=== PATIENT | female | born 1960 | race Caucasian/White ===

== ENCOUNTER → 2018-05-13 11:04 | Outpatient (CLI) | payer MEDICAID, SELFPAY ==
--- NOTE | 2018-05-13 10:54 | DI.REPORT_ITS ---
SYMPTOMS/DIAGNOSIS: S/P RT RTC REPAIR RIGHT SHOULDER: Two views. Comparison is 04/01/18. The patient is status post rotator cuff tear. The orthopedic screw appears in good position. No acute fracture or dislocation is identified. Prior AC joint resection is noted. The soft tissues are unremarkable.
== END ==
PROVIDERS: PCP Nurse Practitioner Family; Visit Provider Physician Assistant
DX: M75.121 Complete rotator cuff tear or rupture of right shoulder, not specified as traumatic (principal); Z98.890 Other specified postprocedural states
CPT/HCPCS: 73030

== ENCOUNTER 2018-08-07 00:53 | Outpatient (CLI) | payer MEDICAID, SELFPAY ==
--- NOTE | 2018-08-07 10:45 | DI.MRI_ITS ---
SYMPTOM/DIAGNOSIS: LT HIP PAIN, FAILED CONSERVATIVE TREATMENT LEFT HIP MRI: MRI examination of the hip was performed according to the usual protocol. Soft tissue structures of the pelvis internally are unremarkable with no evidence of a pelvic mass or adenopathy. No inguinal adenopathy is seen. Bony signal in the pelvis is within normal limits. The hip joints are well maintained. No femoral bony signal abnormality is seen. The ligaments, tendons and muscles show normal signal. CONCLUSION: Normal left hip MRI.
== END 2018-08-07 01:13 ==
PROVIDERS: PCP Nurse Practitioner Family; Visit Provider Student in an Organized Health Care Education/Training Program
DX: M25.552 Pain in left hip (principal)
CPT/HCPCS: 73721

== ENCOUNTER 2018-12-12 00:48 | Outpatient (CLI) | payer MEDICAID, SELFPAY ==
[2018-12-12 11:35] LABS: Hemoglobin A1C 5.8 % (4.5-6.2)
[2018-12-12 12:01] LABS: Anion Gap 10.2 mmol/L (3-11); BUN 12 mg/dL (7-18); CO2 24.8 mmol/L (21.0-32.0); CREATININE 0.77 mg/dL (0.55-1.02); Calcium 8.9 mg/dL (8.5-10.1); Chloride 104 mmol/L (98-107); Glucose 95 mg/dL (70-100); Potassium 3.7 mmol/L (3.5-5.1); Sodium 139 mmol/L (136-145); TSH 2.38 uIU/mL (0.358-3.74)
== END 2018-12-12 01:08 ==
PROVIDERS: PCP Nurse Practitioner Family; Visit Provider Internal Medicine
DX: I10 Essential (primary) hypertension (principal); R73.03 Prediabetes; E03.9 Hypothyroidism, unspecified
CPT/HCPCS: 36415; 80048; 83036; 84443

== ENCOUNTER 2018-12-20 07:59 | Outpatient (CLI) | payer MEDICAID, SELFPAY ==
--- NOTE | 2018-12-20 09:13 | HPE_ITS ---
Documented by User: Evonne Love 12/20/18 16:11 Assessment and Plan (1) Trochanteric bursitis, left hip: Current visit: No Status: Acute Plan: Reviewed and discussed surgery with patient in detail. Educated patient on surgical technique, recovery process, benefits and risks including but not limited to risk of infection, blood clot, damage to soft tissue/blood vessels/nerves in detail. Patient had opportunity to have questions answered to her satisfaction. Patient will contact office if issues arise, she will continue to be scheduled for left trochanteric bursa debridement and IT band lengthening with Dr. Perez on 12/24/17. History of Present Illness Narrative: Ms. Yi is a 58-year-old female who presents to clinic for preoperative visit for scheduled left trochanteric bursa debridement and IT band lengthening with Dr. Perez on 12/24/18. Patient has history of recalcitrant left trochanteric bursitis. Patient had MRI of her left hip which as per Dr. Perez's note on 09/04/18 showed signs of bursitis with no selwyn hip tearing; there was partial tearing of the gluteus medius tendon noted. At this point patient states she has had trochanteric bursitis of her left hip that aggravated her intermittently for years. Over the past year patient has had constant aching located on the posterior lateral aspect of her left hip has begun to ache down the lateral aspect of her leg. Pain is aggravated when laying on her side, with prolonged sitting and severely at night. Patient reports she frequently wakes up in the middle night due to her left-sided hip pain. Patient has previously attended physical therapy in the past and transitioned to home-based therapy program without improvement. She has previously tried taking ibuprofen 800 mg without improvement. Patient reports previously when she would wake up in the middle the night she had a prescription for Vicodin that she would take and which helped to provide pain relief. Patient reports she no longer has a prescription for Vicodin and that she also would experience GI upset with taking Vicodin on a regular basis. Patient has also previously had trochanteric bursal injections in clinic on 04/01/18 and 07/10/18 which unfortunately did not provide long-lasting relief. Due to patient's continued left trochanteric bursitis despite adequate trials of conservative therapies including NSAIDs, physical therapy and two corticosteroid injections she elected to proceed with surgical intervention. Pertinent Surgical Information Patient has history of cardiac catheterization at [facility] on November 06, 2017 which as per cardiology notes showed normal left main, mild diffuse disease in the LAD, normal circumflex and mild diffuse disease in the RCA that has been managed with aspirin and atorvastatin. Patient continues to have occasional atypical chest pain that lasts for approximately a minute before resolving. As per cardiology note on 12/19/18 12-lead EKG revealed normal sinus rhythm with no abnormalities. Patient was given cardiology clearance by Dr. Cody Martinez MD on 12/19/18. At that appointment Dr. Martinez recommended patient stay on aspirin and atorvastatin, however he stated if needed aspirin could be held 5-7 days prior to surgery and then resumed following surgery. Patient does have history of obstructive sleep apnea but states she does not currently use the recommended machine at night. Patient reports adhesive including Mastisol adhesive causes her to have severe rash and hives. Patient is unsure if she has reaction to SkinAffix. Review of patient's chart shows on 04/17/18 her right rotator cuff surgery was dressed with Steri-Strips and Medipore tape. Patient does not feel she had a reaction following that surgery. Review of patient's chart does not list any skin changes over her incisions; note from 06/12/18 does state there was increased sensitivity over anterior portal site but no rash/hives were mentioned. Denies past medical history of: stroke, COPD, renal issues, liver issues, hepatitis, gastrointestinal ulcers, bleeding disorders, seizures, anxiety, diabetes, autoimmune disorders Patient reports she has previously experienced nausea and vomiting following anesthesia; unable to provide more details regarding when she experienced advers e reactions. She did not experience any adverse reactions following anesthetic received from right rotator cuff surgery on 04/17/18. Denies prior complications from surgery. Review of Systems Constitutional Denies fever(s), Denies frequent falls and Denies headache(s) Eyes Denies change in vision, Denies eye discharge and Reports itchy eyes (left eye itchy for the past day) ENT Reports dizziness (Dizziness at baseline takes meclizine; denies recent change), Denies ear discharge, Denies headache(s), Denies epistaxis, Denies nasal discharge and Denies sore throat Cardiovascular Reports chest pain (history of atypical chest pain; sees cardiology-received cardiac clearance), Denies rapid heart rate, Denies irregular heart rhythm, Denies dyspnea, Denies dyspnea on exertion and Denies slow heart rate Comments: Denies any recent change in cardiac symptoms; denies ever using nitroglycerin Respiratory Reports cough (Dry cough at baseline; denies recent change), Denies excessive phlegm production, Denies dyspnea, Denies dyspnea on exertion and Denies wheezing Gastrointestinal Denies abdominal pain, Denies melena, Denies hematochezia, Denies constipation, Denies diarrhea, Denies nausea and Denies vomiting Genitourinary Denies hematuria, Denies dysuria and Denies urinary urgency Musculoskeletal Reports as per HPI, Denies numbness and Denies tingling Neurologic Reports dizziness (Dizziness at baseline takes meclizine; denies recent change), Denies frequent falls, Denies headache(s), Denies numbness and Denies tingling Psychiatric Denies anxiety and Denies depression Allergic/Immunologic Reports itchy eyes (left eye itchy for the past day) and Denies wheezing PFSH Social History Smoking/Tobacco Use Status: Former Tobacco Use Pack-years: 12 Alcohol Intake: never Drug use: Never Substance use type: does not use Household members: spouse Do you feel safe at home: Yes Do you feel safe in your relationship?: Yes Additional Social history: Quit smoking 1985 [facility] Medications Medication Instructions Recorded Confirmed Type citalopram [Celexa] 20 mg PO DAILY tab-cap 10/08/13 12/24/18 History meclizine 25 mg PO TID PRN tab-cap 10/08/13 12/24/18 History rosuvastatin [Crestor] 40 mg PO DAILY tab-cap 10/08/13 12/24/18 History topiramate 50 mg PO HS 10/08/13 12/24/18 History epinephrine 0.3 mg IJ PRN PRN #1 kit 07/21/16 12/24/18 Rx acyclovir 200 mg PO DIRECTED PRN 06/01/17 12/24/18 History sumatriptan succinate 50 mg PO DIRECTED PRN tab-cap 06/01/17 12/24/18 History levothyroxine 75 mcg PO DAILY tab-cap 06/05/17 12/24/18 History lisinopril 2.5 mg PO DAILY tab-cap 12/03/17 12/24/18 History nitroglycerin 0.4 mg SUBLINGUAL DIRECTED 12/31/17 12/24/18 History aspirin 81 mg PO DAILY tab 01/21/18 12/24/18 History acetaminophen [Acetaminophen Extra 500 mg PO Q8H PRN PRN #60 tab 04/16/18 12/24/18 Rx Strength] cetirizine 10 mg PO DAILY 12/20/18 12/24/18 History fluticasone propionate 2 spray INTRANASAL BID 12/20/18 12/24/18 History hydrocodone-acetaminophen 1 tab PO Q4H PRN #14 tab 12/24/18 Rx ibuprofen 800 mg PO Q8H PRN PRN #60 tab 12/24/18 Rx Allergies Allergy/AdvReac Type Severity Reaction Status Date / Time amoxicillin Allergy Intermediate Skin Rash Verified 12/24/18 09:33 morphine Allergy Intermediate ITCHY, SICK Verified 12/24/18 09:33 peanut Allergy Intermediate nausea Verified 12/24/18 09:33 tetrabenazine Allergy Intermediate RASH,HIVES Verified 12/24/18 09:33 adhesive AdvReac Intermediate RASH AND Verified 12/24/18 09:33 SWELLING alcohol AdvReac Intermediate RASH Verified 12/24/18 09:33 [From Mastisol Liquid Adhesive] gum mastic AdvReac Intermediate RASH Verified 12/24/18 09:33 [From Mastisol Liquid Adhesive] methyl salicylate AdvReac Intermediate RASH Verified 12/24/18 09:33 [From Mastisol Liquid Adhesive] storax AdvReac Intermediate RASH Verified 12/24/18 09:33 [From Mastisol Liquid Adhesive] tree nut AdvReac Intermediate itchy Verified 12/24/18 09:33 water eyes, scratchy throat benzoin AdvReac Mild Skin Rash Verified 12/24/18 09:33 cat dander AdvReac Mild WATERY EYES Verified 12/24/18 09:33 milk AdvReac Unknown Verified 12/24/18 09:33 pollen extracts AdvReac Unknown watery eyes Verified 12/24/18 09:33 dog dander AdvReac WATERY EYES Verified 12/24/18 09:33 RAW FRUIT Allergy Unknown Uncoded 12/20/18 11:42 DUST AdvReac Unknown Uncoded 12/20/18 11:42 Exam Const General: cooperative and no acute distress HENMT Head: normal to inspection, normocephalic and atraumatic Ears: external ears normal General nose exam: external nose normal and no nasal discharge Face and sinus: face symmetric Mouth: oral mucosae normal, lip normal, tongue normal and moist mucous membranes Teeth and gingiva: dentition normal Throat: posterior oropharynx normal Eyes General: appearance normal, both eyes and all related structures Eyelids: eyelids normal Conjunctivae: conjunctivae normal Sclera: sclerae normal Pupils: PERRL EOM: EOM intact bilaterally Other: No signs of erythema or purulent discharge noted; no crusting is present on eyelashes Neck Neck: trachea midline Carotids: normal carotid upstroke Lymphatic: no lymphadenopathy noted Resp Effort & Inspection: normal respiratory effort and able to speak in complete sentences Auscultation: clear to auscultation bilaterally, no rales, no rhonchi and no wheezes Cardio Heart Sounds: S1 normal, S2 normal, no murmurs, no rubs and no other Pulses: radial pulses present bilaterally GI Palpation: soft, no hepatosplenomegaly and nontender Auscultation: normal bowel sounds Skin General skin exam: no rashes or lesions noted Extrem Other: Left hip examination: Tenderness to palpation along greater trochanter an d along length of IT band. Documented by User: Coy Perez MD 12/24/18 14:58 [facility] Social History Smoking/Tobacco Use Status: Former Tobacco Use Pack-years: 12 Alcohol Intake: never Drug use: Never Substance use type: does not use Household members: spouse Do you feel safe at home: Yes Do you feel safe in your relationship?: Yes Additional Social history: Quit smoking 1985 Meds Home Medications Medication Instructions Recorded Confirmed Type citalopram [Celexa] 20 mg PO DAILY tab-cap 10/08/13 12/24/18 History meclizine 25 mg PO TID PRN tab-cap 10/08/13 12/24/18 History rosuvastatin [Crestor] 40 mg PO DAILY tab-cap 10/08/13 12/24/18 History topiramate 50 mg PO HS 10/08/13 12/24/18 History epinephrine 0.3 mg IJ PRN PRN #1 kit 07/21/16 12/24/18 Rx acyclovir 200 mg PO DIRECTED PRN 06/01/17 12/24/18 History sumatriptan succinate 50 mg PO DIRECTED PRN tab-cap 06/01/17 12/24/18 History levothyroxine 75 mcg PO DAILY tab-cap 06/05/17 12/24/18 History lisinopril 2.5 mg PO DAILY tab-cap 12/03/17 12/24/18 History nitroglycerin 0.4 mg SUBLINGUAL DIRECTED 12/31/17 12/24/18 History aspirin 81 mg PO DAILY tab 01/21/18 12/24/18 History acetaminophen [Acetaminophen Extra 500 mg PO Q8H PRN PRN #60 tab 04/16/18 12/24/18 Rx Strength] cetirizine 10 mg PO DAILY 12/20/18 12/24/18 History fluticasone propionate 2 spray INTRANASAL BID 12/20/18 12/24/18 History hydrocodone-acetaminophen 1 tab PO Q4H PRN #14 tab 12/24/18 Rx ibuprofen 800 mg PO Q8H PRN PRN #60 tab 12/24/18 Rx Allergies Allergy/AdvReac Type Severity Reaction Status Date / Time amoxicillin Allergy Intermediate Skin Rash Verified 12/24/18 09:33 morphine Allergy Intermediate ITCHY, SICK Verified 12/24/18 09:33 peanut Allergy Intermediate nausea Verified 12/24/18 09:33 tetrabenazine Allergy Intermediate RASH,HIVES Verified 12/24/18 09:33 adhesive AdvReac Intermediate RASH AND Verified 12/24/18 09:33 SWELLING alcohol AdvReac Intermediate RASH Verified 12/24/18 09:33 [From Mastisol Liquid Adhesive] gum mastic AdvReac Intermediate RASH Verified 12/24/18 09:33 [From Mastisol Liquid Adhesive] methyl salicylate AdvReac Intermediate RASH Verified 12/24/18 09:33 [From Mastisol Liquid Adhesive] storax AdvReac Intermediate RASH Verified 12/24/18 09:33 [From Mastisol Liquid Adhesive] tree nut AdvReac Intermediate itchy Verified 12/24/18 09:33 water eyes, scratchy throat benzoin AdvReac Mild Skin Rash Verified 12/24/18 09:33 cat dander AdvReac Mild WATERY EYES Verified 12/24/18 09:33 milk AdvReac Unknown Verified 12/24/18 09:33 pollen extracts AdvReac Unknown watery eyes Verified 12/24/18 09:33 dog dander AdvReac WATERY EYES Verified 12/24/18 09:33 RAW FRUIT Allergy Unknown Uncoded 12/20/18 11:42 DUST AdvReac Unknown Uncoded 12/20/18 11:42
== END 2018-12-20 08:19 ==
PROVIDERS: PCP Nurse Practitioner Family; Visit Provider Student in an Organized Health Care Education/Training Program
DX: M70.62 Trochanteric bursitis, left hip (principal); Z01.818 Encounter for other preprocedural examination
CPT/HCPCS: NC

== ENCOUNTER 2018-12-24 09:20 | Day surgery (SDC) | payer MEDICAID, SELFPAY ==
[2018-12-24] VITALS (10 sets, daily range): BP systolic 94–124; BP diastolic 55–80; PULSE 77–89; RESP 16–18; TEMP 35.7–36.9; O2SAT 88–96
[2018-12-24] MEDS: Lactated Ringers 1,000 ML 80 ML IV (10:03)
[2018-12-24] MEDS: Acetaminophen 500 MG TAB 1000 MG PO (11:02)
[2018-12-24] MEDS: Celecoxib 200 MG CAP 400 MG PO (11:03)
[2018-12-24] MEDS: ceFAZolin 2 GM/50 ML BAG IVPB (11:39)
[2018-12-24] MEDS: Bupivacaine 0.25% Pres-Free 30 ML VIAL (12:19)
--- NOTE | 2018-12-24 13:57 | W.PM.DSUDISC ---
Discharge Plan Disposition Patient Disposition: HOME Condition: Good Discharge Details Reason For Visit: (L) TROCH BURSITIS Attending Provider: Coy Perez Primary Care Provider: Jennifer Gallagher Home Meds and New Rx's Prescriptions: New hydrocodone-acetaminophen 5-325 mg tablet 1 tab PO Q4H PRN (Reason: pain) Qty: 14 RF: 0 Continued citalopram [Celexa] 10 MG tablet 20 mg PO DAILY RF: 0 meclizine 12.5 MG tablet 25 mg PO TID PRNRF: 0 rosuvastatin [Crestor] 20 MG tablet 40 mg PO DAILY RF: 0 topiramate 50 MG tablet 50 mg PO HS RF: 0 sumatriptan succinate 50 MG tablet 50 mg PO DIRECTED PRNRF: 0 acyclovir 200 MG capsule 200 mg PO DIRECTED PRNRF: 0 levothyroxine 75 MCG tablet 75 mcg PO DAILY RF: 0 lisinopril 2.5 MG tablet 2.5 mg PO DAILY RF: 0 aspirin 81 MG tablet,delayed release (DR/EC) 81 mg PO DAILY RF: 0 epinephrine 0.3 MG/SYR auto-injector 0.3 mg IJ PRN PRN (Reason: Anaphylaxis) Qty: 1 RF: 0 nitroglycerin 0.4 MG tablet, sublingual 0.4 mg Sublingual DIRECTED RF: 0 acetaminophen [Acetaminophen Extra Strength] 500 MG tablet 500 mg PO Q8H PRN PRNQty: 60 RF: 3 cetirizine 10 mg Tablet 10 mg PO DAILY RF: 0 fluticasone propionate 50 mcg/actuation [place],Suspension 2 spray INTRANASAL BID RF: 0 ibuprofen 800 MG tablet 800 mg PO Q8H PRN PRNQty: 60 RF: 3 Discharge Instructions Additional Instructions: Dr. Perez?s Hip Discharge Instructions Activity: You should try to take short walks a few times a day. You should use a walker or two crutches for the first 2 weeks to support the healing tissue. You should take stairs one at a time. You may walk but limit any strenuous activity especially squatting or getting up from a low chair. - Outpatient physical therapy should start at 2 weeks post-op. Dressing: Keep the surgical dressing in place for at least one week. After the first week it may be removed and replace with light gauze and tape or nothing. It may get wet after 3 days but avoid soaking the dressing. If it gets wet, just lightly pat dry. Medications: - You should take Tylenol and an anti-inflammatory Ibuprofen as your primary pain control medications - You have been prescribed a stronger pain medication Hydrocodone for breakthrough pain, take as needed as prescribed. - If you have constipation you should take Colace or Miralax (both [id number]). It takes most people 3-4 days to have a bowel movement. Follow-up: 2 weeks Referrals: Coy Preez MD [ [facility] STAFF PHYSICIAN] - Equipment/Supplies: Partial Weight Bearing Crutches Remove Dressings/Wound Care:: 72 hours Shower/Bathe:: 72 hours Diet:: As Tolerated Discharge Orders Discharge Orders: Discharge Order (Routine); Ordered 12/24/18 Ordered By: Coy Perez DS: Diagnosis Discharge Diagnosis (1) Trochanteric bursitis of right hip: Status: Chronic
--- NOTE | 2018-12-24 17:48 | NUR.NOTE ---
Pt admitted to med/surg from Day Surgery to recover and go home. Nursing Note:
--- NOTE | 2018-12-25 12:08 | ROE_ITS ---
REPORT OF OPERATIVE PROCEDURE DATE OF SURGERY December 24, 2018 PREOPERATIVE DIAGNOSIS Left recalcitrant trochanteric bursitis. POSTOPERATIVE DIAGNOSIS Left recalcitrant trochanteric bursitis. SURGERY Surgical debridement of the left trochanteric bursa with IT band tenotomy. SURGEON Coy Perez M.D. PHOTOGRAPHIC EQUIPMENT TECHNICIAN Devin Jung PA-C ANESTHESIA Spinal. ESTIMATED BLOOD LOSS 50 cc COMPLICATIONS None. DISPOSITION The patient was awakened from anesthesia and taken the Post Anesthesia Care Unit in stable condition. INDICATION FOR PROCEDURE Anay is a 58-year old who has had persistent left trochanteric bursitis. She has failed conservative t reatment options including physical therapy on multiple occasions. She has had multiple injections, w hich have provided her relief, but only short term. She continued to have limitations on her daily fu nction due to this pain. She failed all conservative treatment options and desired for something more definitive. I reviewed the treatment options with her. Surgical intervention was discussed. I review ed the risks of the procedure to include, bleeding, infection, pain, stiffness, damage to nerve and v essels, damage to muscles and tendons, weakness, need for repeat procedures. Despite these risks, pranay thompson elected to proceed. PROCEDURE DESCRIPTION Anay was greeted in the Preoperative Holding Area. Her identity was confirmed, and the correct side w as identified and marked. The consent was reviewed with the patient and signed. The history and phys ical were updated. She was taken back to the Operating Room and placed in the supine position. Prior to starting the case, a spinal anesthetic was administered. Once the spinal had a chance to set up, she was given some sedation and then placed into the right lateral decubitus position for the left hi p surgery. Prophylactic antibiotics in the form of cefazolin were given. The left hip was then prepped with Chlo raPrep and draped in standard fashion. A timeout was performed for safe surgery. An approximately 12-cm incision was made overlying the greater trochanter and the posterior hip. This was incised sharply through the skin and the fat down towards the IT band and the gluteus fascia. On ce this was identified and marked, an incision within the iliotibial band and fascia was created. Att ention was turned to the posterior aspect of the hip. There was a significant amount of bursitis in t he area. This was reflected and dissected sharply. Once this was fully removed, the abductor tendons were able to be identified. There was no apparent tearing of the abductor tendons. There was some kira ny prominence over the posterior aspect of the greater trochanter, which was smoothed with a rongeur. The under surface of the abductor tendons were also palpated and identified and I saw no signs of ru pture. This wound was then thoroughly irrigated. The IT band was then re-approximated with #1-Vicryls . After reapproximation, the point of maximal tightness overlying the area of the trochanter at the l evel of the vastus ridge was then incised transversely. This allowed the IT band to separate approxi mately 1.5 cm. It was still held in place by muscular attachments. The wound was once again irrigated . The deep tissues were injected with 10 cc of Exparel, along with 10 cc of 0.5% bupivacaine. The cris p tissues were closed with #0-Vicryl, followed by #2-0 Vicryl, and the skin was closed with a runnin g Monocryl in a subcuticular fashion. A Mepilex dressing was applied. She was then transitioned back to supine position over to the hospital bed. She suffered no notable c omplications. She tolerated the procedure well. She was taken to the Day Surgery Area in stable condi tion.
== END 2018-12-24 18:55 | disposition home or self-care (01) ==
LOC: SUR 13:57 → MS 17:45
PROVIDERS: PCP Nurse Practitioner Family; Visit Provider Student in an Organized Health Care Education/Training Program
PROC: (CPT 27062; principal; 2018-12-24 10:45)
PROC: (CPT 27062; 2018-12-24 10:45)
DX: M70.62 Trochanteric bursitis, left hip (principal); G47.33 Obstructive sleep apnea (adult) (pediatric)
CPT/HCPCS: 27062; 27305; J0690; J1100; J1200; J1885; J2250; J2405; J3010; J3490

== ENCOUNTER 2019-02-12 01:55 | Outpatient (CLI) | payer MEDICAID, SELFPAY ==
[2019-02-12 10:50] LABS: Cholesterol 156 mg/dL (50-200); HDL Cholesterol 39 mg/dL (40-60); LDL CHOLESTEROL 93 mg/dL (<100); Triglyceride 111 mg/dL (30-150)
[2019-02-13 09:58] LABS: Hepatitis C Ab w Rflx HCV PCR Negative (NEGAT)
== END 2019-02-12 02:15 ==
PROVIDERS: PCP Internal Medicine; Visit Provider Internal Medicine
DX: Z11.59 Encounter for screening for other viral diseases (principal); E78.5 Hyperlipidemia, unspecified
CPT/HCPCS: 36415; 80061; 83721; 86803

== ENCOUNTER 2019-03-04 00:16 | Outpatient (CLI) | payer MEDICAID, SELFPAY ==
--- NOTE | 2019-03-04 15:50 | DI.DEXA_ITS ---
SYMPTOM/DIAGNOSIS: SCREENING FOR OSTEOPOROSIS, Z13.820 DEXA SCAN: A scanogram is unremarkable. For the lumbar spine, a T score of -1.0 and a Z score of 0.4 are within the normal range. For the left forearm, a T score of -0.3 and a Z score of 0.8 are also within the normal range.
== END 2019-03-04 00:36 ==
PROVIDERS: PCP Internal Medicine; Visit Provider Internal Medicine
DX: Z13.820 Encounter for screening for osteoporosis (principal)
CPT/HCPCS: 77080

== ENCOUNTER 2019-08-04 14:30 | Outpatient (CLI) | payer MEDICAID, SELFPAY ==
--- NOTE | 2019-08-04 14:20 | DI.RAD_ITS ---
EXAM: XR SHOULDER LT COMPLETE 2+V INDICATION: left shoulder pain. COMPARISON: RIGHT SHOULDER COMPLETE from 05/13/2018 TECHNIQUE: 2D digital imaging was performed. FINDINGS: The AC joint appears intact. There is no significant spurring. The glenohumeral joint is well maint ained. There is some spurring at the inferior glenoid. No tendon or joint space calcifications are seen. IMPRESSION: Mild degenerative changes of the glenohumeral joint.
== END 2019-08-04 14:50 ==
PROVIDERS: PCP Internal Medicine; Visit Provider Physician Assistant
DX: M25.512 Pain in left shoulder (principal); M19.012 Primary osteoarthritis, left shoulder
CPT/HCPCS: 73030

== ENCOUNTER 2019-09-09 01:15 | Outpatient (CLI) | payer MEDICAID, SELFPAY ==
--- NOTE | 2019-09-09 11:30 | DI.MRI_ITS ---
EXAM: MR UPPER JOINT LT WO CLINICAL HISTORY: PAIN AND WEAKNESS OF LEFT SHOULDER, TENDINITIS OF LEFT ROTATOR CUFF, M75.82. TECHNIQUE: Multiplanar multisequence MRI was performed. COMPARISON: No previous for comparison FINDINGS: Supraspinatus tendon: There does appear to be a large articular surface tear of the supraspinatus ten don anteriorly. Infraspinatus tendon: Unremarkable. Teres minor tendon: Unremarkable. Subscapularis tendon: Unremarkable. Biceps tendon: Normal appearance and location. Labrum: Abnormal signal and size of the posterior superior labrum. This may represent degeneration. Tear cannot be excluded. Bones: Mild degenerative changes are seen at the acromioclavicular joint and the greater tuberosity. No evidence of an occult fracture or avascular necrosis. Joint: The articular cartilage appears unremarkable. Muscles: No evidence of significant muscular fatty atrophy. Soft tissues: No soft tissue mass or focal fluid collection is appreciated. IMPRESSION: 1. Large articular surface tear of the supraspinatus tendon anteriorly. 2. Degeneration versus tear of the superior posterior labrum. 3. Degenerative changes in the left shoulder.
== END 2019-09-09 01:35 ==
PROVIDERS: PCP Internal Medicine; Visit Provider Student in an Organized Health Care Education/Training Program
DX: M25.512 Pain in left shoulder (principal); M75.82 Other shoulder lesions, left shoulder; M75.102 Unspecified rotator cuff tear or rupture of left shoulder, not specified as traumatic; M19.012 Primary osteoarthritis, left shoulder
CPT/HCPCS: 73221

== ENCOUNTER 2019-10-16 01:29 | Outpatient (CLI) | payer MEDICAID, SELFPAY ==
--- NOTE | 2019-10-16 | DI.RAD_ITS ---
EXAM: RF JOINT INJECTION FLUORO GUID CLINICAL HISTORY: PAIN- L SHOULDER,tendonitis lt rotator cuff,m75.82,injection under fluoro TECHNIQUE: COMPARISON: No exams were available for comparison FINDINGS: Fluoroscopy was utilized by Dr. Perez during left glenohumeral joint injection. Hard copy shows i ntra-articular injection. IMPRESSION:
--- NOTE | 2019-10-16 13:21 | W.PROCNOTE ---
Date of service: 10/16/19 Time of Service: 13:21 Procedure Note Date of procedure: 10/16/19 Procedure: Left Shoulder Injection Surgeon/Proceduralist/Physician: Coy Perez Procedure Diagnosis: Left Partial Rotator Cuff Tear Procedure Indications: Anay has had persistent pain of the LEFT shoulder. Noninvasive measures have been tried. To serve as both diagnostic and therapeutic, an injection under fluoroscopy was recommended. I had discussed the risks of the procedure and the patient elected to proceed. Procedure Description: Anay was greeted in the flouroscopy room. The correct side was identified and the consent was reviewed with the patient and signed. The patient was then placed in the supine position on the fluoroscopy table. The LEFT shoulder was then prepped with Chloraprep. The anterior injection starting point was identiifed by bony landmarks and fluoroscopy. The skin and soft tissue in the tract of the injection was anesthetized with 1% Lidocaine. A spinal needle was then inserted deep into the shoulder joint at the level of the recess between the glenoid and superior humeral head. A small amount of Omnipaque solution was injected to confirm intraarticular placement. Once confirmed, the shoulder was injected with 4cc of 0.5% Bupivicaine and 80mg of Depo-Medrol. A bandaid was placed on the injection site. The patient tolerated the procedure well and noted improvement in pre-injection pain.
[2019-10-16] MEDS: Bupivacaine 0.5% Pres-Free 10 ML VIAL 5 ML IJ (14:31)
[2019-10-16] MEDS: Omnipaque 300 MG/ML 10 ML BTL IJ (14:31)
[2019-10-16] MEDS: methylPREDNISolone ACETATE 80 MG/ML VIAL IM (14:32)
== END 2019-10-16 01:49 ==
PROVIDERS: PCP Internal Medicine; Visit Provider Student in an Organized Health Care Education/Training Program
DX: M25.512 Pain in left shoulder (principal); M75.82 Other shoulder lesions, left shoulder; M75.112 Incomplete rotator cuff tear or rupture of left shoulder, not specified as traumatic
CPT/HCPCS: 20610; 77002; J1040

== ENCOUNTER 2020-03-19 07:28 | Outpatient (CLI) | payer MEDICAID, SELFPAY ==
[2020-03-19 22:28] LABS: COVID-19 RT-PCR UVMMC Result Negative (Negative)
== END 2020-03-19 07:48 ==
PROVIDERS: PCP Internal Medicine; Visit Provider Student in an Organized Health Care Education/Training Program
DX: Z11.51 Encounter for screening for human papillomavirus (HPV) (principal); Z01.818 Encounter for other preprocedural examination
CPT/HCPCS: U0003

== ENCOUNTER 2020-03-23 08:19 | Day surgery (SDC) | payer MEDICAID, SELFPAY ==
[2020-03-23 08:38] VITALS: BP 138/81; PULSE 72; RESP 16; TEMP 36.3; O2SAT 98
--- NOTE | 2020-03-23 09:26 | PDOC.DSDIS_ITS ---
Discharge Plan Disposition Patient Disposition: HOME Condition: Good Discharge Details Reason For Visit: Bilateral Carpal Tunnel Syndrome Attending Provider: Coy Perez Primary Care Provider: Kerry Ascencio Home Meds and New Rx's Prescriptions: Continued ibuprofen 800 mg tablet 800 mg PO Q8H PRN PRN (Reason: pain) Qty: 60 RF: 3 citalopram [Celexa] 10 MG tablet 20 mg PO DAILY RF: 0 meclizine 12.5 MG tablet 25 mg PO TID PRNRF: 0 rosuvastatin [Crestor] 20 MG tablet 40 mg PO DAILY RF: 0 topiramate 50 MG tablet 50 mg PO HS RF: 0 sumatriptan succinate 50 MG tablet 50 mg PO DIRECTED PRNRF: 0 acyclovir 200 MG capsule 200 mg PO DIRECTED PRNRF: 0 levothyroxine 75 MCG tablet 75 mcg PO DAILY RF: 0 lisinopril 2.5 MG tablet 2.5 mg PO DAILY RF: 0 aspirin 81 MG tablet,delayed release (DR/EC) 81 mg PO DAILY RF: 0 epinephrine 0.3 MG/SYR auto-injector 0.3 mg IJ PRN PRN (Reason: Anaphylaxis) Qty: 1 RF: 0 nitroglycerin 0.4 MG tablet, sublingual 0.4 mg Sublingual DIRECTED RF: 0 cetirizine 10 mg Tablet 10 mg PO DAILY RF: 0 sennosides [senna] 8.6 mg Tablet 8.6 mg PO DAILY RF: 0 acetaminophen [Tylenol Arthritis Pain] 650 mg tablet extended release 650 mg PO Q8H Qty: 60 RF: 0 Changed tramadol 50 mg tablet 50 mg PO Q6H PRN PRN (Reason: pain) Qty: 12 RF: 0 celecoxib 100 mg capsule 100 mg PO BIDWMEAL Qty: 60 RF: 0 Discharge Instructions Stand Alone Forms: Chris Jose Tunnel Release Referrals: Coy Perez MD [ [facility] STAFF PHYSICIAN] - Activity:: Elevate Remove Dressings/Wound Care:: 72 hours Shower/Bathe:: 72 hours Diet:: As Tolerated Discharge Orders Discharge Orders: Discharge Order (Routine); Ordered 03/23/20 Ordered By: Coy Perez DS: Diagnosis Discharge Diagnosis (1) Left carpal tunnel syndrome: Status: Acute (2) Right carpal tunnel syndrome: Status: Acute
[2020-03-23] MEDS: Lactated Ringers 1,000 ML 80 ML IV (09:27)
[2020-03-23] MEDS: ceFAZolin 2 GM/50 ML BAG IVPB (09:27)
--- NOTE | 2020-03-23 09:56 | NUR.NOTE ---
Nursing Note: Right ECTR begun @ 0957. Esmark tourniquet on right arm by Dr. Perez.
[2020-03-23] MEDS: Sodium Bicarbonate 50 MEQ/50 ML VIAL (10:19)
[2020-03-23 10:26] VITALS: BP 116/64; PULSE 71; RESP 20; O2SAT 93
--- NOTE | 2020-03-23 10:27 | W.PM.OP ---
Date of service: 03/23/20 Time of Service: 10:28 Operative Note Operative Note DATE OF PROCEDURE: 03/23/20 PRE-OP DIAGNOSIS: Bilateral Carpal Tunnel Syndrome POST-OP DIAGNOSIS: same PROCEDURE: Bilateral Endoscopic Carpal Tunnel Release SURGEON: Coy Perez ANESTHESIA: JAIRO ESTIMATED BLOOD LOSS: 0 PATHOLOGY: none sent TOURNIQUET TIME: 10 COMPLICATIONS: None Patient was transported to: same day Patient's condition: stable Indications: I have seen Anay in clinic for symptoms of carpal tunnel syndrome. The numbness, tingling, and pain limited function. Clinical exam findings with nerve conduction tests confirmed the diagnosis of bilateral carpal tunnel syndrome. Nonoperative measures such as bracing, time, activity modifications had been tried but disability and pain persisted. I discussed carpal tunnel release with the patient. I reviewed the risks of the procedure to include, but not limited to, bleeding, infection, pain, stiffness, incomplete release, damage to nerves or vessels, persistent numbness, recurrence. Despite these risks, the patient elected to proceed. Findings: There was tightened carpal tunnel. This was dilated and released successfully with the endoscopic with increased space within the tunnel. The antebrachial fascia was released proximally freeing the median nerve at the wrist. This was done first on the left and then completed for the right side. Procedure Description: Anay was greeted in the preoperative holding area where the correct side was identified and marked. The consent was reviewed with the patient and signed. The history and physical was updated. All questions were answered. Anay was taken back to the operating room. The patient was placed into the supine position on the operating room table with the left arm on an arm board to start. A nonsterile tourniquet was placed high onto the arm. All bony prominences were well padded. Prophylactic antibiotics in the form of Cefazolin were administered. The left arm was then prepped with Chloraprep and draped in a standard fashion with stockinette and extremity drape. A timeout to confirm correct identity, side and site, procedure, allergies, anesthesia, and medical concerns was performed. The surgical site was marked in the volar wrist creases in line with the radial border of the fourth ray. This area was anesthetized with approximately 6cc of 1% Lidocaine. The limb was then exsanguinated with an Esmarch. The skin was incised with a 15 blade, approximately 1cm. The skin only was cut and the deeper tissue was dissected bluntly with a tenotomy scissor, avoiding passing nerve and venous structures. The fascia was penetrated and opened bluntly. A two-prong skin hook was placed under this proximal fascial edge. A series of hamate finders were used to identify and dilate the carpal tunnel. Synovial elevator was used to free synovial attachments to the underside of the transverse carpal ligament. My thumb was kept in the palm to charmaine the distal extent of the carpal tunnel and correctly position the hand. The Microaire endoscope was inserted without difficulty and without resistance. Excellent visualization showed horizontally running fibers of the transverse carpal ligament (TCL). The distal extent of the TCL was visualized and the end of the scope palpated with the thumb. The blade was elevated and withdrawn from distal to proximal. The TCL was split into two flaps. The endoscope was reinserted to confirm complete release and any remnant ligament was incised. The scope was withdrawn and the proximal aspect of the carpal tunnel was grossly inspected and appeared release with the median nerve visible. The antebrachial fascia at the level of the wrist was then freed from the overlying skin and then the underlying median nerve with blunt dissection. This was transected longitudinally for about 3cm proximal to the wrist incision. The wound was then irrigated with easy flow of irrigant distally and proximally. The incision was closed with a single 4-0 Nylon suture. The wound was dressed with Xeroform, Gauze, Kerlix. The tourniquet was deflated with the initial dressing and held with some pressure. Blood flow returned easily to all digits with capillary refill less than 2 seconds. While keeping the back table and scope equipment sterile, the right arm was addressed. This was prepped with Chlorprep and draped with an extremity drape. The surgical site was marked in the volar wrist creases in line with the radial border of the fourth ray. This area was anesthetized with approximately 6cc of 1% Lidocaine. The limb was then exsanguinated with an Esmarch and an Esmarch tourniquet was applied for 5 minutes. The skin was incised with a 15 blade, approximately 1cm. The skin only was cut and the deeper tissue was dissected bluntly with a tenotomy scissor, avoiding passing nerve and venous structures. The fascia was penetrated and opened bluntly. A two-prong skin hook was placed under this proximal fascial edge. A series of hamate finders were used to identify and dilate the carpal tunnel. Synovial elevator was used to free synovial attachments to the underside of the transverse carpal ligament. My thumb was kept in the palm to charmaine the distal extent of the carpal tunnel and correctly position the hand. The Microaire endoscope was inserted without difficulty and without resistance. Excellent visualization showed horizontally running fibers of the transverse carpal ligament (TCL). The distal extent of the TCL was visualized and the end of the scope palpated with the thumb. The blade was elevated and withdrawn from distal to proximal. The TCL was split into two flaps. The endoscope was reinserted to confirm complete release and any remnant ligament was incised. The scope was withdrawn and the proximal aspect of the carpal tunnel was grossly inspected and appeared release with the median nerve visible. The antebrachial fascia at the level of the wrist was then freed from the overlying skin and then the underlying median nerve with blunt dissection. This was transected longitudinally for about 3cm proximal to the wrist incision. The wound was then irrigated with easy flow of irrigant distally and proximally. The incision was closed with a single 4-0 Nylon suture. The wound was dressed with Xeroform, Gauze, Kerlix and Ruel. The Esmarch tourniquet was deflated. Blood flow returned easily to all digits with capillary refill less than 2 seconds. An RUEL wrap was applied to the right side. The patient tolerated the procedure well and was returned to the Same Day Surgery area in a stable condition suffering no known complication.
[2020-03-23 10:45] VITALS: BP 126/86; PULSE 70; RESP 20; TEMP 36.1; O2SAT 95
[2020-03-23 11:05] VITALS: BP 131/71; PULSE 67; RESP 20; TEMP 36; O2SAT 93
== END 2020-03-23 12:08 | disposition home or self-care (01) ==
PROVIDERS: PCP Internal Medicine; Visit Provider Student in an Organized Health Care Education/Training Program
PROC: 01N54ZZ Release Median Nerve, Percutaneous Endoscopic Approach (ICD-10-PCS; CPT 29848; principal; 2020-03-23 09:45)
DX: G56.03 Carpal tunnel syndrome, bilateral upper limbs (principal); I10 Essential (primary) hypertension; I25.10 Atherosclerotic heart disease of native coronary artery without angina pectoris; G47.33 Obstructive sleep apnea (adult) (pediatric); K21.9 Gastro-esophageal reflux disease without esophagitis
CPT/HCPCS: 29848; J0690; J2001

== ENCOUNTER 2020-04-19 11:12 | Outpatient (CLI) | payer MEDICAID, SELFPAY ==
--- NOTE | 2020-04-19 09:45 | DI.RAD_ITS ---
EXAM: XR WRIST LT COMP NAVICULAR CLINICAL HISTORY: left wrist injury TECHNIQUE: COMPARISON: No exams were available for comparison FINDINGS: Four views obtained. Carpal alignment appears within normal limits. There is no evidence of fractur e. IMPRESSION:
== END 2020-04-19 11:32 ==
PROVIDERS: PCP Internal Medicine; Referring Provider Internal Medicine; Visit Provider Physician Assistant
DX: S69.92XA Unspecified injury of left wrist, hand and finger(s), initial encounter (principal)
CPT/HCPCS: 73110

== ENCOUNTER 2020-04-24 07:15 | Outpatient (CLI) | payer MEDICAID, SELFPAY ==
[2020-04-25 17:54] LABS: COVID-19 RT-PCR Result NEGATIVE (Negative)
== END 2020-04-24 07:35 ==
PROVIDERS: PCP Internal Medicine; Visit Provider Student in an Organized Health Care Education/Training Program
DX: M75.112 Incomplete rotator cuff tear or rupture of left shoulder, not specified as traumatic (principal)
CPT/HCPCS: U0003

== ENCOUNTER 2020-04-28 07:58 | Day surgery (SDC) | payer MEDICAID, SELFPAY ==
[2020-04-28] VITALS (8 sets, daily range): BP systolic 98–141; BP diastolic 56–94; PULSE 55–74; RESP 18–23; TEMP 36.1–36.6; O2SAT 94–98
--- NOTE | 2020-04-28 07:48 | W.PM.DSUDISC ---
Discharge Plan Disposition Patient Disposition: HOME Condition: Good Discharge Details Reason For Visit: Left Rotator Cuff Repair Attending Provider: Coy Perez Primary Care Provider: Kerry Ascencio Home Meds and New Rx's Prescriptions: New acetaminophen 500 mg tablet 1,000 mg PO Q8H PRN (Reason: pain) Qty: 90 RF: 3 hydromorphone 2 mg tablet 2 mg PO Q6H PRN PRN (Reason: pain) Qty: 12 RF: 0 ibuprofen 600 mg tablet 600 mg PO TID PRNQty: 90 RF: 3 Continued citalopram [Celexa] 10 MG tablet 20 mg PO DAILY RF: 0 meclizine 12.5 MG tablet 25 mg PO TID PRNRF: 0 rosuvastatin [Crestor] 20 MG tablet 40 mg PO DAILY RF: 0 topiramate 50 MG tablet 50 mg PO HS RF: 0 sumatriptan succinate 50 MG tablet 50 mg PO DIRECTED PRNRF: 0 acyclovir 200 MG capsule 200 mg PO DIRECTED PRNRF: 0 levothyroxine 75 MCG tablet 75 mcg PO DAILY RF: 0 lisinopril 2.5 MG tablet 2.5 mg PO DAILY RF: 0 aspirin 81 MG tablet,delayed release (DR/EC) 81 mg PO DAILY RF: 0 epinephrine 0.3 MG/SYR auto-injector 0.3 mg IJ PRN PRN (Reason: Anaphylaxis) Qty: 1 RF: 0 nitroglycerin 0.4 MG tablet, sublingual 0.4 mg Sublingual DIRECTED RF: 0 cetirizine 10 mg Tablet 10 mg PO DAILY RF: 0 sennosides [senna] 8.6 mg Tablet 8.6 mg PO DAILY RF: 0 Discontinued ibuprofen 800 mg tablet 800 mg PO Q8H PRN PRN (Reason: pain) Qty: 60 RF: 3 tramadol 50 mg tablet 50 mg PO Q6H PRN PRN (Reason: pain) Qty: 12 RF: 0 acetaminophen [Tylenol Arthritis Pain] 650 mg tablet extended release 650 mg PO Q8H Qty: 60 RF: 0 celecoxib 100 mg capsule 100 mg PO BIDWMEAL Qty: 60 RF: 0 Discharge Instructions Stand Alone Forms: Chris Kapadia w/RCR Referrals: Coy Perez MD [ [facility] STAFF PHYSICIAN] - Equipment/Supplies: Sling Activity:: Stay in sling except for hygiene and pendulums Remove Dressings/Wound Care:: 72 hours Shower/Bathe:: 72 hours Diet:: As Tolerated Discharge Orders Discharge Orders: Discharge Order (Routine); Ordered 04/28/20 Ordered By: Cyo Perez DS: Diagnosis Discharge Diagnosis (1) Incomplete tear of left rotator cuff: Status: Acute
[2020-04-28] MEDS: Lactated Ringers 1,000 ML 80 ML IV (08:45)
[2020-04-28] MEDS: Bupivacaine LIPOSOME/PF 133 MG/10 ML VIAL IJ (10:10)
[2020-04-28] MEDS: Bupivacaine 0.5% Pres-Free 30 ML VIAL (10:10)
[2020-04-28] MEDS: ceFAZolin 2 GM/50 ML BAG IVPB (10:46)
[2020-04-28] MEDS: EPINEPHrine 1 MG/ML AMP pres-free (11:15)
--- NOTE | 2020-04-28 13:14 | W.PM.OP ---
Date of service: 04/28/20 Time of Service: 13:14 Operative Note Operative Note DATE OF PROCEDURE: 04/28/20 PRE-OP DIAGNOSIS: Left Rotator Cuff Tear and AC Arthritis POST-OP DIAGNOSIS: same PROCEDURE: - Mini-Open Distal Clavicle Excision - Arthroscopic Rotator Cuff Repair SURGEON: Coy Perez CYBER SECURITY ENGINEER: Emmy Liao ANESTHESIA: GETA and regional ESTIMATED BLOOD LOSS: 20 PATHOLOGY: none sent TOURNIQUET TIME: 0 COMPLICATIONS: None Patient was transported to: PACU Patient's condition: stable Indications: I have seen Anay in clinic for a painful shoulder. Pathology was confirmed based on MRI and exam findings. Nonoperative measures were exhausted but disability and pain persisted. I discussed shoulder arthroscopy and procedures. I reviewed the risks of the procedures to include, but not limited to, bleeding, infection, pain, stiffness, damage to nerves or vessels, recurrence, hardware failure, blood clot. Despite these risks, the patient elected to proceed. Findings: There were signs of arthrosis of the distal clavicle; a 1cm wedge was resected A diagnostic arthroscopy was performed with the following findings: Articular Side - Glenohumeral Joint: No significant arthritis - Labrum: Some fraying at the biceps anchor - Cuff: Tearing within the crescent of the anterior supraspinatus footprint, less than 1cm wide - Biceps: tearing of the tendon into the anchor Subacromial Side - Bursal: thickened bursa, complete supra tear - Rotator Cuff: tear communicating to articular sided tear - No significant anterolateral spur Procedure Description: Anay was greeted in the preoperative holding area where the correct side was identified and marked. The consent was reviewed with the patient and signed. The history and physical was updated. All questions were answered. Anay was taken back to the PACU for administration of an intrascalene nerve block. She was then taken to the operating room. The patient was placed into the supine position on the operating room table. A general anesthetic was administered. Anay was then positioned in the beach chair position. All bony prominences were well padded. The head was placed in a foam art department head in a neutral position. Prophylactic antibiotics in the form of cefazolin were administered. The left arm/shoulder was then prepped with Chloraprep and draped in a standard fashion with stockinette and shoulder drape. A timeout to confirm correct identity, side and site, procedure, allergies, anesthesia, and medical concerns was performed. The arm was placed into a pneumatic garcia, [id number]. The distal clavicle was approached through a 2 and half centimeter incision within Shad's lines. This was made overlying the AC joint. The skin was incised sharply. The deeper tissues dissected with electrocautery. The clavipectoral fascia was identified and incised longitudinally off of the distal clavicle and onto the acromion. This was reflected subperiosteally to expose the distal clavicle and the AC joint. With adequate exposure a 1 cm bony resection was made using an oscillating saw. This is angled posteriorly to avoid any posterior impingement. Once it was fully resected, it was inspected to make sure it is of adequate width. A rasp was used to smooth the bony edges inferiorly and posteriorly primarily. A small amount of bone wax was placed on the end of the distal clavicle. The wound was thoroughly irrigated. There is no active bleeding. The clavipectoral fascia was then closed with a 0 Vicryl in a watertight fashion. The subcutaneous tissues were then reapproximated with a 2-0 Vicryl. The shoulder arthroscopy was then performed. The glenohumeral joint was injected with 20 cc of normal saline with good flow back. A standard posterior portal was made and the joint was entered atraumatically with a blunt arthroscope. Once inside we had good visualization of the structures of the glenohumeral joint. An anterior portal was established with spinal needle localization. A 6.5 mm cannula was inserted. A probe was then used to perform a diagnostic arthroscopy. There is noted to be no significant cartilage damage of the glenoid humeral joint. The labrum was frayed at the anchor but otherwise intact anteriorly and posteriorly. There were no loose bodies in the inferior pouch. The superior rotator cuff was attached to the tuberosity except for small portion of the anterior aspect of the crescent where there is clear tearing off of the footprint. The biceps tendon was torn along its course within the joint and at the anchor. The subscapularis was intact. A biceps tenotomy was performed with electrocautery device. The fraying of the labrum was debrided with electrocautery and a shaver. The undersurface of the rotator cuff which had some inflammatory changes was also debrided gently. The torn rotator cuff within the crescent at the level of footprint was also debrided with a shaver which fully detailed the crescent type tear of the rotator cuff. The arthroscope was then inserted into the subacromial space. The 6.5 mm cannula was placed lateral to the CA ligament. A complete bursectomy is performed anteriorly, posteriorly, and laterally with electrocautery and shaver. This had excellent exposure of the rotator cuff. The bursal side rotator cuff was inspected fully and it showed a full-thickness component to the rotator cuff in the anterior aspect of the insertion of the supraspinatus. There was no significant anterolateral spur. Using a spinal needle two lateral portals were established. The anterior lateral on the viewing portal and the posterior lateral of the working portal. Then debrided the rotator cuff tear back to healthy-appearing tissue. The footprint was also debrided down to some bleeding bone with a shaver. The width of the tear was 6 to 7 mm but full-thickness. I then placed a single Mytec Healix 4.5 mm anchor at the level of the articular margin. This was positioned with a spinal needle and then the tract was prepared with an awl and then the anchor was inserted without difficulty. 2 horizontal mattress sutures were then placed into the rotator cuff tendon. One was placed anteriorly most was posteriorly from this anchor site. Once these were placed they were tied in the neatly approximated the rotator cuff tendon down to the footprint. There was some tendon edge still exposed. However, my concern was for available real estate the place lateral row anchors with such a small anterior tear. The tear repair was probed and there is no gapping of the footprint and therefore a meter only repair was performed. The scope equipment was removed from the shoulder. Excess fluid was evacuated. The portal sites were closed with 3-0 Monocryl. The wounds were dressed with Steri-Strips, 4 x 4's, ABDs, Medipore tape. A sling was applied. The patient tolerated the procedure well and was returned to the PACU in a stable condition suffering no known complication.
[2020-04-28] MEDS: Bupivacaine 0.25% Pres-Free 10 ML VIAL (14:28)
== END 2020-04-28 15:40 | disposition home or self-care (01) ==
LOC: SUR 07:58
PROVIDERS: PCP Internal Medicine; Visit Provider Student in an Organized Health Care Education/Training Program
PROC: (CPT 29827; principal; 2020-04-28 10:15)
PROC: (CPT 23120; 2020-04-28 10:15)
DX: M75.112 Incomplete rotator cuff tear or rupture of left shoulder, not specified as traumatic (principal); M19.012 Primary osteoarthritis, left shoulder; G89.18 Other acute postprocedural pain
CPT/HCPCS: 29827; 23120; 76942; L3670; J0171; J0360; J0690; J1100; J1885; J2250; J2405; J2704

== ENCOUNTER 2020-07-29 00:49 | Outpatient (CLI) | payer MEDICAID, SELFPAY ==
--- NOTE | 2020-07-29 07:45 | DI.MRI_ITS ---
EXAM: MR UPPER JOINT LT WO CLINICAL HISTORY: L SHOULDER PAIN,arthritis lt ac joint,lt rotator cuff tear,m19.012,m75.122. TECHNIQUE: Multiplanar multisequence MRI was performed. COMPARISON: No exams were available for comparison FINDINGS: BONES: There is no fracture or contusion pattern. JOINTS: The acromioclavicular joint is normal. The glenohumeral joint is normal. TENDONS: Supraspinatus: There is hyperintense signal seen in the supraspinatus tendon suspicious for partial t ear. Infraspinatus: Unremarkable. Subscapularis: Tendinosis of the subscapularis tendon is present. Teres Minor: Unremarkable. Biceps and [place]: The biceps tendon is seen at the level of the bicipital groove. MUSCLES: There is mild fatty atrophy of both the infraspinatus and teres minor muscles. GLENOID LABRUM: Unremarkable on this noncontrast examination. SOFT TISSUES: There is mild edema seen in the soft tissues superior to this acromioclavicular joint w hich may be postsurgical. LIGAMENTS: Coracoclavicular ligament appears grossly unremarkable. OTHER: There is fluid seen in subacromial subdeltoid bursa. There is artifact in the soft tissues co nsistent with prior rotator cuff for tear. IMPRESSION: 1. Hyperintense signal seen in the supraspinatus tendon suspicious for partial tear. 2. Postsurgical changes in the shoulder resulting in artifact near the acromioclavicular joint and th e humeral head. 3. Tendinosis of the subscapularis tendon. 4. Fluid in the subacromial subdeltoid bursa. DATA REPOSITORY:
== END 2020-07-29 01:09 ==
PROVIDERS: PCP Internal Medicine; Visit Provider Student in an Organized Health Care Education/Training Program
DX: M19.012 Primary osteoarthritis, left shoulder; M25.512 Pain in left shoulder
CPT/HCPCS: 73221

== ENCOUNTER 2020-08-06 09:53 | Outpatient (CLI) | payer MEDICAID, SELFPAY ==
[2020-08-08 11:46] LABS: SARS-CoV-2 RNA Not Detected (NotDetected); SARS-CoV-2 RNA Source Nasal/Nares
== END 2020-08-06 10:13 ==
PROVIDERS: PCP Internal Medicine; Visit Provider Student in an Organized Health Care Education/Training Program
DX: Z01.818 Encounter for other preprocedural examination (principal); M19.011 Primary osteoarthritis, right shoulder; M75.102 Unspecified rotator cuff tear or rupture of left shoulder, not specified as traumatic
CPT/HCPCS: U0003

== ENCOUNTER 2020-08-11 08:01 | Day surgery (SDC) | payer MEDICAID, SELFPAY ==
[2020-08-11] VITALS (10 sets, daily range): BP systolic 115–133; BP diastolic 61–98; PULSE 73–80; RESP 10–22; TEMP 36–36.6; O2SAT 92–100
[2020-08-11] MEDS: Lactated Ringers 1,000 ML 80 ML IV (09:04)
[2020-08-11] MEDS: Bupivacaine 0.5% Pres-Free 30 ML VIAL (09:13)
[2020-08-11] MEDS: Bupivacaine LIPOSOME/PF 133 MG/10 ML VIAL IJ (09:13)
--- NOTE | 2020-08-11 09:25 | W.PM.DSUDISC ---
Discharge Plan Disposition Patient Disposition: HOME Condition: Good Discharge Details Reason For Visit: Left rotator cuff repair Attending Provider: Coy Perez Primary Care Provider: Kerry Ascencio Home Meds and New Rx's Prescriptions: New ibuprofen 600 mg tablet 600 mg PO TID PRN (Reason: pain) Qty: 30 RF: 0 acetaminophen 500 mg capsule 500 mg PO Q4H PRN (Reason: pain) Qty: 30 RF: 0 hydromorphone 2 mg tablet 2 mg PO Q6H MDD 4 tabs PRN (Reason: pain) Qty: 14 RF: 0 Continued alprazolam 0.5 mg tablet 0.5 mg PO ONCE PRN (Reason: claustrophobia) Qty: 2 RF: 0 diazepam 5 mg tablet 5 mg PO ONCE PRN (Reason: claustrophobia) Qty: 1 RF: 0 citalopram [Celexa] 10 MG tablet 20 mg PO DAILY RF: 0 meclizine 12.5 MG tablet 25 mg PO TID PRNRF: 0 rosuvastatin [Crestor] 20 MG tablet 40 mg PO DAILY RF: 0 topiramate 50 MG tablet 50 mg PO HS RF: 0 sumatriptan succinate 50 MG tablet 50 mg PO DIRECTED PRNRF: 0 acyclovir 200 MG capsule 200 mg PO DIRECTED PRNRF: 0 levothyroxine 75 MCG tablet 75 mcg PO DAILY RF: 0 lisinopril 2.5 MG tablet 2.5 mg PO DAILY RF: 0 aspirin 81 MG tablet,delayed release (DR/EC) 81 mg PO DAILY RF: 0 epinephrine 0.3 MG/SYR auto-injector 0.3 mg IJ PRN PRN (Reason: Anaphylaxis) Qty: 1 RF: 0 nitroglycerin 0.4 MG tablet, sublingual 0.4 mg Sublingual DIRECTED RF: 0 cetirizine 10 mg Tablet 10 mg PO DAILY RF: 0 sennosides [senna] 8.6 mg Tablet 8.6 mg PO DAILY RF: 0 Discontinued acetaminophen 500 mg tablet 1,000 mg PO Q8H PRN (Reason: pain) Qty: 90 RF: 3 hydromorphone 2 mg tablet 2 mg PO Q6H PRN PRN (Reason: pain) Qty: 12 RF: 0 ibuprofen 600 mg tablet 600 mg PO TID PRNQty: 90 RF: 3 Discharge Instructions Stand Alone Forms: Chris Kapadia w/RCR Referrals: Coy Perez MD [ [facility] STAFF PHYSICIAN] - Equipment/Supplies: Sling Activity:: Elevate Remove Dressings/Wound Care:: 72 hours Shower/Bathe:: 72 hours Diet:: As Tolerated Discharge Orders Discharge Orders: Discharge Order (Routine); Ordered 08/11/20 Ordered By: Devin Jung DS: Diagnosis Discharge Diagnosis (1) Left rotator cuff tear: Status: Acute
[2020-08-11] MEDS: ceFAZolin 2 GM/50 ML BAG IVPB (09:33)
[2020-08-11] MEDS: EPINEPHrine 30 MG/30 ML VIAL (10:26)
--- NOTE | 2020-08-11 13:57 | ROE_ITS ---
Date of service: 08/11/20 Time of Service: 11:57 Operative Note Operative Note DATE OF PROCEDURE: 08/11/20 PRE-OP DIAGNOSIS: Left Rotator Cuff Tear POST-OP DIAGNOSIS: same PROCEDURE: - Arthroscopic Rotator Cuff Repair - Extensive debridement of anterior and posterior glenohumeral joint and rotator cuff SURGEON: Coy Perez FOREMAN/PILE DRIVING AND ERECTION: Devin Jung ANESTHESIA: GETA and regional ESTIMATED BLOOD LOSS: 0 PATHOLOGY: none sent COMPLICATIONS: None Patient was transported to: PACU Patient's condition: stable Indications: I have seen Anay in clinic for a painful and weak shoulder after trauma during her post-operative course for a rotator cuff tear. Pathology was confirmed based on MRI and exam findings. Nonoperative measures were exhausted but disability and pain persisted. I discussed shoulder arthroscopy and procedures. I reviewed the risks of the procedures to include, but not limited to, bleeding, infection, pain, stiffness, damage to nerves or vessels, recurrence, hardware failure, blood clot. Despite these risks, the patient elected to proceed. Findings: A diagnostic arthroscopy was performed with the following findings: Articular Side - Glenohumeral Joint: No significant arthritic changes - Labrum: Labrum changes - Cuff: Anterior supraspinatus was pulled off with visible sutures. Significant inflammatory changes within the entire joint anterior and superiorly primarily. - Biceps: Absent Subacromial Side - Bursal: Thickened bursa - Rotator Cuff: Tear of anterior suprapinatus Procedure Description: Anay was greeted in the preoperative holding area where the correct side was identified and marked. The consent was reviewed with the patient and signed. The history and physical was updated. All questions were answered. She was taken back to the PACU for administration of an intrascalene nerve block. Anay was then taken to the operating room. The patient was placed into the supine position on the operating room table. A general anesthetic was administered. nAay was then positioned in the beach chair position. All bony prominences were well padded. The head was placed in a foam heading machine operator in a neutral position. Prophylactic antibiotics in the form of Cefazolin were administered. The left arm/shoulder was then prepped with Chloraprep and draped in a standard fashion with stockinette and shoulder drape. A timeout to confirm correct identity, side and site, procedure, allergies, anesthesia, and medical concerns was performed. The arm was placed into a pneumatic garcia, [id number]. The shoulder arthroscopy was then performed. The glenohumeral joint was injected with 20 cc of normal saline with good flow back. A standard posterior portal was made and the joint was entered atraumatically with a blunt arthroscope. Once inside we had good visualization of the structures of the glenohumeral joint. An anterior portal was established with spinal needle localization. A 6.5 mm cannula was inserted. A probe was then used to perform a diagnostic arthroscopy. There is noted to be no significant cartilage damage of the glenoid humeral joint. The labrum was intact anteriorly and posteriorly. There were no loose bodies in the inferior pouch. The superior rotator cuff was torn over the anterior portion with exposed sutures. The biceps tendon absent from previous tenotomy. The subscapularis was intact. Aggressive debridement was performed of the inflammatory tissue that was seen inside the joint. This was taken anteriorly and superiorly and posteriorly. Rotator interval was also opened. The undersurface of the supraspinatus was debrided and sutures were released with a shaver. The arthroscope was then inserted into the subacromial space. The 6.5 mm cannula was placed lateral to the CA ligament. A complete bursectomy is performed anteriorly, posteriorly, and laterally with electrocautery and shaver. This had excellent exposure of the rotator cuff. The bursal side rotator cuff had a tear of the anterior supraspinatus which corresponds what we saw in the articular side. Then placed 2 lateral portals under spinal needle localization. 1 with a 7.5 mm cannula involve the 6.5 mm cannula. The posterior portal becam e the viewing portal and the anterior one became the working portal. I then aggressively debrided the rotator cuff tear to expose healthier tissue. I used electrocautery as well as the shaver to expose the greater tuberosity and the footprint. The previous anchor was seen. Suture and it was removed. The rotator cuff was very mobile.. I then placed a single 4.5 mm Mytec Healix anchor at the articular margin. The sutures were then passed placed 2 horizontal mattress sutures into the supraspinatus tendon. The tendon was mobile and nicely reapproximated the positioning of the supraspinatus working posteriorly and anteriorly. The sutures were tied. And then placed 2 lateral anchors incorporating 1 suture limbs of the suture into the lateral anchor. These were placed without difficulty and had excellent reapproximation of the tendon down to bone. There is no gapping of the tendon. No dogear. There is also no visible joint space. The scope equipment was removed from the shoulder. Excess fluid was evacuated. The portal sites were closed with 3-0 Monocryl. The wounds were dressed with Steri-Strips, 4 x 4's, ABDs, Medipore tape. A sling was applied. The patient tolerated the procedure well and was returned to the PACU in a stable condition suffering no known complication.
== END 2020-08-11 14:35 | disposition home or self-care (01) ==
PROVIDERS: PCP Internal Medicine; Visit Provider Student in an Organized Health Care Education/Training Program
PROC: (CPT 29827; principal; 2020-08-11 10:30)
DX: M75.102 Unspecified rotator cuff tear or rupture of left shoulder, not specified as traumatic (principal); I10 Essential (primary) hypertension; E03.9 Hypothyroidism, unspecified; K21.9 Gastro-esophageal reflux disease without esophagitis
CPT/HCPCS: 29827; 29823; 76942; L3670; J0690; J1100; J1885; J2001; J2250; J2370; J2405

== ENCOUNTER 2020-09-08 02:13 | Outpatient (CLI) | payer MEDICAID, SELFPAY ==
--- OUTSIDE RECORDS SUMMARY | 2020-09-08 02:16 | XMS_ITS | Encounter Summary ---
:1960 Author Care Team Providers Name Role Phone Kerry MILLS Primary Care Provider [phone] [facility] Medical Records Primary Care Provider [phone] Reason for Visit Phone Call Visit; SLEEP CLINIC Follow-Up Other (specify) Assessment and Plan Assessment Note Telehealth Visit conducted via cont inuous, real-time Audio connection, with patient at home and physician in sleep clinic. Verbal consent was obtained to conduct this telehealth visit in place of i n-person visit due to Covid-19 precautio ns, and patient is aware this visit will be billed to patient's health insurance. The patient is home. The provider is i n the office. The patient has been positively identifi ed and has consented to a telephone visit. I provided greater than 25 minutes in th e care of this patient, more than half the time was spent in nake-to-rvlh counseling. 1. Obstructive sleep apnea syndr ome 07/13/10 Severe MOISES Ahi 48.2/h r. gordo O2 83%. 05/12/19: Pt w/ hx of very severe MOISES wit h nocturnal hypoxemia and prolonged O2 desaturations who tried cpap 2009 and failed due to mask intolerance, tried oral appliance back in 2010 and not currently u sing that. She has sxs of persistent MOISES including multiple nocturnal awakenings, excessive daytime sleepiness ESS 07/10, memory and concentration problems. She is open to trying cpap again as she knows there are new mask options and this was what bothered her the most when she tried it in 2009. given severity, oral appliance likely not good option. also she has gained some wt as BMI now at 35.7. Last avail recorded wt was 06/05/19 at 182 lb s, vs 189 lbs today. re-started apap 6 to 18cm 07/14/19: Adj to apap 5 to 12cm to refle ct titration PSG results. encouraged inc usage to meet compliance. usage has been low due to sleeping on couch to care for s/p knee replacement w/ disrupt ed sleep of her own. she does feel more energetic when using cpap tho. previously reported tolerating nasal pillows much better feel benefit to cpap, more energy during day not using chin strap, 04/12/20: returned cpap due to low usage as she was not sleeping at night much from caring for her ; she had carpal tunnel surgery recently where she was having freq events seen by anethesiologist and told she needs to get on cpap befor e her ortho surgery on 04/28/20. she continues to have sxs of untreated moises including difficulty sleeping, waking up frequently at night, nocturia, and daytime fat igue. requested jatin cpap set up via [facility] and 6 week f/u in sleep clinic for [id number] 07/12/20: usage low due to surgery then post op pain and needing to sleep in living room in recliner some nights. fifi chewed her cpap hose when she set cpap machine in living room so she now has to on ly keep it in her bedroom but cant alway s sleep in her bed. I called [facility] who confirmed she has compliance requirement which has not been met. discussed in detail w/ pt and asked [facility] to work with her on this too. she is motivated to keep machi ne. she still has daytime sleepiness and I suspect this may improve if she has better usage. short 1 month interval f/u. 08/09/20: tried re-starting for 1 week b ut then had to stop due to developing burning mouth sensation, interesting still there even after she stopped 3 weeks ago. i suspect she did not turn on humidifie r level but tube temp instead. explained to her how to turn this on and she will try at humidity level of 3 or above. short interval f/u in 2 weeks. in meantime suspect she also has burning mouth syndro me, and B vitamins may help so will Rx t his. also encouraging her to breath w/ mouth closed which can help too. ? sleep apnea: care instruct ions 2. Hypersomnia 05/12/19: ESS 10 on untreated O SA 07/14/19: ESS 7 today, cpap usage low, w ill check after cpap usage improves 04/12/20: ESS 11, untreated moises 08/09/20: ESS 12, still not using cpap y et 3. Burning mouth syndrome ? vitamin B complex tablet ? cyanocobalamin (vit B-12) 1,000 mcg tablet Discussion Note Remember to always take precautio ns on drowsy driving. If you experience sleepiness while driving, find a safe area to pullman conductor and take a break. Research suggests taking a power nap (15 to 20 missael dior) and/or coffee (or caffeine containi ng food such as dark chocolate) may be effective aides. As always, you should use your judgement on whether to drive at all, if you are sleep deprived or feeling sleepy. Thank you for the kind opportunity to pa rticipate in your medical care. You expressed good understanding of your diagnosis and treatment, and agreed to proceed with the plan we discussed together. If yo u have any questions or concerns prior t o your next appointment, please call Sleep Clinic. Plan of Care Patient Instructions Unfortunately using cpap triggered burning mouth sensation for you, which is still there even though you stopped using cpap 3 weeks ago. This is what I suggest: Turn up your humidifier setting to 3, an d go up from there if needed. You can keep the tube temperature settin g at 1, and increase if you want the air warmer. I will send Vitamin B12 1000mcg and B-co mplex once daily in morning to your pharmacy, that may help with the burning mouth sensation. Try to keep your mouth closed during sle ep, which can also help reduce the burning mouth symptom. follow up in 2 weeks for cpap compliance check. Reminders Provider Appointments Office 30 12/06/2020 Diane Magaña MD, 9:30AM Board Certified Sleep Physician Lab None ? ? recorded. Referral None ? ? recorded. Procedures None ? ? recorded. Surgeries None ? ? recorded. Imaging None ? ? recorded. Medications Name Start Date ? ? acetaminophen ER 650 mg tablet,extended release ? Take 1 tablet every 8 hours by oral route. acyclovir 200 mg capsule ? Take one tablet every 4-6 hours as needed aspirin 81 mg tablet,delayed release ? Take 1 tablet every day by oral route. calcium ? 1200 mg daily Celebrex 100 mg capsule ? TAKE 1 CAPSULE BY MOUTH TWICE DAILY cetirizine 10 mg tablet ? Take one tablet daily citalopram 20 mg tablet ? take 1 tablet by mouth once daily clindamycin HCl 150 mg capsule ? cyanocobalamin (vit B-12) 1,000 mcg tablet ? Take 1 tablet every day by oral route in the morning. EpiPen 2-Dionisio 0.3 mg/0.3 mL injection, auto-injector ? as needed ibuprofen 800 mg tablet ? TAKE 1 TABLET BY MOUTH EVERY DAY NEEDED levothyroxine 88 mcg tablet ? TAKE 1 TABLET BY MOUTH EVERY DAY lisinopril 2.5 mg tablet ? Take one tablet daily meclizine 25 mg tablet ? 1 (one) Tablet: 3 times daily as needed for dizziness mupirocin 2 % topical ointment ? APPLY A SMALL AMOUNT TO THE AFFECTED AREA BY TOPICAL ROUTE 3 TIMES PER DAY nitroglycerin 0.4 mg sublingual tablet ? for chest pain place 1 tablet sublingua lly, may repeat every 5 minutes for a maximum of 3 doses. Call 911 if chest pain does not resolve. polymyxin B sulfate 10,000 unit-trimethoprim 1 mg/mL e ye drops ? INSTILL 1 DROP INTO AFFECTED EYE(S) BY OPHTHALMIC ROU TE EVERY 6 HOURS ProAir HFA 90 mcg/actuation aerosol inhaler ? Inhale 2 puffs every 4-6 hours by inhalation route as needed. ProChamber ? rosuvastatin 40 mg tablet ? Take one tablet daily sumatriptan 50 mg tablet ? 1 tablet at onset of headache, can repe at in 2 hours if no improvement in the severity of the headache. topiramate 50 mg tablet ? TAKE 1 TABLET BY MOUTH AT BEDTIME vitamin B complex tablet ? Take 1 tablet every day by oral route in the morning. Medications Administered None recorded. Vitals Height Weight BMI 5 ft 1 in 180 lbs 34 kg/m2 Results Lab Results None recorded. Allergies Code Code System Name Reaction Severity Onset Adhesive Tape Rash ? ? 723 RxNorm Amoxicillin Rash ? ? Animal Dander Other ? ? 1406 RxNorm Benzoin Rash ? ? 958621 RxNorm Milk Diarrhea ? ? 7052 RxNorm Morphine Nausea ? ? 770600 RxNorm Peanut Anaphylaxis ? ? 83750 RxNorm Percocet Itching ? ? 3412733 RxNorm Pineapple Other ? ? Tetanus Vaccines Rash ? ? and Toxoid Tree and Shrub Itching ? ? Pollen Notes: Flu shot Problems Name Status Onset Date Source ? Benign Paroxysmal Positional Vertigo Active 11/11/2018 ? Angina Pectoris Active 11/11/2018 ? Coronary Arteriosclerosis Active 11/11/2018 ? Herpesviral Vesicular Dermatitis Active ? History Onychomycosis Active ? History Hypothyroidism Active ? History Hyperlipidemia Active ? History Obesity Active ? History Fear of Flying Active ? History Depressive Disorder Active ? History Obstructive Sleep Apnea Syndrome Active ? History Migraine Active ? History Carpal Tunnel Syndrome Active ? History Hypertensive Disorder Active ? History Allergic Rhinitis Active ? History Asthma Active ? History Chronic Constipation Active ? History Neurogenic Dysfunction of the Urinary Active ? History Bladder Contact Dermatitis Active ? History Urticaria Active ? History Idiopathic Osteoarthritis Active ? Histor y Inflammatory Spondylopathy Active ? Histo ry Backache Active ? History Dizziness and Giddiness Active ? History Lack of Energy Active ? History Thyroid Function Tests Abnormal Active ? History Therapeutic Drug Monitoring Assay Active ? History Adult Health Examination Active ? History Pain of Right Shoulder Joint Active ? His tory Pain in Left Knee Active ? History Procedures Date Name Performed by ? 08/11/2020 Arthroscopic Repair of Rotator Cuff Info rmation not available 04/28/2020 Arthroscopic Repair of Rotator Cuff Info rmation not available 03/23/2020 Carpal Tunnel Surgery Information not av ailable 01/06/2019 Bursectomy Information not avai lable Notes: left hip 01/08/2018 Orthopedic Surgery Information not avai lable Notes: right rotator cuff 11/06/2017 Cardiac Catheterization Information not available Notes: left 02/01/2016 Cholecystectomy Information not avai lable 12/17/2011 Arthroscopy of Joint Information not amrik ilable Notes: left knee 03/31/2010 Arthroscopy of Joint Information not amrik ilable Notes: bilat knees 09/17/2009 Total Knee Replacement Information not a vailable Notes: 201007/14/2009 Hysterectomy Information not avai lable ? Tubal Ligation Information not avai lable Notes: Salpingectomy Unilateral Ectopic Surgical debridement of left trochanteri c bursa with IT band tenotomy Vaccine List Vaccine Type influenza, seasonal, injectable 07/18/2000 Td (adult), adsorbed 09/17/1987 Tdap 04/24/2017?0.5 mL Social History Tobacco Smoking Status Former Smoker Notes: quit 19 85 Are you currently employed? N Blind or serious difficulty N Notes: reyes s reading seeing glasses Chewing tobacco none Most Recent Tobacco Use 02/11/2019 Screening Advance directive N E-cigarette/Vape Status Never used electronic cigarettes Exercise level None Hand Dominance Right Animal exposure? Y Notes: dogs, cats Alcohol intake None Live alone or with others? with others Notes: hus band Smokeless Tobacco Status Never used smokeless tobacco Education 11 Language Difficulties No Hard of hearing or deaf in one N or both ears? Passive smoke exposure? N Caffeine intake Occasional Notes: 1-3 sodas a day Drug Use N Guns present in home Y Notes: locked up Occupation retired Family History Relation Problem Onset Age of Age Notes Unspecified Relation Family history of cancer (No N/A aunt-breast Information) Mother Spinal stenosis (No N/A (No Notes) Information) Mother Hypertensive disorder (No N/A (No No dior) Information) Mother Cerebrovascular accident (No N/A (No Notes) Information) Father Coronary arteriosclerosis (No N/A (N o Notes) Information) Father Hypertensive disorder (No N/A (No No dior) Information) Brother Spinal stenosis (No N/A (No Notes) Information) Functional Status No Impairment. Past Encounters 08/09/2020 Obstructive Sleep Apnea Syndrome; Hypers omnia; Burning Mouth Syndrome Diane Magaña MD, Board Certified Sleep Ph ysician: [address] [place] [address] [address], [place] [address], Ph. 07/12/2020 Obstructive Sleep Apnea Syndrome; Hypers omnia Diane Magaña MD, Board Certified Sleep Ph ysician: [address] [place] [address] [address], [place] [address], Ph. 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
Past medical history includes severe MOISES, CAD, asthma, chronic back pain (was on vicodin, allergic itch now off)

<strong>PREVIOUS SLEEP EVALUATION: </strong></p><p>
</p><p>Due to sleep onset insomnia, multiple nocturnal awakenings 2/2 pain, daytime sleepiness ESS , patient had <strong>Diagnostic Polysomnogram</strong> on {{07/13/2010# }} at Weight {{n/a# }} lbs and BMI {{33.8# }} kg/m2, revealed {{Mild Moderate Severe* Extremely Severe No evidence for}} Obstructive Sleep Apnea. {{No significant nocturnal hypoxemia. Significant nocturnal hypoxemia.* Severe nocturnal hypoxemia.}} {{No significant Mild Moderate* Severe Very Severe}} Periodic Limb Movement D isorder.

Overall AHI {{48.2# }}/hr, Overall RDI {{n/a# }}/hr, REMAHI {{33.5# }}/hr, Supine AHI {{n/a# }}/hr, Right Lateral AHI {{n/a# }}/hr, Left Lateral AHI {{n/a# }}/hr. Mean SpO2 {{92# ____}}%. [place] SpO2 {{83# ____}}%. {{More than5# ____}} minutes with SpO2 <= 88% on room air. Arousal Index {{32# ____}}/hr. Periodic Limb Movement Index {{25.1# ____}}/hr. Periodic Limb Movement Arousal Index {{3.8# ____}}/hr. {{Atrial Fibrillation consistent with history Atrial Fibrillation, not seen in previous documentation No significant arrhythmia* Significant arrhythmia}}. {{Mohan-Sesay Respirations No Mohan- Sesay Respiration*}}. {{Significant parasomnias No parasomnias*}}. {{No abnormalities on extended EEG montage Abnormal EEG No abnormalities on limited EEG montage*}}. Sleep Efficiency 83%. {{Decreased REM sleep 16% TST# Absent REM. Excess REM sleep. Normal REM }}</p><p>
</p><p>Titration PSG on 08/07/10 showed optimal pressure cpap 11 and 12cm and mild PLMs 11.7/hr. Tried and failed cpapand switched to oral appliance. (report not avail but summarized from other records)</p><p>
</p><p>Previously seen on 06/05/[address] Sanchez using oral appliance and partial improvement of daytime function but not complete degree.</p><p>
</p& gt;<p>Oral Appliance PSG 06/19/2011 (bmi 34.4) (appliance not named) started at 0 and advanced 14 clicks, went back to 10 clicks due to intolerance of quick advancement. continued to have very loud snoring and UARS on every setting, w/ persistent hypopneas blaine during REM and more so during supineREM on 6 and 10 clicks. PLM 27/hr PLMa 5/hr. 3% desat used. arousal index 19/hr.</p><p>
</p><p>She returned for re- evaluation on 05/12/19 at kind request of eKrry MILLS, noted for persistent symptoms on untreated MOISES and plan for re-starting treatment at auto cpap 6 to 18cm.</p><p>
</p><p><strong>Repeat Titration Polysomnogram</strong> on {{06/08/19# }} at Weight {{189# ____}} lbs and BMI {{35.7# }} kg/m2, tested CPAP {{4# ___}} to CPAP {{12# ___}} cmH2O.
Optimal pressure: CPAP 11 cm/H2O resolved significant apneas, hypopneas, snoring and desaturations including during supine REM sleep and supine NREM sleep, lateral NREM and right lateral REM sleep. CPAP [id number] was also tested but did not appear to offer additional benefit. Adequate oxygenation was maintained Resmed Airfit P10, Nasal Pillows in Size Small, showed mostly acceptable leak profile. Hydraulic Press Operator noted addition of chin strap would be beneficial to address intermittent mouth leak, and one was given to patient at end of study.
Arousal Index {{5# }}/hr. Periodic Limb Movement Index {{1.4# l}}/hr. Periodic Limb Movement Arousal Index {{0.4# ___l}}/hr. {{Atrial Fibrillation consistent with history Atrial F ibrillation, not seen in previous documentation No significant arrhythmia* Significant arrhythmia}}.{{Mohan-Sesay Respirations No Mohan- Sesay Respiration*}}. {{Significant parasomnias No parasomnias*}}. {{No abnormalities on extended EEG montage Abnormal EEG No abnormalities on limited EEG montage*}}. {{Normal sleep efficiency 90%# Low sleep efficiency Normal sleep efficiency High sleep efficiency}}. {{Excess REM sleep 32% TST# Absent REM Decreased REM sleep Normal REM Excess REM sleep}}.</p& gt;<p>
</p><p>
</p><p><strong >TODAY: on apap 5to 12cm via AirFit P10 small nasal pillows for a week, had to stop due to feeling her mouth is burning, which is now still happening after she stopped cpap 3 weeks ago</strong></p><p>she wasn't sure about humidity vs tube temperature setting, thought she was turning up humidity but may have just turned up temp.</p> Review of Systems ? Notes: <p><span>A 10-point REVIEW O F SYSTEM was obtained and reviewed, includes CONSTITUTIONAL, EYES, NOSE, THROAT, RESPIRATORY, HEART, GASTROINTESTINAL, UROLOGIC, MUSCULOSKELETAL, P SYCHIATRY, SKIN systems. Pertinent symptoms are discussed in history, otherw ise negative.</span></p><p>fatigue daily</p><p>dry mouth </p><p>nasal congestio n</p><p>burning mouth</p><p>headaches</p><p>
</p> Physical Exam ? Notes: <p>Gen: no acute distress he cheo
Resp: quiet respirations, speaks in full sentences without dyspnea
Psych: fluent speech, linear thought process, balanced affect
Neuro: al ert, oriented</p><p>
</p><p>prior in person exam:
GENERAL: {{well ashley earing# chronically ill appearing}}, appearing {{stated# older than younger than}} age, no acute distress, {{obese# normal tall lean}} build
HEENT: atraumatic skull, anicteric
RESPIRATORY: quiet respiration, able to speak in full sentences without dyspnea, n o accessory muscle use,
SKIN: no facial skin rash, no facial skin lesions
PSYCHIATRIC: well groomed, fluent speech, good insight, linear thought proc ess, good eye contact, {{balanced# flat}} affect
NEUROLOGIC: belle rt, oriented, symmetric facial expression

<strong>Cl inical Data Reviewed:</strong>

1. {{Modified Pediatric [place] Sleepiness Scale [place] Sleepiness Scale*}}: 12 out of {{24# 21 due to not d riving}} vs 7 on cpap and 10 on consult</p><p>
2. {{Sleep study results as above.# Sleep study results not available, requested Unable to obtain sleep study reports No sleep study reports}}

3. Machine Download Data: Not using currently, last avail download
{{Resmed AirSens e 10 Auto CPAP Resmed AirSense 10 Auto BIPAP Respironics Dreamstati on Auto CPAP* Respironics Dreamstation Auto BIPAP}}
PAP Settings: {{Auto CPAP# Auto BIPAP CPAP BIPAP}} 5 to 12 CmH2O
Date Range: {{# }} to {{07/17/20# }}
<strong>Days with Usage >=4 hours: {{63# Over 70 100}} % (used days) </strong>
<strong>Avg Usage per Day Used: {{1 2 3 4* 5 6 7 8 9 10}} Ho urs {{7# 0}} Minutes</strong>
Mean/Median Pressure: {{8.3# number___}} cmh2O
90th-tile/95th-tile Pressure: {{11.3# number___}} cmH2O
{{Avg Time in Large Leak Daily- # Median-90th%tile Leak: Jocy k:}} {{14M# Not significant Significant leak}}
<strong>Average AHI: {{5.9# enter}} per hour</strong>
{{Normal flow limitation index. * Abn ormal flow limitation index. }}
{{Abnormal vibratory snore index. 19/HR # Normal vibratory snore index. Abnormal vibratory snore index. }}
{{Daily details do not show significant periods at maximum pressure* Daily d etails shows significant periods at maximum pressure}}

4. {{Lab r esults as outlined. * Labs pending. }} from chart review, TSH 6.5 on 03/18/2020< /p>
--- OUTSIDE RECORDS SUMMARY | 2020-09-08 02:16 | XMS_ITS | Encounter Summary ---
:1960 Author Care Team Providers Name Role Phone Kerry MILLS Primary Care Provider [phone] [facility] Medical Records Primary Care Provider [phone] Reason for Visit SLEEP CLINIC Follow-Up Other (specify) Assessment and Plan Assessment Note The patient is home. The provider is in the office. The patient has been positively identifi ed and has consented to a telephone visit. Telehealth Visit conducted via [employer], real-time Audio connection, with patient at home and physician in sleep clinic. Verbal consent was obtained to conduct this telehealth visit in place of in-per son visit due to Covid-19 precautions, a nd patient is aware this visit will be billed to patient's health insurance. I provided greater than 25 minutes in th e care of this patient, more than half the time was spent in [id number] counseling. 1. Obstructive sleep apnea syndr ome [...] 6 week f/u in sleep clinic for trdis4s 07/12/20: usage low due to surgery then post op pain and needing to sleep in living room in recliner some nights. puppy chewed her cpap hose when she set [...] better usage. short 1 month interval f/u. ? sleep apnea: care instruct ions ? CPAP management - Please h elp patient with following: [x ] Help reinforce PAP compliance I just had phon e apptmt with her. Her usage was low due to having surgery and then dealing with gabriel n after surgery, affects where she can sleep and whether she can sleep next to her cp ap machine. She is motivated to keep her machine and understands she needs to use it every night (at least 70% of time) for 4+ hours in nxt 30 days. She will work on t [employer]. Do you need to request extension via [facility]? as I suspect she will have hit the 90 day charmaine and not met compliance. Let me know if you need me to write anything ad ditional. Please have phone check-ins with her every week or two to encourage her a nd keep her updated on her progress. I will plan for another appointment with her in about 1 month to check her progress. 2. Hypersomnia 05/12/19: ESS 10 on untreated O SA 07/14/19: ESS 7 today, cpap usage low, w ill check after cpap usage improves 04/12/20: ESS 12, untreated moises Discussion Note Remember to always take precautio ns on drowsy driving. If you experience sleepiness while driving, find a safe area to thread pulling machine attendant and take a break. Research suggests taking a power nap (15 to 20 missael dior) and/or coffee (or caffeine containi ng food such as dark chocolate) may be effective aides. As always, you should use your judgement on whether to drive at all, if you are sleep deprived or feeling sleepy. Thank you for the kind opportunity to pa rtyinate in your medical care. You expressed good understanding of your diagnosis and treatment, and agreed to proceed with the plan we discussed together. If yo u have any questions or concerns prior t o your next appointment, please call Sleep Clinic. Plan of Care Patient Instructions You started your cpap therapy and f eel motivated to keep it. Your usage has been low and I think that is why you still feel symptoms of daytime sleepiness. Your usage was affected by shoulder surg haris and post op pain, which limited you in where you can sleep and if you sleep in chair, you werent able to set the cpap next to the chair, so those nights you didnt get to use. We talked about the goal of using the ma chine every night (aim every night, goal is more than 70% of nights) for MORE than 4 hours each night, for the next 30 days. This will help you meet compliance re quirement, so the insurance will keep josey iftikhar for your machine. Continue same setting at auto cpap 5 to 12cm. follow up in 1 month for cpap compliance check. Reminders Provider Appointments Office 12/06/2020 Diane Magaña MD, 9:30AM Board Certified [...] ? 1406 RxNorm Benzoin Rash ? ? 615317 RxNorm Milk Diarrhea ? ? 7052 RxNorm Morphine Nausea ? ? 196265 RxNorm Peanut Anaphylaxis ? ? 66273 RxNorm Percocet Itching ? ? [id number] RxNorm Pineapple Other ? ? Tetanus Vaccines [...] Information) Functional Status No Impairment. Past Encounters 07/12/2020 Obstructive Sleep Apnea Syndrome; Hypers omnia Diane Magaña MD, Board Certified Sleep Ph ysician: [address] [place] [address] [address], [place] [address], Ph. History of Present Illness Note: <p>
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
Past medical history includes severe MOISES, CAD, asthma, chronic back pain (was on vicodin, allergic itch now off)

<strong>PREVIOUS SLEEP EVALUATION: </strong></p><p>
</p><p>Due to sleep onset insomnia, multiple nocturnal awakenings 2/2 pain, daytime sleepiness ESS , patient had <strong>Diagnostic Polysomnogram</strong> on {{07/13/2010# }} at Weight {{n/a# }} lbs and BMI {{3 3.8# }} kg/m2, revealed {{Mild Moderate Severe* Extremely Severe No evidence for}} Obstructive Sleep Apnea. {{No significant nocturnal hypoxemia. Significant nocturnal hypoxemia.* Severe nocturnal hypoxemia.}} {{No significant Mild Moderate* Severe Very Severe}} Periodic Limb Movement Disorder.

Overall AHI {{48.2# }}/hr, Overall RDI {{n/a# }}/hr, REM AHI {{33.5# }}/hr, Supine AHI {{n/a# }}/hr, Right Lateral AHI {{n/a# }}/hr, Left Lateral AHI {{n/a# }}/hr. Mean SpO2 {{92# ____}}%. [place] SpO2 {{83# ____}}%. {{More than 5# ____}} minutes with SpO2 <= 88% on room air. Arousal Index {{32# ____}}/hr. Periodic Limb Movement Index {{25.1# ____}}/hr. Periodic Limb Movement Arousal Index {{3.8# ____}}/hr. {{Atrial Fibrillationconsistent with history Atrial Fibrillation, not seen in [...] and mild PLMs 11.7/hr. Tried and failed cpap and switched to oral appliance. (report not avail but summarized from other records)</p><p>
</p><p>Previously seen on 06/05/[address] Sanchez using oral appliance and partialimprovement of daytime function but not complete degree.</p><p>
</p><p>Oral Appliance PSG 06/19/2011 (bmi 34.4) (appliance not named) started at 0 and advanced 14 clicks, went back to 10 clicks due to intolerance of quick advancement. continued to have very loud snoringand UARS on every setting, w/ persistent hypopneas blaine during REM and more so during supine REM on 6and 10 clicks. PLM 27/hr PLMa 5/hr. 3% desat used. arousal index 19/hr.</p><p>
& lt;/p><p>She returned for re-evaluation on 05/12/19 at kind request of Kerry MILLS, noted for persistent symptoms on untreated MOISES and plan for re-starting treatment at auto cpap 6 to 18cm.</p><p>
</p><p><strong>Repeat Titration Polysomnogram</strong> on {{06/08/19# }} at Weight {{189# ____}} lbs and BMI {{35.7# }} kg/m2, tested CPAP {{4# ___}} to CPAP {{12# ___}} cmH2O.
Optimal pressure: CPAP 11 cm/H2O resolved s ignificant apneas, hypopneas, snoring and desaturations including during supine REM sleep and supineNREM sleep, lateral NREM and right lateral REM sleep. CPAP [id number] was also tested but did not appear to offer additional benefit. Adequate oxygenation was maintained Resmed Airfit P10, Nasal Pillows in Size Small, showed mostly acceptable leak profile. Bulk Receiver noted addition of chin strap would bebeneficial to address intermittent mouth leak, and one was given to patient at end of study.
Arousal Index {{5# }}/hr. Periodic Limb Movement Index {{1.4# l}}/hr. Periodic Limb Movement Arousal Index {{0.4# ___l}}/hr. {{Atrial Fibrillation consistent with history Atrial Fibrillation, [...] Decreased REM sleep Normal REM Excess REM sleep}}.</p><p& gt;
</p><p>
</p><p><strong>TODAY : Re-started apap 5 to 12cm via AirFit P10 small nasal pillows</strong></p><p>
</p> Review of Systems ? Notes: <p><span>A 10-point REVIEW O F SYSTEM was obtained and reviewed, includes CONSTITUTIONAL, EYES, NOSE, THROAT, RESPIRATORY, HEART, GASTROINTESTINAL, UROLOGIC, MUSCULOSKELETAL, P SYCHIATRY, SKIN systems. Pertinent symptoms are discussed in history, otherw ise negative.</span></p><p>fatigue daily</p><p>nasal congestion from allergies</p><p>cough (side effect from bp med)</p><p>diarrhea/constipa tion-off/on</p><p>freq urination</p><p>joint pain, muscle cramps - had in past, but none now</p><p></p> Physical Exam ? Notes: <p>Gen: no acute [...]

<strong>Cl inical Data Reviewed:</strong>

1. {{Modified Pediatric [place] Sleepiness Scale [place] Sleepiness Scale*}}: 11 out of {{24# 21 due to not [...] 12 CmH2O
Date Range: {{# }} to {{07/08/20# }}
<strong>Days with Usage >=4 hours: {{31.7# Over 70 100}} % (used 41/60 days) </strong>
<strong>Avg Usage per Day Used: {{1 2 3 4* 5 6 7 8 9 10}} Ho urs {{54# 0}} Minutes</strong>
Mean/Median Pressure: {{8.7# number___}} cmh2O
90th-tile/95th-tile Pressure: {{11.6# number___}} cmH2O
{{Avg Time in Large Leak Daily- # Median-90th%tile Leak: Jocy k:}} {{9m# Not significant Significant leak}}
<strong>Average AH I: {{4.4# enter}} per hour</strong>
{{Normal flow limitation index. 20/hr # Normal flow limitation index. Abnormal flow limitation index. }}
{{No rmal vibratory snore index. Abnormal vibratory snore index. *}}
{{Daily details do not show significant periods at maximum pressure* Daily details show s significant periods at maximum pressure}}

4. {{Lab r esults as outlined. * Labs pending. }} from chart review, TSH 6.5 on 03/18/2020< /p>
--- OUTSIDE RECORDS SUMMARY | 2020-09-08 02:16 | XMS_ITS ---
:1960 Author Care Team Providers Name Role Phone BRIANA MILLS Primary Care Provider [phone] [facility] REC[facility] Primary Care Provider [phone] Allergies Code Code System Name Reaction Severity Status Onset Adhesive Tape Rash ? Active ? 723 RxNorm Amoxicillin Rash ? Active ? Animal Dander Other ? Active ? 1406 RxNorm Benzoin Rash ? Active ? 911889 RxNorm Milk Diarrhea ? Active ? 7052 RxNorm Morphine Nausea ? Active ? 173366 RxNorm Peanut Anaphylaxis ? Active ? 71500 RxNorm Percocet Itching ? Active ? 4909889 RxNorm Pineapple Other ? Active ? Tetanus Vaccines Rash ? Active ? and Toxoid Tree and Shrub Itching ? Active ? Pollen Notes: Flu shot Medications Name Status Start Date Stop Date ? ? acetaminophen 500 mg tablet Completed ? 01/16 acetaminophen ER 650 mg tablet,extended release Active ? Not available Take 1 tablet every 8 hours by oral route. acyclovir 200 mg capsule Active ? Not amrik ilable Take one tablet every 4-6 hours as needed Advair Diskus 250 mcg-50 mcg/dose powder for inhalation Complete d 01/18/2015 02/02/2015 1 (one) Misc: twice daily Aleve 220 mg tablet Completed 12/21/2009 12/21/2009 1 (one) Tablet: daily alprazolam 0.5 mg tablet Completed ? 018 amoxicillin 500 mg capsule Completed 10/21/201310/31 1 (one) Cap: three times a day aspirin Completed ? 02/11/2019 aspirin 81 mg tablet,delayed release Active ? Not available Take 1 tablet every day by oral route. Atrovent 42 mcg (0.06 %) nasal spray Completed 12/18/2007 12/25/2007 1 [place](s): Four times daily as needed azithromycin 250 mg tablet Active ? Not a vailable B12 Completed ? 07/21/2019 800 IU daily Benadryl 2 % topical gel Completed 12/09/2015 016 1 (one) Gel Gel: twice a day calcium Active ? Not available 1200 mg daily Celebrex 100 mg capsule Active ? Not avai lable celecoxib 200 mg capsule Completed ? 019 Take 1 capsule every day by oral route. Centrum Silver 0.4 mg-300 mcg-250 mcg tablet Completed 07/10/2016 1 (one) Tablet: once daily cetirizine 10 mg tablet Active ? Not avai lable Take one tablet daily citalopram 10 mg tablet Completed ? 03/18/20 20 Take 1 tablet every day by oral route for 30 days. citalopram 20 mg tablet Active ? Not avai lable take 1 tablet by mouth once daily citalopram 40 mg tablet Completed ? 01/01/20 19 clindamycin HCl 150 mg capsule Active ? N ot available clotrimazole-betamethasone 1 Completed ? %-0.05 % topical cream cyanocobalamin (vit B-12) 1,000 mcg tablet Active ? Not available Take 1 tablet every day by oral route in the morning. Diovan HCT 80 mg-12.5 mg tablet Completed 12/22/2005 01/15/2006 1 (one) Tablet: Daily duloxetine 20 mg capsule,delayed Completed ? 03/10/2019 release EpiPen 2-Dionisio 0.3 mg/0.3 mL injection, auto-injector Active ? Not available as needed Flovent HFA 110 mcg/actuation Completed ? aerosol inhaler fluticasone propionate 50 Completed ? 2018 mcg/actuation nasal spray,suspension Glucosamine-Chondroitin Complex capsule Completed 05/15/2010/03/2005 1 (one) Capsule: TID Guaifenesin AC 10 mg-100 mg/5 mL oral liquid Completed 10/201502/07/2016 5-10 ml Teaspoon: every 4 to 6 hours as needed for cough hydrochlorothiazide 25 mg tablet Completed 10/28/2004 10/28/2004 1 (one) Tablet: Daily hydrocodone 5 mg-acetaminophen 325 Completed ? 02/11/2019 mg tablet hydrocodone 7.5 mg-acetaminophen Completed ? 08/14/2018 325 mg tablet ibuprofen 800 mg tablet Active ? Not avai lable TAKE 1 TABLET BY MOUTH EVERY DAY NEEDED isosorbide dinitrate 30 mg tablet Completed 10/25/2017 12/03/2017 1 (one) Tablet: Each morning isosorbide mononitrate ER 30 mg Completed ? 08/14/2018 tablet,extended release 24 hr ketorolac 10 mg tablet Completed 06/09/2016 7 1 (one) Tablet Tablet: up to every 6 hours as needed only ketorolac 30 mg/mL (1 mL) injection solution Completed 05/04/2012 1 Solution: now in office levothyroxine 50 mcg tablet Completed ? 10/19 take 1 tablet by mouth every morning levothyroxine 75 mcg tablet Completed ? 02/2020 take 1 tablet by mouth once daily levothyroxine 88 mcg tablet Active ? Not available TAKE 1 TABLET BY MOUTH EVERY DAY lisinopril 10 mg-hydrochlorothiazide 12.5 mg tablet Completed 04/08/2014 04/17/2014 1 (one) Tablet: daily lisinopril 2.5 mg tablet Active ? Not amrik ilable Take one tablet daily loratadine 10 mg tablet Completed 01/29/2009 01/30/20 09 1 (one) Tablet: QD lorazepam 0.5 mg tablet Active ? Not avai lable lorazepam 1 mg tablet Completed 09/16/2014 09/19/2014 1 Tablet: Take one tab 15 minutes before ride, may repeat if ne eded Maxalt-CHANGE AGENT 10 mg disintegrating tablet Completed 1 06/28/2011 1 Tablet Disperse: As directed meclizine 25 mg tablet Active ? Not avail able 1 (one) Tablet: 3 times daily as needed for dizziness metoprolol succinate ER 25 mg Completed ? tablet,extended release 24 hr Mobic 7.5 mg tablet Completed 05/23/2016 07/10/2016 1 (one) Tablet Tablet: once daily as needed mupirocin 2 % topical ointment Active ? N ot available APPLY A SMALL AMOUNT TO THE AFFECTED AREA BY TOPICAL ROUTE 3 TI MES PER DAY naproxen sodium 550 mg tablet Completed 05/27/2013 1 (one) Tablet: Twice daily as needed naratriptan 2.5 mg tablet Completed 12/04/20112011 1 Tablet: As directed Nasonex 50 mcg/actuation [place] Completed 06/22/2015 1 2 (two) [place](s): each nostril daily Nexium 40 mg capsule,delayed release Completed 01/15/2006 01/26/2006 1 (one) Capsule DR: QD nitroglycerin 0.4 mg sublingual Active ? Not available tablet nystatin 100,000 unit/mL oral Completed ? suspension omeprazole 20 mg capsule,delayed Active ? Not available release oxybutynin chloride 5 mg tablet Completed 05/01/2012 05/01/2012 1 (one) Tablet: two times daily oxybutynin chloride ER 5 mg tablet,extended release 24 hr Comple caity 01/01/2008 01/01/2008 1 (one) Tablet ER 24HR: Daily Patanol 0.1 % eye drops Completed 08/30/2010 08/30/20 10 1 (one) Drop(s): Twice daily polymyxin B sulfate 10,000 unit-trimethoprim 1 mg/mL eye drops A ctive ? Not available INSTILL 1 DROP INTO AFFECTED EYE(S) BY OPHTHALMIC ROUTE EVERY 6 HOURS prednisone 10 mg tablet Active ? Not avai lable prednisone 20 mg tablet Completed 02/07/2016 02/14/20 16 1 (one) Tablet: once a day ProAir HFA 90 mcg/actuation aerosol inhaler Active ? Not available Inhale 2 puffs every 4-6 hours by inhalation route as needed. ProChamber Active ? Not available promethazine 25 mg tablet Completed 12/30/20102010 1 (one) Tablet: Every 4 to 6 hours as needed Requip 1 mg tablet Completed 12/04/2011 12/04/2011 1 Tablet: at bedtime rosuvastatin 40 mg tablet Active ? Not av ailable Take one tablet daily simvastatin 80 mg tablet Completed 06/14/2010 010 1 (one) Tablet: at bedtime Singulair 10 mg tablet Completed 08/30/2010 0 1 (one) Tablet: daily sumatriptan 50 mg tablet Active ? Not amrik ilable Tamiflu 75 mg capsule Completed ? 03/18/2020 Take 1 capsule twice a day by oral route for 5 days. terbinafine HCl 250 mg tablet Completed ? topiramate 50 mg tablet Active ? Not avai lable TAKE 1 TABLET BY MOUTH AT BEDTIME tramadol 50 mg tablet Completed 07/03/2014 07/19/2015 1-2 Tablet Tablet: every 4-6 hours as needed for pain trazodone 50 mg tablet Completed 05/27/2013 3 1/2 - 1 Tablet: at bedtime Tylenol-Codeine #3 300 mg-30 mg tablet Completed 9 11/24/2008 1 (one) Tablet: every four hours, as needed Valtrex 1 gram tablet Completed 01/18/2011 01/18/2011 2 (two) Tablet: two times daily Vicodin 5 mg-300 mg tablet Completed 03/08/201510/15 1 (one) Tablet: daily, as needed vitamin B complex tablet Active ? Not amrik ilable Take 1 tablet every day by oral route in the morning. Vitamin B-12 500 mcg tablet Completed 11/19/201506/18 1 (one) Tablet: qam - every morning Xopenex HFA 45 mcg/actuation aerosol inhaler Completed 10/14/2013 2 (two) Puff(s): every 4-6 hours as needed Zofran ODT 4 mg disintegrating tablet Completed 12/25/2013 07/03/2014 1 (one) Tablet Disperse Tablet Disperse: as needed Zomig 5 mg tablet Completed 01/01/2013 01/01/2013 1 tablet(s): one time at onset of headache may repeat after 2 h Problems Name Status Onset Date Source ? [...] Obstructive Sleep Apnea Syndrome Active ? History Postoperative Pain Unknown ? History Migraine Active ? History Carpal Tunnel Syndrome Active ? History Conjunctivitis Unknown ? History Essential Hypertension Unknown ? History Hypertensive Disorder Active ? History Acute Upper Respiratory Infection Unknown ? History Sinusitis Unknown ? History Allergic Rhinitis Active ? History Asthma Active ? History Chronic Constipation Active ? History Neurogenic Dysfunction of the Urinary Active ? History Bladder Contact Dermatitis Active ? History Urticaria Active ? History Idiopathic Osteoarthritis Active ? Histor y Disorder of Shoulder Unknown ? History Inflammatory Spondylopathy Active ? Histo ry Backache Active ? History Dizziness and Giddiness Active ? History Sleep Disorder Unknown ? History Sleep Apnea Unknown ? History Lack of Energy Active ? History Cough Unknown ? History Chest Pain Unknown ? History Diarrhea Unknown ? History Abdominal Pain Unknown ? History Right Upper Quadrant Pain Unknown ? Histor y Thyroid Function Tests Abnormal Active ? History Laceration of Upper Arm Unknown ? History Injury of Ankle Unknown ? History Allergic Disposition Unknown ? History Disorder of Skin And/or Subcutaneous Unknown ? History Tissue Therapeutic Drug Monitoring Assay Active ? History Adult Health Examination Active ? History Finding of Esophagus Unknown ? History Procedure by Method Unknown ? History Pain in Eye Unknown ? History Pain of Right Shoulder Joint Active ? His tory Procedure Unknown ? History Pain in Left Knee Active ? History [...] ? Tubal Ligation Information not avai lable 02/11/2019 DEXA, Axial Skeleton [facility] (Radiology) [facility] [facility] [address] [place] [id number] (Work Place) 03/18/2020 Electrocardiogram P_nc Primary Care Ne [address] [phone] (Work Place) 08/31/2020 MAMMO, Screening, Tomosynthesis, [facility] (Radiology) Bilateral [address] [place] [address] [address] [place] [address] (Work Place) Notes: Salpingectomy Unilateral Ectopic Surgical debridement of left trochanteri c bursa with IT band tenotomy Results Lab Results Date Name Specimen Result Interpretation Description Value Range Status Address ? 03/18/2020 HbA1C (Hemoglobin BLD ? Ha1C 5.4 % 4.0-6.0 % Final [facility] a1C), Blood Hospi steve Lab (Internal) : [address] 03/18/2020 TSH, Serum or S High Tsh 6.47 0.47-4.68 Fin al [facility] Plasma u[IU]/mL u[IU]/mL Hospit al Lab (Internal) : [address] 03/18/2020 BMP, Serum or S High g/r 114 74-106 Final [facility] Plasma mg/dL mg/dL Hospital L ab (Internal) : [address] t ? ? S ? Bun 13 mg/dL 7-17 Final [place] mg/dL Hospital L ab (Internal) : [address] t ? ? S ? Crea 0.80 0.52-1.04 Final [facility] ountry mg/dL mg/dL Hospital L ab (Internal) : [address] ? ? S ? Ca 9.0 8.4-10.2 Final [facility] untry mg/dL mg/dL Hospital L ab (Internal) : [address] ? ? S ? Na 143 137-145 Final [facility] ntry mmol/L mmol/L Hospital L ab (Internal) : [address] t ? ? S ? K 3.5 3.5-5.1 Final [facility] ntry mmol/L mmol/L Hospital L ab (Internal) : [address] ? ? S High Cl 110 98-107 Final [place] [facility] mmol/L mmol/L Hospital L ab (Internal) : [address] t ? ? S ? Tco2 24.0 22.0-30.0 Final [facility] ountry mmol/L mmol/L Hospital L ab (Internal) : [address] 03/18/2020 Electrocardiogram ? Rate & ? ? ? P_nc Primary Rhythm Care [place]: [address] [facility] ? ? ? Qrs ? ? ? P_nc Prima ry Care [place]: [address] [facility] ? ? ? [place] ? ? ? P_nc Prima ry Interval Care [place]: [address] [facility] ? ? ? QRS ? ? ? P_nc Prima ry Duration Care [place]: [address] [facility] ? ? ? QT ? ? ? P_nc Prima ry Interval Care [place]: [address] [facility] 01/07/2020 COVID-19 RNA SWAB ? Covid-19 negative negative Final [facility] (SARS-CoV-2), , [facility] Lab water and fire technician-PCR, Result (Interna l): Respiratory [address] Specimen Alyce Anderson ort ? ? SWAB ? [facility] ? Final [facility] g Lab hospital Hospital Lab lab (Internal[facility] [address] [facility] 06/26/2019 Visual Acuity ? R Eye 20/70 ? ? P_nc Primary Uncorrecte Care [place]: d [address] [facility] ? ? ? L Eye 20/50 ? ? P_nc Prima ry Uncorrecte Care [place]: d [address] [facility] [address] [facility] 02/17/2019 Rapid Flu (A+B) ? Flu negative ? ? P_nc Primary Care [place]: [address] [facility] [address] [facility] [facility] 02/12/2019 Lipid Panel, ? No ? ? ? [facility] Serum observatio [facility] n [facility] recorded. Hospita l: [address], [place] 02/12/2019 Hepatitis C Virus ? No ? ? ? [facility] Ab, Serum observatio [facility] n Regional recorded. Hospita l: [address], [place] 11/11/2018 CRP, High S High Rcrp 0.46 0.10-0.30 Final [facility] Sensitivity, mg/dL mg/dL Hosp ital Lab Serum or Plasma ( Internal): [address] t 11/11/2018 ESR (Erythrocyte BLD - Esr 20 mm/h 0-30 mm/h Final [facility] Lab Rate), Blood (Int ernal): [address] [facility] t 11/11/2018 HbA1C (Hemoglobin BLD - Ha1C 5.6 % 4.0-6.0 % Final [facility] a1C), Blood Shreya wilson Lab (Internal) : [address] [facility] t 11/11/2018 Rf (Rheumatoid BLD - Rf negative negative F inal [place] Factor), Serum < 10 < 10 Ho spital Lab [IU]/mL [IU]/mL (Interna l): [address] 11/11/2018 TSH, Serum or S High Tsh 6.64 0.47-4.68 Fin al [place] Plasma u[IU]/mL u[IU]/mL Hospit al Lab (Internal) : [address] 11/11/2018 KRISTY (Antinuclear S - KRISTY negative negat F inal [place] Antibodies) Interpreta H ospital Lab Screen, Serum tion (I nternal): [address] 11/11/2018 Cyclic S - Cyclic <15.6 U <20.0 Final [facility] Citrullinated Citrullina (negative Hospital Lab Peptide Ab, Quant caity ) U (Internal): Immunoassay, Peptide [address] Serum Ab, S Joan Anderson 08/14/2018 Drug Screen, UR - Thc negative neg (50 Charleen l [place] Urine NG/mL NG/mL) Hospital L ab NG/mL (Internal) : [address] ? ? UR - Pcp negative neg (25 Final [place] NG/mL) Hospital L ab (Internal) : [address] ? ? UR - Ewa negative neg (150 Final [place] NG/mL) Hospital L ab (Internal) : [address] ? ? UR - Met negative neg (500 Final [place] NG/mL) Hospital L ab (Internal) : [address] ? ? UR - Opi negative neg (100 Final [place] NG/mL) Hospital L ab (Internal) : [address] ? ? UR - Amp negative neg (500 Final [place] NG/mL) Hospital L ab (Internal) : [address] ? ? UR - Bzo negative neg (150 Final [place] NG/mL) Hospital L ab (Internal) : [address] ? ? UR - Tca negative neg (300 Final [place] NG/mL) Hospital L ab (Internal) : [address] ? ? UR - Mtd negative neg (200 Final [place] NG/mL) Hospital L ab (Internal) : [address] t ? ? UR - Bar negative neg (200 Final [place] NG/mL) Hospital L ab (Internal) : [address] t ? ? UR - Oxy negative neg (100 Final [place] NG/mL) Hospital L ab (Internal) : [address] t ? ? UR - Ppx negative neg (300 Final [place] NG/mL) Hospital L ab (Internal) : [address] t ? ? UR - Bup negative neg (10 [facility] [place] NG/mL) Hospital L ab (Internal) : [address] 01/30/2018 Drug Screen, UR - Thc negative neg (50 Charleen l [place] Urine NG/mL NG/mL) Hospital L ab NG/mL (Internal) : [address] t ? ? UR - Pcp negative neg (25 Final [place] NG/mL) Hospital L ab (Internal) : [address] t ? ? UR - Ewa negative neg (150 Final [place] NG/mL) Hospital L ab (Internal) : [address] t ? ? UR - Met negative neg (500 Final [place] NG/mL) Hospital L ab (Internal) : [address] t ? ? UR - Opi negative neg (100 Final [place] NG/mL) Hospital L ab (Internal) : [address] ? ? UR - Amp negative neg (500 Final [place] NG/mL) Hospital L ab (Internal) : [address] t ? ? UR - Bzo negative neg (150 Final [place] NG/mL) Hospital L ab (Internal) : [address] t ? ? UR - Tca negative neg (300 Final [place] NG/mL) Hospital L ab (Internal) : [address] t ? ? UR - Mtd negative neg (200 Final [place] NG/mL) Hospital L ab (Internal) : [address] ? ? UR - Bar negative neg (200 Final [place] NG/mL) Hospital L ab (Internal) : [address] t ? ? UR - Oxy negative neg (100 Final [place] NG/mL) Hospital L ab (Internal) : [address] [place] ? ? UR - Ppx negative neg (300 Final [place] NG/mL) Hospital L ab (Internal) : [address], [place] ? ? UR - Bup negative neg (10 Final [place] NG/mL) Hospital L ab (Internal) : [address], [place] t 12/03/2017 Drug Screen, UR ? Thc negative neg (50 Charleen l [place] Urine NG/mL NG/mL) Hospital L ab NG/mL (Internal) : [address] [place] ? ? UR ? Pcp negative neg (25 Final [place] NG/mL) Hospital L ab (Internal) : [address], [place] ? ? UR ? Ewa negative neg (150 Final [place] NG/mL) Hospital L ab (Internal) : [address], [place] ? ? UR ? Met negative neg (500 Final [place] NG/mL) Hospital L ab (Internal) : [address], [place] ? ? UR ? Opi negative neg (100 Final [place] NG/mL) Hospital L ab (Internal) : [address], [place] ? ? UR ? Amp negative neg (500 Final [place] NG/mL) Hospital L ab (Internal) : [address], [place] ? ? UR ? Bzo negative neg (150 Final [place] NG/mL) Hospital L ab (Internal) : [address], [place] ? ? UR ? Tca negative neg (300 Final [place] NG/mL) Hospital L ab (Internal) : [address] [place] ? ? UR ? Mtd negative neg (200 Final [place] NG/mL) Hospital L ab (Internal) : [address] [place] ? ? UR ? Bar negative neg (200 Final [place] NG/mL) Hospital L ab (Internal) : [address], [place] ? ? UR ? Oxy negative neg (100 Final [place] NG/mL) Hospital L ab (Internal) : [address], [place] ? ? UR ? Ppx negative neg (300 Final [place] NG/mL) Hospital L ab (Internal) : [address] ? ? UR ? Bup negative neg (10 Final [place] NG/mL) Hospital L ab (Internal) : [address] Ja[address] dickey 10/15/2017 Venipuncture BLD ? Venpn* ? ? Final [facility] [place] Hospital L ab (Internal) : [address] 10/15/2017 Glucose, Serum or S ? g/r 103 74-106 Fi nal [place] Plasma mg/dL mg/dL Hospital L ab (Internal) : [address] 10/15/2017 HbA1C (Hemoglobin BLD ? Ha1C 5.8 % 4.0-6.0 % Final [place] a1C), Blood Hospi steve Lab (Internal) : [address] 09/05/2017 Drug Screen, UR ? Thc negative neg (50 Charleen l [place] Urine NG/mL NG/mL) Hospital L ab NG/mL (Internal) : [address] t ? ? UR ? Pcp negative neg (25 Final [place] NG/mL) Hospital L ab (Internal) : [address] t ? ? UR ? Ewa negative neg (150 Final [place] NG/mL) Hospital L ab (Internal) : [address] t ? ? UR ? Met negative neg (500 Final [place] NG/mL) Hospital L ab (Internal) : [address] t ? ? UR ? Opi negative neg (100 Final [place] NG/mL) Hospital L ab (Internal) : [address] t ? ? UR ? Amp negative neg (500 Final [place] NG/mL) Hospital L ab (Internal) : [address] t ? ? UR ? Bzo negative neg (150 Final [place] NG/mL) Hospital L ab (Internal) : [address] t ? ? UR ? Tca negative neg (300 Final [place] NG/mL) Hospital L ab (Internal) : [address] t ? ? UR ? Mtd negative neg (200 Final [place] NG/mL) Hospital L ab (Internal) : [address] t ? ? UR ? Bar negative neg (200 Final [place] NG/mL) Hospital L ab (Internal) : [address], [place] ? ? UR ? Oxy negative neg (100 Final [place] NG/mL) Hospital L ab (Internal) : [address] [place] ? ? UR ? Ppx negative neg (300 Final [place] NG/mL) Hospital L ab (Internal) : [address] [place] ? ? UR ? Bup negative neg (10 Final [place] NG/mL) Hospital L ab (Internal) : [address] 06/19/2017 Drug Screen, UR ? Thc negative neg (50 Charleen l [place] Urine NG/mL NG/mL) Hospital L ab NG/mL (Internal) : [address] [place] ? ? UR ? Pcp negative neg (25 Final [place] NG/mL) Hospital L ab (Internal) : [address] [place] ? ? UR ? Ewa negative neg (150 Final [place] NG/mL) Hospital L ab (Internal) : [address], [place] ? ? UR ? Met negative neg (500 Final [place] NG/mL) Hospital L ab (Internal) : [address] [place] ? ? UR ? Opi negative neg (100 Final [place] NG/mL) Hospital L ab (Internal) : [address], [place] ? ? UR ? Amp negative neg (500 Final [place] NG/mL) Hospital L ab (Internal) : [address] [place] ? ? UR ? Bzo negative neg (150 Final [place] NG/mL) Hospital L ab (Internal) : [address], [place] ? ? UR ? Tca negative neg (300 Final [place] NG/mL) Hospital L ab (Internal) : [address] [place] ? ? UR ? Mtd negative neg (200 Final [place] NG/mL) Hospital L ab (Internal) : [address], [place] ? ? UR ? Bar negative neg (200 Final [place] NG/mL) Hospital L ab (Internal) : [address], [place] ? ? UR ? Oxy negative neg (100 Final [place] NG/mL) Hospital L ab (Internal) : [address] [place] ? ? UR ? Ppx negative neg (300 Final [place] NG/mL) Hospital L ab (Internal) : [address] [place] ? ? UR ? Bup negative neg (10 Final [place] NG/mL) Hospital ab (Internal) : [address] Past Encounters 08/31/2020 Umbilical Discharge; Hang Nail; Screenin g Mammography JOSEY Colbert: [address] [place] [address], Ph. 08/23/2020 Obstructive Sleep Apnea Syndrome; Hypers omnia; Burning Mouth Syndrome Diane Magaña MD, Board Certified Sleep Ph ysician: [address] [place] [phone], Ph. 08/09/2020 Obstructive Sleep Apnea Syndrome; Hypers omnia; Burning Mouth Syndrome Diane Magaña MD, Board Certified Sleep Ph ysician: [address] [place] [phone], Ph. 07/12/2020 Obstructive Sleep Apnea Syndrome; Hypers omndre Magaña MD, Board Certified Sleep Ph ysician: [address] [place] [phone], Ph. 04/12/2020 Obstructive Sleep Apnea Syndrome; Hypers omndre Magaña MD, Board Certified Sleep Ph ysician: [address] [place] [phone], Ph. 03/18/2020 Pre-surgery Evaluation; Prediabetes; Hyp othyroidism JOSEY Colbert: [address] [place] [address], Ph. 07/21/2019 Pain of Left Shoulder Joint; Carpal Tunn el Syndrome of Right Wrist JOSEY Colbert: [address] [place] [address], Ph. 07/14/2019 Obstructive Sleep Apnea Syndrome; Hypers omndre Magaña MD, Board Certified Sleep Ph ysician: [address] [place] [phone], Ph. 06/26/2019 Bacterial Conjunctivitis JOSEY Colbert: [address] [place] [address], Ph. 2019 Obstructive Sleep Apnea Syndrome Diane Magaña MD, Board Certified Sleep Ph ysician: [address] [place] [address] [address], [place] [address], Ph. Social History Tobacco Smoking Status Former Smoker Notes: quit Vaccine List Vaccine Type influenza, seasonal, injectable 07/18/2000 Td (adult), adsorbed 09/17/1987 Tdap 04/24/2017?0.5 mL Plan of Care Patient Instructions Your burning mouth symptoms are now better, after you started the B vitamins. You havent started cpap back up due to ward jose, but you feel ready to start this week. This is what I suggest: Turn up your humidifier setting to 3, an d go up from there if needed. You can keep the tube temperature settin g at 1, and increase if you want the air warmer. Continue Vitamin B12 1000mcg and B-compl ex once daily in morning, as this appears to be helping resolve the burning mouth sensation. Try to keep your mouth closed during sle ep, which can also help reduce the burning mouth symptom. follow up in 1 month for cpap compliance check. Unfortunately using cpap triggered burning mouth sensation [...] in 2 weeks for cpap compliance check. You started your cpap therapy and f [...] in 1 month for cpap compliance check. We will re-start cpap LISA, request sent to [facility]. Call [facility] in one week if you dont hear from them regarding your cpap set up. Setting at auto cpap 5 to 12cm. will ask for nasal pillows as that worked well last time. try to start machine before your sugery and use it throughout surgery, including bringing it to hospital. follow up in 1 to 2 month for cpap compl iance check. Your having great results with tryi ng cpap again this time thru nasal pillows mask. Increase your usage. Move the machine to wherever you are sleeping. Aim for at least 4.5 hours every night so the insurance will allow you to keep the machine. I do suggest you add the chin strap, thi s will ensure the machine is actually treating your sleep apnea instead of blowing pressure air out your mouth. I will make adjustments to your settings to auto cpap 5 to [id number] to reflect titration sleep study results. Remember to bring your machine each time to sleep clinic so I can make changes and look at data as needed. follow up in 1 month for compliance chec k. Your sleep study shows Obstructive Sleep Apnea and we discussed your treatment options. You expressed good understanding and agreed to proceed with CPAP/BIPAP therapy. We discussed process of initiating thera py, commonly encountered problems and ways to get help and troubleshoot them. I have sent a script for new machine to the following Durable Medical Equipment Provider. Please contact them in 2 week if you do not hear from them by then. [x ] [facility] [place]: [address], [place], [place]; They will make an appointment for you to lemon picker the machine and show you how to put on the mask and operate the machine. Making the effort to use your machine ev haris time you sleep is very important, especially as you get used to therapy. Please call them if you have any questions on how to use machine or use your mask. Ca ll them if your mask is not fitting righ t and need to be fitted with a new one. This is important to do as early as possible. We discussed having a Titration Sleep St udy before your next appointment, we will make arrangements for this including getting prior authorization. If your titration sleep study is not scheduled within next 2 weeks, please call us for status update. Please call Sleep Clinic if you have any other concerns or problems before your next appointment. Remember to bring your entire PAP radio communications superintendent including mask, hose, and plug to your future appointme nts. This allows me to provide you with the best patient care and address any of your questions/concerns on therapy. Reminders Provider Appointments None recorded. ? ? Lab None recorded. ? ? Referral None recorded. ? ? Procedures None recorded. ? ? Surgeries None recorded. ? ? Imaging None recorded. ? ? Vitals 08/31/2020 12:40PM Same Day 20 Height Weight BMI Blood Pressure 154.94 cm 82.24 kg 34.3 kg/m2 122/82 mm[Hg] 08/23/2020 02:45PM Office 30 Height Weight BMI 154.94 cm 81.65 kg 34 kg/m2 08/09/2020 09:30AM Office 30 Height Weight BMI 154.94 cm 81.65 kg 34 kg/m2 07/12/2020 10:00AM Office 30 Height Weight BMI 154.94 cm 81.65 kg 34 kg/m2 04/12/2020 11:30AM Office 30 Height Weight BMI 154.94 cm 83.91 kg 35 kg/m2 03/18/2020 12:40PM Preop Clearance 40 Height Weight BMI Blood Pressure 154.94 cm 88.27 kg 36.8 kg/m2 118/74 mm[Hg] 07/21/2019 09:40AM Follow Up 20 Height Weight BMI Blood Pressure 154.94 cm 86.23 kg 35.9 kg/m2 118/68 mm[Hg] 07/14/2019 11:30AM Office 30 Height Weight BMI Blood Pressure 154.94 cm 85.28 kg 35.5 kg/m2 110/70 mm[Hg] 06/26/2019 11:20AM Same Day 20 Height Weight BMI Blood Pressure 154.94 cm 86.05 kg 35.8 kg/m2 132/74 mm[Hg] 2019 09:00AM New Patient 45 Height Weight BMI Blood Pressure 154.94 cm 85.77 kg 35.7 kg/m2 130/72 mm[Hg] 02/17/2019 12:20PM Acute 20 Height Weight BMI Blood Pressure 154.94 cm 84.03 kg 35 kg/m2 126/82 mm[Hg] 02/11/2019 01:40PM CPE 40 Height Weight BMI Blood Pressure 154.94 cm 85.3 kg 35.5 kg/m2 120/72 mm[Hg] 12/31/2018 02:20PM Acute 20 Height Weight BMI Blood Pressure 154.94 cm 85.18 kg 35.5 kg/m2 126/80 mm[Hg] 11/11/2018 11:20AM Acute 40 Height Weight BMI Blood Pressure 154.94 cm 85.79 kg 35.7 kg/m2 120/88 mm[Hg] 08/14/2018 02:40PM Office NASEEM 60 Height Weight BMI Blood Pressure 154.94 cm 84.99 kg 35.4 kg/m2 110/78 mm[Hg] 05/24/2018 10:00AM Acute 20 Height Weight BMI Blood Pressure 154.94 cm 83.23 kg 34.7 kg/m2 118/82 mm[Hg] 01/30/2018 11:40AM Opioid Management 20 Height Weight BMI Blood Pressure 154.94 cm 86.64 kg 36.1 kg/m2 120/90 mm[Hg] 12/03/2017 Weight Blood Pressure 87.91 kg 120/70 mm[Hg] 10/17/2017 Weight Blood Pressure 85.73 kg 110/80 mm[Hg] 09/05/2017 Weight Blood Pressure 84.37 kg 110/84 mm[Hg] 06/19/2017 Height Weight Blood Pressure 154.94 cm 85.05 kg 132/78 mm[Hg] 05/04/2017 Height Weight Blood Pressure 154.94 cm 84.1 kg 112/76 mm[Hg] 04/24/2017 Height Weight Blood Pressure 154.94 cm 84.37 kg 124/84 mm[Hg] 01/29/2017 Weight Blood Pressure 83.87 kg 126/76 mm[Hg] 01/03/2017 Height Weight Blood Pressure 154.94 cm 83.46 kg 128/90 mm[Hg] 11/20/2016 Height Weight Blood Pressure 154.94 cm 84.14 kg 110/80 mm[Hg] 11/15/2016 Weight Blood Pressure 84.59 kg 110/72 mm[Hg] 09/21/2016 Weight Blood Pressure 84.37 kg 112/84 mm[Hg] 08/03/2016 Height Weight Blood Pressure 157.48 cm 83.01 kg 118/80 mm[Hg] 07/10/2016 Blood Pressure 128/90 mm[Hg] 06/05/2016 Height Weight Blood Pressure 154.94 cm 83.01 kg 124/80 mm[Hg] 04/21/2016 Weight Blood Pressure 83.55 kg 115/74 mm[Hg] 04/03/2016 Height Weight Blood Pressure 154.94 cm 84.64 kg 112/82 mm[Hg] 03/24/2016 Blood Pressure 138/84 mm[Hg] 02/07/2016 Blood Pressure 108/70 mm[Hg] 01/17/2016 Blood Pressure 104/74 mm[Hg] 12/09/2015 Weight Blood Pressure 85.55 kg 142/86 mm[Hg] 11/19/2015 Weight Blood Pressure 85.77 kg 114/88 mm[Hg] 11/15/2015 Blood Pressure 124/88 mm[Hg] 10/15/2015 Blood Pressure 138/98 mm[Hg] 07/29/2015 Blood Pressure 118/82 mm[Hg] 07/19/2015 Blood Pressure 110/80 mm[Hg] 05/04/2015 Height Weight Blood Pressure 154.94 cm 85.23 kg 108/70 mm[Hg] 03/08/2015 Weight Blood Pressure 84.32 kg 120/76 mm[Hg] 07/03/2014 Weight Blood Pressure 85 kg 132/88 mm[Hg] 04/17/2014 Weight Blood Pressure 84.59 kg 122/72 mm[Hg] 03/11/2014 Blood Pressure 140/80 mm[Hg] 01/27/2014 Weight Blood Pressure 84.28 kg 118/78 mm[Hg] 12/08/2013 Height Weight Blood Pressure 154.94 cm 83.73 kg 122/80 mm[Hg] 10/21/2013 Weight Blood Pressure 81.78 kg 118/83 mm[Hg] 10/14/2013 Weight Blood Pressure 82.1 kg 122/84 mm[Hg] 07/01/2013 Weight Blood Pressure 79.92 kg 90/58 mm[Hg] 05/27/2013 Weight Blood Pressure 79.02 kg 106/72 mm[Hg] 04/15/2013 Weight Blood Pressure 78.06 kg 98/66 mm[Hg] 03/10/2013 Weight Blood Pressure 78.15 kg 106/68 mm[Hg] 02/11/2013 Weight Blood Pressure 77.88 kg 118/66 mm[Hg] 01/01/2013 Height Weight Blood Pressure 154.94 cm 80.1 kg 98/64 mm[Hg] 06/25/2012 Height Weight Blood Pressure 154.94 cm 81.37 kg 112/68 mm[Hg] 06/03/2012 Weight Blood Pressure 83.64 kg 118/72 mm[Hg] 05/03/2012 Weight Blood Pressure 82.74 kg 124/80 mm[Hg] 05/01/2012 Height Weight Blood Pressure 156.21 cm 82.33 kg 100/70 mm[Hg] 03/18/2012 Weight Blood Pressure 82.78 kg 110/72 mm[Hg] 02/15/2012 Height Weight Blood Pressure 156.21 cm 81.28 kg 106/70 mm[Hg] 12/27/2011 Weight Blood Pressure 83.01 kg (1) 111/72 mm[Hg] (2) 111/68 mm[Hg] 12/20/2011 Weight Blood Pressure 82.87 kg 102/68 mm[Hg] 12/15/2011 Weight Blood Pressure 83.91 kg 108/68 mm[Hg] 12/04/2011 Weight Blood Pressure 82.28 kg 110/64 mm[Hg] 06/05/2011 Height Weight Blood Pressure 156.21 cm 81.6 kg 106/62 mm[Hg] 05/03/2011 Height Weight Blood Pressure 156.21 cm 81.6 kg (1) 116/70 mm[Hg] (2) 108/78 mm[Hg] 03/07/2011 Height Weight Blood Pressure 156.21 cm 79.7 kg 100/64 mm[Hg] 01/09/2011 Weight Blood Pressure 81.1 kg 104/68 mm[Hg] 12/30/2010 Weight Blood Pressure 79.47 kg 110/70 mm[Hg] 08/30/2010 Height Weight Blood Pressure 154.31 cm 80.74 kg 120/80 mm[Hg] 06/14/2010 Weight Blood Pressure 80.38 kg 110/70 mm[Hg] 01/24/2010 Weight Blood Pressure 78.93 kg 112/70 mm[Hg] 12/21/2009 Weight Blood Pressure 78.47 kg (1) 110/76 mm[Hg] (2) 118/68 mm[Hg] (3) 110/80 mm[Hg] 11/08/2009 Weight Blood Pressure 78.47 kg 110/68 mm[Hg] 03/09/2009 Blood Pressure 100/64 mm[Hg] 01/04/2009 Weight Blood Pressure 81.19 kg 98/60 mm[Hg] 11/24/2008 Weight Blood Pressure 78.47 kg 110/66 mm[Hg] 06/24/2008 Weight Blood Pressure 78.02 kg 98/64 mm[Hg] 06/10/2008 Weight Blood Pressure 77.11 kg 98/62 mm[Hg] 06/02/2008 Weight Blood Pressure 78.02 kg 104/60 mm[Hg] 02/28/2008 Weight Blood Pressure 72.12 kg 102/64 mm[Hg] 12/31/2007 Weight Blood Pressure 70.76 kg 108/68 mm[Hg] 12/18/2007 Weight Blood Pressure 78.47 kg 106/64 mm[Hg] 10/15/2007 Weight Blood Pressure 80.74 kg 98/62 mm[Hg] 05/17/2007 Blood Pressure 112/68 mm[Hg] 05/09/2007 Weight Blood Pressure 77.11 kg 118/80 mm[Hg] 04/24/2007 Weight Blood Pressure 76.2 kg 104/72 mm[Hg] 12/19/2006 Weight Blood Pressure 78.47 kg 112/72 mm[Hg] 12/05/2006 Weight Blood Pressure 78.02 kg 104/72 mm[Hg] 10/15/2006 Weight Blood Pressure 75.75 kg 102/72 mm[Hg] 08/27/2006 Weight Blood Pressure 75.3 kg 122/72 mm[Hg] 05/23/2006 Weight Blood Pressure 72.57 kg 102/76 mm[Hg] 01/15/2006 Weight Blood Pressure 73.03 kg 104/78 mm[Hg] 12/18/2005 Weight Blood Pressure 74.39 kg 122/78 mm[Hg] 10/03/2005 Weight Blood Pressure 72.57 kg 106/70 mm[Hg] 08/22/2005 Weight Blood Pressure 73.03 kg 104/64 mm[Hg] 07/31/2005 Weight Blood Pressure 73.48 kg 118/64 mm[Hg] 04/21/2005 Weight Blood Pressure 72.57 kg 98/82 mm[Hg] 12/19/2004 Weight Blood Pressure 74.84 kg 100/66 mm[Hg] 10/28/2004 Weight Blood Pressure 75.3 kg 108/78 mm[Hg] 10/14/2004 Weight Blood Pressure 74.84 kg 102/76 mm[Hg] 09/14/2004 Weight Blood Pressure 75.75 kg (1) 128/94 mm[Hg] (2) 122/94 mm[Hg] 08/31/2004 Weight Blood Pressure 76.2 kg (1) 128/96 mm[Hg] (2) 126/88 mm[Hg] 08/01/2004 Weight Blood Pressure 78.47 kg (1) 126/92 mm[Hg] (2) 126/94 mm[Hg]
--- OUTSIDE RECORDS SUMMARY | 2020-09-08 02:16 | XMS_ITS | Encounter Summary ---
:1960 Author Care Team Providers Name Role Phone Kerry MILLS Primary Care Provider [phone] [facility] Medical Records Primary Care Provider [phone] Reason for Visit Phone Call Visit; SLEEP [...] than half the time was spent in [id number] counseling. 1. Obstructive sleep apnea syndr ome [...] 6 week f/u in sleep clinic for [id number] 07/12/20: usage low due to surgery then [...] w/ mouth closed which can help too. 08/23/20: burning mouth symptoms are gone after vit b12/complex, asked her to continue, she coudlnt restart cpap due to coughing fits a night. but says these have now settled and she will try again this week. ? sleep apnea: care instruct ions 2. Hypersomnia 05/12/19: ESS 10 on untreated O SA 10/28/19: ESS 7 today, cpap usage low, w ill check after cpap usage improves 04/12/20: ESS 11, untreated moises 08/09/20, 08/23/20: ESS 12, still not usi ng cpap, monitor for improvement after she can tx MOISES 3. Burning mouth syndrome 08/09/20: developed sxs that s ound like burning mouth syndrome as above. will try b12/complex, she thinks cpap triggered it but still has it after cpap d/c'ed 08/23/20: burning mouth symptoms are gone , cont b12/complex correction, re-start cpap when she's ready after cough improves and monitor to see if it will worsen this. also advised to use adequate humidification Discussion Note Remember to always take precautio ns on drowsy driving. If you experience sleepiness while driving, find a safe area to rack puller and take a break. Research suggests taking [...] Sleep Clinic. Plan of Care Patient Instructions Your burning mouth symptoms are now better, after you started the B vitamins. You havent started cpap back up due to c ough, but you feel ready to start this [...] ? 1406 RxNorm Benzoin Rash ? ? 199408 RxNorm Milk Diarrhea ? ? 7052 RxNorm Morphine Nausea ? ? 753006 RxNorm Peanut Anaphylaxis ? ? 10027 RxNorm Percocet Itching ? ? 7407326 RxNorm Pineapple Other ? ? Tetanus Vaccines [...] Tobacco Smoking Status Former Smoker Notes: quit 85 Are you currently employed? N Blind [...] Information) Functional Status No Impairment. Past Encounters 08/23/2020 Obstructive Sleep Apnea Syndrome; Hypers omnia; Burning Mouth Syndrome Diane Magaña MD, Board Certified Sleep Ph ysician: [address] [place] [phone], Ph. 08/09/2020 Obstructive Sleep Apnea Syndrome; Hypers omnia; Burning Mouth Syndrome Diane Magaña MD, Board Certified Sleep Ph ysician: [address] [place] [address] 2, [place] [address], Ph. History of Present Illness Note: <p>The patient is home. The provider is {{home* in the office}}.

The patient has been positively identified and has consented to a telephone visit.

<b r></p><p>
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
</p><p>
Past medical history includes severe MOISES, CAD, asthma, chronic back pain (was on vicodin, allergic itch now off)

<strong>PREVIOUS SLEEP EVALUATION: </strong></p><p>
</p><p>Due to sleep on set insomnia, multiple nocturnal awakenings 2/2 pain, daytime [...] Mean SpO2 {{92# ____}}%. [place] SpO2 {{83# ____}}%.{{More than 5# ____}} minutes with SpO2 <= [...] REM. Excess REM sleep. Normal REM }}</p><p>
</p><p&gt ;Titration PSG on 08/07/10 showed optimal pressure cpap 11 and 12cm and mild PLMs 11.7/hr. Tried andfailed cpap and switched to oral appliance. (report not avail but summarized from other records)</ p><p>
</p><p>Previously seen on 06/05/[address] Sanchez [...] and more so during supine REM on 6 and 10 clicks. PLM 27/hr PLMa 5/hr. 3% desat used. arousal index 19/hr.</p&gt ;<p>
</p><p>She returned for re-evaluation on 05/12/19 at kind request of Kerry MILLS, noted for persistent symptoms on untreated MOISES and plan for re-starting treatment at auto cpap 6 to 18cm.</p><p>
</p><p><strong>Repeat Titra tion Polysomnogram</strong> on {{06/08/19# }} at Weight {{189# ____}} lbs and BMI {{35.7# }} kg/m2, tested CPAP {{4# ___}} to CPAP {{12# ___}} cmH2O.
Optimal pressure: CPAP 11 cm/H2O resolved significant apneas, hypopneas, snoring and desaturations including during supine REM sleep and supine NREM sleep, lateral NREM and right lateral REM sleep. CPAP [id number] was also tested but did not appear to offer additional benefit. Adequate oxygenation was maintained Resmed [id number], Nasal Pillows in Size Small, showed mostly acceptable leak profile. Heat Plant Specialist noted addition of chin strap would be beneficial to address intermittent mouth leak, and one was given to patient at e nd of study.
Arousal Index {{5# }}/hr. Periodic [...] Decreased REM sleep Normal REM Excess REM sle ep}}.</p><p>
</p><p>
</p><p&g t;<strong>TODAY: previously on apap 5 to 12cm via AirFit P10 small nasal pillows, not currently using due to coughing frequently at night</strong>
</p><p><strong>her burning mouth symptoms are improved since taking B vitamins</strong>
</p><p>she thinks she will be ready to try cpap again this summ</p> Review of Systems ? Notes: <p><span>A 10-point REVIEW O F SYSTEM was obtained and reviewed, includes CONSTITUTIONAL, EYES, NOSE, THROAT, RESPIRATORY, HEART, GASTROINTESTINAL, UROLOGIC, MUSCULOSKELETAL, P SYCHIATRY, SKIN systems. Pertinent symptoms are discussed in history, otherw ise negative.</span></p><p>fatigue daily</p><p>dry mouth, burning mouth is gone amazingly</p><p>freq cough
</p><p>wheezing
</p><p>heartburn
</p><p>diarrhea
</p><p>c onstipation
</p><p>headac hes
</p><p>joint pain
</p><p>muscle cramps
</p><p>difficulty sleeping</p><p>still using recliner</p> Physical Exam ? Notes: <p>Gen: no acute [...]

<strong>Cl inical Data Reviewed:</strong>

1. {{Modified Pediatric [place] Sleepiness Scale [place] Sleepiness Scale*}}: 12 out of {{24# 21 due to not d riving}} still not on cpap vs 7 on cpap and 10 on consult</p><p>
2. {{Sleep study results as above.# Sleep study results not available, requested Unable to obtain sleep study reports No sleep study reports}}

3. Aliciai ne Download Data: Not using currently, last avail download
{{Resmed AirSens e 10 Auto CPAP Resmed AirSense 10 Auto BIPAP Respironics Dreamstati on Auto CPAP* Respironics Dreamstation Auto BIPAP}}
PAP Settings: {{A uto CPAP# Auto BIPAP CPAP BIPAP}} 5 to [...] k:}} {{14M# Not significant Significant leak}}
<strong>Average AH I: {{5.9# enter}} per hour</strong>
{{Normal flow limitation [...]
--- OUTSIDE RECORDS SUMMARY | 2020-09-08 02:16 | XMS_ITS | Encounter Summary ---
:1960 Author Care Team Providers Name Role Phone Kerry MILLS Primary Care Provider [phone] [facility] Medical Records Primary Care Provider [phone] Reason for Visit ? infection Assessment and Plan 1. Umbilical discharge I will have pt use a q-tip simeon ly to dry umbilicus after bathing. She will start applying mupirocin 2% ointment wit h q-tip into her umbilicus. She does not have enough discharge for culture. I strongly advised Anay to avoid instrumentation of umbilicus. She will call for follow up i f no improvement. ? mupirocin 2 % topical oint ment 2. Hang nail Advised warm soaks and can ashley ly mupirocin to nailfold. 3. Screening mammography ? MAMMO, screening, tomosynt hesis, bilateral Discussion Note: None recorded.Patient educational handouts: No information available. Plan of Care Reminders Provider Appointments Cpe [address] Ascencio, 01/04/2021 GENE 1:40PM Lab None ? ? recorded. Referral None ? ? recorded. Procedures None ? ? recorded. Surgeries None ? ? recorded. Imaging [facility] [facility] [place] Screening, 08/31/2020 [facility] l Tomosynthesis, (Radiology) Bilateral Medications Name Start Date ? ? acetaminophen [...] Administered None recorded. Vitals Height Weight BMI Blood Pressure 5 ft 1 in 181 lbs 4.8 oz 34.3 kg/m2 122/82 mm[Hg] Results Lab Results None recorded. Allergies Code Code System Name Reaction Severity Onset Adhesive Tape Rash ? ? 723 RxNorm Amoxicillin Rash ? ? Animal Dander Other ? ? 1406 RxNorm Benzoin Rash ? ? 162409 RxNorm Milk Diarrhea ? ? 7052 RxNorm Morphine Nausea ? ? 150669 RxNorm Peanut Anaphylaxis ? ? 82458 RxNorm Percocet Itching ? ? 2372643 RxNorm Pineapple Other ? ? Tetanus Vaccines [...] ? Tubal Ligation Information not avai lable 08/31/2020 MAMMO, Screening, Tomosynthesis, [facility] (Radiology) Bilateral [address] [place] [address] (Work Place) Notes: Salpingectomy Unilateral Ectopic Surgical [...] Information) Functional Status No Impairment. Past Encounters 08/31/2020 Umbilical Discharge; Hang Nail; Screenin g Mammography Kerry Ascencio, PA: [address] [place] [phone], Ph. 08/23/2020 Obstructive Sleep Apnea Syndrome; Hypers omnia; Burning Mouth Syndrome Diane Magaña MD, Board Certified Sleep Ph ysician: [address] [place] [address] [address], [place] [address], Ph. 08/09/2020 Obstructive Sleep Apnea Syndrome; Hypers omnia; Burning Mouth Syndrome Diane Magaña MD, Board Certified Sleep Ph ysician: [address] [place] [address] [address], [place] [address], Ph. History of Present Illness Note: <p>Patient questions if her grandson scratched her umbilicus. She has since had discomfort and discharge. She is instrumenting the umbilicus recurrently. She notes clear to serosanguineous discharge. No f/c. No redness, warmth. </p><p>She notes intertrigo of left axilla b/c of sling use s/p RTC repair. </p> Review of Systems ? Comprehensive General Adult ROS Reported By: Patient Constitutional: Constitutional: no fever, no night sweats, no significant weight gain, no significant weight loss, no exercise intolerance, no chills, no malaise Integumentary: Skin: ; patient endorses dis charge from umbilicus, hang nail left index finger Physical Exam ? General Adult Exam (female) Reported By: Patient Constitutional: General Appearance: healthy- appearing, well-nourished, well-developed. Level of Dis tress: NAD. Ambulation: ambulating normally Head: Head: normocephalic, atrauma tic Skin: Inspection and palpation: ; patient has a deep umbilicus. There is no redness, warmth or discomfor t. I used a q-tip to assess for discharge. Very scant serosa nguineous discharge
[2020-09-08 12:30] LABS: TSH 6.33 uIU/mL (0.36-3.74)
== END 2020-09-08 02:33 ==
PROVIDERS: PCP Internal Medicine; Visit Provider Internal Medicine
DX: E03.9 Hypothyroidism, unspecified (principal)
CPT/HCPCS: 36415; 84443

== ENCOUNTER 2020-10-23 11:02 | Emergency (ER) | payer MEDICAID, SELFPAY ==
[2020-10-23 11:08] VITALS: BP 129/79; PULSE 77; RESP 18; TEMP 36.6; O2SAT 95
--- NOTE | 2020-10-23 11:31 | W.ED.GENAD ---
Discharge Plan Disposition Patient Disposition: HOME Condition: Improving Discharge Details Clinical Impression: Acute maxillary sinusitis Primary Care Provider: Kerry Ascencio ED Provider: Aydin Verduzco Home Meds and New Rx's Prescriptions: New clindamycin HCl 300 mg capsule 300 mg PO QID 7 Days Qty: 28 RF: 0 Continued citalopram [Celexa] 10 MG tablet 20 mg PO DAILY RF: 0 meclizine 12.5 MG tablet 25 mg PO TID PRNRF: 0 rosuvastatin [Crestor] 20 MG tablet 40 mg PO DAILY RF: 0 topiramate 50 MG tablet 50 mg PO HS RF: 0 sumatriptan succinate 50 MG tablet 50 mg PO DIRECTED PRNRF: 0 acyclovir 200 MG capsule 200 mg PO DIRECTED PRNRF: 0 levothyroxine 75 MCG tablet 75 mcg PO DAILY RF: 0 lisinopril 2.5 MG tablet 2.5 mg PO DAILY RF: 0 aspirin 81 MG tablet,delayed release (DR/EC) 81 mg PO DAILY RF: 0 epinephrine 0.3 MG/SYR auto-injector 0.3 mg IJ PRN PRN (Reason: Anaphylaxis) Qty: 1 RF: 0 nitroglycerin 0.4 MG tablet, sublingual 0.4 mg Sublingual DIRECTED RF: 0 ibuprofen 600 mg tablet 600 mg PO TID PRN (Reason: pain) Qty: 30 RF: 0 acetaminophen 500 mg capsule 500 mg PO Q4H PRN (Reason: pain) Qty: 30 RF: 0 cetirizine 10 mg Tablet 10 mg PO DAILY RF: 0 sennosides [senna] 8.6 mg Tablet 8.6 mg PO DAILY RF: 0 Discharge Instructions Instructions: Sinusitis (ED) Additional Instructions: Home to rest today. May continue your regular medications including Tylenol if needed for pain. Please take clindamycin as prescribed until finished. I recommend you take an [id number] probiotic once daily while on this medication. Please follow-up with regular doctor for recheck not improving in 3 days time. Return to the ER for any acute concerns. Medical Decision Making 60-year-old female presents from home. She has had 3 weeks of headache for which she was seen her primary care physician started on triptan 2 days ago for which she had 6 doses. Minimal improvement this morning with ongoing headache associated with photophobia and phonophobia. There no fall, no injury, no fever or stiff neck. She has otherwise been well. She arrives with normal vital signs and unremarkable neurologic exam. Diagnosis includes sinus infection, migraine headache, must exclude intracranial mass. Patient IV access established, given parenteral analgesia and dexamethasone. Referred for CT scan of the head. Imaging reveals no acute intracranial abnormality. Note of mild sinus disease in the maxillary and ethmoid air cells. Following medications patient is improving. She has a number of allergies but has tolerated clindamycin in the past. Therefore I do feel this is a good choice for treatment of sinusitis. Stable and appropriate for home. Improved. HPI General Mode of arrival: ambulatory. Date/Time Provider Initiated Documentation: 10/23/20 11:07. Limitations to Documentation: no limitations. Information obtained by: patient. History of Present Illness 60 year old F presents to the emergency department with the chief complaint of Headache, described as moderate and similar to prior episodes, Quality is described as dull and constant, and is localized to the head. Patient reports no radiation. Patient started experiencing this hour(s) and it has been constant. No relieving factors improve symptom(s), No exacerbating factors reported . Patient did receive the following treatments prior to arrival, other (Triptan) Related Data Home Medications Medication Instructions Recorded Confirmed citalopram [Celexa] 20 mg PO DAILY tab-cap 10/08/13 10/23/20 meclizine 25 mg PO TID PRN tab-cap 10/08/13 10/23/20 rosuvastatin [Crestor] 40 mg PO DAILY tab-cap 10/08/13 10/23/20 topiramate 50 mg PO HS 10/08/13 10/23/20 epinephrine 0.3 mg IJ PRN PRN #1 kit 07/21/16 10/23/20 acyclovir 200 mg PO DIRECTED PRN 06/01/17 10/23/20 sumatriptan succinate 50 mg PO DIRECTED PRN tab-cap 06/01/17 10/23/20 levothyroxine 75 mcg PO DAILY tab-cap 06/05/17 10/23/20 lisinopril 2.5 mg PO DAILY tab-cap 12/03/17 10/23/20 nitroglycerin 0.4 mg SUBLINGUAL DIRECTED 12/31/17 10/23/20 aspirin 81 mg PO DAILY tab 01/21/18 10/23/20 cetirizine 10 mg PO DAILY 12/20/18 10/23/20 sennosides [senna] 8.6 mg PO DAILY 03/22/20 10/23/20 acetaminophen 500 mg PO Q4H PRN #30 cap 08/11/20 10/23/20 ibuprofen 600 mg PO TID PRN #30 tab 08/11/20 10/23/20 clindamycin HCl 300 mg PO QID 7 Days #28 cap 10/23/20 Previous Rx's Medication Instructions Recorded epinephrine 0.3 mg IJ PRN PRN #1 kit 07/21/16 acetaminophen 500 mg PO Q4H PRN #30 cap 08/11/20 ibuprofen 600 mg PO TID PRN #30 tab 08/11/20 clindamycin HCl 300 mg PO QID 7 Days #28 cap 10/23/20 Allergies Allergy/AdvReac Type Severity Reaction Status Date / Time acetaminophen [From Vicodin] Allergy Intermediate PRURITIS Verified 10/23/20 11:13 amoxicillin Allergy Intermediate Skin Rash Verified 10/23/20 11:13 hydrocodone [From Vicodin] Allergy Intermediate PRURITIS Verified 10/23/20 11:13 morphine Allergy Intermediate ITCHY, SICK Verified 10/23/20 11:13 peanut Allergy Intermediate Anaphylaxsi Verified 10/23/20 11:13 s tetrabenazine Allergy Intermediate RASH,HIVES Verified 10/23/20 11:13 tree nut Allergy Intermediate Anaphylaxsi Verified 10/23/20 11:13 s adhesive AdvReac Intermediate RASH AND Verified 10/23/20 11:13 SWELLING alcohol AdvReac Intermediate RASH Verified 10/23/20 11:13 [From Mastisol Liquid Adhesive] gum mastic AdvReac Intermediate RASH Verified 10/23/20 11:13 [From Mastisol Liquid Adhesive] methyl salicylate AdvReac Intermediate RASH Verified 10/23/20 11:13 [From Mastisol Liquid Adhesive] storax AdvReac Intermediate RASH Verified 10/23/20 11:13 [From Mastisol Liquid Adhesive] benzoin AdvReac Mild Skin Rash Verified 10/23/20 11:13 cat dander AdvReac Mild WATERY EYES Verified 10/23/20 11:13 milk AdvReac Unknown Verified 10/23/20 11:13 pollen extracts AdvReac Unknown watery eyes Verified 10/23/20 11:13 dog dander AdvReac WATERY EYES Verified 10/23/20 11:13 RAW FRUIT Allergy Unknown Uncoded 10/23/20 11:13 DUST AdvReac Unknown Uncoded 10/23/20 11:13 General Stated Complaint: Headache MANNIE: 3 Review of Systems Narrative: 6 systems reviewed and otherwise negative COUNTS INCLUDE 234 BEDS AT THE [facility] Medical History Asthma Atypical chest pain Pt. states They don't know what it is, Dr. Oglesby thinks its just muscular, and not cardiac related Chronic back pain Colicky RUQ abdominal pain Complete tear of right rotator cuff (12/03/17) De Quervain's tenosynovitis, left Depression Elevated cholesterol Fatigue GERD (gastroesophageal reflux disease) HTN (hypertension) Hypothyroidism Insomnia Migraines Mild intermittent asthma without complication (11/08/15) Obesity Overactive bladder Seborrheic keratosis (12/15/16) upper back of left arm Sleep apnea now uses a CPAP machine Tendonitis of left rotator cuff Injection: 08/04/2019 Trochanteric bursitis, left hip S/P ITB tenotomy and bursal debridement DOS: 12/24/18 Dr. 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 Date of surgery: 04/16/18 Dr. Perez Family History Mother Essential hypertension Spinal stenosis Stroke Atrial fibrillation Father Essential hypertension Heart disease Myocardial infarction Brother Atrial fibrillation Essential hypertension Prostate cancer Social History Smoking/Tobacco Use Status: Former Tobacco Use Quit Date: 09/17/84 Pack-years: 12 Smoking risk assessment performed?: Yes Alcohol Intake: never Drug use: Never Substance use type: does not use Household members: significant other Number of Children: 1 Current gender identity: female Seatbelt use: sometimes Do you feel safe at home: Yes Do you feel safe in your relationship?: Yes Additional Social history: Quit smoking 1984 Exam Narrative Exam Narrative: GEN: awake, alert, oriented 3. Pleasant, well groomed, interactive. HEAD: Normocephalic, atraumatic ENT: Mucous membranes moist, oropharynx unremarkable, tympanic membranes clear bilaterally, external ear exam unremarkable EYES: PERRL, EOMI NECK: Full ROM, no KELVIN, no menigismus CHEST/RESP: Nontender, clear to auscultation bilateral, no wheeze/rhonchi/rales CARDIOVASCULAR: RRR, no murmur, rub debby. 2+ Rad pulse bilateral ABDOMEN: Soft, nontender, no mass. +Bowel sounds EXT: Full ROM, no edema, no rash Neuro: Grossly normal neurologic exam, conversant, interactive. Gait narrow based with good heel strike Psych: Speech fluent, thoughts congruent, affect normal Course Vital Signs Vital signs: Vital Signs Temperature 36.6 C 10/23/20 11:08 Pulse 77 10/23/20 11:08 Respiratory Rate 18 10/23/20 11:08 Blood Pressure 129/79 10/23/20 11:08 Pulse Oximetry 95 10/23/20 11:08 Temperature 36.6 C 10/23/20 11:08 Temperature Source Temporal Artery Scan 10/23/20 11:08 Pulse 77 10/23/20 11:08 Respiratory Rate 18 10/23/20 11:08 Respiratory Effort Non-Labored 10/23/20 11:12 Blood Pressure 129/79 10/23/20 11:08 Blood Pressure Position Sitting 10/23/20 11:08 Pulse Oximetry 95 10/23/20 11:08 Oxygen Delivery Method Room Air 10/23/20 11:08 Oxygen Flow Rate 0 10/23/20 11:08 Pain Level 9 10/23/20 11:15
[2020-10-23] MEDS: Normal Saline 1,000 ML 1000 ML IV (11:55)
[2020-10-23] MEDS: Dexamethasone 4 MG/ML VIAL 8 MG IVP (11:57)
[2020-10-23] MEDS: Ketorolac 30 MG/ML VIAL IVP (11:59)
--- NOTE | 2020-10-23 12:00 | DI.CT_ITS ---
EXAM: CT HEAD WO CLINICAL HISTORY: headache, sinus pressure. TECHNIQUE: Imaging Protocol: Axial computed tomography images with coronal and sagittal reformatted images were created and reviewed COMPARISON: No exams were available for comparison FINDINGS: Ventricles and Extra axial spaces: Normal in size and morphology for the patient's age. Hemorrhage: None. Cerebral parenchyma: Normal. Midline shift: None. Brainstem/Cerebellum: Normal. Calvarium: Normal. Visualized Paranasal sinuses/Mastoids: There is mild mucosal thickening in the maxillary sinuses and anterior ethmoid air cells bilaterally. The remaining visualized paranasal sinuses are clear as are the mastoid air cells. Soft Tissues: Unremarkable. IMPRESSION: 1. No acute intracranial process. 2. Mild paranasal sinus disease. RADIATION DOSE DELIVERED: 692.14mGy.cm Total DLP DATA REPOSITORY: All CT scans at this facility are submitted to the National Radiology Data Registry (NRDR) Dose Index Registry (DIR) with the [employer] (ACR). RADIATION OPTIMIZATION: All CT scans at this facility use at least one of these dose optimization te chniques: automated exposure control; mA and/or kV adjustment per patient size (includes targeted exa ms where dose is matched to clinical indication); or iterative reconstruction.
[2020-10-23] MEDS: diphenhydrAMINE 50 MG/ML VIAL 25 MG IVP (12:16)
[2020-10-23 12:40] VITALS: BP 127/67; PULSE 68; RESP 17; TEMP 36.6; O2SAT 97
--- NOTE | 2020-10-23 12:42 | DI.VRAD_ITS ---
PROCEDURE INFORMATION: Exam: CT Head Without Contrast Exam date and time: 10/23/2020 12:28 PM Age: 60 years old Clinical indication: Pain; Headache TECHNIQUE: Imaging protocol: Computed tomography of the head without contrast. COMPARISON: No relevant prior studies available. FINDINGS: Brain: Normal. No hemorrhage. Unremarkable white matter. No mass effect. Cerebral ventricles: No ventriculomegaly. Bones/joints: Unremarkable. No acute fracture. Paranasal sinuses: There is mild multifocal mucosal thickening in the bilateral maxillary sinuses and anterior ethmoidal air cells. Mastoid air cells: Visualized mastoid air cells are well aerated. Soft tissues: Unremarkable. IMPRESSION: 1. No acute intracranial abnormality. 2. Mild sinus disease in the maxillary and ethmoidal air cells. Dictated and Authenticated by: Christiano Ramirez MD. Ordering:RICHARD Perrin MD
--- NOTE | 2020-10-24 13:38 | NUR.NOTE ---
Nursing Note: 1336--Agatha called stating she still has a headache. She wanted to know if she should try a sumatriptan. Was in the ER yesturday-CT scan result for sinusitis. States headache is not worse, just still there. Per Dr Verduzco may take Ibuprofen/tylenol/benadryl but not the sumatriptan. Also advised to add humidity to air/increase hydration/warm cloth to forehead. Verbalizes understanding.
== END 2020-10-23 13:25 | disposition home or self-care (01) ==
PROVIDERS: Emergency Provider Emergency Medicine; PCP Internal Medicine
DX: J01.80 Other acute sinusitis (principal)
CPT/HCPCS: 96361; 96374; 96375; 99284; 70450; J1100; J1200; J1885

== ENCOUNTER 2020-11-01 00:40 | Outpatient (CLI) | payer MEDICAID, SELFPAY ==
--- NOTE | 2020-11-01 12:00 | DI.MAMMO_ITS ---
EXAM: MG MAMMO SCREENING CLINICAL HISTORY: SCREENING, Z12.31. TECHNIQUE: Bilateral full field digital CC and MLO mammographic images were obtained with 3D tomosyn thesis and utilizing computer aided detection (CAD). COMPARISON: Prior mammograms dating back to 2011, the most recent being November 2016. FINDINGS: There are no CAD designations. There are no spiculated masses nor malignant appearing microcalcification groups. Small benign-appear ing lymph node in the left axillary tail is unchanged. There is no significant architectural distort ion nor skin thickening-retraction. IMPRESSION: No radiographic evidence of malignancy. BI-RADS Category 1 - Negative Breast Density - Category B - Scattered areas of fibroglandular density Breast density Category C or D implies that the patient has dense breast tissue. Dense breast tissue can make it harder to find cancer on a mammogram. Dense breast tissue is also associated with an incr eased risk of breast cancer. This information about the result of the mammogram report was provided to the patient to raise their awareness. Use this report when you speak with the patient about their risks for breast cancer, which includes their family history. At that time, you may recommend additional screening tests (Ultrasoun d or MRI) as these tests may add significant information. A negative radiographic report should not delay biopsy if a dominant or clinically suspicious mass is present. Up to ten percent of cancers are not identified on mammography. A negative report may reinforce clinical impression. Adenosis and dense breasts may obscure an underlying neoplasm. False positive reports average 6 to 10%. Patient will receive a letter notifying them of these results.
== END 2020-11-01 00:41 ==
LOC: DI 00:41
PROVIDERS: PCP Internal Medicine; Visit Provider Internal Medicine
DX: Z12.31 Encounter for screening mammogram for malignant neoplasm of breast (principal)
CPT/HCPCS: 77063; 77067

== ENCOUNTER 2020-11-04 02:56 | Outpatient (CLI) | payer MEDICAID, SELFPAY ==
[2020-11-04 10:34] LABS: TSH 5.16 uIU/mL (0.36-3.74)
== END 2020-11-04 02:57 | disposition home or self-care (01) ==
PROVIDERS: PCP Internal Medicine; Visit Provider Internal Medicine
DX: E03.9 Hypothyroidism, unspecified (principal)
CPT/HCPCS: 36415; 84443

== ENCOUNTER 2020-11-11 01:49 | Outpatient (CLI) | payer MEDICAID, SELFPAY ==
--- NOTE | 2020-11-11 08:30 | DI.MRI_ITS ---
EXAM: MR UPPER JOINT LT WO CLINICAL HISTORY: PAIN-?RE-TEAR ROTATOR CUFF,,M75.122,M75.102 TECHNIQUE: Multiplanar multisequence MRI of the shoulder was performed. COMPARISON: CR XR WRIST LT COMP NAVICULAR from 04/19/2020 MR MR UPPER JOINT LT WO from 07/29/2020 FINDINGS: MARROW:There is no evidence of fracture, Hill-Sachs deformity, nor ominous osseous lesions. There are now multiple fastener channels in the humeral head implying revision since the prior MRI scan of 08/2020 ROTATOR CUFF MECHANISM: AC JOINT/ACROMIUM: There is susceptibility artifact at the level of the AC joint with evidence of ludivina or surgical decompression/widening of the AC joint again noted. Supraspinatus: Significant attenuation and abnormal signal with sliver of fluid in the subacromial bu rsa. There appears to have been further tearing. Infraspinatus: Intact. No evidence of tear nor muscle atrophy. Teres Minor: Intact. No evidence of tear nor muscle atrophy. Subscapularis/anterior cuff: Intact. No abnormal signal at the level of the multipennate insertional fibers. No significant tear . BICEPS TENDON: Normal position in the intertubercular groove. Appears attenuated No tenosynovitis. LABRUM: Biceps tendon is not visualized attached to the anterosuperior labrum. Superior labrum is so mewhat attenuated. Posterior labrum appears intact. Inferior labrum attenuated. Anterior labrum is intact. No evidence of paralabral cyst. GLENOHUMERAL JOINT: No joint effusion nor obvious loose intra-articular bodies. No chondral defects. No osteophytes. No degenerative subarticular cysts. No evidence of capsular tear. The inferior gle nohumeral ligament is intact. CAPSULE: No capsular tears evident. The inferior glenohumeral ligament is intact. QUADRILATERAL SPACE: No evidence of mass in the region of the axillary nerve and dorsal circumflex hu meral vessels. Visualized triceps muscle at this level appears unremarkable. IMPRESSION: 1. Compared to the prior MRI study of 07/29/2020 there appears to have been additional surgery. Rojo stacia, rotator cuff supraspinatus tendon appears increasingly attenuated/torn but without prominent ret raction. Other muscles of the rotator cuff mechanism appear intact. 2. Although the biceps tendon is seen within the intertubercular groove, it appears attenuated and it s intra-articular aspect is not seen attached to the anterosuperior labrum. Probable chronic tearing . 3. Some labral attenuation but without prominent abnormal intra labral signal nor evidence of paralab ral cyst. 4. Minimal degenerative changes of glenohumeral joint. No osteophytes. No degenerative subarticula r cysts evident. DATA REPOSITORY:
== END 2020-11-11 01:50 ==
LOC: DI 01:50
PROVIDERS: PCP Internal Medicine; Visit Provider Student in an Organized Health Care Education/Training Program
DX: M19.012 Primary osteoarthritis, left shoulder (principal); M25.511 Pain in right shoulder
CPT/HCPCS: 73221

== ENCOUNTER 2021-01-04 11:10 | Outpatient (CLI) | payer MEDICAID, SELFPAY ==
--- NOTE | 2021-01-04 11:09 | DI.RAD_ITS ---
EXAM: XR SHOULDER LT COMPLETE 2+V CLINICAL HISTORY: left shoulder pain TECHNIQUE: COMPARISON: CR XR SHOULDER LT COMPLETE 2+V from 08/04/2019 FINDINGS: Three views were obtained. There appears to been prior resection or injury of the distal clavicle. There is deformity of the distal clavicle and the acromion. Cartilaginous joint space of the glenohu meral joint appears fairly well maintained. Moderate marginal osteophyte formation of the humeral he ad noted, probable Hill-Sachs deformity noted. No other significant bony abnormality seen. IMPRESSION: No evidence of acute process. Presumed old left distal clavicular resection. RADIATION DOSE DELIVERED: Total DLP
== END 2021-01-04 11:11 | disposition home or self-care (01) ==
LOC: DIORS 11:11
PROVIDERS: PCP Internal Medicine; Referring Provider Internal Medicine; Visit Provider Student in an Organized Health Care Education/Training Program
DX: M25.512 Pain in left shoulder (principal); M25.712 Osteophyte, left shoulder
CPT/HCPCS: 73030

== ENCOUNTER 2021-01-21 04:13 | Outpatient (CLI) | payer MEDICAID, SELFPAY ==
--- NOTE | 2021-01-21 | DI.MRI_ITS ---
Exam(s) MR BRAIN WO/W EXAM: MR BRAIN WO/W CLINICAL HISTORY: VISUAL DISTURBANCE, H53.9 TECHNIQUE: Multiplanar multisequence MRI of the brain was performed. CONTRAST MATERIAL: IV Contrast: 17 ML of Dotarem contrast administered. COMPARISON: No exams were available for comparison FINDINGS: VENTRICLES AND EXTRA AXIAL SPACES: Normal in size and morphology for the patient's age. HEMORRHAGE: None. CEREBRAL PARENCHYMA: No focus of restricted diffusion to suggest acute infarct. No space-occupying le ren identified. Nonspecific hyperintense foci are seen in the white matter on the FLAIR and T2 weigh caity images. This may reflect microvascular ischemic disease. MIDLINE SHIFT: None. BRAINSTEM/CEREBELLUM: Normal. CALVARIUM: Normal. ENHANCEMENT: No suspicious enhancement identified. VISUALIZED PARANASAL SINUSES/MASTOIDS: Clear. [place] OF [place]: Normal flow void. PITUITARY GLAND: Unremarkable. The optic chiasm and infundibulum are unremarkable. No suprasellar ma ss is seen. OTHER FINDINGS: IMPRESSION: 1. Nonspecific hyperintense foci are seen in the white matter on the FLAIR and T2 weighted images. T hese may reflect microvascular ischemic disease. 2. No intracranial mass or enhancing lesion. DATA REPOSITORY:
--- NOTE | 2021-01-21 | DI.US_ITS ---
Exam(s) US CAROTID EXAM: US CAROTID CLINICAL HISTORY: VISUAL DISTURBANCE, H53.9. TECHNIQUE: Ultrasound carotids performed using grayscale, color-flow, and spectral Doppler imaging. COMPARISON: US US OR ANESTHESIA from 08/11/2020 FINDINGS: There is mild plaque noted at the level the carotid bulbs and proximal internal carotid arteries bila terally. However, there are no significantly elevated velocities at these levels. Flow is demonstrated to be antegrade in both vertebral arteries. Measurements: R Bulb: 63.6cm/s PS / 19.3cm/s ED R CCA: 104.8cm/s PS / 26.4cm/s ED R ECA: 100.9cm/s PS / 18.6cm/s ED R ICA Prox: 91.3cm/s PS /23.8cm/s ED R ICA Mid: 80.3cm/s PS / 27cm/s ED R ICA Distal: 91.9cm/s PS /36.6cm/s ED R Vert: 48.8cm/s PS / 13.5cm/s ED R SVR: 0.88 R DVR: 1.39 L Bulb: 84.2cm/s PS /24.4cm/s ED L CCA: 87.4cm/s PS / 25.1cm/s ED L ECA: 105.4cm/s PS /19.3cm/s ED L ICA Prox:80.3cm/s PS / 14.1cm/s ED L ICA Mid: 73.3cm/sPS / 19.3cm/s ED L ICA Distal: 77.8cm/s PS / 29.6cm/s ED L Vert: 57.8cm/s PS / 16.1cm/s ED L SVR: 0.92 L DVR: 0.56 IMPRESSION: Mild plaque bilaterally. No prominent elevated velocities. Stenosis is estimated to be mild bilater ally. Less than 50% stenosis bilaterally. Antegrade flow is demonstrated in both vertebral arteries. Criteria for Carotid Stenosis: Normal: ICA PSV <125 cm/s no plaque or intimal thickening is visible. <50% stenosis: ICA PSV <125 cm/s and plaque or intimal thickening is visible. 50-69% stenosis: ICA PSV is 125-250 cm/s and plaque is visible. >70% stenosis to near occlusion: ICA PSV >250 cm/s with visible plaque and luminal narrowing. DATA REPOSITORY:
[2021-01-21] MEDS: Normal Saline Flush 10 ML SYR IVP (14:33)
[2021-01-21] MEDS: Gadoterate meglumine 20 ML VIAL 17 ML IVP (14:34)
== END 2021-01-21 04:33 ==
PROVIDERS: PCP Internal Medicine; Visit Provider Internal Medicine
DX: H53.8 Other visual disturbances (principal); I65.23 Occlusion and stenosis of bilateral carotid arteries; R90.82 White matter disease, unspecified
CPT/HCPCS: 70553; 93880

== ENCOUNTER 2021-02-25 01:33 | Outpatient (CLI) | payer MEDICAID, SELFPAY ==
--- NOTE | 2021-02-25 | DI.CT_ITS ---
Exam(s) CT BRAIN NECK CTA EXAM: CT BRAIN NECK CTA CLINICAL HISTORY: VISUAL DISTURBANCE, H53.9, HYPERTENSIVE RETINOPATHY. TECHNIQUE: Imaging Protocol: Axial CT angiography was performed with multi-slice acquisition and mu lti-planar and/or 3D reconstructions. CONTRAST MATERIAL: Intravenous: Omnipaque 350 Contrast volume:85 mL COMPARISON: CT ABD PELVIS WITH CONTRAST from 09/26/2016 MR MR BRAIN WO/W from 01/21/2021 FINDINGS: CT Head W/O and W: Ventricles and Extra axial spaces: Normal in size and morphology for the patient's age. Hemorrhage: None. Cerebral parenchyma: No acute territorial infarct. There are areas of decreased attenuation in the w torin matter which may reflect chronic microvascular ischemic change. Midline shift: None. Brainstem/Cerebellum: Normal. Calvarium: Normal. Visualized Paranasal sinuses/Mastoids: Clear. Soft Tissues: Unremarkable. Enhancement: Unremarkable. CTA Neck W: Common Carotid: Right: No dissection, occlusion or significant stenosis. Left: No dissection, occlusion or significant stenosis. External Carotid: Right: No occlusion or significant stenosis. Left: No occlusion or significant stenosis. Internal Carotid: Right: No dissection, occlusion or significant stenosis. Left: No dissection, occlusion or significant stenosis. Vertebral Artery: Right: No dissection, occlusion or significant stenosis. Left: No dissection, occlusion or significant stenosis. Lung Apices: Normal. Bones: [id number] degenerative changes are seen in the cervical spine. Soft Tissues: Normal. Thyroid gland: Unremarkable. CTA Brain W: Internal Carotid Arteries: Petrous: Normal. Cavernous: Mild atherosclerosis. No significant stenosis or obstruction. Cerebral: Mild atherosclerosis. No obstruction or significant stenosis. Anterior Cerebral Arteries: Right: No aneurysm, occlusion or significant stenosis. Left: No aneurysm, occlusion or significant stenosis. Middle Cerebral Arteries: Right: No aneurysm, occlusion or significant stenosis. Left: No aneurysm, occlusion or significant stenosis. Posterior cerebral Arteries: Right: No aneurysm, occlusion or significant stenosis. Left: No aneurysm, occlusion or significant stenosis. Vertebral Arteries: Right: No aneurysm, occlusion or significant stenosis. Left: No aneurysm, occlusion or significant stenosis. Basilar Artery: No aneurysm, occlusion or significant stenosis. IMPRESSION: 1. Mild atherosclerosis in the internal carotid arteries. No evidence of significant stenosis or oc clusion. 2. Areas of decreased attenuation in the white matter suggestive of chronic microvascular ischemic di sease. No acute intracranial process. 3. Normal CTA examination of the neck. RADIATION DOSE DELIVERED: 2,146.59mGy.cm Total DLP DATA REPOSITORY: All CT scans at this facility are submitted to the National Radiology Data Registry (NRDR) Dose Index Registry (DIR) with the [employer] (ACR). RADIATION OPTIMIZATION: All CT scans at this facility use at least one of these dose optimization te chniques: automated exposure control; mA and/or kV adjustment per patient size (includes targeted exa ms where dose is matched to clinical indication); or iterative reconstruction.
[2021-02-25] MEDS: Omnipaque 350 MG/ML 100 ML BTL IV (09:07)
[2021-02-25] MEDS: Normal Saline - Diluent 50 ML VIAL IV (09:08)
[2021-02-25] MEDS: Normal Saline Flush 10 ML SYR IVP (09:09)
[2021-02-25 09:16] LABS: CREATININE 0.8 mg/dL (0.55-1.02); TSH 1.62 uIU/mL (0.36-3.74)
== END 2021-02-25 01:53 ==
PROVIDERS: PCP Internal Medicine; Visit Provider Internal Medicine
DX: H53.8 Other visual disturbances (principal); H35.033 Hypertensive retinopathy, bilateral; R90.82 White matter disease, unspecified
CPT/HCPCS: 70496; 70498; 82565; 84443; J3490

== ENCOUNTER 2021-06-12 07:55 | Emergency (ER) | payer MEDICAID, SELFPAY ==
[2021-06-12] VITALS (19 sets, daily range): BP systolic 118–145; BP diastolic 66–85; PULSE 68–85; RESP 18; TEMP 37.3; O2SAT 95–98
[2021-06-12 08:41] LABS: Source Nasal/Nares
[2021-06-12 08:41] LABS: Lactate 0.8 mmol/L (0.6-1.4)
[2021-06-12 08:43] LABS: Abs Immature Grans 0.01 10^3/uL (0.0-0.06); Absolute Basophil Count 0.07 10^3/uL (0.0-0.2); Absolute Eosinophil Count 0.22 10^3/uL (0.0-0.7); Absolute Lymphocyte Count 0.92 10^3/uL (1.2-3.4); Absolute Monocyte Count 0.69 10^3/uL (0.1-0.8); Absolute Neutrophil Count 2.77 10^3/uL (1.2-6.7); Basophils % 1.5; Eosinophils % 4.7; HCT 42.6 % (36.0-46.0); HGB 13.8 g/dL (11.2-15.7); Immature Grans % 0.2; Lymphocytes % 19.7; MCH 30.3 pg (27.0-33.0); MCHC 32.4 % (32.0-36.0); MCV 93.4 fL (80-95); MPV 12.1 fL (8.0-11.0); Monocytes % 14.7; Neutrophils % 59.2; Nucleated RBC 0 %; Platelet Count 164 10^3/uL (130-400); RBC 4.56 10^6/uL (3.93-5.22); RDW 13.8 % (11.7-14.6); RDW-SD 47.2 fL; WBC 4.68 10^3/uL (4.4-10.8)
[2021-06-12] MEDS: Acetaminophen 500 MG TAB 1000 MG PO (08:44)
[2021-06-12] MEDS: Normal Saline 1,000 ML 1000 ML IV (08:45)
--- NOTE | 2021-06-12 08:45 | W.ED.GENAD ---
Discharge Plan Disposition Patient Disposition: HOME Condition: Stable Discharge Details Clinical Impression: COVID-19 Primary Care Provider: Kerry Ascencio ED Provider: Shruti Rodriguez Shiloh Meds and New Rx's Prescriptions: Continued celecoxib [Celebrex] 100 mg capsule 100 mg PO BID RF: 0 clindamycin HCl 150 mg capsule 150 mg PO PRN RF: 0 aspirin 325 mg tablet,delayed release (DR/EC) 325 mg PO DAILY RF: 0 citalopram [Celexa] 10 MG tablet 20 mg PO DAILY RF: 0 meclizine 12.5 MG tablet 25 mg PO TID PRNRF: 0 rosuvastatin [Crestor] 20 MG tablet 40 mg PO DAILY RF: 0 sumatriptan succinate 50 MG tablet 50 mg PO DIRECTED PRNRF: 0 acyclovir 200 MG capsule 200 mg PO DIRECTED PRNRF: 0 levothyroxine 75 mcg tablet 100 mcg PO DAILY RF: 0 lisinopril 2.5 mg tablet 5 mg PO DAILY RF: 0 topiramate 50 mg tablet 75 mg PO HS RF: 0 epinephrine 0.3 MG/SYR auto-injector 0.3 mg IJ PRN PRN (Reason: Anaphylaxis) Qty: 1 RF: 0 nitroglycerin 0.4 MG tablet, sublingual 0.4 mg Sublingual DIRECTED RF: 0 ibuprofen 600 mg tablet 600 mg PO TID PRN (Reason: pain) Qty: 30 RF: 0 acetaminophen 500 mg capsule 500 mg PO Q4H PRN (Reason: pain) Qty: 30 RF: 0 cetirizine 10 mg Tablet 10 mg PO DAILY RF: 0 sennosides [senna] 8.6 mg Tablet 8.6 mg PO DAILY RF: 0 metronidazole 500 mg tablet 500 mg PO Q8-10H RF: 0 ciprofloxacin HCl 500 mg tablet 500 mg PO DAILY RF: 0 ezetimibe 10 mg tablet 10 mg PO DAILY RF: 0 Discharge Instructions Instructions: Pulse Oximetry (ED), COVID-19 (Coronavirus Disease 2019) (ED) Additional Instructions: Your labs are concerning for COVID-19. You qualify for outpatient infusion for this. Care management will reach out to you tomorrow. Please also call your primary care tomorrow to discuss your diagnosis and ensure that your infusion is completed in a timely manner. Please encourage hydration. You may use Tylenol as needed for discomfort. Please continue to monitor your pulse oximetry, if it drops less than 90% please return to the ED once again. If you develop inability stay hydrated, increased shortness of breath, difficulty breathing, chest pain or other new symptom please seek care urgently once again. Referrals: Kerry Ascencio [Primary Care Provider] - Medical Decision Making Patient is a pleasant 51-year-old female presenting today with chief complaint of fever, generalized body aches, cough, shortness of breath, sore throat. The symptoms began yesterday. She states that her has been ill at home. Has had 1 Covid vaccine 1 week ago. States that 1 week ago she was also diagnosed with recurrent diverticulitis. Is currently on ciprofloxacin and Flagyl. She reports that overall her abdominal pain has been improving although she still has some mild tenderness in the left lower quadrant she states that since yesterday, when she became ill with more upper respiratory complaints, she has had a diminished appetite. States that she has not been hydrating well. She denies any loose bowel movements, no melena or hematochezia. Denies any change in urinary habits. No back pain. Does report headache. On exam, patient appears nontoxic. Patient resting comfortably. Reports her pain is 1 out of 10. Vital signs are stable. Patient not febrile or hypoxic at this time. She does appear dry on exam with dry mucous membranes. No nuchal rigidity. Clear. Normal cardiac exam. She has some mild tenderness of the left lower quadrant but no peritoneal findings. She reports the pain is significantly improved over the past week. Patient I discussed differential diagnosis. She states that yesterday she had a T-max of 102 ?F. However, as the pain has been improving in her abdomen, I believe that this is likely associated with a new upper respiratory illness rather than her diverticulitis. She is being appropriately treated and has been taking her antibiotics as prescribed. Will give APAP for body aches. Will obtain baseline labs, she had labs last week when initially diagnosed with her diverticulitis and will be able to compare to these. These were completed at [facility] where she sees her primary care, however she does have access to her portal for comparison. As she reports that she is been having some shortness of breath cough as well as increased for the past 24 hours, will obtain portable chest x-ray. Will test for flu and Covid. Patient is not tachycardic, hypoxic or having any pleuritic pain. My suspicion for PE is low. FINDINGS: Lungs: Mild left basilar atelectasis Pleural spaces: Unremarkable. No pleural effusion. No pneumothorax. Heart/Mediastinum: Unremarkable. No cardiomegaly. Vasculature: Aorta is tortuous Bones/joints: Status post right shoulder ORIF IMPRESSION: Mild left basilar atelectasis Labs reviewed. No leukocytosis. Her lymphocytes have slightly low at 0.92. Lactate is normal. No significant abnormalities on the CMP. Urine is heavily contaminated. Patient is Covid positive. I discussed these findings with the patient. Her and grandchildren for all sick. Likely associated with Covid. As her symptom started yesterday, she does qualify for outpatient infusion. We will have her receive outpatient infusion through infusion center. She will continue with her antibiotics as previously prescribed for her diverticulitis. The patient does not have any leukocytosis, and pain or peritoneal findings, I do not believe that imaging is warranted of her abdomen time and would like to save on the radiation. Patient is in agreement this plan. Encourage hydration. We discussed symptomatic management. Strict return precautions were given. We will send home with a pulse oximeter. Her and family are also ill, I advised that she contact primary care for them tomorrow. Discussed quarantine. Strict return precautions were discussed. All questions and concerns were addressed and she is in agreement with this plan. HPI General Mode of arrival: ambulatory. Date/Time Provider Initiated Documentation: 06/12/21 07:59. Limitations to Documentation: no limitations. Information obtained by: patient and RN notes reviewed. History of Present Illness 61 year old F presents to the emergency department with the chief complaint of fever, body aches, cough, diverticulitis, described as mild, with intensity rated at 1. Quality is described as aching (reports body aches), and is localized to the abdomen (mild LLQ pain). Patient reports no radiation. Patient started experiencing this day(s) (1) No relieving factors improve symptom(s), No exacerbating factors reported . Patient notes cough, fever/chills, loss of appetite and shortness of breath; denies chest pain, diaphoresis, rash, syncope and weakness. Patient did receive the following treatments prior to arrival, none Related Data Home Medications Medication Instructions Recorded Confirmed citalopram [Celexa] 20 mg PO DAILY tab-cap 10/08/13 06/12/21 meclizine 25 mg PO TID PRN tab-cap 10/08/13 06/12/21 rosuvastatin [Crestor] 40 mg PO DAILY tab-cap 10/08/13 06/12/21 epinephrine 0.3 mg IJ PRN PRN #1 kit 07/21/16 06/12/21 acyclovir 200 mg PO DIRECTED PRN 06/01/17 06/12/21 sumatriptan succinate 50 mg PO DIRECTED PRN tab-cap 06/01/17 06/12/21 nitroglycerin 0.4 mg SUBLINGUAL DIRECTED 12/31/17 06/12/21 cetirizine 10 mg PO DAILY 12/20/18 06/12/21 sennosides [senna] 8.6 mg PO DAILY 03/22/20 03/29/21 acetaminophen 500 mg PO Q4H PRN #30 cap 08/11/20 06/12/21 ibuprofen 600 mg PO TID PRN #30 tab 08/11/20 06/12/21 celecoxib 100 mg capsule 100 mg PO BID 11/15/20 06/12/21 levothyroxine 75 mcg tablet 100 mcg PO DAILY tab-cap 11/15/20 06/12/21 lisinopril 2.5 mg tablet 5 mg PO DAILY tab-cap 03/29/21 06/12/21 topiramate 50 mg tablet 75 mg PO HS tab 03/29/21 06/12/21 clindamycin HCl 150 mg capsule 150 mg PO PRN cap 06/01/21 06/12/21 aspirin 325 mg tablet,delayed 325 mg PO DAILY 06/06/21 06/12/21 release ciprofloxacin HCl 500 mg PO DAILY 06/12/21 06/12/21 ezetimibe 10 mg PO DAILY 06/12/21 06/12/21 metronidazole 500 mg PO Q8-10H 06/12/21 06/12/21 Previous Rx's Medication Instructions Recorded epinephrine 0.3 mg IJ PRN PRN #1 kit 07/21/16 acetaminophen 500 mg PO Q4H PRN #30 cap 08/11/20 ibuprofen 600 mg PO TID PRN #30 tab 08/11/20 Allergies Allergy/AdvReac Type Severity Reaction Status Date / Time tetrabenazine Allergy Severe RASH,HIVES Verified 06/12/21 08:32 amoxicillin Allergy Intermediate Skin Rash Verified 06/12/21 08:32 hydrocodone [From Vicodin] Allergy Intermediate PRURITIS Verified 06/12/21 08:32 morphine Allergy Intermediate ITCHY, SICK Verified 06/12/21 08:32 peanut Allergy Intermediate Anaphylaxsi Verified 06/12/21 08:32 s tree nut Allergy Intermediate Anaphylaxsi Verified 06/12/21 08:32 s adhesive AdvReac Intermediate RASH AND Verified 06/12/21 08:32 SWELLING alcohol AdvReac Intermediate RASH Verified 06/12/21 08:32 [From Mastisol Liquid Adhesive] gum mastic AdvReac Intermediate RASH Verified 06/12/21 08:32 [From Mastisol Liquid Adhesive] methyl salicylate AdvReac Intermediate RASH Verified 06/12/21 08:32 [From Mastisol Liquid Adhesive] storax AdvReac Intermediate RASH Verified 06/12/21 08:32 [From Mastisol Liquid Adhesive] benzoin AdvReac Mild Skin Rash Verified 06/12/21 08:32 cat dander AdvReac Mild WATERY EYES Verified 06/12/21 08:32 milk AdvReac Unknown Verified 06/12/21 08:32 pollen extracts AdvReac Unknown watery eyes Verified 06/12/21 08:32 dog dander AdvReac WATERY EYES Verified 06/12/21 08:32 RAW FRUIT Allergy Unknown Uncoded 06/12/21 08:32 DUST AdvReac Unknown Uncoded 06/12/21 08:32 General Stated Complaint: Fever MANNIE: 3 Review of Systems Constitutional Constitutional: Reports as per HPI, Reports chills, Reports fatigue, Reports fever(s) (t max 102) and Reports headache(s) ENT Ears, Nose, Mouth, and Throat: Reports as per HPI, Reports headache(s), Reports nasal congestion, Reports sinus pressure and Reports sore throat Cardiovascular Cardiovascular: Reports as per HPI, Denies chest pain, Reports dyspnea (associates with cough) and Denies dyspnea on exertion Respiratory Respiratory: Reports as per HPI, Reports cough, Denies hemoptysis, Denies pain on inspiration, Reports dyspnea (associates with cough) and Denies dyspnea on exertion Gastrointestinal Gastrointestinal: Reports as per HPI, Reports abdominal pain (currently being treated for diverticulitis), Denies change in bowel habits, Denies nausea and Denies vomiting Genitourinary Genitourinary: Reports system reviewed and no additional complaints, except as documented (She denies change in urinary habits) Musculoskeletal Musculoskeletal: Reports myalgias Integumentary/Breasts Skin/Breast: Reports as per HPI and Denies rash Neurologic Neurologic: Reports as per HPI and Reports headache(s) Endocrine Endocrine: Reports fatigue PFSH Medical History Asthma Atypical chest pain Pt. states They don't know what it is, Dr. Oglesby thinks its just muscular, and not cardiac related Chronic back pain Colicky RUQ abdominal pain Complete tear of right rotator cuff (12/03/17) De Quervain's tenosynovitis, left Depression Elevated cholesterol Fatigue GERD (gastroesophageal reflux disease) HTN (hypertension) Hypothyroidism Insomnia Migraines Mild intermittent asthma without complication (11/08/15) Obesity Overactive bladder Seborrheic keratosis (12/15/16) upper back of left arm Sleep apnea now uses a CPAP machine Tendonitis of left rotator cuff Injection: 08/04/2019 Trochanteric bursitis, left hip S/P ITB tenotomy and bursal debridement DOS: 12/24/18 Dr. 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 Date of surgery: 04/16/18 Dr. Perez Family History Mother Essential hypertension Spinal stenosis Stroke Atrial fibrillation Father Essential hypertension Heart disease Myocardial infarction Brother Atrial fibrillation Essential hypertension Prostate cancer Social History Smoking/Tobacco Use Status: Former Tobacco Use Quit Date: 09/17/84 Pack-years: 12 Smoking risk assessment performed?: Yes Alcohol Intake: never Drug use: Never Substance use type: does not use Household members: significant other Number of Children: 1 Current gender identity: female Seatbelt use: sometimes Do you feel safe at home: Yes Do you feel safe in your relationship?: Yes Additional Social history: Quit smoking 1984 Exam Const General: cooperative, healthy appearing, comfortable, no acute distress, well developed and well groomed Nutritional Appearance: well nourished and overweight Orientation: alert and awake [facility] Head: normal to inspection, normocephalic and atraumatic Ears: hearing grossly normal bilaterally and external ears normal General nose exam: external nose normal and nares normal Face and sinus: normal facial exam, sinuses nontender and face symmetric Mouth: oral mucosae normal, tongue normal, oropharynx normal and mucous membranes dry (appears dry) Teeth and gingiva: dentition normal Throat: posterior oropharynx normal, tonsils normal and uvula midline Eyes General: appearance normal, both eyes and all related structures Neck Neck: normal visual inspection, full ROM, no lymphadenopathy and no meningeal signs Resp Effort & Inspection: normal respiratory effort, able to speak in complete sentences and no respiratory distress Auscultation: clear to auscultation bilaterally, no rales, no rhonchi and no wheezes Cardio Rate: regular rate Rhythm: regular rhythm Heart Sounds: S1 normal and S2 normal GI Inspection: normal to inspection Palpation: soft, no hepatosplenomegaly, not firm, no guarding, no masses, not rigid and tender in the LLQ (mild, no peritoneal findings); with no rebound tenderness Percussion: normal to percussion Auscultation: normal bowel sounds Back/Spine/Pelvis Back: no CVA tenderness Skin General skin exam: no rashes or lesions noted Neuro General: patient alert and patient awake Cognition: normal cognition Speech: speech normal Gait: normal gait Psych Appearance: grossly normal and well kempt Mental Status: mental status grossly normal Speech and Movement: speech and movement normal Course Vital Signs Vital signs: Vital Signs Temperature 37.3 C 09/26/21 08:13 Pulse 85 06/12/21 08:13 Respiratory Rate 18 06/12/21 08:13 Blood Pressure 145/85 H 06/12/21 08:13 Pulse Oximetry 97 06/12/21 08:13 Temperature 37.3 C 06/12/21 08:13 Temperature Source Temporal Artery Scan 06/12/21 08:13 Pulse 85 06/12/21 08:13 Respiratory Rate 18 06/12/21 08:13 Respiratory Effort 06/12/21 08:25 Blood Pressure 145/85 H 06/12/21 08:13 Blood Pressure Position Sitting 06/12/21 08:13 Pulse Oximetry 97 06/12/21 08:13 Oxygen Delivery Method Room Air 06/12/21 08:13 Oxygen Flow Rate 0 06/12/21 08:13 Pain Level 4 06/12/21 08:13 Lab/Test Results Lab/Test Results: Laboratory Tests Range/Units 06/12/21 06/12/21 08:24 08:35 VBG Lactate (0.6-1.4) mmol/L 0.8 COVID-19 Source Nasal/Nares
[2021-06-12 08:56] LABS: ALT 54 U/L (14-59); AST 67 U/L (15-37); Albumin 3.6 g/dL (3.4-5.0); Alkaline Phosphatase 107 U/L (46-116); Anion Gap 10.1 mmol/L (3-11); BUN 10 mg/dL (7-18); Bilirubin, Total 0.9 mg/dL (0.2-1.0); CO2 24.9 mmol/L (21.0-32.0); Calcium 8.8 mg/dL (8.5-10.1); Chloride 108 mmol/L (98-107); Estimated GFR 56.37 (mL/min/1.73m2); Glucose 105 mg/dL (74-106); Potassium 3.4 mmol/L (3.5-5.1); Sodium 143 mmol/L (136-145); Total Protein 7.4 g/dL (6.4-8.2)
--- NOTE | 2021-06-12 09:15 | DI.RAD_ITS ---
Exam(s) XR PORTABLE CHEST AP EXAM: XR PORTABLE CHEST AP CLINICAL HISTORY: cough, SOB. TECHNIQUE: 2D digital imaging was performed. COMPARISON: CR RIGHT SHOULDER COMPLETE from 08/06/2017 FINDINGS: Heart size is upper normal. The mediastinum is not widened. Right lung is clear. There is platelike atelectasis in the mid-lower left lung field. No pleural ef fusions. Evidence of previous right shoulder surgery. IMPRESSION: Platelike atelectasis left lung noted. No confluent infiltrates nor pleural effusions. DATA REPOSITORY: RADIATION DOSE DELIVERED: All CT scans at this facility use at least one of these dose optimization techniques: automated exposure control; mA and/or kV adjustment per patient size (includes targeted e xams where dose is matched to clinical indication); or iterative reconstruction.
[2021-06-12 09:24] LABS: Bilirubin Negative (Negative); Blood Trace-lysed (Negative); Clarity Sl Cloudy (Clear); Glucose Negative (Negative); Ketones Negative (Negative); Leukocyte Esterase Small (Negative); Nitrite Negative (Negative); Specific Gravity >= 1.030 (1.005-1.025); Urobilinogen 0.2 EU/dL (Up TO 0.2); pH 5.5 (5-8)
[2021-06-12 09:35] LABS: RBC 0-2 HPF (0-2)
[2021-06-12 09:36] LABS: Bacteria Moderate HPF (Negative); C & S Indicated? No/Sq. Contamination; Crystals Few Calcium Oxalate HPF (Negative); Epithelial Cells Many HPF (Negative); Mucus Moderate (Negative); Other Cells Few Yeast (Negative)
[2021-06-12 09:41] LABS: COVID-19 PCR POSITIVE (Negative)
--- NOTE | 2021-06-12 09:54 | DI.VRAD_ITS ---
PROCEDURE INFORMATION: Exam: XR Chest Exam date and time: 06/12/2021 8:25 AM Age: 61 years old Clinical indication: Cough and shortness of breath TECHNIQUE: Imaging protocol: XR of the chest. Views: 1 view. COMPARISON: CR XR SHOULDER LT COMPLETE 2+V 01/04/2021 11:08 AM FINDINGS: Lungs: Mild left basilar atelectasis Pleural spaces: Unremarkable. No pleural effusion. No pneumothorax. Heart/Mediastinum: Unremarkable. No cardiomegaly. Vasculature: Aorta is tortuous Bones/joints: Status post right shoulder ORIF IMPRESSION: Mild left basilar atelectasis Dictated and Authenticated by: Nicole Avelar MD. Ordering:KERRY Bahena MD
--- NOTE | 2021-06-13 14:37 | PDOC.ERCMPRO ---
- If Service Date Differs Date of service: 06/13/21 Time of Service: 14:38 Care Management Progress Note Agatha is seen in the ED for symptoms of Covid-19. At the request of ED provider, JORGE ALBERTO contacts Agatha's PCP's office to request an order for MAB. JORGE ALBERTO then contacts Agatha to advise that once the MAB order is received, staff will contact her to schedule an appointment for the infusion. Gaatha inquires as to the length of time required for the infusion. JORGE ALBERTO telephones the Covid Testing Unit and is informed it takes approximately 2 hours from arrival to discharge. JORGE ALBERTO is also asked to make patient aware that the MAB infusion is not FDA approved but has been authorized for emergency use. JORGE ALBERTO telephones Agatha to share this information. Agatha declines the infusion as it has not received FDA approval.
== END 2021-06-12 10:36 | disposition home or self-care (01) ==
PROVIDERS: Emergency Provider Physician Assistant; PCP Internal Medicine
DX: U07.1 COVID-19 (principal)
CPT/HCPCS: 36415; 80053; 87449; 87635; 96360; 99284; 71045; 81003; 81015; 83605; 83735; 85025

== ENCOUNTER 2021-07-08 09:46 | Outpatient (REF) | payer MEDICAID, SELFPAY ==
--- NOTE | 2021-07-08 09:25 | SKI_PTH ---
PATIENT: Agatha Yi LOC: [facility] #:[id number] AGE/SX: 61/F ROOM: RE07/08/[address]: Kiki Sykes MD : [id number] BED: DIS: 07/08/2021 SPEC #: [id number] RECD: 07/08/21 12:35 STATUS: JOE REQ #: [id number] VASQUEZ: 07/08/21 09:[address]: Kiki Sykes DEPT: Surgical Specimen RECD BY: Juliana Carvajal ENTERED: 07/08/21 12:36 SP TYPE: RAJNI SHETH DR: Kerry Ascencio Tissues: 1 - SKIN BIOPSY(SHAVE/PUNCH) 2 - SKIN BIOPSY(SHAVE/PUNCH) Procedures: SKIN LEVEL 4 Comments: [id number]
== END 2021-07-08 09:47 | disposition home or self-care (01) ==
LOC: LBN 09:46
PROVIDERS: PCP Internal Medicine; Visit Provider Surgery
DX: D18.01 Hemangioma of skin and subcutaneous tissue (principal)
CPT/HCPCS: 88305

== ENCOUNTER 2021-07-26 04:19 | Outpatient (CLI) | payer MEDICAID, SELFPAY ==
[2021-07-26 16:22] LABS: HCT 42.9 % (36.0-46.0); HGB 14.1 g/dL (11.2-15.7); MCH 30.3 pg (27.0-33.0); MCHC 32.9 % (32.0-36.0); MCV 92.1 fL (80-95); MPV 13.4 fL (8.0-11.0); Platelet Count 216 10^3/uL (130-400); RBC 4.66 10^6/uL (3.93-5.22); RDW 13.4 % (11.7-14.6); RDW-SD 45.4 fL; WBC 8.14 10^3/uL (4.4-10.8)
[2021-07-26 23:37] LABS: Hemoglobin A1C 5.7 % (<5.7)
[2021-07-26 23:38] LABS: BUN 11 mg/dL (7-18); CREATININE 0.8 mg/dL (0.55-1.02); Glucose 97 mg/dL (74-106)
[2021-07-26 23:39] LABS: ALT 54 U/L (14-59); AST 42 U/L (15-37); Albumin 3.8 g/dL (3.4-5.0); Alkaline Phosphatase 108 U/L (46-116); Anion Gap 8.9 mmol/L (3-11); Bilirubin, Total 0.6 mg/dL (0.2-1.0); CO2 27.1 mmol/L (21.0-32.0); Chloride 108 mmol/L (98-107); Potassium 4.1 mmol/L (3.5-5.1); Sodium 144 mmol/L (136-145); TSH 1.79 uIU/mL (0.36-3.74); Total Protein 7.4 g/dL (6.4-8.2)
== END 2021-07-26 04:20 | disposition home or self-care (01) ==
LOC: LBO 04:19
PROVIDERS: PCP Internal Medicine; Visit Provider Internal Medicine
DX: R25.1 Tremor, unspecified (principal)
CPT/HCPCS: 36415; 80053; 85027; 83036; 84443

== ENCOUNTER 2021-08-02 11:14 | Emergency (ER) | payer MEDICAID, SELFPAY ==
[2021-08-02 11:26] VITALS: BP 133/67; PULSE 78; RESP 18; TEMP 37.1; O2SAT 98
--- NOTE | 2021-08-02 11:40 | ED.GENADUL_ITS ---
Discharge Plan Disposition Patient Disposition: HOME Condition: Stable Discharge Details Clinical Impression: Left wrist pain Primary Care Provider: Kerry Ascencio ED Provider: Colette Griffiths Home Meds and New Rx's Prescriptions: New prednisone 20 mg tablet 40 mg PO DAILY 3 Days Qty: 6 RF: 0 Continued celecoxib [Celebrex] 100 mg capsule 100 mg PO BID RF: 0 clindamycin HCl 150 mg capsule 150 mg PO PRN RF: 0 aspirin 325 mg tablet,delayed release (DR/EC) 325 mg PO DAILY RF: 0 citalopram [Celexa] 10 MG tablet 20 mg PO DAILY RF: 0 meclizine 12.5 MG tablet 25 mg PO TID PRNRF: 0 rosuvastatin [Crestor] 20 MG tablet 40 mg PO DAILY RF: 0 sumatriptan succinate 50 MG tablet 50 mg PO DIRECTED PRNRF: 0 acyclovir 200 MG capsule 200 mg PO DIRECTED PRNRF: 0 levothyroxine 75 mcg tablet 100 mcg PO DAILY RF: 0 lisinopril 2.5 mg tablet 5 mg PO DAILY RF: 0 topiramate 50 mg tablet 75 mg PO HS RF: 0 epinephrine 0.3 MG/SYR auto-injector 0.3 mg IJ PRN PRN (Reason: Anaphylaxis) Qty: 1 RF: 0 nitroglycerin 0.4 MG tablet, sublingual 0.4 mg Sublingual DIRECTED RF: 0 ibuprofen 600 mg tablet 600 mg PO TID PRN (Reason: pain) Qty: 30 RF: 0 acetaminophen 500 mg capsule 500 mg PO Q4H PRN (Reason: pain) Qty: 30 RF: 0 cetirizine 10 mg Tablet 10 mg PO DAILY RF: 0 sennosides [senna] 8.6 mg Tablet 8.6 mg PO DAILY RF: 0 ezetimibe 10 mg tablet 10 mg PO DAILY RF: 0 Discharge Instructions Instructions: Arthralgia (ED), Swollen Joint (ED) Additional Instructions: Rest, ice, and elevate the affected area as much as possible. Alternate tylenol and motrin as needed and directed for pain. A prescription for steroids was sent electronically to your pharmacy. Take this as directed until finished. Follow-up with your primary care doctor in 1 week and for further evaluation with orthopedics if indicated. Return to the emergency department with any worsening or new concerning symptoms such as fever, redness, worsening pain or any other concerns. Referrals: Coy Perez MD [ [facility] STAFF PHYSICIAN] - Discharge Data Discharge Physician: Colette Griffiths Medical Decision Making 61-year-old female with a history of arthritis presents with left wrist pain since the middle of the night. She is right-handed. Denies any known injury. Vitals within normal limits. She appears comfortable and nontoxic. There is tenderness to palpation and mild swelling on the dorsal wrist with pain that is reproducible with with active greater than passive flexion. There is no deformity. He has neurovascular intact. There is no overlying cellulitis or rash. Presentation appears most likely consistent with tendinitis versus sprain versus arthritis exacerbation. History and presentation does not appear consistent with gout or fracture but will obtain an x-ray to rule out fracture. Do not see an indication for lab work. We will give a dose of ibuprofen and prednisone. X-ray reviewed and negative. Will treat for potential sprain versus arthritis flare versus tendinitis. A prescription for prednisone sent electronically to her pharmacy. Discussed that the steroids will help in case of a gout flare but this is less likely. She was advised on importance of rest, ice, compression and elevation. Also advised to take NSAIDs as directed. Advised to follow-up with pcp for reevaluation and and if she develops any new or concerning symptoms such as redness or fever, may need evaluation for potential gout versus cellulitis. Usual and customary return precautions given prior to discharge. Medical Records Medical records reviewed: Yes I reviewed the patient's medical records. Imaging Data Radiologic Study: Radiologist's impression: XR WRIST LT COMPLETE CLINICAL HISTORY: left wrist pain, r/o fx/tophi. TECHNIQUE: 2D digital imaging was performed. COMPARISON: CR XR WRIST LT COMP NAVICULAR from 04/19/2020 FINDINGS: BONES: No acute fracture is present. No bony destructive lesion is seen. JOINTS: The carpal bones are normally aligned. SOFT TISSUE: Normal. No calcifications. IMPRESSION: Unremarkable radiographs of the left wrist. HPI General Mode of arrival: ambulatory . Date/Time Provider Initiated Documentation: 08/02/21 11:17 . Limitations to Documentation: no limitations . Information obtained by: patient . HPI Narrative: Patient is a 61-year-old female presents with left wrist pain since the middle of the night. Patient states she went to bed without any complaint of wrist pain but when she awoke in the middle of the night she noted left wrist pain with movement. She states the pain does occasionally radiate to her left fourth and fifth fingers. She states she cares for her 2-year-old and 4-year-old grandchildren but denies any new i njury. She states the pain is worse with flexion extension and ulnar deviation. She does not take any medication for pain. She denies any known fever. She states she does have a family history of gout so she was unsure if this was related to gout but she denies any feeling of warmth or redness to her wrist. She denies any numbness or tingling in her hand and wrist. Related Data Home Medications Medication Instructions Recorded Confirmed citalopram [Celexa] 20 mg PO DAILY tab-cap 10/08/13 07/08/21 meclizine 25 mg PO TID PRN tab-cap 10/08/13 07/08/21 rosuvastatin [Crestor] 40 mg PO DAILY tab-cap 10/08/13 07/08/21 epinephrine 0.3 mg IJ PRN PRN #1 kit 07/21/16 07/08/21 acyclovir 200 mg PO DIRECTED PRN 06/01/17 07/08/21 sumatriptan succinate 50 mg PO DIRECTED PRN tab-cap 06/01/17 07/08/21 nitroglycerin 0.4 mg SUBLINGUAL DIRECTED 12/31/17 07/08/21 cetirizine 10 mg PO DAILY 12/20/18 07/08/21 sennosides [senna] 8.6 mg PO DAILY 03/22/20 07/08/21 acetaminophen 500 mg PO Q4H PRN #30 cap 08/11/20 07/08/21 ibuprofen 600 mg PO TID PRN #30 tab 08/11/20 07/08/21 celecoxib 100 mg capsule 100 mg PO BID 11/15/20 07/08/21 levothyroxine 75 mcg tablet 100 mcg PO DAILY tab-cap 11/15/20 07/08/21 lisinopril 2.5 mg tablet 5 mg PO DAILY tab-cap 03/29/21 07/08/21 topiramate 50 mg tablet 75 mg PO HS tab 03/29/21 07/08/21 clindamycin HCl 150 mg capsule 150 mg PO PRN cap 06/01/21 07/08/21 aspirin 325 mg tablet,delayed 325 mg PO DAILY 06/06/21 07/08/21 release ezetimibe 10 mg PO DAILY 06/12/21 07/08/21 prednisone 40 mg PO DAILY 3 Days #6 tab 08/02/21 Previous Rx's Medication Instructions Recorded epinephrine 0.3 mg IJ PRN PRN #1 kit 07/21/16 acetaminophen 500 mg PO Q4H PRN #30 cap 08/11/20 ibuprofen 600 mg PO TID PRN #30 tab 08/11/20 prednisone 40 mg PO DAILY 3 Days #6 tab 08/02/21 Allergies Allergy/AdvReac Type Severity Reaction Status Date / Time tetrabenazine Allergy Severe RASH,HIVES Verified 07/08/21 08:49 amoxicillin Allergy Intermediate Skin Rash Verified 07/08/21 08:49 hydrocodone [From Vicodin] Allergy Intermediate PRURITIS Verified 07/08/21 08:49 morphine Allergy Intermediate ITCHY, SICK Verified 07/08/21 08:49 peanut Allergy Intermediate Anaphylaxsi Verified 07/08/21 08:49 s tree nut Allergy Intermediate Anaphylaxsi Verified 07/08/21 08:49 s adhesive AdvReac Intermediate RASH AND Verified 07/08/21 08:49 SWELLING alcohol AdvReac Intermediate RASH Verified 07/08/21 08:49 [From Mastisol Liquid Adhesive] gum mastic AdvReac Intermediate RASH Verified 07/08/21 08:49 [From Mastisol Liquid Adhesive] methyl salicylate AdvReac Intermediate RASH Verified 07/08/21 08:49 [From Mastisol Liquid Adhesive] storax AdvReac Intermediate RASH Verified 07/08/21 08:49 [From Mastisol Liquid Adhesive] benzoin AdvReac Mild Skin Rash Verified 07/08/21 08:49 cat dander AdvReac Mild WATERY EYES Verified 07/08/21 08:49 milk AdvReac Unknown Verified 07/08/21 08:49 pollen extracts AdvReac Unknown watery eyes Verified 07/08/21 08:49 dog dander AdvReac WATERY EYES Verified 07/08/21 08:49 RAW FRUIT Allergy Unknown Uncoded 07/08/21 08:49 DUST AdvReac Unknown Uncoded 07/08/21 08:49 General Stated Complaint: Orthopedic MANNIE: 4 Review of Systems All systems reviewed & are unremarkable except as noted in HPI and below Constitutional Constitutional: Reports as per HPI, Denies chills and Denies fever(s) Musculoskeletal Musculoskeletal: Reports other (left wrist pain and swelling) [facility] Medical History Asthma Atypical chest pain Pt. states They don't know what it is, Dr. Oglesby thinks its just muscular, and not cardiac related Chronic back pain Colicky RUQ abdominal pain Complete tear of right rotator cuff (12/03/17) De Quervain's tenosynovitis, left Depression Elevated cholesterol Fatigue GERD (gastroesophageal reflux disease) HTN (hypertension) Hypothyroidism Insomnia Migraines Mild intermittent asthma without complication (11/08/15) Obesity Overactive bladder Seborrheic keratosis (12/15/16) upper back of left arm Sleep apnea now uses a CPAP machine Tendonitis of left rotator cuff Injection: 08/04/2019 Trochanteric bursitis, left hip S/P ITB tenotomy and bursal debridement DOS: 12/24/18 Dr. 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 Date of surgery: 04/16/18 Dr. Perez Family History Mother Essential hypertension Spinal stenosis Stroke Atrial fibrillation Father Essential hypertension Heart disease Myocardial infarction Brother Atrial fibrillation Essential hypertension Prostate cancer Social History (Reviewed 06/12/21 @ 09:01 by KRISTI Estrella Smoking/Tobacco Use Status: Former Tobacco Use Quit Date: 09/17/84 Pack-years: 12 Smoking risk assessment performed?: Yes Alcohol Intake: never Drug use: Never Substance use type: does not use Household members: significant other Number of Children: 1 Current gender identity: female Seatbelt use: sometimes Do you feel safe at home: Yes Do you feel safe in your relationship?: Yes Additional Social history: Quit smoking 1985 Exam Const General: cooperative, healthy appearing and no acute distress HENMT Head: normal to inspection Mouth: oral mucosae normal Eyes General: appearance normal, both eyes and all related structures Neck Neck: normal visual inspection Resp Effort & Inspection: normal respiratory effort and able to speak in complete sentences Cardio Rate: regular rate Skin General skin exam: no rashes or lesions noted Neuro General: patient alert, patient awake and patient oriented x3 Motor: muscle tone normal throughout Other: Normal radial/ulnar/median motor and sensory nerve function grossly intact left hand/wrist. Extrem Elbow/forearm/wrist images: 1. Tenderness to palpation, mild edema overlying left dorsal wrist. There is no erythema, induration, fluctuance, crepitus, rash or lesions. Other: Bilateral radial and ulnar pulses intact. Pain in left wrist reproducible with flexion and extension, ulnar and radial deviation, increase in pain with active compared to passive range of motion. No deformity noted to left wrist. Psych Appearance: grossly normal Affect: normal affect Course Vital Signs Vital signs: Vital Signs Temperature 98.8 F 08/02/21 11:26 Pulse 78 08/02/21 11:26 Respiratory Rate 18 08/02/21 11:26 Blood Pressure 133/67 08/02/21 11:26 Pulse Oximetry 98 08/02/21 11:26 Temperature 98.8 F 08/02/21 11:26 Temperature Source Skin 08/02/21 11:26 Pulse 78 08/02/21 11:26 Respiratory Rate 18 08/02/21 11:26 Respiratory Effort 08/02/21 11:32 Blood Pressure 133/67 08/02/21 11:26 Blood Pressure Position Sitting 08/02/21 11:26 Pulse Oximetry 98 08/02/21 11:26 Oxygen Delivery Method Room Air 08/02/21 11:26 Oxygen Flow Rate 0 08/02/21 11:26 Pain Level 2 08/02/21 11:26 Comment 08/02/21 11:26
--- NOTE | 2021-08-02 12:15 | DI.RAD_ITS ---
Exam(s) XR WRIST LT COMPLETE EXAM: XR WRIST LT COMPLETE CLINICAL HISTORY: left wrist pain, r/o fx/tophi. TECHNIQUE: 2D digital imaging was performed. COMPARISON: CR XR WRIST LT COMP NAVICULAR from 04/19/2020 FINDINGS: BONES: No acute fracture is present. No bony destructive lesion is seen. JOINTS: The carpal bones are normally aligned. SOFT TISSUE: Normal. No calcifications. IMPRESSION: Unremarkable radiographs of the left wrist. DATA REPOSITORY: RADIATION DOSE DELIVERED:
[2021-08-02] MEDS: Ibuprofen 600 MG TAB PO (12:18)
[2021-08-02] MEDS: predniSONE 20 MG TAB 40 MG PO (12:18)
[2021-08-02 12:50] VITALS: BP 133/67; PULSE 78; RESP 18; TEMP 37.1; O2SAT 98
== END 2021-08-02 12:56 | disposition home or self-care (01) ==
PROVIDERS: Emergency Provider Physician Assistant; PCP Internal Medicine
DX: M25.532 Pain in left wrist (principal)
CPT/HCPCS: 29125; 99283; 73110; J7512

== ENCOUNTER 2021-12-13 01:25 | Outpatient (CLI) | payer MEDICAID, SELFPAY ==
--- NOTE | 2021-12-13 | DI.MAMMO_ITS ---
Exam(s) MAMMO SCREENING EXAM: MAMMO SCREENING CLINICAL HISTORY: SCREENING FOR BREAST CANCER Z12.31 TECHNIQUE: Bilateral full field digital CC and MLO mammographic images were obtained with 3D tomosyn thesis and utilizing computer aided detection (CAD). COMPARISON: Available for comparison. FINDINGS: Masses/Architectural Distortion: None seen. Microcalcifications: No suspicious pleomorphic-type are seen. Skin Thickening/Nipple Retraction: None. IMPRESSION: 1. No significant interval change with no specific features of malignancy noted. 2. Unless there is more urgent need, screening mammography is recommended, as per [employer] guidelines. BI-RADS Category 1 - Negative Breast Density - Category B - Scattered areas of fibroglandular density Breast density category C or D implies that the patient has dense breast tissue. Dense breast tissue is very common and is not abnormal but dense breast tissue can make it harder to find cancer on a ma mmogram. Also, dense breast tissue may increase their breast cancer risk. This information about the result of the mammogram report was provided to the patient to raise their awareness. Use this report when you speak with the patient about their risks for breast cancer, which includes their family hist ory. At that time, you may recommend for more screening tests (Ultrasound or MRI) as they might be us eful based on their risk. A negative radiographic report should not delay biopsy if a dominant or clinically suspicious mass is present. Up to ten percent of cancers are not identified on mammography. A negative report may reinforce clinical impression. Adenosis and dense breasts may obscure an underlying neoplasm. False positive reports average 6 to 10%. Patient will receive a letter notifying them of these results.
== END 2021-12-13 01:45 ==
PROVIDERS: PCP Internal Medicine; Visit Provider Internal Medicine
DX: Z12.31 Encounter for screening mammogram for malignant neoplasm of breast (principal)
CPT/HCPCS: 77063; 77067

== ENCOUNTER → 2021-12-27 01:52 | Outpatient (CLI) | payer MEDICAID, SELFPAY ==
--- NOTE | 2021-12-27 10:30 | DI.US_ITS ---
Exam(s) US BREAST RT COMPLETE EXAM: US BREAST RT COMPLETE CLINICAL HISTORY: NIPPLE DISCHARGE, N64.52 TECHNIQUE: Ultrasound right breast performed using standard protocol. All 4 quadrants were evaluate d sonographically including the axilla and retroareolar region. COMPARISON: Comparison is made with prior mammograms. FINDINGS: There is a 1.2 x 0.4 x 0.5 cm soft tissue mass within a supra-areolar duct. There does appear to be some blood flow internally. No echogenic foci are seen. No other suspicious cystic or solid masses are seen in the right breast. IMPRESSION: 1. 1.2 cm soft tissue intraductal mass. Biopsy is recommended. Further evaluation with ductography and/or MRI is recommended. 2. Findings were discussed with the primary care team on the date of the examination. BI-RADS Category 4 - Suspicious Abnormality: Biopsy should be considered DATA REPOSITORY:
== END ==
PROVIDERS: PCP Internal Medicine; Visit Provider Internal Medicine
DX: N64.52 Nipple discharge (principal); N63.41 Unspecified lump in right breast, subareolar
CPT/HCPCS: 76642

== ENCOUNTER 2021-12-30 02:27 | Outpatient (CLI) | payer MEDICAID, SELFPAY ==
[2021-12-30 11:04] LABS: Abs Immature Grans 0.01 10^3/uL (0.0-0.06); Absolute Basophil Count 0.09 10^3/uL (0.0-0.2); Absolute Eosinophil Count 0.41 10^3/uL (0.0-0.7); Absolute Monocyte Count 0.57 10^3/uL (0.1-0.8); Basophils % 1.2; Eosinophils % 5.6; HCT 44.4 % (36.0-46.0); HGB 14.4 g/dL (11.2-15.7); Immature Grans % 0.1; Lymphocytes % 32.5; MCH 30.3 pg (27.0-33.0); MCHC 32.4 % (32.0-36.0); MCV 93.5 fL (80-95); MPV 12.9 fL (8.0-11.0); Monocytes % 7.7; Neutrophils % 52.9; Platelet Count 197 10^3/uL (130-400); RBC 4.75 10^6/uL (3.93-5.22); RDW 12.8 % (11.7-14.6); RDW-SD 44.3 fL; WBC 7.38 10^3/uL (4.4-10.8)
[2021-12-30 11:15] LABS: Hemoglobin A1C 5.8 % (<5.7)
[2021-12-30 11:56] LABS: ALT 38 U/L (14-59); AST 34 U/L (15-37); Albumin 3.7 g/dL (3.4-5.0); Alkaline Phosphatase 118 U/L (46-116); Anion Gap 10.9 mmol/L (3-11); BUN 11 mg/dL (7-18); Bilirubin, Total 0.7 mg/dL (0.2-1.0); CO2 23.1 mmol/L (21.0-32.0); CREATININE 0.9 mg/dL (0.55-1.02); Calcium 8.9 mg/dL (8.5-10.1); Calculated LDL 73 mg/dL (<100); Chloride 109 mmol/L (98-107); Cholesterol 139 mg/dL (<200); Glucose 101 mg/dL (74-106); HDL Cholesterol 45 mg/dL (40-60); Potassium 4.3 mmol/L (3.5-5.1); Sodium 143 mmol/L (136-145); TSH 1.07 uIU/mL (0.36-3.74); Total Protein 7.2 g/dL (6.4-8.2); Triglyceride 106 mg/dL (<150)
== END 2021-12-30 02:28 | disposition home or self-care (01) ==
LOC: LBO 02:27
PROVIDERS: PCP Internal Medicine; Visit Provider Internal Medicine
DX: E78.5 Hyperlipidemia, unspecified (principal); R73.03 Prediabetes; E03.9 Hypothyroidism, unspecified; K21.9 Gastro-esophageal reflux disease without esophagitis
CPT/HCPCS: 36415; 80053; 80061; 83036; 84443; 85025

== ENCOUNTER 2022-01-13 11:07 | Day surgery (SDC) | payer MEDICAID, SELFPAY ==
--- NOTE | 2022-01-12 13:57 | HPE_ITS ---
Assessment and Plan Assessment and plan (1) Sleep apnea: Status: None (2) Obesity: Status: None (3) Asthma: Status: None (4) COVID-19: (5) Elevated cholesterol: (6) GERD (gastroesophageal reflux disease): (7) HTN (hypertension): (8) Hypothyroidism: (9) Insomnia: (10) Rectal bleeding: Status: Acute Assessment and plan: Informed consent is obtained for the procedural (explained in simple layman's terms that?the pt and/or family could understand) explaining risks vs benefits and alternatives to the procedure and consequences if we do not do the procedure and need/rational for the procedure. Risks include but are not limited to: bleeding, infection, perforation of colon.? This would necessitate emergency surgery to repair the damage w/ possible ostomy; and other associated complications w/ the required surgery. ? Also complications of anesthesia including aspiration, ND/CVA/.I discussed with the?patient would they could expect during the procedure, post procedure and recovery time and risks.? The patient understands that they need to have a ride home after the procedure.? (11) Chronic constipation: Status: Acute History of Present Illness Narrative: 1 y/o female with a history of CAD, MOISES, hypothyroidism, depressive disorder, migraines and herpes?presents for colonoscopy screening pre-op. Her last screening was in 2011, which was unremarkable. She denies a family history of colon cancer.? Patient describes years of constipation which she previously controlled with senna, however she is fallen out of the habit of doing this. She was recently? seen by her PCP for concerns? of rectal bleeding. This only occurs after passing BMs. She denies any pain when this occurs. She has since been taking daily miralax with mild improvement. She has not had any recurrence of rectal bleeding. She states that she has also noted on rare occasions black tarry stools. ? She denies constitutional symptoms. Denies use of marijuana or any other recreational or illegal drugs. Patients states she intermittently has chest pain from my angina and fluttering. She took her Nitro last week for chest pain and this improved her symptoms.? She has an appointment 12/21/21 with her Personnel Specialist and for an Echo. She denies? dyspnea or dyspnea with exertion. She denies prior history or family history of adverse reactions or complications with anesthesia. The patient denies any history of stroke, ND, seizures, bleeding or clotting disorders. She reports having implanted metal in bilateral knees and shoulde She had COVID and developed chronic cough and fatigue from this. She was having some chest pain and saw cardiology. She did have a stress test at [place] which was normal. She had an echo which is in our system and is normal. They occur off the lisinopril and this helped with her cough and her palpitations that she was having. Cardiology said she was fine to proceed with colonoscopy. She did complete a bowel prep. Today she is having clear yellow fluid from the rectum. She is not currently having any abdominal pain or nausea. She denies any chest pain, shortness of breath, productive cough, or fevers. All questions are answered and she is stable for the proposed procedure. Hemoglobin is normal on her recent CBC. She has had a hysterectomy. Meds and allergies are reviewed. Review of Systems All systems reviewed & are unremarkable except as noted in HPI and below PFSH All Active Problems (Updated 01/12/22 @ 14:08 by Evonne Scales DO) Chronic constipation (Acute) Rectal bleeding (Acute) Mild intermittent asthma without complication (Acute 11/08/15) Screening for colon cancer (Acute) Coronary arteriosclerosis (Acute) Rectal bleed (Acute) Medical History (Updated 01/12/22 @ 14:08 by Evonne Scales DO) Arthritis of left acromioclavicular joint s/p distal clavicle excision, 04/28/20 Atypical chest pain Pt. states They don't know what it is, Dr. Oglesby thinks its just muscular, and not cardiac related Bursitis of left shoulder Chronic back pain Colicky RUQ abdominal pain Complete tear of right rotator cuff (12/03/17) COVID-19 De Quervain's tenosynovitis, left Depression Elevated cholesterol Fatigue GERD (gastroesophageal reflux disease) HTN (hypertension) Hypothyroidism Impingement syndrome of left shoulder Insomnia Left wrist pain Migraines Overactive bladder Seborrheic keratosis (12/15/16) upper back of left arm Skin lesion SVT (supraventricular tachycardia) Tendonitis of left rotator cuff Injection: 08/04/2019 Trochanteric bursitis of right hip Trochanteric bursitis, left hip S/P ITB tenotomy and bursal debridement DOS: 12/24/18 Dr. [place] Vulvovaginitis (11/03/13) Surgical History (Updated 01/11/22 @ 10:04 by Wil Yi) Abdominal hysterectomy (~2008) for benign reasons Acquired absence of both cervix and uterus (11/08/15) Arthroplasty of knee X2 Cholecystectomy (02/01/16) Excision, Skin Mass (12/15/16) FACET INJECTIONS History of bursectomy S/P ITB tenotomy and bursal debridement DOS: 12/24/18 Dr. Perez History of cardiac cath Non-obstructive CAD, Elevated LV end diastolic pressure. no stents Hx of breast biopsy Left carpal tunnel syndrome S/P ECTR: 03/23/2020 Left rotator cuff tear s/p arthroscopic rotator cuff repair 04/28/20 s/p arthroscopic revision rotator cuff repair: 08/11/2020 Oophrectomy, Left with hyst , Ectopic (~1983) Right carpal tunnel syndrome S/P ECTR: 03/23/2020 Status post right rotator cuff repair Right repeat rotator cuff repair, also has had left RTC repaired. Date of surgery: 04/16/18 Dr. Perez Family History Mother Essential hypertension Spinal stenosis Stroke Atrial fibrillation Father Essential hypertension Heart disease Myocardial infarction Brother Atrial fibrillation Essential hypertension Prostate cancer Social History Smoking/Tobacco Use Status: Former Tobacco Use Quit Date: 09/17/84 Pack-years: 12 Smoking risk assessment performed?: Yes Alcohol Intake: never Drug use: Never Substance use type: does not use Household members: significant other Number of Children: 1 Current gender identity: female Seatbelt use: sometimes Additional Social history: Dtr Lelia diaz answering questions for patient Meds Allergies and Home Medications Allergies Allergy/AdvReac Type Severity Reaction Status Date / Time tetrabenazine Allergy Severe RASH,HIVES Verified 01/11/22 10:08 amoxicillin Allergy Intermediate Skin Rash Verified 01/11/22 10:08 hydrocodone [From Vicodin] Allergy Intermediate PRURITIS Verified 01/11/22 10:08 morphine Allergy Intermediate ITCHY, SICK Verified 01/11/22 10:08 peanut Allergy Intermediate Anaphylaxsi Verified 01/11/22 10:08 s tree nut Allergy Intermediate Anaphylaxsi Verified 01/11/22 10:08 s adhesive AdvReac Intermediate RASH AND Verified 01/11/22 10:08 SWELLING alcohol AdvReac Intermediate RASH Verified 01/11/22 10:08 [From Mastisol Liquid Adhesive] gum mastic AdvReac Intermediate RASH Verified 01/11/22 10:08 [From Mastisol Liquid Adhesive] methyl salicylate AdvReac Intermediate RASH Verified 01/11/22 10:08 [From Mastisol Liquid Adhesive] storax AdvReac Intermediate RASH Verified 01/11/22 10:08 [From Mastisol Liquid Adhesive] benzoin AdvReac Mild Skin Rash Verified 01/11/22 10:08 cat dander AdvReac Mild WATERY EYES Verified 01/11/22 10:08 milk AdvReac Unknown Verified 01/11/22 10:08 pollen extracts AdvReac Unknown watery eyes Verified 01/11/22 10:08 dog dander AdvReac WATERY EYES Verified 01/11/22 10:08 RAW FRUIT Allergy Unknown Uncoded 01/11/22 10:08 DUST AdvReac Unknown Uncoded 01/11/22 10:08 Home Medications Medication Instructions Recorded Confirmed Type citalopram 10 mg tablet (Celexa) 20 mg PO DAILY tab-cap 10/08/13 01/11/22 History meclizine 12.5 mg tablet 25 mg PO TID PRN tab-cap 10/08/13 01/11/22 History rosuvastatin 20 mg tablet (Crestor) 40 mg PO DAILY tab-cap 10/08/13 01/11/22 History epinephrine 0.3 mg/0.3 mL 0.3 mg (0.3 mL) IJ PRN PRN #1 07/21/16 01/11/22 Rx injection, auto-injector acyclovir 200 mg capsule 200 mg PO DIRECTED PRN 06/01/17 01/11/22 History sumatriptan succinate 50 mg tablet 50 mg PO DIRECTED PRN tab-cap 06/01/17 01/11/22 History nitroglycerin 0.4 mg sublingual 0.4 mg SUBLINGUAL DIRECTED 12/31/17 01/11/22 History tablet cetirizine 10 mg tablet 10 mg PO DAILY 12/20/18 01/11/22 History sennosides 8.6 mg tablet (senna) 8.6 mg PO DAILY 03/22/20 01/11/22 History acetaminophen 500 mg capsule 500 mg PO Q4H PRN #30 cap 08/11/20 01/11/22 Rx ibuprofen 600 mg tablet 600 mg PO TID PRN #30 tab 08/11/20 01/11/22 Rx celecoxib 100 mg capsule (Celebrex) 100 mg PO BID 11/15/20 01/11/22 History levothyroxine 75 mcg tablet 100 mcg PO DAILY tab-cap 11/15/20 01/11/22 History lisinopril 2.5 mg tablet 5 mg PO DAILY tab-cap 03/29/21 01/11/22 History topiramate 50 mg tablet 75 mg PO HS tab 03/29/21 01/11/22 History clindamycin HCl 150 mg capsule 150 mg PO PRN cap 06/01/21 01/11/22 History ezetimibe 10 mg tablet 10 mg PO DAILY 06/12/21 01/11/22 History albuterol sulfate 90 mcg/actuation 2 puff INHALATION Q6H PRN 12/06/21 01/11/22 History aerosol inhaler (ProAir HFA) budesonide-formoterol HFA 160 2 puff INHALATION BID 12/06/21 01/11/22 History mcg-4.5 mcg/actuation aerosol inhaler (Symbicort) omeprazole 40 mg capsule,delayed 40 mg PO DAILY 12/06/21 01/11/22 History release wheat dextrin 3 gram/3.5 gram oral 1 packet PO DAILY 12/06/21 01/11/22 History powder packet (Benefiber Clear Sugar Free(dextrin)) bisacodyl 5 mg tablet,delayed 5 mg PO ONCE #4 tab 12/08/21 01/11/22 Rx release (Dulcolax (bisacodyl)) polyethylene glycol 3350 17 17 g PO ONCE #238 g 12/08/21 01/11/22 Rx gram/dose oral powder aspirin 81 mg tablet,delayed 81 mg PO DAILY 12/22/21 01/11/22 History release bisacodyl 5 mg tablet,delayed 5 mg PO ONCE #4 tab 12/22/21 01/11/22 Rx release (Dulcolax (bisacodyl)) Exam Narrative Exam Narrative: PHYSICAL EXAM GENERAL APPEARANCE: Alert, healthy appearance, oriented, in no acute distress SKIN: No rashes.? No breakdown HYDRATION: Well hydrated HEAD, EYES, EARS, NECK, THROAT: Head is normocephalic, pupils equal, round, reactive to light and accommodation, ocular movement intact, sclera clear and no jaundice. ?Dentition intact. No sore throat.? No jaw pain. NECK: Supple, Trachea midline. No JVD. LUNGS: normal respiration/nl chest excursion. ?Clear to auscultation B/l no R/R/W ?HEART: Regular rate and rhythm, EXTREMITY: No edema or cyanosis? no leg pain, redness, swelling.? ABDOMEN: non tender to palpation, no masses or distention, no hernias. Normal bowel sounds NEURO: no focal neuro deficits. ?
--- NOTE | 2022-01-12 14:09 | W.COLOREPORT ---
Colonoscopy Report Pre-op diagnosis general: rectal bleeding Post-op diagnosis procedure note: other (I/E hemorrhoids/diverticula) Surgeon: Evonne Scales Anesthesia Type: General:No Airway Complications: None Disposition: same day Prep: Miralax/Dulcolax Retraction Time: 8 Procedure Description: After informed consent was obtained the patient was taken to the procedure room and placed in a left decubitous position. Monitors were applied and a time out was done. The patients name, date of , procedure, allergies to medications and metal in their body was reviewed. The patient was then sedated. Once sedated and comfortable a rectal exam was done. External exam shows moderate external hemorrhoids w/ no inflammation. Internal exam revealed a normal sphincter tone and no palpable masses. The scope was then introduced and retrofelexed. grade I internal hemorrhoids were identified. The scope was then advanced to the cecum difficulty. The TI and appendiceal orifice were identified. The prep was BBPS 3 in all segments, for a total of 9. The scope was then slowly retracted over 8 minutes back into the rectum. There were no polyps or AVMs. She has moderate diverticular disease confined to the sigmoid colon. There is no signs of active bleeding or infection. The scope was removed and the patient was woken up and taken back to Same day surgery in stable condition. The patient tolerated the procedure well and there were no immediate complications. Follow up: The patient should follow up in 10 years unless they develop changes in bowel habits or other new gastrointestinal complaints.
--- NOTE | 2022-01-12 14:33 | PDOC.DSDIS_ITS ---
Discharge Plan Disposition Patient Disposition: HOME Condition: Good Discharge Details Reason For Visit: colon scope Attending Provider: Evonne Scales Primary Care Provider: Kerry Ascencio Home Meds and New Rx's Prescriptions: Continued celecoxib [Celebrex] 100 mg capsule 100 mg PO BID 0RF omeprazole 40 mg capsule,delayed release(DR/EC) 40 mg PO DAILY 0RF albuterol sulfate [ProAir HFA] 90 mcg/actuation HFA aerosol inhaler 2 puff inhalation Q6H PRN0RF budesonide-formoterol [Symbicort] 160-4.5 mcg/actuation HFA aerosol inhaler 2 puff inhalation BID 0RF clindamycin HCl 150 mg capsule 150 mg PO PRN 0RF Rx Instructions: prior to dental appt. citalopram [Celexa] 10 MG tablet 20 mg PO DAILY 0RF Label Comments: 10 mg tab and 20 mg tab total 30. meclizine 12.5 MG tablet 25 mg PO TID PRN0RF Label Comments: prn rosuvastatin [Crestor] 20 MG tablet 40 mg PO DAILY 0RF sumatriptan succinate 50 MG tablet 50 mg PO DIRECTED PRN0RF acyclovir 200 MG capsule 200 mg PO DIRECTED PRN0RF levothyroxine 75 mcg tablet 100 mcg PO DAILY 0RF topiramate 50 mg tablet 75 mg PO HS 0RF aspirin 81 mg tablet,delayed release (DR/EC) 81 mg PO DAILY 0RF epinephrine 0.3 MG/SYR auto-injector 0.3 mg IJ PRN PRN (Reason: Anaphylaxis) Qty: 1 0RF nitroglycerin 0.4 MG tablet, sublingual 0.4 mg Sublingual DIRECTED 0RF ibuprofen 600 mg tablet 600 mg PO TID PRN (Reason: pain) Qty: 30 0RF acetaminophen 500 mg capsule 500 mg PO Q4H PRN (Reason: pain) Qty: 30 0RF cetirizine 10 mg Tablet 10 mg PO DAILY 0RF sennosides [senna] 8.6 mg Tablet 8.6 mg PO DAILY 0RF ezetimibe 10 mg tablet 10 mg PO DAILY 0RF Label Comments: TAKE 1 TABLET BY MOUTH EVERY DAY Discontinued bisacodyl [Dulcolax (bisacodyl)] 5 mg tablet,delayed release (DR/EC) 5 mg PO ONCE Qty: 4 0RF Rx Instructions: Take according to provider's instructions for colonoscopy prep. polyethylene glycol 3350 17 gram/dose powder 17 g PO ONCE Qty: 238 0RF Rx Instructions: To be taken as directed by prescriber's office for colonoscopy prep. No Action diltiazem HCl [Dilacor XR] 120 mg Capsule,Ext.Rel 24h Degradable 120 mg PO DAILY 0RF Discharge Instructions Additional Instructions: DSU Colonoscopy Post- Op Instructions Instructions for Everyone who is given Anesthesia: For your safety, please do the following for the next twenty-four (24) hours: *Do Not operate a motor vehicle (car, truck, motorcycle, etc.) *Do Not drink alcoholic beverages or use any recreational drugs for the first 24 hours or while taking pain medications. The medications in your body may have a reaction that can be dangerous. *Do Not make any important decisions or sign any important papers. Findings: moderate diverticula of sigmoid colon I/E hemorrhoids Follow up:repeat scope in 10 yrs time 1. No lifting over 20 pounds or strenuous activity for the first 24 hours after your procedure. After 24 hours there are no restrictions on your activity but you may feel fatigued for a few days. 2. After you arrive home you may have a light meal and return to your normal diet as you can tolerate it without feeling sick to your stomach. 3. You may have a bloated, gaseous feeling in your belly (abdomen) after a colonoscopy. Passing gas and belching will help. Walking or lying down on your left side with your knees flexed may relieve the discomfort. Call the office at [phone] (Office) or [phone] (Hospital) right away if you notice any of the following: a.Vomiting of blood or ?coffee ground stools?. b.Rectal bleeding 1Tbsp, blood clots or continuous bleeding. c.Severe belly (abdominal) pain. d.A hard distended belly (abdomen) and an inability to pass gas. 4. Please don?t expect to have a normal BM (bowel movement) for 2-3 days after your procedure. 5. If there are questions regarding the findings of your procedure, please contact your doctor 6. If you are unable to contact your doctor with a problem, contact the hospital at [phone]. 7. Continue all your regular medications unless directed otherwise. I understand the above instructions and have no questions. Signature of Patient or Adult Escort Name of Responsible Adult Escort Signature of Nurse Date/Time Activity:: See above Discharge Orders Discharge Orders: Discharge Order (Routine); Ordered 01/12/22 Ordered By: Evonne Scales DS: Diagnosis Discharge Diagnosis (1) Sleep apnea: Status: None (2) Obesity: Status: None (3) Asthma: Status: None (4) COVID-19: (5) Elevated cholesterol: (6) GERD (gastroesophageal reflux disease): (7) HTN (hypertension): (8) Hypothyroidism: (9) Insomnia: (10) Rectal bleeding: Status: Acute (11) Chronic constipation: Status: Acute
[2022-01-13 11:32] VITALS: BP 150/87; PULSE 70; RESP 16; TEMP 36.2; O2SAT 97
[2022-01-13] MEDS: Lactated Ringers 1,000 ML 80 ML IV (11:52)
--- NOTE | 2022-01-13 12:07 | W.ANESPRE ---
General Info Date of Service Date Performed: 01/13/22 Height: 5 ft 1 in Weight: 82.5 kg Body Mass Index (BMI): 34.3 Surgical Procedure: Operation Date: 01/13/22 11:20 Proposed Procedure Side Surgeon bryn Scales, DO Meds Allergies and Home Medications Allergies Allergy/AdvReac Type Severity Reaction Status Date / Time tetrabenazine Allergy Severe RASH,HIVES Verified 01/13/22 11:26 amoxicillin Allergy Intermediate Skin Rash Verified 01/13/22 11:26 hydrocodone [From Vicodin] Allergy Intermediate PRURITIS Verified 01/13/22 11:26 morphine Allergy Intermediate ITCHY, SICK Verified 01/13/22 11:26 peanut Allergy Intermediate Anaphylaxsi Verified 01/13/22 11:26 s tree nut Allergy Intermediate Anaphylaxsi Verified 01/13/22 11:26 s adhesive AdvReac Intermediate RASH AND Verified 01/13/22 11:26 SWELLING alcohol AdvReac Intermediate RASH Verified 01/13/22 11:26 [From Mastisol Liquid Adhesive] gum mastic AdvReac Intermediate RASH Verified 01/13/22 11:26 [From Mastisol Liquid Adhesive] methyl salicylate AdvReac Intermediate RASH Verified 01/13/22 11:26 [From Mastisol Liquid Adhesive] storax AdvReac Intermediate RASH Verified 01/13/22 11:26 [From Mastisol Liquid Adhesive] benzoin AdvReac Mild Skin Rash Verified 01/13/22 11:26 cat dander AdvReac Mild WATERY EYES Verified 01/13/22 11:26 milk AdvReac Unknown Verified 01/13/22 11:26 pollen extracts AdvReac Unknown watery eyes Verified 01/13/22 11:26 dog dander AdvReac WATERY EYES Verified 01/13/22 11:26 RAW FRUIT Allergy Unknown Uncoded 01/11/22 10:08 DUST AdvReac Unknown Uncoded 01/11/22 10:08 Home Medication Medication Instructions Recorded citalopram 10 mg tablet (Celexa) 20 mg PO DAILY tab-cap 10/08/13 meclizine 12.5 mg tablet 25 mg PO TID PRN tab-cap 10/08/13 rosuvastatin 20 mg tablet (Crestor) 40 mg PO DAILY tab-cap 10/08/13 epinephrine 0.3 mg/0.3 mL 0.3 mg (0.3 mL) IJ PRN PRN #1 07/21/16 injection, auto-injector acyclovir 200 mg capsule 200 mg PO DIRECTED PRN 06/01/17 sumatriptan succinate 50 mg tablet 50 mg PO DIRECTED PRN tab-cap 06/01/17 nitroglycerin 0.4 mg sublingual 0.4 mg SUBLINGUAL DIRECTED 12/31/17 tablet cetirizine 10 mg tablet 10 mg PO DAILY 12/20/18 sennosides 8.6 mg tablet (senna) 8.6 mg PO DAILY 03/22/20 acetaminophen 500 mg capsule 500 mg PO Q4H PRN #30 cap 08/11/20 ibuprofen 600 mg tablet 600 mg PO TID PRN #30 tab 08/11/20 celecoxib 100 mg capsule (Celebrex) 100 mg PO BID 11/15/20 levothyroxine 75 mcg tablet 100 mcg PO DAILY tab-cap 11/15/20 topiramate 50 mg tablet 75 mg PO HS tab 03/29/21 clindamycin HCl 150 mg capsule 150 mg PO PRN cap 06/01/21 ezetimibe 10 mg tablet 10 mg PO DAILY 06/12/21 albuterol sulfate 90 mcg/actuation 2 puff INHALATION Q6H PRN 12/06/21 aerosol inhaler (ProAir HFA) budesonide-formoterol HFA 160 2 puff INHALATION BID 12/06/21 mcg-4.5 mcg/actuation aerosol inhaler (Symbicort) omeprazole 40 mg capsule,delayed 40 mg PO DAILY 12/06/21 release aspirin 81 mg tablet,delayed 81 mg PO DAILY 12/22/21 release diltiazem HCl 120 mg 120 mg PO DAILY 01/13/22 capsule,extended release 24 hr, controlled Current Visit Medications: Current Medications Generic Name Dose Route Start Last Admin Trade Name Freq PRN Reason Stop Dose Admin Ringer's Solution 1,000 mls @ 80 mls/hr 01/13/22 06:00 01/13/22 11:52 IV 01/14/22 23:59 80 mls/hr INFUSION MAJO Administration IV Miscellaneous Supplies 1 each 01/13/22 06:00 Iv Access IV 01/14/22 23:59 DIRECTED [facility] Ondansetron HCl 4 mg 01/12/22 14:11 Ondansetron 4 Mg/2 Ml Vial IVP Q4H PRN PRN Nausea / Vomiting Sodium Chloride 0 ml 01/13/22 06:00 Normal Saline Flush 10 Ml Syr IV 01/14/22 23:59 PRN PRN Sodium Chloride 0 ml 01/13/22 06:00 Normal Saline 10 Ml Vial IJ 01/14/22 23:59 DIRECTED PRN Sterile Water 0 ml 01/13/22 06:00 Water,Injection,Sterile 10 Ml Vial IJ 01/14/22 23:59 DIRECTED PRN PFSH Active Problems Active Problems: Problem Status Onset Code Mild intermittent asthma without complication 11/08/15 J45.20 Screening for colon cancer Z12.11 Coronary arteriosclerosis I25.10 Rectal bleed K62.5 Rectal bleeding K62.5 Chronic constipation K59.09 Medical History Medical History (Updated 01/13/22 @ 11:38 by Reinaldo Lennon) Arthritis of left acromioclavicular joint s/p distal clavicle excision, 04/28/20 Atypical chest pain Pt. states They don't know what it is, Dr. Oglesby thinks its just muscular, and not cardiac related Bursitis of left shoulder Chronic back pain Colicky RUQ abdominal pain Complete tear of right rotator cuff (12/03/17) COVID-19 De Quervain's tenosynovitis, left Depression Elevated cholesterol Fatigue GERD (gastroesophageal reflux disease) HTN (hypertension) Hypothyroidism Impingement syndrome of left shoulder Insomnia Left wrist pain Migraines MOISES (obstructive sleep apnea) Overactive bladder Seborrheic keratosis (12/15/16) upper back of left arm Skin lesion SVT (supraventricular tachycardia) Tendonitis of left rotator cuff Injection: 08/04/2019 Trochanteric bursitis of right hip Trochanteric bursitis, left hip S/P ITB tenotomy and bursal debridement DOS: 12/24/18 Dr. 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 Perez History of cardiac cath Non-obstructive CAD, Elevated LV end diastolic pressure. no stents Hx of breast biopsy Left carpal tunnel syndrome S/P ECTR: 03/23/2020 Left rotator cuff tear s/p arthroscopic rotator cuff repair 04/28/20 s/p arthroscopic revision rotator cuff repair: 08/11/2020 Oophrectomy, Left with hyst , Ectopic (~1983) Right carpal tunnel syndrome S/P ECTR: 03/23/2020 Status post right rotator cuff repair Right repeat rotator cuff repair, also has had left RTC repaired. Date of surgery: 04/16/18 Dr. Perez Tobacco Smoking/Tobacco Use Status: Former Tobacco Use Alcohol Alcohol Intake: never Substance Use Substance use: Never Substance use type: does not use Vital Signs and Lab Results Vital Signs Most Recent Vital Signs in EMR: Most Recent Vital Signs Temp Pulse Resp BP Pulse Ox 36.2 C L 70 16 150/87 H 97 01/13/22 11:32 01/13/22 11:32 01/13/22 11:32 01/13/22 11:32 01/13/22 11:32 Lab Results Blood Type / Crossmatch: No Data to Display Complete Blood Count: White Blood Count 7.38 10^3/uL (4.4-10.8) 12/30/21 10:00 12/30/21 Red Blood Count 4.75 10^6/uL (3.93-5.22) 12/30/21 10:00 12/30/21 Hemoglobin 14.4 g/dL (11.2-15.7) 12/30/21 10:00 12/30/21 Hematocrit 44.4 % (36.0-46.0) 12/30/21 10:00 12/30/21 Platelet Count 197 10^3/uL (130-400) 12/30/21 10:00 12/30/21 Complete Metabolic Panel: Sodium Level 143 mmol/L (136-145) 12/30/21 10:00 12/30/21 Potassium Level 4.3 mmol/L (3.5-5.1) 12/30/21 10:00 12/30/21 Chloride Level 109 mmol/L (98-107) H 12/30/21 10:00 12/30/21 Carbon Dioxide Level 23.1 mmol/L (21.0-32.0) 12/30/21 10:00 12/30/21 Blood Urea Nitrogen 11 mg/dL (7-18) 12/30/21 10:00 12/30/21 Creatinine 0.9 mg/dL (0.55-1.02) 12/30/21 10:00 12/30/21 Estimated GFR/1.73 m2 >= 60.00 (mL/min/1.73m2) 12/30/21 10:00 12/30/21 Calcium Level 8.9 mg/dL (8.5-10.1) 12/30/21 10:00 12/30/21 Albumin 3.7 g/dL (3.4-5.0) 12/30/21 10:00 12/30/21 Glucose Level 101 mg/dL (74-106) 12/30/21 10:00 12/30/21 Hemoglobin A1c 5.8 % (<5.7) H 12/30/21 10:00 12/30/21 Liver Function Panel: Alanine Aminotransferase (ALT/SGPT) 38 U/L (14-59) 12/30/21 10:00 12/30/21 Aspartate Amino Transf (AST/SGOT) 34 U/L (15-37) 12/30/21 10:00 12/30/21 Coagulation Panel: No Data to Display Cardiac Panel: No Data to Display Arterial Blood Gas: No Data to Display Venous Blood Gas: No Data to Display Pancreas Panel: No Data to Display Thyroid Panel: Thyroid Stimulating Hormone (TSH) 1.07 uIU/mL (0.36-3.74) 12/30/21 10:00 12/30/21 Infectious Disease: No Data to Display Blood Cultures: No Data to Display Toxicology Panel: No Data to Display Anesthesia Assessment and Plan Anesthesia History Personal History: PONV and Delayed Emergence Family History: No Family History of Anesthesia Complications Exercise Tolerance Exercise Tolerance: Metabolic Equivalents<4 Pertinent Negatives Pertinent Negatives: No Symptoms of GERD Cardiac & Pulmonary Exam Cardiac Exam: Normal S1/S2 Heart Sounds Pulmonary Exam: Clear Bilateral Breath Sounds Implantable Cardiac Device Does patient have a Pacemaker or an ICD?: No Airway Exam Known Difficult Airway: No Mallampati Class: 4 Mouth Opening: Narrow (< 3cm) Thyromental Distance: Greater than 3 cm Neck Range of Motion: Full ROM Neck Circumference: Thick Teeth Condition: Normal Dentition ASA Classification ASA Score: ASA 2 Emergency Case?: No NPO Status NPO Status: NPO Clears >2 hours, Solids >8 hours Anesthesia Plan Resuscitation Status: Full Code Anesthesia Technique: General Anesthesia Airway Planned: Natural Airway Monitors Used: Standard Monitors
[2022-01-13 12:09] VITALS: BMI 34.3
--- NOTE | 2022-01-13 12:34 | BOWEL_PTH ---
PATIENT: Agatha Yi LOC: [facility] U#:[id number] AGE/SX: 61/F ROOM: RE01/13/[address]: Evonne Scales : 1960 BED: DIS: 01/13/2022 SPEC #: [id number] RECD: 01/13/22 13:17 STATUS: JOE REQ #: [id number] VASQUEZ: 01/13/22 12:[address]: Evonne Scales DEPT: Surgical Specimen RECD BY: Juliana Carvajal ENTERED: 01/13/22 13:18 SP TYPE: Bowel OTHR DR: Kerry Ascencio Tissues: 1 - BIOPSY BOWEL Procedures: GROSS AND MICRO LEVEL 4 Comments: [id number]
[2022-01-13 12:52] VITALS: BP 120/70; PULSE 71; RESP 16; TEMP 36.6; O2SAT 97
--- NOTE | 2022-01-13 13:03 | W.ANESPOSTOP ---
Postoperative Evaluation Date, Time and Location Date Performed: 01/13/22 Time Performed: 13:04 Patient Location: Day Surgery Unit Vital Signs Most Recent Imported Vital Signs: Most Recent Vital Signs Temp Pulse Resp BP Pulse Ox 36.6 C 71 16 120/70 97 01/13/22 12:52 01/13/22 12:52 01/13/22 12:52 01/13/22 12:52 01/13/22 12:52 Pain Score Most Recent Pain Score: Most Recent Pain Score Pain Level 0 01/13/22 12:52 Assessment Mental Status: Awake (Alert & Oriented to Patient Baseline) Airway and Respiratory Function: Patent airway with normal (patient baseline) respiratory exam Cardiovascular Function: Hemodynamically Stable Hydration Status: Adequately Hydrated Nausea & Vomiting: No Nausea or Vomiting Pain: Pt. Denies Any Pain Peripheral Nerve Block: Patient did not receive a nerve block
[2022-01-13 13:19] VITALS: BP 138/84; PULSE 61; RESP 16; TEMP 36.5; O2SAT 96
== END 2022-01-13 14:05 | disposition home or self-care (01) ==
PROVIDERS: PCP Internal Medicine; Visit Provider Surgery
PROC: 0DJD8ZZ Inspection of Lower Intestinal Tract, Via Natural or Artificial Opening Endoscopic (ICD-10-PCS; CPT 45378; principal; 2022-01-13 11:15)
DX: Z12.11 Encounter for screening for malignant neoplasm of colon (principal); K59.09 Other constipation; I25.10 Atherosclerotic heart disease of native coronary artery without angina pectoris; J45.20 Mild intermittent asthma, uncomplicated; K57.30 Diverticulosis of large intestine without perforation or abscess without bleeding; K64.4 Residual hemorrhoidal skin tags; K64.8 Other hemorrhoids
CPT/HCPCS: 45380; 88305

== ENCOUNTER 2022-02-08 04:14 | Outpatient (CLI) | payer MEDICAID, SELFPAY ==
[2022-02-08 10:10] LABS: Source Nasal/Nares
[2022-02-08 14:15] LABS: COVID-19 PCR Negative (Negative)
== END 2022-02-08 04:15 | disposition home or self-care (01) ==
LOC: LBO 04:14
PROVIDERS: PCP Internal Medicine; Visit Provider Student in an Organized Health Care Education/Training Program
DX: Z20.822 Contact with and (suspected) exposure to COVID-19 (principal); Z01.818 Encounter for other preprocedural examination
CPT/HCPCS: 87635

== ENCOUNTER 2022-02-10 07:10 | Day surgery (SDC) | payer MEDICAID, SELFPAY ==
[2022-02-10] VITALS (10 sets, daily range): BP systolic 107–143; BP diastolic 48–84; PULSE 55–77; RESP 13–25; TEMP 36.1–36.5; O2SAT 92–96; BMI 34.3
[2022-02-10] MEDS: Lactated Ringers 1,000 ML 30 ML IV (08:05)
--- NOTE | 2022-02-10 08:30 | W.ANESPRE ---
General Info Date of Service Date Performed: 02/10/22 Height: 5 ft 1 in Weight: 82.5 kg Body Mass Index (BMI): 34.3 Surgical Procedure: Operation Date: 02/10/22 08:55 Proposed Procedure Side Surgeon p Shoulder Arthroscopy w/ Revision Extensive Debridement, Subacromial Decompression, Distal Clavicle Excision and Poss. Rotator Cuff Repair vs Alllograft Augmentation Left Angel Sears MD Meds Allergies and Home Medications Allergies Allergy/AdvReac Type Severity Reaction Status Date / Time tetrabenazine Allergy Severe RASH,HIVES Verified 02/10/22 07:41 amoxicillin Allergy Intermediate Skin Rash Verified 02/10/22 07:41 hydrocodone [From Vicodin] Allergy Intermediate PRURITIS Verified 02/10/22 07:41 morphine Allergy Intermediate ITCHY, SICK Verified 02/10/22 07:41 peanut Allergy Intermediate Anaphylaxsi Verified 02/10/22 07:41 s tree nut Allergy Intermediate Anaphylaxsi Verified 02/10/22 07:41 s adhesive AdvReac Intermediate RASH AND Verified 02/10/22 07:41 SWELLING alcohol AdvReac Intermediate RASH Verified 02/10/22 07:41 [From Mastisol Liquid Adhesive] gum mastic AdvReac Intermediate RASH Verified 02/10/22 07:41 [From Mastisol Liquid Adhesive] methyl salicylate AdvReac Intermediate RASH Verified 02/10/22 07:41 [From Mastisol Liquid Adhesive] storax AdvReac Intermediate RASH Verified 02/10/22 07:41 [From Mastisol Liquid Adhesive] benzoin AdvReac Mild Skin Rash Verified 02/10/22 07:41 cat dander AdvReac Mild WATERY EYES Verified 02/10/22 07:41 milk AdvReac Unknown Verified 02/10/22 07:41 pollen extracts AdvReac Unknown watery eyes Verified 02/10/22 07:41 dog dander AdvReac WATERY EYES Verified 02/10/22 07:41 RAW FRUIT Allergy Unknown Uncoded 02/10/22 07:41 DUST AdvReac Unknown Uncoded 02/10/22 07:41 Home Medication Medication Instructions Recorded citalopram 10 mg tablet (Celexa) 20 mg PO DAILY 10/08/13 meclizine 12.5 mg tablet 25 mg PO TID PRN 10/08/13 rosuvastatin 20 mg tablet (Crestor) 40 mg PO DAILY 10/08/13 epinephrine 0.3 mg/0.3 mL 0.3 mg (0.3 mL) IJ PRN PRN 07/21/16 injection, auto-injector Anaphylaxis ##1 acyclovir 200 mg capsule 200 mg PO DIRECTED PRN 06/01/17 sumatriptan succinate 50 mg tablet 50 mg PO DIRECTED PRN 06/01/17 nitroglycerin 0.4 mg sublingual 0.4 mg sublingual DIRECTED 12/31/17 tablet cetirizine 10 mg tablet 10 mg PO DAILY 12/20/18 sennosides 8.6 mg tablet (senna) 8.6 mg PO DAILY 03/22/20 acetaminophen 500 mg capsule 500 mg PO Q4H PRN pain #30 caps 08/11/20 celecoxib 100 mg capsule (Celebrex) 100 mg PO BID 11/15/20 levothyroxine 75 mcg tablet 100 mcg PO DAILY 11/15/20 topiramate 50 mg tablet 75 mg PO HS 03/29/21 clindamycin HCl 150 mg capsule 150 mg PO PRN 06/01/21 ezetimibe 10 mg tablet 10 mg PO DAILY 06/12/21 albuterol sulfate 90 mcg/actuation 2 puff inhalation Q6H PRN 12/06/21 aerosol inhaler (ProAir HFA) budesonide-formoterol HFA 160 2 puff inhalation BID 12/06/21 mcg-4.5 mcg/actuation aerosol inhaler (Symbicort) aspirin 81 mg tablet,delayed 81 mg PO DAILY 12/22/21 release diltiazem HCl 120 mg 120 mg PO DAILY 01/13/22 capsule,extended release 24 hr, controlled aspirin 81 mg tablet,delayed 81 mg PO DAILY Prevent blood clot 02/10/22 release 14 days #14 tabs naproxen 250 mg tablet 250 - 500 mg PO BID PRN #20 tabs 02/10/22 oxycodone 5 mg tablet 5 - 10 mg PO Q4H PRN moderate to 02/10/22 severe pain #12 tabs Current Visit Medications: Current Medications Generic Name Dose Route Start Last Admin Trade Name Freq PRN Reason Stop Dose Admin Ringer's Solution 1,000 mls @ 30 mls/hr 02/10/22 06:00 02/10/22 08:05 IV 02/14/22 23:59 30 mls/hr INFUSION MAJO Administration Cefazolin Sodium/Dextrose 2 gm in 50 mls @ 100 mls/hr 02/10/22 06:00 Ancef Duplex IVPB 02/10/22 23:59 PREOP MAJO IV Miscellaneous Supplies 1 each 02/10/22 06:00 Iv Access IV 02/14/22 23:59 DIRECTED MAJO Sodium Chloride 0 ml 02/10/22 06:00 Normal Saline Flush 10 Ml Syr IV 02/14/22 23:59 PRN PRN Sodium Chloride 0 ml 02/10/22 06:00 Normal Saline 10 Ml Vial IJ 02/14/22 23:59 DIRECTED PRN Sterile Water 0 ml 02/10/22 06:00 Water,Injection,Sterile 10 Ml Vial IJ 02/14/22 23:59 DIRECTED PRN PFSH Active Problems Active Problems: Problem Status Onset Code Mild intermittent asthma without complication 11/08/15 J45.20 Screening for colon cancer Z12.11 Coronary arteriosclerosis I25.10 Rectal bleed K62.5 Rectal bleeding K62.5 Chronic constipation K59.09 Normal colonoscopy ~01/13/22 Medical History Medical History Arthritis of left acromioclavicular joint s/p distal clavicle excision, 04/28/20 Atypical chest pain Pt. states They don't know what it is, Dr. Oglesby thinks its just muscular, and not cardiac related Bursitis of left shoulder Chronic back pain Colicky RUQ abdominal pain Complete tear of right rotator cuff (12/03/17) COVID-19 De Quervain's tenosynovitis, left Depression Elevated cholesterol Fatigue GERD (gastroesophageal reflux disease) pt. denies this HTN (hypertension) Hypothyroidism Impingement syndrome of left shoulder Insomnia Left wrist pain Migraines MOISES (obstructive sleep apnea) Overactive bladder Seborrheic keratosis (12/15/16) upper back of left arm Skin lesion SVT (supraventricular tachycardia) Tendonitis of left rotator cuff Injection: 08/04/2019 Trochanteric bursitis of right hip Trochanteric bursitis, left hip S/P ITB tenotomy and bursal debridement DOS: 12/24/18 Dr. 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 Perez History of cardiac cath Non-obstructive CAD, Elevated LV end diastolic pressure. no stents History of colonoscopy (~01/13/22) Hx of breast biopsy Left carpal tunnel syndrome S/P ECTR: 03/23/2020 Left rotator cuff tear s/p arthroscopic rotator cuff repair 04/28/20 s/p arthroscopic revision rotator cuff repair: 08/11/2020 Oophrectomy, Left with hyst , Ectopic (~1983) Right carpal tunnel syndrome S/P ECTR: 03/23/2020 Status post right rotator cuff repair Right repeat rotator cuff repair, also has had left RTC repaired. Date of surgery: 04/16/18 Dr. Perez Tobacco Smoking/Tobacco Use Status: Former Tobacco Use Alcohol Alcohol Intake: never Substance Use Substance use: Never Substance use type: does not use Vital Signs and Lab Results Vital Signs Most Recent Vital Signs in EMR: Most Recent Vital Signs Temp Pulse Resp BP Pulse Ox 36.1 C L 77 16 114/78 95 02/10/22 07:23 02/10/22 07:23 02/10/22 07:23 02/10/22 07:23 02/10/22 07:23 Lab Results Blood Type / Crossmatch: No Data to Display Complete Blood Count: No Data to Display Complete Metabolic Panel: No Data to Display Liver Function Panel: No Data to Display Coagulation Panel: No Data to Display Cardiac Panel: No Data to Display Arterial Blood Gas: No Data to Display Venous Blood Gas: No Data to Display Pancreas Panel: No Data to Display Thyroid Panel: No Data to Display Infectious Disease: Coronavirus (COVID-19)(PCR) Negative (Negative) 02/08/22 09:37 Coronavirus 2019 Source Nasal/Nares 02/08/22 09:37 Blood Cultures: No Data to Display Toxicology Panel: No Data to Display Anesthesia Assessment and Plan Anesthesia History Personal History: PONV and Delayed Emergence Family History: Other Exercise Tolerance Exercise Tolerance: Metabolic Equivalents<4 Pertinent Negatives Pertinent Negatives: No Symptoms of GERD, No Major Cardiovascular Symptoms or Complaints, No Major Pulmonary Symptoms or Complaints and No History of CVA/TIA Cardiac & Pulmonary Exam Cardiac Exam: Normal S1/S2 Heart Sounds Pulmonary Exam: Clear Bilateral Breath Sounds Implantable Cardiac Device Does patient have a Pacemaker or an ICD?: No Airway Exam Known Difficult Airway: No Mallampati Class: 4 Mouth Opening: Narrow (< 3cm) Thyromental Distance: Greater than 3 cm Neck Range of Motion: Full ROM Neck Circumference: Thick Teeth Condition: Normal Dentition ASA Classification ASA Score: ASA 2 Emergency Case?: No NPO Status NPO Status: NPO Clears >2 hours, Solids >8 hours Anesthesia Plan Resuscitation Status: Full Code Anesthesia Technique: General Anesthesia Airway Planned: Endotracheal Tube Pain Management: Surgeon and patient request nerve block Monitors Used: Standard Monitors
--- NOTE | 2022-02-10 08:32 | W.ANESNERVE ---
Nerve Block Single Injection Procedure Date and Time Date Performed: 02/10/22 Procedure Start: 08:40 Location Where Procedure Performed Procedure Location: Day Surgery Unit Reason Performed: Postoperative Analgesia Requesting Provider: Angel Sears Timeout Performed Timeout Performed: Yes Monitoring Used ECG, Blood Pressure, SpO2 and ETCO2 Sterility Sterility: Hand Hygiene, Surgical Cap, Surgical Mask, Sterile Gloves, Sterile Drape/Sheet, Eye Protection and Chlorhexidine Sedation Given During Procedure Sedation Given (Indicate Dose Given): No Sedation given Patient Mental Status Patient Mental Status: Awake Nerve Block 1st Nerve Block: Laterality: Left Block Type: Supraclavicular Needle / Catheter Used: 100mm SonoPlex II Local Anesthetic Bolus (Indicate Dose Given): Lidocaine used for local infiltration of skin, Injected in 3-5ml increments after negative blood aspiration and Bupivacaine 0.5% Dose:: 15 mL Additives (Indicate Dose Given): None Ultrasound: Sterile probe cover and gel used Ultrasound Image Saved?: Yes Nerve Stimulator: Not Used Paresthesia: None Procedure Tolerated: Patient tolerated well and Other (Small raised area noted after procedure at location of lidocaine injection, (white/red)) Procedure Outcome: Successful Performed By: Aleyda Larsen Supervised By: Karen Patel
--- NOTE | 2022-02-10 09:00 | W.ANESPRE ---
General Info Date of Service Date Performed: 02/10/22 Height: 5 ft 1 in Weight: 82.5 kg Body Mass Index (BMI): 34.3 Surgical Procedure: Operation Date: 02/10/22 08:55 Proposed Procedure Side Surgeon p Shoulder Arthroscopy w/ Revision Extensive Debridement, Subacromial Decompression, Distal Clavicle Excision and Poss. Rotator Cuff Repair vs Alllograft Augmentation Left Angel Sears MD Meds Allergies and Home Medications Allergies Allergy/AdvReac Type Severity Reaction Status Date / Time tetrabenazine Allergy Severe RASH,HIVES Verified 02/10/22 07:41 amoxicillin Allergy Intermediate Skin Rash Verified 02/10/22 07:41 hydrocodone [From Vicodin] Allergy Intermediate PRURITIS Verified 02/10/22 07:41 morphine Allergy Intermediate ITCHY, SICK Verified 02/10/22 07:41 peanut Allergy Intermediate Anaphylaxsi Verified 02/10/22 07:41 s tree nut Allergy Intermediate Anaphylaxsi Verified 02/10/22 07:41 s adhesive AdvReac Intermediate RASH AND Verified 02/10/22 07:41 SWELLING alcohol AdvReac Intermediate RASH Verified 02/10/22 07:41 [From Mastisol Liquid Adhesive] gum mastic AdvReac Intermediate RASH Verified 02/10/22 07:41 [From Mastisol Liquid Adhesive] methyl salicylate AdvReac Intermediate RASH Verified 02/10/22 07:41 [From Mastisol Liquid Adhesive] storax AdvReac Intermediate RASH Verified 02/10/22 07:41 [From Mastisol Liquid Adhesive] benzoin AdvReac Mild Skin Rash Verified 02/10/22 07:41 cat dander AdvReac Mild WATERY EYES Verified 02/10/22 07:41 milk AdvReac Unknown Verified 02/10/22 07:41 pollen extracts AdvReac Unknown watery eyes Verified 02/10/22 07:41 dog dander AdvReac WATERY EYES Verified 02/10/22 07:41 RAW FRUIT Allergy Unknown Uncoded 02/10/22 07:41 DUST AdvReac Unknown Uncoded 02/10/22 07:41 Home Medication Medication Instructions Recorded citalopram 10 mg tablet (Celexa) 20 mg PO DAILY 10/08/13 meclizine 12.5 mg tablet 25 mg PO TID PRN 10/08/13 rosuvastatin 20 mg tablet (Crestor) 40 mg PO DAILY 10/08/13 epinephrine 0.3 mg/0.3 mL 0.3 mg (0.3 mL) IJ PRN PRN 07/21/16 injection, auto-injector Anaphylaxis ##1 acyclovir 200 mg capsule 200 mg PO DIRECTED PRN 06/01/17 sumatriptan succinate 50 mg tablet 50 mg PO DIRECTED PRN 06/01/17 nitroglycerin 0.4 mg sublingual 0.4 mg sublingual DIRECTED 12/31/17 tablet cetirizine 10 mg tablet 10 mg PO DAILY 12/20/18 sennosides 8.6 mg tablet (senna) 8.6 mg PO DAILY 03/22/20 acetaminophen 500 mg capsule 500 mg PO Q4H PRN pain #30 caps 08/11/20 celecoxib 100 mg capsule (Celebrex) 100 mg PO BID 11/15/20 levothyroxine 75 mcg tablet 100 mcg PO DAILY 11/15/20 topiramate 50 mg tablet 75 mg PO HS 03/29/21 clindamycin HCl 150 mg capsule 150 mg PO PRN 06/01/21 ezetimibe 10 mg tablet 10 mg PO DAILY 06/12/21 albuterol sulfate 90 mcg/actuation 2 puff inhalation Q6H PRN 12/06/21 aerosol inhaler (ProAir HFA) budesonide-formoterol HFA 160 2 puff inhalation BID 12/06/21 mcg-4.5 mcg/actuation aerosol inhaler (Symbicort) aspirin 81 mg tablet,delayed 81 mg PO DAILY 12/22/21 release diltiazem HCl 120 mg 120 mg PO DAILY 01/13/22 capsule,extended release 24 hr, controlled aspirin 81 mg tablet,delayed 81 mg PO DAILY Prevent blood clot 02/10/22 release 14 days #14 tabs naproxen 250 mg tablet 250 - 500 mg PO BID PRN #20 tabs 02/10/22 oxycodone 5 mg tablet 5 - 10 mg PO Q4H PRN moderate to 02/10/22 severe pain #12 tabs Current Visit Medications: Current Medications Generic Name Dose Route Start Last Admin Trade Name Freq PRN Reason Stop Dose Admin Ringer's Solution 1,000 mls @ 30 mls/hr 02/10/22 06:00 02/10/22 08:05 IV 02/14/22 23:59 30 mls/hr INFUSION MAJO Administration Cefazolin Sodium/Dextrose 2 gm in 50 mls @ 100 mls/hr 02/10/22 06:00 Ancef Duplex IVPB 02/10/22 23:59 PREOP MAJO IV Miscellaneous Supplies 1 each 02/10/22 06:00 Iv Access IV 02/14/22 23:59 DIRECTED MAJO Sodium Chloride 0 ml 02/10/22 06:00 Normal Saline Flush 10 Ml Syr IV 02/14/22 23:59 PRN PRN Sodium Chloride 0 ml 02/10/22 06:00 Normal Saline 10 Ml Vial IJ 02/14/22 23:59 DIRECTED PRN Sterile Water 0 ml 02/10/22 06:00 Water,Injection,Sterile 10 Ml Vial IJ 02/14/22 23:59 DIRECTED PRN PFSH Active Problems Active Problems: Problem Status Onset Code Mild intermittent asthma without complication 11/08/15 J45.20 Screening for colon cancer Z12.11 Coronary arteriosclerosis I25.10 Rectal bleed K62.5 Rectal bleeding K62.5 Chronic constipation K59.09 Normal colonoscopy ~01/13/22 Medical History Medical History Arthritis of left acromioclavicular joint s/p distal clavicle excision, 04/28/20 Atypical chest pain Pt. states They don't know what it is, Dr. Oglesby thinks its just muscular, and not cardiac related Bursitis of left shoulder Chronic back pain Colicky RUQ abdominal pain Complete tear of right rotator cuff (12/03/17) COVID-19 De Quervain's tenosynovitis, left Depression Elevated cholesterol Fatigue GERD (gastroesophageal reflux disease) pt. denies this HTN (hypertension) Hypothyroidism Impingement syndrome of left shoulder Insomnia Left wrist pain Migraines MOISES (obstructive sleep apnea) Overactive bladder Seborrheic keratosis (12/15/16) upper back of left arm Skin lesion SVT (supraventricular tachycardia) Tendonitis of left rotator cuff Injection: 08/04/2019 Trochanteric bursitis of right hip Trochanteric bursitis, left hip S/P ITB tenotomy and bursal debridement DOS: 12/24/18 Dr. 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 Perez History of cardiac cath Non-obstructive CAD, Elevated LV end diastolic pressure. no stents History of colonoscopy (~01/13/22) Hx of breast biopsy Left carpal tunnel syndrome S/P ECTR: 03/23/2020 Left rotator cuff tear s/p arthroscopic rotator cuff repair 04/28/20 s/p arthroscopic revision rotator cuff repair: 08/11/2020 Oophrectomy, Left with hyst , Ectopic (~1983) Right carpal tunnel syndrome S/P ECTR: 03/23/2020 Status post right rotator cuff repair Right repeat rotator cuff repair, also has had left RTC repaired. Date of surgery: 04/16/18 Dr. Perez Tobacco Smoking/Tobacco Use Status: Former Tobacco Use Alcohol Alcohol Intake: never Substance Use Substance use: Never Substance use type: does not use Vital Signs and Lab Results Vital Signs Most Recent Vital Signs in EMR: Most Recent Vital Signs Temp Pulse Resp BP Pulse Ox 36.1 C L 77 16 114/78 95 02/10/22 07:23 02/10/22 07:23 02/10/22 07:23 02/10/22 07:23 02/10/22 07:23 Lab Results Blood Type / Crossmatch: No Data to Display Complete Blood Count: No Data to Display Complete Metabolic Panel: No Data to Display Liver Function Panel: No Data to Display Coagulation Panel: No Data to Display Cardiac Panel: No Data to Display Arterial Blood Gas: No Data to Display Venous Blood Gas: No Data to Display Pancreas Panel: No Data to Display Thyroid Panel: No Data to Display Infectious Disease: Coronavirus (COVID-19)(PCR) Negative (Negative) 02/08/22 09:37 Coronavirus 2019 Source Nasal/Nares 02/08/22 09:37 Blood Cultures: No Data to Display Toxicology Panel: No Data to Display Imaging and Studies Imaging and Studies Study information below may be from another EMR and interpreted by another provider. Please see original notes in EMR for more complete details. Stress Test Summary: Impressions: Abnormal study after pharmacologic stress. Summary: 1. Myocardial perfusion imaging: There is a small sized, mildly intense, partially reversible defect involving the anterior wall(s). This suggests small ischemia in the distribution of the left anterior descending coronary artery. Overall ischemia: small. 2. The calculated left ventricular ejection fraction after stress: 68%. No left ventricular regional motion abnormalit mpressions: Indeterminate stress test to submaximal heart rate. Summary: 1. Stress ECG conclusions: The stress ECG is negative to less than 85% MPHR. 2. Stress: The target heart rate was not achieved. The heart rate response to stress is blunted. There is a normal resting blood pressure with an appropriate response to stress. The patient experienced no chest pain during stress. Exercise capacity is average for age. Carotid Artery Summary:: FINDINGS: There is mild plaque noted at the level the carotid bulbs and proximal internal carotid arteries bilaterally. However, there are no significantly elevated velocities at these levels. Flow is demonstrated to be antegrade in both vertebral arteries. Anesthesia Assessment and Plan Anesthesia History Personal History: PONV and Delayed Emergence Family History: Other Exercise Tolerance Exercise Tolerance: Metabolic Equivalents<4 Pertinent Negatives Pertinent Negatives: No Symptoms of GERD, No Major Cardiovascular Symptoms or Complaints, No Major Pulmonary Symptoms or Complaints and No History of CVA/TIA Cardiac & Pulmonary Exam Cardiac Exam: Normal S1/S2 Heart Sounds Pulmonary Exam: Clear Bilateral Breath Sounds Implantable Cardiac Device Does patient have a Pacemaker or an ICD?: No Airway Exam Known Difficult Airway: No Mallampati Class: 4 Mouth Opening: Narrow (< 3cm) Thyromental Distance: Greater than 3 cm Neck Range of Motion: Full ROM Neck Circumference: Thick Teeth Condition: Normal Dentition Airway Comments: patient states she has a chipped tooth that was chipped from a previous surgery in the front top ASA Classification ASA Score: ASA 2 Emergency Case?: No NPO Status NPO Status: NPO Clears >2 hours, Solids >8 hours Anesthesia Plan Resuscitation Status: Full Code Anesthesia Technique: General Anesthesia Airway Planned: Endotracheal Tube Pain Management: Surgeon and patient request nerve block Monitors Used: Standard Monitors
[2022-02-10] MEDS: ceFAZolin 2 GM/50 ML BAG IVPB (10:05)
--- NOTE | 2022-02-10 11:59 | W.PM.DSUDISC ---
Discharge Plan Disposition Patient Disposition: HOME Condition: Stable Discharge Details Reason For Visit: Left shoulder surgery Attending Provider: Angel Sears Primary Care Provider: Kerry Ascencio Home Meds and New Rx's Prescriptions: New aspirin 81 mg tablet,delayed release (DR/EC) 81 mg PO DAILY 14 Days Qty: 14 0RF naproxen 250 mg tablet 250 - 500 mg PO BID PRNQty: 20 0RF Rx Instructions: take with a meal oxycodone 5 mg tablet 5 - 10 mg PO Q4H MDD 30 mg PRN (Reason: moderate to severe pain) Qty: 12 0RF Continued celecoxib [Celebrex] 100 mg capsule 100 mg PO BID albuterol sulfate [ProAir HFA] 90 mcg/actuation HFA aerosol inhaler 2 puff inhalation Q6H PRN budesonide-formoterol [Symbicort] 160-4.5 mcg/actuation HFA aerosol inhaler 2 puff inhalation BID clindamycin HCl 150 mg capsule 150 mg PO PRN Rx Instructions: prior to dental appt. citalopram [Celexa] 10 MG tablet 20 mg PO DAILY Label Comments: 10 mg tab and 20 mg tab total 30. meclizine 12.5 MG tablet 25 mg PO TID PRN Label Comments: prn rosuvastatin [Crestor] 20 MG tablet 40 mg PO DAILY sumatriptan succinate 50 MG tablet 50 mg PO DIRECTED PRN acyclovir 200 MG capsule 200 mg PO DIRECTED PRN levothyroxine 75 mcg tablet 100 mcg PO DAILY topiramate 50 mg tablet 75 mg PO HS aspirin 81 mg tablet,delayed release (DR/EC) 81 mg PO DAILY epinephrine 0.3 MG/SYR auto-injector 0.3 mg IJ PRN PRN (Reason: Anaphylaxis) Qty: 1 0RF nitroglycerin 0.4 MG tablet, sublingual 0.4 mg Sublingual DIRECTED acetaminophen 500 mg capsule 500 mg PO Q4H PRN (Reason: pain) Qty: 30 0RF cetirizine 10 mg Tablet 10 mg PO DAILY sennosides [senna] 8.6 mg Tablet 8.6 mg PO DAILY ezetimibe 10 mg tablet 10 mg PO DAILY Label Comments: TAKE 1 TABLET BY MOUTH EVERY DAY diltiazem HCl 120 mg Capsule,Ext.Rel 24h Degradable 120 mg PO DAILY Discontinued ibuprofen 600 mg tablet 600 mg PO TID PRN (Reason: pain) Qty: 30 0RF Discharge Instructions Additional Instructions: Surgery: Left shoulder arthroscopy with revision extensive debridement, distal clavicle excision, and subacromial decompression. Activity: You should gradually increase range of motion motion and use of your shoulder. Please perform daily stretching exercises. You may use your shoulder for all regular activities. Avoid heavy lifting, reaching overhead, and lifting away from body for approximately 6 to 8 weeks. You may use the sling whenever you are out of the house for a few weeks. At home it is best to remove the sling and rest the arm on a pillow at your side or support the operative side with your other hand. A physical therapy prescription will be sent electronically to start in about 2 weeks. Prescriptions: Aspirin 81 mg take 1 daily to prevent a blood clot for 2 weeks Naproxen 250 mg take 1-2 every 12 hours with a meal as needed for moderate pain Oxycodone 5 mg take 1-2 every 4-6 hours as needed for severe pain You may use oboc-get-lmmyypx Tylenol (acetaminophen) as needed for mild pain. These pain medications may be taken all at once or in different combinations as needed. Also, recommend Colace (docusate) as a stool softener as surgery and pain medicine cause constipation. You may try bsuk-[id number] diphenhydramine (Benadryl) 25-50 mg nightly as a sleep aid Dressings: Remove shoulder bandage after 3 days. Leave the sticky Steri-Strips in place until they fall off or remove them after you shower. Cover the incisions with Band-Aids or leave them open to air. You may shower after 5 days. Follow-up: 10-[address] Sears You may take off the leg compression stockings this evening at home. You may also leave them on a few days longer if you have a history of leg swelling or edema. Let us know right away if you develop any redness, drainage, fevers, chest pain, or trouble breathing. Do not drink alcohol or drive for at least 24 hours after anesthesia. Please call the office during business hours with any questions or concerns. Referrals: Angel Sears MD [ [facility] STAFF PHYSICIAN] - Discharge Orders Discharge Orders: Discharge Order (Routine); Ordered 02/10/22 Ordered By: Angel Sears DS: Diagnosis Discharge Diagnosis (1) Arthritis of left acromioclavicular joint: (2) Bursitis of left shoulder: (3) Left rotator cuff tear:
[2022-02-10] MEDS: EPINEPHrine 30 MG/30 ML VIAL (12:04)
[2022-02-10] MEDS: fentaNYL 100 MCG/2 ML VIAL IVP ×2 (12:10→12:34)
--- NOTE | 2022-02-10 12:10 | W.PM.OP ---
Operative Note Operative Note DATE OF PROCEDURE: 02/10/22 PRE-OP DIAGNOSIS: Right: 1. Rotator cuff re-tear 2. Bursitis 3. Impingement 4. AC joint pain POST-OP DIAGNOSIS: same PROCEDURE: Right: 1. Revision extensive debridement, CPT# 63542. This involved using arthroscopic hand instruments, power instruments, and radiofrequency instruments to debride areas of labral tearing, SLAP tearing, release the anterior capsular scarring and [facility] L, remove retained permanent sutures, and smooth chondromalacia about the articular sided rotator cuff partial tearing working within the glenohumeral joint anteriorly, superiorly and posteriorly. . 2. 2. Revision arthroscopic distal clavicle excision, CPT# 03726. This involved arthroscopically exposing the underside of the acromioclavicular joint and smoothing out residual bone spurs on the medial aspect of the acromion so there is no possible scarring or bone left engaging the distal clavicle. 3. Subacromial decompression with partial acromioplasty, CPT# 67364. This involved using arthroscopic power instruments and a radiofrequency wand to complete a bursectomy and smooth residual bone spurs on the undersurface of the acromion. The legal support assistant was medically required in order to help assist in techniques above, which require positioning the arm, holding the arthroscope, and manipulating multiple instruments and sutures at the same time. This cannot be done without the help of an experienced legal support assistant. SURGEON: Angel Sears BUSINESS INSIGHT AND ANALYTICS MANAGER: Emmy Liao ANESTHESIA TYPE: General LMA/ETT and Primary Nerve Block Refer to Anesthesia Record ESTIMATED BLOOD LOSS: 10 PATHOLOGY: none sent COMPLICATIONS: None Patient was transported to: PACU Patient's condition: stable Implants: No new Indications: The patient was diagnosed with the above conditions and appropriately indicated for surgical intervention. Please see complete medical record for details. Findings: Exam under anesthesia: Full range of motion, but tightness going into external rotation at the side past 45 degrees, no instability Glenohumeral joint: Significant anterior superior and posterior labral fraying. Biceps tendon prior tenotomy. Intact subscapularis. Intact infraspinatus. Largely intact supraspinatus with some partial articular medial exposed suture anchor locations without any visible anchor material but a couple loops of frayed loose permanent suture. Rotator cuff was fairly well attached more laterally. There was no full-thickness tearing that could be probed. The articular amount of tendon residual tearing and thinning was less than 25%. Subacromial space: Mild residual bursitis, undersurface acromial medial bone spurring, and no significant bone engaging at the distal clavicle acromion joint. Procedure Description: In the operating room, general anesthesia was induced. Bilateral shoulders were examined. The patient was positioned in the beachchair position. All bony prominences were well-padded. Preoperative antibiotics were administered. The shoulder was prepped and draped in the usual sterile fashion. The correct patient, procedure, and side of the procedure were all verified prior to incision. Starting through the posterior portal a standard complete diagnostic arthroscopy was performed of the glenohumeral joint including inspection of the long head of the biceps, anterior and superior labrum, subscapularis tendon, supraspinatus and infraspinatus tendons, and axillary recess. The glenoid and humeral head cartilage as well as the posterior labrum were inspected from an anterior viewing portal. Significant findings and interventions noted above. The anterior capsule was debrided and [facility] L anterior capsule released carefully away from the subscapularis and anterior labrum with arthroscopic scissors. The edges were debrided with the radiofrequency wand and the mechanical shaver. This was continued about the anterior superior posterior labrum to establish a stable margin. The articular rotator cuff was thoroughly inspected and articular rotator cuff tear and permanent suture material that could be readily removed removed. The rotator cuff had excellent healing with only a few millimeters of exposed articular supraspinatus footprint that was probably somewhat more medial than the anatomic footprint due to the prior repair. There was no prominent or exposed suture anchors. No full-thickness tearing. The rotator cuff was lightly debrided articular fraying as well as the articular sided exposed chondromalacia and greater tuberosity. Starting through the posterior portal, the arthroscope was directed into the subacromial space. A lateral 50 yard line lateral portal was omitted. A combination of power instruments and a radiofrequency ablator were used to debride bursitis anteriorly, posteriorly, and laterally as well as expose and smooth bone spurring on the undersurface of the acromion. The coracoacromial ligament was partially re-released. The bursectomy was completed and the rotator cuff was thoroughly inspected with no significant bursal tearing or full-thickness tearing. There was trampolining with probing of the rotator cuff. There was probable some abnormality and thinning although not appreciably significant anterior laterally. The rotator cuff was largely intact. The anterior portal was redirected towards the undersurface of the AC joint. A shaver and electrocautery device were used to clear soft tissue from the undersurface of the AC joint. The distalmost distal clavicle had already been removed. Scarring at the AC joint was carefully removed centrally taking care to preserve superior capsule. There was some medial bone spurring of the acromion that was smoothed with the mechanical shaver. There was no residual bone left engaging the distal clavicle. The shoulder was drained of arthroscopic fluid. All portal sites were copiously irrigated. These incisions were closed using 3-0 Monocryl in a buried fashion and then covered with Mastisol, Steri-Strips, Xeroform, dry gauze, and ABDs. The dressings were covered and secured with Medipore tape. The operative extremity was placed into a sling for immobilization. The patient awoke from anesthesia without complication and was transferred to the recovery room in a stable condition.
[2022-02-10] MEDS: traMADol 50 MG TAB PO (13:48)
--- NOTE | 2022-02-10 14:04 | W.ANESPOSTOP ---
Postoperative Evaluation Date, Time and Location Date Performed: 02/10/22 Time Performed: 14:04 Patient Location: Day Surgery Unit Vital Signs Most Recent Imported Vital Signs: Most Recent Vital Signs Temp Pulse Resp BP Pulse Ox 36.2 C L 74 18 107/64 93 02/10/22 13:15 02/10/22 13:15 02/10/22 13:15 02/10/22 13:15 02/10/22 13:15 Pain Score Most Recent Pain Score: Most Recent Pain Score Pain Level 8 02/10/22 13:15 Assessment Mental Status: Awake (Alert & Oriented to Patient Baseline) Airway and Respiratory Function: Patent airway with normal (patient baseline) respiratory exam Cardiovascular Function: Hemodynamically Stable Hydration Status: Adequately Hydrated Nausea & Vomiting: No Nausea or Vomiting Pain: Pain is tolerable per patient (-04/26 *this is the same as when i got here) Peripheral Nerve Block: Regional nerve block not resolved at time of post operative discharge
== END 2022-02-10 14:31 | disposition home or self-care (01) ==
PROVIDERS: PCP Internal Medicine; Visit Provider Student in an Organized Health Care Education/Training Program
PROC: (CPT 29827; principal; 2022-02-10 08:45)
DX: M19.012 Primary osteoarthritis, left shoulder (principal); M75.41 Impingement syndrome of right shoulder; M75.52 Bursitis of left shoulder; M75.122 Complete rotator cuff tear or rupture of left shoulder, not specified as traumatic; I10 Essential (primary) hypertension; E03.9 Hypothyroidism, unspecified; G47.33 Obstructive sleep apnea (adult) (pediatric)
CPT/HCPCS: 29823; 29824; 29826; 76942; J0690; J1100; J1885; J2405; J3010

== ENCOUNTER 2022-04-17 13:53 | Outpatient (REF) | payer MEDICAID, SELFPAY ==
--- NOTE | 2022-04-17 13:40 | SKI_PTH ---
PATIENT: Agatha Yi LOC: [facility] U#:[id number] AGE/SX: 61/F ROOM: RE04/17/[address]: Evonne Scales : 1960 BED: DIS: 04/17/2022 SPEC #: [id number] RECD: 04/17/22 16:49 STATUS: JOE REQ #: [id number] VASQUEZ: 04/17/22 13:[address]: Evonne Scales DEPT: Surgical Specimen RECD BY: Juliana Carvajal ENTERED: 04/17/22 16:50 SP TYPE: RAJNI SHETH DR: Kerry Ascencio Tissues: 1 - SKIN BIOPSY(SHAVE/PUNCH) Procedures: SKIN LEVEL 4 Comments: [id number]
== END 2022-04-17 13:54 | disposition home or self-care (01) ==
LOC: LBN 13:53
PROVIDERS: PCP Internal Medicine; Visit Provider Surgery
DX: L82.1 Other seborrheic keratosis (principal)
CPT/HCPCS: 88305

== ENCOUNTER 2022-05-21 09:40 | Emergency (ER) | payer MEDICAID, SELFPAY ==
[2022-05-21 09:44] VITALS: BP 137/95; PULSE 76; RESP 16; TEMP 37.3; O2SAT 95
--- NOTE | 2022-05-21 10:00 | DI.RAD_ITS ---
Exam(s) XR PORTABLE CHEST AP EXAM: XR PORTABLE CHEST AP CLINICAL HISTORY: Cough, Congestion TECHNIQUE: 2D digital imaging was performed. COMPARISON: CR,XR XR PORTABLE CHEST AP from 06/12/2021 CR XR WRIST LT COMPLETE from 08/02/2021 FINDINGS: Exam is mildly limited by suboptimal pulmonary inflation. LUNGS: Minimal linear scarring. Mild fibrotic changes. No focal area of consolidation.. No pleural abnormality seen. HEART: Normal. AORTA: Normal. BONES: Unremarkable for age. Soft tissues: Unremarkable. IMPRESSION: No acute findings. DATA REPOSITORY: RADIATION DOSE DELIVERED:
--- NOTE | 2022-05-21 10:07 | ED.GENADUL_ITS ---
Discharge Plan Disposition Patient Disposition: HOME Condition: Stable Discharge Details Clinical Impression: Bronchitis, acute Primary Care Provider: Kerry Ascencio ED Provider: Sveta Willams Home Meds and New Rx's Prescriptions: New prednisone 20 mg tablet 60 mg PO DAILY 5 Days Qty: 15 0RF azithromycin 250 mg tablet See Rx Instructions .ROUTE .COMPLEX 6 Days Qty: 6 0RF Rx Instructions: For 250 mg dose pack: take 500 mg today (day 1), then 250 mg for 4 days (days 2-5) No Action celecoxib [Celebrex] 100 mg capsule 100 mg PO BID clindamycin HCl 150 mg capsule 150 mg PO PRN Rx Instructions: prior to dental appt. citalopram [Celexa] 10 MG tablet 20 mg PO DAILY Label Comments: 10 mg tab and 20 mg tab total 30. meclizine 12.5 MG tablet 25 mg PO TID PRN Label Comments: prn rosuvastatin [Crestor] 20 MG tablet 40 mg PO DAILY acyclovir 200 MG capsule 200 mg PO DIRECTED PRN levothyroxine 75 mcg tablet 100 mcg PO DAILY topiramate 50 mg tablet 75 mg PO HS aspirin 81 mg tablet,delayed release (DR/EC) 81 mg PO DAILY epinephrine 0.3 MG/SYR auto-injector 0.3 mg IJ PRN PRN (Reason: Anaphylaxis) Qty: 1 0RF acetaminophen 500 mg capsule 500 mg PO Q4H PRN (Reason: pain) Qty: 30 0RF cetirizine 10 mg Tablet 10 mg PO DAILY sennosides [senna] 8.6 mg Tablet 8.6 mg PO DAILY ezetimibe 10 mg tablet 10 mg PO DAILY Label Comments: TAKE 1 TABLET BY MOUTH EVERY DAY diltiazem HCl 120 mg Capsule,Ext.Rel 24h Degradable 120 mg PO DAILY Discharge Instructions Additional Instructions: No evidence of pneumonia noted on the x-ray. Please take the prednisone 3 tablets a day x5 days and use the albuterol 1 or 2 puffs every 4-6 hours as needed for wheezing or shortness of breath. Take the antibiotics as directed. Take the antibiotics with yogurt or a probiotic. Follow up with primary care provider in 3-5 days. Return to ED sooner if any worsening or concerns. Increase oral fluids. Please take Tylenol or Ibuprofen with food every 4-6 hours as needed for pain and swelling. Referrals: Kerry Ascencio [Primary Care Provider] - 3 days Discharge Data Discharge Date/Time-TO BE ENTERED AT DEPARTURE: 05/21/22 11:15 Medical Decision Making 62-year-old female presents to the ER with approximately 4 weeks of cough congestion body aches. She also endorses some left ear pain. She was seen at urgent care approximately 2 weeks ago and was prescribed doxycycline which she reports she took 1 tablet and began throwing up. She is a former smoker. Chest x-ray, albuterol inhaler and 40 mg prednisone ordered. Chest x-ray within normal limits. This text was generated using Biztagation system, please disregard any oddities of phrase or misspellings. Imaging Data Radiologic Study: Imaging: X-Ray Radiologist's impression: TECHNIQUE: Imaging protocol: Radiologic exam of the chest. Views: 1 view. COMPARISON: XR PORTABLE CHEST AP 06/12/2021 9:01 AM FINDINGS: Lungs: Stable mild left lower lobe linear atelectasis/fibrosis. No airspace disease or lung consolidation. Pleural spaces: Unremarkable. No pleural effusion. No pneumothorax. Heart/Mediastinum: Unremarkable. No cardiomegaly. Bones/joints: Unremarkable. IMPRESSION: No acute cardiopulmonary findings. Thank you for allowing us to participate in the care of your patient. Dictated and Authenticated by: Danny Urrutia MD [facility] General Mode of arrival: ambulatory . Date/Time Provider Initiated Documentation: 05/21/22 09:50 . Limitations to Documentation: no limitations . Information obtained by: patient, RN notes reviewed and old records reviewed . HPI Narrative: 62-year-old female presents to the ER with approximately 4 weeks of cough congestion body aches. She also endorses some left ear pain. She was seen at urgent care approximately 2 weeks ago and was prescribed doxycycline which she reports she took 1 tablet and began throwing up. She is a former smoker. Upon initial presentation she does have some expiratory wheezes scattered, retracted left tympanic membrane and fluid behind her right tympanic membrane. She did have a negative COVID swab at urgent care. Past medical history includes obesity, coronary artery sclerosis, sleep apnea. Related Data Home Medications Medication Instructions Recorded Confirmed citalopram 10 mg tablet (Celexa) 20 mg PO DAILY 10/08/13 05/21/22 meclizine 12.5 mg tablet 25 mg PO TID PRN 10/08/05/21/22 rosuvastatin 20 mg tablet (Crestor) 40 mg PO DAILY 10/08/13 05/21/22 epinephrine 0.3 mg/0.3 mL 0.3 mg (0.3 mL) IJ PRN PRN 07/21/16 05/21/22 injection, auto-injector Anaphylaxis ##1 acyclovir 200 mg capsule 200 mg PO DIRECTED PRN 06/01/17 05/21/22 cetirizine 10 mg tablet 10 mg PO DAILY 12/20/18 05/21/22 sennosides 8.6 mg tablet (senna) 8.6 mg PO DAILY 03/22/20 05/21/22 acetaminophen 500 mg capsule 500 mg PO Q4H PRN pain #30 caps 08/11/20 05/21/22 celecoxib 100 mg capsule (Celebrex) 100 mg PO BID 11/15/20 05/21/22 levothyroxine 75 mcg tablet 100 mcg PO DAILY 11/15/20 05/21/22 topiramate 50 mg tablet 75 mg PO HS 03/29/21 05/21/22 clindamycin HCl 150 mg capsule 150 mg PO PRN 06/01/21 05/21/22 ezetimibe 10 mg tablet 10 mg PO DAILY 06/12/21 05/21/22 aspirin 81 mg tablet,delayed 81 mg PO DAILY 12/22/21 05/21/22 release diltiazem HCl 120 mg 120 mg PO DAILY 01/13/22 05/21/22 capsule,extended release 24 hr, controlled azithromycin 250 mg tablet See Rx Instructions PO .COMPLEX 6 05/21/22 days #6 tabs prednisone 20 mg tablet 60 mg PO DAILY 5 days #15 tabs 05/21/22 Previous Rx's Medication Instructions Recorded epinephrine 0.3 mg/0.3 mL 0.3 mg (0.3 mL) IJ PRN PRN 07/21/16 injection, auto-injector Anaphylaxis ##1 acetaminophen 500 mg capsule 500 mg PO Q4H PRN pain #30 caps 08/11/20 azithromycin 250 mg tablet See Rx Instructions PO .COMPLEX 6 05/21/22 days #6 tabs prednisone 20 mg tablet 60 mg PO DAILY 5 days #15 tabs 05/21/22 Allergies Allergy/AdvReac Type Severity Reaction Status Date / Time tetrabenazine Allergy Severe RASH,HIVES Verified 05/21/22 09:49 amoxicillin Allergy Intermediate Skin Rash Verified 05/21/22 09:49 hydrocodone [From Vicodin] Allergy Intermediate PRURITIS Verified 05/21/22 09:49 morphine Allergy Intermediate ITCHY, SICK Verified 05/21/22 09:49 peanut Allergy Intermediate Anaphylaxsi Verified 05/21/22 09:49 s tree nut Allergy Intermediate Anaphylaxsi Verified 05/21/22 09:49 s adhesive AdvReac Intermediate RASH AND Verified 05/21/22 09:49 SWELLING alcohol AdvReac Intermediate RASH Verified 05/21/22 09:49 [From Mastisol Liquid Adhesive] gum mastic AdvReac Intermediate RASH Verified 05/21/22 09:49 [From Mastisol Liquid Adhesive] methyl salicylate AdvReac Intermediate RASH Verified 05/21/22 09:49 [From Mastisol Liquid Adhesive] storax AdvReac Intermediate RASH Verified 05/21/22 09:49 [From Mastisol Liquid Adhesive] benzoin AdvReac Mild Skin Rash Verified 05/21/22 09:49 cat dander AdvReac Mild WATERY EYES Verified 05/21/22 09:49 milk AdvReac Unknown Verified 05/21/22 09:49 pollen extracts AdvReac Unknown watery eyes Verified 05/21/22 09:49 dog dander AdvReac WATERY EYES Verified 05/21/22 09:49 RAW FRUIT Allergy Unknown Uncoded 05/21/22 09:49 DUST AdvReac Unknown Uncoded 05/21/22 09:49 General Stated Complaint: GenMedical MANNIE: 4 Review of Systems All systems reviewed & are unremarkable except as noted in HPI and below Respiratory Respiratory: Reports chest congestion, Reports cough and Reports wheezing Allergic/Immunologic Allergic/Immunologic: Reports wheezing PFSH All Active Problems (Updated 05/21/22 @ 10:58 by Sveta Willams NP) Bronchitis, acute (Acute) Actinic keratoses (Acute) Seborrheic keratoses, inflamed (Acute) Atypical nevus (Acute) Lipoma of arm (Acute) Mild intermittent asthma without complication (Acute 11/08/15) Coronary arteriosclerosis (Acute) Medical History Arthritis of left acromioclavicular joint s/p distal clavicle excision, 04/28/20 Asthma Atypical chest pain Pt. states They don't know what it is, Dr. Oglesby thinks its just muscular, and not cardiac related Bursitis of left shoulder Chronic back pain Chronic constipation Colicky RUQ abdominal pain Complete tear of right rotator cuff (12/03/17) COVID-19 De Quervain's tenosynovitis, left Depression Elevated cholesterol Fatigue GERD (gastroesophageal reflux disease) pt. denies this HTN (hypertension) Hypothyroidism Impingement syndrome of left shoulder Insomnia Left wrist pain Migraines Normal colonoscopy (~01/13/22) MOISES (obstructive sleep apnea) Overactive bladder Rectal bleed Rectal bleeding Screening for colon cancer Seborrheic keratosis (12/15/16) upper back of left arm Skin lesion SVT (supraventricular tachycardia) Tendonitis of left rotator cuff Injection: 08/04/2019 Trochanteric bursitis of right hip Trochanteric bursitis, left hip S/P ITB tenotomy and bursal debridement DOS: 12/24/18 Dr. 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 Perez History of cardiac cath Non-obstructive CAD, Elevated LV end diastolic pressure. no stents History of colonoscopy (~01/13/22) Hx of breast biopsy Left carpal tunnel syndrome S/P ECTR: 03/23/2020 Left rotator cuff tear s/p arthroscopic rotator cuff repair 04/28/20 s/p arthroscopic revision rotator cuff repair: 08/11/2020 Oophrectomy, Left with hyst , Ectopic (~1983) Right carpal tunnel syndrome S/P ECTR: 03/23/2020 Status post right rotator cuff repair Right repeat rotator cuff repair, also has had left RTC repaired. Date of surgery: 04/16/18 Dr. Perez Family History Mother Essential hypertension Spinal stenosis Stroke Atrial fibrillation Father Essential hypertension Heart disease Myocardial infarction Brother Atrial fibrillation Essential hypertension Prostate cancer Social History Smoking/Tobacco Use Status: Former Tobacco Use Quit Date: 09/17/84 Pack-years: 12 Smoking risk assessment performed?: Yes Alcohol Intake: never Drug use: Never Substance use type: does not use Household members: significant other Number of Children: 1 Current gender identity: female Seatbelt use: sometimes Do you feel safe at home: Yes Do you feel safe in your relationship?: Yes Additional Social history: Quit smoking 1984 Exam Narrative Exam Narrative: Constitutional: Alert and oriented x3. Appears stated age. Normal body habitus. Head: Normocephalic, no trauma. Eyes: Pupils PERRL, Red reflex noted, EOM's intact. Eyelids symmetrical without lesions, discharge, or swelling. ENT: Bilateral TM's WNL, External ear normal to inspection, no mastoid TTP, swelling, or erythema, Nasal turbinates WNL, no nasal discharge. Normal dentition, Posterior pharynx WNL, no exudate. Chest: RRR, Normal S1, S2, distal pulses intact. Resp: Scattered expiratory wheezes bilaterally Abdomen: Soft, non-distended, Normoactive bowel sounds all 4 quads. Musculoskeletal: Normal gait, 5/5 strength to all four extremities. Skin: No suspicious rashes or lesions. Capillary refill less than 2 sec. Neurologic: Cranial nerves II-XII intact. Alert and oriented x 3. Motor: No deficits noted. Sensory: Intact bilaterally all 4 extremities. Reflexes: DTR's intact bilaterally.. Hematologic/Lymphatic: No ecchymosis, no lymphadenopathy. Course Vital Signs Vital signs: Vital Signs Temperature 37.3 C 05/21/22 09:44 Pulse 76 05/21/22 09:44 Respiratory Rate 16 05/21/22 09:44 Blood Pressure 137/95 H 05/21/22 09:44 Pulse Oximetry 95 05/21/22 09:44 Temperature 37.3 C 05/21/22 09:44 Pulse 76 05/21/22 09:44 Respiratory Rate 16 05/21/22 09:44 Respiratory Effort Non-Labored 05/21/22 09:52 Respiratory Depth Normal 05/21/22 09:52 Respiratory Pattern Normal 05/21/22 09:52 Blood Pressure 137/95 H 05/21/22 09:44 Blood Pressure Position Sitting 05/21/22 09:44 Pulse Oximetry 95 05/21/22 09:44 Oxygen Delivery Method Room Air 05/21/22 09:44 Oxygen Flow Rate 0 05/21/22 09:44 Pain Level 7 05/21/22 09:44 Comment 05/21/22 09:44
[2022-05-21] MEDS: predniSONE 20 MG TAB 40 MG PO (10:35)
[2022-05-21] MEDS: Albuterol HFA 8 GM 60 PUFF INH IH (10:35)
--- NOTE | 2022-05-21 10:43 | DI.VRAD_ITS ---
PROCEDURE INFORMATION: Exam: XR Chest Exam date and time: 05/21/2022 10:15 AM Age: 62 years old Clinical indication: Other: Cough, congestion TECHNIQUE: Imaging protocol: Radiologic exam of the chest. Views: 1 view. COMPARISON: XR PORTABLE CHEST AP 06/12/2021 9:01 AM FINDINGS: Lungs: Stable mild left lower lobe linear atelectasis/fibrosis. No airspace disease or lung consolidation. Pleural spaces: Unremarkable. No pleural effusion. No pneumothorax. Heart/Mediastinum: Unremarkable. No cardiomegaly. Bones/joints: Unremarkable. IMPRESSION: No acute cardiopulmonary findings. Dictated and Authenticated by: Danny Urrutia MD. Ordering:JOHNNIE Bangura MD
== END 2022-05-21 11:15 | disposition home or self-care (01) ==
PROVIDERS: Emergency Provider Registered Nurse Emergency; PCP Internal Medicine
DX: J20.9 Acute bronchitis, unspecified (principal); I10 Essential (primary) hypertension; Z87.891 Personal history of nicotine dependence
CPT/HCPCS: 94640; 99283; 71045; 99284; J7512

== ENCOUNTER 2022-06-29 02:42 | Outpatient (CLI) | payer MEDICAID, SELFPAY ==
[2022-06-29 11:29] LABS: TSH 4.16 uIU/mL (0.36-3.74)
[2022-06-29 12:41] LABS: Anion Gap 9.8 mmol/L (3-11); BUN 13 mg/dL (7-18); CO2 27.2 mmol/L (21.0-32.0); CREATININE 0.9 mg/dL (0.55-1.02); Calcium 9.6 mg/dL (8.5-10.1); Calculated LDL 95 mg/dL (<100); Chloride 105 mmol/L (98-107); Cholesterol 175 mg/dL (<200); Estimated GFR 72.28 (mL/min/1.73m2); Glucose 104 mg/dL (74-106); HDL Cholesterol 47 mg/dL (40-60); Potassium 4.1 mmol/L (3.5-5.1); Sodium 142 mmol/L (136-145); Triglyceride 168 mg/dL (<150)
== END 2022-06-29 02:43 | disposition home or self-care (01) ==
LOC: LBO 02:42
PROVIDERS: PCP Internal Medicine; Visit Provider Internal Medicine
DX: E03.9 Hypothyroidism, unspecified (principal)
CPT/HCPCS: 36415; 80048; 80061; 83036; 84443

== ENCOUNTER → 2022-08-11 00:09 | Outpatient (CLI) | payer MEDICAID, SELFPAY ==
--- NOTE | 2022-08-11 08:20 | DI.MRI_ITS ---
Exam(s) MR UPPER JOINT LT WO CLINICAL HISTORY: traumatic weakness S46.012A STRAIN OF MUSCLE OR TENDON LEFT ROTATOR CUFF. TECHNIQUE: Multiplanar multisequence MRI was performed. COMPARISON: None FINDINGS: MR examination of the shoulder was performed according to the usual protocol. There is no significant effusion of the glenohumeral joint. No fluid in the subacromial subdeltoid bu rsa. Bones and labrum: There is a prior rotator cuff repair with 3 suture anchor sites in the humeral head .. Glenoid labrum shows new areas of abnormal signal since prior MR of October 2020, suspect labral tearing and/or fraying particularly involving anterior and superior aspects of the labrum period the re appears to be significant irregular cartilage thinning of the humeral head period slight hypertrop hic AC joint changes noted period. Rotator cuff: Supraspinatus, subscapularis, infraspinatus, and teres minor muscles and tendons show mildly abnormal signal, intact presumed rotator cuff repair with thinning of the supraspinatus tendon . No gross full-thickness tear or retraction seen although minimal intra substance or surface tearin g may be present in the supraspinatus .. Rotator interval structures are unremarkable with no evidence of a tear. Biceps tendon and anchor: Biceps tendon and anchor are suboptimally visualized but do not appear to b e torn. Chronic tendinosis of the proximal biceps suspected with mildly abnormal signal noted. Jung ps tendon is normally positioned in the bicipital groove. IMPRESSION: Moderate degenerative changes of the glenohumeral joint with labral fraying and or tear anteriorly an d superiorly as described above. Apparently intact rotator cuff repair, however there is significant thinning of the repaired supraspi natus tendon . DATA REPOSITORY:
== END ==
PROVIDERS: PCP Internal Medicine; Visit Provider Student in an Organized Health Care Education/Training Program
DX: S46.012A Strain of muscle(s) and tendon(s) of the rotator cuff of left shoulder, initial encounter (principal); M19.012 Primary osteoarthritis, left shoulder; Z98.890 Other specified postprocedural states; M75.22 Bicipital tendinitis, left shoulder
CPT/HCPCS: 73221

== ENCOUNTER 2022-09-07 16:39 | Emergency (ER) | payer MEDICAID, SELFPAY ==
[2022-09-07] VITALS (41 sets, daily range): BP systolic 92–178; BP diastolic 57–101; PULSE 67–101; RESP 17; TEMP 36.7; O2SAT 91–99
[2022-09-07 17:24] LABS: Bilirubin Small (Negative); Blood Large (Negative); Clarity Cloudy (Clear); Glucose Negative (Negative); Ketones Trace mg/dL (Negative); Leukocyte Esterase Trace (Negative); Nitrite Positive (Negative); Specific Gravity >= 1.030 (1.005-1.025)
[2022-09-07 17:36] LABS: Bacteria Moderate HPF (Negative); Crystals Negative HPF (Negative); Epithelial Cells Few HPF (Negative); Mucus Negative (Negative); RBC >50 HPF (0-2)
[2022-09-07 17:37] LABS: C & S Indicated? Yes
[2022-09-07] MEDS: ACETAMINOPHEN 1,000 MG/100 ML BTL 400 MG IVPB (17:59)
[2022-09-07] MEDS: Ondansetron 4 MG/2 ML VIAL IVP (18:00)
[2022-09-07 18:22] LABS: Abs Immature Grans 0.04 10^3/uL (0.0-0.06); Absolute Basophil Count 0.12 10^3/uL (0.0-0.2); Absolute Monocyte Count 0.78 10^3/uL (0.1-0.8); Absolute Neutrophil Count 7.53 10^3/uL (1.2-6.7); Eosinophils % 3.4; HCT 44.8 % (36.0-46.0); HGB 15.3 g/dL (11.2-15.7); Immature Grans % 0.3; Lymphocytes % 24.3; MCH 31.1 pg (27.0-33.0); MCHC 34.2 % (32.0-36.0); MCV 91 fL (80-95); Monocytes % 6.7; Neutrophils % 64.3; Platelet Count 249 10^3/uL (130-400); RBC 4.92 10^6/uL (3.93-5.22); RDW-SD 43.8 fL; WBC 11.71 10^3/uL (4.4-10.8)
--- NOTE | 2022-09-07 18:25 | DI.CT_ITS ---
Exam(s) CT RENAL COLIC WO EXAM: CT RENAL COLIC WO CLINICAL HISTORY: left flank pain. TECHNIQUE: Imaging Protocol: Axial computed tomography images with coronal and sagittal reformatted images were created and reviewed. COMPARISON: CT ABD PELVIS WITH CONTRAST from 09/26/2016 FINDINGS: ABDOMEN: Lung Bases: Normal where visualized. Liver: There is fatty infiltration of the liver. No measurable mass. Gallbladder and biliary tract: Status post cholecystectomy. No significant biliary ductal dilatation . Pancreas: Normal density, no abnormal calcifications or inflammatory process. Spleen: There is a calcified granuloma in the spleen. Kidneys: Normal size, contour and axis.There is a 3 mm stone at the left UVJ causing moderate hydrone phrosis. There are left renal cysts present. Adrenal glands: No mass is seen. Lymph nodes: Within normal limits. Abdominal Aorta: Abdominal portion non-dilated. Atherosclerosis is present. PELVIS: Bladder:Symmetric distention, no gross wall thickening. Bowel: No obstruction or bowel wall thickening. Appendix is unremarkable. There is diverticulosis in the sigmoid colon, but no evidence of acute diverticulitis. Peritoneal cavity: No ascites, collection or mesenteric inflammatory response. No free air. Reproductive organs: Status post hysterectomy. Bones: Within normal limits. Soft Tissues: Within normal limits. IMPRESSION: 3 mm left UVJ stone causing moderate hydronephrosis. RADIATION DOSE DELIVERED: 941.17mGy.cm Total DLP DATA REPOSITORY: All CT scans at this facility are submitted to the National Radiology Data Registry (NRDR) Dose Index Registry (DIR) with the [employer] (A[employer]). RADIATION OPTIMIZATION: All CT scans at this facility use at least one of these dose optimization te chniques: automated exposure control; mA and/or kV adjustment per patient size (includes targeted exa ms where dose is matched to clinical indication); or iterative reconstruction.
[2022-09-07 18:35] LABS: Absolute Lymphocyte Count 2.85 10^3/uL (1.2-3.4)
[2022-09-07 18:36] LABS: ALT 38 U/L (14-59); AST 41 U/L (15-37); Alkaline Phosphatase 149 U/L (46-116); Anion Gap 11.3 mmol/L (3-11); BUN 12 mg/dL (7-18); Bilirubin, Total 0.7 mg/dL (0.2-1.0); CO2 24.7 mmol/L (21.0-32.0); CREATININE 1.1 mg/dL (0.55-1.02); Calcium 9.2 mg/dL (8.5-10.1); Chloride 106 mmol/L (98-107); Diff Comment PLT Morph Reviewed; Estimated GFR 56.81 (mL/min/1.73m2); Glucose 140 mg/dL (74-106); Potassium 3.4 mmol/L (3.5-5.1); RBC Morphology Normal; Sodium 142 mmol/L (136-145); Total Protein 8.1 g/dL (6.4-8.2)
--- NOTE | 2022-09-07 18:49 | DI.VRAD_ITS ---
PROCEDURE INFORMATION: Exam: CT Abdomen And Pelvis Without Contrast Exam date and time: 09/07/2022 6:16 PM Age: 62 years old Clinical indication: Other: Left flank pain; Abdominal pain TECHNIQUE: Imaging protocol: Computed tomography of the abdomen and pelvis without contrast. COMPARISON: CT ABD PELVIS WITH CONTRAST 09/26/2016 8:48 AM FINDINGS: Lungs: There is minimal left lower lobe atelectasis. Liver: Normal. No mass. Gallbladder and bile ducts: Status post cholecystectomy. Pancreas: Normal. No ductal dilation. Spleen: Normal. No splenomegaly. Adrenal glands: Normal. No mass. Kidneys and ureters: Left renal cysts have enlarged since prior study. There is mild left hydronephrosis and hydroureter. There is a distal left ureteral partially obstructing calculus series 2, image 123. Stomach and bowel: Unremarkable. No obstruction. No mucosal thickening. Appendix: No evidence of appendicitis. Intraperitoneal space: Unremarkable. No free air. No significant fluid collection. Vasculature: Mild atherosclerotic change noted in the vasculature. Lymph nodes: Unremarkable. No enlarged lymph nodes. Urinary bladder: Unremarkable as visualized. Reproductive: Status post hysterectomy. Bones/joints: Moderate lumbar spondylosis. Soft tissues: Unremarkable. IMPRESSION: Distal left ureteral partially obstructing calculus. Dictated and Authenticated by: Edna Dior MD. Ordering:JESSE Yeboah MD
--- NOTE | 2022-09-07 18:52 | W.ED.GENAD ---
Discharge Plan Disposition Patient Disposition: Home Condition: Stable Discharge Details Clinical Impression: Calculus of distal left ureter Primary Care Provider: Kerry Ascencio ED Provider: Obinna Krause Home Meds and New Rx's Prescriptions: New tamsulosin [Flomax] 0.4 mg capsule 0.4 mg PO QHS 14 Days Qty: 14 0RF Rx Instructions: You may stop this medication if you passed the kidney stone cephalexin 500 mg tablet 500 mg PO TID 7 Days Qty: 21 0RF Continued celecoxib [Celebrex] 100 mg capsule 100 mg PO BID clindamycin HCl 150 mg capsule 150 mg PO PRN Rx Instructions: prior to dental appt. citalopram [Celexa] 10 MG tablet 20 mg PO DAILY Label Comments: 10 mg tab and 20 mg tab total 30. meclizine 12.5 MG tablet 25 mg PO TID PRN Label Comments: prn rosuvastatin [Crestor] 20 MG tablet 40 mg PO DAILY acyclovir 200 MG capsule 200 mg PO DIRECTED PRN topiramate 50 mg tablet 75 mg PO HS aspirin 81 mg tablet,delayed release (DR/EC) 81 mg PO DAILY levothyroxine 75 mcg tablet 125 mcg PO DAILY epinephrine 0.3 MG/SYR auto-injector 0.3 mg IJ PRN PRN (Reason: Anaphylaxis) Qty: 1 0RF acetaminophen 500 mg capsule 500 mg PO Q4H PRN (Reason: pain) Qty: 30 0RF cetirizine 10 mg Tablet 10 mg PO DAILY sennosides [senna] 8.6 mg Tablet 8.6 mg PO DAILY ezetimibe 10 mg tablet 10 mg PO DAILY Label Comments: TAKE 1 TABLET BY MOUTH EVERY DAY diltiazem HCl 120 mg Capsule,Ext.Rel 24h Degradable 120 mg PO DAILY No Action ondansetron 4 mg tablet,disintegrating 4 mg PO Q6H PRNQty: 20 0RF Discharge Instructions Instructions: Kidney Stones (ED) Additional Instructions: You may continue to take paop-lvb-[id number] pain medication as needed for discomfort. Please continue to stay well-hydrated and take antibiotics in your normal daily meds as prescribed. If you develop any new or significant worsening of symptoms, fever chills, or further concerns return immediately to the emergency department for reassessment otherwise follow-up with urology as directed by their office. Referrals: [facility] [Provider Group] (As directed by their office) Discharge Data Discharge Date/Time-TO BE ENTERED AT DEPARTURE: 09/07/22 21:10 Medical Decision Making Patient presenting to the emergency department for chief complaint of sudden onset of abdominal pain. Patient does state that today she noted some urinary frequency but denies any burning or discomfort with urination. Patient decided to try Monistat due to having potential question of urinary tract infection but this did not help. Patient denies fever chills does state some associated nausea vomiting with severe pain otherwise denies all symptoms. Patient has mild left CVA tenderness and left lower quadrant pain. We will plan on performing radiological imaging for question of renal calculi versus diverticulitis or other intra-abdominal pathology. Patient denies any vaginal symptoms so vaginal exam was deferred. Pending results will give fluids and IV acetaminophen due to patient's multiple allergies. Reviewed patient's labs and patient has slight elevation of WBC at 11.71, neutrophil slightly elevated at 7.53 otherwise unremarkable. Potassium is slightly low at 3.4, anion gap of 11.3, creatinine of 1.1, glucose of 140, AST is 41 and alk phos of 149 otherwise unremarkable remainder labs. Initial urine does show significant amount of blood nitrates leukocyte esterase RBCs and WBCs. We will hold off and continue to evaluate patient pending CT imaging. Review of CT imaging shows there is a distal left ureter calculi that is causing partial obstruction. Reassessed patient and she is improving. At this time I doubt infected stone given sudden onset but will continue to hydrate patient and have reassessment of urinalysis. Repeat urinalysis does show a significantly improved symptoms with patient having blood and only trace amount of leukocyte Estrace present with RBCs attended 20 and same with WBCs. Again I doubt infected renal calculi but will give patient dose of Rocephin out of an abundance of caution and place patient on Keflex. Given that patient is afebrile and again had sudden onset of symptoms I do feel she is safe for discharge. Reassessed patient and she states almost full resolution of pain and discomfort. After discussion of diagnosis and plan of care patient has no further needs, questions, or concerns and states clear understanding to return to the emergency department for any worsening symptoms. This documentation was generated using [employer]alisteration system, please disregard any oddities of phrase or misspellings. Imaging Data Radiologic Study: Imaging: CT Scan Radiologist's impression: Exam(s) PROCEDURE INFORMATION: Exam: CT Abdomen And Pelvis Without Contrast Exam date and time: 09/07/2022 6:16 PM Age: 62 years old Clinical indication: Other: Left flank pain; Abdominal pain TECHNIQUE: Imaging protocol: Computed tomography of the abdomen and pelvis without contrast. COMPARISON: CT ABD PELVIS WITH CONTRAST 09/26/2016 8:48 AM FINDINGS: Lungs: There is minimal left lower lobe atelectasis. Liver: Normal. No mass. Gallbladder and bile ducts: Status post cholecystectomy. Pancreas: Normal. No ductal dilation. Spleen: Normal. No splenomegaly. Adrenal glands: Normal. No mass. Kidneys and ureters: Left renal cysts have enlarged since prior study. There is mild left hydronephrosis and hydroureter. There is a distal left ureteral partially obstructing calculus series 2, image 123. Stomach and bowel: Unremarkable. No obstruction. No mucosal thickening. Appendix: No evidence of appendicitis. Intraperitoneal space: Unremarkable. No free air. No significant fluid collection. Vasculature: Mild atherosclerotic change noted in the vasculature. Lymph nodes: Unremarkable. No enlarged lymph nodes. Urinary bladder: Unremarkable as visualized. Reproductive: Status post hysterectomy. Bones/joints: Moderate lumbar spondylosis. Soft tissues: Unremarkable. IMPRESSION: Distal left ureteral partially obstructing calculus. HPI General Mode of arrival: ambulatory. Date/Time Provider Initiated Documentation: 09/07/22 16:53. Limitations to Documentation: no limitations. Information obtained by: patient and RN notes reviewed. History of Present Illness 62 year old F presents to the emergency department with the chief complaint of llq pain , described as moderate and severe, with intensity rated at 8. Quality is described as sharp, and is localized to the abdomen. Patient reports radiation to back. Patient started experiencing this hour(s) (2) and it has been constant. No relieving factors improve symptom(s), No exacerbating factors reported . Patient notes no other symptoms.. Patient did receive the following treatments prior to arrival, none Related Data Home Medications Medication Instructions Recorded Confirmed citalopram 10 mg tablet (Celexa) 20 mg PO DAILY 10/08/13 09/07/22 meclizine 12.5 mg tablet 25 mg PO TID PRN 10/08/13 09/07/22 rosuvastatin 20 mg tablet (Crestor) 40 mg PO DAILY 10/08/13 09/07/22 epinephrine 0.3 mg/0.3 mL 0.3 mg (0.3 mL) IJ PRN PRN 07/21/16 09/07/22 injection, auto-injector Anaphylaxis ##1 acyclovir 200 mg capsule 200 mg PO DIRECTED PRN 06/01/17 09/07/22 cetirizine 10 mg tablet 10 mg PO DAILY 12/20/18 09/07/22 sennosides 8.6 mg tablet (senna) 8.6 mg PO DAILY 03/22/20 09/07/22 acetaminophen 500 mg capsule 500 mg PO Q4H PRN pain #30 caps 08/11/20 09/07/22 celecoxib 100 mg capsule (Celebrex) 100 mg PO BID 11/15/20 09/07/22 topiramate 50 mg tablet 75 mg PO HS 03/29/21 09/07/22 clindamycin HCl 150 mg capsule 150 mg PO PRN 06/01/21 09/07/22 ezetimibe 10 mg tablet 10 mg PO DAILY 06/12/21 09/07/22 aspirin 81 mg tablet,delayed 81 mg PO DAILY 12/22/21 09/07/22 release diltiazem HCl 120 mg 120 mg PO DAILY 01/13/22 09/07/22 capsule,extended release 24 hr, controlled levothyroxine 75 mcg tablet 125 mcg PO DAILY 07/05/22 09/07/22 cephalexin 500 mg tablet 500 mg PO TID 7 days #21 tabs 09/07/22 tamsulosin 0.4 mg capsule (Flomax) 0.4 mg PO QHS 14 days #14 caps 09/07/22 ondansetron 4 mg disintegrating 4 mg PO Q6H PRN #20 tabs 09/09/22 tablet Previous Rx's Medication Instructions Recorded epinephrine 0.3 mg/0.3 mL 0.3 mg (0.3 mL) IJ PRN PRN 07/21/16 injection, auto-injector Anaphylaxis ##1 acetaminophen 500 mg capsule 500 mg PO Q4H PRN pain #30 caps 08/11/20 cephalexin 500 mg tablet 500 mg PO TID 7 days #21 tabs 09/07/22 tamsulosin 0.4 mg capsule (Flomax) 0.4 mg PO QHS 14 days #14 caps 09/07/22 ondansetron 4 mg disintegrating 4 mg PO Q6H PRN #20 tabs 09/09/22 tablet Allergies Allergy/AdvReac Type Severity Reaction Status Date / Time tetrabenazine Allergy Severe RASH,HIVES Verified 09/07/22 16:54 amoxicillin Allergy Intermediate Skin Rash Verified 09/07/22 16:54 hydrocodone [From Vicodin] Allergy Intermediate PRURITIS Verified 09/07/22 16:54 morphine Allergy Intermediate ITCHY, SICK Verified 09/07/22 16:54 peanut Allergy Intermediate Anaphylaxsi Verified 09/07/22 16:54 s tree nut Allergy Intermediate Anaphylaxsi Verified 09/07/22 16:54 s adhesive AdvReac Intermediate RASH AND Verified 09/07/22 16:54 SWELLING alcohol AdvReac Intermediate RASH Verified 09/07/22 16:54 [From Mastisol Liquid Adhesive] gum mastic AdvReac Intermediate RASH Verified 09/07/22 16:54 [From Mastisol Liquid Adhesive] methyl salicylate AdvReac Intermediate RASH Verified 09/07/22 16:54 [From Mastisol Liquid Adhesive] storax AdvReac Intermediate RASH Verified 09/07/22 16:54 [From Mastisol Liquid Adhesive] benzoin AdvReac Mild Skin Rash Verified 09/07/22 16:54 cat dander AdvReac Mild WATERY EYES Verified 09/07/22 16:54 milk AdvReac Unknown Verified 09/07/22 16:54 pollen extracts AdvReac Unknown watery eyes Verified 09/07/22 16:54 dog dander AdvReac WATERY EYES Verified 09/07/22 16:54 RAW FRUIT Allergy Unknown Uncoded 09/07/22 16:54 DUST AdvReac Unknown Uncoded 09/07/22 16:54 General Stated Complaint: Abd Prob MANNIE: 3 Review of Systems Constitutional Constitutional: Denies chills, Denies fever(s), Denies headache(s), Denies malaise and Denies poor appetite ENT Ears, Nose, Mouth, and Throat: Denies headache(s) Cardiovascular Cardiovascular: Denies chest pain and Denies dyspnea Respiratory Respiratory: Denies cough and Denies dyspnea Gastrointestinal Gastrointestinal: Reports abdominal pain, Denies diarrhea, Reports nausea and Reports vomiting Genitourinary Genitourinary: Reports hematuria, Denies genital pruritis, Denies dysuria, Reports pelvic pain, Reports flank pain, Denies urinary incontinence, Denies urinary hesitancy, Reports urinary urgency and Denies vaginal discharge Musculoskeletal Musculoskeletal: Reports back pain Integumentary/Breasts Skin/Breast: Denies rash Neurologic Neurologic: Denies headache(s) PFSH All Active Problems (Updated 09/09/22 @ 05:37 by Bryce Hill DO) Calculus of distal left ureter (Acute) Kidney stone on left side (Acute) Traumatic tear of left rotator cuff (Acute ~03/2022) Bronchitis, acute (Acute) Actinic keratoses (Acute) Seborrheic keratoses, inflamed (Acute) Atypical nevus (Acute) Lipoma of arm (Acute) Mild intermittent asthma without complication (Acute 11/08/15) Coronary arteriosclerosis (Acute) Medical History Arthritis of left acromioclavicular joint s/p distal clavicle excision, 04/28/20 Asthma Atypical chest pain Pt. states They don't know what it is, Dr. Oglesby thinks its just muscular, and not cardiac related Bursitis of left shoulder Chronic back pain Chronic constipation Colicky RUQ abdominal pain Complete tear of right rotator cuff (12/03/17) COVID-19 De Quervain's tenosynovitis, left Depression Elevated cholesterol Fatigue GERD (gastroesophageal reflux disease) pt. denies this HTN (hypertension) Hypothyroidism Impingement syndrome of left shoulder Insomnia Left wrist pain Migraines Normal colonoscopy (~01/13/22) MOISES (obstructive sleep apnea) Overactive bladder Rectal bleed Rectal bleeding Screening for colon cancer Seborrheic keratosis (12/15/16) upper back of left arm Skin lesion SVT (supraventricular tachycardia) Tendonitis of left rotator cuff Injection: 08/04/2019 Trochanteric bursitis of right hip Trochanteric bursitis, left hip S/P ITB tenotomy and bursal debridement DOS: 12/24/18 Dr. 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 Perez History of cardiac cath Non-obstructive CAD, Elevated LV end diastolic pressure. no stents History of colonoscopy (~01/13/22) Hx of breast biopsy Left carpal tunnel syndrome S/P ECTR: 03/23/2020 Left rotator cuff tear s/p arthroscopic rotator cuff repair 04/28/20 s/p arthroscopic revision rotator cuff repair: 08/11/2020 Oophrectomy, Left with hyst , Ectopic (~1983) Right carpal tunnel syndrome S/P ECTR: 03/23/2020 Status post right rotator cuff repair Right repeat rotator cuff repair, also has had left RTC repaired. Date of surgery: 04/16/18 Dr. Perez Family History Mother Essential hypertension Spinal stenosis Stroke Atrial fibrillation Father Essential hypertension Heart disease Myocardial infarction Brother Atrial fibrillation Essential hypertension Prostate cancer Social History Smoking/Tobacco Use Status: Former Tobacco Use Quit Date: 09/17/84 Pack-years: 12 Smoking risk assessment performed?: Yes Alcohol Intake: never Drug use: Never Substance use type: does not use Household members: significant other Number of Children: 1 Current gender identity: female Seatbelt use: sometimes Do you feel safe at home: Yes Do you feel safe in your relationship?: Yes Additional Social history: Quit smoking 1984 Exam Const General: cooperative Orientation: alert, awake and oriented x3 Resp Effort & Inspection: normal respiratory effort and able to speak in complete sentences Auscultation: clear to auscultation bilaterally Cardio Rate: regular rate Rhythm: regular rhythm Heart Sounds: S1 normal and S2 normal GI Palpation: soft, no hepatosplenomegaly, not firm, no guarding, no masses, no pulsatile masses, not rigid, no splenomegaly and tender in the LLQ; not at McBurney's point, Mcdonald's sign negative and Rovsing's sign negative Auscultation: normal bowel sounds General: CVA tenderness on the left Back/Spine/Pelvis Back: CVA tenderness Neuro General: patient alert, patient awake, patient oriented x3, gait normal and moves all extremities Course Vital Signs Vital signs: Vital Signs Temperature 36.7 C 09/07/22 16:49 Pulse 79 09/07/22 16:49 Respiratory Rate 17 09/07/22 16:49 Blood Pressure 166/101 H 09/07/22 16:49 Pulse Oximetry 98 09/07/22 16:49 Temperature 36.7 C 09/07/22 16:49 Temperature Source Temporal Artery Scan 09/07/22 16:49 Pulse 79 09/07/22 16:49 Respiratory Rate 17 09/07/22 16:49 Respiratory Effort Non-Labored 09/07/22 16:53 Blood Pressure 166/101 H 09/07/22 16:49 Blood Pressure Position Sitting 09/07/22 16:49 Pulse Oximetry 98 09/07/22 16:49 Oxygen Delivery Method Room Air 09/07/22 16:49 Oxygen Flow Rate 0 09/07/22 16:49 Pain Level 10 09/07/22 16:49 Lab/Test Results Lab/Test Results: 09/07/22 17:20 Urine - Reflex from Ua Urine Culture - Pending Laboratory Tests Range/Units 09/07/22 09/07/22 09/07/22 17:00 17:00 17:20 WBC (4.4-10.8) 10^3/uL 11.71 H RBC (3.93-5.22) 10^6/uL 4.92 Hgb (11.2-15.7) g/dL 15.3 Hct (36.0-46.0) % 44.8 MCV (80-95) fL 91 MCH (27.0-33.0) pg 31.1 MCHC (32.0-36.0) % 34.2 RDW (11.7-14.6) % 13.0 Plt Count (130-400) 10^3/uL 249 MPV (8.0-11.0) fL Immature Gran % 0.3 Neutrophils % 64.3 Lymphocytes % 24.3 Monocytes % 6.7 Eosinophils % 3.4 Basophils % 1.0 Nucleated RBC % (0.0-0.3) % 0.0 Absolute Neutrophils (1.2-6.7) 10^3/uL 7.53 H Absolute Lymphocytes (1.2-3.4) 10^3/uL 2.85 Absolute Monocytes (0.1-0.8) 10^3/uL 0.78 Absolute Eosinophils (0.0-0.7) 10^3/uL 0.40 Absolute Basophils (0.0-0.2) 10^3/uL 0.12 RBC Morphology Normal Sodium (136-145) mmol/L 142 Potassium (3.5-5.1) mmol/L 3.4 L Chloride (98-107) mmol/L 106 Carbon Dioxide (21.0-32.0) mmol/L 24.7 Anion Gap (3-11) mmol/L 11.3 H BUN (7-18) mg/dL 12 Creatinine (0.55-1.02) mg/dL 1.1 H Est GFR (CKD-EPI 2020) (mL/min/1.73m2) 56.81 Glucose (74-106) mg/dL 140 H Calcium (8.5-10.1) mg/dL 9.2 Total Bilirubin (0.2-1.0) mg/dL 0.7 AST (15-37) U/L 41 H ALT (14-59) U/L 38 Alkaline Phosphatase (46-116) U/L 149 H Total Protein (6.4-8.2) g/dL 8.1 Albumin (3.4-5.0) g/dL 4.0 Urine Color (Yellow) Brown Urine Clarity (Clear) Cloudy Urine pH (5-8) 7.0 Ur Specific [place] (1.005-1.025) >= 1.030 H Urine Protein (Negative) mg/dL 100 H Urine Ketones (Negative) mg/dL Trace H Urine Blood (Negative) Large H Urine Nitrite (Negative) Positive H Urine Bilirubin (Negative) Small H Urine Urobilinogen (Up TO 0.2) EU/dL 2.0 H Ur Leukocyte Esterase (Negative) Trace H Urine RBC (0-2) HPF >50 H Urine WBC (0-5) HPF 10-20 H Ur Epithelial Cells (Negative) HPF Few Urine Crystals (Negative) HPF Negative Urine Bacteria (Negative) HPF Moderate Urine Casts (Negative) LPF 5-10 RBC Urine Mucus (Negative) Negative Ur Culture Indicated? Yes Urine Glucose (Negative) mg/dL Negative
[2022-09-07] MEDS: Normal Saline 500 ML IV (19:17)
[2022-09-07 19:41] LABS: Bilirubin Negative (Negative); Blood Large (Negative); Clarity Clear (Clear); Glucose Negative (Negative); Ketones Negative (Negative); Leukocyte Esterase Trace (Negative); Nitrite Negative (Negative); Specific Gravity 1.015 (1.005-1.025); pH 6.5 (5-8)
[2022-09-07 19:52] LABS: Bacteria Few HPF (Negative); C & S Indicated? Yes; Casts Negative LPF (Negative); Crystals Negative HPF (Negative); Epithelial Cells Rare HPF (Negative); Mucus Negative (Negative)
[2022-09-07] MEDS: cefTRIAXone 1 GM/50 ML BAG IVPB (20:28)
[2022-09-07] MEDS: Tamsulosin 0.4 MG CAPCR PO (20:31)
[2022-09-07] MEDS: Ondansetron O.D.T. 4 MG TABEF, 3 TABS/BTL PO (20:31)
== END 2022-09-07 21:10 | disposition home or self-care (01) ==
PROVIDERS: Emergency Provider Nurse Practitioner Family; PCP Internal Medicine
DX: N13.2 Hydronephrosis with renal and ureteral calculous obstruction (principal); D72.829 Elevated white blood cell count, unspecified; E87.6 Hypokalemia; J45.909 Unspecified asthma, uncomplicated; I10 Essential (primary) hypertension; Z86.16 Personal history of COVID-19
CPT/HCPCS: 80053; 96361; 96365; 96375; 99284; 74176; 81003; 81015; 85025; 87086; J0131; J0696; J2405

== ENCOUNTER 2022-09-09 03:56 | Emergency (ER) | payer MEDICAID, SELFPAY ==
[2022-09-09 04:00] VITALS: BP 151/99; PULSE 91; RESP 18; TEMP 36.7; O2SAT 95
--- NOTE | 2022-09-09 04:00 | DI.CT_ITS ---
Exam(s) CT RENAL COLIC WO EXAM: CT RENAL COLIC WO CLINICAL HISTORY: Persistent left kidney stone pain. TECHNIQUE: Imaging Protocol: Axial computed tomography images with coronal and sagittal reformatted images were created and reviewed CONTRAST MATERIAL: Intravenous: none Oral: None COMPARISON: CT ABD PELVIS WITH CONTRAST from 07/21/[address] RENAL COLIC WO from 09/07/2022 FINDINGS: VISUALIZED LUNG BASES: No nodules nor pleural effusions evident. ABDOMEN: There is no ascites. LIVER: Hepatic steatosis again noted. No discrete focal hepatic lesions. GALLBLADDER/BILIARY: The gallbladder is again noted be surgically absent. The CBD is not dilated. PANCREAS: No evidence of pancreatic mass nor dilatation of the pancreatic duct. SPLEEN: Spleen is not enlarged. No obvious intrasplenic lesions. Solitary tiny 1 millimeter calcifi ed granuloma noted in the spleen. ADRENALS: There are no significant adrenal masses. KIDNEYS:Right kidney unremarkable. No dilatation of the right collecting system. There is mild left hydronephrosis and hydroureter again noted due to the previously described small 2-3 millimeter calc ulus at the left ureteropelvic junction. This small calculus has not yet progressed into the bladder lumen and remains in identical position to the study of 2 days ago. There is mild bladder wall cira a at this level evident. The amount of dilatation left collecting system is unchanged. There is aga in noted a large parapelvic cyst in the left kidney which measures 4.5 x 3.8 x 4 cm.. ABDOMINAL AORTA: Abdominal aorta is not enlarged. LYMPH NODES: There is no retroperitoneal nor paraaortic adenopathy. ABDOMINAL WALL: No evidence of significant anterior abdominal wall nor inguinal hernia. GI: There is no evidence of bowel obstruction, free air, nor abscess. PELVIS: LYMPH NODES: There is no intrapelvic nor inguinal adenopathy. GI: No evidence of appendicitis.No evidence of sigmoid diverticulitis. URINARY BLADDER: Bladder is not distended. 2-3 millimeter calculus at the left ureterovesical juncti on is unchanged in position. REPRODUCTIVE: Uterus is surgically absent. No abnormal adnexal masses. No free fluid. OSSEOUS: No significant osseous lesions. IMPRESSION: 1. The previously described 2-3 millimeter calculus at the left ureterovesical junction seen on the C T scan 2 days ago remains in same position and has not progressed into the urinary bladder lumen at t his time. There is mild dilatation left collecting system above this level again noted. No other ca lculi seen. 2. In the left kidney there is again noted a 4.5 x 3.8 x 4.0 cm hypodensity which is most probably a cyst. This has increased in size from CT scan of July 2016 a can be further studied with ultraso und the previously present cyst which was seen in the anterior cortex of the opposite-right kidney on the contrast infused CT scan of 2015 is difficult to appreciate on this noninfused study. 3. Again noted is evidence of previous hysterectomy and cholecystectomy. There is no evidence of bow el obstruction, free air, nor intra-abdominal abscess. RADIATION DOSE DELIVERED: 850.41mGy.cm Total DLP DATA REPOSITORY: All CT scans at this facility are submitted to the National Radiology Data Registry (NRDR) Dose Index Registry (DIR) with the [employer] ([employer]). RADIATION OPTIMIZATION: All CT scans at this facility use at least one of these dose optimization te chniques: automated exposure control; mA and/or kV adjustment per patient size (includes targeted exa ms where dose is matched to clinical indication); or iterative reconstruction.
--- NOTE | 2022-09-09 04:08 | ED.GENADUL_ITS ---
Discharge Plan Disposition Patient Disposition: Home Condition: Good Discharge Details Clinical Impression: Kidney stone on left side Primary Care Provider: Kerry Ascencio ED Provider: Bryce Hill Home Meds and New Rx's Prescriptions: New ondansetron 4 mg tablet,disintegrating 4 mg PO Q6H PRNQty: 20 0RF No Action celecoxib [Celebrex] 100 mg capsule 100 mg PO BID clindamycin HCl 150 mg capsule 150 mg PO PRN Rx Instructions: prior to dental appt. citalopram [Celexa] 10 MG tablet 20 mg PO DAILY Label Comments: 10 mg tab and 20 mg tab total 30. meclizine 12.5 MG tablet 25 mg PO TID PRN Label Comments: prn rosuvastatin [Crestor] 20 MG tablet 40 mg PO DAILY acyclovir 200 MG capsule 200 mg PO DIRECTED PRN topiramate 50 mg tablet 75 mg PO HS aspirin 81 mg tablet,delayed release (DR/EC) 81 mg PO DAILY levothyroxine 75 mcg tablet 125 mcg PO DAILY epinephrine 0.3 MG/SYR auto-injector 0.3 mg IJ PRN PRN (Reason: Anaphylaxis) Qty: 1 0RF acetaminophen 500 mg capsule 500 mg PO Q4H PRN (Reason: pain) Qty: 30 0RF cetirizine 10 mg Tablet 10 mg PO DAILY sennosides [senna] 8.6 mg Tablet 8.6 mg PO DAILY ezetimibe 10 mg tablet 10 mg PO DAILY Label Comments: TAKE 1 TABLET BY MOUTH EVERY DAY diltiazem HCl 120 mg Capsule,Ext.Rel 24h Degradable 120 mg PO DAILY tamsulosin [Flomax] 0.4 mg capsule 0.4 mg PO QHS 14 Days Qty: 14 0RF Rx Instructions: You may stop this medication if you passed the kidney stone cephalexin 500 mg tablet 500 mg PO TID 7 Days Qty: 21 0RF Discharge Instructions Instructions: Kidney Stones (ED) Additional Instructions: At this time your laboratory work-up is very reassuring. There is no evidence of infection in your urine whatsoever. Your renal function is excellent. Your CAT scan shows a persistence of the 3 mm kidney stone. Please continue to take your home antibiotic, the Flomax, and the oxycodone only as needed for breakthrough pain. You can continue to take Tylenol and Motrin as needed for pain. Please follow-up closely with urology. If you notice any worsening of your symptoms, or any new symptoms such as vomiting, diarrhea, fever, chills, shortness of breath, chest pain, numbness, weakness, or fainting , please return immediately to the emergency department for reevaluation. Please follow up with your primary care provider as soon as possible for reassessment and reevaluation. As always, it was a pleasure participating in your medical care today. Referrals: Nolan Rodriguez MD [ [facility] STAFF PHYSICIAN] - Kerry Ascencio [Primary Care Provider] - Medical Decision Making This is a 62-year-old female with a past medical history of high c holesterol, hypertension, hypothyroidism, cholecystectomy, hysterectomy, recent diagnosis of a left-sided kidney stone 2 days ago, who presents today for left lower quadrant pain. Patient was seen and assessed on 09/07 with a small 3 mm stone at the left UVJ causing moderate hydronephrosis, urinalysis at that time showed concern for potential mild infection. Out of an abundance of precaution patient was given ceftriaxone and a prescription for Keflex. Pain improved at that time, patient was discharged home with outpatient urology follow-up with Dr. Rodriguez. Unfortunately this evening at about 2 AM the patient pain returned. She also noted that she had a mild fever of 99 to 100 ?F at home today. She did take 1 g of Tylenol just prior to arrival here. She admits to persistence of pain in the left lower quadrant. She denies any other complaints at this time. No other modifying factors. Exam demonstrates well-appearing female, mild left lower quadrant tenderness, no flank or CVA tenderness. No guarding or rebound. Symptoms are concerning for continued stone, however with her previous questionable infection I am concerned that she may have worsening infection especially with her fever that she had last night. We will recheck her labs, treat her pain, repeat the imaging for any transition of stone, monitor closely and reassess. 5:44 AM Laboratory work-up is notably unremarkable, no evidence of infection whatsoever on evaluation of the urinalysis, no white count bandemia or left shift, renal function is excellent. Patient feels well. Repeat CAT scan shows no transition or movement of the stone. Remains at the UVJ. With no evidence of infection, no clinical evidence of urosepsis or infected stone, the patient's pain controled, no evidence of worsening renal function, I do feel patient stable for discharge with continued close outpatient follow-up with urology/Dr. Rodriguez. Patient feels comfortable with this. We will give the patient 4 oxycodones for home use, a prescription for continued Zofran and recommend finishing of her antibiotic and Flomax. Discussed red flags which to return. I have extensively reviewed the treatment plan and discharge instructions with the patient and their family. I have addressed all patient concerns at this time. The patient and family was made aware of what symptoms to monitor for that would warrant a return to the emergency department. Discussed the plan with the patient and family, they demonstrate verbal understanding and agreement with our assessment and plan at this time. The documentation in this chart was dictated using [employer] dictation software. Please excuse any dictation errors. FINDINGS: Lungs: No acute infiltrate in either lung base. Liver: Normal. No mass. Gallbladder and bile ducts: Status post cholecystectomy. No biliary tract dilatation. Pancreas: Normal. No ductal dilation. Spleen: Normal. No splenomegaly. Adrenal glands: Normal. No mass. Kidneys and ureters: Normal unenhanced right kidney. Stable left renal cysts. Compared to the prior CT abdomen/pelvis dated 09/07/2022, there has been no interval change in the left hydronephrosis or position of the 2 mm calcified stone in the left UVJ region. Stomach and bowel: Unremarkable. No obstruction. No mucosal thickening. Appendix: Normal appendix. Intraperitoneal space: No free air. No significant fluid collection. Vasculature: Unremarkable. No abdominal aortic aneurysm. Lymph nodes: No enlarged lymph nodes. Urinary bladder: Unremarkable as visualized. Reproductive: Status post hysterectomy. Bones/joints: Spinal degenerative changes. Soft tissues: Unremarkable. IMPRESSION: Compared to the prior CT abdomen/pelvis dated 09/07/2022, there has been no interval change in the left hydronephrosis or position of the 2 mm calcified stone in the left UVJ region. Thank you for allowing us to participate in the care of your patient. Dictated and Authenticated by: Ede Hall MD 09/09/2022 5:14 AM Eastern Time ([place] & [place]) HPI General Date/Time Provider Initiated Documentation: 09/09/22 03:58 . HPI Narrative: This is a 62-year-old female with a past medical history of high cholesterol, hypertension, hypothyroidism, cholecystectomy, hysterectomy, recent diagnosis of a left-sided kidney stone 2 days ago, who presents today for left lower quadrant pain. Patient was seen and assessed on 09/07 with a small 3 mm stone at the left UVJ causing moderate hydronephrosis, urinalysis at that time showed concern for potential mild infection. Out of an abundance of precaution patient was given ceftriaxone and a prescription for Keflex. Pain improved at that time, patient was discharged home with outpatient urology follow-up with Dr. Rodriguez. Unfortunately this evening at about 2 AM the patient pain returned. She also noted that she had a mild fever of 99 to 100 ?F at home today. She did take 1 g of Tylenol just prior to arrival here. She admits to persistence of pain in the left lower quadrant. She denies any other complaints at this time. No other modifying factors. Related Data Home Medications Medication Instructions Recorded Confirmed citalopram 10 mg tablet (Celexa) 20 mg PO DAILY 10/08/13 09/07/22 meclizine 12.5 mg tablet 25 mg PO TID PRN 10/08/13 09/07/22 rosuvastatin 20 mg tablet (Crestor) 40 mg PO DAILY 10/08/13 09/07/22 epinephrine 0.3 mg/0.3 mL 0.3 mg (0.3 mL) IJ PRN PRN 07/21/16 09/07/22 injection, auto-injector Anaphylaxis ##1 acyclovir 200 mg capsule 200 mg PO DIRECTED PRN 06/01/17 09/07/22 cetirizine 10 mg tablet 10 mg PO DAILY 12/20/18 09/07/22 sennosides 8.6 mg tablet (senna) 8.6 mg PO DAILY 03/22/20 09/07/22 acetaminophen 500 mg capsule 500 mg PO Q4H PRN pain #30 caps 08/11/20 09/07/22 celecoxib 100 mg capsule (Celebrex) 100 mg PO BID 11/15/20 09/07/22 topiramate 50 mg tablet 75 mg PO HS 03/29/21 09/07/22 clindamycin HCl 150 mg capsule 150 mg PO PRN 06/01/21 09/07/22 ezetimibe 10 mg tablet 10 mg PO DAILY 06/12/21 09/07/22 aspirin 81 mg tablet,delayed 81 mg PO DAILY 12/22/21 09/07/22 release diltiazem HCl 120 mg 120 mg PO DAILY 01/13/22 09/07/22 capsule,extended release 24 hr, controlled levothyroxine 75 mcg tablet 125 mcg PO DAILY 07/05/22 09/07/22 cephalexin 500 mg tablet 500 mg PO TID 7 days #21 tabs 09/07/22 tamsulosin 0.4 mg capsule (Flomax) 0.4 mg PO QHS 14 days #14 caps 09/07/22 ondansetron 4 mg disintegrating 4 mg PO Q6H PRN #20 tabs 09/09/22 tablet Previous Rx's Medication Instructions Recorded epinephrine 0.3 mg/0.3 mL 0.3 mg (0.3 mL) IJ PRN PRN 07/21/16 injection, auto-injector Anaphylaxis ##1 acetaminophen 500 mg capsule 500 mg PO Q4H PRN pain #30 caps 08/11/20 cephalexin 500 mg tablet 500 mg PO TID 7 days #21 tabs 09/07/22 tamsulosin 0.4 mg capsule (Flomax) 0.4 mg PO QHS 14 days #14 caps 09/07/22 ondansetron 4 mg disintegrating 4 mg PO Q6H PRN #20 tabs 09/09/22 tablet Allergies Allergy/AdvReac Type Severity Reaction Status Date / Time tetrabenazine Allergy Severe RASH,HIVES Verified 09/07/22 16:54 amoxicillin Allergy Intermediate Skin Rash Verified 09/07/22 16:54 hydrocodone [From Vicodin] Allergy Intermediate PRURITIS Verified 09/07/22 16:54 morphine Allergy Intermediate ITCHY, SICK Verified 09/07/22 16:54 peanut Allergy Intermediate Anaphylaxsi Verified 09/07/22 16:54 s tree nut Allergy Intermediate Anaphylaxsi Verified 09/07/22 16:54 s adhesive AdvReac Intermediate RASH AND Verified 09/07/22 16:54 SWELLING alcohol AdvReac Intermediate RASH Verified 09/07/22 16:54 [From Mastisol Liquid Adhesive] gum mastic AdvReac Intermediate RASH Verified 09/07/22 16:54 [From Mastisol Liquid Adhesive] methyl salicylate AdvReac Intermediate RASH Verified 09/07/22 16:54 [From Mastisol Liquid Adhesive] storax AdvReac Intermediate RASH Verified 09/07/22 16:54 [From Mastisol Liquid Adhesive] benzoin AdvReac Mild Skin Rash Verified 09/07/22 16:54 cat dander AdvReac Mild WATERY EYES Verified 09/07/22 16:54 milk AdvReac Unknown Verified 09/07/22 16:54 pollen extracts AdvReac Unknown watery eyes Verified 09/07/22 16:54 dog dander AdvReac WATERY EYES Verified 09/07/22 16:54 RAW FRUIT Allergy Unknown Uncoded 09/07/22 16:54 DUST AdvReac Unknown Uncoded 09/07/22 16:54 General Stated Complaint: Abd Prob MANNIE: 3 Review of Systems All systems reviewed & are unremarkable except as noted in HPI and below PFSH All Active Problems (Updated 09/09/22 @ 05:37 by Bryce Hill DO) Calculus of distal left ureter (Acute) Kidney stone on left side (Acute) Traumatic tear of left rotator cuff (Acute ~03/2022) Bronchitis, acute (Acute) Actinic keratoses (Acute) Seborrheic keratoses, inflamed (Acute) Atypical nevus (Acute) Lipoma of arm (Acute) Mild intermittent asthma without complication (Acute 11/08/15) Coronary arteriosclerosis (Acute) Medical History Arthritis of left acromioclavicular joint s/p distal clavicle excision, 04/28/20 Asthma Atypical chest pain Pt. states They don't know what it is, Dr. Oglesby thinks its just m uscular, and not cardiac related Bursitis of left shoulder Chronic back pain Chronic constipation Colicky RUQ abdominal pain Complete tear of right rotator cuff (12/03/17) COVID-19 De Quervain's tenosynovitis, left Depression Elevated cholesterol Fatigue GERD (gastroesophageal reflux disease) pt. denies this HTN (hypertension) Hypothyroidism Impingement syndrome of left shoulder Insomnia Left wrist pain Migraines Normal colonoscopy (~01/13/22) MOISES (obstructive sleep apnea) Overactive bladder Rectal bleed Rectal bleeding Screening for colon cancer Seborrheic keratosis (12/15/16) upper back of left arm Skin lesion SVT (supraventricular tachycardia) Tendonitis of left rotator cuff Injection: 08/04/2019 Trochanteric bursitis of right hip Trochanteric bursitis, left hip S/P ITB tenotomy and bursal debridement DOS: 12/24/18 Dr. 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 Perez History of cardiac cath Non-obstructive CAD, Elevated LV end diastolic pressure. no stents History of colonoscopy (~01/13/22) Hx of breast biopsy Left carpal tunnel syndrome S/P ECTR: 03/23/2020 Left rotator cuff tear s/p arthroscopic rotator cuff repair 04/28/20 s/p arthroscopic revision rotator cuff repair: 08/11/2020 Oophrectomy, Left with hyst , Ectopic (~1983) Right carpal tunnel syndrome S/P ECTR: 03/23/2020 Status post right rotator cuff repair Right repeat rotator cuff repair, also has had left RTC repaired. Date of surgery: 04/16/18 Dr. Perez Family History Mother Essential hypertension Spinal stenosis Stroke Atrial fibrillation Father Essential hypertension Heart disease Myocardial infarction Brother Atrial fibrillation Essential hypertension Prostate cancer Social History Smoking/Tobacco Use Status: Former Tobacco Use Quit Date: 09/17/84 Pack-years: 12 Smoking risk assessment performed?: Yes Alcohol Intake: never Drug use: Never Substance use type: does not use Household members: significant other Number of Children: 1 Current gender identity: female Seatbelt use: sometimes Do you feel safe at home: Yes Do you feel safe in your relationship?: Yes Additional Social history: Quit smoking 1984 Exam Narrative Exam Narrative: 1.Const: Well-nourished, Well-developed, appearing stated age 2.Eyes: PERRL, no conjunctival injection, and symmetrical lids. 3.ENT: Atraumatic external nose and ears. Moist MM. Neck: Symmetric, trachea midline, No thyromegaly. 4.CVS: +S1/S2, No murmurs or gallops. Peripheral pulses 2+ and equal in all extremities. Brisk capillary refill in all extremities. 5.RESP: Unlabored respiratory effort. Clear to auscultation bilaterally. No wheezes rales or rhonchi 6.GI: Soft, Nontender/Nondistended, No hepatosplenomegaly. No guarding or rebound. Minimal left lower quadrant tenderness, no flank or CVA tenderness. No rebound or guarding. 7.MSK: Normocephalic/Atraumatic, Extremities w/o deformity or ttp No cyanosis or clubbing, Normal movement of all extremities 8.Skin: Warm, Dry. No rashes or lesions. 9.Neuro: site director II-XII grossly intact. Sensation grossly intact, no focal neurologic deficits. 10.Psych: (AAO) x3. Appropriate mood and affect Course Vital Signs Vital signs: Vital Signs Temperature 36.7 C 09/09/22 04:00 Pulse 91 H 09/09/22 04:00 Respiratory Rate 18 09/09/22 04:00 Blood Pressure 151/99 H 09/09/22 04:00 Pulse Oximetry 95 09/09/22 04:00 Temperature 36.7 C 09/09/22 04:00 Pulse 91 H 09/09/22 04:00 Respiratory Rate 18 09/09/22 04:00 Blood Pressure 151/99 H 09/09/22 04:00 Pulse Oximetry 95 09/09/22 04:00 Oxygen Delivery Method Room Air 09/09/22 04:00 Oxygen Flow Rate 0 09/09/22 04:00 Pain Level 5 09/09/22 04:00
[2022-09-09] MEDS: Ketorolac 15 MG/ML VIAL IVP (04:21)
[2022-09-09] MEDS: Normal Saline 500 ML IV (04:21)
[2022-09-09] MEDS: Tamsulosin 0.4 MG CAPCR PO (04:22)
[2022-09-09 04:32] LABS: Bilirubin Negative (Negative); Blood Large (Negative); Clarity Sl Cloudy (Clear); Glucose Negative (Negative); Ketones Negative (Negative); Leukocyte Esterase Negative (Negative); Nitrite Negative (Negative); Specific Gravity >= 1.030 (1.005-1.025); Urobilinogen 0.2 EU/dL (Up TO 0.2); pH 5.5 (5-8)
[2022-09-09 04:47] LABS: Bacteria Rare HPF (Negative); C & S Indicated? No; Casts Negative LPF (Negative); Crystals Negative HPF (Negative); Epithelial Cells Rare HPF (Negative); Mucus Negative (Negative); RBC >50 HPF (0-2); WBC Negative HPF (0-5)
[2022-09-09 04:48] LABS: ALT 28 U/L (14-59); AST 29 U/L (15-37); Albumin 3.3 g/dL (3.4-5.0); Alkaline Phosphatase 119 U/L (46-116); Anion Gap 10.2 mmol/L (3-11); BUN 10 mg/dL (7-18); Bilirubin, Total 0.6 mg/dL (0.2-1.0); CO2 22.8 mmol/L (21.0-32.0); CREATININE 0.8 mg/dL (0.55-1.02); Calcium 8.4 mg/dL (8.5-10.1); Chloride 108 mmol/L (98-107); Estimated GFR 83.26 (mL/min/1.73m2); Glucose 121 mg/dL (74-106); Potassium 3.4 mmol/L (3.5-5.1); Sodium 141 mmol/L (136-145); Total Protein 6.9 g/dL (6.4-8.2)
[2022-09-09 04:50] LABS: Abs Immature Grans 0.01 10^3/uL (0.0-0.06); Absolute Eosinophil Count 0.37 10^3/uL (0.0-0.7); Absolute Lymphocyte Count 2.43 10^3/uL (1.2-3.4); Absolute Monocyte Count 0.56 10^3/uL (0.1-0.8); Absolute Neutrophil Count 3.31 10^3/uL (1.2-6.7); Basophils % 1.5; Eosinophils % 5.5; HCT 40.4 % (36.0-46.0); HGB 13.3 g/dL (11.2-15.7); Immature Grans % 0.1; Lymphocytes % 35.8; MCH 30.8 pg (27.0-33.0); MCHC 32.9 % (32.0-36.0); MCV 94 fL (80-95); MPV 12.4 fL (8.0-11.0); Monocytes % 8.3; Neutrophils % 48.8; Platelet Count 173 10^3/uL (130-400); RBC 4.32 10^6/uL (3.93-5.22); RDW 13.1 % (11.7-14.6); WBC 6.78 10^3/uL (4.4-10.8)
--- NOTE | 2022-09-09 05:21 | DI.VRAD_ITS ---
PROCEDURE INFORMATION: Exam: CT Abdomen And Pelvis Without Contrast Exam date and time: 09/09/2022 4:43 AM Age: 62 years old Clinical indication: Fever; Abdominal pain; Persistent left flank pain - HX left UVJ calcified stone on CT 09/07/2022; Prior surgery; date: 6+ months: Lap portia, tubal TECHNIQUE: Imaging protocol: Computed tomography of the abdomen and pelvis without contrast. Radiation optimization: All CT scans at this facility use at least one of these dose optimization techniques: automated exposure control; mA and/or kV adjustment per patient size (includes targeted exams where dose is matched to clinical indication); or iterative reconstruction. COMPARISON: CT RENAL COLIC WO 09/07/2022 6:16 PM FINDINGS: Lungs: No acute infiltrate in either lung base. Liver: Normal. No mass. Gallbladder and bile ducts: Status post cholecystectomy. No biliary tract dilatation. Pancreas: Normal. No ductal dilation. Spleen: Normal. No splenomegaly. Adrenal glands: Normal. No mass. Kidneys and ureters: Normal unenhanced right kidney. Stable left renal cysts. Compared to the prior CT abdomen/pelvis dated 09/07/2022, there has been no interval change in the left hydronephrosis or position of the 2 mm calcified stone in the left UVJ region. Stomach and bowel: Unremarkable. No obstruction. No mucosal thickening. Appendix: Normal appendix. Intraperitoneal space: No free air. No significant fluid collection. Vasculature: Unremarkable. No abdominal aortic aneurysm. Lymph nodes: No enlarged lymph nodes. Urinary bladder: Unremarkable as visualized. Reproductive: Status post hysterectomy. Bones/joints: Spinal degenerative changes. Soft tissues: Unremarkable. IMPRESSION: Compared to the prior CT abdomen/pelvis dated 09/07/2022, there has been no interval change in the left hydronephrosis or position of the 2 mm calcified stone in the left UVJ region. Dictated and Authenticated by: Ede Hall MD. Ordering:GURWINDER Wu MD
[2022-09-09 05:59] VITALS: BP 145/88; PULSE 88; RESP 18; O2SAT 95
== END 2022-09-09 06:02 | disposition home or self-care (01) ==
PROVIDERS: Emergency Provider Student in an Organized Health Care Education/Training Program; PCP Internal Medicine
DX: N13.2 Hydronephrosis with renal and ureteral calculous obstruction (principal); I10 Essential (primary) hypertension; E03.9 Hypothyroidism, unspecified; J45.909 Unspecified asthma, uncomplicated; Z90.49 Acquired absence of other specified parts of digestive tract; Z90.710 Acquired absence of both cervix and uterus; Z79.82 Long term (current) use of aspirin; Z86.16 Personal history of COVID-19
CPT/HCPCS: 36415; 80053; 96361; 96374; 96375; 99284; 74176; 81003; 81015; 85025; J1885

== ENCOUNTER 2022-10-10 11:19 | Outpatient (REF) | payer MEDICAID, SELFPAY ==
[2022-10-10 12:38] LABS: Sodium, Urine 125 mmol/L
[2022-10-10 12:55] LABS: CLEAVED CELLS 106 mmol/24h (40-220); Creatinine,24hr Ur 0.97 g/24hr (0.60-1.80); Total Volume 850 ml
[2022-10-11 09:26] LABS: Calcium Urine 12.8 mg/dL (See Note); Calcium Urine 24 hr 109 mg/24hrs (100-300); Phosphorus Urine 65.6 mg/dL (See Note); Phosphorus Urine 24hr 0.6 g/24hrs (0.4-1.3); Timed Urine Volume 850 mL; Uric Acid Urine 51.1 mg/dL (See Note); Uric Acid Urine 24hr 434 mg/24hrs (250-750)
[2022-10-11 09:27] LABS: Magnesium 24hr Urine 17.9 mg/24hrs (12.0-192.0); Magnesium Random Urine 2.1 mg/dL (See Note); Timed Urine Volume 850 mL
[2022-10-11 14:10] LABS: Oxalate, U 17.6 mg/24 h (9.7 - 40.5); Urine Volume 850 mL
[2022-10-11 15:11] LABS: Citrate Excretion, 24hr, U 151 mg/24 h; Urine Volume 850 mL
== END 2022-10-10 11:20 | disposition home or self-care (01) ==
LOC: LBN 11:19
PROVIDERS: PCP Internal Medicine; Visit Provider Urology
DX: N20.0 Calculus of kidney (principal)
CPT/HCPCS: 82507; 83735; 81050; 82340; 82570; 83945; 84105; 84300; 84560

== ENCOUNTER 2022-11-06 02:54 | Outpatient (CLI) | payer MEDICAID, SELFPAY ==
[2022-11-06 15:50] LABS: Bilirubin Negative (Negative); Blood Negative (Negative); Clarity Clear (Clear); Glucose Negative (Negative); Ketones Negative (Negative); Leukocyte Esterase Negative (Negative); Nitrite Negative (Negative); Specific Gravity 1.025 (1.005-1.025); Urobilinogen 0.2 mg/dL (Up to 0.2); pH 5.5 (5-8)
[2022-11-06 15:51] LABS: Abs Immature Grans 0.03 10^3/uL (0.0-0.06); Absolute Basophil Count 0.12 10^3/uL (0.0-0.2); Absolute Eosinophil Count 0.35 10^3/uL (0.0-0.7); Absolute Lymphocyte Count 2.85 10^3/uL (1.2-3.4); Absolute Monocyte Count 0.82 10^3/uL (0.1-0.8); Absolute Neutrophil Count 5.28 10^3/uL (1.2-6.7); Basophils % 1.3; Eosinophils % 3.7; HCT 46.1 % (36.0-46.0); Immature Grans % 0.3; Lymphocytes % 30.2; MCH 29.6 pg (27.0-33.0); MCHC 32.5 % (32.0-36.0); MCV 91 fL (80-95); Monocytes % 8.7; Neutrophils % 55.8; Platelet Count 230 10^3/uL (130-400); RBC 5.06 10^6/uL (3.93-5.22); RDW 13.1 % (11.7-14.6); RDW-SD 44.1 fL; WBC 9.45 10^3/uL (4.4-10.8)
[2022-11-06 16:29] LABS: ALT 39 U/L (14-59); AST 36 U/L (15-37); Alkaline Phosphatase 146 U/L (46-116); Anion Gap 10.6 mmol/L (3-11); BUN 14 mg/dL (7-18); Bilirubin, Total 0.8 mg/dL (0.2-1.0); CO2 24.4 mmol/L (21.0-32.0); CREATININE 0.9 mg/dL (0.55-1.02); Calcium 9.6 mg/dL (8.5-10.1); Chloride 107 mmol/L (98-107); Estimated GFR 72.28 (mL/min/1.73m2); Glucose 102 mg/dL (74-106); Potassium 4.3 mmol/L (3.5-5.1); Sodium 142 mmol/L (136-145); TSH 1.67 uIU/mL (0.36-3.74); Total Protein 7.6 g/dL (6.4-8.2)
== END 2022-11-06 02:55 | disposition home or self-care (01) ==
LOC: LBO 02:54
PROVIDERS: PCP Internal Medicine; Visit Provider Internal Medicine
DX: E03.9 Hypothyroidism, unspecified (principal); R82.998 Other abnormal findings in urine; I10 Essential (primary) hypertension
CPT/HCPCS: 36415; 80053; 81003; 84443; 85025

== ENCOUNTER 2023-01-09 15:35 | Observation (INO) | payer MEDICAID, SELFPAY ==
[2023-01-09] VITALS (9 sets, daily range): BP systolic 137–144; BP diastolic 66–88; PULSE 69–77; RESP 16–27; TEMP 36.8–37.2; O2SAT 95–97
--- NOTE | 2023-01-09 15:45 | RT.EKG_ITS ---
APPROVED REPORT Exam: Resting ECG Reason for Exam: dizziness Patient Location: E HR:66 bpm ECG Measurements Heart Rate 66 AXIS FL 172 P 22 QRSd 81 QRS -36 QT 433 T 29 QTc 455 Conclusion Sinus rhythm...normal P axis, V-rate 60- 99 Left axis deviation...QRS axis (-30,-90) Low voltage, precordial leads...precordial leads <1.0mV
--- NOTE | 2023-01-09 15:55 | ED.GENADUL_ITS ---
Discharge Plan Disposition Patient Disposition: Admit to [facility] Discharge Details Chief Complaint: Dizzy/Sync Clinical Impression: Chest pain Admit Date/Time: 01/09/23 19:59 Admit Provider: Glenn Busby Attending Provider: Glenn Busby Primary Care Provider: Kerry Ascencio ED Provider: Obinna Krause Discharge Data Discharge Date/Time-TO BE ENTERED AT DEPARTURE: 01/09/23 20:50 Medical Decision Making Patient presenting to the emergency department for chief complaint of episode of dizziness nausea sweating and tremors that happened about 5 hours prior to arrival. Patient denies any syncopal episode, chest pain, belly pain, focal weakness. During episode patient did have a small snack and sugary drink but stated that this did not fully help symptoms. She does state that she had a headache that started yesterday. She does state some improvement of symptoms by the time she arrived here. She has no history of diabetes, is not on any diabetic medications. Does state recent change in her diltiazem which she takes for migraines, SVT, and hypertension. Physical exam shows no focal neurological findings, normal cardiac exam, very stable labs, and patient is nontoxic or ill in appearance. Patient does have history of SVT, migraines, hypertension, hypothyroidism with surgical history of hysterectomy, cholecystectomy, cardiac catheterization, rotator cuff surgery and other Ortho surgeries. We will plan o n checking EKG, labs and head CT. Please see physician interpretation for full interpretation of EKG but upon my review patient is in sinus rhythm heart rate of 66 with machine read of left axis deviation. Labs reviewed and CBC is nondiagnostic no worrisome findings. D-dimer is below age-adjusted range at 614 with age-adjusted being 620. Of note patient is also not tachycardic not hypoxic and denies any shortness of breath. Did also calculate patient's YEARS algorithm which shows very low likelihood of PE which clinically I also agree with. CMP shows AST of 49, alk phos of 145, initial troponin of 53 and normal TSH. Patient is negative for COVID flu and RSV. CT imaging of head shows no intracranial acute findings. Patient reassessed and states overall improvement of symptoms. Did further discuss patient's SVT history which she stated today's event felt nothing like that. We will continue with repeat troponin and continued monitoring. Second troponin shows result of 50. Patient reassessed and does state some mild chest discomfort now. We will give patient aspirin and recheck EKG. Please see physician interpretation for full interpretation of EKG but upon my review patient has heart rate of 70 with continued left axis deviation otherwise unchanged from previous EKG. Patient heart score is 4-5 given moderate heart score patient is agreeable to admission. Spoke with Dr. Carlson who accepted patient for further observation and stress test. HPI General Mode of arrival: ambulatory . Date/Time Provider Initiated Documentation: 01/09/23 15:44 . Limitations to Documentation: no limitations . Information obtained by: patient and RN notes reviewed . History of Present Illness 62 year old F presents to the emergency department with the chief complaint of Dizziness, diaphoresis, nausea, described as moderate and severe, with intensity rated at 3. Patient started experiencing this hour(s) (5) and it has been constant. No relieving factors improve symptom(s), No exacerbating factors reported . Patient notes headaches. Patient did receive the following treatments prior to arrival, none Related Data Home Medications Medication Instructions Recorded Confirmed citalopram 10 mg tablet (Celexa) 20 mg PO DAILY 10/08/13 01/09/23 meclizine 12.5 mg tablet 25 mg PO TID PRN 10/08/13 01/09/23 rosuvastatin 20 mg tablet (Crestor) 40 mg PO DAILY 10/08/13 01/09/23 epinephrine 0.3 mg/0.3 mL 0.3 mg (0.3 mL) IJ PRN PRN 07/21/16 01/09/23 injection, auto-injector Anaphylaxis ##1 acyclovir 200 mg capsule 200 mg PO DIRECTED PRN 06/01/17 01/09/23 cetirizine 10 mg tablet 10 mg PO DAILY 12/20/18 01/09/23 celecoxib 100 mg capsule (Celebrex) 100 mg PO BID 11/15/20 01/09/23 clindamycin HCl 150 mg capsule 150 mg PO PRN 06/01/21 01/09/23 ezetimibe 10 mg tablet 10 mg PO DAILY 06/12/21 01/09/23 aspirin 81 mg tablet,delayed 81 mg PO DAILY 12/22/21 01/09/23 release levothyroxine 75 mcg tablet 125 mcg PO DAILY 10/19/22 04/25/23 ondansetron 4 mg disintegrating 4 mg PO Q6H PRN #20 tabs 09/09/22 01/09/23 tablet diltiazem HCl 240 mg capsule,24 240 mg PO DAILY 01/09/23 01/09/23 hr,extended release mirabegron 50 mg tablet,extended 50 mg PO DAILY 01/09/23 01/09/23 release 24 hr (Myrbetriq) Previous Rx's Medication Instructions Recorded epinephrine 0.3 mg/0.3 mL 0.3 mg (0.3 mL) IJ PRN PRN 07/21/16 injection, auto-injector Anaphylaxis ##1 ondansetron 4 mg disintegrating 4 mg PO Q6H PRN #20 tabs 09/09/22 tablet Allergies Allergy/AdvReac Type Severity Reaction Status Date / Time tetrabenazine Allergy Severe RASH,HIVES Verified 01/09/23 14:32 amoxicillin Allergy Intermediate Skin Rash Verified 01/09/23 14:32 hydrocodone [From Vicodin] Allergy Intermediate PRURITIS Verified 01/09/23 14:32 morphine Allergy Intermediate ITCHY, SICK Verified 01/09/23 14:32 peanut Allergy Intermediate Anaphylaxsi Verified 01/09/23 14:32 s tree nut Allergy Intermediate Anaphylaxsi Verified 01/09/23 14:32 s adhesive AdvReac Intermediate RASH AND Verified 01/09/23 14:32 SWELLING alcohol AdvReac Intermediate RASH Verified 01/09/23 14:32 [From Mastisol Liquid Adhesive] gum mastic AdvReac Intermediate RASH Verified 01/09/23 14:32 [From Mastisol Liquid Adhesive] methyl salicylate AdvReac Intermediate RASH Verified 01/09/23 14:32 [From Mastisol Liquid Adhesive] storax AdvReac Intermediate RASH Verified 01/09/23 14:32 [From Mastisol Liquid Adhesive] benzoin AdvReac Mild Skin Rash Verified 01/09/23 14:32 cat dander AdvReac Mild WATERY EYES Verified 01/09/23 14:32 milk AdvReac Unknown Verified 01/09/23 14:32 pollen extracts AdvReac Unknown watery eyes Verified 01/09/23 14:32 dog dander AdvReac WATERY EYES Verified 01/09/23 14:32 RAW FRUIT Allergy Unknown Uncoded 01/09/23 14:32 DUST AdvReac Unknown Uncoded 01/09/23 14:32 General Stated Complaint: Dizzy/Sync MANNIE: 3 Review of Systems Constitutional Constitutional: Denies chills, Reports excessive sweating, Denies fever(s) and Reports headache(s) Eyes Eyes: Denies change in vision ENT Ears, Nose, Mouth, and Throat: Reports dizziness, Reports headache(s) and Denies sore throat Cardiovascular Cardiovascular: Denies chest pain, Denies irregular heart rhythm and Denies dyspnea Respiratory Respiratory: Denies cough and Denies dyspnea Gastrointestinal Gastrointestinal: Denies abdominal pain, Denies diarrhea, Reports nausea and Denies vomiting Genitourinary Genitourinary: Reports system reviewed and no additional complaints, except as documented Musculoskeletal Musculoskeletal: Denies muscle weakness and Denies numbness Integumentary/Breasts Skin/Breast: Denies rash Neurologic Neurologic: Reports as per HPI, Denies confusion, Reports dizziness, Reports headache(s), Denies lack of coordination, Denies localized weakness, Denies numbness and Reports tremor(s) Psychiatric Psychiatric: Denies confusion Endocrine Endocrine: Reports excessive sweating PFSH All Active Problems (Updated 01/09/23 @ 21:13 by Obinna Krause NP) Chest pain (Acute) Traumatic tear of left rotator cuff (Acute ~03/2022) Bronchitis, acute (Acute) Actinic keratoses (Acute) Seborrheic keratoses, inflamed (Acute) Atypical nevus (Acute) Lipoma of arm (Acute) Mild intermittent asthma without complication (Acute 11/08/15) Coronary arteriosclerosis (Acute) Medical History Arthritis of left acromioclavicular joint s/p distal clavicle excision, 04/28/20 Asthma Atypical chest pain Pt. states They don't know what it is, Dr. Oglesby thinks its just muscular, and not cardiac related Bursitis of left shoulder Chronic back pain Chronic constipation Colicky RUQ abdominal pain Complete tear of right rotator cuff (12/03/17) COVID-19 De Quervain's tenosynovitis, left Depression Elevated cholesterol Fatigue GERD (gastroesophageal reflux disease) pt. denies this HTN (hypertension) Hypothyroidism Impingement syndrome of left shoulder Insomnia Left wrist pain Migraines Normal colonoscopy (~01/13/22) MOISES (obstructive sleep apnea) Overactive bladder Rectal bleed Rectal bleeding Screening for colon cancer Seborrheic keratosis (12/15/16) upper back of left arm Skin lesion SVT (supraventricular tachycardia) Tendonitis of left rotator cuff Injection: 08/04/2019 Trochanteric bursitis of right hip Trochanteric bursitis, left hip S/P ITB tenotomy and bursal debridement DOS: 12/24/18 Dr. 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 Perez History of cardiac cath Non-obstructive CAD, Elevated LV end diastolic pressure. no stents History of colonoscopy (~01/13/22) Hx of breast biopsy Left carpal tunnel syndrome S/P ECTR: 03/23/2020 Left rotator cuff tear s/p arthroscopic rotator cuff repair 04/28/20 s/p arthroscopic revision rotator cuff repair: 08/11/2020 Oophrectomy, Left with hyst , Ectopic (~1983) Right carpal tunnel syndrome S/P ECTR: 03/23/2020 Status post right rotator cuff repair Right repeat rotator cuff repair, also has had left RTC repaired. Date of surgery: 04/16/18 Dr. Perez Family History Mother Essential hypertension Spinal stenosis Stroke Atrial fibrillation Father Essential hypertension Heart disease Myocardial infarction Brother Atrial fibrillation Essential hypertension Prostate cancer Social History Smoking/Tobacco Use Status: Former Tobacco Use Quit Date: 09/17/84 Pack-years: 12 Smoking risk assessment performed?: Yes Alcohol Intake: never Drug use: Never Substance use type: does not use Household members: significant other Number of Children: 1 Current gender identity: female Seatbelt use: sometimes Do you feel safe at home: Yes Do you feel safe in your relationship?: Yes Additional Social history: Quit smoking 1984 Exam Const General: cooperative, no acute distress and well groomed Orientation: alert, awake and oriented x3 HENMT Head: normal to inspection Ears: hearing grossly normal bilaterally and TM's normal bilaterally Mouth: oral mucosae normal and moist mucous membranes Throat: posterior oropharynx normal Eyes Visual Phelan: normal visual phelan by confrontation Alignment and Position: alignment normal Periorbital: periorbital findings normal Eyelids: eyelids normal Sclera: sclerae normal Pupils: PERRL EOM: EOM intact bilaterally Neck Neck: normal visual inspection, full ROM and no meningeal signs Resp Effort & Inspection: normal respiratory effort and able to speak in complete sentences Auscultation: clear to auscultation bilaterally Cardio Rate: regular rate Rhythm: regular rhythm Heart Sounds: S1 normal and S2 normal Pulses: normal peripheral pulses Neuro General: patient alert, patient awake, patient oriented x3, gait normal, tone normal, moves all extremities, CN's II-XI intact bilaterally and not confused Cognition: normal cognition Speech: speech normal Motor: muscle tone normal throughout, strength 5/5 throughout, no pronator drift, no movement abnormalities noted and no fasciculations Sensory Exam: no sensory deficits noted Coordination: Romberg test normal and Does not sway with eyes open Course Vital Signs Vital signs: Vital Signs Temperature 36.8 C 01/09/23 15:38 Pulse 69 01/09/23 15:38 Respiratory Rate 16 01/09/23 15:38 Blood Pressure 138/88 01/09/23 15:38 Pulse Oximetry 97 01/09/23 15:38 Temperature 36.8 C 01/09/23 15:38 Temperature Source Temporal Artery Scan 01/09/23 15:38 Pulse 69 01/09/23 15:38 Respiratory Rate 16 01/09/23 15:38 Respiratory Effort Normal 01/09/23 15:43 Blood Pressure 138/88 01/09/23 15:38 Blood Pressure Position Sitting 01/09/23 15:38 Pulse Oximetry 97 01/09/23 15:38 Oxygen Delivery Method Room Air 01/09/23 15:38 Oxygen Flow Rate 0 01/09/23 15:38 Pain Level 0 01/09/23 15:38
--- NOTE | 2023-01-09 16:00 | DI.CT_ITS ---
Exam(s) CT HEAD WO EXAM: CT HEAD WO CLINICAL HISTORY: Headache, near syncope. TECHNIQUE: Imaging Protocol: Axial computed tomography images with coronal and sagittal reformatted images were created and reviewed COMPARISON: CT CT BRAIN NECK CTA from 02/25/2021 FINDINGS: Ventricles and Extra axial spaces: Normal in size and morphology for the patient's age. Hemorrhage: None. Cerebral parenchyma: No significant atrophy. Minimal microvascular changes. Midline shift: None. Brainstem/Cerebellum: Normal. Calvarium: Normal. Visualized Paranasal sinuses/Mastoids: Small mucous retention cysts in the maxillary sinuses, otherwi se clear. Soft Tissues: Unremarkable. IMPRESSION: No acute intracranial process. RADIATION DOSE DELIVERED: 761.92mGy.cm Total DLP DATA REPOSITORY: All CT scans at this facility are submitted to the National Radiology Data Registry (NRDR) Dose Index Registry (DIR) with the [employer] ([employer]). RADIATION OPTIMIZATION: All CT scans at this facility use at least one of these dose optimization te chniques: automated exposure control; mA and/or kV adjustment per patient size (includes targeted exa ms where dose is matched to clinical indication); or iterative reconstruction.
[2023-01-09 16:47] LABS: COVID-19 PCR Negative (Negative); Influenza A PCR Negative (Negative); Influenza B PCR Negative (Negative); RSV PCR Negative (Negative)
[2023-01-09 16:51] LABS: Source Nasopharynx
[2023-01-09 16:54] LABS: Abs Immature Grans 0.02 10^3/uL (0.0-0.06); Absolute Basophil Count 0.08 10^3/uL (0.0-0.2); Absolute Eosinophil Count 0.21 10^3/uL (0.0-0.7); Absolute Lymphocyte Count 2.67 10^3/uL (1.2-3.4); Absolute Monocyte Count 0.75 10^3/uL (0.1-0.8); Absolute Neutrophil Count 4.67 10^3/uL (1.2-6.7); Eosinophils % 2.5; HCT 43.1 % (36.0-46.0); HGB 14.4 g/dL (11.2-15.7); Immature Grans % 0.2; Lymphocytes % 31.8; MCH 30.3 pg (27.0-33.0); MCHC 33.4 % (32.0-36.0); MCV 91 fL (80-95); MPV 12.7 fL (8.0-11.0); Monocytes % 8.9; Neutrophils % 55.6; Platelet Count 196 10^3/uL (130-400); RBC 4.76 10^6/uL (3.93-5.22); RDW 13.1 % (11.7-14.6); RDW-SD 43.3 fL
[2023-01-09 17:22] LABS: ALT 50 U/L (14-59); AST 49 U/L (15-37); Albumin 3.6 g/dL (3.4-5.0); Alkaline Phosphatase 145 U/L (46-116); Anion Gap 7.8 mmol/L (3-11); BUN 13 mg/dL (7-18); Bilirubin, Total 0.6 mg/dL (0.2-1.0); CO2 26.2 mmol/L (21.0-32.0); CREATININE 0.8 mg/dL (0.55-1.02); Calcium 9.2 mg/dL (8.5-10.1); Chloride 104 mmol/L (98-107); Estimated GFR 83.26 (mL/min/1.73m2); Glucose 93 mg/dL (74-106); Potassium 3.8 mmol/L (3.5-5.1); Sodium 138 mmol/L (136-145); TSH (W/Ref FT4) 2.34 uIU/mL (0.36-3.74); Total Protein 7.7 g/dL (6.4-8.2); Troponin I 53 ng/L (<or=60)
[2023-01-09 17:26] LABS: D-Dimer 614 ng/mlFEU (<500)
--- NOTE | 2023-01-09 17:28 | DI.VRAD_ITS ---
PROCEDURE INFORMATION: Exam: CT Head Without Contrast Exam date and time: 01/09/2023 4:50 PM Age: 62 years old Clinical indication: Headache, near syncope TECHNIQUE: Imaging protocol: Computed tomography of the head without contrast. Radiation optimization: All CT scans at this facility use at least one of these dose optimization techniques: automated exposure control; mA and/or kV adjustment per patient size (includes targeted exams where dose is matched to clinical indication); or iterative reconstruction. COMPARISON: MR BRAIN WO/W 01/21/2021 2:12 PM FINDINGS: Brain: No evidence for acute transcortical infarct. No mass effect or midline shift. No extra-axial collection. No acute intracranial hemorrhage. Basal cisterns are patent. Cerebral ventricles: No ventriculomegaly. Paranasal sinuses: Visualized sinuses are unremarkable. No fluid levels. Mastoid air cells: Visualized mastoid air cells are well aerated. Orbital cavities: Right cataract surgery. Bones/joints: Unremarkable. No acute fracture. Soft tissues: Unremarkable. IMPRESSION: No hydrocephalus, acute intracranial hemorrhage, or mass effect. Dictated and Authenticated by: Florencio Spangler MD. Ordering:JESSE Yeboah MD
[2023-01-09 19:14] LABS: Troponin I 50 ng/L (<or=60)
--- NOTE | 2023-01-09 19:30 | RT.EKG_ITS ---
APPROVED REPORT Exam: Resting ECG Reason for Exam: chest pain Patient Location: E HR:70 bpm ECG Measurements Heart Rate 70 AXIS IL 188 P 26 QRSd 79 QRS -35 QT 414 T 30 QTc 446 Conclusion Sinus rhythm...normal P axis, V-rate 60- 99 Left axis deviation...QRS axis (-30,-90) Physician: no stemi
[2023-01-09] MEDS: Aspirin 81 MG CHEW 324 MG CH (19:50)
[2023-01-09 20:18] LABS: Bilirubin Negative (Negative); Blood Trace-intact (Negative); Clarity Clear (Clear); Glucose Negative (Negative); Ketones Negative (Negative); Leukocyte Esterase Negative (Negative); Nitrite Negative (Negative); pH 6.5 (5-8)
[2023-01-09 20:28] LABS: Bacteria Negative HPF (Negative); C & S Indicated? No; Casts Negative LPF (Negative); Crystals Negative HPF (Negative); Epithelial Cells Few HPF (Negative); Mucus Negative (Negative); RBC 0-2 HPF (0-2); WBC 0-2 HPF (0-5)
[2023-01-09] MEDS: Enoxaparin 40 MG/0.4 ML SYR SC (22:40)
--- NOTE | 2023-01-09 22:42 | HPE_ITS ---
Date of service: 01/09/23 Time of Service: 22:43 Assessment and Plan Assessment and plan (1) Chest pain: Status: Acute Assessment and plan: The acute onset of a constellation of symptoms including SOB, lightheadedness, nausea, sweats in a patient with known ASCVD is concerning for a cardiac cause. She also developed some chest pressure. While neurocardiogenic etiology is certainly possible, I do think given her risk factors she should be observed and monitored with serial troponins. I agree that given negative correctly d-dimer and negative YEARS score CTA for PE not indicated. She has a history of abnormal MPI (though her last in 2020 was normal) and history of non-diagnostic ETT. Given this, we will repeat MPI tomorrow morning. She is on telemetry, consider sending home with gusset ripper I don't think this has anything to do with blood sugar. I did order A1c given history of prediabetes. Given recent doubling of diltiazem, I am cuttnig this back by 25% to 180mg. (2) Coronary arteriosclerosis: Status: Acute Assessment and plan: She is on high intensity statin and ezetemibe. Will continue these for now along with ASA. She still wasn't at goal <70 LDL when labs done this year, however. Continue both for now, follow as outpatient. (3) Mild intermittent asthma without complication: Status: Acute Assessment and plan: Not active, albuterol prn only. (4) Sleep apnea: Status: None Assessment and plan: She has been untreated for a couple of years now. (5) Hypothyroidism: Assessment and plan: TSH was at goal, continue LT4 dose (6) Elevated AST (SGOT): Status: Acute Assessment and plan: This has been noted over the past couple years. SHe denies EtOH. Platelets are normal, not clearly c/w cirrhosis, but this should be considered on outpatient follow up. (7) DVT prophylaxis: Status: Acute Assessment and plan: LMWH given age, BMI (8) Discharge planning issues: Status: Acute Assessment and plan: Stable on medical floor on telemetry. Full Code. Likely discharge home after negative MPI, possibly with monitor. History of Present Illness History of Present Illness Chief Complaint: lightheaded, nausea Narrative: 62 yo with known ASCVD, hypertension, hyperlipidemia, BMI of 35, who presented today with acute onset nausea, malaise, lightheadedness, shortness of breath, weakness in bilateral arms, and sweats starting at about 12pm today. She was feeling well and had been standing for about 30 minutes folding laundry when the episode started. She has been diagnosed prediabetic so she thought her sugars were going low, but she ate some Frootloops and Pepsi and her symptoms persisted. Her blood pressures were 130-140s/50s-90s at home. She did not have chest pain or palpitations as she has had before. She felt worse than she did during previous episodes of chest pain in years past. She called her PCP in [place] who suggested express care. She was evaluated and sent to the ED. The symptoms have improved in the hours since but she continues to feel a little weak and her arms and feel intermittent sweats. She started getting left sided chest pressure in the ED at around 15:40 pm, whi ch lasted for an hour. She was given ASA at that point. The discomfort was mild, not radiating, and not associated with a clear worsening of her other symtpoms. Of note, her diltiazem ER was increased from 120 to 240mg two weeks ago to control some symptomatic palpitations (PVCs?). It was helping. Review of Systems Constitutional Constitutional: Denies anorexia (has had more appetite recently), Reports excessive sweating, Denies fever(s), Reports headache(s) (history of migraines, getting morning headaches recently), Reports lethargy and Reports snoring (hasn't used CPAP since recall) Eyes Eyes: Denies change in vision and Denies irritation ENT Ears, Nose, Mouth, and Throat: Denies dizziness, Reports headache(s) (history of migraines, getting morning headaches recently), Reports nasal congestion (relates to allergies), Denies nasal discharge and Denies sore throat Cardiovascular Cardiovascular: Reports as per HPI and Denies orthopnea Respiratory Respiratory: Denies cough, Denies excessive phlegm production, Reports snoring (hasn't used CPAP since recall) and Denies wheezing Gastrointestinal Gastrointestinal: Denies abdominal pain, Denies heartburn and Denies vomiting Genitourinary Genitourinary: Denies hematuria, Denies dysuria and Denies urinary incontinence Musculoskeletal Comments: no new joint pains Integumentary/Breasts Skin/Breast: Denies rash and Denies skin ulcer Neurologic Neurologic: Denies confusion, Denies dizziness, Reports headache(s) (history of migraines, getting morning headaches recently) and Denies sensory deficit Psychiatric Psychiatric: Denies anxiety, Denies confusion and Denies mood swings Endocrine Endocrine: Reports excessive sweating Hematologic/Lymphatic Hematologic/Lymphatic: Denies easy bleeding Allergic/Immunologic Allergic/Immunologic: Denies wheezing PFSH All Active Problems (Updated 01/09/23 @ 23:14 by Glenn Busby) Elevated AST (SGOT) (Acute) Discharge planning issues (Acute) DVT prophylaxis (Acute) Chest pain (Acute) Traumatic tear of left rotator cuff (Acute ~03/2022) Bronchitis, acute (Acute) Actinic keratoses (Acute) Seborrheic keratoses, inflamed (Acute) Atypical nevus (Acute) Lipoma of arm (Acute) Mild intermittent asthma without complication (Acute 11/08/15) Coronary arteriosclerosis (Acute) Medical History Arthritis of left acromioclavicular joint s/p distal clavicle excision, 04/28/20 Asthma Atypical chest pain Pt. states They don't know what it is, Dr. Oglesby thinks its just muscular, and not cardiac related Bursitis of left shoulder Chronic back pain Chronic constipation Colicky RUQ abdominal pain Complete tear of right rotator cuff (12/03/17) COVID-19 De Quervain's tenosynovitis, left Depression Elevated cholesterol Fatigue GERD (gastroesophageal reflux disease) pt. denies this HTN (hypertension) Hypothyroidism Impingement syndrome of left shoulder Insomnia Left wrist pain Migraines Normal colonoscopy (~01/13/22) MOISES (obstructive sleep apnea) Overactive bladder Rectal bleed Rectal bleeding Screening for colon cancer Seborrheic keratosis (12/15/16) upper back of left arm Skin lesion SVT (supraventricular tachycardia) Tendonitis of left rotator cuff Injection: 08/04/2019 Trochanteric bursitis of right hip Trochanteric bursitis, left hip S/P ITB tenotomy and bursal debridement DOS: 12/24/18 Dr. 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 Perez History of cardiac cath Non-obstructive CAD, Elevated LV end diastolic pressure. no stents History of colonoscopy (~01/13/22) Hx of breast biopsy Left carpal tunnel syndrome S/P ECTR: 03/23/2020 Left rotator cuff tear s/p arthroscopic rotator cuff repair 04/28/20 s/p arthroscopic revision rotator cuff repair: 08/11/2020 Oophrectomy, Left with hyst , Ectopic (~1983) Right carpal tunnel syndrome S/P ECTR: 03/23/2020 Status post right rotator cuff repair Right repeat rotator cuff repair, also has had left RTC repaired. Date of surgery: 04/16/18 Dr. Perez Family History Mother Essential hypertension Spinal stenosis Stroke Atrial fibrillation Father Essential hypertension Heart disease Myocardial infarction Brother Atrial fibrillation Essential hypertension Prostate cancer Social History (Updated 01/09/23 @ 22:54 by Glenn Busby) Smoking/Tobacco Use Status: Former Tobacco Use Quit Date: 09/17/84 Pack-years: 12 Smoking risk assessment performed?: Yes Alcohol Intake: never Drug use: Never Substance use type: does not use Household members: significant other Number of Children: 1 Current gender identity: female Seatbelt use: sometimes Do you feel safe at home: Yes Do you feel safe in your relationship?: Yes Additional Social history: Quit smoking 1984. Lives with in [place]. Retired, helps care for grandkids. Meds Allergies and Home Medications Allergies Allergy/AdvReac Type Severity Reaction Status Date / Time tetrabenazine Allergy Severe RASH,HIVES Verified 01/09/23 14:32 amoxicillin Allergy Intermediate Skin Rash Verified 01/09/23 14:32 hydrocodone [From Vicodin] Allergy Intermediate PRURITIS Verified 01/09/23 14:32 morphine Allergy Intermediate ITCHY, SICK Verified 01/09/23 14:32 peanut Allergy Intermediate Anaphylaxsi Verified 01/09/23 14:32 s tree nut Allergy Intermediate Anaphylaxsi Verified 01/09/23 14:32 s adhesive AdvReac Intermediate RASH AND Verified 01/09/23 14:32 SWELLING alcohol AdvReac Intermediate RASH Verified 01/09/23 14:32 [From Mastisol Liquid Adhesive] gum mastic AdvReac Intermediate RASH Verified 01/09/23 14:32 [From Mastisol Liquid Adhesive] methyl salicylate AdvReac Intermediate RASH Verified 01/09/23 14:32 [From Mastisol Liquid Adhesive] storax AdvReac Intermediate RASH Verified 01/09/23 14:32 [From Mastisol Liquid Adhesive] benzoin AdvReac Mild Skin Rash Verified 01/09/23 14:32 cat dander AdvReac Mild WATERY EYES Verified 01/09/23 14:32 milk AdvReac Unknown Verified 01/09/23 14:32 pollen extracts AdvReac Unknown watery eyes Verified 01/09/23 14:32 dog dander AdvReac WATERY EYES Verified 01/09/23 14:32 RAW FRUIT Allergy Unknown Uncoded 01/09/23 14:32 DUST AdvReac Unknown Uncoded 01/09/23 14:32 Home Medications Medication Instructions Recorded Confirmed Type citalopram 10 mg tablet (Celexa) 20 mg PO DAILY 10/08/13 01/09/23 History meclizine 12.5 mg tablet 25 mg PO TID PRN 10/08/13 01/09/23 History rosuvastatin 20 mg tablet (Crestor) 40 mg PO DAILY 10/08/13 01/09/23 History epinephrine 0.3 mg/0.3 mL 0.3 mg (0.3 mL) IJ PRN PRN 07/21/16 01/09/23 Rx injection, auto-injector Anaphylaxis ##1 acyclovir 200 mg capsule 200 mg PO DIRECTED PRN 06/01/17 01/09/23 History cetirizine 10 mg tablet 10 mg PO DAILY 12/20/18 01/09/23 History celecoxib 100 mg capsule (Celebrex) 100 mg PO BID 11/15/20 01/09/23 History clindamycin HCl 150 mg capsule 150 mg PO PRN 06/01/21 01/09/23 History ezetimibe 10 mg tablet 10 mg PO DAILY 06/12/21 01/09/23 History aspirin 81 mg tablet,delayed 81 mg PO DAILY 12/22/21 01/09/23 History release levothyroxine 75 mcg tablet 125 mcg PO DAILY 07/05/22 01/09/23 History ondansetron 4 mg disintegrating 4 mg PO Q6H PRN #20 tabs 09/09/22 01/09/23 Rx tablet diltiazem HCl 240 mg capsule,24 240 mg PO DAILY 01/09/23 01/09/23 History hr,extended release mirabegron 50 mg tablet,extended 50 mg PO DAILY 01/09/23 01/09/23 History release 24 hr (Myrbetriq) Exam Narrative Exam Narrative: GEN: Alert and oriented, pleasant and cooperative, gives linear history. No acute distress at rest lying in bed. HEENT: Head atraumatic. Conjunctiva clear, no icterus. PEERL, EOMI. no rhinorrhea. MMM, OP benign. Neck is supple with no masses or lymphadenopathy, trachea midline LUNGS: CTAB with normal effort CV: RRR with no murmurs, gallops, or rubs. ABD: +BS, soft, NT/ND EXT: no cyanosis, clubbing. trace lucila ankle edema. legs not tender MSK: No joint redness or swelling NEURO: CN 2-12 grossly intact. Negative pronator drift. Normal movement of 4 extremities, I cannot appreciate focal weakness in UE. no tremor. Normal speech and coordination SKIN: No rashes or open wounds. PSYCH: normal mood and affect Results Imaging EKG: image reviewed (NSR, left axis, nl intervals, no ST-T changes on EKG at 15:45 or 19:30) Imaging Studies: CT head: no acute disease Labs 01/09/23 16:44 01/09/23 16:44 Labs: Laboratory Results - last 24 hr 01/09/23 01/09/23 01/09/23 15:59 16:12 16:12 WBC Cancelled RBC Cancelled Hgb Cancelled Hct Cancelled MCV Cancelled MCH Cancelled MCHC Cancelled RDW Cancelled Plt Count Cancelled MPV Cancelled Immature Gran % Cancelled Neutrophils % Cancelled Band Neutrophils % Cancelled Lymphocytes % Cancelled Atypical Lymphs % Cancelled Monocytes % Cancelled Eosinophils % Cancelled Basophils % Cancelled Metamyelocytes % Cancelled Myelocytes % Cancelled Promyelocytes % Cancelled Other Cells % Cancelled Nucleated RBC % Cancelled Absolute Neutrophils Cancelled Absolute Lymphocytes Cancelled Absolute Monocytes Cancelled Absolute Eosinophils Cancelled Absolute Basophils Cancelled RBC Morphology Cancelled Polychromasia Cancelled Hypochromasia Cancelled Poikilocytosis Cancelled Basophilic Stippling Cancelled Anisocytosis Cancelled Microcytosis Cancelled Macrocytosis Cancelled Spherocytes Cancelled Tear Drop Cells Cancelled Ovalocytes Cancelled Stomatocytes Cancelled Perez-[place] Bodies Cancelled [place] Cells/Echinocytes Cancelled Acanthocytes (Spur) Cancelled Schistocytes Cancelled D-Dimer Sodium Cancelled Potassium Cancelled Chloride Cancelled Carbon Dioxide Cancelled Anion Gap Cancelled BUN Cancelled Creatinine Cancelled Est GFR (CKD-EPI 2020) Cancelled Glucose Cancelled Hemoglobin A1c Calcium Cancelled Magnesium Cancelled Total Bilirubin Cancelled AST Cancelled ALT Cancelled Alkaline Phosphatase Cancelled Troponin I Cancelled Total Protein Cancelled Albumin Cancelled TSH Cancelled Urine Color Urine Clarity Urine pH Ur Specific [place] Urine Protein Urine Ketones Urine Blood Urine Nitrite Urine Bilirubin Urine Urobilinogen Ur Leukocyte Esterase Urine RBC Urine WBC Ur Epithelial Cells Urine Crystals Urine Bacteria Urine Casts Urine Mucus Ur Culture Indicated? Urine Glucose COVID-19 Source Nasopharynx SARS-CoV-2 (PCR) Negative Influenza Type A (PCR) Negative Influenza Type B (PCR) Negative RSV (PCR) Negative 01/09/23 01/09/23 01/09/23 16:12 16:44 16:44 WBC 8.40 RBC 4.76 Hgb 14.4 Hct 43.1 MCV 91 MCH 30.3 MCHC 33.4 RDW 13.1 Plt Count 196 MPV 12.7 H Immature Gran % 0.2 Neutrophils % 55.6 Band Neutrophils % Lymphocytes % 31.8 Atypical Lymphs % Monocytes % 8.9 Eosinophils % 2.5 Basophils % 1.0 Metamyelocytes % Myelocytes % Promyelocytes % Other Cells % Nucleated RBC % 0.0 Absolute Neutrophils 4.67 Absolute Lymphocytes 2.67 Absolute Monocytes 0.75 Absolute Eosinophils 0.21 Absolute Basophils 0.08 RBC Morphology Polychromasia Hypochromasia Poikilocytosis Basophilic Stippling Anisocytosis Microcytosis Macrocytosis Spherocytes Tear Drop Cells Ovalocytes Stomatocytes Perez-[place] Bodies Robin Cells/Echinocytes Acanthocytes (Spur) Schistocytes D-Dimer Cancelled Sodium 138 Potassium 3.8 Chloride 104 Carbon Dioxide 26.2 Anion Gap 7.8 BUN 13 Creatinine 0.8 Est GFR (CKD-EPI 2020) 83.26 Glucose 93 Hemoglobin A1c Calcium 9.2 Magnesium 2.0 Total Bilirubin 0.6 AST 49 H ALT 50 Alkaline Phosphatase 145 H Troponin I 53 Total Protein 7.7 Albumin 3.6 TSH 2.34 Urine Color Urine Clarity Urine pH Ur Specific [place] Urine Protein Urine Ketones Urine Blood Urine Nitrite Urine Bilirubin Urine Urobilinogen Ur Leukocyte Esterase Urine RBC Urine WBC Ur Epithelial Cells Urine Crystals Urine Bacteria Urine Casts Urine Mucus Ur Culture Indicated? Urine Glucose COVID-19 Source SARS-CoV-2 (PCR) Influenza Type A (PCR) Influenza Type B (PCR) RSV (PCR) 01/09/23 01/09/23 01/09/23 16:44 16:44 18:51 WBC RBC Hgb Hct MCV MCH MCHC RDW Plt Count MPV Immature Gran % Neutrophils % Band Neutrophils % Lymphocytes % Atypical Lymphs % Monocytes % Eosinophils % Basophils % Metamyelocytes % Myelocytes % Promyelocytes % Other Cells % Nucleated RBC % Absolute Neutrophils Absolute Lymphocytes Absolute Monocytes Absolute Eosinophils Absolute Basophils RBC Morphology Polychromasia Hypochromasia Poikilocytosis Basophilic Stippling Anisocytosis Microcytosis Macrocytosis Spherocytes Tear Drop Cells Ovalocytes Stomatocytes Perez-[place] Bodies [place] Cells/Echinocytes Acanthocytes (Spur) Schistocytes D-Dimer 614 H Sodium Potassium Chloride Carbon Dioxide Anion Gap BUN Creatinine Est GFR (CKD-EPI 2020) Glucose Hemoglobin A1c 6.0 H Calcium Magnesium Total Bilirubin AST ALT Alkaline Phosphatase Troponin I 50 Total Protein Albumin TSH Urine Color Urine Clarity Urine pH Ur Specific [place] Urine Protein Urine Ketones Urine Blood Urine Nitrite Urine Bilirubin Urine Urobilinogen Ur Leukocyte Esterase Urine RBC Urine WBC Ur Epithelial Cells Urine Crystals Urine Bacteria Urine Casts Urine Mucus Ur Culture Indicated? Urine Glucose COVID-19 Source SARS-CoV-2 (PCR) Influenza Type A (PCR) Influenza Type B (PCR) RSV (PCR) 01/09/23 20:14 WBC RBC Hgb Hct MCV MCH MCHC RDW Plt Count MPV Immature Gran % Neutrophils % Band Neutrophils % Lymphocytes % Atypical Lymphs % Monocytes % Eosinophils % Basophils % Metamyelocytes % Myelocytes % Promyelocytes % Other Cells % Nucleated RBC % Absolute Neutrophils Absolute Lymphocytes Absolute Monocytes Absolute Eosinophils Absolute Basophils RBC Morphology Polychromasia Hypochromasia Poikilocytosis Basophilic Stippling Anisocytosis Microcytosis Macrocytosis Spherocytes Tear Drop Cells Ovalocytes Stomatocytes Perez-Bacliff Bodies Robin Cells/Echinocytes Acanthocytes (Spur) Schistocytes D-Dimer Sodium Potassium Chloride Carbon Dioxide Anion Gap BUN Creatinine Est GFR (CKD-EPI 2020) Glucose Hemoglobin A1c Calcium Magnesium Total Bilirubin AST ALT Alkaline Phosphatase Troponin I Total Protein Albumin TSH Urine Color Yellow Urine Clarity Clear Urine pH 6.5 Ur Specific [place] 1.010 Urine Protein Negative Urine Ketones Negative Urine Blood Trace-intact H Urine Nitrite Negative Urine Bilirubin Negative Urine Urobilinogen 1.0 H Ur Leukocyte Esterase Negative Urine RBC 0-2 Urine WBC 0-2 Ur Epithelial Cells Few Urine Crystals Negative Urine Bacteria Negative Urine Casts Negative Urine Mucus Negative Ur Culture Indicated? No Urine Glucose Negative COVID-19 Source SARS-CoV-2 (PCR) Influenza Type A (PCR) Influenza Type B (PCR) RSV (PCR) Last Vital Signs Temp 37.2 C 01/09/23 20:56 Pulse 70 01/09/23 20:56 Resp 18 01/09/23 20:56 BP 144/88 H 01/09/23 20:56 Pulse Ox 96 01/09/23 20:56 Time Spent Time spent with Patient: 55-74 minutes Time was spent: preparing to see the patient(eg.review tests), obtaining and/or reviewing separately otained hiistory, ordering medications,tests, procedures, referring, communicating with other health progressive care nurse, indepentently interpreting results and counseling the patient
[2023-01-10 00:16] LABS: Troponin I < 50 ng/L (<or=60)
[2023-01-10 03:37] VITALS: BP 142/78; PULSE 72; RESP 18; TEMP 36.6; O2SAT 96
--- NOTE | 2023-01-10 05:26 | NUR.NOTE ---
Pt admitted to the unit 01/09 @2041. Pt AAOX4, breathing even and unlabored and maintaining O2 sats >92% on RA; lung sounds clear. Pt is in a stable condition and denies any chest pain or pressure, VSS, tele applied and pt is in SR. Pt is independent in room and is able to make needs known. Personal items at bedside, encouraging pt to call for assist before getting up oob.Nursing Note:
[2023-01-10 07:44] VITALS: BP 148/87; PULSE 67; RESP 18; TEMP 36.5; O2SAT 95
[2023-01-10] MEDS: dilTIAZem CD 180 MG CAPCR PO (08:02)
[2023-01-10] MEDS: Mirabegron 50 MG TABCR PO (08:03)
--- NOTE | 2023-01-10 09:43 | INITIAL_ITS ---
- If Service Date Differs Date of service: 01/10/23 Time of Service: 09:43 Care Management Initial Assess REASON FOR HOSPITALIZATION:: Chest Pain PAST MEDICAL HISTORY/PAST SURGICAL HISTORY:: All Active Problems (Updated 01/09/23 @ 23:14 by Glenn Busby). Elevated AST (SGOT) (Acute). Discharge planning issues (Acute). DVT prophylaxis (Acute). Chest pain (Acute). Traumatic tear of left rotator cuff (Acute ~03/2022). Bronchitis, acute (Acute). Actinic keratoses (Acute). Seborrheic keratoses, inflamed (Acute). Atypical nevus (Acute). Lipoma of arm (Acute). Mild intermittent asthma without complication (Acute 11/08/15). Coronary arteriosclerosis (Acute). Medical History . Arthritis of left acromioclavicular joint. s/p distal clavicle excision, 04/28/20. Asthma. Atypical chest pain. Pt. states They don't know what it is, Dr. Oglesby thinks its just muscular, and not cardiac related. Bursitis of left shoulder. Chronic back pain. Chronic constipation. Colicky RUQ abdominal pain. Complete tear of right rotator cuff (12/03/17). COVID-19. De Quervain's tenosynovitis, left. Depression. Elevated cholesterol. Fatigue. GERD (gastroesophageal reflux disease). pt. denies this. HTN (hypertension). Hypothyroidism. Impingement syndrome of left shoulder. Insomnia. Left wrist pain. Migraines. Normal colonoscopy (~01/13/22). MOISES (obstructive sleep apnea). Overactive bladder. Rectal bleed. Rectal bleeding. Screening for colon cancer. Seborrheic keratosis (12/15/16). upper back of left arm. Skin lesion. SVT (supraventricular tachycardia). Tendonitis of left rotator cuff. Injection: 08/04/2019. Trochanteric bursitis of right hip. Trochanteric bursitis, left hip. S/P ITB tenotomy and bursal debridement. DOS: 12/24/18. Dr. Perez. Vulvovaginitis (11/03/13). Surgical History . Abdominal hysterectomy (~2008). for benign reasons. Acquired absence of both cervix and uterus (11/08/15). Arthroplasty of knee. X2 bilat. Cholecystectomy (02/01/16). Excision, Skin Mass (12/15/16). FACET INJECTIONS. History of arthroscopy of left shoulder (02/10/22). History of bursectomy. S/P ITB tenotomy and bursal debridement. DOS: 12/24/18. Dr. Perez. History of cardiac cath. Non-obstructive CAD, Elevated LV end diastolic pressure. no stents. History of colonoscopy (~01/13/22). Hx of breast biopsy. Left carpal tunnel syndrome. S/P ECTR: 03/23/2020. Left rotator cuff tear. s/p arthroscopic rotator cuff repair 04/28/20. s/p arthroscopic revision rotator cuff repair: 08/11/2020. Oophrectomy, Left. with hyst. , Ectopic (~1983). Right carpal tunnel syndrome. S/P ECTR: 03/23/2020. Status post right rotator cuff repair. Right repeat rotator cuff repair, also has had left RTC repaired. Date of surgery: 04/16/18. Dr. Perez PREVIOUS FUNCTIONAL STATUS/SOCIAL/FAMILY SUPPORTS:: Agatha is retired and lives in [facility] with her Berny. Her daughter Lelia lives next door and is very supportive. Agatha shares that she is active and idependent at baseline. She is retired, drives and watches her grandchildren frequently during the day. CURRENT FUNCTIONAL STATUS:: Agatha is lying in bed when CM met with her. She is awake and easily engages in conversation. Agatha spoke with the hospitalist about having a MPI Stress test as an outpatient since cardiology is unavailable today. She is completely agreeable to this plan. Agatha reviewed her recent labs on her portal and has a question about her D-Dimer. CM notified her primary nurse. ADVANCE DIRECTIVES:: None on file Has patient been provided with info about the portal/API?: Yes Did the patient sign up for the portal?: Yes (Prior to admission) CODE STATUS:: Full Code INSURANCE COVERAGE / FINANCIAL ISSUES:: Medicaid CURRENT HOME/COMMUNITY SERVICES/EQUIPMENT:: None PRIMARY CARE PHYSICIAN:: Kerry Ascencio POTENTIAL DISCHARGE NEEDS:: Discharge plan, follow up appointments, MPI Stress test PATIENT/FAMILY EDUCATION NEEDS:: Review discharge instructions and plan to follow up with community providers. Discuss ask me three. TRANSPORTATION:: via private vehicle with family. PLAN:: Agatha will be discharged home via private vehicle with family. She will need an outpatient MPI Stress test and close community follow up. CM will follow.
[2023-01-10 11:12] VITALS: BP 144/74; PULSE 70; RESP 18; TEMP 36.9; O2SAT 95
[2023-01-10 12:05] VITALS: BP 136/81; PULSE 74; RESP 20; O2SAT 94
--- NOTE | 2023-01-10 12:15 | RT.EKG_ITS ---
APPROVED REPORT Exam: Resting ECG Reason for Exam: Chest pain Patient Location: I HR:70 bpm ECG Measurements Heart Rate 70 AXIS DC 198 P 32 QRSd 81 QRS -44 QT 416 T 59 QTc 449 Conclusion Sinus rhythm...normal P axis, V-rate 50- 99 Left axis deviation...QRS axis (-30,-90) Low voltage, precordial leads...precordial leads <1.0mV Artifact in lead(s) I,III,aVR,aVL,aVF,V1,V2,V3,V4,V5,V6
--- NOTE | 2023-01-10 12:47 | PGE_ITS ---
Date of Service Date of service: 01/10/23 Time of Service: 12:47 Assessment and Plan Assessment and plan (1) Chest pain: Status: Acute Assessment and plan: Patient ruled out for GA overnight w/ negative troponins, although we have not excluded ischemic CAD. Apparently she has hx of abnormal stress test in the past that led to cardiac cath. Reportedly she has non-hemodynamically significant CAD. The plan was for stress MPI today however, no sap bpc developer was available so no stress test today. I was going to send her home w/ outpatient stress MPI later this week, until she has some recurrent hot flashes and dyspnea after walking the todd w/ her nurse. Her repeat EKG did not show ischemic changes but has significant baseline artifact in limb lead I, III and aVL. I will repeat her troponin I and her d-dimer. If negative then consider dc home w/ follow up stress MPI later this week, vs. keep her here overnight for MPI in the morning. If d-dimer is rising then will need CTA as this was not done on admission d/t her borderline upper normal d-dimer of 614. She says that she does not have afib but she also describes an intermittent palpitation like her heart does flip flops. Upon discharge, I will send her w/ cardiac event recorder and have her follow up w/ her sap bpc developer at [facility] [place], Dr. Martinez. Professional time spent interviewing and examining patient, discussion of goals of care with hospital team (care management, nursing and consulting professionals) was 30 minutes. (2) Coronary arteriosclerosis: Status: Acute Assessment and plan: She is on high intensity statin and ezetemibe. Will continue these for now along with ASA. She still wasn't at goal <70 LDL when labs done this year, however. Continue both for now, follow as outpatient. (3) Mild intermittent asthma without complication: Status: Acute Assessment and plan: Not active, albuterol prn only. (4) Sleep apnea: Status: None Assessment and plan: She has been untreated for a couple of years now. Given her symptoms of chest palpitations, she is high risk for PSVT and afib. She should be re-evaluated for CPAP. (5) Hypothyroidism: Assessment and plan: TSH was at goal, continue LT4 dose (6) Elevated AST (SGOT): Status: Acute Assessment and plan: This has been noted over the past couple years. SHe denies EtOH. Platelets are normal, not clearly c/w cirrhosis, but this should be considered on outpatient follow up. (7) DVT prophylaxis: Status: Acute Assessment and plan: LMWH given age, BMI (8) Discharge planning issues: Status: Acute Assessment and plan: Stable on medical floor on telemetry. Full Code. Likely discharge home after negative MPI, possibly with monitor. Subjective Subjective Interval history since last seen: Patient was admitted last night w/ symptoms of hot flash in her neck, both shoulders w/ feeling of weakness in both arms and fatigue. No chest pain or pressure. Patient has prediabetes and thought her symptoms were due to low blood glucose but this did not respond to soda and food. Patient was admitted last night to rule out atypical symptoms for ACS. However, her troponin I has been negative x 3 sets (50, 53, and <50) and her EKG has not shown any ischemic changes. Exam Narrative Exam Narrative: Agatha is sitting up in her bed. No acute discomort or dyspnea at present. Although she had symptoms of dyspnea w/ walking earlier this morning. Lungs: clear Heart: RRR, w/out murmur or rub Abdomen: soft, obese, nontender Objective Last Vital Signs Temp 36.9 C 01/10/23 11:12 Pulse 74 01/10/23 12:05 Resp 20 01/10/23 12:05 BP 136/81 01/10/23 12:05 Pulse Ox 94 01/10/23 12:05 Laboratory Results - last 24 hr 01/09/23 01/09/23 01/09/23 15:59 16:12 16:12 WBC Cancelled RBC Cancelled Hgb Cancelled Hct Cancelled MCV Cancelled MCH Cancelled MCHC Cancelled RDW Cancelled Plt Count Cancelled MPV Cancelled Immature Gran % Cancelled Neutrophils % Cancelled Band Neutrophils % Cancelled Lymphocytes % Cancelled Atypical Lymphs % Cancelled Monocytes % Cancelled Eosinophils % Cancelled Basophils % Cancelled Metamyelocytes % Cancelled Myelocytes % Cancelled Promyelocytes % Cancelled Other Cells % Cancelled Nucleated RBC % Cancelled Absolute Neutrophils Cancelled Absolute Lymphocytes Cancelled Absolute Monocytes Cancelled Absolute Eosinophils Cancelled Absolute Basophils Cancelled RBC Morphology Cancelled Polychromasia Cancelled Hypochromasia Cancelled Poikilocytosis Cancelled Basophilic Stippling Cancelled Anisocytosis Cancelled Microcytosis Cancelled Macrocytosis Cancelled Spherocytes Cancelled Tear Drop Cells Cancelled Ovalocytes Cancelled Stomatocytes Cancelled [place] Bodies Cancelled Branch Cells/Echinocytes Cancelled Acanthocytes (Spur) Cancelled Schistocytes Cancelled D-Dimer Sodium Cancelled Potassium Cancelled Chloride Cancelled Carbon Dioxide Cancelled Anion Gap Cancelled BUN Cancelled Creatinine Cancelled Est GFR (CKD-EPI 2020) Cancelled Glucose Cancelled Hemoglobin A1c Calcium Cancelled Magnesium Cancelled Total Bilirubin Cancelled AST Cancelled ALT Cancelled Alkaline Phosphatase Cancelled Troponin I Cancelled Total Protein Cancelled Albumin Cancelled TSH Cancelled Urine Color Urine Clarity Urine pH Ur Specific [place] Urine Protein Urine Ketones Urine Blood Urine Nitrite Urine Bilirubin Urine Urobilinogen Ur Leukocyte Esterase Urine RBC Urine WBC Ur Epithelial Cells Urine Crystals Urine Bacteria Urine Casts Urine Mucus Ur Culture Indicated? Urine Glucose COVID-19 Source Nasopharynx SARS-CoV-2 (PCR) Negative Influenza Type A (PCR) Negative Influenza Type B (PCR) Negative RSV (PCR) Negative 01/09/23 01/09/23 01/09/23 16:12 16:44 16:44 WBC 8.40 RBC 4.76 Hgb 14.4 Hct 43.1 MCV 91 MCH 30.3 MCHC 33.4 RDW 13.1 Plt Count 196 MPV 12.7 H Immature Gran % 0.2 Neutrophils % 55.6 Band Neutrophils % Lymphocytes % 31.8 Atypical Lymphs % Monocytes % 8.9 Eosinophils % 2.5 Basophils % 1.0 Metamyelocytes % Myelocytes % Promyelocytes % Other Cells % Nucleated RBC % 0.0 Absolute Neutrophils 4.67 Absolute Lymphocytes 2.67 Absolute Monocytes 0.75 Absolute Eosinophils 0.21 Absolute Basophils 0.08 RBC Morphology Polychromasia Hypochromasia Poikilocytosis Basophilic Stippling Anisocytosis Microcytosis Macrocytosis Spherocytes Tear Drop Cells Ovalocytes Stomatocytes [place] Bodies Branch Cells/Echinocytes Acanthocytes (Spur) Schistocytes D-Dimer Cancelled Sodium 138 Potassium 3.8 Chloride 104 Carbon Dioxide 26.2 Anion Gap 7.8 BUN 13 Creatinine 0.8 Est GFR (CKD-EPI 2020) 83.26 Glucose 93 Hemoglobin A1c Calcium 9.2 Magnesium 2.0 Total Bilirubin 0.6 AST 49 H ALT 50 Alkaline Phosphatase 145 H Troponin I 53 Total Protein 7.7 Albumin 3.6 TSH 2.34 Urine Color Urine Clarity Urine pH Ur Specific [place] Urine Protein Urine Ketones Urine Blood Urine Nitrite Urine Bilirubin Urine Urobilinogen Ur Leukocyte Esterase Urine RBC Urine WBC Ur Epithelial Cells Urine Crystals Urine Bacteria Urine Casts Urine Mucus Ur Culture Indicated? Urine Glucose COVID-19 Source SARS-CoV-2 (PCR) Influenza Type A (PCR) Influenza Type B (PCR) RSV (PCR) 01/09/23 01/09/23 01/09/23 16:44 16:44 18:51 WBC RBC Hgb Hct MCV MCH MCHC RDW Plt Count MPV Immature Gran % Neutrophils % Band Neutrophils % Lymphocytes % Atypical Lymphs % Monocytes % Eosinophils % Basophils % Metamyelocytes % Myelocytes % Promyelocytes % Other Cells % Nucleated RBC % Absolute Neutrophils Absolute Lymphocytes Absolute Monocytes Absolute Eosinophils Absolute Basophils RBC Morphology Polychromasia Hypochromasia Poikilocytosis Basophilic Stippling Anisocytosis Microcytosis Macrocytosis Spherocytes Tear Drop Cells Ovalocytes Stomatocytes [place] Bodies Branch Cells/Echinocytes Acanthocytes (Spur) Schistocytes D-Dimer 614 H Sodium Potassium Chloride Carbon Dioxide Anion Gap BUN Creatinine Est GFR (CKD-EPI 2020) Glucose Hemoglobin A1c 6.0 H Calcium Magnesium Total Bilirubin AST ALT Alkaline Phosphatase Troponin I 50 Total Protein Albumin TSH Urine Color Urine Clarity Urine pH Ur Specific [place] Urine Protein Urine Ketones Urine Blood Urine Nitrite Urine Bilirubin Urine Urobilinogen Ur Leukocyte Esterase Urine RBC Urine WBC Ur Epithelial Cells Urine Crystals Urine Bacteria Urine Casts Urine Mucus Ur Culture Indicated? Urine Glucose COVID-19 Source SARS-CoV-2 (PCR) Influenza Type A (PCR) Influenza Type B (PCR) RSV (PCR) 01/09/23 01/09/23 20:14 23:52 WBC RBC Hgb Hct MCV MCH MCHC RDW Plt Count MPV Immature Gran % Neutrophils % Band Neutrophils % Lymphocytes % Atypical Lymphs % Monocytes % Eosinophils % Basophils % Metamyelocytes % Myelocytes % Promyelocytes % Other Cells % Nucleated RBC % Absolute Neutrophils Absolute Lymphocytes Absolute Monocytes Absolute Eosinophils Absolute Basophils RBC Morphology Polychromasia Hypochromasia Poikilocytosis Basophilic Stippling Anisocytosis Microcytosis Macrocytosis Spherocytes Tear Drop Cells Ovalocytes Stomatocytes [place] Bodies Branch Cells/Echinocytes Acanthocytes (Spur) Schistocytes D-Dimer Sodium Potassium Chloride Carbon Dioxide Anion Gap BUN Creatinine Est GFR (CKD-EPI 2020) Glucose Hemoglobin A1c Calcium Magnesium Total Bilirubin AST ALT Alkaline Phosphatase Troponin I < 50 Total Protein Albumin TSH Urine Color Yellow Urine Clarity Clear Urine pH 6.5 Ur Specific [place] 1.010 Urine Protein Negative Urine Ketones Negative Urine Blood Trace-intact H Urine Nitrite Negative Urine Bilirubin Negative Urine Urobilinogen 1.0 H Ur Leukocyte Esterase Negative Urine RBC 0-2 Urine WBC 0-2 Ur Epithelial Cells Few Urine Crystals Negative Urine Bacteria Negative Urine Casts Negative Urine Mucus Negative Ur Culture Indicated? No Urine Glucose Negative COVID-19 Source SARS-CoV-2 (PCR) Influenza Type A (PCR) Influenza Type B (PCR) RSV (PCR) Time Spent with Patient Time Spent with Patient: 25-34 minutes Time was spent: preparing to see the patient(eg.review tests), obtaining and/or reviewing separately otained hiistory, ordering medications,tests, procedures, referring, communicating with other health resident care manager (Discussion with Dr. Busby), indepentently interpreting results, counseling the patient and care coordination
[2023-01-10 13:03] LABS: Troponin I 50 ng/L (<or=60)
[2023-01-10 13:43] LABS: D-Dimer 583 ng/mlFEU (<500)
--- NOTE | 2023-01-10 14:46 | DSE_ITS ---
Date of service: 01/10/23 Time of Service: 14:46 DS: Diagnosis Discharge Diagnosis (1) Chest pain: Status: Acute Asessment and Plan: patient presented w/ atypical symptoms of feeling hot, sweaty, and dizzy, not associated w/ chest pain per se but feeling of dyspnea and a hot flash. Patient has known PSVT for which she is on diltiazem CD. She had admission EKG and troponin I which were normal. D-dimer was checked and found to be within her age adjusted normal at 614 and overnight her repeat troponin I levels were all normal (53, 50, <50, and 50) and repeat d-dimer was lower at 583. Repeat EKG did not show any ischemic or injury pattern. Stress test w/ MPI had been ordered as inpatient but d/t lack of cardiology services, stress test was not completed while she was an inpatient. Patient was feeling better and with shared decision making w/ the patient she was discharged home to follow up tomorrow for stress MPI study and to be set up for cardiac event recorder. Patient should follow up w/ both her PCP, Kerry Ascencio in the next week and with her stone engraver, Dr. Glenn Martinez in the next month. (2) Coronary arteriosclerosis: Status: Acute (3) Mild intermittent asthma without complication: Status: Acute Asessment and Plan: no acute flare up. no bronchospasm on exam and no infiltrates on CXR (4) Sleep apnea: Status: None Asessment and Plan: patient is noncompliant w/ CPAP use. PCP should continue to encourage patient on use of CPAP as this will reduce her risk for CHF and arrhythmias. (5) Hypothyroidism: Asessment and Plan: TSH 2.34 normal. continue maury (6) Elevated AST (SGOT): Status: Acute Asessment and Plan: minimally elevated at AST 49 and alkaline phosphatase of 145. Recommend follow up with repeat labs within a month. If still elevated then get imaging of liver, hepatitis profile and workup for autoimmune liver disease and consider pharmacist review of her meds. Discharge Plan Disposition Patient Disposition: Home Condition: Good Discharge Details Reason For Visit: Chest Pain Admit Date/Time: 01/09/23 19:59 Admit Provider: Glenn Busby Attending Provider: Glenn Busby Primary Care Provider: Kerry Ascencio Home Meds and New Rx's Prescriptions: Continued celecoxib [Celebrex] 100 mg capsule 100 mg PO BID clindamycin HCl 150 mg capsule 150 mg PO PRN Rx Instructions: prior to dental appt. diltiazem HCl 240 mg capsule,extended release 24 hr 240 mg PO DAILY citalopram [Celexa] 10 MG tablet 20 mg PO DAILY Patient Comments: 10 mg tab and 20 mg tab total 30. meclizine 12.5 MG tablet 25 mg PO TID PRN Patient Comments: prn rosuvastatin [Crestor] 20 MG tablet 40 mg PO DAILY acyclovir 200 MG capsule 200 mg PO DIRECTED PRN aspirin 81 mg tablet,delayed release (DR/EC) 81 mg PO DAILY levothyroxine 75 mcg tablet 125 mcg PO DAILY epinephrine 0.3 MG/SYR auto-injector 0.3 mg IJ PRN PRN (Reason: Anaphylaxis) Qty: 1 0RF Myrbetriq 50 mg Tablet Extended Release 24 Hr 50 mg PO DAILY cetirizine 10 mg Tablet 10 mg PO DAILY ezetimibe 10 mg tablet 10 mg PO DAILY Patient Comments: TAKE 1 TABLET BY MOUTH EVERY DAY ondansetron 4 mg tablet,disintegrating 4 mg PO Q6H PRNQty: 20 0RF Discharge Instructions Instructions: Angina (DC), Noncardiac Chest Pain (DC), Nuclear Stress Test (DC) Additional Instructions: You were admitted due to symptoms of nausea, sweating, dizziness and palpitations. You were monitored overnight on radiation monitor and had serial troponin I (heart enzymes) and serial EKG's. You did not have any evidence for a heart attack. While your symptoms were not typical for angina (ischemic heart pain) nor for that of a heart attack, this does not mean that you could not have significant coronary atherosclerosis and may be at risk for future heart attacks. You have had prior cardiac catheterization w/ some coronary atherosclerosis albeit not significant enough to require stents in the past. Also your symptoms may be related to a heart arrhythmia. You have known PSVT (a narrow complex heart arrhythmia that originates in the upper chambers of the heart. We have ordered a cardiac event recorder to try to capture any arrhythmias that you may develope associated w/ your symptoms of hot flashes as you call them. We did not machine operator hop picker any arrhythmias on the heart monitor you were on overnight. we have scheduled you for a stress nuclear exam for tomorrow. Nursing will give you a time to present to the hospital for your test. Respiratory therapy will contact you to set up the heart monitor. Results should go to your stone engraver, Dr. Martinez at [facility]. Stand Alone Forms: Nursing Discharge Form Referrals: Glenn Martinez [ NON-[facility] STAFF PHYSICIAN] - Kerry Ascencio [Primary Care Provider] - Activity:: Activity as Tolerated Equipment/Supplies:: No Equipment Needed Diet:: Normal Diet Discharge Orders Discharge Orders: Discharge Order (Routine); Ordered 01/10/23 Ordered By: Robe Sam Ambulatory Orders: Cardiac Event Recorder (Routine) Timeframe: 1 Day Facility: [facility] - Location: Respiratory Therapy Ordered By: Robe Padgett NM MPI rest & stress grp (Routine) Timeframe: 1 Day Facility: [facility] - Location: DIAGNOSTIC IMAGING DEPT Ordered By: Robe Padgett DS: Summary Time Spent with Patient providing and/or coordinating discharge services: Greater than 30 minutes Status at Discharge Functional status at discharge: independent ambulation Overall status at discharge: patient is back to baseline Mental Status: mental status grossly normal Speech and Movement: speech and movement normal Mood: congruent mood Affect: normal affect Exam Narrative Exam Narrative: Agatha is sitting up in her bed. No acute discomort or dyspnea at present. Although she had symptoms of dyspnea w/ walking earlier this morning. Lungs: clear Heart: RRR, w/out murmur or rub Abdomen: soft, obese, nontender Psych Mental Status: mental status grossly normal Speech and Movement: speech and movement normal Mood: congruent mood Affect: normal affect DS: Data Vitals/I&O Vitals and I&O: Vital Signs Temperature 36.9 C 01/10/23 11:12 Temperature Source Tympanic 01/10/23 11:12 Pulse 74 01/10/23 12:05 Pulse Rhythm Regular 01/10/23 09:28 Pulse 75 01/09/23 19:31 Respiratory Rate 20 01/10/23 12:05 Respiratory Effort Normal 01/10/23 09:28 Respiratory Depth Normal 01/10/23 09:28 Respiratory Pattern Normal 01/10/23 09:28 Blood Pressure 136/81 01/10/23 12:05 Blood Pressure Mean 85 01/09/23 19:30 Blood Pressure Position Sitting 01/09/23 15:38 Pulse Oximetry 94 01/10/23 12:05 Oxygen Delivery Method Room Air 01/10/23 12:05 Oxygen Flow Rate 0 01/10/23 12:05 Pain Level 5 01/10/23 11:12 Comment Patient reporting feeling hot flash. States it is the same feeling that brought her in. Warmth from neck/chest out to extremities. States she also began sweating when this occured. Vital signs taken and stable. Reviewed tele with icu nurse and no events noted on tele. Blood glucose checked and stable, 107. Charge nurse, Negrita Boudreaux made aware of patient's symptoms who notified md. Plan for ekg and troponins. 01/10/23 12:05 Intake & Output 01/09/23 01/10/23 01/10/23 23:59 11:59 23:59 Output Total 200 / 200 Balance -200 / -200 Weight 83.96 kg 83.7 kg Output: Urine 200 / 200 Other: Urine Color Yellow Yellow Urine Appearance Clear Clear Clear Comment unclear amount or color. pT went independently. no hat in toilet. Voiding Methods Toilet Data Completed and Pending Labs on day of discharge: Labs from last 24 hours 01/10/23 01/10/23 01/09/23 13:00 12:35 23:52 WBC RBC Hgb Hct MCV MCH MCHC RDW Plt Count MPV Immature Gran % Neutrophils % Band Neutrophils % Lymphocytes % Atypical Lymphs % Monocytes % Eosinophils % Basophils % Metamyelocytes % Myelocytes % Promyelocytes % Other Cells % Nucleated RBC % Absolute Neutrophils Absolute Lymphocytes Absolute Monocytes Absolute Eosinophils Absolute Basophils RBC Morphology Polychromasia Hypochromasia Poikilocytosis Basophilic Stippling Anisocytosis Microcytosis Macrocytosis Spherocytes Tear Drop Cells Ovalocytes Stomatocytes Perez[place] Bodies [place] Cells/Echinocytes Acanthocytes (Spur) Schistocytes D-Dimer 583 H Sodium Potassium Chloride Carbon Dioxide Anion Gap BUN Creatinine Est GFR (CKD-EPI 2020) Glucose Hemoglobin A1c Calcium Magnesium Total Bilirubin AST ALT Alkaline Phosphatase Troponin I 50 < 50 Total Protein Albumin TSH Urine Color Urine Clarity Urine pH Ur Specific [place] Urine Protein Urine Ketones Urine Blood Urine Nitrite Urine Bilirubin Urine Urobilinogen Ur Leukocyte Esterase Urine RBC Urine WBC Ur Epithelial Cells Urine Crystals Urine Bacteria Urine Casts Urine Mucus Ur Culture Indicated? Urine Glucose COVID-19 Source SARS-CoV-2 (PCR) Influenza Type A (PCR) Influenza Type B (PCR) RSV (PCR) 01/09/23 01/09/23 01/09/23 20:14 18:51 16:44 WBC RBC Hgb Hct MCV MCH MCHC RDW Plt Count MPV Immature Gran % Neutrophils % Band Neutrophils % Lymphocytes % Atypical Lymphs % Monocytes % Eosinophils % Basophils % Metamyelocytes % Myelocytes % Promyelocytes % Other Cells % Nucleated RBC % Absolute Neutrophils Absolute Lymphocytes Absolute Monocytes Absolute Eosinophils Absolute Basophils RBC Morphology Polychromasia Hypochromasia Poikilocytosis Basophilic Stippling Anisocytosis Microcytosis Macrocytosis Spherocytes Tear Drop Cells Ovalocytes Stomatocytes Perez[place] Bodies [place] Cells/Echinocytes Acanthocytes (Spur) Schistocytes D-Dimer Sodium Potassium Chloride Carbon Dioxide Anion Gap BUN Creatinine Est GFR (CKD-EPI 2020) Glucose Hemoglobin A1c 6.0 H Calcium Magnesium Total Bilirubin AST ALT Alkaline Phosphatase Troponin I 50 Total Protein Albumin TSH Urine Color Yellow Urine Clarity Clear Urine pH 6.5 Ur Specific [place] 1.010 Urine Protein Negative Urine Ketones Negative Urine Blood Trace-intact H Urine Nitrite Negative Urine Bilirubin Negative Urine Urobilinogen 1.0 H Ur Leukocyte Esterase Negative Urine RBC 0-2 Urine WBC 0-2 Ur Epithelial Cells Few Urine Crystals Negative Urine Bacteria Negative Urine Casts Negative Urine Mucus Negative Ur Culture Indicated? No Urine Glucose Negative COVID-19 Source SARS-CoV-2 (PCR) Influenza Type A (PCR) Influenza Type B (PCR) RSV (PCR) 01/09/23 01/09/23 01/09/23 16:44 16:44 16:44 WBC 8.40 RBC 4.76 Hgb 14.4 Hct 43.1 MCV 91 MCH 30.3 MCHC 33.4 RDW 13.1 Plt Count 196 MPV 12.7 H Immature Gran % 0.2 Neutrophils % 55.6 Band Neutrophils % Lymphocytes % 31.8 Atypical Lymphs % Monocytes % 8.9 Eosinophils % 2.5 Basophils % 1.0 Metamyelocytes % Myelocytes % Promyelocytes % Other Cells % Nucleated RBC % 0.0 Absolute Neutrophils 4.67 Absolute Lymphocytes 2.67 Absolute Monocytes 0.75 Absolute Eosinophils 0.21 Absolute Basophils 0.08 RBC Morphology Polychromasia Hypochromasia Poikilocytosis Basophilic Stippling Anisocytosis Microcytosis Macrocytosis Spherocytes Tear Drop Cells Ovalocytes Stomatocytes Perez[place] Bodies [place] Cells/Echinocytes Acanthocytes (Spur) Schistocytes D-Dimer 614 H Sodium 138 Potassium 3.8 Chloride 104 Carbon Dioxide 26.2 Anion Gap 7.8 BUN 13 Creatinine 0.8 Est GFR (CKD-EPI 2020) 83.26 Glucose 93 Hemoglobin A1c Calcium 9.2 Magnesium 2.0 Total Bilirubin 0.6 AST 49 H ALT 50 Alkaline Phosphatase 145 H Troponin I 53 Total Protein 7.7 Albumin 3.6 TSH 2.34 Urine Color Urine Clarity Urine pH Ur Specific [place] Urine Protein Urine Ketones Urine Blood Urine Nitrite Urine Bilirubin Urine Urobilinogen Ur Leukocyte Esterase Urine RBC Urine WBC Ur Epithelial Cells Urine Crystals Urine Bacteria Urine Casts Urine Mucus Ur Culture Indicated? Urine Glucose COVID-19 Source SARS-CoV-2 (PCR) Influenza Type A (PCR) Influenza Type B (PCR) RSV (PCR) 01/09/23 01/09/23 01/09/23 16:12 16:12 16:12 WBC Cancelled RBC Cancelled Hgb Cancelled Hct Cancelled MCV Cancelled MCH Cancelled MCHC Cancelled RDW Cancelled Plt Count Cancelled MPV Cancelled Immature Gran % Cancelled Neutrophils % Cancelled Band Neutrophils % Cancelled Lymphocytes % Cancelled Atypical Lymphs % Cancelled Monocytes % Cancelled Eosinophils % Cancelled Basophils % Cancelled Metamyelocytes % Cancelled Myelocytes % Cancelled Promyelocytes % Cancelled Other Cells % Cancelled Nucleated RBC % Cancelled Absolute Neutrophils Cancelled Absolute Lymphocytes Cancelled Absolute Monocytes Cancelled Absolute Eosinophils Cancelled Absolute Basophils Cancelled RBC Morphology Cancelled Polychromasia Cancelled Hypochromasia Cancelled Poikilocytosis Cancelled Basophilic Stippling Cancelled Anisocytosis Cancelled Microcytosis Cancelled Macrocytosis Cancelled Spherocytes Cancelled Tear Drop Cells Cancelled Ovalocytes Cancelled Stomatocytes Cancelled [place] Bodies Cancelled Robin Cells/Echinocytes Cancelled Acanthocytes (Spur) Cancelled Schistocytes Cancelled D-Dimer Cancelled Sodium Cancelled Potassium Cancelled Chloride Cancelled Carbon Dioxide Cancelled Anion Gap Cancelled BUN Cancelled Creatinine Cancelled Est GFR (CKD-EPI 2020) Cancelled Glucose Cancelled Hemoglobin A1c Calcium Cancelled Magnesium Cancelled Total Bilirubin Cancelled AST Cancelled ALT Cancelled Alkaline Phosphatase Cancelled Troponin I Cancelled Total Protein Cancelled Albumin Cancelled TSH Cancelled Urine Color Urine Clarity Urine pH Ur Specific [place] Urine Protein Urine Ketones Urine Blood Urine Nitrite Urine Bilirubin Urine Urobilinogen Ur Leukocyte Esterase Urine RBC Urine WBC Ur Epithelial Cells Urine Crystals Urine Bacteria Urine Casts Urine Mucus Ur Culture Indicated? Urine Glucose COVID-19 Source SARS-CoV-2 (PCR) Influenza Type A (PCR) Influenza Type B (PCR) RSV (PCR) 01/09/23 15:59 WBC RBC Hgb Hct MCV MCH MCHC RDW Plt Count MPV Immature Gran % Neutrophils % Band Neutrophils % Lymphocytes % Atypical Lymphs % Monocytes % Eosinophils % Basophils % Metamyelocytes % Myelocytes % Promyelocytes % Other Cells % Nucleated RBC % Absolute Neutrophils Absolute Lymphocytes Absolute Monocytes Absolute Eosinophils Absolute Basophils RBC Morphology Polychromasia Hypochromasia Poikilocytosis Basophilic Stippling Anisocytosis Microcytosis Macrocytosis Spherocytes Tear Drop Cells Ovalocytes Stomatocytes [place] Bodies [place] Cells/Echinocytes Acanthocytes (Spur) Schistocytes D-Dimer Sodium Potassium Chloride Carbon Dioxide Anion Gap BUN Creatinine Est GFR (CKD-EPI 2020) Glucose Hemoglobin A1c Calcium Magnesium Total Bilirubin AST ALT Alkaline Phosphatase Troponin I Total Protein Albumin TSH Urine Color Urine Clarity Urine pH Ur Specific [place] Urine Protein Urine Ketones Urine Blood Urine Nitrite Urine Bilirubin Urine Urobilinogen Ur Leukocyte Esterase Urine RBC Urine WBC Ur Epithelial Cells Urine Crystals Urine Bacteria Urine Casts Urine Mucus Ur Culture Indicated? Urine Glucose COVID-19 Source Nasopharynx SARS-CoV-2 (PCR) Negative Influenza Type A (PCR) Negative Influenza Type B (PCR) Negative RSV (PCR) Negative PFSH All Active Problems Elevated AST (SGOT) (Acute) Discharge planning issues (Acute) DVT prophylaxis (Acute) Chest pain (Acute) Traumatic tear of left rotator cuff (Acute ~03/2022) Bronchitis, acute (Acute) Actinic keratoses (Acute) Seborrheic keratoses, inflamed (Acute) Atypical nevus (Acute) Lipoma of arm (Acute) Mild intermittent asthma without complication (Acute 11/08/15) Coronary arteriosclerosis (Acute) Medical History Arthritis of left acromioclavicular joint s/p distal clavicle excision, 04/28/20 Asthma Atypical chest pain Pt. states They don't know what it is, Dr. Oglesby thinks its just muscular, and not cardiac related Bursitis of left shoulder Chronic back pain Chronic constipation Colicky RUQ abdominal pain Complete tear of right rotator cuff (12/03/17) COVID-19 De Quervain's tenosynovitis, left Depression Elevated cholesterol Fatigue GERD (gastroesophageal reflux disease) pt. denies this HTN (hypertension) Hypothyroidism Impingement syndrome of left shoulder Insomnia Left wrist pain Migraines Normal colonoscopy (~01/13/22) MOISES (obstructive sleep apnea) Overactive bladder Rectal bleed Rectal bleeding Screening for colon cancer Seborrheic keratosis (12/15/16) upper back of left arm Skin lesion SVT (supraventricular tachycardia) Tendonitis of left rotator cuff Injection: 08/04/2019 Trochanteric bursitis of right hip Trochanteric bursitis, left hip S/P ITB tenotomy and bursal debridement DOS: 12/24/18 Dr. 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 Perez History of cardiac cath Non-obstructive CAD, Elevated LV end diastolic pressure. no stents History of colonoscopy (~01/13/22) Hx of breast biopsy Left carpal tunnel syndrome S/P ECTR: 03/23/2020 Left rotator cuff tear s/p arthroscopic rotator cuff repair 04/28/20 s/p arthroscopic revision rotator cuff repair: 08/11/2020 Oophrectomy, Left with hyst , Ectopic (~1983) Right carpal tunnel syndrome S/P ECTR: 03/23/2020 Status post right rotator cuff repair Right repeat rotator cuff repair, also has had left RTC repaired. Date of surgery: 04/16/18 Dr. Perez Family History Mother Essential hypertension Spinal stenosis Stroke Atrial fibrillation Father Essential hypertension Heart disease Myocardial infarction Brother Atrial fibrillation Essential hypertension Prostate cancer Social History Smoking/Tobacco Use Status: Former Tobacco Use Quit Date: 09/17/84 Pack-years: 12 Smoking risk assessment performed?: Yes Alcohol Intake: never Drug use: Never Substance use type: does not use Household members: significant other Number of Children: 1 Current gender identity: female Seatbelt use: sometimes Do you feel safe at home: Yes Do you feel safe in your relationship?: Yes Additional Social history: Quit smoking 1984. Lives with in [place]. Retired, helps care for grandkids. Time Spent with Patient Time Spent with Patient: <45 minutes Time was spent: preparing to see the patient(eg.review tests), obtaining and/or reviewing separately otained hiistory, ordering medications,tests, procedures, indepentently interpreting results, counseling the patient and care coordination
--- NOTE | 2023-01-10 14:48 | CHAPLAIN ---
Agatha was up in the chair when I visited. Her daughter was with her. Agatha said she's waiting for more information from the hospitalist. A cardiac test she was waiting to have inhouse may be done outpatient now, she said. She's looking forward to having more answers and explanations for what she her symptoms mean.
[2023-01-10 15:01] VITALS: BP 128/78; PULSE 64; RESP 18; TEMP 37.1; O2SAT 95
--- NOTE | 2023-01-10 15:07 | PDOC.CMDIS ---
- If Service Date Differs Date of service: 01/10/23 Time of Service: 15:07 LACE Index Scoring Tool - Questions: Length of Stay (in days): 1 Acuity (Admit via E.D.?): Yes E.D. Visits: 4 - Answers: Total Score: 8 Risk of Readmission: Low Risk Care Management Discharge Reason for Hospitalization: Chest Pain Discharge Plan: Agatha is discharged home with a cardiac event recorder and Outpatient MPI stress test is ordered. She will be driven by family and plans to follow up with community providers and her discharge plan of care as prescribed. No new services are ordered. Patient/Family Education Needs: Review discharge instructions, limitations and plan to follow up with community providers. Discuss ask me three.
== END 2023-01-10 16:31 | disposition home or self-care (01) ==
LOC: ER 20:15 → MS 20:44
PROVIDERS: Internal Medicine; Admitting Provider Family Medicine; Emergency Provider Nurse Practitioner Family; PCP Internal Medicine; Visit Provider Family Medicine
DX: R07.89 Other chest pain (principal); I25.10 Atherosclerotic heart disease of native coronary artery without angina pectoris; J45.20 Mild intermittent asthma, uncomplicated; I47.1 Supraventricular tachycardia; R73.03 Prediabetes; E03.9 Hypothyroidism, unspecified; R42 Dizziness and giddiness; R25.1 Tremor, unspecified; R11.0 Nausea; G43.909 Migraine, unspecified, not intractable, without status migrainosus; Z79.899 Other long term (current) drug therapy; I10 Essential (primary) hypertension; R79.89 Other specified abnormal findings of blood chemistry; E78.5 Hyperlipidemia, unspecified; R53.1 Weakness; G47.33 Obstructive sleep apnea (adult) (pediatric)
CPT/HCPCS: 36415; 36416; 80053; 82962; 87637; 93005; 93270; 96372; 99285; J1650; 70450; 81003; 81015; 83036; 83735; 84443; 84484; 85025; 85379; 93010; 94668; 99232; 99239; G0378

== ENCOUNTER 2023-01-10 16:29 | Outpatient (RCR) | payer MEDICAID, SELFPAY | END 2023-01-14 23:59 | disposition home or self-care (01) | LOC: RT 16:29 | PROVIDERS: PCP Internal Medicine; Visit Provider Internal Medicine | CPT/HCPCS: 93270 ==

== ENCOUNTER 2023-01-11 05:48 | Outpatient (CLI) | payer MEDICAID, SELFPAY ==
--- NOTE | 2023-01-11 07:00 | DI.NM_ITS ---
APPROVED REPORT Exam: Pharmacologic Patient Location: Out-Patient Room/Bed: Stress Nurse: Kenyatta Kumar RN Ordering Provider:CONCEPCIÓN LOOMIS, Contact Number: [phone] BMI: 34.76 Baseline Rhythm: Sinus Rhythm Indications: Chest pain, dizziness, h/o non diagnostic ETT Medical History Medical History: Hypertension, hyperlipidemia, asthma, COPD, obesity, prediabetes, MOISES, coronary rip riosclerosis, chest pain, DVT, gerd Cardiac Medications: Rosuvastatin, levothyroxine, diltiazem, aspirin, ezetimibe Allergies: Tetrabenazine, hydrocodone morhpine, amoxicillin Cardiac Risk Factors: Hypertension, hyperlipidemia, prediabetes, smoker (former), obesity, asthma, [place] PD, CVD, family hx Previous Cardiac Procedures: cath Pretest Chest Pain Characteristics: 3/10 midsternal chest discomfort Exercise History: Sedentary Physical Disabilities: None Lung Sounds: Clear to auscultation Heart Sounds: Regular Stress Test Details Test: Exercise stress converted to pharmacologic stress due to failure to obtain a diagnostic stress test. Reason for pharmacologic stress test: physical limitation. Nuclear Acquisition: Rest Tc-99m/Stress Tc-99m 1 day Rest Isotope: Tc-99m Sestamibi. Dose: 10.9 Date: 01/11/2023 Injection Time: 0950 Stress Isotope: Tc-99m Sestamibi. Dose: 32.8 Date: 01/11/2023 Injection Time: 1130 HR Resting HR Supine: 63 bpm Max Heart Rate (APMHR): 158.460464 bpm Resting HR Stand[place] bpm Target HR (85% APMHR): 134.700746 bpm Max HR Achieved: 112 bpm % of APMHR: 70.89 Recovery HR: 83 bpm BP Resting BP Supine: 150/78 mmHg Resting BP Standin/88 mmHg Max BP: 188/98 mmHg Recovery BP: 140/70 mmHg ECG Resting ECG: Sinus Rhythm Ectopy: None Stress ECG: Sinus Tachycardia ST Change: No significant ST segment changes noted, Nondiagnostic low heart rate Arrhythmia: None Recovery ECG: Sinus Rhythm Recovery ST Change: No significant ST segment changes noted, Nondiagnostic low heart rate Clinical Stress Symptoms: General Fatigue, Dyspnea Exercise capacity: 2.50 METs Angina Score: None Rate Pressure Product: [id number] Stress ECG Conclusion 1. The resting electrocardiogram showed poor R wave progression 2. Patient underwent testing using a combination of low-level exercise and pharmacologic stress with regadenoson 3. Peak heart rate achieved was 71% of predicted for age 4. The electrocardiographic portion of the test was nondiagnostic 5. See MPI report Stress Test Summary STAGE Time (mins) Speed (mph) Grade (%) HR BP SpO2 SYMPTOMS METS Supine 63 150/78 Standing 82 144/88 97% 1 min post Lexiscan injection 109 188/90 96% Mild SOB, nausea 3 min post Lexiscan injection 86 158/68 96% Symptoms improving 6 min post Lexiscan injection 83 140/70 SOB resolved, nausea still improving Pt was willing to try Michelet protocol. During first stage, patient asked to convert to pharmacologic t esting due to physical limitations with knee. Pharmacologic stress was paired with low level exercise at 1.4mph and 0-2.5% grade. Pt tolerated testing well. Side effects from Regadenoson resolved during recovery. MPI Conclusion Myocardial perfusion is normal. There is no ischemia or evidence of prior infarction Ejection fraction is 80% with normal wall motion Radiologist Interpretation Radiologist Interpretation by: Eduardo Sotelo MD Interpretation Date/Time: 01/11/2023 17:19:02
[2023-01-11] MEDS: Regadenoson 0.4 MG/5 ML SYR IVP (12:01)
== END 2023-01-11 06:08 ==
PROVIDERS: PCP Internal Medicine; Visit Provider Family Medicine
DX: R07.89 Other chest pain (principal)
CPT/HCPCS: 78452; 93017; J2785

== ENCOUNTER 2023-02-01 08:19 | Outpatient (CLI) | payer MEDICAID, SELFPAY ==
--- NOTE | 2023-02-01 08:59 | W.CARDEVENT ---
Date of service: 02/01/23 Time of Service: 08:59 Cardiac Event Recorder Referring Provider:: Robe Padgett Indications:: Chest pain and SVT Cardiac Event Note: This is a cardiac event monitor ordered for chest pain and SVT. Patient was monitored for a total of 7 days Rhythm throughout was sinus. Average heart rate was 71. Minimum was 57, maximum 147 there were no significant ventricular or supraventricular dysrhythmias Patient symptoms corresponded to sinus tachycardia
== END 2023-02-01 08:20 | disposition home or self-care (01) ==
LOC: CARDOPNVT 08:19
PROVIDERS: PCP Internal Medicine; Visit Provider Internal Medicine Cardiovascular Disease
DX: R07.9 Chest pain, unspecified (principal); I47.1 Supraventricular tachycardia

== ENCOUNTER 2023-04-05 13:45 | Outpatient (CLI) | payer MEDICAID, SELFPAY ==
[2023-04-05 13:47] LABS: ESR 41 mm/hr (0-30)
[2023-04-05 16:35] LABS: C-Reactive Protein 0.24 mg/dL (0.0-0.3)
== END 2023-04-05 13:46 | disposition home or self-care (01) ==
LOC: LBO 13:45
PROVIDERS: Nurse Practitioner Adult Health; PCP Internal Medicine; Visit Provider Family Medicine
DX: H53.9 Unspecified visual disturbance (principal); H57.89 Other specified disorders of eye and adnexa
CPT/HCPCS: 36415; 85652; 86140

== ENCOUNTER 2023-04-11 02:23 | Outpatient (CLI) | payer MEDICAID, SELFPAY ==
--- NOTE | 2023-04-11 15:44 | DI.MAMMO_ITS ---
Exam(s) MAMMO DIAGNOSTIC BI EXAM: MAMMO DIAGNOSTIC BI CLINICAL HISTORY: LT BREAST TENDERNESS, N64.59; RT BREAST SCREENING. TECHNIQUE: Craniocaudal and mediolateral oblique Full Field Digital Mammography views of the bilater al breast with Computer Aided Diagnosis. COMPARISON: Comparison is made with prior examinations. FINDINGS: Mammography/Tomosynthesis: Masses/Architectural Distortion: None seen. Microcalcifictions: No suspicious pleomorphic-type are seen. Skin Thickening/Nipple Retraction: None. IMPRESSION: 1. No evidence of malignancy is noted. 2. Unless there is more urgent need, follow-up screening mammography is recommended, as per [employer] guidelines. 3. The findings were discussed with the patient on the date of the examination. BI-RADS Category 1 - Negative Breast Density - Category B - Scattered areas of fibroglandular density Breast density Category C or D implies that the patient has dense breast tissue. Dense breast tissue can make it harder to find cancer on a mammogram. Dense breast tissue is also associated with an incr eased risk of breast cancer. This information about the result of the mammogram report was provided to the patient to raise their awareness. Use this report when you speak with the patient about their risks for breast cancer, which includes their family history. At that time, you may recommend additional screening tests (Ultrasoun d or MRI) as these tests may add significant information. A negative radiographic report should not delay biopsy if a dominant or clinically suspicious mass is present. Up to ten percent of cancers are not identified on mammography. A negative report may reinforce clinical impression. Adenosis and dense breasts may obscure an underlying neoplasm. False positive reports average 6 to 10%. Patient will receive a letter notifying them of these results.
== END 2023-04-11 02:43 ==
PROVIDERS: PCP Internal Medicine; Visit Provider Internal Medicine
DX: Z12.31 Encounter for screening mammogram for malignant neoplasm of breast (principal)
CPT/HCPCS: 77062; 77066; G0279

== ENCOUNTER → 2023-05-02 01:17 | Outpatient (CLI) | payer MEDICAID, SELFPAY ==
--- NOTE | 2023-05-02 | DI.RAD_ITS ---
Exam(s) XR LUMBAR SPINE COMPLETE EXAM: XR LUMBAR SPINE COMPLETE CLINICAL HISTORY: PROGRESSIVE LOW BACK PAIN,M54.50. TECHNIQUE: 2D digital imaging was performed. Five views. COMPARISON: DX XR DEXA BONE DENSITY W/WO JOSIAH from 03/04/2019 FINDINGS: BONES: No fracture or destructive lesion. Vertebral body heights are maintained. Small endplate oste ophytes. Wrjc-ub-pikfbird facet hypertrophy identified L3-4 through L5-S1. DISKS: Mild narrowing of the L3-4 and L4-5 disc spaces. Moderate narrowing of the L5-S1 disc spaces. ALIGNMENT: Lumbar spinal alignment is within normal limits. SOFT TISSUE: Right upper quadrant surgical clips. IMPRESSION: Degenerative changes, greatest at L5-S1. DATA REPOSITORY: RADIATION DOSE DELIVERED:
== END ==
PROVIDERS: PCP Internal Medicine; Visit Provider Internal Medicine
DX: M51.37 Other intervertebral disc degeneration, lumbosacral region (principal)
CPT/HCPCS: 72110

== ENCOUNTER → 2023-05-22 01:22 | Outpatient (CLI) | payer MEDICAID, SELFPAY ==
--- NOTE | 2023-05-22 15:00 | DI.MRI_ITS ---
Exam(s) MR LUMBAR SPINE WO EXAM: MR LUMBAR SPINE WO CLINICAL HISTORY: LOW BACK PAIN, M54.50. TECHNIQUE: Multiplanar multisequence MRI of the Lumbar spine was performed. COMPARISON: CT CT RENAL COLIC WO from 09/09/2022 CR XR LUMBAR SPINE COMPLETE from 05/02/2023 FINDINGS: Conus medullaris is at normal level. There is no evidence of conus mass nor subjacent clumping of in trathecal nerve roots to suggest arachnoiditis. The distal thecal sac appears unremarkable.There is no evidence of Tarlov intrasacral cysts nor other significant findings within the sacral canal Bones:There are no fractures nor ominous osseous lesions in the lumbar vertebral bodies and visualize d sacrum. Benign intraosseous hemangiomas are noted posterior aspect L2 and T12 vertebral bodies. With respect to the individual levels... T12-L1: Unremarkable L1-2: Normal disc height and signal. No disc herniation nor central canal stenosis.No foraminal steno sis L2-3: Normal disc height. No disc herniation nor central canal stenosis.No foraminal stenosis.No face t arthropathy. L3-4: Normal disc height. Symmetrical mild annular bulging without a dominant disc herniation. Cent ral canal dimensions lower normal.Mild bilateral facet arthropathy.No significant foraminal stenosis. L4-5: Normal disc height. However, posteriorly there is a central-slightly right of center disc prot rusion extending posteriorly 2 millimeters and approximately 12 mm wide. This indents the thecal sac . Disc protrusion does not extend into the exiting neural foramina. There is no foraminal stenosis. No significant degenerative changes evident in the facet joints. L5-S1: This level exhibits moderate disc space narrowing and mild degenerative anterolisthesis L5 upo n S1 due to facet arthropathy bilaterally. Central canal dimensions are lower normal. There are sig nificant degenerative changes in both facet joints. No significant foraminal stenosis evident at thi s level. Soft tissues: Cyst in left kidney noted. IMPRESSION: 1. There is a central posterior slightly right of center disc protrusion at L4-5 level extending post eriorly 2 millimeters and approximately 12 mm wide, indenting the thecal sac at this level. Disc her niation does not extend into the exiting neural foramina and there is no foraminal stenosis on either side at this level. 2. There is mild degenerative anterolisthesis of L5 upon S1. This related to facet arthrosis. There are no pars defects at L5 level evident. DATA REPOSITORY:
== END ==
PROVIDERS: PCP Internal Medicine; Visit Provider Internal Medicine
DX: M43.16 Spondylolisthesis, lumbar region (principal)
CPT/HCPCS: 72148

== ENCOUNTER 2023-07-06 08:32 | Outpatient (CLI) | payer MEDICAID, SELFPAY ==
--- NOTE | 2023-07-06 08:15 | DI.RAD_ITS ---
Exam(s) XR KNEE RT 2V AP,LAT EXAM: XR KNEE RT 2V AP,LAT CLINICAL HISTORY: right knee pain. TECHNIQUE: 2D digital imaging was performed. COMPARISON: No exams were available for comparison FINDINGS: Two views Satisfactory position alignment of components of the prosthesis of the right knee. No fracture or lo osening evident. IMPRESSION: Satisfactory appearance. DATA REPOSITORY: RADIATION DOSE DELIVERED:
== END 2023-07-06 08:33 | disposition home or self-care (01) ==
LOC: DIORS 08:32
PROVIDERS: PCP Internal Medicine; Visit Provider Physician Assistant
DX: Z96.651 Presence of right artificial knee joint (principal); Z47.1 Aftercare following joint replacement surgery; M25.561 Pain in right knee
CPT/HCPCS: 73560

== ENCOUNTER 2023-07-23 09:20 | Outpatient (REF) | payer MEDICAID, SELFPAY ==
--- NOTE | 2023-07-23 09:15 | SKI_PTH ---
PATIENT: Agatha Yi LOC: [facility]#:[id number] AGE/SX: 63/F ROOM: RE07/23/[address]: Kiki Sykes MD : [id number] BED: DIS: 07/23/2023 SPEC #: [id number] RECD: 07/23/23 12:34 STATUS: JOE REQ #: [id number] VASQUEZ: 07/23/23 09:[address]: Kiki Sykes DEPT: Surgical Specimen RECD BY: Juliana Carvajal ENTERED: 07/23/23 12:35 SP TYPE: RAJNI SHETH DR: Kerry Ascencio Tissues: 1 - SKIN BIOPSY(SHAVE/PUNCH) Procedures: SKIN LEVEL 4 Comments: [id number]
== END 2023-07-23 09:21 | disposition home or self-care (01) ==
LOC: LBN 09:20
PROVIDERS: PCP Internal Medicine; Visit Provider Surgery
DX: D18.01 Hemangioma of skin and subcutaneous tissue (principal)
CPT/HCPCS: 88305

== ENCOUNTER 2023-08-07 09:49 | Outpatient (CLI) | payer MEDICAID, SELFPAY ==
--- NOTE | 2023-08-07 09:30 | DI.RAD_ITS ---
Exam(s) XR SHOULDER LT COMPLETE 2+V EXAM: XR SHOULDER LT COMPLETE 2+V CLINICAL HISTORY: LEFT SHOULDER PAIN. TECHNIQUE: 2D digital imaging was performed of the left shoulder. Three images were obtained. AP, Grashey and Y views were obtained. COMPARISON: CR XR SHOULDER LT COMPLETE 2+V from 01/04/2021 FINDINGS: BONES: No acute fracture is present. No bony destructive lesion is seen. JOINTS: No dislocation present. Stable postsurgical changes at the acromioclavicular joint. The luigi ohumeral joint is well maintained. SOFT TISSUE: The visualized lung mohamud are clear. IMPRESSION: No acute abnormality. DATA REPOSITORY: RADIATION DOSE DELIVERED:
== END 2023-08-07 09:50 | disposition home or self-care (01) ==
LOC: DIORS 09:49
PROVIDERS: PCP Internal Medicine; Visit Provider Student in an Organized Health Care Education/Training Program
DX: M25.512 Pain in left shoulder (principal)
CPT/HCPCS: 73030

== ENCOUNTER 2023-08-23 11:03 | Outpatient (CLI) | payer MEDICAID, SELFPAY ==
[2023-08-23 11:14] VITALS: BP 128/80; PULSE 73; RESP 20; TEMP 36.7; O2SAT 94
--- NOTE | 2023-08-23 11:50 | DI.RAD_ITS ---
Exam(s) XR PAIN CLINIC LUMBAR SP 2V EXAM: XR PAIN CLINIC LUMBAR SP 2V CLINICAL HISTORY: DX: Lumbar spondylosis. TECHNIQUE: Fluoroscopy was provided for the referring physician for guidance with performing pain cl inic injection procedure. COMPARISON: No exams were available for comparison FINDINGS: Please see procedure note for details. Fluoro time: 56.8 seconds RADIATION DOSE DELIVERED: Gabinor=14.9 mGy
[2023-08-23 11:53] VITALS: BP 144/95; PULSE 75; RESP 25; O2SAT 95
[2023-08-23] MEDS: Bupivacaine 0.5% Pres-Free 10 ML VIAL IJ (11:55)
[2023-08-23] MEDS: Omnipaque 240 MG/ML 50 ML BTL IJ (11:55)
--- NOTE | 2023-08-24 11:51 | PDOC.PAIN ---
Date of service: 08/23/23 Time of Service: 12:00 Pain Managment Procedure Note Procedure Note Procedure Note: PROCEDURE NOTE Bilateral Lumbar Medial Branch Blocks #1 Date of Service: August 23, 2023 Patient: Agatha Yi Provider: Ken Jackson DO, MPH Agatha Yi has been referred to the [facility] for lumbar medial branch blocks. Pre-operative diagnosis: Lumbar Spondylosis without Myelopathy Post-operative diagnosis: Same Pre-procedure pain: VAS= 7/10 COMMENTS: I previously evaluated her in the office. Carlos Alberto was interviewed and the medical records were reviewed. There were no medical, pharmacologic, radiographic or other structural contraindications to attempting fluoroscopically guided local anesthetic lumbar medial branch blocks. Risks and potential side effects were discussed. I also discussed the potential benefit(s) of the procedure with Agatha, and voiced concerns were addressed. After Agatha was completely informed about the procedure, the printed consent form was signed. A standard time-out procedure was performed. Agatha was placed in the prone position on the fluoroscopy table. Automated blood pressure cuff and pulse oximeter were applied. The skin entry points for approaching the anatomic target points of the segmental medial branches of bilateral L3,L4,L5 were identified with fluoroscopy and marked. The skin at the target site area was thoroughly prepared with Chlorhexadine. The skin was then draped. Next, a 25 gauge 3.5 spinal needle was placed under fluoroscopic guidance down on to the target point (the articular pillar) for each respective segmental medial branch. Position was confirmed in A/P and lateral views. Aspiration revealed no blood or clear fluid. Next, 0.25ml of omnipaque 240 was injected at each level. No contrast following a vascular or neural pattern was visualized under continuous fluoroscopy. Next, 0.25 ml of preservative-free 0.5% bupivicaine was injected at each level. There was no unusual discomfort expressed by Agatha. The needles were withdrawn without difficulty. (49 mls of Omnipaque was wasted) Agatha was observed and was without hemodynamic, neurologic, or allergic reactions.? Fluoroscopic images were digitally archived. Provacative testing using the Modified Hill's facet loading test- Left side Right Side Directly before the block VAS (0-10) = 7/10 VAS (0-10) = 7/10 Five minutes after the block VAS (0-10) = 1/10 VAS (0-10) = 1/10 Percentage relief obtained with this diagnostic block 90% 90% Any improved physical functioning directly after the blocks? Able to move her back with ease. Follow up plans and appointments were discussed with Agatha. Agatha was instructed to keep careful note of how the usual pain was modified by these injections. Specifically, to keep a pain diary for the next 4 hours using a numeric pain scale of 0-10 and report these results. Post procedure instruction was given as documented in the nursing documentation and having met discharge criteria, the patient was [facility]. Based on the medial branches blocked today, if they patient has adequate relief and we are able to proceed to radiofrequency ablation, the treatment should result in the denervation of the bilateral L4-L5 and L5-S1 facet joints. We would expect to denervate a total of 4 facets during the radiofrequency ablation. COMMENTS: No apparent complications. Post-procedure pain: VAS= 1/10 Agatha will call back with 0-4 hour post-procedure pain scores. I personally performed the entire procedure. KEN JACKSON DO, MPH ABPM&R-subspecialty board certification in Pain Medicine [facility] [place] [facility]
== END 2023-08-23 11:04 | disposition home or self-care (01) ==
LOC: PC 11:03
PROVIDERS: PCP Internal Medicine; Visit Provider Preventive Medicine Occupational Medicine
DX: M47.816 Spondylosis without myelopathy or radiculopathy, lumbar region (principal)
CPT/HCPCS: 00123; 64493; 64494; 72100; Q9967

== ENCOUNTER 2023-09-21 02:32 | Outpatient (CLI) | payer MEDICAID, SELFPAY ==
[2023-09-21 11:47] LABS: Abs Immature Grans 0.01 10^3/uL (0.0-0.06); Absolute Eosinophil Count 0.32 10^3/uL (0.0-0.7); Absolute Lymphocyte Count 2.76 10^3/uL (1.2-3.4); Absolute Monocyte Count 0.38 10^3/uL (0.1-0.8); Basophils % 1.3; Eosinophils % 4.2; HGB 15.4 g/dL (11.2-15.7); Immature Grans % 0.1; MCH 30.7 pg (27.0-33.0); MCHC 33.5 % (32.0-36.0); MCV 92 fL (80-95); MPV 12.4 fL (8.0-11.0); Neutrophils % 53.4; Platelet Count 243 10^3/uL (130-400); RBC 5.01 10^6/uL (3.93-5.22); WBC 7.67 10^3/uL (4.4-10.8)
[2023-09-21 12:30] LABS: ALT 76 U/L (14-59); AST 82 U/L (15-37); Albumin 3.6 g/dL (3.4-5.0); Alkaline Phosphatase 168 U/L (46-116); BUN 11 mg/dL (7-18); Calcium 9.8 mg/dL (8.5-10.1); Chloride 103 mmol/L (98-107); Glucose 135 mg/dL (74-106); Potassium 3.8 mmol/L (3.5-5.1); Sodium 141 mmol/L (136-145); TSH 2.53 uIU/mL (0.36-3.74); Total Protein 8.1 g/dL (6.4-8.2)
== END 2023-09-21 02:33 | disposition home or self-care (01) ==
LOC: LBO 02:32
PROVIDERS: PCP Internal Medicine; Visit Provider Internal Medicine
DX: E66.9 Obesity, unspecified (principal); R82.90 Unspecified abnormal findings in urine; I10 Essential (primary) hypertension
CPT/HCPCS: 36415; 80053; 81003; 83036; 84443; 85025

== ENCOUNTER 2023-09-27 10:20 | Outpatient (REF) | payer MEDICAID, SELFPAY ==
[2023-09-30 11:15] LABS: Creatinine,Urine 186.45 mg/dL; Sodium, Urine 120 mmol/L
[2023-09-30 11:17] LABS: CLEAVED CELLS 72 mmol/24h (40-220); Creatinine,24hr Ur 1.12 g/24hr (0.60-1.80); Total Volume 600 ml
[2023-10-01 09:53] LABS: Calcium Urine 14.4 mg/dL (See Note); Calcium Urine 24 hr Unable to calculate mg/24 h (<200); Timed Urine Volume 600 mL
[2023-10-01 10:09] LABS: Magnesium Random Urine 2.3 mg/dL (See Note); Timed Urine Volume 600 mL
[2023-10-02 10:07] LABS: Citrate Excretion, 24hr, U 211 mg/24 h; Urine Volume 600 mL
[2023-10-02 11:52] LABS: Oxalate, U 0.07 mmol/24 h; Oxalate, U 6.2 mg/24 h (9.7 - 40.5); Urine Volume 600 mL
[2023-10-16 13:32] LABS: Misc Referral (MAYO) See Comments
[2023-10-16 13:35] LABS: Misc Referral (MAYO) See Comments
== END 2023-09-27 10:21 | disposition home or self-care (01) ==
LOC: LBN 10:20
PROVIDERS: PCP Internal Medicine; Visit Provider Urology
DX: N20.0 Calculus of kidney (principal)
CPT/HCPCS: 82507; 83735; 81050; 82340; 82570; 83945; 84105; 84300; 84560

== ENCOUNTER → 2023-10-01 03:06 | Outpatient (CLI) | payer MEDICAID, SELFPAY ==
--- NOTE | 2023-10-01 | DI.MRI_ITS ---
Exam(s) MR UPPER JOINT LT WO EXAM: MR UPPER JOINT LT WO CLINICAL HISTORY: L SHOULDER PAIN,TRAUMATIC TEAR LT ROTATOR CUFF,s46.012A. TECHNIQUE: Multiplanar multisequence MRI was performed. COMPARISON: Plain films 07 August 2023 FINDINGS: Spurring at tip of acromion. BONES: There is no fracture or contusion pattern. Postsurgical changes humeral head. Prior suprasp inatus tendon repair. JOINTS: Prior resection of the distal clavicle. The glenohumeral joint is normal. TENDONS: Supraspinatus: Unremarkable prior tendon repair which appears intact. Infraspinatus: Unremarkable. Subscapularis: Unremarkable. Teres Minor: Unremarkable. Biceps and Gerton: Unremarkable. MUSCLES: Mild supraspinatus and infraspinatus muscle atrophy. GLENOID LABRUM: Unremarkable on this noncontrast examination. SOFT TISSUES: Unremarkable. OTHER: Subacromial and subdeltoid bursae shows minimal fluid.. IMPRESSION: Prior supraspinatus tendon repair which appears intact. No acute rotator cuff tear DATA REPOSITORY:
== END ==
PROVIDERS: PCP Internal Medicine; Visit Provider Student in an Organized Health Care Education/Training Program
DX: S46.012D Strain of muscle(s) and tendon(s) of the rotator cuff of left shoulder, subsequent encounter (principal); X58.XXXD Exposure to other specified factors, subsequent encounter; Z98.890 Other specified postprocedural states
CPT/HCPCS: 73221

== ENCOUNTER 2023-10-02 09:35 | Outpatient (REF) | payer MEDICAID, SELFPAY ==
[2023-10-02 12:26] LABS: Bilirubin Negative (Negative); Blood Negative (Negative); Clarity Clear (Clear); Glucose Negative (Negative); Ketones Negative (Negative); Leukocyte Esterase Trace (Negative); Nitrite Negative (Negative); Specific Gravity 1.025 (1.005-1.025); pH 6.5 (5-8)
[2023-10-02 12:32] LABS: Bacteria Rare HPF (Negative); C & S Indicated? No/Sq. Contamination; Casts Negative LPF (Negative); Crystals Few Calcium Oxalate HPF (Negative); Epithelial Cells Many HPF (Negative); Mucus Negative (Negative); RBC Negative HPF (0-2); WBC 0-2 HPF (0-5)
== END 2023-10-02 09:36 | disposition home or self-care (01) ==
LOC: LBN 09:35
PROVIDERS: PCP Internal Medicine; Visit Provider Internal Medicine
DX: R82.998 Other abnormal findings in urine (principal)
CPT/HCPCS: 81003; 81015

== ENCOUNTER 2023-10-15 09:28 | Emergency (ER) | payer MEDICAID, SELFPAY ==
[2023-10-15 09:38] VITALS: BP 167/89; PULSE 72; RESP 18; TEMP 36.5; O2SAT 94
[2023-10-15 11:00] VITALS: BP 167/89; PULSE 72; RESP 18; TEMP 36.5; O2SAT 94
[2023-10-15] MEDS: diphenhydrAMINE 50 MG/ML VIAL 25 MG IVP (11:20)
[2023-10-15] MEDS: Ketorolac 30 MG/ML VIAL 10 MG IVP (11:21)
[2023-10-15] MEDS: Prochlorperazine 10 MG/2 ML VIAL IVP (11:22)
[2023-10-15] MEDS: Normal Saline 1,000 ML 1000 ML IV (11:32)
--- NOTE | 2023-10-15 12:22 | W.ED.GENAD ---
HPI General Date/Time Provider Initiated Documentation: 10/15/23 09:44. HPI Narrative: 63-year-old female with past medical history including migraine headaches, presents for evaluation of headache. She reports that this headache has been ongoing for the last month. She has received a prescription medication from her doctor. But has not completely resolved the issue. She states that headache significantly worsened over the last 3 days. Pain has been severe. Nausea and photophobia. No vomiting. Not acute onset. She does state that this is probably the worst migraine headache she has ever had. Related Data Home Medications Medication Instructions Recorded Confirmed citalopram 10 mg tablet (Celexa) 20 mg PO DAILY 10/08/13 10/15/23 meclizine 12.5 mg tablet 25 mg PO TID PRN 10/08/13 10/15/23 rosuvastatin 20 mg tablet (Crestor) 40 mg PO DAILY 10/08/13 10/15/23 epinephrine 0.3 mg/0.3 mL 0.3 mg (0.3 mL) IJ PRN PRN 07/21/16 10/15/23 injection, auto-injector Anaphylaxis ##1 acyclovir 200 mg capsule 200 mg PO DIRECTED PRN 06/01/17 10/15/23 cetirizine 10 mg tablet 10 mg PO DAILY 12/20/18 10/15/23 clindamycin HCl 150 mg capsule 150 mg PO PRN 06/01/21 10/15/23 ezetimibe 10 mg tablet 10 mg PO DAILY 06/12/21 10/15/23 aspirin 81 mg tablet,delayed 81 mg PO DAILY 12/22/21 10/15/23 release diltiazem HCl 240 mg capsule,24 240 mg PO DAILY 01/09/23 10/15/23 hr,extended release mirabegron 50 mg tablet,extended 50 mg PO DAILY 01/09/23 10/15/23 release 24 hr (Myrbetriq) albuterol sulfate 90 mcg/actuation 2 puff inhalation Q4H PRN 03/03/23 10/15/23 aerosol inhaler (Proventil HFA) shortness of breath or wheezing #8.5 grams ibuprofen 800 mg tablet 800 mg PO TID 03/08/23 10/15/23 celecoxib 100 mg capsule (Celebrex) 100 mg PO BID 07/16/23 10/15/23 gabapentin 300 mg capsule 300 mg PO BID 07/16/23 10/15/23 levothyroxine 75 mcg tablet 150 mcg PO DAILY 07/16/23 10/15/23 srkbrhwncb-lkkfdavszqnxj-jftkymmq 1 cap PO Q8H PRN headache #14 caps 10/15/23 50 mg-300 mg-40 mg capsule (Fioricet) Previous Rx's Medication Instructions Recorded epinephrine 0.3 mg/0.3 mL 0.3 mg (0.3 mL) IJ PRN PRN 07/21/16 injection, auto-injector Anaphylaxis ##1 albuterol sulfate 90 mcg/actuation 2 puff inhalation Q4H PRN 03/03/23 aerosol inhaler (Proventil HFA) shortness of breath or wheezing #8.5 grams twcyarmeoc-dozwbmqauzaqj-symzbelw 1 cap PO Q8H PRN headache #14 caps 10/15/23 50 mg-300 mg-40 mg capsule (Fioricet) Allergies Allergy/AdvReac Type Severity Reaction Status Date / Time tetrabenazine Allergy Severe RASH,HIVES Verified 10/15/23 11:03 amoxicillin Allergy Intermediate Skin Rash Verified 10/15/23 11:03 hydrocodone [From Vicodin] Allergy Intermediate PRURITIS Verified 10/15/23 11:03 morphine Allergy Intermediate ITCHY, SICK Verified 10/15/23 11:03 peanut Allergy Intermediate Anaphylaxsi Verified 10/15/23 11:03 s tree nut Allergy Intermediate Anaphylaxsi Verified 10/15/23 11:03 s adhesive AdvReac Intermediate RASH AND Verified 10/15/23 11:03 SWELLING alcohol AdvReac Intermediate RASH Verified 10/15/23 11:03 [From Mastisol Liquid Adhesive] gum mastic AdvReac Intermediate RASH Verified 10/15/23 11:03 [From Mastisol Liquid Adhesive] methyl salicylate AdvReac Intermediate RASH Verified 10/15/23 11:03 [From Mastisol Liquid Adhesive] storax AdvReac Intermediate RASH Verified 10/15/23 11:03 [From Mastisol Liquid Adhesive] benzoin AdvReac Mild Skin Rash Verified 10/15/23 11:03 cat dander AdvReac Mild WATERY EYES Verified 10/15/23 11:03 milk AdvReac Unknown Diarrhea Verified 10/15/23 11:03 pollen extracts AdvReac Unknown Itching Verified 10/15/23 11:03 dog dander AdvReac WATERY EYES Verified 10/15/23 11:03 RAW FRUIT Allergy Unknown Uncoded 10/15/23 11:03 DUST AdvReac Unknown Uncoded 10/15/23 11:03 General Stated Complaint: Headache MANNIE: 3 Exam Narrative Exam Narrative: Review of Systems: All systems reviewed & are unremarkable except as noted in HPI and below Well-developed, mild distress NCAT PERRL, normal conjunctiva RRR Unlabored respiratory effort Nondistended abdomen Extremities w/o deformity, no cyanosis, no edema No rashes or lesions. no focal neurologic deficits, no meningeal signs Appropriate mood and affect Course Vital Signs Vital signs: Vital Signs Temperature 36.5 C 10/15/23 09:38 Pulse 72 10/15/23 09:38 Respiratory Rate 18 10/15/23 09:38 Blood Pressure 167/89 H 10/15/23 09:38 Pulse Oximetry 94 10/15/23 09:38 Temperature 36.5 C 10/15/23 11:00 Temperature Source Temporal Artery Scan 10/15/23 11:00 Pulse 72 10/15/23 11:00 Respiratory Rate 18 10/15/23 11:00 Respiratory Effort Normal, Non-Labored 10/15/23 11:00 Blood Pressure 167/89 H 10/15/23 11:00 Blood Pressure Position Sitting 10/15/23 11:00 Pulse Oximetry 94 10/15/23 11:00 Oxygen Delivery Method Room Air 10/15/23 11:00 Oxygen Flow Rate 0 10/15/23 11:00 Pain Level 10 10/15/23 11:00 Medical Decision Making Emergent evaluation of headache. Initial differential includes migraine, dehydration, doubt meningitis, doubt subarachnoid. Patient has no sick signs, no meningeal symptoms. This is not an acute onset headache and has been ongoing for the last month. She has a longstanding history of migraine headaches and this is not atypical for her. I do not feel that the symptoms are consistent with a subarachnoid and I do not feel that she needs additional brain imaging at this time. Will give medications and IV fluids for symptom relief and reassess. After medications, on reevaluation the patient was sitting up in the room lights on sunglasses off and on not having significant pain or symptoms. Will discharge with prescription for Fioricet to take. Advised to increase oral hydration at home. Follow-up with neurology and PCP for further management of ongoing headache process. Medical Records Medical records reviewed: Yes I reviewed the patient's medical records. Quality:SDOH Health Related Social Needs: No Data to Display PFSH All Active Problems Headache (Acute) Lumbosacral spondylosis without myelopathy (Acute) Pes anserinus bursitis of right knee (Acute) 40 mg Depo-Medrol injection: 07/06/2023 History of total right knee replacement (Acute ~2009) Migraine headache without aura (Acute) Daily headache (Acute) Papilledema (Acute) Vision changes (Acute) Discomfort of right eye (Acute) Elevated AST (SGOT) (Acute) Chest pain (Acute) Traumatic tear of left rotator cuff (Acute ~03/2022) Bronchitis, acute (Acute) Actinic keratoses (Acute) Seborrheic keratoses, inflamed (Acute) Atypical nevus (Acute) Lipoma of arm (Acute) Coronary arteriosclerosis (Acute) Mild intermittent asthma without complication (Acute 11/08/15) Medical History Visual disturbance Uterine leiomyosarcoma Urticaria, idiopathic Solitary lung nodule Post-acute COVID-19 syndrome Onychomycosis Lack of energy Idiopathic osteoarthritis Hypoglycemia Hyperlipidemia Herpesviral vesicular dermatitis Fear of flying Eustachian tube disorder Dizziness and giddiness Contact dermatitis Carpal tunnel syndrome BPPV (benign paroxysmal positional vertigo) Angina pectoris Allergic rhinitis Normal colonoscopy (~01/13/22) MOISES (obstructive sleep apnea) Chronic constipation Rectal bleeding SVT (supraventricular tachycardia) Rectal bleed Screening for colon cancer Left wrist pain Skin lesion COVID-19 Impingement syndrome of left shoulder Bursitis of left shoulder Vulvovaginitis (11/03/13) Arthritis of left acromioclavicular joint s/p distal clavicle excision, 04/28/20 De Quervain's tenosynovitis, left Tendonitis of left rotator cuff Injection: 08/04/2019 Atypical chest pain Pt. states They don't know what it is, Dr. Oglesby thinks its just muscular, and not cardiac related Trochanteric bursitis, left hip S/P ITB tenotomy and bursal debridement DOS: 12/24/18 Dr. Perez Trochanteric bursitis of right hip Seborrheic keratosis (12/15/16) upper back of left arm Complete tear of right rotator cuff (12/03/17) Asthma HTN (hypertension) GERD (gastroesophageal reflux disease) pt. denies this Chronic back pain Hypothyroidism Migraines Depression Elevated cholesterol Overactive bladder Fatigue Colicky RUQ abdominal pain Insomnia Surgical History History of arthroscopy of left shoulder (02/10/22) History of colonoscopy (~01/13/22) Hx of breast biopsy Left rotator cuff tear s/p arthroscopic rotator cuff repair 04/28/20 s/p arthroscopic revision rotator cuff repair: 08/11/2020 Right carpal tunnel syndrome S/P ECTR: 03/23/2020 Left carpal tunnel syndrome S/P ECTR: 03/23/2020 History of bursectomy S/P ITB tenotomy and bursal debridement DOS: 12/24/18 Dr. Perez History of cardiac cath Non-obstructive CAD, Elevated LV end diastolic pressure. no stents Status post right rotator cuff repair Right repeat rotator cuff repair, also has had left RTC repaired. Date of surgery: 04/16/18 Dr. Perez Acquired absence of both cervix and uterus (11/08/15) , Ectopic (~1983) Oophrectomy, Left with hyst Abdominal hysterectomy (~2008) for benign reasons FACET INJECTIONS Excision, Skin Mass (12/15/16) Cholecystectomy (02/01/16) Arthroplasty of knee X2 bilat Family History Mother Essential hypertension Spinal stenosis Stroke Atrial fibrillation Father Essential hypertension Heart disease Myocardial infarction Brother Atrial fibrillation Essential hypertension Prostate cancer Spinal stenosis Social History Smoking/Tobacco Use Status: Former Tobacco Use Quit Date: 09/17/84 Pack-years: 12 Smoking risk assessment performed?: Yes Alcohol Intake: former Drug use: Never Substance use type: does not use Household members: significant other Number of Children: 1 Current gender identity: female Seatbelt use: sometimes Do you feel safe at home: Yes Do you feel safe in your relationship?: Yes Additional Social history: Quit smoking 1984. Lives with in [place]. Retired, helps care for grandkids. Discharge Plan Disposition Patient Disposition: Home Discharge Details Clinical Impression: Headache Primary Care Provider: Kerry Ascencio ED Provider: Last Ayoub Home Meds and New Rx's Prescriptions: New xnculwhtda-qgqhgsdvyquaa-iaii [Fioricet] 50-300-40 mg capsule 1 cap PO Q8H PRN (Reason: headache) Qty: 14 0RF No Action albuterol sulfate [Proventil HFA] 90 mcg/actuation HFA aerosol inhaler 2 puff inhalation Q4H PRN (Reason: shortness of breath or wheezing) Qty: 8.5 0RF gabapentin 300 mg capsule 300 mg PO BID celecoxib [Celebrex] 100 mg capsule 100 mg PO BID clindamycin HCl 150 mg capsule 150 mg PO PRN Rx Instructions: prior to dental appt. diltiazem HCl 240 mg capsule,extended release 24 hr 240 mg PO DAILY citalopram [Celexa] 10 MG tablet 20 mg PO DAILY Patient Comments: 10 mg tab and 20 mg tab total 30. meclizine 12.5 MG tablet 25 mg PO TID PRN Patient Comments: prn rosuvastatin [Crestor] 20 MG tablet 40 mg PO DAILY acyclovir 200 MG capsule 200 mg PO DIRECTED PRN aspirin 81 mg tablet,delayed release (DR/EC) 81 mg PO DAILY ibuprofen 800 mg tablet 800 mg PO TID levothyroxine 75 mcg tablet 150 mcg PO DAILY epinephrine 0.3 MG/SYR auto-injector 0.3 mg IJ PRN PRN (Reason: Anaphylaxis) Qty: 1 0RF Myrbetriq 50 mg Tablet Extended Release 24 Hr 50 mg PO DAILY cetirizine 10 mg Tablet 10 mg PO DAILY ezetimibe 10 mg tablet 10 mg PO DAILY Patient Comments: TAKE 1 TABLET BY MOUTH EVERY DAY Discharge Instructions Instructions: General Headache (ED) Additional Instructions: Make sure to drink plenty of water, take medications as prescribed. Follow-up with your primary care provider. Return to the emergency department if your symptoms or not improving. Discharge Data Discharge Date/Time-TO BE ENTERED AT DEPARTURE: 10/15/23 12:37
== END 2023-10-15 12:37 | disposition home or self-care (01) ==
PROVIDERS: Emergency Provider Emergency Medicine; PCP Internal Medicine
DX: R51.9 Headache, unspecified (principal); I10 Essential (primary) hypertension; Z79.82 Long term (current) use of aspirin; Z87.891 Personal history of nicotine dependence
CPT/HCPCS: 96361; 96374; 96375; 99284; J0780; J1200; J1885

== ENCOUNTER 2023-10-17 10:44 | Outpatient (CLI) | payer MEDICAID, SELFPAY ==
[2023-10-17 10:55] VITALS: BP 115/76; PULSE 73; RESP 20; TEMP 36.9; O2SAT 94
--- NOTE | 2023-10-17 11:50 | DI.RAD_ITS ---
Exam(s) XR PAIN CLINIC LUMBAR SP 2V EXAM: XR PAIN CLINIC LUMBAR SP 2V CLINICAL HISTORY: Dx: Lumbar Spondylosis TECHNIQUE: 2D and realtime digital imaging was performed. CONTRAST MATERIAL: Refer to procedure report. COMPARISON: No exams were available for comparison FINDINGS: Fluoroscopy was provided for Dr. Jackson during the performance of a lumbar epidural steroid injection. Please refer to the procedure report for complete details. Ka,r=15.3 mGy IMPRESSION:
[2023-10-17 11:54] VITALS: BP 141/77; PULSE 69; RESP 17; O2SAT 96
[2023-10-17] MEDS: Omnipaque 240 MG/ML 50 ML BTL IJ (11:56)
[2023-10-17] MEDS: Bupivacaine 0.5% Pres-Free 10 ML VIAL IJ (11:56)
[2023-10-17] MEDS: Nerve Block Tray 1 EACH MC (11:56)
--- NOTE | 2023-10-17 17:37 | PDOC.PAIN ---
Date of service: 10/17/23 Time of Service: 12:00 Pain Managment Procedure Note Procedure Note Procedure Note: PROCEDURE NOTE Bilateral Lumbar Medial Branch Blocks Date of Service: October 17, 2023 Patient: Agatha Yi Provider: Ken Jackson DO, MPH Agatha Yi has been [facility] to the [facility] for lumbar medial branch blocks. Pre-operative diagnosis: Lumbar Spondylosis without Myelopathy Post-operative diagnosis: Same Pre-procedure pain: VAS= 8/10 COMMENTS: She did very well with the first LMBBs, but did have irritation with the Chloroprep. We used alcohol on the skin today instead. Carlos Alberto was interviewed and the medical records were reviewed. There were no medical, pharmacologic, radiographic or other structural contraindications to attempting fluoroscopically guided local anesthetic lumbar medial branch blocks. Risks and potential side effects were discussed. I also discussed the potential benefit(s) of the procedure with Agatha, and voiced concerns were addressed. After Agatha was completely informed about the procedure, the printed consent form was signed. A standard time-out procedure was performed. Agatha was placed in the prone position on the fluoroscopy table. Automated blood pressure cuff and pulse oximeter were applied. The skin entry points for approaching the anatomic target points of the segmental medial branches of bilateral L3,L4,L5 were identified with fluoroscopy and marked. The skin at the target site area was thoroughly prepared with alcohol. The skin was then draped. Next, a 25 gauge 3.5 spinal needle was placed under fluoroscopic guidance down on to the target point (the articular pillar) for each respective segmental medial branch. Position was confirmed in A/P and lateral views. Aspiration revealed no blood or clear fluid. Next, 0.25ml of omnipaque 240 was injected at each level. No contrast following a vascular or neural pattern was visualized under continuous fluoroscopy. Next, 0.25 ml of preservative-free 0.5% bupivicaine was injected at each level. There was no unusual discomfort expressed by Agatha. The needles were withdrawn without difficulty. (49 mls of Omnipaque was wasted) Agatha was observed and was without hemodynamic, neurologic, or allergic reactions.? Fluoroscopic images were digitally archived. Provacative testing using the Modified Hill's facet loading test- Left side Right Side Directly before the block VAS (0-10) = 8/10 VAS (0-10) = 8/10 Five minutes after the block VAS (0-10) = 1/10 VAS (0-10) = 1/10 Percentage relief obtained with this diagnostic block 80% 80% Any improved physical functioning directly after the blocks? She was able to move much better. Follow up plans and appointments were discussed with Agatha. Agatha was instructed to keep careful note of how the usual pain was modified by these injections. Specifically, to keep a pain diary for the next 4 hours using a numeric pain scale of 0-10 and report these results. Post procedure instruction was given as documented in the nursing documentation and having met discharge criteria, the patient was [facility] from the [facility]. Based on the medial branches blocked today, if they patient has adequate relief and we are able to proceed to radiofrequency ablation, the treatment should result in the denervation of the bilateral L4-L5 and L5-S1 facet joints. We would expect to denervate a total of 4 facets during the radiofrequency ablation. COMMENTS: No apparent complications. Post-procedure pain: VAS= 1/10 Agatha will call back with 0-4 hour post-procedure pain scores. I personally performed the entire procedure. KEN JACKSON DO, MPH ABPM&R-subspecialty board certification in Pain Medicine [facility]
== END 2023-10-17 10:45 | disposition home or self-care (01) ==
LOC: PC 10:45
PROVIDERS: PCP Internal Medicine; Visit Provider Preventive Medicine Occupational Medicine
DX: M47.816 Spondylosis without myelopathy or radiculopathy, lumbar region (principal)
CPT/HCPCS: 00123; 64493; 64494; 72100; J0665; Q9967

== ENCOUNTER → 2023-10-24 01:04 | Outpatient (CLI) | payer MEDICAID, SELFPAY ==
--- NOTE | 2023-10-24 10:15 | DI.RAD_ITS ---
Exam(s) XR ABDOMEN FLAT PLATE EXAM: 2D digital imaging was performed. CLINICAL HISTORY: CALCULUS OF KIDNEY, N20.0, FOLLOW UP NEPHROLITHIASIS. COMPARISON: CR XR LUMBAR SPINE COMPLETE from 05/02/2023 TECHNIQUE: Supine views of the abdomen performed. FINDINGS: BOWEL GAS PATTERN: Nondistended. Increased quantity of stool. CALCIFICATIONS: No radiopaque calcifications. OSSEOUS STRUCTURES: Normal for age. OTHER FINDINGS: None. IMPRESSION: 1. Nonobstructive bowel gas pattern. 2. No radiopaque calculi. DATA REPOSITORY: RADIATION DOSE DELIVERED:
== END ==
PROVIDERS: PCP Internal Medicine; Visit Provider Urology
DX: N20.0 Calculus of kidney (principal)
CPT/HCPCS: 74018

== ENCOUNTER 2023-10-31 08:15 | Outpatient (CLI) | payer MEDICAID, SELFPAY ==
[2023-10-31 08:44] VITALS: BP 123/69; PULSE 80; RESP 20; TEMP 37.6; O2SAT 98
--- NOTE | 2023-10-31 08:49 | PDOC.PAIN_ITS ---
Date of service: 10/31/23 Time of Service: 09:45 Pain Managment Procedure Note Procedure Note Procedure Note: PROCEDURE NOTE BILATERAL LUMBAR RADIOFREQUENCY ABLATION Date of Service: October 31, 2023 Patient:? Agatha Yi? Provider:? Ken Jackson DO, MPH Agatha Yi has been [facility] to the [facility] for Bilateral Lumbar Radiofrequency Ablation with the [employer] Machine.? Pre Operative Diagnosis: Lumbosacral Spondylosis without Myelopathy Post Operative Diagnosis: Same Pre procedure pain; VAS= 5/10 Comments: She had excellent relief with the 2 LMBBs. Her low back pain has returned. PROCEDURE: Radiofrequency Ablation of medial branches - bilateral L3, L4, L5 and lateral branches of bilateral S1. Agatha?was interviewed and the medical record was reviewed.? There were no medical, pharmacologic, radiographic or other structural contraindications to attempting fluoroscopically guided BILATERAL Lumbar Radiofrequency Ablation.?Risks and expected side effects as well as potential benefit of the procedure were reviewed with Agatha, and the patient's voiced concerns were addressed.? The printed consent form was signed.? Standard time-out procedure was performed. Agatha was brought into the fluoroscopy suite and positioned into the prone position on the fluoroscopy table and allowed to adjust to a position of comfort. A grounding pad was placed on the left abdomen. The sterile field was prepared using chlorhexidine preparation of the skin and sterile draping. Local anesthesia superficial and deep was provided by local infiltration of 2% lidocaine. A 17g 100 mm radiofrequency introducer needle was placed to the planned anatomic targets guided with intermittent fluoroscopy with a perpendicular approach to terminally place at the junction of the superior articular process and the transverse process of the bilateral L4, L5, the base of the sacral ala on the bilateral for the L5 medial branch nerve and the area between base of the sacral ala to the S1 foramen bilaterally. The stylets were removed and radiofrequency probes with a 4mm active tip were then inserted. Needle tip position of the probes was verified in the AP, oblique, and lateral views. At each site, the medial branch nerve was stimulated at 2 Hz to a maximum 1-2 volts determined to finalize safe needle and electrode placement. The patient was awake and responsive during this portion of the procedure. Each target was anesthetized with 1-2 mL of 2 % Lidocaine for anesthesia for lesioning and then each target was lesioned at 80 degrees Celsius for 2 minutes and 30 seconds. Tissue impedances were noted to be between 250 and 500 Ohms. There was no unusual discomfort expressed by Agatha. The needles were withdrawn without difficulty and bandages placed over the needle placement sites, the patient was observed and was without hemodynamic, neurologic, or allergic reactions. Fluoroscopic images were digitally archived. POST PROCEDURE EVALUATION: IMPRESSION: 1. Summary of procedure. Medication given is documented in the MAR. 2. Follow up plan: Agatha to contact [facility] as needed.?This procedure may be repeated if the patient achieves at least 50% improvement in pain/function for at least 6 months. 3. Estimated Blood Loss: <5 mls 4. Fluoroscopy time: Documented in the EMR. Follow up plans and appointments were discussed with the Agatha. Post procedure instruction was given as documented in nursing documentation and having met discharge criteria, Agatha was discharged from the [facility]. COMMENTS: No apparent complications. Post-procedure pain: VAS= 3/10. I personally completed the entire procedure. KEN JACKSON DO, MPH ABPM&R - Subspecialty board certification in Pain Medicine [facility] [facility]
--- NOTE | 2023-10-31 09:36 | DI.RAD_ITS ---
Exam(s) XR PAIN CLINIC LUMBAR SP 2V EXAM: XR PAIN CLINIC LUMBAR SP 2V CLINICAL HISTORY: DX: Lumbar Spondylosis TECHNIQUE: 2D and realtime digital imaging was performed. CONTRAST MATERIAL: Refer to procedure report. COMPARISON: No exams were available for comparison FINDINGS: Fluoroscopy was provided for Dr. Jackson during the performance of a bilateral lumbar radiofrequency ab lation. Please refer to the procedure report for complete details. Ka,r=17.1 mGy IMPRESSION:
[2023-10-31 09:43] VITALS: BP 147/95; PULSE 65; RESP 16; O2SAT 93
[2023-10-31] MEDS: Bupivacaine 0.5% Pres-Free 10 ML VIAL IJ (09:46)
[2023-10-31] MEDS: methylPREDNISolone ACETATE 40 MG/ML VIAL IJ (09:46)
[2023-10-31] MEDS: Nerve Block Tray 1 EACH MC (09:46)
[2023-10-31] MEDS: fentaNYL 100 MCG/2 ML VIAL IVP (09:47)
[2023-10-31] MEDS: Lidocaine 2% Pres-Free 5 ML VIAL IJ (09:47)
[2023-10-31] MEDS: Midazolam 2 MG/2 ML VIAL IVP (09:48)
[2023-10-31] MEDS: Lactated Ringers 500 ML 80 ML IV (09:48)
== END 2023-10-31 08:16 | disposition home or self-care (01) ==
LOC: PC 08:15
PROVIDERS: PCP Internal Medicine; Visit Provider Preventive Medicine Occupational Medicine
DX: M47.817 Spondylosis without myelopathy or radiculopathy, lumbosacral region (principal)
CPT/HCPCS: 123; 64635; 64636; 72100; 00123; J0665; J1030; J2250; J3010

== ENCOUNTER 2023-12-11 01:48 | Outpatient (CLI) | payer MEDICAID, SELFPAY ==
--- NOTE | 2023-12-11 10:15 | DI.RAD_ITS ---
Exam(s) XR ABDOMEN FLAT PLATE EXAM: 2D digital imaging was performed. CLINICAL HISTORY: N20.9 Urinary calculus unspecified. COMPARISON: CT CT RENAL COLIC WO from 09/09/2022 CR XR ABDOMEN FLAT PLATE from 10/24/2023 TECHNIQUE: Supine views of the abdomen was performed. Three images were obtained. FINDINGS: LUNG BASES: Clear. BOWEL GAS PATTERN: Nondistended. FREE AIR: None. CALCIFICATIONS: Phleboliths are seen in the pelvis which appears stable. No radiopaque urinary tract calculi are identified. OSSEOUS STRUCTURES: Normal for age. OTHER FINDINGS: There calcifications in the right upper quadrant of the abdomen consistent with prior cholecystectomy. IMPRESSION: No urinary tract calculi are identified. DATA REPOSITORY: RADIATION DOSE DELIVERED:
[2023-12-11 16:46] LABS: Creatinine,Urine 146.55 mg/dL
[2023-12-11 16:48] LABS: Creatinine,24hr Ur 1.17 g/24hr (0.60-1.80); Total Volume 800 ml
[2023-12-12 09:35] LABS: Magnesium 24hr Urine 40.8 mg/24hrs (12.0-192.0); Magnesium Random Urine 5.1 mg/dL (See Note); Timed Urine Volume 800 mL
[2023-12-12 09:48] LABS: Calcium Urine 15.5 mg/dL (See Note); Calcium Urine 24 hr 124 mg/24hr (100-300); Timed Urine Volume 800 mL
[2023-12-13 10:54] LABS: Citrate Excretion, 24hr, U 892 mg/24 h; Urine Volume 800 mL
[2023-12-13 14:48] LABS: Oxalate, U 0.22 mmol/24 h; Oxalate, U 19.4 mg/24 h (9.7 - 40.5); Urine Volume 800 mL
== END 2023-12-11 01:49 | disposition home or self-care (01) ==
LOC: DI 01:51 → LBN 12:45
PROVIDERS: PCP Internal Medicine; Visit Provider Urology
DX: N20.0 Calculus of kidney (principal)
CPT/HCPCS: 82507; 83735; 74018; 81050; 82340; 82570; 83945

== ENCOUNTER 2024-02-11 11:45 | Emergency (ER) | payer MEDICAID, SELFPAY ==
[2024-02-11 11:48] VITALS: BP 137/72; PULSE 80; RESP 18; TEMP 37; O2SAT 97
--- NOTE | 2024-02-11 13:00 | DI.RAD_ITS ---
Exam(s) XR FOOT RT COMPLETE EXAM: XR FOOT RT COMPLETE CLINICAL HISTORY: heel pain. TECHNIQUE: 2D digital imaging was performed. Three views. COMPARISON: No exams were available for comparison FINDINGS: BONES: No acute fracture is present. No bony destructive lesion is seen. JOINTS: No dislocation present. SOFT TISSUE: Normal. IMPRESSION: Unremarkable radiographs of the right foot. DATA REPOSITORY: RADIATION DOSE DELIVERED:
--- NOTE | 2024-02-11 13:15 | ED.GENADUL_ITS ---
Discharge Plan Disposition Patient Disposition: Home Condition: Stable Discharge Details Clinical Impression: Acute foot pain, Arthritis Primary Care Provider: Kerry Ascencio ED Provider: Sveta Willams Home Meds and New Rx's Prescriptions: No Action rizatriptan 10 mg tablet 10 mg PO ONCE Qty: 14 3RF Rx Instructions: as a single dose. Repeat after 2 hours if needed. No more than 2 tabs in 24 hours. gabapentin 300 mg capsule 300 mg PO BID celecoxib [Celebrex] 100 mg capsule 100 mg PO BID clindamycin HCl 150 mg capsule 150 mg PO PRN Rx Instructions: prior to dental appt. diltiazem HCl 240 mg capsule,extended release 24 hr 240 mg PO DAILY citalopram [Celexa] 10 MG tablet 20 mg PO DAILY Patient Comments: 10 mg tab and 20 mg tab total 30. meclizine 12.5 MG tablet 25 mg PO TID PRN Patient Comments: prn rosuvastatin [Crestor] 20 MG tablet 40 mg PO DAILY acyclovir 200 MG capsule 200 mg PO DIRECTED PRN aspirin 81 mg tablet,delayed release (DR/EC) 81 mg PO DAILY ibuprofen 800 mg tablet 800 mg PO TID levothyroxine 75 mcg tablet 150 mcg PO DAILY Emgality Pen 120 mg/mL pen injector 120 mg subcut ONCE Qty: 1 11RF epinephrine 0.3 MG/SYR auto-injector 0.3 mg IJ PRN PRN (Reason: Anaphylaxis) Qty: 1 0RF Myrbetriq 50 mg Tablet Extended Release 24 Hr 50 mg PO DAILY cetirizine 10 mg Tablet 10 mg PO DAILY ezetimibe 10 mg tablet 10 mg PO DAILY Patient Comments: TAKE 1 TABLET BY MOUTH EVERY DAY nahoejlrme-qaitxlrqfiwog-msrr [Fioricet] 50-300-40 mg capsule 1 cap PO Q8H PRN (Reason: headache) Qty: 14 0RF Discharge Instructions Instructions: Leg Pain (ED), Arthritis (ED) Additional Instructions: No evidence of abnormality noted on the x-ray of your foot. No evidence of infection noted on my exam. Please follow-up with your primary care provider. Continue to take Tylenol ibuprofen ice feet elevate legs for the next few days. Follow up with primary care provider in 3-5 days. Return to ED sooner if any worsening or concerns. Referrals: Kerry Ascencio [Primary Care Provider] - 3 days Discharge Data Discharge Date/Time-TO BE ENTERED AT DEPARTURE: 02/11/24 15:41 HPI General Mode of arrival: ambulatory . Date/Time Provider Initiated Documentation: 02/11/24 13:07 . Limitations to Documentation: no limitations . Information obtained by: patient and RN notes reviewed . History of Present Illness described as moderate, with intensity rated at 4. Quality is described as aching, dull and constant, and is localized to the lower extremity. Patient reports no radiation. Patient started experiencing this week(s) and it has been constant. No relieving factors improve symptom(s), Movement worsens symptoms . Patient notes other (increased thirst, increased urination). Patient did receive the following treatments prior to arrival, NSAID and cold therapy Related Data Home Medications Medication Instructions Recorded Confirmed citalopram 10 mg tablet (Celexa) 20 mg PO DAILY 10/08/13 11/20/23 meclizine 12.5 mg tablet 25 mg PO TID PRN 10/08/13 11/20/23 rosuvastatin 20 mg tablet (Crestor) 40 mg PO DAILY 10/08/13 11/20/23 epinephrine 0.3 mg/0.3 mL 0.3 mg (0.3 mL) IJ PRN PRN 07/21/16 11/20/23 injection, auto-injector Anaphylaxis ##1 acyclovir 200 mg capsule 200 mg PO DIRECTED PRN 06/01/17 11/20/23 cetirizine 10 mg tablet 10 mg PO DAILY 12/20/18 11/20/23 clindamycin HCl 150 mg capsule 150 mg PO PRN 06/01/21 11/20/23 ezetimibe 10 mg tablet 10 mg PO DAILY 06/12/21 11/20/23 aspirin 81 mg tablet,delayed 81 mg PO DAILY 12/22/21 11/20/23 release diltiazem HCl 240 mg capsule,24 240 mg PO DAILY 01/09/23 11/20/23 hr,extended release mirabegron 50 mg tablet,extended 50 mg PO DAILY 01/09/23 11/20/23 release 24 hr (Myrbetriq) ibuprofen 800 mg tablet 800 mg PO TID 03/08/23 11/20/23 celecoxib 100 mg capsule (Celebrex) 100 mg PO BID 07/16/23 11/20/23 gabapentin 300 mg capsule 300 mg PO BID 07/16/23 11/20/23 levothyroxine 75 mcg tablet 150 mcg PO DAILY 07/16/23 11/20/23 nclqmlcjad-udknkdyofsepu-cokrxsvk 1 cap PO Q8H PRN headache #14 caps 10/15/23 11/20/23 50 mg-300 mg-40 mg capsule (Fioricet) rizatriptan 10 mg tablet 10 mg PO ONCE #14 tabs 11/15/23 11/20/23 galcanezumab-gnlm 120 mg/mL 120 mg subcut ONCE #1 mL 11/29/23 subcutaneous pen injector (Emgality Pen) Previous Rx's Medication Instructions Recorded epinephrine 0.3 mg/0.3 mL 0.3 mg (0.3 mL) IJ PRN PRN 07/21/16 injection, auto-injector Anaphylaxis ##1 kctcwbytng-qsqygpdlrmjqp-ruwcwchb 1 cap PO Q8H PRN headache #14 caps 10/15/23 50 mg-300 mg-40 mg capsule (Fioricet) rizatriptan 10 mg tablet 10 mg PO ONCE #14 tabs 11/15/23 galcanezumab-gnlm 120 mg/mL 120 mg subcut ONCE #1 mL 11/29/23 subcutaneous pen injector (Emgality Pen) Allergies Allergy/AdvReac Type Severity Reaction Status Date / Time tetrabenazine Allergy Severe RASH,HIVES Verified 02/11/24 11:51 amoxicillin Allergy Intermediate Skin Rash Verified 02/11/24 11:51 hydrocodone [From Vicodin] Allergy Intermediate PRURITIS Verified 02/11/24 11:51 morphine Allergy Intermediate ITCHY, SICK Verified 02/11/24 11:51 peanut Allergy Intermediate Anaphylaxsi Verified 02/11/24 11:51 s tree nut Allergy Intermediate Anaphylaxsi Verified 02/11/24 11:51 s chlorhexidine Allergy Mild Skin Rash Verified 02/11/24 11:51 adhesive AdvReac Intermediate RASH AND Verified 02/11/24 11:51 SWELLING alcohol AdvReac Intermediate RASH Verified 02/11/24 11:51 [From Mastisol Liquid Adhesive] gum mastic AdvReac Intermediate RASH Verified 02/11/24 11:51 [From Mastisol Liquid Adhesive] methyl salicylate AdvReac Intermediate RASH Verified 02/11/24 11:51 [From Mastisol Liquid Adhesive] storax AdvReac Intermediate RASH Verified 02/11/24 11:51 [From Mastisol Liquid Adhesive] benzoin AdvReac Mild Skin Rash Verified 02/11/24 11:51 cat dander AdvReac Mild WATERY EYES Verified 02/11/24 11:51 milk AdvReac Unknown Diarrhea Verified 02/11/24 11:51 pollen extracts AdvReac Unknown Itching Verified 02/11/24 11:51 dog dander AdvReac WATERY EYES Verified 02/11/24 11:51 RAW FRUIT Allergy Unknown Swelling/Ed Uncoded 02/11/24 11:51 kit DUST AdvReac Unknown itchy eyes Uncoded 02/11/24 11:51 General Stated Complaint: Orthopedic MANNIE: 4 Review of Systems All systems reviewed & are unremarkable except as noted in HPI and below Musculoskeletal Musculoskeletal: Reports as per HPI and Reports other (bilateral foot pain) Endocrine Endocrine: Reports as per HPI, Reports polydipsia and Reports polyuria Exam Extrem General: normal to inspection Right lower extremity: normal to inspection and foot Details: normal capillary refill, normal to inspection and tenderness Location: of the plantar foot and of the calcaneus Left lower extremity: normal to inspection and foot Details: tenderness and other (Right greater than left with tenderness.) Course Vital Signs Vital signs: Vital Signs Temperature 37.0 C 02/11/24 11:48 Pulse 80 02/11/24 11:48 Respiratory Rate 18 02/11/24 11:48 Blood Pressure 137/72 02/11/24 11:48 Pulse Oximetry 97 02/11/24 11:48 Temperature 37.0 C 02/11/24 11:48 Temperature Source Temporal Artery Scan 02/11/24 11:48 Pulse 80 02/11/24 11:48 Respiratory Rate 18 02/11/24 11:48 Respiratory Effort Normal, Non-Labored 02/11/24 11:51 Blood Pressure 137/72 02/11/24 11:48 Blood Pressure Position Sitting 02/11/24 11:48 Pulse Oximetry 97 02/11/24 11:48 Pain Level 7 02/11/24 11:48 Medical Decision Making 53-year-old female presents to the ER with a chief complaint of right heel pain she also reports bilateral foot pain worse on the right than the left. She is very active. She has had a history of bilateral knee replacements. She is concerned for cellulitis because she got an infection in her knee. On exam no signs of infection induration or cellulitis. X-ray shows no acute findings. Will send patient home with follow-up with PCP. Differential diagnosis includes not limited to occult fracture, arthritis, gout, peripheral neuropathy, peripheral vascular disease, new onset diabetes due to patient's complaint of increased thirst and increased urination. Patient given indomethacin 50 mg here in the department. X-rays are within normal limits, I did refer patient to primary care provider for further evaluation treatment and diagnosis. Instructed patient to rest for the next few days elevate ice continue taking Tylenol ibuprofen to see if this improves her symptoms. Medical Records Medical records reviewed: Yes I reviewed the patient's medical records. Quality:SDOH Health Related Social Needs: No Data to Display PFSH All Active Problems (Updated 02/11/24 @ 15:31 by Sveta Willams NP) Arthritis (Acute) Acute foot pain (Acute) Lumbosacral spondylosis without myelopathy (Acute) Pes anserinus bursitis of right knee (Acute) 40 mg Depo-Medrol injection: 07/06/2023 History of total right knee replacement (Acute ~2009) Migraine headache without aura (Acute) Daily headache (Acute) Papilledema (Acute) Vision changes (Acute) Discomfort of right eye (Acute) Elevated AST (SGOT) (Acute) Chest pain (Acute) Traumatic tear of left rotator cuff (Acute ~03/2022) Bronchitis, acute (Acute) Actinic keratoses (Acute) Seborrheic keratoses, inflamed (Acute) Atypical nevus (Acute) Lipoma of arm (Acute) Coronary arteriosclerosis (Acute) Mild intermittent asthma without complication (Acute 11/08/15) Medical History Visual disturbance Uterine leiomyosarcoma Urticaria, idiopathic Solitary lung nodule Post-acute COVID-19 syndrome Onychomycosis Lack of energy Idiopathic osteoarthritis Hypoglycemia Hyperlipidemia Herpesviral vesicular dermatitis Fear of flying Eustachian tube disorder Dizziness and giddiness Contact dermatitis Carpal tunnel syndrome BPPV (benign paroxysmal positional vertigo) Angina pectoris Allergic rhinitis Normal colonoscopy (~01/13/22) MOISES (obstructive sleep apnea) Chronic constipation Rectal bleeding SVT (supraventricular tachycardia) Rectal bleed Screening for colon cancer Left wrist pain Skin lesion COVID-19 Impingement syndrome of left shoulder Bursitis of left shoulder Vulvovaginitis (11/03/13) Arthritis of left acromioclavicular joint s/p distal clavicle excision, 04/28/20 De Quervain's tenosynovitis, left Tendonitis of left rotator cuff Injection: 08/04/2019 Atypical chest pain Pt. states They don't know what it is, Dr. Oglesby thinks its just muscular, and not cardiac related Trochanteric bursitis, left hip S/P ITB tenotomy and bursal debridement DOS: 12/24/18 Dr. Perez Trochanteric bursitis of right hip Seborrheic keratosis (12/15/16) upper back of left arm Complete tear of right rotator cuff (12/03/17) Asthma HTN (hypertension) GERD (gastroesophageal reflux disease) pt. denies this Chronic back pain Hypothyroidism Migraines Depression Elevated cholesterol Overactive bladder Fatigue Colicky RUQ abdominal pain Insomnia Surgical History History of arthroscopy of left shoulder (02/10/22) History of colonoscopy (~01/13/22) Hx of breast biopsy Left rotator cuff tear s/p arthroscopic rotator cuff repair 04/28/20 s/p arthroscopic revision rotator cuff repair: 08/11/2020 Right carpal tunnel syndrome S/P ECTR: 03/23/2020 Left carpal tunnel syndrome S/P ECTR: 03/23/2020 History of bursectomy S/P ITB tenotomy and bursal debridement DOS: 12/24/18 Dr. Perez History of cardiac cath Non-obstructive CAD, Elevated LV end diastolic pressure. no stents Status post right rotator cuff repair Right repeat rotator cuff repair, also has had left RTC repaired. Date of surgery: 04/16/18 Dr. Perez Acquired absence of both cervix and uterus (11/08/15) , Ectopic (~1983) Oophrectomy, Left with hyst Abdominal hysterectomy (~2008) for benign reasons FACET INJECTIONS Excision, Skin Mass (12/15/16) Cholecystectomy (02/01/16) Arthroplasty of knee X2 bilat Family History Mother Essential hypertension Spinal stenosis Stroke Atrial fibrillation Father Essential hypertension Heart disease Myocardial infarction Brother Atrial fibrillation Essential hypertension Prostate cancer Spinal stenosis Social History Smoking/Tobacco Use Status: Never Smoking risk assessment performed?: Yes Alcohol Intake: never Drug use: Never Substance use type: does not use Household members: significant other Number of Children: 1 Current gender identity: female Seatbelt use: sometimes Do you feel safe at home: Yes Do you feel safe in your relationship?: Yes Additional Social history: Quit smoking 1984. Lives with in [place]. Retired, helps care for grandkids.
[2024-02-11] MEDS: Indomethacin 25 MG CAP 50 MG PO (13:32)
--- NOTE | 2024-02-11 14:41 | DI.VRAD_ITS ---
PROCEDURE INFORMATION: Exam: XR Right Foot Exam date and time: 02/11/2024 1:43 PM Age: 63 years old Clinical indication: Pain; Foot; Right TECHNIQUE: Imaging protocol: Radiologic exam of the right foot. Views: 3 or more views. COMPARISON: CR XR KNEE RT 2V AP,LAT 07/06/2023 8:19 AM FINDINGS: Bones/joints: Normal. Soft tissues: Normal. IMPRESSION: No acute findings. Dictated and Authenticated by: Danny Urrutia MD. Ordering:JOHNNIE Bangura MD
== END 2024-02-11 15:41 | disposition home or self-care (01) ==
PROVIDERS: Emergency Provider Registered Nurse Emergency; PCP Internal Medicine
DX: M79.672 Pain in left foot (principal); M79.671 Pain in right foot
CPT/HCPCS: 99283; 73630; 99284

== ENCOUNTER 2024-02-17 22:47 | Emergency (ER) | payer MEDICAID, SELFPAY ==
--- NOTE | 2024-02-17 22:45 | DI.CT_ITS ---
Exam(s) CT ABDOMEN PELVIS WO EXAM: CT ABDOMEN PELVIS WO CLINICAL HISTORY: left flank pain, eval for stone. TECHNIQUE: Imaging Protocol: Axial computed tomography images with coronal and sagittal reformatted images were created and reviewed. COMPARISON: CT ABD PELVIS WITH CONTRAST from 09/26/[address] RENAL COLIC WO from 09/07/[address] RENAL COLIC WO from 09/09/2022 CT,NM,TMT NM MPI REST STRESS GRP from 01/11/2023 FINDINGS: ABDOMEN: Lung Bases: Normal where visualized. Liver: There is decreased attenuation of the liver consistent with fatty infiltration. No measurable mass. Gallbladder and biliary tract: Status post cholecystectomy. No significant biliary ductal dilatation . Pancreas: Normal density, no abnormal calcifications or inflammatory process. Spleen: Splenic calcified granuloma present. Kidneys: Normal size, contour and axis.There is a 3 mm left UVJ stone without significant hydronephro sis. There is again seen a left renal cyst. No follow-up is recommended. Adrenal glands: No mass is seen. Lymph nodes: Within normal limits. Abdominal Aorta: Abdominal portion non-dilated. Atherosclerotic calcification is present. PELVIS: Bladder:The urinary bladder is incompletely distended but grossly unremarkable. Bowel: There is diverticulosis of the colon without evidence of acute diverticulitis. Appendix is un remarkable. Peritoneal cavity: No ascites, collection or mesenteric inflammatory response. No free air. Reproductive organs: Status post hysterectomy. Bones: Within normal limits. Soft Tissues: Within normal limits. IMPRESSION: 1. 3 mm left UVJ stone without significant hydronephrosis. 2. Findings were discussed with Dr. Pettit at 7:26 a.m. on 02/18/2024. RADIATION DOSE DELIVERED: 1,222.48mGy.cm Total DLP DATA REPOSITORY: All CT scans at this facility are submitted to the National Radiology Data Registry (NRDR) Dose Index Registry (DIR) with the [employer] (ACR). RADIATION OPTIMIZATION: All CT scans at this facility use at least one of these dose optimization te chniques: automated exposure control; mA and/or kV adjustment per patient size (includes targeted exa ms where dose is matched to clinical indication); or iterative reconstruction.
[2024-02-17 22:50] VITALS: BP 160/72; PULSE 94; RESP 16; TEMP 37.8; O2SAT 93
--- NOTE | 2024-02-17 23:00 | DI.RAD_ITS ---
Exam(s) XR CHEST 1V IN DI DEPT EXAM: XR CHEST 1V IN DI DEPT CLINICAL HISTORY: fever, eval for pneumonia TECHNIQUE: 2D digital imaging was performed of the chest. One image was obtained. An AP view was ob tained. COMPARISON: CR,XR XR PORTABLE CHEST AP from 05/21/2022 FINDINGS: MEDIASTINUM: Normal. HEART: Normal. PULMONARY VASCULATURE: Normal. LUNGS: Clear. PLEURAL SPACE: No pleural effusion or pneumothorax. BONE:Within normal limits for the patient's age. Postsurgical changes are seen in the right shoulder. OTHER FINDINGS:Normal. IMPRESSION: No acute pulmonary findings. DATA REPOSITORY: RADIATION DOSE DELIVERED:
--- NOTE | 2024-02-17 23:03 | W.ED.GENAD ---
Discharge Plan Disposition Patient Disposition: Home Condition: Good Discharge Details Clinical Impression: Fever, Left flank pain Primary Care Provider: Kerry Ascencio ED Provider: Bryce Hill Home Meds and New Rx's Prescriptions: Continued rizatriptan 10 mg tablet 10 mg PO ONCE Qty: 14 3RF Rx Instructions: as a single dose. Repeat after 2 hours if needed. No more than 2 tabs in 24 hours. celecoxib [Celebrex] 100 mg capsule 100 mg PO BID diltiazem HCl 240 mg capsule,extended release 24 hr 240 mg PO DAILY citalopram [Celexa] 10 MG tablet 20 mg PO DAILY Patient Comments: 10 mg tab and 20 mg tab total 30. meclizine 12.5 MG tablet 25 mg PO TID PRN Patient Comments: prn rosuvastatin [Crestor] 20 MG tablet 40 mg PO DAILY acyclovir 200 MG capsule 200 mg PO DIRECTED PRN aspirin 81 mg tablet,delayed release (DR/EC) 81 mg PO DAILY ibuprofen 800 mg tablet 800 mg PO TID levothyroxine 75 mcg tablet 150 mcg PO DAILY Emgality Pen 120 mg/mL pen injector 120 mg subcut ONCE Qty: 1 11RF epinephrine 0.3 MG/SYR auto-injector 0.3 mg IJ PRN PRN (Reason: Anaphylaxis) Qty: 1 0RF mirabegron [Myrbetriq] 50 mg Tablet Extended Release 24 Hr 50 mg PO DAILY sulfamethoxazole-trimethoprim 800-160 mg tablet 1 tab PO BID Patient Comments: TAKE 1 TABLET BY MOUTH TWICE DAILY metformin 500 mg tablet extended release 24 hr 500 mg PO DAILY Patient Comments: TAKE ONE TABLET BY MOUTH EVERY DAY cetirizine 10 mg Tablet 10 mg PO DAILY ezetimibe 10 mg tablet 10 mg PO DAILY Patient Comments: TAKE 1 TABLET BY MOUTH EVERY DAY hvnuewwesl-zgxsgtfacwibh-geui [Fioricet] 50-300-40 mg capsule 1 cap PO Q8H PRN (Reason: headache) Qty: 14 0RF Discontinued clindamycin HCl 150 mg capsule 150 mg PO PRN Rx Instructions: prior to dental appt. Discharge Instructions Instructions: Fever in Adults (ED), Flank Pain (ED) Additional Instructions: At this time your workup shows no elevated white count, or signs of sepsis. Your renal function is stable. You have no evidence of urinary infection at this time which is likely secondary to appropriate treatment with your Bactrim antibiotic. Please continue to take this as prescribed. The CAT scan of your abdomen shows no abnormalities per the radiologist. I am concerned that you may have a mild virus that brought about your symptoms even though your COVID flu and RSV testing are negative. Additionally there is a chance that this could be secondary to a tickborne illness. We have sent a tick and Lyme panel, but this will take a few days to come back. Please continue taking your home antibiotic, follow-up closely with your primary care provider, as well as your urologist. Take Tylenol and Motrin as needed for pain. If you notice any worsening of your symptoms, or any new symptoms such as vomiting, diarrhea, fever, chills, shortness of breath, chest pain, numbness, weakness, or fainting , please return immediately to the emergency department for reevaluation. Please follow up with your primary care provider as soon as possible for reassessment and reevaluation. As always, it was a pleasure participating in your medical care today. Referrals: David Aguilar MD [MD CONSULTING PHYSICIAN] - Kerry Ascencio [Primary Care Provider] - [facility] General Date/Time Provider Initiated Documentation: 02/17/24 22:59. HPI Narrative: 63-year-old female with a past medical history of high cholesterol, diabetes, hypothyroidism, with a surgical history of cholecystectomy, previous ectopic and unilateral oophorectomy, previous kidney stones requiring stents, who presents today for evaluation of left flank pain. Patient states that 3 days ago on Sunday she developed mild left flank pain, she was seen in the clinic and noted to have urinalysis that was positive. She was treated/started on Bactrim DS, however tonight she developed worsening pain, nausea, and fever. Late this evening she also developed mild right lower quadrant tenderness. She came to the ER for further assessment after contacting her urologist Dr. Aguilar. She denies any other complaints. She admits to burning in her urine. She denies any excessive blood. No other complaints at this time. Pain comes and goes in nature. Right now it is very mild. She describes it as achy. Related Data Home Medications Medication Instructions Recorded Confirmed citalopram 10 mg tablet (Celexa) 20 mg PO DAILY 10/08/13 02/17/24 meclizine 12.5 mg tablet 25 mg PO TID PRN 10/08/13 02/17/24 rosuvastatin 20 mg tablet (Crestor) 40 mg PO DAILY 10/08/13 02/17/24 epinephrine 0.3 mg/0.3 mL 0.3 mg (0.3 mL) IJ PRN PRN 07/21/16 02/17/24 injection, auto-injector Anaphylaxis ##1 acyclovir 200 mg capsule 200 mg PO DIRECTED PRN 06/01/17 02/17/24 cetirizine 10 mg tablet 10 mg PO DAILY 12/20/18 02/17/24 ezetimibe 10 mg tablet 10 mg PO DAILY 06/12/21 02/17/24 aspirin 81 mg tablet,delayed 81 mg PO DAILY 12/22/21 02/17/24 release diltiazem HCl 240 mg capsule,24 240 mg PO DAILY 01/09/23 02/17/24 hr,extended release mirabegron 50 mg tablet,extended 50 mg PO DAILY 01/09/23 02/17/24 release 24 hr (Myrbetriq) ibuprofen 800 mg tablet 800 mg PO TID 03/08/23 02/17/24 celecoxib 100 mg capsule (Celebrex) 100 mg PO BID 07/16/23 02/17/24 levothyroxine 75 mcg tablet 150 mcg PO DAILY 07/16/23 02/17/24 mfvdwpzwos-mpisdoihsjivz-rhrdjonv 1 cap PO Q8H PRN headache #14 caps 10/15/23 02/17/24 50 mg-300 mg-40 mg capsule (Fioricet) rizatriptan 10 mg tablet 10 mg PO ONCE #14 tabs 11/15/23 02/17/24 galcanezumab-gnlm 120 mg/mL 120 mg subcut ONCE #1 mL 11/29/23 02/17/24 subcutaneous pen injector (Emgality Pen) metformin 500 mg tablet,extended 500 mg PO DAILY 02/17/24 02/17/24 release 24 hr sulfamethoxazole 800 1 tab PO BID 02/17/24 02/17/24 mg-trimethoprim 160 mg tablet Previous Rx's Medication Instructions Recorded epinephrine 0.3 mg/0.3 mL 0.3 mg (0.3 mL) IJ PRN PRN 07/21/16 injection, auto-injector Anaphylaxis ##1 amabegclus-tswmwemvnkdqx-sojfojkd 1 cap PO Q8H PRN headache #14 caps 10/15/23 50 mg-300 mg-40 mg capsule (Fioricet) rizatriptan 10 mg tablet 10 mg PO ONCE #14 tabs 11/15/23 galcanezumab-gnlm 120 mg/mL 120 mg subcut ONCE #1 mL 11/29/23 subcutaneous pen injector (Emgality Pen) Allergies Allergy/AdvReac Type Severity Reaction Status Date / Time tetrabenazine Allergy Severe RASH,HIVES Verified 02/17/24 22:59 amoxicillin Allergy Intermediate Skin Rash Verified 02/17/24 22:59 hydrocodone [From Vicodin] Allergy Intermediate PRURITIS Verified 02/17/24 22:59 morphine Allergy Intermediate ITCHY, SICK Verified 02/17/24 22:59 peanut Allergy Intermediate Anaphylaxsi Verified 02/17/24 22:59 s tree nut Allergy Intermediate Anaphylaxsi Verified 02/17/24 22:59 s chlorhexidine Allergy Mild Skin Rash Verified 02/17/24 22:59 adhesive AdvReac Intermediate RASH AND Verified 02/17/24 22:59 SWELLING alcohol AdvReac Intermediate RASH Verified 02/17/24 22:59 [From Mastisol Liquid Adhesive] gum mastic AdvReac Intermediate RASH Verified 02/17/24 22:59 [From Mastisol Liquid Adhesive] methyl salicylate AdvReac Intermediate RASH Verified 02/17/24 22:59 [From Mastisol Liquid Adhesive] storax AdvReac Intermediate RASH Verified 02/17/24 22:59 [From Mastisol Liquid Adhesive] benzoin AdvReac Mild Skin Rash Verified 02/17/24 22:59 cat dander AdvReac Mild WATERY EYES Verified 02/17/24 22:59 milk AdvReac Unknown Diarrhea Verified 02/17/24 22:59 pollen extracts AdvReac Unknown Itching Verified 02/17/24 22:59 dog dander AdvReac WATERY EYES Verified 02/17/24 22:59 RAW FRUIT Allergy Unknown Swelling/Ed Uncoded 02/11/24 11:51 kit DUST AdvReac Unknown itchy eyes Uncoded 02/11/24 11:51 General Stated Complaint: Fever MANNIE: 3 Review of Systems All systems reviewed & are unremarkable except as noted in HPI and below Exam Narrative Exam Narrative: 1.Const: Well-nourished, Well-developed, appearing stated age 2.Eyes: PERRL, no conjunctival injection, and symmetrical lids. 3.ENT: Atraumatic external nose and ears. Moist MM. Neck: Symmetric, trachea midline, No thyromegaly. 4.CVS: +S1/S2, No murmurs or gallops. Peripheral pulses 2+ and equal in all extremities. Brisk capillary refill in all extremities. 5.RESP: Unlabored respiratory effort. Clear to auscultation bilaterally. No wheezes rales or rhonchi 6.GI: Soft, mild left lower quadrant tenderness, minimal right lower quadrant tenderness. Mild left-sided CVA tenderness. 7.MSK: Normocephalic/Atraumatic, Extremities w/o deformity or ttp No cyanosis or clubbing, Normal movement of all extremities 8.Skin: Warm, Dry. No rashes or lesions. 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 Sensation grossly intact, no focal neurologic deficits. 10.Psych: (AAO) x3. Appropriate mood and affect Course Vital Signs Vital signs: Vital Signs Temperature 37.8 C H 02/17/24 22:50 Pulse 94 H 02/17/24 22:50 Respiratory Rate 16 02/17/24 22:50 Blood Pressure 160/72 H 02/17/24 22:50 Pulse Oximetry 93 02/17/24 22:50 Temperature 37.8 C H 02/17/24 22:50 Pulse 94 H 02/17/24 22:50 Respiratory Rate 16 02/17/24 22:50 Respiratory Effort Normal 02/17/24 22:57 Blood Pressure 160/72 H 02/17/24 22:50 Pulse Oximetry 93 02/17/24 22:50 Oxygen Delivery Method Room Air 02/17/24 22:50 Oxygen Flow Rate 0 02/17/24 22:50 Pain Level 4 02/17/24 22:50 Lab/Test Results Lab/Test Results: 02/17/24 23:00 Blood Blood Culture - Pending 02/17/24 23:00 Blood Blood Culture - Pending Medical Decision Making 63-year-old female with a past medical history of high cholesterol, diabetes, hypothyroidism, with a surgical history of cholecystectomy, previous ectopic and unilateral oophorectomy, previous kidney stones requiring stents, who presents today for evaluation of left flank pain. Patient states that 3 days ago on Sunday she developed mild left flank pain, she was seen in the clinic and noted to have urinalysis that was positive. She was treated/started on Bactrim DS, however tonight she developed worsening pain, nausea, and fever. Late this evening she also developed mild right lower quadrant tenderness. She came to the ER for further assessment after contacting her urologist Dr. Aguilar. She denies any other complaints. She admits to burning in her urine. She denies any excessive blood. No other complaints at this time. Pain comes and goes in nature. Right now it is very mild. She describes it as achy. Exam demonstrates well-appearing female, mild fever, hypertensive, minimal tachycardia. No crackles or rhonchi on auscultation of the lungs. Differential is highest for UTI/pyelonephritis, however differential also includes diverticulitis, less likely appendicitis, and potential urolithiasis with infection. Will check for pneumonia, we will check for COVID flu and RSV, gently rehydrate with 500 cc of saline, patient does not want anything for pain at this point. Will get a CT scan of the abdomen, monitor closely and reassess. 12:49 AM Laboratory workup has returned, no white count bandemia or left shift. For that matter there is mild lymphopenia. COVID flu and RSV are negative. Lactate normal, procalcitonin 0.1. Electrolytes and renal function normal. Urinalysis shows blood but no evidence of nitrites, leuk esterase, or infection for that matter. Patient still feels mild achiness in her left flank, temperature is borderline. She otherwise feels well aside for feeling slightly rundown. Chest x-ray negative for evidence of pneumonia per radiology, CT scan of the abdomen pelvis shows no evidence of acute process per radiology. No stone, infection, diverticulitis or other abnormality per radiology. I did discuss further with the patient if she has had any recent tick bites, she does admit to a tick bite a few days ago on her abdomen which was engorged and likely a deer tick. She did pluck this, no rashes present now or was present then aside from minimal redness initially when she had plucked it. Will add a tick and Lyme panel. Suspect that there is a viral etiology causing the patient's fever and chills, or potential Lyme borne etiology/tickborne etiology. Will not change the Bactrim at this time, however we will follow closely with her blood cultures and Lyme panel. She will be contacted if these are positive. Additionally I did call the patient's urologist Dr. Aguilar, and he will follow-up closely with her on an outpatient basis as well monitor the urine cultures. Patient otherwise stable for discharge at this time. No evidence of septic shock, severe sepsis, or other life-threatening etiology at this time. Patient remains hemodynamically stable. Patient has been rehydrated. She does not want anything additional for pain control at this time. No evidence of meningitis, pneumonia, acute abdominal process, pyelonephritis or other concerning infectious etiology in that regard. I have extensively reviewed the treatment plan and discharge instructions with the patient. I have addressed all patient concerns at this time. The patient was made aware of what symptoms to monitor for that would warrant a return to the emergency department. Discussed the plan with the patient, they demonstrate verbal understanding and agreement with our assessment and plan at this time. The documentation in this chart was dictated using [employer] dictation software. Please excuse any dictation errors. FINDINGS: Lungs: Unremarkable. No consolidation. Pleural spaces: Unremarkable. No pleural effusion. No pneumothorax. Heart/Mediastinum: Unremarkable. No cardiomegaly. Bones/joints: Unremarkable. IMPRESSION: No acute findings. Thank you for allowing us to participate in the care of your patient. Dictated and Authenticated by: Michael Nation MD 02/18/2024 12:14 AM Eastern Time ([place] & [place]) FINDINGS: Liver: Hepatic steatosis. Gallbladder and bile ducts: Status post cholecystectomy. Pancreas: Normal. No ductal dilation. Spleen: Normal. No splenomegaly. Adrenal glands: Normal. No mass. Kidneys and ureters: Simple left renal cyst, no further follow-up required. No hydronephrosis. Stomach and bowel: Colonic diverticula. No bowel obstruction. Appendix: No evidence of appendicitis. Intraperitoneal space: Unremarkable. No free air. No significant fluid collection. Vasculature: Unremarkable. No abdominal aortic aneurysm. Lymph nodes: Unremarkable. No enlarged lymph nodes. Urinary bladder: Unremarkable as visualized. Reproductive: Status post hysterectomy. Bones/joints: Unremarkable. No acute fracture. Soft tissues: Unremarkable. IMPRESSION: No acute finding. Thank you for allowing us to participate in the care of your patient. Dictated and Authenticated by: Michael Nation MD 02/18/2024 12:17 AM Eastern Time ([place] & [place]) Quality:SDOH Health Related Social Needs: No Data to Display PFSH All Active Problems (Updated 02/18/24 @ 00:41 by Bryce Hill DO) Left flank pain (Acute) Fever (Acute) Arthritis (Acute) Acute foot pain (Acute) Lumbosacral spondylosis without myelopathy (Acute) Pes anserinus bursitis of right knee (Acute) 40 mg Depo-Medrol injection: 07/06/2023 History of total right knee replacement (Acute ~2009) Migraine headache without aura (Acute) Daily headache (Acute) Papilledema (Acute) Vision changes (Acute) Discomfort of right eye (Acute) Elevated AST (SGOT) (Acute) Chest pain (Acute) Traumatic tear of left rotator cuff (Acute ~03/2022) Bronchitis, acute (Acute) Actinic keratoses (Acute) Seborrheic keratoses, inflamed (Acute) Atypical nevus (Acute) Lipoma of arm (Acute) Coronary arteriosclerosis (Acute) Mild intermittent asthma without complication (Acute 11/08/15) Medical History Visual disturbance Uterine leiomyosarcoma Urticaria, idiopathic Solitary lung nodule Post-acute COVID-19 syndrome Onychomycosis Lack of energy Idiopathic osteoarthritis Hypoglycemia Hyperlipidemia Herpesviral vesicular dermatitis Fear of flying Eustachian tube disorder Dizziness and giddiness Contact dermatitis Carpal tunnel syndrome BPPV (benign paroxysmal positional vertigo) Angina pectoris Allergic rhinitis Normal colonoscopy (~01/13/22) MOISES (obstructive sleep apnea) Chronic constipation Rectal bleeding SVT (supraventricular tachycardia) Rectal bleed Screening for colon cancer Left wrist pain Skin lesion COVID-19 Impingement syndrome of left shoulder Bursitis of left shoulder Vulvovaginitis (11/03/13) Arthritis of left acromioclavicular joint s/p distal clavicle excision, 04/28/20 De Quervain's tenosynovitis, left Tendonitis of left rotator cuff Injection: 08/04/2019 Atypical chest pain Pt. states They don't know what it is, Dr. Oglesby thinks its just muscular, and not cardiac related Trochanteric bursitis, left hip S/P ITB tenotomy and bursal debridement DOS: 12/24/18 Dr. Perez Trochanteric bursitis of right hip Seborrheic keratosis (12/15/16) upper back of left arm Complete tear of right rotator cuff (12/03/17) Asthma HTN (hypertension) GERD (gastroesophageal reflux disease) pt. denies this Chronic back pain Hypothyroidism Migraines Depression Elevated cholesterol Overactive bladder Fatigue Colicky RUQ abdominal pain Insomnia Surgical History History of arthroscopy of left shoulder (02/10/22) History of colonoscopy (~01/13/22) Hx of breast biopsy Left rotator cuff tear s/p arthroscopic rotator cuff repair 04/28/20 s/p arthroscopic revision rotator cuff repair: 08/11/2020 Right carpal tunnel syndrome S/P ECTR: 03/23/2020 Left carpal tunnel syndrome S/P ECTR: 03/23/2020 History of bursectomy S/P ITB tenotomy and bursal debridement DOS: 12/24/18 Dr. Perez History of cardiac cath Non-obstructive CAD, Elevated LV end diastolic pressure. no stents Status post right rotator cuff repair Right repeat rotator cuff repair, also has had left RTC repaired. Date of surgery: 04/16/18 Dr. Perez Acquired absence of both cervix and uterus (11/08/15) , Ectopic (~1983) Oophrectomy, Left with hyst Abdominal hysterectomy (~2008) for benign reasons FACET INJECTIONS Excision, Skin Mass (12/15/16) Cholecystectomy (02/01/16) Arthroplasty of knee X2 bilat Family History Mother Essential hypertension Spinal stenosis Stroke Atrial fibrillation Father Essential hypertension Heart disease Myocardial infarction Brother Atrial fibrillation Essential hypertension Prostate cancer Spinal stenosis Social History Smoking/Tobacco Use Status: Never Smoking risk assessment performed?: Yes Alcohol Intake: never Drug use: Never Substance use type: does not use Household members: significant other Number of Children: 1 Current gender identity: female Seatbelt use: sometimes Do you feel safe at home: Yes Do you feel safe in your relationship?: Yes Additional Social history: Quit smoking 1984. Lives with in [place]. Retired, helps care for grandkids.
[2024-02-17 23:25] LABS: Lactate 1.4 mmol/L (0.6-1.4)
[2024-02-17 23:26] LABS: Abs Immature Grans 0.01 10^3/uL (0.0-0.06); Absolute Basophil Count 0.08 10^3/uL (0.0-0.2); Absolute Eosinophil Count 0.29 10^3/uL (0.0-0.7); Absolute Lymphocyte Count 0.88 10^3/uL (1.2-3.4); Absolute Monocyte Count 0.78 10^3/uL (0.1-0.8); Basophils % 1.1 %; Eosinophils % 4.1 %; HCT 43.4 % (36.0-46.0); HGB 14.4 g/dL (11.2-15.7); Immature Grans % 0.1 %; Lymphocytes % 12.3 %; MCH 30.4 pg (27.0-33.0); MCHC 33.2 % (32.0-36.0); MCV 92 fL (80-95); Monocytes % 10.9 %; Neutrophils % 71.5 %; Platelet Count 159 10^3/uL (130-400); RBC 4.73 10^6/uL (3.93-5.22); RDW 13.8 % (11.7-14.6); RDW-SD 47.1 fL; WBC 7.14 10^3/uL (4.4-10.8)
[2024-02-17 23:43] LABS: ALT 58 U/L (14-59); AST 69 U/L (15-37); Albumin 3.8 g/dL (3.4-5.0); Alkaline Phosphatase 147 U/L (46-116); Anion Gap 11.8 mmol/L (3-11); BUN 11 mg/dL (7-18); Bilirubin, Total 1.1 mg/dL (0.2-1.0); CO2 24.2 mmol/L (21.0-32.0); CREATININE 1.1 mg/dL (0.55-1.02); Calcium 9.2 mg/dL (8.5-10.1); Chloride 103 mmol/L (98-107); Estimated GFR 56.46 (mL/min/1.73m2); Glucose 105 mg/dL (74-106); Sodium 139 mmol/L (136-145); Total Protein 7.8 g/dL (6.4-8.2)
[2024-02-17 23:56] LABS: Procalcitonin 0.1 ng/mL
[2024-02-18] VITALS (9 sets, daily range): BP systolic 130–143; BP diastolic 54–63; PULSE 80–88; RESP 15–28; O2SAT 98
[2024-02-18] MEDS: Normal Saline 500 ML IV (00:08)
[2024-02-18 00:09] LABS: COVID-19 PCR Negative (Negative); Influenza A PCR Negative (Negative); Influenza B PCR Negative (Negative); RSV PCR Negative (Negative)
[2024-02-18 00:10] LABS: Bilirubin Small (Negative); Blood Moderate (Negative); Clarity Clear (Clear); Glucose Negative (Negative); Ketones Trace mg/dL (Negative); Leukocyte Esterase Negative (Negative); Nitrite Negative (Negative); Specific Gravity >= 1.030 (1.005-1.025); pH 6.5 (5-8)
[2024-02-18 00:11] LABS: Source Nasopharynx
--- NOTE | 2024-02-18 00:15 | DI.VRAD_ITS ---
PROCEDURE INFORMATION: Exam: XR Chest Exam date and time: 02/17/2024 11:37 PM Age: 63 years old Clinical indication: Patient HX: Fever, eval for pnemonia TECHNIQUE: Imaging protocol: Radiologic exam of the chest. Views: 1 view. COMPARISON: CR XR PORTABLE CHEST AP 05/21/2022 10:15 AM FINDINGS: Lungs: Unremarkable. No consolidation. Pleural spaces: Unremarkable. No pleural effusion. No pneumothorax. Heart/Mediastinum: Unremarkable. No cardiomegaly. Bones/joints: Unremarkable. IMPRESSION: No acute findings. Dictated and Authenticated by: Michael Nation MD. Ordering:GURWINDER Wu MD
[2024-02-18 00:17] LABS: Bacteria Rare HPF (Negative); C & S Indicated? C&S Done As Ordered; Epithelial Cells Moderate HPF (Negative); Mucus Trace (Negative); RBC 20-50 HPF (0-2); WBC 0-2 HPF (0-5)
--- NOTE | 2024-02-18 00:17 | DI.VRAD_ITS ---
PROCEDURE INFORMATION: Exam: CT Abdomen And Pelvis Without Contrast Exam date and time: 02/17/2024 11:43 PM Age: 63 years old Clinical indication: Prior surgery; Surgery date: 6+ months; Surgery type: Cholecystectomy and ectopic ; Patient HX: L flank pain, eval for stone, HX of renal stones TECHNIQUE: Imaging protocol: Computed tomography of the abdomen and pelvis without contrast. Radiation optimization: All CT scans at this facility use at least one of these dose optimization techniques: automated exposure control; mA and/or kV adjustment per patient size (includes targeted exams where dose is matched to clinical indication); or iterative reconstruction. COMPARISON: CT RENAL COLIC WO 09/09/2022 4:43 AM FINDINGS: Liver: Hepatic steatosis. Gallbladder and bile ducts: Status post cholecystectomy. Pancreas: Normal. No ductal dilation. Spleen: Normal. No splenomegaly. Adrenal glands: Normal. No mass. Kidneys and ureters: Simple left renal cyst, no further follow-up required. No hydronephrosis. Stomach and bowel: Colonic diverticula. No bowel obstruction. Appendix: No evidence of appendicitis. Intraperitoneal space: Unremarkable. No free air. No significant fluid collection. Vasculature: Unremarkable. No abdominal aortic aneurysm. Lymph nodes: Unremarkable. No enlarged lymph nodes. Urinary bladder: Unremarkable as visualized. Reproductive: Status post hysterectomy. Bones/joints: Unremarkable. No acute fracture. Soft tissues: Unremarkable. IMPRESSION: No acute finding. Dictated and Authenticated by: Michael Nation MD. Ordering:GURWINDER Wu MD
[2024-02-18 00:18] LABS: Crystals Negative HPF (Negative)
[2024-02-19 10:35] LABS: Lyme Ab w Rflx to Lyme Confirm Negative (Negative)
[2024-02-20 19:10] LABS: Anaplasma phagocytophilum Negative (Negative); B. miyamotoi PCR Negative (Negative); Babesia divergens/MO-1 Negative (Negative); Babesia duncani Negative (Negative); Babesia microti Negative (Negative); Ehrlichia chaffeensis Negative (Negative); Ehrlichia ewingii/canis Negative (Negative); Ehrlichia muris eauclairensis Negative (Negative)
== END 2024-02-18 00:55 | disposition home or self-care (01) ==
PROVIDERS: Emergency Provider Student in an Organized Health Care Education/Training Program; PCP Internal Medicine
DX: N20.1 Calculus of ureter (principal); I10 Essential (primary) hypertension; E78.5 Hyperlipidemia, unspecified; Z79.82 Long term (current) use of aspirin
CPT/HCPCS: 80053; 84145; 87040; 87637; 87798; 96360; 99285; 71045; 74176; 81003; 81015; 83605; 85025; 86618; 87086; 99284

== ENCOUNTER 2024-02-23 10:04 | Emergency (ER) | payer MEDICAID, SELFPAY ==
[2024-02-23 10:08] VITALS: BP 123/82; PULSE 73; RESP 16; TEMP 36.7; O2SAT 97
--- NOTE | 2024-02-23 10:30 | DI.RAD_ITS ---
Exam(s) XR HEEL RT OS CALCIS EXAM: XR HEEL RT OS CALCIS CLINICAL HISTORY: pain in heel, tender. TECHNIQUE: 2D digital imaging was performed. COMPARISON: No exams were available for comparison FINDINGS: Two views-lateral and Kannan axial view There is no evidence of calcaneus fracture. No inferior calcaneal spur nor enthesophytes. Bone dens ity normal. No osseous lesions. Subtalar joint appears unremarkable. No plantar fascia calcificati on. No radiopaque foreign body. No evidence of osteomyelitis No evidence of osseous tarsal coalition. IMPRESSION: No significant osseous findings in the calcaneus DATA REPOSITORY: RADIATION DOSE DELIVERED:
--- NOTE | 2024-02-23 10:48 | W.ED.GENAD ---
Discharge Plan Disposition Patient Disposition: Home Condition: Stable Discharge Details Clinical Impression: Plantar fasciitis of right foot, Sprain of right foot Primary Care Provider: Kerry Ascencio ED Provider: Shon Angela Home Meds and New Rx's Prescriptions: Continued celecoxib [Celebrex] 100 mg capsule 100 mg PO BID diltiazem HCl 240 mg capsule,extended release 24 hr 240 mg PO DAILY citalopram [Celexa] 10 MG tablet 20 mg PO DAILY Patient Comments: 10 mg tab and 20 mg tab total 30. meclizine 12.5 MG tablet 25 mg PO TID PRN Patient Comments: prn rosuvastatin [Crestor] 20 MG tablet 40 mg PO DAILY acyclovir 200 MG capsule 200 mg PO DIRECTED PRN aspirin 81 mg tablet,delayed release (DR/EC) 81 mg PO DAILY ibuprofen 800 mg tablet 800 mg PO TID levothyroxine 75 mcg tablet 150 mcg PO DAILY Emgality Pen 120 mg/mL pen injector 120 mg subcut ONCE Qty: 1 11RF epinephrine 0.3 MG/SYR auto-injector 0.3 mg IJ PRN PRN (Reason: Anaphylaxis) Qty: 1 0RF mirabegron [Myrbetriq] 50 mg Tablet Extended Release 24 Hr 50 mg PO DAILY metformin 500 mg tablet extended release 24 hr 500 mg PO DAILY Patient Comments: TAKE ONE TABLET BY MOUTH EVERY DAY potassium citrate 10 mEq (1,080 mg) tablet extended release 10 meq PO BID Patient Comments: TAKE 1 TABLET BY MOUTH TWICE DAILY WITH FOOD cetirizine 10 mg Tablet 10 mg PO DAILY ezetimibe 10 mg tablet 10 mg PO DAILY Patient Comments: TAKE 1 TABLET BY MOUTH EVERY DAY Discharge Instructions Instructions: Foot Sprain (ED) Additional Instructions: Use orthopedic walking boot and crutches. Weight-bear as tolerated. Please follow-up with podiatry. Please take acetaminophen (tylenol) - 650mg every 6 hours by mouth as needed for pain. Please take ibuprofen as prescribed. Please contact your primary care physician to arrange follow-up. Return to the ER immediately for any worsening or new concerning symptoms. Referrals: Kerry Ascencio [Primary Care Provider] - Discharge Data Discharge Date/Time-TO BE ENTERED AT DEPARTURE: 02/23/24 13:23 HPI General Mode of arrival: ambulatory. Date/Time Provider Initiated Documentation: 02/23/24 10:21. Limitations to Documentation: no limitations. Information obtained by: patient. HPI Narrative: 63-year-old female presents with chief complaint of right heel pain. Patient states she has had pain in her right foot over the past 3 to 4 weeks. She was seen here in the emergency department for foot pain on 02/11/2024. She followed up with her PCP and has been using Tylenol to control pain. She was told pain likely plantar fasciitis and she was referred to see podiatry. She states yesterday she was stepping up onto a concrete pad and felt a pulling or popping sensation in the sole of her foot. Pain has significantly worsened since that time. She denies pain posterior right lower leg. No recent fluoroquinolone use. Related Data Home Medications Medication Instructions Recorded Confirmed citalopram 10 mg tablet (Celexa) 20 mg PO DAILY 10/08/13 02/23/24 meclizine 12.5 mg tablet 25 mg PO TID PRN 10/08/13 02/23/24 rosuvastatin 20 mg tablet (Crestor) 40 mg PO DAILY 10/08/13 02/23/24 epinephrine 0.3 mg/0.3 mL 0.3 mg (0.3 mL) IJ PRN PRN 07/21/16 02/23/24 injection, auto-injector Anaphylaxis ##1 acyclovir 200 mg capsule 200 mg PO DIRECTED PRN 06/01/17 02/23/24 cetirizine 10 mg tablet 10 mg PO DAILY 12/20/18 02/23/24 ezetimibe 10 mg tablet 10 mg PO DAILY 06/12/21 02/23/24 aspirin 81 mg tablet,delayed 81 mg PO DAILY 12/22/21 02/23/24 release diltiazem HCl 240 mg capsule,24 240 mg PO DAILY 01/09/23 02/23/24 hr,extended release mirabegron 50 mg tablet,extended 50 mg PO DAILY 01/09/23 02/23/24 release 24 hr (Myrbetriq) ibuprofen 800 mg tablet 800 mg PO TID 03/08/23 02/23/24 celecoxib 100 mg capsule (Celebrex) 100 mg PO BID 07/16/23 02/23/24 levothyroxine 75 mcg tablet 150 mcg PO DAILY 07/16/23 02/23/24 galcanezumab-gnlm 120 mg/mL 120 mg subcut ONCE #1 mL 11/29/23 02/23/24 subcutaneous pen injector (Emgality Pen) metformin 500 mg tablet,extended 500 mg PO DAILY 02/17/24 02/23/24 release 24 hr potassium citrate 10 mEq (1,080 10 meq PO BID 02/23/24 02/23/24 mg) tablet,extended release Previous Rx's Medication Instructions Recorded epinephrine 0.3 mg/0.3 mL 0.3 mg (0.3 mL) IJ PRN PRN 07/21/16 injection, auto-injector Anaphylaxis ##1 galcanezumab-gnlm 120 mg/mL 120 mg subcut ONCE #1 mL 11/29/23 subcutaneous pen injector (Emgality Pen) Allergies Allergy/AdvReac Type Severity Reaction Status Date / Time tetrabenazine Allergy Severe RASH,HIVES Verified 02/23/24 10:12 amoxicillin Allergy Intermediate Skin Rash Verified 02/23/24 10:12 hydrocodone [From Vicodin] Allergy Intermediate PRURITIS Verified 02/23/24 10:12 morphine Allergy Intermediate ITCHY, SICK Verified 02/23/24 10:12 peanut Allergy Intermediate Anaphylaxsi Verified 02/23/24 10:12 s tree nut Allergy Intermediate Anaphylaxsi Verified 02/23/24 10:12 s chlorhexidine Allergy Mild Skin Rash Verified 02/23/24 10:12 adhesive AdvReac Intermediate RASH AND Verified 02/23/24 10:12 SWELLING alcohol AdvReac Intermediate RASH Verified 02/23/24 10:12 [From Mastisol Liquid Adhesive] gum mastic AdvReac Intermediate RASH Verified 02/23/24 10:12 [From Mastisol Liquid Adhesive] methyl salicylate AdvReac Intermediate RASH Verified 02/23/24 10:12 [From Mastisol Liquid Adhesive] storax AdvReac Intermediate RASH Verified 02/23/24 10:12 [From Mastisol Liquid Adhesive] benzoin AdvReac Mild Skin Rash Verified 02/23/24 10:12 cat dander AdvReac Mild WATERY EYES Verified 02/23/24 10:12 milk AdvReac Unknown Diarrhea Verified 02/23/24 10:12 pollen extracts AdvReac Unknown Itching Verified 02/23/24 10:12 dog dander AdvReac WATERY EYES Verified 02/23/24 10:12 RAW FRUIT Allergy Unknown Swelling/Ed Uncoded 02/23/24 10:12 kit DUST AdvReac Unknown itchy eyes Uncoded 02/23/24 10:12 General Stated Complaint: Orthopedic MANNIE: 4 Review of Systems Constitutional Constitutional: Denies fever(s) Musculoskeletal Musculoskeletal: Reports as per HPI Exam Const General: cooperative and no acute distress Eyes Sclera: normal sclerae Resp Auscultation: clear to auscultation bilaterally, no rales, no rhonchi and no wheezes Cardio Rate: regular rate and not tachycardic Rhythm: regular rhythm Skin General skin exam: no rashes or lesions noted Neuro General: patient alert, patient awake and tone normal Extrem General: no edema Right lower extremity: lower leg Details: normal to inspection, ankle Details: normal to inspection and foot Details: tenderness Location: of the plantar foot Location: proximally and of the calcaneus Details: point tenderness, no edema and vascular exam Details: dorsalis pedis pulse present; no unusual warmth and no ecchymosis Course Vital Signs Vital signs: Vital Signs Temperature 36.7 C 02/23/24 10:08 Pulse 73 02/23/24 10:08 Respiratory Rate 16 02/23/24 10:08 Blood Pressure 123/82 02/23/24 10:08 Pulse Oximetry 97 02/23/24 10:08 Temperature 36.7 C 02/23/24 10:08 Temperature Source Temporal Artery Scan 02/23/24 10:08 Pulse 73 02/23/24 10:08 Respiratory Rate 16 02/23/24 10:08 Respiratory Effort Normal 02/23/24 10:30 Blood Pressure 123/82 02/23/24 10:08 Pulse Oximetry 97 02/23/24 10:08 Oxygen Delivery Method Room Air 02/23/24 10:08 Oxygen Flow Rate 0 02/23/24 10:08 Pain Level 5 02/23/24 10:30 Medical Decision Making 1054?- 63-year-old female here with severe pain in her plantar right proximal foot and calcaneus that worsened with stepping onto a raised platform yesterday. Patient has had right foot pain over the past few weeks and was planning on following up with a banana handler. She notes that she experienced a popping sensation in her foot with the onset of acute pain yesterday. Concern for sprain of the foot versus calcaneal fracture versus other. I will give ibuprofen and Tylenol. 1202 --x-ray of the right heel was reviewed interpreted by radiology: No acute findings. Patient will be provided short walking boot and crutches for support. She was advised weight-bear as tolerated. Plan for outpatient follow-up with podiatry. Quality:SDOH Health Related Social Needs: No Data to Display PFSH All Active Problems (Updated 03/13/24 @ 00:08 by FABIOLA GUAJARDO) Sprain of right foot (Acute) Plantar fasciitis of right foot (Acute) Left flank pain (Acute) Fever (Acute) Lumbosacral spondylosis without myelopathy (Acute) Pes anserinus bursitis of right knee (Acute) 40 mg Depo-Medrol injection: 07/06/2023 History of total right knee replacement (Acute ~2009) Migraine headache without aura (Acute) Daily headache (Acute) Papilledema (Acute) Vision changes (Acute) Discomfort of right eye (Acute) Elevated AST (SGOT) (Acute) Chest pain (Acute) Traumatic tear of left rotator cuff (Acute ~03/2022) Bronchitis, acute (Acute) Actinic keratoses (Acute) Seborrheic keratoses, inflamed (Acute) Atypical nevus (Acute) Lipoma of arm (Acute) Coronary arteriosclerosis (Acute) Mild intermittent asthma without complication (Acute 11/08/15) Medical History Visual disturbance Uterine leiomyosarcoma Urticaria, idiopathic Solitary lung nodule Post-acute COVID-19 syndrome Onychomycosis Lack of energy Idiopathic osteoarthritis Hypoglycemia Hyperlipidemia Herpesviral vesicular dermatitis Fear of flying Eustachian tube disorder Dizziness and giddiness Contact dermatitis Carpal tunnel syndrome BPPV (benign paroxysmal positional vertigo) Angina pectoris Allergic rhinitis Normal colonoscopy (~01/13/22) MOISES (obstructive sleep apnea) Chronic constipation Rectal bleeding SVT (supraventricular tachycardia) Rectal bleed Screening for colon cancer Left wrist pain Skin lesion COVID-19 Impingement syndrome of left shoulder Bursitis of left shoulder Vulvovaginitis (11/03/13) Arthritis of left acromioclavicular joint s/p distal clavicle excision, 04/28/20 De Quervain's tenosynovitis, left Tendonitis of left rotator cuff Injection: 08/04/2019 Atypical chest pain Pt. states They don't know what it is, Dr. Oglesby thinks its just muscular, and not cardiac related Trochanteric bursitis, left hip S/P ITB tenotomy and bursal debridement DOS: 12/24/18 Dr. Perez Trochanteric bursitis of right hip Seborrheic keratosis (12/15/16) upper back of left arm Complete tear of right rotator cuff (12/03/17) Asthma HTN (hypertension) GERD (gastroesophageal reflux disease) pt. denies this Chronic back pain Hypothyroidism Migraines Depression Elevated cholesterol Overactive bladder Fatigue Colicky RUQ abdominal pain Insomnia Surgical History History of arthroscopy of left shoulder (02/10/22) History of colonoscopy (~01/13/22) Hx of breast biopsy Left rotator cuff tear s/p arthroscopic rotator cuff repair 04/28/20 s/p arthroscopic revision rotator cuff repair: 08/11/2020 Right carpal tunnel syndrome S/P ECTR: 03/23/2020 Left carpal tunnel syndrome S/P ECTR: 03/23/2020 History of bursectomy S/P ITB tenotomy and bursal debridement DOS: 12/24/18 Dr. Perez History of cardiac cath Non-obstructive CAD, Elevated LV end diastolic pressure. no stents Status post right rotator cuff repair Right repeat rotator cuff repair, also has had left RTC repaired. Date of surgery: 04/16/18 Dr. Perez Acquired absence of both cervix and uterus (11/08/15) , Ectopic (~1983) Oophrectomy, Left with hyst Abdominal hysterectomy (~2008) for benign reasons FACET INJECTIONS Excision, Skin Mass (12/15/16) Cholecystectomy (02/01/16) Arthroplasty of knee X2 bilat Family History Mother Essential hypertension Spinal stenosis Stroke Atrial fibrillation Father Essential hypertension Heart disease Myocardial infarction Brother Atrial fibrillation Essential hypertension Prostate cancer Spinal stenosis Social History Smoking/Tobacco Use Status: Former Tobacco Use Quit Date: 09/17/84 Pack-years: 12 Smoking risk assessment performed?: Yes Alcohol Intake: never Drug use: Never Substance use type: does not use Household members: significant other Number of Children: 1 Current gender identity: female Seatbelt use: sometimes Do you feel safe at home: Yes Do you feel safe in your relationship?: Yes Additional Social history: Quit smoking 1984. Lives with in [place]. Retired, helps care for grandkids.
[2024-02-23] MEDS: Acetaminophen 325 MG TAB 650 MG PO (10:54)
[2024-02-23] MEDS: Ibuprofen 600 MG TAB PO (10:54)
--- NOTE | 2024-02-23 11:33 | DI.VRAD_ITS ---
PROCEDURE INFORMATION: Exam: XR Right Calcaneus Exam date and time: 02/23/2024 11:10 AM Age: 63 years old Clinical indication: Pain; Heel; Right TECHNIQUE: Imaging protocol: Radiologic exam of the right calcaneus. Views: 2 or more views. COMPARISON: CR XR FOOT RT COMPLETE 02/11/2024 1:43 PM FINDINGS: Bones/joints: Normal. Soft tissues: Normal. IMPRESSION: No acute findings. Dictated and Authenticated by: Christiano Ramirez MD. Ordering:JAZZY Menendez MD
[2024-02-23 12:23] VITALS: BP 120/80; PULSE 70; RESP 16; TEMP 36.7; O2SAT 97
== END 2024-02-23 13:23 | disposition home or self-care (01) ==
PROVIDERS: Emergency Provider Student in an Organized Health Care Education/Training Program; PCP Internal Medicine
DX: M72.2 Plantar fascial fibromatosis (principal); S93.601A Unspecified sprain of right foot, initial encounter; X50.9XXA Other and unspecified overexertion or strenuous movements or postures, initial encounter; Y93.01 Activity, walking, marching and hiking
CPT/HCPCS: 99283; 73650

== ENCOUNTER → 2024-04-10 13:12 | Outpatient (CLI) | payer MEDICAID, SELFPAY ==
--- NOTE | 2024-04-10 | DI.RAD_ITS ---
Exam(s) XR HIP RT COMPLETE AP PELVIS EXAM: XR HIP RT COMPLETE AP PELVIS CLINICAL HISTORY: RLQ PAIN, R10.31. TECHNIQUE: 2D digital imaging was performed. COMPARISON: CR XR ABDOMEN FLAT PLATE from 10/24/2023 FINDINGS: Two views No evidence of pelvic nor hip fracture nor significant osseous lesions. There is no hip joint space narrowing. Small sick density off the superolateral aspect of the right hip acetabular rim is unchan ged from 10/24/2023. There does not appear to be hip joint space narrowing and there are no osteophy dior evident on the lateral view. No concerning osseous lesions evident IMPRESSION: Findings as above but unchanged from 10/24/2023. No acute osseous findings in the pelvis-hips. Righ t hip bony excrescence again noted off the superolateral aspect of acetabulum which is unchanged from 10/24/2023. This is probably associated with the labrum at this level. DATA REPOSITORY: RADIATION DOSE DELIVERED:
--- OUTSIDE RECORDS SUMMARY | 2024-04-10 13:37 | XMS_ITS | Continuity of Care Document ---
Author Organization [facility] Address [address] [place] [address] Care Team Providers Care Jewel Hole Driller Name Role Phone Kerry Ascencio Primary Care Physician Encounter [facility] Date(s): 04/09/23 - 04/09/23 [facility] [address] [place] [address] Discharge Disposition: Home Allergies, Adverse Reactions, Alerts Substance Reaction Severity Status MILK Diarrhoea Unknown Active TREE AND SHRUB POLLEN Itching Unknown Active PEANUT Abdominal pain Anaphylactic reaction Unknown Active ADHESIVE TAPE Skin rash Unknown Active ANIMAL DANDER Sneezing Other Unknown Active PINEAPPLE 1 Other Unknown Active amoxicillin Skin rash Unknown Active morphine Nausea Unknown Active acetaminophen-oxycodone Itching Unknown Acti ve benzoin topical Skin rash Unknown Active tetanus toxoids Skin rash Unknown Active Fluarix Rash Unknown Active 1raw fruits, burning in the mouth Assessment and Plan Future Appointments Future Scheduled Tests Laboratory* CBC w/ Diff 11/02/22 * Comprehensive Metabolic Panel 11/02/22 * Thyroid Stimulating Hormone 06/30/22 * Thyroid Stimulating Hormone 08/03/22 * Thyroid Stimulating Hormone 11/02/22 * Urinalysis with Micro if Indicated and Culture if Indicated 11/02/22 Radiology* MG Mammo Screening Bilateral w/ Óscar 04/09/23 * BD Bone Density DEXA Axial Skeleton 11/09/22 Immunizations Given and Recorded Vaccine Date Status Refusal Reason zoster vaccine, inactivated 1 12/14/21 Recorded zoster vaccine, inactivated 12/14/21 Recorded SARS-CoV-2 (COVID-19) mRNA BNT-162b2 vax 07/05/21 Recorded SARS-CoV-2 (COVID-19) mRNA BNT-162b2 vax 06/03/21 Recorded tetanus/diphth/pertuss (Tdap) adult/adol 04/24/17 Recorded influenza virus vaccine, inactivated 07/18/00 Ankit rded tetanus-diphth toxoids (Td) adult/adol 09/17/87 Re corded Not Given Vaccine Date Status Refusal Reason zoster vaccine, inactivated 2 04/06/22 Not Given Patient Refuses zoster vaccine, inactivated 3 02/11/19 Not Given Patient Refuses 1Result Comment: Educational information provided . pt tolerated well 2Result Comment: Patient Declined Last Modified by Kerry Ascencio, [place] 02-11-2019 3Result Comment: Patient Declined Last Modified by Kerry Ascencio, [place] 02-11-2019, 19:01 Medications acyclovir 200 mg oral capsule See Instructions, PRN other (see comment), take one tablet every 4-6 hours as needed Start Date: 02/15/22 Status: Ordered aspirin 81 mg oral delayed release tablet 81 mg = 1 tab, Oral, Daily, # 30 tab, 0 Refill(s) Start Date: 02/17/22 Status: Ordered celecoxib 100 mg oral capsule 100 mg = 1 cap, Oral, BID, PRN pain Start Date: 02/15/22 Status: Ordered cetirizine 10 mg oral tablet See Instructions, TAKE ONE TABLET BY MOUTH EVERY DAY, # 90 tab, 3 Refill(s), Pharmacy: [facility], 180, cm, 09/15/22 11:55:00 EST, Height/Length Dosing, 83, kg, 09/15/22 11:55:00 EST, Weight Dosing Start Date: 01/26/23 Status: Ordered citalopram 20 mg oral tablet 20 mg = 1 tab, Oral, Daily, # 90 tab, 3 Refill(s), Pharmacy: [facility], 180, cm, 09/15/22 11:55:00 EST, Height/Length Dosing, 83, kg, 09/15/22 11:55:00 EST, Weight Dosing Start Date: 12/12/22 Status: Ordered Dilt-XR 120 mg/24 hours oral capsule, extended release 120 mg = 1 cap, Oral, Daily, # 90 cap, 3 Refill(s), Pharmacy: [facility], 180, cm, 09/15/22 11:55:00 EST, Height/Length Dosing, 83, kg, 09/15/22 11:55:00 EST, Weight Dosing Start Date: 12/12/22 Stop Date: 12/07/23 Status: Ordered EPINEPHrine 0.3 mg injectable kit 0.3 mg = 1 EA, IM, Once, Inject 1 syringe as directed Start Date: 02/15/22 Status: Ordered ezetimibe 10 mg oral tablet 10 mg = 1 tab, Oral, Daily Start Date: 02/15/22 Status: Ordered Flonase Allergy Relief 50 mcg/inh nasal spray 1 sprays, Nostril-Both, BID, # 15.8 mL, 0 Refill(s), Pharmacy: [facility], 180, cm, 09/15/22 11:55:00 EST, Height/Length Dosing, 83, kg, 09/15/22 11:55:00 EST, Weight Dosing Start Date: 12/15/22 Status: Ordered ibuprofen 800 mg oral tablet 1 tab, Oral, every 8 hr, PRN NEEDED FOR ARTHRITIS, # 90 tab, 1 Refill(s), Pharmacy: [facility], 180, cm, 09/15/22 11:55:00 EST, Height/Length Dosing, 83, kg, 09/15/22 11:55:00 EST, Weight Dosing Start Date: 01/17/23 Status: Ordered levothyroxine 125 mcg (0.125 mg) oral tablet 125 mcg = 1 tab, Oral, Daily, # 90 tab, 3 Refill(s), Pharmacy: [facility] Start Date: 08/03/22 Status: Ordered meclizine 25 mg oral tablet 25 mg = 1 tab, Oral, TID, PRN as needed for dizziness, # 30 tab, 1 Refill(s), Pharmacy: [facility], 180, cm, 09/15/22 11:55:00 EST, Height/Length Dosing, 83, kg, 09/15/22 11:55:00 EST, Weight Dosing Start Date: 02/13/23 Status: Ordered Myrbetriq 50 mg oral tablet, extended release 50 mg = 1 tab, Oral, Daily, do not crush or chew, # 90 tab, 3 Refill(s), Pharmacy: [facility], 180, cm, 09/15/22 11:55:00 EST, Height/Length Dosing, 83, kg, 09/15/22 11:55:00 EST, Weight Dosing Start Date: 11/27/22 Stop Date: 11/22/23 Status: Ordered nitroglycerin 0.4 mg sublingual tablet 0.4 mg = 1 tab, SL Start Date: 02/15/22 Status: Ordered PROCHAMBER AERO SPACER PROCHAMBER AERO SPACER, 0 Refill(s) Start Date: 04/19/22 Status: Ordered rizatriptan 5 mg oral tablet 5 mg = 1 tab, Oral, Daily, PRN as needed for migraine headache, may repeat dose every 2 hours up toa maximum of 2 doses in 24 hours, # 6 tab, 1 Refill(s), Pharmacy: [facility], 180, cm, 09/15/22 11:55:00 EST, Height/Length Dosing, 83, kg, 09/15... Start Date: 11/21/22 Status: Ordered rosuvastatin 40 mg oral tablet 40 mg = 1 tab, Oral, Daily, # 90 tab, 3 Refill(s), Pharmacy: [facility], 180, cm, 09/15/22 11:55:00 EST, Height/Length Dosing, 83, kg, 09/15/22 11:55:00 EST, Weight Dosing Start Date: 09/27/22 Status: Ordered Problem List Condition Confirmation Course Effective Dates Status H ealth Status Informant Hypothyroidism Confirmed Active Adult health examination Confirmed Active Allergic rhinitis Confirmed Active Angina pectoris Confirmed Active Asthma Confirmed Active Benign paroxysmal positional vertigo Confirmed 11/11/18 Active Bursitis of left shoulder Confirmed 09/15/21 Active Carpal tunnel syndrome Confirmed 09/15/21 Active Chronic constipation Confirmed Active Contact dermatitis Confirmed Active Coronary arteriosclerosis Confirmed 11/11/18 Active Depressive disorder Confirmed Active Dizziness and giddiness Confirmed 09/15/21 Active Eustachian tube disorder Confirmed Active Fatigue Confirmed 09/15/21 Active Fear of flying Confirmed 09/15/21 Active Gastroesophageal reflux disease Confirmed 09/15/21 Active Herpesviral vesicular dermatitis Confirmed Active Hypertensive disorder Confirmed Active Hypoglycemia Confirmed Active Idiopathic osteoarthritis Confirmed Active Insomnia Confirmed 09/15/21 Active Lack of energy Confirmed 09/15/21 Active Hyperlipidemia Confirmed Active Obesity Confirmed Active Obstructive sleep apnea syndrome Confirmed Active Onychomycosis Confirmed Active Papilledema Confirmed Active Overactive bladder Confirmed 09/15/21 Active Post-acute COVID-19 Confirmed 08/26/21 Active Migraine Confirmed Active Seborrheic keratosis Confirmed 12/15/16 Active Solitary nodule of lung Confirmed 09/07/21 Active Trochanteric bursitis of right hip Confirmed 09/15/21 Active Urticaria Confirmed 09/15/21 Active Uterine leiomyoma Confirmed 04/28/08 Active Visual disturbance Confirmed 04/24/21 Active Procedures Procedure Date Related Diagnosis Body Site Status Cystourethroscopy, with uret eroscopy and/or pyeloscopy; with lithotripsy including insertion of indwelling ureteral stent (eg, Foster or double-J type) 09/14/22 Completed Shoulder repair 1 02/09/22 Complet ed Colonoscopy 2 01/12/22 Completed Biopsy of breast 3 01/05/22 Comple caity Excision of lesion of skin 4 07/07/21 Completed Arthroscopic repair of rotator cuff 08/10/20 Completed Arthroscopic repair of rotator cuff 04/27/20 Completed Arthroscopy of knee joint 5 03/30/20 Completed Carpal tunnel release 03/22/20 Com pleted Bursectomy 6 01/05/19 Completed Cardiac catheterization 11/05/17 C ompleted Cholecystectomy 01/31/16 Completed Arthroscopy of knee joint 7 12/16/11 Completed Colonoscopy 09/16/11 Completed Total knee replacement 8 09/16/09 Completed Hysterectomy 07/13/09 Completed Salpingectomy Unilateral Ectopic 9 Completed Surgical debridement of left trochanteric bursa with IT band tenotomy 10 Completed Tubal ligation Completed 1Revision extensive debridement and arthroscopic distal clavical excision. 2moderate sigmoid colon [facility]o [place] nipple discharge, bx consistent with papilloma no dysplasia or atypia 4hemangiomas of LT chest and breast (Dr. Sykes [facility]) 5bilat knees 6left hip 7left knee [id number] 9Salpingectomy Unilateral Ectopic 10Surgical debridement of left trochanteric bursa with IT band tenotomy Social History Social History Type Response Tobacco Former tobacco user Tobacco Use:. 1 Sex Female 1quit in 1984 Patient Care team information Care Team Personnel Name: Kerry Ascencio Position: Physician Member Role: Primary Care Physician Address: Address: [facility] [address] Care Team Related Persons Name: YESICA RANGEL Address: Home Name: CHUY THORNTON Name: YESICA ANTONIO Address: Home
--- OUTSIDE RECORDS SUMMARY | 2024-04-10 13:37 | XMS_ITS | Continuity of Care Document ---
Author Organization [facility] Address [address] [place] [address] Care Team Providers Care Selling Manager Name Role Phone Kerry Ascencio Primary Care Physician Encounter [facility] Date(s): 03/02/23 - 03/02/[address] [address] Encounter Diagnosis Papilledema(Discharge Diagnosis) - 03/02/23 Hypertensive disorder(Discharge Diagnosis) - 03/02/23 Hypothyroidism(Discharge Diagnosis) - 03/02/23 Discharge Disposition: Home or Self Care Attending Physician: Rhiannon Sheppard NP Admitting Physician: Rhiannon Sheppard NP Referring Physician: Rhiannon Sheppard DRYWALL SPRAYER Allergies, Adverse Reactions, Alerts Substance Reaction Severity [...] Indicated and Culture if Indicated 11/02/22 Radiology* BD Bone Density DEXA Axial Skeleton 11/09/22 [...] Patient Declined Last Modified by Kerry Ascencio, Corporate Communications Specialist 02-11-2019 3Result Comment: Patient Declined Last Modified by Kerry Ascencio, Corporate Communications Specialist 02-11-2019, 19:01 Medications acyclovir 200 mg oral [...] DAY, # 90 tab, 3 Refill(s), Pharmacy: [facility], 180, cm, 09/15/22 11:55:00 EST, Height/Length Dosing, 83, kg, 09/15/22 11:55:00 EST, Weight Dosing Start Date: 01/26/23 Status: Ordered citalopram 20 mg oral tablet 20 mg = 1 tab, Oral, Daily, # 90 tab, 3 Refill(s), Pharmacy: [facility] #[facility], 180, cm, 09/15/22 11:55:00 EST, Height/Length Dosing, 83, kg, 09/15/22 11:55:00 EST, Weight Dosing Start Date: 12/12/22 Status: Ordered Dilt-XR 120 mg/24 hours oral capsule, extended release 120 mg = 1 cap, Oral, Daily, # 90 cap, 3 Refill(s), [facility]: [facility], 180, cm, 09/15/22 11:55:00 EST, Height/Length [...] BID, # 15.8 mL, 0 Refill(s), [facility]: [facility], 180, cm, 09/15/22 11:55:00 EST, Height/Length Dosing, 83, kg, 09/15/22 11:55:00 EST, Weight Dosing Start Date: 12/15/22 Status: Ordered ibuprofen 800 mg oral tablet 1 tab, Oral, every 8 hr, PRN NEEDED FOR ARTHRITIS, # 90 tab, 1 Refill(s), [facility], 180, cm, 09/15/22 11:55:00 EST, Height/Length Dosing, 83, kg, 09/15/22 11:55:00 EST, Weight Dosing Start Date: 01/17/23 Status: Ordered levothyroxine 125 mcg (0.125 mg) oral tablet 125 mcg = 1 tab, Oral, Daily, # 90 tab, 3 Refill(s), [facility]acy: [facility] Start Date: 08/03/22 Status: Ordered meclizine 25 mg oral tablet 25 mg = 1 tab, Oral, TID, PRN as needed for dizziness, # 30 tab, 1 Refill(s), [facility]: [facility], 180, cm, 09/15/22 11:55:00 EST, Height/Length Dosing, 83, kg, 09/15/22 11:55:00 EST, Weight Dosing Start Date: 02/13/23 Status: Ordered Myrbetriq 50 mg oral tablet, extended release 50 mg = 1 tab, Oral, Daily, do not crush or chew, # 90 tab, 3 Refill(s), Pharmacy: [facility] #[facility], 180, cm, 09/15/22 11:55:00 EST, Height/Length [...] hours, # 6 tab, 1 Refill(s), Pharmacy: [facility] #[facility], 180, cm, 09/15/22 11:55:00 EST, Height/Length Dosing, 83, kg, 09/15... Start Date: 11/21/22 Status: Ordered rosuvastatin 40 mg oral tablet 40 mg = 1 tab, Oral, Daily, # 90 tab, 3 Refill(s), Pharmacy: [facility] #[facility], 180, cm, 09/15/22 11:55:00 EST, Height/Length [...] distal clavical excision. 2moderate sigmoid colon [facility]icul[facility], c/o RT nipple discharge, bx consistent with papilloma no dysplasia or atypia 4hemangiomas of LT chest and breast (Dr. Sykes [facility]) 5bilat knees 6left hip 7left knee 21577 9Salpingectomy Unilateral Ectopic 10Surgical debridement of left trochanteric bursa with IT band tenotomy Social History Social History Type Response Tobacco Former tobacco user Tobacco Use:. 1 Sex Female 1quit in 1984 Patient Care team information Care Team Personnel Name: Kerry Ascencio Position: Physician Member Role: Primary Care Physician Address: Address: [facility] [id number] [place] [address] Care Team Related Persons Name: YESICA RANGEL Address: Home Name: CHUY THORNTON Name: YESICA ANTONIO Address: Home
--- OUTSIDE RECORDS SUMMARY | 2024-04-10 13:37 | XMS_ITS | Continuity of Care Document ---
Author Organization [facility] Address [address] [place] [address] Care Team Providers Care Sales Support Advisor Name Role Phone Kerry Ascencio Primary Care Physician [phone] Encounter [facility] Date(s): 04/06/23 - 04/06/23 [facility] [address] [place] [address] Discharge Disposition: Home Allergies, Adverse Reactions, Alerts [...] BD Bone Density DEXA Axial Skeleton 11/09/22 * MG Mammo Digital Screening Bilateral 04/05/23 Immunizations Given and Recorded Vaccine Date Status [...] Patient Declined Last Modified by Kerry Ascencio, Astrobiologist 02-11-2019 3Result Comment: Patient Declined Last Modified by Kerry Ascencio, Astrobiologist 02-11-2019, 19:01 Medications acyclovir 200 mg oral [...] DAY, # 90 tab, 3 Refill(s), Pharmacy: [facility], 180, cm, 09/15/22 11:55:00 EST, Height/Length Dosing, 83, kg, 09/15/22 11:55:00 EST, Weight Dosing Start Date: 01/26/23 Status: Ordered citalopram 20 mg oral tablet 20 mg = 1 tab, Oral, Daily, # 90 tab, 3 Refill(s), [facility]acy: [facility], 180, cm, 09/15/22 11:55:00 EST, Height/Length Dosing, 83, kg, 09/15/22 11:55:00 EST, Weight Dosing Start Date: 12/12/22 Status: Ordered Dilt-XR 120 mg/24 hours oral capsule, extended release 120 mg = 1 cap, Oral, Daily, # 90 cap, 3 Refill(s), Pharmacy: [facility] #94, 180, cm, 09/15/22 11:55:00 EST, Height/Length [...] # 15.8 mL, 0 Refill(s), [facility]acy: [facility], 180, cm, 09/15/22 11:55:00 EST, Height/Length Dosing, 83, kg, 09/15/22 11:55:00 EST, Weight Dosing Start Date: 12/15/22 Status: Ordered ibuprofen 800 mg oral tablet 1 tab, Oral, every 8 hr, PRN NEEDED FOR ARTHRITIS, # 90 tab, 1 Refill(s), Pharmacy: [facility], 180, cm, 09/15/22 11:55:00 EST, Height/Length Dosing, 83, kg, 09/15/22 11:55:00 EST, Weight Dosing Start Date: 01/17/23 Status: Ordered levothyroxine 125 mcg (0.125 mg) oral tablet 125 mcg = 1 tab, Oral, Daily, # 90 tab, 3 Refill(s), Pharmacy: [facility] Start Date: 08/03/22 Status: Ordered meclizine 25 mg oral tablet 25 mg = 1 tab, Oral, TID, PRN as needed for dizziness, # 30 tab, 1 Refill(s), Pharmacy: [facility], 180, cm, 09/15/22 11:55:00 EST, Height/Length Dosing, 83, kg, 09/15/22 11:55:00 EST, Weight Dosing Start Date: 02/13/23 Status: Ordered Myrbetriq 50 mg oral tablet, extended release 50 mg = 1 tab, Oral, Daily, do not crush or chew, # 90 tab, 3 Refill(s), Pharmacy: [facility], 180, cm, 09/15/22 11:55:00 EST, Height/Length [...] hours, # 6 tab, 1 Refill(s), Pharmacy: [facility] #[facility], 180, cm, 09/15/22 11:55:00 EST, Height/Length Dosing, 83, kg, 09/15... Start Date: 11/21/22 Status: Ordered rosuvastatin 40 mg oral tablet 40 mg = 1 tab, Oral, Daily, # 90 tab, 3 Refill(s), Pharmacy: [facility] #94, 180, cm, 09/15/22 11:55:00 EST, Height/Length [...] distal clavical excision. 2moderate sigmoid colon [facility], c/o RT nipple discharge, bx consistent with papilloma no dysplasia or atypia 4hemangiomas of LT chest and breast (Dr. Sykes [facility]) 5bilat knees 6left hip 7left knee 00211 9Salpingectomy Unilateral Ectopic 10Surgical debridement of left trochanteric bursa with IT band tenotomy Social History Social History Type Response Tobacco Former tobacco user Tobacco Use:. 1 Sex Female 1quit in 1984 Patient Care team information Care Team Personnel Name: Kerry Ascencio Position: Physician Member Role: Primary Care Physician Address: Address: [facility] [address] Care Team Related Persons Name: YESICA RANGEL Address: Home Name: CHUY THORNTON Name: YESIAC ANTONIO Address: Home
--- OUTSIDE RECORDS SUMMARY | 2024-04-10 13:37 | XMS_ITS | Continuity of Care Document ---
Author Organization [facility] Address [address] [place] [address] Care Team Providers Care Gas Meter Reader Name Role Phone Kerry Ascencio Primary Care Physician [phone] Encounter [facility] Date(s): 01/03/24 - 01/03/[address] [address] Discharge Disposition: Home or Self Care Attending Physician: Rhiannon Sheppard NP Admitting Physician: Rhiannon Sheppard NP Referring Physician: Rhiannon Sheppard SCHOOL INSPECTOR Allergies, Adverse Reactions, Alerts Substance Reaction Severity [...] Plan Future Appointments Future Scheduled Tests Laboratory* Thyroid Stimulating Hormone 07/09/23 * Hemoglobin A1c 09/21/23 Radiology* XR Spine Lumbosacral 2 or 3 Views 04/25/23 Immunizations Given and Recorded Vaccine Date Status [...] Patient Declined Last Modified by Kerry Ascencio, Childrens Club Attendant 02-11-2019 3Result Comment: Patient Declined Last Modified by Kerry Ascencio, Childrens Club Attendant 02-11-2019, 19:01 Medications acyclovir 200 mg oral capsule See Instructions, PRN other (see comment), take one tablet every 4-6 hours as needed, # 30 tab, 0 Refill(s), [facility]acy: [facility] #[id number], 154.94, cm, 04/16/23 9:16:00 EDT, Height, 83, kg, 09/15/22 11:55:00 EST, Weight Dosing Start Date: 08/14/23 Status: Ordered aspirin 81 mg oral delayed release tablet 81 mg = 1 tab, Oral, Daily, # 30 tab, 0 Refill(s) Start Date: 02/17/22 Status: Ordered celecoxib 100 mg oral capsule 100 mg = 1 cap, Oral, BID, PRN pain Start Date: 02/15/22 Status: Ordered cetirizine 10 mg oral tablet 10 mg = 1 tab, Oral, Daily, # 90 tab, 3 Refill(s), Pharmacy: [facility] #[id number], 154.94, cm, 04/16/23 9:16:00 EDT, Height, 83, kg, 09/15/22 11:55:00 EST, Weight Dosing Start Date: 09/14/23 Status: Ordered citalopram 10 mg oral tablet 10 mg = 1 tab, Oral, Daily, Total dose of 30 mg daily, 1 20 mg tab and 1 10 mg tab, # 90 tab, 3 Refill(s), Pharmacy: [facility] #[id number], 154.94, cm, 04/16/23 9:16:00 EDT, Height, 89.45, kg, 12/05/23 9:09:00 EDT, Weight Dosing Start Date: 12/05/23 Stop Date: 11/29/24 Status: Ordered citalopram 20 mg oral tablet 20 mg = 1 tab, Oral, Daily, Total daily dose 30 mg, 1 20 mg tab + 1 10 mg tab, # 90 tab, 3 Refill(s), Pharmacy: [facility] #[id number], 154.94, cm, 04/16/23 9:16:00 EDT, Height, 89.45, kg, 12/05/23 9:09:00 EDT, Weight Dosing Start Date: 12/05/23 Status: Ordered dilTIAZem 240 mg/24 hours oral capsule, extended release Oral, 240 Unknown, 4 Refill(s), Take 1 capsule by mouth daily., 0 Refill(s) Start Date: 04/13/23 Status: Ordered Emgality Prefilled Pen 120 mg/mL subcutaneous solution 120 mg =, Subcutaneous, every month, [facility] neurology, # 1 EA, 0 Refill(s) Start Date: 12/05/23 Stop Date: 01/04/24 Status: Ordered Emgality Prefilled Syringe 120 mg/mL subcutaneous solution 120 mg =, 0 Refill(s) Start Date: 12/05/23 Status: Ordered EpiPen 2-Dionisio 0.3 mg injectable kit 0.3 mg =, IM, Once, # 1 EA, 0 Refill(s), Pharmacy: [facility] #[id number], 180, cm, 09/15/22 11:55:00 EST, Height/Length Dosing, 83, kg, 09/15/22 11:55:00 EST, Weight Dosing Start Date: 04/25/23 Status: Ordered ezetimibe 10 mg oral tablet 10 mg = 1 tab, Oral, Daily, # 90 tab, 3 Refill(s), Pharmacy: [facility] #[id number], 180, cm, 09/15/22 11:55:00 EST, Height/Length Dosing, 83, kg, 09/15/22 11:55:00 EST, Weight Dosing Start Date: 07/11/23 Status: Ordered Freestyle precision Jose Freestyle test strips Freestyle precision Jose Freestyle test strips, Check BS once daily, Supply, See instructions, # 100EA, 0 Refill(s), Pharmacy: [facility] #[id number] Start Date: 12/13/23 Status: Ordered ibuprofen 800 mg oral tablet 1 tab, Oral, every 8 hr, PRN NEEDED FOR ARTHRITIS, # 90 tab, 0 Refill(s), Pharmacy: [facility] #[id number], 154.94, cm, 04/16/23 9:16:00 EDT, Height, 89.95, kg, 10/23/23 14:51:00 EST, Weight Dosing Start Date: 12/03/23 Status: Ordered ibuprofen 800 mg oral tablet See Instructions, TAKE 1 TABLET BY MOUTH EVERY 8 HOURS NEEDED FOR ARTHRITIS, # 90 tab, 0 Refill(s), Pharmacy: [facility] #[id number], 154.94, cm, 04/16/23 9:16:00 EDT, Height, 89.45, kg, 12/05/23 9:09:00 EDT, Weight Dosing Start Date: 12/24/23 Status: Ordered levothyroxine 150 mcg (0.15 mg) oral tablet 150 mcg = 1 tab, Oral, Daily, increased dose. on an empty stomach, # 90 tab, 3 Refill(s), [facility]acy:[facility] #[id number], 180, cm, 09/15/22 11:55:00 EST, Height/Length Dosing, 83, kg, 09/15/2211:55:00 EST, Weight Dosing Start Date: 06/11/23 Status: Ordered meclizine 25 mg oral tablet 25 mg = 1 tab, Oral, TID, PRN as needed for dizziness, # 30 tab, 1 Refill(s), Pharmacy: [facility]94, 180, cm, 09/15/22 11:55:00 EST, Height/Length Dosing, 83, kg, 09/15/22 11:55:00 EST, Weight Dosing Start Date: 02/13/23 Status: Ordered metFORMIN 500 mg oral tablet, extended release 500 mg = 1 tab, Oral, Daily, # 30 tab, 0 Refill(s) Start Date: 01/03/24 Status: Ordered Myrbetriq 50 mg oral tablet, extended release 50 mg = 1 tab, Oral, Daily, do not crush or chew, # 90 tab, 3 Refill(s), Pharmacy: [facility], 180, cm, 09/15/22 11:55:00 EST, Height/Length Dosing, 83, kg, 09/15/22 11:55:00 EST, Weight Dosing Start Date: 11/27/22 Stop Date: 11/22/23 Status: Ordered omeprazole 20 mg oral delayed release capsule 20 mg = 1 cap, Oral, Daily, # 90 cap, 3 Refill(s), Pharmacy: [facility] #[id number], 154.94, cm, 04/16/23 9:16:00 EDT, Height, 83, kg, 09/15/22 11:55:00 EST, Weight Dosing Start Date: 09/18/23 Status: Ordered potassium citrate 10 mEq oral tablet, extended release 10 mEq = 1 tab, Oral, BID, with food, # 180 tab, 3 Refill(s), Pharmacy: [facility] #[id number], 154.94, cm, 04/16/23 9:16:00 EDT, Height, 83, kg, 09/15/22 11:55:00 EST, Weight Dosing Start Date: 10/19/23 Stop Date: 10/13/24 Status: Ordered PROCHAMBER AERO SPACER PROCHAMBER AERO SPACER, 0 Refill(s) Start Date: 04/19/22 Status: Ordered rizatriptan 5 mg oral tablet 1 tab, Oral, Daily, PRN NEEDED FOR MIGRAINE HEADACHE, MAY REPEAT DOSE EVERY 2 HOURS UP TO A. MAXIMUM OF 2 DOSES IN 24 HOURS, # 6 tab, 0 Refill(s), Pharmacy: [facility] #[id number], 154.94, cm, 04/16/23 9:16:00 EDT, Height, 89.95, kg, 10/23/23 14:51:00 EST, Weight Dosing Start Date: 12/03/23 Status: Ordered rosuvastatin 40 mg oral tablet 40 mg = 1 tab, Oral, Daily, taking at bedtime brings best results, # 90 tab, 3 Refill(s), Pharmacy:[facility] #[id number], 180, cm, 09/15/22 11:55:00 EST, Height/Length Dosing, 83, kg, 09/15/2211:55:00 EST, Weight Dosing Start Date: 06/01/23 Status: Ordered Problem List Condition Confirmation Course Effective Dates Status H ealth Status Informant Adult health examination Confirmed Active Allergic rhinitis [...] Hypertensive disorder Confirmed Active Hypoglycemia Confirmed Active Hypothyroidism Confirmed Active Idiopathic osteoarthritis Confirmed Active Insomnia Confirmed 09/15/21 Active Kidney stones Confirmed Active Lack of energy Confirmed 09/15/21 Active Hyperlipidemia Confirmed Active KOROMA (nonalcoholic steatohepatitis) Confirmed Active Obesity Confirmed Active Obstructive sleep apnea syndrome Confirmed Active Obstructive sleep apnea Confirmed Active Onychomycosis Confirmed Active Papilledema Confirmed Active Overactive bladder Confirmed 09/15/21 Active Post-acute COVID-19 Confirmed 08/26/21 Active Prediabetes Confirmed Active Migraine Confirmed Active RUQ abdominal pain Confirmed Active Seborrheic keratosis Confirmed 12/15/16 Active Solitary nodule of lung Confirmed 09/07/21 Active Hepatic fibrosis, stage 3 Confirmed Active Supraventricular tachycardia Confirmed 12/21/22 Active Trochanteric bursitis of right hip Confirmed [...] distal clavical excision. 2moderate [facility]moid [facility], c/o RT nipple discharge, bx consistent with papilloma no dysplasia or atypia 4hemangiomas of LT chest and breast (Dr. Sykes [facility]) 5bilat knees 6left hip 7left knee [address]39 9Salpingectomy Unilateral Ectopic 10Surgical debridement of left trochanteric bursa with IT band tenotomy Results Laboratory List Name Date .Urinalysis POCT 01/03/24 Urinalysis Microscopic 01/03/24 Amylase Level 01/03/24 Automated Diff 01/03/24 C-Reactive Protein (CRP) 01/03/24 CBC w/ Diff 01/03/24 Comprehensive Metabolic Panel (CMP) 01/02 Lipase Level 01/03/24 Sedimentation Rate (ESR) 01/03/24 Most recent to oldest [Reference Range]: 1 WBC [5.0-10.0 x10^3/mcL] 7.7 x10^3/mcL (01/03/24 1:25 PM) RBC [4.1-5.3 x10^6/mcL] 4.9 x10^6/mcL (01/03/24 1:25 PM) Neutro Auto [40.0-75.0 %] 54.9 % (01/03/24 1:25 PM) Lymph Auto [20.0-50.0 %] 32.4 % (01/03/24 1:25 PM) [place] Auto [2.0-15.0 %] 8.9 % (01/03/24 1:25 PM) Basophil Auto [0.0-1.0 %] 0.8 % (01/03/24 1:25 PM) BUN [7-18 mg/dL] 10 mg/dL (01/03/24 1:25 PM) UA WBC [0-3] 5-10 *ABN* (01/03/24 4:18 PM) Glucose Level [74-106 mg/dL] 101 mg/dL (01/03/24 1:25 PM) Potassium Level [3.5-5.1 mmol/L] 3.5 mmo l/L (01/03/24 1:25 PM) MCV [80.0-96.0 fL] 91.0 fL (01/03/24 1:25 PM) CRP [<=10.0 mg/L] 10.7 mg/L *HI* (01/03/24 1:25 PM) AST [15-37 unit/L] 39 unit/L *HI* (01/03/24 1:25 PM) Amylase Level [25-115 unit/L] 58 unit/L (01/03/24 1:25 PM) ALT [14-59 unit/L] 40 unit/L (01/03/24 1:25 PM) MCHC [31.0-35.0 g/dL] 33.0 g/dL (01/03/24 1:25 PM) Sodium Level [136-145 mmol/L] 141 mmol/L (01/03/24 1:25 PM) UA RBC [0-2] 0-2 (01/03/24 4:18 PM) Hct [37.0-47.0 %] 44.5 % (01/03/24 1:25 PM) UA Bacteria Few /HPF *ABN* (01/03/24: PM) Lipase Level [16-77 unit/L] 37 unit/L 1 (01/03/24 1:25 PM) Calcium Level [8.5-10.1 mg/dL] 9.2 mg/dL (01/03/24 1:25 PM) Albumin Level [3.4-5.0 g/dL] 3.4 g/dL (01/03/24 1:25 PM) Protein Total [6.4-8.2 g/dL] 7.6 g/dL (01/03/24 1:25 PM) MCH [26.0-32.0 pg] 30.1 pg (01/03/24 1:25 PM) Neutro Absolute 4.2 x10^3/mcL *NA* (01/03/24 1:25 PM) Bilirubin Total [0.2-1.0 mg/dL] 0.8 mg/d L (01/03/24 1:25 PM) Hgb [12.0-16.0 g/dL] 14.7 g/dL (01/03/24 1:25 PM) Alk Phos [46-146 unit/L] 144 unit/L (01/03/24 1:25 PM) UA Mucous Moderate /HPF *ABN* (01/03/24 4:18 PM) Platelets [130-450 x10^3/mcL] 247 x10^3/ mcL (01/03/24 1:25 PM) CO2 [21-32 mmol/L] 27 mmol/L (01/03/24 1:25 PM) UA Squam Epithelial [None Seen] Moderate *ABN* (01/03/24 4:18 PM) eGFR Non-AA [>=60] 67 (01/03/24 1:25 PM) eGFR AA [>=60] 67 (01/03/24 1:25 PM) Chloride Level [98-107 mmol/L] 104 mmol/ L (01/03/24 1:25 PM) RDW-CV [11.5-14.5 %] 13.2 % (01/03/24 1:25 PM) Imm Gran Auto [0.0-0.9 %] 0.3 % (01/03/24 1:25 PM) Slide Review Not Indicated (01/03/24 1:25 PM) UA Culture Ind?. Indicated (01/03/24 4:18 PM) Method of Collect POC Clean Catch *NA* (01/03/24 4:18 PM) Specific [place], Ur POC >1.030 *NA* (01/03/24 4:18 PM) Specimen Color POC Dark Yellow *NA* (01/03/24 4:18 PM) Glucose, Urine POC [Negative] Negative (01/03/24 4:18 PM) Bilirubin, Urine POC [Negative] Positive *ABN* (01/03/24 4:18 PM) Ketones, Urine POC [Negative] Trace *ABN* (01/03/24 4:18 PM) Blood, Urine POC [Negative] Trace *ABN* (01/03/24 4:18 PM) pH, Urine POC 6 *NA* (01/03/24 4:18 PM) Protein, Urine POC [Negative] 1+ *ABN* (01/03/24 4:18 PM) Urobilinogen, Urine POC Normal (01/03/24 4:18 PM) Nitrite, Urine POC [Negative] Negative (01/03/24 4:18 PM) Leuk Esterase, Urine POC [Negative] Nega tive (01/03/24 4:18 PM) Clarity, Urine POC [Clear] Clear (01/03/24 4:18 PM) Creatinine Level [0.55-1.02 mg/dL] 0.95 mg/dL (01/03/24 1:25 PM) Eos, Auto [1.0-6.0 %] 2.7 % (01/03/24 1:25 PM) ESR, W[place]gren [0-30 mm/hr] 25 mm/hr (01/03/24 1:25 PM) 1Interpretive Data: Effective 07/06/22, [facility] has switched to a revised Lipase test.Note new ReferenceRange. Orders for Microbiology Reports Name Date Urine Culture 01/03/24 Microbiology Reports TEST:Urine Culture STATUS:Order in Progress BODY SITE: SOURCE:Urine COLLECTED DATE/TIME:01/03/24 4:18 PM PRELIMINARY REPORT No growth at 24 hours. Social History Social History Type Response Tobacco Former tobacco user Tobacco Use:. 1 Sex Female 1quit in 1984 Patient Care team information Care Team Personnel Name: Kerry Ascencio Position: Physician Member Role: Primary Care Physician Address: Address: [facility] [address] [address]- Care Team Related Persons Name: YESICA RANGEL Name: CHUY THORNTON Name: YESICA ANTONIO
--- OUTSIDE RECORDS SUMMARY | 2024-04-10 13:37 | XMS_ITS | Continuity of Care Document ---
Author Organization [facility] Address [address] [place] [address] Care Team Providers Care Tripe Scraper Name Role Phone Kerry Ascencio Primary Care Physician [phone] Encounter [facility] Date(s): 03/25/24 - 03/25/[address] [address] Discharge Disposition: Home or Self Care Attending Physician: Kerry Ascencio Admitting Physician: Kerry Ascencio Referring Physician: Kerry Ascencoi Allergies, Adverse Reactions, Alerts Substance Reaction Severity Status MILK Diarrhoea Unknown Active TREE AND SHRUB POLLEN Itching Unknown Active PEANUT Abdominal pain Anaphylactic reaction Unknown Active PINEAPPLE 1 Other Unknown Active amoxicillin Skin rash Unknown Active morphine Nausea Unknown Active acetaminophen-oxycodone Itching Unknown Acti ve benzoin topical Skin rash Unknown Active tetanus toxoids Skin rash Unknown Active Fluarix Rash Unknown Active ADHESIVE TAPE Skin rash Unknown Active ANIMAL DANDER Sneezing Other Unknown Active 1raw fruits, burning in the mouth Assessment and Plan Future Appointments Future Scheduled Tests Laboratory* Thyroid Stimulating Hormone 03/26/24 * Hemoglobin A1c 09/21/23 Radiology* MRI Brain w/ + w/o Contrast 03/25/24 * MRI Spine Cervical w/o Contrast 03/25/24 * XR Spine Lumbosacral 2 or 3 Views [...] Patient Declined Last Modified by Kerry Ascencio, Bevel Polisher 02-11-2019 3Result Comment: Patient Declined Last Modified by Kerry Ascencio, Bevel Polisher 02-11-2019, 19:01 Medications acyclovir 200 mg oral capsule See Instructions, PRN other (see comment), take one tablet every 4-6 hours as needed, # 30 tab, 0 Refill(s), Pharmacy: [facility] #[id number], 154.94, cm, 04/16/23 9:16:00 EDT, Height, 83, [...] Daily, # 90 tab, 3 Refill(s), Pharmacy: [facility] #[id number], 154.94, cm, 04/16/23 9:16:00 EDT, Height, 83, kg, 09/15/22 11:55:00 EST, Weight Dosing Start Date: 09/14/23 Status: Ordered citalopram 10 mg oral tablet 10 mg = 1 tab, Oral, Daily, Total dose of 30 mg daily, 1 20 mg tab and 1 10 mg tab, # 90 tab, 3 Refill(s), Pharmacy: [facility] #[id number], 154.94, cm, 04/16/23 9:16:00 EDT, Height, 89.45, kg, 12/05/23 9:09:00 EDT, Weight Dosing Start Date: 12/05/23 Stop Date: 11/29/24 Status: Ordered citalopram 20 mg oral tablet 20 mg = 1 tab, Oral, Daily, Total daily dose 30 mg, 1 20 mg tab + 1 10 mg tab, # 90 tab, 3 Refill(s), Pharmacy: [facility] #[id number], 154.94, cm, 04/16/23 9:16:00 EDT, Height, 89.45, kg, 12/05/23 9:09:00 EDT, Weight Dosing Start Date: 12/05/23 Status: Ordered dilTIAZem 240 mg/24 hours oral capsule, extended release Oral, 240 Unknown, 4 Refill(s), Take 1 capsule by mouth daily., 0 Refill(s) Start Date: 04/13/23 Status: Ordered Emgality Prefilled Pen 120 mg/mL subcutaneous solution 120 mg =, Subcutaneous, every month, [facility] neurology, # 1 EA, 0 Refill(s) Start Date: 12/05/23 Stop Date: 01/04/24 Status: Ordered Emgality Prefilled Syringe 120 mg/mL subcutaneous solution 120 mg =, 0 Refill(s) Start Date: 12/05/23 Status: Ordered EpiPen 2-Dionisio 0.3 mg injectable kit 0.3 mg =, IM, Once, # 1 EA, 0 Refill(s), Pharmacy: [facility] #[id number], 180, cm, 09/15/22 11:55:00 EST, Height/Length Dosing, 83, kg, 09/15/22 11:55:00 EST, Weight Dosing Start Date: 04/25/23 Status: Ordered ezetimibe 10 mg oral tablet 1 tab, Oral, Daily, # 90 tab, 3 Refill(s), Pharmacy: [facility] #[id number], 154.94, cm, 04/16/23 9:16:00 EDT, Height, 86.15, kg, 02/14/24 10:43:00 EDT, Weight Dosing Start Date: 03/24/24 Status: Ordered Flonase Allergy Relief 50 mcg/inh nasal spray 1 sprays, Nostril-Both, BID, shake well before using, # 9.9 mL, 1 Refill(s), Pharmacy: [facility] #[id number], 154.94, cm, 04/16/23 9:16:00 EDT, Height, 85.65, kg, 03/25/24 8:31:00 EDT, Weight Dosing Start Date: 03/25/24 Status: Ordered Freestyle precision Jose Freestyle test strips Freestyle precision Jose Freestyle test strips, Check BS once daily, Supply, See instructions, # 100EA, 0 Refill(s), Pharmacy: [facility] #[id number] Start Date: 12/13/23 Status: Ordered ibuprofen 800 mg oral tablet 1 tab, Oral, every 8 hr, PRN NEEDED FOR ARTHRITIS, # 90 tab, 0 Refill(s), Pharmacy: [facility] #[id number], 154.94, cm, 04/16/23 9:16:00 EDT, Height, 86.15, kg, 02/14/24 10:43:00 EDT, Weight Dosing Start Date: 03/24/24 Status: Ordered levothyroxine 175 mcg (0.175 mg) oral tablet 175 mcg = 1 tab, Oral, Daily, Dose increased. Please D/C 150 mcg dose, # 90 tab, 3 Refill(s), Pharmacy: [facility] #[id number], 154.94, cm, 04/16/23 9:16:00 EDT, Height, 85.65, kg, 03/25/24 8:31:00 EDT, Weight Dosing Start Date: 03/26/24 Status: Ordered meclizine 25 mg oral tablet 25 mg = 1 tab, Oral, TID, PRN as needed for dizziness, # 30 tab, 1 Refill(s), Pharmacy: [facility] #[id number], 154.94, cm, 04/16/23 9:16:00 EDT, Height, 86.15, kg, 02/14/24 10:43:00 EDT, WeightDosing Start Date: 03/03/24 Status: Ordered metFORMIN 500 mg oral tablet, extended release 500 mg = 1 tab, Oral, Daily, # 30 tab, 0 Refill(s) Start Date: 01/03/24 Status: Ordered Myrbetriq 50 mg oral tablet, extended release 50 mg = 1 tab, Oral, Daily, do not crush or chew, # 90 tab, 3 Refill(s), Pharmacy: [facility] #[id number], 180, cm, 09/15/22 11:55:00 EST, Height/Length Dosing, 83, kg, 09/15/22 11:55:00 EST, Weight Dosing Start Date: 11/27/22 Stop Date: 11/22/23 Status: Ordered omeprazole 20 mg oral delayed release capsule 20 mg = 1 cap, Oral, Daily, # 90 cap, 3 Refill(s), Pharmacy: [facility] #[id number], 154.94, cm, 04/16/23 9:16:00 EDT, Height, 83, kg, 09/15/22 11:55:00 EST, Weight Dosing Start Date: 09/18/23 Status: Ordered potassium citrate 10 mEq oral tablet, extended release 10 mEq = 1 tab, Oral, BID, with food, # 180 tab, 3 Refill(s), Pharmacy: [facility] #[id number], 154.94, cm, 04/16/23 9:16:00 EDT, Height, 83, [...] HOURS, # 6 tab, 0 Refill(s), Pharmacy: [facility] #[id number], 154.94, cm, 04/16/23 9:16:00 EDT, Height, 89.95, kg, 10/23/23 14:51:00 EST, Weight Dosing Start Date: 12/03/23 Status: Ordered rosuvastatin 40 mg oral tablet 40 mg = 1 tab, Oral, Daily, taking at bedtime brings best results, # 90 tab, 3 Refill(s), Pharmacy:[facility] #[id number], 180, cm, 09/15/22 11:55:00 EST, Height/Length Dosing, [...] distal clavical excision. 2moderate sigmoid colon diverticulosis [facility], c/o RT nipple discharge, bx consistent with papilloma no dysplasia or atypia 4hemangiomas of LT chest and breast (Dr. Sykes [facility]) 5bilat knees 6left hip 7left knee [address] 9Salpingectomy Unilateral Ectopic 10Surgical debridement of left trochanteric bursa with IT band tenotomy Results Laboratory List Name Date Comprehensive Metabolic Panel (CMP) Hemoglobin A1c 03/25/24 Lipid Panel 03/25/24 Thyroid Stimulating Hormone (TSH) 03/25/24 Most recent to oldest [Reference Range]: 1 BUN [7-18 mg/dL] 11 mg/dL (03/25/24 9:27 AM) Cholesterol Total [50-200 mg/dL] 176 mg/ dL (03/25/24 9:27 AM) LDL [0-130 mg/dL] 99 mg/dL (03/25/24 9:27 AM) Glucose Level [74-106 mg/dL] 100 mg/dL (03/25/24 9:27 AM) Potassium Level [3.5-5.1 mmol/L] 3.7 mmo l/L (03/25/24 9:27 AM) HDL [40-60 mg/dL] 42 mg/dL (03/25/24 9:27 AM) AST [15-37 unit/L] 72 unit/L *HI* (03/25/24 9:27 AM) ALT [14-59 unit/L] 53 unit/L (03/25/24 9:27 AM) Sodium Level [136-145 mmol/L] 141 mmol/L (03/25/24 9:27 AM) Triglycerides [0-150 mg/dL] 176 mg/dL *HI* (03/25/24 9: AM) Calcium Level [8.5-10.1 mg/dL] 8.9 mg/dL (03/25/24 9: AM) Albumin Level [3.4-5.0 g/dL] 3.4 g/dL (03/25/24 9: AM) Protein Total [6.4-8.2 g/dL] 7.5 g/dL (03/25/24 9: AM) Bilirubin Total [0.2-1.0 mg/dL] 0.6 mg/d L (03/25/24 9: AM) Alk Phos [46-146 unit/L] 126 unit/L (03/25/24: AM) CO2 [21-32 mmol/L] 28 mmol/L (03/25/24 9: AM) TSH [0.358-3.740 mcIntlUnit/mL] 7.523 mc IntlUnit/mL *HI* (03/25/24 9:27 AM) eGFR Non-AA [>=60] 85 (03/25/24 9: AM) eGFR AA [>=60] 85 (03/25/24 9: AM) Hemoglobin A1c [4.0-5.6 %] 5.8 % 1 *HI* (03/25/24 9: AM) Chloride Level [98-107 mmol/L] 105 mmol/ L (03/25/24 9: AM) Creatinine Level [0.55-1.02 mg/dL] 0.78 mg/dL (03/25/24 9:27 AM) 1Interpretive Data: New test method effective 10-16-23. Establishment of new HA1c baseline is recommended. The following A1c interpretive data reflect the 2017 [place] [employer] (ADA) guidelinesand will be reported with each A1c result: Normal: <5.7% Prediabetes: 5.7 - 6.4% Diagnostic for diabetes (if confirmed): ???6.5% Social History Social History Type Response Tobacco Former tobacco user Tobacco Use:. 1 Sex Female 1quit in 1984 Patient Care team information Care Team Personnel Name: Kerry Ascencio Position: Physician Member Role: Primary Care Physician Address: Address: [facility] [address] [address]- Care Team Related Persons Name: YESICA RANGEL Name: CHUY THORNTON Address: [address], [id number] Name: YESICA ANTONIO
--- OUTSIDE RECORDS SUMMARY | 2024-04-10 13:37 | XMS_ITS | Continuity of Care Document ---
Author Organization [facility] Address [address] [place] [address] Care Team Providers Care Millinery Copyist Name Role Phone Kerry Ascencio Primary Care Physician [facility] 11[facility]23/[facility] - 11/23/[address] [address] Encounter Diagnosis Elevated liver enzymes(Discharge Diagnosis) - 11/23/22 Discharge Disposition: Home or Self Care Attending Physician: Kerry Ascencio Admitting Physician: Kerry Ascencio Referring Physician: Kerry Ascencio Allergies, Adverse Reactions, Alerts Substance Reaction Severity [...] Reason zoster vaccine, inactivated 1 12/14/21 Recorded SARS-CoV-2 (COVID-19) mRNA BNT-162b2 vax 10/19/21 Recorded SARS-CoV-2 (COVID-19) mRNA BNT-162b2 vax 06/03/21 [...] Patient Declined Last Modified by Kerry Ascencio, Quantitative Analyst Marketing 02-11-2019 3Result Comment: Patient Declined Last Modified by Kerry Ascencio, Quantitative Analyst Marketing 02-11-2019, 19:01 Medications acetaminophen-codeine 300 mg-30 mg oral tablet 1 tab, Oral, every 4 hr, PRN as needed for pain, may use 2 for severe pain, # 12 tab, 0 Refill(s), Pharmacy: [facility] #94, 180, cm, 09/15/22 11:55:00 EST, Height/Length Dosing, 83, kg, 09/15/22 11:55:00 EST, Weight Dosing Start Date: 09/19/22 Stop Date: 09/26/22 Status: Ordered acyclovir 200 mg oral capsule See Instructions, PRN other (see comment), take one tablet every 4-6 hours as needed Start Date: 02/15/22 Status: Ordered Advair HFA 115 mcg-21 mcg/inh inhalation aerosol 2 puffs, Inhale, BID, # 12 g, 0 Refill(s), Pharmacy: [facility] #94 Start Date: 05/25/22 Stop Date: 06/24/22 Status: Ordered aspirin 81 mg oral delayed release tablet 81 mg = 1 tab, Oral, Daily, # 30 tab, 0 Refill(s) Start Date: 02/17/22 Status: Ordered celecoxib 100 mg oral capsule 100 mg = 1 cap, Oral, BID Start Date: 02/15/22 Status: Ordered cetirizine 10 mg oral tablet 10 mg = 1 tab, Oral, Daily Start Date: 02/15/22 Status: Ordered citalopram 10 mg oral tablet 10 mg = 1 tab, Oral, Daily, Take 1 daily with a 20mg tablet for a total of 30mg daily, # 90 tab, 0 Refill(s), Pharmacy: [facility] #[id number] Start Date: 08/31/22 Status: Ordered citalopram 20 mg oral tablet 20 mg = 1 tab, Oral, Daily Start Date: 02/15/22 Status: Ordered cyclobenzaprine 10 mg oral tablet 10 mg = 1 tab, Oral, TID, PRN as needed for muscle spasm, # 16 tab, 0 Refill(s), Pharmacy: [facility] #94 Start Date: 08/24/22 Status: Ordered EPINEPHrine 0.3 mg injectable kit 0.3 mg = 1 EA, IM, Once, Inject 1 syringe as directed Start Date: 02/15/22 Status: Ordered ezetimibe 10 mg oral tablet 10 mg = 1 tab, Oral, Daily Start Date: 02/15/22 Status: Ordered Flonase Allergy Relief 50 mcg/inh nasal spray 1 sprays, Nostril-Both, BID, # 15.8 mL, 0 Refill(s), Pharmacy: [facility] #94, 180, cm, 09/15/22 11:55:00 EST, Height/Length Dosing, 83, kg, 09/15/22 11:55:00 EST, Weight Dosing Start Date: 11/21/22 Status: Ordered Gentle Laxative 5 mg oral delayed release tablet 5 mg = 1 tab, Oral, Once, as directed Start Date: 02/15/22 Status: Ordered ibuprofen 800 mg oral tablet 1 tab, Oral, every 8 hr, PRN NEEDED FOR ARTHRITIS, # 90 tab, 1 Refill(s), Pharmacy: [facility]94, 180, cm, 09/15/22 11:55:00 EST, Height/Length Dosing, 83, kg, 09/15/22 11:55:00 EST, Weight Dosing Start Date: 11/04/22 Status: Ordered levothyroxine 125 mcg (0.125 mg) oral tablet 125 mcg = 1 tab, Oral, Daily, # 90 tab, 3 Refill(s), Pharmacy: [facility] #94 Start Date: 08/03/22 Status: Ordered meclizine 25 mg oral tablet 25 mg = 1 tab, Oral, TID, PRN as needed for dizziness, # 30 tab, 1 Refill(s), [facility]: [facility]94 Start Date: 08/02/22 Status: Ordered nitroglycerin 0.4 mg sublingual tablet 0.4 mg = 1 tab, SL Start Date: 02/15/22 Status: Ordered ondansetron 8 mg oral tablet, disintegrating 8 mg = 1 tab, Oral, every 8 hr, PRN nausea, For use if pain med causes nausea, # 12 tab, 0 Refill(s), [facility]acy: [facility] #94, 180, cm, 09/15/22 11:55:00 EST, Height/Length Dosing, 83, kg, 09/15/22 11:55:00 EST, Weight Dosing Start Date: 09/19/22 Stop Date: 09/26/22 Status: Ordered pantoprazole 40 mg oral delayed release tablet 1 tab, Oral, Daily, # 90 tab, 1 Refill(s), Pharmacy: [facility] #94, 180, cm, 09/15/22 11:55:00 EST, Height/Length Dosing, 83, kg, 09/15/22 11:55:00 EST, Weight Dosing Start Date: 10/30/22 Status: Ordered ProAir HFA 90 mcg/inh inhalation aerosol See Instructions, PRN other (see comment), Inhale 2 puffs into the lungs every 4-6 hours as needed,# 8.5 g, 0 Refill(s), Pharmacy: [facility]94 Start Date: 05/09/22 Status: Ordered PROCHAMBER AERO SPACER PROCHAMBER AERO SPACER, 0 Refill(s) Start Date: 04/19/22 Status: Ordered rizatriptan 5 mg oral tablet 5 mg = 1 tab, Oral, Daily, PRN as needed for migraine headache, may repeat dose every 2 hours up toa maximum of 2 doses in 24 hours, # 6 tab, 1 Refill(s), Pharmacy: [facility] #94, 180, cm, 09/15/22 11:55:00 EST, Height/Length Dosing, 83, kg, 09/15... Start Date: 11/21/22 Status: Ordered rosuvastatin 40 mg oral tablet 40 mg = 1 tab, Oral, Daily, # 90 tab, 3 Refill(s), Pharmacy: [facility] #94, 180, cm, 09/15/22 11:55:00 EST, Height/Length Dosing, 83, kg, 09/15/22 11:55:00 EST, Weight Dosing Start Date: 09/27/22 Status: Ordered solifenacin 5 mg oral tablet 5 mg = 1 tab, Oral, Daily, may take 2 daily if needed, # 10 tab, 0 Refill(s), Pharmacy: [facility] #94, 180, cm, 09/15/22 11:55:00 EST, Height/Length Dosing, 83, kg, 09/15/22 11:55:00 EST, Weight Dosing Start Date: 09/16/22 Stop Date: 09/21/22 Status: Ordered Spiriva HandiHaler 18 mcg inhalation capsule 18 mcg = 1 cap, Inhale, every morning, After breo Start Date: 04/19/22 Status: Ordered tamsulosin 0.4 mg oral capsule 0.4 mg = 1 cap, Oral, Daily, # 30 cap, 0 Refill(s) Start Date: 09/15/22 Status: Ordered topiramate 50 mg oral tablet 50 mg = 1 tab, Oral, every night at bedtime Start Date: 02/15/22 Status: Ordered VALVD HOLDNG MIS CHAMBER VALVD HOLDNG MIS CHAMBER, 0 Refill(s) Start Date: 04/19/22 Status: Ordered verapamil 80 mg oral tablet See Instructions, Take 1 tablet daily at bedtime x 1 week then take 1 tablet bid x 1 week then increase to 1 TID This is to replace Diltiazem, # 270 tab, 1 Refill(s), Pharmacy: [facility] #94, 180,cm, 09/15/22 11:55:00 EST, Height/Length Dosing,... Start Date: 11/06/22 Status: Ordered Problem List Condition Confirmation Course Effective Dates Status H ealth Status Informant Adult health examination Confirmed Active Allergic rhinitis Confirmed Active Angina pectoris Confirmed Active Asthma Confirmed Active Benign paroxysmal positional vertigo Confirmed 11/11/18 Active Chronic constipation Confirmed Active Contact dermatitis Confirmed Active Coronary arteriosclerosis Confirmed 11/11/18 Active Depressive disorder Confirmed Active Eustachian tube disorder Confirmed Active Herpesviral vesicular dermatitis Confirmed Active Hyperlipidemia Confirmed Active Hypertensive disorder Confirmed Active Hypothyroidism Confirmed Active Idiopathic osteoarthritis Confirmed Active Obesity Confirmed Active Obstructive sleep apnea syndrome Confirmed Active Onychomycosis Confirmed Active Post-acute COVID-19 Confirmed 08/26/21 Active Migraine Confirmed Active Solitary nodule of lung Confirmed 09/07/21 Active Visual disturbance Confirmed 04/24/21 Active Procedures [...] distal clavical excision. 2moderate sigmoid colon diverticulosis [facility], c/o RT nipple discharge, bx consistent with papilloma no dysplasia or atypia 4hemangiomas of LT chest and breast (Dr. Sykes [facility]) 5bilat knees 6left hip 7left knee [address] 9Salpingectomy Unilateral Ectopic 10Surgical debridement of left trochanteric bursa with IT band tenotomy Social History Social History Type Response Tobacco Former tobacco user Tobacco Use:. 1 Sex Female 1quit in 1984 Patient Care team information Care Team Personnel Name: Kerry Ascencio Position: Physician Member Role: Primary Care Physician Address: Address: [facility] [place] [address]- Care Team Related Persons Name: YESICA RANGEL Address: Home Name: CHUY THORNTON Name: YESICA ANTONIO Address: Home Name: YESICA ANTONIO Address: Home
--- OUTSIDE RECORDS SUMMARY | 2024-04-10 13:37 | XMS_ITS | Continuity of Care Document ---
Author Organization [facility] Address [address] [place] [address] Care Team Providers Care Licensing Representative Name Role Phone Kerry Ascencio Primary Care Physician [phone] [facility] Date[facility]): 04/09/24 - 04/09/[address] [address] Discharge Disposition: Home or Self Care Attending [...] Stimulating Hormone 03/26/24 * Hemoglobin A1c 09/21/23 * Urinalysis with Micro if Indicated and Culture if Indicated 04/09/24 Radiology* MRI Brain w/o Contrast 03/26/24 * MRI Spine Cervical w/o Contrast 03/25/24 [...] Patient Declined Last Modified by Kerry Ascencio, Vice President Sales And Marketing 02-11-2019 3Result Comment: Patient Declined Last Modified by Kerry Ascencio, Vice President Sales And Marketing 02-11-2019, 19:01 Medications acyclovir 200 mg oral capsule See Instructions, PRN other (see comment), take one tablet every 4-6 hours as needed, # 30 tab, 0 Refill(s), Pharmacy: [facility] #[id number], 154.94, cm, 04/16/23 9:16:00 EDT, Height, 83, [...] Daily, # 90 tab, 3 Refill(s), [facility]acy: [facility] #[id number], 154.94, cm, 04/16/23 9:16:00 EDT, Height, 83, kg, 09/15/22 11:55:00 EST, Weight Dosing Start Date: 09/14/23 Status: Ordered citalopram 10 mg oral tablet 10 mg = 1 tab, Oral, Daily, Total dose of 30 mg daily, 1 20 mg tab and 1 10 mg tab, # 90 tab, 3 Refill(s), Pharmacy: [facility] #[id number], 154.94, cm, 04/16/23 9:16:00 EDT, Height, 89.45, kg, 12/05/23 9:09:00 EDT, Weight Dosing Start Date: 12/05/23 Stop Date: 11/29/24 Status: Ordered citalopram 20 mg oral tablet 20 mg = 1 tab, Oral, Daily, Total daily dose 30 mg, 1 20 mg tab + 1 10 mg tab, # 90 tab, 3 Refill(s), Pharmacy: [facility] #[id number], 154.94, cm, 04/16/23 9:16:00 EDT, Height, 89.45, kg, 12/05/23 9:09:00 EDT, Weight Dosing Start Date: 12/05/23 Status: Ordered dilTIAZem 240 mg/24 hours oral capsule, extended release Oral, 240 Unknown, 4 Refill(s), Take 1 capsule by mouth daily., 0 Refill(s) Start Date: 04/13/23 Status: Ordered Emgality Prefilled Pen 120 mg/mL subcutaneous solution 120 mg =, Subcutaneous, every month, [facility] neurology, # 1 EA, 0 Refill(s) Start Date: 12/05/23 Stop Date: 01/04/24 Status: Ordered EpiPen 2-Dionisio 0.3 mg injectable kit 0.3 mg =, IM, Once, # 1 EA, 0 Refill(s), Pharmacy: [facility] #[id number], 180, cm, 09/15/22 11:55:00 EST, Height/Length Dosing, 83, kg, 09/15/22 11:55:00 EST, Weight Dosing Start Date: 04/25/23 Status: Ordered ezetimibe 10 mg oral tablet 1 tab, Oral, Daily, # 90 tab, 3 Refill(s), Pharmacy: [facility] #[id number], 154.94, cm, 04/16/23 9:16:00 EDT, Height, 86.15, kg, 02/14/24 10:43:00 EDT, Weight Dosing Start Date: 03/24/24 Status: Ordered Flonase Allergy Relief 50 mcg/inh nasal spray 1 sprays, Nostril-Both, BID, shake well before using, # 9.9 mL, 1 Refill(s), Pharmacy: [facility] #[id number], 154.94, cm, 04/16/23 9:16:00 EDT, Height, 85.65, kg, 03/25/24 8:31:00 EDT, Weight Dosing Start Date: 03/25/24 Status: Ordered Freestyle precision Jose Freestyle test strips Freestyle precision Jose Freestyle test strips, Check BS once daily, Supply, See instructions, # 100EA, 0 Refill(s), Pharmacy: [facility] #[id number] Start Date: 12/13/23 Status: Ordered levothyroxine 175 mcg (0.175 mg) oral tablet 175 mcg = 1 tab, Oral, Daily, Dose increased. Please D/C 150 mcg dose, # 90 tab, 3 Refill(s), Pharmacy: [facility] #58, 154.94, cm, 04/16/23 9:16:00 EDT, Height, 85.65, kg, 03/25/24 8:31:00 EDT, Weight Dosing Start Date: 03/31/24 Status: Ordered meclizine 25 mg oral tablet 25 mg = 1 tab, Oral, TID, PRN as needed for dizziness, # 30 tab, 1 Refill(s), Pharmacy: [facility] #[id number], 154.94, cm, 04/16/23 9:16:00 EDT, Height, 86.15, [...] chew, # 90 tab, 3 Refill(s), Pharmacy: [facility] #94, 180, cm, 09/15/22 11:55:00 EST, Height/Length Dosing, 83, kg, 09/15/22 11:55:00 EST, Weight Dosing Start Date: 11/27/22 Stop Date: 11/22/23 Status: Ordered omeprazole 20 mg oral delayed release capsule 20 mg = 1 cap, Oral, Daily, # 90 cap, 3 Refill(s), Pharmacy: [facility] #[id number], 154.94, cm, 04/16/23 9:16:00 EDT, Height, 83, kg, 09/15/22 11:55:00 EST, Weight Dosing Start Date: 09/18/23 Status: Ordered potassium citrate 10 mEq oral tablet, extended release 10 mEq = 1 tab, Oral, BID, with food, # 180 tab, 3 Refill(s), Pharmacy: [facility] #[id number], 154.94, cm, 04/16/23 9:16:00 EDT, Height, 83, [...] HOURS, # 6 tab, 0 Refill(s), Pharmacy: [facility] #[id number], 154.94, cm, 04/16/23 9:16:00 EDT, Height, 89.95, kg, 10/23/23 14:51:00 EST, Weight Dosing Start Date: 12/03/23 Status: Ordered rosuvastatin 40 mg oral tablet 40 mg = 1 tab, Oral, Daily, taking at bedtime brings best results, # 90 tab, 3 Refill(s), Pharmacy:[facility] #[id number], 180, cm, 09/15/22 11:55:00 EST, Height/Length Dosing, [...] distal clavical excision. 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 Sykes [facility]) 5bilat knees 6left hip 7left knee [address] 9Salpingectomy Unilateral Ectopic 10Surgical debridement of left trochanteric bursa with IT band tenotomy Results Laboratory List Name Date Automated Diff 04/09/24 C-Reactive Protein (CRP) 04/09/24 CBC w/ Diff 04/09/24 Comprehensive Metabolic Panel (CMP) 04/09 Most recent to oldest [Reference Range]: 1 WBC [5.0-10.0 x10^3/mcL] 9.2 x10^3/mcL (04/09/24 1:57 PM) RBC [4.1-5.3 x10^6/mcL] 4.9 x10^6/mcL (04/09/24 1:57 PM) Neutro Auto [40.0-75.0 %] 57.2 % (04/09/24 1:57 PM) Lymph Auto [20.0-50.0 %] 30.8 % (04/09/24 1:57 PM) Mchenry Auto [2.0-15.0 %] 8.1 % (04/09/24 1:57 PM) Basophil Auto [0.0-1.0 %] 1.0 % (04/09/24 1:57 PM) BUN [7-18 mg/dL] 8 mg/dL (04/09/24 1:57 PM) Glucose Level [74-106 mg/dL] 94 mg/dL (04/09/24 1:57 PM) Potassium Level [3.5-5.1 mmol/L] 3.6 mmo l/L (04/09/24 1:57 PM) MCV [80.0-96.0 fL] 91.0 fL (04/09/24 1:57 PM) CRP [<=10.0 mg/L] 1.2 mg/L (04/09/24 1:57 PM) AST [15-37 unit/L] 50 unit/L *HI* (04/09/24 1:57 PM) ALT [14-59 unit/L] 42 unit/L (04/09/24 1:57 PM) MCHC [31.0-35.0 g/dL] 33.6 g/dL (04/09/24 1:57 PM) Sodium Level [136-145 mmol/L] 139 mmol/L (04/09/24 1:57 PM) Hct [37.0-47.0 %] 44.6 % (04/09/24 1:57 PM) Calcium Level [8.5-10.1 mg/dL] 9.1 mg/dL (04/09/24 1:57 PM) Albumin Level [3.4-5.0 g/dL] 3.7 g/dL (04/09/24 1:57 PM) Protein Total [6.4-8.2 g/dL] 7.8 g/dL (04/09/24 1:57 PM) MCH [26.0-32.0 pg] 30.6 pg (04/09/24 1:57 PM) Neutro Absolute 5.3 x10^3/mcL *NA* (04/09/24 1:57 PM) Bilirubin Total [0.2-1.0 mg/dL] 1.0 mg/d L (04/09/24 1:57 PM) Hgb [12.0-16.0 g/dL] 15.0 g/dL (04/09/24 1:57 PM) Alk Phos [46-146 unit/L] 139 unit/L (04/09/24 1:57 PM) Platelets [130-450 x10^3/mcL] 199 x10^3/ mcL (04/09/24 1:57 PM) CO2 [21-32 mmol/L] 27 mmol/L (04/09/24 1:57 PM) eGFR Non-AA [>=60] 78 (04/09/24 1:57 PM) eGFR AA [>=60] 78 (04/09/24 1:57 PM) Chloride Level [98-107 mmol/L] 103 mmol/ L (04/09/24 1:57 PM) RDW-CV [11.5-14.5 %] 13.6 % (04/09/24 1:57 PM) Imm Gran Auto [0.0-0.9 %] 0.1 % (04/09/24 1:57 PM) Creatinine Level [0.55-1.02 mg/dL] 0.84 mg/dL (04/09/24 1:57 PM) Eos, Auto [1.0-6.0 %] 2.8 % (04/09/24 1:57 PM) Social History Social History Type Response Tobacco Former tobacco user Tobacco Use:. 1 Sex Female 1quit in 1984 Patient Care team information Care Team Personnel Name: Kerry Ascencio Position: Physician Member Role: Primary Care Physician Address: Address: [facility] [address] [address]- [place] Care Team Related Persons Name: YESICA RANGEL Name: CHUY THORNTON Address: Home [address] [place] [address], [phone] Name: YESICA ANTONIO
--- OUTSIDE RECORDS SUMMARY | 2024-04-10 13:37 | XMS_ITS | Continuity of Care Document ---
Author Organization [facility] Address [address] [place] [address] Care Team Providers Care Hand Cloth Folder Name Role Phone Kerry Ascencio Primary Care Physician Encounter [facility] Date(s): 11/16/22 - 11/16/[address] [address] Encounter Diagnosis Elevated liver enzymes(Discharge Diagnosis) - 11/16/22 Discharge Disposition: Home or Self Care Attending [...] Radiology* BD Bone Density DEXA Axial Skeleton 11/08/22 * BD Bone Density DEXA Axial Skeleton [...] Patient Declined Last Modified by Kerry Ascencio, Special Delivery Mail Carrier 02-11-2019 3Result Comment: Patient Declined Last Modified by Kerry Ascencio, Special Delivery Mail Carrier 02-11-2019, 19:01 Medications acetaminophen-codeine 300 mg-30 mg oral tablet 1 tab, Oral, every 4 hr, PRN as needed for pain, may use 2 for severe pain, # 12 tab, 0 Refill(s), Pharmacy: [facility] #94, 180, cm, 09/15/22 11:55:00 EST, Height/Length [...] BID, # 12 g, 0 Refill(s), Pharmacy: [facility] #94 Start Date: 05/25/22 Stop Date: 06/24/22 [...] daily, # 90 tab, 0 Refill(s), [facility] Start Date: 08/31/22 Status: Ordered citalopram 20 mg oral tablet 20 mg = 1 tab, Oral, Daily Start Date: 02/15/22 Status: Ordered cyclobenzaprine 10 mg oral tablet 10 mg = 1 tab, Oral, TID, PRN as needed for muscle spasm, # 16 tab, 0 Refill(s), [facility] Start Date: 08/24/22 Status: Ordered EPINEPHrine 0.3 mg injectable kit 0.3 mg = 1 EA, IM, Once, Inject 1 syringe as directed Start Date: 02/15/22 Status: Ordered ezetimibe 10 mg oral tablet 10 mg = 1 tab, Oral, Daily Start Date: 02/15/22 Status: Ordered Gentle Laxative 5 mg oral delayed release tablet 5 mg = 1 tab, Oral, Once, as directed Start Date: 02/15/22 Status: Ordered ibuprofen 800 mg oral tablet 1 tab, Oral, every 8 hr, PRN NEEDED FOR ARTHRITIS, # 90 tab, 1 Refill(s), [facility]: [facility], 180, cm, 09/15/22 11:55:00 EST, Height/Length Dosing, 83, kg, 09/15/22 11:55:00 EST, Weight Dosing Start Date: 11/04/22 Status: Ordered levothyroxine 125 mcg (0.125 mg) oral tablet 125 mcg = 1 tab, Oral, Daily, # 90 tab, 3 Refill(s), [facility]: [facility] Start Date: 08/03/22 Status: Ordered meclizine [...] nausea, # 12 tab, 0 Refill(s), Pharmacy: [facility] #94, 180, cm, 09/15/22 11:55:00 EST, Height/Length Dosing, 83, kg, 09/15/22 11:55:00 EST, Weight Dosing Start Date: 09/19/22 Stop Date: 09/26/22 Status: Ordered pantoprazole 40 mg oral delayed release tablet 1 tab, Oral, Daily, # 90 tab, 1 Refill(s), [facility] #94, 180, cm, 09/15/22 11:55:00 EST, Height/Length Dosing, 83, kg, 09/15/22 11:55:00 EST, Weight Dosing Start Date: 10/30/22 Status: Ordered ProAir HFA 90 mcg/inh inhalation aerosol See Instructions, PRN other (see comment), Inhale 2 puffs into the lungs every 4-6 hours as needed,# 8.5 g, 0 Refill(s), Pharmacy: [facility] #94 Start Date: 05/09/22 Status: Ordered PROCHAMBER AERO SPACER PROCHAMBER AERO SPACER, 0 Refill(s) Start Date: 04/19/22 Status: Ordered rosuvastatin 40 mg oral tablet 40 mg = 1 tab, Oral, Daily, # 90 tab, 3 Refill(s), Pharmacy: [facility] #94, 180, cm, 09/15/22 11:55:00 EST, Height/Length Dosing, 83, kg, 09/15/22 11:55:00 EST, Weight Dosing Start Date: 09/27/22 Status: Ordered solifenacin 5 mg oral tablet 5 mg = 1 tab, Oral, Daily, may take 2 daily if needed, # 10 tab, 0 Refill(s), Pharmacy: [facility] #94, 180, cm, 09/15/22 11:55:00 EST, Height/Length Dosing, 83, kg, 09/15/22 11:55:00 EST, Weight Dosing Start Date: 09/16/22 Stop Date: 09/21/22 Status: Ordered Spiriva HandiHaler 18 mcg inhalation capsule 18 mcg = 1 cap, Inhale, every morning, After breo Start Date: 04/19/22 Status: Ordered SUMAtriptan 100 mg oral tablet 100 mg = 1 tab, Oral, Daily, PRN as needed for migraine headache, may repeat dose after 2 hours up to a maximum of 200 mg in 24 hours, # 9 tab, 0 Refill(s), Pharmacy: [facility] #94, 180, cm, 09/15/22 11:55:00 EST, Height/Length Dosing, 83, kg, 3... Start Date: 11/04/22 Status: Ordered tamsulosin 0.4 mg oral capsule [...] Diltiazem, # 270 tab, 1 Refill(s), Pharmacy: [facility] #94, 180,cm, 09/15/22 11:55:00 EST, Height/Length Dosing,... [...] Confirmed 11/11/18 Active Depressive disorder Confirmed Active Herpesviral vesicular dermatitis Confirmed Active Hyperlipidemia Confirmed Active Hypertensive disorder Confirmed Active Hypothyroidism Confirmed Active Idiopathic osteoarthritis Confirmed Active Migraine Confirmed Active Obesity Confirmed Active Obstructive sleep apnea syndrome Confirmed Active Onychomycosis Confirmed Active Post-acute COVID-19 Confirmed 08/26/21 Active Solitary nodule of lung Confirmed 09/07/21 [...] distal clavical excision. 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 Sykes [facility]) 5bilat knees 6left hip 7left knee [address] 9Salpingectomy Unilateral Ectopic 10Surgical debridement of left trochanteric bursa with IT band tenotomy Social History Social History Type Response Tobacco Former tobacco user Tobacco Use:. 1 Sex Female 1quit in 1984 Patient Care team information Care Team Personnel Name: Kerry Ascencio Position: Physician Member Role: Primary Care Physician Address: Address: [facility] [place] [address]- [place] Care Team Related Persons Name: YESICA RANGEL Address: Home Name: CHUY THORNTON Name: YESICA ANTONIO Address: Home
--- OUTSIDE RECORDS SUMMARY | 2024-04-10 13:37 | XMS_ITS | Continuity of Care Document ---
Author Organization [facility] Address [address] [place] [address] Care Team Providers Care Supervisor Paper Coating Name Role Phone Kerry Ascencio Primary Care Physician [facility] Date(s): 02/15/24 - 02/15/[address] [address] Discharge Disposition: Home or Self Care Attending Physician: David Aguilar CH, MD Admitting Physician: David Aguilar CH, MD Referring Physician: David Aguilar CH, MD Allergies, Adverse Reactions, Alerts Substance Reaction Severity [...] BNT-162b2 vax 06/03/21 Recorded tetanus/diphth/pertuss (Tdap) adult/adol 8/8/17 Recorded influenza virus vaccine, inactivated 07/18/00 Ankit rded tetanus-diphth toxoids (Td) adult/adol 09/17/87 Re corded Not Given Vaccine Date Status Refusal Reason zoster vaccine, inactivated 2 04/06/22 Not Given Patient Refuses zoster vaccine, inactivated 3 02/11/19 Not Given Patient Refuses 1Result Comment: Educational information provided . pt tolerated well 2Result Comment: Patient Declined Last Modified by Kerry Ascencio, Project Manager 02-11-2019 3Result Comment: Patient Declined Last Modified by Kerry Ascencio, Project Manager 02-11-2019, 19:01 Medications acyclovir 200 mg oral capsule See Instructions, PRN other (see comment), take one tablet every 4-6 hours as needed, # 30 tab, 0 Refill(s), Pharmacy: [facility] #[id number], 154.94, cm, 04/16/23 9:16:00 EDT, Height, 83, [...] Daily, # 90 tab, 3 Refill(s), Pharmacy: [facility] #[id number], 154.94, cm, 04/16/23 9:16:00 EDT, Height, 83, kg, 09/15/22 11:55:00 EST, Weight Dosing Start Date: 09/14/23 Status: Ordered citalopram 10 mg oral tablet 10 mg = 1 tab, Oral, Daily, Total dose of 30 mg daily, 1 20 mg tab and 1 10 mg tab, # 90 tab, 3 Refill(s), Pharmacy: [facility] #[id number], 154.94, cm, 04/16/23 9:16:00 EDT, Height, 89.45, kg, 12/05/23 9:09:00 EDT, Weight Dosing Start Date: 12/05/23 Stop Date: 11/29/24 Status: Ordered citalopram 20 mg oral tablet 20 mg = 1 tab, Oral, Daily, Total daily dose 30 mg, 1 20 mg tab + 1 10 mg tab, # 90 tab, 3 Refill(s), Pharmacy: [facility] #[id number], 154.94, cm, 04/16/23 9:16:00 EDT, Height, 89.45, kg, 12/05/23 9:09:00 EDT, Weight Dosing Start Date: 12/05/23 Status: Ordered dilTIAZem 240 mg/24 hours oral capsule, extended release Oral, 240 Unknown, 4 Refill(s), Take 1 capsule by mouth daily., 0 Refill(s) Start Date: 04/13/23 Status: Ordered Emgality Prefilled Pen 120 mg/mL subcutaneous solution 120 mg =, Subcutaneous, every month, [facility] neurology, # 1 EA, 0 Refill(s) Start Date: 12/05/23 Stop Date: 01/04/24 Status: Ordered Emgality Prefilled Syringe 120 mg/mL subcutaneous solution 120 mg =, 0 Refill(s) Start Date: 12/05/23 Status: Ordered EpiPen 2-Dionisio 0.3 mg injectable kit 0.3 mg =, IM, Once, # 1 EA, 0 Refill(s), Pharmacy: [facility] #[id number], 180, cm, 09/15/22 11:55:00 EST, Height/Length Dosing, 83, kg, 09/15/22 11:55:00 EST, Weight Dosing Start Date: 04/25/23 Status: Ordered ezetimibe 10 mg oral tablet 10 mg = 1 tab, Oral, Daily, # 90 tab, 3 Refill(s), Pharmacy: [facility] #[id number], 180, cm, 09/15/22 11:55:00 EST, Height/Length Dosing, 83, kg, 09/15/22 11:55:00 EST, Weight Dosing Start Date: 07/11/23 Status: Ordered Freestyle precision Jose Freestyle test strips Freestyle precision Jose Freestyle test strips, Check BS once daily, Supply, See instructions, # 100EA, 0 Refill(s), Pharmacy: [facility] #[id number] Start Date: 12/13/23 Status: Ordered ibuprofen 800 mg oral tablet 1 tab, Oral, every 8 hr, PRN NEEDED FOR ARTHRITIS, # 90 tab, 0 Refill(s), Pharmacy: [facility] #[id number], 154.94, cm, 04/16/23 9:16:00 EDT, Height, 89.1, kg, 01/03/24 12:54:00 EDT, Weight Dosing Start Date: 01/22/24 Status: Ordered levothyroxine 150 mcg (0.15 mg) oral tablet 150 mcg = 1 tab, Oral, Daily, increased dose. on an empty stomach, # 90 tab, 3 Refill(s), Pharmacy:[facility] #[id number], 180, cm, 09/15/22 11:55:00 EST, Height/Length Dosing, 83, kg, 09/15/2211:55:00 EST, Weight Dosing Start Date: 06/11/23 Status: Ordered meclizine 25 mg oral tablet 25 mg = 1 tab, Oral, TID, PRN as needed for dizziness, # 30 tab, 1 Refill(s), Pharmacy: [email or web address] #94, 180, cm, 09/15/22 11:55:00 EST, Height/Length [...] chew, # 90 tab, 3 Refill(s), Pharmacy: [email or web address] #94, 180, cm, 09/15/22 11:55:00 EST, Height/Length Dosing, 83, kg, 09/15/22 11:55:00 EST, Weight Dosing Start Date: 11/27/22 Stop Date: 11/22/23 Status: Ordered omeprazole 20 mg oral delayed release capsule 20 mg = 1 cap, Oral, Daily, # 90 cap, 3 Refill(s), Pharmacy: [facility] #[id number], 154.94, cm, 04/16/23 9:16:00 EDT, Height, 83, kg, 09/15/22 11:55:00 EST, Weight Dosing Start Date: 09/18/23 Status: Ordered potassium citrate 10 mEq oral tablet, extended release 10 mEq = 1 tab, Oral, BID, with food, # 180 tab, 3 Refill(s), Pharmacy: [facility] #[id number], 154.94, cm, 04/16/23 9:16:00 EDT, Height, 83, [...] HOURS, # 6 tab, 0 Refill(s), Pharmacy: [facility] #[id number], 154.94, cm, 04/16/23 9:16:00 EDT, Height, 89.95, kg, 10/23/23 14:51:00 EST, Weight Dosing Start Date: 12/03/23 Status: Ordered rosuvastatin 40 mg oral tablet 40 mg = 1 tab, Oral, Daily, taking at bedtime brings best results, # 90 tab, 3 Refill(s), Pharmacy:[facility] #[id number], 180, cm, 09/15/22 11:55:00 EST, Height/Length Dosing, [...] distal clavical excision. 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 Sykes [facility]) 5bilat knees 6left hip 7left knee [address] 9Salpingectomy Unilateral Ectopic 10Surgical debridement of left trochanteric bursa with IT band tenotomy Results Laboratory List Name Date Urinalysis Microscopic 02/15/24 Urinalysis with Micro if Indicated and C ulture if Indicated 02/15/24 Most recent to oldest [Reference Range]: 1 UA Color Yellow (02/15/24 6:37 PM) UA WBC [0-3] 10-25 *ABN* (02/15/24 6:37 PM) UA Urobilinogen Positive *ABN* (02/15/24 6:37 PM) UA Bili [Negative] Negative (02/15/24 6:37 PM) UA Ketones Negative (02/15/24 6:37 PM) UA RBC [0-2] 50-100 (02/15/24 6:37 PM) UA Leuk Est Trace *ABN* (02/15/24 6:37 PM) UA Nitrite Negative (02/15/24 6:37 PM) UA Glucose [Negative] Negative (02/15/24 6:37 PM) UA Bacteria Few /HPF *ABN* (02/15/24 6:37 PM) UA Protein Negative (02/15/24 6:37 PM) UA Blood 3+ *ABN* (02/15/24 6:37 PM) UA Mucous Moderate /HPF *ABN* (02/15/24 6:37 PM) UA Spec Grav >=1.030 *NA* (02/15/24 6:37 PM) UA Squam Epithelial [None Seen] Moderate *ABN* (02/15/24 6:37 PM) UA pH 5.5 *NA* (02/15/24 6:37 PM) UA Appear Clear (02/15/24 6:37 PM) UA Culture Ind?. Indicated (02/15/24 6:37 PM) Orders for Microbiology Reports Name Date Urine Culture 02/15/24 Microbiology Reports TEST:Urine Culture STATUS:Order in Progress BODY SITE: SOURCE:Urine COLLECTED DATE/TIME:02/15/24 6:37 PM PRELIMINARY REPORT No growth at 24 hours. Social History Social History Type Response Tobacco Former tobacco user Tobacco Use:. 1 Sex Female 1quit in 1984 Patient Care team information Care Team Personnel Name: Kerry Ascencio Position: Physician Member Role: Primary Care Physician Address: Address: [facility] [address] [address] [place] Care Team Related Persons Name: YESICA RANGEL Name: CHUY THORNTON Address: [address], [phone] Name: YESICA ANTONIO
--- OUTSIDE RECORDS SUMMARY | 2024-04-10 13:37 | XMS_ITS | Continuity of Care Document ---
Author Organization [facility] Address [address] [place] [address] Care Team Providers Care Java Developer Analyst Name Role Phone Kerry Ascencio Primary Care Physician Encounter [facility] [id number] Date(s): 03/01/23 - 03/01/[address] [address] Discharge Disposition: Home or Self Care Attending Physician: Rhiannon Sheppard NP Admitting Physician: Rhiannon Sheppard NP Referring Physician: Rhiannon Sheppard GEAR FINISHER Allergies, Adverse Reactions, Alerts Substance Reaction Severity [...] Bone Density DEXA Axial Skeleton 11/09/22 * MRI Brain w/o Contrast 03/02/23 Immunizations Given and Recorded Vaccine Date Status [...] Patient Declined Last Modified by Kerry Ascencio, Sixth Grade Teacher 02-11-2019 3Result Comment: Patient Declined Last Modified by Kerry Ascencio, Sixth Grade Teacher 02-11-2019, 19:01 Medications acyclovir 200 mg oral [...] DAY, # 90 tab, 3 Refill(s), Pharmacy: [facility]#94, 180, cm, 09/15/22 11:55:00 EST, Height/Length Dosing, 83, kg, 09/15/22 11:55:00 EST, Weight Dosing Start Date: 01/26/23 Status: Ordered citalopram 20 mg oral tablet 20 mg = 1 tab, Oral, Daily, # 90 tab, 3 Refill(s), Pharmacy: [facility] #94, 180, cm, 09/15/22 11:55:00 EST, Height/Length [...] # 90 tab, 3 Refill(s), Pharmacy: [facility] #[facility] Start Date: 08/03/22 Status: Ordered meclizine [...] chew, # 90 tab, 3 Refill(s), Pharmacy: [facility] #94, 180, cm, 09/15/22 11:55:00 EST, Height/Length [...] hours, # 6 tab, 1 Refill(s), Pharmacy: [facility] #94, 180, cm, 09/15/22 11:55:00 EST, Height/Length Dosing, 83, kg, 09/15... Start Date: 11/21/22 Status: Ordered rosuvastatin 40 mg oral tablet 40 mg = 1 tab, Oral, Daily, # 90 tab, 3 Refill(s), Pharmacy: [facility] #94, 180, cm, 09/15/22 11:55:00 EST, Height/Length [...] distal clavical excision. 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 Sykes [facility]) 5bilat knees 6left hip 7left knee [address] 9Salpingectomy Unilateral Ectopic 10Surgical debridement of left trochanteric bursa with IT band tenotomy Results Laboratory List Name Date Automated Diff 03/01/23 C-Reactive Protein High Sensitivity (CRP High Sensitivity (CV Risk)) 03/01/23 CBC w/ Diff 03/01/23 Comprehensive Metabolic Panel (CMP) 03/01 Hemoglobin A1c 03/01/23 Sedimentation Rate (ESR) 03/01/23 Thyroid Stimulating Hormone (TSH) 3 Most recent to oldest [Reference Range]: 1 WBC [5.0-10.0 x10^3/mcL] 9.0 x10^3/mcL (03/01/23 2:03 PM) RBC [4.1-5.3 x10^6/mcL] 4.9 x10^6/mcL (03/01/23 2:03 PM) Neutro Auto [40.0-75.0 %] 59.4 % (03/01/23 2:03 PM) Lymph Auto [20.0-50.0 %] 28.0 % (03/01/23 2:03 PM) [place] Auto [2.0-15.0 %] 8.6 % (03/01/23 2:03 PM) Basophil Auto [0.0-1.0 %] 1.0 % (03/01/23 2:03 PM) BUN [7-18 mg/dL] 10 mg/dL (03/01/23 2:03 PM) Glucose Level [74-106 mg/dL] 110 mg/dL *HI* (03/01/23 2:03 PM) Potassium Level [3.5-5.1 mmol/L] 3.7 mmo l/L (03/01/23 2:03 PM) MCV [80.0-96.0 fL] 91.2 fL (03/01/23 2:03 PM) AST [15-37 unit/L] 59 unit/L *HI* (03/01/23 2:03 PM) ALT [14-59 unit/L] 52 unit/L (03/01/23 2:03 PM) MCHC [31.0-35.0 g/dL] 33.7 g/dL (03/01/23 2:03 PM) Sodium Level [136-145 mmol/L] 139 mmol/L (03/01/23 2:03 PM) Hct [37.0-47.0 %] 44.8 % (03/01/23 2:03 PM) Calcium Level [8.5-10.1 mg/dL] 9.1 mg/dL (03/01/23 2:03 PM) Albumin Level [3.4-5.0 g/dL] 3.5 g/dL (03/01/23 2:03 PM) Protein Total [6.4-8.2 g/dL] 7.7 g/dL (03/01/23 2:03 PM) MCH [26.0-32.0 pg] 30.8 pg (03/01/23 2:03 PM) Neutro Absolute 5.3 x10^3/mcL *NA* (03/01/23 2:03 PM) Bilirubin Total [0.2-1.0 mg/dL] 0.7 mg/d L (03/01/23 2:03 PM) Hgb [12.0-16.0 g/dL] 15.1 g/dL (03/01/23 2:03 PM) Alk Phos [46-146 unit/L] 142 unit/L (03/01/23 2:03 PM) Platelets [130-450 x10^3/mcL] 244 x10^3/ mcL (03/01/23 2:03 PM) CO2 [21-32 mmol/L] 26 mmol/L (03/01/23 2:03 PM) TSH [0.358-3.740 mcIntlUnit/mL] 4.062 mc IntlUnit/mL *HI* (03/01/23 2:03 PM) eGFR Non-AA [>=60] 69 (03/01/23 2:03 PM) eGFR AA [>=60] 69 (03/01/23 2:03 PM) Hemoglobin A1c [4.0-6.0 %] 5.5 % (03/01/23 2:03 PM) Chloride Level [98-107 mmol/L] 105 mmol/ L (03/01/23 2:03 PM) RDW-CV [11.5-14.5 %] 13.2 % (03/01/23 2:03 PM) Imm Gran Auto [0.0-0.9 %] 0.1 % (03/01/23 2:03 PM) CRP High Sens [0.00-3.00 mg/L] 2.77 mg/L (03/01/23 2:03 PM) Creatinine Level [0.55-1.02 mg/dL] 0.94 mg/dL (03/01/23 2:03 PM) Eos, Auto [1.0-6.0 %] 2.9 % (03/01/23 2:03 PM) ESR, [place] [0-30 mm/hr] 21 mm/hr (03/01/23 2:03 PM) Social History Social History Type Response Tobacco Former tobacco user Tobacco Use:. 1 Sex Female 1quit in 1984 Patient Care team information Care Team Personnel Name: Kerry Ascencio Position: Physician Member Role: Primary Care Physician Address: Address: [facility] [place] [address]- Care Team Related Persons Name: YESICA RANGEL Address: Home Name: CHUY THORNTON Name: YESICA ANTONIO Address: Home
--- OUTSIDE RECORDS SUMMARY | 2024-04-10 13:37 | XMS_ITS | Continuity of Care Document ---
Author Organization [facility] Address [address] [place] [address] Care Team Providers Care Fruit Or Nut Picker Name Role Phone Kerry Ascencio Primary Care Physician Encounter [facility] Date(s): 10/23/23 - 10/23/[address] [address] Discharge Disposition: Home or Self Care Attending [...] the mouth Assessment and Plan Future Appointments Diagnostic Tests Pending * Hemoglobin A1c 10/23/23 Future Scheduled Tests Laboratory* Comprehensive Metabolic Panel 11/02/22 * Thyroid Stimulating Hormone 07/09/23 * Hemoglobin A1c 09/21/23 * Urinalysis with Micro if Indicated and Culture if Indicated 11/02/22 Radiology* BD Bone Density DEXA Axial Skeleton 11/09/22 * XR Spine Lumbosacral 2 or 3 [...] Patient Declined Last Modified by Kerry Ascencio, Tax Evaluator 02-11-2019 3Result Comment: Patient Declined Last Modified by Kerry Ascencio, Tax Evaluator 02-11-2019, 19:01 Medications acyclovir 200 mg oral capsule See Instructions, PRN other (see comment), take one tablet every 4-6 hours as needed, # 30 tab, 0 Refill(s), Pharmacy: [facility] #[id number], 154.94, cm, 04/16/23 9:16:00 EDT, Height, 83, [...] Daily, # 90 tab, 3 Refill(s), Pharmacy: [facility] #[id number], 154.94, cm, 04/16/23 9:16:00 EDT, Height, 83, kg, 09/15/22 11:55:00 EST, Weight Dosing Start Date: 09/14/23 Status: Ordered citalopram 20 mg oral tablet 20 mg = 1 tab, Oral, Daily, # 90 tab, 3 Refill(s), Pharmacy: [facility] #94, 180, cm, 09/15/22 11:55:00 EST, Height/Length Dosing, 83, kg, 09/15/22 11:55:00 EST, Weight Dosing Start Date: 12/12/22 Status: Ordered dilTIAZem 240 mg/24 hours oral capsule, extended release Oral, 240 Unknown, 4 Refill(s), Take 1 capsule by mouth daily., 0 Refill(s) Start Date: 04/13/23 Status: Ordered EpiPen 2-Dionisio 0.3 mg injectable kit 0.3 mg =, IM, Once, # 1 EA, 0 Refill(s), Pharmacy: [facility] #[id number], 180, cm, 09/15/22 11:55:00 EST, Height/Length Dosing, 83, kg, 09/15/22 11:55:00 EST, Weight Dosing Start Date: 04/25/23 Status: Ordered ezetimibe 10 mg oral tablet 10 mg = 1 tab, Oral, Daily, # 90 tab, 3 Refill(s), Pharmacy: [facility] #[id number], 180, cm, 09/15/22 11:55:00 EST, Height/Length Dosing, 83, kg, 09/15/22 11:55:00 EST, Weight Dosing Start Date: 07/11/23 Status: Ordered gabapentin 300 mg oral capsule 300 mg = 1 cap, Oral, TID, # 90 cap, 0 Refill(s) Start Date: 04/16/23 Stop Date: 11/22/23 Status: Ordered ibuprofen 800 mg oral tablet 1 tab, Oral, every 8 hr, PRN NEEDED FOR ARTHRITIS, # 90 tab, 0 Refill(s), Pharmacy: [facility] #[id number], 154.94, cm, 04/16/23 9:16:00 EDT, Height, 83, kg, 09/15/22 11:55:00 EST, Weight Dosing Start Date: 09/13/23 Status: Ordered levothyroxine 150 mcg (0.15 mg) oral tablet 150 mcg = 1 tab, Oral, Daily, increased dose. on an empty stomach, # 90 tab, 3 Refill(s), Pharmacy:[facility] #[id number], 180, cm, 09/15/22 11:55:00 EST, Height/Length Dosing, 83, kg, 09/15/2211:55:00 EST, Weight Dosing Start Date: 06/11/23 Status: Ordered meclizine 25 mg oral tablet 25 mg = 1 tab, Oral, TID, PRN as needed for dizziness, # 30 tab, 1 Refill(s), Pharmacy: [facility] #94, 180, cm, 09/15/22 11:55:00 EST, Height/Length Dosing, 83, kg, 09/15/22 11:55:00 EST, Weight Dosing Start Date: 02/13/23 Status: Ordered Myrbetriq 50 mg oral tablet, extended release 50 mg = 1 tab, Oral, Daily, do not crush or chew, # 90 tab, 3 Refill(s), Pharmacy: [facility] #94, 180, cm, 09/15/22 11:55:00 EST, Height/Length Dosing, 83, kg, 09/15/22 11:55:00 EST, Weight Dosing Start Date: 11/27/22 Stop Date: 11/22/23 Status: Ordered Myrbetriq 50 mg oral tablet, extended release 50 mg = 1 tab, Oral, Daily, do not crush or chew, # 90 tab, 3 Refill(s), Pharmacy: [facility] #[id number], 180, cm, 09/15/22 11:55:00 EST, Height/Length Dosing, 83, kg, 09/15/22 11:55:00 EST, Weight Dosing Start Date: 04/10/23 Stop Date: 04/04/24 Status: Ordered omeprazole 20 mg oral delayed release capsule 20 mg = 1 cap, Oral, Daily, # 90 cap, 3 Refill(s), Pharmacy: [facility] #[id number], 154.94, cm, 04/16/23 9:16:00 EDT, Height, 83, kg, 09/15/22 11:55:00 EST, Weight Dosing Start Date: 09/18/23 Status: Ordered potassium citrate 10 mEq oral tablet, extended release 10 mEq = 1 tab, Oral, BID, with food, # 180 tab, 3 Refill(s), Pharmacy: [facility] #[id number], 154.94, cm, 04/16/23 9:16:00 EDT, Height, 83, kg, 09/15/22 11:55:00 EST, Weight Dosing Start Date: 10/19/23 Stop Date: 10/13/24 Status: Ordered PROCHAMBER AERO SPACER PROCHAMBER AERO SPACER, 0 Refill(s) Start Date: 04/19/22 Status: Ordered rizatriptan 10 mg oral tablet 10 mg = 1 tab, Oral, Daily, PRN as needed for migraine headache, may repeat dose every 2 hours up to a maximum of 2 pills in 24 hours, # 6 tab, 0 Refill(s), Pharmacy: [facility] #[id number], 154.94, cm, 04/16/23 9:16:00 EDT, Height, 89.95, kg, 10/23/23 14:51:00 EST, Weight Dosing Start Date: 10/23/23 Status: Ordered rosuvastatin 40 mg oral tablet 40 mg = 1 tab, Oral, Daily, taking at bedtime brings best results, # 90 tab, 3 Refill(s), Pharmacy:[facility] #[id number], 180, cm, 09/15/22 11:55:00 EST, Height/Length Dosing, 83, kg, 09/15/2211:55:00 EST, Weight Dosing Start Date: 06/01/23 Status: Ordered Ventolin HFA 90 mcg/inh inhalation aerosol INHALE 2 PUFFS BY MOUTH EVERY 4 HOURS NEEDED FOR SHORTNESS OF BREATH OR WHEEZING Start Date: 04/13/23 Status: Ordered Problem List Condition Confirmation Course [...] Active Prediabetes Confirmed Active Migraine Confirmed Active Seborrheic keratosis Confirmed 12/15/16 Active Solitary nodule of lung Confirmed 09/07/21 Active Hepatic fibrosis, stage 3 Confirmed Active Hepatic steatosis Confirmed Active Supraventricular tachycardia Confirmed 12/21/22 Active [...] distal clavical excision. 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 Sykes [facility]) 5bilat knees 6left hip 7left knee [address]369 9Salpingectomy Unilateral Ectopic 10Surgical debridement of left trochanteric bursa with IT band tenotomy Results Laboratory List Name Date Automated Diff 10/23/23 CBC w/ Diff 10/23/23 Comprehensive Metabolic Panel (CMP) Thyroid Stimulating Hormone (TSH) 10/23/23 Most recent to oldest [Reference Range]: 1 WBC [5.0-10.0 x10^3/mcL] 10.0 x10^3/mcL (10/23/23 3:41 PM) RBC [4.1-5.3 x10^6/mcL] 5.0 x10^6/mcL (10/23/23 3:41 PM) Neutro Auto [40.0-75.0 %] 59.5 % (10/23/23 3:41 PM) Lymph Auto [20.0-50.0 %] 28.6 % (10/23/23 3:41 PM) [place] Auto [2.0-15.0 %] 8.1 % (10/23/23 3:41 PM) Basophil Auto [0.0-1.0 %] 1.0 % (10/23/23 3:41 PM) BUN [7-18 mg/dL] 8 mg/dL (10/23/23 3:41 PM) Glucose Level [74-106 mg/dL] 98 mg/dL (10/23/23 3:41 PM) Potassium Level [3.5-5.1 mmol/L] 3.5 mmo l/L (10/23/23 3:41 PM) MCV [80.0-96.0 fL] 89.7 fL (10/23/23 3:41 PM) AST [15-37 unit/L] 40 unit/L *HI* (10/23/23 3:41 PM) ALT [14-59 unit/L] 42 unit/L (10/23/23 3:41 PM) MCHC [31.0-35.0 g/dL] 33.8 g/dL (10/23/23 3:41 PM) Sodium Level [136-145 mmol/L] 141 mmol/L (10/23/23 3:41 PM) Hct [37.0-47.0 %] 44.4 % (10/23/23 3:41 PM) Calcium Level [8.5-10.1 mg/dL] 9.1 mg/dL (10/23/23 3:41 PM) Albumin Level [3.4-5.0 g/dL] 3.4 g/dL (10/23/23 3:41 PM) Protein Total [6.4-8.2 g/dL] 7.5 g/dL (10/23/23 3:41 PM) MCH [26.0-32.0 pg] 30.3 pg (10/23/23 3:41 PM) Neutro Absolute 6.0 x10^3/mcL *NA* (10/23/23 3:41 PM) Bilirubin Total [0.2-1.0 mg/dL] 0.6 mg/d L (10/23/23 3:41 PM) Hgb [12.0-16.0 g/dL] 15.0 g/dL (10/23/23 3:41 PM) Alk Phos [46-146 unit/L] 152 unit/L *HI* (10/23/23 3:41 PM) Platelets [130-450 x10^3/mcL] 215 x10^3/ mcL (10/23/23 3:41 PM) CO2 [21-32 mmol/L] 30 mmol/L (10/23/23 3:41 PM) TSH [0.358-3.740 mcIntlUnit/mL] 1.169 mc IntlUnit/mL (10/23/23 3:41 PM) eGFR Non-AA [>=60] 88 (10/23/23 3:41 PM) eGFR AA [>=60] 88 (10/23/23 3:41 PM) Chloride Level [98-107 mmol/L] 104 mmol/ L (10/23/23 3:41 PM) RDW-CV [11.5-14.5 %] 13.2 % (10/23/23 3:41 PM) Imm Gran Auto [0.0-0.9 %] 0.1 % (10/23/23 3:41 PM) Creatinine Level [0.55-1.02 mg/dL] 0.76 mg/dL (10/23/23 3:41 PM) Eos, Auto [1.0-6.0 %] 2.7 % (10/23/23 3:41 PM) Social History Social History Type Response Tobacco Former tobacco user Tobacco Use:. 1 Sex Female 1quit in 1984 Patient Care team information Care Team Personnel Name: Megan Gay Position: Ambulatory - RN/CAR MECHANIC HELPER (Fidel) Member Role: Wind Turbine Mechanic Name: Kerry Ascencio Position: Physician Member Role: Primary Care Physician Address: Address: [facility] [id number] [place] [address] Care Team Related Persons Name: YESICA RANGEL Name: CHUY THORNTON Name: YESICA ANTONIO
--- OUTSIDE RECORDS SUMMARY | 2024-04-10 13:37 | XMS_ITS | Continuity of Care Document ---
Author Organization [facility] Address [address] [place] [address] Care Team Providers Care Trial Judge Name Role Phone Kerry Ascencio Primary Care Physician [phone] Encounter [facility] Date(s): 01/04/24 - 01/04/[address] [address] Encounter Diagnosis Abdominal pain in female(Discharge Diagnosis) - 01/04/24 Discharge Disposition: Home or Self Care Attending Physician: Digna Ge MD Admitting Physician: Digna Ge MD Referring Physician: Digna Ge MD Allergies, Adverse Reactions, Alerts Substance Reaction [...] Patient Declined Last Modified by Kerry Ascencio, Rubber Worker 02-11-2019 3Result Comment: Patient Declined Last Modified by Kerry Ascencio, Rubber Worker 02-11-2019, 19:01 Medications acyclovir 200 mg oral capsule See Instructions, PRN other (see comment), take one tablet every 4-6 hours as needed, # 30 tab, 0 Refill(s), Pharmacy: [facility] #[id number], 154.94, cm, 04/16/23 9:16:00 EDT, Height, 83, [...] Daily, # 90 tab, 3 Refill(s), Pharmacy: [facility] #[id number], 154.94, cm, 04/16/23 9:16:00 EDT, Height, 83, kg, 09/15/22 11:55:00 EST, Weight Dosing Start Date: 09/14/23 Status: Ordered citalopram 10 mg oral tablet 10 mg = 1 tab, Oral, Daily, Total dose of 30 mg daily, 1 20 mg tab and 1 10 mg tab, # 90 tab, 3 Refill(s), Pharmacy: [facility] #[id number], 154.94, cm, 04/16/23 9:16:00 EDT, Height, 89.45, kg, 12/05/23 9:09:00 EDT, Weight Dosing Start Date: 12/05/23 Stop Date: 11/29/24 Status: Ordered citalopram 20 mg oral tablet 20 mg = 1 tab, Oral, Daily, Total daily dose 30 mg, 1 20 mg tab + 1 10 mg tab, # 90 tab, 3 Refill(s), Pharmacy: [facility] #[id number], 154.94, cm, 04/16/23 9:16:00 EDT, Height, 89.45, kg, 12/05/23 9:09:00 EDT, Weight Dosing Start Date: 12/05/23 Status: Ordered dilTIAZem 240 mg/24 hours oral capsule, extended release Oral, 240 Unknown, 4 Refill(s), Take 1 capsule by mouth daily., 0 Refill(s) Start Date: 04/13/23 Status: Ordered Emgality Prefilled Pen 120 mg/mL subcutaneous solution 120 mg =, Subcutaneous, every month, [facility] neurology, # 1 EA, 0 Refill(s) Start Date: 12/05/23 Stop Date: 01/04/24 Status: Ordered Emgality Prefilled Syringe 120 mg/mL subcutaneous solution 120 mg =, 0 Refill(s) Start Date: 12/05/23 Status: Ordered EpiPen 2-Dionisio 0.3 mg injectable kit 0.3 mg =, IM, Once, # 1 EA, 0 Refill(s), Pharmacy: [facility] #[id number], 180, cm, 09/15/22 11:55:00 EST, Height/Length Dosing, 83, kg, 09/15/22 11:55:00 EST, Weight Dosing Start Date: 04/25/23 Status: Ordered ezetimibe 10 mg oral tablet 10 mg = 1 tab, Oral, Daily, # 90 tab, 3 Refill(s), Pharmacy: [facility] #[id number], 180, cm, 09/15/22 11:55:00 EST, Height/Length Dosing, 83, kg, 09/15/22 11:55:00 EST, Weight Dosing Start Date: 07/11/23 Status: Ordered Freestyle precision Jose Freestyle test strips Freestyle precision Jose Freestyle test strips, Check BS once daily, Supply, See instructions, # 100EA, 0 Refill(s), Pharmacy: [facility] #[id number] Start Date: 12/13/23 Status: Ordered ibuprofen 800 mg oral tablet 1 tab, Oral, every 8 hr, PRN NEEDED FOR ARTHRITIS, # 90 tab, 0 Refill(s), Pharmacy: [facility] #[id number], 154.94, cm, 04/16/23 9:16:00 EDT, Height, 89.95, kg, 10/23/23 14:51:00 EST, Weight Dosing Start Date: 12/03/23 Status: Ordered ibuprofen 800 mg oral tablet See Instructions, TAKE 1 TABLET BY MOUTH EVERY 8 HOURS NEEDED FOR ARTHRITIS, # 90 tab, 0 Refill(s), Pharmacy: [facility] #[id number], 154.94, cm, 04/16/23 9:16:00 EDT, Height, 89.45, kg, 12/05/23 9:09:00 EDT, Weight Dosing Start Date: 12/24/23 Status: Ordered levothyroxine 150 mcg (0.15 mg) oral tablet 150 mcg = 1 tab, Oral, Daily, increased dose. on an empty stomach, # 90 tab, 3 Refill(s), Pharmacy:[facility] #[id number], 180, cm, 09/15/22 11:55:00 EST, Height/Length Dosing, 83, kg, 09/15/2211:55:00 EST, Weight Dosing Start Date: 06/11/23 Status: Ordered meclizine 25 mg oral tablet 25 mg = 1 tab, Oral, TID, PRN as needed for dizziness, # 30 tab, 1 Refill(s), Pharmacy: [facility] #94, 180, cm, 09/15/22 11:55:00 EST, Height/Length [...] chew, # 90 tab, 3 Refill(s), Pharmacy: [facility] #94, 180, cm, 09/15/22 11:55:00 EST, Height/Length Dosing, 83, kg, 09/15/22 11:55:00 EST, Weight Dosing Start Date: 11/27/22 Stop Date: 11/22/23 Status: Ordered omeprazole 20 mg oral delayed release capsule 20 mg = 1 cap, Oral, Daily, # 90 cap, 3 Refill(s), [facility] #[id number], 154.94, cm, 04/16/23 9:16:00 EDT, Height, 83, kg, 09/15/22 11:55:00 EST, Weight Dosing Start Date: 09/18/23 Status: Ordered potassium citrate 10 mEq oral tablet, extended release 10 mEq = 1 tab, Oral, BID, with food, # 180 tab, 3 Refill(s), [facility] #[id number], 154.94, cm, 04/16/23 9:16:00 EDT, Height, 83, [...] HOURS, # 6 tab, 0 Refill(s), [facility][id number], 154.94, cm, 04/16/23 9:16:00 EDT, Height, 89.95, kg, 10/23/23 14:51:00 EST, Weight Dosing Start Date: 12/03/23 Status: Ordered rosuvastatin 40 mg oral tablet 40 mg = 1 tab, Oral, Daily, taking at bedtime brings best results, # 90 tab, 3 Refill(s), [facility][id number], 180, cm, 09/15/22 11:55:00 EST, Height/Length Dosing, [...] distal clavical excision. 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 Sykes [facility]) 5bilat knees 6left hip 7left knee 72854 9Salpingectomy Unilateral Ectopic 10Surgical debridement of left trochanteric bursa with IT band tenotomy Social History Social History Type Response Tobacco Former tobacco user Tobacco Use:. 1 Sex Female 1quit in 1984 Patient Care team information Care Team Personnel Name: Kerry Ascencio Position: Physician Member Role: Primary Care Physician Address: Address: [facility] [address] Care Team Related Persons Name: YESICA RANGEL Name: CHUY THORNTON Name: YESICA ANTONIO
--- OUTSIDE RECORDS SUMMARY | 2024-04-10 13:37 | XMS_ITS | Continuity of Care Document ---
Author Organization [facility] Address [address] [place] [address] Care Team Providers Care Dairy Cattle Farm Manager Name Role Phone Kerry Ascencio Primary Care Physician Encounter [facility] Date(s): 05/28/23 - 05/28/[address] [facility] [address] [place] [address] Discharge Disposition: Home Allergies, Adverse Reactions, Alerts [...] Density DEXA Axial Skeleton 11/09/22 * MRI Spine Lumbar w/o Contrast 05/03/23 * XR Spine Lumbosacral 2 or 3 [...] Patient Declined Last Modified by Kerry Ascencio, Credit Rating Checker 02-11-2019 3Result Comment: Patient Declined Last Modified by Kerry Ascencio, Credit Rating Checker 02-11-2019, 19:01 Medications acyclovir 200 mg oral [...] DAY, # 90 tab, 3 Refill(s), Pharmacy: [id number], 180, cm, 09/15/22 11:55:00 EST, Height/Length Dosing, 83, kg, 09/15/22 11:55:00 EST, Weight Dosing Start Date: 01/26/23 Status: Ordered citalopram 20 mg oral tablet 20 mg = 1 tab, Oral, Daily, # 90 tab, 3 Refill(s), Pharmacy: [id number], 180, cm, 09/15/22 11:55:00 EST, Height/Length Dosing, 83, kg, 09/15/22 11:55:00 EST, Weight Dosing Start Date: 12/12/22 Status: Ordered dilTIAZem 240 mg/24 hours oral capsule, extended release Oral, 240 Unknown, 4 Refill(s), Take 1 capsule by mouth daily., 0 Refill(s) Start Date: 04/13/23 Status: Ordered EpiPen 2-Dionisio 0.3 mg injectable kit 0.3 mg =, IM, Once, # 1 EA, 0 Refill(s), [id number], 180, cm, 09/15/22 11:55:00 EST, Height/Length Dosing, 83, kg, 09/15/22 11:55:00 EST, Weight Dosing Start Date: 04/25/23 Status: Ordered ezetimibe 10 mg oral tablet 10 mg = 1 tab, Oral, Daily Start Date: 02/15/22 Status: Ordered Flonase Allergy Relief 50 mcg/inh nasal spray 1 sprays, Nostril-Both, BID, # 15.8 mL, 0 Refill(s), Pharmacy: [id number], 180, cm, 09/15/22 11:55:00 EST, Height/Length Dosing, 83, kg, 09/15/22 11:55:00 EST, Weight Dosing Start Date: 12/15/22 Status: Ordered gabapentin 300 mg oral capsule 300 mg = 1 cap, Oral, every day at bedtime, # 30 cap, 0 Refill(s) Start Date: 04/16/23 Status: Ordered ibuprofen 800 mg oral tablet 1 tab, Oral, every 8 hr, PRN NEEDED FOR ARTHRITIS, # 90 tab, 1 Refill(s), Pharmacy: [id number], 180, cm, 09/15/22 11:55:00 EST, Height/Length Dosing, 83, kg, 09/15/22 11:55:00 EST, Weight Dosing Start Date: 01/17/23 Status: Ordered levothyroxine 125 mcg (0.125 mg) oral tablet 125 mcg = 1 tab, Oral, Daily, # 90 tab, 3 Refill(s), Pharmacy: [id number] Start Date: 08/03/22 Status: Ordered meclizine 25 mg oral tablet 25 mg = 1 tab, Oral, TID, PRN as needed for dizziness, # 30 tab, 1 Refill(s), Pharmacy: [facility], 180, cm, 09/15/22 11:55:00 EST, Height/Length Dosing, 83, kg, 09/15/22 11:55:00 EST, Weight Dosing Start Date: 02/13/23 Status: Ordered Myrbetriq 50 mg oral tablet, extended release 50 mg = 1 tab, Oral, Daily, do not crush or chew, # 90 tab, 3 Refill(s), [facility]acy: [facility], 180, cm, 09/15/22 11:55:00 EST, Height/Length Dosing, 83, kg, 09/15/22 11:55:00 EST, Weight Dosing Start Date: 11/27/22 Stop Date: 11/22/23 Status: Ordered Myrbetriq 50 mg oral tablet, extended release 50 mg = 1 tab, Oral, Daily, do not crush or chew, # 90 tab, 3 Refill(s), Pharmacy: [facility] #[id number], 180, cm, 09/15/22 11:55:00 EST, Height/Length Dosing, 83, kg, 09/15/22 11:55:00 EST, Weight Dosing Start Date: 04/10/23 Stop Date: 04/04/24 Status: Ordered pantoprazole 40 mg oral delayed release tablet TAKE ONE TABLET BY MOUTH EVERY DAY Start Date: 04/13/23 Status: Ordered PROCHAMBER AERO SPACER PROCHAMBER AERO SPACER, 0 Refill(s) Start Date: 04/19/22 Status: Ordered rizatriptan 5 mg oral tablet 5 mg = 1 tab, Oral, Daily, PRN as needed for migraine headache, may repeat dose every 2 hours up toa maximum of 2 doses in 24 hours, # 6 tab, 1 Refill(s), Pharmacy: [facility], 180, cm, 09/15/22 11:55:00 EST, Height/Length Dosing, 83, kg, 09/15/22 11:55:00 EST, Weight Dosing Start Date: 11/21/22 Status: Ordered rosuvastatin 40 mg oral tablet 40 mg = 1 tab, Oral, Daily, # 90 tab, 3 Refill(s), Pharmacy: [facility], 180, cm, 09/15/22 11:55:00 EST, Height/Length Dosing, 83, kg, 09/15/22 11:55:00 EST, Weight Dosing Start Date: 09/27/22 Status: Ordered Ventolin HFA 90 mcg/inh inhalation [...] 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 Sykes [facility]) 5bilat knees 6left hip 7left knee 12927 9Salpingectomy Unilateral Ectopic 10Surgical debridement of left trochanteric bursa with IT band tenotomy Social History Social History Type Response Tobacco Former tobacco user Tobacco Use:. 1 Sex Female 1quit in 1984 Patient Care team information Care Team Personnel Name: Kerry Ascencio Position: Physician Member Role: Primary Care Physician Address: Address: [facility] [address] Care Team Related Persons Name: YESICA RANGEL Address: Home Name: CHUY THORNTON Name: YESICA ANTONIO Address: Home
--- OUTSIDE RECORDS SUMMARY | 2024-04-10 13:38 | XMS_ITS | Encounter Summary ---
Author Organization [facility] Address [address] [place] [address] Care Team Providers Care Tunneling Machine Operator Name Role Phone Unavailable Primary Care Provider Unavailabl e Encounter Details Date Type Department Care Team (Late st Contact Info) Description 10/28/2007 Results Only [facility] [address] [place] [address] Kevin Jiménez MD [address] [place] [address] [address] [phone] Social History Tobacco Use Types Packs/Day Years Used Date Smoking Tobacco: Never Assessed Sex and Gender Information Value Date Recorded Sex Assigned at Not on file Gender Identity Not on file Sexual Orientation Not on file documented as of this encounter Plan of Treatment Not on file documented as of this encounter Procedures Procedure Name Priority Date/Time Associated Diagnosis Comments CYTOPATHOLOGY Routine 10/28/2007 0:00 EST documented in this encounter Results * CYTOPATHOLOGY (10/28/2007 0:00 EST) Pathology Report: CYTOPATHOLOGY REPORT Reports generated via electronic interface contain original data; however they are lacking the format of the original report. Caution should be taken when reading/interpreti ng unformatted reports. Name: ? AGATHA YI ? Accession #: ? [id number] : ? 1960 (Age: 47) ??F ?Collect Date: ? 10/28/2007 Location: ? [facility] ? Receive Date: ? 10/29/2007 Provider: ?KEVIN JIMÉNEZ MD Copy to: ? Specimen/Source: ?ThinPrep Pap Test, Cervix/Endocervix, processed on Adaptive PaymentsPrep Imaging System, with manual evaluation Last Menstrual Period: ? Menstrual/Pregnanc y Status: ? Amenorrhea Hormonal/Contracep tive Status: ? Intrauterine device: mirena Other: ? Additional clinical information: fibroid uterus ? SPECIMEN ADEQUACY ? Satisfactory for Evaluation - transformation zone component present GENERAL CATEGORIZATION ? Negative for Intraepithelial Lesion or Malignancy INTERPRETATION ? Reactive cellular changes associated with inflammation present (includes repair). ? Document reviewed and electronically signed by: ? Edgar Landis MD ? Report Date: ??11/04/2007 12:56 End of Report [facility] M[facility]IN[facility] 10/28/2007 10/29/2007 Kevin Jiménez MD PATHOLOGY ORDERABLES [facility] [address] [place] [address] documented in this encounter Visit Diagnoses Not on filedocumented in this encounter
--- OUTSIDE RECORDS SUMMARY | 2024-04-10 13:38 | XMS_ITS | Encounter Summary ---
Author Organization [facility] Address [address] [place] [address] Care Team Providers Care High Wire Artist Name Role Phone Kerry Ascencio Primary Care Provider + Encounter Details Date Type Department Care Team (Late st Contact Info) Description 01/13/2022 Lab Requisition [facility] Pathology & Laboratory Medicine - [address] [address] Evonne Scales, DO [address] [facility] [address] [place], [place] [id number] Encounter for screening for malignant neoplasm of colon Social History Tobacco Use Types Packs/Day Years Used Date Smoking Tobacco: Never Assessed Interpersonal Safety Answer Date Record ed Physically Hurt Never 04/20/2020 Verbally Threaten Not on file 04/20/2020 Sex and Gender Information Value Date Recorded Sex Assigned at Not on file Gender Identity Not on file Sexual Orientation Not on file documented as of this encounter Plan of Treatment Not on file documented as of this encounter Procedures Procedure Name Priority Date/Time Associated Diagnosis Comments SURGICAL PATHOLOGY Today 01/13/2022 12 :34 EDT Encounter for screening for malignant neoplasm of colon documented in this encounter Results * SURGICAL PATHOLOGY (01/13/2022 12:34 EDT) Note to Patient The following pathology results have been interpreted by your pathologist and may be available to you before your health provider has had the opportunity to review them. Please allow time for your provider to receive these results and explore management options, if applicable. 01/17/2022 12:01 [facility] Final Diagnosis A. COLON, AT 90 CM, BIOPSY: - Colonic mucosa with largely preserved crypt architecture and mild patchy increase in eosinophils in the lamina propria. - Negative for active inflammation. 01/17/2022 12:01 [facility] Attestation By the signature below, the attending physician certifies that they have 1) personally conducted a gross and/or microscopic examination of the described specimen(s), and/or personally interpreted the results of laboratory testing of the described specimen(s), and 2) personally rendered or confirmed the above diagnosis. 01/17/2022 12:01 [facility] at 1201 Clinical History Screening; rectal bleeding 01/17/2022 12:01 [facility] Gross Description A. Received in formalin labelled with proper patient identification (initials G, D) and biopsy @ 90 cm is a pagan-brown tissue, 0.2 x 0.2 x 0.2 cm. Entirely submitted in A1. GENE DIAZ(ASCP) 01/16/2022 7:55 01/17/2022 12:01 [facility] Performing Lab [facility] 01/17/2022 12:01 [facility] Scanned Images 01/17/2022 12:01 [facility] Tissue ENTIRE COLON / Unknown 01/13/2022 12:34 EDT 01/13/2022 17:21 EDT Evonne Scales DO PATHOLOGY ORDERABLES [facility] [address] [place] [address] documented in this encounter Visit Diagnoses Diagnosis Encounter for screening for malignant neoplasm of colon Special screening for malignant neoplasms, colon documented in this encounter Care Teams High Wire Artist Relationship Specialty Start Date End Date Kerry Ascencio PA [address] [place] [address] [place] [phone] PCP - General 12/16/21 documented as of this encounter
--- OUTSIDE RECORDS SUMMARY | 2024-04-10 13:38 | XMS_ITS | Encounter Summary ---
Author Organization [facility] Address [address] [place] [address] Care Team Providers Care Salesperson Furs Name Role Phone Unknown, Provider Primary Care Provider Kerry Ascencio Primary Care Provider + Encounter Details Date Type Department Care Team (Late st Contact Info) Description 04/24/2020 Lab Requisition [facility] Pathology & Laboratory Medicine - [facility] [address] [place] [address] Outr Resulting Lab, Provider Social History Tobacco Use Types Packs/Day Years [...] Procedure Name Priority Date/Time Associated Diagnosis Comments DO NOT ORDER STANDALONE - BROAD COVID TEST Today 04/24/2020 8:05 EDT COVID-19 TESTING Routine 04/24/2020 8:05 EDT documented in this encounter Results * DO NOT ORDER STANDALONE - BROAD COVID TEST (04/24/2020 8:05 EDT) COVID-19 rt-PCR Result NEGATIVE Negative 04/25/2020 14:09 EDT [facility] Comment: 2019-novel Coronavirus (2019-nCoV) not detected by the qRT-PCR assay. Consider testing for other respiratory viruses or re-collecting for 2019-nCoV testing. Note: Optimum timing for peak viral levels during infections caused by 2019-nCoV have not been determined. Collection of multiple specimens from the same patient may be necessary to detect the virus. Limitations Positive results are indicative of active infection with SARS-CoV-2 but do not rule out bacterial infection or co-infection with other viruses. The agent detected may not be the definite cause of disease. In addition, detection of viral RNA may not indicate the presence of infectious virus or that SARS-CoV-2 is the causative agent for clinical symptoms. Negative results do not preclude SARS-CoV-2 infection and should not be used as the sole basis for patient management decisions. Negative results must be combined with clinical observations, patient history, and epidemiological information. False negative results may also occur if amplification inhibitors are present in the specimen or if inadequate numbers of organisms are present in the specimen. Optimum specimen types and timing for peak viral levels during infections caused by SARS-CoV-2 have not been fully determined. Collection of multiple specimens (types and time points) from the same patient may be necessary to detect the virus. The test was validated for use with upper respiratory specimens obtained via nasopharyngeal or oropharyngeal swabs in VTM, UTM, M4, M5, M6, saline, and MTM media. The performance of this test has not been established for other specimens. Specimens collected using other FDA recommended Specimen Collection Materials listed in the FDA COVID-19 [employer] communication (December 11, 2019) are processed with the caveat that they were not all validated for use with this test and the result must be interpreted in this context. Furthermore, a false negative results may occur if a specimen is improperly collected, transported or handled. If the virus mutates in the RT-PCR target region, SARS-CoV-2 may not be detected or may be detected less predictably. Inhibitors or other types of interference may produce a false negative result. An interference study evaluating the effect of common cold medications was not performed. This test is not FDA-cleared but its performance characteristics were established by our CLIA-certified, CAP-accredited, high complexity laboratory in accordance with CLIA regulations, College [employer] (CAP) guidelines (Dec 04, 2019), and FDA guidance (Nov 15, 2019). This test is only for use under the Food and Drug Administration's Emergency Use Authorization. Swab ENTIRE NASOPHARYNX / Unknown 04/24/2020 8:05 EDT 04/24/2020 23:12 EDT Provider Outr Resulting Lab MICROBIOLOGY - GENERAL ORDERABLES [facility] [place], [place] * COVID-19 TESTING (04/24/2020 8:05 EDT) Pathologist [facility] COVID-19 rt-PCR Result NEGATIVE Negative 04/25/2020 17:47 EDT [facility] Comment: 2019-novel Coronavirus (2019-nCoV) not detected by the qRT-PCR assay. Consider testing for other respiratory viruses or re-collecting for 2019-nCoV testing. Note: Optimum timing for peak viral levels during infections caused by 2019-nCoV have not been determined. Collection of multiple specimens from the same patient may be necessary to detect the virus. Limitations Positive results are indicative of active infection with SARS-CoV-2 but do not rule out bacterial infection or co-infection with other viruses. The agent detected may not be the definite cause of disease. In addition, detection of viral RNA may not indicate the presence of infectious virus or that SARS-CoV-2 is the causative agent for clinical symptoms. Negative results do not preclude SARS-CoV-2 infection and should not be used as the sole basis for patient management decisions. Negative results must be combined with clinical observations, patient history, and epidemiological information. False negative results may also occur if amplification inhibitors are present in the specimen or if inadequate numbers of organisms are present in the specimen. Optimum specimen types and timing for peak viral levels during infections caused by SARS-CoV-2 have not been fully determined. Collection of multiple specimens (types and time points) from the same patient may be necessary to detect the virus. The test was validated for use with upper respiratory specimens obtained via nasopharyngeal or oropharyngeal swabs in VTM, UTM, M4, M5, M6, saline, and MTM media. The performance of this test has not been established for other specimens. Specimens collected using other FDA recommended Specimen Collection Materials listed in the FDA COVID-19 [employer] communication (December 11, 2019) are processed with the caveat that they were not all validated for use with this test and the result must be interpreted in this context. Furthermore, a false negative results may occur if a specimen is improperly collected, transported or handled. If the virus mutates in the RT-PCR target region, SARS-CoV-2 may not be detected or may be detected less predictably. Inhibitors or other types of interference may produce a false negative result. An interference study evaluating the effect of common cold medications was not performed. This test is not FDA-cleared but its performance characteristics were established by our CLIA-certified, CAP-accredited, high complexity laboratory in accordance with CLIA regulations, College of [employer] (CAP) guidelines (Dec 04, 2019), and FDA guidance (Nov 15, 2019). This test is only for use under the Food and Drug Administration's Emergency Use Authorization. Performing Lab [facility] 04/25/2020 17:47 EDT [facility] Swab 04/24/2020 8:05 EDT 04/24/2020 23:12 EDT Provider Outr Resulting Lab MICROBIOLOGY - GENERAL ORDERABLES [facility] [address] [place], [place] [id number] [place] [address] LABORATORY [place], [place] documented in this encounter Visit Diagnoses Not on filedocumented in this encounter Care Teams Salesperson Furs Relationship Specialty Start Date End Date Unknown, Provider, PCP - General 08/22/18 12/15/21 Kerry Ascencio PA [address] [place] [address] [place] [phone] PCP - General 12/16/21 documented as of this encounter
--- OUTSIDE RECORDS SUMMARY | 2024-04-10 13:38 | XMS_ITS | Continuity of Care Document ---
Author Organization [facility] Address [address] [place] [address] Care Team Providers Care Hide Worker Name Role Phone Kerry Ascencio Primary Care Physician [phone] Encounter [facility]CT[facility]_[place] Date(s): 08/02/22 - 08/02/[address] [phone] Discharge Disposition: Home or Self Care Attending [...] Future Scheduled Tests Laboratory* Thyroid Stimulating Hormone 06/30/22 * Thyroid Stimulating Hormone 08/03/22 Immunizations Given and Recorded Vaccine Date Status [...] Patient Declined Last Modified by Kerry Ascencio, [facility] 02-11-2019 3Result Comment: Patient Declined Last Modified by Kerry Ascencio, Wardrobe Image Consultant 02-11-2019, 19:01 Medications acyclovir 200 mg oral capsule See Instructions, PRN other (see comment), take one tablet every 4-6 hours as needed Start Date: 02/15/22 Status: Ordered Advair HFA 115 mcg-21 mcg/inh inhalation aerosol 2 puffs, Inhale, BID, # 12 g, 0 Refill(s), Pharmacy: [id number] Start Date: 05/25/22 Stop Date: 06/24/22 [...] Daily Start Date: 02/15/22 Status: Ordered citalopram 20 mg oral tablet 20 mg = 1 tab, Oral, Daily Start Date: 02/15/22 Status: Ordered clindamycin 150 mg oral capsule See Instructions, Take four capsules this evening and four capsules again tomorrow morning prior todental work Start Date: 02/15/22 Status: Ordered Dilt-XR 120 mg/24 hours oral capsule, extended release 120 mg = 1 cap, Oral, Daily Start Date: 02/15/22 Status: Ordered EPINEPHrine 0.3 mg injectable kit 0.3 mg = 1 EA, IM, Once, Inject 1 syringe as directed Start Date: 02/15/22 Status: Ordered ezetimibe 10 mg oral tablet 10 mg = 1 tab, Oral, Daily Start Date: 02/15/22 Status: Ordered Gentle Laxative 5 mg oral delayed release tablet 5 mg = 1 tab, Oral, Once, as directed Start Date: 02/15/22 Status: Ordered levothyroxine 125 mcg (0.125 mg) oral tablet 125 mcg = 1 tab, Oral, Daily, # 90 tab, 3 Refill(s), Pharmacy: [id number] Start Date: 08/03/22 Status: Ordered meclizine 25 mg oral tablet 25 mg = 1 tab, Oral, TID, PRN as needed for dizziness, # 30 tab, 1 Refill(s), Pharmacy: [facility] Start Date: 08/02/22 Status: Ordered nitroglycerin 0.4 mg sublingual tablet 0.4 mg = 1 tab, SL Start Date: 02/15/22 Status: Ordered pantoprazole 40 mg oral delayed release tablet 40 mg = 1 tab, Oral, Daily, # 90 tab, 1 Refill(s), Pharmacy: [facility] Start Date: 08/02/22 Status: Ordered ProAir HFA 90 mcg/inh inhalation aerosol See Instructions, PRN other (see comment), Inhale 2 puffs into the lungs every 4-6 hours as needed,# 8.5 g, 0 Refill(s), Pharmacy: [facility] Start Date: 05/09/22 Status: Ordered PROCHAMBER AERO SPACER PROCHAMBER AERO SPACER, 0 Refill(s) Start Date: 04/19/22 Status: Ordered rosuvastatin 40 mg oral tablet 40 mg = 1 tab, Oral, Daily Start Date: 02/15/22 Status: Ordered Spiriva HandiHaler 18 mcg inhalation capsule 18 mcg = 1 cap, Inhale, every morning, After breo Start Date: 04/19/22 Status: Ordered topiramate 50 mg oral tablet 50 mg = 1 tab, Oral, every night at bedtime Start Date: 02/15/22 Status: Ordered VALVD HOLDNG MIS CHAMBER VALVD HOLDNG MIS CHAMBER, 0 Refill(s) Start Date: 04/19/22 Status: Ordered Problem List Condition Confirmation Course [...] Procedure Date Related Diagnosis Body Site Status Shoulder repair 1 02/09/22 Complet ed Colonoscopy [...] clavical excision. 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 Sykes [facility]) 5bilat knees 6left hip 7left knee [id number] 9Salpingectomy Unilateral Ectopic 10Surgical debridement of left trochanteric bursa with IT band tenotomy Results Laboratory List Name Date Basic Metabolic Panel (BMP) 08/02/22 Thyroid Stimulating Hormone (TSH) Most recent to oldest [Reference Range]: 1 BUN [7-18 mg/dL] 12 mg/dL (08/02/22 9:15 AM) Glucose Level [74-106 mg/dL] 99 mg/dL (08/02/22 9:15 AM) Potassium Level [3.5-5.1 mmol/L] 4.0 mmo l/L (08/02/22 9:15 AM) Sodium Level [136-145 mmol/L] 140 mmol/L (08/02/22 9:15 AM) Calcium Level [8.5-10.1 mg/dL] 9.2 mg/dL (08/02/22 9:15 AM) CO2 [21-32 mmol/L] 24 mmol/L (08/02/22 9:15 AM) TSH [0.358-3.740 mcIntlUnit/mL] 3.834 mc IntlUnit/mL *HI* (08/02/22 9:15 AM) eGFR Non-AA [>=60] 68 (08/02/22 9:15 AM) eGFR AA [>=60] 68 (08/02/22 9:15 AM) Chloride Level [98-107 mmol/L] 106 mmol/ L (08/02/22 9:15 AM) Creatinine Level [0.55-1.02 mg/dL] 0.95 mg/dL (08/02/22 9:15 AM) Social History Social History Type Response Tobacco Former tobacco user Tobacco Use:. 1 Sex Female 1quit in 1984 Patient Care team information Personnel Name: Kerry Ascencio Address: Address: [facility] [address]
--- OUTSIDE RECORDS SUMMARY | 2024-04-10 13:38 | XMS_ITS | Encounter Summary ---
Author Organization [facility] Address [address] [place] [address] Care Team Providers Care Inside Sales Account Representative Name Role Phone Kerry Ascencio Primary Care Provider + Encounter Details Date Type Department Care Team (Late st Contact Info) Description 09/30/2023 Lab Requisition [facility] Pathology & Laboratory Medicine - [address] [id number] Outr Resulting Lab, Provider Social History Tobacco [...] Procedure Name Priority Date/Time Associated Diagnosis Comments CALCIUM, URINE 24HR Routine 09/27/2023 5:00 EST MAGNESIUM, URINE 24HR Routine 09/27/2023 5:00 EST documented in this encounter Results * MAGNESIUM, URINE 24HR (09/27/2023 5:00 EST) Magnesium, Urine 2.3 See Note mg/dL 10/01/2023 10:04 EST [facility] Comment: NOTE: Reference range not established Magnesium, Urine 24 hr 10/01/2023 10:04 [facility] Comment: Unable to calculate 24 hour collection is outside of the 22-26 hour acceptability window. Urine Volume 600 mL 10/01/2023 10:04 [facility] Urine Collection Period 21.0 Hours 10/01/2023 10:04 [facility] Urine 24 HOUR URINE SPECIMEN / Unknown 09/27/2023 5:00 EST 09/30/2023 15:51 EST Provider Outr Resulting Lab URINALYSIS O RDERABLES Performing Organization Address [facility] Co de Phone Number [facility] [address] [place] [address] * CALCIUM, URINE 24HR (09/27/2023 5:00 EST) Calcium, Urine 14.4 See Note mg/dL 10/01/2023 9:49 [facility] Comment: NOTE: Reference range not established 24 hour collection is outside of the 22-26 hour acceptability window. Calcium, Urine 24 hr 10/01/2023 9:49 [facility] Comment:Unable to calculate Urine Volume 600 mL 10/01/2023 9:49 [facility] Urine Collection Period 21.0 Hours 10/01/2023 9:49 [facility] Urine 24 HOUR URINE SPECIMEN / Unknown 09/27/2023 5:00 EST 09/30/2023 15:51 EST Provider Outr Resulting Lab URINALYSIS O RDERABLES Performing Organization Address City/[facility] Co de Phone Number [facility] [address] [place] [address] documented in this encounter Visit Diagnoses Not on filedocumented in this encounter Care Teams Inside Sales Account Representative Relationship Specialty Start Date End Date Kerry Ascencio PA [address] [place] [address] [place] [phone] PCP - General 12/16/21 documented as of this encounter
--- OUTSIDE RECORDS SUMMARY | 2024-04-10 13:38 | XMS_ITS | Encounter Summary ---
Author Organization [facility] Address [address] [place] [address] Care Team Providers Care Closer On Name Role Phone Unknown, Provider Primary Care Provider Kerry Ascencio Primary Care Provider + Encounter Details Date Type Department Care Team (Late st Contact Info) Description 01/07/2020 Lab Requisition [facility] Pathology & Laboratory Medicine - [facility] [address] [place] [address] Unknown, Provider, Social History Tobacco Use Types Packs/Day Years Used Date Smoking Tobacco: Never Assessed Sex and Gender Information Value Date Recorded Sex Assigned at Not on file Gender Identity Not on file Sexual Orientation Not on file documented as of this encounter Plan of Treatment Not on file documented as of this encounter Procedures Procedure Name Priority Date/Time Associated Diagnosis Comments ZZCOVID-19 TEST [facility] PCR Today 01/07/2020 14:25 EDT COVID-19 TESTING Routine 01/07/2020 14:2 5 EDT documented in this encounter Results * COVID-19 TEST [facility] PCR (01/07/2020 14:25 EDT) Swab ENTIRE NASOPHARYNX / Unknown 01/07/2020 14:25 EDT 01/07/2020 21:38 EDT Provider Unknown MICROBIOLOGY - GENER AL ORDERABLES [facility] [address] [place] [address] * COVID-19 TESTING (01/07/2020 14:25 EDT) COVID-19 rt-PCR Result Negative Negative 01/08/2020 14:19 EDT [facility] Comment: Negative results do not preclude 2019-nCoV infection and should not be used as the sole basis for treatment or other patient management decisions. Negative results must be combined with clinical observations, patient history, and epidemiological information. This test has not been FDA cleared or approved. This test has been internally validated, but independent review and determination of emergency use authorization ??(EUA) by the FDA is pending. Performed on the blueKiwi Fast Performing Lab [facility] Lab 01/08/2020 14:19 EDT [facility] Swab ENTIRE NASOPHARYNX / Unknown 01/07/2020 14:25 EDT 01/07/2020 21:38 EDT Provider Unknown MICROBIOLOGY - GENER AL ORDERABLES [facility] [address] [place] [address] documented in this encounter Visit Diagnoses Not on filedocumented in this encounter Additional Health Concerns Infection Onset Date Last Indicated Resolved Time R/O COVID-19 03/19/2020 03/19/2020 03/24/2020 22:1 5 EDT documented as of this encounter Care Teams Closer On Relationship Specialty Start Date End Date Unknown, Provider, PCP - General 08/22/18 12/15/21 Kerry Ascencio PA [address] [place] [address] [place] [phone] PCP - General 12/16/21 documented as of this encounter
--- OUTSIDE RECORDS SUMMARY | 2024-04-10 13:38 | XMS_ITS | Encounter Summary ---
Author Organization [facility] Address [address] [place] [address] Care Team Providers Care Lock Assembler Name Role Phone Kerry Ascencio Primary Care Provider + Encounter Details Date Type Department Care Team (Late st Contact Info) Description 10/10/2022 Lab Requisition [facility] Pathology & Laboratory Medicine - [address] [id number] Outr Resulting Lab, Provider Social History Tobacco [...] Procedure Name Priority Date/Time Associated Diagnosis Comments URIC ACID, URINE 24HR Routine 10/10/2022 7:00 EST documented in this encounter Results * URIC ACID, URINE 24HR (10/10/2022 7:00 EST) Uric Acid, Urine 51.1 See Note mg/dL 10/11/2022 9:[address] [facility] Comment: NOTE: Reference range not established Uric Acid, Urine 24 hr 434 250 - 750 mg/24hrs 10/11/2022 9:[address] [facility] Urine Volume 850 mL 10/11/2022 9:[address] [facility] Urine Collection Period 24.0 Hours 10/11/2022 9:[address] [facility] Urine 24 HOUR URINE SPECIMEN / Unknown 10/10/2022 7:00 EST 10/10/2022 21:39 EST Provider Outr Resulting Lab URINALYSIS O RDERABLES Performing Organization Address City/State/[facility] Co de Phone Number [facility] [address] [place] [address] documented in this encounter Visit Diagnoses Not on filedocumented in this encounter Care Teams Lock Assembler Relationship Specialty Start Date End Date Kerry Ascencio PA [address] [place] [phone] PCP - General 12/16/21 documented as of this encounter
--- OUTSIDE RECORDS SUMMARY | 2024-04-10 13:38 | XMS_ITS | Encounter Summary ---
Author Organization [facility] Address [address] [place] [address] Care Team Providers Care Bench Hand Machine Name Role Phone Serina Fabian NP Primary Care Provider [phone]- [phone] Encounter Details Date Type Department Care Team (Late st Contact Info) Description 12/15/2016 Results Only [facility]- [facility] [phone] Tuan Pitt PA [address] [place] [address] [place] [address] Social History Tobacco Use Types Packs/Day Years Used Date Smoking Tobacco: Never Assessed Sex and Gender Information Value Date Recorded Sex Assigned at Not on file Gender Identity Not on file Sexual Orientation Not on file documented as of this encounter Plan of Treatment Not on file documented as of this encounter Procedures Procedure Name Priority Date/Time Associated Diagnosis Comments SURGICAL PATHOLOGY Routine 12/15/2016 13 :19 EDT documented in this encounter Results * SURGICAL PATHOLOGY (12/15/2016 13:19 EDT) Pathology Report: SURGICAL PATHOLOGY REPORT Reports generated via electronic interface contain original data; however they are lacking the format of the original report. Caution should be taken when reading/interpret ing unformatted reports. Name: ? AGATHA YI ? Accession #: ? [id number] ? : ? 1960 (Age: 56) ??F ? Collect Date: ? 12/15/2016 ? Location: ? [facility] ? Receive Date: ? 12/16/2016 ? Provider: TUAN MILLS Copy to: SERINA PRADHAN HEADING MATCHER AND ASSEMBLER ? Final Pathologic Diagnosis: SKIN OF ARM, LEFT, EXCISION: - Seborrheic keratosis. ?? Document reviewed and electronically signed by: SHANAE LUNDBERG MD Report ??Date: 12/19/2016 15:15 By the signature above, the attending physician certifies that he/she has personally conducted a gross and/or microscopic examination of the described specimens and rendered or confirmed the above diagnosis. Specimen(s) Received: Skin lesion back of left arm, short, long superior margin, short, short lateral margin Clinical History: Skin lesion back of left arm Gross Description: ? Received in formalin labelled with proper patient identification (initials G, D) and excision skin lesion back of left arm is a 2.2 x 1.1 cm pagan skin ellipse, excised to a depth of 0.3 cm. There is a short stitch along one side designating the lateral margin and a long stitch at the superior tip. There is a central 0.5 x 0.3 cm slightly raised indurated hypopigmented lesion, located 0.4 cm from the medial margin. The medial half of the specimen is inked blue and the lateral half is inked black. The specimen is serially sectioned from superior to inferior into ten pieces and entirely submitted as follows: BLOCK BARRON 1- ??superior tip 2- ??superior transverse sections x2 3- ??lesion x3 4- ??inferior transverse sections x3 5- ??inferior tip GENE Ash (ASCP) 12/18/2016 4:41 PM End of Report [facility] 12/15/2016 13:1 9 EDT 12/16/2016 13:19 EDT Tuan MILLS PATHOLOGY ORDERABLES [facility] [address] [place] [address] documented in this encounter Visit Diagnoses Not on filedocumented in this encounter Care Teams Bench Hand Machine Relationship Specialty Start Date End Date Serina Fabian, ANTONIO PCP - General 02/04/16 08/21/18 documented as of this encounter
--- OUTSIDE RECORDS SUMMARY | 2024-04-10 13:38 | XMS_ITS | Encounter Summary ---
Author Organization Replaced By [facility] Address [facility] [place] [address] Care Team Providers Care Driver Name Role Phone Kerry Ascencio Primary Care Provider + Encounter Details Date Type Department Care Team (Late st Contact Info) Description 01/24/2024 11:20 AM EDT Office Visit Cardiology at [address] [phone] Cody Martinez MD [facility] [place] [address] ROCHA (dyspnea on exertion) Social History Tobacco Use Types Packs/Day Years Used Date Smoking Tobacco: Former Cigarettes 1 10 4 1983 Smokeless Tobacco: Never Alcohol Use Standard Drinks/Week Comments Never 0 (1 standard drink = 0.6 oz pur e alcohol) Sex and Gender Information Value Date Recorded Sex Assigned at Not on file Gender Identity Not on file Sexual Orientation Not on file documented as of this encounter Last Filed Vital Signs Vital Sign Reading Time Taken Comments Blood Pressure 126/63 01/24/2024 11:26 AM EDT Pulse 77 01/24/2024 11:26 AM EDT Temperature - - Respiratory Rate - - Oxygen Saturation 96% 01/24/2024 11:26 AM EDT Inhaled Oxygen Concentration - - Weight 86.2 kg (190 lb) 01/24/2024 11:26 AM EDT Height 154.9 cm (5' 1) 01/24/2024 11:26 AM EDT Body Mass Index 35.9 01/24/2024 11:26 AM EDT documented in this encounter Patient Instructions * Patient Instructions* Cody Martinez MD - 01/24/2024 11:20 AM EDT Labs and chest x-ray today Increase activity as able (get more active if you can!) Cardiology follow-up in 2-3 month documented in this encounter Progress Notes * Cody Martinez MD - 01/24/2024 11:20 AM EDT Images from the original note were not included. Formerly [facility] [place] [address] CARDIOLOGY OUTPATIENT FOLLOW-UP NOTE Agatha Yi [id number] PCP: GENE Crews 01/24/2024 PRIMARY CARE PROVIDER: GENE Crews PROBLEM LIST: Patient Active Problem List Diagnosis SVT (supraventricular tachycardia) MOISES (obstructive sleep apnea) Urticaria Trochanteric bursitis of right hip Thyroid function test abnormal Pain in left knee Overactive bladder Onychomycosis Asthma Depressive disorder Dizziness and giddiness Fatigue Fear of flying Contact dermatitis Chronic constipation Carpal tunnel syndrome Bursitis of left shoulder GERD (gastroesophageal reflux disease) History of cardiac cath Hyperlipidemia Hypertension Hypothyroidism Idiopathic osteoarthritis Insomnia Lack of energy Migraine headache Obesity Solitary pulmonary nodule Post-acute COVID-19 syndrome Coronary arteriosclerosis Atypical chest pain Abnormal nuclear stress test at [facility] Heart catheterization [facility] November 06, 2017 showing LVEDP of 20 mmHg; coronary angiography showingnormal left main, mild diffuse disease in the LAD, normal circumflex, and mild diffuse disease in the RCA Management with aspirin and atorvastatin Benign paroxysmal positional vertigo Seborrheic keratosis Uterine leiomyoma MEDICATIONS: Current Outpatient Medications: Emgality Pen 120 mg/mL Pen Injector, ADMINISTER 1 ML UNDER THE SKIN ONCE MONTHLY, Disp: , Rfl: dilTIAZem CD (Cardizem CD) 240 mg CD (ER) 24 hr casule, TAKE 1 CAPSULE BY MOUTH ONCE DAILY, Disp: 90 capsule, Rfl: 3 metFORMIN (Fortamet) 500 mg ER 24 hr tablet, Take 1 tablet by mouth daily for 90 days., Disp: 30 tablet, Rfl: 2 mirabegron (Myrbetriq) 50 mg ER 24 hr tablet, Take 50 mg by mouth daily. Overactive bladder., Disp:, Rfl: aspirin 81 mg Tablet, Chewable, Take 81 mg by mouth daily., Disp: , Rfl: levothyroxine (Synthroid) 100 mcg Tablet, 125 mcg daily., Disp: , Rfl: ezetimibe (Zetia) 10 mg Tablet, Take 10 mg by mouth daily., Disp: , Rfl: celecoxib (CeleBREX) 100 mg Capsule, 2 times daily., Disp: , Rfl: MECLIZINE HCL (MECLIZINE ORAL), Take by mouth as needed. Dose unknown, Disp: , Rfl: cetirizine (ZYRTEC) 10 mg Tablet, Take 10 mg by mouth daily., Disp: , Rfl: rosuvastatin (CRESTOR) 40 mg Tablet, Take 40 mg by mouth daily., Disp: , Rfl: acyclovir (ZOVIRAX) 200 mg Capsule, Take 200 mg by mouth as needed., Disp: , Rfl: 0 clindamycin (CLEOCIN) 150 mg Capsule, Take 150 mg by mouth as needed., Disp: , Rfl: 0 EPIPEN 2-JAKE 0.3 mg/0.3 mL Auto-Injector, Inject 1 Device as directed as needed., Disp: , Rfl: 0 ibuprofen (ADVIL;MOTRIN) 800 mg Tablet, Take 800 mg by mouth 3 times daily as needed., Disp: , Rfl:0 albuterol (PROVENTIL HFA;VENTOLIN HFA;PROAIR) 90 mcg/actuation HFA Aerosol Inhaler, Inhale 2 puffs into the lungs every 4 hours as needed for Wheezing. Use with spacer, Disp: , Rfl: citalopram (CELEXA) 20 mg tablet, , Disp: , Rfl: gabapentin (Neurontin) 300 mg capsule, Take 600 mg by mouth nightly., Disp: , Rfl: rizatriptan (Maxalt) 5 mg tablet, Take 5 mg by mouth as needed., Disp: , Rfl: nitroGLYcerin (Nitrostat) 0.4 mg Tablet, Sublingual, Place 1 tablet under the tongue every 5 minutes as needed for Chest pain (may repeat x3,five minutes apart ,call 911 if chest pain remains). (Patient not taking: Reported on 10/11/2023), Disp: 30 tablet, Rfl: 5 SUBJECTIVE: This 63-year-old woman was seen today in a follow-up encounter. She has mild nonobstructive coronary artery disease for which she is taking aspirin and rosuvastatin. In the past she has had palpitations and atypical chest pain. Today she tells me that both the palpitations and the chestpain are extremely rare. Bothersome to her is about 4 to 5 months of new and slowly progressing exertional dyspnea. She says she is short of breath even walking room to room within her house. She walks up stairs at her daughter's house very slowly. She describes only a rare cough. She does not havetypical orthopnea or PND. She has no specific explanation for her shortness of breath though does admit that she has been very inactive as a result of a series of procedures and life circumstances. ROS: No data to display OBJECTIVE: Vital Signs: BP 126/63 Pulse 77 Ht 154.9 cm (5' 1) Wt 86.2 kg (190 lb) SpO2 96% BMI 35.90 kg/m?? Physical Exam: Her exam today is notable for a lack of jugular venous distention, clear lungs, a regular rhythm without murmurs on heart exam, and a lack of significant lower extremity edema. ASSESSMENT: But for her dyspnea, she seems fairly stable. The cause of her dyspnea is not clear. I am concerned about the possibility of deconditioning but in some respects this is a diagnosis of last resort or exclusion. I suggested a chest x-ray and a proBNP level to screen for underlying lung orcardiac pathology. PLAN: 1. Labs today including a proBNP (a recent CBC showed no evidence of anemia) 2. Chest x-ray today 3. Letter to patient with results of above 4. Increase activities as able (assuming some component of her symptoms is related to deconditioning) 5. Cardiology follow-up to reassess in 2 months documented in this encounter Plan of Treatment Upcoming Encounters Date Type Department Care Team (Late st Contact Info) Description 04/28/2024 1:40 PM EDT Office Visit Cardiology at [address] [phone] Cody Martinez MD [facility] [place] [address] 05/27/2024 11:20 AM EDT Office Visit Dermatology at [place] [address] [place] [phone] 06/13/2024 9:00 AM EDT [place] [phone] Kelly Miller APRN [facility] [place] [address] 06/13/2024 10:00 AM EDT Laboratory Appointment Lab [address] [phone] 06/13/2024 11:00 AM EDT Office [place] [phone] Kelly Miller APRN [facility] [place] [address] 10/22/2024 10:30 AM EST Office Visit [place] [phone] Marialuisa Peres MD [facility] [place] [address] documented as of this encounter Procedures Procedure Name Priority Date/Time Associated Diagnosis Comments HC PROBNP Routine 01/24/2024 12:32 PM EDT ROCHA (dyspnea on exertion) documented in this encounter Results * pro-Brain Natriuretic Peptide (01/24/2024 12:32 PM EDT) ProBNP 74 <=124 pg/mL [facility] Blood 01/24/2024 12:3 2 PM EDT 01/24/2024 12:41 PM EDT Narrative Resulting Agency Comment Spec In Lab Cody Martinez MD CHEMISTRY ORDERABLES [facility] [place] [address] * XR Chest PA & Lateral (Generic) (01/24/2024 12:02 PM EDT) WORKSTATION ID [id number] RAD Anatomical Region Laterality Modality Chest N/A Digital Radiogra phy Impressions 01/24/2024 2:10 PM EDT 1. ??No convincing evidence of pneumonia. 2. ??Slight increase in reticulonodular interstitial opacities bilaterally, possibly related to mild interstitial edema due to heart failure, or other slowly progressive interstitial process. Thank you for letting us participate in the care of this patient. ??If you are a health care provider and have any questions regarding this report, please contact the number below. ??For patients who have questions please contact the health patient care secretary that requested your imaging first. ? Narrative 01/24/2024 2:10 PM EDT EXAMINATION: XR CHEST PA AND LATERAL (GENERIC) CLINICAL HISTORY: New and slowly progressing ROCHA - ? pneumonia, heart failure R06.09, Other forms of dyspnea TECHNIQUE: PA and lateral views of the chest COMPARISON: 12/15/2021 FINDINGS: Compared to the prior examination, there has been a slight increase in reticulonodular interstitial opacities. The cardiomediastinal silhouette is stable. Linear opacity in the left midlung is unchanged and likely a small area of scarring. No pleural effusion or pneumothorax. No obvious acute osseous abnormalities. Postsurgical changes of both distal clavicles noted and suture anchor of the right rotator cuff present. Procedure Note Rossi Olsen MD - 01/24/2024 EXAMINATION: XR CHEST PA AND LATERAL (GENERIC) CLINICAL HISTORY: New and slowly progressing ROCHA - ? pneumonia, heartfailure R06.09, Other forms of dyspnea TECHNIQUE: PA and lateral views of the chest COMPARISON: 12/15/2021 FINDINGS: Compared to the prior examination, there has been a slight increase in reticulonodular interstitial opacities. The cardiomediastinal silhouette is stable. Linear opacity in the left midlung is unchanged and likely a small areaof scarring. No pleural effusion or pneumothorax. No obvious acute osseous abnormalities. Postsurgical changes of bothdistal clavicles noted and suture anchor of the right rotator cuff present. IMPRESSION 1. No convincing evidence of pneumonia. 2. Slight increase in reticulonodular interstitial opacitiesbilaterally, possibly related to mild interstitial edema due to heart failure, orother slowly progressive interstitial process. Thank you for letting us participate in the care of this patient. If youare a health care provider and have any questions regarding this report,please contact the number below. For patients who have questions please contactthe health patient care secretary that requested your imaging first. Electronically signed by: Rossi Olsen MD, [facility]([phone]), at 01/24/2024 2:10 PM Cody Martinez MD IMG DX ORDERABLES documented in this encounter Visit Diagnoses Diagnosis ROCHA (dyspnea on exertion) Other dyspnea and respiratory abnormality ROCHA (dyspnea on exertion) Other dyspnea and respiratory abnormality documented in this encounter Care Teams Driver Relationship Specialty Start Date End Date Kerry Ascencio PA [address] [place] [address] [place] [address] PCP - General Internal Medicine 01/29/21 documented as of this encounter
--- OUTSIDE RECORDS SUMMARY | 2024-04-10 13:38 | XMS_ITS | Encounter Summary ---
Author Organization [facility] Address [address] [place] [address] Care Team Providers Care Tick Eradicator Name Role Phone Kerry Ascencio Primary Care Provider + Encounter Details Date Type Department Care Team (Late st Contact Info) Description 02/18/2024 Lab Requisition [facility] Pathology & Laboratory Medicine - [address] [address] Outr Resulting Lab, Provider Social History Tobacco [...] Procedure Name Priority Date/Time Associated Diagnosis Comments LYME AB Routine 02/17/2024 23:15 EDT documented in this encounter Results * LYME AB (02/17/2024 23:15 EDT) Lyme Ab Negative Negative 02/19/2024 10:30 EDT [facility] Blood VENOUS BLOOD / Unknown 02/17/2024 23:15 EDT 02/18/2024 16:59 EDT Provider Outr Resulting Lab IMMUNOLOGY A ND SEROLOGY ORDERABLES [facility] [address] [place], [place] [phone] documented in this encounter Visit Diagnoses Not on filedocumented in this encounter Care Teams Tick Eradicator Relationship Specialty Start Date End Date Kerry Ascencio PA [address] [place] [address] [place] [phone] PCP - General 12/16/21 documented as of this encounter
--- OUTSIDE RECORDS SUMMARY | 2024-04-10 13:38 | XMS_ITS | Encounter Summary ---
Author Organization [facility] Address [facility] [place] [address] Care Team Providers Care Learning And Development Associate Name Role Phone Kerry Ascencio Primary Care Provider + Encounter Details Date Type Department Care Team (Latest Contact Info) Description 01/24/2024 Travel Social History Tobacco Use Types Packs/Day Years Used Date Smoking Tobacco: Former Cigarettes 1 10 1 974 - 1983 Smokeless Tobacco: Never Alcohol Use Standard Drinks/Week Comments Never 0 (1 standard drink = 0.6 oz pur e alcohol) Sex and Gender Information Value Date Recorded Sex Assigned at Not on file Gender Identity Not on file Sexual Orientation Not on file documented as of this encounter Plan of Treatment Upcoming Encounters Date Type Department Care Team (Late st Contact Info) Description 04/28/2024 1:40 PM EDT Office Visit Cardiology at [address] [phone] Cody Martinez MD [facility] [place] [address] 05/27/2024 11:20 AM EDT Office Visit Dermatology at [facility] [address] [place] [address] 06/13/2024 9:00 AM EDT Appointment [place] [phone] Kelly Miller, SENIOR TABLEAU DEVELOPER [facility] [place] [address] 06/13/2024 10:00 AM EDT Laboratory Appointment Lab [address] [place] [phone] 06/13/2024 11:00 AM EDT Office Visit Gastroenterology at [place] [phone] Kelly Miller SENIOR TABLEAU DEVELOPER [facility] [place] [address] 10/22/2024 10:30 AM EST Office Visit Weight [place] [phone] Marialuisa Peres MD [facility] [place] [address] documented as of this encounter Visit Diagnoses Not on filedocumented in this encounter Care Teams Learning And Development Associate Relationship Specialty Start Date End Date Kerry Ascencio PA [address] [place] [address] [place] [address] PCP - General Internal Medicine 01/29/21 documented as of this encounter
--- OUTSIDE RECORDS SUMMARY | 2024-04-10 13:38 | XMS_ITS | Encounter Summary ---
Author Organization [facility] Address [address] [place] [address] Care Team Providers Care Panelboard Tank Pumper Name Role Phone Unavailable Primary Care Provider Unavailabl e Encounter Details Date Type Department Care Team (Late st Contact Info) Description 10/06/2002 Results Only [facility] [address] [place] [address] Kevin Jiménez MD [address] [place] [address] [address] [phone] Social History Tobacco Use Types Packs/Day Years Used Date Smoking Tobacco: Never Assessed Sex and Gender Information Value Date Recorded Sex Assigned at Not on file Gender Identity Not on file Sexual Orientation Not on file documented as of this encounter Plan of Treatment Not on file documented as of this encounter Procedures Procedure Name Priority Date/Time Associated Diagnosis Comments CYTOPATHOLOGY Routine 10/06/2002 0:00 EST documented in this encounter Results * CYTOPATHOLOGY (10/06/2002 0:00 EST) Pathology Report: CYTOPATHOLOGY REPORT Reports generated via electronic interface contain original data; however they are lacking the format of the original report. Caution should be taken when reading/interpreti ng unformatted reports. Name: ? AGATHA YI ? Accession #: ? [id number] : ? 1960 (Age: 42) ??F ?Collect Date: ? 10/06/2002 Location: ? [facility] ? Receive Date: ? 10/08/2002 Provider: ?KEVIN JIMÉNEZ MD Copy to: ? Specimen/Source: ?Conventional Pap Test, Cervix/Endocervix Last Menstrual Period: ? 09/19/02 Other: ? Additional clinical information: Fibroid uterus ? SPECIMEN ADEQUACY ? Satisfactory for Evaluation - transformation zone component present GENERAL CATEGORIZATION ? Negative for Intraepithelial Lesion or Malignancy INTERPRETATION ? Reactive cellular changes associated with inflammation present (includes repair). ? Document reviewed and electronically signed by: ? IMELDA CARREON MD ? Report Date: ??10/13/2002 14:09 End of Report SRINI MARTINES 10/06/2002 10/08/2002 Kevin Jiménez MD PATHOLOGY ORDERABLES Performing Organization Address City/State/[facility] Co de Phone Number SRINI MARTINES [address] [place] [address] documented in this encounter Visit Diagnoses Not on filedocumented in this encounter
--- OUTSIDE RECORDS SUMMARY | 2024-04-10 13:38 | XMS_ITS | Encounter Summary ---
Author Organization [facility] Address [address] [place] [address] Care Team Providers Care Armhole Baster Jumpbasting Name Role Phone Unavailable Primary Care Provider Unavailabl e Encounter Details Date Type Department Care Team (Late st Contact Info) Description 08/06/2000 Results Only [facility] - [facility] [address] [place] [address] Kevin Jiménez MD [address] [place] [address] [phone] Social History Tobacco Use Types Packs/Day Years Used Date Smoking Tobacco: Never Assessed Sex and Gender Information Value Date Recorded Sex Assigned at Not on file Gender Identity Not on file Sexual Orientation Not on file documented as of this encounter Plan of Treatment Not on file documented as of this encounter Procedures Procedure Name Priority Date/Time Associated Diagnosis Comments CYTOPATHOLOGY Routine 08/06/2000 0:00 EST documented in this encounter Results * CYTOPATHOLOGY (08/06/2000 0:00 EST) Pathology Report: CYTOPATHOLOGY REPORT Reports generated via electronic interface contain original data; however they are lacking the format of the original report. Caution should be taken when reading/interpreti ng unformatted reports. Name: ? AGATHA YI ? Accession #: ? [id number] : ? 1960 (Age: 40) ??F ?Collect Date: ? 08/06/2000 Location: ? [facility] ? Receive Date: ? 08/08/2000 Provider: ?KEVIN JIMÉNEZ MD Copy to: ? Specimen/Source: ?Conventional Pap Test, Cervix/Endocervix Last Menstrual Period: ? 07/20/00 Hormonal/Contracep tive Status: ? Yes: T/L. ? SPECIMEN ADEQUACY ? Satisfactory for evaluation. GENERAL CATEGORIZATION ? Within Normal Limits ? Document reviewed and electronically signed by: ? CARL Quinones(ASCP) ? Report Date: ??08/15/2000 14:56 End of Report SRINI MARTINES 08/06/2000 08/08/2000 Kevin Jiménez MD PATHOLOGY ORDERABLES Performing Organization Address City/State/[facility] Co de Phone Number SRINI MARTINES [address] [place] [address] documented in this encounter Visit Diagnoses Not on filedocumented in this encounter
--- OUTSIDE RECORDS SUMMARY | 2024-04-10 13:38 | XMS_ITS | Clinical Summary ---
Author Organization [facility] [place] [address] Care Team Providers Care Clinical Resource Manager Name Role Phone Kerry Ascencio Primary Care Provider + Allergies Active Allergy Reactions Criticality Noted Date Comments Adhesive Medium 01/04/2021 Other reaction(s): RASH AND SWELLING Alcohol Medium 01/04/2021 Other reaction(s): RASH Amoxicillin 08/24/2016 Benzoin Rash Low 01/04/2021 Other reaction(s): Skin Rash Cat Dander Low 01/04/2021 Other reaction(s): WATERY EYES Dog Dander 01/04/2021 Other reaction(s): WATERY EYES Flu Vac [id number](36mo,Up)(Pf) Rash 10/11/2023 Gum Beverly Medium 01/04/2021 Other reaction(s): RASH Hydrocodone Medium 01/04/2021 Other reaction(s): PRURITIS Methyl Salicylate Medium 01/04/2021 Other reaction(s): RASH Milk 01/04/2021 Morphine Sulfate CIS - Nausea/Vomiting Oxycodone-Acetaminophen Itching 10/11/2023 CIS - Nausea/Vomiting Peanut Anaphylaxis High 01/04/2021 Other reaction(s): Anaphylaxsis Other Reaction(s): Abdominal pain Pollen Extracts 01/04/2021 Other reaction(s): watery eyes Raw Fruit Angioedema High 01/04/2021 Storax Medium 01/04/2021 Other reaction(s): RASH Tetanus And Diphtheria Toxoids, Adsorbed, Adult CIS - swelling Tetanus-Diphtheria Toxoids-Td Rash 10/11/2023 Tetrabenazine Medium 01/04/2021 Other reaction(s): RASH,HIVES Tree Nut Anaphylaxis High 01/04/2021 Other reaction(s): Anaphylaxsis Medications Medication Sig Dispensed Refills Start Date End Date Status citalopram (CELEXA) 20 mg tablet 07/19/2009 Active acyclovir (ZOVIRAX) 200 mg Capsule Take 200 mg by mouth as needed. 0 08/13/2016 Active clindamycin (CLEOCIN) 150 mg Capsule Take 150 mg by mouth as needed. 0 07/15/2016 Active EPIPEN 2-JAKE 0.3 mg/0.3 mL Auto-Injector Inject 1 Device as directed as needed. 0 07/22/2016 Active ibuprofen (ADVIL;MOTRIN) 800 mg Tablet Take 800 mg by mouth 3 times daily as needed. 0 06/05/2016 Active albuterol (PROVENTIL HFA;VENTOLIN HFA;PROAIR) 90 mcg/actuation HFA Aerosol Inhaler Inhale 2 puffs into the lungs every 4 hours as needed for Wheezing. Use with spacer Active cetirizine (ZYRTEC) 10 mg Tablet Take 10 mg by mouth daily. Active rosuvastatin (CRESTOR) 40 mg Tablet Take 40 mg by mouth daily. Active MECLIZINE HCL (MECLIZINE ORAL) Take by mouth as needed. Dose unknown Active celecoxib (CeleBREX) 100 mg Capsule 2 times daily. 01/16/2020 Active nitroGLYcerin (Nitrostat) 0.4 mg Tablet, SublingualIndication s:ASCVD (arteriosclerotic cardiovascular disease) Place 1 tablet under the tongue every 5 minutes as needed for Chest pain (may repeat x3,five minutes apart ,call 911 if chest pain remains). 30 tablet 5 02/03/2020 Active Additional Information Patient not taking.Reported on 10/11/2023 levothyroxine (Synthroid) 100 mcg Tablet 125 mcg daily. 02/02/2021 Active ezetimibe (Zetia) 10 mg Tablet Take 10 mg by mouth daily. Active aspirin 81 mg Tablet, Chewable Take 81 mg by mouth daily. Active rizatriptan (Maxalt) 5 mg tablet Take 5 mg by mouth as needed. 11/21/2022 Active mirabegron (Myrbetriq) 50 mg ER 24 hr tablet Take 50 mg by mouth daily. Overactive bladder. Active gabapentin (Neurontin) 300 mg capsule Take 600 mg by mouth nightly. Active dilTIAZem CD (Cardizem CD) 240 mg CD (ER) 24 hr casuleIndications:SV T (supraventricular tachycardia) TAKE 1 CAPSULE BY MOUTH ONCE DAILY 90 capsule 3 12/24/2023 Active Emgality Pen 120 mg/mL Pen Injector ADMINISTER 1 ML UNDER THE SKIN ONCE MONTHLY 01/21/2024 Active Active Problems Problem Noted Date Diagnosed Date SVT (supraventricular tachycardia) 12/21/2022 MOISES (obstructive sleep apnea) 12/21/2022 Urticaria 09/15/2021 Trochanteric bursitis of right hip 09/15/2021 Thyroid function test abnormal 09/15/2021 Pain in left knee 09/15/2021 Overactive bladder 09/15/2021 Onychomycosis 09/15/2021 Asthma 09/15/2021 Depressive disorder 09/15/2021 Dizziness and giddiness 09/15/2021 Fatigue 09/15/2021 Fear of flying 09/15/2021 Contact dermatitis 09/15/2021 Chronic constipation 09/15/2021 Carpal tunnel syndrome 09/15/2021 Bursitis of left shoulder 09/15/2021 GERD (gastroesophageal reflux disease) History of cardiac cath 09/15/2021 Hyperlipidemia 09/15/2021 Hypertension 09/15/2021 Hypothyroidism 09/15/2021 Idiopathic osteoarthritis 09/15/2021 Insomnia 09/15/2021 Lack of energy 09/15/2021 Migraine headache 09/15/2021 Obesity 09/15/2021 Solitary pulmonary nodule 09/07/2021 Post-acute COVID-19 syndrome 08/26/2021 Coronary arteriosclerosis 11/11/2018 Overview (09/15/2021): ?? Atypical chest pain ?? Abnormal nuclear stress test at [facility] ?? Heart catheterization [facility] November 06, 2017 showing LVEDP of 20 mmHg; coronary angiography showing normal left main, mild diffuse disease in the LAD, normal circumflex, and mild diffuse disease in the RCA ?? Management with aspirin and atorvastatin Benign paroxysmal positional vertigo 11/11/2018 Seborrheic keratosis 12/15/2016 Uterine leiomyoma 04/28/2008 Encounters Date Type Department Care Team Description 04/08/2024 Telephone Cardiology at [address] [phone] Nayla Burnett, screen roller (Sharp chest pain over weeks) 01/24/2024 11:51 AM EDT - 01/24/2024 11:59 PM EDT Hospital Encounter XRay at [address] [place] [address] Cody Martinez MD ROCHA (dyspnea on exertion) Discharge Disposition: Home 01/24/2024 11:20 AM EDT Office Visit Cardiology at [address] [phone] Cody Martinez MD ROCHA (dyspnea on exertion) 01/24/2024 Travel 01/18/2024 [place] [address] Zayda Tyler from Last 3 Months Family History Medical History Relation Comments Anxiety Disorder Brother Cancer Brother Cataracts Brother Hypertension Brother Angioedema Father Cataracts Father Cerebrovascular Accident Father Heart Disease Father Hypertension Father Myocardial Infarction Father Cataracts Mother Cerebrovascular Accident Mother Chronic Obstructive Pulmonary Disease Mother Heart Disease Mother Hypertension Mother Eczema Other Urticaria Other Amblyopia Neg Hx Diabetes Neg Hx Glaucoma Neg Hx Retinal Detachment Neg Hx Strabismus Neg Hx Thyroid Disease Neg Hx Relation Status Comments Brother Alive Father Mother Other Social History Tobacco Use Types Packs/Day Years Used Date Smoking Tobacco: Former Cigarettes 1 10 974 1983 Smokeless Tobacco: Never Alcohol Use Standard Drinks/Week Comments Never 0 (1 standard drink = 0.6 oz pur e alcohol) Sex and Gender Information Value Date Recorded Sex Assigned at Not on file Gender Identity Not on file Sexual Orientation Not on file Last Filed Vital Signs Vital Sign Reading Time Taken Comments Blood Pressure 126/63 01/24/2024 11:26 AM EDT Pulse 77 01/24/2024 11:26 AM EDT Temperature 36.7 ??C (98.1 ??F) 02/20/2022 3:15 PM ED T Respiratory Rate 15 02/20/2022 3:07 PM EDT Oxygen Saturation 96% 01/24/2024 11:26 AM EDT Inhaled Oxygen Concentration - - Weight 86.2 kg (190 lb) 01/24/2024 11:26 AM EDT Height 154.9 cm (5' 1) 01/24/2024 11:26 AM EDT Body Mass Index 35.9 01/24/2024 11:26 AM EDT Plan of Treatment Upcoming Encounters Date Type Department Care Team (Late st Contact Info) Description 04/28/2024 1:40 PM EDT Office Visit Cardiology at [address] [phone] Cody Martinez MD [facility] [address] 05/27/2024 11:20 AM EDT Office Visit Dermatology at [address] [phone] 06/13/2024 9:00 AM EDT [place] [phone] Kelly Miller APRN [facility] [place] [address] 06/13/2024 10:00 AM EDT Laboratory Appointment Lab [address] [place] [phone] 06/13/2024 11:00 AM EDT Office [place] [phone] Kelly Miller APRN [facility] [place] [address] 10/22/2024 10:30 AM EST Office Visit [place] [phone] Marialuisa Peres MD [facility] [place] [address] Health Maintenance Due Date Last Done Comments CT Colonography 1960 Colonoscopy 1960 Colorectal Cancer Screening 1960 FIT DNA 1960 FIT 1960 Sigmoidoscopy (10 year) with FIT yearly 1960 Sigmoidoscopy 1960 Pneumococcal Vaccine: At-Ris k 5-64yrs (1 of 2 - PCV) 1966 HIV screen 1978 Tdap adult 1979 Tetanus vaccine 1979 HPV test 1990 PAP Smear 1990 Breast Cancer Share Decision Needed 2000 Breast Cancer screening 2000 Zoster vaccine (1 of 2) 2010 Advance Directive 2015 Covid-19 Vaccine (3 - 2022-2 4 season) 2023 07/05/2021, 06/03/2021 Influenza (Flu) vaccine (1 o f 1 - Influenza standard series) 05/18/2024 Diabetes Screening (HgbA1C o r Glucose) 12/11/2026 12/12/2023, 12/12/2023, 05/30/2023, Additional history exists Hepatitis C Screening Completed 05/30/2023 Medical Devices Implanted Type Area Ribbon Inker Device Identifier Shelf Expiration Date Model / Serial / Lot Breast Clip-01/07/20 Implanted: by Karen Julian MD (Quantity not on file) Breast Clip Right: Breast Bard - [id number] [employer] ULTRACOR BREAST TISSUE MARKER ULTRASOUND ENHANCDE FRANCISCA / [id number] / Description:FRANCISCA Lens Iol [id number] +22.0d 6.0x13.0 Monofocal Post Biconvex ([id number]) (Autoreq) - [id number] Implanted:Qt y: 1 on 02/20/2022 by Ant Rhoades MD at [facility] IMPLANTS Right: Eye [facility] [id number] 12/14/2026 [id number] / [id number] / Procedures Procedure Name Priority Date/Time Associated Diagnosis Comments HC PROBNP Routine 01/24/2024 12:32 PM EDT ROCHA (dyspnea on exertion) XR CHEST PA AND LATERAL Routine 01/24/2024 12:02 PM EDT ROCHA (dyspnea on exertion) COMPREHENSIVE METABOLIC PANEL (NON-FASTING) Routine 12/12/2023 9:29 AM EDT Hepatic steatosis Prediabetes Elevated liver function tests Hepatic fibrosis HC HEPATITIS C ANTIBODY Routine 05/30/2023 10:12 AM EDT Hepatic steatosis Prediabetes Elevated liver function tests Hepatic fibrosis from Last 3 Months or Most Recently Relevant to Health Maintenance Results * pro-Brain Natriuretic Peptide (01/24/2024 12:32 PM EDT) ProBNP 74 <=124 pg/mL [facility] Blood 01/24/2024 12:3 2 PM EDT 01/24/2024 12:41 PM EDT Narrative Resulting Agency Comment Spec In Lab Cody Martinez MD CHEMISTRY ORDERABLES [facility] [place] [address] * XR Chest PA & Lateral (Generic) (01/24/2024 12:02 PM EDT) WORKSTATION ID [id number] DH RAD Anatomical Region Laterality Modality Chest N/A [...] who have questions please contact the health med care manager that requested your imaging first. ? Electronically signed by: Rossi Olsen MD, [facility] ??([phone]), at 01/24/2024 2:10 PM Narrative 01/24/2024 2:10 PM EDT EXAMINATION: XR [...] patients who have questions please contactthe health med care manager that requested your imaging first. Cody Martinez MD IMG DX ORDERABLES * (ABNORMAL) Comprehensive metabolic panel (non-fasting) (12/12/2023 9:29 AM EDT) Glucose Lvl 148 65 - 199 mg/dL [facility] Comment:Diabetes: >=200 mg/d L plus symptoms BUN 13 8 - 18 mg/dL [facility] Creatinine 0.89 0.70 - 1.20 mg/dL [facility] Sodium 139 135 - 145 mmol/L [facility] Potassium 4.1 3.5 - 5.0 mmol/L [facility] Comment: Please note: ??Patients with WBC >100,000 may have falsely elevated Potassium levels. ??For accurate Potassium quantification in these patients send serum separator tube (gold top) for subsequent determinations. ??Contact the Clinical Chemistry Laboratory if there are any questions. Chloride 103 98 - 107 mmol/L [facility] CO2 25 22 - 31 mmol/L [facility] Anion Gap 11 5 - 15 mmol/L [facility] Calcium 9.7 8.5 - 10.5 mg/dL [facility] Total Protein 7.8 6.1 - 8.0 g/dL [facility] Albumin 4.4 3.2 - 5.2 g/dL [facility] AST 47(H) 0 - 30 unit/L [facility] ALT 30 0 - 30 unit/L [facility] Alk Phos 148(H) 35 - 105 unit/L [facility] Total Bilirubin 0.7 0.2 - 1.3 mg/dL [facility] Estimated GFR 73 >=60 mL/min/1. 73 m?? [facility] Comment: This patient's estimated GFR was calculated using the 2020 CKD-EPI equation. The estimated GFR can vary from the measured GFR by up to 30% in the absence of rapidly changing kidney function. Assessment of the estimated GFR is not appropriate when creatinine concentrations are rapidly changing. For clinical situations in which a more precise estimate of GFR is necessary, consider alternative methods of GFR estimation such as a 24-hour urine creatinine clearance. Assignment of CKD stage 1-5 for patients with an eGFR near the transition point between stages may be based on clinical assessment of muscle mass and symptoms in addition to eGFR. Blood 12/12/2023 9:29 AM EDT 12/12/2023 9:37 AM EDT Narrative Resulting Agency Comment Spec In Lab Kelly Miller JIG MAKER CHEMISTRY ORDERABL ES Performing Organization Address [facility]/ZIP Co de Phone Number [facility] [place] [address] * Hepatitis C Antibody (05/30/2023 10:12 AM EDT) Hepatitis C Ab Negative Negative [facility] Blood 05/30/2023 10:1 2 AM EDT 05/30/2023 10:24 AM EDT Narrative Resulting Agency Comment Spec In Lab Kelly Miller JIG MAKER IMMUNOLOGY ORDERAB LES Performing Organization Address City/[facility]/ZIP Co de Phone Number [facility] [place] [address] from Last 3 Months or Most Recently Relevant to Health Maintenance Advance Directives * Full Code (Latest Code Status on File) Date Activated Date Inactivated Comments 11/06/2017 9:20 AM 11/06/2017 3:06 PM Question Answer Comments Does patient have capacity to make decision: Yes Care Teams Clinical Resource Manager Relationship Specialty Start Date End Date Kerry Ascencio PA [address] [place] [address] [place] [address] PCP - General Internal Medicine 01/29/21
--- OUTSIDE RECORDS SUMMARY | 2024-04-10 13:38 | XMS_ITS | Encounter Summary ---
Author Organization [facility] Address [address] [place] [address] Care Team Providers Care Applied Exercise Physiologist Name Role Phone Unknown, Provider Primary Care Provider [phone] Encounter Details Date Type Department Care Team (Late st Contact Info) Description 02/01/2016 Results Only [facility] [phone] Chuy Boyd, DO [address] [place] [address] Social History Tobacco Use Types Packs/Day Years Used Date Smoking Tobacco: Never Assessed Sex and Gender Information Value Date Recorded Sex Assigned at Not on file Gender Identity Not on file Sexual Orientation Not on file documented as of this encounter Plan of Treatment Not on file documented as of this encounter Procedures Procedure Name Priority Date/Time Associated Diagnosis Comments SURGICAL PATHOLOGY Routine 02/01/2016 20 :40 EDT documented in this encounter Results * SURGICAL PATHOLOGY (02/01/2016 20:40 EDT) Pathology Report: SURGICAL PATHOLOGY REPORT Reports generated via electronic interface contain original data; however they are lacking the format of the original report. Caution should be taken when reading/interpret ing unformatted reports. Name: ? AGATHA YI ? Accession #: ? [id number] ? : ? 1960 (Age: 55) ??F ? Collect Date: ? 02/01/2016 ? Location: ? [facility] ? Receive Date: ? 02/01/2016 ? Provider: CHUY BOYD DO Copy to: SERINA PRADHAN ORACLE FINANCIAL APPLICATION DEVELOPER ? Final Pathologic Diagnosis: GALLBLADDER, CHOLECYSTECTOMY: - ??Chronic cholecystitis. Document reviewed and electronically signed by: LELIA CHOWDARY MD Report ??Date: 02/04/2016 14:02 By the signature above, the attending physician certifies that he/she has personally conducted a gross and/or microscopic examination of the described specimens and rendered or confirmed the above diagnosis. Specimen(s) Received: Gallbladder Clinical History: Gallbladder pain Gross Description: ? Received in formalin labelled with proper patient identification (initials G, D) and gallbladder is an intact gallbladder (8.2 x 2.6 x 0.8 cm) with an attached segment of cystic duct (0.5 cm in length x 0.5 cm in diameter). ? The serosa is pink-pagan and glistening. The mucosa is green and smooth to velvety and the wall averages 0.2 cm in thickness. The cystic duct lumen is not grossly patent. The cystic duct margin is inked blue. No choleliths are present. ? Two quality control representative sections and the inked en face cystic duct margin are submitted in 1. Lelia Hwang 02/02/2016 11:19 AM End of Report [facility] 02/01/2016 20:4 0 EDT 02/01/2016 20:40 EDT Chuy Boyd DO PATHOLOGY ORDERABLES [facility] [address] [place] [address] documented in this encounter Visit Diagnoses Not on filedocumented in this encounter Care Teams Applied Exercise Physiologist Relationship Specialty Start Date End Date Unknown, Provider, PCP - General 07/24/15 02/03/16 documented as of this encounter
--- OUTSIDE RECORDS SUMMARY | 2024-04-10 13:38 | XMS_ITS | Encounter Summary ---
Author Organization [facility] Address [address] [place] [address] Care Team Providers Care Pst Supervisor Name Role Phone Kerry Ascencio Primary Care Provider + Encounter Details Date Type Department Care Team (Late st Contact Info) Description 07/23/2023 Lab Requisition [facility] Pathology & Laboratory Medicine - [address] [address] Gladys Sykes MD [address] [place] [address] [address] [place], [place] [id number] Encounter for other general examination Social History Tobacco Use Types Packs/Day Years [...] Date/Time Associated Diagnosis Comments SURGICAL PATHOLOGY Today 07/23/2023 9: 15 EST Encounter for other general examination documented in this encounter Results * SURGICAL PATHOLOGY (07/23/2023 9:15 EST) Note to Patient The following pathology results have been interpreted by your pathologist and may be available to you before your health provider has had the opportunity to review them. Please allow time for your provider to receive these results and explore management options, if applicable. 07/24/2023 15:15 [facility] Final Diagnosis A. SKIN OF NECK, LEFT SIDE, SHAVE BIOPSY: - Hemangioma. 07/24/2023 15:15 [facility] Attestation By the signature below, the attending physician certifies that they have 1) personally conducted a gross and/or microscopic examination of the described specimen(s), and/or personally interpreted the results of laboratory testing of the described specimen(s), and 2) personally rendered or confirmed the above diagnosis. 07/24/2023 15:15 [facility] at 1515 Microscopic Description There is a dome-shaped papule formed by a proliferation of small vascular channels that has a lobular architecture. The vessels are lined by an attenuated endothelium. Some of the vessels are congested. The overlying epidermis has a diminished rete ridge pattern. 07/24/2023 15:15 [facility] Clinical History Left side of neck lesion 07/24/2023 15:15 [facility] Gross Description A. Received in formalin labelled with proper patient identification (initials G, D) and L side of neck is a shave biopsy of pagan skin (0.8 x 0.3 x 0.3 cm). There is a central heard-brown papule that measures 0.4 x 0.2 x 0.2 cm. The specimen is inked, bisected, and entirely submitted in A1. Julita Ambrosio 07/24/2023 8:23 07/24/2023 15:15 [facility] Performing Lab [facility] 07/24/2023 15:15 [facility] Scanned Images 07/24/2023 15:15 [facility] Tissue SPECIMEN FROM SKIN / Unknown 07/23/2023 9:15 EST 07/23/2023 18:29 EST Gladys Sykes MD PATHOLOGY ORDERA ALYSIA [facility] [address] [place] [address] documented in this encounter Visit Diagnoses Diagnosis Encounter for other general examination documented in this encounter Care Teams Pst Supervisor Relationship Specialty Start Date End Date Kerry Ascencio PA [address] [place] [address] [place] [phone] PCP - General 12/16/21 documented as of this encounter
--- OUTSIDE RECORDS SUMMARY | 2024-04-10 13:38 | XMS_ITS | Encounter Summary ---
Author Organization [facility] Address [address] [place] [address] Care Team Providers Care Teamcenter Solution Architect Name Role Phone Kerry Ascencio Primary Care Provider + Encounter Details Date Type Department Care Team (Late st Contact Info) Description 10/10/2022 Lab Requisition [facility] Pathology & Laboratory Medicine - [address] [phone] Outr Resulting Lab, Provider Social History Tobacco [...] Procedure Name Priority Date/Time Associated Diagnosis Comments MAGNESIUM, URINE 24HR Routine 10/10/2022 7:00 EST documented in this encounter Results * MAGNESIUM, URINE 24HR (10/10/2022 7:00 EST) Magnesium, Urine 2.1 See Note mg/dL 10/11/2022 9:23 EST [facility] Comment: NOTE: Reference range not established Magnesium, Urine 24 hr 17.9 12.0 - 192.0 mg/24hrs 10/11/2022 9:23 EST [facility] Urine Volume 850 mL 10/11/2022 9:23 EST [facility] Urine Collection Period 24.0 Hours 10/11/2022 9:23 EST [facility] Urine 24 HOUR URINE SPECIMEN / Unknown 10/10/2022 7:00 EST 10/10/2022 21:39 EST Provider Outr Resulting Lab URINALYSIS O RDERABLES Performing Organization Address City/State/[facility] Co de Phone Number [facility] [address] [place] [address] documented in this encounter Visit Diagnoses Not on filedocumented in this encounter Care Teams Teamcenter Solution Architect Relationship Specialty Start Date End Date Kerry Ascencio PA [address] [place] [address] [place] [address] PCP - General 12/16/21 documented as of this encounter
--- OUTSIDE RECORDS SUMMARY | 2024-04-10 13:38 | XMS_ITS | Encounter Summary ---
Author Organization [facility] Address [address] [place] [address] Care Team Providers Care Truck Crane Operator Helper Name Role Phone Kerry Ascencio Primary Care Provider + Encounter Details Date Type Department Care Team (Late st Contact Info) Description 10/10/2022 Lab Requisition [facility] Pathology & Laboratory Medicine - [address] [phone] Outr Resulting Lab, Provider Social History Tobacco [...] Associated Diagnosis Comments CALCIUM, URINE 24HR Routine 10/10/2022 7:00 EST documented in this encounter Results * CALCIUM, URINE 24HR (10/10/2022 7:00 EST) Calcium, Urine 12.8 See Note mg/dL 10/11/2022 9:[address] [facility] Comment: NOTE: Reference range not established Calcium, Urine 24 hr 109 100 - 300 mg/24hrs 10/11/2022 9:[address] [facility] Comment:Reference range assu mes a normal daily intake of calcium between 600 - 800 mg/day. Urine Volume 850 mL 10/11/2022 9:[address] [facility] Urine Collection Period 24.0 Hours 10/11/2022 9:[address] [facility] Urine 24 HOUR URINE SPECIMEN / Unknown 10/10/2022 7:00 EST 10/10/2022 21:38 EST Provider Outr Resulting Lab URINALYSIS O RDERABLES Performing Organization Address City/State/[facility] Co de Phone Number [facility] [address] [place] [address] documented in this encounter Visit Diagnoses Not on filedocumented in this encounter Care Teams Truck Crane Operator Helper Relationship Specialty Start Date End Date Kerry Ascencio PA [address] [place] [phone] PCP - General 12/16/21 documented as of this encounter
--- OUTSIDE RECORDS SUMMARY | 2024-04-10 13:38 | XMS_ITS | Encounter Summary ---
Author Organization [facility] Address [address] [place] [address] Care Team Providers Care Senior Treasury Analyst Name Role Phone Kerry Ascencio Primary Care Provider + Encounter Details Date Type Department Care Team (Late st Contact Info) Description 04/17/2022 Lab Requisition [facility] Pathology & Laboratory Medicine - [address] [address] Evonne Scales, DO [address] [facility] [address] [place], [place] [address] Encounter for other general examination Social History [...] Date/Time Associated Diagnosis Comments SURGICAL PATHOLOGY Today 04/17/2022 13 :40 EDT Encounter for other general examination documented in this encounter Results * SURGICAL PATHOLOGY (04/17/2022 13:40 EDT) Note to Patient The following pathology results have been interpreted by your pathologist and may be available to you before your health provider has had the opportunity to review them. Please allow time for your provider to receive these results and explore management options, if applicable. 04/19/2022 12:02 [facility] Final Diagnosis A. SKIN OF ARM, RIGHT UPPER, EXCISIONAL BIOPSY: - Seborrheic keratosis. 04/19/2022 12:02 [facility] Attestation By the signature below, the attending physician certifies that they have 1) personally conducted a gross and/or microscopic examination of the described specimen(s), and/or personally interpreted the results of laboratory testing of the described specimen(s), and 2) personally rendered or confirmed the above diagnosis. 04/19/2022 12:02 [facility] at 1202 Microscopic Description The stratum corneum is thickened by laminated orthohyperkeratos is. The epidermis is hyperplastic with papillomatosis and acanthosis. There is formation of horn pseudocysts. The keratinocytes have a basaloid appearance with round regular nuclei and a moderate amount of cytoplasm. 04/19/2022 12:02 [facility] Clinical History Right upper arm skin lesion 04/19/2022 12:02 [facility] Gross Description A. Received in formalin labelled with proper patient identification (initials G, D) and right upper arm skin lesion is an unoriented elliptical excision of pagan skin (1.3 x 0.6 cm, excised to a depth of 0.4 cm). There is a brown-heard variegated raised focus (0.6 x 0.5 x 0.1 cm) located on the skin surface. The margins are inked blue. The specimen is serially sectioned and entirely submitted as A1 tips, reverse en face and A2 and A3 central sections. GENE ARGUETA(ASCP) 04/18/2022 10:33 04/19/2022 12:02 [facility] Performing Lab [facility] 04/19/2022 12:02 [facility] Scanned Images 04/19/2022 12:02 [facility] Tissue TISSUE SPECIMEN FROM SKIN / Unknown 04/17/2022 13:40 EDT 04/17/2022 22:43 EDT Evonne Scales DO PATHOLOGY ORDERABLES [facility] [address] [place] [address] documented in this encounter Visit Diagnoses Diagnosis Encounter for other general examination documented in this encounter Care Teams Senior Treasury Analyst Relationship Specialty Start Date End Date Kerry Ascencio PA [address] [place] [address] [place] [phone] PCP - General 12/16/21 documented as of this encounter
--- OUTSIDE RECORDS SUMMARY | 2024-04-10 13:38 | XMS_ITS | Encounter Summary ---
Author Organization [facility] Address [address] [place] [address] Care Team Providers Care Athletic Instructor Name Role Phone Kerry Ascencio Primary Care Provider + Encounter Details Date Type Department Care Team (Late st Contact Info) Description 10/10/2022 Lab Requisition [facility] Pathology & Laboratory Medicine - [address] [phone] Outr Resulting Lab, Provider Social History Tobacco [...] Procedure Name Priority Date/Time Associated Diagnosis Comments PHOSPHOROUS, URINE 24HR Routine 10/10/2022 7:00 EST documented in this encounter Results * PHOSPHORUS, URINE 24HR (10/10/2022 7:00 EST) Phosphorous, Urine 65.6 See Note mg/dL 10/11/2022 9:21 EST [facility] Comment: NOTE: Reference range not established Phosphorous, Urine 24 hr 0.6 0.4 - 1.3 g/24hrs 10/11/2022 9:21 EST [facility] Urine Volume 850 mL 10/11/2022 9:21 EST [facility] Urine Collection Period 24.0 Hours 10/11/2022 9:21 EST [facility] Urine 24 HOUR URINE SPECIMEN / Unknown 10/10/2022 7:00 EST 10/10/2022 21:40 EST Provider Outr Resulting Lab URINALYSIS O RDERABLES Performing Organization Address City/State/[facility] Co de Phone Number [facility] [address] [place] [address] documented in this encounter Visit Diagnoses Not on filedocumented in this encounter Care Teams Athletic Instructor Relationship Specialty Start Date End Date Kerry Ascencio PA [address] [place] [address] [place] [address] PCP - General 12/16/21 documented as of this encounter
--- OUTSIDE RECORDS SUMMARY | 2024-04-10 13:38 | XMS_ITS | Encounter Summary ---
Author Organization [facility] Address [address] [place] [address] Care Team Providers Care Nutrition Specialist Name Role Phone Kerry Ascencio Primary Care Provider + Encounter Details Date Type Department Care Team (Late st Contact Info) Description 12/11/2023 Lab Requisition [facility] Pathology & Laboratory Medicine - [address] [phone] Outr Resulting Lab, Provider Social History Tobacco [...] Associated Diagnosis Comments CALCIUM, URINE 24HR Routine 12/10/2023 9:30 EDT MAGNESIUM, URINE 24HR Routine 12/10/2023 9:30 EDT documented in this encounter Results * MAGNESIUM, URINE 24HR (12/10/2023 9:30 EDT) Magnesium, Urine 5.1 See Note mg/dL 12/12/2023 9:31 EDT [facility] Comment: NOTE: Reference range not established Magnesium, Urine 24 hr 40.8 12.0 - 192.0 mg/24hrs 12/12/2023 9:31 EDT [facility] Urine Volume 800 mL 12/12/2023 9:31 EDT [facility] Urine Collection Period 24.0 Hours 12/12/2023 9:31 EDT [facility] Urine 24 HOUR URINE SPECIMEN / Unknown 12/10/2023 9:30 EDT 12/11/2023 21:00 EDT Provider Outr Resulting Lab URINALYSIS O RDERABLES Performing Organization Address [facility]/ZIP Co de Phone Number [facility] [address] [place], [place] [phone] * CALCIUM, URINE 24HR (12/10/2023 9:30 EDT) Calcium, Urine 15.5 See Note mg/dL 12/12/2023 9:43 EDT [facility] Comment: NOTE: Reference range not established Calcium, Urine 24 hr 124 100 - 300 mg/24hr 12/12/2023 9:43 EDT [facility] Comment:Reference range assu mes a normal daily intake of calcium between 600 - 800 mg/day. Urine Volume 800 mL 12/12/2023 9:43 EDT [facility] Urine Collection Period 24.0 Hours 12/12/2023 9:43 EDT [facility] Urine 24 HOUR URINE SPECIMEN / Unknown 12/10/2023 9:30 EDT 12/11/2023 21:00 EDT Provider Outr Resulting Lab URINALYSIS O RDERABLES Performing Organization Address [facility]/ZIP Co de Phone Number [facility] [address] [place], [place] [phone] documented in this encounter Visit Diagnoses Not on filedocumented in this encounter Care Teams Nutrition Specialist Relationship Specialty Start Date End Date Kerry Ascencio PA [address] [place] [address] [place] [phone] PCP - General 12/16/21 documented as of this encounter
--- OUTSIDE RECORDS SUMMARY | 2024-04-10 13:38 | XMS_ITS | Encounter Summary ---
Author Organization [facility] Address [facility] [place] [address] Care Team Providers Care Dye House Hand Name Role Phone Kerry Ascencio Primary Care Provider + Encounter Details Date Type Department Care Team (Latest Contact Info) Description 01/24/2024 11:51 AM EDT - 01/24/2024 11:59 PM EDT Hospital Encounter XRay at [address] [place] [address] Cody Martinez MD [facility] [place] [address] ROCHA (dyspnea on exertion) Discharge Disposition: Home Social History Tobacco Use Types Packs/Day Years [...] on file documented as of this encounter Medications at Time of Discharge Medication Sig Dispensed Refills Start Date End Date Emgality Pen 120 mg/mL Pen Injector ADMINISTER 1 ML UNDER THE SKIN ONCE MONTHLY 01/21/2024 dilTIAZem CD (Cardizem CD) 240 mg CD (ER) 24 hr casuleIndications:SVT (supraventricular tachycardia) TAKE 1 CAPSULE BY MOUTH ONCE DAILY 90 capsule 3 12/24/2023 gabapentin (Neurontin) 300 mg capsule Take 600 mg by mouth nightly. rizatriptan (Maxalt) 5 mg tablet Take 5 mg by mouth as needed. 11/21/2022 mirabegron (Myrbetriq) 50 mg ER 24 hr tablet Take 50 mg by mouth daily. Overactive bladder. aspirin 81 mg Tablet, Chewable Take 81 mg by mouth daily. levothyroxine (Synthroid) 100 mcg Tablet 125 mcg daily. 02/02/2021 ezetimibe (Zetia) 10 mg Tablet Take 10 mg by mouth daily. nitroGLYcerin (Nitrostat) 0.4 mg Tablet, SublingualIndications:A SCVD (arteriosclerotic cardiovascular disease) Place 1 tablet under the tongue every 5 minutes as needed for Chest pain (may repeat x3,five minutes apart ,call 911 if chest pain remains). 30 tablet 5 02/03/2020 celecoxib (CeleBREX) 100 mg Capsule 2 times daily. 01/16/2020 MECLIZINE HCL (MECLIZINE ORAL) Take by mouth as needed. Dose unknown cetirizine (ZYRTEC) 10 mg Tablet Take 10 mg by mouth daily. rosuvastatin (CRESTOR) 40 mg Tablet Take 40 mg by mouth daily. acyclovir (ZOVIRAX) 200 mg Capsule Take 200 mg by mouth as needed. 0 08/13/2016 clindamycin (CLEOCIN) 150 mg Capsule Take 150 mg by mouth as needed. 0 07/15/2016 EPIPEN 2-JAKE 0.3 mg/0.3 mL Auto-Injector Inject 1 Device as directed as needed. 0 07/22/2016 ibuprofen (ADVIL;MOTRIN) 800 mg Tablet Take 800 mg by mouth 3 times daily as needed. 0 06/05/2016 albuterol (PROVENTIL HFA;VENTOLIN HFA;PROAIR) 90 mcg/actuation HFA Aerosol Inhaler Inhale 2 puffs into the lungs every 4 hours as needed for Wheezing. Use with spacer citalopram (CELEXA) 20 mg tablet 07/19/2009 metFORMIN (Fortamet) 500 mg ER 24 hr tablet Take 1 tablet by mouth daily for 90 days. 30 tablet 2 12/14/2023 03/13/2024 documented as of this encounter Plan of Treatment Upcoming Encounters Date Type Department Care Team (Late st Contact Info) Description 04/28/2024 1:40 PM EDT Office Visit Cardiology at [address] [phone] Cody Martinez MD [facility] [place] [address] 05/27/2024 11:20 AM EDT Office Visit Dermatology at [facility] [address] [place] [phone] 06/13/2024 9:00 AM EDT Appointment Ultrasound at [place] [phone] Kelly Miller APRN [facility]STRO[facility] [place] [id number] 06/13/2024 10:00 AM EDT Laboratory Appointment Lab [address] [place] [address] 06/13/2024 11:00 AM EDT Office [place] [address] Kelly Miller SEAPORT PLANNING MANAGER [facility] [place] [address] 10/22/2024 10:30 AM EST Office Visit [place] [address] Marialuisa Peres MD [facility] [place] [address] documented as of this encounter Procedures Procedure Name Priority Date/Time Associated Diagnosis Comments XR CHEST PA AND LATERAL Routine 01/24/2024 12:02 PM EDT ROCHA (dyspnea on exertion) documented in this encounter Results * XR Chest PA & Lateral (Generic) (01/24/2024 12:02 PM EDT) WORKSTATION ID [id number] RAD Anatomical Region Laterality Modality Chest N/A [...] who have questions please contact the health client care consultant that requested your imaging first. ? Narrative [...] patients who have questions please contactthe health client care consultant that requested your imaging first. Cody Martinez MD IMG DX ORDERABLES documented in this encounter Visit Diagnoses Diagnosis ROCHA (dyspnea on exertion) Other dyspnea and respiratory abnormality documented in this encounter Care Teams Dye House Hand Relationship Specialty Start Date End Date Kerry Ascencio PA [address] [place] [address] [place] [address] PCP - General Internal Medicine 01/29/21 documented as of this encounter
--- OUTSIDE RECORDS SUMMARY | 2024-04-10 13:38 | XMS_ITS | Continuity of Care Document ---
Author Organization [facility] Address [address] [place] [address] Care Team Providers Care Reconciliation Specialist Name Role Phone Kerry Ascencio Primary Care Physician [phone] Encounter [facility] Date(s): 01/04/24 - 01/04/[address] [address] Discharge Disposition: Home Allergies, Adverse Reactions, Alerts [...] Patient Declined Last Modified by Kerry Ascencio, Community Support Associate 02-11-2019 3Result Comment: Patient Declined Last Modified by Kerry Ascencio, Community Support Associate 02-11-2019, 19:01 Medications acyclovir 200 mg oral capsule See Instructions, PRN other (see comment), take one tablet every 4-6 hours as needed, # 30 tab, 0 Refill(s), [id number], 154.94, cm, 04/16/23 9:16:00 EDT, Height, 83, [...] Daily, # 90 tab, 3 Refill(s), [facility]: [facility] #[id number], 154.94, cm, 04/16/23 9:16:00 EDT, Height, 83, kg, 09/15/22 11:55:00 EST, Weight Dosing Start Date: 09/14/23 Status: Ordered citalopram 10 mg oral tablet 10 mg = 1 tab, Oral, Daily, Total dose of 30 mg daily, 1 20 mg tab and 1 10 mg tab, # 90 tab, 3 Refill(s), [facility]: [facility] #[id number], 154.94, cm, 04/16/23 9:16:00 EDT, Height, 89.45, kg, 12/05/23 9:09:00 EDT, Weight Dosing Start Date: 12/05/23 Stop Date: 11/29/24 Status: Ordered citalopram 20 mg oral tablet 20 mg = 1 tab, Oral, Daily, Total daily dose 30 mg, 1 20 mg tab + 1 10 mg tab, # 90 tab, 3 Refill(s), Pharmacy: [facility] #[id number], 154.94, cm, 04/16/23 9:16:00 EDT, Height, 89.45, kg, 12/05/23 9:09:00 EDT, Weight Dosing Start Date: 12/05/23 Status: Ordered dilTIAZem 240 mg/24 hours oral capsule, extended release Oral, 240 Unknown, 4 Refill(s), Take 1 capsule by mouth daily., 0 Refill(s) Start Date: 04/13/23 Status: Ordered Emgality Prefilled Pen 120 mg/mL subcutaneous solution 120 mg =, Subcutaneous, every month, [facility] neurology, # 1 EA, 0 Refill(s) Start Date: 12/05/23 Stop Date: 01/04/24 Status: Ordered Emgality Prefilled Syringe 120 mg/mL subcutaneous solution 120 mg =, 0 Refill(s) Start Date: 12/05/23 Status: Ordered EpiPen 2-Dionisio 0.3 mg injectable kit 0.3 mg =, IM, Once, # 1 EA, 0 Refill(s), [facility] #[id number], 180, cm, 09/15/22 11:55:00 EST, Height/Length Dosing, 83, kg, 09/15/22 11:55:00 EST, Weight Dosing Start Date: 04/25/23 Status: Ordered ezetimibe 10 mg oral tablet 10 mg = 1 tab, Oral, Daily, # 90 tab, 3 Refill(s), [facility]: [facility] #[id number], 180, cm, 09/15/22 11:55:00 EST, Height/Length Dosing, 83, kg, 09/15/22 11:55:00 EST, Weight Dosing Start Date: 07/11/23 Status: Ordered Freestyle precision Jose Freestyle test strips Freestyle precision Jose Freestyle test strips, Check BS once daily, Supply, See instructions, # 100EA, 0 Refill(s), [facility] #[id number] Start Date: 12/13/23 Status: Ordered ibuprofen 800 mg oral tablet 1 tab, Oral, every 8 hr, PRN NEEDED FOR ARTHRITIS, # 90 tab, 0 Refill(s), [facility]: [facility] #[id number], 154.94, cm, 04/16/23 9:16:00 EDT, Height, 89.95, kg, 10/23/23 14:51:00 EST, Weight Dosing Start Date: 12/03/23 Status: Ordered ibuprofen 800 mg oral tablet See Instructions, TAKE 1 TABLET BY MOUTH EVERY 8 HOURS NEEDED FOR ARTHRITIS, # 90 tab, 0 Refill(s), [facility]: [facility] #[id number], 154.94, cm, 04/16/23 9:16:00 EDT, Height, 89.45, kg, 12/05/23 9:09:00 EDT, Weight Dosing Start Date: 12/24/23 Status: Ordered levothyroxine 150 mcg (0.15 mg) oral tablet 150 mcg = 1 tab, Oral, Daily, increased dose. on an empty stomach, # 90 tab, 3 Refill(s), [facility] #[id number], 180, cm, 09/15/22 11:55:00 EST, Height/Length Dosing, 83, kg, 09/15/2211:55:00 EST, Weight Dosing Start Date: 06/11/23 Status: Ordered meclizine 25 mg oral tablet 25 mg = 1 tab, Oral, TID, PRN as needed for dizziness, # 30 tab, 1 Refill(s), Pharmacy: [facility] #94, 180, cm, 09/15/22 11:55:00 EST, Height/Length [...] chew, # 90 tab, 3 Refill(s), Pharmacy: [facility] #94, 180, cm, 09/15/22 11:55:00 EST, Height/Length Dosing, 83, kg, 09/15/22 11:55:00 EST, Weight Dosing Start Date: 11/27/22 Stop Date: 11/22/23 Status: Ordered omeprazole 20 mg oral delayed release capsule 20 mg = 1 cap, Oral, Daily, # 90 cap, 3 Refill(s), Pharmacy: [facility] #[id number], 154.94, cm, 04/16/23 9:16:00 EDT, Height, 83, kg, 09/15/22 11:55:00 EST, Weight Dosing Start Date: 09/18/23 Status: Ordered potassium citrate 10 mEq oral tablet, extended release 10 mEq = 1 tab, Oral, BID, with food, # 180 tab, 3 Refill(s), [facility] #[id number], 154.94, cm, 04/16/23 9:16:00 EDT, Height, 83, [...] HOURS, # 6 tab, 0 Refill(s), [facility]: [facility] #[id number], 154.94, cm, 04/16/23 9:16:00 EDT, Height, 89.95, kg, 10/23/23 14:51:00 EST, Weight Dosing Start Date: 12/03/23 Status: Ordered rosuvastatin 40 mg oral tablet 40 mg = 1 tab, Oral, Daily, taking at bedtime brings best results, # 90 tab, 3 Refill(s), [facility] #[id number], 180, cm, 09/15/22 11:55:00 EST, Height/Length Dosing, [...] distal clavical excision. 2moderate sigmoid colon [facility]o RT nipple discharge, bx consistent with papilloma no dysplasia or atypia 4hemangiomas of LT chest and breast (Dr. Sykes [facility]) 5bilat knees 6left hip 7left knee [id number] 9Salpingectomy Unilateral Ectopic 10Surgical debridement of left trochanteric bursa with IT band tenotomy Social History Social History Type Response Tobacco Former tobacco user Tobacco Use:. 1 Sex Female 1quit in 1984 Patient Care team information Care Team Personnel Name: Kerry Ascencio Position: Physician Member Role: Primary Care Physician Address: Address: [facility] [address] [address]- Care Team Related Persons Name: YESICA RANGEL Name: CHUY THORNTON Name: YESICA ANTONIO
--- OUTSIDE RECORDS SUMMARY | 2024-04-10 13:38 | XMS_ITS | Encounter Summary ---
Author Organization [facility] Address [address] [place] [address] Care Team Providers Care Market Analyst Name Role Phone Unavailable Primary Care Provider Unavailabl e Encounter Details Date Type Department Care Team (Late st Contact Info) Description 10/23/2005 Results Only [facility] [address] [place] [address] Kevin Jiménez MD [address] [place] [address] [address] [phone] Social History Tobacco Use Types Packs/Day Years Used Date Smoking Tobacco: Never Assessed Sex and Gender Information Value Date Recorded Sex Assigned at Not on file Gender Identity Not on file Sexual Orientation Not on file documented as of this encounter Plan of Treatment Not on file documented as of this encounter Procedures Procedure Name Priority Date/Time Associated Diagnosis Comments CYTOPATHOLOGY Routine 10/23/2005 0:00 EST documented in this encounter Results * CYTOPATHOLOGY (10/23/2005 0:00 EST) Pathology Report: CYTOPATHOLOGY REPORT Reports generated via electronic interface contain original data; however they are lacking the format of the original report. Caution should be taken when reading/interpreti ng unformatted reports. Name: ? AGATHA YI ? Accession #: ? [id number] : ? 1960 (Age: 45) ??F ?Collect Date: ? 10/23/2005 Location: ? [facility] ? Receive Date: ? 10/24/2005 Provider: ?KEVIN JIMÉNEZ MD Copy to: ? Specimen/Source: ?ThinPrep Pap Test, Cervix/Endocervix, processed on [employer] Software ThinPrep Imaging System, with manual evaluation Last Menstrual Period: ? 10/21/05 Hormonal/Contracep tive Status: ? Intrauterine device: In place Other: ? Additional clinical information: [facility] [place] fibroid uterus ? SPECIMEN ADEQUACY ? Satisfactory for Evaluation - transformation zone component present - scant squamous epithelial component secondary to excessive blood GENERAL CATEGORIZATION ? Negative for Intraepithelial Lesion or Malignancy ? Document reviewed and electronically signed by: ? CARL Quinones(ASCP) ? Report Date: ??10/25/2005 10:39 End of Report SRINI MARTINES 10/23/2005 10/24/2005 Kevin Jiménez MD PATHOLOGY ORDERABLES SRINI MARTINES [address] [place] [address] documented in this encounter Visit Diagnoses Not on filedocumented in this encounter
--- OUTSIDE RECORDS SUMMARY | 2024-04-10 13:38 | XMS_ITS | Encounter Summary ---
Author Organization [facility] Address [address] [place] [address] Care Team Providers Care Fish Hatchery Assistant Name Role Phone Unknown, Provider Primary Care Provider Kerry Ascencio Primary Care Provider + Encounter Details Date Type Department Care Team (Late st Contact Info) Description 03/19/2020 Lab Requisition [facility] Pathology & Laboratory Medicine - [address] [address] Outr Resulting Lab, Provider Social History Tobacco [...] Comments ZZCOVID-19 TEST [facility] PCR Today 03/19/2020 9:08 EDT COVID-19 TESTING Routine 03/19/2020 9:08 EDT documented in this encounter Results * COVID-19 TEST [facility] PCR (03/19/2020 9:08 EDT) Swab ENTIRE NASOPHARYNX / Unknown 03/19/2020 9:08 EDT 03/19/2020 16:00 EDT Provider Outr Resulting Lab MICROBIOLOGY - GENERAL ORDERABLES [facility] [address] [place] [address] * COVID-19 TESTING (03/19/2020 9:08 EDT) COVID-19 rt-PCR Result Negative Negative 03/19/2020 22:22 EDT [facility] Comment: This test has not been FDA cleared or approved. This test has been authorized by FDA under an EUA for use by authorized laboratories. This test has been authorized only for detection of nucleic acid from 2019-nCoV, not for any other viruses or pathogens. This test is only authorized for the duration of the declaration that circumstances exist justifying the authorization of emergency use of in vitro diagnostic tests for detection and/or diagnosis of 2019-nCoV under section 564(b)(1) of Act, 21 U.S.C ?? 360bbb-3(b) (1), unless the authorization is terminated or revoked sooner. Negative results do not preclude 2019-nCoV infection and should not be used as the sole basis for treatment or other patient management decisions. Negative results must be combined with clinical observations, patient history, and epidemiological information. Performed on the CN [employer] Fusion instrument Performing Lab [place] [facility] 03/19/2020 22:22 EDT [facility] Swab 03/19/2020 9:08 EDT 03/19/2020 16:00 EDT Provider Outr Resulting Lab MICROBIOLOGY - GENERAL ORDERABLES [facility] [address] [place] [address] documented in this encounter Visit Diagnoses Not on filedocumented in this encounter Additional Health Concerns Infection Onset Date Last Indicated Resolved Time R/O COVID-19 03/19/2020 03/19/2020 03/24/2020 22:1 5 EDT documented as of this encounter Care Teams Fish Hatchery Assistant Relationship Specialty Start Date End Date Unknown, Provider, PCP - General 08/22/18 12/15/21 Kerry Ascencio PA [address] [place] [address] [place] [address] PCP - General 12/16/21 documented as of this encounter
--- OUTSIDE RECORDS SUMMARY | 2024-04-10 13:38 | XMS_ITS | Continuity of Care Document ---
Author Organization [facility] Address [address] [place] [address] Care Team Providers Care Leave Manager Name Role Phone Kerry Ascencio Primary Care Physician [phone] Encounter [facility] Date(s): 09/15/22 - 09/15/[address] [address] [place] Encounter Diagnosis Left ureteral calculus(Discharge Diagnosis) - 09/15/22 Hydronephrosis of left kidney(Discharge Diagnosis) - 09/15/22 Left nephrolithiasis(Discharge Diagnosis) - 09/15/22 Discharge Disposition: Home or Self Care Attending Physician: David Aguilar MD Admitting Physician: David Aguilar MD Referring Physician: David Aguilar MD Allergies, Adverse Reactions, Alerts Substance Reaction Severity Status MILK Diarrhoea Unknown Active TREE AND SHRUB POLLEN Itching Unknown Active PEANUT Abdominal pain Anaphylactic reaction Unknown Active ANIMAL DANDER Sneezing Other Unknown Active PINEAPPLE 1 Other Unknown Active amoxicillin Skin rash Unknown Active morphine Nausea Unknown Active acetaminophen-oxycodone Itching Unknown Acti ve benzoin topical Skin rash Unknown Active Fluarix Rash Unknown Active ADHESIVE TAPE Skin rash Unknown Active tetanus toxoids Skin rash Unknown Active 1raw fruits, burning in the mouth Assessment and Plan Future Appointments Diagnostic Tests Pending * Kidney Stone Analysis BAIRES 09/15/22 Future Scheduled Tests Laboratory* Thyroid Stimulating Hormone 06/30/22 * Thyroid Stimulating Hormone 08/03/22 Functional Status 09/15/22 Family Member Travel History No recent t ravel Recent Travel History No recent travel Other exposure to Infectious Disease Non e Immunizations Given and Recorded Vaccine Date Status [...] Patient Declined Last Modified by Kerry Ascencio, Employee Development Specialist 02-11-2019 3Result Comment: Patient Declined Last Modified by Kerry Ascencio, Employee Development Specialist 02-11-2019, 19:01 Medications acyclovir 200 mg oral capsule See Instructions, PRN other (see comment), take one tablet every 4-6 hours as needed Start Date: 02/15/22 Status: Ordered Advair HFA 115 mcg-21 mcg/inh inhalation aerosol 2 puffs, Inhale, BID, # 12 g, 0 Refill(s), Pharmacy: [facility] #94 Start Date: 05/25/22 Stop Date: 06/24/22 [...] daily, # 90 tab, 0 Refill(s), Pharmacy: [facility] #94 Start Date: 08/31/22 Status: Ordered citalopram 20 mg oral tablet 20 mg = 1 tab, Oral, Daily Start Date: 02/15/22 Status: Ordered cyclobenzaprine 10 mg oral tablet 10 mg = 1 tab, Oral, TID, PRN as needed for muscle spasm, # 16 tab, 0 Refill(s), Pharmacy: [facility] #94 Start Date: 08/24/22 Status: Ordered Dilt-XR 120 mg/24 hours oral [...] Status: Ordered ibuprofen 800 mg oral tablet 800 mg = 1 tab, Oral, every 8 hr, PRN as needed for arthritis, # 90 tab, 0 Refill(s), Pharmacy: [facility] #94 Start Date: 08/15/22 Stop Date: 09/14/22 Status: Ordered levothyroxine 125 mcg (0.125 mg) oral tablet 125 mcg = 1 tab, Oral, Daily, # 90 tab, 3 Refill(s), Pharmacy: [facility] #94 Start Date: 08/03/22 Status: Ordered meclizine 25 mg oral tablet 25 mg = 1 tab, Oral, TID, PRN as needed for dizziness, # 30 tab, 1 Refill(s), Pharmacy: [facility] #94 Start Date: 08/02/22 Status: Ordered nitroglycerin 0.4 mg sublingual tablet 0.4 mg = 1 tab, SL Start Date: 02/15/22 Status: Ordered pantoprazole 40 mg oral delayed release tablet 40 mg = 1 tab, Oral, Daily, # 90 tab, 1 Refill(s), Pharmacy: [facility] #94 Start Date: 08/02/22 Status: Ordered ProAir HFA 90 mcg/inh inhalation aerosol See Instructions, PRN other (see comment), Inhale 2 puffs into the lungs every 4-6 hours as needed,# 8.5 g, 0 Refill(s), Pharmacy: [facility] #94 Start Date: 05/09/22 Status: Ordered PROCHAMBER [...] distal clavical excision. 2moderate sigmoid colon diverticulosis [facility], c/o RT nipple discharge, bx consistent with papilloma no dysplasia or atypia 4hemangiomas of LT chest and breast (Dr. Sykes [facility]) 5bilat knees 6left hip 7left knee [id number] 9Salpingectomy Unilateral Ectopic 10Surgical debridement of left trochanteric bursa with IT band tenotomy Vital Signs Most recent to oldest [Reference Range]: 1 2 3 Temperature Oral [35.8-37.3 Deg C] 36.7 Deg C (09/15/22 11:44 AM) Temperature Temporal Artery [36-38 Deg C] 36.5 Deg C (09/15/22 1:50 PM) 36.8 Deg C (09/15/22 1:35 PM) Temperature Temporal Artery (DegF) [97.3-100 Deg F] 97.7 Deg F (09/15/22 1:50 PM) 98.24 Deg F (09/15/22 1:35 PM) Peripheral Pulse Rate [60-100 bpm] 84 bpm (09/15/22 2:20 PM) 88 bpm (09/15/22 2:05 PM) 96 bpm (09/15/22 1:50 PM) Heart Rate Monitored [60-100 bpm] 84 bpm (09/15/22 2:20 PM) 89 bpm (09/15/22 2:05 PM) 96 bpm (09/15/22 1:50 PM) Respiratory Rate [12-24 br/min] 13 br/min (09/15/22 2:20 PM) 15 br/min (09/15/22 2:05 PM) 19 br/min (09/15/22 1:50 PM) Blood Pressure [90-140/60-90 mmHg] 142/79mmHg *HI* (09/15/22 2:20 PM) 140/77mmHg (09/15/22 2:05 PM) 147/84mmHg *HI* (09/15/22 1:50 PM) Mean Arterial Pressure, Cuff [65-140 mmHg] 100 mmHg (09/15/22 2:20 PM) 98 mmHg (09/15/22 2:05 PM) 105 mmHg (09/15/22 1:50 PM) Weight 83.000 kg (09/15/22 11:44 AM) Weight Dosing 83.000 kg (09/15/22 11:44 AM) Height 180.000 cm (09/15/22 11:44 AM) Height/Length Dosing 180.000 cm (09/15/22 11:44 AM) Body Mass Index 25.620 kg/m2 (09/15/22 11:44 AM) Social History Social History Type Response Tobacco Former tobacco user Tobacco Use:. 1 Sex Female 1quit in 1985 Hospital Discharge Instructions Patient Education 09/15/2022 13:27:19 ss Post General Anesthesia / Procedure Dischage Instructions General Post Anesthesia / Sedation Discharge Instructions Activities: Do not attempt to drive a vehicle or operate power equipment of any kind for at least 24 hours after discharge from the hospital. Do not consume alcoholic beverages or other mood-altering drugs on the day of surgery. Mild irritation at needle site: Apply warm, moist pack to area for 20 minutes four times a day for 2-3 days. Call physician if persistent redness and/or drainage at needle site. Go to ER or Call the office if: Fever within 24 hours after procedure / Surgery Uncontrollable pain even when taking pain medications as prescribed Follow Up Care 09/15/2022 11:17:52 With:David Aguilar MD Address: [facility] [address] [place] [address] When: Unknown Comments:Nurse visit Sunday for stent removal in office;??doctor visit the following week. Discharge instructions * Bonny Milian A: PERFORM Event Display: Discharge Instructions Authored Date: [id number] YESSENIA THORNTON :1960 Age:62 years Sex:Female Visit Date:09/15/2022 Primary Care Physician: Kerry Ascencio [facility] Discharge Instructions We would like to thank you for allowing us to assist you with your healthcare needs. The following includes patient education materials and information regarding your injury/illness. After you leave the hospital, you may get your health information including your test results, physician notes and discharge information by accessing your Patient Portal. Your Next Steps Instructions From Your Care Team Diet as tolerated. ??Activity as tolerated. ??Be aware of the stent pull string.?? Okay to shower but do not bathe or swim with the stent in.?? May use Tylenol, ibuprofen next dose at 7:30pm , Advil,Excedrin for pain. ??May use onuq-zwa-lhyarth phenazopyridine (Azo,??95 or 99 mg, 2 every 8 hours as needed for burning).?? Expect bloody urine, frequency, urgency, burning, and some left flank pain during or after urination. ??If the stent??is accidentally pulled??you will??either feel or see a isof blue plastic outside of the urinary opening, or you suddenly will have no urinary control. ??Should this happen, page Dr. Aguilar through the hospital band scroll saw operator. ??Call or return for fever above 100.5, shaking chills, severe pain, heavy bleeding, difficulty voiding, or other concerns.?? Office nurse visit??Sunday for stent removal, Visit the following week to discuss stone prevention. Scheduled Future Appointments Sunday 8:15 AM EST ?? Sunday 2:15 PM EST ?? Follow Up Appointments Follow Up with??David Aguilar MD Why: Nurse visit Sunday for stent removal in office;??doctor visit the following week. Where: [facility] [address] [place], [place] [id number] Your Summary Your Care Team Admitting Physician - David Aguilar MD Attending Physician - David Aguilar MD Primary Care Physician - Kerry Ascencio Referring Physician - David Aguilar MD Your Diagnosis Left ureteral calculus Hydronephrosis of left kidney Left nephrolithiasis Education Materials General Post Anesthesia / Sedation Discharge Instructions ? Activities: Do not attempt to drive a vehicle or operate power equipment of any kind for at least 24 hours after discharge from the hospital. ? Do not consume alcoholic beverages or other mood-altering drugs on the day of surgery. ? Mild irritation at needle site: Apply warm, moist pack to area for 20 minutes four times a day for 2-3 days. ? Call physician if persistent redness and/or drainage at needle site. ? Go to ER or Call the office if: ? Fever within 24 hours after procedure / Surgery ? Uncontrollable pain even when taking pain medications as prescribed Patient Name:YESSENIA THORNTON I have received this information and my questions have been answered. Patient/Workforce Planning Analyst Name: Patient/Workforce Planning Analyst Signature: Relationship to Patient: Witness Name/Signature: Date: Electronically Signed on: 09/15/2022 14:28 ESTSigned by:HIEN Patient Care team information Personnel Name: Kerry Ascencio Address: Address: [facility] [address] [address]- [place]
--- OUTSIDE RECORDS SUMMARY | 2024-04-10 13:38 | XMS_ITS | Referral Summary ---
Author Organization [facility] Address [address] [place] [address] Care Team Providers Care Revenue Inspector Name Role Phone Kerry Ascencio Primary Care Provider + Encounters Date Type Department Care Team Description 02/18/2024 Lab Requisition [facility] Pathology & Laboratory Medicine - [address] [address] Outr Resulting Lab, Provider from Last 3 Months Social History Tobacco Use Types Packs/Day Years Used Date Smoking Tobacco: Never Assessed Interpersonal Safety Answer Date Record ed Physically Hurt Never 04/20/2020 Verbally Threaten Not on file 04/20/2020 Sex and Gender Information Value Date Recorded Sex Assigned at Not on file Gender Identity Not on file Sexual Orientation Not on file Plan of Treatment Not on file Procedures Procedure Name Priority Date/Time Associated Diagnosis Comments LYME AB Routine 02/17/2024 23:15 EDT from Last 3 Months Results * LYME AB (02/17/2024 23:15 EDT) Lyme Ab Negative Negative 02/19/2024 10:30 EDT [facility] Blood VENOUS BLOOD / Unknown 02/17/2024 23:15 EDT 02/18/2024 16:59 EDT Provider Outr Resulting Lab IMMUNOLOGY A ND SEROLOGY ORDERABLES [facility] [address] [place] [address] from Last 3 Months Care Teams Revenue Inspector Relationship Specialty Start Date End Date Kerry Ascencio PA [address] [place] [address] [place] [id number] PCP - General 12/16/21
--- OUTSIDE RECORDS SUMMARY | 2024-04-10 13:38 | XMS_ITS | Encounter Summary ---
Author Organization [facility] Address [address] [place] [address] Care Team Providers Care Hat Copyist Name Role Phone Unknown, Provider Primary Care Provider [phone] Kerry Ascencio Primary Care Provider + Encounter Details Date Type Department Care Team ([facility] Contact Info) Description 07/08/2021 Lab Requisition [facility] Pathology & Laboratory Medicine - [address] [address] Gladys Sykes MD [address] [place] [address] [address] [place], [place] [id number] Encounter for other general examination Social History [...] Date/Time Associated Diagnosis Comments SURGICAL PATHOLOGY Today 07/08/2021 9: 25 EDT Encounter for other general examination documented in this encounter Results * SURGICAL PATHOLOGY (07/08/2021 9:25 EDT) Note to Patient The following pathology results have been interpreted by your pathologist and may be available to you before your health provider has had the opportunity to review them. Please allow time for your provider to receive these results and explore management options, if applicable. 07/11/2021 10:46 [facility] Final Diagnosis A. SKIN OF CHEST WALL, LEFT UPPER, EXCISION: - Hemangioma. B. SKIN OF BREAST, LEFT, EXCISION: - Hemangioma. 07/11/2021 10:46 [facility] Attestation By the signature below, the attending physician certifies that they have 1) personally conducted a gross and/or microscopic examination of the described specimen(s), and/or personally interpreted the results of laboratory testing of the described specimen(s), and 2) personally rendered or confirmed the above diagnosis. 07/11/2021 10:46 [facility] at 1046 Clinical History Skin lesions,? hemangioma 07/11/2021 10:46 [facility] Gross Description A. Received in formalin labelled with proper patient identification (initials G, D) and left upper chest wall lesion is an elliptical excision of pagan-pink skin (1.2 x 0.5 cm excised to a depth of 0.1 cm). There is a central dark red-purple nodular lesion (0.5 x 0.5 x 0.1 cm). The specimen is inked, the sectioned and submitted entirely as tips, reverse en face in A1 and 2 central sections in A2 B. Received in formalin labelled with proper patient identification (initials G, D) and left breast skin lesion at 11 o'clock is an elliptical excision of pagan-pink skin (1.0 x 0.5 cm, excised to depth of 0.2 cm). There is a central dark red nodular skin lesion (0.4 x 0.4 x 0.1 cm). The specimen is inked, sectioned and submitted entirely as tips, reverse en face in B1 and 2 central sections in B2. GENE MERCEDES([facility]) 07/08/2021 16:08 07/11/2021 10:46 [facility] Performing Lab [facility] 07/11/2021 10:46 [facility] Scanned Images 07/11/2021 10:46 EDT [facility] Tissue TISSUE SPECIMEN FROM SKIN / Unknown 07/08/2021 9:25 EDT 07/08/2021 15:51 EDT Tissue specimen (specimen) SPECIMEN FROM SKIN / Unknown 07/08/2021 9:25 EDT 07/08/2021 15:51 EDT Gladys Sykes MD PATHOLOGY ORDERA ALYSIA [facility] [address] [place] [address] documented in this encounter Visit Diagnoses Diagnosis Encounter for other general examination documented in this encounter Care Teams Hat Copyist Relationship Specialty Start Date End Date Unknown, Provider, PCP - General 08/22/18 12/15/21 Kerry Ascencio PA [address] [place] [phone] PCP - General 12/16/21 documented as of this encounter
--- OUTSIDE RECORDS SUMMARY | 2024-04-10 13:38 | XMS_ITS | Clinical Summary ---
Author Organization [facility] Address [address] [place] [address] Care Team Providers Care Medical Front Desk Coordinator Name Role Phone Kerry Ascencio Primary Care Provider + Encounters Date Type Department Care Team Description 02/18/2024 Lab Requisition [facility] Pathology & Laboratory Medicine - [address] [address] Outr Resulting Lab, Provider from Last 3 Months Social History Tobacco Use Types Packs/Day Years Used Date Smoking Tobacco: Never Assessed Interpersonal Safety Answer Date Record ed Physically Hurt Never 04/20/2020 Verbally Threaten Not on file 04/20/2020 Sex and Gender Information Value Date Recorded Sex Assigned at Not on file Gender Identity Not on file Sexual Orientation Not on file Plan of Treatment Health Maintenance Due Date Last Done Comments Hepatitis C Screen 1960 RSV Immunization ( o r 60+ Years) (1 - 1-dose 60+ series) 2020 COVID-19 Vaccine (2022- season) 2023 Procedures Procedure Name Priority Date/Time Associated Diagnosis Comments LYME AB Routine 02/17/2024 23:15 EDT from Last 3 Months Results * LYME AB (02/17/2024 23:15 EDT) Lyme Ab Negative Negative 02/19/2024 10:30 EDT [facility] Blood VENOUS BLOOD / Unknown 02/17/2024 23:15 EDT 02/18/2024 16:59 EDT Provider Outr Resulting Lab IMMUNOLOGY A ND SEROLOGY ORDERABLES [facility] [address] [place], [place] [phone] from Last 3 Months Care Teams Medical Front Desk Coordinator Relationship Specialty Start Date End Date Kerry Ascencio PA [address] [place] [address] [place] [phone] PCP - General 12/16/21
--- OUTSIDE RECORDS SUMMARY | 2024-04-10 13:38 | XMS_ITS | Encounter Summary ---
[place] [address] Care Team Providers Care Poultry Hatchery Supervisor Name Role Phone Kerry Ascencio Primary Care Provider + Reason for Visit * Reason Onset Date Comments Triage 04/08/2024 Sharp chest pain over weeks Encounter Details Date Type Department Care Team (Late st Contact Info) Description 04/08/2024 Telephone Cardiology at [address] [phone] Nayla Burnett, demi chef (Sharp chest pain over weeks) Social History Tobacco Use Types Packs/Day Years Used Date Smoking Tobacco: Former Cigarettes 1 10 4 - 1983 Smokeless Tobacco: Never Alcohol Use Standard Drinks/Week Comments Never 0 (1 standard drink = 0.6 oz pur e alcohol) Sex and Gender Information Value Date Recorded Sex Assigned at Not on file Gender Identity Not on file Sexual Orientation Not on file documented as of this encounter Miscellaneous Notes * Telephone Encounter - Nayla Burnett, RN - 04/08/2024 1:21 PM EDT RTC to patient who reports roughly 2 months ago she started experiencing 7/10 sharp chest pain overleft side of chest that lasts 1-2 seconds. States it was happening very infrequently until roughly 2 weeks ago when she noticed it increasing. States it's now happening through out the day. States ithappens at rest and with activity, she doesn't recall hurting herself. States she has noticed an increase in ROCHA as well. States she has been on light duty and was told to stay off her feet as much as possible due to plantar fasciitis and so she has become even more deconditioned. States she notices these symptoms more so now because she is just sitting around all day. Instructed patient that this information would be sent to Dr. Martinez for review. Patient doesn't feel she needs to go to the ER at this point, but is aware she should if chest pain should worsen or become constant. Nayla Burnett crm marketing analyst [facility] [phone] documented in this encounter Plan of Treatment Upcoming Encounters Date Type Department Care Team (Late st Contact Info) Description 04/28/2024 1:40 PM EDT Office Visit Cardiology at [address] [phone] Cody Martinez MD [facility] [place] [address] 05/27/2024 11:20 AM EDT Office Visit Dermatology at [address] [phone] 06/13/2024 9:00 AM EDT [place] [phone] Kelly Miller APRN [facility] [place] [address] 06/13/2024 10:00 AM EDT Laboratory Appointment Lab [address] [place] [phone] 06/13/2024 11:00 AM EDT Office [place] [phone] Kelly Miller APRN [facility] [place] [address] 10/22/2024 10:30 AM EST Office Visit [place] [phone] Marialuisa Peres MD [facility] [place] [address] documented as of this encounter Visit Diagnoses Not on filedocumented in this encounter Care Teams Poultry Hatchery Supervisor Relationship Specialty Start Date End Date Kerry Ascencio PA [address] [place] [address] [place] [address] PCP - General Internal Medicine 01/29/21 documented as of this encounter
--- OUTSIDE RECORDS SUMMARY | 2024-04-10 13:38 | XMS_ITS | Encounter Summary ---
Author Organization [facility] Address [address] [place] [address] Care Team Providers Care Wheat Cleaner Name Role Phone Unknown, Provider Primary Care Provider [phone] Encounter Details Date Type Department Care Team (Latest Contact Info) Description 02/01/2016 7:58 EDT - 02/01/2016 23:59 EDT Hospital Encounter [address] [address] Unknown, Provider, Discharge Disposition: Home or Self Care Social History Tobacco Use Types Packs/Day Years Used Date Smoking Tobacco: Never Assessed Sex and Gender Information Value Date Recorded Sex Assigned at Not on file Gender Identity Not on file Sexual Orientation Not on file documented as of this encounter Discharge Disposition Disposition Code Departure Means Destination Home or Self [place] documented in this encounter Plan of Treatment Not on file documented as of this encounter Visit Diagnoses Not on filedocumented in this encounter Care Teams Wheat Cleaner Relationship Specialty Start Date End Date Unknown, Provider, PCP - General 07/24/15 02/03/16 documented as of this encounter
--- OUTSIDE RECORDS SUMMARY | 2024-04-10 13:38 | XMS_ITS | Encounter Summary ---
Author Organization [facility] Address [address] [place] [address] Care Team Providers Care Kosher Sealer Name Role Phone Unavailable Primary Care Provider Unavailabl e Encounter Details Date Type Department Care Team (Late st Contact Info) Description 10/25/2006 Results Only [facility] [address] [place] [address] Kevin Jmiénez MD [address] [place] [address] [address] [phone] Social History Tobacco Use Types Packs/Day Years Used Date Smoking Tobacco: Never Assessed Sex and Gender Information Value Date Recorded Sex Assigned at Not on file Gender Identity Not on file Sexual Orientation Not on file documented as of this encounter Plan of Treatment Not on file documented as of this encounter Procedures Procedure Name Priority Date/Time Associated Diagnosis Comments CYTOPATHOLOGY Routine 10/25/2006 0:00 EST documented in this encounter Results * CYTOPATHOLOGY (10/25/2006 0:00 EST) Pathology Report: CYTOPATHOLOGY REPORT Reports generated via electronic interface contain original data; however they are lacking the format of the original report. Caution should be taken when reading/interpreti ng unformatted reports. Name: ? AGATHA YI ? Accession #: ? [id number] : ? 1960 (Age: 46) ??F ?Collect Date: ? 10/25/2006 Location: ? [facility] ? Receive Date: ? 10/26/2006 Provider: ?KEVIN JIMÉNEZ MD Copy to: ? Specimen/Source: ?ThinPrep Pap Test, Cervix/Endocervix, processed on [employer] ThinPrep Imaging System, with manual evaluation Last Menstrual Period: ? Menstrual/Pregnanc y Status: ? Amenorrhea Hormonal/Contracep tive Status: ? Intrauterine device: Mirena ? SPECIMEN ADEQUACY ? Satisfactory for Evaluation - transformation zone component present GENERAL CATEGORIZATION ? Negative for Intraepithelial Lesion or Malignancy ? Document reviewed and electronically signed by: ? Conchita Hanley, SCT(ASCP) ? Report Date: ??10/30/2006 12:21 End of Report SRINI MARTINES 10/25/2006 10/26/2006 Kevin Jiménez MD PATHOLOGY ORDERABLES Performing Organization Address City/State/[facility] Co de Phone Number SRINI MARTINES [address] [place] [address] documented in this encounter Visit Diagnoses Not on filedocumented in this encounter
--- OUTSIDE RECORDS SUMMARY | 2024-04-10 13:38 | XMS_ITS | Continuity of Care Document ---
Author Organization [facility] Ambulatory Clinics Address [address] [place] [address] Care Team Providers Care Credit Clerk Name Role Phone BRIANA ABAD Primary Care Physician Encounter [facility] NBR [id number] Date(s): 03/19/24 - 03/19/24 [facility] Ambulatory Clinics [address], [place] [address] Encounter Diagnosis BPPV (benign paroxysmal positional vertigo)(Discharge Diagnosis) - 03/19/24 Middle ear effusion(Discharge Diagnosis) - 03/19/24 Discharge Disposition: Home or Self Care Attending Physician: Pam Alvarez PA-C Allergies, Adverse Reactions, Alerts Substance Reaction Severity Status penicillin Moderate Active morphine Moderate Active Adhesive Bandage Mild Active Vicodin Moderate Active Tape Moderate Active Assessment and Plan Extracted from: Title:Office Visit Note Author:GENE Wahl Date:03/19/24 1.??BPPV (benign paroxysmal positional vertigo)??H81.10 ??Patient presenting reporting??1 month of??vertigo symptoms, also associated with bilateral ear pressure, fullness, and intermittent pain. ??She is noted to have a bilateral??effusion,??left greater than right.?? She does have an appointment with her primary care next week and I stressed the importance of her keeping this appointment.?? Her neurologic exam is completely nonfocal and benign today.?? She is moving??her head throughout the exam comfortably without any obvious exacerbation of her symptoms. ??She has not had any red flag symptoms. ??She has dealt with vertigo??on several occasions in the past.?? I recommended??that she stop the meclizine??as it is making her feel??fatigued,??and trial??Claritin-D as well as Flonase to see if this will help alleviate her inner ear effusion.?? Chewing gum may be therapeutic.?? Recommended??follow-up with her PCP??with her scheduled appointment next week. ??If at any point she develops acutely worsening vertigo,??vomiting, visual disturbances, weakness, paresthesia, or other acutely worsening neurologic symptoms??she is to go to the emergency department. ??She agrees with plan will follow-up as needed 2.??Middle ear effusion??H65.90 Medications citalopram 20 mg oral tablet 0 Refill(s) Start Date: 03/19/24 Status: Ordered citalopram 20 mg oral tablet 0 Refill(s) Start Date: 03/19/24 Status: Ordered DilTIAZem (Eqv-Cardizem CD) 240 mg/24 hours oral capsule, extended release 0 Refill(s) Start Date: 03/19/24 Status: Ordered EPINEPHrine 0.3 mg injectable kit 0 Refill(s) Start Date: 03/19/24 Status: Ordered ezetimibe 10 mg oral tablet 0 Refill(s) Start Date: 03/19/24 Status: Ordered levothyroxine 125 mcg (0.125 mg) oral tablet 0 Refill(s) Start Date: 03/19/24 Status: Ordered levothyroxine 150 mcg (0.15 mg) oral tablet 0 Refill(s) Start Date: 03/19/24 Status: Ordered meclizine 25 mg oral tablet 0 Refill(s) Start Date: 03/19/24 Status: Ordered Myrbetriq 50 mg oral tablet, extended release 0 Refill(s) Start Date: 03/19/24 Status: Ordered rosuvastatin 40 mg oral tablet 0 Refill(s) Start Date: 03/19/24 Status: Ordered Vital Signs Most recent to oldest [Reference Range]: 1 Temperature Tympanic [36.6-38.1 Deg C] 3 6.7 Deg C (03/19/24 9:04 AM) Peripheral Pulse Rate [60-100 bpm] 71 bp m (03/19/24 9:04 AM) Blood Pressure [90-140/60-90 mmHg] 130/7 4mmHg (03/19/24 9:04 AM) Mean Arterial Pressure, Cuff [65-140 mmH g] 93 mmHg (03/19/24 9:04 AM) Weight 83.91 kg (03/19/24 9:04 AM) Weight Measured (lbs) 184.99 lb (03/19/24 9:04 AM) Weight Dosing 83.910 kg (03/19/24 9:04 AM) Social History Social History Type Response Tobacco Never tobacco user T obacco Use:. Sex Hospital Discharge Instructions Patient Education 03/19/2024 08:34:05 Benign Positional Vertigo Benign Positional Vertigo Vertigo is the feeling that you or your surroundings are moving when they are not. Benign positional vertigo is the most common form of vertigo. This is usually a harmless condition (benign). This condition is positional. This means that symptoms are triggered by certain movements and positions. This condition can be dangerous if it occurs while you are doing something that could cause harm toyourself or others. This includes activities such as driving or operating machinery. What are the causes? The inner ear has fluid-filled canals that help your brain sense movement and balance. When the fluid moves, the brain receives messages about your body's position. With benign positional vertigo, calcium crystals in the inner ear break free and disturb the inner ear area. This causes your brain to receive confusing messages about your body's position. What increases the risk? You are more likely to develop this condition if: ??? You are a woman. ??? You are 50 years of age or older. ??? You have recently had a head injury. ??? You have an inner ear disease. What are the signs or symptoms? Symptoms of this condition usually happen when you move your head or your eyes in different directions. Symptoms may start suddenly and usually last for less than a minute. They include: ??? Loss of balance and falling. ??? Feeling like you are spinning or moving. ??? Feeling like your surroundings are spinning or moving. ??? Nausea and vomiting. ??? Blurred vision. ??? Dizziness. ??? Involuntary eye movement (nystagmus). Symptoms can be mild and cause only minor problems, or they can be severe and interfere with daily life. Episodes of benign positional vertigo may return (recur) over time. Symptoms may also improve over time. How is this diagnosed? This condition may be diagnosed based on: ??? Your medical history. ??? A physical exam of the head, neck, and ears. ??? Positional tests to check for or stimulate vertigo. You may be asked to turn your head and change positions, such as going from sitting to lying down. A health care provider will watch for symptoms of vertigo. You may be referred to a health care provider who specializes in ear, nose, and throat problems (ENT or service electrician) or a provider who specializes in disorders of the nervous system (neurologist). How is this treated? This condition may be treated in a session in which your health care provider moves your head in specific positions to help the displaced crystals in your inner ear move. Treatment for this conditionmay take several sessions. Surgery may be needed in severe cases, but this is rare. In some cases, benign positional vertigo may resolve on its own in 2???4 weeks. Follow these instructions at home: Safety ??? Move slowly. Avoid sudden body or head movements or certain positions, as told by your health care provider. ??? Avoid driving or operating machinery until your health care provider says it is safe. ??? Avoid doing any tasks that would be dangerous to you or others if vertigo occurs. ??? If you have trouble walking or keeping your balance, try using a cane for stability. If you feel dizzy or unstable, sit down right away. ??? Return to your normal activities as told by your health care provider. Ask your health care provider what activities are safe for you. General instructions ??? Take iuvs-uvj-bmcrzke and prescription medicines only as told by your health care provider. ??? Drink enough fluid to keep your urine pale yellow. ??? Keep all follow-up visits. This is important. Contact a health care provider if: ??? You have a fever. ??? Your condition gets worse or you develop new symptoms. ??? Your family or friends notice any behavioral changes. ??? You have nausea or vomiting that gets worse. ??? You have numbness or a prickling and tingling sensation. Get help right away if you: ??? Have difficulty speaking or moving. ??? Are always dizzy or faint. ??? Develop severe headaches. ??? Have weakness in your legs or arms. ??? Have changes in your hearing or vision. ??? Develop a stiff neck. ??? Develop sensitivity to light. These symptoms may represent a serious problem that is an emergency. Do not wait to see if the symptoms will go away. Get medical help right away. Call your local emergency services (911 in the [place] Do not drive yourself to the hospital. Summary ??? Vertigo is the feeling that you or your surroundings are moving when they are not. Benign positional vertigo is the most common form of vertigo. ??? This condition is caused by calcium crystals in the inner ear that become displaced. This causes a disturbance in an area of the inner ear that helps your brain sense movement and balance. ??? Symptoms include loss of balance and falling, feeling that you or your surroundings are moving,nausea and vomiting, and blurred vision. ??? This condition can be diagnosed based on symptoms, a physical exam, and positional tests. ??? Follow safety instructions as told by your health care provider and keep all follow-up visits. This is important. This information is not intended to replace advice given to you by your health care provider. Make sure you discuss any questions you have with your health care provider. Document Revised: 08/03/2021 Document Reviewed: 08/03/2021 [employer] Patient Education ?? 2022 [email or web address]. 03/19/2024 08:34:04 Otitis Media With Effusion, Adult Otitis Media With Effusion, Adult Otitis media with effusion (OME) is inflammation and fluid (effusion) in the middle ear without having an ear infection. The middle ear is the space behind the eardrum. The middle ear is connected tothe back of the throat by a narrow tube (eustachian tube). Normally the eustachian tube drains fluid out of the middle ear. A swollen eustachian tube can become blocked and cause fluid to collect in the middle ear. OME often goes away without treatment. Sometimes OME can lead to hearing problems and recurrent acute ear infections (acute otitis media). These conditions may require treatment. What are the causes? OME is caused by a blocked eustachian tube. This can result from: ??? Allergies. ??? Upper respiratory infections. ??? Enlarged adenoids. The adenoids are areas of soft tissue located high in the back of the throat, behind the nose and the roof of the mouth. They are part of the body's natural defense system (immune system). ??? Rapid changes in pressure, like when an airplane is descending or during scuba diving. In some cases, the cause of this condition is not known. What are the signs or symptoms? Common symptoms of this condition include: ??? A feeling of fullness in your ear. ??? Decreased hearing in the affected ear. ??? Fluid draining into the ear canal. ??? Pain in the ear. In some cases, there are no symptoms. How is this diagnosed? A health care provider can diagnose OME based on signs and symptoms of the condition. Your providerwill also do a physical exam to check for fluid behind the eardrum. During the exam, your health care provider will use an instrument called an otoscope to look in your ear. Your health care provider may do other tests, such as: ??? A hearing test. ??? A tympanogram. This is a test that shows how well the eardrum moves in response to air pressurein the ear canal. It provides a graph for your health care provider to review. ??? A pneumatic otoscopy. This is a test to check how your eardrum moves in response to changes in pressure. It is done by squeezing a small amount of air into the ear. How is this treated? Treatment for OME depends on the cause of the condition and the severity of symptoms. The first step is often waiting to see if the fluid drains on its own in a few weeks. Home care treatment may include: ??? Bkuz-hrb-yhfgfgs pain relievers. ??? A warm, moist cloth placed over the ear. Severe cases may require a procedure to insert tubes in the ears (tympanostomy tubes) to drain the fluid. Follow these instructions at home: ??? Take agxz-myp-raqycxk and prescription medicines only as told by your health care provider. ??? Keep all follow-up visits. Contact a health care provider if: ??? You have pain that gets worse. ??? Hearing in your affected ear gets worse. ??? You have fluid draining from your ear canal. ??? You have dizziness. ??? You develop a fever. Get help right away if: ??? You develop a severe headache. ??? You completely lose hearing in the affected ear. ??? You have bleeding from your ear canal. ??? You have sudden and severe pain in your ear. These symptoms may represent a serious problem that is an emergency. Do not wait to see if the symptoms will go away. Get medical help right away. Call your local emergency services (911 in the [place] Do not drive yourself to the hospital. Summary ??? Otitis media with effusion (OME) is inflammation and fluid (effusion) in the middle ear withouthaving an ear infection. ??? A swollen eustachian tube can become blocked and cause fluid to collect in the middle ear. ??? Treatment for OME depends on the cause of the condition and the severity of symptoms. ??? Many times, treatment is not needed because the fluid drains on its own in a few weeks. ??? Sometimes OME can lead to hearing problems and recurrent acute ear infections (acute otitis media), which may require treatment. This information is not intended to replace advice given to you by your health care provider. Make sure you discuss any questions you have with your health care provider. Document Revised: 12/29/2021 Document Reviewed: 12/29/2021 [employer] Patient Education ?? 2022 [email or web address]. Physician Outpatient Note * Pam Alvarez PA-C: PERFORM Event Display: Office Clinic Note Physician Authored Date: [id number] YESSENIA THORNTON :1960 Age:63 years Sex:Female Visit Date:03/19/2024 Primary Care Physician: BRIANA ABAD Chief Complaint thought she was having vertigo, has been taking meclizine, has noticed shes been having ear pain, thinks this might be the cause of her symptoms History of Present Illness This is a 63-year-old female who presents??requesting evaluation of her ears. ??Patient reports that she has been dealing with vertigo for the past month.?? She has dealt with vertigo several times??in her life in the past.?? She notes that she has never had an episode that has lasted this long.?? At the onset of her vertigo, she contacted her primary care provider who called in a prescription for meclizine but she was not evaluated at the time.?? She has been taking meclizine 3 times a day forthe past month.?? She notes that is making her feel tired. ??She has not had any improvement in hervertigo.?? She describes her vertigo??as positional in nature, worsening with head movement??and positional changes.?? She denies any associated vomiting. ??She has??chronic headaches for which she is followed by neurology, receives Emgality injections. ??She has not had any exacerbation in her headaches. ??She has not had any visual disturbances, weakness, paresthesia, change in??balance.?? No difficulty with speech.?? She has a follow-up appointment with her primary care next week. ??She believes that she has had imaging in the past??but cannot entirely recall.?? Patient would like her earsevaluated as she wonders if this could be contributing to her symptoms. ??She has had a sense of pressure and intermittent pain in both of her ears.?? She notes that it feels like they are plugged and that she cannot fully??alleviate the pressure. ??She sometimes gets a crackling sensation in the right ear.?? Denies any fever. ??She does struggle with allergies Physical Exam Vitals & Measurements T:??36.7?C ??(Tympanic)?? HR:??71??(Peripheral)?? BP:??130/74?? SpO2:??98%?? WT:??83.91??kg?? General: A&O x 3, well-built and hydrated, no acute distress Eyes: PERRLA, no redness or drainage, EOMI, no nystagmus Ears: auditory canals non-tender bilaterally,??bilateral TMs with evidence of effusion L>R, no erythema or bulging Nose: nares moist and patent Mouth: moist mucous membranes without lesions Throat: oropharynx and tonsils without erythema or exudate Neck: supple, no lymphadenopathy Chest: symmetric rise Heart: normal S1S2, no murmurs, rubs, gallops Lungs: equal and symmetric respiratory effort, lungs clear to auscultation without wheezes, rales, rhonchi Neuro: Cranial nerves II through XII intact, normal rapid alternating movements, no cerebellar signs,??negative Romberg, normal gait Assessment/Plan 1.??BPPV (benign paroxysmal positional vertigo)??H81.10 ??Patient presenting reporting??1 month of??vertigo symptoms, also associated with bilateral ear pressure, fullness, and intermittent pain. ??She is noted to have a bilateral??effusion,??left greaterthan right.?? She does have an appointment with her primary care next week and I stressed the importance of her keeping this appointment.?? Her neurologic exam is completely nonfocal and benign today.?? She is moving??her head throughout the exam comfortably without any obvious exacerbation of her symptoms. ??She has not had any red flag symptoms. ??She has dealt with vertigo??on several occasions in the past.?? I recommended??that she stop the meclizine??as it is making her feel??fatigued,??and trial??Claritin-D as well as Flonase to see if this will help alleviate her inner ear effusion.?? Chewing gum may be therapeutic.?? Recommended??follow-up with her PCP??with her scheduled appointment next week. ??If at any point she develops acutely worsening vertigo,??vomiting, visual disturbances, weakness, paresthesia, or other acutely worsening neurologic symptoms??she is to go to the emergency department. ??She agrees with plan will follow-up as needed 2.??Middle ear effusion??H65.90 Patient Instructions You were noted to have an effusion in the inner ear bilaterally.?? This??may be contributing to your symptoms of vertigo. ??I recommend that you purchase??Claritin-D and take this once daily.?? I also recommend a nasal spray such as Flonase in the morning and evening.?? This should help??alleviate the symptoms of the fluid in the inner ear??and ideally improve your symptoms of vertigo.?? It is important that you keep your follow-up appointment with primary care in the event that your symptoms or not improving, as imaging may be indicated. ??If at any??point your symptoms are acutely worseningor if you are developing any??other concerning neurologic symptoms such as weakness,??numbness or tingling,??difficulty with speech or vision,??significant change in balance or coordination please goto the emergency department. Patient Education Benign Positional Vertigo Otitis Media With Effusion, Adult Problem List/Past Medical History Ongoing No qualifying data Historical No qualifying data Medications citalopram 20 mg oral tablet citalopram 20 mg oral tablet DilTIAZem (Eqv-Cardizem CD) 240 mg/24 hours oral capsule, extended release EPINEPHrine 0.3 mg injectable kit ezetimibe 10 mg oral tablet levothyroxine 125 mcg (0.125 mg) oral tablet levothyroxine 150 mcg (0.15 mg) oral tablet meclizine 25 mg oral tablet Myrbetriq 50 mg oral tablet, extended release rosuvastatin 40 mg oral tablet Allergies Tape Vicodin morphine penicillin Adhesive Bandage Social History Alcohol Never Electronic Cigarette/Vaping Electronic Cigarette Use: Never. Substance Use Never Tobacco Never tobacco user Tobacco Use:. Electronically Signed on 03/19/2024 09:43 EDT Pam Alvarez PA-C Outpatient Summary note * Pam Alvarez PA-C: PERFORM Event Display: Ambulatory Patient Summary Authored Date: [id number] NICOLASMECCA YESSENIA :1960 Age:63 years Sex:Female Visit Date:03/19/2024 Primary Care Physician: BRIANA ABAD Ambulatory Visit Instructions We would like to thank you for allowing us to assist you with your healthcare needs. The following includes patient education materials and information regarding your injury/illness. Your Next Steps Instructions From Your Care Team You were noted to have an effusion in the inner ear bilaterally.?? This??may be contributing to your symptoms of vertigo. ??I recommend that you purchase??Claritin-D and take this once daily.?? I also recommend a nasal spray such as Flonase in the morning and evening.?? This should help??alleviate the symptoms of the fluid in the inner ear??and ideally improve your symptoms of vertigo.?? It is important that you keep your follow-up appointment with primary care in the event that your symptoms or not improving, as imaging may be indicated. ??If at any??point your symptoms are acutely worseningor if you are developing any??other concerning neurologic symptoms such as weakness,??numbness or tingling,??difficulty with speech or vision,??significant change in balance or coordination please goto the emergency department. Medications What When Instructions Unchanged citalopram (citalopram 20 mg oral tablet) Unchanged citalopram (citalopram 20 mg oral tablet) Unchanged dilTIAZem (DilTIAZem (Eqv-Cardizem CD) 240 mg/ 24 hours oral capsule, extended release) Unchanged EPINEPHrine (EPINEPHrine 0.3 mg injectable kit) Unchanged ezetimibe (ezetimibe 10 mg oral tablet) Unchanged levothyroxine (levothyroxine 125 mcg (0.125 mg) oral tablet) Unchanged levothyroxine (levothyroxine 150 mcg (0.15 mg) oral tablet) Unchanged meclizine (meclizine 25 mg oral tablet) Unchanged mirabegron (Myrbetriq 50 mg oral tablet, extended release) Unchanged rosuvastatin (rosuvastatin 40 mg oral tablet) Your Summary Your Diagnosis BPPV (benign paroxysmal positional vertigo) Middle ear effusion Your Care Team Attending Physician - Pam Alvarez PA-C Primary Care Physician - BRIANA ABAD Discharge Vitals Temperature??(Tympanic) 98.1 ??F (36.7 ??C) Heart Rate??(Peripheral) 71 Blood Pressure?? 130/74?? SpO2?? 98% Weight?? 185.02 lb (83.91 kg) Allergies Tape Vicodin morphine penicillin Adhesive Bandage Education Materials Benign Positional Vertigo Vertigo is the feeling that you or your surroundings are moving when they are not. Benign positional vertigo is the most common form of vertigo. This is usually a harmless condition (benign). This condition is positional. This means that symptoms are triggered by certain movements and positions. This condition can be dangerous if it occurs while you are doing something that could cause harm toyourself or others. This includes activities such as driving or operating machinery. What are the causes? The inner ear has fluid-filled canals that help your brain sense movement and balance. When the fluid moves, the brain receives messages about your body's position. With benign positional vertigo, calcium crystals in the inner ear break free and disturb the inner ear area. This causes your brain to receive confusing messages about your body's position. What increases the risk? You are more likely to develop this condition if: ? You are a woman. ? You are 50 years of age or older. ? You have recently had a head injury. ? You have an inner ear disease. What are the signs or symptoms? Symptoms of this condition usually happen when you move your head or your eyes in different directions. Symptoms may start suddenly and usually last for less than a minute. They include: ? Loss of balance and falling. ? Feeling like you are spinning or moving. ? Feeling like your surroundings are spinning or moving. ? Nausea and vomiting. ? Blurred vision. ? Dizziness. ? Involuntary eye movement (nystagmus). Symptoms can be mild and cause only minor problems, or they can be severe and interfere with daily life. Episodes of benign positional vertigo may return (recur) over time. Symptoms may also improve over time. How is this diagnosed? This condition may be diagnosed based on: ? Your medical history. ? A physical exam of the head, neck, and ears. ? Positional tests to check for or stimulate vertigo. You may be asked to turn your head and change positions, such as going from sitting to lying down. A health care provider will watch for symptoms of vertigo. You may be referred to a health care provider who specializes in ear, nose, and throat problems (ENT or service electrician) or a provider who specializes in disorders of the nervous system (neurologist). How is this treated? This condition may be treated in a session in which your health care provider moves your head in specific positions to help the displaced crystals in your inner ear move. Treatment for this conditionmay take several sessions. Surgery may be needed in severe cases, but this is rare. In some cases, benign positional vertigo may resolve on its own in 2???4 weeks. Follow these instructions at home: Safety ? Move slowly. Avoid sudden body or head movements or certain positions, as told by your health care provider. ? Avoid driving or operating machinery until your health care provider says it is safe. ? Avoid doing any tasks that would be dangerous to you or others if vertigo occurs. ? If you have trouble walking or keeping your balance, try using a cane for stability. If you feel dizzy or unstable, sit down right away. ? Return to your normal activities as told by your health care provider. Ask your health care provider what activities are safe for you. General instructions ? Take yuen-mss-zomkezs and prescription medicines only as told by your health care provider. ? Drink enough fluid to keep your urine pale yellow. ? Keep all follow-up visits. This is important. Contact a health care provider if: ? You have a fever. ? Your condition gets worse or you develop new symptoms. ? Your family or friends notice any behavioral changes. ? You have nausea or vomiting that gets worse. ? You have numbness or a prickling and tingling sensation. Get help right away if you: ? Have difficulty speaking or moving. ? Are always dizzy or faint. ? Develop severe headaches. ? Have weakness in your legs or arms. ? Have changes in your hearing or vision. ? Develop a stiff neck. ? Develop sensitivity to light. These symptoms may represent a serious problem that is an emergency. Do not wait to see if the symptoms will go away. Get medical help right away. Call your local emergency services (911 in the [place] Do not drive yourself to the hospital. Summary ? Vertigo is the feeling that you or your surroundings are moving when they are not. Benign positional vertigo is the most common form of vertigo. ? This condition is caused by calcium crystals in the inner ear that become displaced. This causes a disturbance in an area of the inner ear that helps your brain sense movement and balance. ? Symptoms include loss of balance and falling, feeling that you or your surroundings are moving, nausea and vomiting, and blurred vision. ? This condition can be diagnosed based on symptoms, a physical exam, and positional tests. ? Follow safety instructions as told by your health care provider and keep all follow-up visits. Thisis important. This information is not intended to replace advice given to you by your health care provider. Make sure you discuss any questions you have with your health care provider. Document Revised: 08/03/2021 Document Reviewed: 08/03/2021 [employer] Patient Education ?? 2022 [employer] Otitis Media With Effusion, Adult Otitis media with effusion (OME) is inflammation and fluid (effusion) in the middle ear without having an ear infection. The middle ear is the space behind the eardrum. The middle ear is connected tothe back of the throat by a narrow tube (eustachian tube). Normally the eustachian tube drains fluid out of the middle ear. A swollen eustachian tube can become blocked and cause fluid to collect in the middle ear. OME often goes away without treatment. Sometimes OME can lead to hearing problems and recurrent acute ear infections (acute otitis media). These conditions may require treatment. What are the causes? OME is caused by a blocked eustachian tube. This can result from: ? Allergies. ? Upper respiratory infections. ? Enlarged adenoids. The adenoids are areas of soft tissue located high in the back of the throat, behind the nose and the roof of the mouth. They are part of the body's natural defense system (immune system). ? Rapid changes in pressure, like when an airplane is descending or during scuba diving. In some cases, the cause of this condition is not known. What are the signs or symptoms? Common symptoms of this condition include: ? A feeling of fullness in your ear. ? Decreased hearing in the affected ear. ? Fluid draining into the ear canal. ? Pain in the ear. In some cases, there are no symptoms. How is this diagnosed? A health care provider can diagnose OME based on signs and symptoms of the condition. Your providerwill also do a physical exam to check for fluid behind the eardrum. During the exam, your health care provider will use an instrument called an otoscope to look in your ear. Your health care provider may do other tests, such as: ? A hearing test. ? A tympanogram. This is a test that shows how well the eardrum moves in response to air pressure in the ear canal. It provides a graph for your health care provider to review. ? A pneumatic otoscopy. This is a test to check how your eardrum moves in response to changes in pressure. It is done by squeezing a small amount of air into the ear. How is this treated? Treatment for OME depends on the cause of the condition and the severity of symptoms. The first step is often waiting to see if the fluid drains on its own in a few weeks. Home care treatment may include: ? Mkjg-vzt-othrmxb pain relievers. ? A warm, moist cloth placed over the ear. Severe cases may require a procedure to insert tubes in the ears (tympanostomy tubes) to drain the fluid. Follow these instructions at home: ? Take ylmy-qob-ftdwavh and prescription medicines only as told by your health care provider. ? Keep all follow-up visits. Contact a health care provider if: ? You have pain that gets worse. ? Hearing in your affected ear gets worse. ? You have fluid draining from your ear canal. ? You have dizziness. ? You develop a fever. Get help right away if: ? You develop a severe headache. ? You completely lose hearing in the affected ear. ? You have bleeding from your ear canal. ? You have sudden and severe pain in your ear. These symptoms may represent a serious problem that is an emergency. Do not wait to see if the symptoms will go away. Get medical help right away. Call your local emergency services (911 in the [place] Do not drive yourself to the hospital. Summary ? Otitis media with effusion (OME) is inflammation and fluid (effusion) in the middle ear without having an ear infection. ? A swollen eustachian tube can become blocked and cause fluid to collect in the middle ear. ? Treatment for OME depends on the cause of the condition and the severity of symptoms. ? Many times, treatment is not needed because the fluid drains on its own in a few weeks. ? Sometimes OME can lead to hearing problems and recurrent acute ear infections (acute otitis media),which may require treatment. This information is not intended to replace advice given to you by your health care provider. Make sure you discuss any questions you have with your health care provider. Document Revised: 12/29/2021 Document Reviewed: 12/29/2021 [employer] Patient Education ?? 2022 [employer] Electronically Signed on: 03/19/2024 09:34 EDTSigned by:ANDREW Patient Care team information Care Team Personnel Name: BRIANA ABAD Position: No Access Member Role: Primary Care Physician Address: Address: [address] [place] [id number] [place] Care Team Related Persons Name: CHUY THORNTON
--- OUTSIDE RECORDS SUMMARY | 2024-04-10 13:38 | XMS_ITS | Encounter Summary ---
Author Organization [facility] Address [address] [place] [address] Care Team Providers Care Tobacco Baler Name Role Phone Unavailable Primary Care Provider Unavailabl e Encounter Details Date Type Department Care Team (Late st Contact Info) Description 10/04/2001 Results Only [facility] [address] [place] [address] Kevin Jiménez MD [address] [place] [address] [address] [phone] Social History Tobacco Use Types Packs/Day Years Used Date Smoking Tobacco: Never Assessed Sex and Gender Information Value Date Recorded Sex Assigned at Not on file Gender Identity Not on file Sexual Orientation Not on file documented as of this encounter Plan of Treatment Not on file documented as of this encounter Procedures Procedure Name Priority Date/Time Associated Diagnosis Comments CYTOPATHOLOGY Routine 10/04/2001 0:00 EST documented in this encounter Results * CYTOPATHOLOGY (10/04/2001 0:00 EST) Pathology Report: CYTOPATHOLOGY REPORT Reports generated via electronic interface contain original data; however they are lacking the format of the original report. Caution should be taken when reading/interpreti ng unformatted reports. Name: ? AGATHA YI ? Accession #: ? [id number] : ? 1960 (Age: 41) ??F ?Collect Date: ? 10/04/2001 Location: ? [facility] ? Receive Date: ? 10/07/2001 Provider: ?KEVIN JIMÉNEZ MD Copy to: ? Specimen/Source: ?Conventional Pap Test, Cervix/Endocervix Last Menstrual Period: ? 09/20/01 Other: ? Additional clinical information: Fibroid uterus, Regular periods ? SPECIMEN ADEQUACY ? Satisfactory for Evaluation - transformation zone component present GENERAL CATEGORIZATION ? Negative for Intraepithelial Lesion or Malignancy ? Document reviewed and electronically signed by: ? CARL Quinones(ASCP) ? Report Date: ??10/08/2001 11:12 End of Report SRINI MARTINES 10/04/2001 10/07/2001 Kevin Jiménez MD PATHOLOGY ORDERABLES SRINI MARTINES [address] [place] [address] documented in this encounter Visit Diagnoses Not on filedocumented in this encounter
--- OUTSIDE RECORDS SUMMARY | 2024-04-10 13:38 | XMS_ITS | Encounter Summary ---
Author Organization [facility] Address [address] [place] [address] Care Team Providers Care Bridal Stylist Sales Consultant Name Role Phone Jennifer Fabian ADVERTISING SPACE CLERK Primary Care Provider [phone] Encounter Details Date Type Department Care Team (Latest Contact Info) Description 12/15/2016 16:14 EDT - 12/15/2016 23:59 EDT Hospital Encounter [address] [id number] Unknown, Provider, Discharge Disposition: Home or Self Care Social History Tobacco Use Types Packs/Day Years Used Date Smoking Tobacco: Never Assessed Sex and Gender Information Value Date Recorded Sex Assigned at Not on file Gender Identity Not on file Sexual Orientation Not on file documented as of this encounter Discharge Disposition Disposition Code Departure Means Destination Home or Self Penitentiary documented in this encounter Plan of Treatment Not on file documented as of this encounter Visit Diagnoses Not on filedocumented in this encounter Care Teams Bridal Stylist Sales Consultant Relationship Specialty Start Date End Date Jennifer Fabian NP PCP - General 02/04/16 08/21/18 documented as of this encounter
--- OUTSIDE RECORDS SUMMARY | 2024-04-10 13:38 | XMS_ITS | Continuity of Care Document ---
Author Organization [facility] Address [address] [place] [id number] Care Team Providers Care Retail Warehouse Associate Name Role Phone BRIANA ABAD Primary Care Physician Encounter [id number] FIN NBR [id number] Date(s): 12/28/23 - 12/28/[address] [id number]- [place] Discharge Disposition: Home or Self Care Attending Physician: CELIA MCCULLOUGH Admitting Physician: CELIA MCCULLOUGH Referring Physician: CELIA MCCULLOUGH Results Radiology Reports * Exam Date Time Procedure Performing Provider Status 12/28/23 7:30 AM US Abdomen Limited Manuelito Agustin; Au th (Verified) Notes: (US Abdomen Limited) Reason For Exam: HCC SCREENING US Abdomen Limited EXAM DESCRIPTION: US Abdomen Limited 12/28/2023 INDICATION: HCC SCREENING TECHNIQUE: Grayscale and color Doppler ultrasound examination of the right upper quadrant region of the abdomen. COMPARISON: None FINDINGS: Liver measures 16.2 cm in maximum dimension. Diffusely increased hepatic echogenicity suggesting hepatic steatosis. No significant hepatic surface nodularity. No focal hepatic lesion identified. The main portal vein is patent with normal flow direction No ascites in the right upper quadrant The pancreas is partly obscured by overlying bowel gas. Visualized portions are unremarkable Status post cholecystectomy. No biliary dilatation with common bile duct diameter of 7.4 mm Right kidney measures 11.2 cm in maximum dimension. No focal right renal mass, hydronephrosis or perinephric fluid collection The spleen is normal in size measuring 9.1 cm in maximum dimension. IMPRESSION: Findings suggesting hepatic steatosis. No focal hepatic lesion identified Status post cholecystectomy. No biliary dilatation. JOB #: [id number] Final Signed by: Ant Bianchi MD Signed (Electronic Signature): 12/28/2023 8:21 am Patient Care team information Care Team Personnel Name: BRIANA ABAD Position: No Access Member Role: Primary Care Physician Address: Address: [address] [place] [address] Care Team Related Persons Name: CHUY THORNTON
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
--- OUTSIDE RECORDS SUMMARY | 2024-04-10 13:39 | XMS_ITS | Encounter Summary ---
Author Organization Formerly [facility] Address [facility] [place] [address] Care Team Providers Care Hat Body Sorter Name Role Phone Kerry Ascencio Primary Care Provider + Encounter Details Date Type Department Care Team (Latest Contact Info) Description 12/21/2022 Travel Social History Tobacco Use Types Packs/Day [...] 1:40 PM EDT Office Visit Cardiology at [address] [phone] Cody Martinez MD [facility] CARDIOLOGY [place] [address] 05/27/2024 11:20 AM EDT Office Visit Dermatology at [facility] [address] [place] [address] 06/13/2024 9:00 AM EDT Appointment [place] [phone] Kelly Miller, MACHINE FEEDER RAW STOCK [facility] [place]STR[place] [address] 06/13/2024 10:00 AM EDT Laboratory Appointment Lab [address] [place] [phone] 06/13/2024 11:00 AM EDT Office Visit Gastroenterology at [place] [phone] Kelly Miller MACHINE FEEDER [employer] STOCK [facility] [place]STRO[place] [address] 10/22/2024 10:30 AM EST Office Visit Weight [place] [phone] Marialuisa Peres MD [facility] [place] [address] documented as of this encounter Visit Diagnoses Not on filedocumented in this encounter Care Teams Hat Body Sorter Relationship Specialty Start Date End Date Kerry Ascencio PA [address] [place] [address] [place] [address] PCP - General Internal Medicine 01/29/21 documented as of this encounter
--- OUTSIDE RECORDS SUMMARY | 2024-04-10 13:39 | XMS_ITS | Encounter Summary ---
[place] [address] Care Team Providers Care Group Home Supervisor Name Role Phone Kerry Ascencio Primary Care Provider + Reason for Referral * Consultation (Routine) - Duplicate Referral Specialty Diagnoses / Procedures Referred By Clari dickey Referred To Contact Orthopaedics Diagnoses Sternoclavicular joint pain, unspecified laterality Angel Sears MD [address] [place] [address] [facility] [address] [place] [phone] Referral ID Status Reason Start Date Expiration Date Visits Requested Visits Authorized [id number] Duplicate Referral Consult, Test & Treat 10/05/2023 10/04/2024 6 6 Encounter Details Date Type Department Care Team (Latest Contact Info) Description 10/05/2023 Transcribe Orders eD Incoming Referrals [phone] Angel Sears MD [address] [place], [place] [address] Sternoclavicular joint pain, unspecified laterality Social History Tobacco Use Types Packs/Day Years [...] 1:40 PM EDT Office Visit Cardiology at [address] [phone] Cody Martinez MD [facility] [address] 05/27/2024 11:20 AM EDT Office Visit Dermatology at [address] [phone] 06/13/2024 9:00 AM EDT Appointment Ultrasound at [place] [phone] Kelly Miller APRN [facility] [place] [address] 06/13/2024 10:00 AM EDT Laboratory Appointment Lab [address] [phone] 06/13/2024 11:00 AM EDT Office [place] [phone] Kelly Miller CARPET MEASURER [facility] [address] 10/22/2024 10:30 AM EST Office Visit [place] [phone] Marialuisa Peres MD [facility] [place] [address] Scheduled Referrals Name Type Priority Associated Diagnoses Orde r Schedule Referral to Orthopaedics Outpatient Referral Routine Sternoclavicular joint pain, unspecified laterality Ordered: 10/05/2023 documented as of this encounter Visit Diagnoses Diagnosis Sternoclavicular joint pain, unspecified laterality documented in this encounter Care Teams Group Home Supervisor Relationship Specialty Start Date End Date Kerry Ascencio PA [address] [place] [address] [place] [address] PCP - General Internal Medicine 01/29/21 documented as of this encounter
--- OUTSIDE RECORDS SUMMARY | 2024-04-10 13:39 | XMS_ITS | Encounter Summary ---
[place] [address] Care Team Providers Care Clinical Admissions Manager Name Role Phone Kerry Ascencio Primary Care Provider + Encounter Details Date Type Department Care Team (Late st Contact Info) Description 01/15/2023 Telephone Cardiology at [address] [phone] Julissa Mason RN Social History Tobacco Use Types Packs/Day Years Used Date Smoking Tobacco: Former Cigarettes 1 1983 Smokeless Tobacco: Never Alcohol Use Standard Drinks/Week Comments Never 0 (1 standard drink = 0.6 oz pur e alcohol) Sex and Gender Information Value Date Recorded Sex Assigned at Not on file Gender Identity Not on file Sexual Orientation Not on file documented as of this encounter Miscellaneous Notes * Telephone Encounter - Julissa Mason RN - 01/15/2023 12:01 PM EDT Return call to patient. She states she had an external HR monitor applied when she went to the ED at [facility] last week. She had to take monitor off early - due to allergic reaction. Asking what she should do. Patient phone line was busy at the time of my return call so I could not leave a message. I have asked [employer] to request copy of ED note and test results as they do not seem to be in the patient record at this time. Julissa Mason RN, BSN Ambulatory Cardiology Department documented in this encounter Plan of Treatment Upcoming Encounters Date Type Department Care Team (Late st Contact Info) Description 04/28/2024 1:40 PM EDT Office Visit Cardiology at [address] [phone] Cody Martinez MD [facility] [place] [address] 05/27/2024 11:20 AM EDT Office Visit Dermatology at [address] [place] [phone] 06/13/2024 9:00 AM EDT [place] [address] Kelyl Miller APRN [facility] [place] [address] 06/13/2024 10:00 AM EDT Laboratory Appointment Lab [place] [address] 06/13/2024 11:00 AM EDT Office [place] [address] Kelly Miller APRN [facility] [place] [phone] 10/22/2024 10:30 AM EST Office Visit [place] [address] Marialuisa Peres MD [facility] [place] [address] documented as of this encounter Visit Diagnoses Not on filedocumented in this encounter Care Teams Clinical Admissions Manager Relationship Specialty Start Date End Date Kerry Ascencio PA [address] [place] [address] [place] [address] PCP - General Internal Medicine 01/29/21 documented as of this encounter
--- OUTSIDE RECORDS SUMMARY | 2024-04-10 13:39 | XMS_ITS | Encounter Summary ---
[place] [address] Care Team Providers Care Road Conductor Name Role Phone Kerry Ascencio Primary Care Provider + Reason for Referral * Consultation (Routine) - Authorized Specialty Diagnoses / Procedures Referred By Clari dickey Referred To Contact Gastroenterology Diagnoses Fatty (change of) liver, not elsewhere classified Kerry Ascencio PA [address] [place] [address] [place] [address] [facility] [place] [address] Referral ID Status Reason Start Date Expiration Date Visits Requested Visits Authorized [id number] Authorized Consult, Test & Treat PCP Updated and/or Approved 05/04/2023 05/03/2024 6 6 Encounter Details Date Type Department Care Team (Late st Contact Info) Description 05/04/2023 Transcribe Orders eDH Incoming Referrals [phone] Kerry Ascencio PA [address] [place] [address] [place] [address] Fatty (change of) liver, not elsewhere classified Social History Tobacco Use Types Packs/Day Years Used Date Smoking Tobacco: Former Cigarettes 1 10 974 - 1983 Smokeless Tobacco: Never Alcohol [...] 1:40 PM EDT Office Visit Cardiology at [address] [phone] Cody Martinez MD [facility] [place] [address] 05/27/2024 11:20 AM EDT Office Visit Dermatology at [address] [address] 06/13/2024 9:00 AM EDT Appointment Ultrasound at [place] [phone] Kelly Miller APRN [facility] [place] [address] 06/13/2024 10:00 AM EDT Laboratory Appointment Lab [address] [place] [phone] 06/13/2024 11:00 AM EDT Office Visit Gastroenterology at [place] [phone] Kelly Miller APRN [facility] [place] [address] 10/22/2024 10:30 AM EST Office Visit Weight and Wellness at [place] [phone] Marialuisa Peres MD [facility] [place] [address] Scheduled Referrals Name Type Priority Associated Diagnoses Order Schedule Referral to Gastroenterology Outpatient Referral Routine Fatty (change of) liver, not elsewhere classified Ordered: 05/04/2023 documented as of this encounter Visit Diagnoses Diagnosis Fatty (change of) liver, not elsewhere classified documented in this encounter Care Teams Road Conductor Relationship Specialty Start Date End Date Kerry Ascencio PA [address] [place] [address] [place] [address] PCP - General Internal Medicine 01/29/21 documented as of this encounter
--- OUTSIDE RECORDS SUMMARY | 2024-04-10 13:39 | XMS_ITS | Encounter Summary ---
Author Organization [facility] Address [facility] [place] [address] Care Team Providers Care Silviculture Professor Name Role Phone Kerry Ascencio Primary Care Provider + Reason for Visit * Reason Onset Date Comments Medication Refill 12/24/2023 Encounter Details Date Type Department Care Team (Late st Contact Info) Description 12/24/2023 Refill Cardiology at [address] [phone] Philippe Cardenas PA [facility] [place] [address] Medication Refill Social History Tobacco Use Types Packs/Day Years Used Date Smoking Tobacco: Former Cigarettes 1 06 17 974 1983 Smokeless Tobacco: Never Alcohol Use [...] 1:40 PM EDT Office Visit Cardiology at [address] [phone] Cody Martinez MD [facility] [place] [address] 05/27/2024 11:20 AM EDT Office Visit Dermatology at [facility] [address] [place] [address] 06/13/2024 9:00 AM EDT Appointment [place] [phone] Kelly Miller APRN [facility] [place] [address] 06/13/2024 10:00 AM EDT Laboratory Appointment Lab [address]L [place] [phone] 06/13/2024 11:00 AM EDT Office Visit [place] [phone] Kelly Miller, AMBULATORY CARE NURSE [facility] [place] [address] 10/22/2024 10:30 AM EST Office Visit Weight [place] [phone] Marialuisa Peres MD [facility] [place] [address] documented as of this encounter Visit Diagnoses Diagnosis SVT (supraventricular tachycardia) Other specified cardiac dysrhythmias documented in this encounter Care Teams Silviculture Professor Relationship Specialty Start Date End Date Kerry Ascencio PA [address] [place] [address] [place], [place] [address] PCP - General Internal Medicine 01/29/21 documented as of this encounter
--- OUTSIDE RECORDS SUMMARY | 2024-04-10 13:39 | XMS_ITS | Encounter Summary ---
Author Organization [facility] Address [facility] [place] [address] Care Team Providers Care Small Kick Press Operator Name Role Phone Kerry Ascencio Primary Care Provider + Encounter Details Date Type Department Care Team (Late st Contact Info) Description 04/17/2023 Telephone [place] [address] Janet Navarro MD [facility] [place] [address] Social History Tobacco Use Types Packs/Day Years [...] encounter Miscellaneous Notes * Telephone Encounter - Anita Segovia - 04/18/2023 9:13 AM EDT Patient has spoken with PCP and this appointment is no longer needed. Cancelled the appointment perpatient request. * Telephone Encounter - Pastora Wallace COT - 04/17/2023 5:28 PM EDT Called pt and sched urgent DOC appt with JRE on 04/19/2023 at 120pm documented in this encounter Plan of Treatment Upcoming Encounters Date Type Department Care Team (Late st Contact Info) Description 04/28/2024 1:40 PM EDT Office Visit Cardiology at [address] [phone] Cody Martinez MD [facility] [place] [address] 05/27/2024 11:20 AM EDT Office Visit Dermatology at [address] [phone] 06/13/2024 9:00 AM EDT Appointment [place] [phone] Kelly Miller MUSHROOM PICKER [facility] [place] [address] 06/13/2024 10:00 AM EDT Laboratory Appointment Lab [address] [phone] 06/13/2024 11:00 AM EDT Office Visit [place] [phone] Kelly Miller MUSHROOM PICKER [facility] [place] [address] 10/22/2024 10:30 AM EST Office Visit Weight [place] [phone] Marialuisa Peres MD [facility] [place] [address] documented as of this encounter Visit Diagnoses Not on filedocumented in this encounter Care Teams Small Kick Press Operator Relationship Specialty Start Date End Date Kerry Ascencio PA [address] [place] [address] [place] [address] PCP - General Internal Medicine 01/29/21 documented as of this encounter
--- OUTSIDE RECORDS SUMMARY | 2024-04-10 13:39 | XMS_ITS | Encounter Summary ---
Author Organization [facility] [place] [address] Care Team Providers Care Parts Remover Name Role Phone Kerry Ascencio Primary Care Provider + Encounter Details Date Type Department Care Team (Late st Contact Info) Description 10/01/2023 6:20 PM EST Ancillary Procedure [place] [phone] Cortez Ross MD [facility] [place] [address] Social History Tobacco Use Types Packs/Day Years [...] 1:40 PM EDT Office Visit Cardiology at [address] [phone] Cody Martinez MD [facility] [place] [address] 05/27/2024 11:20 AM EDT Office Visit Dermatology at [facility] [address] [place] [address] 06/13/2024 9:00 AM EDT Appointment [place] [phone] Kelly Miller APRN [facility] [place] [address] 06/13/2024 10:00 AM EDT Laboratory Appointment Lab [address] [place] [phone] 06/13/2024 11:00 AM EDT Office Visit [place] [phone] Kelly Miller APRN [facility] [place] [address] 10/22/2024 10:30 AM EST Office Visit Weight [place] [phone] Marialuisa Peres MD [facility] [place] [address] documented as of this encounter Procedures Procedure Name Priority Date/Time Associated Diagnosis Comments FILM LIBRARY STORAGE ONLY MR SHOULDER Routine 10/01/2023 6:17 PM EST documented in this encounter Results * Film Library- Storage Only MR Shoulder (10/01/2023 6:17 PM EST) Narrative [facility] - 10/01/2023 6:17 PM EST This exam is auto-finalizing. It's purpose is for storage only. Cortez Ross MD IMG FILM LIBRARY ORD ERABLES [place], [place] documented in this encounter Visit Diagnoses Not on filedocumented in this encounter Care Teams Parts Remover Relationship Specialty Start Date End Date Kerry Ascencio PA [address] [place] [address] [place] [address] PCP - General Internal Medicine 01/29/21 documented as of this encounter
--- OUTSIDE RECORDS SUMMARY | 2024-04-10 13:39 | XMS_ITS | Encounter Summary ---
Author Organization [facility] [place] [address] Care Team Providers Care Grain Oilseed Or Pasture Farm Manager Name Role Phone Kerry Ascencio Primary Care Provider + Reason for Visit * Consultation (Routine) - Authorized Specialty Diagnoses / Procedures Referred By Clari dickey Referred To Contact Gastroenterology Diagnoses Fatty (change of) liver, not elsewhere classified Kerry Ascencio PA [address] [place] [id number] [facility] [place] [address] [address] Referral ID Status Reason Start Date Expiration Date Visits Requested Visits Authorized [id number] Authorized Consult, Test & Treat PCP Updated and/or Approved 05/04/2023 05/03/2024 6 6 Encounter Details Date Type Department Care Team (Late st Contact Info) Description 05/30/2023 9:00 AM EDT Office Visit [place] [address] [facility] [place] [place] [address] Hepatic steatosis; Prediabetes; Elevated liver function tests; Hepatic fibrosis Social History Tobacco Use Types Packs/Day Years Used Date Smoking Tobacco: Former Cigarettes 1 10 1 974 1983 Smokeless Tobacco: Never Alcohol Use Standard Drinks/Week Comments Never 0 (1 standard drink = 0.6 oz pur e alcohol) Sex and Gender Information Value Date Recorded Sex Assigned at Not on file Gender Identity Not on file Sexual Orientation Not on file documented as of this encounter Last Filed Vital Signs Vital Sign Reading Time Taken Comments Blood Pressure 139/84 05/30/2023 8:49 AM EDT Pulse 66 05/30/2023 8:49 AM EDT Temperature - - Respiratory Rate - - Oxygen Saturation 97% 05/30/2023 8:49 AM EDT Inhaled Oxygen Concentration - - Weight 87.4 kg (192 lb 9.6 oz) 05/30/2023 8:49 A M EDT Height 154.9 cm (5' 1) 05/30/2023 8:49 AM EDT Body Mass Index 36.39 05/30/2023 8:49 AM EDT documented in this encounter Progress Notes * Kelly Miller APRN - 05/30/2023 9:00 AM EDT Gastroenterology and Hepatology New Patient Visit Patient: Agatha Yi : 1960 Provider: Kelly Miller APRN MSN History: Ms. Agatha Yi is 63 y.o. with a history of nonobstructive ASCVD by heart catheterization 10/2017, symptomatic SVT, hypertension, dyslipidemia, MOISES not on cpap here for initial consult for elevated lfts. Professionally done tattoos No blood transfusion No etoh for 26 years. Before that drank socially. No illicit drug history. Mother had cirrhosis-unsure of cause-potentially medications per patient. APAP-No Herbal supplements-No Diabetes-Prediabetic HTN-On diltiazem HLD-Hereditary high cholesterol-On Crestor MOISES-Has sleep apnea-doesn't have a machine right now. Thyroid disease-On synthroid No hb or reflux No dysphagia Appetite-Normal for her. Usually eats 1-2 meals a day. Doesn't eat a lot of meat. Eats rice-avoiding bc of her sugar. Likes cereal. Also, really likes pasta but trying to avoid bc of sugar issues. Has been gaining weight. Her normal weight was 155-165 pounds. Some right sided abdominal pain/cramping-not affected by bms or po intake. Pain is just there. Bowels-Constipated at her baseline. She takes a laxative once a week. Bowel movement every few days. No family hx of colon cancer. Colonoscopy-Within the last 1-2 years. On 10 yr recall. Surgical Hx: Lap CCY-15 yrs ago Hysterectomy TKR X 2 Shoulder surgery ROS: Constitutional: No unintentional weight loss, fatigue, nor fevers. CV: Denies chest pain, palpitations, dizziness, SOB Resp: No cough, no wheezing GI: As per HPI : No increase in frequency, no burning, no pain with urination Hem: No easy bruising, no swollen nodes, denies gums bleeding easily. MSK: No joint pain/swelling, no muscle pain Skin: No new rash,sores, or lesions. Neuro: No loss of strength, no headaches, or memory loss/changes. Psych: No anxiety, depression, or difficulty sleeping. 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 dilTIAZem XR (Dilacor XR) 240 mg ER (XR/XT) 24 hr capsule Take 1 capsule by mouth daily. 90 capsule3 mirabegron (Myrbetriq) 50 mg ER 24 hr tablet Take 50 mg by mouth daily. Overactive bladder. aspirin 81 mg Tablet, Chewable Take 81 mg by mouth daily. levothyroxine (Synthroid) 100 mcg Tablet 125 mcg daily. ezetimibe (Zetia) 10 mg Tablet Take 10 mg by mouth daily. nitroGLYcerin (Nitrostat) 0.4 mg Tablet, Sublingual Place 1 tablet under the tongue every 5 minutesas needed for Chest pain (may repeat x3,five minutes apart ,call 911 if chest pain remains). 30 tablet 5 celecoxib (CeleBREX) 100 mg Capsule 2 times daily. MECLIZINE HCL (MECLIZINE ORAL) Take by mouth as needed. Dose unknown cetirizine (ZYRTEC) 10 mg Tablet Take 10 mg by mouth daily. rosuvastatin (CRESTOR) 40 mg Tablet Take 40 mg by mouth daily. acyclovir (ZOVIRAX) 200 mg Capsule Take 200 mg by mouth as needed. 0 clindamycin (CLEOCIN) 150 mg Capsule Take 150 mg by mouth as needed. 0 EPIPEN 2-JAKE 0.3 mg/0.3 mL Auto-Injector Inject 1 Device as directed as needed. 0 ibuprofen (ADVIL;MOTRIN) 800 mg Tablet Take 800 mg by mouth 3 times daily as needed. 0 albuterol (PROVENTIL HFA;VENTOLIN HFA;PROAIR) 90 mcg/actuation HFA Aerosol Inhaler Inhale 2 puffs into the lungs every 4 hours as needed for Wheezing. Use with spacer citalopram (CELEXA) 20 mg tablet rizatriptan (Maxalt) 5 mg tablet Take 5 mg by mouth as needed. No current facility-administered medications for this visit. ALLERGIES/ADR Allergies Allergen Reactions Peanut Anaphylaxis Other reaction(s): Anaphylaxsis Raw Fruit Angioedema Tree Nut Anaphylaxis Other reaction(s): Anaphylaxsis Adhesive Other reaction(s): RASH AND SWELLING Alcohol Other reaction(s): RASH Gum [place] Other reaction(s): RASH Hydrocodone Other reaction(s): PRURITIS Methyl Salicylate Other reaction(s): RASH Storax Other reaction(s): RASH Tetrabenazine Other reaction(s): RASH,HIVES Amoxicillin Dog Dander Other reaction(s): WATERY EYES Milk Morphine Sulfate CIS - Nausea/Vomiting Oxycodone-Acetaminophen CIS - Nausea/Vomiting Pollen Extracts Other reaction(s): watery eyes Tetanus And Diphtheria Toxoids, Adsorbed, Adult CIS - swelling Benzoin Other reaction(s): Skin Rash Cat Dander Other reaction(s): WATERY EYES PHYSICAL EXAMINATION: Vitals: 05/30/23 0849 BP: 139/84 BP Location (NBP): Right arm Patient Position: Sitting BP Cuff Sizes: Adult (25-34 cm) Pulse: 66 SpO2: 97% Weight: 87.4 kg (192 lb 9.6 oz) Height: 154.9 cm (5' 1) Body mass index is 36.39 kg/m??. Alert, and oriented. Easily converses with this public relations writer. Comfortable wob in ra. Skin and sclera are nonicteric. No rashes on exposed skin. Normoactive bs x4. No ttp x 4. No lower extremity edema. PERTINENT LABS AND IMAGING: Lab Results Component Value Date WBC 7.6 05/30/2023 HGB 15.4 05/30/2023 HCT 46.3 (H) 05/30/2023 MCV 90.6 05/30/2023 Lab Results Component Value Date ALT 32 (H) 05/30/2023 AST 45 (H) 05/30/2023 ALKPHOS 147 (H) 05/30/2023 BILITOT 0.8 05/30/2023 Chemistry Component Value Date/Time NA 140 05/30/2023 1012 K 3.9 05/30/2023 1012 CL 103 05/30/2023 1012 CO2 26 05/30/2023 1012 BUN 10 05/30/2023 1012 CREATININE 0.82 05/30/2023 1012 Component Value Date/Time CALCIUM 9.8 05/30/2023 1012 ALKPHOS 147 (H) 05/30/2023 1012 AST 45 (H) 05/30/2023 1012 ALT 32 (H) 05/30/2023 1012 BILITOT 0.8 05/30/2023 1012 Liver Fibrosis Score (Fib 4) was 2.23 at 05/30/2023 12:46 PM Risk of Fibrosis Low Intermediate High NAFLD Less than 1.3 1.3-2.67 Greater than 2.67 Hepatitis C Less than 1.45 1.45-3.25 Greater than 3.25 Ultrasound in November of 2022-Hepatic steatosis, no views of the spleen IMPRESSION/PLAN: Agatha Yi is a 63 y.o. female with past medical hx to include, but not limited to, nonobstructive ASCVD by heart catheterization 10/2017, symptomatic SVT, hypertension, dyslipidemia, MOISES not on cpap here for initial consult for elevated lfts. Fibroscan reflective of Stage 3 Fibrosis, and fib-4 correlates with this as well. I don't see any obvious signs of cirrhosis-normal platelets, normal albumin, normal INR, us with no obvious nodular contour. Her CAP score is elevated as well. I think the most likely cause of her elevated lfts, and el evated cap score is MASH. We discussed this at length today. Discussed the most important treatmentat this time is weight loss. Would recommend at least a 10% weight loss from her current weight. For her this would be around a 20 pound weight loss over the next 6 months. She may benefit from a glp-1. I have asked her to discuss this with her PCP. She should also focus on optimizing her other metabolic risk factors-control bp, diabetes, and her thyroid as well-TSH elevated today. Labs ordered today to evaluate for any other causes of liver disease ie autoimmune, deposition disorders, etc. I will see her back in 6 months with labs prior. Repeat fibroscan in one year. We did discuss if she is not able to lose weight, control her metabolic risk factors she will likely go on to develop mash cirrhosis at some point. All questions answered. The patient was given my contact information and will call me with concerns or questions Total time spent on encounter today: Time spent reviewing records prior to this encounter: 5 minutes Time spent during encounter with patient including counselin minutes Time spent documenting encounter after office visit: 5 minutes Kelly Miller APRN MSN Section of Gastroenterology [place] [address] Cc: GENE Crews documented in this encounter Procedure Notes * Kelly Miller APRN - 05/30/2023 9:00 AM EDTAssociated Order(s): FIBROSCAN Procedure(s): FIBROSCAN Pre-Procedure Diagnose(s): Hepatic steatosis [facility] Liver Fibrosis Assessment Report Indication: Hepatic Steatosis Performed by: Kelly Miller APRN Procedure: Vibration Controlled Transient Elastography (VCTE) or Fibroscan [place] Protocol: Patient's identity, procedure and site were verified, confirmatory pause performed. Discussed procedure including risks and potential complications. Questions answered. Patient verbalizes understanding and wishes to proceed with Fibroscan assessment. Patient was placed in the supine position with right arm in maximum abduction to allow optimal exposure of right lateral abdomen. Patient was briefly assessed. Testing was performed in the mid-axillary location. 50Hz Shear Wave pulses were applied and the resulting Shear Wave and Propagation Speed was detected with a 3.5MHz ultrasonic signal, using the Fibroscan probe. Skin to liver capsule distance and liver parenchyma were accessed during the entire examination with the Fibroscan probe. Patient was instructed to breathe normally and abstain from sudden movements during the procedure. At least ten Sheer Waves were produced; individual measurements of each Shear Wave were calculated. Patient tolerated the procedure well with no complications. Fibroscan Results: Median kPa: 10.3 Mean IQR: 9% (goal is <30 %) Number of valid measurements: 11 (at least 10 required) Number of invalid measurements: 0 Predicted fibrosis stage: F3 CAP (dB/m): 387 Estimated steatosis grade: 3/3 % hepatocytes affected: >66% Interpretation: Based on this Fibroscan result, history, clinical examination and review of laboratory and radiological data, this patient likely has stage 3/4 liver fibrosis and grade 3/3 steatosis affecting >66% of hepatocytes. documented in this encounter Plan of Treatment Upcoming Encounters Date Type Department Care Team (Late st Contact Info) Description 04/28/2024 1:40 PM EDT Office Visit Cardiology at [address] [phone] [facility] [place] [address] 05/27/2024 11:20 AM EDT Office Visit Dermatology at [place] [address] [place] [address] 06/13/2024 9:00 AM EDT Appointment [place] [phone] Kelly Miller, MANAGER MARKETING [facility] [place] [address] 06/13/2024 10:00 AM EDT Laboratory Appointment Lab [address] [phone] 06/13/2024 11:00 AM EDT Office Visit [place] [phone] Kelly Miller, MANAGER MARKETING [facility] [place] [address] 10/22/2024 10:30 AM EST Office Visit Weight [place] [phone] [facility] [place] [address] documented as of this encounter Procedures Procedure Name Priority Date/Time Associated Diagnosis Comments HEMOGRAM Routine 05/30/2023 10:12 AM EDT Hepatic steatosis Prediabetes Elevated liver function tests Hepatic fibrosis DIFFERENTIAL, AUTOMATED Routine 05/30/2023 10:12 AM EDT Hepatic steatosis Prediabetes Elevated liver function tests Hepatic fibrosis HC HEPATITIS C ANTIBODY Routine 05/30/2023 10:12 AM EDT Hepatic steatosis Prediabetes Elevated liver function tests Hepatic fibrosis HC IRON BINDING CAPACITY Routine 05/30/2023 10:12 AM EDT Hepatic steatosis Prediabetes Elevated liver function tests Hepatic fibrosis HC A1AT (ALPHA-1 ANTITRYPSIN) Routine 05/30/2023 10:12 AM EDT Hepatic steatosis Prediabetes Elevated liver function tests Hepatic fibrosis HC PCH MITOCHONDRIAL ANTIBODY Routine 05/30/2023 10:12 AM EDT Hepatic steatosis Prediabetes Elevated liver function tests Hepatic fibrosis HC VENIPUNCTURE Routine 05/30/2023 10:12 AM EDT Hepatic steatosis Prediabetes Elevated liver function tests Hepatic fibrosis HC HEPATITIS B CORE AB Routine 10:12 AM EDT Hepatic steatosis Prediabetes Elevated liver function tests Hepatic fibrosis HC PCH SMOOTH MUSCLE AB, SERUM Routine 05/30/2023 10:12 AM EDT Hepatic steatosis Prediabetes Elevated liver function tests Hepatic fibrosis HC HEPATITIS B SURFACE AB Routine 05/30/2023 10:12 AM EDT Hepatic steatosis Prediabetes Elevated liver function tests Hepatic fibrosis HC HEPATITIS B SURFACE AG Routine 05/30/2023 10:12 AM EDT Hepatic steatosis Prediabetes Elevated liver function tests Hepatic fibrosis HC PROTHROMBIN TIME Routine 05/30/2023 1 0:12 AM EDT Hepatic steatosis Prediabetes Elevated liver function tests Hepatic fibrosis HC CBC,PLT & AUTO DIFF Routine 10:12 AM EDT Hepatic steatosis Prediabetes Elevated liver function tests Hepatic fibrosis HC DNA AB DS ([place]) Routine 05/30/2023 10:12 AM EDT Hepatic steatosis Prediabetes Elevated liver function tests Hepatic fibrosis HC THYROID STIMULATING HORMONE, SERUM Routine 05/30/2023 10:12 AM EDT Hepatic steatosis HC HEMOGLOBIN A1C Routine 05/30/2023 10: 12 AM EDT Hepatic steatosis Prediabetes Elevated liver function tests Hepatic fibrosis HC IGG, SERUM Routine 05/30/2023 10:12 AM EDT Hepatic steatosis Prediabetes Elevated liver function tests Hepatic fibrosis HC FERRITIN, SERUM Routine 05/30/2023 10 :12 AM EDT Hepatic steatosis Prediabetes Elevated liver function tests Hepatic fibrosis COMPREHENSIVE METABOLIC PANEL (NON-FASTING) Routine 05/30/2023 10:12 AM EDT Hepatic steatosis Prediabetes Elevated liver function tests Hepatic fibrosis [id number] Routine 05/30/2023 9:00 AM EDT Hepatic steatosis documented in this encounter Results * Prothrombin Time (12/12/2023 9:29 AM EDT) PT 12.4 9.4 - 12.5 sec [facility] INR 1.1 [facility] Comment: An INR <2.0 indicates adequate procoagulant activity for hemostasis in most patients without underlying bleeding disorders, though the INR may not adequately reflect hemostatic capacity in patients with liver disease and synthetic impairment. The recommended target INR range for therapeutic anticoagulation is 2.0 ? 3.0 for most applications, though lower and higher ranges may be appropriate depending on clinical circumstances. Blood 12/12/2023 9:29 AM EDT 12/12/2023 9:37 AM EDT Narrative Resulting Agency Comment Spec In Lab Kelly Miller MANAGER MARKETING HEMATOLOGY ORDERAB LES [facility] [place] [address] * (ABNORMAL) Comprehensive metabolic panel (non-fasting) (12/12/2023 [...] Agency Comment Spec In Lab Kelly Miller MANAGER MARKETING CHEMISTRY ORDERABL ES [facility] [place] [address] * Differential, Automated (05/30/2023 10:12 AM EDT) Neutrophils % 55.3 % [facility] Neutr Abs (ANC) 4.21 1.70 - 6.10 x10(3)/[facility] Lymphocytes % 31.8 % [facility] Lymphocytes Abs 2.4 0.9 - 3.2 x10(3)/[facility] Monocytes % 7.2 % [facility] Monocyte Abs 0.6 0.3 - 0.9 x10(3)/[facility] Eosinophils % 4.2 % [facility] Eosinophils Abs 0.3 0.0 - 0.4 x10(3)/[facility] Basophils % 1.4 % [facility] Basophils Abs 0.1 0.0 - 0.1 x10(3)/[facility] Immature Gran % 0.10 % [facility] Comment: Immature granulocytes(IG's)percentage and absolute count will include metamyelocytes, myelocytes, and promyelocytes. Blood smears from CBCs yielding IG's will be scanned manually for concordance. If this scan disagrees with the automated IG or if promyelocytes are noted, a manual differential will be performed. Larissa Gran Abs 0.01 0.00 - 0.04 x10(3)/[facility] Blood 05/30/2023 10:1 2 AM EDT 05/30/2023 10:24 AM EDT Narrative Resulting Agency Comment Spec In Lab Kelly Miller MANAGER MARKETING HEMATOLOGY ORDERAB LES [facility] [place] [address] * (ABNORMAL) Hemogram (05/30/2023 10:12 AM EDT) WBC 7.6 4.0 - 9.5 x10(3)/[facility] RBC 5.11 4.00 - 5.21 x10(6)/[facility] Hemoglobin 15.4 11.7 - 15.5 g/dL [facility] Hematocrit 46.3(H) 35.7 - 45.8 % [facility] MCV 90.6 82.6 - 94.4 fL [facility] MCH 30.1 27.1 - 32.0 pg [facility] MCHC 33.3 31.7 - 35.0 g/dL [facility] Platelets 225 145 - 357 x10(3)/[facility] RDWSD 45.2 37.0 - 46.0 [facility] RDWCV 13.4 11.5 - 14.1 % [facility] MPV 12.3 7.6 - 12.9 [facility] nRBC % Auto 0.0 % [facility] nRBC Abs Auto 0.000 0.000 - 0.000 x10(3)/[facility] Blood 05/30/2023 10:1 2 AM EDT 05/30/2023 10:24 AM EDT Narrative Resulting Agency Comment Spec In Lab Kelly Miller MANAGER MARKETING HEMATOLOGY ORDERAB LES [facility] [place] [address] * Tissue transglutaminase, IgA (05/30/2023 10:12 AM EDT) Pathologist [facility] TTG IgA Ab 0.4 <=10.0 u/ml [facility] Comment: Negative: ??<7 units/mL Indeterminate: 7-10 units/mL Positive: ??>10 units/mL Blood 05/30/2023 10:1 2 AM EDT 05/30/2023 12:19 PM EDT Narrative Resulting Agency Comment Spec In Lab Kelly Alex Paul MANAGER MARKETING IMMUNOLOGY ORDERAB LES [facility] [place] [address] * Mitochondrial Antibody, M2 (05/30/2023 10:12 AM EDT) [facility] [place] Ab <0.1 <0.1 (Negative) U [facility] Comment: Test Performed by: [facility] [place] [address] [id number] National Service Officer: Gaurang Goldman M.D. Ph.D.; CLIA# [id number] Blood 05/30/2023 10:1 2 AM EDT 05/30/2023 1:59 PM EDT Narrative Resulting Agency Comment Spec In Lab Kelly Alex Miller MANAGER MARKETING IMMUNOLOGY ORDERAB LES Performing Organization Address City/[facility]/ZIP Co de Phone Number [facility] [place] [address] * Iron and TIBC (05/30/2023 10:12 AM EDT) [facility] Iron 87 30 - 150 mcg/dL [facility] TIBC 332 250 - 450 mcg/dL [facility] Iron Saturation 26 20 - 50 % [facility] Blood 05/30/2023 10:1 2 AM EDT 05/30/2023 10:24 AM EDT Narrative Resulting Agency Comment Spec In Lab Kelly Alex Miller MANAGER MARKETING CHEMISTRY ORDERABL ES [facility] [place] [address] * IgG (05/30/2023 10:12 AM EDT) [facility] IgG 1,364 700 - 1,600 mg/dL [facility] Comment: Pediatric Reference Intervals obtained from the Caliper Reference Interval project. http://[email or web address]/caliperproject/index.html Blood 05/30/2023 10:1 2 AM EDT 05/30/2023 10:24 AM EDT Narrative Resulting Agency Comment Spec In Lab Kelly Alex Miller MANAGER MARKETING IMMUNOLOGY ORDERAB LES Performing Organization Address City/[facility]/ZIP Co de Phone Number [facility] [place] [address] * Hepatitis C Antibody (05/30/2023 10:12 AM EDT) [facility] Hepatitis C Ab Negative Negative [facility] Blood 05/30/2023 10:1 2 AM EDT 05/30/2023 10:24 AM EDT Narrative Resulting Agency Comment Spec In Lab Kelly Miller MANAGER MARKETING IMMUNOLOGY ORDERAB LES Performing Organization Address [facility]/ZIP Co de Phone Number [facility] [place] [address] * Hepatitis B Surface Antigen (05/30/2023 10:12 AM EDT) [facility] HepB Surface Ag Negative Negative [facility] Blood 05/30/2023 10:1 2 AM EDT 05/30/2023 10:24 AM EDT Narrative Resulting Agency Comment Spec In Lab Kelly Miller MANAGER MARKETING CHEMISTRY ORDERABL ES Performing Organization Address [facility] Co de Phone Number [facility] [place] [address] * Hepatitis B Surface Antibody (05/30/2023 10:12 AM EDT) [facility] HepB Surface Ab Quant <3.5 IU/L [facility] Comment: HepB Surface Ab Quant: Unvaccinated: < 8.5 IU/L Vaccinated: >= 11.5 IU/L HepB Surface Ab Negative [facility] Comment: Patient is presumed to be not vaccinated or immune to HBV infection. Expected Results: Vaccinated: Positive Unvaccinated: Negative Blood 05/30/2023 10:1 2 AM EDT 05/30/2023 10:24 AM EDT Narrative Resulting Agency Comment Spec In Lab Kelly Alex Miller MANAGER MARKETING IMMUNOLOGY ORDERAB LES Performing Organization Address City/[facility]/ZIP Co de Phone Number [facility] [place] [address] * Hepatitis B Core Antibody, Total (05/30/2023 10:12 AM EDT) Hep B Core Ab Negative Negative [facility] Blood 05/30/2023 10:1 2 AM EDT 05/30/2023 10:24 AM EDT Narrative Resulting Agency Comment Spec In Lab Kelly N Munford MANAGER MARKETING CHEMISTRY ORDERABL ES Performing Organization Address [facility] Co de Phone Number [facility] [place] [address] * Ferritin (05/30/2023 10:12 AM EDT) Ferritin 216 30 - 400 ng/mL [facility] Comment: Pediatric reference ranges not verified at [facility] interpret with caution. Reference ranges for females greater than 50 years of age approach values for men, i.e., 30-400 ng/mL. Blood 05/30/2023 10:1 2 AM EDT 05/30/2023 10:24 AM EDT Narrative Resulting Agency Comment Spec In Lab Kelly N Munford MANAGER MARKETING CHEMISTRY ORDERABL ES Performing Organization Address [facility] Co de Phone Number [facility] [place] [address] * Smooth Muscle Antibody (05/30/2023 10:12 AM EDT) Sm Muscle Ab Negative Negative [facility] Comment: Negative: No further testing will be performed ADDITIONAL INFORMATION This test was developed and its performance characteristics determined by [facility] in a manner consistent with CLIA requirements. This test has not been cleared or approved by the U.S. Food and Drug Administration. Test Performed by: [facility] [place] [address] [place] [address] National Service Officer: Gaurang Goldman M.D. Ph.D.; CLIA# [id number] Blood 05/30/2023 10:1 2 AM EDT 05/30/2023 1:59 PM EDT Narrative Resulting Agency Comment Spec In Lab Kelly Miller MANAGER MARKETING IMMUNOLOGY ORDERAB LES [facility] [place] [place] [address] * KRISTY Antibody Screen (05/30/2023 10:12 AM EDT) Antinuclear Ab Negative Negative [facility] Comment: This antinuclear antibody (KRISTY) screen is a qualitative test performed using a fluoroenzyme immunoassay on the OneSpota 250 analyzer. This screen is designed to detect antibodies to U1RNP, SS-A/Ro, SS-B/La, centromere B, Scl-70, Bria-1, and Sm(Sotelo) proteins in serum samples. Antibodies to other nuclear antibodies will not be detected with this assay. This KRISTY screen is also performed in concert with a quantitative for IgG antibodies to dsDNA. Please note that as of 07/11/2022 that this testing is performed by the [facility] at [facility]. This change in testing location is associated with a change is testing method and reference intervals. Please review the results of this test in association with the posted reference intervals. dsDNA Ab 5.7 <=15.0 IU/mL [facility] Comment: <10 negative 10-15 equivocal >15 positive This dsDNA antibody result was generated using a fluoroenzyme immunoassay on the Phadia 250 analyzer. This quantitative test is designed to detect IgG antibodies directed against double stranded DNA in human serum. The presence of antibodies that recognize dsDNA is a highly specific marker for systemic lupus erythematosus. Please note that as of 07/11/2022 that this testing is performed by the [facility] at [facility]. This change in testing location is associated with a change is testing method and reference intervals. Please review the results of this test in association with the posted reference intervals. Blood 05/30/2023 10:1 2 AM EDT 05/30/2023 12:19 PM EDT Narrative Resulting Agency Comment Spec In Lab Kelly Miller MANAGER MARKETING IMMUNOLOGY ORDERAB LES Performing Organization Address [facility]/ZIP Co de Phone Number [facility] [place] [address] * A1AT Serum Concentration (05/30/2023 10:12 AM EDT) A1AT 145 90 - 200 mg/dL [facility] Blood 05/30/2023 10:1 2 AM EDT 05/30/2023 10:24 AM EDT Narrative Resulting Agency Comment Spec In Lab Kelly Miller APRN CHEMISTRY ORDERABL ES Performing Organization Address [facility] Co de Phone Number [facility] [place] [address] * (ABNORMAL) Hemoglobin A1c (05/30/2023 10:12 AM EDT) Hemoglobin A1C 6.4(H) 4.3 - 5.6 % [facility] Comment: Reference Range: 4.3 - 5.6% 5.7 - 6.4% - Increased Risk of Developing Diabetes Mellitus >= 6.5% - Consistent with diagnosis of Diabetes Mellitus In the absence of hyperglycemia (i.e. plasma glucose > 200 mg/dL) or classic symptoms of hyperglycemia a repeat measurement of HbA1c should be performed on a separate sample to confirm the diagnosis. Diagnosis and Classification of Diabetes Mellitus, Diabetes Care 2013; 36: Suppl. 1, S67-74 Est Avg Gluc 136 mg/dL [facility] Comment: eAG equivalents for HbA1c percentages: HbA1c(%) ?eAG(mg/dL) 6.0 ?126 6.5 ?140 7.0 ?154 7.5 ?169 8.0 ?183 8.5 ?197 9.0 ?212 9.5 ?226 10.0 ? 240 Limitations: The eAG calculation has not been validated on women, individuals below 18 years old and above 70 years old, and individuals with hemoglobinopathies. Additional resources are available on the ADA website. Yeyo SHER, Iveth J, Guillermo R, et al. ??Translating the A1C assay into estimated average glucose values. ??Diabetes Care 2008:31(8):2056-4105. Blood 05/30/2023 10:1 2 AM EDT 05/30/2023 10:24 AM EDT Narrative Resulting Agency Comment Spec In Lab Kelly Miller MANAGER MARKETING CHEMISTRY ORDERABL ES [facility] [place] [address] * (ABNORMAL) Prothrombin Time (05/30/2023 10:12 AM EDT) PT 12.9(H) 9.4 - 12.5 sec [facility] INR 1.1 [facility] Comment: An INR <2.0 indicates adequate procoagulant activity for hemostasis in most patients without underlying bleeding disorders, though the INR may not adequately reflect hemostatic capacity in patients with liver disease and synthetic impairment. The recommended target INR range for therapeutic anticoagulation is 2.0 ? 3.0 for most applications, though lower and higher ranges may be appropriate depending on clinical circumstances. Blood 05/30/2023 10:1 2 AM EDT 05/30/2023 10:24 AM EDT Narrative Resulting Agency Comment Spec In Lab Kelly Miller MANAGER MARKETING HEMATOLOGY ORDERAB LES [facility] [place] [address] * (ABNORMAL) Comprehensive metabolic panel (non-fasting) (05/30/2023 10:12 AM EDT) Glucose Lvl 101 65 - 199 mg/dL [facility] Comment:Diabetes: >=200 mg/d L plus symptoms BUN 10 8 - 18 mg/dL [facility] Creatinine 0.82 0.70 - 1.20 mg/dL [facility] Sodium 140 135 - 145 mmol/L [facility] Potassium 3.9 3.5 - 5.0 mmol/L [facility] Comment: Please note: ??Patients with WBC >100,000 may have falsely elevated Potassium levels. ??For accurate Potassium quantification in these patients send serum separator tube (gold top) for subsequent determinations. ??Contact the Clinical Chemistry Laboratory if there are any questions. Chloride 103 98 - 107 mmol/L [facility] CO2 26 22 - 31 mmol/L [facility] Anion Gap 11 5 - 15 mmol/L [facility] Calcium 9.8 8.5 - 10.5 mg/dL [facility] Total Protein 8.1(H) 6.1 - 8.0 g/dL [facility] Albumin 4.5 3.2 - 5.2 g/dL [facility] AST 45(H) 0 - 30 unit/L [facility] ALT 32(H) 0 - 30 unit/L [facility] Alk Phos 147(H) 35 - 105 unit/L [facility] Total Bilirubin 0.8 0.2 - 1.3 mg/dL [facility] Estimated GFR 80 >=60 mL/min/1. 73 m?? [facility] [...] and symptoms in addition to eGFR. Blood 05/30/2023 10:1 2 AM EDT 05/30/2023 10:24 AM EDT Narrative Resulting Agency Comment Spec In Lab Kelly Miller MANAGER MARKETING CHEMISTRY ORDERABL ES Performing Organization Address [facility] Co de Phone Number [facility] [place] [address] * (ABNORMAL) TSH (05/30/2023 10:12 AM EDT) TSH 6.79(H) 0.27 - 4.20 mcIU/mL [facility] Comment: Reference Interval (mcIU/mL): Females: ??First Trimester: 0.23-3.88 ??Second Trimester: 0.22-3.90 ??Third Trimester: 0.44-4.66 Blood 05/30/2023 10:1 2 AM EDT 05/30/2023 10:24 AM EDT Narrative Resulting Agency Comment Spec In Lab Kelly Alex Miller MANAGER MARKETING CHEMISTRY ORDERABL ES Performing Organization Address City/[facility]/ZIP Co de Phone Number [facility] [place] [address] * [id number] (05/30/2023 9:00 AM EDT) Narrative Kelly Miller APRN - 05/30/2023 9:00 AM EDT Kelly Miller APRN ? 05/30/2023 ??1:21 PM [facility] Liver Fibrosis Assessment Report Indication: ?? Hepatic Steatosis Performed by: ??Kelly Miller APRN Procedure: Vibration Controlled Transient Elastography (VCTE) or Fibroscan [place] Protocol: Patient's identity, procedure and site were verified, confirmatory pause performed. Discussed procedure including risks and potential complications. Questions answered. Patient verbalizes understanding and wishes to proceed with Fibroscan assessment. Patient was placed in the supine position with right arm in maximum abduction to allow optimal exposure of right lateral abdomen. Patient was briefly assessed. Testing was performed in the mid-axillary location. 50Hz Shear Wave pulses were applied and the resulting Shear Wave and Propagation Speed was detected with a 3.5MHz ultrasonic signal, using the Fibroscan probe. Skin to liver capsule distance and liver parenchyma were accessed during the entire examination with the Fibroscan probe. Patient was instructed to breathe normally and abstain from sudden movements during the procedure. At least ten Sheer Waves were produced; individual measurements of each Shear Wave were calculated. Patient tolerated the procedure well with no complications. Fibroscan Results: Median kPa: 10.3 Mean IQR: 9% (goal is <30 %) Number of valid measurements: 11 (at least 10 required) Number of invalid measurements: 0 Predicted fibrosis stage: F3 CAP (dB/m): 387 Estimated steatosis grade: 3/3 % hepatocytes affected: >66% Interpretation: Based on this Fibroscan result, history, clinical examination and review of laboratory and radiological data, this patient likely has stage 3/4 liver fibrosis and grade 3/3 steatosis affecting >66% of hepatocytes. ?? 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
--- OUTSIDE RECORDS SUMMARY | 2024-04-10 13:39 | XMS_ITS | Encounter Summary ---
Author Organization [facility] Address [facility] [place] [address] Care Team Providers Care Hide And Skin Processing Worker Name Role Phone Kerry Ascencio Primary Care Provider + Encounter Details Date Type Department Care Team (Latest Contact Info) Description 10/07/2023 Travel Social History Tobacco Use Types Packs/Day [...] 1:40 PM EDT Office Visit Cardiology at [address] [phone] Cody Martinez MD [facility] [place] [address] 05/27/2024 11:20 AM EDT Office Visit Dermatology at [facility] [address] [place] [address] 06/13/2024 9:00 AM EDT [place]oint[place] [phone] Kelly Miller, SOCIAL SERVICES ASSISTANT [facility] [place] [address] 06/13/2024 10:00 AM EDT Laboratory Appointment Lab [address] [place] [phone] 06/13/2024 11:00 AM EDT Office Visit Gastroenterology at [place] [phone] Kelly Miller SOCIAL SERVICES ASSISTANT [facility] [place] [address] 10/22/2024 10:30 AM EST Office Visit [place] [phone] Marialuisa Peres MD [facility] [place] [address] documented as of this encounter Visit Diagnoses Not on filedocumented in this encounter Care Teams Hide And Skin Processing Worker Relationship Specialty Start Date End Date Kerry Ascencio PA [address] [place] [address] [place] [address] PCP - General Internal Medicine 01/29/21 documented as of this encounter
--- OUTSIDE RECORDS SUMMARY | 2024-04-10 13:39 | XMS_ITS | Encounter Summary ---
Author Organization [facility] Address [facility] [place] [address] Care Team Providers Care Data Processor Name Role Phone Kerry Ascencio Primary Care Provider + Reason for Visit * Reason Comments Medication Refill Encounter Details Date Type Department Care Team (Late st Contact Info) Description 12/24/2023 Refill Cardiology at [address] [phone] Philippe Cardenas PA [facility] [place] [address] Medication Refill Social History Tobacco Use Types [...] 1:40 PM EDT Office Visit Cardiology at [address] [phone] Cody Martinez MD [facility] [place] [address] 05/27/2024 11:20 AM EDT Office Visit Dermatology at [facility] [address] [place] [address] 06/13/2024 9:00 AM EDT Appointment [place] [phone] Kelly Miller APRN [facility] [place] [address] 06/13/2024 10:00 AM EDT Laboratory Appointment Lab [address] [place] [phone] 06/13/2024 11:00 AM EDT Office Visit [place] [phone] Kelly Miller, JU [facility] [place] [address] 10/22/2024 10:30 AM EST Office Visit Weight [place] [phone] Marialuisa Peres MD [facility] [place] [address] documented as of this encounter Visit Diagnoses Diagnosis SVT (supraventricular tachycardia) Other specified cardiac dysrhythmias documented in this encounter Care Teams Data Processor Relationship Specialty Start Date End Date Kerry Ascencio PA [address] [place] [address] [place] [address] PCP - General Internal Medicine 01/29/21 documented as of this encounter
--- OUTSIDE RECORDS SUMMARY | 2024-04-10 13:39 | XMS_ITS | Encounter Summary ---
Author Organization [facility] Address [facility] [place] [address] Care Team Providers Care Dental Laboratory Technology Teacher Name Role Phone Kerry Ascencio Primary Care Provider + Encounter Details Date Type Department Care Team (Latest Contact Info) Description 10/11/2023 Travel Social History Tobacco Use Types Packs/Day [...] 1:40 PM EDT Office Visit Cardiology at [address] [phone] Cody Martinez MD [facility] [place] [address] 05/27/2024 11:20 AM EDT Office Visit Dermatology at [facility] [address] [place] [address] 06/13/2024 9:00 AM EDT Appointment [place] [phone] Kelly Miller, TICKET SPECULATOR [facility] [place] [address] 06/13/2024 10:00 AM EDT Laboratory Appointment Lab [address] [place] [phone] 06/13/2024 11:00 AM EDT Office Visit Gastroenterology at [place] [phone] Kelly Miller TICKET SPECULATOR [facility] [place] [address] 10/22/2024 10:30 AM EST Office Visit Weight [place] [phone] Marialuisa Peres MD [facility] [place] [address] documented as of this encounter Visit Diagnoses Not on filedocumented in this encounter Care Teams Dental Laboratory Technology Teacher Relationship Specialty Start Date End Date Kerry Ascencio PA [address] [place] [address] [place] [address] PCP - General Internal Medicine 01/29/21 documented as of this encounter
--- OUTSIDE RECORDS SUMMARY | 2024-04-10 13:39 | XMS_ITS | Encounter Summary ---
Author Organization [facility] Address [facility] [place] [address] Care Team Providers Care Matcher Leather Parts Name Role Phone Kerry Ascencio Primary Care Provider + Encounter Details Date Type Department Care Team (Late st Contact Info) Description 10/11/2023 [place] [phone] Grace Qureshi PA [facility] [place] [address] Social History Tobacco Use Types Packs/Day Years [...] 1:40 PM EDT Office Visit Cardiology at [address] [phone] Cody Martinez MD [facility] [place] [address] 05/27/2024 11:20 AM EDT Office Visit Dermatology at [place] [address] [place] [address] 06/13/2024 9:00 AM EDT [place] [phone] Kelly Miller APRN [facility] [place] [address] 06/13/2024 10:00 AM EDT Laboratory Appointment Lab [address] [place] [phone] 06/13/2024 11:00 AM EDT Office [place] [phone] Kelly Miller, JU [facility] [place] [address] 10/22/2024 10:30 AM EST Office Visit [place] [phone] Marialuisa Peres MD [facility] [place] [address] documented as of this encounter Visit Diagnoses Not on filedocumented in this encounter Care Teams Matcher Leather Parts Relationship Specialty Start Date End Date Kerry Ascencio PA [address] [place] [address] [place] [address] PCP - General Internal Medicine 01/29/21 documented as of this encounter
--- OUTSIDE RECORDS SUMMARY | 2024-04-10 13:39 | XMS_ITS | Encounter Summary ---
Author Organization Count Includes [facility] Address [facility] [place] [address] Care Team Providers Care Straight Ruling Machine Operator Name Role Phone Kerry Ascencio Primary Care Provider + Encounter Details Date Type Department Care Team (Latest Contact Info) Description 05/30/2023 Travel Social History Tobacco Use Types Packs/Day [...] 1:40 PM EDT Office Visit Cardiology at [address] [phone] Cody Martinez MD [facility] [place] [address] 05/27/2024 11:20 AM EDT Office Visit Dermatology at [facility] [address] [place] [address] 06/13/2024 9:00 AM EDT Appointment [place] [phone] Kelly Miller, [employer] TEACHER [facility] [place] [address] 06/13/2024 10:00 AM EDT Laboratory Appointment Lab [address] [place] [phone] 06/13/2024 11:00 AM EDT Office Visit Gastroenterology at [place] [phone] Kelly Miller [employer] [facility] [place] [address] 10/22/2024 10:30 AM EST Office Visit Weight [place] [phone] Marialuisa Peres MD [facility] [place] [address] documented as of this encounter Visit Diagnoses Not on filedocumented in this encounter Care Teams Straight Ruling Machine Operator Relationship Specialty Start Date End Date Kerry Ascencio PA [address] [place] [address] [place] [address] PCP - General Internal Medicine 01/29/21 documented as of this encounter
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
--- OUTSIDE RECORDS SUMMARY | 2024-04-10 13:39 | XMS_ITS | Encounter Summary ---
[place] [address] Care Team Providers Care Corporate Coordinator Name Role Phone Kerry Ascencio Primary Care Provider + Encounter Details Date Type Department Care Team (Late st Contact Info) Description 11/21/2023 Telephone [place] [address] Pastora Menendez RN Social History Tobacco Use Types Packs/Day [...] encounter Miscellaneous Notes * Telephone Encounter - Pastora Menendez RN - 11/21/2023 4:42 PM EST Anay calls to ask if Ozempic could be prescribed for her. She recently learned that insurance might cover it if liver disease is used as the diagnosis. documented in this encounter Plan of Treatment Upcoming Encounters Date Type Department Care Team (Late st Contact Info) Description 04/28/2024 1:40 PM EDT Office Visit Cardiology at [address] [phone] Cody Martinez MD [facility] [place] [address] 05/27/2024 11:20 AM EDT Office Visit Dermatology at [address] [place] [address] 06/13/2024 9:00 AM EDT Appointment Ultrasound at [place] [phone] Kelly Miller APRN [facility] [place] [address] 06/13/2024 10:00 AM EDT Laboratory Appointment Lab [place] [phone] 06/13/2024 11:00 AM EDT Office Visit Gastroenterology at [place] [phone] Kelly Miller DOCUMENT COORDINATOR [facility] [place] [address] 10/22/2024 10:30 AM EST Office Visit Weight and Wellness at [place] [phone] Marialuisa Peres MD [facility] [place] [address] documented as of this encounter Visit Diagnoses Not on filedocumented in this encounter Care Teams Corporate Coordinator Relationship Specialty Start Date End Date Kerry Ascencio PA [address] [place] [address] [place] [address] PCP - General Internal Medicine 01/29/21 documented as of this encounter
--- OUTSIDE RECORDS SUMMARY | 2024-04-10 13:39 | XMS_ITS | Encounter Summary ---
Author Organization [facility] Address [facility] [place] [address] Care Team Providers Care 2Nd Grade Teacher Name Role Phone Kerry Ascencio Primary Care Provider + Encounter Details Date Type Department Care Team (Late st Contact Info) Description 01/18/2024 Telephone [place] [address] Zayda Tyler Social History Tobacco Use Types Packs/Day Years Used Date Smoking Tobacco: Former Cigarettes 4 1983 Smokeless Tobacco: Never Alcohol Use [...] 1:40 PM EDT Office Visit Cardiology at [address] [phone] Cody Martinez MD [facility] [place] [address] 05/27/2024 11:20 AM EDT Office Visit Dermatology at [facility] [address] [place] [phone] 06/13/2024 9:00 AM EDT Appointment [place] [address] Kelly Miller APRN [facility] [place] [address] 06/13/2024 10:00 AM EDT Laboratory Appointment Lab [address] [place] [address] 06/13/2024 11:00 AM EDT Office Visit [place] [address] Kelly Miller HUMAN PERFORMANCE CONSULTANT [facility] [place] [address] 10/22/2024 10:30 AM EST Office Visit Weight [place] [address] Marialuisa Peres MD [facility] [place] [address] documented as of this encounter Visit Diagnoses Not on filedocumented in this encounter Care Teams 2Nd Grade Teacher Relationship Specialty Start Date End Date Kerry Ascencio PA [address] [place] [address] [place] [address] PCP - General Internal Medicine 01/29/21 documented as of this encounter
--- OUTSIDE RECORDS SUMMARY | 2024-04-10 13:39 | XMS_ITS | Encounter Summary ---
Author Organization [facility] [place] [address] Care Team Providers Care Purchaser [employer]otive Parts Name Role Phone Kerry Ascencio Primary Care Provider + Encounter Details Date Type Department Care Team (Late st Contact Info) Description 03/02/2023 Ancillary Procedure [place] [address] Kerry Ascencio PA [address] [place] [address] [place], [place] [id number] Social History Tobacco Use Types Packs/Day Years Used Date Smoking Tobacco: Former Cigarettes 1 10 1 4 - 1983 Smokeless Tobacco: Never Alcohol [...] 1:40 PM EDT Office Visit Cardiology at [address] [phone] Cody Martinez MD [facility] [place] [address] 05/27/2024 11:20 AM EDT Office Visit Dermatology at [facility] [address] [place] [address] 06/13/2024 9:00 AM EDT [place] [phone] Kelly Miller APRN [facility] [place] [address] 06/13/2024 10:00 AM EDT Laboratory Appointment Lab [address] [place] [phone] 06/13/2024 11:00 AM EDT Office [place] [phone] Kelly Miller APRN [facility] [place] [address] 10/22/2024 10:30 AM EST Office Visit [place] [phone] Marialuisa Peres MD [facility] [place] [address] documented as of this encounter Procedures Procedure Name Priority Date/Time Associated Diagnosis Comments FILM LIBRARY STORAGE ONLY MR HEAD Routine 03/02/2023 12:00 AM EDT documented in this encounter Results * Film Library- Storage Only MR Head (03/02/2023 12:00 AM EDT) Narrative [facility] [place] 2] - 03/08/2023 8:52 AM EDT This exam is auto-finalizing. It's purpose is for storage only. Kerry MILLS IMFidelina FILM LIBRARY ORDERABLES [place], [place] documented in this encounter Visit Diagnoses Not on filedocumented in this encounter Care Teams Purchaser Automotive Parts Relationship Specialty Start Date End Date Kerry Ascencio PA [address] [place] [address] [place] [address] PCP - General Internal Medicine 01/29/21 documented as of this encounter
--- OUTSIDE RECORDS SUMMARY | 2024-04-10 13:39 | XMS_ITS | Encounter Summary ---
[place] [address] Care Team Providers Care Rose Grading Supervisor Name Role Phone Kerry Ascencio Primary Care Provider + Reason for Referral * Consultation (Routine) - Closed Specialty Diagnoses / Procedures Referred By Clari dickey Referred To Contact Neurology Diagnoses Vision changes Rhiannon Sheppard APRN [address] [place] [address] [facility] [address] [place] [phone] Referral ID Status Reason Start Date Expiration Date V isits Requested Visits Authorized [id number] Closed Consult, Test & Treat 03/07/2023 03/06/2024 1 1 Encounter Details Date Type Department Care Team (Late st Contact Info) Description 03/07/2023 Transcribe Orders eDH Incoming Referrals [phone] Rhiannon Sheppard APRN [address] [place] [address] Vision changes Social History Tobacco Use Types Packs/Day Years [...] PM EDT Office Visit Cardiology at [address] [phone] Cody Martinez MD [facility] [address] 05/27/2024 11:20 AM EDT Office Visit Dermatology at [place] [address] [place] [phone] 06/13/2024 9:00 AM EDT Appointment Ultrasound at [place] [phone] Kelly Miller APRN [facility] [place] [address] 06/13/2024 10:00 AM EDT Laboratory Appointment Lab [address] [phone] 06/13/2024 11:00 AM EDT Office [place] [phone] Kelly Miller APRN [facility] [place] [place] [address] 10/22/2024 10:30 AM EST Office Visit [place] [phone] Marialuisa Peres MD [facility] [place] [address] Scheduled Referrals Name Type Priority Associated Diagnoses Orde r Schedule Referral to Neurology Outpatient Referral Routine Vision changes Ordered: 03/07/2023 documented as of this encounter Visit Diagnoses Diagnosis Vision changes Unspecified visual disturbance documented in this encounter Care Teams Rose Grading Supervisor Relationship Specialty Start Date End Date Kerry Ascencio PA [address] [place] [address] [place] [address] PCP - General Internal Medicine 01/29/21 documented as of this encounter
--- OUTSIDE RECORDS SUMMARY | 2024-04-10 13:39 | XMS_ITS | Encounter Summary ---
Author Organization [facility] [place] [address] Care Team Providers Care Client Support Associate Name Role Phone Kerry Ascencio Primary Care Provider + Encounter Details Date Type Department Care Team (Late st Contact Info) Description 07/06/2023 Ancillary Procedure [place] [address] Kerry Ascencio PA [address] [place] [address] [place], [place] [id number] Social History Tobacco Use Types Packs/Day Years [...] PM EDT Office Visit Cardiology at [address] [phone] Cody Martinez MD [facility] [place] [address] 05/27/2024 11:20 AM EDT Office Visit Dermatology at [facility] [address] [place] [address] 06/13/2024 9:00 AM EDT Appointment [place] [phone] Kelly Miller APRN [facility] [address] 06/13/2024 10:00 AM EDT Laboratory Appointment Lab [address]L [place] [phone] 06/13/2024 11:00 AM EDT Office Visit [place] [phone] Kelly Miller APRN [facility] [place] [address] 10/22/2024 10:30 AM EST Office Visit Weight [place] [phone] Marialuisa Peres MD [facility] [place] [address] documented as of this encounter Procedures Procedure Name Priority Date/Time Associated Diagnosis Comments FILM LIBRARY STORAGE ONLY DX KNEE Routine 07/06/2023 12:00 AM EDT documented in this encounter Results * Film Library- Storage Only DX Knee (07/06/2023 12:00 AM EDT) Narrative [facility] - 08/23/2023 4:28 PM EST This exam is auto-finalizing. It's purpose is for storage only. Kerry MILLS IMFidelina FILM LIBRARY ORDERABLES [place], [place] documented in this encounter Visit Diagnoses Not on filedocumented in this encounter Care Teams Client Support Associate Relationship Specialty Start Date End Date Kerry Ascencio PA [address] [place] [address] [place] [address] PCP - General Internal Medicine 01/29/21 documented as of this encounter
--- OUTSIDE RECORDS SUMMARY | 2024-04-10 13:39 | XMS_ITS | Encounter Summary ---
Author Organization [facility] Address [facility] [place] [address] Care Team Providers Care Press Assistant Name Role Phone Kerry Ascencio Primary Care Provider + Encounter Details Date Type Department Care Team (Late st Contact Info) Description 04/13/2023 Telephone [place] [phone] Jorge L Minor MD [facility] [place] [address] Social History Tobacco Use Types Packs/Day Years [...] encounter Miscellaneous Notes * Telephone Encounter - Eduardo Iniguez - 04/13/2023 9:48 AM EDT Please call pt to sched w/DOC per referral note documented in this encounter Plan of Treatment Upcoming Encounters Date Type Department Care Team (Late st Contact Info) Description 04/28/2024 1:40 PM EDT Office Visit Cardiology at [address] [address] Cody Martinez MD [facility] [place] [address] 05/27/2024 11:20 AM EDT Office Visit Dermatology at [place] [address] [place] [address] 06/13/2024 9:00 AM EDT Appointment Ultrasound at [place] [phone] Kelly Miller APRN [facility] [place] [address] 06/13/2024 10:00 AM EDT Laboratory Appointment Lab [address] [address] 06/13/2024 11:00 AM EDT Office Visit Gastroenterology at [place] [phone] Kelly Miller RADIO JOURNALIST [facility] [place] [address] 10/22/2024 10:30 AM EST Office Visit Weight and Wellness at [place] [phone] Marialuisa Peres MD [facility] [address] documented as of this encounter Visit Diagnoses Not on filedocumented in this encounter Care Teams Press Assistant Relationship Specialty Start Date End Date Kerry Ascencio PA [address] [place] [address] [place] [address] PCP - General Internal Medicine 01/29/21 documented as of this encounter
--- OUTSIDE RECORDS SUMMARY | 2024-04-10 13:39 | XMS_ITS | Encounter Summary ---
Author Organization [facility] [place] [address] Care Team Providers Care Director Of Strategic Sourcing Name Role Phone Kerry Ascencio Primary Care Provider + Reason for Visit * Reason Onset Date Comments Appointment 10/11/2023 Encounter Details Date Type Department Care Team (Late st Contact Info) Description 10/11/2023 Telephone [place] [address] Cortez Ross MD [facility] [place] [address] Appointment Social History Tobacco Use Types Packs/Day Years [...] encounter Miscellaneous Notes * Telephone Encounter - Lubna More - 10/11/2023 12:29 PM EST Answered the safety questions for FLUORO GUIDED INJECTIONS IN LEFT SHOULDER, AC AND SC JOINTS and sent for batch. documented in this encounter Plan of Treatment Upcoming Encounters Date Type Department Care Team (Late st Contact Info) Description 04/28/2024 1:40 PM EDT Office Visit Cardiology at [address] [phone] Cody Martinez MD [facility] [place] [address] 05/27/2024 11:20 AM EDT Office Visit Dermatology at [address] [place] [phone] 06/13/2024 9:00 AM EDT Appointment Ultrasound at [place] [phone] Kelly Miller APRN [facility] [place] [address] 06/13/2024 10:00 AM EDT Laboratory Appointment Lab [address] [phone] 06/13/2024 11:00 AM EDT Office Visit Gastroenterology at [place] [phone] Kelly Miller WET CLEANER MACHINE [facility] [place] [address] 10/22/2024 10:30 AM EST Office Visit Weight and Wellness at [place] [phone] Marialuisa Peres MD [facility] [place] [address] documented as of this encounter Visit Diagnoses Not on filedocumented in this encounter Care Teams Director Of Strategic Sourcing Relationship Specialty Start Date End Date Kerry Ascencio PA [address] [place] [address] [place] [address] PCP - General Internal Medicine 01/29/21 documented as of this encounter
--- OUTSIDE RECORDS SUMMARY | 2024-04-10 13:39 | XMS_ITS | Encounter Summary ---
Author Organization [facility] [place] [address] Care Team Providers Care Staff Development Coordinator Rn Name Role Phone Kerry Ascencio Primary Care Provider + Encounter Details Date Type Department Care Team (Latest Contact Info) Description 12/12/2023 9:30 AM EDT Laboratory Appointment Lab [address] [phone] Hepatic steatosis; Prediabetes; Elevated liver function tests; [...] 1:40 PM EDT Office Visit Cardiology at [address] [phone] Cody Martinez MD [facility] [place] [address] 05/27/2024 11:20 AM EDT Office Visit Dermatology at [facility] [address] [place] [address] 06/13/2024 9:00 AM EDT Appointment [place] [address] Kelly Miller APRN [facility] [place] [address] 06/13/2024 10:00 AM EDT Laboratory Appointment Lab [address] [place] [address] 06/13/2024 11:00 AM EDT Office Visit [place] [phone] Kelly Miller APRN [facility] [place] [address] 10/22/2024 10:30 AM EST Office Visit Weight [place] [address] Marialuisa Peres MD [facility] [address] documented as of this encounter Procedures Procedure Name Priority Date/Time Associated Diagnosis Comments HEMOGRAM Routine 12/12/2023 9:29 AM EDT Hepatic steatosis Prediabetes Elevated liver function tests Hepatic fibrosis DIFFERENTIAL, AUTOMATED Routine 12/12/2023 9:29 AM EDT Hepatic steatosis Prediabetes Elevated liver function tests Hepatic fibrosis HC VENIPUNCTURE Routine 12/12/2023 9:29 AM EDT Hepatic steatosis Prediabetes Elevated liver function tests Hepatic fibrosis HC CBC,PLT & AUTO DIFF Routine 9:29 AM EDT Hepatic steatosis Prediabetes Elevated liver function tests Hepatic fibrosis HEMOGLOBIN A1C Routine 12/12/2023 9:29 AM EDT COMPREHENSIVE METABOLIC PANEL (NON-FASTING) Routine 12/12/2023 9:29 AM EDT Hepatic steatosis Prediabetes Elevated liver function tests Hepatic fibrosis documented in this encounter Results * (ABNORMAL) Hemoglobin A1c (12/12/2023 9:29 AM EDT) [facility] Hemoglobin A1C 6.1(H) 4.3 - 5.6 % [facility] Comment: Reference Range: 4.3 - [...] Mellitus, Diabetes Care 2013; 36: Suppl. 1, Y17-06 Est Avg Gluc 128 mg/dL [facility] Blood Venous Draw / Unknown 12/12/2023 9:29 AM EDT 12/12/2023 11:29 AM EDT Narrative Resulting Agency Comment Spec In Lab Kelly Miller ARTS AND CRAFTS INSTRUCTOR CHEMISTRY ORDERABL ES [facility] [place] [address] * (ABNORMAL) Differential, Automated (12/12/2023 9:29 AM EDT) [facility] Neutrophils % 61.9 % [facility] Neutr Abs (ANC) 4.84 1.70 - 6.10 x10(3)/mc L [facility] Lymphocytes % 28.0 % [facility] Lymphocytes Abs 2.2 0.9 - 3.2 x10(3)/mc L [facility] Monocytes % 6.1 % [facility] Monocyte Abs 0.5 0.3 - 0.9 x10(3)/mc L [facility] Eosinophils % 2.2 % [facility] Eosinophils Abs 0.2 0.0 - 0.4 x10(3)/[facility] Basophils % 0.9 % [facility] Basophils Abs 0.1 0.0 - 0.1 x10(3)/[facility] Immature Gran % 0.90 % [facility] Comment: Immature granulocytes(IG's)percentage and absolute count will include metamyelocytes, myelocytes, and promyelocytes. Blood smears from CBCs yielding IG's will be scanned manually for concordance. If this scan disagrees with the automated IG or if promyelocytes are noted, a manual differential will be performed. Larissa Gran Abs 0.07(H) 0.00 - 0.04 x10(3)/[facility] Blood 12/12/2023 9:29 AM EDT 12/12/2023 9:37 AM EDT Narrative Resulting Agency Comment Spec In Lab Kelly Miller ARTS [employer] CRAFTS INSTRUCTOR HEMATOLOGY ORDERAB LES [facility] [place] [address] * (ABNORMAL) Hemogram (12/12/2023 9:29 AM EDT) WBC 7.8 4.0 - 9.5 x10(3)/[facility] RBC 5.22(H) 4.00 - 5.21 x10(6)/[facility] Hemoglobin 16.0(H) 11.7 - 15.5 g/dL [facility] Hematocrit 46.9(H) 35.7 - 45.8 % [facility] MCV 89.8 82.6 - 94.4 fL [facility] MCH 30.7 27.1 - 32.0 pg [facility] MCHC 34.1 31.7 - 35.0 g/dL [facility] Platelets 206 145 - 357 x10(3)/[facility] RDWSD 43.8 37.0 - 46.0 fL [facility] RDWCV 13.4 11.5 - 14.1 % [facility] MPV 13.2(H) 7.6 - 12.9 fL [facility] nRBC % Auto 0.0 % [facility] nRBC Abs Auto 0.000 0.000 - 0.000 x10(3)/mcL [facility] Blood 12/12/2023 9:29 AM EDT 12/12/2023 9:37 AM EDT Narrative Resulting Agency Comment Spec In Lab Kelly Miller ARTS [employer] CRAFTS INSTRUCTOR HEMATOLOGY ORDERAB LES [facility] [place] [address] * (ABNORMAL) Comprehensive metabolic panel (non-fasting) (12/12/2023 9:29 AM EDT) Glucose Lvl 148 65 - 199 mg/dL [facility] Comment:Diabetes: >=200 mg/d L plus symptoms BUN 13 8 - 18 mg/dL [facility] Creatinine 0.89 0.70 - 1.20 mg/dL [facility] Sodium 139 135 - 145 mmol/L [facility] Potassium 4.1 3.5 - 5.0 mmol/L [facility] Comment: Please note: ??Patients with WBC >100,000 may have falsely elevated Potassium levels. ??For accurate Potassium quantification in these patients send serum separator tube (gold top) for subsequent determinations. ??Contact the Clinical Chemistry Laboratory if there are any questions. Chloride 103 98 - 107 mmol/L [facility] CO2 25 22 - 31 mmol/L [facility] Anion Gap 11 5 - 15 mmol/L [facility] Calcium 9.7 8.5 - 10.5 mg/dL [facility] Total Protein 7.8 6.1 - 8.0 g/dL [facility] Albumin 4.4 3.2 - 5.2 g/dL [facility] AST 47(H) 0 - 30 unit/L [facility] ALT 30 0 - 30 unit/L [facility] Alk Phos 148(H) 35 - 105 unit/L [facility] Total Bilirubin 0.7 0.2 - 1.3 mg/dL [facility] Estimated GFR 73 >=60 mL/min/1. 73 m?? [facility] Comment: This patient's estimated GFR [...] Agency Comment Spec In Lab Kelly Miller ARTS AND CRAFTS INSTRUCTOR CHEMISTRY ORDERABL ES [facility] [place] [address] * Prothrombin Time (12/12/2023 9:29 AM EDT) PT 12.4 9.4 - 12.5 sec [facility] INR [address] [facility] Comment: An INR <2.0 indicates [...] Agency Comment Spec In Lab Kelly Miller ARTS AND CRAFTS INSTRUCTOR HEMATOLOGY ORDERAB LES [facility] [place] [address] documented in this encounter Visit Diagnoses Diagnosis Hepatic steatosis Other chronic nonalcoholic liver disease Prediabetes Other abnormal glucose Elevated liver function tests Other abnormal blood chemistry Hepatic fibrosis Cirrhosis of liver without mention of alcohol documented in this encounter Care Teams Staff Development Coordinator Rn Relationship Specialty Start Date End Date Kerry Ascencio PA [address] [place] [address] [place] [address] PCP - General Internal Medicine 01/29/21 documented as of this encounter
--- OUTSIDE RECORDS SUMMARY | 2024-04-10 13:39 | XMS_ITS | Encounter Summary ---
Author Organization [facility] Address [facility] [place] [address] Care Team Providers Care Clean Up Supervisor Name Role Phone Kerry Ascencio Primary Care Provider + Encounter Details Date Type Department Care Team (Latest Contact Info) Description 12/25/2022 Travel Social History Tobacco Use Types Packs/Day [...] 1:40 PM EDT Office Visit Cardiology at [address] [phone] Cody Martinez MD [facility] [place] [address] 05/27/2024 11:20 AM EDT Office Visit Dermatology at [facility] [address] [place] [address] 06/13/2024 9:00 AM EDT [place] [phone] Kelly Miller, SUBSTANCE ABUSE PREVENTION COORDINATOR [facility] [place] [address] 06/13/2024 10:00 AM EDT Laboratory Appointment Lab 3L [place] [phone] 06/13/2024 11:00 AM EDT Office Visit Gastroenterology at [place] [phone] Kelly Miller SUBSTANCE ABUSE PREVENTION COORDINATOR [facility] [place] [address] 10/22/2024 10:30 AM EST Office Visit [place] [phone] Marialuisa Peres MD [facility] [place] [address] documented as of this encounter Visit Diagnoses Not on filedocumented in this encounter Care Teams Clean Up Supervisor Relationship Specialty Start Date End Date Kerry Ascencio PA [address] [place] [address] [place] [address] PCP - General Internal Medicine 01/29/21 documented as of this encounter
--- OUTSIDE RECORDS SUMMARY | 2024-04-10 13:39 | XMS_ITS | Encounter Summary ---
Author Organization [facility] [place] [address] Care Team Providers Care Scalehouse Attendant Name Role Phone Kerry Ascencio Primary Care Provider + Reason for Referral * Consultation (Routine) - Authorized Specialty Diagnoses / Procedures Referred By Clari dickey Referred To Contact Ophthalmology Diagnoses Vision changes Discomfort of right eye Papilledema Cecilia Brower APRN [facility] [address] [place] [address] [place] [address] Erwin Santoyo MD [facility] [place] [address] Referral ID Status Reason Start Date Expiration Date Visits Requested Visits Authorized [id number] Authorized Consult, Test & Treat PCP Updated and/or Approved 04/11/2023 04/10/2024 6 6 Encounter Details Date Type Department Care Team (Late st Contact Info) Description 04/11/2023 Transcribe Orders eDH Incoming Referrals [phone] Cecilia Brower APRN [facility] [address] [place] [address] [place], [place] [id number] Vision changes; Discomfort of right eye; Papilledema Social History Tobacco Use Types Packs/Day Years [...] PM EDT Office Visit Cardiology at [address] [phone] Cody Martinez MD [facility] [place] [address] 05/27/2024 11:20 AM EDT Office Visit Dermatology at [address] [address] 06/13/2024 9:00 AM EDT Appointment Ultrasound at [place] [phone] Kelly Miller APRN [facility] [place] [address] 06/13/2024 10:00 AM EDT Laboratory Appointment Lab [address] [phone] 06/13/2024 11:00 AM EDT Office Visit Gastroenterology at [place] [phone] Kelly Miller APRN [facility] [place] [address] 10/22/2024 10:30 AM EST Office Visit Weight and Wellness at [place] [phone] Marialuisa Peres MD [facility] [place] [address] Scheduled Referrals Name Type Priority Associated Diagnoses Order Schedule Referral to Ophthalmology Outpatient Referral Routine Vision changes Discomfort of right eye Papilledema Ordered: 04/11/2023 documented as of this encounter Visit Diagnoses Diagnosis Vision changes Unspecified visual disturbance Discomfort of right eye Papilledema Papilloedema, unspecified documented in this encounter Care Teams Scalehouse Attendant Relationship Specialty Start Date End Date Kerry Ascencio PA [address] [place] [address] [place] [address] PCP - General Internal Medicine 01/29/21 documented as of this encounter
--- OUTSIDE RECORDS SUMMARY | 2024-04-10 13:39 | XMS_ITS | Encounter Summary ---
Author Organization [facility] [place] [address] Care Team Providers Care Health Facilities Surveyor Name Role Phone Kerry Ascencio Primary Care Provider + Encounter Details Date Type Department Care Team (Late st Contact Info) Description 10/12/2023 Tele[place] [address] Cortez Ross MD [facility] [place] [address] Social History Tobacco Use Types Packs/Day Years [...] encounter Miscellaneous Notes * Telephone Encounter - Edna Monsalve - 10/12/2023 1:26 PM EST Answered the safety questions for LT SHOULDER CT GUIDED SC AND AC JOINT INJECTION and sent for batch. documented in this encounter Plan of Treatment Upcoming Encounters Date Type Department Care Team (Late st Contact Info) Description 04/28/2024 1:40 PM EDT Office Visit Cardiology at [address] [phone] Cody Martinez MD [facility] [address] 05/27/2024 11:20 AM EDT Office Visit Dermatology at [address] [place] [address] 06/13/2024 9:00 AM EDT Appointment Ultrasound at [place] [phone] Kelly Miller APRN [facility] [place] [address] 06/13/2024 10:00 AM EDT Laboratory Appointment Lab [address] [place] [phone] 06/13/2024 11:00 AM EDT Office [place] [address] Kelly Miller MAIL PROCESSING MACHINE OPERATOR [facility] [place] [address] 10/22/2024 10:30 AM EST Office Visit Weight and Wellness at [place] [phone] Marialuisa Peres MD [facility] [place] [address] documented as of this encounter Visit Diagnoses Not on filedocumented in this encounter Care Teams Health Facilities Surveyor Relationship Specialty Start Date End Date Kerry Ascencio PA [address] [place] [address] [place] [address] PCP - General Internal Medicine 01/29/21 documented as of this encounter
--- OUTSIDE RECORDS SUMMARY | 2024-04-10 13:39 | XMS_ITS | Encounter Summary ---
Author Organization [facility] Address [facility] [place] [address] Care Team Providers Care Citizenship Teacher Name Role Phone Kerry Ascencio Primary Care Provider + Encounter Details Date Type Department Care Team (Latest Contact Info) Description 12/12/2023 Travel Social History Tobacco Use Types Packs/Day [...] PM EDT Office Visit Cardiology at [address] [phone] Cody Martinez MD [facility] [place] [address] 05/27/2024 11:20 AM EDT Office Visit Dermatology at [facility] [address] [place] [address] 06/13/2024 9:00 AM EDT [place] [phone] Kelly Miller, DRIER TRANSFER CAR OPERATOR [facility] [place] [address] 06/13/2024 10:00 AM EDT Laboratory Appointment Lab [address] [place] [phone] 06/13/2024 11:00 AM EDT Office Visit Gastroenterology at [place] [phone] Kelly Miller DRIER TRANSFER CAR OPERATOR [facility] [place] [address] 10/22/2024 10:30 AM EST Office Visit [place] [phone] Marialuisa Peres MD [facility] [place] [address] documented as of this encounter Visit Diagnoses Not on filedocumented in this encounter Care Teams Citizenship Teacher Relationship Specialty Start Date End Date Kerry Ascencio PA [address] [place] [address] [place] [address] PCP - General Internal Medicine 01/29/21 documented as of this encounter
--- OUTSIDE RECORDS SUMMARY | 2024-04-10 13:39 | XMS_ITS | Encounter Summary ---
Author Organization [facility] [place] [address] Care Team Providers Care Equal Opportunity Representative Name Role Phone Kerry Ascencio Primary Care Provider + Reason for Referral * Consultation (Routine) - Authorized Specialty Diagnoses / Procedures Referred By Clari dickey Referred To Contact Weight and Wellness Diagnoses Prediabetes Kelly Miller APRN [facility] [place] [address] [facility] [address] Referral ID Status Reason Start Date Expiration Date Visits Requested Visits Authorized [id number] Authorized Consult, Test & Treat 12/12/2023 12/11/2024 1 1 Encounter Details Date Type Department Care Team (Latest Contact Info) Description 12/12/2023 11:00 AM EDT Office [place] [address] Kelly Miller APRN [facility] [place] [address] Prediabetes; Metabolic dysfunction-associated steatohepatitis (MASH); Hepatic fibrosis Social History Tobacco Use Types Packs/Day Years Used Date Smoking Tobacco: Former Cigarettes 1 10 1 4 1983 Smokeless Tobacco: Never Alcohol Use Standard Drinks/Week Comments Never 0 (1 standard drink = 0.6 oz pur e alcohol) Sex and Gender Information Value Date Recorded Sex Assigned at Not on file Gender Identity Not on file Sexual Orientation Not on file documented as of this encounter Last Filed Vital Signs Vital Sign Reading Time Taken Comments Blood Pressure 132/74 12/12/2023 10:41 AM EDT Pulse 68 12/12/2023 10:41 AM EDT Temperature - - Respiratory Rate - - Oxygen Saturation 97% 12/12/2023 10:41 AM EDT Inhaled Oxygen Concentration - - Weight 90.1 kg (198 lb 9.6 oz) 12/12/2023 10:41 AM EDT Height 154.9 cm (5' 1) 12/12/2023 10:41 AM EDT Body Mass Index 37.53 12/12/2023 10:41 AM EDT documented in this encounter Progress Notes * Kelly Miller APRN - 12/12/2023 11:00 AM EDT Gastroenterology and Hepatology Follow Up Visit Patient: Agatha Yi : 1960 Provider: Kelly Miller APRN MSN History: Ms. Agatha Yi is a 63 y.o. 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 Latest Reference Range & Units 05/30/23 10:12 12/12/23 09:29 Total Bilirubin 0.2 - 1.3 mg/dL 0.8 0.7 Alk Phos 35 - 105 unit/L 147 (H) 148 (H) AST 0 - 30 unit/L 45 (H) 47 (H) ALT 0 - 30 unit/L 32 (H) 30 Has had weight gain-Now 198 pounds. BMI is 37.5 Her fibroscan in the fall of 2022 showed F3 fibrosis. Her last ultrasound was one year ago. She has had no other changes in her health since last seen. No new gi symptoms to discuss. She remains off metformin despite an A1C of 6.4. Normal creatinine. Professionally done tattoos No blood transfusion No [...] headache G43.909 Obesity E66.9 SVT (supraventricular tachycardia) I47.10 MOISES (obstructive sleep apnea) G47.33 MEDICATIONS: Current Outpatient Medications Medication Sig Dispense Refill dilTIAZem XR (Dilacor XR) 240 mg ER (XR/XT) 24 hr capsule Take 1 capsule by mouth daily. 90 capsule3 rizatriptan (Maxalt) 5 mg tablet Take 5 mg by mouth as needed. mirabegron (Myrbetriq) 50 mg ER 24 hr tablet Take 50 mg by mouth daily. Overactive bladder. aspirin 81 mg Tablet, Chewable Take 81 mg by mouth daily. levothyroxine (Synthroid) 100 mcg Tablet 125 mcg daily. ezetimibe (Zetia) 10 mg Tablet Take 10 mg by mouth daily. celecoxib (CeleBREX) 100 mg Capsule 2 times [...] mouth 3 times daily as needed. 0 citalopram (CELEXA) 20 mg tablet gabapentin (Neurontin) 300 mg capsule Take 600 mg by mouth nightly. nitroGLYcerin (Nitrostat) 0.4 mg Tablet, Sublingual Place 1 tablet under the tongue every 5 minutesas needed for Chest pain (may repeat x3,five minutes apart ,call 911 if chest pain remains). (Patient not taking: Reported on 10/11/2023) 30 tablet 5 albuterol (PROVENTIL HFA;VENTOLIN HFA;PROAIR) 90 mcg/actuation HFA Aerosol Inhaler Inhale 2 puffs into the lungs every 4 hours as needed for Wheezing. Use with spacer No current facility-administered medications for this visit. ALLERGIES/ADR Allergies Allergen Reactions Peanut Anaphylaxis Other reaction(s): Anaphylaxsis Other Reaction(s): Abdominal pain Raw Fruit Angioedema Tree Nut Anaphylaxis Other reaction(s): Anaphylaxsis Adhesive Other reaction(s): RASH AND SWELLING Alcohol Other reaction(s): RASH Gum [place] Other reaction(s): RASH Hydrocodone Other reaction(s): PRURITIS Methyl Salicylate Other reaction(s): RASH Storax Other reaction(s): RASH Tetrabenazine Other reaction(s): RASH,HIVES Amoxicillin Dog Dander Other reaction(s): WATERY EYES Flu Vac [id number](36mo,Up)(Pf) Rash Milk Morphine Sulfate CIS - Nausea/Vomiting Oxycodone-Acetaminophen Itching CIS - Nausea/Vomiting Pollen Extracts Other reaction(s): watery eyes Tetanus And Diphtheria Toxoids, Adsorbed, Adult CIS - swelling Tetanus-Diphtheria Toxoids-Td Rash Benzoin Rash Other reaction(s): Skin Rash Cat Dander Other reaction(s): WATERY EYES PHYSICAL EXAMINATION: Vitals: 12/12/23 1041 BP: 132/74 Pulse: 68 SpO2: 97% Weight: 90.1 kg (198 lb 9.6 oz) Height: 154.9 cm (5' 1) Body mass index is 37.53 kg/m??. Alert, and oriented. Easily converses with this literary writer. Comfortable wob in ra. Skin and sclera are nonicteric. No rashes on exposed skin. Normoactive bs x4. No ttp x 4. No lower extremity edema. PERTINENT LABS AND IMAGING: Lab Results Component Value Date WBC 7.8 12/12/2023 HGB 16.0 (H) 12/12/2023 HCT 46.9 (H) 12/12/2023 MCV 89.8 12/12/2023 Lab Results Component Value Date ALT 30 12/12/2023 AST 47 (H) 12/12/2023 ALKPHOS 148 (H) 12/12/2023 BILITOT 0.7 12/12/2023 Chemistry Component Value Date/Time NA 139 12/12/2023 0929 K 4.1 12/12/2023 0929 CL 103 12/12/2023 0929 CO2 25 12/12/2023 0929 BUN 13 12/12/2023 0929 CREATININE 0.89 12/12/2023 0929 Component Value Date/Time CALCIUM 9.7 12/12/2023 0929 ALKPHOS 148 (H) 12/12/2023 0929 AST 47 (H) 12/12/2023 0929 ALT 30 12/12/2023 0929 BILITOT 0.7 12/12/2023 0929 Liver Fibrosis Score (Fib 4) was 2.62 at 12/12/2023 11:26 AM Risk of Fibrosis Low Intermediate High NAFLD [...] dyslipidemia, MOISES not on cpap here for follow up on MASH with stage 3 fibrosis. Since she was last seen she has gained weight. She reports she has been unable to lose. I still think she would benefit from a glp-1. We discussed starting metformin for prediabetes, and can be helpful in patients with MASH. She is willing to start metformin. Her creatinine is normal. Because her AST is higher than ALT, and she has stage 3 fibrosis will treat her like she has cirrhosis. Ultrasound ordered locally to her. We discussed the treatment of MASH is optimizing her metabolic risk factors. Will refer her to weight, and wellness as well. Continue to work with her PCP for aggressive management of her MASH risk factors. Follow up with me in 6 months with labs and us prior. The patient was given my contact information and will call me with concerns or questions Total time spent on encounter today: Time spent reviewing records prior to this encounter: 5 minutes Time spent during encounter with patient including counselin minutes Time spent documenting encounter after office visit: 5 minutes Kelly Miller APRN MSN Section of Gastroenterology [place] [address] Cc: GENE Crews documented in this encounter Plan of Treatment Upcoming Encounters Date Type Department Care Team (Late st Contact Info) Description 04/28/2024 1:40 PM EDT Office Visit Cardiology at [address] [phone] Cody Martinez MD [facility] [place] [address] 05/27/2024 11:20 AM EDT Office Visit Dermatology at [address] [phone] 06/13/2024 9:00 AM EDT [place] [address] Kelly Miller APRN [facility] [place] [address] 06/13/2024 10:00 AM EDT Laboratory Appointment Lab [address] [place] [address] 06/13/2024 11:00 AM EDT Office [place] [address] Kelly Miller APRN [facility] GASTROENTEROLOGY [place], [place] [phone] 10/22/2024 10:30 AM EST Office Visit [place] [address] Marialuisa Peres MD [facility] [place] [address] Scheduled Orders Name Type Priority Associated Diagnoses Orde r Schedule CBC (with Diff) Lab Routine Prediabetes Expected: 06/13/2024 (Approximate), Expires: 12/13/2024 Comprehensive metabolic panel (non-fasting) Lab Routine Prediabetes Expected: 06/13/2024 (Approximate), Expires: 12/13/2024 US Abdomen Limited Hepatology Protocol Imaging Routine Prediabetes Metabolic Dysfunction-Associated Steatohepatitis (Mash) Hepatic fibrosis Expected: 12/17/2023 (Approximate), Expires: 06/17/2024 CBC (with Diff) Lab Routine Prediabetes Metabolic Dysfunction-Associated Steatohepatitis (Mash) Hepatic fibrosis Expected: 06/17/2024 (Approximate), Expires: 12/17/2024 Comprehensive metabolic panel (non-fasting) Lab Routine Prediabetes Metabolic Dysfunction-Associated Steatohepatitis (Mash) Hepatic fibrosis Expected: 06/17/2024 (Approximate), Expires: 12/17/2024 Prothrombin Time Lab Routine Prediabetes Metabolic Dysfunction-Associated Steatohepatitis (Mash) Hepatic fibrosis Expected: 06/17/2024 (Approximate), Expires: 12/17/2024 AFP tumor marker Lab Routine Prediabetes Metabolic Dysfunction-Associated Steatohepatitis (Mash) Hepatic fibrosis Expected: 12/17/2023 (Approximate), Expires: 06/17/2024 US Abdomen Limited Hepatology Protocol Imaging Routine Prediabetes Metabolic Dysfunction-Associated Steatohepatitis (Mash) Hepatic fibrosis Expected: 06/17/2024 (Approximate), Expires: 12/17/2024 Scheduled Referrals Name Type Priority Associated Diagnoses Orde r Schedule Referral to [facility] Outpatient Referral Routine Prediabetes Ordered: 12/12/2023 documented as of this encounter Visit Diagnoses Diagnosis Prediabetes Other abnormal glucose Metabolic dysfunction-associated steatohepatitis (MASH) Hepatic fibrosis Cirrhosis of liver without mention of alcohol documented in this encounter Care Teams Equal Opportunity Representative Relationship Specialty Start Date End Date Kerry Ascencio PA [address] [place] [address] [place] [address] PCP - General Internal Medicine 01/29/21 documented as of this encounter
--- OUTSIDE RECORDS SUMMARY | 2024-04-10 13:39 | XMS_ITS | Encounter Summary ---
Author Organization [facility] Address [facility] [place] [address] Care Team Providers Care Conceptor Name Role Phone Kerry Ascencio Primary Care Provider + Encounter Details Date Type Department Care Team (Late st Contact Info) Description 12/06/2023 11:00 AM EDT [place] [address] Cortez Ross MD [facility] [place] [address] Social History Tobacco Use Types Packs/Day Years [...] encounter Miscellaneous Notes * Telephone Encounter - Cortez Ross MD - 12/06/2023 11:02 AM EDT Orthopedic surgery telephone note: I called this patient regarding her shoulder pain. She reports that she had a bad month of migraines and has not yet gotten her injections. She will get them rescheduled. She will call me approximately 2 months afterwards to report on how she is doing. documented in this encounter Plan of Treatment Upcoming Encounters Date Type Department Care Team (Late st Contact Info) Description 04/28/2024 1:40 PM EDT Office Visit Cardiology at [place] [phone] Cody Martinez MD [facility] DR CARDIOLOGY DEPT. [place] [phone] 05/27/2024 11:20 AM EDT Office Visit Dermatology at [address] [place] [phone] 06/13/2024 9:00 AM EDT Appointment Ultrasound at [place] [phone] Kelly Miller APRN [facility] [place] [address] 06/13/2024 10:00 AM EDT Laboratory Appointment Lab [address] [place] [address] 06/13/2024 11:00 AM EDT Office [place] [address] Kelly Miller APRN [facility] [place] [address] 10/22/2024 10:30 AM EST Office Visit [place] [address] Marialuisa Peres MD [facility] FAMILY MEDICINE [place], [place] [phone] documented as of this encounter Visit Diagnoses Not on filedocumented in this encounter Care Teams Conceptor Relationship Specialty Start Date End Date Kerry Ascencio PA [address] [place] [address] [place] [address] PCP - General Internal Medicine 01/29/21 documented as of this encounter
--- OUTSIDE RECORDS SUMMARY | 2024-04-10 13:39 | XMS_ITS | Encounter Summary ---
Author Organization [facility] [address] Care Team Providers Care Air Conditioning Manager Name Role Phone Kerry Ascencio Primary Care Provider + Reason for Referral * Consultation (Routine) - Authorized Specialty Diagnoses / Procedures Referred By Clari dickey Referred To Contact Orthopaedics Diagnoses Strain of muscle(s) and tendon(s) of the rotator cuff of left shoulder, initial encounter Angel Sears MD [address] [place] [address] Cortez Ross MD [facility] [place] [address] Referral ID Status Reason Start Date Expiration Date Visits Requested Visits Authorized [id number] Authorized Consult, Test & Treat PCP Updated and/or Approved 3 08/14/2024 6 6 Encounter Details Date Type Department Care Team (Latest Contact Info) Description 08/15/2023 Transcribe Orders eDH Incoming Referrals [phone] Angel Sears MD [address] [place], [place] [id number] Strain of muscle(s) and tendon(s) of the rotator cuff of left shoulder, initial encounter Social History Tobacco Use Types Packs/Day Years [...] PM EDT Office Visit Cardiology at [address] [phone] Cody Martinez MD [facility] CARDIOLOGY DEPT. [place] [phone] 05/27/2024 11:20 AM EDT Office Visit Dermatology at [address] [phone] 06/13/2024 9:00 AM EDT Appointment Ultrasound at [place] [phone] Kelly Miller APRN [facility] [place] [address] 06/13/2024 10:00 AM EDT Laboratory Appointment Lab [address] [place] [address] 06/13/2024 11:00 AM EDT Office Visit Gastroenterology at [place] [phone] Kelly Miller APRN [facility] [place] [address] 10/22/2024 10:30 AM EST Office Visit Weight and Wellness at [place] [phone] Marialuisa Peres MD [facility] [place] [address] Scheduled Referrals Name Type Priority Associated Diagnoses Order Schedule Referral to Orthopaedics Outpatient Referral Routine Strain of muscle(s) and tendon(s) of the rotator cuff of left shoulder, initial encounter Ordered: 08/15/2023 documented as of this encounter Visit Diagnoses Diagnosis Strain of muscle(s) and tendon(s) of the rotator cuff of left shoulder, initial encounter documented in this encounter Care Teams Air Conditioning Manager Relationship Specialty Start Date End Date Kerry Ascencio PA [address] [place] [address] [place] [address] PCP - General Internal Medicine 01/29/21 documented as of this encounter
--- OUTSIDE RECORDS SUMMARY | 2024-04-10 13:39 | XMS_ITS | Encounter Summary ---
[place] [address] Care Team Providers Care Vp Scientific Name Role Phone Kerry Ascencio Primary Care Provider + Encounter Details Date Type Department Care Team (Late st Contact Info) Description 01/10/2023 Telephone Cardiology at [address] [phone] Ally Meza, RN Social History Tobacco Use Types Packs/Day [...] encounter Miscellaneous Notes * Telephone Encounter - Ally Meza, RN - 01/10/2023 3:31 PM EDT Voice message from patient,states she is in the [facility] ED -requesting team RN contact her daughter Lelia for more information -[phone]. Telephone call to Lelia -states her mother become lightheaded yesterday,reached out to PCP and was asked to go the her local ED which she did . Lelia states all lab work and EKG testing done today has been negative for cardiac concern. Agatha will be discharged from the ED today returning for a stress test tomorrow 01/11/23. Forward to Dr Martinez as well as Philippe MILLS. documented in this encounter Plan of Treatment Upcoming Encounters Date Type Department Care Team (Late st Contact Info) Description 04/28/2024 1:40 PM EDT Office Visit Cardiology at [address] [phone] Cody Martinez MD [facility] [place] [address] 05/27/2024 11:20 AM EDT Office Visit Dermatology at [address] [phone] 06/13/2024 9:00 AM EDT [place] [address] Kelly Miller APRN [facility] [place] [address] 06/13/2024 10:00 AM EDT Laboratory Appointment Lab [place] [phone] 06/13/2024 11:00 AM EDT Office [place] [address] Kelly Miller APRN [facility] [place] [address] 10/22/2024 10:30 AM EST Office Visit [place] [address] Marialuisa Peres MD [facility] [place] [address] documented as of this encounter Visit Diagnoses Not on filedocumented in this encounter Care Teams Vp Scientific Relationship Specialty Start Date End Date Kerry Ascencio PA [address] [place] [address] [place] [address] PCP - General Internal Medicine 01/29/21 documented as of this encounter
--- OUTSIDE RECORDS SUMMARY | 2024-04-10 13:39 | XMS_ITS | Encounter Summary ---
Author Organization [facility] [place] [address] Care Team Providers Care Pay Clerk Name Role Phone Kerry Ascencio Primary Care Provider + Encounter Details Date Type Department Care Team (Late st Contact Info) Description 12/25/2022 8:30 AM EDT Tech [place] [phone] Pastora Dutta, RVT Coronary arteriosclerosis; Hypertension, unspecified type; Hyperlipidemia, unspecified hyperlipidemia type; SVT (supraventricular tachycardia); MOISES (obstructive sleep apnea); Intermittent claudication Social History Tobacco Use Types Packs/Day Years [...] 1:40 PM EDT Office Visit Cardiology at [address] [phone] Soha Irving MD [facility] [place] [address] 05/27/2024 11:20 AM EDT Office Visit Dermatology at [facility] [address] [place] [address] 06/13/2024 9:00 AM EDT [place] [phone] Kelly Miller APRN [facility] [place] [address] 06/13/2024 10:00 AM EDT Laboratory Appointment Lab [address] [place] [address] 06/13/2024 11:00 AM EDT Office [place] [phone] Kelly Miller APRN [facility] [place] [address] 10/22/2024 10:30 AM EST Office Visit [place] [address] Marialuisa Peres MD [facility] [place] [address] documented as of this encounter Procedures Procedure Name Priority Date/Time Associated Diagnosis Comments ARLEEN, LEGS, MULTIPLE LEVELS Routine 12/25/2022 8:39 AM EDT Coronary arteriosclerosis Hypertension, unspecified type Hyperlipidemia, unspecified hyperlipidemia type SVT (supraventricular tachycardia) MOISES (obstructive sleep apnea) Intermittent claudication documented in this encounter Results * ARLEEN, legs, multiple levels (12/25/2022 8:39 AM EDT) VB Text Report Department: Vascular Surgery Lab Patient: [id number] (AGATHA YI) CPT: 27707 Referring Physician: SOHA IRVING ?? Indications: ??Bilateral [...] AM EDT Soha Irving MD VASCULAR ORDERABLES VASCUBASE documented in this encounter Visit Diagnoses Diagnosis Coronary arteriosclerosis Coronary atherosclerosis of unspecified type of vessel, kashia or graft Hypertension, unspecified type Hyperlipidemia, unspecified hyperlipidemia type SVT (supraventricular tachycardia) Other specified cardiac dysrhythmias MOISES (obstructive sleep apnea) Obstructive sleep apnea (adult) (pediatric) Intermittent claudication Peripheral vascular disease, unspecified documented in this encounter Care Teams Pay Clerk Relationship Specialty Start Date End Date Kerry Ascencio PA [address] [place] [address] [place] [address] PCP - General Internal Medicine 01/29/21 documented as of this encounter
--- OUTSIDE RECORDS SUMMARY | 2024-04-10 13:39 | XMS_ITS | Encounter Summary ---
Author Organization [facility] Address [facility] [place] [address] Care Team Providers Care Lighting Fixture Installer Name Role Phone Kerry Ascencio Primary Care Provider + Encounter Details Date Type Department Care Team (Latest Contact Info) Description 10/11/2023 12:35 PM EST - 10/11/2023 11:[address] [facility] Hospital Encounter XRay at [address] [place] [address] Cortez Ross MD [facility] [place] [address] Chronic pain in left shoulder Discharge Disposition: Home Social History Tobacco Use [...] Sig Dispensed Refills Start Date End Date gabapentin (Neurontin) 300 mg capsule Take 600 [...] spacer citalopram (CELEXA) 20 mg tablet 07/19/2009 dilTIAZem XR (Dilacor XR) 240 mg ER (XR/XT) 24 hr capsule Take 1 capsule by mouth daily. 90 capsule 3 12/21/2022 12/24/2023 documented as of this encounter Plan of Treatment Upcoming Encounters Date Type Department Care Team (Late st Contact Info) Description 04/28/2024 1:40 PM EDT Office Visit Cardiology at [address] [phone] Cody Martinez MD [facility] [place] [address] 05/27/2024 11:20 AM EDT Office Visit Dermatology at [facility] [address] [place] [address] 06/13/2024 9:00 AM EDT [place] [phone] Kelly Miller APRN [facility] [place] [address] 06/13/2024 10:00 AM EDT Laboratory Appointment Lab [address] [place] [phone] 06/13/2024 11:00 AM EDT Office [place] [phone] Kelly Miller INSTITUTE DIRECTOR [facility] [place] [address] 10/22/2024 10:30 AM EST Office Visit [place] [phone] Marialuisa Peres MD [facility] [place] [address] documented as of this encounter Procedures Procedure Name Priority Date/Time Associated Diagnosis Comments XR SHOULDER LEFT Routine 10/11/2023 12:4 3 PM EST Chronic pain in left shoulder documented in this encounter Results * XR Shoulder Left [...] who have questions please contact the health medical care manager that requested your imaging first. ? Electronically signed by: Dana Alanis MD, [facility] ([phone]), at 10/12/2023 8:42 AM Narrative 10/12/2023 8:42 [...] patients who have questions please contactthe health medical care manager that requested your imaging first. Cortez Ross MD IMG DX ORDERABLES documented in this encounter Visit Diagnoses Diagnosis Chronic pain in left shoulder Pain in joint, shoulder region documented in this encounter Care Teams Lighting Fixture Installer Relationship Specialty Start Date End Date Kerry Ascencio PA [address] [place] [address] [place] [address] PCP - General Internal Medicine 01/29/21 documented as of this encounter
--- OUTSIDE RECORDS SUMMARY | 2024-04-10 13:39 | XMS_ITS | Encounter Summary ---
[place] [address] Care Team Providers Care Blind Aide Name Role Phone Kerry Ascencio Primary Care Provider + Encounter Details Date Type Department Care Team (Late st Contact Info) Description 12/28/2023 Telephone Cardiology at [address] [phone] Ally Meza, RN Social History Tobacco Use [...] Telephone Encounter - Ally Meza, RN - 12/28/2023 2:31 PM EDT Voice message from Agatha-requesting her May OV with GENE [facility] be moved up if possible. States she has noted increased shortness of breath over the last 2 months as well as noting some sharp chest pains. Return call to Agatha: 1) request she call back to cardiology scheduling ward secretary -contact # given-to be placed on a cancellation list should a sooner OV open. 2) request she return call to this RN to discuss her symptoms -contact # given. Instructed her to be seen in her local ED should her stated symptoms worsen. Ally RN documented in this encounter Plan of Treatment Upcoming Encounters Date Type Department Care Team (Late st Contact Info) Description 04/28/2024 1:40 PM EDT Office Visit Cardiology at [address] [phone] Cody Martinez MD [facility] [address] 05/27/2024 11:20 AM EDT Office Visit Dermatology at [address] [phone] 06/13/2024 9:00 AM EDT [place] [address] Kelly Miller APRN [facility] [place] [address] 06/13/2024 10:00 AM EDT Laboratory Appointment Lab [address] [address] 06/13/2024 11:00 AM EDT Office [place] [address] Kelly Miller APRN [facility] [place] [address] 10/22/2024 10:30 AM EST Office Visit Weight [place] [address] Marialuisa Peres MD [facility] [place] [address] documented as of this encounter Visit Diagnoses Not on filedocumented in this encounter Care Teams Blind Aide Relationship Specialty Start Date End Date Yasewicz, Kerry C, PA [address] [place] [address] [place] [address] PCP - General Internal Medicine 01/29/21 documented as of this encounter
--- OUTSIDE RECORDS SUMMARY | 2024-04-10 13:40 | XMS_ITS | Encounter Summary ---
Author Organization [facility] Address [facility] [place] [address] Care Team Providers Care Digital Content Specialist Name Role Phone Kerry Ascencio Primary Care Provider + Encounter Details Date Type Department Care Team (Latest Contact Info) Description 01/06/2022 9:30 AM EDT - 01/06/2022 9:32 AM EDT Hospital En[place] [address] Jackie Parra MD [facility] DI[place] [address] Abnormal finding on breast imaging Discharge Disposition: Home Social History Tobacco Use [...] Sig Dispensed Refills Start Date End Date aspirin 81 mg Tablet, Chewable Take 81 mg by mouth daily. levothyroxine (Synthroid) 100 mcg Tablet 125 mcg daily. 02/02/2021 ezetimibe (Zetia) 10 mg Tablet Take 10 mg by mouth daily. nitroGLYcerin (Nitrostat) 0.4 mg Tablet, SublingualIndications: CVD (arteriosclerotic cardiovascular disease) Place 1 tablet under [...] spacer citalopram (CELEXA) 20 mg tablet 07/19/2009 omeprazole (PriLOSEC) 40 mg Capsule, Delayed Release(E.C.) 12/14/2021 01/31/2022 Gentle Laxative, bisacodyl, 5 mg Tablet, Delayed Release (E.C.) TAKE 1 TABLET ONCE DIRECTED 12/22/2021 01/31/2022 budesonide-formoteroL (Symbicort) 160-4.5 mcg/actuation HFA Aerosol Inhaler Symbicort 160 mcg-4.5 mcg/actuation HFA aerosol inhaler INHALE 2 PUFFS BY MOUTH TWICE DAILY 01/31/2022 albuteroL 90 mcg/actuation HFA Aerosol Inhaler every 5 hours. 01/31/2022 topiramate (Topamax) 25 mg Tablet 10/24/2021 12/20/2022 dilTIAZem XR (Dilacor XR) 120 mg Capsule,Degradable Cnt Release Take 1 capsule by mouth daily. 90 capsule 3 12/21/2021 12/21/2022 Spiriva with HandiHaler 18 mcg Capsule, w/Inhalation Device INHALE 1 DOSE IN THE MORNING AFTER BREO 01/20/2021 01/31/2022 Anoro Ellipta 62.5-25 mcg/actuation Disk with Device INHALE 1 PUFF BY MOUTH IN THE MORNING 01/24/2021 01/31/2022 fluticasone-salmeterol (ADVAIR HFA) 115-21 mcg/actuation HFA Aerosol Inhaler Inhale 2 puffs into the lungs 2 times daily. 01/31/2022 topiramate (TOPAMAX) 50 mg Tablet Take 50 mg by mouth daily. 0 05/26/2016 12/20/2022 SUMAtriptan (IMITREX) 50 mg Tablet Take 50 mg by mouth as needed. 0 06/05/2016 12/20/2022 docusate sodium (COLACE) 250 mg capsule Take by mouth. 04/01/2010 01/31/2022 documented as of this encounter Plan of Treatment Upcoming Encounters Date Type Department Care Team (Late st Contact Info) Description 04/28/2024 1:40 PM EDT Office Visit Cardiology at [address] [phone] Cody Martinez MD [facility] [place] [address] 05/27/2024 11:20 AM EDT Office Visit Dermatology at [address] [phone] 06/13/2024 9:00 AM EDT [place]ointment [place] [phone] Kelly Miller APRN [facility] [place] [address] 06/13/2024 10:00 AM EDT Laboratory Appointment Lab [place] [phone] 06/13/2024 11:00 AM EDT Office Visit [place] [address] Kelly Miller APRN [facility] [place] [address] 10/22/2024 10:30 AM EST Office Visit Weight [place] [phone] Marialuisa Peres MD [facility] [place] [address] documented as of this encounter Procedures Procedure Name Priority Date/Time Associated Diagnosis Comments MAMMO US BIOPSY RIGHT Routine 01/06/2022 10:22 AM EDT Abnormal finding on breast imaging SURGICAL PATHOLOGY REPORT Routine 01/06/2022 10:11 AM EDT SPECIMEN TO PATHOLOGY Routine 01/06/2022 10:11 AM EDT documented in this encounter Results * Mammo Us Biopsy Right (01/06/2022 10:22 AM EDT) Anatomical Region Laterality Modality Breast Right Mammography Impressions 01/09/2022 3:57 PM EDT Concordant benign result RECOMMENDATION: Since I was able to nearly completely remove the lesion surgery is not indicated unless there is persistent or recurrent nipple discharge. I phoned these results and recommendations to the patient who was having phoned difficulties and therefore requested her daughter obtain these results. I discussed these results and recommendations with the daughter by phone on 01/09/2022 at 1555 hours. REVIEW PATH CONFERENCE?: No Thank you for letting us participate in the care of this patient. ??If you are a health care provider and have any questions regarding this report, please contact the number below. ??For patients who have questions please contact the health rn transitional care that requested your imaging first. ? Electronically signed by: Karen Julian MD, [facility] ([phone]), at 01/09/2022 3:57 PM Narrative 01/09/2022 3:57 PM EDT RIGHT BREAST ULTRASOUND GUIDED AUTOMATED CORE BIOPSY CLINICAL HISTORY: abnormal mammo. I reviewed the imaging. The lesion is at the right breast 9:00 radian and corresponds to a mammographically dilated duct in the right lateral breast, incorrectly labeled as 1:00 radian at the outside facility. PROCEDURAL DETAILS: Informed consent was obtained and a timeout procedure was performed per protocol. Using local anesthetic (less than 5 cc of 1% lidocaine), sterile technique, and ultrasound guidance the lesion in the right breast was localized and sampled. Multiple satisfactory core biopsy specimens were obtained using a 14-gauge automated device. A PrismTech 14G marker clip was placed. The clip was in satisfactory position both sonographically and at follow-up cranio-caudal and true lateral digital mammography. COMPLICATIONS: None. PROCEDURAL ATTESTATION: Resident: None I performed the procedure without a resident. IMAGING DIFFERENTIAL DIAGNOSIS: Papilloma, ductal carcinoma in situ PATHOLOGIC DIAGNOSIS: Intraductal papilloma, sclerosing. No evidence of atypia. Jackie Grier MD IMG MAMM O ORDERABLES * Surgical Pathology Report (01/06/2022 10:11 AM EDT) FINAL DIAGNOSIS (AP) [id number] ? Location: 3L The signing pathologist has (i) examined the relevant preparation(s) for the specimen(s) and (ii) rendered or confirmed the diagnosis(es). . 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 (see Discussion). Microcalcificat ions: ??N/A Electronically signed by: ?Laurita River DO Verified: ??01/09/2022 11:11 ??Pathologist Performed at: ??-[facility] Dept. of Pathology, [place], [place] DISCUSSION The papilloma is fragmented, present in multiple tissue cores and measures up to 0.7 cm in greatest linear dimension in a single core. No atypia or malignancy is identified. SPECIMEN(S) SUBMITTED A - RIGHT BREAST U/S BX 12G, biopsy (Multiple) CLINICAL INFORMATION Mass. Papilloma, IDC, ILC SPECIMEN PROCESSING A - Labeled/Fixativ e: Right breast US BX, formalin. Quantity/Size: Multiple, from 0.3 x 0.2 cm to 2.6 x 0.3 cm Tissue Description: Kaiser-yellow fibrofatty needle core biopsies. Sections/Proces sing: Entirely submitted in 4 cassettes labeled A1-A4. Ischemic Time: Seven minutes ??pps 01/09/2022 11:11 AM EDT [facility] 01/06/2022 10:1 1 AM EDT Karen Julian MD PATHOLOGY/CYTOLOGY ORDERABLES [facility] [place] [address] * Specimen to Pathology (01/06/2022 10:11 AM EDT) AP Specimen 01/06/2022 10:1 1 AM EDT 01/06/2022 10:11 AM EDT Narrative [facility] - 01/06/2022 10:11 AM EDT Specimen requisition ordered. ??Separate Pathology report to follow Karen Julian MD PATHOLOGY/CYTOLOGY ORDERABLES [facility] [address] documented in this encounter Visit Diagnoses Diagnosis Abnormal finding on breast imaging Other (abnormal) findings on radiological examination of breast documented in this encounter Administered Medications Inactive Administered Medications - up to 3 most recent administrations Medication Order MAR Action Action Date Dose Rate Site lidocaine (Xylocaine) 1% (10 mg/mL) injection 20 mg 20 mg, Intradermal, ONCE, 1 dose, On Sun01/06/22 at 1000, Routine Given 01/06/2022 10:00 AM EDT 20 mg documented in this encounter Care Teams Digital Content Specialist Relationship Specialty Start Date End Date Kerry Ascencio PA [address] [place] [address] [place] [address] PCP - General Internal Medicine 01/29/21 documented as of this encounter
--- OUTSIDE RECORDS SUMMARY | 2024-04-10 13:40 | XMS_ITS | Encounter Summary ---
Author Organization [facility] Address [facility] [place] [address] Care Team Providers Care Pricing Lead Name Role Phone Kerry Ascencio Primary Care Provider + Encounter Details Date Type Department Care Team (Late st Contact Info) Description 03/06/2022 Telephone [place] [address] Devin Green MD [facility] [address] Social History Tobacco Use Types Packs/Day Years [...] encounter Miscellaneous Notes * Telephone Encounter - Chanelle Calixto - 03/06/2022 1:05 PM EDT Scheduled * Telephone Encounter - Chanelle Calixto - 03/06/2022 11:13 AM EDT LM for patient to call to schedule Return in about 5 days (around 03/09/2022) with DOC for re-check (per MDT) Please schedule at 2pm if possible documented in this encounter Plan of Treatment Upcoming Encounters Date Type Department Care Team (Late st Contact Info) Description 04/28/2024 1:40 PM EDT Office Visit Cardiology at [address] [phone] Cody Martinez MD [facility] [place] [address] 05/27/2024 11:20 AM EDT Office Visit Dermatology at [address] [phone] 06/13/2024 9:00 AM EDT Appointment [place] [phone] Kelly Miller APRN [facility] [place] [address] 06/13/2024 10:00 AM EDT Laboratory Appointment Lab [place] [phone] 06/13/2024 11:00 AM EDT Office [place] [address] Kelly Miller [employer]ER [employer] [facility] [place] [address] 10/22/2024 10:30 AM EST Office Visit Weight [place] [address] Marialuisa Peres MD [facility] [place] [address] documented as of this encounter Visit Diagnoses Not on filedocumented in this encounter Care Teams Pricing Lead Relationship Specialty Start Date End Date Kerry Ascencio PA [address] [place] [address] [place] [address] PCP - General Internal Medicine 01/29/21 documented as of this encounter
--- OUTSIDE RECORDS SUMMARY | 2024-04-10 13:40 | XMS_ITS | Encounter Summary ---
Author Organization [facility] Address [facility] [place] [address] Care Team Providers Care Casework Manager Name Role Phone Kerry Ascencio Primary Care Provider + Encounter Details Date Type Department Care Team (Late st Contact Info) Description 01/09/2022 Episode Changes [place] [address] Estrada Tineo MD [facility] [address] Social History Tobacco Use Types Packs/Day Years [...] 1:40 PM EDT Office Visit Cardiology at [address] [phone] Cody Martinez MD [facility] [place] [address] 05/27/2024 11:20 AM EDT Office Visit Dermatology at [place] [address] [place] [address] 06/13/2024 9:00 AM EDT [place] [address] Kelly Miller APRN [facility] [place] [address] 06/13/2024 10:00 AM EDT Laboratory Appointment Lab [address] [place] [phone] 06/13/2024 11:00 AM EDT Office [place] [phone] Kelly Miller APRN [facility] [place] [address] 10/22/2024 10:30 AM EST Office Visit [place] [phone] Marialuisa Peres MD [facility] [place] [address] documented as of this encounter Visit Diagnoses Not on filedocumented in this encounter Care Teams Casework Manager Relationship Specialty Start Date End Date Kerry Ascencio PA [address] [place] [place] [address] [place] [address] PCP - General Internal Medicine 01/29/21 documented as of this encounter
--- OUTSIDE RECORDS SUMMARY | 2024-04-10 13:40 | XMS_ITS | Encounter Summary ---
Author Organization [facility] [place] [address] Care Team Providers Care Supervisor Joiners Name Role Phone Kerry Ascencio Primary Care Provider + Reason for Visit * Reason Onset Date Comments Other 03/31/2022 Reporting visit from [facility] Encounter Details Date Type Department Care Team (Late st Contact Info) Description 03/31/2022 Telephone [place] [address] Ant Rhoades MD [facility] [place] [address] Other (Reporting visit from [facility]) Social History Tobacco Use Types Packs/Day Years [...] encounter Miscellaneous Notes * Telephone Encounter - Kitty Hurtado - 04/06/2022 3:26 PM EDT Pt scheduled * Telephone Encounter - Conchita Mckeon COT - 04/03/2022 8:49 AM EDT Patient calling to report. Still having same symptoms tearing, pain and redness which is unchanged from visit at [facility]. Has not received notice from pharmacy regarding eye drops/change from Bromfenac to Ketorolac/still pending EAS approval. She does not feel this is urgent, just did not hear back for EAS/[place]. [facility] and she was encouraged to do so. Forwarded to EAS/[place] for call back. * Telephone Encounter - Conchita Mckeon COT - 03/31/2022 9:43 AM EDT Notes in MEDIA * Telephone Encounter - Conchita Mckeon COT - 03/31/2022 9:31 AM EDT Patient getting post op care with local eye care ([facility]) due to travel hardship.She is calling to report visit info from yesterday; notes should be pending. There is still some inflammation; IOP OD 17, VA OD 20/200, OS 20/30. Patient has not started Bromfenac as needs PA, not approved by insurance and she is wondering if Dr. Rhoades would want to prescribe something different? Currently only using PF drops. She is also, wanting to continue post op care locally, when should she be seen next? (notes not received yet) documented in this encounter Plan of Treatment Upcoming Encounters Date Type Department Care Team (Late st Contact Info) Description 04/28/2024 1:40 PM EDT Office Visit Cardiology at [address] [phone] Cody Martinez MD [facility] [address] 05/27/2024 11:20 AM EDT Office Visit Dermatology at [facility] [address] [place] [phone] 06/13/2024 9:00 AM EDT Appointment Ultrasound at [place] [phone] Kelly Miller APRN [facility] [place] [address] 06/13/2024 10:00 AM EDT Laboratory Appointment Lab [address] [phone] 06/13/2024 11:00 AM EDT Office Visit Gastroenterology at [place] [phone] Kelly Miller, JU [facility] [place] [address] 10/22/2024 10:30 AM EST Office Visit Weight and Wellness at [place] [phone] Marialuisa Peres MD [facility] [place] [address] documented as of this encounter Visit Diagnoses Not on filedocumented in this encounter Care Teams Supervisor Joiners Relationship Specialty Start Date End Date Kerry Ascencio PA [address] [place] [address] [place] [address] PCP - General Internal Medicine 01/29/21 documented as of this encounter
--- OUTSIDE RECORDS SUMMARY | 2024-04-10 13:40 | XMS_ITS | Encounter Summary ---
Author Organization [facility] Address [facility] [place] [address] Care Team Providers Care Manufacturing Specialist Name Role Phone Kerry Ascencio Primary Care Provider + Encounter Details Date Type Department Care Team (Late st Contact Info) Description 03/04/2022 Telephone [place] [address] Devin Green MD [facility] [place] [place] [address] Social History Tobacco Use Types Packs/Day Years [...] on file documented as of this encounter Progress Notes * Devin Green MD - 03/04/2022 10:14 AM EDTCalled by patient who is postop day 12 from cataract extraction in her right eye. She has had some ongoing irritation previously for the last several days and inside. But today she woke up and the right eye was very red and inflamed, she has severe pain, she has a difficult time opening the eye sheis unable to tell if the vision is blurry due to the pain. She is worried about an infection. This could represent a postoperative infection, could also be a corneal abrasion or similar. We will have her come in for evaluation. She is happy with this plan, and will plan to be here in 4B around noon. Devin Green MD PGY-2 Ophthalmology documented in this encounter Miscellaneous Notes * Telephone Encounter - Devin Green MD - 03/04/2022 10:19 AM EDT Called by patient who is postop day 12 from cataract extraction in her right eye. ??She has had some ongoing irritation previously for the last several days and inside. ??But today she woke up and the right eye was very red and inflamed, she has severe pain, she has a difficult time opening the eyeshe is unable to tell if the vision is blurry due to the pain. ??She is worried about an infection. This could represent a postoperative??infection, could also be a corneal abrasion or similar. ??We will have her come in for evaluation. ??She is happy with this plan, and will plan to be here in 4B around noon. Devin Green MD PGY-2 Ophthalmology documented in this encounter Plan of Treatment Upcoming Encounters Date Type Department Care Team (Late st Contact Info) Description 04/28/2024 1:40 PM EDT Office Visit Cardiology at [address] [phone] Cody Martinez MD [facility] [address] 05/27/2024 11:20 AM EDT Office Visit Dermatology at [facility] [address] [place] [phone] 06/13/2024 9:00 AM EDT Appointment [place] [phone] Kelly Miller, ROUTE DRIVER SALESPERSON [facility] [place] [address] 06/13/2024 10:00 AM EDT Laboratory Appointment Lab [address] [place] [address] 06/13/2024 11:00 AM EDT Office Visit Gastroenterology at [place] [phone] Kelly Miller APRN [facility] GASTROENTEROLOGY [place], [place] [phone] 10/22/2024 10:30 AM EST Office Visit Weight [place] [address] Marialuisa Peres MD [facility] [address] documented as of this encounter Visit Diagnoses Not on filedocumented in this encounter Care Teams Manufacturing Specialist Relationship Specialty Start Date End Date Kerry Ascencio PA [address] [place] [address] [place] [address] PCP - General Internal Medicine 01/29/21 documented as of this encounter
--- OUTSIDE RECORDS SUMMARY | 2024-04-10 13:40 | XMS_ITS | Encounter Summary ---
Author Organization [facility] Address [facility] [place] [address] Care Team Providers Care Electronic Controls Repairer Supervisor Name Role Phone Kerry Ascencio Primary Care Provider + Reason for Visit * Reason Comments Post Op Eye Pain Encounter Details Date Type Department Care Team (Latest Contact Info) Description 03/04/2022 Unscheduled [place] [address] Devin Green MD [facility] [place] [address] Status post cataract extraction and insertion of intraocular lens, right Social History Tobacco Use Types Packs/Day Years [...] on file documented as of this encounter Patient Instructions * Patient Instructions* Devin Green MD - 03/04/2022 1:25 PM EDT Medications: Use eye medications as instructed during your appointment. Increase prednisolone to every 2 hours while awake in the right eye. Continue vigamox until gone For non-eye medications not prescribed by the Ophthalmology (Eye) Clinic, please follow up with your PCP (primary care provider) for instructions. Dilation: Your eyes may have been dilated during your visit. Patient response to dilation varies and the duration of dilation can range from 4 to 24 hours. Be careful with visually demanding tasks until these effects have worn off. Driving: Wait until your vision has returned to normal baseline after your eye visit before driving. Changes in vision or eyes: Please call the eye clinic, , for any significant changes invision, new flashes or floaters, or eye pain. Eye safety is important: Please use eye protection during any activities in which you could injury your eyes. documented in this encounter Progress Notes * Devin Green MD - 03/04/2022 12:18 PM EDT Visual Acuity (Snellen - Linear) Right Left Dist sc 20/150 Dist cc 20/40 -2 Dist ph sc 20/100 Dist ph cc NI Correction: Glasses Assessment/Plan: Encounter Diagnosis Name Primary? Status post cataract extraction and insertion of intraocular lens, right Agatha Yi is a 61 y.o. female seen urgently with the following ophthalmic problems: POD12 S/p CE IOL right eye done 02/20/2022: Significant pain and injection, ciliary flush today. Moderate photophobia. AC cell, but no hypopyon, Va is improved from last visit. No K edema, no noted lens fragments, no vitritis, no plaque on IOL. Some mild improvement in eye pain with topical anesthetic but not persistent. IOP okay, 13 OD and 17 OS. Likely iritis flare - possibly had been undertreated with PF and worsened with taper yesterday. Plan: - Increase PF to Q2H OD - Continue using vigamox until bottle empty - Follow up in 5-6 days in 4B with DOC for re-check, sooner if needed or worsening - Return precautions discussed Cataract left eye: Visually significant. Monitor Findings and concerns discussed with Agatha and her daughter, and they expressed understanding. RTC in 5-6 days with DOC for re-check, sooner if needed or worsening -- Devin Green MD PGY-2, Ophthalmology Resident #[id number] 03/04/2022 1:17 PM I saw the patient with the following level of supervision from the attending: Oversight from Dr. Vargas. * Tiny Vargas MD - 03/04/2022 12:18 PM EDT I have discussed the patient with the resident and reviewed the resident's above history and I agree with the details as written. The assessment and plan were formulated in discussion with me and I agree with them as documented. documented in this encounter Plan of Treatment Upcoming Encounters Date Type Department Care Team (Late st Contact Info) Description 04/28/2024 1:40 PM EDT Office Visit Cardiology at [address] [phone] Cody Martinez MD [facility] [place] [address] 05/27/2024 11:20 AM EDT Office Visit Dermatology at [address] [phone] 06/13/2024 9:00 AM EDT [place] [phone] Kelly Miller APRN [facility] [place] [address] 06/13/2024 10:00 AM EDT Laboratory Appointment Lab [address] [place] [phone] 06/13/2024 11:00 AM EDT Office [place] [phone] Kelly Miller APRN [facility] [place] [address] 10/22/2024 10:30 AM EST Office Visit [place] [address] Marialuisa Peres MD [facility] [place] [address] documented as of this encounter Visit Diagnoses Diagnosis Status post cataract extraction and insertion of intraocular lens, right documented in this encounter Care Teams Electronic Controls Repairer Supervisor Relationship Specialty Start Date End Date Kerry Ascencio PA [address] [place] [address] [place] [address] PCP - General Internal Medicine 01/29/21 documented as of this encounter
--- OUTSIDE RECORDS SUMMARY | 2024-04-10 13:40 | XMS_ITS | Encounter Summary ---
Author Organization [facility] [place] [address] Care Team Providers Care Sales Promoter Name Role Phone Kerry Ascencio Primary Care Provider + Encounter Details Date Type Department Care Team (Latest Contact Info) Description 01/03/2022 10:10 AM EDT Ancillary Procedure [place] [phone] Lamar Moya APRN [facility] [address] Discharge from right nipple Social History Tobacco Use Types Packs/Day Years [...] 1:40 PM EDT Office Visit Cardiology at [address] [phone] Cody Martinez MD [facility] [place] [address] 05/27/2024 11:20 AM EDT Office Visit Dermatology at [facility] [address] [place] [phone] 06/13/2024 9:00 AM EDT Appointment [place] [phone] Kelly Miller APRN [facility] [place] [address] 06/13/2024 10:00 AM EDT Laboratory Appointment Lab [address] [place] [phone] 06/13/2024 11:00 AM EDT Office Visit [place] [phone] Kelly Miller APRN [facility] [place] [address] 10/22/2024 10:30 AM EST Office Visit Weight [place] [phone] Marialuisa Peres MD [facility] [address] documented as of this encounter Procedures Procedure Name Priority Date/Time Associated Diagnosis Comments REQUEST FOR 2ND READ MAMMO Routine 01/03/2022 10:06 AM EDT Discharge from right nipple documented in this encounter Results * Request for 2nd read Mammo (01/03/2022 10:06 AM EDT) Anatomical Region Laterality Modality SO Impressions 01/03/2022 2:52 PM EDT Right breast supra-areolar intraductal mass measuring up to 1.2 cm. BI-RADS 4: Suspicious abnormality, biopsy should be considered. RECOMMENDATION: Ultrasound-guided biopsy. Please note: The interpretation of the [facility] Breast Imaging Radiologist subspecialist may differ from the original radiologists interpretation. This is usually not due to a deficiency of the original interpreting radiologist, rather due to the greater skill level afforded by sub-specialization in the field and/or reasonable variations in interpretations. If you have a concern regarding the D-H interpretation you may contact the D Breast Cut In Worker Office at . I have personally reviewed the image(s) and the resident's interpretation and agree with the findings, Jackie Torres MD at 01/03/2022 2:52 PM Thank you for letting us participate in the care of this patient. ??If you are a health care provider and have any questions regarding this report, please contact the number below. ??For patients who have questions please contact the health child care aide that requested your imaging first. ? Narrative 01/03/2022 2:52 PM EDT INTERPRETATION OF OUTSIDE BREAST IMAGING I have been asked to consult on this patient by Lamar Moya APRN because he/she believes a review of this study may change or alter the care of this patient. STUDIES FROM: [facility] DATES: 12/13/2021, 12/27/2021 TYPE OF EXAM: Bilateral screening mammogram, ultrasound right breast CLINICAL HISTORY: Nipple discharge right breast - recommended biopsy, Yellowish discharge noted from upper outer duct on today's exam, Pt aware she will be contacted for biopsy appt (wants a Sunday); 1.2 x 0.4 x 0.5 soft tissue mass within subareolar duct with internal bloodflow seen on US at [facility]; What Modality is the exam? Ultrasound; Body Part (please add comments as necessary): Right breast; Sending Institution. ?? COMPARISONS: Multiple prior mammograms, most recent prior dated 11/01/2020 TECHNIQUE: Screening mammogram and targeted ultrasound of the right breast performed at [facility]. FINDINGS: Screening mammogram: The breasts are almost entirely fatty. No mass, asymmetries, suspicious calcifications, or architectural distortion identified within the bilateral breasts. Ultrasound right breast: Targeted ultrasound of the supra-areolar breast 4 cm from the nipple demonstrates a dilated subareolar duct with an oval circumscribed isoechoic intraductal mass with internal vascularity measuring up to 1.2 cm. Findings may reflect an intraductal papilloma versus less likely malignancy Procedure Note Jackie Parra MD - 01/03/2022 INTERPRETATION OF OUTSIDE BREAST IMAGING I have been asked to consult on this patient by Lamar Arceuse he/she believes a review of this study may change or alter the care ofthis patient. STUDIES FROM: [facility] DATES: 12/13/2021, 12/27/2021 TYPE OF EXAM: Bilateral screening mammogram, ultrasound right breast CLINICAL HISTORY: Nipple discharge right breast - recommended biopsy,Yellowish discharge noted from upper outer duct on today's exam, Pt aware she willbe contacted for biopsy appt (wants a Sunday); 1.2 x 0.4 x 0.5 soft tissuemass within subareolar duct with internal bloodflow seen on US at [facility]; WhatModality is the exam? Ultrasound; Body Part (please add comments as necessary):Right breast; Sending Institution. COMPARISONS: Multiple prior mammograms, most recent prior dated 11/01/2020 TECHNIQUE: Screening mammogram and targeted ultrasound of the rightbreast performed at [facility]. FINDINGS: Screening mammogram: The breasts are almost entirely fatty. No mass, asymmetries, suspicious calcifications, or architectural distortion identified within thebilateral breasts. Ultrasound right breast: Targeted ultrasound of the supra-areolar breast 4 cm from the nipple demonstrates a dilated subareolar duct with an oval circumscribedisoechoic intraductal mass with internal vascularity measuring up to 1.2 cm.Findings may reflect an intraductal papilloma versus less likely malignancy IMPRESSION Right breast supra-areolar intraductal mass measuring up to 1.2 cm. BI-RADS 4: Suspicious abnormality, biopsy should be considered. RECOMMENDATION: Ultrasound-guided biopsy. Please note: The interpretation of the [facility] BreastImaging Radiologist subspecialist may differ from the original radiologists interpretation. This is usually not due to a deficiency of the original interpreting radiologist, rather due to the greater skill level affordedby sub-specialization in the field and/or reasonable variations ininterpretations. If you have a concern regarding the D-H interpretation [facility] at . I have personally reviewed the image(s) and the resident's interpretationand agree with the findings, Jackie Torres MD at 01/03/2022 2:52 PM Thank you for letting us participate in the care of this patient. If youare a health care provider and have any questions regarding this report,please contact the number below. For patients who have questions please contactthe health child care aide that requested your imaging first. Lamar Moya APRN IMG OUTSIDE I NTERPRETATION ORDERABLES documented in this encounter Visit Diagnoses Diagnosis Discharge from right nipple documented in this encounter Care Teams Sales Promoter Relationship Specialty Start Date End Date Kerry Ascencio PA [address] [place] [address] [place] [address] PCP - General Internal Medicine 01/29/21 documented as of this encounter
--- OUTSIDE RECORDS SUMMARY | 2024-04-10 13:40 | XMS_ITS | Encounter Summary ---
Author Organization [facility] Address [facility] [place] [address] Care Team Providers Care Industrial Engineering Professor Name Role Phone Kerry Ascencio Primary Care Provider + Reason for Visit * Reason Comments Post Op Encounter Details Date Type Department Care Team (Late st Contact Info) Description 02/21/2022 3:45 PM EDT Office [place] [address] [place] [address] Status post cataract extraction and insertion of [...] as of this encounter Progress Notes * Ant Rhoades MD - 02/21/2022 3:45 PM EDT POD #1 S/p CE IOL right eye done 02/20/2022: Normal postoperative appearance Doing very well IOP okay Visual disturbances, longstanding Hx flashes and floaters OD. Recent hx subjective visual field cut. Examination by Neuro-ophthalmology on 10/26/2021 and Retina on 11/23/2021 did not reveal any overt medical issues. IOP good Cataract left eye: Visually significant. Monitor Plan: Continue postoperative drops right eye as prescribed Prednisolone right eye four times per day Ketorolac right eye four times per day Vigamox right eye four times per day RTC: Postoperative appointments as scheduled documented in this encounter Plan of Treatment Upcoming Encounters Date Type Department Care Team (Late st Contact Info) Description 04/28/2024 1:40 PM EDT Office Visit Cardiology at [address] [phone] Cody Martinez MD [facility] [place] [address] 05/27/2024 11:20 AM EDT Office Visit Dermatology at [address] [phone] 06/13/2024 9:00 AM EDT Appoint[place] [phone] Kelly Miller APRN [facility] [place] [address] 06/13/2024 10:00 AM EDT Laboratory Appointment Lab [address] [place] [phone] 06/13/2024 11:00 AM EDT Office [place] [phone] Kelly Miller APRN [facility] [place] [address] 10/22/2024 10:30 AM EST Office Visit [place] [phone] Marialuisa Peres MD [facility] [place] [address] documented as of this encounter Visit Diagnoses Diagnosis Status post cataract extraction and insertion of intraocular lens, right documented in this encounter Care Teams Industrial Engineering Professor Relationship Specialty Start Date End Date Kerry Ascencio PA [address] [place] [address] [place] [address] PCP - General Internal Medicine 01/29/21 documented as of this encounter
--- OUTSIDE RECORDS SUMMARY | 2024-04-10 13:40 | XMS_ITS | Encounter Summary ---
Author Organization [facility] Address [facility] [place] [address] Care Team Providers Care Wire Rope Sales Representative Name Role Phone Kerry Ascencio Primary Care Provider + Encounter Details Date Type Department Care Team (Late st Contact Info) Description 04/28/2022 Telephone Ophthalmology at [facility] [place] [address] Ant Rhoades MD [facility] [place] [address] Social History Tobacco Use Types Packs/Day Years [...] * Telephone Encounter - Kitty Hurtado - 05/09/2022 8:30 AM EDT Pt scheduled * Telephone Encounter - Kitty Hurtado - 05/04/2022 9:02 AM EDT Left message for pt to call back to schedule next appointment with [facility]. Appointment date and time held due to [facility] and testing availability - pt to call back and confirm held appointment date and time * Telephone Encounter - Kitty Hurtado - 04/28/2022 11:28 AM EDT Return in about 3 weeks (around 05/18/2022) for EPF, dilate, OCT, HVF documented in this encounter Plan of Treatment Upcoming Encounters Date Type Department Care Team (Late st Contact Info) Description 04/28/2024 1:40 PM EDT Office Visit Cardiology at [address] [phone] Cody Martinez MD [facility] [place] [address] 05/27/2024 11:20 AM EDT Office Visit Dermatology at [address] [address] 06/13/2024 9:00 AM EDT [place] [phone] Kelly Miller RETAIL RECEIVING CLERK [facility] [place] [address] 06/13/2024 10:00 AM EDT Laboratory Appointment Lab [address] [place] [phone] 06/13/2024 11:00 AM EDT Office [place] [phone] Kelly Miller RETAIL RECEIVING CLERK [facility] [place] [address] 10/22/2024 10:30 AM EST Office Visit [place] [address] Marialuisa Peres MD [facility] [place] [address] documented as of this encounter Visit Diagnoses Not on filedocumented in this encounter Care Teams Wire Rope Sales Representative Relationship Specialty Start Date End Date Kerry Ascencio PA [address] [place] [address] [place] [address] PCP - General Internal Medicine 01/29/21 documented as of this encounter
--- OUTSIDE RECORDS SUMMARY | 2024-04-10 13:40 | XMS_ITS | Encounter Summary ---
Author Organization [facility] [place] [address] Care Team Providers Care Casing Tester Name Role Phone Kerry Ascencio Primary Care Provider + Reason for Visit * Consultation (Routine) - Closed Specialty Diagnoses / Procedures Referred By Clari dickey Referred To Contact Hematology and Oncology Diagnoses Mammogram abnormal Kerry Ascencio PA [address] [place] [address] [place] [address] [facility] Hem Onc [address] [place] [address] Referral ID Status Reason Start Date Expiration Date Visits Re quested Visits Authorized [id number] Closed 12/27/2021 12/27/2022 1 1 Encounter Details Date Type Department Care Team (Late st Contact Info) Description 01/03/2022 9:00 AM EDT Office [place] [phone] Lamar Moya APRN [facility] [place] [address] Discharge from right nipple Social History Tobacco [...] as of this encounter Progress Notes * Lamar Moya, PROPERTY DEVELOPER - 01/03/2022 9:00 AM EDT Images from the original note were not included. Patient ID: Agatha Yi is a 61 y.o. female who is seen at the request of GENE Colbert for evaluation of right nipple discharge. HPI: Anay had a screening mammogram at [facility] on 12/13/21 that was interpreted as BIRADS Category 1 with scattered areas of fibroglandular density. She returned on 12/27/21 for diagnostic imaging due to right sided nipple discharge. A right breast US at that time noted a 1.2 x 0.4 x 0.5 cm soft tissue mass within a supra-areolar duct with internal blood flow, BIRADS Category 4. A biopsy and/or MRI wasrecommended. At today's visit, Anay denies any skin changes, new breast masses, breast trauma, or prior breast surgery. She first noticed right sided nipple discharge after her mammogram last year. It recurred again after this year's mammogram, and is now spontaneous and enough to sometimes soak through her bra or shirt. She thinks it is clear to yellow, and denies bloody nipple discharge. No nipple discharge or pain in the left breast. She denies any headaches, new chest pain or difficulty breathing. No newbony pain or tenderness. Recent weight gain of 8 lbs. She has no new or concerning complaints of fatigue, cardiovascular, or respiratory symptoms. All other ROS are negative. Breast Cancer Risk Factors: History Age at delivery of first child 17 yo Breast fed No Menarche age 12 yo LMP Hysterectomy with unilateral oophorectomy - benign Hormonal contraceptive use: Yes Hormone replacement therapy No Family history of breast cancer MA Family history of ovarian cancer No Known genetic mutation Not tested Ashkenazi Sabianism heritage? No Previous breast biopsy? No Previous radiation to chest? No Family History Problem (# of Occurrences) Relation (Name,Age of Onset) Angioedema (1) Father Cancer (1) Brother (Rodrigo) Cataracts (3) Mother, Father, Brother (Rodrigo) Chronic Obstructive Pulmonary Disease (1) Mother Eczema (1) Other Heart Disease (2) Mother, Father Hypertension (3) Mother, Father, Brother (Rodrigo) Urticaria (1) Other Negative family history of: Glaucoma, Retinal Detachment, Strabismus, Thyroid Disease, Amblyopia, Diabetes Social Hx: Anay babysits her grandchildren a couple of days per week. She states she does not exercise due to arthritis symptoms. She has a distant history of smoking; ETOH - none. Past Medical Hx: GERD, HTN, hyperlipidemia, CAD, hypothyroidism Past Surgical Hx: Hysterectomy Physical Exam: General appearance: Alert, well-developed, well-nourished; in no acute distress. Skin: Warm and dry. Head: Normocephalic, atraumatic. Neck: Soft and supple without masses or cervical adenopathy. Cardiovascular: Normal rate, regular rhythm and normal heart sounds. No murmur heard. Pulmonary: Effort normal and breath sounds normal. No respiratory distress, cough, or wheezing. Breasts: The breasts were examined in the upright and supine position. Both breasts appear normal. No suspicious masses, tenderness, dimpling, erythema, or other skin changes in either breast. On manual exam of the right breast, there is a drop of clear yellow discharge when palpating the upper outer quadrant. No nipple discharge or other nipple changes on the left. No palpable axillary lymph nodes bilaterally. The nipples are everted. I feel no obvious discrete or dominant masses in either breast. Musculoskeletal: Full ROM in upper extremities without lymphedema. Neurological: Alert and oriented x 4. Mood is euthymic and appropriate to the situation. Assessment: Clinical breast exam notable for nipple discharge from the right nipple, most likely related to intraductal papilloma. Plan: 1. Discharge from right nipple - Request for 2nd read Mammo - Biopsy scheduled for 01/06/2022 We discussed causes of nipple discharge to include normal physiologic changes in the breast, intraductal papillomas, duct ectasia, pituitary adenomas, thyroid dysfunction, cancer, or related to medication. We discussed how intraductal papillomas typically cause a large volume clear fluid or bloody fluid that is easily expressed. We discussed the radiologist's recommendations from [facility] to include a biopsy or MRI. I let her knowthat there was a possibility of still needing a biopsy even after an MRI, so recommended just proceeding with a biopsy. I suggested they follow radiology recommendations a this time. Surgical follow up will be based on outcome of imaging. She agreed with the plan. Intraductal papillomas are not concerning in and of themselves, but they can harbor areas of atypiaor ductal carcinoma in situ (DCIS). Papillomas can occur as solitary or multiple lesions. Solitary intraductal papillomas may be identified as a mass on a mammogram, ultrasound, or magnetic resonanceimaging (MRI), or they can be found incidentally. Nipple discharge, particularly bloody nipple discharge, is a frequent clinical presentation. When a core biopsy demonstrates papilloma with atypical cells, surgical excision is warranted. Papillary lesions with atypia are upgraded pathologically up to 67 percent of the time. After excision, if there is no upgrading beyond atypia, a discussion about endocrine therapy for breast cancer prevention is indicated. The data surrounding solitary papillomas without evidence of atypia are less clear. Reported rates of upgrade of pure papillary lesions to atypia or malignancy are highly variable, historically ranging from 5 to 20 percent, but trending down to less than 10 percent in the last decade. Most available data are retrospective, which did not agree on clinical and imaging findings predictive of upgrading at the time of surgery. In a prospective trial by the Translational Breast Cancer Research Consortium (TBCRC) of 116 intraductal papillomas without atypia on core biopsy, excluding discordant findings, the upstage rate on local review was only 1.7 percent. The current [place] Society of Breast Surgeons guidelines suggest individualizing the decision to excise a papilloma based on such criteria as size, symptoms (eg, palpability or nipple discharge), and breast cancer risk factors. Excision is recommended in cases of atypia, a palpable mass lesion, bl oody nipple discharge (primarily for symptomatic relief), and/or pathology- imaging discordance, whereas small incidental benign solitary papillomas with imaging concordance may be offered close clinical and radiological follow-up. I have discussed my assessment and recommendations with Anay to include occasional self-breast examsand annual mammographic screening with clinical breast exams. Provided her biopsy does not warrant additional workup or surgical excision, she may return to annual breast cancer screening. Routine recommendations discussed with the patient including importance of regular moderate intensity exercise, nutrition, decreasing cardiovascular risk, and optimizing weight. Nonpharmacologic measures to help decrease your risk of developing breast cancer include the following: ?? Get at least 30 minutes of moderate intensity physical activity above normal activity on most days of the week to reduce the risk of chronic disease in adulthood. Walking is a good choice. You also may want to do other activities, such as running, swimming, cycling, playing tennis, or other teamsports. ?? Do strength training exercises at least twice a week to maintain muscle and bone health. ?? Drink alcohol in moderation, if at all. That means no more than 1 drink a day for women or 2 perday for men. ?? Make healthy eating choices: fruits and vegetables, lean protein, and healthy fats. Minimize processed foods, simple carbohydrates, sugars, and artificial sweeteners. ?? Maintain or achieve a healthy weight. Normal BMI < 25 for individuals under 65 years old; 22-30 for > 65 years old. ?? Manage stress levels. ?? Be cautious about exposure risk, both what you put in and on your body (ie: artificial fragrances, artificial dyes, as well as certain ingredients in makeup, hair and body care, antiperspirant, sunscreen, insect repellant, laundry detergent, fabric softener, dryer sheets, etc.). Resources to help you make informed choices for personal care products are available at EWG (Environmental Working Group) at https://www.ewg.org and free apps for your cell phone from [employer] (Healthy Living) and [employer] ([employer]). All questions were answered to the patient's satisfaction and they state understanding and agreement with today's treatment plan. They are encouraged to follow up if symptoms worsen or fail to improve as expected, or if they develop other concerning symptoms. Total time spent on the date of the encounter: 55 minutes (Includes time spent reviewing prior notes and tests, obtaining a history, performing an exam, counseling and education, coordination of care, ordering medications/tests, placing referrals, interpreting results, and documenting in the chart). Lamar Moya APRN Surgical Oncology P [phone] F [phone] [facility] documented in this encounter Plan of Treatment Upcoming Encounters Date Type Department Care Team (Late st Contact Info) Description 04/28/2024 1:40 PM EDT Office Visit Cardiology at [address] [phone] Cody Martinez MD [facility] [place] [address] 05/27/2024 11:20 AM EDT Office Visit Dermatology at [place] [address] [place] [phone] 06/13/2024 9:00 AM EDT Appointment Ultrasound at [place] [phone] Kelly Miller PROPERTY DEVELOPER [facility] [place] [address] 06/13/2024 10:00 AM EDT Laboratory Appointment Lab [address] [place] [phone] 06/13/2024 11:00 AM EDT Office [place] [phone] Kelly Miller PROPERTY DEVELOPER [facility] [place] [address] 10/22/2024 10:30 AM EST Office Visit Weight [place] [phone] Marialuisa Peres MD [facility] [place] [address] documented as of this encounter Results * Request for 2nd read Mammo (01/03/2022 10:06 AM EDT) Anatomical Region Laterality Modality SO Impressions 01/03/2022 2:52 PM EDT Right breast supra-areolar intraductal mass measuring up to 1.2 cm. BI-RADS 4: Suspicious abnormality, biopsy should be considered. RECOMMENDATION: Ultrasound-guided biopsy. Please note: The interpretation of the [facility] Breast Imaging Radiologist subspecialist may differ from the original radiologists interpretation. This is usually not due to a deficiency of the original interpreting radiologist, rather due to the greater skill level afforded by sub-specialization in the field and/or reasonable variations in interpretations. If you have a concern regarding the [facility] interpretation you may contact the [facility] Breast Handbag Frames Inspector Office at . I have personally reviewed [...] who have questions please contact the health hospice care consultant that requested your imaging first. ? Narrative 01/03/2022 2:52 PM EDT INTERPRETATION OF OUTSIDE BREAST IMAGING I have been asked to consult on this patient by Lamar Moya APRN because he/she believes a review of this study may change or alter the care of this patient. STUDIES FROM: [facility] DATES: 12/13/2021, 12/27/2021 TYPE OF EXAM: Bilateral screening mammogram, ultrasound right breast CLINICAL HISTORY: Nipple discharge right breast - recommended biopsy, Yellowish discharge noted from upper outer duct on today's exam, Pt aware she will be contacted for biopsy appt (wants a Sunday); 1.2 x 0.4 x 0.5 soft tissue mass within subareolar duct with internal bloodflow seen on US at [facility]; What Modality is the exam? Ultrasound; Body Part (please add comments as necessary): Right breast; Sending Institution. ?? COMPARISONS: Multiple prior mammograms, most recent prior dated 11/01/2020 TECHNIQUE: Screening mammogram and targeted ultrasound of the right breast performed at [facility]. FINDINGS: Screening mammogram: The breasts are [...] alter the care ofthis patient. STUDIES FROM: [facility] DATES: 12/13/2021, 12/27/2021 TYPE OF EXAM: Bilateral screening mammogram, ultrasound right breast CLINICAL HISTORY: Nipple discharge right breast - recommended biopsy,Yellowish discharge noted from upper outer duct on today's exam, Pt aware she willbe contacted for biopsy appt (wants a Sunday); 1.2 x 0.4 x 0.5 soft tissuemass within subareolar duct with internal bloodflow seen on US at [facility]; WhatModality is the exam? Ultrasound; Body Part (please add comments as necessary):Right breast; Sending Institution. COMPARISONS: Multiple prior mammograms, most recent prior dated 11/01/2020 TECHNIQUE: Screening mammogram and targeted ultrasound of the rightbreast performed at [facility]. FINDINGS: Screening mammogram: The breasts are [...] biopsy. Please note: The interpretation of the [facility] BreastImaging Radiologist subspecialist may differ from the original radiologists interpretation. This is usually not due to a deficiency of the original interpreting radiologist, rather due to the greater skill level affordedby sub-specialization in the field and/or reasonable variations ininterpretations. If you have a concern regarding the H interpretation you may [facility] Breast Hand[facility]ames Inspector Office at . I have personally reviewed the image(s) and the resident's interpretationand agree with the findings, Jackie Torres MD at 01/03/2022 2:52 PM Thank you for letting us participate in the care of this patient. If youare a health care provider and have any questions regarding this report,please contact the number below. For patients who have questions please contactthe health hospice care consultant that requested your imaging first. Lamar Moya APRN IMG OUTSIDE I NTERPRETATION ORDERABLES documented in this encounter Visit Diagnoses Diagnosis Discharge from right nipple Discharge from right nipple documented in this encounter Care Teams Casing Tester Relationship Specialty Start Date End Date Kerry Ascencio PA [address] [place] [address] [place] [address] PCP - General Internal Medicine 01/29/21 documented as of this encounter
--- OUTSIDE RECORDS SUMMARY | 2024-04-10 13:40 | XMS_ITS | Encounter Summary ---
Author Organization [facility] Address [facility] [place] [address] Care Team Providers Care Adoption Counselor Name Role Phone Kerry Ascencio Primary Care Provider + Encounter Details Date Type Department Care Team (Late st Contact Info) Description 03/21/2022 [place] [phone] Olman Davis MD [facility] DR [place] [address] Social History Tobacco Use Types Packs/Day Years [...] Miscellaneous Notes * Telephone Encounter - Pastora Wallace, COT - 03/21/2022 8:20 AM EDT Pt called c/o OD pain that woke her up last pm. Pt states she can not open OD due to pain, tearing and nausea. Pt has tried WC, CC and Ibuprofen w/o relief. Pt has appt with Dr. Rhoades tmalanw for post op check but could not wait. Pt states pain is worse than previously. Gave pt appt today with DOC at 1045am. Pt was happy with this plan documented in this encounter Plan of Treatment Upcoming Encounters Date Type Department Care Team (Late st Contact Info) Description 04/28/2024 1:40 PM EDT Office Visit Cardiology at [address] [phone] Cody Martinez MD [facility] [place] [address] 05/27/2024 11:20 AM EDT Office Visit Dermatology at [address] [phone] 06/13/2024 9:00 AM EDT [place] [phone] Kelly Miller APRN [facility] [place] [address] 06/13/2024 10:00 AM EDT Laboratory Appointment Lab [address] [place] [phone] 06/13/2024 11:00 AM EDT Office [place] [phone] Kelly Miller APRN [facility] [place] [address] 10/22/2024 10:30 AM EST Office Visit [place] [phone] Marialuisa Peres MD [facility] [place] [address] documented as of this encounter Visit Diagnoses Not on filedocumented in this encounter Care Teams Adoption Counselor Relationship Specialty Start Date End Date Kerry Ascencio PA [address] [place] [address] [place] [address] PCP - General Internal Medicine 01/29/21 documented as of this encounter
--- OUTSIDE RECORDS SUMMARY | 2024-04-10 13:40 | XMS_ITS | Encounter Summary ---
Author Organization [facility] Address [facility] [place] [address] Care Team Providers Care Pocketed Spring Machine Operator Name Role Phone Kerry Ascencio Primary Care Provider + Encounter Details Date Type Department Care Team (Late st Contact Info) Description 03/23/2022 Telephone Ophthalmology at [facility] [place] [address] Ant Rhoades MD [place] [address] Social History Tobacco Use Types Packs/Day Years [...] encounter Miscellaneous Notes * Telephone Encounter - Emmy Michael - 03/24/2022 3:28 PM EDT Pt returned call to schedule 1 wk IOP hck with [facility]. Due to travel restrictions/cost to [facility] pt kasia does not want to schedule another appointment at [facility] until at least April. Pt is going to contact her local eye care provider, Dr. Al at [facility], to schedule a 1wk IOP hck with them. Per pt request, recent office note from 03/22 with [facility] has been routed to Dr. Al in [facility]. * Telephone Encounter - Kitty Hurtado - 03/24/2022 10:02 AM EDT Left message for pt to call back to schedule next appointment with [facility] Please schedule in any open spot using full durations Return in about 1 week (around 03/29/2022) for HCK * Telephone Encounter - Kitty Hurtado - 03/23/2022 8:28 AM EDT Return in about 1 week (around 03/29/2022) for HCK documented in this encounter Plan of Treatment Upcoming Encounters Date Type Department Care Team (Late st Contact Info) Description 04/28/2024 1:40 PM EDT Office Visit Cardiology at [address] [phone] Cody Martinez MD [facility] [address] 05/27/2024 11:20 AM EDT Office Visit Dermatology at [address] [phone] 06/13/2024 9:00 AM EDT [place] [phone] Kelly Miller APRN [facility] [place] [address] 06/13/2024 10:00 AM EDT Laboratory Appointment Lab [address] [place] [phone] 06/13/2024 11:00 AM EDT Office [place] [address] Kelly Miller APRN [facility] [address] 10/22/2024 10:30 AM EST Office Visit [place] [address] Marialuisa Peres MD [facility] [place] [address] documented as of this encounter Visit Diagnoses Not on filedocumented in this encounter Care Teams Pocketed Spring Machine Operator Relationship Specialty Start Date End Date Kerry Ascencio PA [address] [place] [address] [place] [address] PCP - General Internal Medicine 01/29/21 documented as of this encounter
--- OUTSIDE RECORDS SUMMARY | 2024-04-10 13:40 | XMS_ITS | Encounter Summary ---
Author Organization [facility] Address [facility] [place] [address] Care Team Providers Care Housekeeping Lead Name Role Phone Kerry Ascencio Primary Care Provider + Reason for Visit * Reason Onset Date Comments Eye Problem 02/28/2022 Post CE with eye pain Encounter Details Date Type Department Care Team (Late st Contact Info) Description 02/28/2022 Telephone Ophthalmology at [facility] [place] [address] Ant Rhoades MD [facility] [place] [address] Eye Problem (Post CE with eye pain) Social History Tobacco Use Types Packs/Day Years [...] encounter Miscellaneous Notes * Telephone Encounter - Conchita Mckeon COT - 02/28/2022 10:16 AM EDT Patient reports the RE has been feeling mildly different for a few days. This AM after shower/with RE closed she was unable to open to instill drops; realized the eye was very red, painful, discharge and photophobia all which continues. She wonders if she could see Dr. Al as closer for her, she is 1 1/2 hr away? Best for patient come see [facility] for possible injection. Scheduled for 1:45 tech time. documented in this encounter Plan of Treatment Upcoming Encounters Date Type Department Care Team (Late st Contact Info) Description 04/28/2024 1:40 PM EDT Office Visit Cardiology at [address] [phone] Cody Martinez MD [facility] [place] [address] 05/27/2024 11:20 AM EDT Office Visit Dermatology at [address] [phone] 06/13/2024 9:00 AM EDT Appointment Ultrasound at [place] [phone] eKlly Miller APRN [facility] [place] [address] 06/13/2024 10:00 AM EDT Laboratory Appointment Lab [address] [place] [phone] 06/13/2024 11:00 AM EDT Office [place] [phone] Kelly Miller APRN [facility] [place] [address] 10/22/2024 10:30 AM EST Office Visit [place] [phone] Marialuisa Peres MD [facility] [place] [address] documented as of this encounter Visit Diagnoses Not on filedocumented in this encounter Care Teams Housekeeping Lead Relationship Specialty Start Date End Date Kerry Ascencio PA [address] [place] [address] [place] [address] PCP - General Internal Medicine 01/29/21 documented as of this encounter
--- OUTSIDE RECORDS SUMMARY | 2024-04-10 13:40 | XMS_ITS | Encounter Summary ---
Author Organization [facility] Address [facility] [place] [address] Care Team Providers Care Section Hand Helper Name Role Phone Kerry Ascencio Primary Care Provider + Encounter Details Date Type Department Care Team (Late st Contact Info) Description 04/27/2022 12:30 PM EDT Office [place] [address] Ant Rhoades MD [facility] [place] [address] Iritis Social History Tobacco Use Types Packs/Day Years [...] Progress Notes * Ant Rhoades MD - 04/27/2022 12:30 PM EDT Idiopathic pain Pain and injection almost every day since surgery. Possible this represents a neuropathic pain given that this has been present and persistent since surgery without significant change. Visual disturbances, longstanding Hx flashes and floaters OD. Recent hx subjective visual field cut. Examination by Neuro-ophthalmology on 10/26/2021 and Retina on 11/23/2021 did not reveal any overt medical issues. 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 Starting to become significant Observe Plan: Try Prednisolone taper to see if the light sensitivity is related to residual inflamation Prednisolone 3x/day for 1 week then 1x/day for 1 week then stop. RTC: 3 week IOP, Dil, HVF,OCT Fabian Brady MD PGY-2 Ophthalmology Pager #[phone] I saw the patient with the following level of supervision from the attending: Direct * Ant Rhoades MD - 04/27/2022 12:30 PM EDT I have seen the patient in person and reviewed the resident's above history and exam and I agree with the details as written. The assessment and plan were formulated in discussion with me and I agreewith them as documented. documented in this encounter Plan of Treatment Upcoming Encounters Date Type Department Care Team (Late st Contact Info) Description 04/28/2024 1:40 PM EDT Office Visit Cardiology at [address] [phone] Cody Martinez MD [facility] [place] [address] 05/27/2024 11:20 AM EDT Office Visit Dermatology at [facility] [address] [place] [phone] 06/13/2024 9:00 AM EDT Appointment [place] [phone] Kelly Miller APRN [facility] [place] [address] 06/13/2024 10:00 AM EDT Laboratory Appointment Lab [address] [place] [address] 06/13/2024 11:00 AM EDT Office Visit [place] [address] Kelly Miller APRN [facility] [place] [address] 10/22/2024 10:30 AM EST Office Visit [facility] [place] [address] Marialuisa Peres MD [facility] [place] [address] documented as of this encounter Visit Diagnoses Diagnosis Iritis Unspecified iridocyclitis documented in this encounter Care Teams Section Hand Helper Relationship Specialty Start Date End Date Kerry Ascencio PA [address] [place] [address] [place] [address] PCP - General Internal Medicine 01/29/21 documented as of this encounter
--- OUTSIDE RECORDS SUMMARY | 2024-04-10 13:40 | XMS_ITS | Encounter Summary ---
Author Organization [facility] [place] [address] Care Team Providers Care Load Dropper Name Role Phone Kerry Ascencio Primary Care Provider + Reason for Visit * Consultation (Routine) - Closed Specialty Diagnoses / Procedures Referred By Clari dickey Referred To Contact Infectious Diseases Diagnoses COVID-19 COVID-19 Kerry Ascencio PA [address] [place] [phone] [facility] Infectious Dis [address] [place] [phone] Referral ID Status Reason Start Date Expiration Date V isits Requested Visits Authorized [id number] Closed Consult, Test & Treat PCP Updated and/or Approved 12/14/2021 12/14/2022 6 6 Encounter Details Date Type Department Care Team (Late st Contact Info) Description 01/31/2022 10:00 AM EDT TH Visit (TeleHealth) [place] [phone] Kimberlee Szymanski APRN [facility] [place] [address] Post-acute COVID-19 syndrome (Primary Dx); *History of COVID-19; Post-COVID chronic concentration deficit; Post-COVID chronic neurologic symptoms; Post-COVID chronic loss of smell and taste; Post-COVID chronic decreased mobility and endurance; Post-COVID chronic fatigue Social History Tobacco Use Types Packs/Day Years [...] this encounter Patient Instructions * Patient Instructions* Stephon Kimberlee Calderon, COMPLEX CASE MANAGER - 01/31/2022 1:19 PM EDT FATIGUE: For patients with fatigue, we encourage adequate rest, good sleep hygiene, and specific fatigue management strategies. One method that is helpful is the ???four-P?? approach to energy conservation: Planning, Pacing, Prioritizing, and Positioning. Planning: Collect all the items you need before you start a task. Specially adapted equipment is likely to make tasks easier. If you have an occupational therapist, ask them for further advice and support. You may get more done when family or friends are visiting and can help you. Pacing: Break activities up into smaller tasks and spread them throughout the day. Build rests into your activities, it???s pantoja to recharging your energy. Plan 30-40 minutes of rest breaks between activities. Sit and rest wherever possible. Prioritizing: What do I need to do today? What do I want to do today? What can be put off until another day? What can I ask someone else to do for me? Positioning: Don???t hold your breath during any task. Try to avoid pulling, lifting, bending, reaching and twisting where possible. Push or slide items as much as possible, rather than lifting them. Bend with your knees rather than from your waist. FATIGUE: What makes post-COVID fatigue last a long time? In some people, different things contribute to the fatigue and make it last a long time. Low levelsof physical activity, a disturbed daily routine, poor sleep patterns, demanding work, caring responsibilities, low mood, anxiety and stress can all make fatigue worse. What can I do about fatigue? Recognize that the fatigue is real and be kind to yourself. Explain to others the impact the fatigue is having. Because fatigue is invisible, sometimes it is not properly understood. Get a good night's sleep. Fatigue feels much worse if your sleep pattern is also disturbed. Try relaxation techniques. These can help with fatigue as they promote a good sleep pattern, and can help reduce stress. Consider trying techniques such as mindful meditation (Calm, Headspace apps available), aromatherapy, yoga, chase chi, and other activities you find relaxing, such as reading. Plan, prioritize, and delegate. Plan. Plan each day in advance so that you can do what you need, and consider what can be delegatedto other people. Build a regular routine, and try to avoid 'boom and bust' behavior, where you are very active on 'good' days and then feel exhausted the following day. An acitvity diary can help with this. Prioritize. You can also decide which activities you are doing are the most important to you. If this is a task which is very important, do it when you have the most energy. Delegate. Think about areas where you can save energy, for example, online shopping rather than physical location shopping. Make sure you are doing some things which are enjoyable, such activities can be energizing. Keeping an activity diary/journal. For 1-2 weeks, keep a record of what you have done during the day and how you feel after each activity. Also note if you had a good day. Activities can be physical,social, cognitive (thinking), or emotional, and some can be more tiring than others. Diaries can help you spot unhelpful activity patterns and 'boom and bust' behaviors. Keep active. Energy levels are also helped by staying active. Being unfit makes you more tired. Butdon't overdo it. Only once the amount of activity you are currently doing is stable and you feel OK, try to increase the amount you do slowly and gently. Do not overestimate what you can do. Try short bouts of exercise or tasks first and gradually build the frequency. It is easy to think you are fitter than you are and then overdo it. Eat well. A healthy diet can help. BRAIN FOG & MEMORY/COGNITIVE CHANGES: Studies show that cognitive training is likely to help cognitive function. This involves doing tasks that can help improve attention, thinking, and remembering and is generally referred to as ???cognitive rehabilitation?? . Training can be done with occupational therapy for help with activities of daily living and job related skills and cognitive rehabilitation. We can also refer you for cognitive testing with a neuro-psychologist who can help to identify your weaknesses and specific ways to address them. Other approaches have been tried to treat thinking or memory problems include exercise, meditation,brain games and apps (such as crossword puzzles, Beryllium ashley, [employer].Conformity) and meditation-based stress reduction (e.g. apps such as Calm, Headspace, or InsightTimer). These may be beneficialto improve cognitive function. Improving mood and sleep have also demonstrated useful in improving f atigue and brain fog. Some daily strategies for coping with Cognitive Problems: Keep a checklist of daily reminders and use calendars or daily organizers to keep track of important dates Do one task at a time and avoid distractions Control what you can about your working environment (decrease noise) Prepare yourself for success, including planning ahead Stay organized and write things down. Some find white boards helpful. Clear your mind of distractions. Yoga and meditation can be helpful. Take frequent breaks. Exercise your brain with crossword puzzles or games Exercise your body to help with stress, fatigue and depression. Get adequate rest SMELL CHANGES: For post-viral olfactory dysfunction (PVOD), we suggest smell, or olfactory, training, as this can improve the recovery of olfactory function in patients with persistent symptoms. Olfactory training typically involves deeply sniffing at least four different odors for 10-15 seconds twice daily for at least 12 weeks. The odorants used are distinct and strong and typically include flowery (eg, opal, vanilla), fruity (eg, lemon, orange), aromatic (eg, clove, cinnamon), and resinous (eg, eucalyptus, menthol). Olfactory training can be performed at home on your own. Preassembled???smell training kits?? may be purchased, or vials of essential oils can be used for this purpose. Self-guided programs are available online. Additionally, other patients experiencing this have recommended online support groups, most notably, the Facebook group: COVID Anosmia/Parosmia Support Group. Importantly: For some people with no sense of smell, they report that they cannot even smell smoke.So please be sure that you're smoke detectors are working properly. DIZZINESS/LIGHTHEADEDNESS: Conservative management of your symptoms of dizziness, lightheadedness, and racing heart include: Drink 2-3L/fluids daily (non-caffeine and non-alcoholic beverages) Prior to strenuous activity, drink another 500 mL of fluids as a bolus Increase salt intake: healthier ways to do this would be to drink V8, soup broths, or soy sauce Wear compression stockings or shorts, especially when active or standing on feet long-term Interventions/Sleep Hygiene Recommendations: We discussed trying Melatonin 1 mg nightly, starting 2 hours before your scheduled bedtime. This medication can be purchased [id number]. Do not exceed 1-3 mg/night. Keep a consistent sleep schedule. Get up at the same time every day, even on weekends or during vacations. Get bright light early - get sunlight or bright light in the first one or two hours after waking up. Set a bedtime that is early enough for you to get at least 7 hours of sleep. Go to bed at same timeas your partner. Don???t go to bed unless tired. If you don???t fall asleep after 20 minutes, get out of bed. Listen to quiet music. Avoid things that stimulate your mind (TV, exciting books). Go back to bed when you feel sleepy. Repeat as necessary. If you cannot turn your brain off, make a list of those things you are thinking about on a piece of paper next to your bed. Reassure yourself that you will deal with them in the morning. Keep bedroom as dark as safe during night, avoiding exposure to bright lights during the night. Minimize nighttime disturbance, and organize procedures and medications. Use bed only for sleep and sex. No reading, watching TV, or working. To fall asleep, lie in the position that you normally find yourself in when you wake up. Make your bedroom quiet and relaxing. Keep the room at a comfortable, cool temperature Don???t eat a large, heavy meal and avoid drinking within 3 hours of going to bed. If you are hungry at night, eat a light, healthy snack. Exercise regularly and maintain a healthy diet. Exercise in the morning or afternoon. Don't exercise in the evening. Avoid alcohol, caffeine, chocolate, or nicotine in the late afternoon and evening. Avoid looking at a clock. Turn your clock so that you cannot see its face. Avoid watching television or using phone or computer in bed Restrict sleep to nighttime and short naps during the day Other interventions include hypnosis, meditation, biofeedback, relaxation therapy, and guided imagery. (meditation, warm baths, use of aromatherapies (chamomile or lavender). documented in this encounter Progress Notes * Kimberlee Szymanski APRN - 01/31/2022 10:00 AM EDT Post-Acute COVID Syndrome Tele-health Note We are asked by Dr. Ascencio to see this 61 y.o. female for evaluation of post- acute COVID syndrome. Date of acute COVID-19: May, - reports tested positive at [facility] ED SARS-CoV-2 test results: Lab Results Component Value Date/Time COVID19 Not Detected 08/06/2020 09:54 AM Description of acute illness: Describes feeling unwell for a few weeks with diarrhea and belly acheand thought she was having a flare of diverticulitis but remained afebrile. Eventually, developed sniffles and her also had cold-like sx. One day, she felt achy all over like I was run over by a train with cold and fever >102F. She progressively felt worse and couldn't eat or drink. She was sleeping [id number] with bad cough, headache, and loss of taste and smell. By late May, she presented to ED and was tested COVID positive. Discharged home. Present illness: Agatha Yi is a 61 y.o. female with a PMHx of hypothyroidism, HTN, hyperlipidemia, CAD with cardiac cath, asthma, GERD, migraines, obesity, depression, and vertigo who presents today, via Telehealth, for consultation around ongoing post-COVID symptoms, most predominantly: brain fog, taste/smell changes, fatigue, dizziness, and mood changes. Describes her brain fog as in a fog or cloudy. I can't remember things; it's terrible. She describes struggles with attention span and often walks into a room and asks herself where am I going? It has become noticeable to others. She struggles with word recall; I know what I want to say but I can't get it out clearly to others. She loses train of thought mid-sentence sometimes and expects others to fill in the blanks. She has started using a daily nurse discharge planner to help her remember and keep track of things. She reports months of headaches after initial COVID infection but these have since improved/resolved. Now, she is back to her usual baseline frequency/intensity of migraines. She initially lost all sense of smell and taste but now has some back. She reports no chest pain or discomfort. Ongoing chronic cough that was present before COVID. No shortness of breath or dyspnea. She did have SVT since COVID and was seen by front facer who started her on diltiazem. Since then, these symptoms have improved. She does endorse dizziness/lightheadedness with position changes or while taking warm showers. She has a shower chair and uses it more regularly now. She feels cold all the time and prior she was someone who was never cold. She continues to have her usual hot flashes, though. Blankets or covering up do get her warm. She feels tired all the time. She struggles with sleep - has a hard time falling asleep and she wakes up a lot during the night. Sometimes, she wakes up breathless. Her says she snores. Shehad a sleep study prior and was started on a CPAP machine. But, the machine was recalled and so shehasn't been using one anymore. She feels tired throughout the day, including waking up tired. I just don't have any oomph. 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 She goes to bed between 7:30-9PM when she feels tired. If she has a busy day, her fatigue and other symptoms feel worse. She reports that her mood is OK and does not feel she is anymore anxious or depressed. However, shehas noticed she is more grumpy/irritable since COVID infection. She has upcoming surgery for rotator cuff repair on 02/10/22. COVID vaccine status: Angle 06/03/21 pre-COVID infection; 07/05/21 after COVID infection (no changein long COVID symptoms) Screening Tools: GAD7 Questionnaires Data: last 4 values ANGY-7 Patient Reported Responses 01/30/2022 01/30/2022 Nervous, anxious (Patient) - More than half the days Unable to stop worrying (Patient) - Nearly every day Worrying about different things (Patient) - Nearly every day Trouble relaxing (Patient) - Nearly every day Restless (Patient) - More than half the days Easily annoyed, irritable (Patient) - More than half the days Afraid something awful will happen (Patient) - Nearly every day Difficulty (Patient) Very difficult Very difficult ANGY-7 Score (Patient) - 18 (Severe Anxiety) PHQ9 Questionnaires Data (Clinic and Pt Entered): Today's value PHQ-9 QUESTIONNAIRE (AMB) 01/30/2022 PHQ - 9 Score (Patient) 13 (Moderate Depression) Little interest or pleasure (Patient) Not at all Down, depressed, hopeless (Patient) Not at all Trouble sleeping (Patient) Nearly every day Tired or no energy (Patient) Nearly every day Poor appetite or overeating (Patient) Several days Feeling like a failure (Patient) Not at all Trouble concentrating (Patient) Nearly every day Moving or speaking slowly (Patient) Nearly every day Would be better off (Patient) Not at all Fatigue Assessment Scale: Fatigue Assessment Scale (FAS) 01/30/2022 1. I am bothered by fatigue Always 2. I get tired very quickly Always 3. I don't do much during the day Regularly 4. I don't have enough energy for every day life Always 5. Physically, I feel exhausted Always 6. I have problems starting things Sometimes 7. I have problems thinking clearly Often 8. I feel no desire to do anything Often 9. Mentally, I feel exhausted Always 10. When I am doing something, I can concentrate quite well Never FATIGUE ASSESSMENT SCALE SCORE 39 In the past 7 days, did you need help from others to take care of any of the following activities? No, I do not have difficulty with these activities No flowsheet data found. No flowsheet data found. Patient Active Problem List Diagnosis Code ??? Uterine leiomyoma ??? Coronary arteriosclerosis I25.10 ??? Urticaria L50.9 ??? Trochanteric bursitis of right hip M70.61 ??? Thyroid function test abnormal R94.6 ??? Solitary pulmonary nodule R91.1 ??? Seborrheic keratosis L82.1 ??? Post-acute COVID-19 syndrome U09.9 ??? Pain in left knee M25.562 ??? Overactive bladder N32.81 ??? Onychomycosis B35.1 ??? Asthma J45.909 ??? Benign paroxysmal positional vertigo H81.10 ??? Depressive disorder F32.A ??? Dizziness and giddiness R42 ??? Fatigue R53.83 ??? Fear of flying F40.243 ??? Contact dermatitis L25.9 ??? Chronic constipation K59.09 ??? Carpal tunnel syndrome G56.00 ??? Bursitis of left shoulder M75.52 ??? GERD (gastroesophageal reflux disease) K21.9 ??? History of cardiac cath Z98.890 ??? Hyperlipidemia E78.5 ??? Hypertension I10 ??? Hypothyroidism E03.9 ??? Idiopathic osteoarthritis M19.90 ??? Insomnia G47.00 ??? Lack of energy R53.83 ??? Migraine headache G43.909 ??? Obesity E66.9 Outpatient Encounter Medications as of 01/31/2022 Medication Sig Dispense Refill ??? omeprazole (PriLOSEC) 40 mg Capsule, Delayed Release(E.C.) ??? senna-docusate (Pericolace) 8.6-50 mg Tablet Every 12 hours. ??? Gentle Laxative, bisacodyl, 5 mg Tablet, Delayed Release (E.C.) TAKE 1 TABLET ONCE DIRECTED ??? budesonide-formoteroL (Symbicort) 160-4.5 mcg/actuation HFA Aerosol Inhaler Symbicort 160 mcg-4.5 mcg/actuation HFA aerosol inhaler INHALE 2 PUFFS BY MOUTH TWICE DAILY ??? albuteroL (ProAir HFA) 90 mcg/actuation HFA Aerosol Inhaler every 5 hours. ??? topiramate (Topamax) 25 mg Tablet ??? aspirin 81 mg Tablet, Chewable Take 81 mg by mouth daily. ??? dilTIAZem XR (Dilacor XR) 120 mg Capsule,Degradable Cnt Release Take 1 capsule by mouth daily. 90 capsule 3 ??? Spiriva with HandiHaler 18 mcg Capsule, w/Inhalation Device INHALE 1 DOSE IN THE MORNING AFTER BREO ??? Anoro Ellipta 62.5-25 mcg/actuation Disk with Device INHALE 1 PUFF BY MOUTH IN THE MORNING ??? levothyroxine (Synthroid) 100 mcg Tablet TAKE 1 TABLET BY MOUTH EVERY DAY ??? ezetimibe (Zetia) 10 mg Tablet Take 10 mg by mouth daily. ??? nitroGLYcerin (Nitrostat) 0.4 mg Tablet, Sublingual Place 1 tablet under the tongue every 5 minutes as needed for Chest pain (may repeat x3,five minutes apart ,call 911 if chest pain remains). 30tablet 5 ??? celecoxib (CeleBREX) 100 mg Capsule daily. ??? MECLIZINE HCL (MECLIZINE ORAL) Take by mouth as needed. Dose unknown ??? cetirizine (ZYRTEC) 10 mg Tablet Take 10 mg by mouth daily. ??? rosuvastatin (CRESTOR) 40 mg Tablet Take 40 mg by mouth daily. ??? fluticasone-salmeterol (ADVAIR HFA) 115-21 mcg/actuation HFA Aerosol Inhaler Inhale 2 puffs into the lungs 2 times daily. ??? acyclovir (ZOVIRAX) 200 mg Capsule Take 200 mg by mouth as needed. 0 ??? clindamycin (CLEOCIN) 150 mg Capsule Take 150 mg by mouth as needed. 0 ??? EPIPEN 2-JAKE 0.3 mg/0.3 mL Auto-Injector Inject 1 Device as directed as needed. 0 ??? ibuprofen (ADVIL;MOTRIN) 800 mg Tablet Take 800 mg by mouth 3 times daily as needed. 0 ??? topiramate (TOPAMAX) 50 mg Tablet Take 50 mg by mouth daily. 0 ??? SUMAtriptan (IMITREX) 50 mg Tablet Take 50 mg by mouth as needed. 0 ??? albuterol (PROVENTIL HFA;VENTOLIN HFA;PROAIR) 90 mcg/actuation HFA Aerosol Inhaler Inhale 2 puffs into the lungs every 4 hours as needed for Wheezing. Use with spacer ??? docusate sodium (COLACE) 250 mg capsule Take by mouth. ??? citalopram (CELEXA) 20 mg tablet No facility-administered encounter medications on file as of 01/31/2022. Allergies Allergen Reactions ??? Peanut Anaphylaxis Other reaction(s): Anaphylaxsis ??? Raw Fruit Angioedema ??? Tree Nut Anaphylaxis Other reaction(s): Anaphylaxsis ??? Adhesive Other reaction(s): RASH AND SWELLING ??? Alcohol Other reaction(s): RASH ??? Gum [place] Other reaction(s): RASH ??? Hydrocodone Other reaction(s): PRURITIS ??? Methyl Salicylate Other reaction(s): RASH ??? Storax Other reaction(s): RASH ??? Tetrabenazine Other reaction(s): RASH,HIVES ??? Amoxicillin ??? Dog Dander Other reaction(s): WATERY EYES ??? Milk ??? Morphine Sulfate CIS - Nausea/Vomiting ??? Oxycodone-Acetaminophen CIS - Nausea/Vomiting ??? Pollen Extracts Other reaction(s): watery eyes ??? Tetanus And Diphtheria Toxoids, Adsorbed, Adult CIS - swelling ??? Benzoin Other reaction(s): Skin Rash ??? Cat Dander Other reaction(s): WATERY EYES Exam VS were not able to be obtained due to patient location. Audio on video link not working so although visit started with video, majority of visit was by telephone only. Therefore, limited exam. Constitutional: Appears well-developed and well-nourished. No distress. Not ill-appearing. Neurological: Alert and oriented. Cranial nerves grossly intact. Moving upper extremities appropriately Psychiatric: Normal mood and affect. Normal speech, thought, and memory. Laboratory Lab Results Component Value Date WBC 6.1 11/06/2017 HGB 14.4 11/06/2017 PLATELET 206 11/06/2017 Lab Results Component Value Date NA 143 11/06/2017 K 4.5 11/06/2017 CL 105 11/06/2017 BUN 9 11/06/2017 CREATININE 0.89 11/06/2017 No results found for: BILITOT, AST, ALT, ALKPHOS Additional Test Results 12/21/21 ECHO Interpretation Summary Left ventricle is normal in size and function with EF 65% and no WMA. Mild basal septal hypertrophy without LVOT obstruction. Mild filling abnormality. Right ventricle is normal size and systolic function. No significant valvular abnormalities. Compared to prior TTE report from 03/28/2012, there are no significant changes. 09/19/21 Ziopatch and EKG reviewed Impression/Plan Agatha Yi is a 61 y.o. female seen today for evaluation of post-acute COVID syndrome. She is experiencing persistent symptoms consistent with post- COVID sequelae, principally: brain fog, taste/smell changes, fatigue, dizziness, and mood changes. FATIGUE Agatha is endorsing symptoms consistent with post COVID fatigue which presents similarly to chronic fatigue syndrome (ME/CFS) and postexertional malaise. With regards to post-COVID post-exertional malaise (PEM), it is the worsening of symptoms (in this case flare of arthritis pain, worsening brainfog, dizziness, mood changes) following even minor physical or mental exertion. PEM can be mitigated by activity management (pacing). The goal is to avoid PEM flare-ups and illness relapses by balancing rest and activity. Patients need to determine their individual limits for mental and physical activity, and plan activity and rest to stay within these limits sometimes referred to as staying within the ???energy bucket.?? Limitations may be different for each patient. Keeping individual activity and symptom diariesmay be helpful to patients in identifying their personal limitations. We discussed the risks of ???push and crash?? cycles: having a ???good day?? by subsequently doing too much to make up for ???lost time,?? and then relapsing. We also discussed the importance of maintaining activities that shecan tolerate on bad days (such as gentle stretching or chase chi) since deconditioning is also harmful to patients. Patients who are tolerating their current level of activity and have learned to ???listen to their bodies?? might benefit from carefully increasing exercise to improve their physical fitness and avoid deconditioning. We discussed the role of PT/OT to help develop an individualized and flexible approach to advancing activity levels. At this time, she feels she can manage these recommendations on her own and instructions were provided. NON-RESTORATIVE SLEEP SLEEP APNEA We talked about how one of the most important management strategies for fatigue, mood changes, and brain fog is improving sleep. Agatha describes having been diagnosed with sleep apnea but that she is no longer using her CPAP due to an equipment recall. I urged her to reach back out to her PCP or sleep specialist (whoever is managing her sleep apnea) to discuss issuing a new CPAP machine. DIZZINESS H/o SVT For patients with orthostasis and dysautonomia (eg, unexplained sinus tachycardia, dizziness on standing) following COVID-19, we initially treat conservatively. With mild symptoms, I recommend adequate daily hydration of 2- 3L/day, bolus of fluids (500 mL) prior to strenuous activity, increasing salt intake to 4g/day, and behavioral modifications. Thigh-high compression stockings may also be of benefit. If symptoms fail to respond to conservative measures, it is reasonable to refer to neurology for dysautonomia work-up and testing or continued care with her front facer. For now, it seems thatraffy is working well for her. BRAIN FOG MEMORY/COGNITIVE CHANGES MOOD CHANGES Studies show that cognitive training is likely to help cognitive function. This involves doing tasks that can help improve attention, thinking, and remembering and is generally referred to as ???cognitive rehabilitation?? . Training can also be done with occupational or speech therapy for help withactivities of daily living and cognitive rehabilitation, but at this time, Agatha prefers to try to work on this on her own. We talked about approaches to helping with thinking or memory problems including: exercise, meditation, brain games and apps (such as crossword puzzles, Luminosity ashley, [email or web address]) and meditation-based stress reduction. Improving mood and sleep have also demonstrated useful in improving fatigue and brain fog. SMELL/TASTE CHANGES For anosmia, there is little evidence for helping to speed up the recovery of smell. However, some suggest trying olfactory/smell training and we reviewed this together. I reinforced the importance of maintaining healthy eating, avoiding unintentional weight loss and emphasizing safety such as by replacing batteries in all smoker detectors. I informed Ms. Yi that there is no specific treatment for persistent post- acute COVID symptoms, but we discussed symptom management and rehabilitation. The patient seemed reassured by my comments, in particular my validation of her symptoms and my reassurance that most patients do gradually improve over time. I informed Ms. Yi about our research study, [facility] Post- Acute COVID Syndrome Clinic Registry. I explained the purpose of the study -- to better understand the epidemiology, treatment and prognosis of PACS -- and that it requires us to collect protected health care information. I reviewed the Verbal Consent Script with the patient. Ms. Yi had the opportunity to ask questions and gave verbal consent to participate in this study. Follow up: PRN I spent a total of 70 minutes with the patient in counseling on COVID and the rest including my review of internal and outside medical records prior to the visit. Kimberlee Szymanski APRN documented in this encounter Plan of Treatment Upcoming Encounters Date Type Department Care Team (Late st Contact Info) Description 04/28/2024 1:40 PM EDT Office Visit Cardiology at [address] [phone] Cody Martinez MD [facility] [place] [address] 05/27/2024 11:20 AM EDT Office Visit Dermatology at [address] [phone] 06/13/2024 9:00 AM EDT Appointment [place] [phone] Kelly Miller APRN [facility] [place] [address] 06/13/2024 10:00 AM EDT Laboratory Appointment Lab [address] [place] [phone] 06/13/2024 11:00 AM EDT Office Visit [place] [phone] Kelly Miller APRN [facility] [place] [address] 10/22/2024 10:30 AM EST Office Visit Weight [place] [address] Marialuisa ePres MD [facility] [place] [address] documented as of this encounter Visit Diagnoses Diagnosis 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
--- OUTSIDE RECORDS SUMMARY | 2024-04-10 13:40 | XMS_ITS | Encounter Summary ---
Author Organization [facility] [place] [address] Care Team Providers Care Starter Cup Powder Mixer Name Role Phone Kerry Ascencio Primary Care Provider + Reason for Visit * Auth/Cert Specialty Diagnoses / Procedures Referred By Clari dickey Referred To Contact Diagnoses Cataract Procedures PRO EXTRACAPSULAR CATARACT RMVL INSERTION IO LENS PROSTH W/O ECP CATARACT EXTRACTION, EXTRACAPSULAR, W/ LENS INSERTION (WRVU 8.52) Referral ID Status Reason Start Date Expiration Date Visits Re quested Visits Authorized [id number] 1 Encounter Details Date Type Department Care Team (Late st Contact Info) Description 02/20/2022 2:31 PM EDT - 02/20/2022 3:05 PM EDT Surgery [facility] [place] [address] Ant Rhoades MD [facility] [place] [address] CATARACT EXTRACTION, EXTRACAPSULAR, W/ LENS INSERTION (WRVU 7.35) Social History Tobacco Use Types Packs/Day Years Used Date Smoking Tobacco: Former Cigarettes 1 10 1 1983 Smokeless Tobacco: Never Alcohol Use Standard Drinks/Week Comments Never 0 (1 standard drink = 0.6 oz pur e alcohol) Sex and Gender Information Value Date Recorded Sex Assigned at Not on file Gender Identity Not on file Sexual Orientation Not on file documented as of this encounter Last Filed Vital Signs Vital Sign Reading Time Taken Comments Blood Pressure 129/75 02/20/2022 3:01 PM EDT Pulse 66 02/20/2022 3:01 PM EDT Temperature 36 ??C (96.8 ??F) 02/20/2022 2:02 PM EDT Respiratory Rate 13 02/20/2022 3:01 PM EDT Oxygen Saturation 100% 02/20/2022 3:01 PM EDT Inhaled Oxygen Concentration - - Weight 79.4 kg (175 lb) 02/20/2022 2:02 PM EDT Height 154.9 cm (5' 1) 02/20/2022 2:02 PM EDT Body Mass Index 33.07 02/20/2022 2:02 PM EDT documented in this encounter Discharge Instructions * Discharge Instructions* Leti Rincon RN - 02/20/2022 1:47 PM EDT Instructions for the first day following CATARACT (and cataract with iStent) surgery Ant Rhoades M.D. Section of ophthalmology [facility] [phone] - Wear either the eye shield or glasses of any kind for the first 24 hours after surgery. -Do not rub your eye. -No swimming or hot tubs for 1 month after surgery. - The surgery center nurses should confirm time of your follow up appointment for tomorrow with . This appointment will be at the [facility] in the main building at [facility] - Mild discomfort is normal, but if you have any severe eye pain or bleeding call [phone] and ask to speak to the eye doctor consulting sme. - Call you Primary Care Doctor or the Emergency Room for any non eye related medical issues. - Your eye will be red tomorrow - this is normal. - Your glasses prescription has changed and you old glasses may not work anymore. You will get a new glasses prescription in about 4-6 weeks - Start your post-op drops in 2 hours. Your post-op drops to take while awake are prednisolone acetate 1% (white or pink), Moxifloxacin (pagan) and Ketorolac (peter) each four times daily. Use at breakfast, lunch, dinner and bedtime. - Be sure to wait 5 minutes between each drop so that they don't dilute each other. - The prednisolone acetate drops (white or pink) need to be shaken. - Some of the drops, especially the Ketorolac (peter), may sting. It can be helpful to refrigerate them to make them more comfortable. - If you are on glaucoma drops, it is very important that you keep taking these as usual. -Use all of the drops until the bottles run out, then stop. You do not need to refill any of the drops from surgery - Bring your Eye Kit and drops to all postoperative visits. Moderate Sedation You may have received medication before and/or during your procedure, which affects your judgement and reaction time. Do not drive, operate machinery, drink alcoholic beverages, or make any legal decisions for 24 hours. Be careful on stairs, as you may be unsteady on your feet. You may eat a regular diet as tolerated. Do not smoke if you are alone. IV site -- slight redness, or tenderness is normal, you can use a warm compress. If tenderness and redness increases or foul drainage occurs, please contact your M. D. Questions or problems after 5pm or on a weekend: Call the [facility] grapple yarder operator and ask for the physician consulting sme covering for your doctor. documented in this encounter Medications at Time of Discharge [...] spacer citalopram (CELEXA) 20 mg tablet 07/19/2009 senna-docusate (Pericolace) 8.6-50 mg Tablet Every 12 hours. 12/20/2022 topiramate (Topamax) 25 mg Tablet 10/24/2021 12/20/2022 dilTIAZem XR (Dilacor XR) 120 mg Capsule,Degradable Cnt Release Take 1 capsule by mouth daily. 90 capsule 3 12/21/2021 12/21/2022 topiramate (TOPAMAX) 50 mg Tablet Take 50 mg by mouth daily. 0 05/26/2016 12/20/2022 SUMAtriptan (IMITREX) 50 mg Tablet Take 50 mg by mouth as needed. 0 06/05/2016 12/20/2022 documented as of this encounter Progress Notes * Aline Lopes RN - 02/20/2022 3:26 PM EDT Pt instructed to squeeze RN's hand if having pain, need to cough, etc. Pt instructed not to talk during procedure. Pain assessment unable to verbalize (non-verbal) but will indicate pain with hand squeeze, ask surgeon to pause and verbally assess pt. Date/Procedure: Meds Given Comments 02/20/2022: R Eye Cataract Extraction Midazolam: 1mg Fentanyl: 12.5mcg Pt tolerated procedure well. IV removed, site benign. Discussed pain management with patient and , pain tolerable. Pt hasall belongings and supplies needed. Patient received discharge summary and prescriptions. These were reviewed with . He verbalizes understanding of AVS. All questions answered. Pt encouraged to call with questions or concerns. Pt discharged to home with family. Patient ambulated to car for discharge accompanied by [facility] staff member. documented in this encounter H&P Notes * Ant Rhoades MD - 02/20/2022 2:41 PM EDT Images from the original note were not included. Patient Name: Agatha Yi Patient Age: 61 y.o. Birthdate: 1960 Admit date: 02/20/2022 Attending Physician: Ant Rhoades MD Agatha Yi was examined in the preoperative area. She reports no new symptoms or other change in her health since her preoperative history and physical exam was performed less than 30 days ago. Her exam reveals no significant changes. She is breathing comfortably, without cyanosis or use of accessory muscles. Vital signs are within acceptable parameters. The eyes are quiet without discharge or other signs of active infection. Heart: RRR no murmur Lungs: clear bilaterally Malampatti: 3 ASA: 2 The sedation plan was reviewed with Agatha L Ronancailin and she expressed understanding and agreement. REFERENCES: ASA Score: I. Patient is a completely healthy fit patient. II. Patient has mild systemic disease. III. Patient has severe systemic disease that is not incapacitating. IV. Patient has incapacitating disease that is a constant threat to life. V. A moribund patient who is not expected to live 24 hour with or without surgery. documented in this encounter Miscellaneous Notes * Op Note - Ant Rhoades MD - 02/20/2022 3:00 PM EDT [facility] [place] Patient Name: Agatha Yi : [id number] MR#: [id number] Case Date: 02/20/2022 Surgeon: Surgeon(s) and Role: * Ant Rhoades MD - Primary Preoperative diagnosis: Cataract Postoperative diagnosis: Cataract Procedure(s) (LRB): CATARACT EXTRACTION, EXTRACAPSULAR, W/ LENS INSERTION (WRVU 8.52) (Right) Anesthesia: Anesthesia type not filed in the log. Estimated Blood Loss: * No values recorded between 02/20/2022 3:00 PM and 02/20/2022 3:11 PM * Specimens removed during surgery: None Drains: * No LDAs found * Surgical Closure: Primary Closure - skin incision is completely closed without any wires, annel, drains or other devices Disposition: regional anesthesia administered without incident Condition: doing well without problems (Please see the Surgical Encounter Summary for any Implant and Specimen details pertinent to this patient.) HPI/Surgical Indications: Ms Yi presents to clinic with decreased vision in the right eye. This is secondary to nuclear sclerotic cataract and is interfering with her ability to perform her daily activities. After discussing the risks and benefits of surgery, she requested we proceed with cataract extraction to improve her vision. Procedure Description: After informed consent was obtained the patient was taken back to the OR where she was placed under mild IV sedation. @ was prepped and draped in a sterile fashion and an eyelid speculum was placed in the right eye. 1% preservative free lidocaine was instilled on to the eye and a paracentesis port was made in the peripheral clear cornea and 1% preservative free lidocaine was injected into the anterior chamber. The anterior chamber was filled with viscoelastic and a keratome was used to create a beveled, temporal clear cornea stab incision. A bent needle cystotome and Utrata forceps were used to create a continuous curvilinear capsulorhexis. Hydrodisection and hydrodemarcation was carried out using BSS. The nucleus was the emulsified using a stop and chop technique. The remaining epineculus and cortex was removed using irrigation and aspiration. The posterior capsule was inspected and found to be intact. The capsular bag and anterior chamber were filled with viscoelastic and an [facility] SN60WF 22.0 diopter lens was inserted in to the bag without difficu lty. The remaining viscoelastic was removed with irrigation and aspiration, the corneal wound was hydrated, and the wound was found to be water tight. The eyelid speculum and drapes were removed and routine postoperative drops were instilled and a patch and shield were placed. The patient was takenfrom the operating room to the recovery room in stable condition. Surgical Infection Prevention Bundle Used? N/A Attestation: Case Date: 02/20/2022 I performed this procedure without the involvement of a resident. Ant Rhoades MD 02/20/2022 documented in this encounter Plan of Treatment Upcoming Encounters Date Type Department Care Team (Late st Contact Info) Description 04/28/2024 1:40 PM EDT Office Visit Cardiology at [address] [phone] Cody Martinez MD [facility] [place] [address] 05/27/2024 11:20 AM EDT Office Visit Dermatology at [address] [phone] 06/13/2024 9:00 AM EDT [place]oint[place] [phone] Kelly Miller PROCESSOR SOLID PROPELLANT [facility] [place] [address] 06/13/2024 10:00 AM EDT Laboratory Appointment Lab [address] [place] [phone] 06/13/2024 11:00 AM EDT Office [place] [phone] Kelly Miller PROCESSOR [employer]OPELL[employer] [facility] [place] [address] 10/22/2024 10:30 AM EST Office Visit [place] [address] Marialuisa Peres MD [facility] [place] [address] documented as of this encounter Procedures Procedure Name Priority Date/Time Associated Diagnosis Comments Extracapsular Cataract Rmvl Insertion Io Lens Prosth W/O Ecp (63409) 02/20/2022 2:54 PM EDT Combined forms of age-related cataract of right eye CATARACT EXTRACTION, EXTRACAPSULAR, W/ LENS INSERTION Routine 02/20/2022 1:46 PM EDT Combined forms of age-related cataract of right eye documented in this encounter Visit Diagnoses Diagnosis Combined forms of age-related cataract of right eye Other and combined forms of senile cataract Combined forms of age-related cataract of right eye Other and combined forms of senile cataract documented in this encounter Administered Medications Inactive Administered Medications - up to 3 most recent administrations Medication Order MAR Action Action Date Dose Rate Site cyclopentolate (Cyclodryl) ophthalmic solution 1 drop 1 drop, Right Eye, EVERY 5 MIN, 3 doses, First dose on Sun02/20/22 at 1415, Last dose on Sun02/20/22 at 1425, 1 drop to the operative eye every 5 minutes times 3. Start day of surgery. Do NOT place dilating drops in post-op kit!, Day of Surgery (Day of Procedure), Routine Given 02/20/2022 2:31 PM EDT 1 drop Given 02/20/2022 2:29 PM EDT 1 drop Given 02/20/2022 2:22 PM EDT 1 drop fentaNYL (pf) (50 mcg/mL) multi-dose injection 25-50 mcg 25-50 mcg, Intravenous, EVERY 5 MIN PRN, Starting on Sun02/20/22 at 1346, Until Sun02/20/22 at 1523, Pain, Hold for respiratory rate less than 8 breaths per minute. (maximum dose 200 mcg), Intra-Operative (Intra-Procedure), Routine Given 02/20/2022 3:03 PM EDT 12.5 mcg ketorolac tromethamine (Acular) 0.5 % ophthalmic solution 1 drop 1 drop, Right Eye, ONCE, 1 dose, On Sun02/20/22 at 1415, 1 drop to the operative eye once, start on day of surgery, Day of Surgery (Day of Procedure), Routine Given 02/20/2022 2:23 PM EDT 1 drop lactated ringers infusion 1,000 mL, at 100 mL/hr, Intravenous, CONTINUOUS, Starting on Sun02/20/22 at 1415, Until Sun02/20/22 at 1523, Day of Surgery (Day of Procedure) New Bag 02/20/2022 2:35 PM EDT 1,000 mLs 100 mL/hr midazolam (pf) (Versed) (1 mg/mL) multi-dose injection 0.5-2 mg 0.5-2 mg, Intravenous, EVERY 5 MIN PRN, Starting on Sun02/20/22 at 1346, Until Sun02/20/22 at 1523, Sleep, Anxiety, Hold for delirium/agitation. (Maximum dose 5 mg)., Intra-Operative (Intra-Procedure), Routine Given 02/20/2022 3:03 PM EDT 0.5 mg Given 02/20/2022 3:00 PM EDT 0.5 mg moxifloxacin (Vigamox) 0.5 % ophthalmic solution 1 drop 1 drop, Right Eye, EVERY 5 MIN, 3 doses, First dose on Sun02/20/22 at 1415, Last dose on Sun02/20/22 at 1425, 1 drop to the operative eye every 5 minutes times 3. Start on the day of surgery. , Day of Surgery (Day of Procedure), Routine Given 02/20/2022 2:31 PM EDT 1 drop Given 02/20/2022 2:29 PM EDT 1 drop Given 02/20/2022 2:22 PM EDT 1 drop PHENYLephrine (Mydfrin) 2.5 % ophthalmic solution 1 drop 1 drop, Right Eye, EVERY 5 MIN, 3 doses, First dose on Sun02/20/22 at 1415, Last dose on Sun02/20/22 at 1425, 1 drop to the operative eye every 5 minutes times 3. Start on the day of surgery. Do NOT place dilating drops in post-op kit!, Day of Surgery (Day of Procedure), Routine Given 02/20/2022 2:31 PM EDT 1 drop Given 02/20/2022 2:29 PM EDT 1 drop Given 02/20/2022 2:22 PM EDT 1 drop prednisoLONE acetate (Pred-Forte) 1 % suspension 1 drop 1 drop, Right Eye, ONCE, 1 dose, On Sun02/20/22 at 1415, 1 drop to the operative eye once, start on day of surgery, Day of Surgery (Day of Procedure), Routine Given 02/20/2022 2:22 PM EDT 1 drop documented in this encounter Active and Recently Administered Medications Times are shown in EDT. Scheduled Medication Order 02/18/2022 02/19/2022 02/20/2022 cyclopentolate (Cyclodryl) ophthalmic solution 1 drop (COMPLETED) 1 drop, Right Eye, EVERY 5 MIN, 3 doses, First dose on Sun02/20/22 at 1415, Last dose on Sun02/20/22 at 1425, 1 drop to the operative eye every 5 minutes times 3. Start day of surgery. Do NOT place dilating drops in post-op kit!, Day of Surgery (Day of Procedure), Routine 142 (Given - Provid er: Aline Lopes RN)142 (Given - Provider: Aline Lopes RN)1431 (Given - Provider: Aline Lopes RN) ketorolac tromethamine (Acular) 0.5 % ophthalmic solution 1 drop (COMPLETED) 1 drop, Right Eye, ONCE, 1 dose, On Sun02/20/22 at 1415, 1 drop to the operative eye once, start on day of surgery, Day of Surgery (Day of Procedure), Routine 1423 (Given - Provid er: Aline Lopes RN) moxifloxacin (Vigamox) 0.5 % ophthalmic solution 1 drop (COMPLETED) 1 drop, Right Eye, EVERY 5 MIN, 3 doses, First dose on Sun02/20/22 at 1415, Last dose on Sun02/20/22 at 1425, 1 drop to the operative eye every 5 minutes times 3. Start on the day of surgery. , Day of Surgery (Day of Procedure), Routine 1422 (Given - Provid er: Aline Lopes RN)142 (Given - Provider: Aline Lopes RN)1431 (Given - Provider: Aline Lopes RN) PHENYLephrine (Mydfrin) 2.5 % ophthalmic solution 1 drop (COMPLETED) 1 drop, Right Eye, EVERY 5 MIN, 3 doses, First dose on Sun02/20/22 at 1415, Last dose on Sun02/20/22 at 1425, 1 drop to the operative eye every 5 minutes times 3. Start on the day of surgery. Do NOT place dilating drops in post-op kit!, Day of Surgery (Day of Procedure), Routine 1422 (Given - Provid er: Aline Lopes RN)1429 (Given - Provider: Aline Lopes RN)1431 (Given - Provider: Aline Lopes RN) prednisoLONE acetate (Pred-Forte) 1 % suspension 1 drop (COMPLETED) 1 drop, Right Eye, ONCE, 1 dose, On Sun02/20/22 at 1415, 1 drop to the operative eye once, start on day of surgery, Day of Surgery (Day of Procedure), Routine 1422 (Given - Provid er: Aline Lopes RN) Continuous Medication Order 02/18/2022 02/19/2022 02/20/2022 lactated ringers infusion (CANCELED) 1,000 mL, at 100 mL/hr, Intravenous, CONTINUOUS, Starting on Sun02/20/22 at 1415, Until Sun02/20/22 at 1523, Day of Surgery (Day of Procedure) 1435 (New Bag - Prov ider: Aline Lopes RN) PRN Medication Order 02/18/2022 02/19/2022 02/20/2022 fentaNYL (pf) (50 mcg/mL) multi-dose injection 25-50 mcg (CANCELED) 25-50 mcg, Intravenous, EVERY 5 MIN PRN, Starting on Sun02/20/22 at 1346, Until Sun02/20/22 at 1523, Pain, Hold for respiratory rate less than 8 breaths per minute. (maximum dose 200 mcg), Intra-Operative (Intra-Procedure), Routine 1503 (Given - Provid er: Aline Lopes RN) midazolam (pf) (Versed) (1 mg/mL) multi-dose injection 0.5-2 mg (CANCELED) 0.5-2 mg, Intravenous, EVERY 5 MIN PRN, Starting on Sun02/20/22 at 1346, Until Sun02/20/22 at 1523, Sleep, Anxiety, Hold for delirium/agitation. (Maximum dose 5 mg)., Intra-Operative (Intra-Procedure), Routine 1500 (Given - Provid er: Aline Lopes RN)1503 (Given - Provider: Aline Lopes RN) documented in this encounter Care Teams Starter Cup Powder Mixer Relationship Specialty Start Date End Date Kerry Ascencio PA [address] [place] [address] [place] [address] PCP - General Internal Medicine 01/29/21 documented as of this encounter
--- OUTSIDE RECORDS SUMMARY | 2024-04-10 13:40 | XMS_ITS | Encounter Summary ---
Author Organization [facility] Address [facility] [place] [address] Care Team Providers Care Home Care Companion Name Role Phone Kerry Ascencio Primary Care Provider + Encounter Details Date Type Department Care Team (Late st Contact Info) Description 02/27/2022 Refill Ophthalmology at [facility] [place] [address] Ant Rhoades MD [facility] [place] [address] Social History Tobacco Use Types Packs/Day Years [...] Notes * Telephone Encounter - Kitty Hurtado Fidelina - 02/27/2022 9:51 AM EDT Pt called in and stated that she is almost out of her drops from her cataract surgery and that [facility] wanted her to use one of the drops for an extra week but she does not remember which drop and there are no notes stating which drop she is supposed to use for a longer period in pts last office note -please review and contact pt to discuss - ok to leave a detailed message on pts VM as pt will not be home for part of the day documented in this encounter Plan of Treatment Upcoming Encounters Date Type Department Care Team (Late st Contact Info) Description 04/28/2024 1:40 PM EDT Office Visit Cardiology at [address] [phone] Cody Martinez MD [facility] [address] 05/27/2024 11:20 AM EDT Office Visit Dermatology at [address] [address] 06/13/2024 9:00 AM EDT [place] [address] Kelly Miller APRN [facility] [place] [address] 06/13/2024 10:00 AM EDT Laboratory Appointment Lab 3[place] [address] 06/13/2024 11:00 AM EDT Office [place] [address] Kelly Miller APRN [facility] [place] [address] 10/22/2024 10:30 AM EST Office Visit [place] [address] Marialuisa Peres MD [facility] [place] [address] documented as of this encounter Visit Diagnoses Not on filedocumented in this encounter Care Teams Home Care Companion Relationship Specialty Start Date End Date Yasewicz, Kerry C, PA [address] [place] [address] [place] [address] PCP - General Internal Medicine 01/29/21 documented as of this encounter
--- OUTSIDE RECORDS SUMMARY | 2024-04-10 13:40 | XMS_ITS | Encounter Summary ---
Author Organization [facility] Address [facility] [place] [address] Care Team Providers Care Stewardesses Teacher Name Role Phone Kerry Ascencio Primary Care Provider + Encounter Details Date Type Department Care Team (Late st Contact Info) Description 01/06/2022 Notes [place] [address] Patricia Jiang MD [facility] [place] [address] Social History Tobacco Use Types Packs/Day Years [...] as of this encounter Progress Notes * Patricia Jiang MD - 01/06/2022 8:13 AM EDT Pre-procedure note for needle breast biopsies performed in radiology. Procedure date: Today Procedure type: right breast ultrasound guided biopsy Allergies: Peanut; Raw fruit; Tree nut; Adhesive; Alcohol; Gum mastic; Hydrocodone; Methyl salicylate; Storax; Tetrabenazine; Amoxicillin; Dog dander; Milk; Morphine sulfate; Oxycodone-acetaminophen;Pollen extracts; Tetanus and diphtheria toxoids, adsorbed, adult; Benzoin; and Cat dander Medications: Current Outpatient Medications: ??? Gentle Laxative, bisacodyl, 5 mg Tablet, Delayed Release (E.C.), TAKE 1 TABLET ONCE DIRECTED, Disp: , Rfl: ??? budesonide-formoteroL (Symbicort) 160-4.5 mcg/actuation HFA Aerosol Inhaler, Symbicort 160 mcg-4.5 mcg/actuation HFA aerosol inhaler INHALE 2 PUFFS BY MOUTH TWICE DAILY, Disp: , Rfl: ??? albuteroL (ProAir HFA) 90 mcg/actuation HFA Aerosol Inhaler, every 5 hours., Disp: , Rfl: ??? topiramate (Topamax) 25 mg Tablet, , Disp: , Rfl: ??? aspirin 81 mg Tablet, Chewable, Take 81 mg by mouth daily., Disp: , Rfl: ??? dilTIAZem XR (Dilacor XR) 120 mg Capsule,Degradable Cnt Release, Take 1 capsule by mouth daily., Disp: 90 capsule, Rfl: 3 ??? Spiriva with HandiHaler 18 mcg Capsule, w/Inhalation Device, INHALE 1 DOSE IN THE MORNING AFTERBREO, Disp: , Rfl: ??? Anoro Ellipta 62.5-25 mcg/actuation Disk with Device, INHALE 1 PUFF BY MOUTH IN THE MORNING, Disp: , Rfl: ??? levothyroxine (Synthroid) 100 mcg Tablet, TAKE 1 TABLET BY MOUTH EVERY DAY, Disp: , Rfl: ??? ezetimibe (Zetia) 10 mg Tablet, Take 10 mg by mouth daily., Disp: , Rfl: ??? nitroGLYcerin (Nitrostat) 0.4 mg Tablet, Sublingual, Place 1 tablet under the tongue every 5 minutes as needed for Chest pain (may repeat x3,five minutes apart ,call 911 if chest pain remains)., Disp: 30 tablet, Rfl: 5 ??? celecoxib (CeleBREX) 100 mg Capsule, daily., Disp: , Rfl: ??? MECLIZINE HCL (MECLIZINE ORAL), Take by mouth as needed. Dose unknown, Disp: , Rfl: ??? cetirizine (ZYRTEC) 10 mg Tablet, Take 10 mg by mouth daily., Disp: , Rfl: ??? rosuvastatin (CRESTOR) 40 mg Tablet, Take 40 mg by mouth daily., Disp: , Rfl: ??? fluticasone-salmeterol (ADVAIR HFA) 115-21 mcg/actuation HFA Aerosol Inhaler, Inhale 2 puffs into the lungs 2 times daily., Disp: , Rfl: ??? acyclovir (ZOVIRAX) 200 mg Capsule, Take 200 mg by mouth as needed., Disp: , Rfl: 0 ??? clindamycin (CLEOCIN) 150 mg Capsule, Take 150 mg by mouth as needed., Disp: , Rfl: 0 ??? EPIPEN 2-JAKE 0.3 mg/0.3 mL Auto-Injector, Inject 1 Device as directed as needed., Disp: , Rfl: 0 ??? ibuprofen (ADVIL;MOTRIN) 800 mg Tablet, Take 800 mg by mouth 3 times daily as needed., Disp: , Rfl: 0 ??? topiramate (TOPAMAX) 50 mg Tablet, Take 50 mg by mouth daily., Disp: , Rfl: 0 ??? SUMAtriptan (IMITREX) 50 mg Tablet, Take 50 mg by mouth as needed., Disp: , Rfl: 0 ??? albuterol (PROVENTIL HFA;VENTOLIN HFA;PROAIR) 90 mcg/actuation HFA Aerosol Inhaler, Inhale 2 puffs into the lungs every 4 hours as needed for Wheezing. Use with spacer, Disp: , Rfl: ??? docusate sodium (COLACE) 250 mg capsule, Take by mouth., Disp: , Rfl: ??? citalopram (CELEXA) 20 mg tablet, , Disp: , Rfl: Anticoagulation status: low dose aspirin stopped on: N/A Imaging reviewed and procedural plan approved by Dr. PATRICIA JIANG MD documented in this encounter Plan of Treatment Upcoming Encounters Date Type Department Care Team (Late st Contact Info) Description 04/28/2024 1:40 PM EDT Office Visit Cardiology at [address] [phone] Cody Martinez MD [facility] [place] [address] 05/27/2024 11:20 AM EDT Office Visit Dermatology at [address] [place] [address] 06/13/2024 9:00 AM EDT Appointment Ultrasound at [place] [phone] Kelly Miller APRN [facility] [place] [address] 06/13/2024 10:00 AM EDT Laboratory Appointment Lab [address] [place] [phone] 06/13/2024 11:00 AM EDT Office [place] [phone] Kelly Miller DYE WEIGHER [facility] [place] [address] 10/22/2024 10:30 AM EST Office Visit Weight and Wellness at [place] [phone] Marialuisa Peres MD [facility] [place] [address] documented as of this encounter Visit Diagnoses Not on filedocumented in this encounter Care Teams Stewardesses Teacher Relationship Specialty Start Date End Date Kerry Ascencio PA [address] [place] [address] [place] [address] PCP - General Internal Medicine 01/29/21 documented as of this encounter
--- OUTSIDE RECORDS SUMMARY | 2024-04-10 13:40 | XMS_ITS | Encounter Summary ---
Author Organization [facility] Address [facility] [place] [address] Care Team Providers Care Barrer And Tacker Name Role Phone Kerry Ascencio Primary Care Provider + Encounter Details Date Type Department Care Team (Late st Contact Info) Description 04/19/2022 Telephone Ophthalmology at [facility] [place] [address] Ant Rhoades MD [facility] [place] [address] Social History Tobacco Use Types Packs/Day Years [...] * Telephone Encounter - Anita Segovia - 04/19/2022 4:43 PM EDT Patient called this afternoon to check the status of appointment. I told her it was being reviewed and someone would be in touch. Patient mentioned that Sunday appointments are best. * Telephone Encounter - Chanelle Calixto - 04/19/2022 1:[address] Lopez at [facility] called today, she saw patient recently, apparently patient stopped eye drops, and also declined to set follow-up appointment with us (last seen March 22). Dr. Lopez would like her to see us at least one more time, would like to discuss with you. Please call her at documented in this encounter Plan of Treatment Upcoming Encounters Date Type Department Care Team (Late st Contact Info) Description 04/28/2024 1:40 PM EDT Office Visit Cardiology at [address] [phone] Cody Martinez MD [facility] [place] [address] 05/27/2024 11:20 AM EDT Office Visit Dermatology at [address] [address] 06/13/2024 9:00 AM EDT [place] [phone] Kelly Miller AUDIT MANAGER [facility] [place] [address] 06/13/2024 10:00 AM EDT Laboratory Appointment Lab [address] [place] [phone] 06/13/2024 11:00 AM EDT Office [place] [phone] Kelly Miller AUDIT MANAGER [facility] [place] [address] 10/22/2024 10:30 AM EST Office Visit [place] [address] Marialuisa Peres MD [facility] [place] [address] documented as of this encounter Visit Diagnoses Not on filedocumented in this encounter Care Teams Barrer And Tacker Relationship Specialty Start Date End Date Kerry Ascencio PA [address] [place] [address] [place] [address] PCP - General Internal Medicine 01/29/21 documented as of this encounter
--- OUTSIDE RECORDS SUMMARY | 2024-04-10 13:40 | XMS_ITS | Encounter Summary ---
Author Organization [facility] Address [facility] [place] [address] Care Team Providers Care Workers Compensation Claims Specialist Name Role Phone Kerry Ascencio Primary Care Provider + Encounter Details Date Type Department Care Team (Latest Contact Info) Description 01/06/2022 9:33 AM EDT - 01/06/2022 11:59 PM EDT Hospital [place] [address] Jackie Parra MD [facility] [place] [address] Abnormal finding on breast imaging Discharge Disposition: [...] PM EDT Office Visit Cardiology at [address] [phone] Cody Martinez MD [facility] [place] [address] 05/27/2024 11:20 AM EDT Office Visit Dermatology at [address] [phone] 06/13/2024 9:00 AM EDT [place]oint[place] [phone] Kelly Miller APRN [facility] [place] [address] 06/13/2024 10:00 AM EDT Laboratory Appointment Lab 3[place] [phone] 06/13/2024 11:00 AM EDT Office [place] [address] Kelly Miller APRN [facility] [place] [address] 10/22/2024 10:30 AM EST Office Visit [place] [phone] Marialuisa Peres MD [facility] [place] [address] documented as of this encounter Procedures Procedure Name Priority Date/Time Associated Diagnosis Comments MAMMO DIAGNOSTIC WITHOUT CAD RIGHT Routine 01/06/2022 10:31 AM EDT Abnormal finding on breast imaging documented in this encounter Results * Mammo Diagnostic Without Cad Right (01/06/2022 10:31 AM EDT) Anatomical Region Laterality Modality Breast [...] who have questions please contact the health md do resident urgent care that requested your imaging first. ? Electronically signed by: Karen Julian MD, [facility] ([phone]), at 01/09/2022 3:57 PM Narrative 01/09/2022 3:57 [...] obtained using a 14-gauge automated device. A [employer] 14G marker clip was placed. The clip was in satisfactory position both sonographically and at follow-up cranio-caudal and true lateral digital mammography. COMPLICATIONS: None. PROCEDURAL ATTESTATION: Resident: None I performed the procedure without a resident. IMAGING DIFFERENTIAL DIAGNOSIS: Papilloma, ductal carcinoma in situ PATHOLOGIC DIAGNOSIS: Intraductal papilloma, sclerosing. No evidence of atypia. Jackie Grier MD IMG MAMM O ORDERABLES documented in this encounter Visit Diagnoses Diagnosis Abnormal finding on breast imaging Other (abnormal) findings on radiological examination of breast documented in this encounter Care Teams Workers Compensation Claims Specialist Relationship Specialty Start Date End Date Kerry Ascencio PA [address] [place] [address] [place] [address] PCP - General Internal Medicine 01/29/21 documented as of this encounter
--- OUTSIDE RECORDS SUMMARY | 2024-04-10 13:40 | XMS_ITS | Encounter Summary ---
Author Organization [facility] Address [facility] [place] [address] Care Team Providers Care Professor Of Practice Name Role Phone Kerry Ascencio Primary Care Provider + Reason for Visit * Reason Comments Procedure Encounter Details Date Type Department Care Team (Latest Contact Info) Description 02/03/2022 9:00 AM EDT Procedure visit Ophthalmology at [facility] [place] [address] Ant Rhoades MD [facility] [place] [address] Combined forms of age-related cataract of right eye Social History Tobacco Use Types Packs/Day Years [...] of this encounter Progress Notes * Ant Rhaodes MD - 02/03/2022 9:00 AM EDT Procedure visit, POM for cataract surgery documented in this encounter Plan of Treatment Upcoming Encounters Date Type Department Care Team (Late st Contact Info) Description 04/28/2024 1:40 PM EDT Office Visit Cardiology at [address] [phone] Cody Martinez MD [facility] [place] [address] 05/27/2024 11:20 AM EDT Office Visit Dermatology at [facility] [address] [place] [phone] 06/13/2024 9:00 AM ED[place] [address] Kelly Miller APRN [facility] [place] [address] 06/13/2024 10:00 AM EDT Laboratory Appointment Lab 3[place] [address] 06/13/2024 11:00 AM EDT Office [place] [address] Kelly Miller APRN [facility] [place] [address] 10/22/2024 10:30 AM EST Office [place] [address] Marialuisa Peres MD [facility] [place] [address] documented as of this encounter Procedures Procedure Name Priority Date/Time Associated Diagnosis Comments [id number] CALC BY LASER INTERFEROMETRY - OU - BOTH EYES Routine 02/07/2022 3:00 PM EDT Combined forms of age-related cataract of right eye documented in this encounter Results * [id number] Calc By Laser Interferometry - OU - Both Eyes (02/07/2022 3:00 PM EDT) Anatomical Region Laterality Modality Other Narrative 02/07/2022 3:00 PM EDT Physician PreOp Lens Selection Right Eye Style: [id number]. Power: 22.00. Target: plano. 02/07/2022. Left Eye Style: SN60WF. Power: 22.00. Target: plano. 02/07/2022. General Details Right Eye. Left Eye. Notes Patient Hx Past Medical Hx ??Pt. ??has a past medical history of Allergy, Amblyopia, Arthritis, Asthma, Carpal tunnel syndrome (09/15/2021), Cataract, COPD (chronic obstructive pulmonary disease), Depression, Dry mouth, Eye trauma (~1962), Eye trauma, Fatigue (09/15/2021), GERD (gastroesophageal reflux disease), Herpes, HLD (hyperlipidemia), HTN (hypertension), Hypothyroid, Migraine, Retinal detachment, Senile macular degeneration, Skin disease, and Trauma. Past Ophth Surg Hx ??No relevant surgical history has been documented for this patient. Eye Meds ??EPINEPHrine, SUMAtriptan, acyclovir, albuteroL, aspirin, celecoxib, cetirizine, citalopram, clindamycin, dilTIAZem XR, ezetimibe, ibuprofen, levothyroxine, meclizine HCl, nitroGLYcerin, rosuvastatin, senna-docusate, and topiramate IOL Biometry - Initial (source: [facility]) OD OS Date Performed 02/03/2022 12:04 PM 02/03/2022 12:04 PM ?? Target Refraction 0 0 ?? Axial Length 22.91 (mm) 22.98 (mm) ?? Anterior Chamber Depth 3.16 (mm) 2.96 (mm) ?? Horizontal White to White 11.74 (mm) 11.85 (mm) ?? Formula Used ? K's 44.00, 44.13, 44.35@178, 177, 180 / 46.00, 46.06, 46.17@088, 087, 090 44.25, 44.22, 44.35@004, 002, 176 / 45.50, 45.57, 45.73@094, 092, 086 ? Add'l Comments/Discrepancies/Concerns: POM done by [facility] on 02/03/2022 IOL-Master results: AL - OD: 22.93 mm ?? OS: 22.99 mm ACD - OD: 2.94 mm ?? OS: 2.94 mm WTW - OD: 11.70 mm ?? OS: 11.70 mm Ant Rhoades MD [facility] ES ORDERABLES documented in this encounter Visit Diagnoses Diagnosis Combined forms of age-related cataract of right eye Other and combined forms of senile cataract documented in this encounter Care Teams Professor Of Practice Relationship Specialty Start Date End Date Kerry Ascencio PA [address] [place] [address] [place] [address] PCP - General Internal Medicine 01/29/21 documented as of this encounter
--- OUTSIDE RECORDS SUMMARY | 2024-04-10 13:40 | XMS_ITS | Encounter Summary ---
[place] [address] Care Team Providers Care Patient Day Coordinator Name Role Phone Kerry Ascencio Primary Care Provider + Reason for Visit * Reason Onset Date Comments Hypertension 12/04/2022 PCP changed meds and I don't feel well Encounter Details Date Type Department Care Team (Late st Contact Info) Description 12/04/2022 Telephone Cardiology at [address] [phone] Aracely Tran, RN Hypertension (PCP changed meds and I don't feel well) Social History Tobacco Use Types Packs/Day Years [...] encounter Miscellaneous Notes * Telephone Encounter - Aracely Tran RN - 12/04/2022 9:13 AM EDT VM that PCP stopped Diltiazem and now her BP is all over the place and I don't feel well, Left yfd996/69 and Right arm 143/78 Chart reviewed. LV 01-11-22 with palpitations FUV 12-21-22 Call to pt who reports she is now on Verapamil 80 mg twice per day She now has a pulsing in her yazdanism, headache over her Left eye, Hr is 62-81, fluttering BP this morning is 138/119 before meds and after meds 109/66 She reports being very concerned about the difference in arm BP readings By not feeling well unable to give more description than as above. She agrees to call her PCP but did not commit to ED visit for CP Proper technique reviewed for monitoring BP Will route to past provider and one she is meeting in December Aracely Tran RN 4A Cardiology documented in this encounter Plan of Treatment Upcoming Encounters Date Type Department Care Team (Late st Contact Info) Description 04/28/2024 1:40 PM EDT Office Visit Cardiology at [address] [phone] Cody Martinez MD [facility] [place] [address] 05/27/2024 11:20 AM EDT Office Visit Dermatology at [address] [phone] 06/13/2024 9:00 AM EDT Appointment [place] [phone] Kelly Miller APPLICATION SECURITY ENGINEER [facility] [place] [address] 06/13/2024 10:00 AM EDT Laboratory Appointment Lab [address] [place] [phone] 06/13/2024 11:00 AM EDT Office Visit [place] [phone] Kelly Miller APRN [facility] [place] [address] 10/22/2024 10:30 AM EST Office Visit [place] [address] Marialuisa Peres MD [facility] [place] [address] documented as of this encounter Visit Diagnoses Not on filedocumented in this encounter Care Teams Patient Day Coordinator Relationship Specialty Start Date End Date Kerry Ascencio PA [address] [place] [address] [place] [address] PCP - General Internal Medicine 01/29/21 documented as of this encounter
--- OUTSIDE RECORDS SUMMARY | 2024-04-10 13:40 | XMS_ITS | Encounter Summary ---
Author Organization [facility] Address [facility] [place] [address] Care Team Providers Care Rural Carrier Name Role Phone Kerry Ascencio Primary Care Provider + Reason for Visit * Reason Comments Eye Problem Pain OD Encounter Details Date Type Department Care Team (Late st Contact Info) Description 03/21/2022 11:15 AM EDT Office [place] [address] Olman Davis MD [facility] [place] [address] Status post cataract extraction and insertion of intraocular lens, right; Eye pain, right Social History Tobacco Use Types Packs/Day [...] of this encounter Progress Notes * Aline Cervantes MD - 03/21/2022 11:15 AM EDT Visual Acuity (Snellen - Linear) Right Left Dist sc 5/200 E 20/50 Dist ph sc NI 20/40 Near cc 20/100 20/40 Assessment/Plan: Encounter Diagnoses Name Primary? Status post cataract extraction and insertion of intraocular lens, right ??? Eye pain, right Agatha Yi is a 61 y.o. female seen urgently with the following ophthalmic problems: R Eye Pain POM1 s/p CE IOL right eye done 02/20/2022: - 03/09/22: Had significant pain and injection from evening after cataract surgery until now. Initial thought was this was surface pain, then that it may be under treated inflammation. She is doing about the same after increasing the prednisolone drops. Principal symptom is pain. Possible this represents a neuropathic pain given that this has been present and persistent since surgery without significant change. Level of inflammation seen is not unexpected at this point postoperatively. Did get some momentary relief with proparacaine as well. No endophthalmitis or acutely concerning findings seen. - 03/21/22: Continued sharp waves pain since last seen. Acute onset of tearing and photosensitivity last night with fire red eye and worsening pain both at rest and with EOMs. Says the symptoms occureven without the drops. No relief with cycloplegic today. Unclear why patient experiencing persistent symptoms. No evidence of endophthalmitis or acutely concerning findings seen. Plan: - Continue PF QID - frequent AT between PF gtts - reassured about no infection seen - f/u with Dr. Rhoades tomorrow 03/22 Cataract left eye Visually significant. - Monitor with Dr. Rhoades Findings and concerns discussed with Agatha and they expressed understanding. Aline Cervantes MD [facility] Ophthalmology PGY2 [id number] I saw the patient with the following level of supervision from the attending: Direct from Dr. Davis. * Olman Davis MD - 03/21/2022 11:15 AM EDT I have seen the patient in person and reviewed the resident's history and I agree with the details as written. Pain OD not explained by exam. Try frequent ATs until appointment tomorrow with Dr. Rhoades. The assessment and plan were formulated in discussion with me and I agree with them as documented. Olman Davis MD documented in this encounter Plan of Treatment Upcoming Encounters Date Type Department Care Team (Late st Contact Info) Description 04/28/2024 1:40 PM EDT Office Visit Cardiology at [address] [phone] Cody Martinez MD [facility] [place] [address] 05/27/2024 11:20 AM EDT Office Visit Dermatology at [place] [address] [place] [phone] 06/13/2024 9:00 AM EDT [place] [address] Kelly Miller APRN [facility] [place] [address] 06/13/2024 10:00 AM EDT Laboratory Appointment Lab [place] [address] 06/13/2024 11:00 AM EDT Office [place] [phone] Kelly Miller APRN [facility] [place] [address] 10/22/2024 10:30 AM EST Office Visit [place] [address] Marialuisa Peres MD [facility] [place] [address] documented as of this encounter Visit Diagnoses Diagnosis Status post cataract extraction and insertion of intraocular lens, right Eye pain, right documented in this encounter Care Teams Rural Carrier Relationship Specialty Start Date End Date Kerry Ascencio PA [address] [place] [address] [place] [address] PCP - General Internal Medicine 01/29/21 documented as of this encounter
--- OUTSIDE RECORDS SUMMARY | 2024-04-10 13:40 | XMS_ITS | Encounter Summary ---
Author Organization [facility] Address [facility] [place] [address] Care Team Providers Care Sales Representative [employer] Name Role Phone Kerry Ascencio Primary Care Provider + Reason for Visit * Reason Onset Date Comments Eye Problem 02/28/2022 Post op drops Encounter Details Date Type Department Care Team (Late st Contact Info) Description 02/28/2022 Telephone Ophthalmology at [facility] [place] [address] Ant Rhoades MD [facility] [place] [address] Eye Problem (Post op drops) Social History Tobacco Use Types Packs/Day Years [...] Telephone Encounter - Conchita Mckeon COT - 03/03/2022 10:29 AM EDT Patient calling to report to [facility], she feeling the PF drops are the cause of pain, tearing and photophobia. She realized since talking with him, each time the PF drops are instilled, symptoms start and last a few hours and very debilitating. Then will slowly improve. Sent to [facility] for follow up. * Telephone Encounter - Coy Baldwin COMT - 03/02/2022 9:12 AM EDT Pt says her eye is a little sore this morning but yesterday was fine. No changes in vision, no discharge except tearing when eye is sore. * Telephone Encounter - Coy Baldwin COMT - 02/28/2022 4:51 PM EDT Pt reports her right eye has been irritated like sawdust since surgery, red and tearing and lightbothers it since this morning. We made a same-day visit for her today but pt was not able to make it in. She called back later. Pt reports redness and tearing are improved. Spoke to Dr Rhoades, then called pt. Verified the eye drops she is taking and how she is using them. Dr Rhoades wants her to stop ketorolac and continue pred and vigamox. I will call her in 2-3 days at [phone]. documented in this encounter Plan of Treatment Upcoming Encounters Date Type Department Care Team (Late st Contact Info) Description 04/28/2024 1:40 PM EDT Office Visit Cardiology at [address] [address] Cody Martinez MD [facility] [place] [address] 05/27/2024 11:20 AM EDT Office Visit Dermatology at [facility] [address] [place] [address] 06/13/2024 9:00 AM EDT Appointment [place] [address] Kelly Miller APRN [facility] [place] [address] 06/13/2024 10:00 AM EDT Laboratory Appointment Lab [address] [place] [phone] 06/13/2024 11:00 AM EDT Office Visit [place] [address] Kelly Miller APRN [facility] [place] [address] 10/22/2024 10:30 AM EST Office Visit Weight [place] [phone] Marialuisa Peres MD [facility] [address] documented as of this encounter Visit Diagnoses Not on filedocumented in this encounter Care Teams Sales Representative [employer] Relationship Specialty Start Date End Date Kerry Ascencio PA [address] [place] [address] [place] [address] PCP - General Internal Medicine 01/29/21 documented as of this encounter
--- OUTSIDE RECORDS SUMMARY | 2024-04-10 13:40 | XMS_ITS | Encounter Summary ---
Author Organization [facility] Address [facility] [place] [address] Care Team Providers Care Riveter Hand Name Role Phone Kerry Ascencio Primary Care Provider + Encounter Details Date Type Department Care Team (Latest Contact Info) Description 01/11/2022 10:00 AM EDT Office Visit Cardiology at [address] [phone] Cody Martinez MD [facility] [place] [address] ASCVD (arteriosclerotic cardiovascular disease); Atypical chest pain Social History Tobacco Use Types Packs/Day Years [...] Sign Reading Time Taken Comments Blood Pressure 127/62 01/11/2022 9:46 AM EDT Pulse 71 01/11/2022 9:46 AM EDT Temperature - - Respiratory Rate - - Oxygen Saturation 98% 01/11/2022 9:46 AM EDT Inhaled Oxygen Concentration - - Weight 83.4 kg (183 lb 12.8 oz) 01/11/2022 9:46 AM EDT Height 154.9 cm (5' 1) 01/11/2022 9:46 AM EDT R eported Body Mass Index 34.73 01/11/2022 9:46 AM EDT documented in this encounter Progress Notes * Cody Martinez MD - 01/11/2022 10:00 AM EDT Images from the original note were not included. [facility] [place] [address] CARDIOLOGY OUTPATIENT FOLLOW-UP NOTE Agatha Tamiko Yi [id number] PCP: GENE Crews 01/11/2022 PRIMARY CARE PROVIDER: GENE Crews PROBLEM LIST: Patient Active Problem List Diagnosis ??? Urticaria ??? Trochanteric bursitis of right [...] pain ?? Abnormal nuclear stress test at [facility] ?? Heart catheterization [facility] November 06, 2017 showing LVEDP of 20 mmHg; coronary angiography showing normal left main, mild diffuse disease in the LAD, normal circumflex, and mild diffuse disease in the RCA ?? Management with aspirin and atorvastatin ??? Benign paroxysmal positional vertigo ??? Seborrheic keratosis ??? Uterine leiomyoma MEDICATIONS: Current Outpatient Medications: ??? Gentle Laxative, bisacodyl, [...] 20 mg tablet, , Disp: , Rfl: SUBJECTIVE: This 61-year-old woman comes for follow-up visit. She has known coronary artery diseasealthough it is nonobstructive. She has never undergone percutaneous intervention. 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 She is still lacking taste and smelland has been very fatigued. At her last visit she was describing a dry cough suspected this was related to her lisinopril and recommended that she stop it. She had had a recent heart monitor demonstrating some SVT which appeared to be symptomatic (palpitations) and I recommended that she start diltiazem 120 mg daily. She comes today indicating that she is doing better. Her cough has abated. She says her palpitations are much better and essentially gone. She is having less or no chest pain. She is apparently scheduled for colonoscopy later this week and is also contemplating surgery upon her rotator cuff. ROS: No flowsheet data found. OBJECTIVE: Vital Signs: BP 127/62 (Patient Position: Sitting) Pulse 71 Ht 154.9 cm (5' 1) Comment: Reported Wt 83.4 kg (183 lb 12.8 oz) SpO2 98% BMI 34.73 kg/m?? Physical Exam: On exam she appeared in good health and spirits. Vital signs as documented. Skin warm and dry and without overt rashes. Neck without JVD. Lungs clear. Heart exam notable for regular rhythm, normal sounds and absence of murmurs, rubs or gallops. Abdomen unremarkable and without evidence of organomegaly, masses, or abdominal aortic enlargement. She had at most a trace of lower extremity edema. ASSESSMENT: She seems to be doing much better. Her palpitations have abated. Her cough has abated. Her chest pain also seems to have improved significantly. She seems to be in a good place now and I think it reasonable for her to go ahead with colonoscopy with little or no risk of cardiac complications. In the event that she should need orthopedic surgery for her rotator cuff injury, I also thinkthat this can be done with a little risk of cardiac complications. PLAN: 1. Continue current medications 2. Reasonable to proceed with both colonoscopy and, if clinically indicated, rotator cuff surgery, considering her at low risk of cardiac complications 3. Cardiology follow-up to reassess in 1 year documented in this encounter Plan of Treatment Upcoming Encounters Date Type Department Care Team (Late st Contact Info) Description 04/28/2024 1:40 PM EDT Office Visit Cardiology at [address] [address] Cody Martinez MD [facility] [place] [address] 05/27/2024 11:20 AM EDT Office Visit Dermatology at [facility] [address] [place] [address] 06/13/2024 9:00 AM EDT [place] [phone] Kelly Miller APRN [facility] [place] [address] 06/13/2024 10:00 AM EDT Laboratory Appointment Lab [address] [place] [address] 06/13/2024 11:00 AM EDT Office Visit Gastroenterology at [place] [phone] Kelly Miller [employer] [employer] [facility] [place] [address] 10/22/2024 10:30 AM EST Office Visit [place] [address] Marialuisa Peres MD [facility] [place] [address] documented as of this encounter Visit Diagnoses Diagnosis ASCVD (arteriosclerotic cardiovascular disease) Unspecified cardiovascular disease Atypical chest pain Other chest pain documented in this encounter Care Teams Riveter Hand Relationship Specialty Start Date End Date Kerry Ascencio PA [address] [place] [address] [place] [address] PCP - General Internal Medicine 01/29/21 documented as of this encounter
--- OUTSIDE RECORDS SUMMARY | 2024-04-10 13:40 | XMS_ITS | Encounter Summary ---
[facility] [place] [address] Care Team Providers Care Maternity Nurse Name Role Phone Kerry Ascencio Primary Care Provider + Encounter Details Date Type Department Care Team (Late st Contact Info) Description 01/30/2022 Telephone [place] [address] Aedla Bautista Social History Tobacco Use Types Packs/Day Years [...] encounter Miscellaneous Notes * Telephone Encounter - Adela Bautista - 01/30/2022 4:33 PM EDT Spoke with pt who stated she will complete COVID questionnaires tonight. documented in this encounter Plan of Treatment Upcoming Encounters Date Type Department Care Team (Late st Contact Info) Description 04/28/2024 1:40 PM EDT Office Visit Cardiology at [address] [address] Cody Martinez MD [facility] [place] [address] 05/27/2024 11:20 AM EDT Office Visit Dermatology at [place] [address] [place] [address] 06/13/2024 9:00 AM EDT [place] [phone] Kelly Miller APRN [facility] [place] [address] 06/13/2024 10:00 AM EDT Laboratory Appointment Lab [address] [place] [address] 06/13/2024 11:00 AM EDT Office [place] [address] Kelly Miller, [employer] SUPERINTEND[employer] [facility] [place] [address] 10/22/2024 10:30 AM EST Office Visit [place] [phone] Marialuisa Peres MD [facility] [place] [address] documented as of this encounter Visit Diagnoses Not on filedocumented in this encounter Care Teams Maternity Nurse Relationship Specialty Start Date End Date Kerry Ascencio PA [address] [place] [address] JENI MUNOZ [address] PCP - General Internal Medicine 01/29/21 documented as of this encounter
--- OUTSIDE RECORDS SUMMARY | 2024-04-10 13:40 | XMS_ITS | Encounter Summary ---
Author Organization [facility] Address [facility] [place] [address] Care Team Providers Care Complaint Clerk Name Role Phone Kerry Ascencio Primary Care Provider + Encounter Details Date Type Department Care Team (Late st Contact Info) Description 01/03/2022 Telephone Cardiology at [address] [address] Cody Martinez MD [facility] [place] [address] Social History Tobacco Use Types Packs/Day Years [...] Miscellaneous Notes * Telephone Encounter - Ally Meza RN - 01/03/2022 1:10 PM EDT Reviewed 12/21/21 echo results with pradeep Palma . Contacted Agtaha regarding this-she was appreciative of the call and expresses good understanding. Seeing Dr Martinez in follow up 01/11/22. documented in this encounter Plan of Treatment Upcoming Encounters Date Type Department Care Team (Late st Contact Info) Description 04/28/2024 1:40 PM EDT Office Visit Cardiology at [address] [phone] Cody Martinez MD [facility] [place] [address] 05/27/2024 11:20 AM EDT Office Visit Dermatology at [address] [phone] 06/13/2024 9:00 AM EDT Appointment Ultrasound at [place] [phone] Kelly Miller APRN [facility] [place] [address] 06/13/2024 10:00 AM EDT Laboratory Appointment Lab [address] [place] [address] 06/13/2024 11:00 AM EDT Office Visit Gastroenterology at [place] [phone] Kelly Miller APRN [facility] [place] [place] [address] 10/22/2024 10:30 AM EST Office Visit [place] [address] Marialuisa Peres MD [facility] [place] [phone] documented as of this encounter Visit Diagnoses Not on filedocumented in this encounter Care Teams Complaint Clerk Relationship Specialty Start Date End Date Kerry Ascencio PA [address] [place] [address] [place] [address] PCP - General Internal Medicine 01/29/21 documented as of this encounter
--- OUTSIDE RECORDS SUMMARY | 2024-04-10 13:40 | XMS_ITS | Encounter Summary ---
[facility] [place] [address] Care Team Providers Care Shackler Name Role Phone Kerry Ascencio Primary Care Provider + Encounter Details Date Type Department Care Team (Late st Contact Info) Description 01/19/2022 Telephone [place] [phone] Luann Martinez, RN Social History Tobacco Use Types Packs/Day [...] encounter Miscellaneous Notes * Telephone Encounter - Luann Martinez RN - 01/19/2022 2:27 PM EDT Agatha Yi was seen in the General Surgery Clinic on 01/03/22 to be evaluated for right nippledischarge. She has since had a right breast biopsy with benign findings. Agatha called the clinic today to report she noticed a small amount (probably less than a teaspoon) of bright red blood from her right nipple this morning on her t-shirt. She denies any purulent drainage, breast pain, skin changes, fevers or chills. She denies active bleeding. I discussed Agatha's concerns with Lamar Moya APRN. I called Agatha with Lamar's recommendation to continue to monitor for continued or increased bleeding, skin changes or signs/symptoms of infection (fever, chills, redness, localized pain or purulent drainage). Agatha agrees with this plan and will call with any additional questions or concerns. She was appreciative of the return phone call. documented in this encounter Plan of Treatment Upcoming Encounters Date Type Department Care Team (Late st Contact Info) Description 04/28/2024 1:40 PM EDT Office Visit Cardiology at [address] [phone] Cody Martinez MD [facility] [place] [address] 05/27/2024 11:20 AM EDT Office Visit Dermatology at [address] [address] 06/13/2024 9:00 AM EDT Appointment [place] [phone] Kelly Miller APRN [facility] [place] [address] 06/13/2024 10:00 AM EDT Laboratory Appointment Lab [address] [place] [address] 06/13/2024 11:00 AM EDT Office Visit [place] [phone] Kelly Miller APRN [facility] [place] [address] 10/22/2024 10:30 AM EST Office Visit Weight [place] [address] Marialuisa Peres MD [facility] [place] [address] documented as of this encounter Visit Diagnoses Not on filedocumented in this encounter Care Teams Shackler Relationship Specialty Start Date End Date Kerry Ascencio PA [address] [place] [address] [place] [address] PCP - General Internal Medicine 01/29/21 documented as of this encounter
--- OUTSIDE RECORDS SUMMARY | 2024-04-10 13:40 | XMS_ITS | Encounter Summary ---
Author Organization Pending [facility] To [facility] Address [facility] [place] [address] Care Team Providers Care Pump Rebuilder Name Role Phone Kerry sAcencio Primary Care Provider + Reason for Visit * Reason Comments Glaucoma Suspect Encounter Details Date Type Department Care Team (Late st Contact Info) Description 01/11/2022 12:30 PM EDT Office Visit Ophthalmology at [facility], [place], operated by [facility] [address] Ant Rhoades MD [facility] [place] [address] Combined forms of age-related cataract of right eye; Visual disturbance Social History Tobacco Use Types Packs/Day Years [...] Progress Notes * Ant Rhoades MD - 01/11/2022 12:30 PM EDT Agatha Yi is a 61 y.o. female referred by Dr Harrison d/t abnormal visual field. Visual disturbances, longstanding Hx flashes and floaters OD. Recent hx subjective visual field cut. Examination by Neuro-ophthalmology on 10/26/2021 and Retina on 11/23/2021 did not reveal any overt medical issues. IOP good (14) HVF scattered defects not consistent with glaucoma Cataract Both eyes: Visually significant- likley the cause of most of her visual symptoms. Affecting Agatha Yi's daily activities Would likely benefit from CE IOL OD, we will get the right eye cataract taken care of and consider surgery in the left eye if needed after the right eye has healed. R/B/A discussed with Agatha Yi and she would like to proceed with cataract extraction right eye Goal plano Conventional lens Plan: Return for tech-only POMs RTC: Schedule cataract surgery right eye documented in this encounter Plan of Treatment Upcoming Encounters Date Type Department Care Team (Late st Contact Info) Description 04/28/2024 1:40 PM EDT Office Visit Cardiology at [address] [phone] Cody Martinez MD [facility] [place] [address] 05/27/2024 11:20 AM EDT Office Visit Dermatology at [address] [phone] 06/13/2024 9:00 AM EDT Appointment [place] [address] Kelly Miller APRN [facility] [place] [address] 06/13/2024 10:00 AM EDT Laboratory Appointment Lab [address] [place] [phone] 06/13/2024 11:00 AM EDT Office Visit [place] [phone] Kelly Miller APRN [facility] [place] [address] 10/22/2024 10:30 AM EST Office Visit Weight [place] [address] Marialuisa Peres MD [facility] [place] [address] documented as of this encounter Procedures Procedure Name Priority Date/Time Associated Diagnosis Comments OCT OPTIC NERVE - OU - BOTH EYES Routine 01/12/2022 9:27 AM EDT Visual disturbance PACHYMETRY - OU - BOTH EYES Routine 01/12/2022 9:26 AM EDT Visual disturbance AUTOMATED VISUAL FIELD - EXTENDED - OU- BOTH EYES Routine 01/12/2022 9:26 AM EDT Visual disturbance documented in this encounter Results * Oct Optic Nerve - OU - Both Eyes (01/12/2022 9:27 AM EDT) Anatomical Region Laterality Modality Other Narrative 01/12/2022 9:27 AM EDT Right Eye Quality was good. Progression has no prior data. Left Eye Quality was good. Progression has no prior data. Notes Optic nerve report G = 110 OD G = 110 OS within normal limits OU Interpretation: normal Ant Rhoades MD OPHTHALMOLOGY SERVIC ES ORDERABLES * Pachymetry - OU - Both Eyes (01/12/2022 9:26 AM EDT) Anatomical Region Laterality Modality Other Narrative 01/12/2022 9:26 AM EDT OD = 556 OS = 579 Interpretation: above average thickness Ant Rhoades MD OPHTHALMOLOGY SERVIC ES ORDERABLES * Automated Visual Field - Extended - OU - Both Eyes (01/12/2022 9:26 AM EDT) Anatomical Region Laterality Modality Other Narrative 01/12/2022 9:26 AM EDT Right Eye Threshold was 24-2. Strategy was YASMIN. Left Eye Threshold was 24-2. Strategy was YASMIN. Notes Visual Field Results Type of VF: ??HVF 24-2 Indication: ??Visual disturbance Reliability: ??Low OS Glaucoma Hemifield Test (GHT) OD: outside normal limits OS: outside normal limits Visual Function Index (VFI) OD: 76 % OS: 90 % MD OD: -9.80 dB ??PSD OD: 7.40 dB MD OS: -5.88 dB ??PSD OS: 4.70 dB Interpretation: scattered defects not consistent with glaucoma Ant Rhoades MD OPHTHALMOLOGY SERVIC ES ORDERABLES documented in this encounter Visit Diagnoses Diagnosis Combined forms of age-related cataract of right eye Other and combined forms of senile cataract Visual disturbance Unspecified visual disturbance documented in this encounter Care Teams Pump Rebuilder Relationship Specialty Start Date End Date Kerry Ascencio PA [address] [place] [address] [place] [address] PCP - General Internal Medicine 01/29/21 documented as of this encounter
--- OUTSIDE RECORDS SUMMARY | 2024-04-10 13:40 | XMS_ITS | Encounter Summary ---
Author Organization [facility] Address [facility] [place] [address] Care Team Providers Care Bi Report Developer Name Role Phone Kerry Ascencio Primary Care Provider + Encounter Details Date Type Department Care Team (Late st Contact Info) Description 03/03/2022 Telephone Ophthalmology at [facility] [place] [address] Ant Rhoades MD [facility] [place] [address] Social History Tobacco Use Types Packs/Day Years [...] encounter Miscellaneous Notes * Telephone Encounter - Coy Baldwin COMT - 03/03/2022 5:06 PM EDT Spoke to Dr Rhoades, then called pt. He wants her to use pred (white top) two times per day for 7 days, then stop. She has already stopped Ketorolac (heard top) and she should continue ofloxacin (pagan top) until it runs out. documented in this encounter Plan of Treatment Upcoming Encounters Date Type Department Care Team (Late st Contact Info) Description 04/28/2024 1:40 PM EDT Office Visit Cardiology at [address] [phone] Cody Martinez MD [facility] [place] [address] 05/27/2024 11:20 AM EDT Office Visit Dermatology at [place] [address] [place] [phone] 06/13/2024 9:00 AM EDT Appointment [place] [address] Kelly Miller APRN [facility] [place] [address] 06/13/2024 10:00 AM EDT Laboratory Appointment Lab [address] [place] [address] 06/13/2024 11:00 AM EDT Office Visit [place] [address] Kelly Miller APRN [facility] [place] [address] 10/22/2024 10:30 AM EST Office Visit Weight [place] [address] Marialuisa Peres MD [facility] FAMILY MEDICINE [place], [place] [phone] documented as of this encounter Visit Diagnoses Not on filedocumented in this encounter Care Teams Bi Report Developer Relationship Specialty Start Date End Date Kerry Ascencio PA NPI: [id number] [place] [address] [place] [address] PCP - General Internal Medicine 01/29/21 documented as of this encounter
--- OUTSIDE RECORDS SUMMARY | 2024-04-10 13:40 | XMS_ITS | Encounter Summary ---
Author Organization [facility] [place] [address] Care Team Providers Care Stage Settings Painter Name Role Phone Kerry Ascencio Primary Care Provider + Encounter Details Date Type Department Care Team (Late st Contact Info) Description 08/11/2022 Ancillary Procedure [place] [address] Kerry Ascencio PA [address] [place] [address] [place], [place] [address] Social History Tobacco Use Types Packs/Day Years [...] 1:40 PM EDT Office Visit Cardiology at [address] [phone] Cody Martinez MD [facility] [place] [address] 05/27/2024 11:20 AM EDT Office Visit Dermatology at [facility] [address] [place] [address] 06/13/2024 9:00 AM EDT [place]oint[place] [phone] Kelly Miller APRN [facility] [place] [address] 06/13/2024 10:00 AM EDT Laboratory Appointment Lab [address] [place] [phone] 06/13/2024 11:00 AM EDT Office [place] [phone] Kelly Miller APRN [facility] [place] [address] 10/22/2024 10:30 AM EST Office Visit [place] [phone] Marialuisa Peres MD [facility] [place] [address] documented as of this encounter Procedures Procedure Name Priority Date/Time Associated Diagnosis Comments FILM LIBRARY STORAGE ONLY MR SHOULDER Routine 08/11/2022 12:00 AM EST documented in this encounter Results * Film Library- Storage Only MR Shoulder (08/11/2022 12:00 AM EST) Narrative [facility] - 08/08/2023 11:11 AM EST This exam is auto-finalizing. It's purpose is for storage only. Kerry MILLS IMFidelina FILM LIBRARY ORDERABLES [place], [place] documented in this encounter Visit Diagnoses Not on filedocumented in this encounter Care Teams Stage Settings Painter Relationship Specialty Start Date End Date Kerry Ascencio PA [address] [place] [address] [place] [address] PCP - General Internal Medicine 01/29/21 documented as of this encounter
--- OUTSIDE RECORDS SUMMARY | 2024-04-10 13:40 | XMS_ITS | Encounter Summary ---
Author Organization [facility] Address [facility] [place] [address] Care Team Providers Care Leather Cartridge Belt Maker Name Role Phone Kerry Ascencio Primary Care Provider + Reason for Visit * Reason Comments Post Op Eye Pain Encounter Details Date Type Department Care Team (Late st Contact Info) Description 03/09/2022 2:00 PM EDT Office [place] [address] Tiny Vargas MD [facility] [place] [address] Status post cataract extraction and insertion of [...] Progress Notes * Devin Green MD - 03/09/2022 2:00 PM EDT Visual Acuity (Snellen) Right Left Dist sc 20/400 +1 20/40 Dist ph sc 20/150 NI Near cc 20/400 20/30 Correction: Glasses +2.50 Assessment/Plan: Encounter Diagnoses Name Primary? Status post cataract extraction and insertion of intraocular lens, right ??? Eye pain, right Agatha Yi is a 61 y.o. female seen urgently with the following ophthalmic problems: R Eye Pain POD17 S/p CE IOL right eye done 02/20/2022: Had significant pain and injection from evening after cataract surgery until now. Initial thought was this was surface pain, then that it may be under treated inflammation. She is doing about the same after increasing the prednisolone drops. Principal symptom is pain. Possible this represents a neur opathic pain given that this has been present and persistent since surgery without significant change. Level of inflammation seen is not unexpected at this point postoperatively. Did get some momentary relief with proparacaine as well. No endophthalmitis or acutely concerning findings seen. Plan: - Taper PF to QID OD and continue until follow up in 2 weeks with [facility] - Reassured about no infection seen - Return precautions discussed Cataract left eye Visually significant. - Monitor with Dr. Rhoades Findings and concerns discussed with Agatha and they expressed understanding. RTC in 2 weeks as scheduled with [facility] for re-check/1 mo hck -- Devin Green MD PGY-2, Ophthalmology Resident #[id number] 03/09/2022 3:25 PM I saw the patient with the following level of supervision from the attending: Direct from Dr. Vargas. * Tiny Vargas MD - 03/09/2022 2:00 PM EDT I have seen the patient in person and reviewed the resident's above history and I agree with the details as written. The assessment and plan were formulated in discussion with me and I have edited the history, exam, and assessment/plan where appropriate and agree with them as documented. documented in this encounter Plan of Treatment Upcoming Encounters Date Type Department Care Team (Late st Contact Info) Description 04/28/2024 1:40 PM EDT Office Visit Cardiology at [address] [address] Cody Riley MD [facility] [place] [address] 05/27/2024 11:20 AM EDT Office Visit Dermatology at [place] [address] [place] [address] 06/13/2024 9:00 AM EDT Appointment Ultrasound at [place] [phone] Kelly Miller APRN [facility] [place] [address] 06/13/2024 10:00 AM EDT Laboratory Appointment Lab [address] [phone] 06/13/2024 11:00 AM EDT Office [place] [address] Kelly Miller, DEVELOPMENTAL BEHAVIORAL PHYSICIAN [facility] [place] [address] 10/22/2024 10:30 AM EST Office Visit [place] [phone] Marialuisa Peres MD [facility] [place] [address] documented as of this encounter Visit Diagnoses Diagnosis Status post cataract extraction and insertion of intraocular lens, right Eye pain, right documented in this encounter Care Teams Leather Cartridge Belt Maker Relationship Specialty Start Date End Date Kerry Ascencio PA [address] [place] [address] [place] [address] PCP - General Internal Medicine 01/29/21 documented as of this encounter
--- OUTSIDE RECORDS SUMMARY | 2024-04-10 13:40 | XMS_ITS | Encounter Summary ---
Author Organization [facility] Address [facility] [place] [address] Care Team Providers Care Manager Retail Name Role Phone Kerry Ascencio Primary Care Provider + Reason for Visit * Reason Comments Post Op CE/IOL OD Encounter Details Date Type Department Care Team (Late st Contact Info) Description 03/22/2022 7:45 AM EDT Office Visit Ophthalmology at [facility] [place], operated by [facility] [place] [address] Ant Rhoades MD [facility] [place] [address] Status post cataract extraction and insertion of [...] this encounter Patient Instructions * Patient Instructions* Ant Rhoades MD - 03/22/2022 7:45 AM EDT Prednisolone 1 drop 3 times a day Start: Bromfenac 2 times a day documented in this encounter Progress Notes * Ant Rhoades MD - 03/22/2022 7:45 AM EDT POM1 s/p CE/IOL right eye done 02/20/2022: Normal postoperative appearance Mild irits still present. Pain and injection almost every day since [...] not consistent with glaucoma Cataract left eye: Observe Plan: Prednisolone 1 drop 3 times a day ?? Start: Bromfenac 2 times a day RTC: 1 week, IOP documented in this encounter Plan of Treatment Upcoming Encounters Date Type Department Care Team (Late st Contact Info) Description 04/28/2024 1:40 PM EDT Office Visit Cardiology at [address] [phone] Cody Martinez MD [facility] [place] [address] 05/27/2024 11:20 AM EDT Office Visit Dermatology at [place] [address] [place] [address] 06/13/2024 9:00 AM EDT Appoint[place] [address] Kelly Miller APRN [facility] [place] [address] 06/13/2024 10:00 AM EDT Laboratory Appointment Lab [address] [place] [address] 06/13/2024 11:00 AM EDT Office [place] [address] Kelly Miller APRN [facility] [place] [address] 10/22/2024 10:30 AM EST Office Visit [place] [phone] Marialuisa Peres MD [facility] [place] [address] documented as of this encounter Visit Diagnoses Diagnosis Status post cataract extraction and insertion of intraocular lens, right Eye pain, right documented in this encounter Care Teams Manager Retail Relationship Specialty Start Date End Date Kerry Ascencio PA [address] [place] [address] [place] [address] PCP - General Internal Medicine 01/29/21 documented as of this encounter
--- OUTSIDE RECORDS SUMMARY | 2024-04-10 13:40 | XMS_ITS | Encounter Summary ---
Author Organization [facility] Address [facility] [place] [address] Care Team Providers Care Actuarial Analyst Name Role Phone Kerry Ascencio Primary Care Provider + Encounter Details Date Type Department Care Team (Late st Contact Info) Description 01/16/2022 Telephone Ophthalmology at [facility] [place] [address] Ant Rhoades MD [facility] [place] [address] Social History Tobacco Use Types Packs/Day Years [...] * Telephone Encounter - Kitty Hurtado - 01/17/2022 3:49 PM EDT Scheduled per Chanelle * Telephone Encounter - Kitty Hurtado - 01/16/2022 10:41 AM EDT Return for tech-only POMs documented in this encounter Plan of Treatment Upcoming Encounters Date Type Department Care Team (Late st Contact Info) Description 04/28/2024 1:40 PM EDT Office Visit Cardiology at [place] [phone] Cody Martinez MD [facility] [place] [address] 05/27/2024 11:20 AM EDT Office Visit Dermatology at [place] [address] [place] [address] 06/13/2024 9:00 AM EDT [place] [address] Kelly Miller APRN [facility] [place] [address] 06/13/2024 10:00 AM EDT Laboratory Appointment Lab [address] [address] 06/13/2024 11:00 AM EDT Office [place] [address] Kelly Miller APRN [facility] [place] [address] 10/22/2024 10:30 AM EST Office Visit [place] [address] Marialuisa Peres MD [facility] [place] [address] documented as of this encounter Visit Diagnoses Not on filedocumented in this encounter Care Teams Actuarial Analyst Relationship Specialty Start Date End Date Kerry Ascencio PA [address] [place] [address] [place] [address] PCP - General Internal Medicine 01/29/21 documented as of this encounter
--- OUTSIDE RECORDS SUMMARY | 2024-04-10 13:40 | XMS_ITS | Encounter Summary ---
Author Organization [facility] [place] [address] Care Team Providers Care Fire Chief'S Aide Name Role Phone Kerry Ascencio Primary Care Provider + Encounter Details Date Type Department Care Team (Late st Contact Info) Description 11/16/2022 Ancillary Procedure [place] [address] Kerry Ascencio PA [address] [place] [address] [place], [place] [address] Social History Tobacco Use Types Packs/Day Years [...] 1:40 PM EDT Office Visit Cardiology at [address] [phone] Cody Martinez MD [facility] [place] [address] 05/27/2024 11:20 AM EDT Office Visit Dermatology at [facility] [address] [place] [address] 06/13/2024 9:00 AM EDT Appointment [place] [phone] Kelly Miller APRN [facility] [place] [address] 06/13/2024 10:00 AM EDT Laboratory Appointment Lab [address] [place] [phone] 06/13/2024 11:00 AM EDT Office Visit [place] [address] Kelly Miller APRN [facility] [place] [address] 10/22/2024 10:30 AM EST Office Visit Weight [place] [address] Marialuisa Peres MD [facility] [place] [address] documented as of this encounter Procedures Procedure Name Priority Date/Time Associated Diagnosis Comments FILM LIBRARY STORAGE ONLY ULTRASOUND STUDY Routine 11/16/2022 12:00 AM EST documented in this encounter Results * Film Library- Storage Only Ultrasound Study (11/16/2022 12:00 AM EST) Narrative [facility] - 04/30/2023 9:04 PM EDT This exam is auto-finalizing. It's purpose is for storage only. eKrry MILLS IMFidelina FILM LIBRARY ORDERABLES [place], [place] documented in this encounter Visit Diagnoses Not on filedocumented in this encounter Care Teams Fire Chief'S Aide Relationship Specialty Start Date End Date Kerry sAcencio PA [address] [place] [address] [place] [address] PCP - General Internal Medicine 01/29/21 documented as of this encounter
--- OUTSIDE RECORDS SUMMARY | 2024-04-10 13:40 | XMS_ITS | Encounter Summary ---
Author Organization [facility] Address [facility] [place] [address] Care Team Providers Care Child Care Counselor Name Role Phone Kerry Ascencio Primary Care Provider + Reason for Visit * Auth/Cert Specialty Diagnoses / Procedures Referred By Clari dickey Referred To Contact Diagnoses Cataract Procedures PRO EXTRACAPSULAR CATARACT RMVL INSERTION IO LENS PROSTH W/O ECP CATARACT EXTRACTION, EXTRACAPSULAR, W/ LENS INSERTION (WRVU 8.52) Referral ID Status Reason Start Date Expiration Date Visits Re quested Visits Authorized [id number] 1 1 Encounter Details Date Type Department Care Team (Latest Contact Info) Description 02/20/2022 1:24 PM EDT - 02/20/2022 3:26 PM EDT Hospital Encounter Outpatient Surgery Center Counts Include [address] Beds At [facility] [address] Ant Rhoades MD [facility] [place] [address] Combined forms of age-related cataract of right eye Discharge Disposition: Home Social History Tobacco Use [...] Sign Reading Time Taken Comments Blood Pressure 122/70 02/20/2022 3:15 PM EDT Pulse 63 02/20/2022 3:15 PM EDT Temperature 36.7 ??C (98.1 ??F) 02/20/2022 3:15 PM ED T Respiratory Rate 15 02/20/2022 3:07 PM EDT Oxygen Saturation 95% 02/20/2022 3:15 PM EDT Inhaled Oxygen Concentration - - [...] Rhoades M.D. Section of ophthalmology [facility] [phone] - Wear either the eye shield or glasses of any kind for the first 24 hours after surgery. -Do not rub your eye. -No swimming or hot tubs for 1 month after surgery. - The surgery center nurses should confirm time of your follow up appointment for tomorrow with . This appointment will be at the Eye Clinic in the main building at [facility] - Mild discomfort is normal, but if you have any severe eye pain or bleeding call [phone] and ask to speak to the eye doctor vascular sonographer. - Call you Primary Care Doctor or [...] 5pm or on a weekend: Call the [facility] board lining machine operator and ask for the physician vascular sonographer covering for your doctor. documented in this [...] The sedation plan was reviewed with Agatha Yi and she expressed understanding and agreement. REFERENCES: [...] - 02/20/2022 3:00 PM EDT [facility] [place] Note Patient Name: Agatha Yi : [id number] MR#: [id number] Case Date: 02/20/2022 Surgeon: Surgeon(s) and Role: [...] 1:40 PM EDT Office Visit Cardiology at [address] [phone] Cody Martinez MD [facility] [place] [address] 05/27/2024 11:20 AM EDT Office Visit Dermatology at [address] [phone] 06/13/2024 9:00 AM EDT [place] [phone] Kelly Miller APRN [facility] [place] [address] 06/13/2024 10:00 AM EDT Laboratory Appointment Lab [address] [place] [phone] 06/13/2024 11:00 AM EDT Office [place] [phone] Kelly Miller APRN [facility] [place] [address] 10/22/2024 10:30 AM EST Office Visit [place] [address] Marialuisa Peres MD [facility] [place] [address] documented as of this encounter Procedures Procedure Name Priority Date/Time Associated Diagnosis Comments Extracapsular Cataract Rmvl Insertion Io Lens Prosth W/O Ecp (96553) 02/20/2022 2:54 PM EDT Combined forms of [...] Given 02/20/2022 2:22 PM EDT 1 drop ketorolac tromethamine (Acular) 0.5 % ophthalmic solution [...] 2:35 PM EDT 1,000 mLs 100 mL/hr moxifloxacin (Vigamox) 0.5 % ophthalmic solution 1 [...] RN) documented in this encounter Care Teams Child Care Counselor Relationship Specialty Start Date End Date Kerry Ascencio PA [address] [place] [id number] PCP - General Internal Medicine 01/29/21 documented as of this encounter
--- OUTSIDE RECORDS SUMMARY | 2024-04-10 13:41 | XMS_ITS | Encounter Summary ---
Author Organization [facility] [place] [address] Care Team Providers Care Bead Filler Name Role Phone Kerry Ascencio Primary Care Provider + Reason for Referral * Diagnostic Test (Routine) - Closed Specialty Diagnoses / Procedures Referred By Clari dickey Referred To Contact Cardiology Diagnoses ASCVD (arteriosclerotic cardiovascular disease) Procedures Echocardiogram Transthoracic([facility]) Robert Pimentel APRN [facility] [place] [address] [facility] [place] [address] Referral ID Status Reason Start Date Expiration Date V isits Requested Visits Authorized [id number] Closed Specialty Service Requested 09/19/2021 09/19/2022 1 1 * Diagnostic Test (Routine) - Closed Specialty Diagnoses / Procedures Referred By Clari dickey Referred To Contact Cardiology Diagnoses Lightheadedness Chest pressure Procedures Ziopatch 48 Hrs-15 Days Robert Pimentel APRN [facility] [place] [address] [facility] [place] [address] Referral ID Status Reason Start Date Expiration Date V isits Requested Visits Authorized [id number] Closed Specialty Service Requested 09/19/2021 12/18/2021 1 1 Reason for Visit * Consultation (Routine) - Closed Specialty Diagnoses / Procedures Referred By Clari dickey Referred To Contact Cardiology Diagnoses Chest pain overdue for f/up- h/o non-obstructive CAD on ASA, rosuvastatin, zetia, lisinopril, former smoker(quit 1979). s/p admission 08/30/21 @[place] for chest pain improved w/ nitro cardiac w/up negative. (last seen telehlth 02/10/20-[facility]) Kerry Ascencio PA [address] [place] [address] [place] [address] Cody Martinez MD [facility] [place] [address] Referral ID Status Reason Start Date Expiration Date Visits Re quested Visits Authorized [id number] Closed 09/08/2021 09/08/2022 1 1 Encounter Details Date Type Department Care Team (Latest Contact Info) Description 09/19/2021 10:40 AM EST Office Visit Cardiology at [address] [phone] Robert Pimentel APRN [facility] [place] [address] ASCVD (arteriosclerotic cardiovascular disease); Hypertension, unspecified type; Lightheadedness; Chest pressure Social History Tobacco Use Types Packs/Day Years [...] Sign Reading Time Taken Comments Blood Pressure 132/79 09/19/2021 10:30 AM EST Pulse 81 09/19/2021 10:30 AM EST Temperature - - Respiratory Rate - - Oxygen Saturation 97% 09/19/2021 10:30 AM EST Inhaled Oxygen Concentration - - Weight 82.1 kg (181 lb) 09/19/2021 10:30 AM EST Height 154.9 cm (5' 1) 09/19/2021 10:30 AM EST Body Mass Index 34.2 09/19/2021 10:30 AM EST documented in this encounter Progress Notes * Robert Pimentel T, [employer] - 09/19/2021 10:40 AM EST Images from the original note were not included. [facility] [place] [address] GENERAL CARDIOLOGY FOLLOW-UP Subjective: CC: Follow up of chest pain + Urgent care visit last week HPI: Agatha Yi is a 61 y.o. female with past cardiac history significant for: 1. ASCVD: H/o abnormal nuclear stress with [facility] 10/2017 with nml Lmain, mild diffuse LAD, nml LCx, mild diffuse RCA 2. HTN 3. HLD Other PMH notable for: Hypothyroidism Interim: Last seen by Dr. Martinez via telehealth 01/2021, at which time chest pain was atypical, no changes made. Has been having chest pain recently, for which she was seen at [facility] and monitored overnight overnight in August with negative work up. She had a nuclear stress test on 09/06/21, which did not show any ischemia or infarct, with normal LV function. She was then instructed by our supervisor research kennel to proceed to Urgent Care to be evaluated on 09/14/21 for chest pains- I do not have therecords, but she reports that her EKG was normal and she declined blood work given her appt today. Today: She reports that in the past she has had sharp, fleeting chest pains, but the discomfort shehas been feeling in the past several weeks has been more of a pressure/tightness. The episode that prompted her visit to [facility] in Aug lasted hours- troponin trended and was negative and EKG was withoutischemic changes at the time. She has had additional episodes which have not been quite as severe. S he describes a mild chest tightness during our visit today. She also reports lightheadedness and dizziness for one month, which usually only occurs with head movements but has occasionally occurred during chest pressure episodes. She has discussed this with her PCP, felt to be vertigo at the time. She reports a family history of WI, CVA, and carotid stenosis. She has had one episode of dyspnea occurring at rest and associated with chest pressure, which prompted her Urgent Care visit on 09/14. She feels that she may have some anxiety/stress, as she admits to worrying about her grandson and also worrying about a recent right eye issue for which she is seeing ophthalmology. She has been checking her BP at home and SBPs averaged 140 mmHg for a couple of days, but are otherwise normal. She hasan appointment with her PCP on 10/03/21. REVIEW OF SYSTEMS: See above. MEDICATIONS: Current Outpatient Medications Medication Sig Dispense Refill ??? aspirin EC 325 mg Tablet, Delayed Release (E.C.) Take 325 mg by mouth daily. ??? lisinopriL (Zestril) 5 mg Tablet Take 5 mg by mouth daily. ??? Spiriva with HandiHaler 18 mcg Capsule, [...] if chest pain remains). 30tablet 5 ??? MECLIZINE HCL (MECLIZINE ORAL) Take by [...] spacer ??? citalopram (CELEXA) 20 mg tablet (Patient taking differently: Take 20 mg by mouth daily.) ??? celecoxib (CeleBREX) 100 mg Capsule daily. ??? docusate sodium (COLACE) 250 mg capsule 250 MG = 1 Capsule(s) PO Once daily (Patient not taking: Reported on 04/11/2021) No current facility-administered medications for this visit. Objective: VITAL SIGNS: BP 132/79 Pulse 81 Ht 154.9 cm (5' 1) Wt 82.1 kg (181 lb) SpO2 97% BMI 34.20 kg/m?? PHYSICAL EXAM: General: Well appearing, no acute distress Neck: No JVD noted Cardiovascular: Regular rate, rhythm, S1/S2, no murmur, rub, or gallop Lungs: Non-labored, clear to auscultation bilaterally Abdomen: Soft, non-tender, non-distended Peripheral vascular: Radial pulses +2 palpable and equal bilaterally, no lower extremity edema Skin: Warm, dry, intact Neurological: Alert and oriented ECG: I have personally reviewed today's ECG, which shows: HR 80, SR with LAFB, no acute ST changes STUDIES: Date CV Study Major Findings 09/06/21 Nuclear stress No ischemia or infarct, normal LVEF. 11/06/2017 [facility] Nml Lmain, mild diffuse LAD, nml LCx, mild diffuse RCA 09/13/2017 TTE LVEF 65%, no WMAs, no valve disease. Assessment and Plan: ASSESSMENT / PLAN ASCVD Chest pain Lightheadedness Chest pains have been atypical in the past, although she describes more classic symptoms in the past month. Work up has been negative with negative troponins, unremarkable EKGs, and normal nuclear stress testing. Will order echo to assess for valve disease/structural abnormalities. Will also obtainZiopatch to assess for arrhythmias. Lastly, will start amlodipine 2.5 mg daily to treat for vasospasm and microvascular disease- she will call if this is helpful so we can increase dose as indicated. HTN Despite reports of SBPs 140s for a couple of days at home recently, BP is well controlled today andshe tells me it was also well controlled at Urgent Care the other day. Adding amlodipine for anginal symptoms. Follow up: 2-3 months, will call with Zio and echo results Robert Pimentel, MSN, [employer], [employer] [facility] Cardiovascular Medicine Pager [phone] 09/19/2021 documented in this encounter Plan of Treatment Upcoming Encounters Date Type Department Care Team (Late st Contact Info) Description 04/28/2024 1:40 PM EDT Office Visit Cardiology at [address] [phone] Cody Martinez MD [facility] [place] [address] 05/27/2024 11:20 AM EDT Office Visit Dermatology at [facility] [address] [place] [phone] 06/13/2024 9:00 AM EDT Appointment [place] [phone] Kelly Miller, [employer] [facility] [place] [place] [address] 06/13/2024 10:00 AM EDT Laboratory Appointment Lab [address] [place] [address] 06/13/2024 11:00 AM EDT Office [place] [phone] Kelly Miller APRN [facility] GASTROENTEROLOGY [place], [place] [phone] 10/22/2024 10:30 AM EST Office Visit [place] [address] Mairaluisa Peres MD [facility] [place], [place] [phone] documented as of this encounter Procedures Procedure Name Priority Date/Time Associated Diagnosis Comments EKG 12-LEAD Routine 09/19/2021 10:35 AM EST ASCVD (arteriosclerotic cardiovascular disease) documented in this encounter Results * ECHO COMPLETE (12/21/2021 2:53 PM EDT) EF 65 HEARTLAB SYSTEM Anatomical Region Laterality Modality Other 12/21/2021 1:07 PM EDT Narrative 12/21/2021 3:55 PM EDT ?[facility] ?[address] ? [place] [address] ?Voice: ?Fax: ? Echocardiogram Report Name: AGATHA YI ? Study Date: 12/21/2021 01:07 PM ? Patient Location: 4A : 1960 ? Height: 155 cm ? Account: [id number] Age: 61 yrs ? Weight: 82 kg Gender: Female ?BSA: 1.8 m2 Ordering Physician: ROBERT PIMENTEL Referring Physician: ROBERT PIMENTEL Performed By: Carey Davenport RDCS Reason For Study: ASCVD Interpreting Fellow: Ruddy Zhang. Exam Location: [facility]. Interpretation Summary Left ventricle is normal in size and function with EF 65% and no WMA. Mild basal septal hypertrophy without LVOT obstruction. Mild filling abnormality. Right ventricle is normal size and systolic function. No significant valvular abnormalities. Compared to prior TTE report from 03/28/2012, there are no significant changes. Procedure Complete-[id number]. Left Ventricle Left ventricle is of normal size. Wall thickness is normal. Mildly increased thickness of the basal septum with no obstruction to LV outflow. Left ventricular systolic function is normal. Left ventricular ejection fraction is estimated visually at 65%. There are no segmental wall motion abnormalities. Right Ventricle The right ventricle is of normal size. Right ventricular systolic function is normal. Left Atrium The left atrium is normal. No abnormality of the interatrial septum is identified. Right Atrium The right atrium is normal. Aortic Valve The aortic valve is tricuspid. The aortic valve is mildly thickened. There is no aortic stenosis. There is no aortic regurgitation. Mitral Valve Mild thickening of the mitral leaflets. There is no mitral stenosis. There is trace mitral regurgitation. Tricuspid Valve The tricuspid valve is structurally and functionally normal. There is trace tricuspid regurgitation. Pulmonic Valve The pulmonic valve appears to be structurally normal. There is no pulmonic valve regurgitation. Great Arteries The aortic root is of normal size. No abnormalities are identified. Ascending aorta is normal in size. No abnormalities of the pulmonary artery are identified. Venous Inferior vena cava is normal in size. Inferior vena cava collapse greater than 50% with respiration. Pericardium/Pleural There is no pericardial effusion. Hemodynamics Pulmonary artery hypertension could not be assessed due to inadequate tricuspid regurgitation jet. The estimated right atrial pressure is 3mmHg. There is Grade I LV diastolic dysfunction (abnormal relaxation with normal left ventricular filling pressure). Ejection Fraction ?2D Measurements ? Volumes LV Biplane EF: 74.6 % ? IVSd: 1.5 cm ? LA Volume Index: ?LVIDd: 3.6 cm ?LVIDs: 2.2 cm ?14.5 ml/m2 ?LVPWd: 0.95 cm ? EDV Biplane: 50.3 ml ?LV mass(C)d: 141.5 grams ? EDV Biplane Index: 27.8 ? ESV Biplane: 12.8 ml ?LV mass(C)dI: 78.2 grams/m2 ?ESV Biplane Index: 7.1 ?Ao root diam: 2.8 cm ? SV(LVOT): 51.2 ml ?Ao root diam index: 1.6 ?LV Stroke Volume: 51.2 ml ?asc Aorta Diam: 3.4 cm ? SI(LVOT): 28.3 ml/m2 ?LVOT diam: 1.8 cm ?TAPSE_phl: 1.8 cm Doppler Ao V2 VTI: 20.6 cm Ao valve max: 6.9 mmHg Ao valve mean: 4.0 mmHg MV E max luiz: 44.4 cm/sec MV A max luiz: 59.0 cm/sec MV E/A: 0.75 MV dec time: 0.30 sec Lat Peak E' Luiz: 6.7 cm/sec E/ e' (lat): 6.6 Med Peak E' Luiz: 7.6 cm/sec E/e' (med): 5.8 E/e' Average: 6.2 TAD(I,D): 2.5 cm2 Dimensionless index Aov: 1.0 I ?WMSI = 1.00 ? % Normal = 100 ?Segments ??Size X - Cannot ?? 1 - Normal ?? 2 - ? 3 - Akinetic 4 - ?1-2 ? small Interpret ? Hypokinetic ?Dyskinetic ?? 3-5 ? moderate 5 - ? 6-14 ?large Aneurysmal ?15-16 ?? diffuse Procedure Note Michelet Day MD - 12/21/2021 [place] [address] Voice: Fax: Echocardiogram Report Name: AGATHA YI Study Date: 201:07 PM Patient Location: : 1960 Height: 155 cm Account: [id number] Age: 61 yrs Weight: 82 kg Gender: Female BSA: 1.8 m2 Ordering Physician: ROBERT PIMENTEL Referring Physician: ROBERT PIMENTEL Performed By: Carey Davenport RDCS Reason For Study: ASCVD Interpreting Fellow: Ruddy Zhang. Exam Location: [facility]. Interpretation Summary Left ventricle is normal in size and function with EF 65% and no WMA. Mildbasal septal hypertrophy without LVOT obstruction. Mild filling abnormality. Right ventricle is normal size and systolic function. No significant valvular abnormalities. Compared to prior TTE report from 03/28/2012, there are no significantchanges. Procedure Complete-[id number]. Left Ventricle Left ventricle is of normal size. Wall thickness is normal. Mildlyincreased thickness of the basal septum with no obstruction to LV outflow. Leftventricular systolic function is normal. Left ventricular ejection fraction isestimated visually at 65%. There are no segmental wall motion abnormalities. Right Ventricle The right ventricle is of normal size. Right ventricular systolic functionis normal. Left Atrium The left atrium is normal. No abnormality of the interatrial septum isidentified. Right Atrium The right atrium is normal. Aortic Valve The aortic valve is tricuspid. The aortic valve is mildly thickened. Thereis no aortic stenosis. There is no aortic regurgitation. Mitral Valve Mild thickening of the mitral leaflets. There is no mitral stenosis. Thereis trace mitral regurgitation. Tricuspid Valve The tricuspid valve is structurally and functionally normal. There istrace tricuspid regurgitation. Pulmonic Valve The pulmonic valve appears to be structurally normal. There is no pulmonicvalve regurgitation. Great Arteries The aortic root is of normal size. No abnormalities are identified.Ascending aorta is normal in size. No abnormalities of the pulmonary artery areidentified. Venous Inferior vena cava is normal in size. Inferior vena cava collapse greaterthan 50% with respiration. Pericardium/Pleural There is no pericardial effusion. Hemodynamics Pulmonary artery hypertension could not be assessed due to inadequatetricuspid regurgitation jet. The estimated right atrial pressure is 3mmHg. There isGrade I LV diastolic dysfunction (abnormal relaxation with normal left ventricularfilling pressure). Ejection Fraction 2D Measurements Volumes LV Biplane EF: 74.6 % IVSd: 1.5 cm LA VolumeIndex: LVIDd: 3.6 cm LVIDs: 2.2 cm 14.5 ml/m2 LVPWd: 0.95 cm EDV Biplane: 50.3ml LV mass(C)d: 141.5 grams EDV BiplaneIndex: 27.8 ESV Biplane: 12.8ml LV mass(C)dI: 78.2 grams/m2 ESV BiplaneIndex: 7.1 Ao root diam: 2.8 cm SV(LVOT): 51.2ml Ao root diam index: 1.6 LV Stroke Volume:51.2 ml asc Aorta Diam: 3.4 cm SI(LVOT): 28.3ml/m2 LVOT diam: 1.8 cm TAPSE_phl: 1.8 cm Doppler Ao V2 VTI: 20.6 cm Ao valve max: 6.9 mmHg Ao valve mean: 4.0 mmHg MV E max luiz: 44.4 cm/sec MV A max luiz: 59.0 cm/sec MV E/A: 0.75 MV dec time: 0.30 sec Lat Peak E' Luiz: 6.7 cm/sec E/ e' (lat): 6.6 Med Peak E' Luiz: 7.6 cm/sec E/e' (med): 5.8 E/e' Average: 6.2 TAD(I,D): 2.5 cm2 Dimensionless index Aov: 1.0 I WMSI = 1.00 % Normal = 100 SegmentsSize X - Cannot 1 - Normal 2 - 3 - Akinetic 4 - 1-2small Interpret Hypokinetic Dyskinetic 3-5moderate 5 - 6-14large Aneurysmal 15-16diffuse Robert Pimentel APRN ECHO ORDERABLES * Ziopatch 48 Hrs-15 Days (09/19/2021 11:49 AM EST) Anatomical Region Laterality Modality Other Narrative 10/27/2021 9:56 AM EST [facility] ? Zio Patch? Ambulatory Cardiac Event Monitor Report Study Dates: 09/19/21, 11:28am to 09/22/21, 09:35am Analysis Time: 2 days and 15 hours (after artifact removed) Indication(s) provided: dizziness Summary Data Predominant rhythm : sinus rhythm ??, Range 53-100 BPM , Average rate 72 BPM Atrial fibrillation : ??none Ectopic beats There were rare atrial premature beats and couplets (<1% each) ?? There were 2 supraventricular runs, the fastest lasting 4 beats reaching a maximum rate of 174 BPM; the longest lasted 9 beats averaging 135 BPM There were rare isolated ventricular premature beats (<1%) No high grade ectopy was seen Triggered and Patient Diary Events There were 3 patient-triggered events which showed: sinus rhythm 78 BPM with atrial premature beats and the 9 beat supraventricular run and sinus rhythm at 86 BPM and 81 BPM without ectopy. There were 2 patient diary entries One reporting chest pain / pressure which showed sinus rhythm 80 BPM without ectopy. The second instance reported skipped/irregular beats however the patient did not provide the date and/or time information required for electrocardiographic correlation. Conclusion(s): ?? Abbreviated study. Sinus rhyhthm averaging 72 BPM with rare generally lowgrade ambient ectopy, slightly correlated with reported events/symptoms. No sustained tachyarrhythmias nor any pathologic pauses detected. ?? Philippe Jhaveri MD, PhD, [facility] Cardiac Electrophysiology Robert Pimentel APRN CARDIAC SERVICES O RDERABLES * EKG 12 Lead (09/19/2021 10:35 AM EST) Ventricular rate 80 BPM MUSE SYSTEM Atrial Rate 80 BPM MUSE SYSTEM P-R Interval 158 ms MUSE SYSTEM QRS Duration 72 ms MUSE SYSTEM Q-T Interval 390 ms MUSE SYSTEM QTC Calculated (Bezet) 449 ms MUSE SYSTEM Calculated P [place] 34 degrees MUSE SYSTEM Calculated R [place] -49 degrees MUSE SYSTEM Calculated T [place] 37 degrees MUSE SYSTEM INTERPRETATION Normal sinus rhythm Low voltage QRS Left anterior fascicular block Cannot rule out Anterior infarct , age undetermined ??vs lead placement Abnormal ECG When compared with ECG of 19-DEC-2018 14:38, No significant change was found Confirmed by Garima Adhikari ([id number]) on 09/19/2021 6:35:04 PM MUSE SYSTEM 09/19/2021 10:3 5 AM EST 09/19/2021 6:35 PM EST Robert Pimentel APRN ECG ORDERABLES MUSE SYSTEM documented in this encounter Visit Diagnoses Diagnosis ASCVD (arteriosclerotic cardiovascular disease) Unspecified cardiovascular disease Hypertension, unspecified type Lightheadedness Dizziness and giddiness Chest pressure Other chest pain Lightheadedness Dizziness and giddiness Chest pressure Other chest pain ASCVD (arteriosclerotic cardiovascular disease) Unspecified cardiovascular disease documented in this encounter Care Teams Bead Filler Relationship Specialty Start Date End Date Kerry Ascencio PA [address] [place] [address] [place] [address] PCP - General Internal Medicine 01/29/21 documented as of this encounter
--- OUTSIDE RECORDS SUMMARY | 2024-04-10 13:41 | XMS_ITS | Encounter Summary ---
Author Organization [facility] [place] [address] Care Team Providers Care Human Resources Team Member Name Role Phone Kerry Ascencio Primary Care Provider + Encounter Details Date Type Department Care Team (Late st Contact Info) Description 12/27/2021 Ancillary Procedure [place] [address] Kerry Ascencio PA [address] [place] [address] [place], [place] [address] Social History Tobacco Use Types Packs/Day Years [...] 1:40 PM EDT Office Visit Cardiology at [address] [phone] Cody Martinez MD [facility] [place] [address] 05/27/2024 11:20 AM EDT Office Visit Dermatology at [facility] [address] [place] [address] 06/13/2024 9:00 AM EDT [place] [phone] Kelly Miller APRN [facility] [place] [address] 06/13/2024 10:00 AM EDT Laboratory Appointment Lab [address] [place] [phone] 06/13/2024 11:00 AM EDT Office [place] [phone] Kelly Miller APRN [facility] [place] [address] 10/22/2024 10:30 AM EST Office Visit [place] [phone] Marialuisa Peres MD [facility] [place] [address] documented as of this encounter Procedures Procedure Name Priority Date/Time Associated Diagnosis Comments FILM LIBRARY-STORAGE ONLY US BREAST Routine 12/27/2021 12:00 AM EDT documented in this encounter Results * Film Library Storage Only US Breast (12/27/2021 12:00 AM EDT) Narrative [facility] - 12/29/2021 12:10 PM EDT This exam is auto-finalizing. It's purpose is for storage only. Kerry MILLS IMFidelina FILM LIBRARY ORDERABLES [place], [place] documented in this encounter Visit Diagnoses Not on filedocumented in this encounter Care Teams Human Resources Team Member Relationship Specialty Start Date End Date Kerry Ascencio PA [address] [place] [address] [place] [address] PCP - General Internal Medicine 01/29/21 documented as of this encounter
--- OUTSIDE RECORDS SUMMARY | 2024-04-10 13:41 | XMS_ITS | Encounter Summary ---
Author Organization [facility] Address [facility] [place] [address] Care Team Providers Care Latin Professor Name Role Phone Kerry Ascencio Primary Care Provider + Encounter Details Date Type Department Care Team (Latest Contact Info) Description 08/31/2021 11:40 AM EST Ext Surgery or Single Event [facility] [address] [place] [address] Cortez Cleary MD [facility] [place] [address] Chest pain, atypical Social History Tobacco Use Types Packs/Day Years [...] as of this encounter Progress Notes * Cortez Cleary MD - 08/31/2021 11:40 AM EST Exercise Stress Test- Final Report Agatha Yi : 1960 [facility] Referring: Jas Indication: atypical cp Date: 08/31/2021 Details: Medication: none pertinent Risk Factors: Hx non-obstructive cad Resting EKG: nsr with non-specific st-tw Resting HR 76; Resting BP 165/101 Summary: Max Exercise: Time: 5 minutes Stage: due to knee-related limitations, patient exercise for 3 minutes at 1.4 mph @ 10 degree incline, and then 2 minutes at 1.4 mph @ 12 degree incline Michelet METs: 4.36 Max HR: 115 (representing 72% of MPHR) Max BP: 216/109 RPP: 24.8k HR Deceleration: tardy Ischemia?: No diagnostic changes Arrhythmias?: none Reason for Termination: knee pain. In early recovery, patient endorsed a very mild chest twinge. This was without any EKG changes IMPRESSION: 1) Non-diagnostic study due to failure to obtain THR 2) Exercise limited due to knee arthralgias 3) If suspicion for obstructive coronary artery disease remains, consider non- exercise based evaluation such as pharmacologic imaging-augmented stress test or CCTA. Electronically Signed: Cortez Cleary MD, 08/31/2021 11:51 AM documented in this encounter Plan of Treatment Upcoming Encounters Date Type Department Care Team (Late st Contact Info) Description 04/28/2024 1:40 PM EDT Office Visit Cardiology at [address] [phone] Cody Martinez MD [facility] [place] [address] 05/27/2024 11:20 AM EDT Office Visit Dermatology at [address] [phone] 06/13/2024 9:00 AM EDT [place] [address] Kelly Miller APRN [facility] [place] [address] 06/13/2024 10:00 AM EDT Laboratory Appointment Lab [address] [place] [address] 06/13/2024 11:00 AM EDT Office [place] [address] Kelly Miller APRN [facility] [place] [address] 10/22/2024 10:30 AM EST Office Visit [place] [address] Marialuisa Peres MD [facility] [place] [address] documented as of this encounter Procedures Procedure Name Priority Date/Time Associated Diagnosis Comments ECG SCAN 08/31/2021 12:00 AM EST documented in this encounter Results * SCAN DOC: ECG (08/31/2021 12:00 AM EST) Unknown MEDIA MGR SCAN EXT O RDR/RSLT documented in this encounter Visit Diagnoses Diagnosis Chest pain, atypical Other chest pain documented in this encounter Care Teams Latin Professor Relationship Specialty Start Date End Date Kerry Ascencio PA [address] [place] [address] [place] [address] PCP - General Internal Medicine 01/29/21 documented as of this encounter
--- OUTSIDE RECORDS SUMMARY | 2024-04-10 13:41 | XMS_ITS | Encounter Summary ---
Author Organization [facility] [place] [address] Care Team Providers Care Visual Effects Editor Name Role Phone Kerry Ascencio Primary Care Provider + Encounter Details Date Type Department Care Team (Late st Contact Info) Description 12/13/2021 Ancillary Procedure [place] [address] Kerry Ascencio PA [address] [place] [address] [place], [place] [address] Social History Tobacco Use Types Packs/Day Years [...] 1:40 PM EDT Office Visit Cardiology at [address] [phone] Cody Martinez MD [facility] [place] [address] 05/27/2024 11:20 AM EDT Office Visit Dermatology at [facility] [address] [place] [address] 06/13/2024 9:00 AM EDT Appointment [place] [phone] Kelly Miller APRN [facility] [place] [address] 06/13/2024 10:00 AM EDT Laboratory Appointment Lab [address] [place] [phone] 06/13/2024 11:00 AM EDT Office [place] [phone] Kelly Miller APRN [facility] [place] [address] 10/22/2024 10:30 AM EST Office Visit [place] [phone] Marialuisa Peres MD [facility] [place] [address] documented as of this encounter Procedures Procedure Name Priority Date/Time Associated Diagnosis Comments FILM LIBRARY STORAGE ONLY MAMMO Routine 12/13/2021 12:00 AM EDT documented in this encounter Results * Film Library- Storage Only Mammo (12/13/2021 12:00 AM EDT) Narrative [facility] - 12/29/2021 9:51 AM EDT This exam is auto-finalizing. It's purpose is for storage only. Kerry MILLS IMFidelina FILM LIBRARY ORDERABLES [place], [place] documented in this encounter Visit Diagnoses Not on filedocumented in this encounter Care Teams Visual Effects Editor Relationship Specialty Start Date End Date Kerry Ascencio PA [address] [place] [address] [place] [address] PCP - General Internal Medicine 01/29/21 documented as of this encounter
--- OUTSIDE RECORDS SUMMARY | 2024-04-10 13:41 | XMS_ITS | Encounter Summary ---
Author Organization [facility] [place] [address] Care Team Providers Care Core Microarchitect Name Role Phone Kerry Ascencio Primary Care Provider + Encounter Details Date Type Department Care Team (Late st Contact Info) Description 08/02/2021 Ancillary Procedure [place] [address] Kerry Ascencio PA [address] [place] [address] [place], [place] [address] Social History Tobacco Use Types Packs/Day Years [...] PM EDT Office Visit Cardiology at [address] [phone] Cody Martinez MD [facility] [place] [address] 05/27/2024 11:20 AM EDT Office Visit Dermatology at [facility] [address] [place] [address] 06/13/2024 9:00 AM EDT Appointment [place] [phone] Kelly Miller APRN [facility] [place] [address] 06/13/2024 10:00 AM EDT Laboratory Appointment Lab [address] [place] [phone] 06/13/2024 11:00 AM EDT Office Visit [place] [phone] Kelly Miller APRN [facility] [place] [address] 10/22/2024 10:30 AM EST Office Visit Weight [place] [phone] Marialuisa Peres MD [facility] [place] [address] documented as of this encounter Procedures Procedure Name Priority Date/Time Associated Diagnosis Comments FILM LIBRARY STORAGE ONLY DX WRIST Routine 08/02/2021 12:00 AM EST documented in this encounter Results * Film Library- Storage Only DX Wrist (08/02/2021 12:00 AM EST) Narrative [facility] - 08/23/2023 4:25 PM EST This exam is auto-finalizing. It's purpose is for storage only. Kerry MILLS IMFidelina FILM LIBRARY ORDERABLES [place], [place] documented in this encounter Visit Diagnoses Not on filedocumented in this encounter Care Teams Core Microarchitect Relationship Specialty Start Date End Date Kerry Ascencio PA [address] [place] [address] [place] [address] PCP - General Internal Medicine 01/29/21 documented as of this encounter
--- OUTSIDE RECORDS SUMMARY | 2024-04-10 13:41 | XMS_ITS | Encounter Summary ---
Author Organization [facility] [place] [address] Care Team Providers Care Manufacturing Technologist Name Role Phone Kerry Ascencio Primary Care Provider + Encounter Details Date Type Department Care Team (Late st Contact Info) Description 12/15/2021 Ancillary Procedure [place] [address] Kerry Ascencio PA [address] [place] [address] [place], [place] [phone] Social History Tobacco Use Types Packs/Day Years [...] 1:40 PM EDT Office Visit Cardiology at [address] [phone] Cody Martinez MD [facility] [place] [address] 05/27/2024 11:20 AM EDT Office Visit Dermatology at [facility] [address] [place] [address] 06/13/2024 9:00 AM EDT [place] [phone] Kelly Miller APRN [facility] [place] [place] [address] 06/13/2024 10:00 AM EDT Laboratory Appointment Lab [address] [place] [phone] 06/13/2024 11:00 AM EDT Office [place] [phone] Kelly Miller APRN [facility] [place] [place] [address] 10/22/2024 10:30 AM EST Office Visit [place] [phone] Marialuisa Peres MD [facility] [place] [address] documented as of this encounter Procedures Procedure Name Priority Date/Time Associated Diagnosis Comments FILM LIBRARY STORAGE ONLY DX CHEST Routine 12/15/2021 12:00 AM EDT documented in this encounter Results * Film Library- Storage Only DX Chest (12/15/2021 12:00 AM EDT) Narrative [facility] - 12/17/2021 3:32 AM EDT This exam is auto-finalizing. It's purpose is for storage only. Kerry MILLS IMFidelina FILM LIBRARY ORDERABLES [place], [place] documented in this encounter Visit Diagnoses Not on filedocumented in this encounter Care Teams Manufacturing Technologist Relationship Specialty Start Date End Date Kerry Ascencio PA [address] [place] [address] [place] [address] PCP - General Internal Medicine 01/29/21 documented as of this encounter
--- OUTSIDE RECORDS SUMMARY | 2024-04-10 13:41 | XMS_ITS | Encounter Summary ---
Author Organization [facility] [place] [address] Care Team Providers Care Supply Chain Design Manager Name Role Phone Kerry Ascencio Primary Care Provider + Reason for Referral * Diagnostic Test (Routine) - Closed Specialty Diagnoses / Procedures Referred By Clari dickey Referred To Contact Cardiology Diagnoses ASCVD (arteriosclerotic cardiovascular disease) Procedures Echocardiogram Transthoracic([facility]) Robert Pimentel APR[place] [address] [facility] [place] [address] Referral ID Status Reason Start Date Expiration Date V isits Requested Visits Authorized [id number] Closed Specialty Service Requested 09/19/2021 09/19/2022 1 1 Reason for Visit * Diagnostic Test (Routine) - Closed Specialty Diagnoses / Procedures Referred By Clari dickey Referred To Contact Cardiology Diagnoses ASCVD (arteriosclerotic cardiovascular disease) Procedures Echocardiogram Transthoracic([facility] or [facility]) Robert Pimentel APR[place] [address] [facility] [place] [address] Referral ID Status Reason Start Date Expiration Date V isits Requested Visits Authorized [id number] Closed Specialty Service Requested 09/19/2021 09/19/2022 1 1 Encounter Details Date Type Department Care Team (Latest Contact Info) Description 12/21/2021 1:00 PM EDT - 12/21/2021 11:59 PM EDT Hospital Encounter Non-Invasive Cardiology Lab [facility] [place] [phone] Robert Pimentel, CONSTRUCTION EQUIPMENT MECHANIC HELPER [place] [address] ASCVD (arteriosclerotic cardiovascular disease) Discharge Disposition: Home Social History Tobacco Use [...] 40 mg Capsule, Delayed Release(E.C.) 12/14/2021 01/31/2022 topiramate (Topamax) 25 mg Tablet 10/24/2021 12/20/2022 dilTIAZem XR (Dilacor XR) 120 mg Capsule,Degradable Cnt Release Take 1 capsule by mouth daily. 90 capsule 3 12/21/2021 12/21/2022 lisinopriL (Zestril) 5 mg Tablet Take 5 mg by mouth daily. 01/03/2022 Spiriva with HandiHaler 18 mcg Capsule, w/Inhalation [...] PM EDT Office Visit Cardiology at [address] [phone] Cody Martinez MD [facility] [place] [address] 05/27/2024 11:20 AM EDT Office Visit Dermatology at [place] [address] [place] [phone] 06/13/2024 9:00 AM EDT Appointment Ultrasound at [place] [phone] Kelly Miller APRN [facility] [place] [address] 06/13/2024 10:00 AM EDT Laboratory Appointment Lab [address] [address] 06/13/2024 11:00 AM EDT Office [place] [address] Kelly Miller CONSTRUCTION EQUIPMENT MECHANIC HELPER [facility] [place] [address] 10/22/2024 10:30 AM EST Office Visit [place] [address] Marialuisa Peres MD [facility] [place] [address] documented as of this encounter Procedures Procedure Name Priority Date/Time Associated Diagnosis Comments ECHO COMPLETE Routine 12/21/2021 2:53 PM EDT ASCVD (arteriosclerotic cardiovascular disease) documented in this encounter Results * ECHO COMPLETE (12/21/2021 2:53 PM EDT) EF 65 HEARTLAB SYSTEM Anatomical Region Laterality Modality Other 12/21/2021 1:07 PM EDT Narrative 12/21/2021 3:55 PM EDT ?[facility] ?[address] ? [place], [facility] ?Voice: ?Fax: ? Echocardiogram Report Name: AGATHA YI ? Study Date: 12/21/2021 01:07 PM ? Patient Location: 4A : 1960 ? Height: 155 cm ? Account: [id number] Age: 61 yrs ? Weight: 82 kg Gender: Female ?BSA: 1.8 m2 Ordering Physician: ROBERT PIMENTEL Referring Physician: ROBERT PIMENTEL Performed By: Carey Davenport RDCS Reason For Study: ASCVD Interpreting Fellow: Ruddy Zhang. Exam Location: [facility]. Interpretation Summary Left ventricle is normal in size and function with EF 65% and no WMA. Mild basal septal hypertrophy without LVOT obstruction. Mild filling abnormality. Right ventricle is normal size and systolic function. No significant valvular abnormalities. Compared to prior TTE report from 03/28/2012, there are no significant changes. Procedure Complete-[id number]. Left Ventricle Left ventricle is of normal [...] Procedure Note Michelet Day MD - 12/21/[address] [address] Voice: Fax: Echocardiogram Report Name: AGATHA YI Study Date: 201:07 PM Patient Location: : 1960 Height: 155 cm Account: [id number] Age: 61 yrs Weight: 82 kg Gender: Female BSA: 1.8 m2 Ordering Physician: ROBERT PIMENTEL Referring Physician: ROBERT PIMENTEL Performed By: Carey Davenport RDCS Reason For Study: ASCVD Interpreting Fellow: Ruddy Zhang. Exam Location: [facility]. Interpretation Summary Left ventricle is normal in size and function with EF 65% and no WMA. Mildbasal septal hypertrophy without LVOT obstruction. Mild filling abnormality. Right ventricle is normal size and systolic function. No significant valvular abnormalities. Compared to prior TTE report from 03/28/2012, there are no significantchanges. Procedure Complete-[id number]. Left Ventricle Left ventricle is of normal [...] Aneurysmal 15-16diffuse Robert Pimentel APRN ECHO ORDERABLES documented in this encounter Visit Diagnoses Diagnosis ASCVD (arteriosclerotic cardiovascular disease) Unspecified cardiovascular disease documented in this encounter Care Teams Supply Chain Design Manager Relationship Specialty Start Date End Date Kerry Ascencio PA [address] [place] [address] [place] [address] PCP - General Internal Medicine 01/29/21 documented as of this encounter
--- OUTSIDE RECORDS SUMMARY | 2024-04-10 13:41 | XMS_ITS | Encounter Summary ---
Author Organization [facility] [place] [address] Care Team Providers Care Car Pre Cooler Name Role Phone Kerry Ascencio Primary Care Provider + Encounter Details Date Type Department Care Team (Late st Contact Info) Description 12/16/2021 Telephone Cardiology at [address] [address] Nerissa Pimentel MICROSOFT APPLICATION DEVELOPER [facility] [place] [address] Social History Tobacco Use Types Packs/Day Years [...] encounter Miscellaneous Notes * Telephone Encounter - Nerissa Pimentel APRN - 12/16/2021 9:30 AM EDT I called Agatha with the intent to discuss symptoms/functional capacity after receiving a message about needing cardiac clearance prior to colonoscopy next week. She reported that her colonoscopy is going to be rescheduled, as she was seen in the [facility] ED yesterday for palpitations, shortness of breath, nausea, and headache. She took a SL nitro at home which did not relieve her symptoms. By the time she arrived at the ED, her symptoms had finally subsided and she was told that her work up was unremarkable. She is going to have a 24 hr Holter monitor placed today. She states that she had still been experiencing intermittent (less than weekly) chest discomfort over the last few months, which is usually nitro responsive. Otherwise, she had been feeling okay prior to yesterday. She understands that she has follow up scheduled with Dr. Martinez on 12/20. She will have an echo prior to that visit. Nerissa Pimentel, MSN, [employer]OCK P[employer]ER[employer]BC, MICROSOFT APPLICATION DEVELOPER [facility] documented in this encounter Plan of Treatment Upcoming Encounters Date Type Department Care Team (Late st Contact Info) Description 04/28/2024 1:40 PM EDT Office Visit Cardiology at [address] [phone] Cody Martinez MD [facility] [place] [address] 05/27/2024 11:20 AM EDT Office Visit Dermatology at [address] [address] 06/13/2024 9:00 AM EDT Appointment [place] [phone] Kelly Miller APRN [facility] [place] [address] 06/13/2024 10:00 AM EDT Laboratory Appointment Lab [address] [place] [phone] 06/13/2024 11:00 AM EDT Office Visit [place] [phone] Kelly Miller APRN [facility] [place] [address] 10/22/2024 10:30 AM EST Office Visit [place] [phone] Marialuisa Peres MD [facility] [place] [address] documented as of this encounter Visit Diagnoses Not on filedocumented in this encounter Care Teams Car Pre Cooler Relationship Specialty Start Date End Date Kerry Ascencio PA [address] [place] [address] [place] [address] PCP - General Internal Medicine 01/29/21 documented as of this encounter
--- OUTSIDE RECORDS SUMMARY | 2024-04-10 13:41 | XMS_ITS | Encounter Summary ---
Author Organization [facility] [place] [address] Care Team Providers Care Building Illuminating Engineer Name Role Phone Kerry Ascencio Primary Care Provider + Reason for Referral * Diagnostic Test (Routine) - Closed Specialty Diagnoses / Procedures Referred By Clari dickey Referred To Contact Cardiology Diagnoses Lightheadedness Chest pressure Procedures Ziopatch 48 Hrs-15 Days Nerissa Pimentel APRN [facility] [place] [address] [facility] [place] [address] Referral ID Status Reason Start Date Expiration Date V isits Requested Visits Authorized [id number] Closed Specialty Service Requested 09/19/2021 12/18/2021 1 1 Reason for Visit * Diagnostic Test (Routine) - Closed Specialty Diagnoses / Procedures Referred By Clari dickey Referred To Contact Cardiology Diagnoses Lightheadedness Chest pressure Procedures Ziopatch 48 Hrs-15 Days Nerissa Pimentel APRN [facility] [place] [address] [facility] [place] [address] Referral ID Status Reason Start Date Expiration Date V isits Requested Visits Authorized [id number] Closed Specialty Service Requested 09/19/2021 12/18/2021 1 1 Encounter Details Date Type Department Care Team (Latest Contact Info) Description 09/19/2021 11:19 AM EST - 09/19/2021 11:59 PM EST Hospital Encounter Non-Invasive Cardiology Lab [facility] [place] [address] Nerissa Pimentel, JU [facility] [address] Lightheadedness; Chest pressure Discharge Disposition: Home Social History Tobacco Use Types Packs/Day Years Used Date Smoking Tobacco: Former Cigarettes 1 10 414 1983 Smokeless Tobacco: Never Alcohol Use Standard Drinks/Week Comments Never 0 (1 standard drink = 0.6 oz pur e alcohol) Sex and Gender Information Value Date Recorded Sex Assigned at Not on file Gender Identity Not on file Sexual Orientation Not on file documented as of this encounter Medications at Time of Discharge Medication Sig Dispensed Refills Start Date End Date levothyroxine (Synthroid) 100 mcg Tablet 125 mcg daily. 02/02/2021 ezetimibe (Zetia) 10 mg Tablet Take 10 mg by mouth daily. nitroGLYcerin (Nitrostat) 0.4 mg Tablet, SublingualIndications:ASC VD (arteriosclerotic cardiovascular disease) Place 1 tablet under [...] spacer citalopram (CELEXA) 20 mg tablet 07/19/2009 amLODIPine (Norvasc) 2.5 mg Tablet Take 1 tablet by mouth daily. 30 tablet 3 09/19/2021 10/28/2021 aspirin EC 325 mg Tablet, Delayed Release (E.C.) Take 325 mg by mouth daily. 12/21/2021 lisinopriL (Zestril) 5 mg Tablet Take 5 [...] 04/01/2010 01/31/2022 documented as of this encounter Progress Notes * Nerissa Pimentel, JU - 09/19/2021 11:59 PM EST Discussed results with Ms. Yi. She reports that her chest pressure episodes are about the same, have not worsened. They are not exertional. She did not start taking amlodipine, which was prescribed at our last visit. Reviewed that we could trial a low dose beta lisette for the low burden of ectopy seen on Ziopatch, although she reports symptoms more consistent with sustained chest pressure,less so palpitations. Reviewed reassuring work up so far with Ziopatch results and negative nuclearstress test. Will wait for echo results. She has follow up with her PCP next week regarding lightheadedness/dizziness. Has follow up with Dr. Martinez on 11/23. Nerissa Pimentel, MSN, AWNING HANGER-BC, DUCT LAYER SUPERVISOR [facility] Cardiovascular Medicine documented in this encounter Plan of Treatment Upcoming Encounters Date Type Department Care Team (Late st Contact Info) Description 04/28/2024 1:40 PM EDT Office Visit Cardiology at [address] [phone] Cody Martinez MD [facility] [place] [address] 05/27/2024 11:20 AM EDT Office Visit Dermatology at [address] [phone] 06/13/2024 9:00 AM EDT [place] [phone] Kelly Miller APRN [facility] [place] [address] 06/13/2024 10:00 AM EDT Laboratory Appointment Lab [address] [place] [address] 06/13/2024 11:00 AM EDT Office [place] [phone] Kelly Miller APRN [facility] [place] [address] 10/22/2024 10:30 AM EST Office Visit Weight and Wellness at [facility] [place] [phone] Marialuisa Peres MD [facility] [place] [address] documented as of this encounter Procedures Procedure Name Priority Date/Time Associated Diagnosis Comments ZIOPATCH 48 HRS-15 DAYS Routine 09/19/2021 11:49 AM EST Lightheadedness Chest pressure documented in this encounter Results * Ziopatch 48 Hrs-15 Days (09/19/2021 11:49 AM EST) Anatomical Region Laterality Modality Other Narrative 10/27/2021 9:56 AM EST [facility] ? Zio Patch? Ambulatory Cardiac Event Monitor [...] pauses detected. ?? Philippe Jhaveri MD, PhD, [facility] Cardiac Electrophysiology Nerissa Pimentel APRN [facility] documented in this encounter Visit Diagnoses Diagnosis Lightheadedness Dizziness and giddiness Chest pressure Other chest pain documented in this encounter Care Teams Building Illuminating Engineer Relationship Specialty Start Date End Date Kerry Ascencio PA [address] [place] [address] [place] [address] PCP - General Internal Medicine 01/29/21 documented as of this encounter
--- OUTSIDE RECORDS SUMMARY | 2024-04-10 13:41 | XMS_ITS | Encounter Summary ---
Author Organization [facility] [place] [address] Care Team Providers Care Watch And Clock Repairer Name Role Phone Kerry Ascencio Primary Care Provider + Reason for Visit * Reason Onset Date Comments Questions 05/05/2021 Can she fly Encounter Details Date Type Department Care Team (Late st Contact Info) Description 05/05/2021 Telephone Ophthalmology at [facility] [place] [address] Carolee Harrison MD [facility] [place] [address] Questions (Can she fly) Social History Tobacco Use Types Packs/Day Years [...] Telephone Encounter - Conchita Mckeon COT - 05/05/2021 10:28 AM EDT Patient asking if it is okay for her to fly? YES Carolee Harrison MD at 04/20/2021 ??1:45 PM Author Type: Physician Status: Signed Electronic Equipment Repairmen: Carolee Harrison MD (Physician) ASSESSMENT/PLAN: ?? 1. Visual disturbance ? Visual Acuity ?? Visual Acuity (Snellen - Linear) ?? Right Left ?? Dist sc 20/200 -2 20/30 ?? Dist ph sc 20/80 NI ?? Near cc 20/400 20/25 Can see 1 letter on each line down to 20/100 ? Tonometry ?? Tonometry (Applanation, 2:02 PM) ?? Right Left ?? Pressure 16 17 Squeezes eyelids and blinks a lot ? 1. Visual disturbances/ entopsias OD Today's exam and multimodal imaging was only significant for syneuresis without any vision threatening conditions. Education and reassurance provided. ?? Follow up 4mo for HVF Cornelia fast 24-2, DFE, OCT OU Sooner PRN ?? I, Soraya Hamilton, [facility], have performed the documentation for this encounter in the presence of, and acting as a scribe for Carolee Harrison MD. I performed the services which were documented by the scribe, and I agree with the accuracy of the documentation in this encounter. ?? Carolee Harrison MD, PhD ? documented in this encounter Plan of Treatment Upcoming Encounters Date Type Department Care Team (Late st Contact Info) Description 04/28/2024 1:40 PM EDT Office Visit Cardiology at [address] [phone] Cody Martinez MD [facility] C[place] [address] 05/27/2024 11:20 AM EDT Office Visit Dermatology at [facility] [address] [place] [address] 06/13/2024 9:00 AM EDT [place] [address] Kelly Miller, TYPING POOL SUPERVISOR [facility] [place] [address] 06/13/2024 10:00 AM EDT Laboratory Appointment Lab [address] [place] [phone] 06/13/2024 11:00 AM EDT Office Visit Gastroenterology at [place] [phone] Kelly Miller TYPING POOL SUPERVISOR [facility] [place] [address] 10/22/2024 10:30 AM EST Office Visit [place] [phone] Marialuisa Peres MD [facility] [place] [address] documented as of this encounter Visit Diagnoses Not on filedocumented in this encounter Care Teams Watch And Clock Repairer Relationship Specialty Start Date End Date Kerry Ascencio PA [address] [place] [address] [place] [address] PCP - General Internal Medicine 01/29/21 documented as of this encounter
--- OUTSIDE RECORDS SUMMARY | 2024-04-10 13:41 | XMS_ITS | Encounter Summary ---
Author Organization [facility] Address [facility] [place] [address] Care Team Providers Care Ash Kier Boiler Name Role Phone Kerry Ascencio Primary Care Provider + Encounter Details Date Type Department Care Team (Late st Contact Info) Description 10/28/2021 Orders Only Cardiology at [address] [phone] Nerissa Pimentel APRN [facility] [place] [address] Social History Tobacco Use Types Packs/Day Years [...] 1:40 PM EDT Office Visit Cardiology at [address] [phone] Cody Martinez MD [facility] [place] [address] 05/27/2024 11:20 AM EDT Office Visit Dermatology at [facility] [address] [place] [address] 06/13/2024 9:00 AM EDT [place] [phone] Kelly Miller APRN [facility] [place] [address] 06/13/2024 10:00 AM EDT Laboratory Appointment Lab [address] [place] [phone] 06/13/2024 11:00 AM EDT Office [place] [phone] Kelly Miller, JU [facility] [place] [address] 10/22/2024 10:30 AM EST Office Visit [place] [phone] Marialuisa Peres MD [facility] [place] [address] documented as of this encounter Visit Diagnoses Not on filedocumented in this encounter Care Teams Ash Kier Boiler Relationship Specialty Start Date End Date Kerry Ascencio PA [address] [place] [address] [place] [address] PCP - General Internal Medicine 01/29/21 documented as of this encounter
--- OUTSIDE RECORDS SUMMARY | 2024-04-10 13:41 | XMS_ITS | Encounter Summary ---
Author Organization [facility] Address [facility] [place] [address] Care Team Providers Care Hearing Aid Mechanic Name Role Phone Kerry Ascencio Primary Care Provider + Encounter Details Date Type Department Care Team (Latest Contact Info) Description 09/05/2021 9:20 AM EST Ext Surgery or Single Event [facility] [address] [place] [address] Cortez Cleary MD [facility] [place] [address] Chest pain, unspecified type Social History Tobacco Use Types Packs/Day Years [...] Progress Notes * Cortez Cleary MD - 09/05/2021 9:20 AM EST Lexiscan MIBI Stress Test- Final Report Agatha Yi 1960 [facility] Referring: Fouzia Indication: Non-diagnostic ETT Date: 09/06/2021 Clinical: Max Exercise: Lexiscan 0.4mg IV Symptoms: none EKG Baseline: nsr, nssttw Ischemic Changes: none Arrhythmias: none Details: Rest Images: 9.8 mC MIBI, SPECT: -no perfusion deficit Stress Images: 27.5 mC MIBI, SPECT: -no perfusion deficit Gated Images: no wall motion abnormalities, EF normal, no TID IMPRESSION: No ischemia or infarct pattern. Normal left ventricular function. Electronically Signed: Cortez Cleary MD, 09/06/2021 4:25 PM documented in this encounter Plan of Treatment Upcoming Encounters Date Type Department Care Team (Late st Contact Info) Description 04/28/2024 1:40 PM EDT Office Visit Cardiology at [address] [phone] Cody Martinez MD [facility] [place] [address] 05/27/2024 11:20 AM EDT Office Visit Dermatology at [address] [phone] 06/13/2024 9:00 AM EDT [place] [phone] Kelly Miller LODGING FACILITIES MANAGER [facility] [place] [address] 06/13/2024 10:00 AM EDT Laboratory Appointment Lab [address] [place] [phone] 06/13/2024 11:00 AM EDT Office [place] [phone] Kelly Miller LODGING FACILITIES MANAGER [facility] [place] [address] 10/22/2024 10:30 AM EST Office Visit [place] [address] Marialuisa Peres MD [facility] [place] [address] documented as of this encounter Procedures Procedure Name Priority Date/Time Associated Diagnosis Comments STRESS TEST SCAN 09/05/2021 12:0 0 AM EST ECG SCAN 09/05/2021 12:00 AM EST documented in this encounter Results * SCAN DOC: STRESS TEST (09/05/2021 12:00 AM EST) Anatomical Region Laterality Modality Other Unknown MEDIA MGR SCAN EXT O RDR/RSLT * SCAN DOC: ECG (09/05/2021 12:00 AM EST) Unknown MEDIA MGR SCAN EXT O RDR/RSLT documented in this encounter Visit Diagnoses Diagnosis Chest pain, unspecified type documented in this encounter Care Teams Hearing Aid Mechanic Relationship Specialty Start Date End Date Kerry Ascencio PA [address] [place] [address] [place] [address] PCP - General Internal Medicine 01/29/21 documented as of this encounter
--- OUTSIDE RECORDS SUMMARY | 2024-04-10 13:41 | XMS_ITS | Encounter Summary ---
Author Organization [facility] [place] [address] Care Team Providers Care Physical Science Aide Name Role Phone Kerry Ascencio Primary Care Provider + Encounter Details Date Type Department Care Team (Late st Contact Info) Description 11/24/2021 Telephone Ophthalmology at [facility] [place] [address] Carolee Harrison MD [facility] [place] [address] Social History Tobacco Use Types Packs/Day Years [...] * Telephone Encounter - Chanelle Calixto - 12/01/2021 1:30 PM EDT Schedyked * Telephone Encounter - Conchita Mckeon COT - 11/24/2021 4:15 PM EST Patient called with general questions about recent visit with DM. Asking about [facility] and referral for glaucoma consult. Questions answered. She should be getting a call regarding scheduling. documented in this encounter Plan of Treatment Upcoming Encounters Date Type Department Care Team (Late st Contact Info) Description 04/28/2024 1:40 PM EDT Office Visit Cardiology at [address] [phone] Cody Martinez MD [facility] [place] [address] 05/27/2024 11:20 AM EDT Office Visit Dermatology at [address] [phone] 06/13/2024 9:00 AM EDT Appointment [place] [phone] Kelly Miller APRN [facility] [place] [address] 06/13/2024 10:00 AM EDT Laboratory Appointment Lab 3[place] [address] 06/13/2024 11:00 AM EDT Office Visit [place] [phone] Kelly Miller APRN [facility] [place] [address] 10/22/2024 10:30 AM EST Office Visit Weight [place] [phone] Marialuisa Peres MD [facility] [place] [address] documented as of this encounter Visit Diagnoses Not on filedocumented in this encounter Care Teams Physical Science Aide Relationship Specialty Start Date End Date Kerry Ascencio PA [address] [place] [address] [place] [address] PCP - General Internal Medicine 01/29/21 documented as of this encounter
--- OUTSIDE RECORDS SUMMARY | 2024-04-10 13:41 | XMS_ITS | Encounter Summary ---
[place] [address] Care Team Providers Care Correctional Agency Director Name Role Phone Kerry Ascencio Primary Care Provider + Encounter Details Date Type Department Care Team (Late st Contact Info) Description 09/22/2021 Telephone Cardiology at [address] [phone] Ally Meza, RN Social History Tobacco Use [...] Telephone Encounter - Ally Meza, RN - 09/22/2021 8:42 AM EST Call from [place],states she has developed a red,swollen,painful and itchy rash under and around the Zio patch.No open or draining areas noted. She has been wearing this since Sunday09/19/21-she will carefully remove the Zio patch today,box it up and send it back to the company. Instructed in need to wash area gently with warm soapy water,rinse well and leave exposed to air asable. Anay voices good understanding of this,is agreeable with these directions and will contact this office or PCP should skin irritation worsen. Forward to Nerissa Pimentel APRN documented in this encounter Plan of Treatment Upcoming Encounters Date Type Department Care Team (Late st Contact Info) Description 04/28/2024 1:40 PM EDT Office Visit Cardiology at [address] [phone] Cody Martinez MD [facility] [place] [address] 05/27/2024 11:20 AM EDT Office Visit Dermatology at [address] [phone] 06/13/2024 9:00 AM EDT [place] [phone] Kelly Miller APRN [facility] [place] [address] 06/13/2024 10:00 AM EDT Laboratory Appointment Lab [address] [address] 06/13/2024 11:00 AM EDT Office [place] [address] Kelly Miller APRN [facility] [place] [address] 10/22/2024 10:30 AM EST Office Visit [place] [address] Marialuisa Peres MD [facility] [place] [address] documented as of this encounter Visit Diagnoses Not on filedocumented in this encounter Care Teams Correctional Agency Director Relationship Specialty Start Date End Date Kerry Ascencio PA [address] [place] [address] [place] [address] PCP - General Internal Medicine 01/29/21 documented as of this encounter
--- OUTSIDE RECORDS SUMMARY | 2024-04-10 13:41 | XMS_ITS | Encounter Summary ---
Author Organization [facility] [place] [address] Care Team Providers Care Aviation Safety Inspector Name Role Phone Jennifer Gallagher WIRER PASSENGER CAR Primary Care Provider + Encounter Details Date Type Department Care Team (Late st Contact Info) Description 01/04/2021 Ancillary Procedure [place] [address] Kerry Ascencio PA [address] [place] [address] [place], [place] [address] Social History Tobacco Use Types Packs/Day Years Used Date Smoking Tobacco: Former Smokeless Tobacco: Never Sex and Gender Information Value Date Recorded Sex Assigned at Not on file Gender Identity Not on file Sexual Orientation Not on file documented as of this encounter Plan of Treatment Upcoming Encounters Date Type Department Care Team (Late st Contact Info) Description 04/28/2024 1:40 PM EDT Office Visit Cardiology at [address] [phone] Cody Martinez MD [facility] [place] [address] 05/27/2024 11:20 AM EDT Office Visit Dermatology at [facility] [address] [place] [phone] 06/13/2024 9:00 AM EDT Appointment [place] [address] Kelly Miller APRN [facility] [place] [address] 06/13/2024 10:00 AM EDT Laboratory Appointment Lab [address] [place] [phone] 06/13/2024 11:00 AM EDT Office Visit [place] [phone] Kelly Miller WIRER PASSENGER CAR [facility] [place] [address] 10/22/2024 10:30 AM EST Office Visit Weight [place] [phone] Marialuisa Peres MD [facility] [place] [address] documented as of this encounter Procedures Procedure Name Priority Date/Time Associated Diagnosis Comments FILM LIBRARY STORAGE ONLY DX SHOULDER Routine 01/04/2021 12:00 AM EDT documented in this encounter Results * Film Library- Storage Only DX Shoulder (01/04/2021 12:00 AM EDT) Narrative [facility] - 08/23/2023 4:27 PM EST This exam is auto-finalizing. It's purpose is for storage only. Kerry MILLS IMFidelina FILM LIBRARY ORDERABLES [place], [place] documented in this encounter Visit Diagnoses Not on filedocumented in this encounter Care Teams Aviation Safety Inspector Relationship Specialty Start Date End Date Jennifer Gallagher APRN NPI: [id number] [place] [address] [address] [place] [address] PCP - General Family Medicine 10/30/17 01/28/21 documented as of this encounter
--- OUTSIDE RECORDS SUMMARY | 2024-04-10 13:41 | XMS_ITS | Encounter Summary ---
[place] [address] Care Team Providers Care Information Management Manager Name Role Phone Kerry Ascencio Primary Care Provider + Encounter Details Date Type Department Care Team (Late st Contact Info) Description 12/16/2021 Telephone Cardiology at [address] [phone] Julissa Mason RN Social History Tobacco Use [...] Telephone Encounter - Julissa Mason RN - 12/16/2021 8:46 AM EDT Return call to patient who states that she was seen in the ED at [facility] yesterday for palpitations. She was advised to return to the hospital today to get a Holter monitor which she will wear for 48 hours over the weekend and return to [facility] on Sunday12/19/21. Patient currently scheduled for f/u with Dr. Martinez on Sunday12/20/21 and is hoping that the results of the Holter will be back by then. Advised patient that I would ask our scheduling staff to obtain ED notes from [place] for review by Dr. Martinez. Patient verbalized her understanding and will contact this office if she has further concerns. Julissa Mason RN, BSN Ambulatory Cardiology Department documented in this encounter Plan of Treatment Upcoming Encounters Date Type Department Care Team (Late st Contact Info) Description 04/28/2024 1:40 PM EDT Office Visit Cardiology at [place] [phone] Cody Martinez MD [facility] [place] [address] 05/27/2024 11:20 AM EDT Office Visit Dermatology at [address] [phone] 06/13/2024 9:00 AM EDT Appointment Ultrasound at [place] [phone] Kelly Miller APRN [facility] [place] [place] [address] 06/13/2024 10:00 AM EDT Laboratory Appointment Lab [address] [place] [address] 06/13/2024 11:00 AM EDT Office [place] [phone] Kelly Miller APRN [facility] [place] [place] [address] 10/22/2024 10:30 AM EST Office Visit [place] [address] Marialuisa Peres MD [facility] [place] [address] documented as of this encounter Visit Diagnoses Not on filedocumented in this encounter Care Teams Information Management Manager Relationship Specialty Start Date End Date Kerry Ascencio PA [address] [place] [address] [place] [address] PCP - General Internal Medicine 01/29/21 documented as of this encounter
--- OUTSIDE RECORDS SUMMARY | 2024-04-10 13:41 | XMS_ITS | Encounter Summary ---
Author Organization [facility] Address [facility] [place] [address] Care Team Providers Care Speech Therapy Assistant Name Role Phone Kerry Ascencio Primary Care Provider + Reason for Visit * Reason Onset Date Comments Eye Problem 07/04/2021 Encounter Details Date Type Department Care Team (Late st Contact Info) Description 07/04/2021 Telephone Ophthalmology at [facility] [address] Carolee Harrison MD [facility] [place] [address] Eye Problem Social History Tobacco Use Types Packs/Day Years [...] Telephone Encounter - Pastora Wallace, COT - 07/04/2021 11:01 AM EDT Pt states yest she had a sensation of a film over OU that lasted all day. Today it is better but vastill seems blurred for distance. I suggested pt call local optom to see if it was glasses related and if not they would refer her here. Otherwise pt has an appt on 09/01/2021. * Telephone Encounter - DurgaJasonChanelle M - 07/04/2021 9:08 AM EDT Which eye: Both Onset: yesterday Duration: 24 hours New problem vs ongoing: new problem Do symptoms come/go or constant or worsening: constant Does the patient have a routine eye provider: Christy Have they been seen for this problem by their provider & if so, when: last seen 05/05/2021 Brief description/details of problem in patients words: looked like a shade was pulled down over eyes Action taken? (Appt booked, phone call transferred to, etc): message sent to triage documented in this encounter Plan of Treatment Upcoming Encounters Date Type Department Care Team (Late st Contact Info) Description 04/28/2024 1:40 PM EDT Office Visit Cardiology at [address] [phone] Cody Martinez MD [facility] [place] [address] 05/27/2024 11:20 AM EDT Office Visit Dermatology at [address] [phone] 06/13/2024 9:00 AM EDT [place] [phone] Kelly Miller APRN [facility] [place] [address] 06/13/2024 10:00 AM EDT Laboratory Appointment Lab [address] [place] [phone] 06/13/2024 11:00 AM EDT Office [place] [address] Kelly Miller APRN [facility] [place] [address] 10/22/2024 10:30 AM EST Office Visit Weight [place] [phone] Marialuisa Peres MD [facility] [place] [address] documented as of this encounter Visit Diagnoses Not on filedocumented in this encounter Care Teams Speech Therapy Assistant Relationship Specialty Start Date End Date Kerry Ascencio PA [address] [place] [address] [place] [address] PCP - General Internal Medicine 01/29/21 documented as of this encounter
--- OUTSIDE RECORDS SUMMARY | 2024-04-10 13:41 | XMS_ITS | Encounter Summary ---
Author Organization [facility] Address [facility] [place] [address] Care Team Providers Care Senior Marketing Associate Name Role Phone Kerry Ascencio Primary Care Provider + Reason for Visit * Reason Comments Visual Disturbance Encounter Details Date Type Department Care Team (Late st Contact Info) Description 10/26/2021 1:15 PM EST Office [place] [address] Erwin Santoyo MD [facility] DR OPHTHALMOLOGY [place] [address] Visual disturbance Social History Tobacco Use Types [...] as of this encounter Progress Notes * Erwin Herrmann MD - 10/26/2021 1:15 PM EST Agatha Yi reports some longstanding visual disturbance in the right eye. On examination today, Agatha Yi exhibited 20/100 vision in the right eye, 20/40 vision in the left eye. Moderate color vision, with no evidence of a relative afferent pupillary defect that would suggest an underlying optic nerve dysfunction. The intraocular pressures were normal in each eye. Static visual mohamud revealed a rim artifact in the right eye, and no specific depressed points in the left eye. Sensorimotor examination revealed full extraocular movements in each eye. Agatha Yi was orthophoric in all directions of gaze. Dilated eye examination revealed normal anterior segment structures, with milky cataract. The opticnerves are healthy and pink bilaterally. The maculae and peripheral retina was normal in each eye. The OCT revealed normal RNFL of both optic nerves. DFE reassuring today. CINDY testing was 20/40 in the right eye. Recommend stand- alone GVF. documented in this encounter Plan of Treatment Upcoming Encounters Date Type Department Care Team (Late st Contact Info) Description 04/28/2024 1:40 PM EDT Office Visit Cardiology at [address] [phone] Cody Martinez MD [facility] [place] [address] 05/27/2024 11:20 AM EDT Office Visit Dermatology at [address] [address] 06/13/2024 9:00 AM EDT [place] [address] Kelly Miller APRN [facility] [place] [address] 06/13/2024 10:00 AM EDT Laboratory Appointment Lab 3[address] [place] [address] 06/13/2024 11:00 AM EDT Office [place] [address] Kelly Miller APRN [facility] [place] [address] 23 10/22/2024 10:30 AM EST Office Visit Weight and Wellness at [facility] [place] [address] Marialuisa Peres MD [facility] [place] [place] [address] documented as of this encounter Procedures Procedure Name Priority Date/Time Associated Diagnosis Comments OCT OPTIC NERVE - OU - BOTH EYES Routine 10/26/2021 2:44 PM EST Visual disturbance FUNDUS PHOTOS - OU- BOTH EYES Routine 10/26/2021 2:44 PM EST Visual disturbance AUTOMATED VISUAL FIELD - EXTENDED - OU- BOTH EYES Routine 10/26/2021 2:43 PM EST Visual disturbance documented in this encounter Results * Oct Optic Nerve - OU - Both Eyes (10/26/2021 2:44 PM EST) Anatomical Region Laterality Modality Other Narrative 10/26/2021 2:44 PM EST Right Eye Quality was good. Findings include normal observations. Temporal thickness was normal. Superior thickness was normal. Nasal thickness was normal. Inferior thickness was normal. Left Eye Quality was good. Findings include normal observations. Temporal thickness was normal. Superior thickness was normal. Nasal thickness was normal. Inferior thickness was normal. Notes [place] [employer] OCT OD: ??Average RNFL: 106, classification = wnl OS: ??Average RNFL: 106, classification = wnl Implication: No thinning or swelling OU. Erwin Santoyo MD OPHTHALMOLOGY SE RVICES ORDERABLES * Fundus Photos - OU - Both Eyes (10/26/2021 2:44 PM EST) Anatomical Region Laterality Modality Other Narrative 10/26/2021 2:44 PM EST Right Eye Disc findings include normal observations. Vessel findings include normal observations. Periphery findings include normal observations. Left Eye Disc findings include normal observations. Vessel findings include normal observations. Periphery findings include normal observations. Notes Normal discs Erwin Santoyo MD OPHTHALMOLOGY SE RVICES ORDERABLES * Automated Visual Field - Extended - OU - Both Eyes (10/26/2021 2:43 PM EST) Anatomical Region Laterality Modality Other Narrative 10/26/2021 2:43 PM EST Right Eye Threshold was 24-2. Strategy was YASMIN. Left Eye Threshold was 24-2. Strategy was YASMIN. Notes Static visual mohamud revealed a rim artifact in the right eye, and no specific depressed points in the left eye. Erwin Santoyo MD OPHTHALMOLOGY SE RVICES ORDERABLES documented in this encounter Visit Diagnoses Diagnosis Visual disturbance Unspecified visual disturbance documented in this encounter Care Teams Senior Marketing Associate Relationship Specialty Start Date End Date Kerry Ascencio PA [address] [place] [address] [place] [address] PCP - General Internal Medicine 01/29/21 documented as of this encounter
--- OUTSIDE RECORDS SUMMARY | 2024-04-10 13:41 | XMS_ITS | Encounter Summary ---
[place] [address] Care Team Providers Care Sales Apprentice Name Role Phone Kerry Ascencio Primary Care Provider + Encounter Details Date Type Department Care Team (Late st Contact Info) Description 09/14/2021 Telephone Cardiology at [address] [phone] Ally Meza, RN Social History Tobacco Use [...] Telephone Encounter - Ally Meza, RN - 09/14/2021 2:08 PM EST Hot Call page from scheduling glass etcher helper Susie: Agatha states she has noticed an increasing flip flop sensation as well as left sided chest painand pressure occurring 3-4 x over this past week. Denies radiation of chest pain and states it lasts only minutes,dissapates with time. Increased shortness of breath today as well as increased lightheadedness. Denies nausea and no vomiting. States BP has been elevated this week as well 150's/80's. Recommend she be assessed in her local Walk-in Clinic or ED depending on what closer and more available for her-instructed her not to drive-she voices good understanding and is agreeable with this plan. She will contact this RN/this office tomorrow 09/15 with update. Update voice message from Agatha: States she was seen in her Urgent Care Center in [place] 09/14/21,states she was told her EKG wasnormal,states she declined having any labs completed,states she was instructed to return home andlay low-take NTG prn chest pain and return to Urgent Care as needed .She will follow up with Nerissa Pimentel Sunday09/19/21. documented in this encounter Plan of Treatment Upcoming Encounters Date Type Department Care Team (Late st Contact Info) Description 04/28/2024 1:40 PM EDT Office Visit Cardiology at [address] [phone] Cody Martinez MD [facility] [place] [address] 05/27/2024 11:20 AM EDT Office Visit Dermatology at [address] [phone] 06/13/2024 9:00 AM EDT [place] [address] Kelly Miller APRN [facility] [place] [address] 06/13/2024 10:00 AM EDT Laboratory Appointment Lab [address] [place] [address] 06/13/2024 11:00 AM EDT Office [place] [phone] Kelly Miller APRN [facility] [place] [address] 10/22/2024 10:30 AM EST Office Visit [place] [phone] Marialuisa Peres MD [facility] [place] [address] documented as of this encounter Visit Diagnoses Not on filedocumented in this encounter Care Teams Sales Apprentice Relationship Specialty Start Date End Date Kerry Ascencio PA [address] [place] [address] [place] [address] PCP - General Internal Medicine 01/29/21 documented as of this encounter
--- OUTSIDE RECORDS SUMMARY | 2024-04-10 13:41 | XMS_ITS | Encounter Summary ---
[place] [address] Care Team Providers Care Hand Rigger Name Role Phone Kerry Ascencio Primary Care Provider + Encounter Details Date Type Department Care Team (Late st Contact Info) Description 12/20/2021 Telephone Cardiology at [address] [phone] Ally Meza, RN Social History Tobacco Use [...] Telephone Encounter - Ally Meza, RN - 12/20/2021 11:47 AM EDT Call from Agatha,states she has experienced sharp chest pain twice today,lasting only a few minutes. Denies chest pressure and no increased shortness of breath. States she has noted a numb sensation to her left arm as well as into the left side of her neck,she adds that she has bilateral rotator cuff problems as well (left >right). NOTE: she is not experiencing these symptoms during this conversation-she is not at home at time ofthis call and not able to access her SLNTG-instructed her in need to carry this with her at all times-she expresses good understanding and is agreeable.Instructed her also in how to use SLNTG and theimportance of calling 911 should her chest pain not subside after the 3rd dose. Denies nausea and no vomiting,denies lightheadedness. Admits to increased shortness of breath over the past week not associated with chest pain and notedmostly with activity. Seeing Dr Martinez with an echo prior 12/21/21-will seek eval in local ED or call 911 should her symptoms worsen and per SLNTG use instructions noted above. documented in this encounter Plan of Treatment Upcoming Encounters Date Type Department Care Team (Late st Contact Info) Description 04/28/2024 1:40 PM EDT Office Visit Cardiology at [address] [phone] Cody Martinez MD [facility] DR CARDIOLOGY DEPT. [place], [place] [phone] 05/27/2024 11:20 AM EDT Office Visit Dermatology at [address] [phone] 06/13/2024 9:00 AM EDT [place] [address] Kelly Miller APRN [facility] GASTROENTEROLOGY [place], [place] [phone] 06/13/2024 10:00 AM EDT Laboratory Appointment Lab [address] [place] [address] 06/13/2024 11:00 AM EDT Office [place] [phone] Kelly Miller APRN [facility] [place] [address] 10/22/2024 10:30 AM EST Office Visit [place] [address] Marialuisa Peres MD [facility] [place] [address] documented as of this encounter Visit Diagnoses Not on filedocumented in this encounter Care Teams Hand Rigger Relationship Specialty Start Date End Date Kerry Ascencio PA [address] [place] [address] [place] [address] PCP - General Internal Medicine 01/29/21 documented as of this encounter
--- OUTSIDE RECORDS SUMMARY | 2024-04-10 13:41 | XMS_ITS | Encounter Summary ---
Author Organization [facility] Address [facility] [place] [address] Care Team Providers Care Accounting Clerks Supervisor Name Role Phone Kerry Ascencio Primary Care Provider + Encounter Details Date Type Department Care Team (Late st Contact Info) Description 02/15/2021 [place] [address] Tati Gutierrez OD [facility] DR [place] [address] Social History Tobacco Use Types Packs/Day Years Used Date Smoking Tobacco: Former Smokeless Tobacco: Never Sex and Gender Information Value Date Recorded Sex Assigned at Not on file Gender Identity Not on file Sexual Orientation Not on file documented as of this encounter Miscellaneous Notes * Telephone Encounter - Emmy Michael - 02/15/2021 3:30 PM EDT Patient called to see if we have received a referral from Dr. Al from [facility].I checked onbase and did not see one. I asked her to call them and have them send again. I also made sure she had the correct fax number. Pt is going to call them and ask them to resend the referral. * Telephone Encounter - Pastora Baires - 02/15/2021 3:30 PM EDT Patient called to check to see if we have received a referral from mikaela. I checked all the bins and we have not received it. She will be checking with Mikaela and have them call us to discuss on how to send us the referral. documented in this encounter Plan of Treatment Upcoming Encounters Date Type Department Care Team (Late st Contact Info) Description 04/28/2024 1:40 PM EDT Office Visit Cardiology at [address] [phone] Cody Martinez MD [facility] [place] [address] 05/27/2024 11:20 AM EDT Office Visit Dermatology at [address] [phone] 06/13/2024 9:00 AM EDT [place] [address] Kelly Miller APRN [facility] [place] [address] 06/13/2024 10:00 AM EDT Laboratory Appointment Lab [place] [address] 06/13/2024 11:00 AM EDT Office [place] [address] Kelly Miller APRN [facility] [place] [address] 10/22/2024 10:30 AM EST Office Visit [place] [phone] Marialuisa Peres MD [facility] [place] [address] documented as of this encounter Visit Diagnoses Not on filedocumented in this encounter Care Teams Accounting Clerks Supervisor Relationship Specialty Start Date End Date Kerry Ascencio PA [address] [place] [address] [place] [address] PCP - General Internal Medicine 01/29/21 documented as of this encounter
--- OUTSIDE RECORDS SUMMARY | 2024-04-10 13:41 | XMS_ITS | Encounter Summary ---
Author Organization [facility] Address [facility] [place] [address] Care Team Providers Care Bilingual Inside Sales Representative Name Role Phone Kerry Ascencio Primary Care Provider + Encounter Details Date Type Department Care Team (Late st Contact Info) Description 09/14/2021 Orders Only Cardiology at [address] [phone] Nerissa Pimentel APRN [facility] [place] [address] ASCVD (arteriosclerotic cardiovascular disease) (Primary Dx) Social History Tobacco Use Types Packs/Day Years [...] PM EDT Office Visit Cardiology at [address] [phone] Cody Martinez MD [facility] [address] 05/27/2024 11:20 AM EDT Office Visit Dermatology at [facility] [address] [place] [address] 06/13/2024 9:00 AM EDT [place] [phone] Kelly Miller APRN [facility] [place] [address] 06/13/2024 10:00 AM EDT Laboratory Appointment Lab [address] [place] [address] 06/13/2024 11:00 AM EDT Office [place] [phone] Kelly Miller, JU [facility] [place] [address] 10/22/2024 10:30 AM EST Office Visit [place] [phone] Marialuisa Peres MD [facility] [place] [address] documented as of this encounter Visit Diagnoses Diagnosis ASCVD (arteriosclerotic cardiovascular disease)- Primary Unspecified cardiovascular disease documented in this encounter Care Teams Bilingual Inside Sales Representative Relationship Specialty Start Date End Date Kerry Ascencio PA [address] [place] [address] [place] [address] PCP - General Internal Medicine 01/29/21 documented as of this encounter
--- OUTSIDE RECORDS SUMMARY | 2024-04-10 13:41 | XMS_ITS | Encounter Summary ---
Author Organization [facility] Address [facility] [place] [address] Care Team Providers Care Inventory Control Associate Name Role Phone Kerry Ascencio Primary Care Provider + Reason for Visit * Reason Comments Eye Problem * Consultation (Routine) - Closed Specialty Diagnoses / Procedures Referred By Clari dickey Referred To Contact Ophthalmology Diagnoses retina Aron Baez, [address] [place] [address] Carolee Harrison MD [facility] [place] [address] Referral ID Status Reason Start Date Expiration Date V isits Requested Visits Authorized [id number] Closed Consult, Test & Treat 02/22/2021 02/22/2022 1 1 Encounter Details Date Type Department Care Team (Late st Contact Info) Description 04/20/2021 1:45 PM EDT Office Visit Ophthalmology at [facility] [place] [address] Carolee Harrison MD [facility] [place] [address] Visual disturbance Social History Tobacco Use Types [...] as of this encounter Progress Notes * Carolee Harrison MD - 04/20/2021 1:45 PM EDT ASSESSMENT/PLAN: 1. Visual disturbance Visual Acuity Visual Acuity (Snellen - Linear) Right Left Dist sc 20/200 -2 20/30 Dist ph sc 20/80 NI Near cc 20/400 20/25 Can see 1 letter on each line down to 20/100 Tonometry Tonometry (Applanation, 2:02 PM) Right Left Pressure 16 17 Squeezes eyelids and blinks a lot 1. Visual disturbances/ entopsias OD Today's exam and multimodal imaging was only significant for syneuresis without any vision threatening conditions. Education and reassurance provided. Follow up 4mo for HVF Cornelia fast 24-2, DFE, OCT OU Sooner PRN I, Soraya Hamilton, COA, have performed the documentation for this encounter in the presence of, and acting as a scribe for Carolee Harrison MD. I performed the services which were documented by the scribe, and I agree with the accuracy of the documentation in this encounter. Carolee Harrison MD, PhD documented in this encounter Plan of Treatment Upcoming Encounters Date Type Department Care Team (Late st Contact Info) Description 04/28/2024 1:40 PM EDT Office Visit Cardiology at [address] [phone] Cody Martinez MD [facility] [place] [address] 05/27/2024 11:20 AM EDT Office Visit Dermatology at [facility] [address] [place] [address] 06/13/2024 9:00 AM EDT [place] [address] Kelly Miller APRN [facility] [place] [address] 06/13/2024 10:00 AM EDT Laboratory Appointment Lab [address] [place] [phone] 06/13/2024 11:00 AM EDT Office [place] [address] Kelly Miller APRN [facility] [place] [address] 10/22/2024 10:30 AM EST Office Visit Weight and Wellness at [place] [phone] Marialuisa Peres MD [facility] [place] [address] documented as of this encounter Procedures Procedure Name Priority Date/Time Associated Diagnosis Comments FLUORESCEIN ANGIOGRAPHY - OU - BOTH EYES Routine 04/20/2021 4:25 PM EDT Visual disturbance ICG - OU- BOTH EYES Routine 04/20/2021 4 :25 PM EDT Visual disturbance OCT RETINA - OU - BOTH EYES Routine 04/20/2021 3:48 PM EDT Visual disturbance documented in this encounter Results * Fluorescein Angiography - OU - Both Eyes (04/20/2021 4:25 PM EDT) Anatomical Region Laterality Modality Other Narrative 04/20/2021 4:25 PM EDT Right Eye Early phase findings include normal observations. Mid/Late phase findings include normal observations. Choroidal neovascularization is not present. Left Eye Early phase findings include normal observations. Mid/Late phase findings include normal observations. Choroidal neovascularization is not present. Notes Media opacities OD Carolee Harrison MD OPHTHALMOLOGY SERVICES ORDERABLES * ICG - OU - Both Eyes (04/20/2021 4:25 PM EDT) Anatomical Region Laterality Modality Other Narrative 04/20/2021 4:25 PM EDT Right Eye Progression has no prior data. Early phase findings include normal observations. Mid/Late phase findings include normal observations. Left Eye Progression has no prior data. Early phase findings include normal observations. Mid/Late phase findings include normal observations. Notes Media opacities OD Carolee Harrison MD OPHTHALMOLOGY SERVICES ORDERABLES * OCT Retina - OU - Both Eyes (04/20/2021 3:48 PM EDT) Anatomical Region Laterality Modality Other Narrative 04/20/2021 3:48 PM EDT Right Eye Quality was good. Scan locations included subfoveal. Progression has no prior data. Findings include normal foveal contour. Left Eye Quality was good. Scan locations included subfoveal. Progression has no prior data. Findings include normal foveal contour. Carolee Harrison MD OPHTHALMOLOGY SERVICES ORDERABLES documented in this encounter Visit Diagnoses Diagnosis Visual disturbance Unspecified visual disturbance documented in this encounter Care Teams Inventory Control Associate Relationship Specialty Start Date End Date Kerry Ascencio PA [address] [place] [address] [place] [address] PCP - General Internal Medicine 01/29/21 documented as of this encounter
--- OUTSIDE RECORDS SUMMARY | 2024-04-10 13:41 | XMS_ITS | Encounter Summary ---
Author Organization Formerly [facility] [place] [address] Care Team Providers Care Mine Equipment Design Engineer Name Role Phone Kerry Ascencio Primary Care Provider + Reason for Visit * Reason Comments Medication Refill Encounter Details Date Type Department Care Team (Late st Contact Info) Description 12/17/2021 Refill Cardiology at [address] [address] Nerissa Pimentel APRN [facility] [place] [address] Medication Refill Social History Tobacco Use Types [...] PM EDT Office Visit Cardiology at [address] [phone] Cody Martinez MD [facility] [address] 05/27/2024 11:20 AM EDT Office Visit Dermatology at [facility] [address] [place] [address] 06/13/2024 9:00 AM EDT Appointment [place] [phone] Kelly Miller APRN [facility] [place] [address] 06/13/2024 10:00 AM EDT Laboratory Appointment Lab [address] [place] [address] 06/13/2024 11:00 AM EDT Office Visit [place] [phone] Kelly Miller, JU [facility] [place] [address] 10/22/2024 10:30 AM EST Office Visit Weight [place] [address] Marialuisa Peres MD [facility] [place] [address] documented as of this encounter Visit Diagnoses Not on filedocumented in this encounter Care Teams Mine Equipment Design Engineer Relationship Specialty Start Date End Date Kerry Ascencio PA [address] [place] [address] [place] [address] PCP - General Internal Medicine 01/29/21 documented as of this encounter
--- OUTSIDE RECORDS SUMMARY | 2024-04-10 13:41 | XMS_ITS | Encounter Summary ---
[place] [address] Care Team Providers Care Yarn Twister Name Role Phone Kerry Ascencio Primary Care Provider + Encounter Details Date Type Department Care Team (Late st Contact Info) Description 12/15/2021 Telephone Cardiology at [address] [phone] Nayla Burnett, RN Social History Tobacco Use Types Packs/Day [...] Telephone Encounter - Nayla Burnett, RN - 12/15/2021 10:43 AM EDT VM from patient reporting that she is having a colonoscopy done on 12/20 and her provider at [facility] in [facility] has requested cardiac clearance before this can be done. TC to patient who reports she received a call from surgical associates stating they could fit her in to a cancellation spot on 12/20 for her colonoscopy, but that they need cardiac clearance first for anesthesia. Patient is scheduled for an echo and appointment with Dr. Martinez on 12/21. She is asking if she is able to get cardiac clearance before this. Informed patient that this field underwriter would send her request to the 2 providers that have seen her in this clinic, who are not here today. She is aware that she may not have cardiac clearance before this appointment and states she will rescheduleif she needs to. From 09/19/2021 visit note with Nerissa Pimentel: ASCVD Chest pain Lightheadedness Chest pains have [...] so we can increase dose as indicated. ?? HTN Despite reports of SBPs 140s for a couple of days at home recently, BP is well controlled today andshe tells me it was also well controlled at Urgent Care the other day. Adding amlodipine for anginal symptoms. ?? Follow up: 2-3 months, will call with Zio and echo results Will send request to Dr. Martinez as patient requested, as well as, Nerissa Pimentel who was the last provider to see the patient. Nayla Burnett nuclear physics professor Clinic at [facility] [phone] documented in this encounter Plan of Treatment Upcoming Encounters Date Type Department Care Team (Late st Contact Info) Description 04/28/2024 1:40 PM EDT Office Visit Cardiology at [address] [phone] Cody Martinez MD [facility] CARDIOLOGY DEPT. [place] [phone] 05/27/2024 11:20 AM EDT Office Visit Dermatology at [facility] [address] [place] [address] 06/13/2024 9:00 AM EDT Appointment [place] [address] Kelly Miller APRN [facility] [place] [address] 06/13/2024 10:00 AM EDT Laboratory Appointment Lab [address] [place] [phone] 06/13/2024 11:00 AM EDT Office Visit [place] [address] Kelly Miller, COMPLAINT MANAGER [facility] [place] [address] 10/22/2024 10:30 AM EST Office Visit Weight [place] [phone] Marialuisa Peres MD [facility] [place] [address] documented as of this encounter Visit Diagnoses Not on filedocumented in this encounter Care Teams Yarn Twister Relationship Specialty Start Date End Date Kerry Ascencio PA [address] [place] [address] [place] [address] PCP - General Internal Medicine 01/29/21 documented as of this encounter
--- OUTSIDE RECORDS SUMMARY | 2024-04-10 13:41 | XMS_ITS | Encounter Summary ---
[place] [address] Care Team Providers Care Forensic Locksmith Name Role Phone Kerry Ascencio Primary Care Provider + Reason for Visit * Diagnostic Test (Routine) - Closed Specialty Diagnoses / Procedures Referred By Clari dickey Referred To Contact Radiology Diagnoses Solitary pulmonary nodule present on computed tomography of lung Procedures NM PET CT Skull Base to Mid-thigh Kerry Ascencio PA [address] [place] [address] [place] [address] [place] [address] Referral ID Status Reason Start Date Expiration Date V isits Requested Visits Authorized [id number] Closed Specialty Service Requested 09/15/2021 03/16/2023 1 1 Encounter Details Date Type Department Care Team (Late st Contact Info) Description 10/19/2021 11:43 AM EST - 10/19/2021 11:59 PM [facility] Hospital Encounter [place] [address] Kerry Ascencio PA [address] [place] [address] [address] [place] [phone] Discharge Disposition: Home Social History Tobacco Use [...] PM EDT Office Visit Cardiology at [address] [phone] Cody Martinez MD [facility] [place] [address] 05/27/2024 11:20 AM EDT Office Visit Dermatology at [address] [phone] 06/13/2024 9:00 AM EDT [place] [address] Kelly Miller APRN [facility] [place] [address] 06/13/2024 10:00 AM EDT Laboratory Appointment Lab [address] [phone] 06/13/2024 11:00 AM EDT Office [place] [address] Kelly Miller APRN [facility] [place] [address] 10/22/2024 10:30 AM EST Office Visit [place] [address] Marialuisa Peres MD [facility] [place] [address] documented as of this encounter Procedures Procedure Name Priority Date/Time Associated Diagnosis Comments NM PET CT SKULL BASE TO MID-THIGH ([facility]) Routine 10/19/2021 1:33 PM EST Solitary pulmonary nodule present on computed tomography of lung documented in this encounter Results * NM PET CT Skull Base to Mid-thigh (10/19/2021 1:33 PM EST) Anatomical Region Laterality Modality Positron Emissio n Tomography (PET) Impressions 10/20/2021 1:55 PM EST Unchanged, non-FDG avid nodular soft tissue adjacent to the right pulmonary vein has the appearance of a benign lymph node. I have personally reviewed the image(s) and the resident's interpretation and agree with the findings, Frederic Sales MD at 10/20/2021 1:55 PM Thank you for letting us participate in the care of this patient. ??If you are a health care provider and have any questions regarding this report, please contact the number below. ??For patients who have questions please contact the health care partner that requested your imaging first. ? Electronically signed by: Frederic Sales MD, [facility] ([phone]), at 10/20/2021 1:55 PM Narrative 10/20/2021 1:55 PM EST EXAMINATION: NM PET CT STANDARD SKULL BASE TO MID-THIGH CLINICAL HISTORY: Incidental 11X12 mm RLL nodule on CTA for PE at [facility] on 08/30/21 TECHNIQUE: Following IV injection of 72-vyfqrq-2-deoxyglucose (FDG) a standard uptake of approximately 60 minutes, a noncontrast CT scan followed by a PET scan were acquired from the base of the skull to mid thighs. The noncontrast CT was used for anatomic localization and photon attenuation correction of the PET scan. Blood glucose level: 81 (mg/dL) FDG dose: 12.3 mCi COMPARISON: None FINDINGS: HEAD/NECK: Diffusely increased FDG uptake in the thyroid is consistent with chronic thyroiditis. CHEST: Right medial lower thorax nodular soft tissue projecting adjacent to the right pulmonary vein is unchanged from previous CT and has no abnormal FDG uptake (axial image 95). No abnormal FDG activity is present in the chest. Coronary artery calcification is seen. ABDOMEN/PELVIS: Normal activity in all soft tissue regions. Non-FDG avid, approximately 3 cm left renal cyst (axial image 134). SKELETON/EXTREMITIES: Normal activity in all regions of the axial and visualized appendicular skeleton. No lytic or blastic lesion. Procedure Note Frederic Sales MD - 10/20/2021 EXAMINATION: NM PET CT STANDARD SKULL BASE TO MID-THIGH CLINICAL HISTORY: Incidental 11X12 mm RLL nodule on CTA for PE at [facility] on 08/30/21 TECHNIQUE: Following IV injection of 11-ncldfz-9-deoxyglucose (FDG) astandard uptake of approximately 60 minutes, a noncontrast CT scan followed by aPET scan were acquired from the base of the skull to mid thighs. The noncontrast CTwas used for anatomic localization and photon attenuation correction of thePET scan. Blood glucose level: 81 (mg/dL) FDG dose: 12.3 mCi COMPARISON: None FINDINGS: HEAD/NECK: Diffusely increased FDG uptake in the thyroid is consistent with chronic thyroiditis. CHEST: Right medial lower thorax nodular soft tissue projecting adjacent to theright pulmonary vein is unchanged from previous CT and has no abnormal FDGuptake (axial image 95). No abnormal FDG activity is present in the chest. Coronary artery calcification is seen. ABDOMEN/PELVIS: Normal activity in all soft tissue regions. Non-FDG avid, approximately 3 cm left renal cyst (axial image 134). SKELETON/EXTREMITIES: Normal activity in all regions of the axial and visualized appendicular skeleton. No lytic or blastic lesion. IMPRESSION Unchanged, non-FDG avid nodular soft tissue adjacent to the rightpulmonary vein has the appearance of a benign lymph node. I have personally reviewed the image(s) and the resident's interpretationand agree with the findings, Frederic Sales MD at 10/20/2021 1:55 PM Thank you for letting us participate in the care of this patient. If youare a health care provider and have any questions regarding this report,please contact the number below. For patients who have questions please contactthe health care partner that requested your imaging first. Electronically signed by: Frederic Sales MD, [facility]([phone]), at 10/20/2021 1:55 PM Kerry MILLS IMG PET ORDERABL ES documented in this encounter Visit Diagnoses Not on filedocumented in this encounter Care Teams Forensic Locksmith Relationship Specialty Start Date End Date Kerry Ascencio PA [address] [place] [address] [place] [address] PCP - General Internal Medicine 01/29/21 documented as of this encounter
--- OUTSIDE RECORDS SUMMARY | 2024-04-10 13:41 | XMS_ITS | Encounter Summary ---
Author Organization [facility] Address [facility] [place] [address] Care Team Providers Care Clinical Technician Name Role Phone Kerry Ascencio Primary Care Provider + Encounter Details Date Type Department Care Team (Late st Contact Info) Description 10/26/2021 Telephone Ophthalmology at [facility] [place] [address] Carolee Harrison MD [facility] [place] [address] Social History Tobacco Use Types Packs/Day Years [...] encounter Miscellaneous Notes * Telephone Encounter - Carine Jacobs - 10/26/2021 10:30 AM EST Called Agatha to discuss symptoms and determine urgency. She states she has had constant nasal VF cut and reduced visual acuity OD x1 month. She describes the VF cut as like looking through a telescope on the nasal side. Yesterday while riding in the car she had an episode of flashing blue lights OD. Discussed with Dr. Minor and agreed she should be seen today with DOC. Scheduled appt for 1:15 today with SK. * Telephone Encounter - Chanelle Calixto - 10/26/2021 9:59 AM EST Which eye: OD Onset: a few days Duration (24 hours, days, weeks, etc): days New problem vs ongoing: new Do symptoms come/go or constant or worsening: worsening Does the patient have a routine eye provider: Yes, Christy Have they been seen for this problem by their provider & if so, when: No something different Brief description/details of problem in patients words: OD is like looking through tunnel/telescope. Yesterday she was in passenger seat in car and 3 times she saw a blue like (like a carlos light) Action taken? (Appt booked, phone call transferred to, etc): message sent triage Best number: [phone] documented in this encounter Plan of Treatment Upcoming Encounters Date Type Department Care Team (Late st Contact Info) Description 04/28/2024 1:40 PM EDT Office Visit Cardiology at [address] [phone] Cody Martinez MD [facility] [place] [address] 05/27/2024 11:20 AM EDT Office Visit Dermatology at [address] [address] 06/13/2024 9:00 AM EDT Appointment [place] [phone] Kelly Miller APRN [facility] [place] [address] 06/13/2024 10:00 AM EDT Laboratory Appointment Lab [address] [place] [address] 06/13/2024 11:00 AM EDT Office Visit [place] [address] Kelly Miller APRN [facility] [place] [address] 10/22/2024 10:30 AM EST Office Visit Weight [place] [address] Marialuisa Peres MD [facility] [place] [address] documented as of this encounter Visit Diagnoses Not on filedocumented in this encounter Care Teams Clinical Technician Relationship Specialty Start Date End Date Kerry Ascencio PA [address] [place] [address] [place] [address] PCP - General Internal Medicine 01/29/21 documented as of this encounter
--- OUTSIDE RECORDS SUMMARY | 2024-04-10 13:41 | XMS_ITS | Encounter Summary ---
Author Organization [facility] Address [facility] [place] [address] Care Team Providers Care Cage Unloader Name Role Phone Kerry Ascencio Primary Care Provider + Reason for Visit * Reason Comments Blurred Vision Encounter Details Date Type Department Care Team (Late st Contact Info) Description 11/23/2021 3:15 PM EST Office [place] [address] Carolee Harrison MD [facility] [place] [address] Visual disturbance Social History Tobacco Use Types [...] Progress Notes * Carolee Harrison MD - 11/23/2021 3:15 PM EST ASSESSMENT/PLAN: No diagnosis found. Visual Acuity Visual Acuity (Snellen - Linear) Right Left Dist sc 20/400 20/25 +1 Dist ph sc 20/150 +1 Near cc 20/200 20/25+3 Tonometry Tonometry ([facility], 3:33 PM) Right Left Pressure 15 14 1. Visual disturbances/ entopsias OD Despite the abnormal VFs there are no striking abnormalities on exam and imaging. Refer to glaucoma Refer to glaucoma documented in this encounter Plan of Treatment Upcoming Encounters Date Type Department Care Team (Late st Contact Info) Description 04/28/2024 1:40 PM EDT Office Visit Cardiology at [address] [phone] Cody Martienz MD [facility] [place] [address] 05/27/2024 11:20 AM EDT Office Visit Dermatology at [address] [phone] 06/13/2024 9:00 AM EDT Appointment Ultrasound at [place] [phone] Kelly Miller APRN [facility] [address] 06/13/2024 10:00 AM EDT Laboratory Appointment Lab [address] [place] [address] 06/13/2024 11:00 AM EDT Office [place] [address] Kelly Miller APRN [facility] [place] [address] 10/22/2024 10:30 AM EST Office Visit [place] [address] Marialuisa Peres MD [facility] [address] documented as of this encounter Visit Diagnoses Diagnosis Visual disturbance Unspecified visual disturbance documented in this encounter Care Teams Cage Unloader Relationship Specialty Start Date End Date Kerry Ascencio PA [address] [place] [address] [place] [address] PCP - General Internal Medicine 01/29/21 documented as of this encounter
--- OUTSIDE RECORDS SUMMARY | 2024-04-10 13:41 | XMS_ITS | Encounter Summary ---
Author Organization [facility] [place] [address] Care Team Providers Care Chronometer Adjuster Name Role Phone Kerry Ascencio Primary Care Provider + Encounter Details Date Type Department Care Team (Late st Contact Info) Description 12/29/2021 External Results [place] [address] Provider, Scanning Social History Tobacco Use Types Packs/Day Years [...] PM EDT Office Visit Cardiology at [address] [address] Cody Martinez MD [facility] [place] [address] 05/27/2024 11:20 AM EDT Office Visit Dermatology at [facility] [address] [place] [address] 06/13/2024 9:00 AM EDT [place] [address] Kelly Miller APRN [facility] [place] [address] 06/13/2024 10:00 AM EDT Laboratory Appointment Lab [address] [place] [address] 06/13/2024 11:00 AM EDT Office [place] [address] Kelly Miller, APPLE PICKER [facility] [place] [address] 10/22/2024 10:30 AM EST Office Visit [place] [phone] Marialuisa Peres MD [facility] [place] [address] documented as of this encounter Procedures Procedure Name Priority Date/Time Associated Diagnosis Comments MAMMOGRAM SCAN Routine 09/28/2005 documented in this encounter Results * Scan Doc: Mammogram (09/28/2005) Anatomical Region Laterality Modality Other Scanning Provider MEDIA MGR SCAN EXT O RDR/RSLT documented in this encounter Visit Diagnoses Not on filedocumented in this encounter Care Teams Chronometer Adjuster Relationship Specialty Start Date End Date Kerry Ascencio PA [address] [place] [address] [place] [address] PCP - General Internal Medicine 01/29/21 documented as of this encounter
--- OUTSIDE RECORDS SUMMARY | 2024-04-10 13:41 | XMS_ITS | Encounter Summary ---
[place] [address] Care Team Providers Care Executive Vp Name Role Phone Kerry Ascencio Primary Care Provider + Encounter Details Date Type Department Care Team (Late st Contact Info) Description 12/29/2021 Telephone Hematology [place] [phone] Agatha Gaffney Social History Tobacco Use Types Packs/Day Years [...] encounter Miscellaneous Notes * Telephone Encounter - Agatha Gaffney - 12/29/2021 9:01 AM EDT Patient Name: Agatha Yi Patient : 1960 Attn: [facility] Image Library From: [facility] - [phone] Fed-Ex# [id number] - Please overnight [] Urgent [x] For Review [] Please Reply [] Please Recycle Pursuant to the Federal Mammography Quality Standards Act-Section 900.12(c), (4), (ii) Comments: Please send all Mammograms, Ultrasounds & Breast MRIs or any scan pertaining to breast cancer. (CD, Films, Electronic Transfer & Reports) to [facility], [place] [address] If Questions call [phone] Notice of Confidentiality: The documents accompanying this FAX transmission cover contain information from [facility] that is confidential and privileged. The information is intended for the use of the individual or entity named on this transmittal sheet. If you are not the intended recipient, be aware that any disclosure, copying, distribution or use of the contents is prohibited. If you have received the FAX in error, please notify us by telephone (collect) immediately to permit us to arrange for the retrieval of the documents at no cost to you. documented in this encounter Plan of Treatment Upcoming Encounters Date Type Department Care Team (Late st Contact Info) Description 04/28/2024 1:40 PM EDT Office Visit Cardiology at [address] [phone] Cody Martinez MD [facility] [address] 05/27/2024 11:20 AM EDT Office Visit Dermatology at [address] [phone] 06/13/2024 9:00 AM EDT Appointment [place] [phone] Kelly Miller APRN [facility] [place] [address] 06/13/2024 10:00 AM EDT Laboratory Appointment Lab [address] [place] [address] 06/13/2024 11:00 AM EDT Office Visit [place] [address] Kelly Miller APRN [facility] [place] [address] 10/22/2024 10:30 AM EST Office Visit Weight [place] [phone] Marialiusa Peres MD [facility] [place] [address] documented as of this encounter Visit Diagnoses Not on filedocumented in this encounter Care Teams Executive Vp Relationship Specialty Start Date End Date Kerry Ascencio PA [address] [place] [address] [place] [address] PCP - General Internal Medicine 01/29/21 documented as of this encounter
--- OUTSIDE RECORDS SUMMARY | 2024-04-10 13:41 | XMS_ITS | Encounter Summary ---
Author Organization [facility] Address [facility] [place] [address] Care Team Providers Care Dry Heat Cabinet Attendant Name Role Phone Kerry Ascencio Primary Care Provider + Encounter Details Date Type Department Care Team (Latest Contact Info) Description 12/21/2021 3:00 PM EDT Office Visit Cardiology at [address] [phone] Cody Martinez MD [facility] [place] [address] ASCVD (arteriosclerotic cardiovascular disease); SVT (supraventricular tachycardia) Social History Tobacco Use Types Packs/Day Years [...] Sign Reading Time Taken Comments Blood Pressure 118/59 12/21/2021 2:53 PM EDT Pulse 72 12/21/2021 2:53 PM EDT Temperature - - Respiratory Rate - - Oxygen Saturation 98% 12/21/2021 2:53 PM EDT Inhaled Oxygen Concentration - - Weight 81.6 kg (180 lb) 12/21/2021 2:53 PM EDT Height 154.9 cm (5' 1) 12/21/2021 2:53 PM EDT Body Mass Index 34.01 12/21/2021 2:53 PM EDT documented in this encounter Patient Instructions * Patient Instructions* Cody Martinez MD - 12/21/2021 3:20 PM EDT Discontinue lisinopril Start diltiazem 120 mg daily Cardiology f/u in 1-2 month documented in this encounter Progress Notes * Cody Martinez MD - 12/21/2021 3:00 PM EDT Images from the original note were not included. [facility] [place] [address] CARDIOLOGY OUTPATIENT FOLLOW-UP NOTE Agatha Yi [phone] PCP: GENE Crews 12/21/2021 PRIMARY CARE PROVIDER: GENE Crews PROBLEM LIST: [...] pain ?? Abnormal nuclear stress test at [facility] ?? Heart catheterization [facility] November 06, 2017 showing LVEDP of 20 mmHg; coronary angiography showing normal left main, mild diffuse disease in the LAD, normal circumflex, and mild diffuse disease in the RCA ?? Management with aspirin and atorvastatin ??? Benign paroxysmal positional vertigo ??? Seborrheic keratosis ??? Uterine leiomyoma MEDICATIONS: Current Outpatient Medications: ??? aspirin 81 mg Tablet, Chewable, Take 81 mg by mouth daily., Disp: , Rfl: ??? lisinopriL (Zestril) 5 mg Tablet, Take 5 mg by mouth daily., Disp: , Rfl: ??? levothyroxine (Synthroid) 100 [...] by mouth daily., Disp: , Rfl: ??? acyclovir (ZOVIRAX) [...] as needed., Disp: , Rfl: 0 ??? docusate sodium (COLACE) 250 mg capsule, Take by mouth., Disp: , Rfl: ??? citalopram (CELEXA) 20 mg tablet, , Disp: , Rfl: ??? Spiriva with HandiHaler 18 mcg Capsule, w/Inhalation Device, INHALE 1 DOSE IN THE MORNING AFTERBREO, Disp: , Rfl: ??? Anoro Ellipta 62.5-25 mcg/actuation Disk with Device, INHALE 1 PUFF BY MOUTH IN THE MORNING, Disp: , Rfl: ??? fluticasone-salmeterol (ADVAIR HFA) 115-21 mcg/actuation HFA Aerosol Inhaler, Inhale 2 puffs into the lungs 2 times daily., Disp: , Rfl: ??? EPIPEN 2-JAKE 0.3 mg/0.3 mL Auto-Injector, Inject 1 Device as directed as needed., Disp: , Rfl: 0 ??? albuterol (PROVENTIL HFA;VENTOLIN HFA;PROAIR) 90 mcg/actuation HFA Aerosol Inhaler, Inhale 2 puffs into the lungs every 4 hours as needed for Wheezing. Use with spacer, Disp: , Rfl: SUBJECTIVE: This 61-year-old woman comes for follow-up visit. She has had atypical chest pain and after an abnormal nuclear stress test that came to heart catheterization in October 2017 which showed some mild diffuse disease in her LAD and RCA but nothing obstructive. She was having atypical painwhen I saw her in December 2018 and at the time of her last visit with me which was a telephone visit on February 10, 2020 was also reporting ongoing atypical symptoms. Today she tells me that she is doing poorly. Last fall she had a Covid infection which she feels she has never fully recovered from. She is still largely absent the ability to smell or taste. She reports frequent brain fog, frequent headaches, and a frequent cough. She continues to have chest pain. She describes a sharp focal pain in her left chest above her leftbreast. She had a recent evaluation at [facility] for this pain and was ultimately evaluated with a treadmill stress test and later a nuclear stress test which were negative. Her symptoms were again thought to be noncardiac. She was seen in the emergency department at [facility] on December 15, 2021 when she presented with palpitations and a sensation of her heart flip flopping. She tried taking nitroglycerin for the symptoms and it did not help. In the emergency department her work-up was unremarkable. She was set up for a Zio patch which was limited to only 2-1/2 days of evaluation. She had no atrial fibrillation. She did have a few runs of SVT which were probably symptomatic. She continues to have intermittent chest pain. Yesterday she had sharp pain which extended into herleft arm and up into her left neck. These pains are occurring with no particular pattern and are not exertional. She describes frequent somewhat dry cough which was reminiscent of the cough she had when she first started lisinopril although it is not quite as dry. ROS: No flowsheet data found. OBJECTIVE: Vital Signs: BP 118/59 Pulse 72 Ht 154.9 cm (5' 1) Wt 81.6 kg (180 lb) SpO2 98% BMI 34.01 kg/m?? Physical Exam: On examination today she appeared in no acute distress. She was a mildly overweight middle-aged woman. Her vital signs are documented above. Jugular venous pressures did not appear elevated. Her carotids were palpable bilaterally and she had no carotid bruits. Her lungs were clear. Her heart exam revealed a regular rhythm without overt murmurs, rubs, or gallops. Her abdomen was soft and nontender. She had no peripheral edema. ASSESSMENT: 1. Chest pain: Her symptoms remain atypical. She is having pain in various locations and her symptoms remain atypical in the pattern of occurrence (mostly at rest and not exertional). As she had a recent nuclear stress test which did not show evidence of ischemia. All things considered, I continue to feel it unlikely that her symptoms are related to cardiac ischemia. We discussed this and I did my best to provide her with reassurance. 2. Palpitations: She was documented to have some SVT on her Zio patch. This might be helped with some diltiazem and I recommended that she start 120 mg daily. 3. Dry cough: I am suspicious that this may be related to her lisinopril. I recommended that she stop it and do not think her blood pressure be a problem since the pressure is good today and diltiazem is being added for her SVT. 4. 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 Discontinue lisinopril (dry cough) 2. Begin diltiazem 120 mg daily for SVT 3. Reasonable to proceed with a colonoscopy if clinically indicated and with very low risk of cardiac complications 4. Cardiology follow-up to reassess in 1 month documented in this encounter Plan of Treatment Upcoming Encounters Date Type Department Care Team (Late st Contact Info) Description 04/28/2024 1:40 PM EDT Office Visit Cardiology at [address] [phone] Cody Martinez MD [facility] [place] [address] 05/27/2024 11:20 AM EDT Office Visit Dermatology at [address] [address] 06/13/2024 9:00 AM EDT Appointment Ultrasound at [place] [phone] Kelly Miller APRN [facility] [place] [address] 06/13/2024 10:00 AM EDT Laboratory Appointment Lab [address] [phone] 06/13/2024 11:00 AM EDT Office Visit [place] [phone] Kelly Miller APRN [facility] [place] [address] 10/22/2024 10:30 AM EST Office Visit Weight [place] [address] Marialuisa Peres MD [facility] [place] [address] documented as of this encounter Visit Diagnoses Diagnosis ASCVD (arteriosclerotic cardiovascular disease) Unspecified cardiovascular disease SVT (supraventricular tachycardia) Other specified cardiac dysrhythmias documented in this encounter Care Teams Dry Heat Cabinet Attendant Relationship Specialty Start Date End Date Kerry Ascencio PA [address] [place] [address] [place] [address] PCP - General Internal Medicine 01/29/21 documented as of this encounter
--- OUTSIDE RECORDS SUMMARY | 2024-04-10 13:41 | XMS_ITS | Encounter Summary ---
[place] [address] Care Team Providers Care Bookbinder Chief Name Role Phone Kerry Ascencio Primary Care Provider + Reason for Referral * Diagnostic Test (Routine) - Closed Specialty Diagnoses / Procedures Referred By Clari dickey Referred To Contact Radiology Diagnoses Solitary pulmonary nodule present on computed tomography of lung Procedures NM PET CT Skull Base to Mid-thigh Kerry Ascencio PA [address] [place] [address] [place] [address] [place] [address] Referral ID Status Reason Start Date Expiration Date V isits Requested Visits Authorized [id number] Closed Specialty Service Requested 09/15/2021 03/16/2023 1 1 Reason for Visit * Diagnostic Test (Routine) - Closed Specialty Diagnoses / Procedures Referred By [facility] Referred To Contact Radiology Diagnoses Solitary pulmonary nodule present on computed tomography of lung Procedures NM PET CT Skull Base to Mid-thigh Kerry Ascencio PA [address] [place] [address] [place] [address] [place] [address] Referral ID Status Reason Start Date Expiration Date V isits Requested Visits Authorized [id number] Closed Specialty Service Requested 09/15/2021 03/16/2023 1 1 Encounter Details Date Type Department Care Team (Late st Contact Info) Description 10/19/2021 11:43 AM EST - 10/19/2021 11:59 PM [facility] Hospital Encounter [place] [address] Kerry Ascencio PA [facility] MEDICAL [facility] [place] [address] Solitary pulmonary nodule present on computed tomography of lung Discharge Disposition: Home Social History Tobacco Use [...] PM EDT Office Visit Cardiology at [address] [phone] Cody Martinez MD [facility] [place] [address] 05/27/2024 11:20 AM EDT Office Visit Dermatology at [facility] [address] [place] [address] 06/13/2024 9:00 AM EDT Appointment Ultrasound at [place] [phone] Kelly Miller APRN [facility] [place] [address] 06/13/2024 10:00 AM EDT Laboratory Appointment Lab [address] [place] [phone] 06/13/2024 11:00 AM EDT Office [place] [phone] Kelly Miller CAMOUFLAGE ASSEMBLER [facility] [place] [address] 10/22/2024 10:30 AM EST Office Visit [place] [phone] Marialuisa Peres MD [facility] [place] [address] documented as of this encounter Procedures Procedure Name Priority Date/Time Associated Diagnosis Comments NM PET CT SKULL BASE TO MID-THIGH (LCSR) Routine 10/19/2021 1:33 PM EST Solitary pulmonary nodule present on computed tomography of lung POCT GLUCOSE Routine 10/19/2021 12:12 PM EST documented in this encounter Results * NM [...] who have questions please contact the health college and career counselor that requested your imaging first. ? Electronically signed by: Frederic Sales MD, [facility] ([phone]), at 10/20/2021 1:55 PM Narrative 10/20/2021 1:55 PM EST EXAMINATION: NM PET CT STANDARD SKULL BASE TO MID-THIGH CLINICAL HISTORY: Incidental 11X12 mm RLL nodule on CTA for PE at [facility] on 08/30/21 TECHNIQUE: Following IV injection of 94-rsbsju-0-deoxyglucose (FDG) a standard uptake of approximately 60 [...] RLL nodule on CTA for PE at [facility] on 08/30/21 TECHNIQUE: Following IV injection of 94-gmbiny-8-deoxyglucose (FDG) astandard uptake of approximately 60 minutes, [...] patients who have questions please contactthe health college and career counselor that requested your imaging first. Electronically signed by: Frederic Sales MD, [facility]([phone]), at 10/20/2021 1:55 PM Kerry MILLS IMG PET ORDERABL ES * POCT Glucose (10/19/2021 12:12 PM EST) POC Glucose 81 65 - 199 mg/dL [facility] Comment: Supplemental ranges: <140 mg/dL before meals <180 mg/dL all other times of the day Blood 10/19/2021 12:1 2 PM EST 10/19/2021 12:12 PM EST Kerry MILLS POINT OF CARE TE ST ORDERABLES [facility] [place] [address] documented in this encounter Visit Diagnoses Diagnosis Solitary pulmonary nodule present on computed tomography of lung documented in this encounter Administered Medications Inactive Administered Medications - up to 3 most recent administrations Medication Order MAR Action Action Date Dose Rate Site fludeoxyglucose (F-18) FDG injection 0-20 mCi 0-20 mCi, Intravenous, ONCE PRN, 1 dose, Starting on Sun10/19/21 at 1222, Until Sun10/19/21 at 1218, Per Protocol, Radiology Contrast, Routine Given 10/19/2021 12:18 PM EST 12.3 mCi Right Arm documented in this encounter Care Teams Bookbinder Chief Relationship Specialty Start Date End Date Kerry Ascencio PA [address] [place] [address] [place] [address] PCP - General Internal Medicine 01/29/21 documented as of this encounter
--- OUTSIDE RECORDS SUMMARY | 2024-04-10 13:41 | XMS_ITS | Encounter Summary ---
[place] [address] Care Team Providers Care Granite Polisher Apprentice Name Role Phone Kerry Ascencio Primary Care Provider + Encounter Details Date Type Department Care Team (Late st Contact Info) Description 09/01/2021 Telephone Cardiology at [address] [phone] Ally Meza, RN Social History Tobacco Use [...] Telephone Encounter - Ally Meza, RN - 09/01/2021 1:42 PM EST Voice message from Agatha,states she was recently seen in [facility] ED for chestpain,states upon discharge she was asked to contact this office to order and schedule a Nuc Med stress test. Call placed to [facility] spoke with RN in ED as well as Dr Fragoso-order had been generatedby [place] provider for the Nuc Med Stress to be completed in [place] not [facility]. Return call to Agatha,explained above,she voices good understanding and is agreeable with this plan,no further questions voiced. documented in this encounter Plan of Treatment Upcoming Encounters Date Type Department Care Team (Late st Contact Info) Description 04/28/2024 1:40 PM EDT Office Visit Cardiology at [address] [phone] Cody Martinez MD [facility] [place] [address] 05/27/2024 11:20 AM EDT Office Visit Dermatology at [address] [phone] 06/13/2024 9:00 AM EDT Appointment [place] [phone] Kelly Miller APRN [facility] [place] [address] 06/13/2024 10:00 AM EDT Laboratory Appointment Lab [address] [address] 06/13/2024 11:00 AM EDT Office [place] [phone] Kelly Miller APRN [facility] [place] [address] 10/22/2024 10:30 AM EST Office Visit Weight [place] [phone] Marialuisa Peres MD [facility] [place] [place] [address] documented as of this encounter Visit Diagnoses Not on filedocumented in this encounter Care Teams Granite Polisher Apprentice Relationship Specialty Start Date End Date Kerry Ascencio PA [address] [place] [address] [place] [address] PCP - General Internal Medicine 01/29/21 documented as of this encounter
--- OUTSIDE RECORDS SUMMARY | 2024-04-10 13:41 | XMS_ITS | Encounter Summary ---
Author Organization [facility] [place] [address] Care Team Providers Care Ratchet Setter Name Role Phone Kerry Ascencio Primary Care Provider + Encounter Details Date Type Department Care Team (Late st Contact Info) Description 08/30/2021 Ancillary Procedure [place] [address] Kerry Ascencio PA [address] [place] [address] [place], [place] [phone] Social History Tobacco Use Types Packs/Day Years [...] PM EDT Office Visit Cardiology at [address] [phone] Cody Martinez MD [facility] [place] [address] 05/27/2024 11:20 AM EDT Office Visit Dermatology at [facility] [address] [place] [address] 06/13/2024 9:00 AM EDT Appointment [place] [phone] Kelly Miller APRN [facility] [place] [address] 06/13/2024 10:00 AM EDT Laboratory Appointment Lab [address] [place] [phone] 06/13/2024 11:00 AM EDT Office Visit [place] [phone] Kelly Miller APRN [facility] [place] [address] 10/22/2024 10:30 AM EST Office Visit Weight [place] [phone] Marialuisa Peres MD [facility] [place] [address] documented as of this encounter Procedures Procedure Name Priority Date/Time Associated Diagnosis Comments FILM LIBRARY STORAGE ONLY CT CHEST Routine 08/30/2021 12:00 AM EST documented in this encounter Results * Film Library- Storage Only CT Chest (08/30/2021 12:00 AM EST) Narrative [facility] - 10/20/2021 11:33 AM EST This exam is auto-finalizing. It's purpose is for storage only. Kerry MILLS IMFidelina FILM LIBRARY ORDERABLES [place], [place] documented in this encounter Visit Diagnoses Not on filedocumented in this encounter Care Teams Ratchet Setter Relationship Specialty Start Date End Date Kerry Ascencio PA [address] [place] [address] [place] [address] PCP - General Internal Medicine 01/29/21 documented as of this encounter
--- OUTSIDE RECORDS SUMMARY | 2024-04-10 13:41 | XMS_ITS | Encounter Summary ---
Author Organization [facility] Address [facility] [place] [address] Care Team Providers Care Neuroscience Director Na Name Role Phone Kerry Ascencio Primary Care Provider + Encounter Details Date Type Department Care Team (Latest Contact Info) Description 10/26/2021 Travel Social History Tobacco Use Types Packs/Day [...] PM EDT Office Visit Cardiology at [address] [phone] Cody Martinez MD [facility] [place] [address] 05/27/2024 11:20 AM EDT Office Visit Dermatology at [facility] [address] [place] [address] 06/13/2024 9:00 AM EDT Appointment [place] [phone] Kelly Miller, RESIDENT BUYER [facility] [place] [address] 06/13/2024 10:00 AM EDT Laboratory Appointment Lab [address] [place] [phone] 06/13/2024 11:00 AM EDT Office Visit Gastroenterology at [place] [phone] Kelly Miller RESIDENT BUYER [facility] [place] [address] 10/22/2024 10:30 AM EST Office Visit Weight [place] [phone] Marialuisa Peres MD [facility] [place] [address] documented as of this encounter Visit Diagnoses Not on filedocumented in this encounter Care Teams Neuroscience Director Na Relationship Specialty Start Date End Date Kerry Ascencio PA [address] [place] [address] [place] [address] PCP - General Internal Medicine 01/29/21 documented as of this encounter
--- OUTSIDE RECORDS SUMMARY | 2024-04-10 13:41 | XMS_ITS | Encounter Summary ---
Author Organization [facility] Address [facility] [place] [address] Care Team Providers Care Counter Sales Representative Name Role Phone Kerry Ascencio Primary Care Provider + Encounter Details Date Type Department Care Team (Late st Contact Info) Description 12/22/2021 Transcribe Orders eDH Incoming Referrals [phone] Kerry Ascencio PA [address] [place] [phone] Social History Tobacco Use Types Packs/Day Years [...] 1:40 PM EDT Office Visit Cardiology at [address] [phone] Cody Martinez MD [facility] [place] [address] 05/27/2024 11:20 AM EDT Office Visit Dermatology at [facility] [address] [place] [address] 06/13/2024 9:00 AM EDT Appointment Ultrasound at [place] [phone] Kelly Miller, JU [facility] [place] [address] 06/13/2024 10:00 AM EDT Laboratory Appointment Lab [address] [place] [phone] 06/13/2024 11:00 AM EDT Office [place] [phone] Kelly Miller, HUNTER SKIN DIVER [facility] [place] [address] 10/22/2024 10:30 AM EST Office Visit [place] [phone] Marialuisa Peres MD [facility] [place] [address] documented as of this encounter Visit Diagnoses Not on filedocumented in this encounter Care Teams Counter Sales Representative Relationship Specialty Start Date End Date Kerry Ascencio PA [address] [place] [address] [place] [address] PCP - General Internal Medicine 01/29/21 documented as of this encounter
--- OUTSIDE RECORDS SUMMARY | 2024-04-10 13:41 | XMS_ITS | Encounter Summary ---
Author Organization [facility] [place] [address] Care Team Providers Care Cant Gang Sawyer Name Role Phone Kerry Ascencio Primary Care Provider + Encounter Details Date Type Department Care Team (Late st Contact Info) Description 09/05/2021 Ancillary Procedure [place] [address] Kerry Ascencio PA [address] [place] [address] [place], [place] [address] Social History Tobacco Use Types Packs/Day Years [...] PM EDT Office Visit Cardiology at [address] [phone] Cody Martinez MD [facility] [place] [address] 05/27/2024 11:20 AM EDT Office Visit Dermatology at [facility] [address] [place] [address] 06/13/2024 9:00 AM EDT Appointment [place] [phone] Kelly Miller APRN [facility] [place] [address] 06/13/2024 10:00 AM EDT Laboratory Appointment Lab [address] [place] [phone] 06/13/2024 11:00 AM EDT Office Visit [place] [phone] Kelly Miller APRN [facility] [place] [address] 10/22/2024 10:30 AM EST Office Visit Weight [place] [phone] Marialuisa Peres MD [facility] [place] [address] documented as of this encounter Procedures Procedure Name Priority Date/Time Associated Diagnosis Comments FILM LIBRARY STORAGE ONLY NUCLEAR MEDICINE Routine 09/05/2021 12:00 AM EST documented in this encounter Results * Film Library- Storage Only nuclear medicine (09/05/2021 12:00 AM EST) Narrative [facility] - 10/20/2021 11:33 AM EST This exam is auto-finalizing. It's purpose is for storage only. Kerry MILLS IMFidelina FILM LIBRARY ORDERABLES [place], [place] documented in this encounter Visit Diagnoses Not on filedocumented in this encounter Care Teams Cant Gang Sawyer Relationship Specialty Start Date End Date Kerry Ascencio PA [address] [place] [address] [place] [address] PCP - General Internal Medicine 01/29/21 documented as of this encounter
--- OUTSIDE RECORDS SUMMARY | 2024-04-10 13:42 | XMS_ITS | Encounter Summary ---
Author Organization [facility] Address [facility] [place] [address] Care Team Providers Care Mussel Farmer Name Role Phone Kerry Villalobos JU Primary Care Provider [phone] [phone] Encounter Details Date Type Department Care Team (Late st Contact Info) Description 09/08/2016 [place] [phone] Ofelia Kim, ACTIVITY THERAPY SPECIALIST Social History Tobacco Use Types Packs/Day Years Used Date Smoking Tobacco: Former Sex and Gender Information Value Date Recorded Sex Assigned at Not on file Gender Identity Not on file Sexual Orientation Not on file documented as of this encounter Plan of Treatment Upcoming Encounters Date Type Department Care Team (Late st Contact Info) Description 04/28/2024 1:40 PM EDT Office Visit Cardiology at [address] [address] Cody Martinez MD [facility] [place] [address] 05/27/2024 11:20 AM EDT Office Visit Dermatology at [place] [address] [place] [address] 06/13/2024 9:00 AM EDT [place] [address] KingKelly buchanan APRN [facility] [place] [address] 06/13/2024 10:00 AM EDT Laboratory Appointment Lab 3L [place] [phone] 06/13/2024 11:00 AM EDT Office Visit Gastroenterology at [place] [phone] Kelly Miller APRN [facility] [place] [address] 10/22/2024 10:30 AM EST Office Visit [place] [address] Marialuisa Peres MD [facility] [place] [address] documented as of this encounter Visit Diagnoses Not on filedocumented in this encounter Care Teams Mussel Farmer Relationship Specialty Start Date End Date Kerry Villalobos APRN [address] [place] [address] [place] [address] PCP - General 03/08/12 10/29/17 documented as of this encounter
--- OUTSIDE RECORDS SUMMARY | 2024-04-10 13:42 | XMS_ITS | Encounter Summary ---
Author Organization [facility] [place] [address] Care Team Providers Care Aad[employer] Plans Staff Officer Name Role Phone Kerry Villalobos APRN Primary Care Provider +1 [phone] Encounter Details Date Type Department Care Team (Late st Contact Info) Description 10/01/2013 Ancillary Procedure [place] [address] Kerry Ascencio PA [address] [place] [address] Social History Tobacco Use Types Packs/Day Years [...] PM EDT Office Visit Cardiology at [address] [address] Cody Martinez MD [facility] [place] [address] 05/27/2024 11:20 AM EDT Office Visit Dermatology at [facility] [address] [place] [address] 06/13/2024 9:00 AM EDT [place] [address] Kelly Miller APRN [facility] [place] [address] 06/13/2024 10:00 AM EDT Laboratory Appointment Lab [address] [phone] 06/13/2024 11:00 AM EDT Office [place] [phone] Kelly Miller CHIEF WHEELAGE CLERK [facility] [place] [address] 10/22/2024 10:30 AM EST Office Visit [place] [phone] Marialuisa Peres MD [facility] [place] [address] documented as of this encounter Procedures Procedure Name Priority Date/Time Associated Diagnosis Comments FILM LIBRARY STORAGE ONLY MAMMO Routine 10/01/2013 12:00 AM EST documented in this encounter Results * Film Library- Storage Only Mammo (10/01/2013 12:00 AM EST) Narrative [facility] - 12/29/2021 9:53 AM EDT This exam is auto-finalizing. It's purpose is for storage only. Kerry MILLS IMFidelina FILM LIBRARY ORDERABLES [place], [place] documented in this encounter Visit Diagnoses Not on filedocumented in this encounter Care Teams Aadc Plans Staff Officer Relationship Specialty Start Date End Date Kerry Villalobos APRN [address] [place] [address] [place] [address] PCP - General 03/08/12 10/29/17 documented as of this encounter
--- OUTSIDE RECORDS SUMMARY | 2024-04-10 13:42 | XMS_ITS | Encounter Summary ---
Author Organization [facility] [place] [address] Care Team Providers Care Ornamental Painter Name Role Phone Jennifer Gallagher MULTIMEDIA INSTRUCTIONAL DESIGNER Primary Care Provider + Encounter Details Date Type Department Care Team (Late st Contact Info) Description 08/04/2019 Ancillary Procedure [place] [address] Kerry Ascencio PA [address] [place] [address] [place], [place] [address] Social History Tobacco Use Types Packs/Day Years [...] PM EDT Office Visit Cardiology at [address] [address] Cody Martinez MD [facility] [place] [address] 05/27/2024 11:20 AM EDT Office Visit Dermatology at [facility] [address] [place] [address] 06/13/2024 9:00 AM EDT [place] [address] Kelly Miller APRN [facility] [place] [address] 06/13/2024 10:00 AM EDT Laboratory Appointment Lab [address] [place] [phone] 06/13/2024 11:00 AM EDT Office [place] [phone] Kelly Miller MULTIMEDIA INSTRUCTIONAL DESIGNER [facility] [place] [address] 10/22/2024 10:30 AM EST Office Visit [place] [phone] Marialuisa Peres MD [facility] [place] [address] documented as of this encounter Procedures Procedure Name Priority Date/Time Associated Diagnosis Comments FILM LIBRARY STORAGE ONLY DX SHOULDER Routine 08/04/2019 12:00 AM EST documented in this encounter Results * Film Library- Storage Only DX Shoulder (08/04/2019 12:00 AM EST) Narrative [facility] - 08/23/2023 4:22 PM EST This exam is auto-finalizing. It's purpose is for storage only. Kerry MILLS IMFidelina FILM LIBRARY ORDERABLES [place], [place] documented in this encounter Visit Diagnoses Not on filedocumented in this encounter Care Teams Ornamental Painter Relationship Specialty Start Date End Date Jennifer Gallagher APRN [address] [place] [address] , [address] [place] [address] PCP - General Family Medicine 10/30/17 01/28/21 documented as of this encounter
--- OUTSIDE RECORDS SUMMARY | 2024-04-10 13:42 | XMS_ITS | Encounter Summary ---
[place] [address] Care Team Providers Care Seater Assembler Name Role Phone Jennifer Gallagher JU Primary Care Provider + Reason for Visit * Reason Onset Date Comments Medication Reaction 10/29/2017 Encounter Details Date Type Department Care Team (Late st Contact Info) Description 10/29/2017 Telephone Cardiology at [address] [address] Negrita Amaro, last code striper Reaction Social History Tobacco Use Types Packs/Day Years Used Date Smoking Tobacco: Former Smokeless Tobacco: Never Sex and Gender Information Value Date Recorded Sex Assigned at Not on file Gender Identity Not on file Sexual Orientation Not on file documented as of this encounter Miscellaneous Notes * Telephone Encounter - Negrita Amaro RN - 10/29/2017 11:57 AM EST Pt called to update about medication problem/adverse side effect. She stated she was recently put on isosorbide mononitrate 30 mg at her most recent visit on 10/25/17.She states that she has been taking the medication since this visit however, she has recently developed severe headaches and stated that for the past 2 days she has not been taking it and does not wish to take it any longer. She was calling us to make us aware that she has stopped this medication. She has an upcoming cardiac cath appt on 11/06 @ [address] Kirkpatrick per Dr. Naranjo's note from clinic visit 10/25/17 Informed pt that I would notify of her issues with the Imdur and that if she should have any new or worsening symptoms that she should call our office our present to the nearest ED. Pt agreeable to POC and verbalized understanding. documented in this encounter Plan of Treatment Upcoming Encounters Date Type Department Care Team (Late st Contact Info) Description 04/28/2024 1:40 PM EDT Office Visit Cardiology at [address] [phone] Cody Martinez MD [facility] [address] 05/27/2024 11:20 AM EDT Office Visit Dermatology at [address] [phone] 06/13/2024 9:00 AM EDT [place]oint[place] [address] Kelly Miller APRN [facility] [place] [address] 06/13/2024 10:00 AM EDT Laboratory Appointment Lab [address] [place] [address] 06/13/2024 11:00 AM EDT Office [place] [address] Kelly Miller APRN [facility] [place] [address] 10/22/2024 10:30 AM EST Office Visit [place] [address] Marialuisa Peres MD [facility] [place] [address] documented as of this encounter Visit Diagnoses Not on filedocumented in this encounter Care Teams Seater Assembler Relationship Specialty Start Date End Date Jennifer Gallagher APRN [address] [place] [address] [address] [place] [address] PCP - General Family Medicine 10/30/17 01/28/21 documented as of this encounter
--- OUTSIDE RECORDS SUMMARY | 2024-04-10 13:42 | XMS_ITS | Encounter Summary ---
Author Organization [facility] Address [facility] [place] [address] Care Team Providers Care Customer Engagement Specialist Name Role Phone Unavailable Primary Care Provider Unavailabl e Encounter Details Date Type Department Care Team (Late st Contact Info) Description 10/14/2009 Ancillary Procedure [place] [address] Kerry Ascencio PA [address] [place] [address] [place] [address] Social History Tobacco Use Types Packs/Day Years [...] PM EDT Office Visit Cardiology at [address] [address] Cody Martinez MD [facility] [place] [address] 05/27/2024 11:20 AM EDT Office Visit Dermatology at [place] [address] [place] [address] 06/13/2024 9:00 AM EDT Appointment [place] [address] Kelly Miller APRN [facility] [place] [address] 06/13/2024 10:00 AM EDT Laboratory Appointment Lab [address] [place] [address] 06/13/2024 11:00 AM EDT Office Visit [place] [address] Kelly Miller APRN [facility] [place] [address] 10/22/2024 10:30 AM EST Office Visit Weight [place] [address] Marialuisa Peres MD [facility] [place] [address] documented as of this encounter Procedures Procedure Name Priority Date/Time Associated Diagnosis Comments FILM LIBRARY STORAGE ONLY MAMMO Routine 10/14/2009 12:00 AM EST documented in this encounter Results * Film Library- Storage Only Mammo (10/14/2009 12:00 AM EST) Narrative [facility] [place] - 12/29/2021 9:55 AM EDT This exam is auto-finalizing. It's purpose is for storage only. Kerry MILLS IMFidelina FILM LIBRARY ORDERABLES [place], [place] documented in this encounter Visit Diagnoses Not on filedocumented in this encounter
--- OUTSIDE RECORDS SUMMARY | 2024-04-10 13:42 | XMS_ITS | Encounter Summary ---
Author Organization [facility] Address [facility] [place] [address] Care Team Providers Care Director Mortgage Name Role Phone Kerry Villalobos APRN Primary Care Provider [phone] [phone] Reason for Visit * Reason Onset Date Comments Medication Refill 09/08/2016 Encounter Details Date Type Department Care Team (Late st Contact Info) Description 09/08/2016 [place] [address] Kitty Cervantes MD [facility] [place] [address] Chronic allergic rhinitis Social History Tobacco Use Types Packs/Day Years Used Date Smoking Tobacco: Former Sex and Gender Information Value Date Recorded Sex Assigned at Not on file Gender Identity Not on file Sexual Orientation Not on file documented as of this encounter Miscellaneous Notes * Telephone Encounter - Ofelia Kim LPN - 09/08/2016 11:00 AM EST Called patient to let her know that Nadeen 180mg is being switched to levocetrizine 5mg. Pt reports that she is still taking the generic zyrtec 10mg. Will call her back to let her know to stop taking the zyrtec 10mg if the levocetrizine 5mg is approved. documented in this encounter Plan of Treatment Upcoming Encounters Date Type Department Care Team (Late st Contact Info) Description 04/28/2024 1:40 PM EDT Office Visit Cardiology at [place] [phone] Cody Martinez MD [facility] CARDIOLOGY DEPT. [place] [address] 05/27/2024 11:20 AM EDT Office Visit Dermatology at [address] [address] 06/13/2024 9:00 AM EDT Appointment Ultrasound at [place] [phone] Kelly Miller KENO WRITER / RUNNER [facility] [place] [address] 06/13/2024 10:00 AM EDT Laboratory Appointment Lab [address] [address] 06/13/2024 11:00 AM EDT Office Visit Gastroenterology at [place] [phone] Kelly Miller KENO WRITER / RUNNER [facility] [place] [address] 10/22/2024 10:30 AM EST Office Visit [place] [address] Marialuisa Peres MD [facility] FAMILY MEDICINE [place], [place] [phone] documented as of this encounter Visit Diagnoses Diagnosis Chronic allergic rhinitis Allergic rhinitis, cause unspecified documented in this encounter Care Teams Director Mortgage Relationship Specialty Start Date End Date Kerry Villalobos APRN [address] [place] [address] [place] [address] PCP - General 03/08/12 10/29/17 documented as of this encounter
--- OUTSIDE RECORDS SUMMARY | 2024-04-10 13:42 | XMS_ITS | Encounter Summary ---
Author Organization [facility] [place] [address] Care Team Providers Care Cardiovascular Operating Room Nurse Name Role Phone Kerry Villalobos APRN Primary Care Provider [phone] [phone] Encounter Details Date Type Department Care Team (Late st Contact Info) Description 04/03/2013 Ancillary Procedure [place] [address] Kerry Ascencio PA [address] [place] [address] Social History Tobacco Use Types Packs/Day Years [...] PM EDT Office Visit Cardiology at [address] [address] Cody Martinez MD [facility] [place] [address] 05/27/2024 11:20 AM EDT Office Visit Dermatology at [facility] [address] [place] [phone] 06/13/2024 9:00 AM EDT [place] [address] Kelly Miller APRN [facility] [place] [address] 06/13/2024 10:00 AM EDT Laboratory Appointment Lab [address] [address] 06/13/2024 11:00 AM EDT Office [place] [address] Kelly Miller TELEVISION ENGINEER [facility] [place] [address] 10/22/2024 10:30 AM EST Office Visit [place] [address] Marialuisa Peres MD [facility] [place] [address] documented as of this encounter Procedures Procedure Name Priority Date/Time Associated Diagnosis Comments FILM LIBRARY STORAGE ONLY MAMMO Routine 04/03/2013 12:00 AM EDT documented in this encounter Results * Film Library- Storage Only Mammo (04/03/2013 12:00 AM EDT) Narrative [facility] - 12/29/2021 9:53 AM EDT This exam is auto-finalizing. It's purpose is for storage only. Kerry LOWE FILM LIBRARY ORDERABLES [place], [place] documented in this encounter Visit Diagnoses Not on filedocumented in this encounter Care Teams Cardiovascular Operating Room Nurse Relationship Specialty Start Date End Date Kerry Villalobos APRN [address] [place] [address] [place] [address] PCP - General 03/08/12 10/29/17 documented as of this encounter
--- OUTSIDE RECORDS SUMMARY | 2024-04-10 13:42 | XMS_ITS | Encounter Summary ---
Author Organization Formerly [facility] [place] [address] Care Team Providers Care Educational Adviser Name Role Phone Kerry Villalobos APRN Primary Care Provider [phone] Reason for Visit * Reason Comments Allergies * Consultation (Routine) - Closed Specialty Diagnoses / Procedures Referred By Clari dickey Referred To Contact Allergy Diagnoses chronic allergic rhinitis Jennifer Gallagher APRN [address] [place] [address] [address] [place] [address] [facility] [address] [place] [id number] Referral ID Status Reason Start Date Expiration Date V isits Requested Visits Authorized [id number] Closed Consult, Test & Treat Connection [facility] 07/06/2016 07/06/2017 1 1 Encounter Details Date Type Department Care Team (Late st Contact Info) Description 08/18/2016 2:00 PM EST [place] [address] Kitty Cervantes MD [facility] [place] [address] Food intolerance; Allergic rhinitis, unspecified allergic rhinitis trigger, unspecified rhinitis seasonality; Wheezing; Food allergy Social History Tobacco Use Types Packs/Day Years Used Date Smoking Tobacco: Former Sex and Gender Information Value Date Recorded Sex Assigned at Not on file Gender Identity Not on file Sexual Orientation Not on file documented as of this encounter Last Filed Vital Signs Vital Sign Reading Time Taken Comments Blood Pressure 136/72 08/18/2016 1:49 PM EST Pulse 83 08/18/2016 1:49 PM EST Temperature 36.5 ??C (97.7 ??F) 08/18/2016 1:49 PM ES T Respiratory Rate - - Oxygen Saturation 95% 08/18/2016 1:49 PM EST Inhaled Oxygen Concentration - - Weight 85 kg (187 lb 6.4 oz) 08/18/2016 1:49 PM EST Height 154.9 cm (5' 1) 08/18/2016 1:49 PM EST Body Mass Index 35.41 08/18/2016 1:49 PM EST documented in this encounter Patient Instructions * Patient Instructions* Kitty Cervantes MD - 08/18/2016 2:00 PM EST Your skin tests were positive to grasses and trees. Allergies: - continue zyrtec 10mg daily Asthma: You should take Advair 115/21 2 puffs twice a day every day. Try pairing it with an activity you are less likely to forget, like brushing your teeth. Your skin tests to foods were negative. Get blood tests to confirm negative results. Isolated abdominal pain is not usually due to a food allergy, which means it is unlikely to cause a life-threatening anaphylactic reaction. You should avoid these foods going forward because they cause you discomfort. You should carry an epipen because of your tree nut allergy and continue to avoid other foods you are allergic to. documented in this encounter Progress Notes * Kitty Cervantes MD - 08/18/2016 2:00 PM EST CC: food allergy HPI: Agatha Yi is a 56 y.o. female with a PMH of HTN, HLD, hypothyroidism presenting for evaluation of food allergy at the request of Jennifer Gallagher. Patient reports that July 21 she had peanut butter on toast and her stomach hurt badly. She feltcold and experienced dry heaves. The symptoms occurred immediately after eating the peanut butter. She did not have any diarrhea. She did not have any rash or itching and did not feel that her throat was closing. She is not sure if she felt lightheaded or dizzy; primarily just had GI symptoms. She went to the Emergency Room, where she was given IV medications including Benadryl, oral prednisone to take on discharge and had a CT scan of her abdomen. She started avoiding peanuts after that and then two weeks ago, she had cookies that she did not realize had peanut butter in them and they also gave her abdominal pain immediately. She took Benadryl, which helped. She states that last Sunday she also had symptoms after eating a grape, which caused her to feel an abnormal sensation on her tongue, lips, roof of the mouth. She did not have any other symptoms with it. She also states that toast sometimes hurts her abdomen, but has no problems with pasta. She has not had any hives or swelling with any of these foods. She reports a history of tree nut allergy and states it caused her throat to close, which she has known about for a long time. She saw [facility] in the past and was positive on skin testing to tree nuts (and amoxicillin) and has avoided those since. She also gets burning in her mouth with apples, melons, cherries, and plums and pineapples cause lip swelling. She can eat cooked apple without problems. She avoids dairy. She admits to a history of year round allergies and takes Zyrtec for this. Triggers include pollen, which causes sneezing, itchy nose, stuffy nose, and runny nose. She has a history of eczema and takes no medications for it because it is mild. She has a history of asthma and is prescribed Advair 115/21 plus albuterol as needed. However, she states that she never really takes the Advair - once every few months. She admits to cough every night and worsening of her asthma when she is sick. She says she uses her rescue inhaler about once a month, but could use it more often; she just does not like to use meds. She has had prednisone once in the past few months for her asthma. She has not had any Emergency Room visits specifically for asthma. ACT 20 ROS per HPI plus admits to a 10-pound weight gain, fatigue, itchy dry eyes and discharge, ear pressure, nasal congestion, facial pain, abdominal pain, constipation, cough, wheeze, snoring, depression, thyroid Problems. Review of systems is otherwise negative. Patient Active Problem List Diagnosis Code ??? CIS - Arthritis ??? CIS - Asthma ??? CIS - Ectopic ??? CIS - Multiparous ??? CIS - Uterine leiomyoma Past Medical History Diagnosis Date ??? Depression ??? HLD (hyperlipidemia) ??? HTN (hypertension) ??? Hypothyroid ??? Migraine Past Surgical History Procedure Laterality Date ??? Created by interface Knee surgery 1989 Procedure Date: 12/16/2008 ??? Created by interface Tubal ligation 1974 Procedure Date: 12/16/2008 ??? Hysterectomy ??? Gallbladder surgery Outpatient Prescriptions Marked as Taking for the 08/18/16 encounter (Office Visit) with Zee Cervantes MD Medication Sig Dispense Refill ??? cetirizine (ZYRTEC) 10 mg Tablet Take 10 mg by mouth daily. ??? rosuvastatin (CRESTOR) 40 mg Tablet Take 40 mg by mouth daily. ??? fluticasone-salmeterol (ADVAIR HFA) 115-21 mcg/actuation HFA Aerosol Inhaler Inhale 2 puffs into the lungs 2 times daily. ??? acyclovir (ZOVIRAX) 200 mg Capsule Take 200 mg by mouth as needed. 0 ??? citalopram (CELEXA) 10 mg Tablet Take 10 mg by mouth daily. 0 ??? clindamycin (CLEOCIN) 150 mg Capsule Take 150 mg by mouth as needed. 0 ??? EPIPEN 2-JAKE 0.3 mg/0.3 mL Auto-Injector Inject 1 Device as directed as needed. 0 ??? ibuprofen (ADVIL;MOTRIN) 800 mg Tablet Take 800 mg by mouth 3 times daily as needed. 0 ??? levothyroxine (SYNTHROID) 50 mcg Tablet Take 50 mcg by mouth daily. 0 ??? lisinopril (PRINIVIL;ZESTRIL) 2.5 mg Tablet Take 2.5 mg by mouth daily. 0 ??? topiramate (TOPAMAX) 50 mg Tablet [...] MG = 1 Capsule(s) PO Once daily ??? triamcinolone (NASACORT AQ) 55 mcg nasal inhaler ??? acetaminophen (TYLENOL EXTRA STRENGTH) 500 mg tablet ??? lisinopril-hydrochlorothiazide (PRINZIDE;ZESTORETIC) 10-12.5 mg per tablet ??? citalopram (CELEXA) 20 mg tablet ??? penciclovir (DENAVIR) 1 % cream ??? [DISCONTINUED] cetirizine (ZYRTEC) 10 mg tablet ??? [DISCONTINUED] Levalbuterol Tartrate (XOPENEX HFA) 45 mcg/Actuation inhaler Allergies Allergen Reactions ??? Amoxicillin ??? Morphine Sulfate CIS - Nausea/Vomiting ??? Oxycodone-Acetaminophen CIS - Nausea/Vomiting ??? Tetanus And Diphtheria Toxoids, Adsorbed, Adult CIS - swelling Family History Problem Relation Age of Onset ??? Chronic Obstructive Pulmonary Disease Mother ??? Angioedema Father ??? Eczema Other ??? Urticaria Other Social History Social History ??? Marital status: Spouse name: N/A ??? Number of children: N/A ??? Years of education: N/A Occupational History ??? Not on file. Social History Main Topics ??? Smoking status: Former Smoker ??? Smokeless tobacco: Not on file ??? Alcohol use Not on file ??? Drug use: No ??? Sexual activity: Not on file Other Topics Concern ??? Not on file Social History Narrative ENVIRONMENTAL HISTORY Patient is disabled Lives in a apt with forced air heat. There is no central a/c. There is not a woodstove. The patienthas seen no pests around the home. There is no known mold or mildew. The patient does not live on afarm. The patient is not exposed to farm animals. Pets: 3 cats, 1 dog PHYSICAL EXAM: BP 136/72 Pulse 83 Temp 36.5 ??C (97.7 ??F) Ht 154.9 cm (5' 1) Wt 85 kg (187 lb 6.4 oz) SpO2 95% BMI 35.41 kg/m2 Gen: AAOx3, no acute distress HEENT: Tympanic membranes clear, no lesions, erythema, or drainage. Conjunctiva not injected. Nasalpassages show pale, enlarged turbinates bilaterally. OP clear without erythema or cobblestoning. NECK: supple, no lymphadenopathy CVS: RRR, no m/r/g LUNGS: CTAB, no wheezing or rales ABD: soft, non-tender, non-distended SKIN: no rashes EXTREMITIES: warm and well-perfused, no edema SKIN TESTING: INHALANT SKIN TESTING Histamine (7, 3) Saline (0, 4) Glycerine (3, 4) D. Lynch (-), D. Pteronyssinus (-) Cat (-), Dog (-), Cockroach (-) AP Dog (-) Leighton Grass (-), [place] (+), Orchard Grass (+), Gagan Grass (+), Bermuda (-) Tiger (-), Christopher (-), Birch (-), [place] (-), [place], Eastern Red (-), Elm (-) Wolfe (-), Maple (-), [place] (+), Gilchrist (-), Rotonda West (-), [place]. [place] (-) Cocklebur (-), Mugwort (-), Pigweed (-), Ragweed, giant (-), Sheep Lopeno (-), Plantain (-) Aspergillus Mix (-), Alternaria (-), Penicillium (-), Cladosporium (-) Helminthosporium (-), Curvularia (-), Epicoccum (-), Fusarium (-), Mucor (-) Stemphyllium Solani (-), A. Fumigatus (-) Grape negative Wheat negative Peanut negative Please see scanned document for full details on sizes of wheals and flares if not indicated above. PRIOR SPIROMETRY REVIEWED FROM 12/2013: Bedside spirometry was performed today, which I personally reviewed. It was abnormal and with evidence of obstruction and restriction. PRE FVC 54% pred FEV1 58% pred FEV1/FVC 106% POST FVC 54% pred FEV1 58% pred FEV1/FVC 107% (No significant change with bronchodilator) PRIO SPT: positive to tree nuts and ampicillin in 2013 ASSESSMENT AND PLAN: 56 y.o. female with Asthma vs. COPD, poorly controlled, allergic rhinitis, food allergy to tree nuts and oral allergy syndrome with fruits, negative on skin testing today to peanut, wheat, and grape.She was positive to grasses and oak tree. Asthma vs. COPD: pt reports a history of asthma but based on renee in 2014 she has restrictive pattern on spirometry and no response to bronchodilator. She has symptoms every night, but she is not compliant with her inhaler. Counseled her that she needs to use the inhaler prescribed by her PCP and recommended pairing with an activity she is less likely to forget, like brushing her teeth. She would likely benefit from full spirometry or pulm eval Allergies: continue zyrtec 10mg daily - add nasonex 2 sprays each nostril daily Food allergy: avoid known allergens (tree nuts, fruits that cause OAS). Recommended carry an epipenbecause of tree nut allergy. Skin tests negative to other foods today. Will get blood tests to confirm negative results. Isolated abdominal pain is not usually due to a food allergy. Recommended avoiding the foods (peanut, toast) going forward if they cause discomfort but they are unlikely to cause a severe reaction like anaphylaxis. Consider seeing GI for chronic abdominal pain. RTO 6 mos. Kitty Cervantes MD documented in this encounter Plan of Treatment Upcoming Encounters Date Type Department Care Team (Late st Contact Info) Description 04/28/2024 1:40 PM EDT Office Visit Cardiology at [address] [phone] Cody Martinez MD [facility] [place] [place] [address] 05/27/2024 11:20 AM EDT Office Visit Dermatology at [facility] [address] [place] [address] 06/13/2024 9:00 AM EDT [place]oint[place] [phone] Kelly Miller APRN [facility] [place] [address] 06/13/2024 10:00 AM EDT Laboratory Appointment Lab [address] [place] [address] 06/13/2024 11:00 AM EDT Office Visit Gastroenterology at [address] Kelly Miller APRN [facility] [place] [address] 10/22/2024 10:30 AM EST Office Visit [place] [phone] Marialuisa Peres MD [facility] [place] [address] documented as of this encounter Procedures Procedure Name Priority Date/Time Associated Diagnosis Comments ALLERGY SCAN 08/29/2016 12:00 AM EST documented in this encounter Results * SCAN DOC: ALLERGY (08/29/2016 12:00 AM EST) Scanning Provider MEDIA MGR SCAN EXT O RDR/RSLT documented in this encounter Visit Diagnoses Diagnosis Food intolerance Other specified intestinal malabsorption Allergic rhinitis, unspecified allergic rhinitis trigger, unspecified rhinitis seasonality Wheezing Food allergy Other adverse food reactions, not elsewhere classified documented in this encounter Care Teams Educational Adviser Relationship Specialty Start Date End Date Kerry Villalobos APRN [address] [place] [address] DR BROWNING, JENI [address] PCP - General 03/08/12 10/29/17 documented as of this encounter
--- OUTSIDE RECORDS SUMMARY | 2024-04-10 13:42 | XMS_ITS | Encounter Summary ---
Author Organization [facility] Address [facility] [place] [address] Care Team Providers Care Music Therapy Specialist Name Role Phone Jennifer Gallagher JU Primary Care Provider + Reason for Visit * Reason Comments Pre-op Exam Coronary Artery Disease Encounter Details Date Type Department Care Team (Latest Contact Info) Description 12/19/2018 2:40 PM EDT Office Visit Cardiology at [address] [phone] [facility] [place] [address] Hypertension, unspecified type; Chest pain, unspecified type; Encounter for pre-operative cardiovascular clearance; ASCVD (arteriosclerotic cardiovascular disease) Social History Tobacco Use Types Packs/Day Years Used Date Smoking Tobacco: Former Smokeless Tobacco: Never Sex and Gender Information Value Date Recorded Sex Assigned at Not on file Gender Identity Not on file Sexual Orientation Not on file documented as of this encounter Last Filed Vital Signs Vital Sign Reading Time Taken Comments Blood Pressure 124/68 12/19/2018 2:38 PM EDT Pulse 79 12/19/2018 2:38 PM EDT Temperature - - Respiratory Rate - - Oxygen Saturation 98% 12/19/2018 2:38 PM EDT Inhaled Oxygen Concentration - - Weight 84.6 kg (186 lb 9.6 oz) 12/19/2018 2:38 P M EDT Height 154.9 cm (5' 1) 12/19/2018 2:38 PM EDT Body Mass Index 35.26 12/19/2018 2:38 PM EDT documented in this encounter Progress Notes * Cody Martinez MD - 12/19/2018 2:40 PM EDT Images from the original note were not included. [facility] [place] [address] CARDIOLOGY OUTPATIENT CONSULTATION [facility] Office Agatha Yi [id number] 12/19/2018 REFERRING PROVIDER: Jennifer Gallagher CHIEF COMPLAINT: Chief Complaint Patient presents with ??? Pre-op Exam ??? Coronary Artery Disease PROBLEM LIST Patient Active Problem List Diagnosis ??? ASCVD (arteriosclerotic cardiovascular disease) ?? Atypical chest pain ?? Abnormal nuclear stress test at [facility] [place] [facility] ?? Heart catheterization [facility] November 06, 2017 showing LVEDP of 20 mmHg; coronary angiography showing normal left main, mild diffuse disease in the LAD, normal circumflex, and mild diffuse disease in the RCA ?? Management with aspirin and atorvastatin ??? CIS - Uterine leiomyoma HISTORY OF PRESENT ILLNESS: This 58-year-old woman was kindly referred for preoperative evaluation before orthopedic surgery. She has some hip problems and is scheduled for some surgery involving herIT band. She has known coronary artery disease although nonobstructive. A bit more than a year ago she apparently presented with atypical chest pain, had an abnormal stress test at her local hospital, and after evaluation by 1 of my colleagues was set up for heart catheterization which was performed at [facility] on November 06, 2017 and showed only some minimal luminal irregularities in her LAD and right coronary artery. No intervention took place. She tells me that she continues to have occasional atypical chest pain. This involves a focal discomfort above her left breast. It occurs at any time and with no particular pattern. Episodes typically last about a minute. Her pain is not exertional. She does not have nocturnal symptoms. PAST MEDICAL HISTORY: Reviewed and updated as appropriate in the medical record. Please refer to detailed Problem List above for current listing of active medical problems. MEDICATIONS: Current Outpatient Medications Medication Sig Dispense Refill ??? nitroGLYcerin (NITROSTAT) 0.4 mg Tablet, Sublingual place 1 tablet under the tongue if needed every 5 minutes for edin... (REFER TO PRESCRIPTION NOTES). 0 ??? lisinopril (PRINIVIL;ZESTRIL) 2.5 mg Tablet Take 2.5 mg by mouth daily. ??? aspirin 81 mg Tablet, Delayed Release (E.C.) Take 81 mg by mouth daily. ??? levothyroxine (SYNTHROID) 75 mcg Tablet Take 75 mcg by mouth daily. ??? HYDROcodone-acetaminophen (NORCO) 5-325 mg Tablet Take 1 tablet by mouth every 6 hours as needed for Pain. ??? MECLIZINE HCL (MECLIZINE ORAL) Take by mouth as needed. Dose unknown ??? mometasone (NASONEX) 50 mcg/actuation [place], Non-Aerosol 2 sprays by Nasal route daily. 17 g 12 ??? cetirizine (ZYRTEC) 10 mg Tablet Take [...] = 1 Capsule(s) PO Once daily ??? citalopram (CELEXA) 20 mg tablet No current facility-administered medications for this visit. ALLERGIES: Amoxicillin; Morphine sulfate; Oxycodone-acetaminophen; and Tetanus and diphtheria toxoids, adsorbed, adult SOCIAL HISTORY: She is and lives with her in [place], [place]. She is currently caring for her granddaughter (and soon her grandson). 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 She was a smoker but quit in 1984. She does not drink alcoholic beverages. FAMILY HISTORY: Her mother is alive at 90. Her father with a myocardial infarction at 85. She has a brother who is 68 and has atrial fibrillation, hypertension, and prostate cancer. She has 2 children, 1 of which is . REVIEW OF SYSTEMS: General: He reports fatigue, difficulty sleeping, and lightheadedness. Eyes: No visual loss, double vision, drainage, eye pain, or dry eyes. ENT: She reports occasional dry mouth. Pulmonary: She reports a frequent cough. Hem/Lymph: No swollen glands, fever, or bleeding. GI: She reports occasional constipation. No diarrhea, melena, nausea, or vomiting. : She reports frequent urination but no dysuria. She denies hematuria. Endocrine: No hot spells, cold spells. Musculoskeletal: No limb pain, joint pain, or joint swelling. Neuro: No focal weakness, ataxia, confusion, paresthesias or headache. Skin: No rashes or dry skin. Psych: No depression, anxiety, suicidal ideation. Cardiac: See HPI PHYSICAL EXAMINATION: Vital Signs: BP 124/68 Pulse 79 Ht 154.9 cm (5' 1) Wt 84.6 kg (186 lb 9.6 oz) SpO2 98% BMI 35.26 kg/m?? Exam Details: On physical examination she appeared in no acute distress. Her vital signs are documented above. Head exam was generally normal. There was no scleral icterus or corneal arcus. Mucus membranes were moist. Neck was supple and without jugular venous distension, thyromegaly, or carotid bruits. Carotids were easily palpable bilaterally. There was no adenopathy. Lungs were clear to auscultation and percussion, and with normal diaphragmatic excursion. No wheezes or rales were noted. Examination of the chest was unremarkable. There were no bony deformities, no asymmetry, or other abnormalities. Her abdomen was soft and nontender. She had no peripheral edema. DATA: Twelve-lead EKG: This revealed normal sinus rhythm with no abnormalities. ASSESSMENT: In summary, this is a 58-year-old woman with fairly atypical sounding chest pain and only some mild luminal irregularities on heart catheterization a bit more than a year ago. She continues to have occasional chest pain although it is highly atypical sounding and very unlikely to represe nt cardiac ischemia. She is reasonably active and can climb a flight of stairs without problems. I think it reasonable to proceed with orthopedic surgery, considering her at low risk of cardiac complications. I recommended that she stay on her aspirin and atorvastatin although her aspirin can be held, if needed, prior to her surgery (resumed afterwards). RECOMMENDATIONS: 1. Continue current medications 2. Reasonable to proceed with orthopedic surgery, considering her at low risk of cardiac complications 3. Okay to temporarily hold aspirin (5-7 days) prior to orthopedic surgery 4. Cardiology follow-up in 1 year Thank you for requesting this consultation. For questions, please feel free to contact me via any of the following mechanisms: Email: [email or web address] documented in this encounter Plan of Treatment Upcoming Encounters Date Type Department Care Team (Late st Contact Info) Description 04/28/2024 1:40 PM EDT Office Visit Cardiology at [address] [phone] [facility] [place] [address] 05/27/2024 11:20 AM EDT Office Visit Dermatology at [place] [address] [place] [address] 06/13/2024 9:00 AM EDT [place] [address] [facility] [place] [address] 06/13/2024 10:00 AM EDT Laboratory Appointment Lab [address] [place] [address] 06/13/2024 11:00 AM EDT Office [place] [address] [facility] [place] [address] 10/22/2024 10:30 AM EST Office Visit [place] [phone] [facility] [place] [address] documented as of this encounter Procedures Procedure Name Priority Date/Time Associated Diagnosis Comments EKG 12-LEAD Routine 12/19/2018 2:38 PM EDT Hypertension, unspecified type Chest pain, unspecified type Encounter for pre-operative cardiovascular clearance documented in this encounter Results * EKG 12 Lead (12/19/2018 2:38 PM EDT) Ventricular rate 77 BPM MUSE SYSTEM Atrial Rate 77 BPM MUSE SYSTEM P-R Interval 164 ms MUSE SYSTEM QRS Duration 74 ms MUSE SYSTEM Q-T Interval 398 ms MUSE SYSTEM QTC Calculated (Bezet) 450 ms MUSE SYSTEM Calculated P [place] 34 degrees MUSE SYSTEM Calculated R [place] -18 degrees MUSE SYSTEM Calculated T [place] 36 degrees MUSE SYSTEM INTERPRETATION Normal sinus rhythm Nonspecific ST abnormality Abnormal ECG When compared with ECG of 06-NOV-2017 12:38, Nonspecific T wave abnormality no longer evident in Inferior leads Nonspecific T wave abnormality no longer evident in Anterior leads Confirmed by MD Juan, Cody ([id number]) on 12/19/2018 4:01:16 PM MUSE SYSTEM 12/19/2018 2:38 PM EDT 12/19/2018 4:01 PM EDT Cody Martinez MD ECG ORDERABLES MUSE SYSTEM documented in this encounter Visit Diagnoses Diagnosis Hypertension, unspecified type Chest pain, unspecified type Encounter for pre-operative cardiovascular clearance Pre-operative cardiovascular examination ASCVD (arteriosclerotic cardiovascular disease) Unspecified cardiovascular disease documented in this encounter Care Teams Music Therapy Specialist Relationship Specialty Start Date End Date Jennifer Gallagher APRN [address] [place] [address] , [address] [place] [address] PCP - General Family Medicine 10/30/17 01/28/21 documented as of this encounter
--- OUTSIDE RECORDS SUMMARY | 2024-04-10 13:42 | XMS_ITS | Encounter Summary ---
Author Organization [facility] Address [facility] [place] [address] Care Team Providers Care Dealer Analyst Name Role Phone Jennifer Gallagher JU Primary Care Provider + Encounter Details Date Type Department Care Team (Late st Contact Info) Description 02/02/2020 Telephone Cardiology at [address] [phone] Roseline Esquivel Social History Tobacco Use Types Packs/Day Years Used Date Smoking Tobacco: Former Smokeless Tobacco: Never Sex and Gender Information Value Date Recorded Sex Assigned at Not on file Gender Identity Not on file Sexual Orientation Not on file documented as of this encounter Miscellaneous Notes * Telephone Encounter - Roseline Esquivel LNA - 02/02/2020 3:26 PM EDT Called and reviewed chart with pt Weight 185 lb No recent BP and HR No recent hospitalizations Pt needs refills for Celexa 10mg daily and Nitro. Team Nurse notified documented in this encounter Plan of Treatment Upcoming Encounters Date Type Department Care Team (Late st Contact Info) Description 04/28/2024 1:40 PM EDT Office Visit Cardiology at [address] [phone] Cody Martinez MD [facility] [address] CARDIOLOGY DEPT. [place], [place] [phone] 05/27/2024 11:20 AM EDT Office Visit Dermatology at [facility] [address] [place] [address] 06/13/2024 9:00 AM EDT Appointment Ultrasound at [place] [phone] Kelly Miller APRN [facility] [place] [place] [address] 06/13/2024 10:00 AM EDT Laboratory Appointment Lab [address] [phone] 06/13/2024 11:00 AM EDT Office Visit Gastroenterology at [place] [phone] Kelly Miller COMMERCIAL ROOFER [facility] [place] [address] 10/22/2024 10:30 AM EST Office Visit Weight and Wellness at [place] [phone] Marialuisa Peres MD [facility] [place] [address] documented as of this encounter Visit Diagnoses Not on filedocumented in this encounter Care Teams Dealer Analyst Relationship Specialty Start Date End Date Jennifer Gallagher APRN [address] [place] [address] , [address] [place] [address] PCP - General Family Medicine 10/30/17 01/28/21 documented as of this encounter
--- OUTSIDE RECORDS SUMMARY | 2024-04-10 13:42 | XMS_ITS | Encounter Summary ---
[place] [address] Care Team Providers Care Animal Trainer Name Role Phone ElliottJennifer JU Primary Care Provider + Encounter Details Date Type Department Care Team (Latest Contact Info) Description 08/06/2020 11:06 PM EST - 08/06/2020 11:59 PM EST Hospital [place] [address] Discharge Disposition: Home Social History Tobacco Use Types Packs/Day Years Used Date Smoking Tobacco: Former Smokeless Tobacco: Never Sex and Gender Information Value Date Recorded Sex Assigned at Not on file Gender Identity Not on file Sexual Orientation Not on file documented as of this encounter Medications at Time of Discharge Medication Sig Dispensed Refills Start Date End Date nitroGLYcerin (Nitrostat) 0.4 mg Tablet, SublingualIndications:ASC VD [...] spacer citalopram (CELEXA) 20 mg tablet 07/19/2009 traMADoL (Ultram) 50 mg Tablet TK 1 T PO BID PRF PAIN 11/17/2019 04/11/2021 lisinopril (PRINIVIL;ZESTRIL) 2.5 mg Tablet Take 2.5 mg by mouth daily. 04/11/2021 aspirin 81 mg Tablet, Delayed Release (E.C.) Take 81 mg by mouth daily. 04/11/2021 levothyroxine (SYNTHROID) 75 mcg Tablet Take 75 mcg by mouth daily. 04/11/2021 mometasone (NASONEX) 50 mcg/actuation Campbell, Non-Aerosol 2 sprays by Nasal route daily. 17 g 12 08/31/2016 04/11/2021 fluticasone-salmeterol (ADVAIR HFA) 115-21 mcg/actuation HFA Aerosol [...] 1:40 PM EDT Office Visit Cardiology at [address] [phone] Cody Martinez MD [facility] [place] [address] 05/27/2024 11:20 AM EDT Office Visit Dermatology at [facility] [address] [place] [address] 06/13/2024 9:00 AM EDT Appointment Ultrasound at [place] [phone] Kelly Miller APRN [facility] [place] [address] 06/13/2024 10:00 AM EDT Laboratory Appointment Lab [address] [place] [phone] 06/13/2024 11:00 AM EDT Office [place] [phone] Kelly Miller ELECTRICAL MAINTENANCE TECHNICIAN [facility] [place] [address] 10/22/2024 10:30 AM EST Office Visit [place] [phone] Marialuisa Peres MD [facility] [place] [address] documented as of this encounter Procedures Procedure Name Priority Date/Time Associated Diagnosis Comments COVID-19 PCR Routine 08/06/2020 9:54 AM EST documented in this encounter Results * COVID-19 PCR (08/06/2020 9:54 AM EST) SARS-CoV-2 RNA Not Detected Not Detected [facility] Comment: This result should be interpreted in combination with the clinical observations, patient history and epidemiological information in making a final diagnosis. For testing of asymptomatic individuals, assay performance characteristics and clinical utility have not been evaluated. Testing for SARS-CoV-2 (Severe acute respiratory syndrome coronavirus 2, formerly known as 2019 novel coronavirus or 2019-nCoV) to aid in the diagnosis of COVID-19 is performed using the Zones m SARS-CoV-2 Assay as authorized by the FDA Emergency Use Authorization (EUA). This EUA assay is intended for In-vitro Diagnostic (IVD) use with respiratory specimens such as nasopharyngeal swabs collected from individuals during the acute phase of infection. This assay is performed based on the instructions for use provided by [employer] and additional guidance provided by CDC and FDA. Testing is performed in the [facility] within the Department of Pathology and Laboratory Medicine at [facility], certified under the Clinical Laboratory Improvement Amendments of 1988 (CLIA), 42 U.S.C. 263a, to perform high complexity tests. Assay performance has been verified according to clinical laboratory regulatory requirements for use with specimens collected from individuals suspected of COVID-19. Test results are provided above. A result of ? Not Detected? indicates that the viral RNA target is not present above the limit of detection, but does not preclude SARS-CoV-2 infection. False negative results may occur if a specimen is improperly collected, transported or handled; if amplification inhibitors are present; or if inadequate numbers of viral particles are present in the specimen. When a diagnostic test is negative, the possibility of a false negative result should be considered in the context of a patient? s recent exposures and the presence of clinical signs and symptoms consistent with COVID-19. A result of ? Detected? indicates that RNA from SARS-CoV-2 was detected and the patient is infected. As required or requested by public health authorities, positive specimens may be sent for additional testing. Positive and negative predictive values for this test are highly dependent on disease prevalence. A result of ? Invalid? indicates that neither the viral RNA targets nor the internal control target was detected. An invalid result suggests the presence of inhibitors. Recollection and re-testing is recommended in the case of an invalid result. CDC COVID-19 criteria for testing on human specimens and clinical management guidance information are available at the CDC Coronavirus Disease 2019 (COVID-19) webpage under ? Information for Healthcare Professionals? (https://www.cdc.gov/coronavirus/2019-ncov/hcp/index.html) Additional information about this and other EUA tests can be found in provider and patient fact sheets at the following FDA website: https://www.fda.gov/medical-devices/yhikasrsbek-wgbpjjs-4108-hrhlw-09-hxwmkmtht- use-a lpernrgsxupbw-sbecyce-cmewrla/mydag-rvtgtksjdqz-idcm SARS-Cov-2 RNA Source Nasal [facility] Specimen from nose (specimen) Other / Unknown 08/06/2020 9:54 AM EST 08/07/2020 3:47 AM EST Narrative Resulting Agency Comment Spec In Lab Coy Perez MD MICROBIOLOGY - GENER AL ORDERABLES Performing Organization Address City/State/[facility] Co de Phone Number [facility] [place] [address] documented in this encounter Visit Diagnoses Not on filedocumented in this encounter Care Teams Animal Trainer Relationship Specialty Start Date End Date Jennifer Gallagher APRN [address] [place] [address] , [address] [place] [address] PCP - General Family Medicine 10/30/17 01/28/21 documented as of this encounter
--- OUTSIDE RECORDS SUMMARY | 2024-04-10 13:42 | XMS_ITS | Encounter Summary ---
Author Organization [facility] [place] [address] Care Team Providers Care Recovery Specialist Name Role Phone Kerry Villalobos APRN Primary Care Provider [phone] Encounter Details Date Type Department Care Team (Late st Contact Info) Description 10/01/2012 Ancillary Procedure [place] [address] Kerry Ascencio PA [address] [place] [phone] Social History Tobacco Use Types Packs/Day Years [...] PM EDT Office Visit Cardiology at [address] [phone] Cody Martinez MD [facility] [place] [address] 05/27/2024 11:20 AM EDT Office Visit Dermatology at [facility] [address] [place] [phone] 06/13/2024 9:00 AM EDT [place]oint[place] [address] Kelly Miller APRN [facility] [place] [address] 06/13/2024 10:00 AM EDT Laboratory Appointment Lab [address] [phone] 06/13/2024 11:00 AM EDT Office [place] [phone] Kelly Miller CARRIER DRIVER [facility] [place] [address] 10/22/2024 10:30 AM EST Office Visit [place] [phone] Marialuisa Peres MD [facility] [place] [address] documented as of this encounter Procedures Procedure Name Priority Date/Time Associated Diagnosis Comments FILM LIBRARY STORAGE ONLY MAMMO Routine 10/01/2012 12:00 AM EST documented in this encounter Results * Film Library- Storage Only Mammo (10/01/2012 12:00 AM EST) Narrative [facility] - 12/29/2021 9:54 AM EDT This exam is auto-finalizing. It's purpose is for storage only. Kerry MILLS IMFidelina FILM LIBRARY ORDERABLES [place], [place] documented in this encounter Visit Diagnoses Not on filedocumented in this encounter Care Teams Recovery Specialist Relationship Specialty Start Date End Date Kerry Villalobos APRN [address] [place] [address] [place] [address] PCP - General 03/08/12 10/29/17 documented as of this encounter
--- OUTSIDE RECORDS SUMMARY | 2024-04-10 13:42 | XMS_ITS | Encounter Summary ---
Author Organization [facility] [place] [address] Care Team Providers Care Director Marketing Name Role Phone Jennifer Gallagher TELEVISION DIRECTOR Primary Care Provider + Encounter Details Date Type Department Care Team (Late st Contact Info) Description 11/01/2020 Ancillary Procedure [place] [address] Kerry Ascencio PA [address] [place] [address] [place], [place] [phone] Social History Tobacco Use Types Packs/Day Years [...] PM EDT Office Visit Cardiology at [address] [phone] Cody Martinez MD [facility] [place] [address] 05/27/2024 11:20 AM EDT Office Visit Dermatology at [facility] [address] [place] [address] 06/13/2024 9:00 AM EDT [place] [address] Kelly Miller APRN [facility] [place] [address] 06/13/2024 10:00 AM EDT Laboratory Appointment Lab [address] [place] [phone] 06/13/2024 11:00 AM EDT Office [place] [phone] Kelly Miller TELEVISION DIRECTOR [facility] [place] [address] 10/22/2024 10:30 AM EST Office Visit [place] [phone] Marialuisa Peres MD [facility] [place] [address] documented as of this encounter Procedures Procedure Name Priority Date/Time Associated Diagnosis Comments FILM LIBRARY STORAGE ONLY MAMMO Routine 11/01/2020 12:00 AM EST documented in this encounter Results * Film Library- Storage Only Mammo (11/01/2020 12:00 AM EST) Narrative [facility] - 12/29/2021 9:51 AM EDT This exam is auto-finalizing. It's purpose is for storage only. Kerry MILLS IMFidelina FILM LIBRARY ORDERABLES [place], [place] documented in this encounter Visit Diagnoses Not on filedocumented in this encounter Care Teams Director Marketing Relationship Specialty Start Date End Date Jennifer Gallagher APRN [address] [place] [address] [address] [place] [address] PCP - General Family Medicine 10/30/17 01/28/21 documented as of this encounter
--- OUTSIDE RECORDS SUMMARY | 2024-04-10 13:42 | XMS_ITS | Encounter Summary ---
Author Organization [facility] [place] [address] Care Team Providers Care Inhalation Therapist Name Role Phone Jennifer Gallagher TRAVEL REGISTERED NURSE PACU Primary Care Provider + Encounter Details Date Type Department Care Team (Late st Contact Info) Description 11/11/2020 Ancillary Procedure [place] [address] Kerry Ascencio PA [address] [place] [address] [place], [place] [phone] Social History Tobacco Use Types Packs/Day Years [...] PM EDT Office Visit Cardiology at [address] [phone] Cody Martinez MD [facility] [place] [address] 05/27/2024 11:20 AM EDT Office [facility] [address] [place] [phone] 06/13/2024 9:00 AM EDT [place] [address] Kelly Miller APRN [facility] [place] [address] 06/13/2024 10:00 AM EDT Laboratory Appointment Lab [address] [place] [phone] 06/13/2024 11:00 AM EDT Office [place] [phone] Kelly Miller TRAVEL REGISTERED NURSE PACU [facility] [address] 10/22/2024 10:30 AM EST Office Visit [place] [phone] Marialuisa Peres MD [facility] [place] [address] documented as of this encounter Procedures Procedure Name Priority Date/Time Associated Diagnosis Comments FILM LIBRARY STORAGE ONLY MR SHOULDER Routine 11/11/2020 12:00 AM EST documented in this encounter Results * Film Library- Storage Only MR Shoulder (11/11/2020 12:00 AM EST) Narrative [facility] - 08/23/2023 4:28 PM EST This exam is auto-finalizing. It's purpose is for storage only. Kerry MILLS IMFidelina FILM LIBRARY ORDERABLES [place], [place] documented in this encounter Visit Diagnoses Not on filedocumented in this encounter Care Teams Inhalation Therapist Relationship Specialty Start Date End Date Jennifer Gallagher APRN [address] [place] [address] [address] [place] [address] PCP - General Family Medicine 10/30/17 01/28/21 documented as of this encounter
--- OUTSIDE RECORDS SUMMARY | 2024-04-10 13:42 | XMS_ITS | Encounter Summary ---
Author Organization Formerly [facility] Address [facility] [place] [address] Care Team Providers Care Cone Treater Name Role Phone Jennifer Gallagher JU Primary Care Provider + Reason for Visit * Auth/Cert Specialty Diagnoses / Procedures Referred By Clari dickey Referred To Contact Diagnoses Chest pain, unspecified type [R07.9] Procedures CARDIAC CATHETERIZATION Referral ID Status Reason Start Date Expiration Date Visits Re quested Visits Authorized [id number] 1 1 Encounter Details Date Type Department Care Team (Latest Contact Info) Description 11/06/2017 7:37 AM EST - 11/06/2017 1:06 PM EST Hospital Encounter [place] [address] Michelet Kirkpatrick MD [facility] [place] [address] Chest pain, unspecified type Discharge Disposition: Home Social History Tobacco Use Types Packs/Day Years Used Date Smoking Tobacco: Former Smokeless Tobacco: Never Sex and Gender Information Value Date Recorded Sex Assigned at Not on file Gender Identity Not on file Sexual Orientation Not on file documented as of this encounter Last Filed Vital Signs Vital Sign Reading Time Taken Comments Blood Pressure 137/81 11/06/2017 12:30 PM EST Pulse 74 11/06/2017 11:30 AM EST Temperature 36.7 ??C (98.1 ??F) 11/06/2017 11:[address] Respiratory Rate 15 11/06/2017 11:30 AM EST Oxygen Saturation 95% 11/06/2017 12:30 PM EST Inhaled Oxygen Concentration - - Weight 77.1 kg (170 lb) 11/06/2017 8:23 AM EST Height 154.9 cm (5' 1) 11/06/2017 8:23 AM EST Body Mass Index 32.12 11/06/2017 8:23 AM EST documented in this encounter Discharge Summaries * Michelet Kirkpatrick MD - 11/06/2017 11:05 AM EST [facility] SAME DAY DISCHARGE SUMMARY Agatha Yi [id number] 11/06/2017 Primary Care Provider: Jennifer Gallagher APRN Referring Eeg Tech: Ede Naranjo MD Procedures: Left heart catheterization, coronary angiography. Indication: Agatha Yi is a 57 yo woman with hx of MOISES, HTN, HLD and chronic chest pain who presents for elective cardiac catheterization after worsening chest pain and abnormal MPI. Hospital Course: After obtaining informed consent, cardiac catheterization was performed via the right radial arteryusing 5 Fr catheters. Hemostasis was obtained with mechanical compression. The procedure was well tolerated and there were no complications. The findings (see below) were reviewed with Ms. Yi and her as well as with Dr. Naranjo. Plans are for continued medical therapy and lifestyle mo dification. After observation and ambulation in Same Day Surgery, Ms. Yi was discharged. She was discharged on her usual medications. Cardiology follow- up will continue with Dr. Naranjo. Findings: 1. Nonobstructive coronary artery disease. 2. Elevated left ventricular end diastolic pressure (LV = 140/20 mmHg). Mihcelet Kirkpatrick MD, [facility] Staff Eeg Tech 11/06/2017 documented in this encounter Discharge Instructions * Patient Instructions* Cristina Parekh Gavin - 11/06/2017 10:42 AM EST Cardiology Instructions Call your doctor if: Chest pain, dyspnea, pain or swelling in legs occurs. If you have non-emergent questions between now and the time of your follow up appointments: -During 8am-5pm Sunday through Sunday call [phone] to speak with a nurse in the cardiology clinic -All other times call [phone] and ask to speak to the director quality assurance collection systems foreman. MEDICATIONS - Please discuss with Dr. Naranjo any other medications that he may consider for chest pain. He may consider starting a medication such as Amlodipine since the Imdur gave you headaches and the Metoprolol gave you hot flashes. - keep nitroglycerin with you at all times, if you have chest pain, can take 1 tablet under your tongue every 5 minutes up to 3 tablets. If your pain does not resolve you need to call 911. Return to work/ usual actvities: 1 week, as tolerated. 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 Driving: No driving for 48 hours after catheterization. Follow up Appointments: Primary care provider: Cardiology: Jennifer Gallagher APRN [phone] Follow up as planned or as needed. Dr. Naranjo [phone] Call for follow up appointment 2weeks-1month following catherization. * Attachments The following attachments cannot be sent through Care Everywhere. * CORONARY ANGIOGRAM: POST-OP (URUGUAYAN) documented in this encounter Medications at Time of Discharge Medication Sig Dispensed Refills Start Date End Date MECLIZINE HCL (MECLIZINE ORAL) Take by mouth [...] spacer citalopram (CELEXA) 20 mg tablet 07/19/2009 aspirin 81 mg Tablet, Delayed Release (E.C.) Take 81 mg by mouth daily. 04/11/2021 levothyroxine (SYNTHROID) 75 mcg Tablet Take 75 mcg by mouth daily. 04/11/2021 HYDROcodone-acetaminophe n (NORCO) 5-325 mg Tablet Take 1 tablet by mouth every 6 hours as needed for Pain. 02/02/2020 mometasone (NASONEX) 50 mcg/actuation [place], Non-Aerosol 2 sprays by Nasal route daily. 17 g 12 08/31/2016 04/11/2021 fluticasone-salmeterol (ADVAIR HFA) 115-21 mcg/actuation HFA Aerosol Inhaler Inhale 2 puffs into the lungs 2 times daily. 01/31/2022 citalopram (CELEXA) 10 mg Tablet Take 10 mg by mouth daily. 0 06/24/2016 02/02/2020 topiramate (TOPAMAX) 50 mg Tablet Take 50 mg by mouth daily. 0 05/26/2016 12/20/2022 SUMAtriptan (IMITREX) 50 mg Tablet Take 50 mg by mouth as needed. 0 06/05/2016 12/20/2022 docusate sodium (COLACE) 250 mg capsule Take by mouth. 04/01/2010 01/31/2022 documented as of this encounter Progress Notes * Megan Monzon RN - 11/06/2017 1:05 PM EST Patient discharge to home. IV removed, site benign. My assessment remains unchanged from my previous assessment. RN Discussed pain management with patient, pain tolerable. Patient with no s/s of bleeding or hematoma at discharge. Patient has all belongings and supplies needed. Patient received After Visit Summary and prescriptions. This was reviewed with patient and , patient verbalizes understanding of AVS. All questions answered. Patient encouraged to call with questions or concerns. Patient discharged to home with family. documented in this encounter H&P Notes * Cristina Parekh T - 11/06/2017 8:48 AM EST Images from the original note were not included. Patient Name: Agatha Yi Patient Age: 57 y.o. Birthdate: 1960 Admit date: 11/06/2017 Attending Physician: Michelet Kirkpatrick MD Complete Adult Pre-Procedural H&P Patient Name: Agatha Yi : [id number] y.o. MR#: [id number] Chief Complaint: chest pain Planned Procedure: LHC and coronary angiogram History of Present Illness: HPI Pre-Cardiac Catheterization 24 hr Update: Please see Dr. Naranjo's note dated 10/25/2017 for full details regarding reason for referral for cardiac catheterization. In short, this is a 57 yo woman with hx of MOISES, HTN, HLD and chronic chest pain who presents for elective cath after worsening chest pain and positive nuclear stress test. Therehas been no significant interval change in clinical status since that visit. VS and labs are stable. Took aspirin this morning. PE normal. R Praveen signs is normal. No femoral bruits. No active bleeding issues; +candidate for a BENSON. I have reviewed and updated as necessary the Medical, Surgical, Family, and Social History capturedwithin the EMR. I have reviewed and updated as necessary the patient's allergies and current medication list withinthe EMR. Review of Systems: Review of Systems Physical Exam: Vitals: 11/06/17 0823 BP: 124/80 Pulse: 64 Resp: 20 Temp: 36.4 ??C (97.5 ??F) TempSrc: Oral SpO2: 97% Weight: 77.1 kg (170 lb) Height: 154.9 cm (5' 1) Physical Exam GEN: alert and oriented x3, NAD HEENT: MMM, no JVD appreciated, but neck habitus largely precludes complete examination CARDIAC: RRR, normal S1 and S2, no m/r/g appreciated RESP: CTAB, no w/r/r ABD: +BS, soft, nontender, distended due to body habitus EXT: no peripheral edema NEURO: CNII-XII intact, motor and sensory exams normal PULSES: 2+ radial symmetric, normal Praveen's bilaterally, 2+ DP symmetric,unable to palpate PT, 2+ femoral on the R, 1+ on the L, no femoral bruits appreciated Pulmonary: Breath sounds clear to auscultation ASA: 2: Patient with mild systemic disease Mallampati: III: only the base of the uvula can be seen-IV Labs: Last 3 wbc, hgb, hct plt Recent Labs 11/06/17 0759 WBC 6.1 HGB 14.4 HCT 43.0 PLATELET 206 Last 3 Lytes Recent Labs 11/06/17 0759 NA 143 K 4.5 CL 105 CO2 26 BUN 9 CREATININE 0.89 Last 3 Lytes Recent Labs 11/06/17 0759 NA 143 K 4.5 CL 105 CO2 26 BUN 9 CREATININE 0.89 Last Ca, Mg, Phos Recent Labs 11/06/17 0759 CALCIUM 9.4 Last 3 ProBNP, Trop, CK No results for input(s): CK, TROPONINT, PROBNP in the last 168 hours. Assessment and Plan: 57 yo woman with hx of HTN and HLD who presents for evaluation of atypical chest pain and positive stress test. - plan for LHC and coronary angio via R radial approach - Full code - No obvious contraindications to DAPT - Consent signed Sedation Plan: moderate (conscious sedation) Cristina Parekh MD 11/06/17 documented in this encounter Plan of Treatment Upcoming Encounters Date Type Department Care Team (Late st Contact Info) Description 04/28/2024 1:40 PM EDT Office Visit Cardiology at [address] [phone] Cody Martinez MD [facility] [place] [address] 05/27/2024 11:20 AM EDT Office Visit Dermatology at [facility] [address] [place] [address] 06/13/2024 9:00 AM EDT [place] [phone] Kelly Miller APRN [facility] [place] [address] 06/13/2024 10:00 AM EDT Laboratory Appointment Lab [address] [place] [phone] 06/13/2024 11:00 AM EDT Office Visit Gastroenterology at [place] [phone] Kelly Miller APRN [facility] [place] [address] 10/22/2024 10:30 AM EST Office Visit [place] [address] Marialuisa Peres MD [facility] [place] [address] documented as of this encounter Procedures Procedure Name Priority Date/Time Associated Diagnosis Comments EKG 12-LEAD STAT 11/06/2017 12:38 PM EST Chest pain, unspecified type BMP W/FASTING GLUCOSE STAT 11/06/2017 7:59 AM EST HEMOGRAM STAT 11/06/2017 7:59 AM EST DIFFERENTIAL, AUTOMATED STAT 11/06/2017 7:59 AM EST PROTHROMBIN TIME STAT 11/06/2017 7:59 AM EST CBC (WITH DIFF) STAT 11/06/2017 7:59 AM EST documented in this encounter Results * EKG 12 Lead (11/06/2017 12:38 PM EST) Ventricular rate 70 BPM MUSE SYSTEM Atrial Rate 70 BPM MUSE SYSTEM P-R Interval 182 ms MUSE SYSTEM QRS Duration 76 ms MUSE SYSTEM Q-T Interval 412 ms MUSE SYSTEM QTC Calculated (Bezet) 444 ms MUSE SYSTEM Calculated P [place] 20 degrees MUSE SYSTEM Calculated R [place] -19 degrees MUSE SYSTEM Calculated T [place] 7 degrees MUSE SYSTEM INTERPRETATION Normal sinus rhythm Low voltage QRS Nonspecific T wave abnormality Poor R-wave progression Abnormal ECG When compared with ECG of 25-OCT-2017 13:41, No significant change was found Confirmed by MD PHAN, CODY ([id number]) on 11/06/2017 5:05:23 PM MUSE SYSTEM 11/06/2017 12:3 8 PM EST 11/06/2017 5:05 PM EST Michelet Kirkpatrick MD ECG ORDERABLES MUSE SYSTEM * Differential, Automated (11/06/2017 7:59 AM EST) Neutrophils % 56.2 % [facility] Neutr Abs (ANC) 3.41 1.70 - 6.10 x10(3)/[facility] Lymphocytes % 31.7 % [facility] Lymphocytes Abs 1.9 0.9 - 3.2 x10(3)/[facility] Monocytes % 8.1 % [facility] Monocyte Abs 0.5 0.3 - 0.9 x10(3)/[facility] Eosinophils % 2.6 % [facility] Eosinophils Abs 0.2 0.0 - 0.4 x10(3)/[facility] Basophils % 1.2 % [facility] Basophils Abs 0.1 0.0 - 0.1 x10(3)/[facility] Immature Gran % 0.20 % [facility] Comment: Immature granulocytes(IG's)percentage and absolute count will include metamyelocytes, myelocytes, and promyelocytes. Blood smears from CBCs yielding IG's will be scanned manually for concordance. If this scan disagrees with the automated IG or if promyelocytes are noted, a manual differential will be performed. Larissa Gran Abs 0.01 0.00 - 0.04 x10(3)/[facility] Blood specimen (specimen) 11/06/2017 7:59 AM EST 11/06/2017 8:18 AM EST Narrative Resulting Agency Comment Spec In Lab Ede Naranjo MD HEMATOLOGY ORDERAB LES Performing Organization Address City/[facility]/[place] [address] * (ABNORMAL) Hemogram (11/06/2017 7:59 AM EST) WBC 6.1 4.0 - 9.5 x10(3)/[facility] RBC 4.59 4.00 - 5.21 x10(6)/[facility] Hemoglobin 14.4 11.7 - 15.5 gm/dL [facility] Hematocrit 43.0 35.7 - 45.8 % [facility] MCV 93.7 82.6 - 94.4 fL [facility] MCH 31.4 27.1 - 32.0 pg [facility] MCHC 33.5 31.7 - 35.0 gm/dL [facility] Platelets 206 145 - 357 x10(3)/[facility] RDWSD 47.4(H) 37.0 - 46.0 [facility] RDWCV 13.8 11.5 - 14.1 % [facility] MPV 12.0 7.6 - 12.9 [facility] nRBC % Auto 0.0 % [facility] nRBC Abs Auto 0.000 0.000 - 0.000 x10(3)/[facility] Blood specimen (specimen) 11/06/2017 7:59 AM EST 11/06/2017 8:18 AM EST Narrative Resulting Agency Comment Spec In Lab Ede Naranjo MD HEMATOLOGY ORDERAB LES [facility] [place] [address] * (ABNORMAL) BMP w/fasting Glucose (11/06/2017 7:59 AM EST) Glucose Fasting 103(H) 65 - 99 mg/dL [facility] Comment: ?Fasting* Glucose Interpretive Criteria Normal ?65-99 mg/dL Impaired Fasting glucose ?100-125 mg/dL Consistent with Diabetes Mellitus ? >or= 126 mg/dL *Fasting is defined as no caloric intake for at least 8 hours In the absence of unequivocal hyperglycemia a plasma glucose value of >or= 126 mg/dL should be repeated on a subsequent day. Diagnosis and Classification of Diabetes Mellitus, Position Statement from the [place] [employer]. ??Diabetes Care, Volume 33, Supplement 1, Sep 2009 BUN 9 8 - 18 mg/dL [facility] Creatinine 0.89 0.70 - 1.20 mg/dL [facility] Sodium 143 135 - 145 mmol/L [facility] Potassium 4.5 3.5 - 5.0 mmol/L [facility] Comment: Please note: ??Patients with WBC >100,000 may have falsely elevated Potassium levels. ??For accurate Potassium quantification in these patients send serum separator tube (gold top) for subsequent determinations. ??Contact the Clinical Chemistry Laboratory if there are any questions. Chloride 105 98 - 107 mmol/L [facility] CO2 26 22 - 31 mmol/L [facility] Anion Gap 12 5 - 15 mmol/L [facility] Calcium 9.4 8.5 - 10.5 mg/dL [facility] Estimated GFR >60 >=60 [facility] Comment: The reported eGFR should be multiplied by 1.2 for patients. The MDRD is not an appropriate measure of renal function for patients with body mass extremes or in patients with acute kidney failure. http://Tugg.SurveyGizmo/Raquelkdep http://Tugg.SurveyGizmo/DHMCnkf Blood specimen (specimen) 11/06/2017 7:59 AM EST 11/06/2017 8:18 AM EST Narrative Resulting Agency Comment Spec In Lab Ede Naranjo MD CHEMISTRY ORDERABL ES Performing Organization Address [facility] Phone Number [facility] [place] [address] * Prothrombin Time (11/06/2017 7:59 AM EST) PT 12.8 11.8 - 14.0 sec [facility] INR 1.0 0.9 - 1.1 [facility] Comment: An INR <2.0 indicates [...] be appropriate depending on clinical circumstances. Blood specimen (specimen) 11/06/2017 7:59 AM EST 11/06/2017 8:18 AM EST Narrative Resulting Agency Comment Spec In Lab Ede Naranjo MD HEMATOLOGY ORDERAB LES Performing Organization Address [facility] de Phone Number [facility] [place] [address] documented in this encounter Visit Diagnoses Diagnosis Chest pain, unspecified type documented in this encounter Administered Medications Inactive Administered Medications - up to 3 most recent administrations Medication Order MAR Action Action Date Dose Rate Site lidocaine (XYLOCAINE) 10 mg/mL (1 %) injection 3 mg 3 mg (0.3 mL), Subcutaneous, ONCE PRN, 1 dose, Starting on Sun11/06/17 at 0813, Until Sun11/06/17 at 0910, with discomfort with PIV insertion, Cath (Day of Procedure), Routine Given 11/06/2017 9:10 AM EST 3 mg sodium chloride 0.9% infusion 200 mL/hr, Intravenous, CONTINUOUS, Starting on Sun11/06/17 at 0830, Until 11/06/17 at 1305, Cath (Day of Procedure) New Bag 11/06/2017 9:15 AM EST 200 mL/hr 200 mL/hr sodium chloride 0.9% infusion 100 mL/hr, Intravenous, CONTINUOUS, Starting on 11/06/17 at 1100, Until 11/06/17 at 1259, Recovery (Recovery-Hospital Unit) New Bag 11/06/2017 10:50 AM EST 100 mL/hr 100 mL/hr documented in this encounter Active and Recently Administered Medications Times are shown in EST. Continuous Medication Order 11/04/2017 11/05/2017 11/06/2017 sodium chloride 0.9% infusion (CANCELED) 200 mL/hr, Intravenous, CONTINUOUS, Starting on 11/06/17 at 0830, Until 11/06/17 at 1305, Cath (Day of Procedure) 0830 (Due)0915 (New Bag - Provider: Ede Jon RN) sodium chloride 0.9% infusion 100 mL/hr, Intravenous, CONTINUOUS, Starting on 11/06/17 at 1100, Until 11/06/17 at 1259, Recovery (Recovery-Hospital Unit) 1050 (New Bag - Prov ider: Brenna Velarde RN) PRN Medication Order 11/04/2017 11/05/2017 11/06/2017 fentaNYL 50 mcg/mL multi-dose injection (CANCELED) ONCE PRN, Starting on 11/06/17 at 0949, Until 11/06/17 at 1305, Intra-Operative (Intra-Procedure), Routine 0949 (Given - Provid er: Chanelle Mckinney, EMELY) heparin (porcine) injection (CANCELED) ONCE PRN, Starting on 11/06/17 at 1005, Until 11/06/17 at 1305, Cath (Intra-Procedure), Routine 1005 (Given - Provid er: Chanelle Mckinney, EMELY) lidocaine (XYLOCAINE) 10 mg/mL (1 %) injection 3 mg (COMPLETED) 3 mg (0.3 mL), Subcutaneous, ONCE PRN, 1 dose, Starting on 11/06/17 at 0813, Until 11/06/17 at 0910, with discomfort with PIV insertion, Cath (Day of Procedure), Routine 0910 (Given - Provid er: Ede Jon RN) midazolam (PF) (VERSED) 1 mg/mL multi-dose injection (CANCELED) ONCE PRN, Starting on 11/06/17 at 0948, Until 11/06/17 at 1305, Cath (Intra-Procedure), Routine 0948 (Given - Provid er: Chanelle Mckinney RN) nitroGLYcerin (NITROSTAT) SL tablet 0.4 mg 0.4 mg, Sublingual, EVERY 5 MIN PRN, Starting on Sun11/06/17 at 1044, Until 11/06/17 at 1506, Chest pain, May repeat every 5 minutes for a total of three doses. Notify provider if chest pain not relieved with nitroglycerin. Do not administer nitroglycerin if the patient has received or taken phosphodiesterase (PDE-5) inhibitors such as sildenafil, tadalafil or vardenafil within the last 24 to 72 hours., Recovery (Recovery-Hospital Unit), Routine nitroGLYcerin 100 mcg/mL intracoronary dilution (CANCELED) ONCE PRN, Starting on e 11/06/17 at 1002, Until 11/06/17 at 1305, Cath (Intra-Procedure), Routine 1002 (Given - Provid er: Cristina Parekh) verapamil (ISOPTIN) injection (CANCELED) ONCE PRN, Starting on e 11/06/17 at 1002, Until 11/06/17 at 1305, Administer over 2 Minutes, Cath (Intra-Procedure) 1002 (Given - Provid er: Cristina Parekh) documented in this encounter Care Teams Cone Treater Relationship Specialty Start Date End Date Jennifer Gallagher APRN [address] [place] [address] , [address] [place] [address] PCP - General Family Medicine 10/30/17 01/28/21 documented as of this encounter
--- OUTSIDE RECORDS SUMMARY | 2024-04-10 13:42 | XMS_ITS | Encounter Summary ---
Author Organization [facility] Address [facility] [place] [address] Care Team Providers Care Consumer Affairs Specialist Name Role Phone Kerry Villalobos APRN Primary Care Provider [phone] Reason for Visit * Consultation (Routine) - Closed Specialty Diagnoses / Procedures Referred By Clari dickey Referred To Contact Cardiology Diagnoses chest wall pain Jennifer Gallagher APRN [address] [place] [address] , [address] [address] Errol Méndez MD [facility] [place] [address] Referral ID Status Reason Start Date Expiration Date V isits Requested Visits Authorized [id number] Closed Consult, Test & Treat Connection Center 09/14/2017 09/14/2018 1 1 Encounter Details Date Type Department Care Team (Late st Contact Info) Description 10/25/2017 1:20 PM EST Office Visit Cardiology at [address] [address] Ede Naranjo MD [facility] [place] [address] Chest pain, unspecified type; Essential hypertension; MOISES (obstructive sleep apnea) Social History Tobacco Use Types Packs/Day Years Used Date Smoking Tobacco: Former Smokeless Tobacco: Never Sex and Gender Information Value Date Recorded Sex Assigned at Not on file Gender Identity Not on file Sexual Orientation Not on file documented as of this encounter Last Filed Vital Signs Vital Sign Reading Time Taken Comments Blood Pressure 128/95 10/25/2017 1:15 PM EST Pulse 83 10/25/2017 1:15 PM EST Temperature - - Respiratory Rate - - Oxygen Saturation 97% 10/25/2017 1:15 PM EST Inhaled Oxygen Concentration - - Weight 77.1 kg (170 lb) 10/25/2017 1:15 PM EST Height 154.9 cm (5' 1) 10/25/2017 1:15 PM EST Body Mass Index 32.12 10/25/2017 1:15 PM EST documented in this encounter Progress Notes * Ede Naranjo MD - 10/25/2017 1:20 PM EST Cardiology Clinic Note CC: Chest pain Patient Name: Agatha Yi HPI: Mrs. Yi is a pleasant 57 yr old woman with MOISES, HTN, HLD, and chronic chest pain here for evaluation of these symptoms. States that she is here for evaluation because I have pains in my chest. Describes an ache in the left side of her chest which she experience on and off all day long most days of the week. Symptoms first started about a year ago, but have noticeably worsened over the past couple of months. Can have pain at rest, but notes that pain is worse with physical exertion. Pain generally resolves within a couple minutes with rest. Has dyspnea associated with her chest discomfort; notes this symptom is becoming more frequent. Also notes more diaphoresis. Was seen by aCardiologist at [facility] this Fall who started her on ASA, statin, and BB. No change in sxs with these medications. Stopped metoprolol a couple weeks ago and noticed no difference since stopping this medication. Social Hx: - Lives in [place], [place] - Babysits her grand-daughter most days - Has 2 dogs; yellow lab and a rescue pit bull - Tobacco: Quit in 1984; 1 ppd x 10+ years - EtOH: None in 20+ yrs Family Hx: - Mother: CAD, CVAs - Father: [place] in 50s Patient Active Problem List Diagnosis Code ??? CIS - Arthritis ??? CIS - Asthma ??? CIS - Ectopic ??? CIS - Multiparous ??? CIS - Uterine leiomyoma Past Surgical History: Procedure Laterality Date ??? CREATED BY INTERFACE Knee surgery 1989 Procedure Date: 12/16/2008 ??? CREATED BY INTERFACE Tubal ligation 1974 Procedure Date: 12/16/2008 ??? GALLBLADDER SURGERY ??? HYSTERECTOMY Meds: Outpatient Prescriptions Marked as Taking for the 10/25/17 encounter (Office Visit) with Ede Naranjo MD Medication Sig Dispense Refill ??? aspirin 81 mg Tablet, Delayed Release [...] into the lungs 2 times daily. ??? citalopram (CELEXA) 10 mg Tablet Take 10 mg by mouth daily. 0 ??? topiramate (TOPAMAX) 50 mg Tablet Take 50 mg by mouth daily. 0 ??? SUMAtriptan (IMITREX) 50 mg Tablet Take 50 mg by mouth as needed. 0 ??? docusate sodium (COLACE) 250 mg capsule 250 MG = 1 Capsule(s) PO Once daily ??? citalopram (CELEXA) 20 mg tablet Social History Social History ??? Marital status: Spouse name: N/A ??? Number of children: N/A ??? Years of education: N/A Occupational History ??? Not on file. Social History Main Topics ??? Smoking status: Former Smoker ??? Smokeless tobacco: Never Used ??? Alcohol use Not on file ??? Drug use: No ??? Sexual activity: Not on file Other Topics Concern ??? Not on file Social History Narrative 24 HR Review of Systems: Constitutional: No fevers; chills or malaise Eyes: No visual disturbances ENT: No jaw pain; no difficulty swallowing or chewing, no mouth sores/mucositis Neck: No neck pain Cardiovascular: No Chest Pain; No palpitations Respiratory: No SOB; No ROCHA; No cough GI/Abdomen: No Diarrhea; No Constipation; No Nausea/Vomiting : No dysuria; no hematuria Extremities: No swelling; No calf tenderness; no bleeding Neuro: No headaches; No sensory deficits Vitals: Last value Range last 24 hrs Temperature Temp: -- Heart Rate Heart Rate: 83 Heart Rate: [83] Blood Pressure BP: (!) 128/95 BP: (128)/(95) Respiratory Rate Resp: -- SpO2 SpO2: 97 % SpO2: [97 %] Examination: CONST: Pleasant, Well-appearing NEURO: Oriented x3; no obvious deficits PSYCH: NAD, Normal mood HEENT: Non-icteric sclera MSK: Ambulates w/o difficulty CV: JVP not elevated; RRR, normal S1+S2, no murmurs PULM: CTAB GI: Soft, non-tender, non-distended, +BS EXTREMITIES: No lower extremity edema; 2+ Radial pulses bilaterally SKIN: No rashes Laboratory: No results for input(s): WBC, HGB, HCT, PLATELET in the last 168 hours. No results for input(s): NA, K, CL, CO2, BUN, CREATININE in the last 168 hours. No results for input(s): AST, ALT, ALKPHOS, BILITOT, BILIDIR in the last 168 hours. No results for input(s): CALCIUM, PHOS in the last 168 hours. EKG: NSR, HR-78 bpm, non-specific T wave abnormality Diagnostic Studies: Nuclear stress test ([facility], 06/2017) -Normal LV function, no wall motion abnormalities -Reversible perfusion defect (small size, mild intensity) evolving the anterior wall Holter monitor (2016) -2 brief episodes of SVT TTE (2011) -LVEF: 65%, no regional wall motion abnormalities -Normal RV function -Normal PA systolic pressure -No hemodynamically significant valve disease I have personally reviewed the above ECG & imaging studies ASSESSMENT: Mrs. Yi is a pleasant 57 yr old woman with MOISES, HTN, HLD with chronic chest pain and a recentabnormal nuclear stress test. I am meeting her for the first time today. She was previously seen bya cad intern at [facility] but was making little clinical progress on medical therapies and requested asecond opinion. Briefly, she has had somewhat atypical chest pain for the past year which has accelerated over the past couple of months. She has symptoms both with activity and at rest associated with dyspnea and occasional diaphoresis. She had a nuclear stress test earlier this year, which demonstrated ischemia involving the anterior wall. She has been treated with aspirin, rosuvastatin, and met oprolol, but has noticed no improvement in her symptoms. If anything, she thinks her symptoms are getting worse. She is here with her daughter today, we are hoping for some answers as well as a plan to help improve her symptoms. We discussed the pathophysiology, natural history, and nuances of treating chronic coronary disease. They would prefer to move forward with coronary angiography, which I have helped arrange. In the interim, I plan to add a long-acting nitrate to her medical regimen and have asked her to resume lisinopril, which she was previously taking for hypertension. PLAN: # ASCVD - Abnormal nuc stress at [facility] suggesting distal LAD disease - Persistent sxs, worse in the past month - Continue ASA, crestor, metoprolol - No change in sxs on metoprolol succ; prefers not to retry this - Will try Imdur 30 mg daily - Cardiac cath onT11/06 @ 8AM with Dr. Kirkpatrick # HTN - Resume lisinopril 2.5 mg daily # MOISES - Not treated; intolerant of CPAP -Suggested that we revisit this issue and retrial CPAP Ede Naranjo MD, FACP, FACC Section of Cardiovascular Medicine [facility] [employer] Managerpatient services representative [facility] documented in this encounter Plan of Treatment Upcoming Encounters Date Type Department Care Team (Late st Contact Info) Description 04/28/2024 1:40 PM EDT Office Visit Cardiology at [address] [phone] Cody Martinez MD [facility] [address] 05/27/2024 11:20 AM EDT Office Visit Dermatology at [facility] [address] [place] [address] 06/13/2024 9:00 AM EDT [place] [phone] Kelly Miller APRN [facility] [place] [address] 06/13/2024 10:00 AM EDT Laboratory Appointment Lab [address] [place] [phone] 06/13/2024 11:00 AM EDT Office [place] [phone] Kelly Miller APRN [facility] [place] [address] 10/22/2024 10:30 AM EST Office Visit [place] [phone] Marialuisa Peres MD [facility] [place] [address] documented as of this encounter Procedures Procedure Name Priority Date/Time Associated Diagnosis Comments CARDIAC CATHETERIZATION Routine 11/06/19 10:30 AM EST Chest pain, unspecified type EKG 12-LEAD Routine 10/25/2017 1:41 PM EST Chest pain, unspecified type documented in this encounter Results * CARDIAC CATHETERIZATION (11/06/2017 10:30 AM EST) Anatomical Region Laterality Modality Other Narrative 11/06/2017 10:42 AM EST ?[facility] ? Cardiac Catheterization/Intervention Report ? Patient Name: Anay Yiorah L. ? Procedure Date: 11/06/2017 ? A #: [id number] ? Primary Physician: Kirkpatrick, Michelet J ? Case #: [id number] ? File Name: [id number] ? Catheterization Order Number: [id number] ? [facility] ? Final Report [place], [place] ? Patient Name: ? Agatha L. Glodgett ?ID#: ?[id number] ? : ?1960 ? Procedure Date: ? November 06, 2017 ?Case #: ? [id number] ? Room: ? 1 ? Case Physician: ? Michelet Kirkpatrick M.D. ? Start: ?10:01 ?Fellow: ? Cristina Parekh M.D. ? Admission: ??11/06/2017 ? Procedures: ?* Coronary Angiography ?* Left Heart Catheterization ? History ?Agatha Yi is a 57 year old woman. She has hypertension and a ?family history of coronary artery disease. The patient has a history of ?smoking. She has hypercholesterolemia managed with lipid therapy. The ?patient has atypical symptoms for coronary artery disease and a history ?of chest pain. She has a history of dyspnea with NYHA functional class ?III. The patient has a history of an arrhythmia. She also has a history ?of an abnormal stress test. Prior to the initiation of this procedure, ?the patient was designated as ASA Class II. ? Patient Status at Catheterization: ?The patient presented with: symptom unlikely to be ischemic (w/i 14 ?days). [place] [employer] angina class was III. This patient ?was on beta blockers prior to the procedure. A SPECT stress test was ?performed and results were Positive and Low Risk ischemia assessment. The ?status of the diagnostic procedure was Elective. ? Technique: ?A 6 SLFr sheath was inserted in the right radial artery utilizing the ?Seldinger technique. The left coronary artery was injected utilizing a ?5Fr TIG 4.0 catheter. A 5Fr TIG 4.0 catheter was used to inject the right ?coronary artery. Left ventricular pressure was performed with a 5Fr ?Angled pigtail catheter. 5,000 units of heparin were administered. A ?total of 100cc of Omnipaque were opened, 40cc of Omnipaque were ?administered and 60cc of Omnipaque were wasted. Radiation: Fluoro time ?was 4.4 minutes, dose area product was 44,133 mGYcm2 and air kerma was ?831 mGY. ?The patient received the following medications prior to and during the ?procedure: Aspirin (any) and Unfractionated Heparin (any). ? Hemodynamics: ?Left Heart Pressures ? Resting: ? Syst Diast ? EDP ?a ?v ? m ?Ao 141 ?? 72 ?101 ?LV 140 ? 20 ? Coronary Angiography: ?Dominance: Right ?Left Main ? The left main was normal, free of disease. ?Left Anterior Descending ? There was mild diffuse (<=25% stenosis) disease of the mid segment ? of the left anterior descending artery (LAD). ??The LAD was large. ?Left Circumflex ? The left circumflex (LCX) was normal, free of disease. ?Right Coronary Artery ? There was mild diffuse (<=25% stenosis) disease of the entire vessel ? segment of the right coronary artery (RCA). ??The RCA was large. ? Vascular Access: ?Vascular Access Management: ? Mechanical Compression of the right radial artery access site was ? performed. ? Conclusions: ?* Nonobstructive coronary artery disease ?* Elevated left ventricular end diastolic pressure ? Complications/Events: ?The patient had no complications during these procedures. ? Recommendations: ?Based upon the results of this procedure, it was recommended that the ?patient be managed with medical therapy. ?The attending physician was present for the entire procedure. ?Dr. Michelet Kirkpatrick M.D. was present during the moderate sedation ?intraservice time as documented by the sedation nurse. ??Case time = 00:26. ?Dr. Michelet Kirkpatrick M.D. performed the coronary angiography and left ?heart catheterization. ? Michelet Kirkpatrick M.D. ? Electronically Signed by: Michelet Kirkpatrick M.D. ? Report Finalized: 11/06/2017 ??10:39 ? Procedure Note Michelet Kirkpatrick MD - 11/06/2017 [facility] Cardiac Catheterization/Intervention Report Patient Name: Agatha Yi Procedure Date: 11/06/2017 A #: [id number] Primary Physician: Michelet Kirkpatrick Case #: [id number] File Name: [id number] Catheterization Order Number: [id number] [facility] FinalReport [place], [place] Patient Name: Agatha Jovita Yi ID#:[id number] :1960 Procedure Date: November 06, 2017 Case #: [id number] Room: 1 Case Physician: Michelet Kirkpatrick M.D. Start: 10:01 Fellow: Cristina Parekh M.D. Admission:11/06/2017 Procedures: * Coronary Angiography * Left Heart Catheterization History Agatha Yi is a 57 year old woman. She has hypertension beverley family history of coronary artery disease. The patient has a historyof smoking. She has hypercholesterolemia managed with lipid therapy.The patient has atypical symptoms for coronary artery disease and ahistory of chest pain. She has a history of dyspnea with NYHA functionalclass III. The patient has a history of an arrhythmia. She also has ahistory of an abnormal stress test. Prior to the initiation of thisprocedure, the patient was designated as ASA Class II. Patient Status at Catheterization: The patient presented with: symptom unlikely to be ischemic (w/i 14 days). [place] [employer] angina class was III. Thispatient was on beta blockers prior to the procedure. A SPECT stress test was performed and results were Positive and Low Risk ischemiaassessment. The status of the diagnostic procedure was Elective. Technique: A 6 SLFr sheath was inserted in the right radial artery utilizingthe Seldinger technique. The left coronary artery was injected utilizinga 5Fr TIG 4.0 catheter. A 5Fr TIG 4.0 catheter was used to inject theright coronary artery. Left ventricular pressure was performed with a 5Fr Angled pigtail catheter. 5,000 units of heparin were administered. A total of 100cc of Omnipaque were opened, 40cc of Omnipaque were administered and 60cc of Omnipaque were wasted. Radiation: Fluorotime was 4.4 minutes, dose area product was 44,133 mGYcm2 and air kermawas 831 mGY. The patient received the following medications prior to and duringthe procedure: Aspirin (any) and Unfractionated Heparin (any). Hemodynamics: Left Heart Pressures Resting: Syst Diast EDP a v m Ao 141 72 101 LV 140 20 Coronary Angiography: Dominance: Right Left Main The left main was normal, free of disease. Left Anterior Descending There was mild diffuse (<=25% stenosis) disease of the midsegment of the left anterior descending artery (LAD). The LAD waslarge. Left Circumflex The left circumflex (LCX) was normal, free of disease. Right Coronary Artery There was mild diffuse (<=25% stenosis) disease of the entirevessel segment of the right coronary artery (RCA). The RCA was large. Vascular Access: Vascular Access Management: Mechanical Compression of the right radial artery access sitewas performed. Conclusions: * Nonobstructive coronary artery disease * Elevated left ventricular end diastolic pressure Complications/Events: The patient had no complications during these procedures. Recommendations: Based upon the results of this procedure, it was recommended thatthe patient be managed with medical therapy. The attending physician was present for the entire procedure. Dr. Michelet Kirkpatrick M.D. was present during the moderate sedation intraservice time as documented by the sedation nurse. Case time =00:26. Dr. Michelet Kirkpatrick M.D. performed the coronary angiography and left heart catheterization. Michelet Kirkpatrick M.D. Electronically Signed by: Michelet Kirkpatrick M.D. Report Finalized: 11/06/2017 10:39 Ede Naranjo MD CARDIAC CATH ORDER GORGE * EKG 12 Lead (10/25/2017 1:41 PM EST) Ventricular rate 78 BPM MUSE SYSTEM Atrial Rate 78 BPM MUSE SYSTEM P-R Interval 164 ms MUSE SYSTEM QRS Duration 74 ms MUSE SYSTEM Q-T Interval 370 ms MUSE SYSTEM QTC Calculated (Bezet) 421 ms MUSE SYSTEM Calculated P [place] 28 degrees MUSE SYSTEM Calculated R [place] -32 degrees MUSE SYSTEM Calculated T [place] 19 degrees MUSE SYSTEM INTERPRETATION Normal sinus rhythm Left axis deviation Nonspecific ST and T wave abnormality Abnormal ECG No previous ECGs available Confirmed by MD CARMEL, ERROL ([id number]) on 10/26/2017 3:05:51 PM MUSE SYSTEM 10/25/2017 1:41 PM EST 10/26/2017 3:05 PM EST Ede Naranjo MD ECG ORDERABLES [employer] SYSTEM documented in this encounter Visit Diagnoses Diagnosis Chest pain, unspecified type Essential hypertension Unspecified essential hypertension MOISES (obstructive sleep apnea) Obstructive sleep apnea (adult) (pediatric) Chest pain, unspecified type documented in this encounter Care Teams Consumer Affairs Specialist Relationship Specialty Start Date End Date Kerry Villalobos APRN [address] [place] [address] [place] [address] PCP - General 03/08/12 10/29/17 documented as of this encounter
--- OUTSIDE RECORDS SUMMARY | 2024-04-10 13:42 | XMS_ITS | Encounter Summary ---
Author Organization [facility] [place] [address] Care Team Providers Care Chlorine Cells Operator Name Role Phone Jennifer Gallagher BODY TECHNICIAN/PAINTER Primary Care Provider + Encounter Details Date Type Department Care Team (Late st Contact Info) Description 09/09/2019 Ancillary Procedure [place] [address] Kerry Ascencio PA [address] [place] [address] [place], [place] [id number] Social History Tobacco Use Types Packs/Day Years [...] 1:40 PM EDT Office Visit Cardiology at [address] [phone] Cody Martinez MD [facility] [place] [address] 05/27/2024 11:20 AM EDT Office Visit Dermatology at [facility] [address] [place] [phone] 06/13/2024 9:00 AM EDT Appointment [place] [phone] Kelly Miller APRN [facility] [place] [address] 06/13/2024 10:00 AM EDT Laboratory Appointment Lab [address] [place] [phone] 06/13/2024 11:00 AM EDT Office Visit [place] [phone] Kelly Miller BODY TECHNICIAN/PAINTER [facility] [place] [address] 10/22/2024 10:30 AM EST Office Visit Weight [place] [phone] Marialuisa Peres MD [facility] [place] [address] documented as of this encounter Procedures Procedure Name Priority Date/Time Associated Diagnosis Comments FILM LIBRARY STORAGE ONLY MR SHOULDER Routine 09/09/2019 12:00 AM EST documented in this encounter Results * Film Library- Storage Only MR Shoulder (09/09/2019 12:00 AM EST) Narrative [facility] - 08/23/2023 4:22 PM EST This exam is auto-finalizing. It's purpose is for storage only. Kerry MILLS IMFidelina FILM LIBRARY ORDERABLES [facility], [place] documented in this encounter Visit Diagnoses Not on filedocumented in this encounter Care Teams Chlorine Cells Operator Relationship Specialty Start Date End Date Jennifer Gallagher APRN [address] [place] [address] , [address] [place] [address] PCP - General Family Medicine 10/30/17 01/28/21 documented as of this encounter
--- OUTSIDE RECORDS SUMMARY | 2024-04-10 13:42 | XMS_ITS | Encounter Summary ---
Author Organization On License Of [facility] Address [facility] [place] [address] Care Team Providers Care High Man Name Role Phone Kerry Villalobos CLAIM INSPECTOR Primary Care Provider [phone] Encounter Details Date Type Department Care Team (Latest Contact Info) Description 05/04/2017 - 05/04/2017 11:59 PM EDT Hospital Encounter [place] [address] Karri Méndez MD [facility] [place] [address] Discharge Disposition: Home Social History Tobacco Use Types Packs/Day Years Used Date Smoking Tobacco: Former Sex and Gender Information Value Date Recorded Sex Assigned at Not on file Gender Identity Not on file Sexual Orientation Not on file documented as of this encounter Medications at Time of Discharge Medication Sig Dispensed Refills Start Date End Date cetirizine (ZYRTEC) 10 mg Tablet Take 10 [...] spacer citalopram (CELEXA) 20 mg tablet 07/19/2009 levocetirizine (XYZAL) 5 mg TabletIndications:Chron ic allergic rhinitis Take 1 tablet by mouth daily. 30 tablet 5 09/08/2016 10/25/2017 mometasone (NASONEX) 50 mcg/actuation [place], Non-Aerosol 2 sprays by Nasal route daily. 17 g 12 08/31/2016 04/11/2021 fluticasone-salmeterol (ADVAIR HFA) 115-21 mcg/actuation HFA Aerosol Inhaler Inhale 2 puffs into the lungs 2 times daily. 01/31/2022 citalopram (CELEXA) 10 mg Tablet Take 10 mg by mouth daily. 0 06/24/2016 02/02/2020 levothyroxine (SYNTHROID) 50 mcg Tablet Take 50 mcg by mouth daily. 0 06/05/2016 10/25/2017 lisinopril (PRINIVIL;ZESTRIL) 2.5 mg Tablet Take 2.5 mg by mouth daily. 0 05/26/2016 10/25/2017 topiramate (TOPAMAX) 50 mg Tablet Take 50 mg by mouth daily. 0 05/26/2016 12/20/2022 SUMAtriptan (IMITREX) 50 mg Tablet Take 50 mg by mouth as needed. 0 06/05/2016 12/20/2022 docusate sodium (COLACE) 250 mg capsule Take by mouth. 04/01/2010 triamcinolone (NASACORT AQ) 55 mcg nasal inhaler 07/19/2009 10/25/2017 acetaminophen (TYLENOL EXTRA STRENGTH) 500 mg tablet 07/19/2009 10/25/2017 lisinopril-hydrochlorot hiazide (PRINZIDE;ZESTORETIC) 10-12.5 mg per tablet 07/19/20092017 penciclovir (DENAVIR) 1 % cream 07/19/2009 10/25/2017 documented as of this encounter Plan of Treatment Upcoming Encounters Date Type Department Care Team (Late st Contact Info) Description 04/28/2024 1:40 PM EDT Office Visit Cardiology at [address] [phone] Cody Martinez MD [facility] [place] [address] 05/27/2024 11:20 AM EDT Office Visit Dermatology at [place] [address] [place] [phone] 06/13/2024 9:00 AM EDT [place] [address] Kelly Miller APRN [facility] [place] [address] 06/13/2024 10:00 AM EDT Laboratory Appointment Lab [address] [place] [address] 06/13/2024 11:00 AM EDT Office [place] [phone] Kelly Miller APRN [facility] [place] [address] 10/22/2024 10:30 AM EST Office Visit [place] [address] Marialuisa Peres MD [facility] [address] documented as of this encounter Procedures Procedure Name Priority Date/Time Associated Diagnosis Comments FILM LIBRARY STORAGE ONLY DX CHEST Routine 05/04/2017 12:00 AM EDT documented in this encounter Results * Film Library- Storage Only DX Chest (05/04/2017 12:00 AM EDT) Narrative [facility] - 09/13/2017 5:18 PM EST This exam is for storage only and is auto-finalizing. Karri Méndez MD IMG FILM LIBRARY ORD ERABLES [place], [place] documented in this encounter Visit Diagnoses Not on filedocumented in this encounter Care Teams High Man Relationship Specialty Start Date End Date Kerry Villalobos APRN [address] [place] [address] [place] [address] PCP - General 03/08/12 10/29/17 documented as of this encounter
--- OUTSIDE RECORDS SUMMARY | 2024-04-10 13:42 | XMS_ITS | Encounter Summary ---
Author Organization [facility] Address [facility] [address] Care Team Providers Care Pharmaceutical Botanist Name Role Phone Kerry Villalobos APRN Primary Care Provider [phone] Reason for Visit * Reason Comments Chest Pain Encounter Details Date Type Department Care Team (Late st Contact Info) Description 03/12/2012 9:45 AM EDT Office Visit [address] [address] Fabian Dunn MD [facility] [place] [address] Chest pain (Primary Dx) Social History Tobacco Use Types Packs/Day Years Used Date Smoking Tobacco: Never Assessed Sex and Gender Information Value Date Recorded Sex Assigned at Not on file Gender Identity Not on file Sexual Orientation Not on file documented as of this encounter Progress Notes * Ken [place] - 03/29/2012 3:14 PM EDT * Fabian Dunn - 03/12/2012 12:09 PM EDT Subjective: Patient ID: Agatha Yi is a 51 y.o. female. HPI ROS Objective: Physical Exam Assessment and Plan: No problem-specific visit notes found for this encounter. Scanned norte documented in this encounter Plan of Treatment Upcoming Encounters Date Type Department Care Team (Late st Contact Info) Description 04/28/2024 1:40 PM EDT Office Visit Cardiology at [address] [address] Cody Martinez MD [facility] [place] [address] 05/27/2024 11:20 AM EDT Office Visit Dermatology at [address] [phone] 06/13/2024 9:00 AM EDT Appointment [place] [address] Kelly Miller APRN [facility] [place] [address] 06/13/2024 10:00 AM EDT Laboratory Appointment Lab [address] [address] 06/13/2024 11:00 AM EDT Office Visit [place] [address] Kelly Miller APRN [facility] GASTROENTEROLOGY [place] [id number] 10/22/2024 10:30 AM EST Office Visit Weight [place] [address] Marialuisa Peres MD [facility] [place] [address] documented as of this encounter Visit Diagnoses Diagnosis Chest pain- Primary Chest pain, unspecified documented in this encounter Care Teams Pharmaceutical Botanist Relationship Specialty Start Date End Date Kerry Villalobos APRN [address] [place] [address] [place] [address] PCP - General 03/08/12 10/29/17 documented as of this encounter
--- OUTSIDE RECORDS SUMMARY | 2024-04-10 13:42 | XMS_ITS | Encounter Summary ---
Author Organization [facility] [place] [address] Care Team Providers Care Ticket Taker Ferryboat Name Role Phone Aristeo Collins MD Primary Care Provider [phone] Encounter Details Date Type Department Care Team (Late st Contact Info) Description 09/29/2011 Ancillary Procedure [place] [address] Kerry Ascencio PA [address] [place] [address] [address] [place], [place] [address] Social History Tobacco Use Types Packs/Day Years [...] PM EDT Office Visit Cardiology at [address] [address] Cody Martinez MD [facility] [place] [address] 05/27/2024 11:20 AM EDT Office Visit Dermatology at [facility] [address] [place] [address] 06/13/2024 9:00 AM EDT [place] [address] Kelly Miller APRN [facility] [place] [address] 06/13/2024 10:00 AM EDT Laboratory Appointment Lab [address] [place] [phone] 06/13/2024 11:00 AM EDT Office [place] [address] Kelly Miller CARDIAC EXERCISE PHYSIOLOGIST [facility] [place] [address] 10/22/2024 10:30 AM EST Office Visit [place] [phone] Marialuisa Peres MD [facility] [place] [address] documented as of this encounter Procedures Procedure Name Priority Date/Time Associated Diagnosis Comments FILM LIBRARY STORAGE ONLY MAMMO Routine 09/29/2011 12:00 AM EST documented in this encounter Results * Film Library- Storage Only Mammo (09/29/2011 12:00 AM EST) Narrative [facility] - 12/29/2021 9:54 AM EDT This exam is auto-finalizing. It's purpose is for storage only. Kerry MILLS IMFidelina FILM LIBRARY ORDERABLES [place], [place] documented in this encounter Visit Diagnoses Not on filedocumented in this encounter Care Teams Ticket Taker Ferryboat Relationship Specialty Start Date End Date Aristeo Collins MD [address] [place] [address] [place] [address] PCP - General 08/09/10 03/07/12 documented as of this encounter
--- OUTSIDE RECORDS SUMMARY | 2024-04-10 13:42 | XMS_ITS | Encounter Summary ---
Author Organization [facility] [place] [address] Care Team Providers Care Coal Trammer Name Role Phone Kerry Villalobos APRN Primary Care Provider [phone] Encounter Details Date Type Department Care Team (Late st Contact Info) Description 11/11/2015 Ancillary Procedure [place] [address] Kerry Ascencio PA [address] [place] [address] Social History Tobacco Use Types Packs/Day Years [...] PM EDT Office Visit Cardiology at [address] [address] Cody Martinez MD [facility] [place] [address] 05/27/2024 11:20 AM EDT Office Visit Dermatology at [facility] [address] [place] [address] 06/13/2024 9:00 AM EDT [place] [address] Kelly Miller APRN [facility] [place] [address] 06/13/2024 10:00 AM EDT Laboratory Appointment Lab [place] [phone] 06/13/2024 11:00 AM EDT Office [place] [phone] Kelly Miller MEDICAL AFFAIRS LEADER [facility] [place] [address] 10/22/2024 10:30 AM EST Office Visit [place] [phone] Marialuisa Peres MD [facility] [place] [address] documented as of this encounter Procedures Procedure Name Priority Date/Time Associated Diagnosis Comments FILM LIBRARY STORAGE ONLY MAMMO Routine 11/11/2015 12:00 AM EST documented in this encounter Results * Film Library- Storage Only Mammo (11/11/2015 12:00 AM EST) Narrative [facility] - 12/29/2021 9:52 AM EDT This exam is auto-finalizing. It's purpose is for storage only. Kerry MILLS IMFidelina FILM LIBRARY ORDERABLES [place], [place] documented in this encounter Visit Diagnoses Not on filedocumented in this encounter Care Teams Coal Trammer Relationship Specialty Start Date End Date Kerry Villalobos APRN [address] [place] [address] [place] [address] PCP - General 03/08/12 10/29/17 documented as of this encounter
--- OUTSIDE RECORDS SUMMARY | 2024-04-10 13:42 | XMS_ITS | Encounter Summary ---
Author Organization [facility] [place] [address] Care Team Providers Care Computer Systems Integrator Name Role Phone Kerry Villalobos APRN Primary Care Provider [phone] Encounter Details Date Type Department Care Team (Late st Contact Info) Description 10/26/2014 Ancillary Procedure [place] [address] Kerry Ascencio PA [address] [place] [address] Social History Tobacco Use Types Packs/Day Years [...] PM EDT Office Visit Cardiology at [address] [address] Cody Martinez MD [facility] [place] [address] 05/27/2024 11:20 AM EDT Office Visit Dermatology at [facility] [address] [place] [address] 06/13/2024 9:00 AM EDT [place] [address] Kelly Miller APRN [facility] [place] [address] 06/13/2024 10:00 AM EDT Laboratory Appointment Lab [place] [phone] 06/13/2024 11:00 AM EDT Office [place] [phone] Kelly Miller VULCANIZER OPERATOR [facility] [place] [address] 10/22/2024 10:30 AM EST Office Visit [place] [phone] Marialuisa Peres MD [facility] [place] [address] documented as of this encounter Procedures Procedure Name Priority Date/Time Associated Diagnosis Comments FILM LIBRARY STORAGE ONLY MAMMO Routine 10/26/2014 12:00 AM EST documented in this encounter Results * Film Library- Storage Only Mammo (10/26/2014 12:00 AM EST) Narrative [facility] - 12/29/2021 9:52 AM EDT This exam is auto-finalizing. It's purpose is for storage only. Kerry MILLS IMFidelina FILM LIBRARY ORDERABLES [place] documented in this encounter Visit Diagnoses Not on filedocumented in this encounter Care Teams Computer Systems Integrator Relationship Specialty Start Date End Date Kerry Villalobos APRN [address] [place] [address] [place] [address] PCP - General 03/08/12 10/29/17 documented as of this encounter
--- OUTSIDE RECORDS SUMMARY | 2024-04-10 13:42 | XMS_ITS | Encounter Summary ---
Author Organization [facility] Address [facility] [place] [address] Care Team Providers Care Evaporator Name Role Phone Jennifer Gallagher JU Primary Care Provider + Encounter Details Date Type Department Care Team (Late st Contact Info) Description 12/13/2017 3:00 PM EDT Office Visit Cardiology at [address] [address] Autumn Galvez PA [facility] [place] [address] Hypertension, unspecified type Social History Tobacco Use Types Packs/Day Years Used Date Smoking Tobacco: Former Smokeless Tobacco: Never Sex and Gender Information Value Date Recorded Sex Assigned at Not on file Gender Identity Not on file Sexual Orientation Not on file documented as of this encounter Last Filed Vital Signs Vital Sign Reading Time Taken Comments Blood Pressure 116/68 12/13/2017 2:50 PM EDT Pulse 75 12/13/2017 2:50 PM EDT Temperature - - Respiratory Rate - - Oxygen Saturation 96% 12/13/2017 2:50 PM EDT Inhaled Oxygen Concentration - - Weight 87.5 kg (193 lb) 12/13/2017 2:50 PM EDT Height - - Body Mass Index 36.47 11/06/2017 8:23 AM EST documented in this encounter Progress Notes * Autumn Galvez PA - 12/13/2017 3:00 PM EDT Images from the original note were not included. Former[facility] [place] [address] General Cardiology Follow Up Subjective: Patient ID: Agatha Yi is a 57 y.o. female. CC: Follow up of cardiac cath and discharge on 11/06/17 HPI: 57 y.o. female with past medical history ofLeft heart catheterization, coronary angiography. She has a history of MOISES, HTN, HLD and chronic chest pain who presented for elective cardiac catheterization after worsening chest pain and abnormal MPI. ?? Hospital Course: After obtaining informed consent, cardiac catheterization was performed via the right radial arteryusing 5 Fr catheters. Hemostasis was obtained with mechanical compression. The procedure was well tolerated and there were no complications. The findings (see cath) were reviewed with Ms. Yi and her as well as with Dr. Naranjo. Plans are for continued medical therapy and lifestyle mod ification. After observation and ambulation in [facility] Day [facility], Ms. Yi was discharged. She was discharged on her usual medications. Cardiology follow- up will continue with Dr. Naranjo. ?? Findings: 1. Nonobstructive coronary artery disease. 2. Elevated left ventricular end diastolic pressure (LV = 140/20 mmHg). INTERIM: No ED visits or hospitalizations. TODAY: She denies any chest pain, shortness of breath, palpitations, near- syncope, or syncopal events. She has some chest pain at times that is 5/10 lasting only a minute at a time. She may have it at rest. Otherwise no long lasting episodes. She has not had to take any nitro. She will have shoulder surgery in [facility] on January [address] Naranjo in 6 months from now. Patient Active Problem List Diagnosis ??? CIS - Arthritis ??? CIS - Asthma ??? CIS - Ectopic ??? CIS - Multiparous ??? CIS - Uterine leiomyoma ROS: Constitutional: - fatigue, - fever, - chills Respiratory: - shortness of breath, - cough, - apnea, - wheezing Cardiovascular: - chest pain, - palpitations, - unusual rates Gastrointestinal: - nausea, - vomiting, - abdominal pain, - diarrhea Neurological: - lightheadedness, - dizziness, - syncope, - weakness Psychiatric: - anxious Right shoulder pain - takes vicodin for this Medications: Current Outpatient Prescriptions Medication Sig Dispense Refill ??? lisinopril (PRINIVIL;ZESTRIL) 2.5 mg Tablet Take [...] daily ??? citalopram (CELEXA) 20 mg tablet ??? mometasone (NASONEX) 50 mcg/actuation [place], Non-Aerosol 2 sprays by Nasal route daily. (Patient not taking: Reported on 12/13/2017) 17 g 12 Objective: Vitals: Vitals: 12/13/17 1450 BP: 116/68 Pulse: 75 SpO2: 96% Weight: 87.5 kg (193 lb) Physical Exam: General- No acute distress, sitting comfortably in exam room chair HEENT- Head atraumatic, normocephalic Skin- Warm, dry, and intact Neck- No JVD noted Cardiovascular- S1/S2 regular rate and rhythm. No murmur, rub or gallop Lungs- Clear to auscultation bilaterally Extremities- Pulses equal bilaterally. No edema noted Neuro- A&Ox3 Right shoulder pain - awaiting surgery 01/08/18 Diagnostics: EKG: NSR, HR-78 bpm, non-specific T wave abnormality ?? Diagnostic Studies: ?? Nuclear stress test ([facility], 06/2017) -Normal LV function, no wall motion abnormalities -Reversible perfusion defect (small size, mild intensity) evolving the anterior wall ?? Holter monitor (2016) -2 brief episodes of SVT ?? TTE (2011) -LVEF: 65%, no regional wall motion abnormalities -Normal RV function -Normal PA systolic pressure -No hemodynamically significant valve disease Assessment and Plan: 57 y.o. with medical history significant for Left heart catheterization, coronary angiography, hx of MOISES, HTN, HLD and chronic chest pain who presents for elective cardiac catheterization after worsening chest pain and abnormal MPI. She was found to have nonobstructive coronary artery disease. Elevated left ventricular end diastolic pressure (LV = 140/20 mmHg). Awaiting surgery January 08 in [facility]. She will be fine for this surgery. Case discussed with Dr. Naranjo. Patient to RTC in 6 months to see him. She is stable at this time. Plan: 1. Non-obstructive CAD Continue lisinopril, crestor and asa lumps and bumps seen on cath No changes in medications at this time No metoprolol and no imdur now She did not tolerate metoprolol 2. MOISES Consider sleep study as an out patient Patient to check with her family doctor 3. HTN Her SBP was 116/68 HR 75 4. Dyslipidemia Continue crestor 5. Torn rotator cuff on right Operation is going to be in [facility] January 08, 2018 6. Obesity Body mass index is 36.47 kg/(m^2). Diet and exercise addressed Patient to follow mediterranean diet Patient to see Ortho on January 08. Patient to see Dr. Naranjo in follow-up in [address] Naranjo. GENE Salas 12/13/2017 Pager [phone] General Cardiology 12/13/2017 There are no Patient Instructions on file for this visit. documented in this encounter Plan of Treatment Upcoming Encounters Date Type Department Care Team (Late st Contact Info) Description 04/28/2024 1:40 PM EDT Office Visit Cardiology at [address] [phone] Cody Martinez MD [facility] [place] [address] 05/27/2024 11:20 AM EDT Office Visit Dermatology at [address] [address] 06/13/2024 9:00 AM EDT Appointment [place] [address] Kelly Miller WINDOWS SUPPORT ENGINEER [facility] [place] [address] 06/13/2024 10:00 AM EDT Laboratory Appointment Lab [address] [place] [address] 06/13/2024 11:00 AM EDT Office Visit [place] [address] Kelly Miller APRN [facility] [place] [address] 10/22/2024 10:30 AM EST Office Visit Weight [place] [address] Marialuisa Peres MD [facility] [place] [address] documented as of this encounter Visit Diagnoses Diagnosis Hypertension, unspecified type documented in this encounter Care Teams Evaporator Relationship Specialty Start Date End Date Jennifer Gallagher APRN [address] [place] [address] , [address] [place] [address] PCP - General Family Medicine 10/30/17 01/28/21 documented as of this encounter
--- OUTSIDE RECORDS SUMMARY | 2024-04-10 13:42 | XMS_ITS | Encounter Summary ---
Author Organization [facility] [place] [address] Care Team Providers Care Radiology Rn Name Role Phone Aristeo Collins MD Primary Care Provider [phone] Encounter Details Date Type Department Care Team (Late st Contact Info) Description 09/28/2011 Ancillary Procedure [place] [address] Kerry Ascencio PA [address] [place] [address] [address] [place], [place] [address] Social History Tobacco Use Types Packs/Day Years [...] PM EDT Office Visit Cardiology at [address] [address] Cody Martinez MD [facility] [place] [address] 05/27/2024 11:20 AM EDT Office Visit Dermatology at [facility] [address] [place] [address] 06/13/2024 9:00 AM EDT [place] [address] Kelly Miller APRN [facility] [place] [address] 06/13/2024 10:00 AM EDT Laboratory Appointment Lab [address] [place] [phone] 06/13/2024 11:00 AM EDT Office [place] [address] Kelly Miller NURSING HOME ADMINISTRATOR [facility] [place] [address] 10/22/2024 10:30 AM EST Office Visit [place] [phone] Marialuisa Peres MD [facility] [place] [address] documented as of this encounter Procedures Procedure Name Priority Date/Time Associated Diagnosis Comments FILM LIBRARY STORAGE ONLY MAMMO Routine 09/28/2011 12:00 AM EST documented in this encounter Results * Film Library- Storage Only Mammo (09/28/2011 12:00 AM EST) Narrative [facility] - 12/29/2021 9:55 AM EDT This exam is auto-finalizing. It's purpose is for storage only. Kerry MILLS IMFidelina FILM LIBRARY ORDERABLES [place], [place] documented in this encounter Visit Diagnoses Not on filedocumented in this encounter Care Teams Radiology Rn Relationship Specialty Start Date End Date Aristeo Collins MD [address] [place] [address] [place] [address] PCP - General 08/09/10 03/07/12 documented as of this encounter
--- OUTSIDE RECORDS SUMMARY | 2024-04-10 13:42 | XMS_ITS | Encounter Summary ---
Author Organization [facility] [place] [address] Care Team Providers Care Metal Casket Maker Name Role Phone Jennifer Gallagher JU Primary Care Provider + Encounter Details Date Type Department Care Team (Late st Contact Info) Description 07/29/2020 Ancillary Procedure [place] [address] Kerry Ascencio PA [address] [place] [address] [place], [place] [id number] Social History Tobacco Use Types Packs/Day Years [...] 1:40 PM EDT Office Visit Cardiology at [address] [address] Cody Martinez MD [facility] [place] [address] 05/27/2024 11:20 AM EDT Office Visit Dermatology at [facility] [address] [place] [phone] 06/13/2024 9:00 AM EDT [place] [address] Kelly Miller APRN [facility] [place] [address] 06/13/2024 10:00 AM EDT Laboratory Appointment Lab [address] [place] [phone] 06/13/2024 11:00 AM EDT Office [place] [phone] Kelly Miller AIRCRAFT ENGINE MECHANIC OVERHAUL [facility] [place] [address] 10/22/2024 10:30 AM EST Office Visit [place] [phone] Marialuisa Peres MD [facility] [place] [address] documented as of this encounter Procedures Procedure Name Priority Date/Time Associated Diagnosis Comments FILM LIBRARY STORAGE ONLY MR SHOULDER Routine 07/29/2020 12:00 AM EST documented in this encounter Results * Film Library- Storage Only MR Shoulder (07/29/2020 12:00 AM EST) Narrative [facility] - 08/23/2023 4:23 PM EST This exam is auto-finalizing. It's purpose is for storage only. Kerry MILLS IMFidelina FILM LIBRARY ORDERABLES [place], [place] documented in this encounter Visit Diagnoses Not on filedocumented in this encounter Care Teams Metal Casket Maker Relationship Specialty Start Date End Date Jennifer Gallagher APRN [address] [place] [address] , [address] [address] [place] [address] PCP - General Family Medicine 10/30/17 01/28/21 documented as of this encounter
--- OUTSIDE RECORDS SUMMARY | 2024-04-10 13:42 | XMS_ITS | Encounter Summary ---
Author Organization [facility] [place] [address] Care Team Providers Care Inspector Rag Sorting Name Role Phone Jennifer Gallagher JU Primary Care Provider + Reason for Visit * Auth/Cert Specialty Diagnoses / Procedures Referred By Clari dickey Referred To Contact Diagnoses Chest pain, unspecified type [R07.9] Procedures CARDIAC CATHETERIZATION Referral ID Status Reason Start Date Expiration Date Visits Re quested Visits Authorized [id number] 1 1 Encounter Details Date Type Department Care Team (Late st Contact Info) Description 11/06/2017 9:00 AM EST - 11/06/2017 10:00 AM EST Surgery [place] [address] Michelet Kirkpatrick MD [facility] [place] [address] CARDIAC CATHETERIZATION Social History Tobacco Use Types Packs/Day Years Used Date Smoking Tobacco: Former Smokeless Tobacco: Never Sex and Gender Information Value Date Recorded Sex Assigned at Not on file Gender Identity Not on file Sexual Orientation Not on file documented as of this encounter Last Filed Vital Signs Vital Sign Reading Time Taken Comments Blood Pressure 124/80 11/06/2017 8:23 AM EST Pulse 64 11/06/2017 8:23 AM EST Temperature 36.4 ??C (97.5 ??F) 11/06/2017 8:23 AM ES T Respiratory Rate 20 11/06/2017 8:23 AM EST Oxygen Saturation 97% 11/06/2017 8:23 AM EST Inhaled Oxygen Concentration - - Weight 77.1 kg (170 lb) 11/06/2017 8:23 AM EST Height 154.9 cm (5' 1) 11/06/2017 8:23 AM EST Body Mass Index 32.12 11/06/2017 8:23 AM EST documented in this encounter Discharge Summaries * Michelet Kirkpatrick MD - 11/06/2017 11:05 AM EST [facility] SAME DAY DISCHARGE SUMMARY Agatha Yi [id number] 11/06/2017 Primary Care Provider: Jennifer Gallagher APRN Referring Corporate Concierge: Ede Naranjo MD Procedures: Left heart catheterization, [...] end diastolic pressure (LV = 140/20 mmHg). Michelet Kirkpatrick MD, [facility] Staff Corporate Concierge 11/06/2017 documented in this encounter Discharge Instructions * Patient Instructions* Cristina Parekh Gavin - 11/06/2017 10:42 AM EST Cardiology Instructions Call your doctor if: Chest pain, dyspnea, pain or swelling in legs occurs. If you have non-emergent questions between now and the time of your follow up appointments: -During 8am-5pm Sunday through Sunday call [phone] to speak with a nurse in the cardiology clinic -All other times call [phone] and ask to speak to the department coordinator teamcenter consultant. MEDICATIONS - Please discuss with Dr. Naranjo [...] Primary care provider: Cardiology: Jennifer Gallagher APRN [phone] Follow up as planned or as needed. Dr. Naranjo [phone] Call for follow up appointment 2weeks-1month following catherization. * Attachments The following attachments cannot be sent through Care Everywhere. * CORONARY ANGIOGRAM: POST-OP (ROMANIAN) documented in this encounter Medications at Time [...] for Pain. 02/02/2020 mometasone (NASONEX) 50 mcg/actuation [place], Non-Aerosol 2 sprays by Nasal route daily. [...] Pre-Procedural H&P Patient Name: Agatha Yi : [id number] y.o. MR#: [id number] Chief Complaint: chest pain Planned Procedure: LHC [...] 1:40 PM EDT Office Visit Cardiology at [address] [phone] Cody Martinez MD [facility] [address] 05/27/2024 11:20 AM EDT Office Visit Dermatology at [facility] [address] [place] [address] 06/13/2024 9:00 AM EDT Appointment [place] [address] Kelly Miller, SECOND OPERATOR [facility] [place] [address] 06/13/2024 10:00 AM EDT Laboratory Appointment Lab [address] [place] [phone] 06/13/2024 11:00 AM EDT Office Visit Gastroenterology at [place] [phone] Kelly Miller APRN [facility] [place] [address] 10/22/2024 10:30 AM EST Office Visit Weight and [place] [phone] Marialuisa Peres MD [facility] [place] [address] documented as of this encounter Procedures Procedure [...] (Bezet) 444 ms MUSE SYSTEM Calculated P [place] 20 degrees MUSE SYSTEM Calculated R [place] -19 degrees MUSE SYSTEM Calculated T [place] 7 degrees MUSE SYSTEM INTERPRETATION Normal sinus [...] 7:59 AM EST) Neutrophils % 56.2 % [facility] Neutr Abs (ANC) 3.41 1.70 - 6.10 x10(3)/[facility] Lymphocytes % 31.7 % [facility] Lymphocytes Abs 1.9 0.9 - 3.2 x10(3)/[facility] Monocytes % 8.1 % [facility] Monocyte Abs 0.5 0.3 - 0.9 x10(3)/[facility] Eosinophils % 2.6 % [facility] Eosinophils Abs 0.2 0.0 - 0.4 x10(3)/[facility] Basophils % 1.2 % [facility] Basophils Abs 0.1 0.0 - 0.1 x10(3)/[facility] Immature Gran % 0.20 % [facility] Comment: Immature granulocytes(IG's)percentage and absolute count will include metamyelocytes, myelocytes, and promyelocytes. Blood smears from CBCs yielding IG's will be scanned manually for concordance. If this scan disagrees with the automated IG or if promyelocytes are noted, a manual differential will be performed. Larissa Gran Abs 0.01 0.00 - 0.04 x10(3)/[facility] Blood specimen (specimen) 11/06/2017 7:59 AM EST 11/06/2017 8:18 AM EST Narrative Resulting Agency Comment Spec In Lab Ede Naranjo MD HEMATOLOGY ORDERAB LES Performing Organization Address City/[facility]/ZIP Co de Phone Number [facility] [place] [address] * (ABNORMAL) Hemogram (11/06/2017 7:59 AM EST) WBC 6.1 4.0 - 9.5 x10(3)/[facility] RBC 4.59 4.00 - 5.21 x10(6)/[facility] Hemoglobin 14.4 11.7 - 15.5 gm/dL [facility] Hematocrit 43.0 35.7 - 45.8 % [facility] MCV 93.7 82.6 - 94.4 [facility] MCH 31.4 27.1 - 32.0 pg [facility] MCHC 33.5 31.7 - 35.0 gm/dL [facility] Platelets 206 145 - 357 x10(3)/[facility] RDWSD 47.4(H) 37.0 - 46.0 [facility] RDWCV 13.8 11.5 - 14.1 % [facility] MPV 12.0 7.6 - 12.9 [facility] nRBC % Auto 0.0 % [facility] nRBC Abs Auto 0.000 0.000 - 0.000 x10(3)/[facility] Blood specimen (specimen) 11/06/2017 7:59 AM EST 11/06/2017 8:18 AM EST Narrative Resulting Agency Comment Spec In Lab Ede Naranjo MD HEMATOLOGY ORDERAB LES Performing Organization Address City/[facility]/ZIP Co de Phone Number [facility] [place] [address] * (ABNORMAL) BMP w/fasting Glucose (11/06/2017 7:59 AM EST) [facility] Signature Glucose Fasting 103(H) 65 - 99 mg/dL [facility] Comment: ?Fasting* Glucose Interpretive Criteria [...] of Diabetes Mellitus, Position Statement from the [place] [employer]. ??Diabetes Care, Volume 33, Supplement 1, Sep 2009 BUN 9 8 - 18 mg/dL [facility] Creatinine 0.89 0.70 - 1.20 mg/dL [facility] Sodium 143 135 - 145 mmol/L [facility] Potassium 4.5 3.5 - 5.0 mmol/L [facility] Comment: Please note: ??Patients with WBC >100,000 may have falsely elevated Potassium levels. ??For accurate Potassium quantification in these patients send serum separator tube (gold top) for subsequent determinations. ??Contact the Clinical Chemistry Laboratory if there are any questions. Chloride 105 98 - 107 mmol/L [facility] CO2 26 22 - 31 mmol/L [facility] Anion Gap 12 5 - 15 mmol/L [facility] Calcium 9.4 8.5 - 10.5 mg/dL [facility] Estimated GFR >60 >=60 [facility] Comment: The reported eGFR should be multiplied by 1.2 for patients. The MDRD is not an appropriate measure of renal function for patients with body mass extremes or in patients with acute kidney failure. http://[employer]DHnkdep http://[employer]DHMCnkf Blood specimen (specimen) 11/06/2017 7:59 AM EST 11/06/2017 8:18 AM EST Narrative Resulting Agency Comment Spec In Lab Ede Naranjo MD CHEMISTRY ORDERABL ES Performing Organization Address [facility] Phone Number [facility] [place] [address] * Prothrombin Time (11/06/2017 7:59 AM EST) PT 12.8 11.8 - 14.0 sec [facility] INR 1.0 0.9 - 1.1 [facility] Comment: An INR <2.0 indicates [...] MD HEMATOLOGY ORDERAB LES Performing Organization Address [facility] Phone Number [facility] [place] [address] documented in this encounter Visit Diagnoses Diagnosis Chest pain, unspecified type Chest pain, unspecified type documented in this encounter Administered Medications Inactive Administered Medications - up to 3 most recent administrations Medication Order MAR Action Action Date Dose Rate Site fentaNYL 50 mcg/mL multi-dose injection ONCE PRN, Starting on Sun11/06/17 at 0949, Until Sun11/06/17 at 1305, Intra-Operative (Intra-Procedure), Routine Given 11/06/2017 9:49 AM EST 12.5 mcg heparin (porcine) injection ONCE PRN, Starting on Sun11/06/17 at 1005, Until Sun11/06/17 at 1305, Cath (Intra-Procedure), Routine Given 11/06/2017 10:05 AM EST 5,000 Units lidocaine (XYLOCAINE) 10 mg/mL (1 %) injection 3 mg 3 mg (0.3 mL), Subcutaneous, ONCE PRN, 1 dose, Starting on Sun11/06/17 at 0813, Until Sun11/06/17 at 0910, with discomfort with PIV insertion, Cath (Day of Procedure), Routine Given 11/06/2017 9:10 AM EST 3 mg midazolam (PF) (VERSED) 1 mg/mL multi-dose injection ONCE PRN, Starting on Sun11/06/17 at 0948, Until Sun11/06/17 at 1305, Cath (Intra-Procedure), Routine Given 11/06/2017 9:48 AM EST 0.5 mg nitroGLYcerin 100 mcg/mL intracoronary dilution ONCE PRN, Starting on Sun11/06/17 at 1002, Until Sun11/06/17 at 1305, Cath (Intra-Procedure), Routine Given 11/06/2017 10:02 AM EST 150 mcg sodium chloride 0.9% infusion 200 mL/hr, Intravenous, CONTINUOUS, Starting on Sun11/06/17 at 0830, Until Sun11/06/17 at 1305, Cath (Day of Procedure) New Bag 11/06/2017 9:15 AM EST 200 mL/hr 200 mL/hr sodium chloride 0.9% infusion 100 mL/hr, Intravenous, CONTINUOUS, Starting on Sun11/06/17 at 1100, Until Sun11/06/17 at 1259, Recovery (Recovery-Hospital Unit) New Bag 11/06/2017 10:50 AM EST 100 mL/hr 100 mL/hr verapamil (ISOPTIN) injection ONCE PRN, Starting on Sun11/06/17 at 1002, Until Sun11/06/17 at 1305, Administer over 2 Minutes, Cath (Intra-Procedure) Given 11/06/2017 10:02 AM EST 2.5 mg documented in this encounter Active and Recently Administered Medications Times are shown in EST. Continuous Medication Order 11/04/2017 11/05/2017 11/06/2017 sodium chloride 0.9% infusion (CANCELED) 200 mL/hr, Intravenous, CONTINUOUS, Starting on Sun11/06/17 at 0830, Until Sun11/06/17 at 1305, Cath (Day of Procedure) 0830 (Due)0915 (New Bag - Provider: Ede Jon, RN) sodium chloride 0.9% infusion 100 mL/hr, Intravenous, CONTINUOUS, Starting on Sun11/06/17 at 1100, Until Sun11/06/17 at 1259, Recovery (Recovery-Hospital Unit) 1050 (New Bag - Prov ider: Brenna Velarde RN) PRN Medication Order 11/04/2017 11/05/2017 11/06/2017 fentaNYL 50 mcg/mL multi-dose injection (CANCELED) ONCE PRN, Starting on Sun11/06/17 at 0949, Until 11/06/17 at 1305, Intra-Operative (Intra-Procedure), Routine 0949 (Given - Provid er: Chanelle Mckinney RN) heparin (porcine) injection (CANCELED) ONCE PRN, Starting on Sun11/06/17 at 1005, Until 11/06/17 at 1305, Cath (Intra-Procedure), Routine 1005 (Given - Provid er: Chanelle Mckinney RN) lidocaine (XYLOCAINE) 10 mg/mL (1 %) injection 3 mg (COMPLETED) 3 mg (0.3 mL), Subcutaneous, ONCE PRN, 1 dose, Starting on Sun11/06/17 at 0813, Until e 11/06/17 at 0910, with discomfort with PIV insertion, Cath (Day of Procedure), Routine 0910 (Given - Provid er: Ede Jon RN) midazolam (PF) (VERSED) 1 mg/mL multi-dose injection (CANCELED) ONCE PRN, Starting on Sun11/06/17 at 0948, Until 11/06/17 at 1305, Cath (Intra-Procedure), Routine 0948 (Given - Provid er: Chanelel Mckinney RN) nitroGLYcerin (NITROSTAT) SL tablet 0.4 [...] intracoronary dilution (CANCELED) ONCE PRN, Starting on Sun11/06/17 at 1002, Until Sun11/06/17 at 1305, Cath (Intra-Procedure), Routine 1002 (Given - Provid er: Cristina Parekh) verapamil (ISOPTIN) injection (CANCELED) ONCE PRN, Starting on Sun11/06/17 at 1002, Until Sun11/06/17 at 1305, Administer over 2 Minutes, Cath (Intra-Procedure) 1002 (Given - Provid er: Cristina Parekh) documented in this encounter Care Teams Inspector Rag Sorting Relationship Specialty Start Date End Date Jennifer Gallagher APRN [address] [place] [address] , [facility] [address] [place] [address] PCP - General Family Medicine 10/30/17 01/28/21 documented as of this encounter
--- OUTSIDE RECORDS SUMMARY | 2024-04-10 13:42 | XMS_ITS | Encounter Summary ---
Author Organization [facility] Address [facility] [place] [address] Care Team Providers Care Cost Clerk Name Role Phone Kerry Villalobos APRN Primary Care Provider [phone] Reason for Visit * Reason Onset Date Comments Medication Refill 08/30/2016 Encounter Details Date Type Department Care Team (Late st Contact Info) Description 08/30/2016 [place] [address] Kitty Cervantes MD [facility] [place] [address] Social History Tobacco Use Types Packs/Day Years [...] PM EDT Office Visit Cardiology at [address] [address] Cody Martinez MD [facility] [place] [address] 05/27/2024 11:20 AM EDT Office Visit Dermatology at [facility] [address] [place] [phone] 06/13/2024 9:00 AM EDT Appointment Ultrasound at [place] [phone] Kelly Miller APRN [facility] [place] [address] 06/13/2024 10:00 AM EDT Laboratory Appointment Lab [address] [place] [phone] 06/13/2024 11:00 AM EDT Office Visit Gastroenterology at [place] [phone] Kelly Miller ORNAMENT MAKER HAND [facility] GASTROENTEROLOGY [place] [id number] 10/22/2024 10:30 AM EST Office Visit [place] [phone] Marialuisa Peres MD [facility] [place] [address] documented as of this encounter Visit Diagnoses Not on filedocumented in this encounter Care Teams Cost Clerk Relationship Specialty Start Date End Date Kerry Villalobos APRN [address] [place] [address] [place] [address] PCP - General 03/08/12 10/29/17 documented as of this encounter
--- OUTSIDE RECORDS SUMMARY | 2024-04-10 13:42 | XMS_ITS | Encounter Summary ---
Author Organization [facility] [place] [address] Care Team Providers Care Sommelier Name Role Phone Jennifer Gallagher JU Primary Care Provider + Encounter Details Date Type Department Care Team (Late st Contact Info) Description 12/18/2018 Orders Only Cardiology at [address] [address] Cody Martinez MD [facility] [address] [place] [address] Chest pain, unspecified type (Primary Dx); Hypertension, unspecified type; Encounter for pre-operative cardiovascular clearance Social History Tobacco Use Types Packs/Day Years [...] PM EDT Office Visit Cardiology at [address] [phone] Cody Martinez MD [facility] [place] [address] 05/27/2024 11:20 AM EDT Office Visit Dermatology at [facility] [address] [place] [address] 06/13/2024 9:00 AM EDT [place] [phone] Kelly Miller APRN [facility] [place] [address] 06/13/2024 10:00 AM EDT Laboratory Appointment Lab [address] [place] [phone] 06/13/2024 11:00 AM EDT Office [place] [phone] Kelly Miller APRN [facility] [place] [address] 10/22/2024 10:30 AM EST Office Visit [place] [phone] Marialuisa Peres MD [facility] [place] [address] documented as of this encounter Results * EKG 12 Lead (12/19/2018 2:38 PM EDT) Ventricular rate 77 BPM MUSE SYSTEM Atrial Rate 77 BPM MUSE SYSTEM P-R Interval 164 ms MUSE SYSTEM QRS Duration 74 ms MUSE SYSTEM Q-T Interval 398 ms MUSE SYSTEM QTC Calculated (Bezet) 450 ms MUSE SYSTEM Calculated P [place] 34 degrees MUSE SYSTEM Calculated R [place] -18 degrees MUSE SYSTEM Calculated T [place] 36 degrees MUSE SYSTEM INTERPRETATION Normal sinus [...] PM EDT Cody Martinez MD ECG ORDERABLES [employer] documented in this encounter Visit Diagnoses Diagnosis Chest pain, unspecified type- Primary Hypertension, unspecified type Encounter for pre-operative cardiovascular clearance Pre-operative cardiovascular examination documented in this encounter Care Teams Sommelier Relationship Specialty Start Date End Date Jennifer Gallagher APRN [address] [place] [address] , [address] [place] [address] PCP - General Family Medicine 10/30/17 01/28/21 documented as of this encounter
--- OUTSIDE RECORDS SUMMARY | 2024-04-10 13:42 | XMS_ITS | Encounter Summary ---
Author Organization [facility] [place] [address] Care Team Providers Care Ritual Circumciser Name Role Phone Kerry Villalobos APRN Primary Care Provider [phone] Encounter Details Date Type Department Care Team (Late st Contact Info) Description 10/04/2012 Ancillary Procedure [place] [address] Kerry Ascencio PA [address] [place] [phone] Social History Tobacco Use Types Packs/Day Years [...] PM EDT Office Visit Cardiology at [address] [address] Cody Martinez MD [facility] [place] [address] 05/27/2024 11:20 AM EDT Office Visit Dermatology at [facility] [address] [place] [address] 06/13/2024 9:00 AM EDT [place] [address] Kelly Miller APRN [facility] [place] [address] 06/13/2024 10:00 AM EDT Laboratory Appointment Lab [address] [phone] 06/13/2024 11:00 AM EDT Office [place] [phone] Kelly Miller RIM FIRE PRIMING TOOL SETTER [facility] [place] [address] 10/22/2024 10:30 AM EST Office Visit [place] [phone] Marialuisa Peres MD [facility] [place] [address] documented as of this encounter Procedures Procedure Name Priority Date/Time Associated Diagnosis Comments FILM LIBRARY STORAGE ONLY MAMMO Routine 10/04/2012 12:00 AM EST documented in this encounter Results * Film Library- Storage Only Mammo (10/04/2012 12:00 AM EST) Narrative [facility] - 12/29/2021 9:54 AM EDT This exam is auto-finalizing. It's purpose is for storage only. Kerry MILLS IMFidelina FILM LIBRARY ORDERABLES [place], [place] documented in this encounter Visit Diagnoses Not on filedocumented in this encounter Care Teams Ritual Circumciser Relationship Specialty Start Date End Date Kerry Villalobos APRN [address] [place] [address] [place] [address] PCP - General 03/08/12 10/29/17 documented as of this encounter
--- OUTSIDE RECORDS SUMMARY | 2024-04-10 13:42 | XMS_ITS | Encounter Summary ---
Author Organization Formerly [facility] Address [facility] [place] [address] Care Team Providers Care Educational Fundraising Director Name Role Phone Jennifer Gallagher JU Primary Care Provider + Encounter Details Date Type Department Care Team (Late st Contact Info) Description 12/01/2019 Orders Only Cardiology at [address] [phone] Cody Martinez MD [facility] [place] [address] ASCVD (arteriosclerotic cardiovascular disease) (Primary Dx) Social [...] PM EDT Office Visit Cardiology at [address] [phone] Cody Martinez MD [facility] [place] [address] 05/27/2024 11:20 AM EDT Office Visit Dermatology at [facility] [address] [place] [phone] 06/13/2024 9:00 AM EDT [place] [phone] Kelly Miller APRN [facility] [place] [address] 06/13/2024 10:00 AM EDT Laboratory Appointment Lab [address] [place] [phone] 06/13/2024 11:00 AM EDT Office Visit Gastroenterology at [place] [phone] Kelly Miller CARBON DIOXIDE OPERATOR [facility] [place] [address] 10/22/2024 10:30 AM EST Office Visit [place] [phone] Marialuisa Peres MD [facility] [place] [address] documented as of this encounter Visit Diagnoses Diagnosis ASCVD (arteriosclerotic cardiovascular disease)- Primary Unspecified cardiovascular disease documented in this encounter Care Teams Educational Fundraising Director Relationship Specialty Start Date End Date Jennifer Gallagher APRN [address] [place] [address] , [place] [address] [place] [address] PCP - General Family Medicine 10/30/17 01/28/21 documented as of this encounter
--- OUTSIDE RECORDS SUMMARY | 2024-04-10 13:42 | XMS_ITS | Encounter Summary ---
Author Organization [facility] [place] [address] Care Team Providers Care Monorail Charger Operator Name Role Phone Kerry Villalobos APRN Primary Care Provider [phone] Encounter Details Date Type Department Care Team (Late st Contact Info) Description 11/23/2016 Ancillary Procedure [place] [address] Kerry Ascencio PA [address] [place] [address] Social History Tobacco Use Types Packs/Day Years [...] PM EDT Office Visit Cardiology at [address] [address] Cody Martinez MD [facility] [place] [address] 05/27/2024 11:20 AM EDT Office Visit Dermatology at [facility] [address] [place] [phone] 06/13/2024 9:00 AM EDT Appointment [place] [address] Kelly Miller APRN [facility] [place] [address] 06/13/2024 10:00 AM EDT Laboratory Appointment Lab [place] [address] 06/13/2024 11:00 AM EDT Office Visit [place] [address] Kelly Miller CURATOR OF COLLECTIONS [facility] [place] [address] 10/22/2024 10:30 AM EST Office Visit Weight [place] [phone] Marialuisa Peres MD [facility] [place] [address] documented as of this encounter Procedures Procedure Name Priority Date/Time Associated Diagnosis Comments FILM LIBRARY STORAGE ONLY MAMMO Routine 11/23/2016 12:00 AM EST documented in this encounter Results * Film Library- Storage Only Mammo (11/23/2016 12:00 AM EST) Narrative [facility] - 12/29/2021 9:52 AM EDT This exam is auto-finalizing. It's purpose is for storage only. Kerry MILLS IMFidelina FILM LIBRARY ORDERABLES [place], [place] documented in this encounter Visit Diagnoses Not on filedocumented in this encounter Care Teams Monorail Charger Operator Relationship Specialty Start Date End Date Kerry Villalobos APRN [address] [place] [address] [place] [address] PCP - General 03/08/12 10/29/17 documented as of this encounter
--- OUTSIDE RECORDS SUMMARY | 2024-04-10 13:42 | XMS_ITS | Encounter Summary ---
[place] [address] Care Team Providers Care Tooling Mechanic Name Role Phone Jennifer Gallagher APRN Primary Care Provider + Reason for Visit * Reason Onset Date Comments Other 10/31/2019 symptom call Encounter Details Date Type Department Care Team (Late st Contact Info) Description 10/31/2019 Telephone Cardiology at [address] [phone] Ally Meza, RN Other (symptom call) Social History Tobacco Use Types Packs/Day Years Used Date Smoking Tobacco: Former Smokeless Tobacco: Never Sex and Gender Information Value Date Recorded Sex Assigned at Not on file Gender Identity Not on file Sexual Orientation Not on file documented as of this encounter Miscellaneous Notes * Telephone Encounter - Ally Meza, RN - 10/31/2019 2:31 PM EST Call from Agatha. Has noted left sided chest discomfort for the last few weeks,not worse today. States this discomfort is very similar to the chest discomfort she discussed with Dr Martinez in December 2018. Denies radiation of discomfort,denies nausea and no vomiting,no diaphoresis and no lightheadedness. Denies chest pressure and denies increased shortness of breath. December [address] Martinez reviewed for Cardiac history. States she has transferred her care to Dr Méndez as her spouse is followed by Dr Méndez,appointment set for early December,Agatha will request Cardiology [place] add her to a cancellation list to be seen sooner if anything opens up. Instructed Anay in need to seek urgent/emergent assessment should her symptoms worsen,she voices good understanding. No further questions. documented in this encounter Plan of Treatment Upcoming Encounters Date Type Department Care Team (Late st Contact Info) Description 04/28/2024 1:40 PM EDT Office Visit Cardiology at [place] [phone] Cody Martinez MD [facility] [place] [address] 05/27/2024 11:20 AM EDT Office Visit Dermatology at [address] [address] 06/13/2024 9:00 AM EDT Appointment Ultrasound at [place] [phone] Kelly Miller APRN [facility] [place] [address] 06/13/2024 10:00 AM EDT Laboratory Appointment Lab [address] [place] [phone] 06/13/2024 11:00 AM EDT Office Visit Gastroenterology at [place] [phone] Kelly Miller APRN [facility] [place] [address] 10/22/2024 10:30 AM EST Office Visit [place] [address] Marialuisa Peres MD [facility] [place] [address] documented as of this encounter Visit Diagnoses Not on filedocumented in this encounter Care Teams Tooling Mechanic Relationship Specialty Start Date End Date Jennifer Gallagher APRN [address] [place] [address] , [facility] [address] [place] [address] PCP - General Family Medicine 10/30/17 01/28/21 documented as of this encounter
--- OUTSIDE RECORDS SUMMARY | 2024-04-10 13:42 | XMS_ITS | Encounter Summary ---
Author Organization [facility] Address [facility] [place] [address] Care Team Providers Care Liquid Waste Treatment Plant Operator Name Role Phone Jennifer Gallagher APRN Primary Care Provider + Encounter Details Date Type Department Care Team (Latest Contact Info) Description 02/10/2020 11:00 AM EDT TH Visit (TeleHealth) Cardiology at [address] [address] Cody Martinez MD [facility] [address] ASCVD (arteriosclerotic cardiovascular disease); Atypical chest pain Social History Tobacco Use Types Packs/Day Years Used Date Smoking Tobacco: Former Smokeless Tobacco: Never Sex and Gender Information Value Date Recorded Sex Assigned at Not on file Gender Identity Not on file Sexual Orientation Not on file documented as of this encounter Progress Notes * Cody Martinez MD - 02/10/2020 11:00 AM EDT Images from the original note were not included. CARDIOLOGY VIRTUAL VISIT NOTE Agatha Yi 02/10/20 [id number] PRIMARY CARE PROVIDER: Jennifer Gallagher APRN VISIT PARAMETERS: 1. The patient consented to this being a virtual visit 2. The visit took place using a telephone CLINICAL HISTORY: This 59-year-old woman was evaluated with a telephone encounter due to the COVID-19 pandemic. She has known coronary artery disease although it was very mild and discovered on heartcatheterization November 06, 2017 and involve some mild diffuse disease in both her LAD and RCA. She had nothing obstructive. At the time she was having some atypical chest pain and had an abnormal nuclear stress test. When I first saw her on December 19, 2018, she was describing only occasional atypical chest discomfort which tended to last less than a minute and which was not exertional. It occurred focally above her left breast. She tells me that over the winter she had intermittent discomfort very similar to her prior pain. It involved sharp discomfort above her left breast. It has not been exertional. It tends to last lessthan a minute. She is otherwise doing well. She is active and free of exertional dyspnea or any exertional symptoms. She is taking her cardiac medications (aspirin and rosuvastatin) and tolerating both. MEDICATIONS: Current Outpatient Medications Medication Sig Dispense Refill ??? nitroGLYcerin (Nitrostat) 0.[address], [address] 1 tablet under the tongue every 5 minutes as needed for Chest pain (may repeat x3,five minutes apart ,call 911 if chest pain remains). 30tablet 5 ??? celecoxib (CeleBREX) 100 mg Capsule daily. ??? traMADoL (Ultram) 50 mg Tablet TK 1 T PO BID PRF PAIN ??? lisinopril (PRINIVIL;ZESTRIL) 2.5 mg Tablet Take 2.5 mg by mouth daily. ??? aspirin 81 mg Tablet, Delayed Release (E.C.) Take 81 mg by mouth daily. ??? levothyroxine (SYNTHROID) 75 mcg Tablet Take 75 mcg by mouth daily. ??? MECLIZINE HCL (MECLIZINE ORAL) Take by mouth as needed. Dose unknown ??? mometasone (NASONEX) 50 mcg/actuation Inglis, Non-Aerosol 2 sprays by Nasal route daily. [...] daily ??? citalopram (CELEXA) 20 mg tablet (Patient taking differently: Take 10 mg by mouth daily.) OBJECTIVE DATA: Home Vital Signs if available: Not Available Other Data: No additional data ASSESSMENT: Overall she seems stable. She had some brief recurrence of her atypical pain over the winter but has been largely free of any further symptoms during the last few weeks. Her symptoms continue to be very atypical and I think highly unlikely to be cardiac in etiology. She is apparently facing the potential need for both rotator cuff surgery and carpal tunnel release surgery. I do not see this being a problem for her and think it reasonable for her to proceed with the surgery without further cardiovascular testing. PLAN: 1. Continue current medications 2. Reasonable to proceed with orthopedic surgery (potential rotator cuff repair and carpal tunnel release), considering her low risk of cardiac complications 3. Cardiology follow-up to reassess in 1 year Cody Martinez MD, [facility] Time Attestation: I spent a total of 15 minutes associated with this encounter, including chart review, the patient encounter, and documentation. documented in this encounter Plan of Treatment Upcoming Encounters Date Type Department Care Team (Late st Contact Info) Description 04/28/2024 1:40 PM EDT Office Visit Cardiology at [address] [phone] Cody Martinez MD [facility] [address] 05/27/2024 11:20 AM EDT Office Visit Dermatology at [address] [place] [phone] 06/13/2024 9:00 AM EDT Appointment Ultrasound at [place] [phone] Kelly Miller ELEVATOR SERVICE TECHNICIAN [facility] [address] 06/13/2024 10:00 AM EDT Laboratory Appointment Lab [address] [place] [address] 06/13/2024 11:00 AM EDT Office [place] [address] Kelly Miller ELEVATOR SERVICE TECHNICIAN [facility] [place] [address] 10/22/2024 10:30 AM EST Office Visit [place] [address] Marialuisa Peres MD [facility] [address] documented as of this encounter Visit Diagnoses Diagnosis ASCVD (arteriosclerotic cardiovascular disease) Unspecified cardiovascular disease Atypical chest pain Other chest pain documented in this encounter Care Teams Liquid Waste Treatment Plant Operator Relationship Specialty Start Date End Date Jennifer Gallagher APRN [address] [place] [address] , [address] [address] PCP - General Family Medicine 10/30/17 01/28/21 documented as of this encounter
--- OUTSIDE RECORDS SUMMARY | 2024-04-10 13:42 | XMS_ITS | Encounter Summary ---
Author Organization [facility] Address [facility] [place] [address] Care Team Providers Care Hydrometeorology Teacher Name Role Phone Jennifer Gallagher JU Primary Care Provider + Reason for Visit * Reason Onset Date Comments Medication Refill 02/02/2020 Encounter Details Date Type Department Care Team (Late st Contact Info) Description 02/02/2020 Refill Cardiology at [address] [phone] Cody Martinez MD [facility] [place] [address] Medication Refill Social History Tobacco Use Types [...] PM EDT Office Visit Cardiology at [address] [address] Cody Martinez MD [facility] [place] [address] 05/27/2024 11:20 AM EDT Office Visit Dermatology at [facility] [address] [place] [address] 06/13/2024 9:00 AM EDT Appointment Ultrasound at [place] [phone] Kelly Miller APRN [facility] [place] [address] 06/13/2024 10:00 AM EDT Laboratory Appointment Lab [address] [place] [phone] 06/13/2024 11:00 AM EDT Office Visit Gastroenterology at [place] [phone] Kelly Miller FIREPROOF DOOR MAKER [facility] [place] [address] 10/22/2024 10:30 AM EST Office Visit Weight [place] [phone] Marialuisa Peres MD [facility] [place] [address] documented as of this encounter Visit Diagnoses Diagnosis ASCVD (arteriosclerotic cardiovascular disease)- Primary Unspecified cardiovascular disease documented in this encounter Care Teams Hydrometeorology Teacher Relationship Specialty Start Date End Date Jennifer Gallagher APRN [address] [place] [address] , [facility] [address] [place] [address] PCP - General Family Medicine 10/30/17 01/28/21 documented as of this encounter
--- OUTSIDE RECORDS SUMMARY | 2024-04-10 13:42 | XMS_ITS | Encounter Summary ---
Author Organization [facility] Address [facility] [place] [address] Care Team Providers Care Information Security Manager Name Role Phone Kerry Villalobos APRN Primary Care Provider [phone] Encounter Details Date Type Department Care Team (Late st Contact Info) Description 10/04/2012 12:05 AM EST Ancillary Procedure [place] [address] Kerry Ascencio PA [address] [place] [address] [phone] Social History Tobacco Use Types Packs/Day Years [...] PM EDT Office Visit Cardiology at [address] [phone] Cody Martinez MD [facility] [place] [address] 05/27/2024 11:20 AM EDT Office Visit Dermatology at [facility] [address] [place] [phone] 06/13/2024 9:00 AM EDT [place] [address] Kelly Miller APRN [facility] [place] [address] 06/13/2024 10:00 AM EDT Laboratory Appointment Lab [address] [place] [address] 06/13/2024 11:00 AM EDT Office [place] [phone] Kelly Miller REPAIR ARMATURE WINDER HELPER [facility] [place] [address] 10/22/2024 10:30 AM EST Office Visit [place] [phone] Marialuisa Peres MD [facility] [place] [address] documented as of this encounter Procedures Procedure Name Priority Date/Time Associated Diagnosis Comments FILM LIBRARY-STORAGE ONLY US BREAST Routine 10/04/2012 12:05 AM EST documented in this encounter Results * Film Library Storage Only US Breast (10/04/2012 12:05 AM EST) Narrative [facility] - 12/29/2021 12:10 PM EDT This exam is auto-finalizing. It's purpose is for storage only. Kerry MILLS IMFidelina FILM LIBRARY ORDERABLES [place], [place] documented in this encounter Visit Diagnoses Not on filedocumented in this encounter Care Teams Information Security Manager Relationship Specialty Start Date End Date Kerry Villalobos APRN [address] [place] [address] [place] [address] PCP - General 03/08/12 10/29/17 documented as of this encounter
--- OUTSIDE RECORDS SUMMARY | 2024-04-10 13:43 | XMS_ITS | Encounter Summary ---
Author Organization [facility] Address [facility] [place] [address] Care Team Providers Care Builder Beam Name Role Phone Unavailable Primary Care Provider Unavailabl e Encounter Details Date Type Department Care Team (Late st Contact Info) Description 10/23/2007 Ancillary Procedure [place] [address] Kerry Ascencio PA [address] [place] [address] [place] [address] Social History Tobacco Use Types Packs/Day Years [...] PM EDT Office Visit Cardiology at [address] [address] Cody Martinez MD [facility] [place] [address] 05/27/2024 11:20 AM EDT Office Visit Dermatology at [place] [address] [place] [phone] 06/13/2024 9:00 AM EDT [place] [address] Kelly Miller APRN [facility] [place] [address] 06/13/2024 10:00 AM EDT Laboratory Appointment Lab [address] [place] [phone] 06/13/2024 11:00 AM EDT Office [place] [address] Kelly Miller APRN [facility] [place] [address] 10/22/2024 10:30 AM EST Office Visit [place] [phone] Marialuisa Peres MD [facility] [place] [address] documented as of this encounter Procedures Procedure Name Priority Date/Time Associated Diagnosis Comments FILM LIBRARY STORAGE ONLY MAMMO Routine 10/23/2007 12:00 AM EST documented in this encounter Results * Film Library- Storage Only Mammo (10/23/2007 12:00 AM EST) Narrative [facility] - 12/29/2021 9:56 AM EDT This exam is auto-finalizing. It's purpose is for storage only. Kerry MILLS IMFidelina FILM LIBRARY ORDERABLES [place], [place] documented in this encounter Visit Diagnoses Not on filedocumented in this encounter
--- OUTSIDE RECORDS SUMMARY | 2024-04-10 13:43 | XMS_ITS | Encounter Summary ---
Author Organization Formerly [facility] Address [facility] [place] [address] Care Team Providers Care Cardiopulmonary Supervisor Name Role Phone Kerry Ascencio Primary Care Provider + Encounter Details Date Type Department Care Team (Late st Contact Info) Description 07/14/2009 Orders Only Obstetrics [place] [address] Donald Heredia MD [facility] DR OBSTETRICS & [place] [address] Social History Tobacco Use Types Packs/Day Years [...] PM EDT Office Visit Cardiology at [address] [address] Cody Martinez MD [facility] [place] [address] 05/27/2024 11:20 AM EDT Office Visit Dermatology at [facility] [address] [place] [phone] 06/13/2024 9:00 AM EDT [place] [address] Kelly Miller APRN [facility] [place] [address] 06/13/2024 10:00 AM EDT Laboratory Appointment Lab [address] [place] [phone] 06/13/2024 11:00 AM EDT Office [place] [address] Kelly Miller [employer] INST[employer]ER [facility] [place] [address] 10/22/2024 10:30 AM EST Office Visit [place] [address] Marialuisa Peres MD [facility] [place] [address] documented as of this encounter Procedures Procedure Name Priority Date/Time Associated Diagnosis Comments SURGICAL PATHOLOGY REPORT Routine 07/14/2009 2:39 PM EDT documented in this encounter Results * Surgical Pathology Report (07/14/2009 2:39 PM EDT) Surgical Pathology Report [id number] ? [facility]; B The signing pathologist has (i) examined the relevant preparation(s) for the specimen(s) and (ii) rendered or confirmed the diagnosis(es). . ?Pathology Surgical Pathology Final Report Clinical Information Specimen Submitted: A - Uterus and cervix left tube and ovary: Abdomen Clinical History: Not provided Clinical Diagnosis: Myomata Gross Description Labeled/Fixative: ?Uterus and cervix, left tube and ovary, abdomen; ? fresh. Qty/Size/Weight: ? Fragments, 9.0 x 7.0 x 5.0 cm. Tissue Description: ?Morcellated portions of recognizable uterine and ? cervical tissue. ?? Uterus and Cervix: ?Endometrium: ? Glistening, red-pagan. ? Thickness: ?Averages 0.1 cm. ? Lesions: ?Not identified. ?Myometrium: ?Rubbery, trabeculated, pink-pagan. ? Lesions: ?There is a single 6.0-cm, transmural mass ? identified. ?Cut Surface: ?? The cut surface of this mass is dusky, meaty, ? pink-pagan to yellow-green. ?Uterine serosa: ?Dusky, congested, red-pagan. ?Cervix: ?The ectocervix is 2.8 cm in diameter and is ? smooth, heard-white. ?? Ovaries and Fallopian Tubes: ?Left ovary ? Dimensions: ? 3.0 x 2.0 x 1.2 cm. ? Outer surface: ??Displays pink-pagan, pagan-yellow, fatty, and ? fibrofatty adhesions. ? Cut surface: ?Displays hemorrhagic and clear fluid-filled cystic structures, up to 0.8 cm. ?Left tube: ? There is a 4.0 x 0.4-cm, congested fallopian tube ? identified. Sections/Processin g: ? Toll Lineman sections are submitted as follows: ? (1-2) squamocolumnar junction; (3) endomyometrium; ? (4-7) myometrial lesion; (8) left adnexa. ??(R8) ? aje/EJR Microscopic Description Slides reviewed, microscopic description not recorded. Diagnosis Uterus, left fallopian tube and ovary (hysterectomy and left salpingo-oophorect howie): ?? 1. 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 ?? 2. Nabothian cysts, endocervix. ?? 3. Benign organized hemorrhagic cyst with numerous ?hemosiderin-lade n macrohpages, ovary. . Diagnosis ?? 4. Ovarian adhesions. ?? 5. Fallopian tube, no histopathologic abnormalities. CR-0 07/16/09 JLG 07/16/09 Verified by: ? Vu Patterson MD ?Pathologist ?(Electronic Signature) The attending pathologist whose signature appears on this report has reviewed all diagnostic slides and has edited the gross and/or microscopic portion of the report in rendering the final pathologic diagnosis. Comment ?? The uterine smooth mucsle neoplasm is completely infarcted and therefore the nuclear detail is less than optimal for histologic evaluation. However, there is no definite evidence of significant cytologic atypia, cellular necrosis, or increased mitotic activity. 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 EVELIA HILLIARD 07/14/2009 2:39 PM EDT Donald Heredia MD PATHOLOGY/CYTOLOGY ORDERABLES EVELIA HILLIARD documented in this encounter Visit Diagnoses Not on filedocumented in this encounter Care Teams Cardiopulmonary Supervisor Relationship Specialty Start Date End Date Kerry Ascencio PA [address] [place] [address] [place] [address] PCP - General Internal Medicine 01/29/21 documented as of this encounter
== END ==
PROVIDERS: PCP Internal Medicine; Visit Provider Internal Medicine
DX: R10.31 Right lower quadrant pain (principal)
CPT/HCPCS: 73502

== ENCOUNTER → 2024-04-11 09:07 | Outpatient (CLI) | payer MEDICAID, SELFPAY ==
--- NOTE | 2024-04-11 13:13 | DI.RAD_ITS ---
Exam(s) XR ABDOMEN FLAT PLATE EXAM: XR ABDOMEN FLAT PLATE CLINICAL HISTORY: constipation,K59.09. TECHNIQUE: 2D digital imaging was performed. COMPARISON: CR XR ABDOMEN FLAT PLATE from 12/11/2023 FINDINGS: Single AP supine view: Bowel gas pattern nonspecific the supine position. There does not appear be obvious constipation. S urgical clips are again noted in the right upper quadrant probably prior cholecystectomy. No obvious calcifications seen the kidneys nor along the course of the ureters. Two phleboliths are noted in l eft side of the pelvis, unchanged. No acute osseous findings. IMPRESSION: Previous cholecystectomy. Nonspecific bowel gas pattern in the supine position DATA REPOSITORY: RADIATION DOSE DELIVERED:
== END ==
PROVIDERS: PCP Internal Medicine; Visit Provider Internal Medicine
DX: K59.09 Other constipation (principal); Z90.49 Acquired absence of other specified parts of digestive tract
CPT/HCPCS: 74018

== ENCOUNTER 2024-06-27 16:41 | Emergency (ER) | payer MEDICAID, SELFPAY ==
[2024-06-27 16:42] VITALS: BP 121/75; PULSE 69; RESP 17; TEMP 36.2; O2SAT 94
--- NOTE | 2024-06-27 16:45 | RT.EKG_ITS ---
APPROVED REPORT Exam: Resting ECG Reason for Exam: Chest pain Patient Location: E HR:69 bpm ECG Measurements Heart Rate 69 AXIS SD 197 P 21 QRSd 84 QRS -45 QT 410 T 27 QTc 441 Conclusion Sinus rhythm...normal P axis, V-rate 60- 99 Left anterior fascicular block...axis(240,-40), init forces inf Low voltage, precordial leads...precordial leads <1.0mV sinus rhtyhm, left axis, normal intervals, no acute ischemic changes
--- OUTSIDE RECORDS SUMMARY | 2024-06-27 16:58 | XMS_ITS | Continuity of Care Document ---
Author Organization [facility] Address [address] [place] [address] Care Team Providers Care Meat Specialist Name Role Phone Kerry Ascencio Primary Care Physician [facility] Date[facility] 04/14/24 - 04/14/24 [facility] [address] [place] [address] Discharge Disposition: Home Allergies, Adverse Reactions, Alerts [...] Tests Laboratory* Thyroid Stimulating Hormone 03/26/24 * Urinalysis with Microscopic 04/11/24 * Urine Culture 04/11/24 * Hemoglobin A1c 09/21/23 * Urinalysis with Micro if Indicated and Culture if Indicated 04/09/24 Radiology* MRI Brain w/o Contrast 03/26/24 * MRI Spine Cervical w/o Contrast 03/25/24 * US Abdomen Limited 04/11/24 * XR Spine Lumbosacral 2 or 3 Views 04/25/23 * US Kidney Bladder 04/14/24 * XR Abdomen 1 View 04/10/24 Immunizations Given and Recorded Vaccine Date Status [...] Patient Declined Last Modified by Kerry Ascencio, Terminal Clerk 02-11-2019 3Result Comment: Patient Declined Last Modified by Kerry Ascencio, Terminal Clerk 02-11-2019, 19:01 Medications acyclovir 200 mg oral capsule See Instructions, PRN other (see comment), take one tablet every 4-6 hours as needed, # 30 tab, 0 Refill(s), Pharmacy: [facility] #[id number], 154.94, cm, 04/16/23 9:16:00 EDT, Height, 83, kg, 09/15/22 11:55:00 EST, Weight Dosing Start Date: 08/14/23 Status: Ordered aspirin 81 mg oral delayed release tablet 81 mg = 1 tab, Oral, Daily, # 30 tab, 0 Refill(s) Start Date: 02/17/22 Status: Ordered CeleBREX 200 mg oral capsule 200 mg = 1 cap, Oral, BID, PRN as needed for pain, # 60 cap, 0 Refill(s), Pharmacy: [facility] #[id number], 154.94, cm, 04/16/23 9:16:00 EDT, Height, 84.5, kg, 04/09/24 13:10:00 EDT, Weight Dosing Start Date: 04/11/24 Status: Ordered cetirizine 10 mg oral tablet 10 mg = 1 tab, Oral, Daily, # 90 tab, 3 Refill(s), Pharmacy: [facility] #[id number], 154.94, cm, 04/16/23 9:16:00 EDT, Height, 83, kg, 09/15/22 11:55:00 EST, Weight Dosing Start Date: 09/14/23 Status: Ordered citalopram 10 mg oral tablet 10 mg = 1 tab, Oral, Daily, Total dose of 30 mg daily, 1 20 mg tab and 1 10 mg tab, # 90 tab, 3 Refill(s), Pharmacy: [facility] #[id number], 154.94, cm, 04/16/23 9:16:00 EDT, Height, 89.45, kg, 12/05/23 9:09:00 EDT, Weight Dosing Start Date: 12/05/23 Stop Date: 11/29/24 Status: Ordered citalopram 20 mg oral tablet 20 mg = 1 tab, Oral, Daily, Total daily dose 30 mg, 1 20 mg tab + 1 10 mg tab, # 90 tab, 3 Refill(s), Pharmacy: [facility] #[id number], 154.94, cm, 04/16/23 9:16:00 EDT, Height, 89.45, kg, 12/05/23 9:09:00 EDT, Weight Dosing Start Date: 12/05/23 Status: Ordered dilTIAZem 240 mg/24 hours oral capsule, extended release Oral, 240 Unknown, 4 Refill(s), Take 1 capsule by mouth daily., 0 Refill(s) Start Date: 04/13/23 Status: Ordered Emgality Prefilled Pen 120 mg/mL subcutaneous solution 120 mg =, Subcutaneous, every month, [facility] neurology, # 1 EA, 0 Refill(s) Start Date: 12/05/23 Stop Date: 01/04/24 Status: Ordered EpiPen 2-Dionisio 0.3 mg injectable kit 0.3 mg =, IM, Once, # 1 EA, 0 Refill(s), Pharmacy: [facility] #[id number], 180, cm, 09/15/22 11:55:00 EST, Height/Length Dosing, 83, kg, 09/15/22 11:55:00 EST, Weight Dosing Start Date: 04/25/23 Status: Ordered ezetimibe 10 mg oral tablet 1 tab, Oral, Daily, # 90 tab, 3 Refill(s), Pharmacy: [facility] #[id number], 154.94, cm, 04/16/23 9:16:00 EDT, Height, 86.15, kg, 02/14/24 10:43:00 EDT, Weight Dosing Start Date: 03/24/24 Status: Ordered Flonase Allergy Relief 50 mcg/inh nasal spray 1 sprays, Nostril-Both, BID, shake well before using, # 9.9 mL, 1 Refill(s), Pharmacy: [facility] #[id number], 154.94, cm, 04/16/23 9:16:00 EDT, Height, 85.65, kg, 03/25/24 8:31:00 EDT, Weight Dosing Start Date: 03/25/24 Status: Ordered Freestyle precision Jose Freestyle test strips Freestyle precision Jose Freestyle test strips, Check BS once daily, Supply, See instructions, # 100EA, 0 Refill(s), Pharmacy: [facility] #[id number] Start Date: 12/13/23 Status: Ordered levothyroxine 175 mcg (0.175 mg) oral tablet 175 mcg = 1 tab, Oral, Daily, Dose increased. Please D/C 150 mcg dose, # 90 tab, 3 Refill(s), Pharmacy: [facility] #58, 154.94, cm, 04/16/23 9:16:00 EDT, Height, 85.65, kg, 03/25/24 8:31:00 EDT, Weight Dosing Start Date: 03/31/24 Status: Ordered meclizine 25 mg oral tablet 25 mg = 1 tab, Oral, TID, PRN as needed for dizziness, # 30 tab, 1 Refill(s), Pharmacy: [facility] #[id number], 154.94, cm, 04/16/23 9:16:00 EDT, Height, 86.15, [...] chew, # 90 tab, 3 Refill(s), Pharmacy: [facility] #[id number], 180, cm, 09/15/22 11:55:00 EST, Height/Length Dosing, 83, kg, 09/15/22 11:55:00 EST, Weight Dosing Start Date: 11/27/22 Stop Date: 11/22/23 Status: Ordered omeprazole 20 mg oral delayed release capsule 20 mg = 1 cap, Oral, Daily, # 90 cap, 3 Refill(s), [id number], 154.94, cm, 04/16/23 9:16:00 EDT, Height, 83, kg, 09/15/22 11:55:00 EST, Weight Dosing Start Date: 09/18/23 Status: Ordered potassium citrate 10 mEq oral tablet, extended release 10 mEq = 1 tab, Oral, BID, with food, # 180 tab, 3 Refill(s), [facility][id number], 154.94, cm, 04/16/23 9:16:00 EDT, Height, 83, [...] HOURS, # 6 tab, 0 Refill(s), [id number], 154.94, cm, 04/16/23 9:16:00 EDT, Height, 89.95, kg, 10/23/23 14:51:00 EST, Weight Dosing Start Date: 12/03/23 Status: Ordered rosuvastatin 40 mg oral tablet 40 mg = 1 tab, Oral, Daily, taking at bedtime brings best results, # 90 tab, 3 Refill(s), [facility] #[id number], 180, cm, 09/15/22 11:55:00 EST, Height/Length Dosing, [...] distal clavical excision. 2moderate sigmoid colon [facility] c/o RT nipple discharge, bx consistent with papilloma no dysplasia or atypia 4hemangiomas of LT chest and breast (Dr. Sykes [facility]) 5bilat knees 6left hip 7left knee [id number] 9Salpingectomy Unilateral Ectopic 10Surgical debridement of left trochanteric bursa with IT band tenotomy Social History Social History Type Response Tobacco Former tobacco user Tobacco Use:. 1 Sex Female 1quit in 1984 Patient Care team information Care Team Personnel Name: Kerry Ascencio Position: Physician Member Role: Primary Care Physician Address: Address: [facility] [address] [address]- Care Team Related Persons Name: YESICA RANGEL Address: Home Name: CHUY THORNTON Address: Home [address] [place] [phone] Name: YESICA ANTONIO
--- OUTSIDE RECORDS SUMMARY | 2024-06-27 16:58 | XMS_ITS | Continuity of Care Document ---
Author Organization [facility] Address [address] [place] [address] Care Team Providers Care Cell Efficiency Supervisor Name Role Phone Kerry Ascencio Primary Care Physician [facility] 04[facility]14/[facility] [address] [place] [address] Discharge Disposition: Home Allergies, Adverse Reactions, Alerts [...] rash Unknown Active Fluarix Rash Unknown Active tetanus toxoids Skin rash Unknown [...] Patient Declined Last Modified by Kerry Ascencio, Cloth Dye Range Operator 02-11-2019 3Result Comment: Patient Declined Last Modified by Kerry Ascencio, Cloth Dye Range Operator 02-11-2019, 19:01 Medications acyclovir 200 mg oral capsule See Instructions, PRN other (see comment), take one tablet every 4-6 hours as needed, # 30 tab, 0 Refill(s), Pharmacy: [facility] #[id number], 154.94, cm, 04/16/23 9:16:00 EDT, Height, 83, [...] pain, # 60 cap, 0 Refill(s), Pharmacy: [facility] #58, 154.94, cm, 04/16/23 9:16:00 EDT, Height, 84.5, kg, 04/09/24 13:10:00 EDT, Weight Dosing Start Date: 04/11/24 Status: Ordered cetirizine 10 mg oral tablet 10 mg = 1 tab, Oral, Daily, # 90 tab, 3 Refill(s), Pharmacy: [facility] #[id number], 154.94, cm, 04/16/23 9:16:00 EDT, Height, 83, kg, 09/15/22 11:55:00 EST, Weight Dosing Start Date: 09/14/23 Status: Ordered citalopram 10 mg oral tablet 10 mg = 1 tab, Oral, Daily, Total dose of 30 mg daily, 1 20 mg tab and 1 10 mg tab, # 90 tab, 3 Refill(s), Pharmacy: [facility] #[id number], 154.94, cm, 04/16/23 9:16:00 EDT, Height, 89.45, kg, 12/05/23 9:09:00 EDT, Weight Dosing Start Date: 12/05/23 Stop Date: 11/29/24 Status: Ordered citalopram 20 mg oral tablet 20 mg = 1 tab, Oral, Daily, Total daily dose 30 mg, 1 20 mg tab + 1 10 mg tab, # 90 tab, 3 Refill(s), Pharmacy: [facility] #[id number], 154.94, cm, 04/16/23 9:16:00 EDT, Height, 89.45, kg, 12/05/23 9:09:00 EDT, Weight Dosing Start Date: 12/05/23 Status: Ordered dilTIAZem 240 mg/24 hours oral capsule, extended release Oral, 240 Unknown, 4 Refill(s), Take 1 capsule by mouth daily., 0 Refill(s) Start Date: 04/13/23 Status: Ordered Emgality Prefilled Pen 120 mg/mL subcutaneous solution 120 mg =, Subcutaneous, every month, [facility] neurology, # 1 EA, 0 Refill(s) Start Date: 12/05/23 Stop Date: 01/04/24 Status: Ordered EpiPen 2-Dionisio 0.3 mg injectable kit 0.3 mg =, IM, Once, # 1 EA, 0 Refill(s), Pharmacy: [facility] #[id number], 180, cm, 09/15/22 11:55:00 EST, Height/Length Dosing, 83, kg, 09/15/22 11:55:00 EST, Weight Dosing Start Date: 04/25/23 Status: Ordered ezetimibe 10 mg oral tablet 1 tab, Oral, Daily, # 90 tab, 3 Refill(s), Pharmacy: [facility] #[id number], 154.94, cm, 04/16/23 9:16:00 EDT, Height, 86.15, kg, 02/14/24 10:43:00 EDT, Weight Dosing Start Date: 03/24/24 Status: Ordered Flonase Allergy Relief 50 mcg/inh nasal spray 1 sprays, Nostril-Both, BID, shake well before using, # 9.9 mL, 1 Refill(s), Pharmacy: [facility] #[id number], 154.94, cm, 04/16/23 9:16:00 EDT, Height, 85.65, kg, 03/25/24 8:31:00 EDT, Weight Dosing Start Date: 03/25/24 Status: Ordered Freestyle precision Jose Freestyle test strips Freestyle precision Jose Freestyle test strips, Check BS once daily, Supply, See instructions, # 100EA, 0 Refill(s), Pharmacy: [facility] #[id number] Start Date: 12/13/23 Status: Ordered levothyroxine 175 mcg (0.175 mg) oral tablet 175 mcg = 1 tab, Oral, Daily, Dose increased. Please D/C 150 mcg dose, # 90 tab, 3 Refill(s), Pharmacy: [facility] #58, 154.94, cm, 04/16/23 9:16:00 EDT, Height, 85.65, kg, 03/25/24 8:31:00 EDT, Weight Dosing Start Date: 03/31/24 Status: Ordered meclizine 25 mg oral tablet 25 mg = 1 tab, Oral, TID, PRN as needed for dizziness, # 30 tab, 1 Refill(s), Pharmacy: [facility] #[id number], 154.94, cm, 04/16/23 9:16:00 EDT, Height, 86.15, [...] chew, # 90 tab, 3 Refill(s), Pharmacy: [facility] #94, 180, cm, 09/15/22 11:55:00 EST, Height/Length Dosing, 83, kg, 09/15/22 11:55:00 EST, Weight Dosing Start Date: 11/27/22 Stop Date: 11/22/23 Status: Ordered omeprazole 20 mg oral delayed release capsule 20 mg = 1 cap, Oral, Daily, # 90 cap, 3 Refill(s), [facility][id number], 154.94, cm, 04/16/23 9:16:00 EDT, Height, 83, kg, 09/15/22 11:55:00 EST, Weight Dosing Start Date: 09/18/23 Status: Ordered potassium citrate 10 mEq oral tablet, extended release 10 mEq = 1 tab, Oral, BID, with food, # 180 tab, 3 Refill(s), [facility][id number], 154.94, cm, 04/16/23 9:16:00 EDT, Height, 83, [...] HOURS, # 6 tab, 0 Refill(s), [id number], 154.94, cm, 04/16/23 9:16:00 EDT, Height, 89.95, kg, 10/23/23 14:51:00 EST, Weight Dosing Start Date: 12/03/23 Status: Ordered rosuvastatin 40 mg oral tablet 40 mg = 1 tab, Oral, Daily, taking at bedtime brings best results, # 90 tab, 3 Refill(s), [facility][id number], 180, cm, 09/15/22 11:55:00 EST, Height/Length Dosing, [...] distal clavical excision. 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 Sykes [facility]) 5bilat knees 6left hip 7left knee [id number] 9Salpingectomy Unilateral Ectopic 10Surgical debridement of left trochanteric bursa with IT band tenotomy Social History Social History Type Response Tobacco Former tobacco user Tobacco Use:. 1 Sex Female 1quit in 1984 Patient Care team information Care Team Personnel Name: Kerry Ascencio Position: Physician Member Role: Primary Care Physician Address: Address: [facility] [address] [address]- Care Team Related Persons Name: YESICA RANGEL Address: Home Name: CHUY THORNTON Address: Home [address] [place] [phone] Name: YESICA ANTONIO
--- OUTSIDE RECORDS SUMMARY | 2024-06-27 16:59 | XMS_ITS | Continuity of Care Document ---
Author Organization [facility] Address [address] [place] [address] Care Team Providers Care Molding Machine Operator Name Role Phone Kerry Ascencio Primary Care Physician Encounter [facility] Date(s): 04/17/24 - 04/17/[address] [address] Discharge Disposition: Home or Self Care Attending Physician: Jessee Carlos MD Admitting Physician: Jessee Carlos MD Referring Physician: Jessee Carlos MD Allergies, Adverse Reactions, Alerts Substance Reaction Severity Status MILK Diarrhoea Unknown Active TREE AND SHRUB POLLEN Itching Unknown Active PEANUT Abdominal pain Anaphylactic reaction Unknown Active ADHESIVE TAPE Skin rash Unknown Active ANIMAL DANDER Sneezing Other Unknown Active amoxicillin Skin rash Unknown Active morphine Nausea Unknown Active acetaminophen-oxycodone Itching Unknown Acti ve benzoin topical Skin rash Unknown Active Fluarix Rash Unknown Active PINEAPPLE 1 Other Unknown Active tetanus toxoids Skin rash Unknown [...] Lumbosacral 2 or 3 Views 04/25/23 * XR Abdomen 1 View 04/10/24 Immunizations [...] Patient Declined Last Modified by Kerry Ascencio, High School Football Coach 02-11-2019 3Result Comment: Patient Declined Last Modified by Kerry Ascencio, High School Football Coach 02-11-2019, 19:01 Medications acyclovir 200 mg oral capsule See Instructions, PRN other (see comment), take one tablet every 4-6 hours as needed, # 30 tab, 0 Refill(s), Pharmacy: [facility] #[id number], 154.94, cm, 04/16/23 9:16:00 EDT, Height, 83, [...] pain, # 60 cap, 0 Refill(s), Pharmacy: [facility] #58, 154.94, cm, 04/16/23 9:16:00 EDT, Height, 84.5, kg, 04/09/24 13:10:00 EDT, Weight Dosing Start Date: 04/11/24 Status: Ordered cetirizine 10 mg oral tablet 10 mg = 1 tab, Oral, Daily, # 90 tab, 3 Refill(s), Pharmacy: [facility] #[id number], 154.94, cm, 04/16/23 9:16:00 EDT, Height, 83, kg, 09/15/22 11:55:00 EST, Weight Dosing Start Date: 09/14/23 Status: Ordered citalopram 10 mg oral tablet 10 mg = 1 tab, Oral, Daily, Total dose of 30 mg daily, 1 20 mg tab and 1 10 mg tab, # 90 tab, 3 Refill(s), Pharmacy: [facility] #[id number], 154.94, cm, 04/16/23 9:16:00 EDT, Height, 89.45, kg, 12/05/23 9:09:00 EDT, Weight Dosing Start Date: 12/05/23 Stop Date: 11/29/24 Status: Ordered citalopram 20 mg oral tablet 20 mg = 1 tab, Oral, Daily, Total daily dose 30 mg, 1 20 mg tab + 1 10 mg tab, # 90 tab, 3 Refill(s), Pharmacy: [facility] #[id number], 154.94, cm, 04/16/23 9:16:00 EDT, Height, 89.45, kg, 12/05/23 9:09:00 EDT, Weight Dosing Start Date: 12/05/23 Status: Ordered dilTIAZem 240 mg/24 hours oral capsule, extended release Oral, 240 Unknown, 4 Refill(s), Take 1 capsule by mouth daily., 0 Refill(s) Start Date: 04/13/23 Status: Ordered Emgality Prefilled Pen 120 mg/mL subcutaneous solution 120 mg =, Subcutaneous, every month, [facility] neurology, # 1 EA, 0 Refill(s) Start Date: 12/05/23 Stop Date: 01/04/24 Status: Ordered EpiPen 2-Dionisio 0.3 mg injectable kit 0.3 mg =, IM, Once, # 1 EA, 0 Refill(s), Pharmacy: [facility] #[id number], 180, cm, 09/15/22 11:55:00 EST, Height/Length Dosing, 83, kg, 09/15/22 11:55:00 EST, Weight Dosing Start Date: 04/25/23 Status: Ordered ezetimibe 10 mg oral tablet 1 tab, Oral, Daily, # 90 tab, 3 Refill(s), Pharmacy: [facility] #[id number], 154.94, cm, 04/16/23 9:16:00 EDT, Height, 86.15, kg, 02/14/24 10:43:00 EDT, Weight Dosing Start Date: 03/24/24 Status: Ordered Flonase Allergy Relief 50 mcg/inh nasal spray 1 sprays, Nostril-Both, BID, shake well before using, # 9.9 mL, 1 Refill(s), Pharmacy: [facility] #[id number], 154.94, cm, 04/16/23 9:16:00 EDT, Height, 85.65, kg, 03/25/24 8:31:00 EDT, Weight Dosing Start Date: 03/25/24 Status: Ordered Freestyle precision Jose Freestyle test strips Freestyle precision Jose Freestyle test strips, Check BS once daily, Supply, See instructions, # 100EA, 0 Refill(s), Pharmacy: [facility] #[id number] Start Date: 12/13/23 Status: Ordered levothyroxine 175 mcg (0.175 mg) oral tablet 175 mcg = 1 tab, Oral, Daily, Dose increased. Please D/C 150 mcg dose, # 90 tab, 3 Refill(s), Pharmacy: [facility] #58, 154.94, cm, 04/16/23 9:16:00 EDT, Height, 85.65, kg, 03/25/24 8:31:00 EDT, Weight Dosing Start Date: 03/31/24 Status: Ordered meclizine 25 mg oral tablet 25 mg = 1 tab, Oral, TID, PRN as needed for dizziness, # 30 tab, 1 Refill(s), Pharmacy: [facility] #[id number], 154.94, cm, 04/16/23 9:16:00 EDT, Height, 86.15, [...] chew, # 90 tab, 3 Refill(s), Pharmacy: [facility] #94, 180, cm, 09/15/22 11:55:00 EST, Height/Length Dosing, 83, kg, 09/15/22 11:55:00 EST, Weight Dosing Start Date: 11/27/22 Stop Date: 11/22/23 Status: Ordered omeprazole 20 mg oral delayed release capsule 20 mg = 1 cap, Oral, Daily, # 90 cap, 3 Refill(s), [facility][id number], 154.94, cm, 04/16/23 9:16:00 EDT, Height, 83, kg, 09/15/22 11:55:00 EST, Weight Dosing Start Date: 09/18/23 Status: Ordered potassium citrate 10 mEq oral tablet, extended release 10 mEq = 1 tab, Oral, BID, with food, # 180 tab, 3 Refill(s), [facility][id number], 154.94, cm, 04/16/23 9:16:00 EDT, Height, 83, [...] HOURS, # 6 tab, 0 Refill(s), [id number], 154.94, cm, 04/16/23 9:16:00 EDT, Height, 89.95, kg, 10/23/23 14:51:00 EST, Weight Dosing Start Date: 12/03/23 Status: Ordered rosuvastatin 40 mg oral tablet 40 mg = 1 tab, Oral, Daily, taking at bedtime brings best results, # 90 tab, 3 Refill(s), [facility] #[id number], 180, cm, 09/15/22 11:55:00 EST, Height/Length Dosing, [...] Completed Cardiac catheterization 11/05/17 C ompleted Cholecystectomy 5/16/16 Completed Arthroscopy of knee joint 7 12/16/11 Completed Colonoscopy 09/16/11 Completed Total knee replacement 8 09/16/09 Completed Hysterectomy 07/13/09 Completed Salpingectomy Unilateral Ectopic 9 Completed Surgical debridement of left trochanteric bursa with IT band tenotomy 10 Completed Tubal ligation Completed 1Revision extensive debridement and arthroscopic distal clavical excision. 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 Sykes [facility]) 5bilat knees 6left hip 7left knee [address] 9Salpingectomy Unilateral Ectopic 10Surgical debridement of left trochanteric bursa with IT band tenotomy Results Laboratory List Name Date Urinalysis Microscopic 04/17/24 Urinalysis with Microscopic 04/17/24 Most recent to oldest [Reference Range]: 1 UA Color Yellow (04/17/24 8:22 AM) UA WBC [0-3] 0-3 (04/17/24 8:22 AM) UA Urobilinogen Positive *NA* (04/17/24 8:22 AM) UA Bili [Negative] Negative *NA* (04/17/24 8:22 AM) UA Ketones Negative *NA* (04/17/24 8:22 AM) UA RBC [0-2] 0-2 (04/17/24 8:22 AM) UA Leuk Est Negative (04/17/24 8:22 AM) UA Nitrite Negative *NA* (04/17/24 8:22 AM) UA Glucose [Negative] Negative *NA* (04/17/24 8:22 AM) UA Bacteria Rare /HPF (04/17/24 8:22 AM) UA Protein Negative (04/17/24 8:22 AM) UA Blood Negative (04/17/24 8:22 AM) UA Mucous Rare /HPF *ABN* (04/17/24 8:22 AM) UA Spec Grav 1.010 *NA* (04/17/24 8:22 AM) UA Squam Epithelial [None Seen] Many *ABN* (04/17/24 8:22 AM) UA pH 6.0 *NA* (04/17/24 8:22 AM) UA Appear Clear (04/17/24 8:22 AM) UA Culture Ind?. Not Applicable (04/17/24 8:22 AM) Orders for Microbiology Reports Name Date Urine Culture 04/17/24 Microbiology Reports TEST:Urine Culture STATUS:Order in Progress BODY SITE: SOURCE:Urine, Clean Catch COLLECTED DATE/TIME:04/17/24 8:22 AM PRELIMINARY REPORT 10,000 - 100,000 cfu/ml Mixed real (multiple species present) Social History Social History Type Response Tobacco Former tobacco user Tobacco Use:. 1 Sex Female 1quit in 1984 Patient Care team information Care Team Personnel Name: Kerry Ascencio Position: Physician Member Role: Primary Care Physician Address: Address: [facility] [place] [address]- Care Team Related Persons Name: YESICA RANGEL Name: CHUY THORNTON Address: Home [address] [place] [phone] Name: YESICA ANTONIO
--- OUTSIDE RECORDS SUMMARY | 2024-06-27 16:59 | XMS_ITS | Continuity of Care Document ---
Author Organization [facility] Address [address] [place] [address] Care Team Providers Care Electrician Assistant Name Role Phone Kerry Ascencio Primary Care Physician [facility] Date(s): 04/14/24 - 04/14/[address] [address] Discharge Disposition: Home Allergies, Adverse Reactions, Alerts [...] Patient Declined Last Modified by Kerry Ascencio, Health Professional 02-11-2019 3Result Comment: Patient Declined Last Modified by Kerry Ascencio, Health Professional 02-11-2019, 19:01 Medications acyclovir 200 mg oral capsule See Instructions, PRN other (see comment), take one tablet every 4-6 hours as needed, # 30 tab, 0 Refill(s), Pharmacy: [facility] #[id number], 154.94, cm, 04/16/23 9:16:00 EDT, Height, 83, [...] pain, # 60 cap, 0 Refill(s), Pharmacy: [facility] #58, 154.94, cm, 04/16/23 9:16:00 EDT, Height, 84.5, kg, 04/09/24 13:10:00 EDT, Weight Dosing Start Date: 04/11/24 Status: Ordered cetirizine 10 mg oral tablet 10 mg = 1 tab, Oral, Daily, # 90 tab, 3 Refill(s), Pharmacy: [facility] #[id number], 154.94, cm, 04/16/23 9:16:00 EDT, Height, 83, kg, 09/15/22 11:55:00 EST, Weight Dosing Start Date: 09/14/23 Status: Ordered citalopram 10 mg oral tablet 10 mg = 1 tab, Oral, Daily, Total dose of 30 mg daily, 1 20 mg tab and 1 10 mg tab, # 90 tab, 3 Refill(s), Pharmacy: [facility] #[id number], 154.94, cm, 04/16/23 9:16:00 EDT, Height, 89.45, kg, 12/05/23 9:09:00 EDT, Weight Dosing Start Date: 12/05/23 Stop Date: 11/29/24 Status: Ordered citalopram 20 mg oral tablet 20 mg = 1 tab, Oral, Daily, Total daily dose 30 mg, 1 20 mg tab + 1 10 mg tab, # 90 tab, 3 Refill(s), Pharmacy: [facility] #[id number], 154.94, cm, 04/16/23 9:16:00 EDT, Height, 89.45, [...] Once, # 1 EA, 0 Refill(s), Pharmacy: [facility] #[id number], 180, cm, 09/15/22 11:55:00 EST, Height/Length Dosing, 83, kg, 09/15/22 11:55:00 EST, Weight Dosing Start Date: 04/25/23 Status: Ordered ezetimibe 10 mg oral tablet 1 tab, Oral, Daily, # 90 tab, 3 Refill(s), Pharmacy: [facility] #[id number], 154.94, cm, 04/16/23 9:16:00 EDT, Height, 86.15, kg, 02/14/24 10:43:00 EDT, Weight Dosing Start Date: 03/24/24 Status: Ordered Flonase Allergy Relief 50 mcg/inh nasal spray 1 sprays, Nostril-Both, BID, shake well before using, # 9.9 mL, 1 Refill(s), Pharmacy: [facility] #[id number], 154.94, cm, 04/16/23 9:16:00 EDT, Height, 85.65, kg, 03/25/24 8:31:00 EDT, Weight Dosing Start Date: 03/25/24 Status: Ordered Freestyle precision Jose Freestyle test strips Freestyle precision Jose Freestyle test strips, Check BS once daily, Supply, See instructions, # 100EA, 0 Refill(s), Pharmacy: [facility] #[id number] Start Date: 12/13/23 Status: Ordered levothyroxine 175 mcg (0.175 mg) oral tablet 175 mcg = 1 tab, Oral, Daily, Dose increased. Please D/C 150 mcg dose, # 90 tab, 3 Refill(s), Pharmacy: [facility] #58, 154.94, cm, 04/16/23 9:16:00 EDT, Height, 85.65, kg, 03/25/24 8:31:00 EDT, Weight Dosing Start Date: 03/31/24 Status: Ordered meclizine 25 mg oral tablet 25 mg = 1 tab, Oral, TID, PRN as needed for dizziness, # 30 tab, 1 Refill(s), Pharmacy: [facility] #[id number], 154.94, cm, 04/16/23 9:16:00 EDT, Height, 86.15, [...] chew, # 90 tab, 3 Refill(s), Pharmacy: [facility] #94, 180, cm, 09/15/22 11:55:00 EST, Height/Length Dosing, 83, kg, 09/15/22 11:55:00 EST, Weight Dosing Start Date: 11/27/22 Stop Date: 11/22/23 Status: Ordered omeprazole 20 mg oral delayed release capsule 20 mg = 1 cap, Oral, Daily, # 90 cap, 3 Refill(s), [facility][id number], 154.94, cm, 04/16/23 9:16:00 EDT, Height, 83, kg, 09/15/22 11:55:00 EST, Weight Dosing Start Date: 09/18/23 Status: Ordered potassium citrate 10 mEq oral tablet, extended release 10 mEq = 1 tab, Oral, BID, with food, # 180 tab, 3 Refill(s), [facility][id number], 154.94, cm, 04/16/23 9:16:00 EDT, Height, 83, [...] HOURS, # 6 tab, 0 Refill(s), [facility][id number], 154.94, cm, 04/16/23 9:16:00 EDT, Height, 89.95, kg, 10/23/23 14:51:00 EST, Weight Dosing Start Date: 12/03/23 Status: Ordered rosuvastatin 40 mg oral tablet 40 mg = 1 tab, Oral, Daily, taking at bedtime brings best results, # 90 tab, 3 Refill(s), [facility][id number], 180, cm, 09/15/22 11:55:00 EST, Height/Length Dosing, [...] clavical excision. 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 Sykes [facility]) 5bilat knees 6left hip 7left knee [address] 9Salpingectomy Unilateral Ectopic 10Surgical debridement of left trochanteric bursa with IT band tenotomy Social History Social History Type Response Tobacco Former tobacco user Tobacco Use:. 1 Sex Female 1quit in 1984 Patient Care team information Care Team Personnel Name: Kerry Ascencio Position: Physician Member Role: Primary Care Physician Address: Address: [facility] [address] [address]- Care Team Related Persons Name: YESICA RANGEL Address: Home Name: CHUY THORNTON Address: Home [address] [place] [phone] Name: YESICA ANTONIO
--- OUTSIDE RECORDS SUMMARY | 2024-06-27 16:59 | XMS_ITS | Continuity of Care Document ---
Author Organization [facility] Address [address] [place] [address] Care Team Providers Care Group Teacher Name Role Phone Kerry Ascencio Primary Care Physician Encounter [facility] Date(s): 03/27/24 - 05/14/[address] [address] Discharge Disposition: Home or Self Care Attending Physician: Kerry Ascencio Admitting Physician: Kerry Ascencio Referring Physician: Kerry Ascencio Allergies, Adverse Reactions, Alerts Substance Criticality Severity Reaction Reaction Severity Status MILK Unable to assess criticality Unknown Diarrhoea Active TREE AND SHRUB POLLEN Unable to assess criticality Unknown Itching Active PEANUT Unable to assess criticality Unknown Abdominal pain Anaphylactic reaction Active amoxicillin Unable to assess criticality Unknown Skin rash Active morphine Unable to assess criticality Unknown Nausea Active acetaminophen-oxyco done Unable to assess criticality Unknown Itching Active benzoin topical Unable to assess criticality Unknown Skin rash Active tetanus toxoids Unable to assess criticality Unknown Skin rash Active Fluarix Unable to assess criticality Unknown Rash Active ADHESIVE TAPE Unable to assess criticality Unknown Skin rash Active ANIMAL DANDER Unable to assess criticality Unknown Sneezing Other Active PINEAPPLE 1 Unable to assess criticality Unknown Other Active 1raw fruits, burning in the mouth Assessment and Plan Future Appointments Future Scheduled Tests Laboratory* Thyroid Stimulating Hormone 03/26/24 * Hemoglobin A1c 09/21/23 * Urinalysis with Micro if Indicated and Culture if Indicated 04/09/24 Radiology* MRI Brain w/o Contrast 03/26/24 * MRI Spine Cervical w/o Contrast 03/25/24 * XR Abdomen 1 View 04/10/24 Immunizations [...] Patient Declined Last Modified by Kerry Ascencio, Custodial Officer 02-11-2019 3Result Comment: Patient Declined Last Modified by Kerry Ascencio, Custodial Officer 02-11-2019, 19:01 Medications acyclovir 200 mg oral capsule See Instructions, PRN other (see comment), take one tablet every 4-6 hours as needed, # 30 tab, 0 Refill(s), Pharmacy: [facility] #[id number], 154.94, cm, 04/16/23 9:16:00 EDT, Height, 83, [...] pain, # 60 cap, 0 Refill(s), Pharmacy: [facility] #58, 154.94, cm, 04/16/23 9:16:00 EDT, Height, 84.5, kg, 04/09/24 13:10:00 EDT, Weight Dosing Start Date: 04/11/24 Status: Ordered cetirizine 10 mg oral tablet 10 mg = 1 tab, Oral, Daily, # 90 tab, 3 Refill(s), Pharmacy: [facility] #[id number], 154.94, cm, 04/16/23 9:16:00 EDT, Height, 83, kg, 09/15/22 11:55:00 EST, Weight Dosing Start Date: 09/14/23 Status: Ordered citalopram 10 mg oral tablet 10 mg = 1 tab, Oral, Daily, Total dose of 30 mg daily, 1 20 mg tab and 1 10 mg tab, # 90 tab, 3 Refill(s), Pharmacy: [facility] #[id number], 154.94, cm, 04/16/23 9:16:00 EDT, Height, 89.45, kg, 12/05/23 9:09:00 EDT, Weight Dosing Start Date: 12/05/23 Stop Date: 11/29/24 Status: Ordered citalopram 20 mg oral tablet 20 mg = 1 tab, Oral, Daily, Total daily dose 30 mg, 1 20 mg tab + 1 10 mg tab, # 90 tab, 3 Refill(s), Pharmacy: [facility] #[id number], 154.94, cm, 04/16/23 9:16:00 EDT, Height, 89.45, kg, 12/05/23 9:09:00 EDT, Weight Dosing Start Date: 12/05/23 Status: Ordered dilTIAZem 240 mg/24 hours oral capsule, extended release Oral, 240 Unknown, 4 Refill(s), Take 1 capsule by mouth daily., 0 Refill(s) Start Date: 04/13/23 Status: Ordered Emgality Prefilled Pen 120 mg/mL subcutaneous solution 120 mg =, Subcutaneous, every month, [facility] neurology, # 1 EA, 0 Refill(s) Start Date: 12/05/23 Stop Date: 01/04/24 Status: Ordered EpiPen 2-Dionisio 0.3 mg injectable kit 0.3 mg =, IM, Once, # 1 EA, 0 Refill(s), Pharmacy: [facility] #[id number], 180, cm, 09/15/22 11:55:00 EST, Height/Length Dosing, 83, kg, 09/15/22 11:55:00 EST, Weight Dosing Start Date: 04/25/23 Status: Ordered ezetimibe 10 mg oral tablet 1 tab, Oral, Daily, # 90 tab, 3 Refill(s), Pharmacy: [facility] #[id number], 154.94, cm, 04/16/23 9:16:00 EDT, Height, 86.15, kg, 02/14/24 10:43:00 EDT, Weight Dosing Start Date: 03/24/24 Status: Ordered Flonase Allergy Relief 50 mcg/inh nasal spray 1 sprays, Nostril-Both, BID, shake well before using, # 9.9 mL, 1 Refill(s), Pharmacy: [facility] #[id number], 154.94, cm, 04/16/23 9:16:00 EDT, Height, 85.65, kg, 03/25/24 8:31:00 EDT, Weight Dosing Start Date: 03/25/24 Status: Ordered Freestyle precision Jose Freestyle test strips Freestyle precision Jose Freestyle test strips, Check BS once daily, Supply, See instructions, # 100EA, 0 Refill(s), Pharmacy: [facility] #[id number] Start Date: 12/13/23 Status: Ordered levothyroxine 175 mcg (0.175 mg) oral tablet 175 mcg = 1 tab, Oral, Daily, Dose increased. Please D/C 150 mcg dose, # 90 tab, 3 Refill(s), Pharmacy: [facility] #58, 154.94, cm, 04/16/23 9:16:00 EDT, Height, 85.65, kg, 03/25/24 8:31:00 EDT, Weight Dosing Start Date: 03/31/24 Status: Ordered meclizine 25 mg oral tablet 25 mg = 1 tab, Oral, TID, PRN as needed for dizziness, # 30 tab, 1 Refill(s), Pharmacy: [facility] #[id number], 154.94, cm, 04/16/23 9:16:00 EDT, Height, 86.15, kg, 02/14/24 10:43:00 EDT, WeightDosing Start Date: 03/03/24 Status: Ordered metFORMIN 500 mg oral tablet, extended release 500 mg = 1 tab, Oral, Daily, # 90 tab, 3 Refill(s), Pharmacy: [facility] #58, 154.94, cm, 04/16/23 9:16:00 EDT, Height, 84.5, kg, 04/09/24 13:10:00 EDT, Weight Dosing Start Date: 04/23/24 Status: Ordered MiraLax oral powder for reconstitution 17 g, Oral, Daily, # 510 g, 0 Refill(s), Pharmacy: [facility] #94, 154.94, cm, 04/16/23 9:16:00 EDT, Height, 84.5, kg, 04/09/24 13:10:00 EDT, Weight Dosing Start Date: 05/05/24 Status: Ordered Myrbetriq 50 mg oral tablet, extended release 50 mg = 1 tab, Oral, Daily, do not crush or chew, # 90 tab, 3 Refill(s), Pharmacy: [facility] #94, 180, cm, 09/15/22 11:55:00 EST, Height/Length Dosing, 83, kg, 09/15/22 11:55:00 EST, Weight Dosing Start Date: 11/27/22 Stop Date: 11/22/23 Status: Ordered omeprazole 20 mg oral delayed release capsule 20 mg = 1 cap, Oral, Daily, # 90 cap, 3 Refill(s), Pharmacy: [facility] #[id number], 154.94, cm, 04/16/23 9:16:00 EDT, Height, 83, kg, 09/15/22 11:55:00 EST, Weight Dosing Start Date: 09/18/23 Status: Ordered potassium citrate 10 mEq oral tablet, extended release 10 mEq = 1 tab, Oral, BID, with food, # 180 tab, 3 Refill(s), Pharmacy: [facility] #[id number], 154.94, cm, 04/16/23 9:16:00 EDT, Height, 83, kg, 09/15/22 11:55:00 EST, Weight Dosing Start Date: 10/19/23 Stop Date: 10/13/24 Status: Ordered predniSONE 20 mg oral tablet 40 mg = 2 tab, Oral, Daily, # 10 tab, 0 Refill(s), Pharmacy: [facility] #94, 154.94, cm, 239:16:00 EDT, Height, 84.5, kg, 05/13/24 11:29:00 EDT, Weight Dosing Start Date: 05/13/24 Stop Date: 05/18/24 Status: Ordered PROCHAMBER AERO SPACER PROCHAMBER AERO SPACER, 0 Refill(s) Start Date: 04/19/22 Status: Ordered rizatriptan 5 mg oral tablet 1 tab, Oral, Daily, PRN NEEDED FOR MIGRAINE HEADACHE, MAY REPEAT DOSE EVERY 2 HOURS UP TO A. MAXIMUM OF 2 DOSES IN 24 HOURS, # 6 tab, 0 Refill(s), Pharmacy: [facility] #[id number], 154.94, cm, 04/16/23 9:16:00 EDT, Height, 89.95, kg, 10/23/23 14:51:00 EST, Weight Dosing Start Date: 12/03/23 Status: Ordered rosuvastatin 40 mg oral tablet 40 mg = 1 tab, Oral, Daily, taking at bedtime brings best results, # 90 tab, 3 Refill(s), Pharmacy:[facility] #[id number], 180, cm, 09/15/22 11:55:00 EST, Height/Length Dosing, 83, kg, 09/15/2211:55:00 EST, Weight Dosing Start Date: 06/01/23 Status: Ordered Problem List Condition Confirmation Course Effective Dates Status H ealt Status Informant Adult health examination Confirmed Active [...] distal clavical excision. 2moderate sigmoid colon diverticul[facility], c/o RT nipple discharge, bx consistent with papilloma no dysplasia or atypia 4hemangiomas of LT chest and breast (Dr. Sykes [facility]) 5bilat knees 6left hip 7left knee [address]80[address] 9Salpingectomy Unilateral Ectopic 10Surgical debridement of left trochanteric bursa with IT band tenotomy Social History Social History Type Response Tobacco Former tobacco user Tobacco Use:. 1 Sex Female Sex Representation Female (finding) 1quit in 1984 Patient Care team information Care Team Personnel Name: Kerry Ascencio Position: Physician Member Role: Primary Care Physician Address: [facility] [place] [address]- Care Team Related Persons Name: YESICA RANGEL Name: CHUY THORNTON Name: YESICA ANTONIO Insurance Providers Guarantor name: YESSENIA THORNTON Health Plan Information #: 1 Payer: [employer] [place] [employer] Member Number: [id number] Policy Number: NA Health Plan Information #: 2 Payer: [employer] [place] [employer] Member Number: [id number] Policy Number: NA
--- OUTSIDE RECORDS SUMMARY | 2024-06-27 17:00 | XMS_ITS | Encounter Summary ---
Author Organization [facility] Address [address] [place] [address] Care Team Providers Care Research Attorney Name Role Phone Kerry Ascencio Primary Care Provider + Encounter Details Date Type Department Care Team (Late st Contact Info) Description 07/23/2023 Lab Requisition [facility] Pathology & Laboratory Medicine - [address] [address] Gladys Sykes MD [address] [place] [address] [address] [place], [place] [id number] Encounter for other general examination Social History [...] explore management options, if applicable. 07/24/2023 15:15 [facility] Final Diagnosis A. SKIN OF NECK, LEFT SIDE, SHAVE BIOPSY: - Hemangioma. 07/24/2023 15:15 [facility] Attestation By the signature below, the attending physician certifies that they have 1) personally conducted a gross and/or microscopic examination of the described specimen(s), and/or personally interpreted the results of laboratory testing of the described specimen(s), and 2) personally rendered or confirmed the above diagnosis. 07/24/2023 15:15 [facility] at 1515 Microscopic Description There is a dome-shaped papule formed by a proliferation of small vascular channels that has a lobular architecture. The vessels are lined by an attenuated endothelium. Some of the vessels are congested. The overlying epidermis has a diminished rete ridge pattern. 07/24/2023 15:15 [facility] Clinical History Left side of neck lesion 07/24/2023 15:15 [facility] Gross Description A. Received [...] A1. Julita Ambrosio 07/24/2023 8:23 07/24/2023 15:15 [facility] Performing Lab [facility] 07/24/2023 15:15 [facility] Scanned Images 07/24/2023 15:15 [facility] Tissue SPECIMEN FROM SKIN / Unknown 07/23/2023 9:15 EST 07/23/2023 18:29 EST Gladys Sykes MD PATHOLOGY ORDERA ALYS[facility] [address] [place] [address] documented in this encounter Visit Diagnoses Diagnosis Encounter for other general examination documented in this encounter Care Teams Research Attorney Relationship Specialty Start Date End Date Kerry Ascencio PA [address] [place] [address] [place] [phone] PCP - General 12/16/21 documented as of this encounter
--- OUTSIDE RECORDS SUMMARY | 2024-06-27 17:00 | XMS_ITS | Encounter Summary ---
Author Organization [facility] Address [address] [place] [address] Care Team Providers Care Sill Worker Name Role Phone Kerry Ascencio Primary Care Provider + Encounter Details Date Type Department Care Team (Late st Contact Info) Description 02/18/2024 Lab Requisition [facility] Pathology & Laboratory Medicine - [address] [address] Outr Resulting Lab, Provider Social History Tobacco [...] Lyme Ab Negative Negative 02/19/2024 10:30 EDT [facility] Blood VENOUS BLOOD / Unknown 02/17/2024 23:15 EDT 02/18/2024 16:59 EDT Provider Outr Resulting Lab IMMUNOLOGY A ND SEROLOGY ORDERABLES [facility] [address] [place], [place] [address] documented in this encounter Visit Diagnoses Not on filedocumented in this encounter Care Teams Sill Worker Relationship Specialty Start Date End Date Kerry Ascencio PA [address] [place] [address] [place] [phone] PCP - General 12/16/21 documented as of this encounter
--- OUTSIDE RECORDS SUMMARY | 2024-06-27 17:00 | XMS_ITS | Encounter Summary ---
Author Organization [facility] [place] [address] Care Team Providers Care Licensed Audiologist Name Role Phone Kerry Ascencio Primary Care Provider + Encounter Details Date Type Department Care Team (Latest Contact Info) Description 06/13/2024 Travel Social History Tobacco Use Types Packs/Day [...] Care Team (Late st Contact Info) Description 06/30/2024 9:40 AM EDT Office Visit Cardiology at [address] [phone] Cody Martinez MD [facility] [place] [address] 10/22/2024 10:30 AM EST Office Visit Weight [place] [phone] Marialuisa Peres MD [facility] [place] [address] documented as of this encounter Visit Diagnoses Not on filedocumented in this encounter Care Teams Licensed Audiologist Relationship Specialty Start Date End Date Kerry Ascencio PA [address] [place] [address] [place] [address] PCP - General Internal Medicine 01/29/21 documented as of this encounter
--- OUTSIDE RECORDS SUMMARY | 2024-06-27 17:00 | XMS_ITS | Referral Summary ---
Author Organization [facility] Address [address] [place] [address] Care Team Providers Care Low Heel Builder Name Role Phone Kerry Ascencio Primary Care Provider + Social History Tobacco Use Types Packs/Day Years Used Date Smoking Tobacco: Never Assessed Interpersonal Safety Answer Date Record ed Physically Hurt Never 04/20/2020 Verbally Threaten Not on file 04/20/2020 Sex and Gender Information Value Date Recorded Sex Assigned at Not on file Gender Identity Not on file Sexual Orientation Not on file Plan of Treatment Not on file Care Teams Low Heel Builder Relationship Specialty Start Date End Date Kerry Ascencio PA [address] [place] [address] [place] [address] PCP - General 12/16/21
--- OUTSIDE RECORDS SUMMARY | 2024-06-27 17:00 | XMS_ITS | Encounter Summary ---
Author Organization [facility] Address [address] [place] [address] Care Team Providers Care Credit Processor Name Role Phone Kerry Ascencio Primary Care Provider + Encounter Details Date Type Department Care Team (Late st Contact Info) Description 01/13/2022 Lab Requisition [facility] Pathology & Laboratory Medicine - [address] [address] Evonne Scales, DO [address] [facility] [address] [address] [address] [place], [place] [address] Encounter for screening for malignant neoplasm of [...] explore management options, if applicable. 01/17/2022 12:01 [facility] Final Diagnosis A. COLON, AT 90 CM, BIOPSY: - Colonic mucosa with largely preserved crypt architecture and mild patchy increase in eosinophils in the lamina propria. - Negative for active inflammation. 01/17/2022 12:01 [facility] Attestation By the signature below, the attending physician certifies that they have 1) personally conducted a gross and/or microscopic examination of the described specimen(s), and/or personally interpreted the results of laboratory testing of the described specimen(s), and 2) personally rendered or confirmed the above diagnosis. 01/17/2022 12:01 [facility] at 1201 Clinical History Screening; rectal bleeding 01/17/2022 12:01 [facility] Gross Description A. Received in formalin labelled with proper patient identification (initials G, D) and biopsy @ 90 cm is a pagan-brown tissue, 0.2 x 0.2 x 0.2 cm. Entirely submitted in A1. GENE DIAZ(ASCP) 01/16/2022 7:55 01/17/2022 12:01 [facility] Performing Lab [facility] 01/17/2022 12:01 [facility] Scanned Images 01/17/2022 12:01 [facility] Tissue ENTIRE COLON / Unknown 01/13/2022 12:34 EDT 01/13/2022 17:21 EDT Evonne Scales DO PATHOLOGY ORDERABLES [facility] [address] [place] [address] documented in this encounter Visit Diagnoses Diagnosis Encounter for screening for malignant neoplasm of colon Special screening for malignant neoplasms, colon documented in this encounter Care Teams Credit Processor Relationship Specialty Start Date End Date Kerry Ascencio PA [address] [place] [address] [place] [phone] PCP - General 12/16/21 documented as of this encounter
--- OUTSIDE RECORDS SUMMARY | 2024-06-27 17:00 | XMS_ITS | Encounter Summary ---
Author Organization [facility] Address [facility] [place] [address] Care Team Providers Care Case Management Associate Name Role Phone Kerry Ascencio Primary Care Provider + Encounter Details Date Type Department Care Team (Late st Contact Info) Description 01/18/2024 [place] [phone] Zayda Tyler Social History Tobacco Use Types [...] 9:40 AM EDT Office Visit Cardiology at [address] [phone] Cody Martinez MD [facility] [place] [address] 10/22/2024 10:30 AM EST Office Visit Weight and Wellness at [place] [phone] Marialuisa Peres MD [facility] [address] documented as of this encounter Visit Diagnoses Not on filedocumented in this encounter Care Teams Case Management Associate Relationship Specialty Start Date End Date Kerry Ascencio PA [address] [place] [address] [place] [address] PCP - General Internal Medicine 01/29/21 documented as of this encounter
--- OUTSIDE RECORDS SUMMARY | 2024-06-27 17:00 | XMS_ITS | Encounter Summary ---
Author Organization [facility] [place] [address] Care Team Providers Care Materials Intern Name Role Phone Kerry Ascencio Primary Care Provider + Encounter Details Date Type Department Care Team (Latest Contact Info) Description 06/13/2024 10:00 AM EDT Laboratory Appointment Lab [address] [place] [phone] Prediabetes; Metabolic dysfunction-associated steatohepatitis (MASH); Hepatic fibrosis [...] 9:40 AM EDT Office Visit Cardiology at [address] [phone] Cody Martinez MD [facility] [place] [address] 10/22/2024 10:30 AM EST Office Visit Weight [place] [phone] Marialuisa Peres MD [facility] [place] [address] documented as of this encounter Procedures Procedure Name Priority Date/Time Associated Diagnosis Comments AFP TUMOR MARKER Routine 06/13/2024 8:56 AM EDT Prediabetes Metabolic dysfunction-associated steatohepatitis (MASH) Hepatic fibrosis PROTHROMBIN TIME Routine 06/13/2024 8:56 AM EDT Prediabetes Metabolic dysfunction-associated steatohepatitis (MASH) Hepatic fibrosis CBC (WITH DIFF) Routine 06/13/2024 8:56 AM EDT Prediabetes Metabolic dysfunction-associated steatohepatitis (MASH) Hepatic fibrosis HEMOGLOBIN A1C Add-On 06/13/2024 8:56 AM EDT Hepatic fibrosis Prediabetes Metabolic dysfunction-associated steatohepatitis (MASH) COMPREHENSIVE METABOLIC PANEL Routine 06/13/2024 8:56 AM EDT Prediabetes Metabolic dysfunction-associated steatohepatitis (MASH) Hepatic fibrosis documented in this encounter Results * (ABNORMAL) Hemoglobin A1c (06/13/2024 8:56 AM EDT) Hemoglobin A1c 6.3(H) 4.3 - 5.6 % 06/13/2024 12:[address] [facility] Comment: Per ADA guidelines, without clear symptoms of hyperglycemia or a random plasma glucose >199 mg/dL, a single abnormal A1c measurement cannot be used to diagnose diabetes mellitus. The diagnosis must be confirmed by either 1) a concurrent abnormal fasting plasma glucose or impaired response to oral glucose tolerance testing, or 2) an additional abnormal A1c, impaired fasting plasma glucose, or impaired response to oral glucose tolerance testing on a different day. A1c results obtained on patients with altered red blood cell turnover may not be leasing representative of glycemic control. Reference Interval: 4.3 - 5.6% 5.7 - 6.4%: Consistent with prediabetes >=6.5%: Consistent with diagnosis of diabetes mellitus Estimated Average Glucose 134 mg/dL 06/13/2024 12:[address] [facility] Blood VENOUS BLOOD SPECIMEN / Unknown Venipuncture / Unknown 06/13/2024 8:56 AM EDT 06/13/2024 8:56 AM EDT Kelly Miller BUSINESS LAW TEACHER CHEMISTRY ORDERABL ES Performing Organization Address [facility] Co de Phone Number [facility] [place] [address] * AFP tumor marker (06/13/2024 8:56 AM EDT) Alpha Fetoprotein Tumor Marker 4.7 <=8.3 ng/ml 06/13/2024 4:[address] [facility] Comment:This result was gene rated using a Carline Jackelyn immunoassay. Results obtained from other methods or manufacturers cannot be used interchangeably with this method. Blood VENOUS BLOOD SPECIMEN / Unknown Venipuncture / Unknown 06/13/2024 8:56 AM EDT 06/13/2024 8:56 AM EDT Kelly Johnson Paul CRANEN CHEMISTRY ORDERABL ES Performing Organization Address [facility] Phone Number [facility] [address] * (ABNORMAL) Prothrombin Time (06/13/2024 8:56 AM EDT) Prothrombin Time 12.7(H) 9.4 - 12.5 sec 06/13/2024 9:[address] [facility] International Normalization Ratio 1.1 <=4.9 06/13/2024 9:[address] [facility] Comment: An INR < 2.0 indicates adequate procoagulant activity for hemostasis in most patients without underlying bleeding disorders, though the INR may not adequately reflect hemostatic capacity in patients with liver disease and synthetic impairment. The recommended target INR range for therapeutic anticoagulation is 2.0 - 3.0 for most applications, though lower and higher ranges may be appropriate depending on clinical circumstances. Blood VENOUS BLOOD SPECIMEN / Unknown Venipuncture / Unknown 06/13/2024 8:56 AM EDT 06/13/2024 8:56 AM EDT Kelly Miller BUSINESS LAW TEACHER HEMATOLOGY ORDERAB LES [facility] [place] [address] * (ABNORMAL) Comprehensive metabolic panel (non-fasting) (06/13/2024 8:56 AM EDT) Glucose 168 65 - 199 mg/dL 06/13/2024 9:[address] [facility] Comment:Glucose Concentratio n >=200 mg/dL plus symptoms is consistent with Diabetes Mellitus. Blood Urea Nitrogen 14 8 - 18 mg/dL 06/13/2024 9:[address] [facility] Creatinine 0.77 0.70 - 1.20 mg/dL 06/13/2024 9:[address] [facility] Sodium 138 135 - 145 mMol/L 06/13/2024 9:[address] [facility] Potassium 3.6 3.5 - 5.0 mMol/L 06/13/2024 9:[address] [facility] Chloride 104 98 - 107 mMol/L 06/13/2024 9:[address] [facility] Carbon Dioxide 22 22 - 31 mMol/L 06/13/2024 9:[address] [facility] Anion Gap 12 5 - 15 mMol/L 06/13/2024 9:[address] [facility] Calcium 9.2 8.5 - 10.5 mg/dL 06/13/2024 9:[address] [facility] Protein, Total 7.2 6.1 - 8.0 g/dL 06/13/2024 9:[address] [facility] Albumin 4.0 3.2 - 5.2 g/dL 06/13/2024 9:[address] [facility] Aspartate Aminotransferase 45(H) <=30 unit/L 06/13/2024 9:32 AM [facility] Alanine Aminotransferase 32(H) 0 - 30 unit/L [facility]24 [facility] Alkaline Phosphatase 140(H) 35 - 105 unit/L 06/13/2024 9:32 AM [facility] Bilirubin, Total 0.7 <=1.3 mg/dL 06/13/2024 9:32 AM [facility] Est Glomerular Filtration Rate - Female 86 mL/min/1. 73 m?? 06/13/2024 9:32 AM [facility] Comment: This patient's estimated GFR [...] urine creatinine clearance. Assignment of CKD stage 1 - 5 for patients with an eGFR near the transition point between stages may be based on clinical assessment of muscle mass and symptoms in addition to eGFR. Link: eGFR Calculator [employer] Fasting Status No 06/13/2024 9:[address] [facility] Blood VENOUS BLOOD SPECIMEN / Unknown Venipuncture / Unknown 06/13/2024 8:56 AM EDT 06/13/2024 8:56 AM EDT Kelly Miller BUSINESS LAW TEACHER CHEMISTRY ORDERABL ES [facility] [place] [address] * CBC (with Diff) (06/13/2024 8:56 AM EDT) White Blood Cell 6.89 4.00 - 9.50 x10(3)/mcL 06/13/2024 9:[address] [facility] Red Blood Cell 4.74 4.00 - 5.21 x10(6)/mcL 06/13/2024 9:13 AM [facility] Hemoglobin 14.4 11.7 - 15.5 g/dL 06/13/2024 9:13 AM [facility] Hematocrit 43.7 35.7 - 45.8 % 06/13/2024 9:13 AM [facility] Mean Cell Volume 92.2 82.6 - 94.4 fL 06/13/2024 9:13 AM [facility] Mean Cell Hemoglobin 30.4 27.1 - 32.0 pg 06/13/2024 9:13 AM [facility] Mean Cell Hemoglobin Concentration 33.0 31.7 - 35.0 g/dL 06/13/2024 9:13 AM [facility] Platelet 193 145 - 357 x10(3)/mcL 06/13/2024 9:13 AM [facility] Mean Platelet Volume 12.7 7.6 - 12.9 fL 06/13/2024 9:13 AM [facility] RDW Standard Deviation 45.6 37.0 - 46.0 fL 06/13/2024 9:13 AM [facility] RDW coefficient of variation 13.4 11.5 - 14.1 % 06/13/2024 9:13 AM [facility] NRBC% auto 0.0 % 06/13/2024 9:13 AM [facility] NRBC Absolute <0.01 <0.01 x10(3)/mcL 06/13/2024 9:13 AM [facility] Neutrophil % 56.4 % 06/13/2024 9:13 AM [facility] Neutrophil Absolute (ANC) - Automated 3.89 1.70 - 6.10 x10(3)/mcL 06/13/2024 9:13 AM [facility] Lymph % 31.5 % 06/13/2024 9:[address] [facility] Lymph Absolute 2.17 0.90 - 3.20 x10(3)/mcL 06/13/2024 9:[address] [facility] Monocyte % 7.3 % 06/13/2024 9:[address] [facility] Monocyte Absolute 0.50 0.30 - 0.90 x10(3)/mcL 06/13/2024 9:[address] [facility] Eos % 3.8 % 06/13/2024 9:[address] [facility] Eos Absolute 0.26 0.00 - 0.40 x10(3)/[facility] 06/13/2024 9:[address] [facility] Basophil % 0.9 % 06/13/2024 9:[address] [facility] Baso Absolute 0.06 0.00 - 0.10 x10(3)/[facility] 06/13/2024 9:[address] [facility] Immature Gran % 0.1 % 9:[address] [facility] Immature Gran Absolute <0.04 0.00 - 0.04 x10(3)/[facility] 06/13/2024 9:[address] [facility] Blood VENOUS BLOOD SPECIMEN / Unknown Venipuncture / Unknown 06/13/2024 8:56 AM EDT 06/13/2024 8:56 AM EDT Kelly Miller BUSINESS LAW TEACHER HEMATOLOGY ORDERAB LES [facility] [place] [address] documented in this encounter Visit Diagnoses Diagnosis Prediabetes Other abnormal glucose Metabolic dysfunction-associated steatohepatitis (MASH) Hepatic fibrosis Cirrhosis of liver without mention of alcohol documented in this encounter Care Teams Materials Intern Relationship Specialty Start Date End Date Kerry Ascencio PA [address] [place] [address] [place] [address] PCP - General Internal Medicine 01/29/21 documented as of this encounter
--- OUTSIDE RECORDS SUMMARY | 2024-06-27 17:00 | XMS_ITS | Encounter Summary ---
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 -contact # given-to be placed on a [...] 9:40 AM EDT Office Visit Cardiology at [address] [phone] Cody Martinez MD [facility] [place] [address] 10/22/2024 10:30 AM EST Office Visit [place] [phone] Marialuisa Peres MD [facility] [place] [address] documented as of this encounter Visit Diagnoses Not on filedocumented in this encounter Care Teams Arnp Relationship Specialty Start Date End Date Kerry Ascencio PA [address] [place] [address] [place] [address] PCP - General Internal Medicine 01/29/21 documented as of this encounter
--- OUTSIDE RECORDS SUMMARY | 2024-06-27 17:00 | XMS_ITS | Encounter Summary ---
Author Organization [facility] Address [address] [place] [address] Care Team Providers Care Ergonomics Consultant Name Role Phone Unknown, Provider Primary Care Provider [phone] Encounter Details Date Type Department Care Team (Latest Contact Info) Description 02/01/2016 7:58 EDT - 02/01/2016 23:59 EDT Hospital Encounter [address] [address] Unknown, Provider, Discharge Disposition: Home or Self Care Social History Tobacco Use Types Packs/Day Years Used Date Smoking Tobacco: Never Assessed Sex and Gender Information Value Date Recorded Sex Assigned at Not on file Gender Identity Not on file Sexual Orientation Not on file documented as of this encounter Discharge Disposition Disposition Code Departure Means Destination Home or Self [facility] documented in this encounter Plan of Treatment Not on file documented as of this encounter Visit Diagnoses Not on filedocumented in this encounter Care Teams Ergonomics Consultant Relationship Specialty Start Date End Date Unknown, Provider, PCP - General 07/24/15 02/03/16 documented as of this encounter
--- OUTSIDE RECORDS SUMMARY | 2024-06-27 17:00 | XMS_ITS | Encounter Summary ---
Author Organization [facility] Address [address] [place] [address] Care Team Providers Care Commonwealth Attorney Name Role Phone Unavailable Primary Care Provider Unavailabl e Encounter Details Date Type Department Care Team (Late st Contact Info) Description 08/06/2000 Results Only [facility] - Maple conversion [address] [place] [address] Kevin Jiménez MD [address] [place] [address] [phone] Social History Tobacco Use Types Packs/Day Years [...] ? AGATHA YI ? Accession #: ? [id number] : ? 1960 (Age: 40) ??F ?Collect [...] Jiménez MD PATHOLOGY ORDERABLES Performing Organization Address City/State/[facility] Co de Phone Number SRINI MARTINES [address] [place] [address] documented in this encounter Visit Diagnoses Not on filedocumented in this encounter
--- OUTSIDE RECORDS SUMMARY | 2024-06-27 17:00 | XMS_ITS | Encounter Summary ---
Author Organization [facility] Address [address] [place] [address] Care Team Providers Care Welder Fitter Gas Name Role Phone Unknown, Provider Primary Care Provider Kerry Ascencio Primary Care Provider + Encounter Details Date Type Department Care Team (Late st Contact Info) Description 01/07/2020 Lab Requisition [facility] Pathology & Laboratory Medicine - [facility] [address] [place] [address] Unknown, Provider, Social History Tobacco Use Types [...] Provider Unknown MICROBIOLOGY - GENER AL ORDERABLES [facility] [address] [place] [address] * COVID-19 TESTING (01/07/2020 14:25 EDT) COVID-19 rt-PCR Result Negative Negative 01/08/2020 14:19 EDT [facility] Comment: Negative results [...] the FDA is pending. Performed on the [employer] Fast Performing Lab [facility] 01/08/2020 14:19 EDT [facility] Swab ENTIRE NASOPHARYNX / Unknown 01/07/2020 14:25 EDT 01/07/2020 21:38 EDT Provider Unknown MICROBIOLOGY - GENER AL ORDERABLES [facility] [address] [place] [address] documented in this encounter Visit Diagnoses Not on filedocumented in this encounter Additional Health Concerns Infection Onset Date Last Indicated Resolved Time R/O COVID-19 03/19/2020 03/19/2020 03/24/2020 22:1 5 EDT documented as of this encounter Care Teams Welder Fitter Gas Relationship Specialty Start Date End Date Unknown, Provider, PCP - General 08/22/18 12/15/21 Kerry Ascencio PA [address] [place] [address] [place] [phone] PCP - General 12/16/21 documented as of this encounter
--- OUTSIDE RECORDS SUMMARY | 2024-06-27 17:00 | XMS_ITS | Clinical Summary ---
Author Organization [facility] Address [address] [place] [address] Care Team Providers Care City Sanitarian Name Role Phone Kerry Ascencio Primary Care [...] - 1-dose 60+ series) 2020 COVID-19 Vaccine ( season) 2023 Care Teams City Sanitarian Relationship Specialty Start Date End Date Kerry Ascencio PA [address] [place] [address] [place] [phone] PCP - General 12/16/21
--- OUTSIDE RECORDS SUMMARY | 2024-06-27 17:00 | XMS_ITS | Encounter Summary ---
Author Organization [facility] Address [address] [place] [address] Care Team Providers Care Instrumentation Engineer Name Role Phone Unavailable Primary Care Provider Unavailabl e Encounter Details Date Type Department Care Team (Late st Contact Info) Description 10/06/2002 Results Only [facility] - Maple conversion [address] [place] [address] Kevin Jiménez MD [address] [place] [address] [address] [phone] Social History Tobacco Use Types Packs/Day Years [...] Jiménez MD PATHOLOGY ORDERABLES Performing Organization Address City/State/[facility] Co de Phone Number SRINI MARTINES [address] [place] [address] documented in this encounter Visit Diagnoses Not on filedocumented in this encounter
--- OUTSIDE RECORDS SUMMARY | 2024-06-27 17:00 | XMS_ITS | Encounter Summary ---
Author Organization [facility] Address [facility] Boris [place] [address] Care Team Providers Care [employer] Principal Name Role Phone Kerry Ascencio Primary Care Provider + Encounter Details Date Type Department Care Team (Latest Contact Info) Description 01/24/2024 11:51 AM EDT - 01/24/2024 11:59 PM EDT Hospital Encounter XRay at [address] [place] [address] Cody Martinez MD [facility] [address] [place] [address] ROCHA (dyspnea on exertion) Discharge Disposition: Home [...] 5 02/03/2020 celecoxib (CeleBREX) 100 mg Capsule Take 200 mg by mouth 2 times daily. 01/16/2020 MECLIZINE HCL (MECLIZINE [...] 9:40 AM EDT Office Visit Cardiology at [address] [phone] Cody Martinez MD [facility] [place] [address] 10/22/2024 10:30 AM EST Office Visit [place] [address] Marialuisa Peres MD [facility] [address] documented as of this encounter Procedures Procedure Name Priority Date/Time Associated Diagnosis Comments XR CHEST PA AND LATERAL Routine 01/24/2024 12:02 PM EDT ROCHA (dyspnea on exertion) documented in this encounter Results * XR Chest PA & Lateral (Generic) (01/24/2024 12:02 PM EDT) [employer] WORKSTATION ID [id number] [facility] Anatomical Region Laterality Modality Chest N/A Digital [...] who have questions please contact the health neurocritical care physician that requested your imaging first. ? Electronically signed by: Rossi Olsen MD, [facility] ??([phone]), at 01/24/2024 2:10 PM Narrative 01/24/2024 2:10 [...] patients who have questions please contactthe health neurocritical care physician that requested your imaging first. Electronically signed by: Rossi Olsen MD, [facility]([phone]), at 01/24/2024 2:10 PM Cody Martinez MD IMG DX ORDERABLES documented in this encounter Visit Diagnoses Diagnosis ROCHA (dyspnea on exertion) Other dyspnea and respiratory abnormality documented in this encounter Care Teams [employer] Principal Relationship Specialty Start Date End Date Kerry Ascencio PA [address] [place] [address] [place] [address] PCP - General Internal Medicine 01/29/21 documented as of this encounter
--- OUTSIDE RECORDS SUMMARY | 2024-06-27 17:00 | XMS_ITS | Encounter Summary ---
Author Organization [facility] Address [address] [place] [address] Care Team Providers Care Regulatory Affairs Director Name Role Phone Unavailable Primary Care Provider Unavailabl e Encounter Details Date Type Department Care Team (Late st Contact Info) Description 10/04/2001 Results Only [facility] - Maple conversion [address] [place] [address] Kevin Jiménez MD [address] [place] [address] [address] [phone] Social History Tobacco Use Types Packs/Day Years [...] Jiménez MD PATHOLOGY ORDERABLES SRINI MARTINES [address] [place] [address] documented in this encounter Visit Diagnoses Not on filedocumented in this encounter
--- OUTSIDE RECORDS SUMMARY | 2024-06-27 17:00 | XMS_ITS | Encounter Summary ---
Author Organization [facility] Address [address] [place] [address] Care Team Providers Care Oceanography Professor Name Role Phone Unavailable Primary Care Provider Unavailabl e Encounter Details Date Type Department Care Team (Late st Contact Info) Description 10/23/2005 Results Only [facility] - Maple conversion [address] [place] [address] Kevin Jiménez MD [address] [place] [address] [phone] Social History Tobacco Use Types Packs/Day Years [...] ? AGATHA YI ? Accession #: ? [id number] : ? 1960 (Age: 45) ??F ?Collect Date: ? 10/23/2005 Location: ? [facility] ? Receive Date: ? 10/24/2005 Provider: ?KEVIN JIMÉNEZ MD Copy to: ? Specimen/Source: ?ThinPrep Pap Test, Cervix/Endocervix, processed on [employer] ThinPrep Imaging System, with manual evaluation Last Menstrual Period: ? 10/21/05 Hormonal/Contracep tive Status: ? Intrauterine device: In place Other: ? Additional clinical information: 2003 [facility] nl., fibroid uterus ? SPECIMEN ADEQUACY ? Satisfactory for Evaluation - transformation zone component present - scant squamous epithelial component secondary to excessive blood GENERAL CATEGORIZATION ? Negative for Intraepithelial Lesion or Malignancy ? Document reviewed and electronically signed by: ? CARL Quinones(ASCP) ? Report Date: ??10/25/2005 10:39 End of Report SRINI MARTINES 10/23/2005 10/24/2005 Kevin Jiménez MD PATHOLOGY ORDERABLES SRINI MARTINES [address] [place] [address] documented in this encounter Visit Diagnoses Not on filedocumented in this encounter
--- OUTSIDE RECORDS SUMMARY | 2024-06-27 17:00 | XMS_ITS | Encounter Summary ---
[place] [address] Care Team Providers Care Die Holder Name Role Phone Kerry Ascencio Primary Care Provider + Encounter Details Date Type Department Care Team (Late st Contact Info) Description 06/27/2024 Telephone Cardiology at [address] [phone] Nayla Burnett, RN Social History Tobacco Use Types Packs/Day Years Used Date Smoking Tobacco: Former Cigarettes 1983 Smokeless Tobacco: Never Alcohol Use Standard Drinks/Week Comments Never 0 (1 standard drink = 0.6 oz pur e alcohol) Sex and Gender Information Value Date Recorded Sex Assigned at Not on file Gender Identity Not on file Sexual Orientation Not on file documented as of this encounter Miscellaneous Notes * Telephone Encounter - Nayla Burnett, RN - 06/27/2024 3:54 PM EDT VM from patient reporting chest, back, and neck pain. TC to patient who states just before 8 am this morning she went to reach for something and felt a sharp 8/10 pain over her left back shoulder blade area. roughly 10 minutes later she started feeling 8/10 sharp pain over her breastbone area. Patient continued to try and ignore the pain. Drove to her [id number] who checked her BP, which was 140/80s. Over the next few hours she tried several tums and declined her family's request she go to the ER. States pain is still present over breast bone and left back/shoulder blade area, now 6-7/10, her left arm feels weak, and her neck is stiff. Patient does not have nitro. Recommended patient call 911 immediately. Patient declined and asked if she could drive herself. Instructed patient she should NOT drive herself as that could be dangerous to not only herself, but anyone else on the road. Patient verbalized understanding and states she will have her son-in-law drive her to [facility] immediately. Patient is scheduled with Dr. Martinez on Saturday 06/30. Nayla Burnett RN [facility] Team Nurse [phone] documented in this encounter Plan of Treatment Upcoming Encounters Date Type Department Care Team (Late st Contact Info) Description 06/30/2024 9:40 AM EDT Office Visit Cardiology at [address] [phone] Cody Martinez MD [facility] [place] [address] 10/22/2024 10:30 AM EST Office Visit [place] [address] Marialuisa Peres MD [facility] [place] [address] documented as of this encounter Visit Diagnoses Not on filedocumented in this encounter Care Teams Die Holder Relationship Specialty Start Date End Date Kerry Ascencio PA [address] [place] [address] JENI MUNOZ [address] PCP - General Internal Medicine 01/29/21 documented as of this encounter
--- OUTSIDE RECORDS SUMMARY | 2024-06-27 17:00 | XMS_ITS | Encounter Summary ---
Author Organization [facility] Address [address] [place] [address] Care Team Providers Care Electrical Tests Supervisor Name Role Phone Unavailable Primary Care Provider Unavailabl e Encounter Details Date Type Department Care Team (Late st Contact Info) Description 10/25/2006 Results Only [facility] - Maple conversion [address] [place] [address] Kevin Jiménez MD [address] [place] [address] [address] [phone] Social History Tobacco Use Types Packs/Day Years [...] ? AGATHA YI ? Accession #: ? [id number] : ? 1960 (Age: 46) ??F ?Collect Date: ? 10/25/2006 Location: ? [facility] ? Receive Date: ? 10/26/2006 Provider: ?KEVIN JIMÉNEZ MD Copy to: ? Specimen/Source: ?ThinPrep Pap Test, Cervix/Endocervix, processed on [employer] ThinPrep Imaging System, with manual evaluation Last [...] Jiménez MD PATHOLOGY ORDERABLES Performing Organization Address City/State/[facility] Co de Phone Number SRINI MARTINES [address] [place] [address] documented in this encounter Visit Diagnoses Not on filedocumented in this encounter
--- OUTSIDE RECORDS SUMMARY | 2024-06-27 17:00 | XMS_ITS | Encounter Summary ---
Author Organization [facility] Address [address] [place] [address] Care Team Providers Care Sports Media Name Role Phone Jennifer Fabian PAYROLL CLERK Primary Care Provider [phone] Encounter Details Date Type Department Care Team (Latest Contact Info) Description 12/15/2016 16:14 EDT - 12/15/2016 23:59 EDT Hospital Encounter [address] [address] Unknown, Provider, Discharge Disposition: Home or Self Care Social History Tobacco Use Types Packs/Day Years Used Date Smoking Tobacco: Never Assessed Sex and Gender Information Value Date Recorded Sex Assigned at Not on file Gender Identity Not on file Sexual Orientation Not on file documented as of this encounter Discharge Disposition Disposition Code Departure Means Destination Home or Self Detention documented in this encounter Plan of Treatment Not on file documented as of this encounter Visit Diagnoses Not on filedocumented in this encounter Care Teams Sports Media Relationship Specialty Start Date End Date Jennifer Fabian NP PCP - General 02/04/16 08/21/18 documented as of this encounter
--- OUTSIDE RECORDS SUMMARY | 2024-06-27 17:00 | XMS_ITS | Encounter Summary ---
Author Organization [facility] Address [address] [place] [address] Care Team Providers Care Ware Finisher Name Role Phone Unknown, Provider Primary Care Provider [phone] Encounter Details Date Type Department Care Team (Late st Contact Info) Description 02/01/[address] [facility] [phone] Chuy Boyd, DO [address] [place] [address] Social History Tobacco Use Types [...] ? AGATHA YI ? Accession #: ? [id number] ? : ? 1960 (Age: 55) ??F ? Collect Date: ? 02/01/2016 ? Location: ? [facility] ? Receive Date: ? 02/01/2016 ? Provider: CHUY BOYD DO Copy to: SERINA PRADHAN LEAD PRESSMAN ? Final Pathologic Diagnosis: GALLBLADDER, CHOLECYSTECTOMY: - [...] blue. No choleliths are present. ? Two retention representative sections and the inked en face cystic duct margin are submitted in 1. Lelia Hwang 02/02/2016 11:19 AM End of Report [facility] 02/01/2016 20:4 0 EDT 02/01/2016 20:40 EDT Chuy Boyd DO PATHOLOGY ORDERABLES [facility] [address] [place] [address] documented in this encounter Visit Diagnoses Not on filedocumented in this encounter Care Teams Ware Finisher Relationship Specialty Start Date End Date Unknown, Provider, PCP - General 07/24/15 02/03/16 documented as of this encounter
--- OUTSIDE RECORDS SUMMARY | 2024-06-27 17:00 | XMS_ITS | Encounter Summary ---
Author Organization [facility] Address [facility] [place] [address] Care Team Providers Care Educational Coordinator Name Role Phone Kerry Ascencio Primary Care Provider + Encounter Details Date Type Department Care Team (Late st Contact Info) Description 01/24/2024 11:20 AM EDT Office Visit Cardiology at [address] [phone] Cody Martinez MD [facility] [place] [address] ROCHA (dyspnea on exertion) Social History Tobacco [...] original note were not included. [facility] [place] [address] CARDIOLOGY OUTPATIENT FOLLOW-UP NOTE Agatha Yi [id number] PCP: GENE Crews 01/24/2024 PRIMARY CARE PROVIDER: [...] chest pain Abnormal nuclear stress test at [facility] Heart catheterization [facility] November 06, 2017 [...] 9:40 AM EDT Office Visit Cardiology at [address] [phone] Cody Martinez MD [facility] [place] [address] 10/22/2024 10:30 AM EST Office Visit [place] [address] Marialuisa Peres MD [facility] FAMILY MEDICINE [place], [place] [phone] documented as of this encounter Procedures Procedure Name Priority Date/Time Associated Diagnosis Comments PRO-BRAIN NATRIURETIC PEPTIDE Routine 01/24/2024 12:32 PM EDT ROCHA (dyspnea on exertion) documented in this encounter Results * pro-Brain Natriuretic Peptide (01/24/2024 12:32 PM EDT) NT-proBNP 74 <=124 pg/mL [facility] Blood 01/24/2024 12:3 2 PM EDT 01/24/2024 12:41 PM EDT Narrative Resulting Agency Comment Spec In Lab Cody Martinez MD CHEMISTRY ORDERABLES [facility] [place] [address] * XR Chest PA & Lateral (Generic) (01/24/2024 12:02 PM EDT) WORKSTATION ID [id number] RAD Anatomical Region Laterality Modality Chest N/A [...] have questions please contact the health rn critical care that requested your imaging first. ? Narrative [...] patients who have questions please contactthe health rn critical care that requested your imaging first. Cody Martinez MD IMG DX ORDERABLES documented in this encounter Visit Diagnoses Diagnosis ROCHA (dyspnea on exertion) Other dyspnea and respiratory abnormality ROCHA (dyspnea on exertion) Other dyspnea and respiratory abnormality documented in this encounter Care Teams Educational Coordinator Relationship Specialty Start Date End Date Kerry Ascencio PA [address] [place] [address] [place] [address] PCP - General Internal Medicine 01/29/21 documented as of this encounter
--- OUTSIDE RECORDS SUMMARY | 2024-06-27 17:00 | XMS_ITS | Encounter Summary ---
Author Organization [facility] Address [address] [place] [address] Care Team Providers Care Production Trainer Name Role Phone Serina Fabian NP Primary Care Provider [phone] Encounter Details Date Type Department Care Team (Late st Contact Info) Description 12/15/2016 Results Only [facility] [phone] Tuan Pitt PA [address] [place] [address] [place] [address] Social History Tobacco Use Types Packs/Day Years [...] ? AGATHA YI ? Accession #: ? [id number] ? : ? 1960 (Age: 56) ??F ? Collect Date: ? 12/15/2016 ? Location: ? [facility] ? Receive Date: ? 12/16/2016 ? Provider: TUAN MILLS Copy to: SERINA PRADHAN BANKMAN ? Final Pathologic Diagnosis: SKIN OF ARM, [...] 12/18/2016 4:41 PM End of Report [facility] 12/15/2016 13:1 9 EDT 12/16/2016 13:19 EDT Tuan MILLS PATHOLOGY ORDERABLES [facility] [address] [place] [address] documented in this encounter Visit Diagnoses Not on filedocumented in this encounter Care Teams Production Trainer Relationship Specialty Start Date End Date Serina Fabian, ANTONIO PCP - General 02/04/16 08/21/18 documented as of this encounter
--- OUTSIDE RECORDS SUMMARY | 2024-06-27 17:00 | XMS_ITS | Encounter Summary ---
Author Organization [facility] Address [address] [place] [address] Care Team Providers Care Associate Relations Specialist Name Role Phone Kerry Ascencio Primary Care Provider + Encounter Details Date Type Department Care Team (Late st Contact Info) Description 10/10/2022 Lab Requisition [facility] Pathology & Laboratory Medicine - [address] [phone] Outr Resulting Lab, Provider Social History Tobacco [...] 2.1 See Note mg/dL 10/11/2022 9:23 EST [facility] Comment: NOTE: Reference range not established Magnesium, Urine 24 hr 17.9 12.0 - 192.0 mg/24hrs 10/11/2022 9:23 EST [facility] Urine Volume 850 mL 10/11/2022 9:23 EST [facility] Urine Collection Period 24.0 Hours 10/11/2022 9:23 EST [facility] Urine 24 HOUR URINE SPECIMEN / Unknown 10/10/2022 7:00 EST 10/10/2022 21:39 EST Provider Outr Resulting Lab URINALYSIS O RDERABLES Performing Organization Address City/State/[facility] Co de Phone Number [facility] [address] [place] [address] documented in this encounter Visit Diagnoses Not on filedocumented in this encounter Care Teams Associate Relations Specialist Relationship Specialty Start Date End Date Kerry Ascencio PA [address] [place] [address] [place] [address] PCP - General 12/16/21 documented as of this encounter
--- OUTSIDE RECORDS SUMMARY | 2024-06-27 17:00 | XMS_ITS | Encounter Summary ---
Author Organization [facility] Address [address] [place] [address] Care Team Providers Care Bran Mixer Name Role Phone Kerry Ascencio Primary Care Provider + Encounter Details Date Type Department Care Team (Late st Contact Info) Description 10/10/[address] [facility] Pathology & Laboratory Medicine - [address] [phone] Outr Resulting Lab, Provider Social History Tobacco [...] 51.1 See Note mg/dL 10/11/2022 9:21 EST [facility] Comment: NOTE: Reference range not established Uric Acid, Urine 24 hr 434 250 - 750 mg/24hrs 10/11/2022 9:21 EST [facility] Urine Volume 850 mL 10/11/2022 9:21 EST [facility] Urine Collection Period 24.0 Hours 10/11/2022 9:21 EST [facility] Urine 24 HOUR URINE SPECIMEN / Unknown 10/10/2022 7:00 EST 10/10/2022 21:39 EST Provider Outr Resulting Lab URINALYSIS O RDERABLES Performing Organization Address City/State/[facility] Co de Phone Number [facility] [address] [place] [address] documented in this encounter Visit Diagnoses Not on filedocumented in this encounter Care Teams Bran Mixer Relationship Specialty Start Date End Date Kerry Ascencio PA [address] [place] [phone] PCP - General 12/16/21 documented as of this encounter
--- OUTSIDE RECORDS SUMMARY | 2024-06-27 17:00 | XMS_ITS | Encounter Summary ---
Author Organization [facility] Address [address] [place] [address] Care Team Providers Care Farm Equipment Service Technician Name Role Phone Kerry Ascencio Primary Care Provider + Encounter Details Date Type Department Care Team (Late st Contact Info) Description 09/30/2023 Lab Requisition [facility] Pathology & Laboratory Medicine - [address] [address] Outr Resulting Lab, Provider Social History Tobacco [...] 2.3 See Note mg/dL 10/01/2023 10:04 EST [facility] Comment: NOTE: Reference range not established Magnesium, Urine 24 hr 10/01/2023 10:04 [facility] Comment: Unable to calculate 24 hour collection is outside of the 22-26 hour acceptability window. Urine Volume 600 mL 10/01/2023 10:04 [facility] Urine Collection Period 21.0 Hours 10/01/2023 10:04 [facility] Urine 24 HOUR URINE SPECIMEN / Unknown 09/27/2023 5:00 EST 09/30/2023 15:51 EST Provider Outr Resulting Lab URINALYSIS O RDERABLES Performing Organization Address [facility] Co de Phone Number [facility] [address] [place] [address] * CALCIUM, URINE 24HR (09/27/2023 5:00 EST) Calcium, Urine 14.4 See Note mg/dL 10/01/2023 9:49 [facility] Comment: NOTE: Reference range not established 24 hour collection is outside of the 22-26 hour acceptability window. Calcium, Urine 24 hr 10/01/2023 9:49 [facility] Comment:Unable to calculate Urine Volume 600 mL 10/01/2023 9:49 [facility] Urine Collection Period 21.0 Hours 10/01/2023 9:49 [facility] Urine 24 HOUR URINE SPECIMEN / Unknown 09/27/2023 5:00 EST 09/30/2023 15:51 EST Provider Outr Resulting Lab URINALYSIS O RDERABLES Performing Organization Address City/[facility] Co de Phone Number [facility] [address] [place] [address] documented in this encounter Visit Diagnoses Not on filedocumented in this encounter Care Teams Farm Equipment Service Technician Relationship Specialty Start Date End Date Kerry Ascencio PA [address] [place] [address] [place] [address] PCP - General 12/16/21 documented as of this encounter
--- OUTSIDE RECORDS SUMMARY | 2024-06-27 17:00 | XMS_ITS | Clinical Summary ---
Author Organization [facility] [place] [address] Care Team Providers Care Bowling Alley Refinisher Name Role Phone Kerry Ascencio Primary Care Provider + Allergies Active Allergy Reactions Criticality Noted Date Comments Adhesive Medium 01/04/2021 Other reaction(s): RASH AND SWELLING Alcohol Medium 01/04/2021 Other reaction(s): RASH Amoxicillin 08/24/2016 Benzoin Rash Low 01/04/2021 Other reaction(s): Skin Rash Cat Dander Low 01/04/2021 Other reaction(s): WATERY EYES Dog Dander 01/04/2021 Other reaction(s): WATERY EYES Flu Vac Of1421-19(36mo,Up)(Pf) Rash 10/11/2023 Gum [place] Medium 01/04/2021 Other reaction(s): RASH Hydrocodone Medium [...] unknown Active celecoxib (CeleBREX) 100 mg Capsule Take 200 mg by mouth 2 times daily. 01/16/2020 Active nitroGLYcerin (Nitrostat) [...] UNDER THE SKIN ONCE MONTHLY 01/21/2024 Active potassium citrate SR (Urocit-K 10) 10 mEq (1,080 mg) ER tablet Take 10 mEq by mouth 2 times daily (with meals). Active ondansetron (Zofran) 4 mg tablet Take 1 tablet by mouth every 8 hours as needed for Nausea. 40 tablet 1 06/13/2024 Active Active Problems Problem Noted Date Diagnosed [...] pain ?? Abnormal nuclear stress test at [facility] ?? Heart catheterization [facility] November 06, 2017 showing LVEDP of 20 mmHg; coronary angiography showing normal left main, mild diffuse disease in the LAD, normal circumflex, and mild diffuse disease in the RCA ?? Management with aspirin and atorvastatin Benign paroxysmal positional vertigo 11/11/2018 Seborrheic keratosis 12/15/2016 Uterine leiomyoma 04/28/2008 Encounters Date Type Department Care Team Description 06/27/2024 Telephone Cardiology at [address] [phone] Nayla Burnett, RN 06/13/2024 11:00 AM EDT Office Visit Gastroenterology at [place] [phone] Kelly Miller APRN Hepatic fibrosis; Prediabetes; Metabolic dysfunction-associated steatohepatitis (MASH) 06/13/2024 10:00 AM EDT Laboratory Appointment Lab [address] [phone] Prediabetes; Metabolic dysfunction-associated steatohepatitis (MASH); Hepatic fibrosis 06/13/2024 Travel 06/12/2024 Travel 04/29/2024 Telephone [place] [address] Mar Singh RN 04/08/2024 Telephone Cardiology at [address] [phone] Nayla Burnett, data capture specialist (Sharp chest pain over weeks) from Last 3 Months Family History Medical [...] Sign Reading Time Taken Comments Blood Pressure 128/55 06/13/2024 11:06 AM EDT Pulse 67 06/13/2024 11:06 AM EDT Temperature 36.7 ??C (98.1 ??F) 02/20/2022 3:15 PM ED T Respiratory Rate 15 02/20/2022 3:07 PM EDT Oxygen Saturation 96% 01/24/2024 11:26 AM EDT Inhaled Oxygen Concentration - - Weight 86 kg (189 lb 9.6 oz) 06/13/2024 11:06 AM EDT Height 154.9 cm (5' 1) 06/13/2024 11:06 AM EDT Body Mass Index 35.82 06/13/2024 11:06 AM EDT Plan of Treatment Upcoming Encounters Date Type Department Care Team (Late st Contact Info) Description 06/30/2024 9:40 AM EDT Office Visit Cardiology at [address] [phone] Cody Martinez MD [facility] [place] [address] 10/22/2024 10:30 AM EST Office Visit [facility] [place] [address] Marialuisa Peres MD [facility] [place] [address] Health Maintenance Due Date Last Done Comments CT Colonography 1960 Colonoscopy 1960 Colorectal Cancer Screening 1960 FIT DNA 1960 FIT 1960 Sigmoidoscopy (10 year) with FIT yearly 1960 Sigmoidoscopy 1960 Pneumococcal Vaccine: At-Ris k 5-64yrs (1 of 2 - PCV) 1966 HIV screen 1978 Tetanus/Diphtheria/Pertussis Vaccines (1 - Tdap) 1979 HPV test 1990 PAP Smear 1990 Breast Cancer Share Decision Needed 2000 Breast Cancer screening 2000 Zoster vaccine (1 of 2) 2010 Advance Directive 2015 Covid-19 Vaccine (3 - 2022-2 4 season) 2024 07/05/2021, 06/03/2021 Influenza (Flu) vaccine (1 o f 1 - Influenza standard series) 05/18/2024 Diabetes Screening (HgbA1C o r Glucose) 06/13/2027 06/13/2024, 06/13/2024, 12/12/2023, Additional history exists Hepatitis C Screening Completed 05/30/2023 Medical Devices Implanted Type Area Manager Inventory Control Device Identifier Shelf Expiration Date Model / Serial / Lot Breast Clip-01/07/20 Implanted: by Karen Julian MD (Quantity not on file) Breast Clip Right: Breast Bard - 0614 [employer] ULTRACOR BREAST TISSUE MARKER ULTRASOUND ENHANCDE FRANCISCA / [id number] / Description:FRANCISCA Lens Iol [id number] +22.0d 6.0x13.0 Monofocal Post Biconvex ([id number]) (Autoreq) - [id number] Implanted:Qt y: 1 on 02/20/2022 by Ant Rhoades MD at [facility] IMPLANTS Right: Eye [facility] [id number] 12/14/2026 [id number] / [id number] / Procedures Procedure Name Priority Date/Time Associated Diagnosis Comments HEMOGLOBIN A1C Add-On 06/13/2024 8:56 AM EDT Hepatic fibrosis Prediabetes Metabolic dysfunction-associated steatohepatitis (MASH) AFP TUMOR MARKER Routine 06/13/2024 8:56 AM EDT Prediabetes Metabolic dysfunction-associated steatohepatitis (MASH) Hepatic fibrosis PROTHROMBIN TIME Routine 06/13/2024 8:56 AM EDT Prediabetes Metabolic dysfunction-associated steatohepatitis (MASH) Hepatic fibrosis COMPREHENSIVE METABOLIC PANEL Routine 06/13/2024 8:56 AM EDT Prediabetes Metabolic dysfunction-associated steatohepatitis (MASH) Hepatic fibrosis CBC (WITH DIFF) Routine 06/13/2024 8:56 AM EDT Prediabetes Metabolic dysfunction-associated steatohepatitis (MASH) Hepatic fibrosis LAB SCAN 04/17/2024 12:00 AM EDT ULTRASOUND SCAN (SCAN) 04/17/2024 12:00 AM EDT HEPATITIS C ANTIBODY Routine 05/30/2023 10:12 AM EDT Hepatic steatosis Prediabetes Elevated liver function tests Hepatic fibrosis from Last 3 Months or Most Recently Relevant to Health Maintenance Results * AFP tumor marker (06/13/2024 8:56 AM EDT) Pathologist [facility] Alpha Fetoprotein Tumor Marker 4.7 <=8.3 ng/ml 06/13/2024 4:29 PM EDT [facility] Comment:This result was gene rated using a Carline Jackelyn immunoassay. Results obtained from other methods or manufacturers cannot be used interchangeably with this method. Blood VENOUS BLOOD SPECIMEN / Unknown Venipuncture / Unknown 06/13/2024 8:56 AM EDT 06/13/2024 8:56 AM EDT Kelly Miller SECURITY AND PRIVACY CONSULTANT CHEMISTRY ORDERABL ES [facility] [place] [address] * (ABNORMAL) Prothrombin Time (06/13/2024 8:56 AM EDT) Pathologist [facility] Prothrombin Time 12.7(H) 9.4 - 12.5 sec 06/13/2024 9:15 AM EDT [facility] International Normalization Ratio 1.1 <=4.9 06/13/2024 9:15 AM EDT [facility] Comment: An INR < 2.0 [...] EDT 06/13/2024 8:56 AM EDT Kelly Miller SECURITY AND PRIVACY CONSULTANT HEMATOLOGY ORDERAB LES [facility] [place] [address] * CBC (with Diff) (06/13/2024 8:56 AM EDT) White Blood Cell 6.89 4.00 - 9.50 x10(3)/mcL 06/13/2024 9:13 AM EDT [facility] Red Blood Cell 4.74 4.00 - 5.21 x10(6)/mcL 06/13/2024 9:13 AM EDT [facility] Hemoglobin 14.4 11.7 - 15.5 g/dL 06/13/2024 9:13 AM [facility] Hematocrit 43.7 35.7 - 45.8 % 06/13/2024 9:13 AM [facility] Mean Cell Volume 92.2 82.6 - 94.4 fL 06/13/2024 9:13 AM [facility] Mean Cell Hemoglobin 30.4 27.1 - 32.0 pg 06/13/2024 9:13 AM [facility] Mean Cell Hemoglobin Concentration 33.0 31.7 - 35.0 g/dL 06/13/2024 9:13 AM [facility] Platelet 193 145 - 357 x10(3)/mcL 06/13/2024 9:13 AM [facility] Mean Platelet Volume 12.7 7.6 - 12.9 fL 06/13/2024 9:13 AM [facility] RDW Standard Deviation 45.6 37.0 - 46.0 fL 06/13/2024 9:13 AM [facility] RDW coefficient of variation 13.4 11.5 - 14.1 % 06/13/2024 9:13 AM [facility] NRBC% auto 0.0 % 06/13/2024 9:13 AM [facility] NRBC Absolute <0.01 <0.01 x10(3)/mcL 06/13/2024 9:13 AM [facility] Neutrophil % 56.4 % 06/13/2024 9:13 AM [facility] Neutrophil Absolute (ANC) - Automated 3.89 1.70 - 6.10 x10(3)/mcL 06/13/2024 9:13 AM [facility] Lymph % 31.5 % 06/13/2024 9:13 AM [facility] Lymph Absolute 2.17 0.90 - 3.20 x10(3)/mcL 06/13/2024 9:13 AM [facility] Monocyte % 7.3 % 06/13/2024 9:13 AM [facility] Monocyte Absolute 0.50 0.30 - 0.90 x10(3)/mcL 06/13/2024 9:13 AM [facility] Eos % 3.8 % 06/13/2024 9:13 AM [facility] Eos Absolute 0.26 0.00 - 0.40 x10(3)/mcL 06/13/2024 9:13 AM [facility] Basophil % 0.9 % 06/13/2024 9:13 AM [facility] Baso Absolute 0.06 0.00 - 0.10 x10(3)/mcL 06/13/2024 9:13 AM [facility] Immature Gran % 0.1 % 9:13 AM EDT [facility] Immature Gran Absolute <0.04 0.00 - 0.04 x10(3)/mcL 06/13/2024 9:13 AM EDT [facility] Blood VENOUS BLOOD SPECIMEN / Unknown Venipuncture / Unknown 06/13/2024 8:56 AM EDT 06/13/2024 8:56 AM EDT Kelly Miller SECURITY AND PRIVACY CONSULTANT HEMATOLOGY ORDERAB LES Performing Organization Address City/[facility]/ZIP Co de Phone Number [facility] [place] [address] * (ABNORMAL) Hemoglobin A1c (06/13/2024 8:56 AM EDT) Hemoglobin A1c 6.3(H) 4.3 - 5.6 % 06/13/2024 12:27 PM EDT [facility] Comment: Per ADA guidelines, without [...] red blood cell turnover may not be delivery representative of glycemic control. Reference Interval: 4.3 - 5.6% 5.7 - 6.4%: Consistent with prediabetes >=6.5%: Consistent with diagnosis of diabetes mellitus Estimated Average Glucose 134 mg/dL 06/13/2024 12:27 PM EDT [facility] Blood VENOUS BLOOD SPECIMEN / Unknown Venipuncture / Unknown 06/13/2024 8:56 AM EDT 06/13/2024 8:56 AM EDT Kelly Miller SECURITY AND PRIVACY CONSULTANT CHEMISTRY ORDERABL ES Performing Organization Address City/[facility]/ZIP Co de Phone Number [facility] [place] [address] * (ABNORMAL) Comprehensive metabolic panel (non-fasting) (06/13/2024 8:56 AM ED) Glucose 168 65 - 199 mg/dL 06/13/2024 9:32 AM [facility] Comment:Glucose Concentratio n >=200 mg/dL plus symptoms is consistent with Diabetes Mellitus. Blood Urea Nitrogen 14 8 - 18 mg/dL 06/13/2024 9:32 AM [facility] Creatinine 0.77 0.70 - 1.20 mg/dL 06/13/2024 9:32 AM [facility] Sodium 138 135 - 145 mMol/L 06/13/2024 9:32 AM [facility] Potassium 3.6 3.5 - 5.0 mMol/L 06/13/2024 9:32 AM [facility] Chloride 104 98 - 107 mMol/L 06/13/2024 9:32 AM [facility] Carbon Dioxide 22 22 - 31 mMol/L 06/13/2024 9:32 AM [facility] Anion Gap 12 5 - 15 mMol/L 06/13/2024 9:32 AM [facility] Calcium 9.2 8.5 - 10.5 mg/dL 06/13/2024 9:32 AM [facility] Protein, Total 7.2 6.1 - 8.0 g/dL 06/13/2024 9:32 AM [facility] Albumin 4.0 3.2 - 5.2 g/dL 06/13/2024 9:32 AM [facility] Aspartate Aminotransferase 45(H) <=30 unit/L 06/13/2024 9:32 AM [facility] Alanine Aminotransferase 32(H) 0 - 30 unit/L 06/13/2024 9:32 AM [facility] Alkaline Phosphatase 140(H) 35 - 105 unit/L 06/13/2024 9:32 AM [facility] Bilirubin, Total 0.7 <=1.3 mg/dL 06/13/2024 9:32 AM EDT [facility] Est Glomerular Filtration Rate - Female 86 mL/min/1. 73 m?? 06/13/2024 9:32 AM EDT [facility] Comment: This patient's [...] Foundation Fasting Status No 06/13/2024 9:32 AM EDT [facility] Blood VENOUS BLOOD SPECIMEN / Unknown Venipuncture / Unknown 06/13/2024 8:56 AM EDT 06/13/2024 8:56 AM EDT Kelly Miller SECURITY AND PRIVACY CONSULTANT CHEMISTRY ORDERABL ES [facility] [place] [address] * Scan Doc: Ultrasound (04/17/2024 12:00 AM EDT) Anatomical Region Laterality Modality Other Narrative 04/17/2024 12:00 AM EDT Ordered by an unspecified provider. Scanning Provider MEDIA MGR SCAN EXT O RDR/RSLT * Scan Doc: Lab (04/17/2024 12:00 AM EDT) Narrative 04/17/2024 12:00 AM EDT Ordered by an unspecified provider. Scanning Provider MEDIA MGR SCAN EXT O RDR/RSLT * Hepatitis C Antibody (05/30/2023 10:12 AM EDT) [facility] Signature Hepatitis C Antibody Negative Negative [facility] Blood 05/30/2023 10:1 2 AM EDT 05/30/2023 10:24 AM EDT Narrative Resulting Agency Comment Spec In Lab Kelly Miller SECURITY AND PRIVACY CONSULTANT CHEMISTRY ORDERABL ES [facility] [place] [address] from Last 3 Months or Most Recently Relevant to Health Maintenance Advance Directives * Full Code (Latest Code Status on File) Date Activated Date Inactivated Comments 11/06/2017 9:20 AM 11/06/2017 3:06 PM Question Answer Comments Does patient have capacity to make decision: Yes Care Teams Bowling Alley Refinisher Relationship Specialty Start Date End Date Kerry Ascencio PA [address] [place] [address] [place] [address] PCP - General Internal Medicine 01/29/21
--- OUTSIDE RECORDS SUMMARY | 2024-06-27 17:00 | XMS_ITS | Encounter Summary ---
Author Organization [facility] [place] [address] Care Team Providers Care Paper Reel Operator Name Role Phone Kerry Ascencio Primary Care Provider + Encounter Details Date Type Department Care Team (Latest Contact Info) Description 06/12/2024 Travel Social History Tobacco Use Types Packs/Day [...] 9:40 AM EDT Office Visit Cardiology at [address] [phone] Cody Martienz MD [facility] [place] [address] 10/22/2024 10:30 AM EST Office Visit Weight [place] [phone] Marialuisa Peres MD [facility] [place] [address] documented as of this encounter Visit Diagnoses Not on filedocumented in this encounter Care Teams Paper Reel Operator Relationship Specialty Start Date End Date Kerry Ascencio PA [address] [place] [address] [place] [address] PCP - General Internal Medicine 01/29/21 documented as of this encounter
--- OUTSIDE RECORDS SUMMARY | 2024-06-27 17:00 | XMS_ITS | Encounter Summary ---
Author Organization [facility] Address [address] [place] [address] Care Team Providers Care Manugrapher Name Role Phone Kerry Ascencio Primary Care Provider + Encounter Details Date Type Department Care Team (Late st Contact Info) Description 04/17/2022 Lab Requisition [facility] - [address] [address] Evonne Scales, DO [address] [place], [place] [id number] Encounter for other general examination Social History [...] explore management options, if applicable. 04/19/2022 12:02 [facility] Final Diagnosis A. SKIN OF ARM, RIGHT UPPER, EXCISIONAL BIOPSY: - Seborrheic keratosis. 04/19/2022 12:02 [facility] Attestation By the signature below, the attending physician certifies that they have 1) personally conducted a gross and/or microscopic examination of the described specimen(s), and/or personally interpreted the results of laboratory testing of the described specimen(s), and 2) personally rendered or confirmed the above diagnosis. 04/19/2022 12:02 [facility] at 1202 Microscopic Description The stratum corneum is thickened by laminated orthohyperkeratos is. The epidermis is hyperplastic with papillomatosis and acanthosis. There is formation of horn pseudocysts. The keratinocytes have a basaloid appearance with round regular nuclei and a moderate amount of cytoplasm. 04/19/2022 12:02 [facility] Clinical History Right upper arm skin lesion 04/19/2022 12:02 [facility] Gross Description A. [...] sections. GENE ARGUETA(ASCP) 04/18/2022 10:33 04/19/2022 12:02 [facility] Performing Lab [facility] 04/19/2022 12:02 [facility] Scanned Images 04/19/2022 12:02 [facility] Tissue TISSUE SPECIMEN FROM SKIN / Unknown 04/17/2022 13:40 EDT 04/17/2022 22:43 EDT Evonne Scales DO PATHOLOGY ORDERABLES [facility] [address] [place] [address] documented in this encounter Visit Diagnoses Diagnosis Encounter for other general examination documented in this encounter Care Teams Manugrapher Relationship Specialty Start Date End Date Kerry Ascencio PA [address] [place] [address] [place] [phone] PCP - General 12/16/21 documented as of this encounter
--- OUTSIDE RECORDS SUMMARY | 2024-06-27 17:00 | XMS_ITS | Encounter Summary ---
Author Organization [facility] Address [facility] [place] [address] Care Team Providers Care Industrial Mechanic Name Role Phone Kerry Ascencio Primary Care Provider + Reason for Visit * Reason Onset Date Comments Medication Refill 12/24/2023 Encounter Details Date Type Department Care Team (Late st Contact Info) Description 12/24/2023 Refill Cardiology at [address] [phone] Philippe Cardenas PA [facility] [place] [address] Medication Refill Social History Tobacco Use Types [...] 9:40 AM EDT Office Visit Cardiology at [address] [phone] Cody Martinez MD [facility] [place] [address] 10/22/2024 10:30 AM EST Office Visit [place] [address] Marialuisa Peres MD [facility] [place] [address] documented as of this encounter Visit Diagnoses Diagnosis SVT (supraventricular tachycardia) Other specified cardiac dysrhythmias documented in this encounter Care Teams Industrial Mechanic Relationship Specialty Start Date End Date Kerry Ascencio PA [address] [place] [address] [place] [address] PCP - General Internal Medicine 01/29/21 documented as of this encounter
--- OUTSIDE RECORDS SUMMARY | 2024-06-27 17:00 | XMS_ITS | Encounter Summary ---
Author Organization [facility] Address [facility] [place] [address] Care Team Providers Care Investor Relations Coordinator Name Role Phone Kerry Ascencio Primary Care Provider + Encounter Details Date Type Department Care Team (Latest Contact Info) Description 06/13/2024 11:00 AM EDT [place] [phone] Kelly Miller, HELP DESK SUPERVISOR [facility] [place] [address] Hepatic fibrosis; Prediabetes; Metabolic dysfunction-associated steatohepatitis (MASH) Social History Tobacco Use Types Packs/Day Years [...] Pulse 67 06/13/2024 11:06 AM EDT Temperature - - Respiratory Rate - - Oxygen Saturation - - Inhaled Oxygen Concentration - - Weight 86 kg (189 lb 9.6 oz) 06/13/2024 11:06 AM EDT Height 154.9 cm (5' 1) 06/13/2024 11:06 AM EDT Body Mass Index 35.82 06/13/2024 11:06 AM EDT documented in this encounter Progress Notes * Kelly Miller APRN - 06/13/2024 11:00 AM EDT Gastroenterology and Hepatology Follow Up Visit Patient: Agatha Yi : 1960 Provider: Kelly Miller APRN MSN History: Ms. Agatha Yi is a 64 y.o. 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 She has no new gi complaints at this visit. No jaundice No confusion Her A1C remains elevated at 6.3%. She is on metformin, but has not started a glp-1. Right sided discomfort is better with getting her bowels on a better scheduled. She is taking miralax one capful a day. Bowels moving every 1-2 days. No bleeding, no melena. No straining on miralax. Has had weight gain-Now 198 pounds. BMI [...] Current Outpatient Medications Medication Sig Dispense Refill potassium citrate SR (Urocit-K 10) 10 mEq (1,080 mg) ER tablet Take 10 mEq by mouth 2 times daily (with meals). Emgality Pen 120 mg/mL Pen Injector ADMINISTER 1 ML UNDER THE SKIN ONCE MONTHLY dilTIAZem CD (Cardizem CD) 240 mg CD (ER) 24 hr casule TAKE 1 CAPSULE BY MOUTH ONCE DAILY 90 capsule 3 rizatriptan (Maxalt) 5 mg tablet Take 5 mg by mouth as needed. mirabegron (Myrbetriq) 50 mg ER 24 hr tablet Take 50 mg by mouth daily. Overactive bladder. aspirin 81 mg Tablet, Chewable Take 81 mg by mouth daily. levothyroxine (Synthroid) 100 mcg Tablet 125 mcg daily. ezetimibe (Zetia) 10 mg Tablet Take 10 mg by mouth daily. celecoxib (CeleBREX) 100 mg Capsule Take 200 mg by mouth 2 times daily. MECLIZINE HCL (MECLIZINE ORAL) [...] needed. 0 citalopram (CELEXA) 20 mg tablet ondansetron (Zofran) 4 mg tablet Take 1 tablet by mouth every 8 hours as needed for Nausea. 40 tablet 1 gabapentin (Neurontin) 300 mg capsule Take 600 [...] SWELLING Alcohol Other reaction(s): RASH Gum [employer] Other reaction(s): RASH Hydrocodone Other reaction(s): PRURITIS Methyl Salicylate Other reaction(s): RASH Storax Other reaction(s): RASH Tetrabenazine Other reaction(s): RASH,HIVES Amoxicillin Dog Dander Other reaction(s): WATERY EYES Flu Vac [id number](36mo,Up)(Pf) Rash Milk Morphine Sulfate CIS - Nausea/Vomiting Oxycodone-Acetaminophen Itching CIS - Nausea/Vomiting Pollen Extracts Other reaction(s): watery eyes Tetanus And Diphtheria Toxoids, Adsorbed, Adult CIS - swelling Tetanus-Diphtheria Toxoids-Td Rash Benzoin Rash Other reaction(s): Skin Rash Cat Dander Other reaction(s): WATERY EYES PHYSICAL EXAMINATION: Vitals: 06/13/24 1106 BP: 128/55 BP Location (NBP): Right arm Patient Position: Sitting BP Cuff Sizes: Large Adult (32-43 cm) Pulse: 67 Weight: 86 kg (189 lb 9.6 oz) Height: 154.9 cm (5' 1) Body mass index is 35.82 kg/m??. Alert, and oriented. Easily converses with this resume writer. Comfortable wob in ra. Skin and sclera are nonicteric. No rashes on exposed skin. Normoactive bs x4. No ttp x 4. No lower extremity edema. PERTINENT LABS AND IMAGING: Lab Results Component Value Date WBC 6.89 06/13/2024 HGB 14.4 06/13/2024 HCT 43.7 06/13/2024 MCV 92.2 06/13/2024 Lab Results Component Value Date ALT 32 (H) 06/13/2024 AST 45 (H) 06/13/2024 ALKPHOS 140 (H) 06/13/2024 BILITOT 0.7 06/13/2024 Chemistry Component Value Date/Time NA 138 06/13/2024 0856 NA 139 12/12/2023 0929 K 3.6 06/13/2024 0856 K 4.1 12/12/2023 0929 CL 104 06/13/2024 0856 CL 103 12/12/2023 0929 CO2 22 06/13/2024 0856 CO2 25 12/12/2023 0929 BUN 14 06/13/2024 0856 BUN 13 12/12/2023 0929 CREATININE 0.77 06/13/2024 0856 CREATININE 0.89 12/12/2023 0929 Component Value Date/Time CALCIUM 9.2 06/13/2024 0856 CALCIUM 9.7 12/12/2023 0929 ALKPHOS 140 (H) 06/13/2024 0856 ALKPHOS 148 (H) 12/12/2023 0929 AST 45 (H) 06/13/2024 0856 AST 47 (H) 12/12/2023 0929 ALT 32 (H) 06/13/2024 0856 ALT 30 12/12/2023 0929 BILITOT 0.7 06/13/2024 0856 BILITOT 0.7 12/12/2023 0929 MELD 3.0: 8 at 06/13/2024 8:56 AM MELD-Na: 7 at 06/13/2024 8:56 AM Calculated from: Serum Creatinine: 0.77 mg/dL (Using min of 1 mg/dL) at 06/13/2024 8:56 AM Serum Sodium: 138 mMol/L (Using max of 137 mMol/L) at 06/13/2024 8:56 AM Total Bilirubin: 0.7 mg/dL (Using min of 1 mg/dL) at 06/13/2024 8:56 AM Serum Albumin: 4.0 g/dL (Using max of 3.5 g/dL) at 06/13/2024 8:56 AM INR(ratio): 1.1 at 06/13/2024 8:56 AM Age at listing (hypothetical): 64 years Sex: Female at 06/13/2024 8:56 AM US in April at outside hospital with no hepatic lesions. IMPRESSION/PLAN: Agatha Yi is a 64 y.o. female with past medical hx to include, but not limited to, nonobstructive ASCVD by heart catheterization 10/2017, symptomatic SVT, hypertension, dyslipidemia, MOISES not on cpap here for follow up on MASH with stage 3 fibrosis. Unfortunately, her A1C continues to be uncontrolled. I strongly recocmend her PCP start a GLP-1 for weight loss, and for optimizing her diabetic control. We discussed that metabolic associated fatty liver disease (MASH, formerly KOROMA) is a liver manifestation of metabolic disease. Treatment is based in lifestyle modification and with weight weight loss there can be resolution of steatosis and regression of fibrosis in the liver. The goal is 10-15% total body weight loss, however with 5% of total body weight loss, 20% of people will have regressionof steatosis. With 10% total body weight loss 90% of people will have regression of steatosis and 45% will have regression of fibrosis. We discussed diet, physical activity, and potential medicationsas detailed below. Additionally, in people with MASH, the main cause of morbidity and mortality is cardiovascular disease so I encouraged the patient follow up with PCP to aggressively maximize theircardiovascular health. Lifestyle Recommendations: Diet Recommend low in saturated fats, minimizing added sugars and high fructose corn syrup, cuttingout any sweetened beverages, minimizing processed carbohydrates. Discussed Mediterranean diet. Exercise. Encouraged increased physical activity and movement. Aerobic or resistance training are both beneficial, but try to have some vigorous exercise included. Pharmacologic: Vitamin E. There is evidence that Vitamin E can reduce progression of fatty liver and I recommend this in people who do not have diabetes Pioglitazone. Evidence that this can decrease fibrosis however side effects can include weight gainand possible increase risk of bladder cancer. Consider if additional antihyperglycemics are needed,however would recommend Metformin and GLP-1 initially. GLP-1 (Semiglutide, Liraglutide Tirzepatide). There is evidence that these can lead to reduced steatosis in the liver, largely due to their benefit of weight loss. Statins - reduce stiffness of liver the liver, reduce risk of liver cancer, statin use overall reduces liver related mortality and safety is comparable to people without liver disease. Recommend use when indicated. Metformin- reduce liver stiffness, recommend for treatment of prediabetes or diabetes Aspirin - observational studies that aspirin use reduces prevalence and progression of MASLD. Recommend use if another indication for ASA therapy Will consider Rezdiffra at our next visit. Would prefer her to be on a glp-1 before starting rezdiffra. The patient was given my contact information and will call me with concerns or questions Total time spent on encounter today: Time spent reviewing records prior to this encounter: 5 minutes Time spent during encounter with patient including counselin minutes Time spent documenting encounter after office visit: 5 minutes Kelly Miller APRN MSN Section of [place]astroenter[place] [address] Cc: GENE Crews documented in this encounter Plan of Treatment Upcoming Encounters Date Type Department Care Team (Late st Contact Info) Description 06/30/2024 9:40 AM EDT Office Visit Cardiology at [address] [phone] Cody Martinez MD [facility] [place] [address] 10/22/2024 10:30 AM EST Office [place] [phone] Marialuisa Peres MD [facility] [place] [address] Scheduled Orders Name Type Priority Associated Diagnoses Orde r Schedule CBC (with Diff) Lab Routine Hepatic fibrosis Prediabetes Metabolic Dysfunction-Associated Steatohepatitis (Mash) Expected: 06/13/2024 (Approximate), Expires: 12/13/2024 Comprehensive metabolic panel Non-fasting Lab Routine Hepatic fibrosis Prediabetes Metabolic Dysfunction-Associated Steatohepatitis (Mash) Expected: 12/11/2024 (Approximate), Expires: 06/12/2025 Prothrombin Time Lab Routine Hepatic fibrosis Prediabetes Metabolic Dysfunction-Associated Steatohepatitis (Mash) Expected: 12/11/2024 (Approximate), Expires: 06/12/2025 AFP tumor marker Lab Routine Hepatic fibrosis Prediabetes Metabolic Dysfunction-Associated Steatohepatitis (Mash) Expected: 06/13/2024 (Approximate), Expires: 12/13/2024 US Abdomen Limited Hepatology Protocol Imaging Routine Hepatic fibrosis Prediabetes Metabolic Dysfunction-Associated Steatohepatitis (Mash) Expected: 12/11/2024 (Approximate), Expires: 06/12/2025 documented as of this encounter Results * (ABNORMAL) Hemoglobin A1c (06/13/2024 8:56 AM EDT) Hemoglobin A1c 6.3(H) 4.3 - 5.6 % 06/13/2024 12:27 PM EDT [facility] Comment: Per ADA guidelines, without clear [...] red blood cell turnover may not be credit representative of glycemic control. Reference Interval: 4.3 - 5.6% 5.7 - 6.4%: Consistent with prediabetes >=6.5%: Consistent with diagnosis of diabetes mellitus Estimated Average Glucose 134 mg/dL 06/13/2024 12:27 PM EDT [facility] Blood VENOUS BLOOD SPECIMEN / Unknown Venipuncture / Unknown 06/13/2024 8:56 AM EDT 06/13/2024 8:56 AM EDT Kelly Miller HELP DESK SUPERVISOR CHEMISTRY ORDERABL ES [facility] [place] [address] documented in this encounter Visit Diagnoses Diagnosis Hepatic fibrosis Cirrhosis of liver without mention of alcohol Prediabetes Other abnormal glucose Metabolic dysfunction-associated steatohepatitis (MASH) documented in this encounter Care Teams Investor Relations Coordinator Relationship Specialty Start Date End Date Kerry Ascencio PA [address] [place] [address] [place] [address] PCP - General Internal Medicine 01/29/21 documented as of this encounter
--- OUTSIDE RECORDS SUMMARY | 2024-06-27 17:00 | XMS_ITS | Encounter Summary ---
Author Organization [facility] Address [address] [place] [address] Care Team Providers Care Transplant Immunologist Name Role Phone Kerry Ascencio Primary Care Provider + Encounter Details Date Type Department Care Team (Late st Contact Info) Description 12/11/2023 Lab Requisition [facility] Pathology & Laboratory Medicine - [address] [id number] Outr Resulting Lab, Provider Social History Tobacco [...] 5.1 See Note mg/dL 12/12/2023 9:31 EDT [facility] Comment: NOTE: Reference range not established Magnesium, Urine 24 hr 40.8 12.0 - 192.0 mg/24hrs 12/12/2023 9:31 EDT [facility] Urine Volume 800 mL 12/12/2023 9:31 EDT [facility] Urine Collection Period 24.0 Hours 12/12/2023 9:31 EDT [facility] Urine 24 HOUR URINE SPECIMEN / Unknown 12/10/2023 9:30 EDT 12/11/2023 21:00 EDT Provider Outr Resulting Lab URINALYSIS O RDERABLES Performing Organization Address [facility] [place]/ZIP Co de Phone Number [facility] [address] [place], [place] [address] * CALCIUM, URINE 24HR (12/10/2023 9:30 EDT) Calcium, Urine 15.5 See Note mg/dL 12/12/2023 9:43 EDT [facility] Comment: NOTE: Reference range not established Calcium, Urine 24 hr 124 100 - 300 mg/24hr 12/12/2023 9:43 EDT [facility] Comment:Reference range assu mes a normal daily intake of calcium between 600 - 800 mg/day. Urine Volume 800 mL 12/12/2023 9:43 EDT [facility] Urine Collection Period 24.0 Hours 12/12/2023 9:43 EDT [facility] Urine 24 HOUR URINE SPECIMEN / Unknown 12/10/2023 9:30 EDT 12/11/2023 21:00 EDT Provider Outr Resulting Lab URINALYSIS O RDERABLES Performing Organization Address [facility] [place]/ZIP Co de Phone Number [facility] [address] [place], [place] [address] documented in this encounter Visit Diagnoses Not on filedocumented in this encounter Care Teams Transplant Immunologist Relationship Specialty Start Date End Date Kerry Ascencio PA [address] [place] [address] [place] [phone] PCP - General 12/16/21 documented as of this encounter
--- OUTSIDE RECORDS SUMMARY | 2024-06-27 17:00 | XMS_ITS | Encounter Summary ---
Author Organization [facility] Address [address] [place] [address] Care Team Providers Care Digital Intern Name Role Phone Unavailable Primary Care Provider Unavailabl e Encounter Details Date Type Department Care Team (Late st Contact Info) Description 10/28/2007 Results Only [facility] - [facility] conversion [address] [place] [address] Kevin Jiménez MD [address] [place] [address] [address] [phone] Social History Tobacco Use Types Packs/Day Years [...] ? AGATHA YI ? Accession #: ? [id number] : ? 1960 (Age: 47) ??F ?Collect Date: ? 10/28/2007 Location: ? [facility] ? Receive Date: ? 10/29/2007 Provider: ?KEVIN JIMÉNEZ MD Copy to: ? Specimen/Source: ?ThinPrep Pap Test, Cervix/Endocervix, processed on Iwedia TechnologiesPrep Imaging System, with manual evaluation Last Menstrual [...] MD PATHOLOGY ORDERABLES [facility] [address] [place] [address] documented in this encounter Visit Diagnoses Not on filedocumented in this encounter
--- OUTSIDE RECORDS SUMMARY | 2024-06-27 17:00 | XMS_ITS | Encounter Summary ---
[place] [address] Care Team Providers Care Interlocking Tower Operator Name Role Phone Kerry Ascencio Primary Care Provider + Reason for Visit * Reason Onset Date Comments Triage 04/08/2024 Sharp chest pain over weeks Encounter Details Date Type Department Care Team (Late st Contact Info) Description 04/08/2024 Telephone Cardiology at [address] [phone] Nayla Burnett, communications programmer (Sharp chest pain over weeks) Social History [...] should worsen or become constant. Nayla Burnett pulp drier firer [facility] at [place] [phone] documented in this encounter Plan of Treatment Upcoming Encounters Date Type Department Care Team (Late st Contact Info) Description 06/30/2024 9:40 AM EDT Office Visit Cardiology at [place] [address] Cody Martinez MD [facility] [place] [address] 10/22/2024 10:30 AM EST Office Visit Weight and Wellness at [place] [address] Marialuisa Peres MD [facility] [place] [address] documented as of this encounter Visit Diagnoses Not on filedocumented in this encounter Care Teams Interlocking Tower Operator Relationship Specialty Start Date End Date Kerry Ascencio PA [address] [place] [address] [place] [address] PCP - General Internal Medicine 01/29/21 documented as of this encounter
--- OUTSIDE RECORDS SUMMARY | 2024-06-27 17:00 | XMS_ITS | Encounter Summary ---
Author Organization [facility] Address [address] [place] [address] Care Team Providers Care Recreation Programmer Name Role Phone Unknown, Provider Primary Care Provider Kerry Ascencio Primary Care Provider + Encounter Details Date Type Department Care Team (Late st Contact Info) Description 04/24/2020 Lab Requisition [facility] Pathology & Laboratory Medicine - [facility] [address] [place] [address] Outr Resulting Lab, Provider Social History Tobacco [...] rt-PCR Result NEGATIVE Negative 04/25/2020 14:09 EDT [facility] Comment: 2019-novel Coronavirus (2019-nCoV) not [...] in accordance with CLIA regulations, College [employer] (CAP) guidelines (Dec 04, 2019), and FDA guidance (Nov 15, 2019). This test is only for use under the Food and Drug Administration's Emergency Use Authorization. Swab ENTIRE NASOPHARYNX / Unknown 04/24/2020 8:05 EDT 04/24/2020 23:12 EDT Provider Outr Resulting Lab MICROBIOLOGY - GENERAL ORDERABLES [facility] [place], [place] * COVID-19 TESTING (04/24/2020 8:05 EDT) Pathologist [facility] COVID-19 rt-PCR Result NEGATIVE Negative 04/25/2020 17:47 EDT [facility] Comment: 2019-novel Coronavirus (2019-nCoV) not [...] in accordance with CLIA regulations, College [employer] Pathologists (CAP) guidelines (Dec 04, 2019), and FDA guidance (Nov 15, 2019). This test is only for use under the Food and Drug Administration's Emergency Use Authorization. Performing Lab [facility] 04/25/2020 17:47 EDT [facility] Swab 04/24/2020 8:05 EDT 04/24/2020 23:12 EDT Provider Outr Resulting Lab MICROBIOLOGY - GENERAL ORDERABLES [facility] [address] [place], [place] [phone] [place] [address] LABORATORY [place] documented in this encounter Visit Diagnoses Not on filedocumented in this encounter Care Teams Recreation Programmer Relationship Specialty Start Date End Date Unknown, Provider, PCP - General 08/22/18 12/15/21 Kerry Ascencio PA [address] [place] [address] [place] [phone] PCP - General 12/16/21 documented as of this encounter
--- OUTSIDE RECORDS SUMMARY | 2024-06-27 17:00 | XMS_ITS | Encounter Summary ---
Author Organization [facility] Address [address] [place] [address] Care Team Providers Care Labelling Machine Operator Name Role Phone Unknown, Provider Primary Care Provider Kerry Ascencio Primary Care Provider + Encounter Details Date Type Department Care Team (Late st Contact Info) Description 03/19/2020 Lab Requisition [facility] Pathology & Laboratory Medicine - [address] [address] Outr Resulting Lab, Provider Social History Tobacco [...] Outr Resulting Lab MICROBIOLOGY - GENERAL ORDERABLES [facility] [address] [place] [address] * COVID-19 TESTING (03/19/2020 9:08 EDT) COVID-19 rt-PCR Result Negative Negative 03/19/2020 22:22 EDT [facility] Comment: This test has [...] history, and epidemiological information. Performed on the [employer] Fusion instrument Performing Lab [place] [facility] 03/19/2020 22:22 EDT [facility] Swab 03/19/2020 9:08 EDT 03/19/2020 16:00 EDT Provider Outr Resulting Lab MICROBIOLOGY - GENERAL ORDERABLES [facility] [address] [place] [address] documented in this encounter Visit Diagnoses Not on filedocumented in this encounter Additional Health Concerns Infection Onset Date Last Indicated Resolved Time R/O COVID-19 03/19/2020 03/19/2020 03/24/2020 22:1 5 EDT documented as of this encounter Care Teams Labelling Machine Operator Relationship Specialty Start Date End Date Unknown, Provider, PCP - General 08/22/18 12/15/21 Kerry Ascencio PA [address] [place] [address] [place] [address] PCP - General 12/16/21 documented as of this encounter
--- OUTSIDE RECORDS SUMMARY | 2024-06-27 17:00 | XMS_ITS | Encounter Summary ---
[place] [address] Care Team Providers Care Vp Data Name Role Phone Kerry Ascencio Primary Care Provider + Encounter Details Date Type Department Care Team (Late st Contact Info) Description 04/29/2024 [place] [phone] Mar Singh, RN Social History Tobacco Use Types Packs/Day [...] encounter Miscellaneous Notes * Telephone Encounter - Mar Singh RN - 05/02/2024 9:49 AM EDT Call placed to patient to relay below response from provider: US reviewed, and there is nothing acute. Doubt the liver is the cause of right sided pain in this setting, and she has had a ccy. Would encourage the PCP to continue to work up a possible MSK source. When her liver labs come in let me know, and I'll take a look. Patient verbalized understanding. * Telephone Encounter - Mar Singh RN - 04/29/2024 1:30 PM EDT Received call from patient who states she has not been feeling well x one month. She reports initial onset of pain in right hip. Within a week she noticed pain had migrated into right upper abdominalquadrant and right back. She had a work up of labs and RUQ u/s with her PCP. Per patient PCP was not able to determine cause of pain and directed her to contact our team. Symptoms have worsened to point of nausea, increased fatigue, feeling cold, but no chills, fever, or vomiting. She endorses decreased appetite. PCP was not able to determine cause of discomfort. Request out to [facility] for most recent labs but does not appear that LFTs checked. Ultrasound report is indexed in patient chart. Will review with provider if indication for additional labs and/or imaging needed. documented in this encounter Plan of Treatment Upcoming Encounters Date Type Department Care Team (Late st Contact Info) Description 06/30/2024 9:40 AM EDT Office Visit Cardiology at [address] [phone] Cody Martinez MD [facility] [place] [address] 10/22/2024 10:30 AM EST Office Visit [place] [phone] Marialuisa Peres MD [facility] [address] documented as of this encounter Visit Diagnoses Not on filedocumented in this encounter Care Teams Vp Data Relationship Specialty Start Date End Date Kerry Ascencio PA [address] [place] [address] [place] [address] PCP - General Internal Medicine 01/29/21 documented as of this encounter
--- OUTSIDE RECORDS SUMMARY | 2024-06-27 17:00 | XMS_ITS | Encounter Summary ---
Author Organization [facility] Address [address] [place] [address] Care Team Providers Care Dairy Management Specialist Name Role Phone Kerry Ascencio Primary Care Provider + Encounter Details Date Type Department Care Team (Late st Contact Info) Description 10/10/2022 Lab Requisition [facility] Pathology & Laboratory Medicine - [address] [phone] Outr Resulting Lab, Provider Social History Tobacco [...] 12.8 See Note mg/dL 10/11/2022 9:20 EST [facility] Comment: NOTE: Reference range not established Calcium, Urine 24 hr 109 100 - 300 mg/24hrs 10/11/2022 9:20 EST [facility] Comment:Reference range assu mes a normal daily intake of calcium between 600 - 800 mg/day. Urine Volume 850 mL 10/11/2022 9:20 EST [facility] Urine Collection Period 24.0 Hours 10/11/2022 9:20 EST [facility] Urine 24 HOUR URINE SPECIMEN / Unknown 10/10/2022 7:00 EST 10/10/2022 21:38 EST Provider Outr Resulting Lab URINALYSIS O RDERABLES Performing Organization Address City/State/[facility] Co de Phone Number [facility] [address] [place] [address] documented in this encounter Visit Diagnoses Not on filedocumented in this encounter Care Teams Dairy Management Specialist Relationship Specialty Start Date End Date Kerry Ascencio PA [address] [place] [phone] PCP - General 12/16/21 documented as of this encounter
--- OUTSIDE RECORDS SUMMARY | 2024-06-27 17:00 | XMS_ITS | Encounter Summary ---
Author Organization [facility] Address [address] [place] [address] Care Team Providers Care Medical Investigator Name Role Phone Unknown, Provider Primary Care Provider [phone] Kerry Ascencio Primary Care Provider + Encounter Details Date Type Department Care Team ([facility] Contact Info) Description 07/08/2021 Lab Requisition [facility] Pathology & Laboratory Medicine - [address] [address] Gladys Sykes MD [address] [place] [address] [address] [place], [place] [id number] Encounter for other general examination Social History [...] explore management options, if applicable. 07/11/2021 10:46 [facility] Final Diagnosis A. SKIN OF CHEST WALL, LEFT UPPER, EXCISION: - Hemangioma. B. SKIN OF BREAST, LEFT, EXCISION: - Hemangioma. 07/11/2021 10:46 [facility] Attestation By the signature below, the attending physician certifies that they have 1) personally conducted a gross and/or microscopic examination of the described specimen(s), and/or personally interpreted the results of laboratory testing of the described specimen(s), and 2) personally rendered or confirmed the above diagnosis. 07/11/2021 10:46 [facility] at 1046 Clinical History Skin lesions,? hemangioma 07/11/2021 10:46 [facility] Gross Description A. [...] and 2 central sections in B2. [facility]) 07/08/2021 16:08 07/11/2021 10:46 [facility] Performing Lab [facility] 07/11/2021 10:46 [facility] Scanned Images 07/11/2021 10:46 EDT [facility] Tissue TISSUE SPECIMEN FROM SKIN / Unknown 07/08/2021 9:25 EDT 07/08/2021 15:51 EDT Tissue specimen (specimen) SPECIMEN FROM SKIN / Unknown 07/08/2021 9:25 EDT 07/08/2021 15:51 EDT Gladys Sykes MD PATHOLOGY ORDERA ALYSIA [facility] [address] [place] [address] documented in this encounter Visit Diagnoses Diagnosis Encounter for other general examination documented in this encounter Care Teams Medical Investigator Relationship Specialty Start Date End Date Unknown, Provider, PCP - General 08/22/18 12/15/21 Kerry Ascencio PA [address] [place] [phone] PCP - General 12/16/21 documented as of this encounter
--- OUTSIDE RECORDS SUMMARY | 2024-06-27 17:00 | XMS_ITS | Encounter Summary ---
Author Organization [facility] Address [address] [place] [address] Care Team Providers Care Rejogger Name Role Phone Kerry Ascencio Primary Care Provider + Encounter Details Date Type Department Care Team (Late st Contact Info) Description 10/10/2022 Lab Requisition [facility] Pathology & Laboratory Medicine - [address] [phone] Outr Resulting Lab, Provider Social History Tobacco [...] 65.6 See Note mg/dL 10/11/2022 9:21 EST [facility] Comment: NOTE: Reference range not established Phosphorous, Urine 24 hr 0.6 0.4 - 1.3 g/24hrs 10/11/2022 9:21 EST [facility] Urine Volume 850 mL 10/11/2022 9:21 EST [facility] Urine Collection Period 24.0 Hours 10/11/2022 9:21 EST [facility] Urine 24 HOUR URINE SPECIMEN / Unknown 10/10/2022 7:00 EST 10/10/2022 21:40 EST Provider Outr Resulting Lab URINALYSIS O RDERABLES Performing Organization Address City/State/[facility] Co de Phone Number [facility] [address] [place] [address] documented in this encounter Visit Diagnoses Not on filedocumented in this encounter Care Teams Rejogger Relationship Specialty Start Date End Date Kerry Ascencio PA [address] [place] [address] [place] [phone] PCP - General 12/16/21 documented as of this encounter
--- OUTSIDE RECORDS SUMMARY | 2024-06-27 17:00 | XMS_ITS | Encounter Summary ---
Author Organization [facility] [place] [address] Care Team Providers Care Anatomy Professor Name Role Phone Kerry Ascencio Primary [...] 9:40 AM EDT Office Visit Cardiology at [address] [phone] Cody Martinez MD [facility] [address] 10/22/2024 10:30 AM EST Office Visit [facility] [place] [phone] Marialuisa Peres MD [facility] [place] [address] documented as of this encounter Visit Diagnoses Not on filedocumented in this encounter Care Teams Anatomy Professor Relationship Specialty Start Date End Date Kerry Ascencio PA [address] [place] [address] [place] [address] PCP - General Internal Medicine 01/29/21 documented as of this encounter
--- OUTSIDE RECORDS SUMMARY | 2024-06-27 17:01 | XMS_ITS | Encounter Summary ---
Author Organization [facility] [place] [address] Care Team Providers Care Track Machine Operator Repairer Name Role Phone Kerry Ascencio Primary Care Provider + Reason for Visit * Consultation (Routine) - Closed Specialty Diagnoses / Procedures Referred By Clari dickey Referred To Contact Gastroenterology Diagnoses Fatty (change of) liver, not elsewhere classified Kerry Ascencio PA [address] [place] [id number] [facility] [address] [place] [address] Referral ID Status Reason Start Date Expiration Date V isits Requested Visits Authorized [id number] Closed Consult, Test & Treat PCP Updated and/or Approved 05/04/2023 05/03/2024 6 6 Encounter Details Date Type Department Care Team (Late st Contact Info) Description 05/30/2023 9:00 AM EDT [place] [address] Kelly Miller, DIRECTIONAL SURVEY DRAFTER [facility] [place] [address] Hepatic steatosis; Prediabetes; Elevated liver [...] AND SWELLING Alcohol Other reaction(s): RASH Gum Merced Other reaction(s): RASH Hydrocodone Other reaction(s): PRURITIS [...] Alert, and oriented. Easily converses with this play writer. Comfortable wob in ra. Skin and [...] APRN MSN Section of Gastroenterology [place] [address] Cc: GENE Crews documented in this encounter Procedure Notes * Kelly Miller APRN - 05/30/2023 9:00 AM EDTAssociated Order(s): FIBROSCAN Procedure(s): FIBROSCAN Pre-Procedure Diagnose(s): Hepatic steatosis [facility] Liver Fibrosis Assessment Report Indication: Hepatic Steatosis Performed by: Kelly Miller APRN Procedure: Vibration Controlled Transient Elastography (VCTE) or Fibroscan [place] Protocol: Patient's identity, procedure and site were [...] 9:40 AM EDT Office Visit Cardiology at [address] [phone] Cody Martinez MD [facility] [address] [place] [address] 10/22/2024 10:30 AM EST Office Visit Weight and Wellness at [facility] [place] [address] Marialuisa Peres MD [facility] [place] [address] documented as of this encounter Procedures Procedure Name Priority Date/Time Associated Diagnosis Comments HEMOGRAM Routine 05/30/2023 10:12 AM EDT Hepatic steatosis Prediabetes Elevated liver function tests Hepatic fibrosis DIFFERENTIAL, AUTOMATED Routine 05/30/2023 10:12 AM EDT Hepatic steatosis Prediabetes Elevated liver function tests Hepatic fibrosis HEPATITIS C ANTIBODY Routine 05/30/2023 10:12 AM EDT Hepatic steatosis Prediabetes Elevated liver function tests Hepatic fibrosis IRON AND TIBC Routine 05/30/2023 10:12 AM EDT Hepatic steatosis Prediabetes Elevated liver function tests Hepatic fibrosis [id number] Routine 05/30/2023 1 0:12 AM EDT Hepatic steatosis Prediabetes Elevated liver function tests Hepatic fibrosis MITOCHONDRIAL ANTIBODY, M2 Routine 05/30/2023 10:12 AM EDT Hepatic steatosis Prediabetes Elevated liver function tests Hepatic fibrosis TISSUE TRANSGLUTAMINASE, IGA Routine 05/30/2023 10:12 AM EDT Hepatic steatosis Prediabetes Elevated liver function tests Hepatic fibrosis HEPATITIS B CORE ANTIBODY, TOTAL Routine 05/30/2023 10:12 AM EDT Hepatic steatosis Prediabetes Elevated liver function tests Hepatic fibrosis SMOOTH MUSCLE ANTIBODY Routine 3 10:12 AM EDT Hepatic steatosis Prediabetes Elevated liver function tests Hepatic fibrosis HEPATITIS B SURFACE ANTIBODY Routine 05/30/2023 10:12 AM EDT Hepatic steatosis Prediabetes Elevated liver function tests Hepatic fibrosis HEPATITIS B SURFACE ANTIGEN Routine 05/30/2023 10:12 AM EDT Hepatic steatosis Prediabetes Elevated liver function tests Hepatic fibrosis PROTHROMBIN TIME Routine 05/30/2023 10:1 2 AM EDT Hepatic steatosis Prediabetes Elevated liver function tests Hepatic fibrosis CBC (WITH DIFF) Routine 05/30/2023 10:12 AM EDT Hepatic steatosis Prediabetes Elevated liver function tests Hepatic fibrosis HC DNA AB DS (SUN'AQ) Routine 05/30/2023 10:12 AM EDT Hepatic steatosis Prediabetes Elevated liver function tests Hepatic fibrosis TSH Routine 05/30/2023 10:12 AM EDT Hepatic steatosis HEMOGLOBIN A1C Routine 05/30/2023 10:12 AM EDT Hepatic steatosis Prediabetes Elevated liver function tests Hepatic fibrosis IGG Routine 05/30/2023 10:12 AM EDT Hepatic steatosis Prediabetes Elevated liver function tests Hepatic fibrosis FERRITIN Routine 05/30/2023 10:12 AM EDT Hepatic steatosis Prediabetes Elevated liver function tests Hepatic fibrosis COMPREHENSIVE METABOLIC PANEL Routine 05/30/2023 10:12 AM EDT Hepatic steatosis Prediabetes Elevated liver function tests Hepatic fibrosis [id number] Routine 05/30/2023 9:00 AM EDT Hepatic steatosis documented in this encounter Results * Prothrombin Time (12/12/2023 9:29 AM EDT) Prothrombin Time 12.4 9.4 - 12.5 sec [facility] International Normalization Ratio 1.1 [facility] Comment: An [...] Agency Comment Spec In Lab Kelly Miller DIRECTIONAL SURVEY DRAFTER HEMATOLOGY ORDERAB LES [facility] [place] [address] * (ABNORMAL) Comprehensive metabolic panel (non-fasting) (12/12/2023 9:29 AM EDT) Glucose 148 65 - 199 mg/dL [facility] Comment:Diabetes: >=200 mg/d L plus symptoms Blood Urea Nitrogen 13 8 - 18 mg/dL [facility] Creatinine 0.89 0.70 - 1.20 mg/dL [facility] Sodium 139 135 - 145 mmol/L [facility] Potassium 4.1 3.5 - 5.0 mmol/L [facility] Comment: Please note: ??Patients with WBC >100,000 may have falsely elevated Potassium levels. ??For accurate Potassium quantification in these patients send serum separator tube (gold top) for subsequent determinations. ??Contact the Clinical Chemistry Laboratory if there are any questions. Chloride 103 98 - 107 mmol/L [facility] Carbon Dioxide 25 22 - 31 mmol/L [facility] Anion Gap 11 5 - 15 mmol/L [facility] Calcium 9.7 8.5 - 10.5 mg/dL [facility] Protein, Total 7.8 6.1 - 8.0 g/dL [facility] Albumin 4.4 3.2 - 5.2 g/dL [facility] Aspartate Aminotransferase 47(H) 0 - 30 unit/L [facility] Alanine Aminotransferase 30 0 - 30 unit/L [facility] Alkaline Phosphatase 148(H) 35 - 105 unit/L [facility] Bilirubin, Total 0.7 0.2 - 1.3 mg/dL [facility] Est Glomerular Filtration Rate 73 >=60 mL/min/1. 73 m?? [facility] Comment: This patient's estimated GFR [...] Agency Comment Spec In Lab Kelly Miller DIRECTIONAL SURVEY DRAFTER CHEMISTRY ORDERABL ES [facility] [place] [address] * Differential, Automated (05/30/2023 10:12 AM EDT) Neutrophil % 55.3 % [facility] Neutrophil Absolute 4.21 1.70 - 6.10 x10(3)/[facility] [address] LABORATORY Lymph % 31.8 % [facility] Lymphocytes Abs 2.4 0.9 - 3.2 x10(3)/[facility] [address] LABORATORY Monocyte % 7.2 % [facility] Monocyte Abs 0.6 0.3 - 0.9 x10(3)/[facility] [address] LABORATORY Eos % 4.2 % [facility] Eosinophils Abs 0.3 0.0 - 0.4 x10(3)/[facility] [address] LABORATORY Basophil % 1.4 % [facility] Baso Absolute 0.1 0.0 - 0.1 x10(3)/[facility] [address] LABORATORY Immature Gran % 0.10 % [facility] Comment: Immature granulocytes(IG's)percentage and absolute count will include metamyelocytes, myelocytes, and promyelocytes. Blood smears from CBCs yielding IG's will be scanned manually for concordance. If this scan disagrees with the automated IG or if promyelocytes are noted, a manual differential will be performed. Immature Gran Absolute 0.01 0.00 - 0.04 x10(3)/mcL [facility] Blood 05/30/2023 10:1 2 AM EDT 05/30/2023 10:24 AM EDT Narrative Resulting Agency Comment Spec In Lab Kelly Miller DIRECTIONAL SURVEY DRAFTER HEMATOLOGY ORDERAB LES [facility] [place] [address] * (ABNORMAL) Hemogram (05/30/2023 10:12 AM EDT) White Blood Cell 7.6 4.0 - 9.5 x10(3)/mc L [facility] Red Blood Cell 5.11 4.00 - 5.21 x10(6)/mc L [facility] Hemoglobin 15.4 11.7 - 15.5 g/dL [facility] Hematocrit 46.3(H) 35.7 - 45.8 % [facility] Mean Cell Volume 90.6 82.6 - 94.4 fL [facility] Mean Cell Hemoglobin 30.1 27.1 - 32.0 pg [facility] Mean Cell Hemoglobin Concentration 33.3 31.7 - 35.0 g/dL [facility] Platelet 225 145 - 357 x10(3)/mc L [facility] RDW Standard Deviation 45.2 37.0 - 46.0 fL [facility] RDW coefficient of variation 13.4 11.5 - 14.1 % [facility] Mean Platelet Volume 12.3 7.6 - 12.9 fL [facility] NRBC% auto 0.0 % [facility] NRBC Absolute 0.000 0.000 - 0.000 x10(3)/mc L [facility] Blood 05/30/2023 10:1 2 AM EDT 05/30/2023 10:24 AM EDT Narrative Resulting Agency Comment Spec In Lab Kelly Johnson Paul DIRECTIONAL SURVEY DRAFTER HEMATOLOGY ORDERAB LES Performing Organization Address City/[facility]/ZIP Co de Phone Number [facility] [place] [address] * Tissue transglutaminase, IgA (05/30/2023 10:12 AM EDT) TTG IgA Ab 0.4 <=10.0 u/ml [facility] Comment: Negative: ??<7 units/mL Indeterminate: 7-10 units/mL Positive: ??>10 units/mL Blood 05/30/2023 10:1 2 AM EDT 05/30/2023 12:19 PM EDT Narrative Resulting Agency Comment Spec In Lab Kelly Miller DIRECTIONAL SURVEY DRAFTER IMMUNOLOGY ORDERAB LES Performing Organization Address [facility] Co de Phone Number [facility] [place] [address] * Mitochondrial Antibody, M2 (05/30/2023 10:12 AM EDT) Mitochon Ab (MAY) <0.1 <0.1 (Negative) U [facility] Comment: Test Performed by: [facility] [address] [place], [place] [id number] Coat Room Attendant: Gaurang Goldman M.D. Ph.D.; CLIA# [id number] Blood 05/30/2023 10:1 2 AM EDT 05/30/2023 1:59 PM EDT Narrative Resulting Agency Comment Spec In Lab Kelly Miller DIRECTIONAL SURVEY DRAFTER LAB SEND OUT ORDER GORGE Performing Organization Address City/[facility] Co de Phone Number [facility] [place] [address] * Iron and TIBC (05/30/2023 10:12 AM EDT) Iron 87 30 - 150 mcg/dL [facility] TIBC 332 250 - 450 mcg/dL [facility] Iron Saturation 26 20 - 50 % [facility] Blood 05/30/2023 10:1 2 AM EDT 05/30/2023 10:24 AM EDT Narrative Resulting Agency Comment Spec In Lab Kelly Miller DIRECTIONAL SURVEY DRAFTER CHEMISTRY ORDERABL ES Performing Organization Address [facility] Co de Phone Number [facility] [place] [address] * IgG (05/30/2023 10:12 AM EDT) Immunoglobulin G 1,364 700 - 1,600 mg/dL [facility] Comment: Pediatric Reference Intervals obtained from the [employer] Reference Interval project. http://www.[employer].ca/caliperproject/index.html Blood 05/30/2023 10:1 2 AM EDT 05/30/2023 10:24 AM EDT Narrative Resulting Agency Comment Spec In Lab Kelly Johnson Paul DIRECTIONAL SURVEY DRAFTER CHEMISTRY ORDERABL ES Performing Organization Address [facility] Co de Phone Number [facility] [place] [address] * Hepatitis C Antibody (05/30/2023 10:12 AM EDT) Hepatitis C Antibody Negative Negative [facility] Blood 05/30/2023 10:1 2 AM EDT 05/30/2023 10:24 AM EDT Narrative Resulting Agency Comment Spec In Lab Kelly Johnson Mcintosh DIRECTIONAL SURVEY DRAFTER CHEMISTRY ORDERABL ES Performing Organization Address [facility] Co de Phone Number [facility] [place] [address] * Hepatitis B Surface Antigen (05/30/2023 10:12 AM EDT) Hepatitis B Surface Antigen Negative Negative [facility] Blood 05/30/2023 10:1 2 AM EDT 05/30/2023 10:24 AM EDT Narrative Resulting Agency Comment Spec In Lab Kelly Johnson Paul DIRECTIONAL SURVEY DRAFTER CHEMISTRY ORDERABL ES Performing Organization Address [facility] Co de Phone Number [facility] [place] [address] * Hepatitis B Surface Antibody (05/30/2023 10:12 AM EDT) Hepatitis B Surface Antibody, Quantitative <3.5 IU/L [facility] Comment: HepB Surface Ab Quant: Unvaccinated: < 8.5 IU/L Vaccinated: >= 11.5 IU/L Hepatitis B Surface Antibody Negative [facility] Comment: Patient is presumed to be not vaccinated or immune to HBV infection. Expected Results: Vaccinated: Positive Unvaccinated: Negative Blood 05/30/2023 10:1 2 AM EDT 05/30/2023 10:24 AM EDT Narrative Resulting Agency Comment Spec In Lab Kelly Alex Miller DIRECTIONAL SURVEY DRAFTER CHEMISTRY ORDERABL ES Performing Organization Address [facility] Co de Phone Number [facility] [place] [address] * Hepatitis B Core Antibody, Total (05/30/2023 10:12 AM EDT) Pathologist [facility] Hepatitis B Core Antibody Negative Negative [facility] Blood 05/30/2023 10:1 2 AM EDT 05/30/2023 10:24 AM EDT Narrative Resulting Agency Comment Spec In Lab Kelly Alex Miller DIRECTIONAL SURVEY DRAFTER CHEMISTRY ORDERABL ES Performing Organization Address [facility] Co de Phone Number [facility] [place] [address] * Ferritin (05/30/2023 10:12 AM EDT) Ferritin 216 30 - 400 ng/mL [facility] Comment: Pediatric reference ranges not verified at [facility], interpret with caution. Reference ranges for females greater than 50 years of age approach values for men, i.e., 30-400 ng/mL. Blood 05/30/2023 10:1 2 AM EDT 05/30/2023 10:24 AM EDT Narrative Resulting Agency Comment Spec In Lab Kelly Miller APRN CHEMISTRY ORDERABL ES Performing Organization Address City/[facility]/ZIP Co de Phone Number [facility] [place] [address] * Smooth Muscle Antibody (05/30/2023 10:12 AM EDT) Sm Muscle Ab (JANUARY) Negative Negative [facility] Comment: Negative: No further testing will be performed ADDITIONAL INFORMATION This test was developed and its performance characteristics determined by [facility] in a manner consistent with CLIA requirements. This test has not been cleared or approved by the U.S. Food and Drug Administration. Test Performed by: [facility] - [address] [address] Coat Room Attendant: Gaurang Goldman M.D. Ph.D.; CLIA# [id number] Blood 05/30/2023 10:1 2 AM EDT 05/30/2023 1:59 PM EDT Narrative Resulting Agency Comment Spec In Lab Kelly Miller APRN LAB SEND OUT ORDER GORGE Performing Organization Address [facility] Co de Phone Number [facility] [place] [address] * KRISTY Antibody Screen (05/30/2023 10:12 AM EDT) KRISTY Ab Screen Negative Negative [facility] Comment: This antinuclear antibody (KRISTY) screen is a qualitative test performed using a fluoroenzyme immunoassay on the [employer] 250 analyzer. This screen is designed to [...] performed by the Special Chemistry Laboratory at [facility]. This change in testing location is associated with a change is testing method and reference intervals. Please review the results of this test in association with the posted reference intervals. dsDNA Ab 5.7 <=15.0 IU/mL [facility] Comment: <10 negative 10-15 equivocal >15 positive This dsDNA antibody result was generated using a fluoroenzyme immunoassay on the [employer] 250 analyzer. This quantitative test is designed to detect IgG antibodies directed against double stranded DNA in human serum. The presence of antibodies that recognize dsDNA is a highly specific marker for systemic lupus erythematosus. Please note that as of 07/11/2022 that this testing is performed by the Special Chemistry Laboratory at [facility]. This change in testing location is associated with a change is testing method and reference intervals. Please review the results of this test in association with the posted reference intervals. Blood 05/30/2023 10:1 2 AM EDT 05/30/2023 12:19 PM EDT Narrative Resulting Agency Comment Spec In Lab Kelly Miller APRN LAB SEND OUT ORDER GORGE Performing Organization Address [facility] Co de Phone Number [facility] [place] [address] * A1AT Serum Concentration (05/30/2023 10:12 AM EDT) A1AT 145 90 - 200 mg/dL [facility] Blood 05/30/2023 10:1 2 AM EDT 05/30/2023 10:24 AM EDT Narrative Resulting Agency Comment Spec In Lab Kelly Miller DIRECTIONAL SURVEY DRAFTER CHEMISTRY ORDERABL ES Performing Organization Address [facility] Co de Phone Number [facility] [place] [address] * (ABNORMAL) Hemoglobin A1c (05/30/2023 10:12 AM EDT) Hemoglobin A1c 6.4(H) 4.3 - 5.6 % [facility] Comment: Reference Range: 4.3 - [...] Diabetes Care 2013; 36: Suppl. 1, S67-74 Estimated Average Glucose 136 mg/dL [facility] Comment: eAG equivalents for HbA1c [...] into estimated average glucose values. ??Diabetes Care 2008:31(8):5041-0870. Blood 05/30/2023 10:1 2 AM EDT 05/30/2023 10:24 AM EDT Narrative Resulting Agency Comment Spec In Lab Kelly Miller DIRECTIONAL SURVEY DRAFTER CHEMISTRY ORDERABL ES [facility] [place] [address] * (ABNORMAL) Prothrombin Time (05/30/2023 10:12 AM EDT) Prothrombin Time 12.9(H) 9.4 - 12.5 sec [facility] International Normalization Ratio 1.1 [facility] Comment: An INR <2.0 [...] Agency Comment Spec In Lab Kelly Miller DIRECTIONAL SURVEY DRAFTER HEMATOLOGY ORDERAB LES [facility] [place] [address] * (ABNORMAL) Comprehensive metabolic panel (non-fasting) (05/30/2023 10:12 AM EDT) Glucose 101 65 - 199 mg/dL [facility] Comment:Diabetes: >=200 mg/d L plus symptoms Blood Urea Nitrogen 10 8 - 18 mg/dL [facility] Creatinine 0.82 0.70 - 1.20 mg/dL [facility] Sodium 140 135 - 145 mmol/L [facility] Potassium 3.9 3.5 - 5.0 mmol/L [facility] Comment: Please note: ??Patients with WBC >100,000 may have falsely elevated Potassium levels. ??For accurate Potassium quantification in these patients send serum separator tube (gold top) for subsequent determinations. ??Contact the Clinical Chemistry Laboratory if there are any questions. Chloride 103 98 - 107 mmol/L [facility] Carbon Dioxide 26 22 - 31 mmol/L [facility] Anion Gap 11 5 - 15 mmol/L [facility] Calcium 9.8 8.5 - 10.5 mg/dL [facility] Protein, Total 8.1(H) 6.1 - 8.0 g/dL [facility] Albumin 4.5 3.2 - 5.2 g/dL [facility] Aspartate Aminotransferase 45(H) 0 - 30 unit/L [facility] Alanine Aminotransferase 32(H) 0 - 30 unit/L [facility] Alkaline Phosphatase 147(H) 35 - 105 unit/L [facility] Bilirubin, Total 0.8 0.2 - 1.3 mg/dL [facility] Est Glomerular Filtration Rate 80 >=60 mL/min/1. 73 m?? [facility] Comment: This patient's estimated GFR [...] APRN CHEMISTRY ORDERABL ES Performing Organization Address [facility] Co de Phone Number [facility] [place] [address] * (ABNORMAL) TSH (05/30/2023 10:12 AM EDT) Thyroid Stimulating Hormone 6.79(H) 0.27 - 4.20 mcIU/mL [facility] Comment: Reference Interval (mcIU/mL): Females: ??First Trimester: 0.23-3.88 ??Second Trimester: 0.22-3.90 ??Third Trimester: 0.44-4.66 Blood 05/30/2023 10:1 2 AM EDT 05/30/2023 10:24 AM EDT Narrative Resulting Agency Comment Spec In Lab Kelly Miller APRN CHEMISTRY ORDERABL ES Performing Organization Address City/[facility] Co de Phone Number [facility] [place] [address] * [id number] (05/30/2023 9:00 AM EDT) Narrative Kelly Miller APRN - 05/30/2023 9:00 AM EDT Kelly Miller APRN ? 05/30/2023 ??1:21 PM [facility] Liver Fibrosis Assessment Report Indication: ?? Hepatic Steatosis Performed by: ??Kelly Miller APRN Procedure: Vibration Controlled Transient Elastography (VCTE) or Fibroscan [place] Protocol: Patient's identity, procedure and site were [...] alcohol documented in this encounter Care Teams Track Machine Operator Repairer Relationship Specialty Start Date End Date Kerry Ascencio PA [address] [place] [address] [place] [address] PCP - General Internal Medicine 01/29/21 documented as of this encounter
--- OUTSIDE RECORDS SUMMARY | 2024-06-27 17:01 | XMS_ITS | Encounter Summary ---
Author Organization [facility] [place] [address] Care Team Providers Care Sandstone Splitter Name Role Phone Kerry Ascencio Primary Care Provider + Encounter Details Date Type Department Care Team (Late st Contact Info) Description 03/02/2023 Ancillary Procedure Radiology Library at [facility] [address] [place] [address] Kerry Ascencio PA [address] [place] [address] [place], [place] [id number] Social History Tobacco Use Types Packs/Day Years [...] 9:40 AM EDT Office Visit Cardiology at [address] [place] [phone] Cody Martinez MD [facility] [address] [place] [address] 10/22/2024 10:30 AM EST Office Visit [place] [address] Marialuisa Peres MD [facility] [place] [address] documented as of this encounter Procedures Procedure Name Priority Date/Time Associated Diagnosis Comments FILM LIBRARY STORAGE ONLY MR HEAD Routine 03/02/2023 12:00 AM EDT documented in this encounter Results * Film Library- Storage Only MR Head (03/02/2023 12:00 AM EDT) Narrative [facility] - 03/08/2023 8:52 AM EDT This exam is auto-finalizing. It's purpose is for storage only. Kerry MILLS IMFidelina FILM LIBRARY ORDERABLES Performing Organization Address City/State/[facility] Co de Phone Number [place], [place] documented in this encounter Visit Diagnoses Not on filedocumented in this encounter Care Teams Sandstone Splitter Relationship Specialty Start Date End Date Kerry Ascencio PA [address] [place] [address] [place] [address] PCP - General Internal Medicine 01/29/21 documented as of this encounter
--- OUTSIDE RECORDS SUMMARY | 2024-06-27 17:01 | XMS_ITS | Encounter Summary ---
Author Organization [facility] Address [facility] [place] [address] Care Team Providers Care Recycling Program Manager Name Role Phone Kerry Ascencio Primary Care Provider + Reason for Visit * Reason Comments Post Op CE/IOL OD Encounter Details Date Type Department Care Team (Late st Contact Info) Description 03/22/2022 7:45 AM EDT Office [place] [address] Ant Rhoades MD [facility] [place] [place] [address] Status post cataract extraction and insertion of [...] 9:40 AM EDT Office Visit Cardiology at [address] [phone] Cody Martinez MD [facility] [place] [address] 10/22/2024 10:30 AM EST Office Visit [place] [address] Marialuisa Peres MD [facility] [place] [address] documented as of this encounter Visit Diagnoses Diagnosis Status post cataract extraction and insertion of intraocular lens, right Eye pain, right documented in this encounter Care Teams Recycling Program Manager Relationship Specialty Start Date End Date Kerry Ascencio PA [address] [place] [address] [place] [address] PCP - General Internal Medicine 01/29/21 documented as of this encounter
--- OUTSIDE RECORDS SUMMARY | 2024-06-27 17:01 | XMS_ITS | Encounter Summary ---
Author Organization [facility] Address [facility] [place] [address] Care Team Providers Care Pressing Machine Operator Name Role Phone Kerry Ascencio Primary Care Provider + Encounter Details Date Type Department Care Team (Late st Contact Info) Description 03/23/2022 [place] [address] Ant Rhoades MD [facility] [place] [address] Social History Tobacco Use Types Packs/Day Years [...] with [facility]. Due to travel restrictions/cost to [facility] pt kasia does not want to schedule another appointment at [facility] until at least April. Pt is going to contact her local eye care provider, Dr. Al at [facility], to schedule a 1wk IOP hck with them. Per pt request, recent office note from 03/22 with [facility] has been routed to Dr. Al in [facility]. * Telephone Encounter - Kitty [place]ado - [...] 9:40 AM EDT Office Visit Cardiology at [address] [phone] Cody Martinez MD [facility] [place] [address] 10/22/2024 10:30 AM EST Office Visit [place] [address] Marialuisa Peres MD [facility] [place] [address] documented as of this encounter Visit Diagnoses Not on filedocumented in this encounter Care Teams Pressing Machine Operator Relationship Specialty Start Date End Date Kerry Ascencio PA [address] [place] [address] [place] [address] PCP - General Internal Medicine 01/29/21 documented as of this encounter
--- OUTSIDE RECORDS SUMMARY | 2024-06-27 17:01 | XMS_ITS | Encounter Summary ---
Author Organization [facility] [place] [address] Care Team Providers Care Behavior Analyst Name Role Phone Kerry Ascencio Primary [...] 9:40 AM EDT Office Visit Cardiology at [address] [phone] Cody Martinez MD [facility] [place] [address] 10/22/2024 10:30 AM EST Office Visit Weight [place] [phone] Marialuisa Peres MD [facility] [place] [address] documented as of this encounter Visit Diagnoses Not on filedocumented in this encounter Care Teams Behavior Analyst Relationship Specialty Start Date End Date Kerry Ascencio PA [address] [place] [address] [place] [address] PCP - General Internal Medicine 01/29/21 documented as of this encounter
--- OUTSIDE RECORDS SUMMARY | 2024-06-27 17:01 | XMS_ITS | Encounter Summary ---
Author Organization [facility] Address [facility] [place] [address] Care Team Providers Care Forensic Technician Name Role Phone Kerry Ascencio Primary Care Provider + Reason for Referral * Consultation (Routine) - Authorized Specialty Diagnoses / Procedures Referred By Clari dickey Referred To Contact Orthopaedics Diagnoses Strain of muscle(s) and tendon(s) of the rotator cuff of left shoulder, initial encounter Angel Sears MD [address] [place] [address] Cortez Ross MD [facility] [place] [address] Referral ID Status Reason Start Date Expiration Date Visits Requested Visits Authorized [id number] Authorized Consult, Test & Treat PCP Updated and/or Approved 3 08/14/2024 6 6 Encounter Details Date Type Department Care Team (Latest Contact Info) Description 08/15/2023 Transcribe Orders eDH Incoming Referrals [phone] Angel Sears MD [address] [place], [place] [id number] Strain of muscle(s) and tendon(s) of the [...] 9:40 AM EDT Office Visit Cardiology at [address] [phone] Cody Martinez MD [facility] [address] 10/22/2024 10:30 AM EST Office Visit [place] [phone] Marialuisa Peres MD [facility] [place] [address] Scheduled Referrals Name Type Priority Associated Diagnoses Order Schedule Referral to Orthopaedics Outpatient Referral Routine Strain of muscle(s) and tendon(s) of the rotator cuff of left shoulder, initial encounter Ordered: 08/15/2023 documented as of this encounter Visit Diagnoses Diagnosis Strain of muscle(s) and tendon(s) of the rotator cuff of left shoulder, initial encounter documented in this encounter Care Teams Forensic Technician Relationship Specialty Start Date End Date Kerry Ascencio PA [address] [place] [address] JENI MUNOZ [address] PCP - General Internal Medicine 01/29/21 documented as of this encounter
--- OUTSIDE RECORDS SUMMARY | 2024-06-27 17:01 | XMS_ITS | Encounter Summary ---
Author Organization [facility] [place] [address] Care Team Providers Care Enterer Name Role Phone Kerry Ascencio Primary Care [...] 9:40 AM EDT Office Visit Cardiology at [address] [phone] Cody Martinez MD [facility] [address] 10/22/2024 10:30 AM EST Office Visit Weight [place] [phone] Marialuisa Peres MD [facility] [place] [address] documented as of this encounter Visit Diagnoses Not on filedocumented in this encounter Care Teams Enterer Relationship Specialty Start Date End Date Kerry Ascencio PA [address] [place] [address] [place] [address] PCP - General Internal Medicine 01/29/21 documented as of this encounter
--- OUTSIDE RECORDS SUMMARY | 2024-06-27 17:01 | XMS_ITS | Encounter Summary ---
Author Organization [facility] Address [facility] [place] [address] Care Team Providers Care Beauty School Instructor Name Role Phone Kerry Ascencio Primary Care Provider + Encounter Details Date Type Department Care Team (Late st Contact Info) Description 04/17/2023 Telephone [place] [address] Janet Navarro MD [facility] [place] [address] Social History Tobacco Use Types Packs/Day Years [...] 9:40 AM EDT Office Visit Cardiology at [address] [phone] Cody Martinez MD [facility] [place] [address] 10/22/2024 10:30 AM EST Office Visit [place] [address] Marialuisa Peres MD [facility] [place] [address] documented as of this encounter Visit Diagnoses Not on filedocumented in this encounter Care Teams Beauty School Instructor Relationship Specialty Start Date End Date Kerry Ascencio PA [address] [place] [address] JENI MUNOZ [address] PCP - General Internal Medicine 01/29/21 documented as of this encounter
--- OUTSIDE RECORDS SUMMARY | 2024-06-27 17:01 | XMS_ITS | Encounter Summary ---
Author Organization [facility] [place] [address] Care Team Providers Care Mill And Coal Transport Operator Name Role Phone Kerry Ascencio Primary [...] 9:40 AM EDT Office Visit Cardiology at [address] [phone] Cody Martinez MD [facility] [place] [address] 10/22/2024 10:30 AM EST Office Visit [place] [phone] Marialuisa Peres MD [facility] [place] [address] documented as of this encounter Visit Diagnoses Not on filedocumented in this encounter Care Teams Mill And Coal Transport Operator Relationship Specialty Start Date End Date Kerry Ascencio PA [address] [place] [address] [place] [address] PCP - General Internal Medicine 01/29/21 documented as of this encounter
--- OUTSIDE RECORDS SUMMARY | 2024-06-27 17:01 | XMS_ITS | Encounter Summary ---
Author Organization [facility] Address [facility] [place] [address] Care Team Providers Care Turpentiner Name Role Phone Kerry Ascencio Primary Care Provider + Encounter Details Date Type Department Care Team (Late st Contact Info) Description 10/01/2023 6:20 PM EST Ancillary Procedure Radiology Library [place] [address] Cortez Ross MD [facility] [place] [address] Social History Tobacco Use Types Packs/Day Years [...] AM EDT Office Visit Cardiology at [address] [place] [address] Cody Martinez MD [facility] [place] [address] 10/22/2024 10:30 AM EST Office Visit [place] [address] Marialuisa Peres MD [facility] [place] [address] documented as of this encounter Procedures Procedure Name Priority Date/Time Associated Diagnosis Comments FILM LIBRARY STORAGE ONLY MR SHOULDER Routine 10/01/2023 6:17 PM EST documented in this encounter Results * Film Library- Storage Only MR Shoulder (10/01/2023 6:17 PM EST) Narrative [facility] - 10/01/2023 6:17 PM EST This exam is auto-finalizing. It's purpose is for storage only. Cortez Ross MD IMG FILM LIBRARY ORD ERABLES [place], [place] documented in this encounter Visit Diagnoses Not on filedocumented in this encounter Care Teams Turpentiner Relationship Specialty Start Date End Date Kerry Ascencio PA [address] [place] [address] [place] [address] PCP - General Internal Medicine 01/29/21 documented as of this encounter
--- OUTSIDE RECORDS SUMMARY | 2024-06-27 17:01 | XMS_ITS | Encounter Summary ---
Author Organization [facility] Boris [place] [address] Care Team Providers Care Butcher Apprentice Name Role Phone Kerry Ascencio Primary Care Provider + Encounter Details Date Type Department Care Team (Late st Contact Info) Description 11/16/2022 Ancillary Procedure Radiology Library at [facility] [address] [place] [address] Kerry Ascencio PA [address] [place] [address] [address] [place], [place] [address] Social History Tobacco Use Types Packs/Day Years [...] 9:40 AM EDT Office Visit Cardiology at [address] [place] [phone] Cody Martinez MD [facility] [address] [place] [address] 10/22/2024 10:30 AM EST Office Visit [place] [address] Marialuisa Peres MD [facility] [place] [address] documented as of this encounter Procedures Procedure Name Priority Date/Time Associated Diagnosis Comments FILM LIBRARY STORAGE ONLY ULTRASOUND STUDY Routine 11/16/2022 12:00 AM EST documented in this encounter Results * Film Library- Storage Only Ultrasound Study (11/16/2022 12:00 AM EST) Narrative [facility] - 04/30/2023 9:04 PM EDT This exam is auto-finalizing. It's purpose is for storage only. Kerry MILLS IMFidelina FILM LIBRARY ORDERABLES [place], [place] documented in this encounter Visit Diagnoses Not on filedocumented in this encounter Care Teams Butcher Apprentice Relationship Specialty Start Date End Date Kerry Ascencio PA [address] [place] [address] [place] [address] PCP - General Internal Medicine 01/29/21 documented as of this encounter
--- OUTSIDE RECORDS SUMMARY | 2024-06-27 17:01 | XMS_ITS | Encounter Summary ---
Author Organization [facility] Address [facility] [place] [address] Care Team Providers Care Media Buyer Name Role Phone Kerry Ascencio Primary Care Provider + Encounter Details Date Type Department Care Team (Late st Contact Info) Description 04/28/2022 Telephone [place] [address] Ant Rhoades MD [facility] [place] [address] Social History Tobacco Use Types Packs/Day Years [...] 9:40 AM EDT Office Visit Cardiology at [address] [phone] Cody Martinez MD [facility] [place] [address] 10/22/2024 10:30 AM EST Office Visit [place] [address] Marialuisa Peres MD [facility] [place] [address] documented as of this encounter Visit Diagnoses Not on filedocumented in this encounter Care Teams Media Buyer Relationship Specialty Start Date End Date Kerry Ascencio PA [address] [place] [address] [place] [address] PCP - General Internal Medicine 01/29/21 documented as of this encounter
--- OUTSIDE RECORDS SUMMARY | 2024-06-27 17:01 | XMS_ITS | Encounter Summary ---
Author Organization [facility] Address [facility] [place] [address] Care Team Providers Care Labor And Delivery Nurse Name Role Phone Kerry Ascencio Primary Care Provider + Encounter Details Date Type Department Care Team (Late st Contact Info) Description 12/06/2023 11:00 AM EDT Telephone [place] [address] Cortez Ross MD [facility] [place] [address] Social History Tobacco Use Types Packs/Day Years [...] 9:40 AM EDT Office Visit Cardiology at [address] [phone] Cody Martinez MD [facility] [place] [address] 10/22/2024 10:30 AM EST Office Visit Weight [place] [phone] Marialuisa Peres MD [facility] [place] [place] [address] documented as of this encounter Visit Diagnoses Not on filedocumented in this encounter Care Teams Labor And Delivery Nurse Relationship Specialty Start Date End Date Kerry Ascencio PA [address] [place] [address] [place] [address] PCP - General Internal Medicine 01/29/21 documented as of this encounter
--- OUTSIDE RECORDS SUMMARY | 2024-06-27 17:01 | XMS_ITS | Encounter Summary ---
[place] [address] Care Team Providers Care Skein Tier Name Role Phone Kerry Ascencio Primary Care Provider + Reason for Referral * Consultation (Routine) - Closed Specialty Diagnoses / Procedures Referred By Clari dickey Referred To Contact Neurology Diagnoses Vision changes Rhiannon Sheppard APRN [address] [facility] [place] [address] [facility] [address] [place] [phone] Referral ID Status Reason Start Date Expiration Date V isits Requested Visits Authorized [id number] Closed Consult, Test & Treat 03/07/2023 03/06/2024 1 1 Encounter Details Date Type Department Care Team (Late st Contact Info) Description 03/07/2023 Transcribe Orders eDH Incoming Referrals [phone] Rhiannon Sheppard APRN [address] [facility] [place] [address] Vision changes Social History Tobacco Use [...] 9:40 AM EDT Office Visit Cardiology at [address] [address] Cody Martinez MD [facility] [place] [address] 10/22/2024 10:30 AM EST Office Visit [place] [phone] Marialuisa Peres MD [facility] [place] [address] Scheduled Referrals Name Type Priority Associated Diagnoses Orde r Schedule Referral to Neurology Outpatient Referral Routine Vision changes Ordered: 03/07/2023 documented as of this encounter Visit Diagnoses Diagnosis Vision changes Unspecified visual disturbance documented in this encounter Care Teams Skein Tier Relationship Specialty Start Date End Date Kerry Ascencio PA [address] [place] [address] [place] [address] PCP - General Internal Medicine 01/29/21 documented as of this encounter
--- OUTSIDE RECORDS SUMMARY | 2024-06-27 17:01 | XMS_ITS | Encounter Summary ---
[place] [address] Care Team Providers Care Auto Inspector Name Role Phone Kerry Ascencio Primary Care Provider + Reason for Referral * Consultation (Routine) - Closed Specialty Diagnoses / Procedures Referred By Clari dickey Referred To Contact Gastroenterology Diagnoses Fatty (change of) liver, not elsewhere classified Kerry Ascencio PA [address] [place] [address] [place] [address] [facility] [place] [address] Referral ID Status Reason Start Date Expiration Date V isits Requested Visits Authorized [id number] Closed Consult, Test & Treat PCP Updated and/or Approved 05/04/2023 05/03/2024 6 6 Encounter Details Date Type Department Care Team (Late st Contact Info) Description 05/04/2023 Transcribe Orders eDH Incoming Referrals [phone] Kerry Ascencio PA [address] [place] [address] [place] [id number] Fatty (change of) liver, not elsewhere classified [...] 9:40 AM EDT Office Visit Cardiology at [address] [phone] Cody Martinez MD [facility] [place] [address] 10/22/2024 10:30 AM EST Office Visit [place] [phone] Marialuisa Peres MD [facility] [place] [address] Scheduled Referrals Name Type Priority Associated Diagnoses Order Schedule Referral to Gastroenterology Outpatient Referral Routine Fatty (change of) liver, not elsewhere classified Ordered: 05/04/2023 documented as of this encounter Visit Diagnoses Diagnosis Fatty (change of) liver, not elsewhere classified documented in this encounter Care Teams Auto Inspector Relationship Specialty Start Date End Date Kerry Ascencio PA [address] [place] [address] [place] [address] PCP - General Internal Medicine 01/29/21 documented as of this encounter
--- OUTSIDE RECORDS SUMMARY | 2024-06-27 17:01 | XMS_ITS | Encounter Summary ---
Author Organization [facility] [place] [address] Care Team Providers Care Kier Pleater Name Role Phone Kerry Ascencio Primary Care Provider + Reason for Referral * Consultation (Routine) - Authorized Specialty Diagnoses / Procedures Referred By Clari dickey Referred To Contact Weight and Wellness Diagnoses Prediabetes Kelly Miller APRN [facility] [place] [address] [facility] [place] [address] Referral ID Status Reason Start Date Expiration Date Visits Requested Visits Authorized [id number] Authorized Consult, Test & Treat 12/12/2023 12/11/2024 1 1 Encounter Details Date Type Department Care Team (Latest Contact Info) Description 12/12/2023 11:00 AM EDT Office [place] [address] Klely Miller APRN [facility] [place] [address] Prediabetes; Metabolic dysfunction-associated steatohepatitis (MASH); [...] AND SWELLING Alcohol Other reaction(s): RASH Gum Tornillo Other reaction(s): RASH Hydrocodone Other reaction(s): PRURITIS Methyl Salicylate Other reaction(s): RASH Storax Other reaction(s): RASH Tetrabenazine Other reaction(s): RASH,HIVES Amoxicillin Dog Dander Other reaction(s): WATERY EYES Flu Vac [id number](36mo,Up)(Pf) Rash Milk Morphine Sulfate CIS - Nausea/Vomiting [...] Alert, and oriented. Easily converses with this typewriter repairer. Comfortable wob in ra. Skin and sclera [...] APRN MSN Section of Gastroenterology [place] [address] Cc: GENE Crews documented in this encounter Plan of Treatment Upcoming Encounters Date Type Department Care Team (Late st Contact Info) Description 06/30/2024 9:40 AM EDT Office Visit Cardiology at [address] [phone] Cody Martinez MD [facility] [place] [address] 10/22/2024 10:30 AM EST Office Visit [place] [phone] Marialuisa Peres MD [facility] [place] [address] Scheduled Orders Name Type Priority Associated Diagnoses Orde r Schedule US Abdomen Limited Hepatology Protocol Imaging Routine [...] Ordered: 12/12/2023 documented as of this encounter Results * AFP tumor marker (06/13/2024 8:56 AM EDT) Alpha Fetoprotein Tumor Marker 4.7 <=8.3 ng/ml 06/13/2024 4:29 PM EDT [facility] Comment:This result was gene rated using a Carline Jackelyn immunoassay. Results obtained from other methods or manufacturers cannot be used interchangeably with this method. Blood VENOUS BLOOD SPECIMEN / Unknown Venipuncture / Unknown 06/13/2024 8:56 AM EDT 06/13/2024 8:56 AM EDT Kelly Miller SALES PLANNING COORDINATOR CHEMISTRY ORDERABL ES Performing Organization Address [facility] Co de Phone Number [facility] [place] [place] [address] * (ABNORMAL) Prothrombin Time (06/13/2024 8:56 AM EDT) Prothrombin Time 12.7(H) 9.4 - 12.5 sec 06/13/2024 9:15 AM EDT [facility] International Normalization Ratio 1.1 <=4.9 06/13/2024 9:15 AM EDT [facility] Comment: An INR < 2.0 indicates [...] EDT 06/13/2024 8:56 AM EDT Kelly Miller SALES PLANNING COORDINATOR HEMATOLOGY ORDERAB LES Performing Organization Address [facility]/ZIP Co de Phone Number [facility] [place] [place] [address] * (ABNORMAL) Comprehensive metabolic panel (non-fasting) (06/13/2024 8:56 AM EDT) Glucose 168 65 - 199 mg/dL 06/13/2024 9:32 AM EDT [facility] Comment:Glucose Concentratio n >=200 mg/dL plus symptoms is consistent with Diabetes Mellitus. Blood Urea Nitrogen 14 8 - 18 mg/dL 06/13/2024 9:32 AM [facility] Creatinine 0.77 0.70 - 1.20 mg/dL 06/13/2024 9:32 AM [facility] Sodium 138 135 - 145 mMol/L 06/13/2024 9:32 AM [facility] Potassium 3.6 3.5 - 5.0 mMol/L 06/13/2024 9:32 AM [facility] Chloride 104 98 - 107 mMol/L 06/13/2024 9:32 AM [facility] Carbon Dioxide 22 22 - 31 mMol/L 06/13/2024 9:32 AM [facility] Anion Gap 12 5 - 15 mMol/L 06/13/2024 9:32 AM [facility] Calcium 9.2 8.5 - 10.5 mg/dL 06/13/2024 9:32 AM [facility] Protein, Total 7.2 6.1 - 8.0 g/dL 06/13/2024 9:32 AM [facility] Albumin 4.0 3.2 - 5.2 g/dL 06/13/2024 9:32 AM [facility] Aspartate Aminotransferase 45(H) <=30 unit/L 06/13/2024 9:32 AM [facility] Alanine Aminotransferase 32(H) 0 - 30 unit/L 06/13/2024 9:32 AM [facility] Alkaline Phosphatase 140(H) 35 - 105 unit/L 06/13/2024 9:32 AM [facility] Bilirubin, Total 0.7 <=1.3 mg/dL 06/13/2024 9:32 AM [facility] Est Glomerular Filtration Rate - Female 86 mL/min/1. 73 m?? 06/13/2024 9:32 AM [facility] Comment: This patient's estimated GFR [...] Fasting Status No 06/13/2024 9:32 AM EDT [facility] Blood VENOUS BLOOD SPECIMEN / Unknown Venipuncture / Unknown 06/13/2024 8:56 AM EDT 06/13/2024 8:56 AM EDT Kelly Miller SALES PLANNING COORDINATOR CHEMISTRY ORDERABL ES [facility] [place] [address] * CBC (with Diff) (06/13/2024 8:56 AM EDT) White Blood Cell 6.89 4.00 - 9.50 x10(3)/mcL 06/13/2024 9:13 AM EDT [facility] Red Blood Cell 4.74 4.00 - 5.21 x10(6)/mcL 06/13/2024 9:13 AM [facility] Hemoglobin 14.4 11.7 - 15.5 g/dL 06/13/2024 9:13 AM [facility] Hematocrit 43.7 35.7 - 45.8 % 06/13/2024 9:13 AM [facility] Mean Cell Volume 92.2 82.6 - 94.4 fL 06/13/2024 9:13 AM [facility] Mean Cell Hemoglobin 30.4 27.1 - 32.0 pg 06/13/2024 9:13 AM [facility] Mean Cell Hemoglobin Concentration 33.0 31.7 - 35.0 g/dL 06/13/2024 9:13 AM [facility] Platelet 193 145 - 357 x10(3)/mcL 06/13/2024 9:13 AM [facility] Mean Platelet Volume 12.7 7.6 - 12.9 fL 06/13/2024 9:13 AM [facility] RDW Standard Deviation 45.6 37.0 - 46.0 fL 06/13/2024 9:13 AM [facility] RDW coefficient of variation 13.4 11.5 - 14.1 % 06/13/2024 9:13 AM [facility] NRBC% auto 0.0 % 06/13/2024 9:13 AM [facility] NRBC Absolute <0.01 <0.01 x10(3)/mcL 06/13/2024 9:13 AM [facility] Neutrophil % 56.4 % 06/13/2024 9:13 AM [facility] Neutrophil Absolute (ANC) - Automated 3.89 1.70 - 6.10 x10(3)/mcL 06/13/2024 9:13 AM [facility] Lymph % 31.5 % 06/13/2024 9:13 AM [facility] Lymph Absolute 2.17 0.90 - 3.20 x10(3)/mcL 06/13/2024 9:13 AM [facility] Monocyte % 7.3 % 06/13/2024 9:13 AM [facility] Monocyte Absolute 0.50 0.30 - 0.90 x10(3)/mcL 06/13/2024 9:13 AM [facility] Eos % 3.8 % 06/13/2024 9:13 AM [facility] Eos Absolute 0.26 0.00 - 0.40 x10(3)/mcL 06/13/2024 9:13 AM [facility] Basophil % 0.9 % 06/13/2024 9:13 AM [facility] Baso Absolute 0.06 0.00 - 0.10 x10(3)/mcL 06/13/2024 9:13 AM EDT [facility] Immature Gran % 0.1 % 9:13 AM EDT [facility] Immature Gran Absolute <0.04 0.00 - 0.04 x10(3)/mcL 06/13/2024 9:13 AM EDT [facility] Blood VENOUS BLOOD SPECIMEN / Unknown Venipuncture / Unknown 06/13/2024 8:56 AM EDT 06/13/2024 8:56 AM EDT Kelly Miller SALES PLANNING COORDINATOR HEMATOLOGY ORDERAB LES [facility] [place] [address] documented in this encounter Visit Diagnoses Diagnosis Prediabetes Other abnormal glucose Metabolic dysfunction-associated steatohepatitis (MASH) Hepatic fibrosis Cirrhosis of liver without mention of alcohol documented in this encounter Care Teams Kier Pleater Relationship Specialty Start Date End Date Kerry Ascencio PA [address] [place] [address] [place] [address] PCP - General Internal Medicine 01/29/21 documented as of this encounter
--- OUTSIDE RECORDS SUMMARY | 2024-06-27 17:01 | XMS_ITS | Encounter Summary ---
Author Organization [facility] Address [facility] [place] [address] Care Team Providers Care Overlock Hemmer Name Role Phone Kerry Ascencio Primary Care Provider + Encounter Details Date Type Department Care Team (Late st Contact Info) Description 03/21/2022 [place] [phone] Olman Davis MD [facility] [place] [address] Social History Tobacco Use Types Packs/Day Years [...] relief. Pt has appt with Dr. Rhoades tmmark for post op check but could not wait. Pt states pain is worse than previously. Gave pt appt today with DOC at 1045am. Pt was happy with this plan documented in this encounter Plan of Treatment Upcoming Encounters Date Type Department Care Team (Late st Contact Info) Description 06/30/2024 9:40 AM EDT Office Visit Cardiology at [address] [phone] Cody Martinez MD [facility] CARDIOLOGY [place], [place] [phone] 10/22/2024 10:30 AM EST Office Visit [place] [address] Marialuisa Peres MD [facility] [place] [address] documented as of this encounter Visit Diagnoses Not on filedocumented in this encounter Care Teams Overlock Hemmer Relationship Specialty Start Date End Date Kerry Ascencio PA [address] [place] [address] [place] [address] PCP - General Internal Medicine 01/29/21 documented as of this encounter
--- OUTSIDE RECORDS SUMMARY | 2024-06-27 17:01 | XMS_ITS | Encounter Summary ---
Author Organization [facility] [place] [address] Care Team Providers Care Supervisor Silvering Department Name Role Phone Kerry Ascencio Primary Care Provider + Encounter Details Date Type Department Care Team (Late st Contact Info) Description 12/25/2022 8:30 AM EDT Tech [place] [address] Pastora Dutta, RVT Coronary arteriosclerosis; Hypertension, unspecified [...] AM EDT Office Visit Cardiology at [address] [phone] Soha Irving MD [facility] [place] [address] 10/22/2024 10:30 AM EST Office Visit [place] [phone] Marialuisa Peres MD [facility] [place] [address] documented as of this encounter Procedures Procedure Name Priority Date/Time Associated Diagnosis Comments ARLEEN, LEGS, MULTIPLE LEVELS Routine 12/25/2022 8:39 AM EDT Coronary arteriosclerosis Hypertension, unspecified type Hyperlipidemia, unspecified hyperlipidemia type SVT (supraventricular tachycardia) MOISES (obstructive sleep apnea) Intermittent claudication documented in this encounter Results * ARLEEN, legs, multiple levels (12/25/2022 8:39 AM EDT) VB Text Report Department: Vascular Surgery Lab Patient: [id number] (AGATHA YI) CPT: [id number] Referring Physician: SOHA IRVING ?? Indications: ??Bilateral [...] Coronary atherosclerosis of unspecified type of vessel, confederated salish or graft Hypertension, unspecified type Hyperlipidemia, unspecified hyperlipidemia type SVT (supraventricular tachycardia) Other specified cardiac dysrhythmias MOISES (obstructive sleep apnea) Obstructive sleep apnea (adult) (pediatric) Intermittent claudication Peripheral vascular disease, unspecified documented in this encounter Care Teams Supervisor Silvering Department Relationship Specialty Start Date End Date Kerry Ascencio PA [address] [place] [address] [place] [address] PCP - General Internal Medicine 01/29/21 documented as of this encounter
--- OUTSIDE RECORDS SUMMARY | 2024-06-27 17:01 | XMS_ITS | Encounter Summary ---
Author Organization [facility] [place] [address] Care Team Providers Care Wood Flour Miller Name Role Phone Kerry Ascencio Primary Care [...] 9:40 AM EDT Office Visit Cardiology at [address] [phone] Cody Martinez MD [facility] [place] [address] 10/22/2024 10:30 AM EST Office Visit [place] [phone] Marialuisa Peres MD [facility] [place] [address] documented as of this encounter Visit Diagnoses Not on filedocumented in this encounter Care Teams Wood Flour Miller Relationship Specialty Start Date End Date Kerry Ascencio PA [address] [place] [address] [place] [address] PCP - General Internal Medicine 01/29/21 documented as of this encounter
--- OUTSIDE RECORDS SUMMARY | 2024-06-27 17:01 | XMS_ITS | Encounter Summary ---
Author Organization [facility] Address [facility] [place] [address] Care Team Providers Care Vending Route Driver Name Role Phone Kerry Ascencoi Primary Care Provider + Encounter Details Date Type Department Care Team (Late st Contact Info) Description 04/13/2023 [place] [phone] Jorge L Minor MD [facility] [place] [address] Social History Tobacco Use Types Packs/Day Years [...] AM EDT Office Visit Cardiology at [address] [phone] Cody Martinez MD [facility] [place] [address] 10/22/2024 10:30 AM EST Office Visit [place] [phone] Marialuisa Peres MD [facility] [place] [address] documented as of this encounter Visit Diagnoses Not on filedocumented in this encounter Care Teams Vending Route Driver Relationship Specialty Start Date End Date Kerry Ascencio PA [address] [place] [address] [place] [address] PCP - General Internal Medicine 01/29/21 documented as of this encounter
--- OUTSIDE RECORDS SUMMARY | 2024-06-27 17:01 | XMS_ITS | Encounter Summary ---
Author Organization [facility] Address [facility] [place] [address] Care Team Providers Care Routeman Name Role Phone Kerry Ascencio Primary Care Provider + Reason for Visit * Reason Comments Left Shoulder Pain LEFT SHOULDER PAIN 2 ND OPINION PH THREE ROTATOR CUFF REPAIRS. * Consultation (Routine) - Authorized Specialty Diagnoses / Procedures Referred By Clari dickey Referred To Contact Orthopaedics Diagnoses Strain of muscle(s) and tendon(s) of the rotator cuff of left shoulder, initial encounter Angel Sears MD [address] [address] Cortez Ross MD [facility] [place] [address] Referral ID Status Reason Start Date Expiration Date Visits Requested Visits Authorized [id number] Authorized Consult, Test & Treat PCP Updated and/or Approved 3 08/14/2024 6 6 Encounter Details Date Type Department Care Team (Late st Contact Info) Description 10/11/2023 11:20 AM EST Office [place] [address] Cortez Ross MD [facility] [place] [address] Chronic pain in left shoulder Social History [...] Name: Agatha Yi AGE: 63 y.o. MR#: [id number] Date of Visit: 10/11/2023 Date of Injury/Onset: [...] Right 01/06/2022 Mammo Us Biopsy Right 01/06/2022 [facility] RAD MAMMOGRAPHY PRO EXTRACAPSULAR CATARACT RMVL INSERTION IO LENS PROSTH W/O ECP Right 02/20/2022 CATARACT EXTRACTION, EXTRACAPSULAR, W/ LENS INSERTION (WRVU 8.52) performed by Ant Rhoades MD at [facility] OSC Family Hx: Family History Problem Relation [...] Negative Biceps/Labrum Groove TTP: Negative Speeds: Negative Martin's: Negative AC Joint TTP: Positive Cross-body: Positive [...] less than $15,000 # People Supported 2 [place], , No, not Equ[place]// Race or White Health Literacy Extremely Currently working No Not working because: Not working due to disability 10/07/2023 [facility] Response ASES VAS-LEFT 5 ASES [...] they have any other questions or concerns. PHIL PizanoC Department of Orthopaedic Surgery [facility] The above documentation was partially completed using [employer] voice recognition software. * Cortez Ross MD - 10/11/2023 11:20 AM EST Orthopedic surgery attending note: I have seen this patient in conjunction with the physician marketing support assistant. I agree with the note and [...] 9:40 AM EDT Office Visit Cardiology at [address] [phone] Cody Martinez MD [facility] [place] [address] 10/22/2024 10:30 AM EST Office Visit [place] [address] Marialuisa Peres MD [facility] [place] [address] documented as of this encounter Results * [...] who have questions please contact the health prompt care rn that requested your imaging first. ? Electronically signed by: Dana Alanis MD, [facility] ([phone]), at 10/12/2023 8:42 AM Narrative 10/12/2023 8:42 [...] patients who have questions please contactthe health prompt care rn that requested your imaging first. Electronically signed by: Dana Alanis MD, [facility]([phone]), at 10/12/2023 8:42 AM Cortez Ross MD IMG DX ORDERABLES documented in this encounter Visit Diagnoses Diagnosis Chronic pain in left shoulder Pain in joint, shoulder region Chronic pain in left shoulder Pain in joint, shoulder region documented in this encounter Care Teams Routeman Relationship Specialty Start Date End Date Kerry Ascencio PA [address] [place] [address] [place] [address] PCP - General Internal Medicine 01/29/21 documented as of this encounter
--- OUTSIDE RECORDS SUMMARY | 2024-06-27 17:01 | XMS_ITS | Encounter Summary ---
[place] [address] Care Team Providers Care Gate Tender Name Role Phone Kerry Ascencio Primary Care Provider + Reason for Referral * Consultation (Routine) - Duplicate Referral Specialty Diagnoses / Procedures Referred By Clari dickey Referred To Contact Orthopaedics Diagnoses Sternoclavicular joint pain, unspecified laterality Angel Sears MD [address] [place] [address] [facility] Orthopa[facility]ics [address] [place] [phone] Referral ID Status Reason Start Date Expiration Date Visits Requested Visits Authorized [id number] Duplicate Referral Consult, Test & Treat 10/05/2023 10/04/2024 6 6 Encounter Details Date Type Department Care Team (Latest Contact Info) Description 10/05/2023 Transcribe Orders eD Incoming Referrals [phone] Angel Sears MD [address] [place], [place] [address] Sternoclavicular joint pain, unspecified laterality Social History [...] AM EDT Office Visit Cardiology at [address] [phone] Cody Martinez MD [facility] [place] [address] 10/22/2024 10:30 AM EST Office [place] [phone] Marialuisa Peres MD [facility] [place] [address] Scheduled Referrals Name Type Priority Associated Diagnoses Orde r Schedule Referral to Orthopaedics Outpatient Referral Routine Sternoclavicular joint pain, unspecified laterality Ordered: 10/05/2023 documented as of this encounter Visit Diagnoses Diagnosis Sternoclavicular joint pain, unspecified laterality documented in this encounter Care Teams Gate Tender Relationship Specialty Start Date End Date Kerry Ascencio PA [address] [place] [address] [place] [address] PCP - General Internal Medicine 01/29/21 documented as of this encounter
--- OUTSIDE RECORDS SUMMARY | 2024-06-27 17:01 | XMS_ITS | Encounter Summary ---
Author Organization [facility] Address [facility] [place] [address] Care Team Providers Care Assistant Professor Name Role Phone Kerry Ascencio Primary Care Provider + Reason for Visit * Reason Comments Medication Refill Encounter Details Date Type Department Care Team (Late st Contact Info) Description 12/24/2023 Refill Cardiology at [address] [phone] Philippe Cardenas PA [facility] [place] [address] Medication Refill Social History Tobacco Use Types [...] 9:40 AM EDT Office Visit Cardiology at [address] [phone] Cody Martinez MD [facility] [place] [address] 10/22/2024 10:30 AM EST Office Visit [place] [address] Marialuisa Peres MD [facility] [place] [address] documented as of this encounter Visit Diagnoses Diagnosis SVT (supraventricular tachycardia) Other specified cardiac dysrhythmias documented in this encounter Care Teams Assistant Professor Relationship Specialty Start Date End Date Kerry Ascencio PA [address] [place] [address] [place] [address] PCP - General Internal Medicine 01/29/21 documented as of this encounter
--- OUTSIDE RECORDS SUMMARY | 2024-06-27 17:01 | XMS_ITS | Encounter Summary ---
Author Organization [facility] Address [facility] [place] [address] Care Team Providers Care Shoe Cementer Name Role Phone Kerry Ascencio Primary Care Provider + Encounter Details Date Type Department Care Team (Late st Contact Info) Description 04/19/2022 Telephone [place] [address] Ant Rhoades MD [facility] [place] [address] Social History Tobacco Use Types Packs/Day Years [...] Dr. Lopez at [facility] called today, she saw patient recently, apparently [...] 9:40 AM EDT Office Visit Cardiology at [address] [phone] Cody Martinez MD [facility] [place] [address] 10/22/2024 10:30 AM EST Office Visit Weight [place] [phone] Marialuisa Peres MD [facility] [place] [address] documented as of this encounter Visit Diagnoses Not on filedocumented in this encounter Care Teams Shoe Cementer Relationship Specialty Start Date End Date Kerry Ascencio PA [address] [place] [address] JENI MUNOZ [address] PCP - General Internal Medicine 01/29/21 documented as of this encounter
--- OUTSIDE RECORDS SUMMARY | 2024-06-27 17:01 | XMS_ITS | Encounter Summary ---
Author Organization [facility] Address [facility] [place] [address] Care Team Providers Care Core Paster Name Role Phone Kerry Ascencio Primary Care Provider + Encounter Details Date Type Department Care Team (Late st Contact Info) Description 04/27/2022 12:30 PM EDT [place] [address] Ant Rhoades MD [facility] [place] [address] Iritis Social History Tobacco Use Types Packs/Day [...] HVF,OCT Fabian Brady MD PGY-2 Ophthalmology Pager #[phone] I saw the patient with the following [...] 9:40 AM EDT Office Visit Cardiology at [address] [phone] Cody Martinez MD [facility] [place] [address] 10/22/2024 10:30 AM EST Office Visit [place] [address] Marialuisa Peres MD [facility] [place] [address] documented as of this encounter Visit Diagnoses Diagnosis Iritis Unspecified iridocyclitis documented in this encounter Care Teams Core Paster Relationship Specialty Start Date End Date Kerry Ascencio PA NPI: [id number] [place] [address] [place] [address] PCP - General Internal Medicine 01/29/21 documented as of this encounter
--- OUTSIDE RECORDS SUMMARY | 2024-06-27 17:01 | XMS_ITS | Encounter Summary ---
Author Organization [facility] [place] [address] Care Team Providers Care Community Health Planning Director Name Role Phone Kerry Ascencio Primary [...] 9:40 AM EDT Office Visit Cardiology at [address] [phone] Cody Martinez MD [facility] [place] [address] 10/22/2024 10:30 AM EST Office Visit [place] [phone] Marialuisa Peres MD [facility] [place] [address] documented as of this encounter Visit Diagnoses Not on filedocumented in this encounter Care Teams Community Health Planning Director Relationship Specialty Start Date End Date Kerry Ascencio PA [address] [place] [address] [place] [address] PCP - General Internal Medicine 01/29/21 documented as of this encounter
--- OUTSIDE RECORDS SUMMARY | 2024-06-27 17:01 | XMS_ITS | Encounter Summary ---
Author Organization [facility] Address [facility] [place] [address] Care Team Providers Care Acidizer Helper Name Role Phone Kerry Ascencio Primary Care Provider + Reason for Visit * Reason Comments Eye Problem Pain OD Encounter Details Date Type Department Care Team (Late st Contact Info) Description 03/21/2022 11:15 AM EDT Office [place] [address] Olman Davis MD [facility] [place] [address] Status post cataract extraction and insertion of intraocular lens, right; Eye pain, right Social History Tobacco Use Types Packs/Day Years Used Date Smoking Tobacco: Former Cigarettes 974 1983 Smokeless Tobacco: Never Alcohol Use [...] and they expressed understanding. Aline Cervantes MD [facility] Ophthalmology PGY2 [id number] I saw the patient [...] 9:40 AM EDT Office Visit Cardiology at [address] [phone] Cody Martinez MD [facility] [place] [address] 10/22/2024 10:30 AM EST Office Visit [place] [phone] Marialuisa Peres MD [facility] [place] [address] documented as of this encounter Visit Diagnoses Diagnosis Status post cataract extraction and insertion of intraocular lens, right Eye pain, right documented in this encounter Care Teams Acidizer Helper Relationship Specialty Start Date End Date Kerry Ascencio PA [address] [place] [address] [place] [address] PCP - General Internal Medicine 01/29/21 documented as of this encounter
--- OUTSIDE RECORDS SUMMARY | 2024-06-27 17:01 | XMS_ITS | Encounter Summary ---
Author Organization [facility] Boris [place] [address] Care Team Providers Care Metalsmith Name Role Phone Kerry Ascencio Primary Care Provider + Encounter Details Date Type Department Care Team (Late st Contact Info) Description 07/06/2023 Ancillary Procedure Radiology Library at [facility] [address] [place] [address] Kerry Ascencio PA [address] [place] [address] [place], [place] [address] Social History Tobacco Use Types Packs/Day Years [...] AM EDT Office Visit Cardiology at [address] [place] [phone] Cody Martinez MD [facility] [address] [place] [address] 10/22/2024 10:30 AM EST Office Visit [place] [address] Marialuisa Peres MD [facility] [place] [address] documented as of this encounter Procedures Procedure Name Priority Date/Time Associated Diagnosis Comments FILM LIBRARY STORAGE ONLY DX KNEE Routine 07/06/2023 12:00 AM EDT documented in this encounter Results * Film Library- Storage Only DX Knee (07/06/2023 12:00 AM EDT) Narrative [facility] - 08/23/2023 4:28 PM EST This exam is auto-finalizing. It's purpose is for storage only. Kerry MILLS IMFidelina FILM LIBRARY ORDERABLES Performing Organization Address City/State/[facility] Co de Phone Number [place], [place] documented in this encounter Visit Diagnoses Not on filedocumented in this encounter Care Teams Metalsmith Relationship Specialty Start Date End Date Kerry Ascencio PA [address] [place] [address] [place] [address] PCP - General Internal Medicine 01/29/21 documented as of this encounter
--- OUTSIDE RECORDS SUMMARY | 2024-06-27 17:01 | XMS_ITS | Encounter Summary ---
[place] [address] Care Team Providers Care Sleeve Baster Name Role Phone Kerry Ascencio Primary Care Provider + Encounter Details Date Type Department Care Team (Late st Contact Info) Description 01/10/2023 Telephone Cardiology at [address] [phone] Ally Meza, RN Social History Tobacco Use [...] message from patient,states she is in the [facility] ED -requesting team RN contact her daughter Lelia for more information -[phone]. Telephone call to Lelia -states her mother [...] 9:40 AM EDT Office Visit Cardiology at [address] [phone] Cody Martinez MD [facility] [place] [address] 10/22/2024 10:30 AM EST Office Visit Weight and Wellness at [place] [phone] Marialuisa Peres MD [facility] [place] [address] documented as of this encounter Visit Diagnoses Not on filedocumented in this encounter Care Teams Sleeve Baster Relationship Specialty Start Date End Date Kerry Ascencio PA [address] [place] [address] [place] [address] PCP - General Internal Medicine 01/29/21 documented as of this encounter
--- OUTSIDE RECORDS SUMMARY | 2024-06-27 17:01 | XMS_ITS | Encounter Summary ---
Author Organization [facility] Address [facility] [place] [address] Care Team Providers Care Stamping Die Maker Name Role Phone Kerry Ascencio Primary Care Provider + Reason for Visit * Reason Onset Date Comments Appointment 10/11/2023 Encounter Details Date Type Department Care Team (Late st Contact Info) Description 10/11/2023 Telephone [place] [address] Cortez Ross MD [facility] [place] [address] Appointment Social History Tobacco Use Types Packs/Day [...] 9:40 AM EDT Office Visit Cardiology at [address] [phone] Cody Martinez MD [facility] [place] [address] 10/22/2024 10:30 AM EST Office Visit [place] [phone] Marialuisa Peres MD [facility] [place] [address] documented as of this encounter Visit Diagnoses Not on filedocumented in this encounter Care Teams Stamping Die Maker Relationship Specialty Start Date End Date Kerry Ascencio PA [address] [place] [address] [place] [address] PCP - General Internal Medicine 01/29/21 documented as of this encounter
--- OUTSIDE RECORDS SUMMARY | 2024-06-27 17:01 | XMS_ITS | Encounter Summary ---
Author Organization [facility] [place] [place] [address] Care Team Providers Care Showroom Consultant Name Role Phone Kerry Ascencio Primary Care [...] 9:40 AM EDT Office Visit Cardiology at [address] [phone] Cody Martinez MD [facility] [place] [address] 10/22/2024 10:30 AM EST Office Visit Weight [place] [phone] Marialuisa Peres MD [facility] [place] [address] documented as of this encounter Visit Diagnoses Not on filedocumented in this encounter Care Teams Showroom Consultant Relationship Specialty Start Date End Date Kerry Ascencio PA [address] [place] [address] [place] [address] PCP - General Internal Medicine 01/29/21 documented as of this encounter
--- OUTSIDE RECORDS SUMMARY | 2024-06-27 17:01 | XMS_ITS | Encounter Summary ---
Author Organization [facility] [place] [address] Care Team Providers Care Blade Groover Name Role Phone Kerry Ascencio Primary Care Provider + Encounter Details Date Type Department Care Team (Late st Contact Info) Description 08/11/2022 Ancillary Procedure Radiology Library at [facility] [address] [place] [address] Kerry Ascencio PA [address] [place] [address] [place], [place] [address] Social History Tobacco Use Types Packs/Day Years [...] 9:40 AM EDT Office Visit Cardiology at [address] [place] [phone] Cody Martinez MD [facility] [address] [place] [address] 10/22/2024 10:30 AM EST Office Visit Weight [place] [address] Marialuisa Peres MD [facility] [place] [address] documented as of this encounter Procedures Procedure Name Priority Date/Time Associated Diagnosis Comments FILM LIBRARY STORAGE ONLY MR SHOULDER Routine 08/11/2022 12:00 AM EST documented in this encounter Results * Film Library- Storage Only MR Shoulder (08/11/2022 12:00 AM EST) Narrative [facility] - 08/08/2023 11:11 AM EST This exam is auto-finalizing. It's purpose is for storage only. Kerry MILLS IMFidelina FILM LIBRARY ORDERABLES [place], [place] documented in this encounter Visit Diagnoses Not on filedocumented in this encounter Care Teams Blade Groover Relationship Specialty Start Date End Date Kerry Ascencio PA [address] [place] [address] [place] [address] PCP - General Internal Medicine 01/29/21 documented as of this encounter
--- OUTSIDE RECORDS SUMMARY | 2024-06-27 17:01 | XMS_ITS | Encounter Summary ---
Author Organization [facility] [place] [address] Care Team Providers Care Special Shopper Name Role Phone Kerry Ascencio Primary Care Provider + Reason for Visit * Reason Onset Date Comments Other 03/31/2022 Reporting visit from [facility] Encounter Details Date Type Department Care Team (Late st Contact Info) Description 03/31/2022 [place] [address] Ant Rhoades MD [facility] [place] [address] Other (Reporting visit from [facility]) Social History Tobacco Use Types Packs/Day Years [...] redness which is unchanged from visit at [facility]. Has not received notice from pharmacy regarding eye drops/change from Bromfenac to Ketorolac/still pending EAS approval. She does not feel this is urgent, just did not hear back for EAS/[place]. [facility] [place] and she was encouraged to do so. Forwarded to EAS/[place] for call back. * Telephone Encounter - Conchita Mckeon COT - 03/31/2022 9:43 AM EDT Notes in MEDIA * Telephone Encounter - Conchita Mckeon COT - 03/31/2022 9:31 AM EDT Patient getting post op care with local eye care ([facility]) due to travel hardship.She is calling [...] 9:40 AM EDT Office Visit Cardiology at [address] [phone] Cody Martinez MD [facility] [place] [address] 10/22/2024 10:30 AM EST Office Visit [place] [phone] Marialuisa Peres MD [facility] [place] [address] documented as of this encounter Visit Diagnoses Not on filedocumented in this encounter Care Teams Special Shopper Relationship Specialty Start Date End Date Kerry Ascencio PA [address] [place] [address] [place] [address] PCP - General Internal Medicine 01/29/21 documented as of this encounter
--- OUTSIDE RECORDS SUMMARY | 2024-06-27 17:01 | XMS_ITS | Encounter Summary ---
[place] [address] Care Team Providers Care High School Music Instructor Name Role Phone Kerry Ascencio Primary Care Provider + Reason for Visit * Reason Onset Date Comments Hypertension 12/04/2022 PCP changed meds and I don't feel well Encounter Details Date Type Department Care Team (Late st Contact Info) Description 12/04/2022 Telephone Cardiology at [address] [phone] Aracely Tran, RN Hypertension (PCP changed meds [...] place and I don't feel well, Left [id number] and Right arm 143/78 Chart reviewed. LV 01-11-22 with palpitations FUV 12-21-22 Call to pt who reports she is now on Verapamil 80 mg twice per day She now has a pulsing in her yarsani, headache over her Left eye, Hr is [...] 9:40 AM EDT Office Visit Cardiology at [address] [phone] Cody Martinez MD [facility] [place] [address] 10/22/2024 10:30 AM EST Office Visit [place] [address] Marialuisa Peres MD [facility] [place] [address] documented as of this encounter Visit Diagnoses Not on filedocumented in this encounter Care Teams High School Music Instructor Relationship Specialty Start Date End Date Kerry Ascencio PA [address] [place] [address] [place] [address] PCP - General Internal Medicine 01/29/21 documented as of this encounter
--- OUTSIDE RECORDS SUMMARY | 2024-06-27 17:01 | XMS_ITS | Encounter Summary ---
Author Organization [facility] [place] [address] Care Team Providers Care Neurourologist Name Role Phone Kerry Ascencio Primary Care Provider + Encounter Details Date Type Department Care Team (Latest Contact Info) Description 12/12/2023 9:30 AM EDT Laboratory Appointment Lab [address] [place] [address] Hepatic steatosis; Prediabetes; Elevated liver function tests; [...] 9:40 AM EDT Office Visit Cardiology at [address] [phone] Cody Martinez MD [facility] [place] [address] 10/22/2024 10:30 AM EST Office Visit [place] [address] [place] [address] documented as of this encounter Procedures Procedure Name Priority Date/Time Associated Diagnosis Comments HEMOGRAM Routine 12/12/2023 9:29 AM EDT Hepatic steatosis Prediabetes Elevated liver function tests Hepatic fibrosis DIFFERENTIAL, AUTOMATED Routine 12/12/2023 9:29 AM EDT Hepatic steatosis Prediabetes Elevated liver function tests Hepatic fibrosis PROTHROMBIN TIME Routine 12/12/2023 9:29 AM EDT Hepatic steatosis Prediabetes Elevated liver function tests Hepatic fibrosis CBC (WITH DIFF) Routine 12/12/2023 9:29 AM EDT Hepatic steatosis Prediabetes Elevated liver function tests Hepatic fibrosis HEMOGLOBIN A1C Routine 12/12/2023 9:29 AM EDT COMPREHENSIVE METABOLIC PANEL Routine 12/12/2023 9:29 AM EDT Hepatic steatosis Prediabetes Elevated liver function tests Hepatic fibrosis documented in this encounter Results * (ABNORMAL) Hemoglobin A1c (12/12/2023 9:29 AM EDT) Hemoglobin A1c 6.1(H) 4.3 - 5.6 % [facility] Comment: Reference Range: 4.3 - [...] Mellitus, Diabetes Care 2013; 36: Suppl. 1, S67-24 Estimated Average Glucose 128 mg/dL [facility] Blood Venous Draw / Unknown 12/12/2023 9:29 AM EDT 12/12/2023 11:29 AM EDT Narrative Resulting Agency Comment Spec In Lab Kelly Miller RAILROAD SHOP INSPECTOR CHEMISTRY ORDERABL ES Performing Organization Address City/[facility]/[place]IP [place] [address] * (ABNORMAL) Differential, Automated (12/12/2023 9:29 AM EDT) Neutrophil % 61.9 % [facility] Neutrophil Absolute 4.84 1.70 - 6.10 x10(3)/mc L [facility] Lymph % 28.0 % [facility] Lymphocytes Abs 2.2 0.9 - 3.2 x10(3)/mc L [facility] Monocyte % 6.1 % [facility] Monocyte Abs 0.5 0.3 - 0.9 x10(3)/mc L [facility] Eos % 2.2 % [facility] Eosinophils Abs 0.2 0.0 - 0.4 x10(3)/mc L [facility] Basophil % 0.9 % [facility] Baso Absolute 0.1 0.0 - 0.1 x10(3)/mc L [facility] Immature Gran % 0.90 % [facility] Comment: Immature granulocytes(IG's)percentage and absolute count will include metamyelocytes, myelocytes, and promyelocytes. Blood smears from CBCs yielding IG's will be scanned manually for concordance. If this scan disagrees with the automated IG or if promyelocytes are noted, a manual differential will be performed. Immature Gran Absolute 0.07(H) 0.00 - 0.04 x10(3)/mc L [facility] Blood 12/12/2023 9:29 AM EDT 12/12/2023 9:37 AM EDT Narrative Resulting Agency Comment Spec In Lab Kelly Miller RAILROAD SHOP INSPECTOR HEMATOLOGY ORDERAB LES Performing Organization Address City/[facility]/ZIP Co de Phone Number [facility] [place] [address] * (ABNORMAL) Hemogram (12/12/2023 9:29 AM EDT) Pathologist [facility] White Blood Cell 7.8 4.0 - 9.5 x10(3)/ L [facility] Red Blood Cell 5.22(H) 4.00 - 5.21 x10(6)/mc L [facility] Hemoglobin 16.0(H) 11.7 - 15.5 g/dL [facility] Hematocrit 46.9(H) 35.7 - 45.8 % [facility] Mean Cell Volume 89.8 82.6 - 94.4 fL [facility] Mean Cell Hemoglobin 30.7 27.1 - 32.0 pg [facility] Mean Cell Hemoglobin Concentration 34.1 31.7 - 35.0 g/dL [facility] Platelet 206 145 - 357 x10(3)/[facility]AT[facility] RDW Standard Deviation 43.8 37.0 - 46.0 [facility]ATORY RDW coefficient of variation 13.4 11.5 - 14.1 % [facility] Mean Platelet Volume 13.2(H) 7.6 - 12.9 fL [facility] NRBC% auto 0.0 % [facility] NRBC Absolute 0.000 0.000 - 0.000 x10(3)/[facility]ORATORY Blood 12/12/2023 9:29 AM EDT 12/12/2023 9:37 AM EDT Narrative Resulting Agency Comment Spec In Lab Kelly Miller RAILROAD SHOP INSPECTOR HEMATOLOGY ORDERAB LES [facility] [place] [address] * (ABNORMAL) Comprehensive metabolic panel (non-fasting) (12/12/2023 9:29 AM EDT) [facility] Glucose 148 65 - 199 mg/dL [facility] Comment:Diabetes: >=200 mg/d L plus symptoms Blood Urea Nitrogen 13 8 - 18 mg/dL [facility] Creatinine 0.89 0.70 - 1.20 mg/dL [facility] Sodium 139 135 - 145 mmol/L [facility] Potassium 4.1 3.5 - 5.0 mmol/L [facility] Comment: Please note: ??Patients with WBC >100,000 may have falsely elevated Potassium levels. ??For accurate Potassium quantification in these patients send serum separator tube (gold top) for subsequent determinations. ??Contact the Clinical Chemistry Laboratory if there are any questions. Chloride 103 98 - 107 mmol/L [facility] Carbon Dioxide 25 22 - 31 mmol/L [facility] Anion Gap 11 5 - 15 mmol/L [facility] Calcium 9.7 8.5 - 10.5 mg/dL [facility] Protein, Total 7.8 6.1 - 8.0 g/dL [facility] Albumin 4.4 3.2 - 5.2 g/dL [facility] Aspartate Aminotransferase 47(H) 0 - 30 unit/L [facility] Alanine Aminotransferase 30 0 - 30 unit/L [facility] Alkaline Phosphatase 148(H) 35 - 105 unit/L [facility] Bilirubin, Total 0.7 0.2 - 1.3 mg/dL [facility] Est Glomerular Filtration Rate 73 >=60 mL/min/1. 73 m?? [facility] Comment: This patient's estimated GFR [...] Agency Comment Spec In Lab Kelly Miller RAILROAD SHOP INSPECTOR CHEMISTRY ORDERABL ES Performing Organization Address [facility] de Phone Number [facility] [place] [address] * Prothrombin Time (12/12/2023 9:29 AM EDT) Prothrombin Time 12.4 9.4 - 12.5 sec [facility] International Normalization Ratio 1.1 [facility] Comment: An INR <2.0 indicates [...] Agency Comment Spec In Lab Kelly Miller RAILROAD SHOP INSPECTOR HEMATOLOGY ORDERAB LES Performing Organization Address [facility] de Phone Number [facility] [place] [address] documented in this encounter Visit Diagnoses Diagnosis Hepatic steatosis Other chronic nonalcoholic liver disease Prediabetes Other abnormal glucose Elevated liver function tests Other abnormal blood chemistry Hepatic fibrosis Cirrhosis of liver without mention of alcohol documented in this encounter Care Teams Neurourologist Relationship Specialty Start Date End Date Kerry Ascencio PA [address] [place] [address] [place] [address] PCP - General Internal Medicine 01/29/21 documented as of this encounter
--- OUTSIDE RECORDS SUMMARY | 2024-06-27 17:01 | XMS_ITS | Encounter Summary ---
Author Organization [facility] Address [facility] [place] [address] Care Team Providers Care Ornamental Iron Worker Apprentice Name Role Phone Kerry Ascencio Primary Care Provider + Encounter Details Date Type Department Care Team (Late st Contact Info) Description 10/11/2023 Orders [place] [address] Grace Qureshi PA [facility] [place] [address] Social History Tobacco Use Types Packs/Day Years [...] 9:40 AM EDT Office Visit Cardiology at [address] [phone] Cody Martinez MD [facility] [place] [address] 10/22/2024 10:30 AM EST Office Visit Weight [place] [address] Marialuisa Peres MD [facility] [place] [address] documented as of this encounter Visit Diagnoses Not on filedocumented in this encounter Care Teams Ornamental Iron Worker Apprentice Relationship Specialty Start Date End Date Kerry Ascencio PA [address] [place] [address] [place] [address] PCP - General Internal Medicine 01/29/21 documented as of this encounter
--- OUTSIDE RECORDS SUMMARY | 2024-06-27 17:01 | XMS_ITS | Encounter Summary ---
Author Organization [facility] Address [facility] [place] [address] Care Team Providers Care Vice President Of Operations Name Role Phone Kerry Ascencio Primary Care Provider + Encounter Details Date Type Department Care Team (Late st Contact Info) Description 10/12/2023 Telephone [place] [address] Cortez Ross MD [facility] [place] [address] Social History Tobacco Use Types Packs/Day Years [...] AM EDT Office Visit Cardiology at [address] [address] Cody Martinez MD [facility] [place] [address] 10/22/2024 10:30 AM EST Office Visit Weight and Wellness at [place] [phone] Marialuisa Peres MD [facility] [place] [address] documented as of this encounter Visit Diagnoses Not on filedocumented in this encounter Care Teams Vice President Of Operations Relationship Specialty Start Date End Date Kerry Ascencio PA [address] [place] [address] [place] [address] PCP - General Internal Medicine 01/29/21 documented as of this encounter
--- OUTSIDE RECORDS SUMMARY | 2024-06-27 17:01 | XMS_ITS | Encounter Summary ---
[place] [address] Care Team Providers Care Energy Conservation Engineer Name Role Phone Kerry Ascencio Primary Care Provider + Encounter Details Date Type Department Care Team (Late st Contact Info) Description 01/15/2023 Telephone Cardiology at [address] [address] Julissa Mason RN Social History Tobacco Use [...] when she went to the ED at [facility] last week. She had to take monitor off early - due to allergic reaction. Asking what she should do. Patient phone line was busy at the time of my return call so I could not leave a message. I have asked Spar Machine Operator to request copy of ED note and test results as they do not seem to be in the patient record at this time. Julissa Mason RN, BSN Ambulatory Cardiology Department documented in this encounter Plan of Treatment Upcoming Encounters Date Type Department Care Team (Late st Contact Info) Description 06/30/2024 9:40 AM EDT Office Visit Cardiology at [address] [address] Cody Martinez MD [facility] [place] [address] 10/22/2024 10:30 AM EST Office Visit Weight [place] [address] Marialuisa Peres MD [facility] [place] [address] documented as of this encounter Visit Diagnoses Not on filedocumented in this encounter Care Teams Energy Conservation Engineer Relationship Specialty Start Date End Date Kerry Ascencio PA [address] [place] [address] [place] [address] PCP - General Internal Medicine 01/29/21 documented as of this encounter
--- OUTSIDE RECORDS SUMMARY | 2024-06-27 17:01 | XMS_ITS | Encounter Summary ---
Author Organization [facility] Address [facility] [place] [address] Care Team Providers Care Loader Name Role Phone Kerry Ascencio Primary Care Provider + Reason for Referral * Consultation (Routine) - Specialty Diagnoses / Procedures Referred By Clari dickey Referred To Contact Ophthalmology Diagnoses Vision changes Discomfort of right eye Papilledema Cecilia Brower APRN HOSPITALIST SERVICES [address] [place] [address] [place] [address] Erwin Santoyo MD [facility] [place] [address] Referral ID Status Reason Start Date Expiration Date V isits Requested Visits Authorized [id number] Consult, Test & Treat PCP Updated and/or Approved 04/11/2023 04/10/2024 6 6 Encounter Details Date Type Department Care Team (Late st Contact Info) Description 04/11/2023 Transcribe Orders eDH Incoming Referrals [phone] Cecilia Brower APRN HOSPITALIST SERVICES [address] [place] [address] [place] [id number] Vision changes; Discomfort of right eye; Papilledema [...] 9:40 AM EDT Office Visit Cardiology at [address] [address] Cody Martinez MD [facility] [place] [address] 10/22/2024 10:30 AM EST Office Visit [place] [phone] Marialuisa Peres MD [facility] [place] [address] Scheduled Referrals Name Type Priority Associated Diagnoses Order Schedule Referral to Ophthalmology Outpatient Referral Routine Vision changes Discomfort of right eye Papilledema Ordered: 04/11/2023 documented as of this encounter Visit Diagnoses Diagnosis Vision changes Unspecified visual disturbance Discomfort of right eye Papilledema Papilloedema, unspecified documented in this encounter Care Teams Loader Relationship Specialty Start Date End Date Kerry Ascencio PA [address] [place] [address] [place] [address] PCP - General Internal Medicine 01/29/21 documented as of this encounter
--- OUTSIDE RECORDS SUMMARY | 2024-06-27 17:01 | XMS_ITS | Encounter Summary ---
Author Organization [facility] [place] [address] Care Team Providers Care Historic Clothing And Costume Maker Name Role Phone Kerry Ascencio Primary Care Provider + Reason for Referral * Diagnostic Test (Routine) - Closed Specialty Diagnoses / Procedures Referred By Clari dickye Referred To Contact Diagnoses Coronary arteriosclerosis Hypertension, unspecified type Hyperlipidemia, unspecified hyperlipidemia type SVT (supraventricular tachycardia) MOISES (obstructive sleep apnea) Intermittent claudication Procedures ARLEEN, legs, multiple levels Philippe Cardenas PA [facility] [address] [facility] [address] [place] [address] Referral ID Status Reason Start Date Expiration Date V isits Requested Visits Authorized [id number] Closed Specialty Service Requested 12/21/2022 12/21/2023 1 1 Encounter Details Date Type Department Care Team (Latest Contact Info) Description 12/21/2022 11:20 AM EDT Office Visit Cardiology at [address] [phone] Philippe Cardenas PA [facility] [place] [address] Intermittent claudication (Primary Dx); Coronary [...] you walk. We will try to obtain [facility] labs from 09/2022. If you have concerns at home, please call [phone] during normal business hours OR [phone] after hours and ask to speak to cath lab radiological technologist donor services manager. We will myDH message you with ARLEEN results. Return visit in [address] Aranda or GENE Cardenas. documented in this encounter Progress Notes * Philippe Cardenas PA - 12/21/2022 11:20 AM EDT Images from the original note were not included. [facility] [place] [address] CARDIOVASCULAR MEDICINE OUTPATIENT VISIT Agatha Yi [id number] 12/21/2022 REFERRING PROVIDER: Kerry Ascencio PROBLEM LIST: [...] pain ?? Abnormal nuclear stress test at [facility] ?? Heart catheterization [facility] November 06, 2017 showing [...] new set-up following upcoming sleep med appt. [facility] 09/2022 labs not available. Lives with , [...] the last 7068 hours. Lipid Panel 09/2022 [facility] labs not available. EKG: NSR, 75 bpm, [...] sustained tachyarrhythmias nor any pathologic pauses detected. [facility] 11/06/2017 Hemodynamics: Left Heart Pressures Resting: Syst [...] or concerns. Philippe Cardenas [place] [address] Patient Instructions 1. Increase diltiazem to 240mg capsule daily for BP control. Also will help with occasion palpitations. 2. ABIs to evaluat calf cramping when you walk. 3. We will try to obtain [facility] labs from 09/2022. 4. If you have concerns at home, please call [phone] during normal business hours OR [phone] for after hours and ask to speak to cath lab radiological technologist donor services manager. 5. We will myDH message you with ARLEEN results. 6. Return visit in [address] Aranda or GENE Cardenas. documented in this encounter Plan of Treatment Upcoming Encounters Date Type Department Care Team (Late st Contact Info) Description 06/30/2024 9:40 AM EDT Office Visit Cardiology at [address] [address] Soha Irving MD [facility] [place] [address] 10/22/2024 10:30 AM EST Office Visit [place] [address] Marialuisa Peres MD [facility] [place] [address] documented as of this encounter Procedures Procedure Name Priority Date/Time Associated Diagnosis Comments EKG 12-LEAD Routine 12/21/2022 11:03 AM EDT Coronary arteriosclerosis documented in this encounter Results * ARLEEN, legs, multiple levels (12/25/2022 8:39 AM EDT) VB Text Report Department: Vascular Surgery Lab Patient: [id number] (AGATHA YI) CPT: 69848 Referring Physician: SOHA IRVING ?? Indications: ??Bilateral [...] EDT Soha Irving MD VASCULAR ORDERABLES VASCUBASE * EKG 12 Lead (12/21/2022 11:03 AM EDT) Ventricular rate 75 BPM MUSE SYSTEM Atrial Rate 75 BPM MUSE SYSTEM P-R Interval 154 ms MUSE SYSTEM QRS Duration 74 ms MUSE SYSTEM Q-T Interval 400 ms MUSE SYSTEM QTC Calculated (Bezet) 446 ms MUSE SYSTEM Calculated P Sutton 31 degrees MUSE SYSTEM Calculated R Sutton -37 degrees MUSE SYSTEM Calculated T Sutton 24 degrees MUSE SYSTEM INTERPRETATION Normal sinus rhythm Left axis deviation Nonspecific ST abnormality Abnormal ECG When compared with ECG of 19-SEP-2021 10:35, No significant change was found Confirmed by MD Jenifer, Elin ([id number]) on 12/21/2022 8:01:02 PM MUSE SYSTEM 12/21/2022 11:0 3 AM EDT 12/21/2022 8:01 PM EDT Soha Irving MD ECG ORDERABLES MUSE SYSTEM documented in this encounter Visit Diagnoses Diagnosis Intermittent claudication- Primary Peripheral vascular disease, unspecified Coronary arteriosclerosis Coronary atherosclerosis of unspecified type of vessel, cahuilla or graft Hypertension, unspecified type Hyperlipidemia, unspecified hyperlipidemia type SVT (supraventricular tachycardia) Other specified cardiac dysrhythmias MOISES (obstructive sleep apnea) Obstructive sleep apnea (adult) (pediatric) documented in this encounter Care Teams Historic Clothing And Costume Maker Relationship Specialty Start Date End Date Kerry Ascencio PA [address] [place] [address] [place] [address] PCP - General Internal Medicine 01/29/21 documented as of this encounter
--- OUTSIDE RECORDS SUMMARY | 2024-06-27 17:01 | XMS_ITS | Encounter Summary ---
Author Organization [facility] Address [facility] [place] [address] Care Team Providers Care Qm Consultant Name Role Phone Kerry Ascencio Primary Care Provider + Encounter Details Date Type Department Care Team (Latest Contact Info) Description 10/11/2023 12:35 PM EST - 10/11/2023 11:59 PM [facility] Hospital Encounter XRay at [address] [place] [address] Cortez Ross MD [facility] [place] [address] Chronic pain in left shoulder Discharge Disposition: [...] 9:40 AM EDT Office Visit Cardiology at [address] [address] Cody Martinez MD [facility] [place] [address] 10/22/2024 10:30 AM EST Office Visit [place] [address] Marialuisa Peres MD [facility] [place] [address] documented as of this encounter Procedures Procedure [...] have questions please contact the health care tech that requested your imaging first. ? Narrative 10/12/2023 8:42 AM EST EXAMINATION: XR [...] who have questions please contactthe health care tech that requested your imaging first. Cortez Ross MD IMG DX ORDERABLES documented in this encounter Visit Diagnoses Diagnosis Chronic pain in left shoulder Pain in joint, shoulder region documented in this encounter Care Teams Qm Consultant Relationship Specialty Start Date End Date Kerry Ascencio PA [address] [place] [address] [place] [address] PCP - General Internal Medicine 01/29/21 documented as of this encounter
--- OUTSIDE RECORDS SUMMARY | 2024-06-27 17:01 | XMS_ITS | Encounter Summary ---
[place] [address] Care Team Providers Care Waste Management Recycling Technician Name Role Phone Kerry Ascencio Primary Care Provider + Encounter Details Date Type Department Care Team (Late st Contact Info) Description 11/21/2023 [place] [address] Pastora Menendez RN Social History [...] AM EDT Office Visit Cardiology at [address] [phone] Cody Martinez MD [facility] [place] [address] 10/22/2024 10:30 AM EST Office [place] [address] Marialuisa Peres MD [facility] [place] [address] documented as of this encounter Visit Diagnoses Not on filedocumented in this encounter Care Teams Waste Management Recycling Technician Relationship Specialty Start Date End Date Kerry Ascencio PA [address] [place] [address] [place] [address] PCP - General Internal Medicine 01/29/21 documented as of this encounter
--- NOTE | 2024-06-27 17:02 | DI.CT_ITS ---
Exam(s) CT THORAX ABD/PEL CTA EXAM: CT THORAX ABD/PEL CTA CLINICAL HISTORY: chest pain to back and arm. TECHNIQUE: Imaging Protocol: Axial CT angiography was performed with multi-slice acquisition and m ulti-planar and/or 3D reconstructions. CONTRAST MATERIAL: Intravenous: Omnipaque 350 Contrast volume:100 mL Oral: no COMPARISON: No exams were available for comparison FINDINGS: CHEST: Pulmonary Arteries: No evidence of filling defect to suggest pulmonary emboli. Tracheobronchial tree: Patent where visualized. Mediastinum and Beatris: No dominant adenopathy or fluid collection. Pulmonary parenchyma: No consolidation or dominant measurable mass. No architectural distortion. Pleura: No effusion or pneumothorax. Heart: The heart is minimal dilated. minimal coronary artery calcifications are seen. Aorta: Thoracic aorta non-dilated. Minimal atherosclerotic changes. Bones: Normal. Tubes, Catheters, and Lines: ABDOMEN AND PELVIS: Abdomen: Celiac axis/mesenteric arteries: No evidence of occlusion or significant stenosis. Renal Arteries: No evidence of occlusion or significant stenosis. There is a single renal artery per fusing each kidney. Aorta: No evidence of occlusion or significant stenosis. No aneurysm or dissection. Minimal athe rosclerotic changes. Pelvis: Iliac Arteries: No evidence of occlusion or significant stenosis. Common Femoral Arteries: No evidence of occlusion or significant stenosis. ABDOMEN: Liver: Normal density. No measurable mass. Portal, Superior Mesenteric, and Splenic Veins: Unremarkable. Gallbladder and Biliary Tract: Status post cholecystectomy. No biliary dilatation. Pancreas: Normal density, no abnormal calcifications or inflammatory process. Spleen: Normal. Adrenals: No masses seen. Kidneys: Normal size, contour and axis. No radiodense stones or obstructive uropathy. No suspicious m asses seen. Left renal cysts again noted. Bowel: No obstruction or bowel wall thickening. Appendix is unremarkable. Mild diverticulosis. Peritoneal Cavity: No ascites, collection or mesenteric inflammatory response. Lymph Nodes: Within normal limits. Bones: Unremarkable. Soft Tissues: Unremarkable. PELVIS: Bladder: Symmetric distention, no gross wall thickening. Reproductive Organs: Status post hysterectomy. Lymph Nodes: Within normal limits. Bones: Within normal limits. IMPRESSION: No acute abnormality chest abdomen pelvis. There are minimal atherosclerotic changes. No evidence o f dissection. RADIATION DOSE DELIVERED: Total DLP DATA REPOSITORY: All CT scans at this facility are submitted to the National Radiology Data Registry (NRDR) Dose Index Registry (DIR) with the [employer] (ACR). RADIATION OPTIMIZATION: All CT scans at this facility use at least one of these dose optimization te chniques: automated exposure control; mA and/or kV adjustment per patient size (includes targeted exa ms where dose is matched to clinical indication); or iterative reconstruction.
--- OUTSIDE RECORDS SUMMARY | 2024-06-27 17:02 | XMS_ITS | Encounter Summary ---
Author Organization [facility] [address] Care Team Providers Care Commissions Analyst Name Role Phone Kerry Ascencio Primary Care Provider + Encounter Details Date Type Department Care Team (Late st Contact Info) Description 01/19/2022 Telephone [place] [phone] Luann Martinez, RN Social History Tobacco Use [...] AM EDT Office Visit Cardiology at [address] [address] Cody Martinez MD [facility] [place] [address] 10/22/2024 10:30 AM EST Office Visit [place] [address] Marialuisa Peres MD [facility] [place] [address] documented as of this encounter Visit Diagnoses Not on filedocumented in this encounter Care Teams Commissions Analyst Relationship Specialty Start Date End Date Kerry Ascencio PA [address] [place] [address] [place] [address] PCP - General Internal Medicine 01/29/21 documented as of this encounter
--- OUTSIDE RECORDS SUMMARY | 2024-06-27 17:02 | XMS_ITS | Encounter Summary ---
Author Organization [facility] [place] [address] Care Team Providers Care Clip Loading Machine Adjuster Name Role Phone Kerry Ascencio Primary Care Provider + Encounter Details Date Type Department Care Team (Late st Contact Info) Description 01/09/2022 Episode Changes [place] [address] Estrada Tineo MD [facility] [place] [address] Social History Tobacco Use Types Packs/Day Years [...] 9:40 AM EDT Office Visit Cardiology at [address] [phone] Cody Martinez MD [facility] [place] [address] 10/22/2024 10:30 AM EST Office Visit [place] [address] Marialuisa Peres MD [facility] [place] [address] documented as of this encounter Visit Diagnoses Not on filedocumented in this encounter Care Teams Clip Loading Machine Adjuster Relationship Specialty Start Date End Date Kerry Ascencio PA [address] [place] [address] [place] [address] PCP - General Internal Medicine 01/29/21 documented as of this encounter
--- OUTSIDE RECORDS SUMMARY | 2024-06-27 17:02 | XMS_ITS | Encounter Summary ---
Author Organization [facility] Address [facility] [place] [address] Care Team Providers Care Shuttle Veneering Supervisor Name Role Phone Kerry Ascencio Primary Care Provider + Reason for Visit * Reason Comments Post Op Eye Pain Encounter Details Date Type Department Care Team (Late st Contact Info) Description 03/09/2022 2:00 PM EDT Office Visit [place] [address] Tiny Vargas MD [facility] [place] [address] Status post cataract extraction and insertion of [...] 9:40 AM EDT Office Visit Cardiology at [address] [phone] Cody Martinez MD [facility] [place] [address] 10/22/2024 10:30 AM EST Office Visit Weight [place] [address] Marialuisa Peres MD [facility] [place] [address] documented as of this encounter Visit Diagnoses Diagnosis Status post cataract extraction and insertion of intraocular lens, right Eye pain, right documented in this encounter Care Teams Shuttle Veneering Supervisor Relationship Specialty Start Date End Date Kerry Ascencio PA [address] [place] [address] [place] [address] PCP - General Internal Medicine 01/29/21 documented as of this encounter
--- OUTSIDE RECORDS SUMMARY | 2024-06-27 17:02 | XMS_ITS | Encounter Summary ---
Author Organization [facility] Address [facility] [place] [address] Care Team Providers Care Tire Layer Name Role Phone Kerry Ascencio Primary Care Provider + Reason for Visit * Reason Comments Blurred Vision Encounter Details Date Type Department Care Team (Late st Contact Info) Description 11/23/2021 3:15 PM EST Office [place] [address] Carolee Harrison MD [facility] [place] [address] Visual disturbance Social History Tobacco Use Types [...] AM EDT Office Visit Cardiology at [address] [phone] Cody Martinez MD [facility] [place] [address] 10/22/2024 10:30 AM EST Office Visit [place] [phone] Marialuisa Peres MD [facility] [place] [address] documented as of this encounter Visit Diagnoses Diagnosis Visual disturbance Unspecified visual disturbance documented in this encounter Care Teams Tire Layer Relationship Specialty Start Date End Date Kerry Ascencio PA [address] [place] [address] [place] [address] PCP - General Internal Medicine 01/29/21 documented as of this encounter
--- OUTSIDE RECORDS SUMMARY | 2024-06-27 17:02 | XMS_ITS | Encounter Summary ---
Author Organization [facility] [place] [address] Care Team Providers Care Line Mover Name Role Phone Kerry Ascencio Primary Care Provider + Encounter Details Date Type Department Care Team (Late st Contact Info) Description 12/16/2021 Telephone Cardiology at [address] [address] Nerissa Pimentel RESEARCH AND DEVELOPMENT TECHNICIAN [facility] [place] [address] Social History Tobacco Use Types Packs/Day Years [...] rescheduled, as she was seen in the [facility] ED yesterday for palpitations, shortness of breath, [...] prior to that visit. Nerissa Pimentel, MSN, SHAKER OUT-BC, RESEARCH AND DEVELOPMENT TECHNICIAN [facility] Cardiovascular Medicine documented in this encounter Plan of Treatment Upcoming Encounters Date Type Department Care Team (Late st Contact Info) Description 06/30/2024 9:40 AM EDT Office Visit Cardiology at [address] [address] Cody Martinez MD [facility] [place] [address] 10/22/2024 10:30 AM EST Office Visit [place] [address] Marialuisa Peres MD [facility] [place] [address] documented as of this encounter Visit Diagnoses Not on filedocumented in this encounter Care Teams Line Mover Relationship Specialty Start Date End Date Kerry Ascencio PA [address] [place] [address] JENI MUNOZ [address] PCP - General Internal Medicine 01/29/21 documented as of this encounter
--- OUTSIDE RECORDS SUMMARY | 2024-06-27 17:02 | XMS_ITS | Encounter Summary ---
Author Organization [facility] Address [facility] [place] [address] Care Team Providers Care Retort Cooler Name Role Phone Kerry Ascencio Primary Care Provider + Encounter Details Date Type Department Care Team (Late st Contact Info) Description 10/28/2021 Orders Only Cardiology at [address] [phone] Nerissa Pimentel APRN [facility] [place] [address] Social History Tobacco Use Types Packs/Day Years [...] 9:40 AM EDT Office Visit Cardiology at [address] [phone] Cody Martinez MD [facility] [place] [place] [address] 10/22/2024 10:30 AM EST Office Visit [place] [address] Marialuisa Peres MD [facility] [place] [address] documented as of this encounter Visit Diagnoses Not on filedocumented in this encounter Care Teams Retort Cooler Relationship Specialty Start Date End Date Kerry Ascencio PA [address] [place] [address] [place] [address] PCP - General Internal Medicine 01/29/21 documented as of this encounter
--- OUTSIDE RECORDS SUMMARY | 2024-06-27 17:02 | XMS_ITS | Encounter Summary ---
Author Organization [facility] Boris [place] [address] Care Team Providers Care Music Teacher Name Role Phone Kerry Ascencio Primary Care Provider + Encounter Details Date Type Department Care Team (Late st Contact Info) Description 12/13/2021 Ancillary Procedure Radiology Library at [facility] [place] [address] [place] [address] Kerry Ascencio PA [address] [place] [address] [place], [place] [id number] Social History Tobacco Use Types Packs/Day Years [...] 9:40 AM EDT Office Visit Cardiology at [address] [place] [phone] Cody Martinez MD [facility] [address] [place] [address] 10/22/2024 10:30 AM EST Office Visit [place] [address] Marialuisa Peres MD [facility] [address] documented as of this encounter Procedures Procedure Name Priority Date/Time Associated Diagnosis Comments FILM LIBRARY STORAGE ONLY MAMMO Routine 12/13/2021 12:00 AM EDT documented in this encounter Results * Film Library- Storage Only Mammo (12/13/2021 12:00 AM EDT) Narrative [facility] - 12/29/2021 9:51 AM EDT This exam is auto-finalizing. It's purpose is for storage only. Kerry MILLS IMFidelina FILM LIBRARY ORDERABLES Performing Organization Address City/State/[facility] Co de Phone Number [place], [place] documented in this encounter Visit Diagnoses Not on filedocumented in this encounter Care Teams Music Teacher Relationship Specialty Start Date End Date Kerry Ascencio PA [address] [place] [address] [place] [address] PCP - General Internal Medicine 01/29/21 documented as of this encounter
--- OUTSIDE RECORDS SUMMARY | 2024-06-27 17:02 | XMS_ITS | Encounter Summary ---
Author Organization [facility] Address [facility] [place] [address] Care Team Providers Care Sewer And Drain Technician Name Role Phone Kerry Ascencio Primary Care Provider + Encounter Details Date Type Department Care Team (Latest Contact Info) Description 01/11/2022 10:00 AM EDT Office Visit Cardiology at [address] [phone] Cody Martinez MD [facility] [place] [address] ASCVD (arteriosclerotic cardiovascular disease); Atypical chest pain [...] from the original note were not included. [facility] [place] [address] CARDIOLOGY OUTPATIENT FOLLOW-UP NOTE Agatha Tamiko Yi [id number] PCP: GENE Crews 01/11/2022 PRIMARY CARE PROVIDER: [...] pain ?? Abnormal nuclear stress test at [facility] ?? Heart catheterization [facility] November 06, 2017 [...] 9:40 AM EDT Office Visit Cardiology at [address] [address] Cody Martinez MD [facility] [place] [address] 10/22/2024 10:30 AM EST Office Visit Weight [place] [phone] Marialuisa Peres MD [facility] [place] [address] documented as of this encounter Visit Diagnoses Diagnosis ASCVD (arteriosclerotic cardiovascular disease) Unspecified cardiovascular disease Atypical chest pain Other chest pain documented in this encounter Care Teams Sewer And Drain Technician Relationship Specialty Start Date End Date Kerry Ascencio PA [address] [place] [address] [place] [address] PCP - General Internal Medicine 01/29/21 documented as of this encounter
--- OUTSIDE RECORDS SUMMARY | 2024-06-27 17:02 | XMS_ITS | Encounter Summary ---
Author Organization [facility] Address [facility] [place] [address] Care Team Providers Care Camera Technician Name Role Phone Kerry Ascencio Primary Care Provider + Reason for Visit * Reason Onset Date Comments Eye Problem 02/28/2022 Post op drops Encounter Details Date Type Department Care Team (Late st Contact Info) Description 02/28/2022 Telephone [place] [address] Ant Rhoades MD [facility] [place] [address] Eye Problem (Post op drops) Social History [...] will call her in 2-3 days at [phone]. documented in this encounter Plan of Treatment Upcoming Encounters Date Type Department Care Team (Late st Contact Info) Description 06/30/2024 9:40 AM EDT Office Visit Cardiology at [address] [phone] Cody Martinez MD [facility] [place] [address] 10/22/2024 10:30 AM EST Office Visit [place] [phone] Marialuisa Peres MD [facility] [place] [address] documented as of this encounter Visit Diagnoses Not on filedocumented in this encounter Care Teams Camera Technician Relationship Specialty Start Date End Date Kerry Ascencio PA [address] [place] [address] [place] [address] PCP - General Internal Medicine 01/29/21 documented as of this encounter
--- OUTSIDE RECORDS SUMMARY | 2024-06-27 17:02 | XMS_ITS | Encounter Summary ---
Author Organization [facility] Address [facility] [place] [address] Care Team Providers Care Muleser Name Role Phone Kerry Ascencio Primary Care Provider + Encounter Details Date Type Department Care Team (Late st Contact Info) Description 02/27/2022 [place] [address] Ant Rhoades MD [facility] [place] [address] Social History Tobacco Use Types Packs/Day Years [...] 9:40 AM EDT Office Visit Cardiology at [address] [phone] Cody Martinez MD [facility] [place] [address] 10/22/2024 10:30 AM EST Office Visit [place] [phone] Marialuisa Peres MD [facility] [place] [address] documented as of this encounter Visit Diagnoses Not on filedocumented in this encounter Care Teams Muleser Relationship Specialty Start Date End Date Kerry Ascencio PA [address] [place] [address] [place] [address] PCP - General Internal Medicine 01/29/21 documented as of this encounter
--- OUTSIDE RECORDS SUMMARY | 2024-06-27 17:02 | XMS_ITS | Encounter Summary ---
Author Organization [facility] Address [facility] [place] [address] Care Team Providers Care Decorating Machine Operator Name Role Phone Kerry Ascencio Primary Care Provider + Encounter Details Date Type Department Care Team (Latest Contact Info) Description 01/06/2022 9:30 AM EDT - 01/06/2022 9:32 AM EDT Hospital Encounter [place] [address] Jackie Parra MD [facility] [place] [address] Abnormal finding on breast imaging Discharge Disposition: [...] AM EDT Office Visit Cardiology at [address] [address] Cody Martinez MD [facility] [place] [address] 10/22/2024 10:30 AM EST Office Visit Weight [place] [address] Marialuisa Peres MD [facility] [place] [address] documented as of this encounter Procedures Procedure [...] who have questions please contact the health career development engineer that requested your imaging first. ? Narrative 01/09/2022 3:57 PM EDT RIGHT BREAST [...] obtained using a 14-gauge automated device. A [employer] 14G marker clip was placed. The clip [...] Surgical Pathology Report (01/06/2022 10:11 AM EDT) Final Diagnosis [id number] ? Location: 3L The signing pathologist has (i) examined the relevant preparation(s) for the specimen(s) and (ii) rendered or confirmed the diagnosis(es). . 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 (see Discussion). Microcalcificat ions: ??N/A Electronically signed by: ?Laurita River DO Verified: ??01/09/2022 11:11 ??Pathologist Performed at: ??-[facility] Dept. of Pathology, [place], [place] DISCUSSION The papilloma is fragmented, present [...] Seven minutes ??pps 01/09/2022 11:11 AM EDT [facility] BREAST STRUCTURE / Unknown 01/06/2022 10:11 AM EDT 01/06/2022 10:11 AM EDT Karen Julian MD PATHOLOGY/CYTOLOGY ORDERABLES Performing Organization Address City/[facility]/ZIP Co [place] [address] * Specimen to Pathology (01/06/2022 10:11 AM EDT) AP Specimen 01/06/2022 10:1 1 AM EDT 01/06/2022 10:11 AM EDT Narrative [facility] - 01/06/2022 10:11 AM EDT Specimen requisition ordered. ??Separate Pathology report to follow Karen Julian MD PATHOLOGY/CYTOLOGY [place]AB[place] [address] documented in this encounter Visit Diagnoses Diagnosis [...] mg documented in this encounter Care Teams Decorating Machine Operator Relationship Specialty Start Date End Date Kerry Ascencio PA [address] [place] [address] [place] [address] PCP - General Internal Medicine 01/29/21 documented as of this encounter
--- OUTSIDE RECORDS SUMMARY | 2024-06-27 17:02 | XMS_ITS | Encounter Summary ---
Author Organization [facility] [place] [address] Care Team Providers Care Lead Coater Name Role Phone Kerry Ascencio Primary Care Provider + Reason for Visit * Auth/Cert Specialty Diagnoses / Procedures Referred By Clari dickey Referred To Contact Diagnoses Cataract Procedures PRO EXTRACAPSULAR CATARACT RMVL INSERTION IO LENS PROSTH W/O ECP CATARACT EXTRACTION, EXTRACAPSULAR, W/ LENS INSERTION (WRVU 8.52) Referral ID Status Reason Start Date Expiration Date Visits Re quested Visits Authorized [id number] 1 1 Encounter Details Date Type Department Care Team (Latest Contact Info) Description 02/20/2022 1:24 PM EDT - 02/20/2022 3:26 PM EDT Hospital Encounter Outpatient [place] [address] Ant Rhoades MD [facility] [place] [address] 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 Section of ophthalmology [facility] [phone] - Wear either the eye shield or glasses of any kind for the first 24 hours after surgery. -Do not rub your eye. -No swimming or hot tubs for 1 month after surgery. - The surgery center nurses should confirm time of your follow up appointment for tomorrow with . This appointment will be at the Eye Clinic in the main building at [facility]. - Mild discomfort is normal, but if you have any severe eye pain or bleeding call [phone] and ask to speak to the eye doctor business liaison officer. - Call you Primary Care Doctor or [...] 5pm or on a weekend: Call the [facility] core laying machine operator and ask for the physician business liaison officer covering for your doctor. documented in this [...] Rhoades MD - 02/20/2022 3:00 PM EDT [facility] Operative Note Patient Name: Agatha Yi : [id number] MR#: [id number] Case Date: 02/20/2022 Surgeon: Surgeon(s) and Role: [...] AM EDT Office Visit Cardiology at [address] [phone] Cody Martinez MD [facility] [place] [address] 10/22/2024 10:30 AM EST Office Visit [place] [phone] Marialuisa Peres MD [facility] [place] [address] documented as of this encounter Procedures Procedure Name Priority Date/Time Associated Diagnosis Comments Extracapsular Cataract Rmvl Insertion Io Lens Prosth W/O Ecp ([id number]) 02/20/2022 2:54 PM EDT Combined forms of [...] 142 (Given - Provid er: Aline Lopes RN) [...] RN) documented in this encounter Care Teams Lead Coater Relationship Specialty Start Date End Date Kerry Ascencio PA [address] [place] [address] PCP - General Internal Medicine 01/29/21 documented as of this encounter
--- OUTSIDE RECORDS SUMMARY | 2024-06-27 17:02 | XMS_ITS | Encounter Summary ---
Author Organization [facility] Address [facility] [place] [address] Care Team Providers Care Stab Setter And Driller Name Role Phone Kerry Ascencio Primary Care Provider + Encounter Details Date Type Department Care Team (Latest Contact Info) Description 01/06/2022 9:33 AM EDT - 01/06/2022 11:59 PM EDT Hospital [place] [address] Jackie Parra MD [facility] DR DIAGNOSTIC [place] [address] Abnormal finding on breast imaging Discharge Disposition: [...] AM EDT Office Visit Cardiology at [address] [phone] Cody Martinez MD [facility] [place] [address] 10/22/2024 10:30 AM EST Office Visit [place] [phone] Marialuisa Peres MD [facility] [place] [address] documented as of this encounter Procedures Procedure [...] questions please contact the health career development director that requested your imaging first. ? Narrative [...] obtained using a 14-gauge automated device. A [employer] [place] 14G marker clip was placed. The clip [...] breast documented in this encounter Care Teams Stab Setter And Driller Relationship Specialty Start Date End Date Kerry Ascencio PA [address] [place] [address] [place] [address] PCP - General Internal Medicine 01/29/21 documented as of this encounter
--- OUTSIDE RECORDS SUMMARY | 2024-06-27 17:02 | XMS_ITS | Encounter Summary ---
Author Organization [facility] [facility] [place] [address] Care Team Providers Care Armor Reconnaissance Specialist Name Role Phone Kerry Ascencio Primary Care Provider + Reason for Visit * Reason Onset Date Comments Eye Problem 02/28/2022 Post CE with eye pain Encounter Details Date Type Department Care Team (Late st Contact Info) Description 02/28/2022 Tele[place] [address] Ant Rhoades MD [facility] [place] [address] Eye Problem (Post CE with eye pain) [...] 9:40 AM EDT Office Visit Cardiology at [address] [phone] Cody Martinze MD [facility] [place] [address] 10/22/2024 10:30 AM EST Office Visit [place] [phone] Marialuisa Peres MD [facility] [place] [address] documented as of this encounter Visit Diagnoses Not on filedocumented in this encounter Care Teams Armor Reconnaissance Specialist Relationship Specialty Start Date End Date Kerry Ascencio PA [address] [place] [address] [place] [address] PCP - General Internal Medicine 01/29/21 documented as of this encounter
--- OUTSIDE RECORDS SUMMARY | 2024-06-27 17:02 | XMS_ITS | Encounter Summary ---
Author Organization [facility] [place] [address] Care Team Providers Care Trench Digger Name Role Phone Kerry Ascencio Primary Care Provider + Encounter Details Date Type Department Care Team (Late st Contact Info) Description 01/30/2022 Telephone [place] [address] Adela Bautista Social History Tobacco Use Types Packs/Day [...] AM EDT Office Visit Cardiology at [address] [phone] Cody Martinez MD [facility] [place] [address] 10/22/2024 10:30 AM EST Office Visit [place] [phone] Marialuisa Peres MD [facility] [place] [place] [address] documented as of this encounter Visit Diagnoses Not on filedocumented in this encounter Care Teams Trench Digger Relationship Specialty Start Date End Date Kerry Ascencio PA [address] [place] [address] [place] [address] PCP - General Internal Medicine 01/29/21 documented as of this encounter
--- OUTSIDE RECORDS SUMMARY | 2024-06-27 17:02 | XMS_ITS | Encounter Summary ---
Author Organization [facility] Address [facility] [place] [address] Care Team Providers Care Stationary Engineer Supervisor Name Role Phone Kerry Ascencio Primary Care Provider + Encounter Details Date Type Department Care Team (Late st Contact Info) Description 03/06/2022 Telephone [place] [address] Devin Green MD [facility] [place] [address] Social History Tobacco Use Types Packs/Day Years [...] AM EDT Office Visit Cardiology at [address] [address] Cody Martinez MD [facility] [place] [address] 10/22/2024 10:30 AM EST Office Visit [place] [phone] Marialuisa Peres MD [facility] [place] [address] documented as of this encounter Visit Diagnoses Not on filedocumented in this encounter Care Teams Stationary Engineer Supervisor Relationship Specialty Start Date End Date Kerry Ascencio PA [address] [place] [address] J[place]UNOZ [address] PCP - General Internal Medicine 01/29/21 documented as of this encounter
--- OUTSIDE RECORDS SUMMARY | 2024-06-27 17:02 | XMS_ITS | Encounter Summary ---
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 [...] 9:40 AM EDT Office Visit Cardiology at [address] [address] Cody Martinez MD [facility] [place] [address] 10/22/2024 10:30 AM EST Office Visit [place] [address] Marialuisa Peres MD [facility] [place] [address] documented as of this encounter Procedures Procedure [...] disturbance documented in this encounter Care Teams Rn Licensed Practical Relationship Specialty Start Date End Date Kerry Ascencio PA NPI: [id number] [place] [address] [place] [address] PCP - General Internal Medicine 01/29/21 documented as of this encounter
--- OUTSIDE RECORDS SUMMARY | 2024-06-27 17:02 | XMS_ITS | Encounter Summary ---
Author Organization [facility] Address [facility] [place] [address] Care Team Providers Care All Around Patternmaker Name Role Phone Kerry Ascencio Primary Care Provider + Encounter Details Date Type Department Care Team (Late st Contact Info) Description 03/03/2022 Telephone Ophthalmology [place] [address] Ant Rhoades MD [facility] [place] [address] Social History Tobacco Use Types Packs/Day Years [...] 9:40 AM EDT Office Visit Cardiology at [address] [address] Cody Martinez MD [facility] [place] [address] 10/22/2024 10:30 AM EST Office Visit Weight and Wellness [place] [phone] Marialuisa Peres MD [facility] [place] [address] documented as of this encounter Visit Diagnoses Not on filedocumented in this encounter Care Teams All Around Patternmaker Relationship Specialty Start Date End Date Kerry Ascencio PA [address] [place] [address] [place] [address] PCP - General Internal Medicine 01/29/21 documented as of this encounter
--- OUTSIDE RECORDS SUMMARY | 2024-06-27 17:02 | XMS_ITS | Encounter Summary ---
Author Organization [facility] Address [facility] [place] [address] Care Team Providers Care Elementary School Reading Teacher Name Role Phone Kerry Ascencio Primary Care Provider + Encounter Details Date Type Department Care Team (Late st Contact Info) Description 03/04/2022 Telephone [place] [address] Devin Green MD [facility] [place] [address] Social History Tobacco Use Types Packs/Day Years [...] AM EDT Office Visit Cardiology at [address] [address] Cody Martinez MD [facility] [place] [address] 10/22/2024 10:30 AM EST Office Visit [place] [phone] Marialuisa Peres MD [facility] [place] [address] documented as of this encounter Visit Diagnoses Not on filedocumented in this encounter Care Teams Elementary [employer] Reading Teacher Relationship Specialty Start Date End Date Kerry Ascencio PA [address] [place] [address] [place] [address] PCP - General Internal Medicine 01/29/21 documented as of this encounter
--- OUTSIDE RECORDS SUMMARY | 2024-06-27 17:02 | XMS_ITS | Encounter Summary ---
Author Organization [facility] Address [facility] [place] [address] Care Team Providers Care Research Rn Spec Name Role Phone Kerry Ascencio Primary Care Provider + Reason for Visit * Reason Comments Post Op Encounter Details Date Type Department Care Team (Late st Contact Info) Description 02/21/2022 3:45 PM EDT Office [place] [address] Ant Rhoades MD [facility] [place] [address] Status post cataract extraction and insertion of [...] 9:40 AM EDT Office Visit Cardiology at [address] [address] Cody Martinez MD [facility] [place] [address] 10/22/2024 10:30 AM EST Office Visit [place] [phone] Marialuisa Peres MD [facility] [place] [address] documented as of this encounter Visit Diagnoses Diagnosis Status post cataract extraction and insertion of intraocular lens, right documented in this encounter Care Teams Research Rn Spec Relationship Specialty Start Date End Date Kerry Ascencio PA [address] [place] [address] [place] [address] PCP - General Internal Medicine 01/29/21 documented as of this encounter
--- OUTSIDE RECORDS SUMMARY | 2024-06-27 17:02 | XMS_ITS | Encounter Summary ---
Author Organization [facility] Address [facility] [place] [address] Care Team Providers Care Home Delivery Driver Name Role Phone Kerry Ascencio Primary Care Provider + Encounter Details Date Type Department Care Team (Late st Contact Info) Description 01/06/2022 [place] [address] Patricia Jiang MD [facility] [place] [address] Social History Tobacco Use Types Packs/Day Years [...] 9:40 AM EDT Office Visit Cardiology at [address] [phone] Cody Martinez MD [facility] [place] [address] 10/22/2024 10:30 AM EST Office Visit [place] [phone] Marialuisa Peres MD [facility] [place] [address] documented as of this encounter Visit Diagnoses Not on filedocumented in this encounter Care Teams Home Delivery Driver Relationship Specialty Start Date End Date Kerry Ascencio PA [address] [place] [address] [place] [address] PCP - General Internal Medicine 01/29/21 documented as of this encounter
--- OUTSIDE RECORDS SUMMARY | 2024-06-27 17:02 | XMS_ITS | Encounter Summary ---
Author Organization [facility] Address [facility] [place] [address] Care Team Providers Care Manager Stylist Name Role Phone Kerry Ascencio Primary Care Provider + Reason for Visit * Reason Comments Medication Refill Encounter Details Date Type Department Care Team (Late st Contact Info) Description 12/17/2021 Refill Cardiology at [address] [phone] Nerissa Pimentel APRN [facility] [place] [address] Medication Refill Social History Tobacco Use Types [...] 9:40 AM EDT Office Visit Cardiology at [address] [phone] Cody Martinez MD [facility] [place] [address] 10/22/2024 10:30 AM EST Office Visit [place] [address] Marialuisa Peres MD [facility] [place] [address] documented as of this encounter Visit Diagnoses Not on filedocumented in this encounter Care Teams Manager Stylist Relationship Specialty Start Date End Date Kerry Ascencio PA [address] [place] [address] [place] [address] PCP - General Internal Medicine 01/29/21 documented as of this encounter
--- OUTSIDE RECORDS SUMMARY | 2024-06-27 17:02 | XMS_ITS | Encounter Summary ---
[place] [address] Care Team Providers Care Tricot Knitter Name Role Phone Kerry Ascencio Primary Care Provider + Encounter Details Date Type Department Care Team (Late st Contact Info) Description 12/16/2021 Telephone Cardiology at [address] [phone] Julissa Mason RN Social History Tobacco Use [...] she was seen in the ED at [facility] yesterday for palpitations. She was advised to return to the hospital today to get a Holter monitor which she will wear for 48 hours over the weekend and return to [facility] on Sunday12/19/21. Patient currently scheduled for f/u with Dr. Martinez on Sunday12/20/21 and is hoping that the results of the Holter will be back by then. Advised patient that I would ask our scheduling staff to obtain ED notes from [facility] for review by Dr. Martinez. Patient verbalized her understanding and will contact this office if she has further concerns. Julissa Mason RN, BSN Ambulatory Cardiology Department documented in this encounter Plan of Treatment Upcoming Encounters Date Type Department Care Team (Late st Contact Info) Description 06/30/2024 9:40 AM EDT Office Visit Cardiology at [address] [phone] Cody Martinez MD [facility] [place] [address] 10/22/2024 10:30 AM EST Office Visit [place] [phone] Marialuisa Peres MD [facility] [place] [address] documented as of this encounter Visit Diagnoses Not on filedocumented in this encounter Care Teams Tricot Knitter Relationship Specialty Start Date End Date Kerry Ascencio PA [address] [place] [address] [place] [address] PCP - General Internal Medicine 01/29/21 documented as of this encounter
--- OUTSIDE RECORDS SUMMARY | 2024-06-27 17:02 | XMS_ITS | Encounter Summary ---
[place] [address] Care Team Providers Care Filter Operator Name Role Phone Kerry Ascencio Primary Care Provider + Encounter Details Date Type Department Care Team (Late st Contact Info) Description 12/20/2021 Telephone Cardiology at [address] [phone] Ally Meza, RN Social History Tobacco Use [...] AM EDT Office Visit Cardiology at [address] [phone] Cody Martinez MD [facility] [place] [address] 10/22/2024 10:30 AM EST Office Visit [place] [address] Marialuisa Peres MD [facility] [place] [address] documented as of this encounter Visit Diagnoses Not on filedocumented in this encounter Care Teams Filter Operator Relationship Specialty Start Date End Date Kerry Ascencio PA [address] [place] [address] [place] [address] PCP - General Internal Medicine 01/29/21 documented as of this encounter
--- OUTSIDE RECORDS SUMMARY | 2024-06-27 17:02 | XMS_ITS | Encounter Summary ---
Author Organization [facility] [place] [address] Care Team Providers Care Contract Consultant Name Role Phone Kerry Ascencio Primary Care Provider + Encounter Details Date Type Department Care Team (Late st Contact Info) Description 11/24/2021 Telephone Ophthalmology at [place] [address] Carolee Harrison [place] [address] Social History Tobacco Use Types Packs/Day Years [...] AM EDT Office Visit Cardiology at [address] [phone] Cody Martinez MD [facility] [place] [address] 10/22/2024 10:30 AM EST Office Visit [place] [phone] Marialuisa Peres MD [facility] [place] [address] documented as of this encounter Visit Diagnoses Not on filedocumented in this encounter Care Teams Contract Consultant Relationship Specialty Start Date End Date Kerry Ascencio PA [address] [place] [address] [place] [address] PCP - General Internal Medicine 01/29/21 documented as of this encounter
--- OUTSIDE RECORDS SUMMARY | 2024-06-27 17:02 | XMS_ITS | Encounter Summary ---
Author Organization [facility] Address [facility] [place] [address] Care Team Providers Care Blade Boner Name Role Phone Kerry Ascencio Primary Care Provider + Encounter Details Date Type Department Care Team (Late st Contact Info) Description 12/22/2021 Transcribe Orders eDH Incoming Referrals [phone] Kerry Ascencio PA [address] [place] [phone] Social History Tobacco Use Types Packs/Day Years [...] 9:40 AM EDT Office Visit Cardiology at [address] [phone] Cody Martinez MD [facility] [address] [place], [place] [phone] 10/22/2024 10:30 AM EST Office Visit [place] [address] Marialuisa Peres MD [facility] [place] [address] documented as of this encounter Visit Diagnoses Not on filedocumented in this encounter Care Teams Blade Boner Relationship Specialty Start Date End Date Kerry Ascencio PA [address] [place] [address] [place] [address] PCP - General Internal Medicine 01/29/21 documented as of this encounter
--- OUTSIDE RECORDS SUMMARY | 2024-06-27 17:02 | XMS_ITS | Encounter Summary ---
Author Organization [facility] [place] [address] Care Team Providers Care Assistant Prosecuting Attorney Name Role Phone Kerry Ascencio Primary Care Provider + Reason for Visit * Auth/Cert Specialty Diagnoses / Procedures Referred By Clari dickey Referred To Contact Diagnoses Cataract Procedures PRO EXTRACAPSULAR CATARACT RMVL INSERTION IO LENS PROSTH W/O ECP CATARACT EXTRACTION, EXTRACAPSULAR, W/ LENS INSERTION (WRVU 8.52) Referral ID Status Reason Start Date Expiration Date Visits Re quested Visits Authorized [id number] 1 1 Encounter Details Date Type Department Care Team (Late st Contact Info) Description 02/20/2022 2:31 PM EDT - 02/20/2022 3:05 PM EDT Surgery [place] [address] Ant Rhoades MD [facility] [place] [address] CATARACT EXTRACTION, EXTRACAPSULAR, W/ LENS INSERTION (WRVU [...] surgery Ant Rhoades M.D. Section of ophthalmology [facility] [phone] - Wear either the eye shield or glasses of any kind for the first 24 hours after surgery. -Do not rub your eye. -No swimming or hot tubs for 1 month after surgery. - The surgery center nurses should confirm time of your follow up appointment for tomorrow with . This appointment will be at the Eye Clinic in the main building at [facility]. - Mild discomfort is normal, but if you have any severe eye pain or bleeding call [phone] and ask to speak to the eye doctor sales compensation analyst. - Call you Primary Care Doctor or [...] or on a weekend: Call the [facility] garnett machine operator and ask for the physician sales compensation analyst covering for your doctor. documented in this [...] Rhoades MD - 02/20/2022 3:00 PM EDT [facility] Operative Note Patient Name: Agatha Yi : [id number] MR#: [id number] Case Date: 02/20/2022 Surgeon: Surgeon(s) and Role: [...] 9:40 AM EDT Office Visit Cardiology at [address] [phone] Cody Martinez MD [facility] [place] [address] 10/22/2024 10:30 AM EST Office Visit Weight [place] [phone] Marialuisa Peres MD [facility] [place] [address] documented as of this encounter Procedures Procedure Name Priority Date/Time Associated Diagnosis Comments Extracapsular Cataract Rmvl Insertion Io Lens Prosth W/O Ecp (89847) 02/20/2022 2:54 PM EDT Combined forms of [...] 142 (Given - Provid er: Aline Lopes RN)1429 [...] RN) documented in this encounter Care Teams Assistant Prosecuting Attorney Relationship Specialty Start Date End Date Kerry Ascencio PA [address] [place] [address] PCP - General Internal Medicine 01/29/21 documented as of this encounter
--- OUTSIDE RECORDS SUMMARY | 2024-06-27 17:02 | XMS_ITS | Encounter Summary ---
Author Organization [facility] Address [facility] [place] [address] Care Team Providers Care Procurement Accountant Name Role Phone Kerry Ascencio Primary Care Provider + Encounter Details Date Type Department Care Team (Late st Contact Info) Description 01/16/2022 Telephone [place] [address] Ant Rhoades MD [facility] [place] [address] Social History Tobacco Use Types Packs/Day Years [...] 9:40 AM EDT Office Visit Cardiology at [address] [phone] Cody Martinez MD [facility] [place] [address] 10/22/2024 10:30 AM EST Office Visit [place] [phone] Marialuisa Peres MD [facility] [place] [address] documented as of this encounter Visit Diagnoses Not on filedocumented in this encounter Care Teams Procurement Accountant Relationship Specialty Start Date End Date Kerry Ascencio PA [address] [place] [address] [place] [address] PCP - General Internal Medicine 01/29/21 documented as of this encounter
--- OUTSIDE RECORDS SUMMARY | 2024-06-27 17:02 | XMS_ITS | Encounter Summary ---
[place] [address] Care Team Providers Care Rn Emergency Room Name Role Phone Kerry Ascencio Primary Care Provider + Reason for Referral * Diagnostic Test (Routine) - Closed Specialty Diagnoses / Procedures Referred By Clari dickey Referred To Contact Cardiology Diagnoses ASCVD (arteriosclerotic cardiovascular disease) Procedures Echocardiogram Transthoracic([facility] or [facility]) Robert Pimentel APRN [facility] [place] [address] [facility] [place] [address] Referral ID Status Reason Start Date Expiration Date V isits Requested Visits Authorized [id number] Closed Specialty Service Requested 09/19/2021 09/19/2022 1 1 Reason for Visit * Diagnostic Test (Routine) - Closed Specialty Diagnoses / Procedures Referred By Clari dickey Referred To Contact Cardiology Diagnoses ASCVD (arteriosclerotic cardiovascular disease) Procedures Echocardiogram Transthoracic([facility] or [facility]) Robert Pimentel APRN [facility] [place] [address] [facility] [place] [address] Referral ID Status Reason Start Date Expiration Date V isits Requested Visits Authorized [id number] Closed Specialty Service Requested 09/19/2021 09/19/2022 1 1 Encounter Details Date Type Department Care Team (Latest Contact Info) Description 12/21/2021 1:00 PM EDT - 12/21/2021 11:59 PM EDT Hospital Encounter Non-Invasive Cardiology Lab [facility] [place] [phone] Robert Pimentel, VALUATION MANAGER [facility] [place] [address] ASCVD (arteriosclerotic cardiovascular disease) Discharge Disposition: Home [...] AM EDT Office Visit Cardiology at [address] [address] Cody Martinez MD [facility] [place] [address] 10/22/2024 10:30 AM EST Office Visit [place] [phone] Marialuisa Peres MD [facility] [place] [address] documented as of this encounter Procedures Procedure Name Priority Date/Time Associated Diagnosis Comments ECHO COMPLETE Routine 12/21/2021 2:53 PM EDT ASCVD (arteriosclerotic cardiovascular disease) documented in this encounter Results * ECHO COMPLETE (12/21/2021 2:53 PM EDT) EF 65 HEARTLAB SYSTEM Anatomical Region Laterality Modality Other 12/21/2021 1:07 PM EDT Narrative 12/21/2021 3:55 PM EDT ?[facility] ?[address] ? [place] [address] ?Voice: ?Fax: ? Echocardiogram Report Name: AGATHA YI ? Study Date: 12/21/2021 01:07 PM ? Patient Location: 4A : 1960 ? Height: 155 cm ? Account: [id number] Age: 61 yrs ? Weight: 82 kg Gender: Female ?BSA: 1.8 m2 Ordering Physician: ROBERT PIMENTEL Referring Physician: ROBERT PIMENTEL Performed By: Carey Davenport RDCS Reason For Study: ASCVD Interpreting Fellow: Ruddy Zhang. Exam Location: [facility]. Interpretation Summary Left ventricle is normal in size and function with EF 65% and no WMA. Mild basal septal hypertrophy without LVOT obstruction. Mild filling abnormality. Right ventricle is normal size and systolic function. No significant valvular abnormalities. Compared to prior TTE report from 03/28/2012, there are no significant changes. Procedure Complete-[id number]. Left Ventricle Left ventricle is of normal [...] Procedure Note Michelet Day MD - 12/21/2021 [place] [address] Voice: Fax: Echocardiogram Report Name: AGATHA YI Tamiko Study Date: 201:07 PM Patient Location: : 1960 Height: 155 cm Account: [id number] Age: 61 yrs Weight: 82 kg Gender: Female BSA: 1.8 m2 Ordering Physician: ROBERT PIMENTEL Referring Physician: ROBERT PIMENTEL Performed By: Carey Davenport RDCS Reason For Study: ASCVD Interpreting Fellow: Ruddy Zhang. Exam Location: [facility]. Interpretation Summary Left ventricle is normal in size and function with EF 65% and no WMA. Mildbasal septal hypertrophy without LVOT obstruction. Mild filling abnormality. Right ventricle is normal size and systolic function. No significant valvular abnormalities. Compared to prior TTE report from 03/28/2012, there are no significantchanges. Procedure Complete-[id number]. Left Ventricle Left ventricle is of normal [...] disease documented in this encounter Care Teams Rn Emergency Room Relationship Specialty Start Date End Date Kerry Ascencio PA [address] [place] [address] [place] [address] PCP - General Internal Medicine 01/29/21 documented as of this encounter
--- OUTSIDE RECORDS SUMMARY | 2024-06-27 17:02 | XMS_ITS | Encounter Summary ---
Author Organization [facility] [place] [address] Care Team Providers Care Power Nut Runner Operator Name Role Phone Kerry Ascencio Primary Care Provider + Encounter Details Date Type Department Care Team (Late st Contact Info) Description 12/15/2021 Ancillary Procedure Radiology Library at [facility] [place] [address] [place] [address] Kerry Ascencio PA [address] [place] [address] [address] [place], [place] [address] Social History Tobacco Use Types Packs/Day Years [...] AM EDT Office Visit Cardiology at [address] [place] [phone] Cody Martinez MD [facility] [address] [place] [address] 10/22/2024 10:30 AM EST Office Visit Weight [place] [address] Marialuisa Peres MD [facility] [place] [address] documented as of this encounter Procedures Procedure Name Priority Date/Time Associated Diagnosis Comments FILM LIBRARY STORAGE ONLY DX CHEST Routine 12/15/2021 12:00 AM EDT documented in this encounter Results * Film Library- Storage Only DX Chest (12/15/2021 12:00 AM EDT) Narrative [facility] - 12/17/2021 3:32 AM EDT This exam is auto-finalizing. It's purpose is for storage only. Kerry MILLS IMFidelina FILM LIBRARY ORDERABLES Performing Organization Address City/State/[facility] Co de Phone Number [place], [place] documented in this encounter Visit Diagnoses Not on filedocumented in this encounter Care Teams Power Nut Runner Operator Relationship Specialty Start Date End Date Kerry Ascencio PA [address] [place] [address] [place] [address] PCP - General Internal Medicine 01/29/21 documented as of this encounter
--- OUTSIDE RECORDS SUMMARY | 2024-06-27 17:02 | XMS_ITS | Encounter Summary ---
[place] [address] Care Team Providers Care Salesperson Fashion Accessories Name Role Phone Kerry Ascencio Primary Care Provider + Encounter Details Date Type Department Care Team (Late st Contact Info) Description 12/29/2021 Telephone [place]ology [place] [phone] Agatha Gaffney Social History Tobacco Use Types [...] Name: Agatha Yi Patient : 1960 Attn: [facility] Image Library From: [facility] [place] [place] [facility] - [phone] Fed-Ex# [phone] - Please overnight [] Urgent [x] For Review [] Please Reply [] Please Recycle Pursuant to the Federal Mammography Quality Standards Act-Section 900.12(c), (4), (ii) Comments: Please send all Mammograms, Ultrasounds & Breast MRIs or any scan pertaining to breast cancer. (CD, Films, Electronic Transfer & Reports) to [facility], [place] [address] If Questions call [phone] Notice of Confidentiality: The documents accompanying this FAX transmission cover contain information from [facility] that is confidential and privileged. The information [...] 9:40 AM EDT Office Visit Cardiology at [place] [phone] Cody Martinez MD [facility] [place] [address] 10/22/2024 10:30 AM EST Office Visit [place] [phone] Marialuisa Peres MD [facility] [address] documented as of this encounter Visit Diagnoses Not on filedocumented in this encounter Care Teams Salesperson Fashion Accessories Relationship Specialty Start Date End Date Kerry Ascencio PA [address] [place] [address] [place] [address] PCP - General Internal Medicine 01/29/21 documented as of this encounter
--- OUTSIDE RECORDS SUMMARY | 2024-06-27 17:02 | XMS_ITS | Encounter Summary ---
[place] [address] Care Team Providers Care Supervisor Coating Name Role Phone Kerry Ascencio Primary Care Provider + Encounter Details Date Type Department Care Team (Late st Contact Info) Description 12/15/2021 Telephone Cardiology at [address] [phone] Nayla Burnett, RN Social History Tobacco Use [...] done on 12/20 and her provider at [facility] in [facility] has requested cardiac clearance before this [...] clearance before this. Informed patient that this mortgage or loan underwriter would send her request to the [...] provider to see the patient. Nayla Burnett supervisor [facility] Clinic at [facility] [address] documented in this encounter Plan of Treatment Upcoming Encounters Date Type Department Care Team (Late st Contact Info) Description 06/30/2024 9:40 AM EDT Office Visit Cardiology at [place] [phone] Cody Martinez MD [facility] [place] [address] 10/22/2024 10:30 AM EST Office Visit Weight and Wellness at [place] [phone] Marialuisa Peres MD [facility] [place] [phone] documented as of this encounter Visit Diagnoses Not on filedocumented in this encounter Care Teams Supervisor Coating Relationship Specialty Start Date End Date Kerry Ascencio PA [address] [place] [address] [place] [address] PCP - General Internal Medicine 01/29/21 documented as of this encounter
--- OUTSIDE RECORDS SUMMARY | 2024-06-27 17:02 | XMS_ITS | Encounter Summary ---
Author Organization [facility] Boris [place] [address] Care Team Providers Care Hospitality Ambassador Name Role Phone Kerry Ascencio Primary Care Provider + Encounter Details Date Type Department Care Team (Late st Contact Info) Description 12/27/2021 Ancillary Procedure Radiology Library at [facility] [place] [address] [place] [address] Kerry Ascencio PA [address] [place] [address] [address] [place], [place] [address] Social History Tobacco Use Types Packs/Day Years [...] AM EDT Office Visit Cardiology at [address] [place] [phone] Cody Martinez MD [facility] [address] [place] [address] 10/22/2024 10:30 AM EST Office Visit [place] [address] Marialuisa Peres MD [facility] [place] [address] documented as of this encounter Procedures Procedure Name Priority Date/Time Associated Diagnosis Comments FILM LIBRARY-STORAGE ONLY US BREAST Routine 12/27/2021 12:00 AM EDT documented in this encounter Results * Film Library Storage Only US Breast (12/27/2021 12:00 AM EDT) Narrative [facility] - 12/29/2021 12:10 PM EDT This exam is auto-finalizing. It's purpose is for storage only. Kerry MILLS IMFidelina FILM LIBRARY ORDERABLES Performing Organization Address City/State/[facility] Co de Phone Number [place], [place] documented in this encounter Visit Diagnoses Not on filedocumented in this encounter Care Teams Hospitality Ambassador Relationship Specialty Start Date End Date Kerry Ascencio PA [address] [place] [address] [place] [address] PCP - General Internal Medicine 01/29/21 documented as of this encounter
--- OUTSIDE RECORDS SUMMARY | 2024-06-27 17:02 | XMS_ITS | Encounter Summary ---
Author Organization Formerly [facility], [facility] Address [facility] [place] [address] Care Team Providers Care Agricultural Economics Teacher Name Role Phone Kerry Ascencio Primary Care Provider + Encounter Details Date Type Department Care Team (Late st Contact Info) Description 12/29/2021 External Results Radiology Library at [facility] [place] [address] Provider, Scanning Social History Tobacco Use Types [...] 9:40 AM EDT Office Visit Cardiology at [address] [phone] Cody Martinez MD [facility] [place] [address] 10/22/2024 10:30 AM EST Office Visit [place] [phone] Marialuisa Peres MD [facility] [place] [address] documented as of this encounter Procedures Procedure Name Priority Date/Time Associated Diagnosis Comments MAMMOGRAM SCAN Routine 09/28/2005 documented in this encounter Results * Scan Doc: Mammogram (09/28/2005) Anatomical Region Laterality Modality Other Scanning Provider MEDIA MGR SCAN EXT O RDR/RSLT documented in this encounter Visit Diagnoses Not on filedocumented in this encounter Care Teams Agricultural Economics Teacher Relationship Specialty Start Date End Date Kerry Ascencio PA [address] [place] [address] [place] [address] PCP - General Internal Medicine 01/29/21 documented as of this encounter
--- OUTSIDE RECORDS SUMMARY | 2024-06-27 17:02 | XMS_ITS | Encounter Summary ---
Author Organization [facility] Address [facility] [place] [address] Care Team Providers Care Project Portfolio Analyst Name Role Phone Kerry Ascencio Primary Care Provider + Reason for Visit * Reason Comments Procedure Encounter Details Date Type Department Care Team (Latest Contact Info) Description 02/03/2022 9:00 AM EDT Procedure [place] [address] Ant Rhoades MD [facility] [place] [place] [address] Combined forms of age-related cataract of right [...] Progress Notes * Ant Rhoades MD - 02/03/2022 9:00 AM EDT Procedure visit, POM for cataract surgery documented in this encounter Plan of Treatment Upcoming Encounters Date Type Department Care Team (Late st Contact Info) Description 06/30/2024 9:40 AM EDT Office Visit Cardiology at [address] [phone] Cody Martinez MD [facility] [place] [address] 10/22/2024 10:30 AM EST Office Visit [place] [phone] Marialuisa Peres MD [facility] [place] [address] documented as of this encounter Procedures Procedure Name Priority Date/Time Associated Diagnosis Comments STEGAAM-VKULH-KNU CALC BY LASER INTERFEROMETRY - OU - BOTH EYES Routine 02/07/2022 3:00 PM EDT Combined forms of age-related cataract of right eye documented in this encounter Results * [id number] Calc By Laser Interferometry - OU - [...] pulmonary disease), Depression, Dry mouth, Eye trauma (~1963), Eye trauma, Fatigue (09/15/2021), GERD (gastroesophageal reflux [...] cataract documented in this encounter Care Teams Project Portfolio Analyst Relationship Specialty Start Date End Date Kerry Ascencio PA [address] [place] [address] [place] [address] PCP - General Internal Medicine 01/29/21 documented as of this encounter
--- OUTSIDE RECORDS SUMMARY | 2024-06-27 17:02 | XMS_ITS | Encounter Summary ---
Author Organization [facility] [place] [address] Care Team Providers Care Awning Craftsperson Name Role Phone Kerry Ascencio Primary Care Provider + Reason for Visit * Consultation (Routine) - Closed Specialty Diagnoses / Procedures Referred By Clari dickey Referred To Contact Infectious Diseases Diagnoses COVID-19 COVID-19 Kerry Ascencio PA [address] [place] [address] [facility] [address] [place] [phone] Referral ID Status Reason Start Date Expiration Date V isits Requested Visits Authorized [id number] Closed Consult, Test & Treat PCP Updated and/or Approved 12/14/2021 12/14/2022 6 6 Encounter Details Date Type Department Care Team (Late st Contact Info) Description 01/31/2022 10:00 AM EDT TH Visit (TeleHealth) [place] [phone] Kimberlee Szymanski APRN [facility] [place] [address] Post-acute COVID-19 syndrome (Primary Dx); [...] Instructions * Patient Instructions* Stephon Kimberlee Calderon, FREIGHT CLAIM INVESTIGATOR - 01/31/2022 1:19 PM EDT FATIGUE: For [...] games and apps (such as crossword puzzles, [employer] ([employer]cko[employer]) ashley, Copybar[employer]Zimplistic) and meditation-based stress reduction (e.g. apps such [...] scheduled bedtime. This medication can be purchased iole-dgz-wvfuhkb. Do not exceed 1-3 mg/night. Keep a [...] COVID-19: May, - reports tested positive at [facility] ED SARS-CoV-2 test results: Lab Results Component [...] couldn't eat or drink. She was sleeping [id number]-xdk-[id number] with bad cough, headache, and loss of [...] blanks. She has started using a daily medical planner to help her remember and keep [...] SVT since COVID and was seen by superintendent maintenance who started her on diltiazem. Since then, [...] cuff repair on 02/10/22. COVID vaccine status: Your [employer] 06/03/21 pre-COVID infection; 07/05/21 after COVID infection [...] ??? Alcohol Other reaction(s): RASH ??? Gum [place]et Other reaction(s): RASH ??? Hydrocodone Other reaction(s): [...] and testing or continued care with her superintendent maintenance. For now, it seems thatraffy is working [...] apps (such as crossword puzzles, Lumin[employer] ashley, Guestmobry.org) and meditation-based stress reduction. Improving mood and [...] informed Ms. Yi about our research study, [facility] Post- Acute COVID Syndrome Clinic Registry. 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
--- OUTSIDE RECORDS SUMMARY | 2024-06-27 17:02 | XMS_ITS | Encounter Summary ---
Author Organization [facility] Address [facility] [place] [address] Care Team Providers Care Home Theater Expert Name Role Phone Kerry Ascencio Primary Care Provider + Reason for Visit * Reason Comments Post Op Eye Pain Encounter Details Date Type Department Care Team (Latest Contact Info) Description 03/04/2022 Unscheduled [place] [address] Devin Green MD [facility] [place] [address] Status post cataract extraction and insertion of [...] -- Devin Green MD PGY-2, Ophthalmology Resident #[id number] 03/04/2022 1:17 PM I saw the patient [...] AM EDT Office Visit Cardiology at [address] [phone] Cody Martinez MD [facility] [place] [address] 10/22/2024 10:30 AM EST Office Visit [place] [address] Marialuisa Peres MD [facility] [place] [address] documented as of this encounter Visit Diagnoses Diagnosis Status post cataract extraction and insertion of intraocular lens, right documented in this encounter Care Teams Home Theater Expert Relationship Specialty Start Date End Date Kerry Ascencio PA [address] [place] [address] [place] [address] PCP - General Internal Medicine 01/29/21 documented as of this encounter
--- OUTSIDE RECORDS SUMMARY | 2024-06-27 17:02 | XMS_ITS | Encounter Summary ---
Author Organization [facility] Address [facility] [place] [address] Care Team Providers Care Director On Air Name Role Phone Kerry Ascencio Primary Care Provider + Encounter Details Date Type Department Care Team (Late st Contact Info) Description 01/03/2022 Telephone Cardiology at [address] [phone] Cody Martinez MD [facility] [place] [address] Social History Tobacco Use Types Packs/Day Years [...] echo results with pradeep Palma . Contacted Agatha regarding this-she was appreciative of the call and expresses good understanding. Seeing Dr Martinez in follow up 01/11/22. documented in this encounter Plan of Treatment Upcoming Encounters Date Type Department Care Team (Late st Contact Info) Description 06/30/2024 9:40 AM EDT Office Visit Cardiology at [address] [phone] Cody Martinez MD [facility] [place] [address] 10/22/2024 10:30 AM EST Office Visit [place] [address] Marialuisa Peres MD [facility] [place] [address] documented as of this encounter Visit Diagnoses Not on filedocumented in this encounter Care Teams Director On Air Relationship Specialty Start Date End Date Kerry Ascencio PA [address] [place] [address] [place] [address] PCP - General Internal Medicine 01/29/21 documented as of this encounter
--- OUTSIDE RECORDS SUMMARY | 2024-06-27 17:02 | XMS_ITS | Encounter Summary ---
Author Organization [facility] [place] [address] Care Team Providers Care Sheet Metal Fabricator Name Role Phone Kerry Ascencio Primary Care Provider + Reason for Visit * Consultation (Routine) - Closed Specialty Diagnoses / Procedures Referred By Clari dickey Referred To Contact Hematology and Oncology Diagnoses Mammogram abnormal Kerry Ascencio PA [address] [place] [address] [place] [address] [facility] [place] [address] [place] [address] Referral ID Status Reason Start Date Expiration Date Visits Re quested Visits Authorized [id number] Closed 12/27/2021 12/27/2022 1 1 Encounter Details Date Type Department Care Team (Late st Contact Info) Description 01/03/2022 9:00 AM EDT Office [place] [address] Lamar Moya APRN [facility] [place] [address] Discharge from right nipple Social [...] this encounter Progress Notes * Lamar Moya, EMPLOYEE ADVISER - 01/03/2022 9:00 AM EDT Images from the original note were not included. Patient ID: Agatha Yi is a 61 y.o. female who is seen at the request of GENE Colbert for evaluation of right nipple discharge. HPI: Anay had a screening mammogram at [facility] on 12/13/21 that was interpreted as BIRADS [...] No Known genetic mutation Not tested Ashkenazi Church heritage? No Previous breast biopsy? No Previous [...] expressed. We discussed the radiologist's recommendations from [facility] to include a biopsy or MRI. I [...] review was only 1.7 percent. The current [place] Society of Breast Surgeons guidelines suggest individualizing [...] free apps for your cell phone from [employer] (Healthy Living) and [employer] (8th Story). All questions were answered to the patient's [...] chart). Lamar Moya APRN Surgical Oncology P [phone] F [phone] [facility] [place] documented in this encounter Plan of Treatment Upcoming Encounters Date Type Department Care Team (Late st Contact Info) Description 06/30/2024 9:40 AM EDT Office Visit Cardiology at [address] [phone] Cody Martinez MD [facility] [place] [address] 10/22/2024 10:30 AM EST Office Visit [place] [address] Marialuisa Peres MD [facility] FAMILY MEDICINE [place], [place] [phone] documented as of this encounter Results * Request for 2nd read Mammo (01/03/2022 10:06 AM EDT) Anatomical Region Laterality Modality SO Impressions 01/03/2022 2:52 PM EDT Right breast supra-areolar intraductal mass measuring up to 1.2 cm. BI-RADS 4: Suspicious abnormality, biopsy should be considered. RECOMMENDATION: Ultrasound-guided biopsy. Please note: The interpretation of the [facility] Breast Imaging Radiologist subspecialist may differ from the original radiologists interpretation. This is usually not due to a deficiency of the original interpreting radiologist, rather due to the greater skill level afforded by sub-specialization in the field and/or reasonable variations in interpretations. If you have a concern regarding the D-H interpretation you may contact the D-H Breast Apparel Fashion Designer Office at . I have personally reviewed [...] who have questions please contact the health wound care specialist that requested your imaging first. ? Electronically signed by: Jackie Torres MD, [facility] ([phone]), at 01/03/2022 2:52 PM Narrative 01/03/2022 2:52 PM EDT INTERPRETATION OF OUTSIDE BREAST IMAGING I have been asked to consult on this patient by Lamar Moya APRN because he/she believes a review of this study may change or alter the care of this patient. STUDIES FROM: [facility] DATES: 12/13/2021, 12/27/2021 TYPE OF EXAM: Bilateral screening mammogram, ultrasound right breast CLINICAL HISTORY: Nipple discharge right breast - recommended biopsy, Yellowish discharge noted from upper outer duct on today's exam, Pt aware she will be contacted for biopsy appt (wants a Sunday); 1.2 x 0.4 x 0.5 soft tissue mass within subareolar duct with internal bloodflow seen on US at [facility]; What Modality is the exam? Ultrasound; Body Part (please add comments as necessary): Right breast; Sending Institution. ?? COMPARISONS: Multiple prior mammograms, most recent prior dated 11/01/2020 TECHNIQUE: Screening mammogram and targeted ultrasound of the right breast performed at [facility]. FINDINGS: Screening mammogram: The breasts are almost [...] to consult on this patient by Lamar Jenningsecause he/she believes a review of this study may change or alter the care ofthis patient. STUDIES FROM: [facility] DATES: 12/13/2021, 12/27/2021 TYPE OF EXAM: Bilateral screening mammogram, ultrasound right breast CLINICAL HISTORY: Nipple discharge right breast - recommended biopsy,Yellowish discharge noted from upper outer duct on today's exam, Pt aware she willbe contacted for biopsy appt (wants a Sunday); 1.2 x 0.4 x 0.5 soft tissuemass within subareolar duct with internal bloodflow seen on US at [facility]; WhatModality is the exam? Ultrasound; Body Part (please add comments as necessary):Right breast; Sending Institution. COMPARISONS: Multiple prior mammograms, most recent prior dated 11/01/2020 TECHNIQUE: Screening mammogram and targeted ultrasound of the rightbreast performed at [facility]. FINDINGS: Screening mammogram: The breasts are almost [...] biopsy. Please note: The interpretation of the [facility] BreastImaging Radiologist subspecialist may differ from the original radiologists interpretation. This is usually not due to a deficiency of the original interpreting radiologist, rather due to the greater skill level affordedby sub-specialization in the field and/or reasonable variations ininterpretations. If you have a concern regarding the -H interpretation you may [facility] Fashion Designer Office at . I have personally reviewed the image(s) and the resident's interpretationand agree with the findings, Jackie Torres MD at 01/03/2022 2:52 PM Thank you for letting us participate in the care of this patient. If youare a health care provider and have any questions regarding this report,please contact the number below. For patients who have questions please contactthe health wound care specialist that requested your imaging first. Lamar Moya APRN IMG OUTSIDE I NTERPRETATION ORDERABLES documented in this encounter Visit Diagnoses Diagnosis Discharge from right nipple Discharge from right nipple documented in this encounter Care Teams Sheet Metal Fabricator Relationship Specialty Start Date End Date Kerry Ascencio PA [address] [place] [address] PCP - General Internal Medicine 01/29/21 documented as of this encounter
--- OUTSIDE RECORDS SUMMARY | 2024-06-27 17:02 | XMS_ITS | Encounter Summary ---
Author Organization [facility] [place] [address] Care Team Providers Care Rotary Driller Prospecting Name Role Phone Kerry Ascencio Primary Care [...] AM EDT Office Visit Cardiology at [address] [phone] Cody Martinez MD [facility] [place] [address] 10/22/2024 10:30 AM EST Office Visit [place] [phone] Marialuisa Peres MD [facility] [place] [address] documented as of this encounter Visit Diagnoses Not on filedocumented in this encounter Care Teams Rotary Driller Prospecting Relationship Specialty Start Date End Date Kerry Ascencio PA [address] [place] [address] [place] [address] PCP - General Internal Medicine 01/29/21 documented as of this encounter
--- OUTSIDE RECORDS SUMMARY | 2024-06-27 17:02 | XMS_ITS | Encounter Summary ---
Author Organization [facility] [place] [address] Care Team Providers Care Plate Grainer Apprentice Name Role Phone Kerry Ascencio Primary Care Provider + Encounter Details Date Type Department Care Team (Latest Contact Info) Description 01/03/2022 10:10 AM EDT Ancillary Procedure Radiology Library [place] [address] Lamar Moya APRN [facility] [place] [address] Discharge from right nipple Social History Tobacco [...] AM EDT Office Visit Cardiology at [address] [place] [address] Cody Martinez MD [facility] [place] [address] 10/22/2024 10:30 AM EST Office Visit Weight and Wellness at [facility] [place] [address] Marialuisa Peres MD [facility] [place] [address] documented as of this encounter Procedures Procedure [...] biopsy. Please note: The interpretation of the [facility] Breast Imaging Radiologist subspecialist may differ from the original radiologists interpretation. This is usually not due to a deficiency of the original interpreting radiologist, rather due to the greater skill level afforded by sub-specialization in the field and/or reasonable variations in interpretations. If you have a concern regarding the D-H interpretation you may contact the D-H Breast Per Diem Physical Therapist Office at . I have personally reviewed [...] who have questions please contact the health dialysis patient care technician that requested your imaging first. ? Electronically signed by: Jackie Torres MD, [facility] ([phone]), at 01/03/2022 2:52 PM Narrative 01/03/2022 2:52 PM EDT INTERPRETATION OF OUTSIDE BREAST IMAGING I have been asked to consult on this patient by Lamar Moya APRN because he/she believes a review of this study may change or alter the care of this patient. STUDIES FROM: [facility] DATES: 12/13/2021, 12/27/2021 TYPE OF EXAM: Bilateral screening mammogram, ultrasound right breast CLINICAL HISTORY: Nipple discharge right breast - recommended biopsy, Yellowish discharge noted from upper outer duct on today's exam, Pt aware she will be contacted for biopsy appt (wants a Sunday); 1.2 x 0.4 x 0.5 soft tissue mass within subareolar duct with internal bloodflow seen on US at [facility]; What Modality is the exam? Ultrasound; Body Part (please add comments as necessary): Right breast; Sending Institution. ?? COMPARISONS: Multiple prior mammograms, most recent prior dated 11/01/2020 TECHNIQUE: Screening mammogram and targeted ultrasound of the right breast performed at [facility]. FINDINGS: Screening mammogram: The breasts are [...] alter the care ofthis patient. STUDIES FROM: [facility] DATES: 12/13/2021, 12/27/2021 TYPE OF EXAM: Bilateral screening mammogram, ultrasound right breast CLINICAL HISTORY: Nipple discharge right breast - recommended biopsy,Yellowish discharge noted from upper outer duct on today's exam, Pt aware she willbe contacted for biopsy appt (wants a Sunday); 1.2 x 0.4 x 0.5 soft tissuemass within subareolar duct with internal bloodflow seen on US at [facility]; WhatModality is the exam? Ultrasound; Body Part (please add comments as necessary):Right breast; Sending Institution. COMPARISONS: Multiple prior mammograms, most recent prior dated 11/01/2020 TECHNIQUE: Screening mammogram and targeted ultrasound of the rightbreast performed at [facility]. FINDINGS: Screening mammogram: The breasts are [...] biopsy. Please note: The interpretation of the [facility] BreastImaging Radiologist subspecialist may differ from the original radiologists interpretation. This is usually not due to a deficiency of the original interpreting radiologist, rather due to the greater skill level affordedby sub-specialization in the field and/or reasonable variations ininterpretations. If you have a concern regarding the -H interpretation [facility] Breast [facility]em Physical Therapist [facility] at . I have personally reviewed the image(s) and the resident's interpretationand agree with the findings, Jackie Torres MD at 01/03/2022 2:52 PM Thank you for letting us participate in the care of this patient. If youare a health care provider and have any questions regarding this report,please contact the number below. For patients who have questions please contactthe health dialysis patient care technician that requested your imaging first. Electronically signed by: Jackie Torres MD, [facility]([phone]), at 01/03/2022 2:52 PM Lamar Moya INDUSTRIAL MAINTENANCE REPAIRER IMG OUTSIDE I NTERPRETATION ORDERABLES documented in this encounter Visit Diagnoses Diagnosis Discharge from right nipple documented in this encounter Care Teams Plate Grainer Apprentice Relationship Specialty Start Date End Date Kerry Ascencio PA [address] [place] [address] [place] [address] PCP - General Internal Medicine 01/29/21 documented as of this encounter
--- OUTSIDE RECORDS SUMMARY | 2024-06-27 17:02 | XMS_ITS | Encounter Summary ---
Author Organization [facility] Address [facility] [place] [address] Care Team Providers Care Aircraft Sheet Metal Mechanic Name Role Phone Kerry Ascencio Primary Care Provider + Reason for Visit * Reason Comments Visual Disturbance Encounter Details Date Type Department Care Team (Late st Contact Info) Description 10/26/2021 1:15 PM EST [place] [address] Erwin Santoyo MD [facility] [place] [address] Visual disturbance Social History Tobacco Use Types [...] AM EDT Office Visit Cardiology at [address] [phone] Cody Martinez MD [facility] [place] [address] 10/22/2024 10:30 AM EST Office [place] [address] Marialuisa Peres MD [facility] [place] [address] documented as of this encounter Procedures Procedure [...] was normal. Inferior thickness was normal. Notes [place] [facility] OCT OD: ??Average RNFL: 106, classification = wnl OS: ??Average RNFL: 106, classification = wnl Implication: No thinning or swelling OU. Erwin Santoyo MD OPHTHALMOLOGY SE [employer]VPay-Me ORDERABLES * Fundus Photos - OU - [...] Normal discs Erwin Santoyo MD OPHTHALMOLOGY SE [employer] ORDERABLES * Automated Visual Field - Extended [...] left eye. Erwin Santoyo MD OPHTHALMOLOGY SE [employer]-Me ORDERABLES documented in this encounter Visit Diagnoses Diagnosis Visual disturbance Unspecified visual disturbance documented in this encounter Care Teams Aircraft Sheet Metal Mechanic Relationship Specialty Start Date End Date Kerry Ascencio PA [address] [place] [address] [place] [address] PCP - General Internal Medicine 01/29/21 documented as of this encounter
--- OUTSIDE RECORDS SUMMARY | 2024-06-27 17:02 | XMS_ITS | Encounter Summary ---
Author Organization [facility] Address [facility] [place] [address] Care Team Providers Care Digester Operator Helper Name Role Phone Kerry Ascencio Primary Care Provider + Encounter Details Date Type Department Care Team (Latest Contact Info) Description 12/21/2021 3:00 PM EDT Office Visit Cardiology at [address] [phone] Cody Martinez MD [facility] [place] [address] ASCVD (arteriosclerotic cardiovascular disease); SVT (supraventricular tachycardia) [...] original note were not included. [facility] [place] [address] CARDIOLOGY OUTPATIENT FOLLOW-UP NOTE Agatha Yi [id number] PCP: GENE Crwes 12/21/2021 PRIMARY CARE PROVIDER: GENE Crews PROBLEM [...] pain ?? Abnormal nuclear stress test at [facility] ?? Heart catheterization [facility] November 06, 2017 showing LVEDP of 20 [...] leftbreast. She had a recent evaluation at [facility] for this pain and was ultimately evaluated with a treadmill stress test and later a nuclear stress test which were negative. Her symptoms were again thought to be noncardiac. She was seen in the emergency department at [facility] on December 15, 2021 when she [...] AM EDT Office Visit Cardiology at [address] [phone] Cody Martinez MD [facility] [place] [address] 10/22/2024 10:30 AM EST Office Visit [place] [phone] Marialuisa Peres MD [facility] [place] [address] documented as of this encounter Visit Diagnoses Diagnosis ASCVD (arteriosclerotic cardiovascular disease) Unspecified cardiovascular disease SVT (supraventricular tachycardia) Other specified cardiac dysrhythmias documented in this encounter Care Teams Digester Operator Helper Relationship Specialty Start Date End Date Kerry Ascencio PA [address] [place] [address] [place] [address] PCP - General Internal Medicine 01/29/21 documented as of this encounter
--- OUTSIDE RECORDS SUMMARY | 2024-06-27 17:03 | XMS_ITS | Encounter Summary ---
Author Organization [facility] Address [facility] [place] [address] Care Team Providers Care Cloth Calender Name Role Phone Jennifer Gallagher JU Primary Care Provider + Reason for Visit * Auth/Cert Specialty Diagnoses / Procedures Referred By Clari dickey Referred To Contact Diagnoses Chest pain, unspecified type [R07.9] Procedures CARDIAC CATHETERIZATION Referral ID Status Reason Start Date Expiration Date Visits Re quested Visits Authorized [id number] 1 1 Encounter Details Date Type Department Care Team (Latest Contact Info) Description 11/06/2017 7:37 AM EST - 11/06/2017 1:06 PM EST Hospital En[place] [address] Michelet Kirkpatrick MD [facility] [place] [address] Chest pain, unspecified type Discharge Disposition: Home [...] Kirkpatrick MD - 11/06/2017 11:[address] [facility] SAME DAY DISCHARGE SUMMARY Agatha Yi [id number] 11/06/2017 Primary Care Provider: Jennifer Gallagher APRN Referring Production Hardener: Ede Naranjo MD Procedures: Left heart catheterization, [...] (LV = 140/20 mmHg). Michelet Kirkpatrick MD, [facility] Staff Production Hardener 11/06/2017 documented in this encounter Discharge Instructions * Patient Instructions* Cristina Parekh Gavin - 11/06/2017 10:42 AM EST Cardiology Instructions Call your doctor if: Chest pain, dyspnea, pain or swelling in legs occurs. If you have non-emergent questions between now and the time of your follow up appointments: -During 8am-5pm Sunday through Sunday call [phone] to speak with a nurse in the cardiology clinic -All other times call [phone] and ask to speak to the reverse unit operator clinical application manager. MEDICATIONS - Please discuss with Dr. Naranjo [...] Primary care provider: Cardiology: Jennifer Gallagher APRN [phone] Follow up as planned or as needed. Dr. Naranjo [phone] Call for follow up appointment 2weeks-1month following catherization. * Attachments The following attachments cannot be sent through Care Everywhere. * CORONARY ANGIOGRAM: POST-OP (MALTESE) documented in this encounter Medications at Time [...] for Pain. 02/02/2020 mometasone (NASONEX) 50 mcg/actuation [place], Non-Aerosol 2 sprays by Nasal route daily. [...] note were not included. Patient Name: Agatha iY Patient Age: 57 y.o. Birthdate: 1960 Admit date: 11/06/2017 Attending Physician: Michelet Kirkpatrick MD Complete Adult Pre-Procedural H&P Patient Name: Agatha Yi : [id number] y.o. MR#: [id number] Chief Complaint: chest pain Planned Procedure: LHC [...] AM EDT Office Visit Cardiology at [address] [phone] Cody Martinez MD [facility] [place] [address] 10/22/2024 10:30 AM EST Office Visit [place] [phone] Marialuisa Peres MD [facility] [address] documented as of this encounter Procedures Procedure [...] (Bezet) 444 ms MUSE SYSTEM Calculated P [place] 20 degrees MUSE SYSTEM Calculated R [place] -19 degrees MUSE SYSTEM Calculated T [place] 7 degrees MUSE SYSTEM INTERPRETATION Normal sinus [...] * Differential, Automated (11/06/2017 7:59 AM EST) Neutrophil % 56.2 % [facility] Neutrophil Absolute 3.41 1.70 - 6.10 x10(3)/[facility] Lymph % 31.7 % [facility] Lymphocytes Abs 1.9 0.9 - 3.2 x10(3)/[facility] Monocyte % 8.1 % [facility] Monocyte Abs 0.5 0.3 - 0.9 x10(3)/[facility] Eos % 2.6 % [facility] Eosinophils Abs 0.2 0.0 - 0.4 x10(3)/[facility] Basophil % 1.2 % [facility] Baso Absolute 0.1 0.0 - 0.1 x10(3)/[facility] Immature Gran % 0.20 % [facility] Comment: Immature granulocytes(IG's)percentage and absolute count will include metamyelocytes, myelocytes, and promyelocytes. Blood smears from CBCs yielding IG's will be scanned manually for concordance. If this scan disagrees with the automated IG or if promyelocytes are noted, a manual differential will be performed. Immature Gran Absolute 0.01 0.00 - 0.04 x10(3)/[facility] Blood specimen (specimen) 11/06/2017 7:59 AM EST 11/06/2017 8:18 AM EST Narrative Resulting Agency Comment Spec In Lab Ede Naranjo MD HEMATOLOGY ORDERAB LES [facility] [place] [address] * (ABNORMAL) Hemogram (11/06/2017 7:59 AM EST) White Blood Cell 6.1 4.0 - 9.5 x10(3)/[facility] Red Blood Cell 4.59 4.00 - 5.21 x10(6)/[facility] Hemoglobin 14.4 11.7 - 15.5 gm/dL [facility] Hematocrit 43.0 35.7 - 45.8 % [facility] Mean Cell Volume 93.7 82.6 - 94.[address] [facility] Mean Cell Hemoglobin 31.4 27.1 - 32.[address] [facility] Mean Cell Hemoglobin Concentration 33.5 31.7 - 35.0 gm/dL [facility] Platelet 206 145 - 357 x10(3)/mc L [facility] RDW Standard Deviation 47.4(H) 37.0 - 46.[address] [facility] RDW coefficient of variation 13.8 11.5 - 14.1 % [facility] Mean Platelet Volume 12.0 7.6 - 12.[address] [facility] NRBC% auto 0.0 % [facility] NRBC Absolute 0.000 0.000 - 0.000 x10(3)/mc L [facility] Blood specimen (specimen) 11/06/2017 7:59 AM EST 11/06/2017 8:18 AM EST Narrative Resulting Agency Comment Spec In Lab Ede Naranjo MD HEMATOLOGY ORDERAB LES Performing Organization Address City/State/[facility] Co de Phone Number [facility] [place] [address] * (ABNORMAL) BMP w/fasting Glucose (11/06/2017 7:59 AM EST) Glucose Fasting 103(H) 65 - 99 mg/dL [facility] Comment: ?Fasting* Glucose Interpretive Criteria [...] of Diabetes Mellitus, Position Statement from the [place] [employer]. ??Diabetes Care, Volume 33, Supplement 1, Sep 2009 Blood Urea Nitrogen 9 8 - 18 mg/dL [facility] Creatinine 0.89 0.70 - 1.20 mg/dL [facility] Sodium 143 135 - 145 mmol/L [facility] Potassium 4.5 3.5 - 5.0 mmol/L [facility] Comment: Please note: ??Patients with WBC >100,000 may have falsely elevated Potassium levels. ??For accurate Potassium quantification in these patients send serum separator tube (gold top) for subsequent determinations. ??Contact the Clinical Chemistry Laboratory if there are any questions. Chloride 105 98 - 107 mmol/L [facility] Carbon Dioxide 26 22 - 31 mmol/L [facility] Anion Gap 12 5 - 15 mmol/L [facility] Calcium 9.4 8.5 - 10.5 mg/dL [facility] Est Glomerular Filtration Rate >60 >=60 [facility] Comment: The reported eGFR should be multiplied by 1.2 for patients. The MDRD is not an appropriate measure of renal function for patients with body mass extremes or in patients with acute kidney failure. [email or web address]://[email or web address].[email or web address]/DHnkdep [email or web address]://YOHO.TRAN.SL/DHMCnkf Blood specimen (specimen) 11/06/2017 7:59 AM EST 11/06/2017 8:18 AM EST Narrative Resulting Agency Comment Spec In Lab Ede Naranjo MD CHEMISTRY ORDERABL ES [facility] [place] [address] * Prothrombin Time (11/06/2017 7:59 AM EST) Prothrombin Time 12.8 11.8 - 14.[address] [facility] International Normalization Ratio 1.0 0.9 - 1.1 [facility] Comment: An INR <2.0 indicates [...] Lab Ede Naranjo MD HEMATOLOGY ORDERAB LES [facility] [place] [address] documented in this encounter Visit Diagnoses Diagnosis Chest pain, unspecified type documented in this encounter Administered Medications Inactive Administered Medications - up to 3 most recent administrations Medication Order MAR Action Action Date Dose Rate Site lidocaine (XYLOCAINE) 10 mg/mL (1 %) injection 3 mg 3 mg (0.3 mL), Subcutaneous, ONCE PRN, 1 dose, Starting on Sun11/06/17 at 0813, Until Tu11/06/17 at 0910, with discomfort with PIV insertion, Cath (Day of Procedure), Routine Given 11/06/2017 9:10 AM EST 3 mg sodium chloride 0.9% infusion 200 mL/hr, Intravenous, CONTINUOUS, Starting on e 11/06/17 at 0830, Until 11/06/17 at 1305, [...] CONTINUOUS, Starting on Sun11/06/17 at 1100, Until e 11/06/17 at 1259, Recovery (Recovery-Hospital Unit) 1050 (New Bag - Prov ider: Brenna Velarde RN) PRN Medication Order 11/04/2017 11/05/2017 11/06/2017 fentaNYL 50 mcg/mL multi-dose injection (CANCELED) ONCE PRN, Starting on Sun11/06/17 at 0949, Until e 11/06/17 at 1305, Intra-Operative (Intra-Procedure), Routine 0949 (Given - Provid er: Chanelle Mckinney RN) heparin (porcine) injection (CANCELED) ONCE PRN, Starting on Sun11/06/17 at 1005, Until e 11/06/17 at 1305, Cath (Intra-Procedure), Routine 1005 (Given - Provid er: Chanelle Mckinney RN) lidocaine (XYLOCAINE) 10 mg/mL (1 %) injection 3 mg (COMPLETED) 3 mg (0.3 mL), Subcutaneous, ONCE PRN, 1 dose, Starting on Sun11/06/17 at 0813, Until 11/06/17 at 0910, with discomfort with PIV insertion, Cath (Day of Procedure), Routine 0910 (Given - Provid er: Ede Jon RN) midazolam (PF) (VERSED) 1 mg/mL multi-dose injection (CANCELED) ONCE PRN, Starting on e 11/06/17 at 0948, Until e 11/06/17 at 1305, Cath (Intra-Procedure), Routine 0948 (Given - Provid er: Chanelle Mckinney RN) nitroGLYcerin (NITROSTAT) SL tablet 0.4 mg 0.4 mg, Sublingual, EVERY 5 MIN PRN, Starting on Sun11/06/17 at 1044, Until Sun11/06/17 at 1506, Chest pain, May repeat every [...] Parekh) documented in this encounter Care Teams Cloth Calender Relationship Specialty Start Date End Date Jennifer Gallagher APRN [address] [place] [address] , [facility] [address] [place] [address] PCP - General Family Medicine 10/30/17 01/28/21 documented as of this encounter
--- OUTSIDE RECORDS SUMMARY | 2024-06-27 17:03 | XMS_ITS | Encounter Summary ---
Author Organization [facility] Address [facility] [place] [address] Care Team Providers Care Swamper Name Role Phone Kerry Ascencio Primary Care Provider + Reason for Visit * Reason Comments Eye Problem * Consultation (Routine) - Closed Specialty Diagnoses / Procedures Referred By Clari dickey Referred To Contact Ophthalmology Diagnoses retina Aron Baez, [address] [address] Carolee Harrison MD [facility] [place] [address] Referral ID Status Reason Start Date Expiration Date V isits Requested Visits Authorized [id number] Closed Consult, Test & Treat 02/22/2021 02/22/2022 1 1 Encounter Details Date Type Department Care Team (Late st Contact Info) Description 04/20/2021 1:45 PM EDT Office Visit Ophthalmology at [facility] [place] [address] Carolee Harrison MD [facility] [place] [address] Visual disturbance Social History Tobacco Use Types [...] AM EDT Office Visit Cardiology at [address] [phone] Cody Martinez MD [facility] [place] [address] 10/22/2024 10:30 AM EST Office Visit [place] [phone] Marialuisa Peres MD [facility] FAM[place] [address] documented as of this encounter Procedures Procedure [...] disturbance documented in this encounter Care Teams Swamper Relationship Specialty Start Date End Date Kerry Ascencio PA [address] [place] [address] [place] [address] PCP - General Internal Medicine 01/29/21 documented as of this encounter
--- OUTSIDE RECORDS SUMMARY | 2024-06-27 17:03 | XMS_ITS | Encounter Summary ---
Author Organization [facility] Address [facility] [place] [address] Care Team Providers Care Biofuels Technology Manager Name Role Phone Kerry Ascencio Primary Care Provider + Reason for Visit * Reason Onset Date Comments Eye Problem 07/04/2021 Encounter Details Date Type Department Care Team (Late st Contact Info) Description 07/04/2021 Telephone Ophthalmology at [facility] [place] [address] Carolee Harrison MD [facility] [place] [address] Eye Problem Social History Tobacco Use Types [...] appt on 09/01/2021. * Telephone Encounter - Chanelle Calixto - 07/04/2021 9:08 AM EDT Which eye: [...] 9:40 AM EDT Office Visit Cardiology at [address] [address] Cody Martinez MD [facility] [place] [address] 10/22/2024 10:30 AM EST Office Visit [place] [address] Marialuisa Peres MD [facility] [place] [address] documented as of this encounter Visit Diagnoses Not on filedocumented in this encounter Care Teams Biofuels Technology Manager Relationship Specialty Start Date End Date Kerry Ascencio PA [address] [place] [address] [place] [address] PCP - General Internal Medicine 01/29/21 documented as of this encounter
--- OUTSIDE RECORDS SUMMARY | 2024-06-27 17:03 | XMS_ITS | Encounter Summary ---
Author Organization [facility] Address [facility] [place] [address] Care Team Providers Care Sewing Machine Repairer Helper Name Role Phone Kerry Ascencio Primary Care Provider + Encounter Details Date Type Department Care Team (Late st Contact Info) Description 02/15/2021 [place] [address] Tati Gutierrez OD [facility] [place] [address] Social History Tobacco Use Types Packs/Day Years [...] received a referral from Dr. Al from [facility].I checked onbase and did not see one. [...] AM EDT Office Visit Cardiology at [address] [address] Cody Martinez MD [facility] [address] 10/22/2024 10:30 AM EST Office Visit [place] [phone] Marialuisa Peres MD [facility] [place] [address] documented as of this encounter Visit Diagnoses Not on filedocumented in this encounter Care Teams Sewing Machine Repairer Helper Relationship Specialty Start Date End Date Kerry Ascencio PA [address] [place] [address] [place] [address] PCP - General Internal Medicine 01/29/21 documented as of this encounter
--- OUTSIDE RECORDS SUMMARY | 2024-06-27 17:03 | XMS_ITS | Encounter Summary ---
[place] [address] Care Team Providers Care Director Hospice Operations Name Role Phone Kerry Ascencio Primary Care Provider + Reason for Visit * Diagnostic Test (Routine) - Closed Specialty Diagnoses / Procedures Referred By Clari dickey Referred To Contact Radiology Diagnoses Solitary pulmonary nodule present on computed tomography of lung Procedures NM PET CT Skull Base to Mid-thigh Kerry Ascencio PA [address] [place] [address] [place] [address] [place] [address] Referral ID Status Reason Start Date Expiration Date V isits Requested Visits Authorized [id number] Closed Specialty Service Requested 09/15/2021 03/16/2023 1 1 Encounter Details Date Type Department Care Team (Late st Contact Info) Description 10/19/2021 11:43 AM EST - 10/19/2021 11:59 PM [facility] [place] [address] Kerry Ascencio PA [address] [place] [address] [address] [place] [phone] Discharge Disposition: Home Social History Tobacco Use [...] AM EDT Office Visit Cardiology at [address] [phone] Cody Martinez MD [facility] [place] [address] 10/22/2024 10:30 AM EST Office Visit [place] [address] Marialuisa Peres MD [facility] [place] [address] documented as of this encounter Procedures Procedure [...] questions please contact the health child care development specialist that requested your imaging first. ? Narrative 10/20/2021 1:55 PM EST EXAMINATION: NM PET CT STANDARD SKULL BASE TO MID-THIGH CLINICAL HISTORY: Incidental 11X12 mm RLL nodule on CTA for PE at [facility] on 08/30/21 TECHNIQUE: Following IV injection of 30-xbcslf-5-deoxyglucose (FDG) a standard uptake of approximately 60 [...] RLL nodule on CTA for PE at [facility] on 08/30/21 TECHNIQUE: Following IV injection of 51-caloye-8-deoxyglucose (FDG) astandard uptake of approximately 60 minutes, [...] have questions please contactthe health child care development specialist that requested your imaging first. Kerry MILLS IMG PET ORDERABL ES documented in this encounter Visit Diagnoses Not on filedocumented in this encounter Care Teams Director Hospice Operations Relationship Specialty Start Date End Date Kerry Ascencio PA [address] [place] [address] [place] [address] PCP - General Internal Medicine 01/29/21 documented as of this encounter
--- OUTSIDE RECORDS SUMMARY | 2024-06-27 17:03 | XMS_ITS | Encounter Summary ---
Author Organization [facility] Address [facility] [place] [address] Care Team Providers Care Video Arcade Manager Name Role Phone ElliottJennifer JU Primary Care Provider + Encounter Details Date Type Department Care Team (Late st Contact Info) Description 12/18/2018 Orders Only Cardiology at [address] [phone] Cody Martinez MD [facility] [place] [address] Chest pain, unspecified type (Primary Dx); Hypertension, [...] 9:40 AM EDT Office Visit Cardiology at [address] [phone] Cody Martinez MD [facility] [place] [address] 10/22/2024 10:30 AM EST Office Visit [place] [address] Marialuisa Peres MD [facility] [place] [address] documented as of this encounter Results * EKG 12 Lead (12/19/2018 2:38 PM EDT) Ventricular rate 77 BPM MUSE SYSTEM Atrial Rate 77 BPM MUSE SYSTEM P-R Interval 164 ms MUSE SYSTEM QRS Duration 74 ms MUSE SYSTEM Q-T Interval 398 ms MUSE SYSTEM QTC Calculated (Bezet) 450 ms MUSE SYSTEM Calculated P [place] 34 degrees MUSE SYSTEM Calculated R [place] -18 degrees MUSE SYSTEM Calculated T [place] 36 degrees MUSE SYSTEM INTERPRETATION Normal sinus rhythm Nonspecific ST abnormality Abnormal ECG When compared with ECG of 06-NOV-2017 12:38, Nonspecific T wave abnormality no longer evident in Inferior leads Nonspecific T wave abnormality no longer evident in Anterior leads Confirmed by MD Martinez Jon ([id number]) on 12/19/2018 4:01:16 PM MUSE SYSTEM 12/19/2018 2:38 PM EDT 12/19/2018 4:01 PM EDT Cody Martinez MD ECG ORDERABLES MUSE SYSTEM documented in this encounter Visit Diagnoses Diagnosis Chest pain, unspecified type- Primary Hypertension, unspecified type Encounter for pre-operative cardiovascular clearance Pre-operative cardiovascular examination documented in this encounter Care Teams Video Arcade Manager Relationship Specialty Start Date End Date Jennifer Gallagher APRN [address] [place] [address] , [facility] [address] [place] [address] PCP - General Family Medicine 10/30/17 01/28/21 documented as of this encounter
--- OUTSIDE RECORDS SUMMARY | 2024-06-27 17:03 | XMS_ITS | Encounter Summary ---
Author Organization [facility] [place] [address] Care Team Providers Care Matchbook Assembler Name Role Phone Jennifer Gallagher JU Primary Care Provider + Encounter Details Date Type Department Care Team (Late st Contact Info) Description 11/01/2020 Ancillary Procedure Radiology Library at [facility] [place] [address] Kerry Ascencio PA [address] [place] [address] [address] [place], [place] [address] Social History Tobacco Use Types Packs/Day Years [...] AM EDT Office Visit Cardiology at [address] [phone] Cody Martinez MD [facility] [place] [address] 10/22/2024 10:30 AM EST Office Visit [place] [address] Marialuisa ePres MD [facility] [place] [address] documented as of this encounter Procedures Procedure Name Priority Date/Time Associated Diagnosis Comments FILM LIBRARY STORAGE ONLY MAMMO Routine 11/01/2020 12:00 AM EST documented in this encounter Results * Film Library- Storage Only Mammo (11/01/2020 12:00 AM EST) Narrative [facility] - 12/29/2021 9:51 AM EDT This exam is auto-finalizing. It's purpose is for storage only. Kerry MILLS IMFidelina FILM LIBRARY ORDERABLES [place], [place] documented in this encounter Visit Diagnoses Not on filedocumented in this encounter Care Teams Matchbook Assembler Relationship Specialty Start Date End Date Jennifer Gallagher APRN [address] [place] [address] [address] [place] [address] PCP - General Family Medicine 10/30/17 01/28/21 documented as of this encounter
--- OUTSIDE RECORDS SUMMARY | 2024-06-27 17:03 | XMS_ITS | Encounter Summary ---
[place] [address] Care Team Providers Care Maintenance Controller Name Role Phone Kerry Ascencio Primary Care Provider + Encounter Details Date Type Department Care Team (Late st Contact Info) Description 09/14/2021 Telephone Cardiology at [address] [phone] Ally Meza, RN Social History Tobacco Use [...] PM EST Hot Call page from scheduling pocket secretary assembler Susie: Agatha states she has noticed an [...] seen in her [facility] in [place] 09/14/21,states she was told her EKG wasnormal,states [...] AM EDT Office Visit Cardiology at [address] [phone] Cody Martinez MD [facility] [place] [address] 10/22/2024 10:30 AM EST Office Visit [place] [phone] Marialuisa Peres MD [facility] [place] [address] documented as of this encounter Visit Diagnoses Not on filedocumented in this encounter Care Teams Maintenance Controller Relationship Specialty Start Date End Date Kerry Ascencio PA [address] [place] [address] JENI MUNOZ [address] PCP - General Internal Medicine 01/29/21 documented as of this encounter
--- OUTSIDE RECORDS SUMMARY | 2024-06-27 17:03 | XMS_ITS | Encounter Summary ---
Author Organization [facility] Address [facility] [place] [address] Care Team Providers Care Digital Computer Operator Name Role Phone Jennifer Gallagher APRN Primary Care Provider + Encounter Details Date Type Department Care Team (Latest Contact Info) Description 02/10/2020 11:00 AM EDT TH Visit (TeleHealth) Cardiology at [address] [phone] Cody Martinez MD [facility] [place] [address] ASCVD (arteriosclerotic cardiovascular disease); Atypical chest pain [...] CARDIOLOGY VIRTUAL VISIT NOTE Agatha Yi 02/10/20 [id number] PRIMARY CARE PROVIDER: Jennifer Gallagher APRN VISIT [...] Dose unknown ??? mometasone (NASONEX) 50 mcg/actuation [place], Non-Aerosol 2 sprays by Nasal route daily. [...] reassess in 1 year Cody Martinez MD, [facility] Time Attestation: I spent a total of 15 minutes associated with this encounter, including chart review, the patient encounter, and documentation. documented in this encounter Plan of Treatment Upcoming Encounters Date Type Department Care Team (Late st Contact Info) Description 06/30/2024 9:40 AM EDT Office Visit Cardiology at [address] [phone] Cody Martinez MD [facility] [place] [address] 10/22/2024 10:30 AM EST Office Visit [place] [phone] Marialuisa Peres MD [facility] [place] [address] documented as of this encounter Visit Diagnoses Diagnosis ASCVD (arteriosclerotic cardiovascular disease) Unspecified cardiovascular disease Atypical chest pain Other chest pain documented in this encounter Care Teams Digital Computer Operator Relationship Specialty Start Date End Date Jennifer Gallagher APRN [address] [place] [address] , [facility] 1 [place] [address] PCP - General Family Medicine 10/30/17 01/28/21 documented as of this encounter
--- OUTSIDE RECORDS SUMMARY | 2024-06-27 17:03 | XMS_ITS | Encounter Summary ---
Author Organization [facility] [place] [address] Care Team Providers Care Log Driver Name Role Phone Jennifer Gallagher JU Primary Care Provider + Encounter Details Date Type Department Care Team (Late st Contact Info) Description 01/04/2021 Ancillary Procedure Radiology Library at [facility] [place] [address] Kerry Ascencio PA [address] [place] [address] [address] [place], [place] [id number] Social History Tobacco Use Types Packs/Day Years [...] AM EDT Office Visit Cardiology at [address] [phone] Cody Martinez MD [facility] [place] [address] 10/22/2024 10:30 AM EST Office Visit [place] [address] Marialuisa Peres MD [facility] [place] [address] documented as of this encounter Procedures Procedure Name Priority Date/Time Associated Diagnosis Comments FILM LIBRARY STORAGE ONLY DX SHOULDER Routine 01/04/2021 12:00 AM EDT documented in this encounter Results * Film Library- Storage Only DX Shoulder (01/04/2021 12:00 AM EDT) Narrative [facility] - 08/23/2023 4:27 PM EST This exam is auto-finalizing. It's purpose is for storage only. Kerry MILLS IMFidelina FILM LIBRARY ORDERABLES [place], [place] documented in this encounter Visit Diagnoses Not on filedocumented in this encounter Care Teams Log Driver Relationship Specialty Start Date End Date Jennifer Gallagher APRN [address] [place] [address] [address] [place] [address] PCP - General Family Medicine 10/30/17 01/28/21 documented as of this encounter
--- OUTSIDE RECORDS SUMMARY | 2024-06-27 17:03 | XMS_ITS | Encounter Summary ---
[place] [address] Care Team Providers Care Hatchery Worker Name Role Phone Kerry Ascencio Primary Care Provider + Encounter Details Date Type Department Care Team (Late st Contact Info) Description 09/01/2021 Telephone Cardiology at [address] [phone] Ally Meza, RN Social History Tobacco Use [...] from Agatha,states she was recently [place] [facility] [place] for chestpain,states upon discharge she was asked to contact this office to order and schedule a Nuc Med stress test. Call placed to [facility] spoke with RN in ED as well as Dr Fragoso-order had been generatedby [place] provider for the Nuc Med Stress to be completed in [place] not [facility]. Return call to Agatha,explained above,she voices good understanding and is agreeable with this plan,no further questions voiced. documented in this encounter Plan of Treatment Upcoming Encounters Date Type Department Care Team (Late st Contact Info) Description 06/30/2024 9:40 AM EDT Office Visit Cardiology at [address] [phone] Cody Martinez MD [facility] [place] [address] 10/22/2024 10:30 AM EST Office Visit [place] [phone] Marialuisa Peres MD [facility] [place] [address] documented as of this encounter Visit Diagnoses Not on filedocumented in this encounter Care Teams Hatchery Worker Relationship Specialty Start Date End Date Kerry Ascencio PA [address] [place] [address] [place] [address] PCP - General Internal Medicine 01/29/21 documented as of this encounter
--- OUTSIDE RECORDS SUMMARY | 2024-06-27 17:03 | XMS_ITS | Encounter Summary ---
Author Organization [facility] [place] [address] Care Team Providers Care Sap Mobility Architect Name Role Phone Kerry Ascencio Primary Care Provider + Reason for Referral * Diagnostic Test (Routine) - Closed Specialty Diagnoses / Procedures Referred By Clari dickey Referred To Contact Cardiology Diagnoses Lightheadedness Chest pressure Procedures Ziopatch 48 Hrs-15 Days Nerissa Pimentel APRN [facility] [place] [address] [facility] [place] [address] Referral ID Status Reason Start Date Expiration Date V isits Requested Visits Authorized [id number] Closed Specialty Service Requested 09/19/2021 12/18/2021 1 1 Reason for Visit * Diagnostic Test (Routine) - Closed Specialty Diagnoses / Procedures Referred By Clari dickey Referred To Contact Cardiology Diagnoses Lightheadedness Chest pressure Procedures Ziopatch 48 Hrs-15 Days Nerissa Pimentel APRN [facility] [place] [address] [facility] [place] [address] Referral ID Status Reason Start Date Expiration Date V isits Requested Visits Authorized [id number] Closed Specialty Service Requested 09/19/2021 12/18/2021 1 1 Encounter Details Date Type Department Care Team (Latest Contact Info) Description 09/19/2021 11:19 AM EST - 09/19/2021 11:59 PM EST Hospital Encounter Non-Invasive Cardiology Lab [facility] [place] [phone] Nerissa Pimentel, JU [facility] [place] [address] Lightheadedness; Chest pressure Discharge Disposition: Home Social History Tobacco Use Types Packs/Day Years Used Date Smoking Tobacco: Former Cigarettes 1 10 604 1983 Smokeless Tobacco: Never Alcohol Use Standard [...] this encounter Progress Notes * Nerissa Pimentel, CORK CUTTER - 09/19/2021 11:59 PM EST Discussed results [...] Dr. Martinez on 11/23. Nerissa Pimentel, MSN, INSPECTION ENGINEER-BC, CORK CUTTER [facility] Cardiovascular Medicine documented in this encounter Plan of Treatment Upcoming Encounters Date Type Department Care Team (Late st Contact Info) Description 06/30/2024 9:40 AM EDT Office Visit Cardiology at [address] [phone] Cody Martinez MD [facility] [place] [address] 10/22/2024 10:30 AM EST Office Visit [place] [address] Marialuisa Peres MD [facility] [place] [address] documented as of this encounter Procedures Procedure Name Priority Date/Time Associated Diagnosis Comments ZIOPATCH 48 HRS-15 DAYS Routine 09/19/2021 11:49 AM EST Lightheadedness Chest pressure documented in this encounter Results * Ziopatch 48 Hrs-15 Days (09/19/2021 11:49 AM EST) Anatomical Region Laterality Modality Other Narrative 10/27/2021 9:56 AM EST [facility] ? Zio Patch? Ambulatory Cardiac Event [...] pauses detected. ?? Philippe Jhaveri MD, PhD, [facility] Cardiac Electrophysiology Nerissa Pimentel APRN [facility] [place] documented in this encounter Visit Diagnoses Diagnosis Lightheadedness Dizziness and giddiness Chest pressure Other chest pain documented in this encounter Care Teams Sap Mobility Architect Relationship Specialty Start Date End Date Kerry Ascencio PA [address] [place] [address] [place] [address] PCP - General Internal Medicine 01/29/21 documented as of this encounter
--- OUTSIDE RECORDS SUMMARY | 2024-06-27 17:03 | XMS_ITS | Encounter Summary ---
Author Organization [facility] Address [facility] [place] [address] Care Team Providers Care Digital Tech Name Role Phone Jennifer Gallagher JU Primary Care Provider + Reason for Visit * Reason Comments Pre-op Exam Coronary Artery Disease Encounter Details Date Type Department Care Team (Latest Contact Info) Description 12/19/2018 2:40 PM EDT Office Visit Cardiology at [address] [phone] Cody Martinez MD [facility] [place] [address] Hypertension, unspecified type; Chest pain, unspecified type; [...] from the original note were not included. [facility] [place] [address] CARDIOLOGY OUTPATIENT CONSULTATION [facility] [place] Office Agatha Yi [id number] 12/19/2018 REFERRING PROVIDER: Jennifer Gallagher CHIEF COMPLAINT: Chief Complaint Patient presents with ??? Pre-op Exam ??? Coronary Artery Disease PROBLEM LIST Patient Active Problem List Diagnosis ??? ASCVD (arteriosclerotic cardiovascular disease) ?? Atypical chest pain ?? Abnormal nuclear stress test at [facility] ?? Heart catheterization [facility] November 06, 2017 showing [...] for heart catheterization which was performed at [facility] on November 06, 2017 and showed only [...] Dose unknown ??? mometasone (NASONEX) 50 mcg/actuation [place], Non-Aerosol 2 sprays by Nasal route daily. [...] She is and lives with her in [place], [place]. She is currently caring for her granddaughter (and soon her grandson). 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 She was a smoker but quit in [...] via any of the following mechanisms: Email: [email or web address] documented in this encounter Plan of Treatment Upcoming Encounters Date Type Department Care Team (Late st Contact Info) Description 06/30/2024 9:40 AM EDT Office Visit Cardiology at [address] [phone] Cody Martinez MD [facility] [place] [address] 10/22/2024 10:30 AM EST Office Visit [place] [phone] Marialuisa Peres MD [facility] [place] [address] documented as of this encounter Procedures Procedure [...] (Bezet) 450 ms MUSE SYSTEM Calculated P [place] 34 degrees MUSE SYSTEM Calculated R [place] -18 degrees MUSE SYSTEM Calculated T [place] 36 degrees MUSE SYSTEM INTERPRETATION Normal sinus [...] disease documented in this encounter Care Teams Digital Tech Relationship Specialty Start Date End Date Jennifer Gallagher APRN [address] [place] [address] , [address] [place] [address] PCP - General Family Medicine 10/30/17 01/28/21 documented as of this encounter
--- OUTSIDE RECORDS SUMMARY | 2024-06-27 17:03 | XMS_ITS | Encounter Summary ---
Author Organization [facility] [place] [address] Care Team Providers Care Crew Boat Operator Name Role Phone Jennifer Gallagher JU Primary Care Provider + Encounter Details Date Type Department Care Team (Late st Contact Info) Description 07/29/2020 Ancillary Procedure Radiology Library at [facility] [place] [address] Kerry Ascencio PA [address] [place] [address] [place], [place] [phone] Social History Tobacco Use Types Packs/Day Years [...] AM EDT Office Visit Cardiology at [address] [phone] Cody Martinez MD [facility] [place] [address] 10/22/2024 10:30 AM EST Office Visit Weight [place] [address] Marialuisa Peres MD [facility] [place] [address] documented as of this encounter Procedures Procedure Name Priority Date/Time Associated Diagnosis Comments FILM LIBRARY STORAGE ONLY MR SHOULDER Routine 07/29/2020 12:00 AM EST documented in this encounter Results * Film Library- Storage Only MR Shoulder (07/29/2020 12:00 AM EST) Narrative [facility] - 08/23/2023 4:23 PM EST This exam is auto-finalizing. It's purpose is for storage only. Kerry MILLS IMFidelina FILM LIBRARY ORDERABLES [place], [place] documented in this encounter Visit Diagnoses Not on filedocumented in this encounter Care Teams Crew Boat Operator Relationship Specialty Start Date End Date Jennifer Gallagher APRN [address] [place] [address] [address] [place] [address] PCP - General Family Medicine 10/30/17 01/28/21 documented as of this encounter
--- OUTSIDE RECORDS SUMMARY | 2024-06-27 17:03 | XMS_ITS | Encounter Summary ---
Author Organization [facility] [place] [address] Care Team Providers Care Police Judge Name Role Phone Kerry Ascencio Primary Care Provider + Encounter Details Date Type Department Care Team (Late st Contact Info) Description 09/05/2021 Ancillary Procedure Radiology Library at [facility] [address] [place] [phone] Kerry Ascencio PA [address] [place] [address] [address] [place], [place] [address] Social History Tobacco Use Types Packs/Day Years [...] 9:40 AM EDT Office Visit Cardiology at [address] [place] [phone] [facility] [address] [place] [address] 10/22/2024 10:30 AM EST Office Visit [place] [address] [facility] [place] [address] documented as of this encounter Procedures Procedure Name Priority Date/Time Associated Diagnosis Comments FILM LIBRARY STORAGE ONLY NUCLEAR MEDICINE Routine 09/05/2021 12:00 AM EST documented in this encounter Results * Film Library- Storage Only nuclear medicine (09/05/2021 12:00 AM EST) Narrative [facility] - 10/20/2021 11:33 AM EST This exam is auto-finalizing. It's purpose is for storage only. Kerry MILLS IMFidelina FILM LIBRARY ORDERABLES [place], [place] documented in this encounter Visit Diagnoses Not on filedocumented in this encounter Care Teams Police Judge Relationship Specialty Start Date End Date Kerry Ascencio PA [address] [place] [address] [place] [address] PCP - General Internal Medicine 01/29/21 documented as of this encounter
--- OUTSIDE RECORDS SUMMARY | 2024-06-27 17:03 | XMS_ITS | Encounter Summary ---
Author Organization [facility] Address [facility] [place] [address] Care Team Providers Care Public Health Worker Name Role Phone Kerry Ascencio Primary Care Provider + Encounter Details Date Type Department Care Team (Late st Contact Info) Description 10/26/2021 Telephone Ophthalmology at [facility] [place] [address] Carolee Harrison MD [facility] [place] [address] Social History Tobacco Use Types Packs/Day Years [...] to, etc): message sent triage Best number: [phone] documented in this encounter Plan of Treatment Upcoming Encounters Date Type Department Care Team (Late st Contact Info) Description 06/30/2024 9:40 AM EDT Office Visit Cardiology at [address] [phone] Cody Martinez MD [facility] [place] [address] 10/22/2024 10:30 AM EST Office Visit Weight [place] [phone] Marialuisa Peres MD [facility] [place] [address] documented as of this encounter Visit Diagnoses Not on filedocumented in this encounter Care Teams Public Health Worker Relationship Specialty Start Date End Date Kerry Ascencio PA [address] [place] [address] JENI MUNOZ [address] PCP - General Internal Medicine 01/29/21 documented as of this encounter
--- OUTSIDE RECORDS SUMMARY | 2024-06-27 17:03 | XMS_ITS | Encounter Summary ---
Author Organization [facility] Address [facility] [place] [address] Care Team Providers Care Security Checker Name Role Phone Jennifer Gallagher JU Primary Care Provider + Encounter Details Date Type Department Care Team (Late st Contact Info) Description 12/01/2019 Orders Only Cardiology at [address] [phone] Cody Martinez MD [facility] [address] ASCVD (arteriosclerotic cardiovascular disease) (Primary Dx) Social [...] 9:40 AM EDT Office Visit Cardiology at [address] [phone] Cody Martinez MD [facility] [address] 10/22/2024 10:30 AM EST Office [place] [address] Marialuisa Peres MD [facility] [place] [address] documented as of this encounter Visit Diagnoses Diagnosis ASCVD (arteriosclerotic cardiovascular disease)- Primary Unspecified cardiovascular disease documented in this encounter Care Teams Security Checker Relationship Specialty Start Date End Date Jennifer Gallagher APRN [address] [place] [address] DR [address] [place] [address] PCP - General Family Medicine 10/30/17 01/28/21 documented as of this encounter
--- OUTSIDE RECORDS SUMMARY | 2024-06-27 17:03 | XMS_ITS | Encounter Summary ---
Author Organization [facility] Address [facility] [place] [address] Care Team Providers Care Exhibition Designer Name Role Phone Jennifer Gallagher JU Primary Care Provider + Reason for Visit * Reason Onset Date Comments Medication Refill 02/02/2020 Encounter Details Date Type Department Care Team (Late st Contact Info) Description 02/02/2020 Refill Cardiology at [address] [phone] Cody Martinez MD [facility] [place] [address] Medication Refill Social History Tobacco Use Types [...] AM EDT Office Visit Cardiology at [address] [phone] Cody Martinez MD [facility] [place] [address] 10/22/2024 10:30 AM EST Office Visit [place] [phone] Marialuisa Peres MD [facility] [address] documented as of this encounter Visit Diagnoses Diagnosis ASCVD (arteriosclerotic cardiovascular disease)- Primary Unspecified cardiovascular disease documented in this encounter Care Teams Exhibition Designer Relationship Specialty Start Date End Date Jennifer Gallagher APRN [address] [place] [address] [address] PCP - General Family Medicine 10/30/17 01/28/21 documented as of this encounter
--- OUTSIDE RECORDS SUMMARY | 2024-06-27 17:03 | XMS_ITS | Encounter Summary ---
Author Organization [facility] [place] [address] Care Team Providers Care Operations Project Manager Name Role Phone Jennifer Gallagher JU Primary Care Provider + Reason for Visit * Auth/Cert Specialty Diagnoses / Procedures Referred By Clari dickey Referred To Contact Diagnoses Chest pain, unspecified type [R07.9] Procedures CARDIAC CATHETERIZATION Referral ID Status Reason Start Date Expiration Date Visits Re quested Visits Authorized [id number] 1 1 Encounter Details Date Type Department Care Team (Late st Contact Info) Description 11/06/2017 9:00 AM EST - 11/06/2017 10:00 AM EST [place] [address] [facility] [place] [address] CARDIAC CATHETERIZATION Social History Tobacco Use Types [...] Kirkpatrick MD - 11/06/2017 11:05 AM EST [facility] SAME DAY DISCHARGE SUMMARY Agatha Yi [id number] 11/06/2017 Primary Care Provider: Jennifer Gallagher APRN Referring [place] Department Supervisor: Ede Naranjo MD Procedures: Left heart catheterization, [...] (LV = 140/20 mmHg). Michelet Kirkpatrick MD, [facility] Staff [place] Department Supervisor 11/06/2017 documented in this encounter Discharge Instructions * Patient Instructions* Cristina Parekh Gavin - 11/06/2017 10:42 AM EST Cardiology Instructions Call your doctor if: Chest pain, dyspnea, pain or swelling in legs occurs. If you have non-emergent questions between now and the time of your follow up appointments: -During 8am-5pm Sunday through Sunday call [phone] to speak with a nurse in the cardiology clinic -All other times call [phone] and ask to speak to the plastic joint maker decay control operator. MEDICATIONS - Please discuss with Dr. Naranjo [...] Primary care provider: Cardiology: Jennifer Gallagher APRN [phone] Follow up as planned or as needed. Dr. Naranjo [phone] Call for follow up appointment 2weeks-1month following catherization. * Attachments The following attachments cannot be sent through Care Everywhere. * CORONARY ANGIOGRAM: POST-OP (VINCENTIAN) documented in this encounter Medications at Time [...] for Pain. 02/02/2020 mometasone (NASONEX) 50 mcg/actuation [place], Non-Aerosol 2 sprays by Nasal route daily. [...] Pre-Procedural H&P Patient Name: Agatha Yi : [id number] y.o. MR#: [id number] Chief Complaint: chest pain Planned Procedure: LHC [...] AM EDT Office Visit Cardiology at [address] [phone] [facility] [place] [address] 10/22/2024 10:30 AM EST Office Visit [place] [phone] [facility] [place] [address] documented as of this encounter Procedures Procedure [...] (Bezet) 444 ms MUSE SYSTEM Calculated P [place] 20 degrees MUSE SYSTEM Calculated R [place] -19 degrees MUSE SYSTEM Calculated T [place] 7 degrees MUSE SYSTEM INTERPRETATION Normal sinus [...] 7:59 AM EST) Neutrophil % 56.2 % [facility] Neutrophil Absolute 3.41 1.70 - 6.10 x10(3)/[facility] Lymph % 31.7 % [facility] Lymphocytes Abs 1.9 0.9 - 3.2 x10(3)/[facility] LABOR[facility]ORY Monocyte % 8.1 % [facility] Monocyte Abs 0.5 0.3 - 0.9 x10(3)/[facility] LABOR[facility]ORY Eos % 2.6 % [facility] Eosinophils Abs 0.2 0.0 - 0.4 x10(3)/[facility] Basophil % 1.2 % [facility] Baso Absolute 0.1 0.0 - 0.1 x10(3)/[facility] LABORATORY Immature Gran % 0.20 % [facility] Comment: Immature granulocytes(IG's)percentage and absolute count will include metamyelocytes, myelocytes, and promyelocytes. Blood smears from CBCs yielding IG's will be scanned manually for concordance. If this scan disagrees with the automated IG or if promyelocytes are noted, a manual differential will be performed. Immature Gran Absolute 0.01 0.00 - 0.04 x10(3)/[facility] Blood specimen (specimen) 11/06/2017 7:59 AM EST 11/06/2017 8:18 AM EST Narrative Resulting Agency Comment Spec In Lab Ede Naranjo MD HEMATOLOGY ORDERAB LES Performing Organization Address City/State/[facility] Co de Phone Number [facility] [place] [address] * (ABNORMAL) Hemogram (11/06/2017 7:59 AM EST) White Blood Cell 6.1 4.0 - 9.5 x10(3)/ L [facility] Red Blood Cell 4.59 4.00 - 5.21 x10(6)/ L [facility] Hemoglobin 14.4 11.7 - 15.5 gm/dL [facility] Hematocrit 43.0 35.7 - 45.8 % [facility] Mean Cell Volume 93.7 82.6 - 94.4 fL [facility] Mean Cell Hemoglobin 31.4 27.1 - 32.0 pg [facility] Mean Cell Hemoglobin Concentration 33.5 31.7 - 35.0 gm/dL [facility] Platelet 206 145 - 357 x10(3)/mc L [facility] RDW Standard Deviation 47.4(H) 37.0 - 46.0 fL [facility] RDW coefficient of variation 13.8 11.5 - 14.1 % [facility] Mean Platelet Volume 12.0 7.6 - 12.9 fL [facility] NRBC% auto 0.0 % [facility] NRBC Absolute 0.000 0.000 - 0.000 x10(3)/mc L [facility] Blood specimen (specimen) 11/06/2017 7:59 AM EST 11/06/2017 8:18 AM EST Narrative Resulting Agency Comment Spec In Lab Ede Naranjo MD HEMATOLOGY ORDERAB LES Performing Organization Address City/State/[facility] Co de Phone Number [facility] [place] [phone] * (ABNORMAL) BMP w/fasting Glucose (11/06/2017 7:59 AM EST) Glucose Fasting 103(H) 65 - 99 mg/dL [facility] Comment: ?Fasting* Glucose Interpretive Criteria [...] of Diabetes Mellitus, Position Statement from the [place] [employer]. ??Diabetes Care, Volume 33, Supplement 1, Sep 2009 Blood Urea Nitrogen 9 8 - 18 mg/dL [facility] Creatinine 0.89 0.70 - 1.20 mg/dL [facility] Sodium 143 135 - 145 mmol/L [facility] Potassium 4.5 3.5 - 5.0 mmol/L [facility] Comment: Please note: ??Patients with WBC >100,000 may have falsely elevated Potassium levels. ??For accurate Potassium quantification in these patients send serum separator tube (gold top) for subsequent determinations. ??Contact the Clinical Chemistry Laboratory if there are any questions. Chloride 105 98 - 107 mmol/L [facility] Carbon Dioxide 26 22 - 31 mmol/L [facility] Anion Gap 12 5 - 15 mmol/L [facility] Calcium 9.4 8.5 - 10.5 mg/dL [facility] Est Glomerular Filtration Rate >60 >=60 [facility] Comment: The reported eGFR should be multiplied by 1.2 for patients. The MDRD is not an appropriate measure of renal function for patients with body mass extremes or in patients with acute kidney failure. http://Rogate/DHnkdep http://Rogate/DHMCnkf Blood specimen (specimen) 11/06/2017 7:59 AM EST 11/06/2017 8:18 AM EST Narrative Resulting Agency Comment Spec In Lab Ede Naranjo MD CHEMISTRY ORDERABL ES [facility] [place] [address] * Prothrombin Time (11/06/2017 7:59 AM EST) Prothrombin Time 12.8 11.8 - 14.0 sec [facility] International Normalization Ratio 1.0 0.9 - 1.1 [facility] Comment: An [...] Lab Ede Naranjo MD HEMATOLOGY ORDERAB LES [facility] [place] [address] documented in this encounter Visit Diagnoses Diagnosis [...] infusion 200 mL/hr, Intravenous, CONTINUOUS, Starting on 11/06/17 [...] verapamil (ISOPTIN) injection ONCE PRN, Starting on 11/06/17 at 1002, Until 11/06/17 at 1305, [...] Routine 0949 (Given - Provid er: Chanelle Mckinnye, EMELY) heparin (porcine) injection (CANCELED) ONCE PRN, [...] Until Sun11/06/17 at 1305, Cath (Intra-Procedure), Routine 0948 (Given [...] PRN, Starting on Sun11/06/17 at 1002, Until 11/06/17 at 1305, Cath (Intra-Procedure), Routine 1002 (Given - Provid er: Cristina Parkeh) verapamil (ISOPTIN) injection (CANCELED) ONCE PRN, Starting on Sun11/06/17 at 1002, Until 11/06/17 at 1305, Administer over 2 Minutes, Cath (Intra-Procedure) 1002 (Given - Provid er: Cristina Parekh) documented in this encounter Care Teams Operations Project Manager Relationship Specialty Start Date End Date Jennifer Gallagher APRN [address] [place] [address] [address] [place] [address] PCP - General Family Medicine 10/30/17 01/28/21 documented as of this encounter
--- OUTSIDE RECORDS SUMMARY | 2024-06-27 17:03 | XMS_ITS | Encounter Summary ---
[place] [address] Care Team Providers Care Divorce Mediator Name Role Phone Kerry Ascencio Primary Care Provider + Encounter Details Date Type Department Care Team (Late st Contact Info) Description 09/22/2021 Telephone Cardiology at [address] [phone] Ally Meza, RN Social History Tobacco Use [...] AM EDT Office Visit Cardiology at [address] [phone] Cody Martinez MD [facility] [place] [address] 10/22/2024 10:30 AM EST Office Visit [place] [phone] Marialuisa Peres MD [facility] [place] [address] documented as of this encounter Visit Diagnoses Not on filedocumented in this encounter Care Teams Divorce Mediator Relationship Specialty Start Date End Date Kerry Ascencio PA [address] [place] [address] [place] [address] PCP - General Internal Medicine 01/29/21 documented as of this encounter
--- OUTSIDE RECORDS SUMMARY | 2024-06-27 17:03 | XMS_ITS | Encounter Summary ---
Author Organization [facility] Address [facility] [place] [address] Care Team Providers Care Estate And Trust Tax Principal Name Role Phone Kerry Ascencio Primary Care Provider + Encounter Details Date Type Department Care Team (Latest Contact Info) Description 09/05/2021 9:20 AM EST Ext Surgery or Single Event [facility] [address] [place] [address] Cortez Cleary MD [facility] [place] [address] Chest pain, unspecified type Social History Tobacco [...] Stress Test- Final Report Agatha Yi 1960 [facility] Referring: Fouzia Indication: Non-diagnostic ETT Date: [...] 9:40 AM EDT Office Visit Cardiology at [address] [phone] Cody Martinez MD [facility] [place] [address] 10/22/2024 10:30 AM EST Office Visit [place] [phone] Marialuisa Peres MD [facility] [place] [address] documented as of this encounter Procedures Procedure [...] type documented in this encounter Care Teams Estate And Trust Tax Principal Relationship Specialty Start Date End Date Yasewicz, Kerry C, PA [address] [place] [address] [place] [address] PCP - General Internal Medicine 01/29/21 documented as of this encounter
--- OUTSIDE RECORDS SUMMARY | 2024-06-27 17:03 | XMS_ITS | Encounter Summary ---
Author Organization [facility] [place] [address] Care Team Providers Care Bag Liner Name Role Phone Kerry Ascencio Primary Care Provider + Encounter Details Date Type Department Care Team (Late st Contact Info) Description 08/02/2021 Ancillary Procedure Radiology Library at [facility] [place] [address] [place] [address] Kerry Ascencio PA [address] [place] [address] [address] [place], [place] [phone] Social History Tobacco Use Types Packs/Day Years [...] AM EDT Office Visit Cardiology at [address] [place] [phone] Cody Martinez MD [facility] [address] [place] [address] 10/22/2024 10:30 AM EST Office Visit [place] [address] Marialuisa Peres MD [facility] [place] [address] documented as of this encounter Procedures Procedure Name Priority Date/Time Associated Diagnosis Comments FILM LIBRARY STORAGE ONLY DX WRIST Routine 08/02/2021 12:00 AM EST documented in this encounter Results * Film Library- Storage Only DX Wrist (08/02/2021 12:00 AM EST) Narrative [facility] - 08/23/2023 4:25 PM EST This exam is auto-finalizing. It's purpose is for storage only. Kerry MILLS IMFidelina FILM LIBRARY ORDERABLES [place], [place] documented in this encounter Visit Diagnoses Not on filedocumented in this encounter Care Teams Bag Liner Relationship Specialty Start Date End Date Kerry Ascencio PA [address] [place] [address] [place] [address] PCP - General Internal Medicine 01/29/21 documented as of this encounter
--- OUTSIDE RECORDS SUMMARY | 2024-06-27 17:03 | XMS_ITS | Encounter Summary ---
[place] [address] Care Team Providers Care Assayer Name Role Phone Jennifer Gallagher APRN Primary Care Provider + Reason for Visit * Reason Onset Date Comments Other 10/31/2019 symptom call Encounter Details Date Type Department Care Team (Late st Contact Info) Description 10/31/2019 Telephone Cardiology at [address] [phone] Ally Meza, RN Other (symptom call) Social [...] set for early December,Agatha will request Cardiology Drapery Rod Assembler add her to a cancellation list to be seen sooner if anything opens up. Instructed Anay in need to seek urgent/emergent assessment should her symptoms worsen,she voices good understanding. No further questions. documented in this encounter Plan of Treatment Upcoming Encounters Date Type Department Care Team (Late st Contact Info) Description 06/30/2024 9:40 AM EDT Office Visit Cardiology at [address] [phone] Cody Martinez MD [facility] [place] [address] 10/22/2024 10:30 AM EST Office Visit [place] [phone] Marialuisa Peres MD [facility] [place] [address] documented as of this encounter Visit Diagnoses Not on filedocumented in this encounter Care Teams Assayer Relationship Specialty Start Date End Date Jennifer Gallagher APRN [address] [place] [address] , [address] [address] PCP - General Family Medicine 10/30/17 01/28/21 documented as of this encounter
--- OUTSIDE RECORDS SUMMARY | 2024-06-27 17:03 | XMS_ITS | Encounter Summary ---
Author Organization [facility] Address [facility] [place] [address] Care Team Providers Care Bean Weigher Name Role Phone Jennifer Gallagher JU Primary Care Provider + Encounter Details Date Type Department Care Team (Late st Contact Info) Description 12/13/2017 3:00 PM EDT Office Visit Cardiology at [address] [phone] Autumn Galvez PA [facility] [place] [address] Hypertension, unspecified type Social History Tobacco Use [...] the original note were not included. [facility] [place] [address] General Cardiology Follow Up Subjective: Patient ID: [...] nitro. She will have shoulder surgery in [facility] on January [address] [...] mg tablet ??? mometasone (NASONEX) 50 mcg/actuation [place], Non-Aerosol 2 sprays by Nasal route daily. [...] ?? Diagnostic Studies: ?? Nuclear stress test ([facility], 06/2017) -Normal LV function, no wall motion [...] 140/20 mmHg). Awaiting surgery January 08 in [facility]. She will be fine for this [...] with Dr. Naranjo. GENE Salas 12/13/2017 Pager [phone] General Cardiology 12/13/2017 There are no Patient Instructions on file for this visit. documented in this encounter Plan of Treatment Upcoming Encounters Date Type Department Care Team (Late st Contact Info) Description 06/30/2024 9:40 AM EDT Office Visit Cardiology at [address] [phone] Cody Martinez MD [facility] [place] [address] 10/22/2024 10:30 AM EST Office Visit Weight [place] [phone] Marialuisa Peres MD [facility] [place] [address] documented as of this encounter Visit Diagnoses Diagnosis Hypertension, unspecified type documented in this encounter Care Teams Bean Weigher Relationship Specialty Start Date End Date Jennifer Gallagher APRN [address] [place] [address] , [address] [place] [address] PCP - General Family Medicine 10/30/17 01/28/21 documented as of this encounter
--- OUTSIDE RECORDS SUMMARY | 2024-06-27 17:03 | XMS_ITS | Encounter Summary ---
Author Organization [facility] [place] [address] Care Team Providers Care Relationship Consultant Name Role Phone Kerry Ascencio Primary Care Provider + Reason for Referral * Diagnostic Test (Routine) - Closed Specialty Diagnoses / Procedures Referred By Clari dickey Referred To Contact Cardiology Diagnoses ASCVD (arteriosclerotic cardiovascular disease) Procedures Echocardiogram Transthoracic([facility]) Robert Pimentel APRN [facility] [place] [address] [facility] [place] [address] Referral ID Status Reason Start Date Expiration Date V isits Requested Visits Authorized [id number] Closed Specialty Service Requested 09/19/2021 09/19/2022 1 1 * Diagnostic Test (Routine) - Closed Specialty Diagnoses / Procedures Referred By Clari dickey Referred To Contact Cardiology Diagnoses Lightheadedness Chest pressure Procedures Ziopatch 48 Hrs-15 Days Robert Pimentel APRN [facility] [place] [address] [facility] [place] [address] Referral ID Status Reason Start Date Expiration Date V isits Requested Visits Authorized [id number] Closed Specialty Service Requested 09/19/2021 12/18/2021 1 1 Reason for Visit * Consultation (Routine) - Closed Specialty Diagnoses / Procedures Referred By Clari dickey Referred To Contact Cardiology Diagnoses Chest pain overdue for f/up- h/o non-obstructive CAD on ASA, rosuvastatin, zetia, lisinopril, former smoker(quit 1979). s/p admission 08/30/21 @[facility] for chest pain improved w/ nitro cardiac w/up negative. (last seen telehlth 02/10/20-[facility]) Kerry Ascencio PA [address] [place] [address] [place] [address] Cody Martinez MD [facility] [place] [address] Referral ID Status Reason Start Date Expiration Date Visits Re quested Visits Authorized [id number] Closed 09/08/2021 09/08/2022 1 1 Encounter Details Date Type Department Care Team (Latest Contact Info) Description 09/19/2021 10:40 AM EST Office Visit Cardiology at [address] [phone] Robert Pimentel APRN [facility] [place] [address] ASCVD (arteriosclerotic cardiovascular disease); Hypertension, unspecified type; [...] in this encounter Progress Notes * Robert Pimentel, SENIOR POWER PLANT OPERATOR - 09/19/2021 10:40 AM EST Images from the original note were not included. [facility] [place] [address] GENERAL CARDIOLOGY FOLLOW-UP Subjective: CC: Follow up of chest pain + Urgent care visit last week HPI: Agatha Yi is a 61 y.o. female with past cardiac history significant for: 1. ASCVD: H/o abnormal nuclear stress with [facility] 10/2017 with nml Lmain, mild diffuse LAD, nml LCx, mild diffuse RCA 2. HTN 3. HLD Other PMH notable for: Hypothyroidism Interim: Last seen by Dr. Martinez via telehealth 01/2021, at which time chest pain was atypical, no changes made. Has been having chest pain recently, for which she was seen at [facility] and monitored overnight overnight in August with negative work up. She had a nuclear stress test on 09/06/21, which did not show any ischemia or infarct, with normal LV function. She was then instructed by our net front end developer to proceed to Urgent Care to be [...] The episode that prompted her visit to [facility] in Aug lasted hours- troponin trended and [...] time. She reports a family history of [place], CVA, and carotid stenosis. She has had [...] changes STUDIES: Date CV Study Major Findings 12/21/21 Nuclear stress No ischemia or infarct, normal LVEF. 11/06/2017 [facility] Nml Lmain, mild diffuse LAD, nml [...] Zio and echo results Robert Pimentel, MSN, FLATBED STITCHER-BC, SENIOR POWER PLANT OPERATOR [facility] [place] Medicine Pager [phone] 09/19/2021 documented in this encounter Plan of Treatment Upcoming Encounters Date Type Department Care Team (Late st Contact Info) Description 06/30/2024 9:40 AM EDT Office Visit Cardiology at [address] [phone] Cody Martinez MD [facility] [place] [address] 10/22/2024 10:30 AM EST Office Visit [place] [phone] Marialuisa Peres MD [facility] [address] documented as of this encounter Procedures Procedure Name Priority Date/Time Associated Diagnosis Comments EKG 12-LEAD Routine 09/19/2021 10:35 AM EST ASCVD (arteriosclerotic cardiovascular disease) documented in this encounter Results * ECHO COMPLETE (12/21/2021 2:53 PM EDT) EF 65 HEARTLAB SYSTEM Anatomical Region Laterality Modality Other 12/21/2021 1:07 PM EDT Narrative 12/21/2021 3:55 PM EDT ?[facility] ?[address] ? [place] [address] ?Voice: ?Fax: ? Echocardiogram Report Name: AGATHA YI ? Study Date: 12/21/2021 01:07 PM ? Patient Location: : 1960 ? Height: 155 cm ? Account: [id number] Age: 61 yrs ? Weight: 82 kg Gender: Female ?BSA: 1.8 m2 Ordering Physician: ROBERT PIMENTEL Referring Physician: ROBERT PIMENTEL Performed By: Carey Davenport RDCS Reason For Study: ASCVD Interpreting Fellow: Ruddy Zhang. Exam Location: [facility]. Interpretation Summary Left ventricle is normal in size and function with EF 65% and no WMA. Mild basal septal hypertrophy without LVOT obstruction. Mild filling abnormality. Right ventricle is normal size and systolic function. No significant valvular abnormalities. Compared to prior TTE report from 03/28/2012, there are no significant changes. Procedure Complete-[id number]. Left Ventricle Left ventricle is of normal [...] Procedure Note Michelet Day MD - 12/21/2021 [facility] [address] [place] [address] Voice: Fax: Echocardiogram Report Name: NICOLASMECCAKENNEYAGATHA L Study Date: 201:07 PM Patient Location: : 1960 Height: 155 cm Account: [id number] Age: 61 yrs Weight: 82 kg Gender: Female BSA: 1.8 m2 Ordering Physician: ROBERT PIMENTEL Referring Physician: ROBERT PIMENTEL Performed By: Carey Davenport RDCS Reason For Study: ASCVD Interpreting Fellow: Ruddy Zhang. Exam Location: [facility]. Interpretation Summary Left ventricle is normal in size and function with EF 65% and no WMA. Mildbasal septal hypertrophy without LVOT obstruction. Mild filling abnormality. Right ventricle is normal size and systolic function. No significant valvular abnormalities. Compared to prior TTE report from 03/28/2012, there are no significantchanges. Procedure Complete-[id number]. Left Ventricle Left ventricle is of normal [...] 3-5moderate 5 - 6-14large Aneurysmal 15-16diffuse Robert Gavin Pimentel SENIOR POWER PLANT OPERATOR ECHO ORDERABLES * Ziopatch 48 Hrs-15 Days (09/19/2021 11:49 AM EST) Anatomical Region Laterality Modality Other Narrative 10/27/2021 9:56 AM EST [facility] ? Zio Patch? Ambulatory Cardiac Event [...] pauses detected. ?? Philippe Jhaveri MD, PhD, [facility] Cardiac Electrophysiology Robert Pimentel APRN CARDIAC SERVICES O RDERABLES * EKG 12 Lead (09/19/2021 10:35 AM EST) Ventricular rate 80 BPM MUSE SYSTEM Atrial Rate 80 BPM MUSE SYSTEM P-R Interval 158 ms MUSE SYSTEM QRS Duration 72 ms MUSE SYSTEM Q-T Interval 390 ms MUSE SYSTEM QTC Calculated (Bezet) 449 ms MUSE SYSTEM Calculated P [place] 34 degrees MUSE SYSTEM Calculated R [place] -49 degrees MUSE SYSTEM Calculated T [place] 37 degrees MUSE SYSTEM INTERPRETATION Normal sinus [...] disease documented in this encounter Care Teams Relationship Consultant Relationship Specialty Start Date End Date Kerry Ascencio PA [address] [place] [address] [place] [address] PCP - General Internal Medicine 01/29/21 documented as of this encounter
--- OUTSIDE RECORDS SUMMARY | 2024-06-27 17:03 | XMS_ITS | Encounter Summary ---
[place] [address] Care Team Providers Care Plastics Technician Name Role Phone Kerry Ascencio Primary Care Provider + Reason for Referral * Diagnostic Test (Routine) - Closed Specialty Diagnoses / Procedures Referred By Clari dickey Referred To Contact Radiology Diagnoses Solitary pulmonary nodule present on computed tomography of lung Procedures NM PET CT Skull Base to Mid-thigh Kerry Ascencio PA [address] [place] [address] [place] [address] [place] [address] Referral ID Status Reason Start Date Expiration Date V isits Requested Visits Authorized [id number] Closed Specialty Service Requested 09/15/2021 03/16/2023 1 1 Reason for Visit * Diagnostic Test (Routine) - Closed Specialty Diagnoses / Procedures Referred By Cox Bransondeepa t Referred To Contact Radiology Diagnoses Solitary pulmonary nodule present on computed tomography of lung Procedures NM PET CT Skull Base to Mid-thigh Kerry Ascencio PA [address] [place] [address] [place] [address] [place] [address] Referral ID Status Reason Start Date Expiration Date V isits Requested Visits Authorized [id number] Closed Specialty Service Requested 09/15/2021 03/16/2023 1 1 Encounter Details Date Type Department Care Team (Late st Contact Info) Description 10/19/2021 11:43 AM EST - 10/19/2021 11:59 PM [facility] Hospital Encounter [place] [phone] Kerry Ascencio PA [facility] [place] [address] Solitary pulmonary nodule present on computed tomography [...] AM EDT Office Visit Cardiology at [address] [phone] Cody Martinez MD [facility] [address] 10/22/2024 10:30 AM EST Office Visit Weight and Wellness at [facility] [place] [address] Marialuisa Peres MD [facility] [place] [address] documented as of this encounter Procedures Procedure [...] who have questions please contact the health healthcare administrative assistant that requested your imaging first. ? Narrative 10/20/2021 1:55 PM EST EXAMINATION: NM PET CT STANDARD SKULL BASE TO MID-THIGH CLINICAL HISTORY: Incidental 11X12 mm RLL nodule on CTA for PE at [facility] on 08/30/21 TECHNIQUE: Following IV injection of 74-kvvibb-6-deoxyglucose (FDG) a standard uptake of approximately 60 [...] RLL nodule on CTA for PE at [facility] on 08/30/21 TECHNIQUE: Following IV injection of 26-xlqsyp-5-deoxyglucose (FDG) astandard uptake of approximately 60 minutes, [...] patients who have questions please contactthe health healthcare administrative assistant that requested your imaging first. Kerry MILLS IMG PET ORDERABL ES * POCT Glucose (10/19/2021 12:12 PM EST) Glucose, POC 81 65 - 199 mg/dL [facility] Comment: Supplemental ranges: <140 mg/dL before meals <180 mg/dL all other times of the day Blood 10/19/2021 12:1 2 PM EST 10/19/2021 12:12 PM EST Kerry MILLS POINT OF CARE TE ST ORDERABLES [facility] [place] [address] documented in this encounter Visit Diagnoses Diagnosis [...] Arm documented in this encounter Care Teams Plastics Technician Relationship Specialty Start Date End Date Kerry Ascencio PA [address] [place] [address] [place] [address] PCP - General Internal Medicine 01/29/21 documented as of this encounter
--- OUTSIDE RECORDS SUMMARY | 2024-06-27 17:03 | XMS_ITS | Encounter Summary ---
Author Organization [facility] [place] [address] Care Team Providers Care Sound Art Instructor Name Role Phone Jennifer Gallagher JU Primary Care Provider + Encounter Details Date Type Department Care Team (Late st Contact Info) Description 08/04/2019 Ancillary Procedure Radiology Library at [facility] [place] [address] Kerry Ascencio PA [address] [place] [address] [place], [place] [phone] Social History Tobacco Use Types Packs/Day Years [...] AM EDT Office Visit Cardiology at [address] [phone] Cody Martinez MD [facility] [place] [address] 10/22/2024 10:30 AM EST Office Visit Weight [place] [address] Marialuisa Peres MD [facility] [place] [address] documented as of this encounter Procedures Procedure Name Priority Date/Time Associated Diagnosis Comments FILM LIBRARY STORAGE ONLY DX SHOULDER Routine 08/04/2019 12:00 AM EST documented in this encounter Results * Film Library- Storage Only DX Shoulder (08/04/2019 12:00 AM EST) Narrative [facility] - 08/23/2023 4:22 PM EST This exam is auto-finalizing. It's purpose is for storage only. Kerry MILLS IMFidelina FILM LIBRARY ORDERABLES [place] documented in this encounter Visit Diagnoses Not on filedocumented in this encounter Care Teams Sound Art Instructor Relationship Specialty Start Date End Date Jennifer Gallagher APRN [address] [place] [address] [address] [place] [address] PCP - General Family Medicine 10/30/17 01/28/21 documented as of this encounter
--- OUTSIDE RECORDS SUMMARY | 2024-06-27 17:03 | XMS_ITS | Encounter Summary ---
Author Organization [facility] [place] [address] Care Team Providers Care Sticker On Name Role Phone Kerry Ascencio Primary Care Provider + Reason for Visit * Reason Onset Date Comments Questions 05/05/2021 Can she fly Encounter Details Date Type Department Care Team (Late st Contact Info) Description 05/05/2021 Telephone Ophthalmology at [facility] [place] [address] Carolee Harrison MD [facility] [place] [address] Questions (Can she fly) Social History Tobacco [...] ??1:45 PM Author Type: Physician Status: Signed Outreach And Education Social Worker: Carolee Harrison MD (Physician) ASSESSMENT/PLAN: ?? 1. [...] OU Sooner PRN ?? I, Soraya Hamilton, [facility], have performed the documentation for this encounter [...] 9:40 AM EDT Office Visit Cardiology at [address] [phone] Cody Martinez MD [facility] [place] [address] 10/22/2024 10:30 AM EST Office [place] [phone] Marialuisa Peres MD [facility] [place] [address] documented as of this encounter Visit Diagnoses Not on filedocumented in this encounter Care Teams Sticker On Relationship Specialty Start Date End Date Kerry Ascencio PA [address] [place] [address] [place] [address] PCP - General Internal Medicine 01/29/21 documented as of this encounter
--- OUTSIDE RECORDS SUMMARY | 2024-06-27 17:03 | XMS_ITS | Encounter Summary ---
Author Organization [facility] Address [facility] [place] [address] Care Team Providers Care Commercial Sales Representative Name Role Phone Kerry Villalobos APRN Primary Care Provider [phone] Reason for Visit * Consultation (Routine) - Closed Specialty Diagnoses / Procedures Referred By Clari dickey Referred To Contact Cardiology Diagnoses chest wall pain Jennifer Gallagher APRN [address] [place] [address] , [address] [address] Errol Méndez MD [facility] [place] [address] Referral ID Status Reason Start Date Expiration Date V isits Requested Visits Authorized [id number] Closed Consult, Test & Treat Connection Center 09/14/2017 09/14/2018 1 1 Encounter Details Date Type Department Care Team (Late st Contact Info) Description 10/25/2017 1:20 PM EST Office Visit Cardiology at [address] [phone] Ede Naranjo MD [facility] [place] [address] Chest pain, unspecified type; Essential hypertension; MOISES [...] more diaphoresis. Was seen by aCardiologist at [facility] this Fall who started her on ASA, statin, and BB. No change in sxs with these medications. Stopped metoprolol a couple weeks ago and noticed no difference since stopping this medication. Social Hx: - Lives in [place], [place] - Babysits her grand-daughter most days - Has 2 dogs; yellow lab and a rescue pit bull - Tobacco: Quit in 1984; 1 ppd x 10+ years - EtOH: None in 20+ yrs Family Hx: - Mother: CAD, CVAs - Father: [place] in 50s Patient Active Problem List Diagnosis Code ??? CIS - Arthritis ??? CIS - Asthma ??? CIS - Ectopic ??? CIS - Multiparous ??? CIS - Uterine leiomyoma Past Surgical History: Procedure Laterality Date ??? CREATED BY INTERFACE Knee surgery 1989 Procedure Date: 12/16/2008 ??? CREATED BY INTERFACE Tubal ligation 1975 Procedure Date: 12/16/2008 ??? GALLBLADDER SURGERY ??? [...] wave abnormality Diagnostic Studies: Nuclear stress test ([facility], 06/2017) -Normal LV function, no [...] time today. She was previously seen bya benefits sales consultant at [facility] but was making little clinical progress on [...] # ASCVD - Abnormal nuc stress at [facility] suggesting distal LAD disease - Persistent sxs, [...] MD, FACP, FACC Section of Cardiovascular Medicine [facility] Start Up Specialistborder police [facility] documented in this encounter Plan of Treatment Upcoming Encounters Date Type Department Care Team (Late st Contact Info) Description 06/30/2024 9:40 AM EDT Office Visit Cardiology at [address] [place] [address] Cody Martinez MD [facility] [place] [place] [address] 10/22/2024 10:30 AM EST Office Visit Weight [place] [phone] Marialuisa Peres MD [facility] [place] [address] documented as of this encounter Procedures Procedure Name Priority Date/Time Associated Diagnosis Comments CARDIAC CATHETERIZATION Routine 11/06/19 10:30 AM EST Chest pain, unspecified type EKG 12-LEAD Routine 10/25/2017 1:41 PM EST Chest pain, unspecified type documented in this encounter Results * CARDIAC CATHETERIZATION (11/06/2017 10:30 AM EST) Anatomical Region Laterality Modality Other Narrative 11/06/2017 10:42 AM EST ?[facility] ? Cardiac Catheterization/Intervention Report ? Patient Name: Agatha Yi ? Procedure Date: 11/06/2017 ? A #: [id number] ? Primary Physician: Kaya, Michelet Rinaldi ? Case #: [id number] ? File Name: [id number] ? Catheterization Order Number: [id number] ? [facility] ? Final Report [place], [place] ? Patient Name: ? Agatha L. Glodgett ?ID#: ?[id number] ? : ?1960 ? Procedure Date: ? November 06, 2017 ?Case #: ? [id number] ? Room: ? 1 ? Case Physician: [...] unlikely to be ischemic (w/i 14 ?days). [place] [employer] angina class was III. This [...] angiography and left ?heart catheterization. ? Michelet Kirkpatrick, M.D. ? Electronically Signed by: Michelet Kirkpatrick, M.D. ? Report Finalized: 11/06/2017 ??10:39 ? Procedure Note Michelet Kirkpatrick MD - 11/06/2017 [facility] Cardiac Catheterization/Intervention Report Patient Name: Agatha Yi Procedure Date: 11/06/2017 A #: [id number] Primary Physician: Michelet Kirkpatrick Case #: [id number] File Name: [id number] Catheterization Order Number: [id number] [facility] FinalReport [place], [place] Patient Name: Aagtha Yi ID#:[id number] :1960 Procedure Date: November 06, 2017 Case [...] unlikely to be ischemic (w/i 14 days). [place] [employer] angina class was III. Thispatient [...] (Bezet) 421 ms MUSE SYSTEM Calculated P [place] 28 degrees MUSE SYSTEM Calculated R [place] -32 degrees MUSE SYSTEM Calculated T [place] 19 degrees MUSE SYSTEM INTERPRETATION Normal sinus rhythm Left axis deviation Nonspecific ST and T wave abnormality Abnormal ECG No previous ECGs available Confirmed by MD CARMEL, ERROL ([id number]) on 10/26/2017 3:05:51 PM MUSE SYSTEM 10/25/2017 1:41 PM EST 10/26/2017 3:05 PM EST Ede Naranjo MD ECG ORDERABLES MUSE SYSTEM documented in this encounter Visit Diagnoses Diagnosis Chest pain, unspecified type Essential hypertension Unspecified essential hypertension MOISES (obstructive sleep apnea) Obstructive sleep apnea (adult) (pediatric) Chest pain, unspecified type documented in this encounter Care Teams Commercial Sales Representative Relationship Specialty Start Date End Date Kerry Villalobos APRN [address] [place] [address] [place] [address] PCP - General 03/08/12 10/29/17 documented as of this encounter
--- OUTSIDE RECORDS SUMMARY | 2024-06-27 17:03 | XMS_ITS | Encounter Summary ---
Author Organization [facility] [place] [address] Care Team Providers Care Client Sales And Service Officer Name Role Phone Jennifer Gallagher JU Primary Care Provider + Encounter Details Date Type Department Care Team (Latest Contact Info) Description 08/06/2020 11:06 PM EST - 08/06/2020 11:59 PM [facility] [place] [address] Discharge Disposition: Home Social History Tobacco Use [...] mouth daily. 04/11/2021 mometasone (NASONEX) 50 mcg/actuation [place], Non-Aerosol 2 sprays by Nasal route daily. [...] AM EDT Office Visit Cardiology at [address] [phone] Cody Martinez MD [facility] [place] [address] 10/22/2024 10:30 AM EST Office Visit [place] [phone] Marialuisa Peres MD [facility] [place] [address] documented as of this encounter Procedures Procedure Name Priority Date/Time Associated Diagnosis Comments COVID-19 PCR Routine 08/06/2020 9:54 AM EST documented in this encounter Results * COVID-19 PCR (08/06/2020 9:54 AM EST) SARS-CoV-2 RNA Not Detected Not Detected [facility] Comment: This result should be interpreted [...] diagnosis of COVID-19 is performed using the [employer] Alinity m SARS-CoV-2 Assay as authorized by the FDA Emergency Use Authorization (EUA). This EUA assay is intended for In-vitro Diagnostic (IVD) use with respiratory specimens such as nasopharyngeal swabs collected from individuals during the acute phase of infection. This assay is performed based on the instructions for use provided by [employer] and additional guidance provided by CDC and FDA. Testing is performed in the [facility] Laboratory within the Department of Pathology and Laboratory Medicine at [facility], certified under the Clinical Laboratory Improvement [...] fact sheets at the following FDA website: https://www.fda.gov/medical-devices/xezhltmntry-nxcyztl-4630-retov-56-bqkwimttf- use-a fwcyjtzmzqhya-aadsokz-uixvzsn/mcxus-ioaenunmhuz-fydz SARS-CoV-2 RNA Source Nasal [facility] Specimen from nose (specimen) Other / Unknown 08/06/2020 9:54 AM EST 08/07/2020 3:47 AM EST Narrative Resulting Agency Comment Spec In Lab Coy Perez MD MOLECULAR ORDERABLES [facility] [place] [address] documented in this encounter Visit Diagnoses Not on filedocumented in this encounter Care Teams Client Sales And Service Officer Relationship Specialty Start Date End Date Jennifer Gallagher APRN [address] [place] [address] ISAAK [address]ISWAS [address] [place] [address] PCP - General Family Medicine 10/30/17 01/28/21 documented as of this encounter
--- OUTSIDE RECORDS SUMMARY | 2024-06-27 17:03 | XMS_ITS | Encounter Summary ---
Author Organization [facility] Boris [place] [address] Care Team Providers Care Whipped Topping Mixer Name Role Phone Kerry Ascencio Primary Care Provider + Encounter Details Date Type Department Care Team (Late st Contact Info) Description 08/30/2021 Ancillary Procedure Radiology Library at [facility] [address] [place] [address] Kerry Ascencio PA [address] [place] [address] [address] [place], [place] [address] Social History Tobacco Use Types Packs/Day Years [...] AM EDT Office Visit Cardiology at [address] [place] [phone] Cody Martinez MD [facility] [address] [place] [address] 10/22/2024 10:30 AM EST Office Visit [place] [address] Marialuisa Peres MD [facility] [place] [address] documented as of this encounter Procedures Procedure Name Priority Date/Time Associated Diagnosis Comments FILM LIBRARY STORAGE ONLY CT CHEST Routine 08/30/2021 12:00 AM EST documented in this encounter Results * Film Library- Storage Only CT Chest (08/30/2021 12:00 AM EST) Narrative [facility]NOTE 2] - 10/20/2021 11:33 AM EST This exam is auto-finalizing. It's purpose is for storage only. Kerry MILLS IMFidelina FILM LIBRARY ORDERABLES [place], [place] documented in this encounter Visit Diagnoses Not on filedocumented in this encounter Care Teams Whipped Topping Mixer Relationship Specialty Start Date End Date Kerry Ascencio PA [address] [place] [address] [place] [address] PCP - General Internal Medicine 01/29/21 documented as of this encounter
--- OUTSIDE RECORDS SUMMARY | 2024-06-27 17:03 | XMS_ITS | Encounter Summary ---
Author Organization [facility] Address [facility] [place] [address] Care Team Providers Care Glass Blowing Lathe Operator Name Role Phone Kerry Ascencio Primary Care Provider + Encounter Details Date Type Department Care Team (Latest Contact Info) Description 08/31/2021 11:40 AM EST Ext Surgery or Single Event [facility] [address] [place] [address] Cortez Cleary MD [facility] [place] [address] Chest pain, atypical Social History Tobacco Use [...] Test- Final Report Agatha Yi : 1960 [facility] Referring: Jas Indication: atypical cp Date: [...] AM EDT Office Visit Cardiology at [address] [phone] Cody Martinez MD [facility] [place] [address] 10/22/2024 10:30 AM EST Office Visit [place] [phone] Marialuisa Peres MD [facility] [place] [address] documented as of this encounter Procedures Procedure Name Priority Date/Time Associated Diagnosis Comments ECG SCAN 08/31/2021 12:00 AM EST documented in this encounter Results * SCAN DOC: ECG (08/31/2021 12:00 AM EST) Unknown MEDIA MGR SCAN EXT O RDR/RSLT documented in this encounter Visit Diagnoses Diagnosis Chest pain, atypical Other chest pain documented in this encounter Care Teams Glass Blowing Lathe Operator Relationship Specialty Start Date End Date Kerry Ascencio PA [address] [place] [address] [place] [address] PCP - General Internal Medicine 01/29/21 documented as of this encounter
--- OUTSIDE RECORDS SUMMARY | 2024-06-27 17:03 | XMS_ITS | Encounter Summary ---
[place] [address] Care Team Providers Care Manager Wound Name Role Phone Jennifer Gallagher APRN Primary Care Provider + Reason for Visit * Reason Onset Date Comments Medication Reaction 10/29/2017 Encounter Details Date Type Department Care Team (Late st Contact Info) Description 10/29/2017 Telephone Cardiology at [address] [phone] Negrita Amaro, sleeve machine tender Reaction Social History Tobacco Use Types Packs/Day [...] AM EDT Office Visit Cardiology at [address] [phone] Cody Martinez MD [facility] [place] [address] 10/22/2024 10:30 AM EST Office Visit [place] [phone] Marialuisa Peres MD [facility] [place] [address] documented as of this encounter Visit Diagnoses Not on filedocumented in this encounter Care Teams Manager Wound Relationship Specialty Start Date End Date Jennifer Gallagher APRN [address] [place] [address] [address] [place] [address] PCP - General Family Medicine 10/30/17 01/28/21 documented as of this encounter
--- OUTSIDE RECORDS SUMMARY | 2024-06-27 17:03 | XMS_ITS | Encounter Summary ---
Author Organization [facility] Address [facility] [place] [address] Care Team Providers Care Passenger Service Agent Name Role Phone Kerry Ascencio Primary Care Provider + Encounter Details Date Type Department Care Team (Late st Contact Info) Description 09/14/2021 Orders Only Cardiology at [address] [phone] Nerissa Pimentel APRN [facility] [address] ASCVD (arteriosclerotic cardiovascular disease) (Primary Dx) Social [...] AM EDT Office Visit Cardiology at [address] [phone] Cody Martinez MD [facility] [address] 10/22/2024 10:30 AM EST Office Visit [place] [address] Marialuisa Peres MD [facility] [place] [address] documented as of this encounter Visit Diagnoses Diagnosis ASCVD (arteriosclerotic cardiovascular disease)- Primary Unspecified cardiovascular disease documented in this encounter Care Teams Passenger Service Agent Relationship Specialty Start Date End Date Kerry Ascencio PA [address] [place] [address] [place] [address] PCP - General Internal Medicine 01/29/21 documented as of this encounter
--- OUTSIDE RECORDS SUMMARY | 2024-06-27 17:03 | XMS_ITS | Encounter Summary ---
Author Organization [facility] [place] [address] Care Team Providers Care Juice Packaging Machines Setter Name Role Phone Jennifer Gallagher JU Primary Care Provider + Encounter Details Date Type Department Care Team (Late st Contact Info) Description 11/11/2020 Ancillary Procedure Radiology Library at [facility] [place] [address] Kerry Ascencio PA [address] [place] [address] [place], [place] [id number] Social History Tobacco Use Types Packs/Day Years [...] AM EDT Office Visit Cardiology at [address] [phone] Cody Martinez MD [facility] [place] [address] 10/22/2024 10:30 AM EST Office Visit [place] [address] Marialuisa Peres MD [facility] [place] [address] documented as of this encounter Procedures Procedure Name Priority Date/Time Associated Diagnosis Comments FILM LIBRARY STORAGE ONLY MR SHOULDER Routine 11/11/2020 12:00 AM EST documented in this encounter Results * Film Library- Storage Only MR Shoulder (11/11/2020 12:00 AM EST) Narrative [facility] - 08/23/2023 4:28 PM EST This exam is auto-finalizing. It's purpose is for storage only. Kerry MILLS IMFidelina FILM LIBRARY ORDERABLES [place], [place] documented in this encounter Visit Diagnoses Not on filedocumented in this encounter Care Teams Juice Packaging Machines Setter Relationship Specialty Start Date End Date Jennifer Gallagher APRN [address] [place] [address] [address] [place] [address] PCP - General Family Medicine 10/30/17 01/28/21 documented as of this encounter
--- OUTSIDE RECORDS SUMMARY | 2024-06-27 17:03 | XMS_ITS | Encounter Summary ---
Author Organization [facility] Address [facility] [place] [address] Care Team Providers Care Sap Portal Developer Name Role Phone Jennifer Gallagher JU Primary Care Provider + Encounter Details Date Type Department Care Team (Late st Contact Info) Description 02/02/2020 Telephone Cardiology at [address] [phone] Roseline Esquivel Social History Tobacco Use Types [...] AM EDT Office Visit Cardiology at [address] [phone] Cody Martinez MD [facility] [address] 10/22/2024 10:30 AM EST Office Visit [place] [phone] Marialuisa Peres MD [facility] [address] documented as of this encounter Visit Diagnoses Not on filedocumented in this encounter Care Teams Sap Portal Developer Relationship Specialty Start Date End Date Jennifer Gallagher APRN [address] [place] [address] , [facility] 1 [place] [address] PCP - General Family Medicine 10/30/17 01/28/21 documented as of this encounter
--- OUTSIDE RECORDS SUMMARY | 2024-06-27 17:03 | XMS_ITS | Encounter Summary ---
Author Organization [facility] [place] [address] Care Team Providers Care Operating System Designer Name Role Phone Jennifer Gallagher JU Primary Care Provider + Encounter Details Date Type Department Care Team (Late st Contact Info) Description 09/09/2019 Ancillary Procedure Radiology Library at [facility] [place] [address] Kerry Ascencio PA [address] [place] [address] [place], [place] [id number] Social History Tobacco Use Types Packs/Day Years [...] AM EDT Office Visit Cardiology at [address] [phone] Cody Martinez MD [facility] [place] [address] 10/22/2024 10:30 AM EST Office Visit [place] [address] Marialuisa Peres MD [facility] [place] [address] documented as of this encounter Procedures Procedure Name Priority Date/Time Associated Diagnosis Comments FILM LIBRARY STORAGE ONLY MR SHOULDER Routine 09/09/2019 12:00 AM EST documented in this encounter Results * Film Library- Storage Only MR Shoulder (09/09/2019 12:00 AM EST) Narrative [facility] - 08/23/2023 4:22 PM EST This exam is auto-finalizing. It's purpose is for storage only. Kerry MILLS IMFidelina FILM LIBRARY ORDERABLES [place], [place] documented in this encounter Visit Diagnoses Not on filedocumented in this encounter Care Teams Operating System Designer Relationship Specialty Start Date End Date Jennifer Gallagher APRN [address] [place] [address] [address] [place] [address] PCP - General Family Medicine 10/30/17 01/28/21 documented as of this encounter
--- OUTSIDE RECORDS SUMMARY | 2024-06-27 17:04 | XMS_ITS | Encounter Summary ---
Author Organization [facility] Address [facility] [place] [address] Care Team Providers Care Dough Cutter Name Role Phone Kerry Villalobos APRN Primary Care Provider +1 -[phone] Encounter Details Date Type Department Care Team (Late st Contact Info) Description 10/01/2012 Ancillary Procedure Radiology Library at [facility] [place] [phone] Kerry Ascencio PA [address] [place] [address] [place], [place] [address] Social History Tobacco Use Types Packs/Day Years [...] AM EDT Office Visit Cardiology at [address] [phone] Cody Martinez MD [facility] [place] [address] 10/22/2024 10:30 AM EST Office Visit Weight [place] [address] Marialuisa Peres MD [facility] [place] [address] documented as of this encounter Procedures Procedure Name Priority Date/Time Associated Diagnosis Comments FILM LIBRARY STORAGE ONLY MAMMO Routine 10/01/2012 12:00 AM EST documented in this encounter Results * Film Library- Storage Only Mammo (10/01/2012 12:00 AM EST) Narrative [facility] - 12/29/2021 9:54 AM EDT This exam is auto-finalizing. It's purpose is for storage only. Kerry MILLS IMFidelina FILM LIBRARY ORDERABLES [place], [place] documented in this encounter Visit Diagnoses Not on filedocumented in this encounter Care Teams Dough Cutter Relationship Specialty Start Date End Date Kerry Villalobos APRN [address] [place] [address] JENI MUNOZ [address] PCP - General 03/08/12 10/29/17 documented as of this encounter
--- OUTSIDE RECORDS SUMMARY | 2024-06-27 17:04 | XMS_ITS | Encounter Summary ---
Author Organization [facility] Address [facility] [place] [address] Care Team Providers Care Elementary Ell Teacher Name Role Phone Kerry Villalobos APRN Primary Care Provider +1 [phone] Encounter Details Date Type Department Care Team (Late st Contact Info) Description 10/26/2014 Ancillary Procedure Radiology Library at [facility] [place] [phone] Kerry Ascencio PA [address] [place] [address] [place], [place] [address] Social History Tobacco Use Types Packs/Day Years [...] AM EDT Office Visit Cardiology at [address] [phone] Cody Martinez MD [facility] [place] [address] 10/22/2024 10:30 AM EST Office Visit [place] [address] Marialuisa Peres MD [facility] [place] [address] documented as of this encounter Procedures Procedure Name Priority Date/Time Associated Diagnosis Comments FILM LIBRARY STORAGE ONLY MAMMO Routine 10/26/2014 12:00 AM EST documented in this encounter Results * Film Library- Storage Only Mammo (10/26/2014 12:00 AM EST) Narrative [facility] - 12/29/2021 9:52 AM EDT This exam is auto-finalizing. It's purpose is for storage only. Kerry MILLS IMFidelina FILM LIBRARY ORDERABLES [place], [place] documented in this encounter Visit Diagnoses Not on filedocumented in this encounter Care Teams Elementary Ell Teacher Relationship Specialty Start Date End Date Kerry Villalobos APRN [address] [place] [address] JENI MUNOZ [address] PCP - General 03/08/12 10/29/17 documented as of this encounter
--- OUTSIDE RECORDS SUMMARY | 2024-06-27 17:04 | XMS_ITS | Encounter Summary ---
Author Organization [facility] [place] [address] Care Team Providers Care Brass Sorter Name Role Phone Kerry Villalobos APRN Primary Care Provider [phone] [phone] Encounter Details Date Type Department Care Team (Late st Contact Info) Description 10/04/2012 12:05 AM EST Ancillary Procedure Radiology Library at [facility] [place] [address] Kerry Ascencio PA [address] [place] [address] [place], [place] [address] Social History Tobacco Use Types Packs/Day Years [...] AM EDT Office Visit Cardiology at [address] [phone] Cody Martinez MD [facility] [address] [place] [address] 10/22/2024 10:30 AM EST Office Visit Weight [place] [phone] Marialuisa Peres MD [facility] [place] [address] documented as of this encounter Procedures Procedure Name Priority Date/Time Associated Diagnosis Comments FILM LIBRARY-STORAGE ONLY US BREAST Routine 10/04/2012 12:05 AM EST documented in this encounter Results * Film Library Storage Only US Breast (10/04/2012 12:05 AM EST) Narrative [facility] - 12/29/2021 12:10 PM EDT This exam is auto-finalizing. It's purpose is for storage only. Kerry MILLS IMFidelina FILM LIBRARY ORDERABLES [place], [place] documented in this encounter Visit Diagnoses Not on filedocumented in this encounter Care Teams Brass Sorter Relationship Specialty Start Date End Date Kerry Villalobos APRN [address] [place] [address] [place] [address] PCP - General 03/08/12 10/29/17 documented as of this encounter
--- OUTSIDE RECORDS SUMMARY | 2024-06-27 17:04 | XMS_ITS | Encounter Summary ---
Author Organization [facility] Address [facility] [place] [address] Care Team Providers Care Reduction Furnace Operator Helper Name Role Phone Unavailable Primary Care Provider Unavailabl e Encounter Details Date Type Department Care Team (Late st Contact Info) Description 10/23/2007 Ancillary Procedure Radiology Library at [facility] [place] [phone] Kerry Ascencio PA [address] [place] [address] [place] [address] Social History Tobacco Use Types Packs/Day Years [...] AM EDT Office Visit Cardiology at [address] [phone] Cody Martinez MD [facility] [place] [address] 10/22/2024 10:30 AM EST Office Visit Weight [place] [address] Marialuisa Peres MD [facility] [place] [address] documented as of this encounter Procedures Procedure Name Priority Date/Time Associated Diagnosis Comments FILM LIBRARY STORAGE ONLY MAMMO Routine 10/23/2007 12:00 AM EST documented in this encounter Results * Film Library- Storage Only Mammo (10/23/2007 12:00 AM EST) Narrative [facility] - 12/29/2021 9:56 AM EDT This exam is auto-finalizing. It's purpose is for storage only. Kerry MILLS IMFidelina FILM LIBRARY ORDERABLES Performing Organization Address City/State/[facility] Co de Phone Number [place], [place] documented in this encounter Visit Diagnoses Not on filedocumented in this encounter
--- OUTSIDE RECORDS SUMMARY | 2024-06-27 17:04 | XMS_ITS | Encounter Summary ---
Author Organization [facility] Address [facility] [place] [address] Care Team Providers Care Food Stand Manager Name Role Phone Kerry Villalobos APRN Primary Care Provider [phone] [phone] Encounter Details Date Type Department Care Team (Late st Contact Info) Description 04/03/2013 Ancillary Procedure Radiology Library at [facility] [place] [phone] Kerry Ascencio PA [address] [place] [address] [place], [place] [address] Social History Tobacco Use Types Packs/Day Years [...] AM EDT Office Visit Cardiology at [address] [phone] Cody Martienz MD [facility] [place] [address] 10/22/2024 10:30 AM EST Office Visit [place] [address] Marialuisa Peres MD [facility] [place] [address] documented as of this encounter Procedures Procedure Name Priority Date/Time Associated Diagnosis Comments FILM LIBRARY STORAGE ONLY MAMMO Routine 04/03/2013 12:00 AM EDT documented in this encounter Results * Film Library- Storage Only Mammo (04/03/2013 12:00 AM EDT) Narrative [facility] - 12/29/2021 9:53 AM EDT This exam is auto-finalizing. It's purpose is for storage only. Kerry MILLS IMFidelina FILM LIBRARY ORDERABLES [place], [place] documented in this encounter Visit Diagnoses Not on filedocumented in this encounter Care Teams Food Stand Manager Relationship Specialty Start Date End Date Kerry Villalobos APRN [address] [place] [address] [place] [address] PCP - General 03/08/12 10/29/17 documented as of this encounter
--- OUTSIDE RECORDS SUMMARY | 2024-06-27 17:04 | XMS_ITS | Encounter Summary ---
Author Organization [facility] Address [facility] [place] [address] Care Team Providers Care Auditing Control Clerk Name Role Phone VillalobosKerry bowers JU Primary Care Provider [phone] [phone] Encounter Details Date Type Department Care Team (Latest Contact Info) Description 05/04/2017 - 05/04/2017 11:59 PM EDT Hospital Encounter Radiology Library at [facility] [place] [address] Karri Méndez MD [facility] [place] [address] Discharge Disposition: Home Social History Tobacco Use [...] 5 09/08/2016 10/25/2017 mometasone (NASONEX) 50 mcg/actuation Bailey, Non-Aerosol 2 sprays by Nasal route daily. [...] 9:40 AM EDT Office Visit Cardiology at [address] [phone] Cody Martinez MD [facility] [place] [address] 10/22/2024 10:30 AM EST Office Visit [place] [phone] Marialuisa Peres MD [facility] [place] [address] documented as of this encounter Procedures Procedure Name Priority Date/Time Associated Diagnosis Comments FILM LIBRARY STORAGE ONLY DX CHEST Routine 05/04/2017 12:00 AM EDT documented in this encounter Results * Film Library- Storage Only DX Chest (05/04/2017 12:00 AM EDT) Narrative [facility] - 09/13/2017 5:18 PM EST This exam is for storage only and is auto-finalizing. Karri Méndez MD IMG FILM LIBRARY ORD ERABLES [place], [place] documented in this encounter Visit Diagnoses Not on filedocumented in this encounter Care Teams Auditing Control Clerk Relationship Specialty Start Date End Date Kerry Villalobos APRN [address] [place] [address] [place] [address] PCP - General 03/08/12 10/29/17 documented as of this encounter
--- OUTSIDE RECORDS SUMMARY | 2024-06-27 17:04 | XMS_ITS | Encounter Summary ---
Author Organization [facility] Address [facility] [place] [address] Care Team Providers Care Meat Loiner Name Role Phone Kerry Villalobos APRN Primary Care Provider [phone] Encounter Details Date Type Department Care Team (Late st Contact Info) Description 10/04/2012 Ancillary Procedure Radiology Library at [facility] [place] [place] [phone] Kerry Ascencio PA [address] [place] [address] [place], [place] [address] Social History Tobacco Use Types Packs/Day Years [...] 9:40 AM EDT Office Visit Cardiology at [address] [phone] Cody Martinez MD [facility] [place] [address] 10/22/2024 10:30 AM EST Office Visit [place] [address] Marialuisa Peres MD [facility] [place] [address] documented as of this encounter Procedures Procedure Name Priority Date/Time Associated Diagnosis Comments FILM LIBRARY STORAGE ONLY MAMMO Routine 10/04/2012 12:00 AM EST documented in this encounter Results * Film Library- Storage Only Mammo (10/04/2012 12:00 AM EST) Narrative [facility] - 12/29/2021 9:54 AM EDT This exam is auto-finalizing. It's purpose is for storage only. Kerry MILLS IMFidelina FILM LIBRARY ORDERABLES [place], [place] documented in this encounter Visit Diagnoses Not on filedocumented in this encounter Care Teams Meat Loiner Relationship Specialty Start Date End Date Kerry Villalobos APRN [address] [place] [address] JENI MUNOZ [address] PCP - General 03/08/12 10/29/17 documented as of this encounter
--- OUTSIDE RECORDS SUMMARY | 2024-06-27 17:04 | XMS_ITS | Encounter Summary ---
Author Organization [facility] Address [facility] [place] [address] Care Team Providers Care Handbag Finisher Name Role Phone Aristeo Collins MD Primary Care Provider [phone] Encounter Details Date Type Department Care Team (Late st Contact Info) Description 09/28/2011 Ancillary Procedure Radiology Library at [facility] [place] [address] Kerry Ascencio PA [address] [place] [address] [phone] Social History Tobacco Use Types Packs/Day Years [...] 9:40 AM EDT Office Visit Cardiology at [address] [address] Cody Martinez MD [facility] [place] [address] 10/22/2024 10:30 AM EST Office Visit Weight [place] [phone] Marialuisa Peres MD [facility] [place] [address] documented as of this encounter Procedures Procedure Name Priority Date/Time Associated Diagnosis Comments FILM LIBRARY STORAGE ONLY MAMMO Routine 09/28/2011 12:00 AM EST documented in this encounter Results * Film Library- Storage Only Mammo (09/28/2011 12:00 AM EST) Narrative [facility] - 12/29/2021 9:55 AM EDT This exam is auto-finalizing. It's purpose is for storage only. Kerry MILLS IMFidelina FILM LIBRARY ORDERABLES [place], [place] documented in this encounter Visit Diagnoses Not on filedocumented in this encounter Care Teams Handbag Finisher Relationship Specialty Start Date End Date Aristeo Collins MD [address] [place] [address] JENI MUNOZ [address] PCP - General 08/09/10 03/07/12 documented as of this encounter
--- OUTSIDE RECORDS SUMMARY | 2024-06-27 17:04 | XMS_ITS | Encounter Summary ---
Author Organization [facility] Address [facility] [place] [address] Care Team Providers Care Ocular Care Technician Name Role Phone Kerry Villalobos APRN Primary Care Provider [phone] Reason for Visit * Reason Comments Chest Pain Encounter Details Date Type Department Care Team (Late st Contact Info) Description 03/12/2012 9:45 AM EDT Office Visit [address] [address] Fabian Dunn MD [facility] [place] [address] Chest pain (Primary Dx) Social History Tobacco [...] AM EDT Office Visit Cardiology at [address] [phone] Cody Martinez MD [facility] [place] [address] 10/22/2024 10:30 AM EST Office Visit Weight [place] [address] Marialuisa Peres MD [facility] [place] [address] documented as of this encounter Visit Diagnoses Diagnosis Chest pain- Primary Chest pain, unspecified documented in this encounter Care Teams Ocular Care Technician Relationship Specialty Start Date End Date Kerry Villalobos APRN [address] [place] [address] [place] [id number] PCP - General 03/08/12 10/29/17 documented as of this encounter
--- OUTSIDE RECORDS SUMMARY | 2024-06-27 17:04 | XMS_ITS | Encounter Summary ---
Author Organization [facility] Address [facility] [place] [address] Care Team Providers Care Wheat Farmer Name Role Phone Kerry Villalobos APRN Primary Care Provider [phone] Encounter Details Date Type Department Care Team (Late st Contact Info) Description 10/01/2013 Ancillary Procedure Radiology Library at [facility] [place] [phone] Kerry Ascencio PA [address] [place] [address] [place], [place] [phone] Social History Tobacco Use Types Packs/Day Years [...] 9:40 AM EDT Office Visit Cardiology at [address] [phone] Cody Martinez MD [facility] [place] [address] 10/22/2024 10:30 AM EST Office Visit [place] [address] Marialuisa Peres MD [facility] [place] [address] documented as of this encounter Procedures Procedure Name Priority Date/Time Associated Diagnosis Comments FILM LIBRARY STORAGE ONLY MAMMO Routine 10/01/2013 12:00 AM EST documented in this encounter Results * Film Library- Storage Only Mammo (10/01/2013 12:00 AM EST) Narrative [facility] - 12/29/2021 9:53 AM EDT This exam is auto-finalizing. It's purpose is for storage only. Kerry MILLS IMFidelina FILM LIBRARY ORDERABLES [place], [place] documented in this encounter Visit Diagnoses Not on filedocumented in this encounter Care Teams Wheat Farmer Relationship Specialty Start Date End Date Kerry Villalobos APRN [address] [place] [address] JENI MUNOZ [address] PCP - General 03/08/12 10/29/17 documented as of this encounter
--- OUTSIDE RECORDS SUMMARY | 2024-06-27 17:04 | XMS_ITS | Encounter Summary ---
Author Organization [facility] [place] [address] Care Team Providers Care Collision Repair Technician Name Role Phone Kerry Villalobos APRN Primary Care Provider [phone] Encounter Details Date Type Department Care Team (Late st Contact Info) Description 09/08/2016 [place] [phone] Ofelia Kim, CONTINUOUS PROCESS ROTARY DRUM TANNER Social History Tobacco Use Types Packs/Day Years [...] AM EDT Office Visit Cardiology at [address] [address] Cody Martinez MD [facility] [place] [address] 10/22/2024 10:30 AM EST Office Visit [place] [phone] Marialuisa Peres MD [facility] [place] [address] documented as of this encounter Visit Diagnoses Not on filedocumented in this encounter Care Teams Collision Repair Technician Relationship Specialty Start Date End Date Kerry Villalobos APRN [address] [place] [address] [place] [address] PCP - General 03/08/12 10/29/17 documented as of this encounter
--- OUTSIDE RECORDS SUMMARY | 2024-06-27 17:04 | XMS_ITS | Encounter Summary ---
Author Organization [facility] Address [facility] [place] [address] Care Team Providers Care Program Director/Air Personality Name Role Phone Kerry Villalobos APRN Primary Care Provider [phone] Encounter Details Date Type Department Care Team (Late st Contact Info) Description 11/23/2016 Ancillary Procedure Radiology Library at [facility] [place] [phone] Kerry Ascencio PA [address] [place] [address] [place], [place] [address] Social History Tobacco Use Types Packs/Day Years [...] AM EDT Office Visit Cardiology at [address] [phone] Cody Martinez MD [facility] [place] [address] 10/22/2024 10:30 AM EST Office Visit [place] [address] Marialuisa Peres MD [facility] [place] [address] documented as of this encounter Procedures Procedure Name Priority Date/Time Associated Diagnosis Comments FILM LIBRARY STORAGE ONLY MAMMO Routine 11/23/2016 12:00 AM EST documented in this encounter Results * Film Library- Storage Only Mammo (11/23/2016 12:00 AM EST) Narrative [facility] - 12/29/2021 9:52 AM EDT This exam is auto-finalizing. It's purpose is for storage only. Kerry MILLS IMFidelina FILM LIBRARY ORDERABLES [place], [place] documented in this encounter Visit Diagnoses Not on filedocumented in this encounter Care Teams Program Director/Air Personality Relationship Specialty Start Date End Date Kerry Villalobos APRN [address] [place] [address] [place] [address] PCP - General 03/08/12 10/29/17 documented as of this encounter
--- OUTSIDE RECORDS SUMMARY | 2024-06-27 17:04 | XMS_ITS | Encounter Summary ---
Author Organization [facility] Address [facility] [place] [address] Care Team Providers Care Computer Project Manager Name Role Phone Kerry Villalobos APRN Primary Care Provider [phone] Encounter Details Date Type Department Care Team (Late st Contact Info) Description 11/11/2015 Ancillary Procedure Radiology Library at [facility] [place] [phone] Kerry Ascencio PA [address] [place] [address] [place], [place] [address] Social History Tobacco Use Types Packs/Day Years [...] AM EDT Office Visit Cardiology at [address] [phone] Cody Martinez MD [facility] [place] [address] 10/22/2024 10:30 AM EST Office Visit [place] [address] Marialuisa Peres MD [facility] [place] [address] documented as of this encounter Procedures Procedure Name Priority Date/Time Associated Diagnosis Comments FILM LIBRARY STORAGE ONLY MAMMO Routine 11/11/2015 12:00 AM EST documented in this encounter Results * Film Library- Storage Only Mammo (11/11/2015 12:00 AM EST) Narrative [facility] - 12/29/2021 9:52 AM EDT This exam is auto-finalizing. It's purpose is for storage only. Kerry MILLS IMFidelina FILM LIBRARY ORDERABLES [place], [place] documented in this encounter Visit Diagnoses Not on filedocumented in this encounter Care Teams Computer Project Manager Relationship Specialty Start Date End Date Kerry Villalobos APRN [address] [place] [address] JENI MUNOZ [address] PCP - General 03/08/12 10/29/17 documented as of this encounter
--- OUTSIDE RECORDS SUMMARY | 2024-06-27 17:04 | XMS_ITS | Encounter Summary ---
Author Organization [facility] Address [facility] [place] [address] Care Team Providers Care Health Care Marketing Manager Name Role Phone Kerry Villalobos APRN Primary Care Provider [phone] Reason for Visit * Reason Comments Allergies * Consultation (Routine) - Closed Specialty Diagnoses / Procedures Referred By Clari dickey Referred To Contact Allergy Diagnoses chronic allergic rhinitis Jennifer Gallagher APRN [address] [place] [address] ISAAK BISWAS [address] [place] [address] [facility] Allergy [address] [place] [phone] Referral ID Status Reason Start Date Expiration Date V isits Requested Visits Authorized [id number] Closed Consult, Test & Treat Connection Center 07/06/2016 07/06/2017 1 1 Encounter Details Date Type Department Care Team (Late st Contact Info) Description 08/18/2016 2:00 PM EST [place] [address] Kitty Cervantes MD [facility] DR [facility] [address] Food intolerance; Allergic rhinitis, unspecified [...] in this encounter Progress Notes * Kitty Crevantes MD - 08/18/2016 2:00 PM EST CC: [...] about for a long time. She saw [place] in the past and was positive [...] 12/16/2008 ??? Created by interface Tubal ligation 1975 Procedure Date: 12/16/2008 ??? Hysterectomy ??? Gallbladder [...] Saline (0, 4) Glycerine (3, 4) D. [place] (-), D. Pteronyssinus (-) Cat (-), Dog (-), Cockroach (-) AP Dog (-) Leighton Grass (-), Kentucky Delta (+), Orchard Grass (+), Gagan Grass (+), Bermuda (-) Long Branch (-), Christopher (-), Birch (-), Black Raritan (-), Five Points, Eastern Red (-), Elm (-) Divide (-), Maple (-), [place] (+), Dixon (-), Amboy (-), East. Dwight (-) Cocklebur (-), Mugwort (-), Pigweed (-), Ragweed, giant (-), Sheep Peyton (-), Plantain (-) Aspergillus Mix (-), Alternaria [...] FEV1/FVC 107% (No significant change with bronchodilator) MARIYA SPT: positive to tree nuts and ampicillin [...] AM EDT Office Visit Cardiology at [address] [phone] Cody Martinez MD [facility] [place] [address] 10/22/2024 10:30 AM EST Office Visit [place] [phone] Marialuisa Peres MD [facility] [place] [address] documented as of this encounter Procedures Procedure [...] classified documented in this encounter Care Teams Health Care Marketing Manager Relationship Specialty Start Date End Date Kerry Villalobos APRN [address] [place] [address] [place] [address] PCP - General 03/08/12 10/29/17 documented as of this encounter
--- OUTSIDE RECORDS SUMMARY | 2024-06-27 17:04 | XMS_ITS | Encounter Summary ---
Author Organization [facility] Address [facility] [place] [address] Care Team Providers Care Consumer Loan Processor Name Role Phone Kerry Ascencio Primary Care Provider + Encounter Details Date Type Department Care Team (Late st Contact Info) Description 07/14/2009 Orders Only Obstetrics [place] [phone] [facility] DR OBSTETRICS & [place] [address] Social History Tobacco Use Types Packs/Day Years [...] AM EDT Office Visit Cardiology at [address] [phone] [facility] [place] [address] 10/22/2024 10:30 AM EST Office Visit [place] [address] [facility] [place] [address] documented as of this encounter Procedures Procedure Name Priority Date/Time Associated Diagnosis Comments SURGICAL PATHOLOGY REPORT Routine 07/14/2009 2:39 PM EDT documented in this encounter Results * Surgical Pathology Report (07/14/2009 2:39 PM EDT) Pathologist [facility] Surgical Pathology Report [id number] ? Location: [facility]; [facility]; B The signing pathologist has (i) examined [...] fallopian tube ? identified. Sections/Processin g: ? Garbage Collector Driver sections are submitted as follows: ? (1-2) [...] CR-0 07/16/09 JLG 07/16/09 Verified by: ? Leonardo HODGES, Vu Morrison. ?Pathologist ?(Electronic Signature) The attending pathologist whose [...] on filedocumented in this encounter Care Teams Consumer Loan Processor Relationship Specialty Start Date End Date Kerry Ascencio PA [address] [place] [address] [place] [address] PCP - General Internal Medicine 01/29/21 documented as of this encounter
--- OUTSIDE RECORDS SUMMARY | 2024-06-27 17:04 | XMS_ITS | Encounter Summary ---
Author Organization [facility] Address [facility] [place] [address] Care Team Providers Care Compliance Nurse Name Role Phone Kerry Villalobos APRN Primary Care Provider [phone] Reason for Visit * Reason Onset Date Comments Medication Refill 08/30/2016 Encounter Details Date Type Department Care Team (Late st Contact Info) Description 08/30/2016 [place] [phone] [facility] DR [facility] [address] Social History Tobacco Use Types Packs/Day Years [...] AM EDT Office Visit Cardiology at [address] [phone] [facility] [place] [address] 10/22/2024 10:30 AM EST Office Visit Weight [place] [address] [facility] [place] [address] documented as of this encounter Visit Diagnoses Not on filedocumented in this encounter Care Teams Compliance Nurse Relationship Specialty Start Date End Date Kerry Villalobos APRN [address] [place] [address] [place] [address] PCP - General 03/08/12 10/29/17 documented as of this encounter
--- OUTSIDE RECORDS SUMMARY | 2024-06-27 17:04 | XMS_ITS | Encounter Summary ---
Author Organization [facility] Address [facility] [place] [address] Care Team Providers Care Blueprint Engineer Name Role Phone Kerry Villalobos APRN Primary Care Provider [phone] Reason for Visit * Reason Onset Date Comments Medication Refill 09/08/2016 Encounter Details Date Type Department Care Team (Late st Contact Info) Description 09/08/2016 Refill [place] [address] Kitty Cervantes MD [facility] DR [facility] [address] Chronic allergic rhinitis Social History Tobacco Use [...] AM EDT Office Visit Cardiology at [address] [address] Cody Martinez MD [facility] [place] [address] 10/22/2024 10:30 AM EST Office Visit Weight and [place]ness [place] [phone] Marialuisa Peres MD [facility] [place] [address] documented as of this encounter Visit Diagnoses Diagnosis Chronic allergic rhinitis Allergic rhinitis, cause unspecified documented in this encounter Care Teams Blueprint Engineer Relationship Specialty Start Date End Date Kerry Villalobos APRN [address] [place] [address] [place] [address] PCP - General 03/08/12 10/29/17 documented as of this encounter
--- OUTSIDE RECORDS SUMMARY | 2024-06-27 17:04 | XMS_ITS | Encounter Summary ---
Author Organization [facility] Address [facility] [place] [address] Care Team Providers Care Railroad Dispatcher Name Role Phone Unavailable Primary Care Provider Unavailabl e Encounter Details Date Type Department Care Team (Late st Contact Info) Description 10/14/2009 Ancillary Procedure Radiology Library at [facility] [place] [phone] Kerry Ascencio PA [address] [place] [address] [place] [address] Social History Tobacco Use Types Packs/Day Years [...] AM EDT Office Visit Cardiology at [address] [phone] Cody Martinez MD [facility] [place] [address] 10/22/2024 10:30 AM EST Office [place] [address] Marialuisa Peres MD [facility] [place] [address] documented as of this encounter Procedures Procedure Name Priority Date/Time Associated Diagnosis Comments FILM LIBRARY STORAGE ONLY MAMMO Routine 10/14/2009 12:00 AM EST documented in this encounter Results * Film Library- Storage Only Mammo (10/14/2009 12:00 AM EST) Narrative [facility] - 12/29/2021 9:55 AM EDT This exam is auto-finalizing. It's purpose is for storage only. Kerry MILLS IMFidelina FILM LIBRARY ORDERABLES Performing Organization Address City/State/[facility] Co de Phone Number [place], [place] documented in this encounter Visit Diagnoses Not on filedocumented in this encounter
--- OUTSIDE RECORDS SUMMARY | 2024-06-27 17:04 | XMS_ITS | Encounter Summary ---
Author Organization [facility] Address [facility] [place] [address] Care Team Providers Care Rcp Name Role Phone Aristeo Collins MD Primary Care Provider [phone] Encounter Details Date Type Department Care Team (Late st Contact Info) Description 09/29/2011 Ancillary Procedure Radiology Library at [facility] [place] [address] Kerry Ascencio PA [address] [place] [phone] Social History Tobacco Use Types Packs/Day Years [...] AM EDT Office Visit Cardiology at [address] [address] Cody Martinez MD [facility] [place] [address] 10/22/2024 10:30 AM EST Office Visit [place] [phone] Marialuisa Peres MD [facility] [place] [address] documented as of this encounter Procedures Procedure Name Priority Date/Time Associated Diagnosis Comments FILM LIBRARY STORAGE ONLY MAMMO Routine 09/29/2011 12:00 AM EST documented in this encounter Results * Film Library- Storage Only Mammo (09/29/2011 12:00 AM EST) Narrative [facility] - 12/29/2021 9:54 AM EDT This exam is auto-finalizing. It's purpose is for storage only. Kerry MILLS IMFidelina FILM LIBRARY ORDERABLES [employer], [place] documented in this encounter Visit Diagnoses Not on filedocumented in this encounter Care Teams Rcp Relationship Specialty Start Date End Date Aristeo Collins MD [address] [place] [address] JENI MUNOZ [address] PCP - General 08/09/10 03/07/12 documented as of this encounter
--- NOTE | 2024-06-27 17:11 | W.ED.GENAD ---
Discharge Plan Disposition Patient Disposition: Home Condition: Improving Discharge Details Chief Complaint: Chest Pain Clinical Impression: Chest pain Primary Care Provider: Kerry Ascencio ED Provider: Jerald Rodriguez Home Meds and New Rx's Prescriptions: No Action celecoxib [Celebrex] 100 mg capsule 100 mg PO BID diltiazem HCl 240 mg capsule,extended release 24 hr 240 mg PO DAILY fluticasone propionate [Flonase Allergy Relief] 50 mcg/actuation spray,suspension 1 spray intranasal BID Rx Instructions: administer into each nostril meclizine 12.5 MG tablet 25 mg PO TID PRN Patient Comments: prn rosuvastatin [Crestor] 20 MG tablet 40 mg PO DAILY aspirin 81 mg tablet,delayed release (DR/EC) 81 mg PO DAILY ibuprofen 800 mg tablet 800 mg PO TID Emgality Pen 120 mg/mL pen injector 120 mg subcut ONCE Qty: 1 11RF citalopram [Celexa] 10 mg tablet 30 mg PO DAILY Patient Comments: 10 mg tab and 20 mg tab total 30. levothyroxine 75 mcg tablet 175 mcg PO DAILY epinephrine 0.3 MG/SYR auto-injector 0.3 mg IJ PRN PRN (Reason: Anaphylaxis) Qty: 1 0RF mirabegron [Myrbetriq] 50 mg Tablet Extended Release 24 Hr 50 mg PO DAILY metformin 500 mg tablet extended release 24 hr 1,000 mg PO DAILY Patient Comments: TAKE ONE TABLET BY MOUTH EVERY DAY potassium citrate 10 mEq (1,080 mg) tablet extended release 10 meq PO BID Patient Comments: TAKE 1 TABLET BY MOUTH TWICE DAILY WITH FOOD cetirizine 10 mg Tablet 10 mg PO DAILY ezetimibe 10 mg tablet 10 mg PO DAILY Patient Comments: TAKE 1 TABLET BY MOUTH EVERY DAY Discharge Instructions Instructions: Chest Pain, Adult ED Additional Instructions: Please follow-up with your building dismantler as scheduled please follow-up with your primary care physician. Return to the emergency department for any worsening symptoms HPI General Date/Time Provider Initiated Documentation: 06/27/24 17:02. HPI Narrative: 64-year-old female presents with resolved chest pain beginning mid sternum radiating to left shoulder and back as well as neck earlier today, nonexertional, denies diaphoresis nausea vomiting shortness of breath presyncope or palpitations. Denies exogenous estrogen use leg pain leg swelling recent travel or recent immobilization. Denies history of cardiac stenting or open heart surgery. Takes a daily baby aspirin Related Data Home Medications ?Medication ?Instructions ?Recorded ?Confirmed meclizine 12.5 mg tablet 25 mg PO TID PRN 10/08/13 06/27/24 rosuvastatin 20 mg tablet (Crestor) 40 mg PO DAILY 10/08/13 06/27/24 epinephrine 0.3 mg/0.3 mL 0.3 mg (0.3 mL) IJ PRN PRN 07/21/16 06/27/24 injection, auto-injector Anaphylaxis ##1 cetirizine 10 mg tablet 10 mg PO DAILY 12/20/18 06/27/24 ezetimibe 10 mg tablet 10 mg PO DAILY 06/12/21 06/27/24 aspirin 81 mg tablet,delayed 81 mg PO DAILY 12/22/21 06/27/24 release diltiazem HCl 240 mg capsule,24 240 mg PO DAILY 01/09/23 06/27/24 hr,extended release mirabegron 50 mg tablet,extended 50 mg PO DAILY 01/09/23 06/27/24 release 24 hr (Myrbetriq) ibuprofen 800 mg tablet 800 mg PO TID 03/08/23 06/27/24 celecoxib 100 mg capsule (Celebrex) 100 mg PO BID 07/16/23 06/27/24 galcanezumab-gnlm 120 mg/mL 120 mg subcut ONCE #1 mL 11/29/23 06/27/24 subcutaneous pen injector (Emgality Pen) metformin 500 mg tablet,extended 1,000 mg PO DAILY 02/17/24 06/27/24 release 24 hr potassium citrate 10 mEq (1,080 10 meq PO BID 02/23/24 06/27/24 mg) tablet,extended release citalopram 10 mg tablet (Celexa) 30 mg PO DAILY 04/02/24 06/27/24 fluticasone propionate 50 1 spray intranasal BID 04/02/24 06/27/24 mcg/actuation nasal spray,suspension (Flonase Allergy Relief) levothyroxine 75 mcg tablet 175 mcg PO DAILY 04/02/24 06/27/24 Previous Rx's ?Medication ?Instructions ?Recorded epinephrine 0.3 mg/0.3 mL 0.3 mg (0.3 mL) IJ PRN PRN 07/21/16 injection, auto-injector Anaphylaxis ##1 galcanezumab-gnlm 120 mg/mL 120 mg subcut ONCE #1 mL 11/29/23 subcutaneous pen injector (Emgality Pen) Allergies Allergy/AdvReac Type Severity Reaction Status Date / Time tetrabenazine Allergy Severe RASH,HIVES Verified 06/27/24 16:52 amoxicillin Allergy Intermediate Skin Rash Verified 06/27/24 16:52 hydrocodone (From Vicodin) Allergy Intermediate PRURITIS Verified 06/27/24 16:52 morphine Allergy Intermediate ITCHY, SICK Verified 06/27/24 16:52 peanut Allergy Intermediate Anaphylaxsi Verified 06/27/24 16:52 s tree nut Allergy Intermediate Anaphylaxsi Verified 06/27/24 16:52 s chlorhexidine Allergy Mild Skin Rash Verified 06/27/24 16:52 adhesive AdvReac Intermediate RASH AND Verified 06/27/24 16:52 SWELLING alcohol (From Mastisol AdvReac Intermediate RASH Verified 06/27/24 16:52 Liquid Adhesive) gum mastic (From Mastisol AdvReac Intermediate RASH Verified 04/02/24 14:14 Liquid Adhesive) methyl salicylate (From AdvReac Intermediate RASH Verified 06/27/24 16:52 Mastisol Liquid Adhesive) storax (From Mastisol Liquid AdvReac Intermediate RASH Verified 06/27/24 16:52 Adhesive) benzoin AdvReac Mild Skin Rash Verified 06/27/24 16:52 cat dander AdvReac Mild WATERY EYES Verified 06/27/24 16:52 milk AdvReac Unknown Diarrhea Verified 06/27/24 16:52 pollen extracts AdvReac Unknown Itching Verified 06/27/24 16:52 dog dander AdvReac WATERY EYES Verified 06/27/24 16:52 RAW FRUIT Allergy Unknown Swelling/Ed Uncoded 06/27/24 16:52 kit DUST AdvReac Unknown itchy eyes Uncoded 06/27/24 16:52 General Stated Complaint: Chest Pain MANNIE: 3 Exam Narrative Exam Narrative: Alert oriented interactive Moist mucous membranes tolerating secretions Lungs clear bilaterally no wheezes rales or rhonchi Normal heart sounds no murmurs rubs or gallops Equal peripheral pulses strong radial warm well-perfused extremities Abdomen soft nontender nondistended no palpable mass No midline spinal tenderness step-off crepitus or deformity Alert oriented cranial nerves intact 5-5 strength upper and lower extremity sensation intact, no ataxia, normal speech No peripheral edema Course Vital Signs Vital signs: Vital Signs Temperature 36.2 C L 06/27/24 16:42 Pulse 69 06/27/24 16:42 Respiratory Rate 17 06/27/24 16:42 Blood Pressure 121/75 06/27/24 16:42 Pulse Oximetry 94 06/27/24 16:42 Temperature 36.2 C L 06/27/24 16:42 Temperature Source Oral 06/27/24 16:42 Pulse 69 06/27/24 16:42 Respiratory Rate 17 06/27/24 16:42 Respiratory Effort Normal, Non-Labored 06/27/24 16:54 Blood Pressure 121/75 06/27/24 16:42 Blood Pressure Position Sitting 06/27/24 16:42 Pulse Oximetry 94 06/27/24 16:42 Oxygen Delivery Method Room Air 06/27/24 16:42 Oxygen Flow Rate 0 06/27/24 16:42 Medical Decision Making 64-year-old female presents with resolved anterior chest pain rating to left shoulder neck and back without associate diaphoresis nausea vomiting shortness of breath presyncope or palpitations, no peripheral edema, no history of thromboembolic disease or coronary disease, patient is normotensive with strong equal radial pulses warm and perfused extremities no palpable abdominal mass no abdominal tenderness, symptoms have resolved, must consider aortic dissection given chest pain rating to back muscles consider atypical ACS lower suspicion for PE pneumothorax pneumonia, patient has no nausea or vomiting to suggest Boerhaave's, patient has no abdominal discomfort, muscles consider musculoskeletal discomfort. Nonischemic EKG normal sinus rhythm. Holding aspirin until CTA results, will perform serial troponin BNP basic labs close reassessment of symptoms 19: 40 patient resting comfortably no acute distress. Hemodynamically stable. 2 troponin negative CTA chest abdomen pelvis negative. Patient loaded with remainder of aspirin dose out of precaution. Patient has close follow-up with her building dismantler on Sunday. Home care instructions and strict return precautions given Quality:SDOH Health Related Social Needs: No Data to Display PFSH All Active Problems (Updated 06/27/24 @ 19:41 by Jerald Rodriguez MD) Chest pain (Acute) Essential tremor (Acute) Lumbosacral spondylosis without myelopathy (Acute) Pes anserinus bursitis of right knee (Acute) 40 mg Depo-Medrol injection: 07/06/2023 History of total right knee replacement (Acute ~2009) Migraine headache without aura (Acute) Daily headache (Acute) Papilledema (Acute) Vision changes (Acute) Discomfort of right eye (Acute) Elevated AST (SGOT) (Acute) Chest pain (Acute) Traumatic tear of left rotator cuff (Acute ~03/2022) Bronchitis, acute (Acute) Actinic keratoses (Acute) Seborrheic keratoses, inflamed (Acute) Atypical nevus (Acute) Lipoma of arm (Acute) Coronary arteriosclerosis (Acute) Mild intermittent asthma without complication (Acute 11/08/15) Medical History Visual disturbance Uterine leiomyosarcoma Urticaria, idiopathic Solitary lung nodule Post-acute COVID-19 syndrome Onychomycosis Lack of energy Idiopathic osteoarthritis Hypoglycemia Hyperlipidemia Herpesviral vesicular dermatitis Fear of flying Eustachian tube disorder Dizziness and giddiness Contact dermatitis Carpal tunnel syndrome BPPV (benign paroxysmal positional vertigo) Angina pectoris Allergic rhinitis Normal colonoscopy (~01/13/22) MOISES (obstructive sleep apnea) Chronic constipation Rectal bleeding SVT (supraventricular tachycardia) Rectal bleed Screening for colon cancer Left wrist pain Skin lesion COVID-19 Impingement syndrome of left shoulder Bursitis of left shoulder Vulvovaginitis (11/03/13) Arthritis of left acromioclavicular joint s/p distal clavicle excision, 04/28/20 De Quervain's tenosynovitis, left Tendonitis of left rotator cuff Injection: 08/04/2019 Atypical chest pain Pt. states They don't know what it is, Dr. Oglesby thinks its just muscular, and not cardiac related Trochanteric bursitis, left hip S/P ITB tenotomy and bursal debridement DOS: 12/24/18 Dr. Perez Trochanteric bursitis of right hip Seborrheic keratosis (12/15/16) upper back of left arm Complete tear of right rotator cuff (12/03/17) Asthma HTN (hypertension) GERD (gastroesophageal reflux disease) pt. denies this Chronic back pain Hypothyroidism Migraines Depression Elevated cholesterol Overactive bladder Fatigue Colicky RUQ abdominal pain Insomnia Surgical History History of arthroscopy of left shoulder (02/10/22) History of colonoscopy (~01/13/22) Hx of breast biopsy Left rotator cuff tear s/p arthroscopic rotator cuff repair 04/28/20 s/p arthroscopic revision rotator cuff repair: 08/11/2020 Right carpal tunnel syndrome S/P ECTR: 03/23/2020 Left carpal tunnel syndrome S/P ECTR: 03/23/2020 History of bursectomy S/P ITB tenotomy and bursal debridement DOS: 12/24/18 Dr. Perez History of cardiac cath Non-obstructive CAD, Elevated LV end diastolic pressure. no stents Status post right rotator cuff repair Right repeat rotator cuff repair, also has had left RTC repaired. Date of surgery: 04/16/18 Dr. Perez Acquired absence of both cervix and uterus (11/08/15) , Ectopic (~1983) Oophrectomy, Left with hyst Abdominal hysterectomy (~2008) for benign reasons FACET INJECTIONS Excision, Skin Mass (12/15/16) Cholecystectomy (02/01/16) Arthroplasty of knee X2 bilat Family History Mother Essential hypertension Spinal stenosis Stroke Atrial fibrillation Father Essential hypertension Heart disease Myocardial infarction Brother Atrial fibrillation Essential hypertension Prostate cancer Spinal stenosis Social History Smoking/Tobacco Use Status: Former Tobacco Use Quit Date: 09/17/84 Pack-years: 12 Smoking risk assessment performed?: Yes Alcohol Intake: never Drug use: Never Substance use type: does not use Household members: significant other Housing: house Number of Children: 1 Current gender identity: female Seatbelt use: sometimes Do you feel safe at home: Yes Do you feel safe in your relationship?: Yes Additional Social history: Quit smoking 1984. Lives with in [place]. Retired, helps care for grandkids.
[2024-06-27 17:27] LABS: Abs Immature Grans 0.02 10^3/uL (0.0-0.06); Absolute Basophil Count 0.09 10^3/uL (0.0-0.2); Absolute Eosinophil Count 0.21 10^3/uL (0.0-0.7); Absolute Lymphocyte Count 2.77 10^3/uL (1.2-3.4); Absolute Monocyte Count 0.71 10^3/uL (0.1-0.8); Basophils % 1.1 %; Eosinophils % 2.6 %; HCT 45.6 % (36.0-46.0); Immature Grans % 0.2 %; Lymphocytes % 34.2 %; MCH 30.2 pg (27.0-33.0); MCHC 32.9 % (32.0-36.0); MCV 92 fL (80-95); MPV 12.6 fL (8.0-11.0); Monocytes % 8.8 %; Neutrophils % 53.1 %; Platelet Count 197 10^3/uL (130-400); RBC 4.96 10^6/uL (3.93-5.22); RDW 13.2 % (11.7-14.6)
[2024-06-27 17:40] LABS: INR 1.1 (0.9-1.1); PTT Activated 26.9 sec (23.6-32.8); Prothrombin Time 11.3 sec (9.1-11.1)
[2024-06-27 17:52] LABS: ALT 43 U/L (14-59); AST 51 U/L (15-37); Albumin 3.9 g/dL (3.4-5.0); Alkaline Phosphatase 150 U/L (46-116); Anion Gap 12.1 mmol/L (3-11); BUN 11 mg/dL (7-18); Bilirubin, Total 1.05 mg/dL (0.2-1.0); CO2 27.9 mmol/L (21.0-32.0); CREATININE 0.8 mg/dL (0.55-1.02); Calcium 10.3 mg/dL (8.5-10.1); Chloride 103 mmol/L (98-107); Estimated GFR 82.23 (mL/min/1.73m2); Glucose 103 mg/dL (74-106); NT-proBNP 28 pg/mL (<300); Potassium 3.6 mmol/L (3.5-5.1); Sodium 143 mmol/L (136-145); Total Protein 8.2 g/dL (6.4-8.2); Troponin I 38 ng/L (<or=51)
[2024-06-27] MEDS: Normal Saline - Diluent 50 ML VIAL IJ (18:03)
[2024-06-27] MEDS: Omnipaque 350 MG/ML 100 ML BTL IJ (18:04)
[2024-06-27 18:49] VITALS: PULSE 66; RESP 15
[2024-06-27 18:50] VITALS: PULSE 67; RESP 21
[2024-06-27 18:56] LABS: Troponin I 34 ng/L (<or=51)
[2024-06-27] MEDS: Aspirin 81 MG CHEW 243 MG CH (19:51)
== END 2024-06-27 19:53 | disposition home or self-care (01) ==
PROVIDERS: Emergency Provider Emergency Medicine; PCP Internal Medicine
DX: R07.9 Chest pain, unspecified (principal)
CPT/HCPCS: 36415; 71275; 80053; 93005; 99285; 74174; 83735; 83880; 84484; 85025; 85610; 85730; 93010; 99284; J3490

== ENCOUNTER 2024-08-27 11:51 | Outpatient (CLI) | payer MEDICAID, SELFPAY ==
[2024-08-27] VITALS (18 sets, daily range): BP systolic 143–205; BP diastolic 82–132; PULSE 66–86; RESP 6–20; TEMP 36.6; O2SAT 82–96
[2024-08-27] MEDS: Midazolam 2 MG/2 ML VIAL IVP (13:50)
[2024-08-27] MEDS: fentaNYL 100 MCG/2 ML VIAL IVP ×2 (13:50→13:55)
--- NOTE | 2024-08-27 14:19 | DI.RAD_ITS ---
Exam(s) XR PAIN CLINIC LUMBAR SP 2V EXAM: XR PAIN CLINIC LUMBAR SP 2V CLINICAL HISTORY: Dx: Lumbar Spondylosis. TECHNIQUE: Fluoroscopy was provided for the referring physician for guidance with performing pain cl inic injection procedure. COMPARISON: No exams were available for comparison FINDINGS: Please see procedure note for details. Fluoro time: 66.2 seconds RADIATION DOSE DELIVERED: Gabinor=19.53 mGy
--- NOTE | 2024-08-27 14:22 | PDOC.PAIN ---
Date of service: 08/27/24 Time of Service: 14:23 Pain Managment Procedure Note Procedure Note Procedure Note: PROCEDURE NOTE BILATERAL LUMBAR RADIOFREQUENCY ABLATION Date of Service: August 27, 2024 Patient:? Agatha Yi? Provider:? Ken Jackson DO, MPH Agatha Yi [facility] Bilateral Lumbar Radiofrequency Ablation with the AvAlphaStripes Machine.? Pre Operative Diagnosis: Lumbosacral Spondylosis without Myelopathy ICD-10 M47.816 Post Operative Diagnosis: Same Pre procedure pain; VAS= 8/10 Comments: She last had this procedure on 10/31/23 and had >6 months of 50% pain relief. PROCEDURE: Radiofrequency Ablation of medial branches - bilateral L3, L4, L5 and lateral branches of bilateral S1. Agatha?was interviewed and the medical record was reviewed.? There were no medical, pharmacologic, radiographic or other structural contraindications to attempting fluoroscopically guided BILATERAL Lumbar Radiofrequency Ablation.?Risks and expected side effects as well as potential benefit of the procedure were reviewed with Agatha, and the patient's voiced concerns were addressed.? The printed consent form was signed.? Standard time-out procedure was performed. Agatha was brought into the fluoroscopy suite and positioned into the prone position on the fluoroscopy table and allowed to adjust to a position of comfort. A grounding pad was placed on the left abdomen. The sterile field was prepared using chlorhexidine preparation of the skin and sterile draping. Local anesthesia superficial and deep was provided by local infiltration of 2% lidocaine. A 17g 100 mm radiofrequency introducer needle was placed to the planned anatomic targets guided with intermittent fluoroscopy with a perpendicular approach to terminally place at the junction of the superior articular process and the transverse process of the bilateral L4, L5, the base of the sacral ala on the bilateral for the L5 medial branch nerve and the area between base of the sacral ala to the S1 foramen bilaterally. The stylets were removed and radiofrequency probes with a 4mm active tip were then inserted. Needle tip position of the probes was verified in the AP, oblique, and lateral views. At each site, the medial branch nerve was stimulated at 2 Hz to a maximum 1-2 volts determined to finalize safe needle and electrode placement. The patient was awake and responsive during this portion of the procedure. Each target was anesthetized with 1-2 mL of 2 % Lidocaine for anesthesia for lesioning and then each target was lesioned at 80 degrees Celsius for 2 minutes and 30 seconds. Tissue impedances were noted to be between 250 and 500 Ohms. I did inject 1/4 cc of Depomedrol (40mg/cc) followed by 1 cc of 0.5% Bupivacaine. There was no unusual discomfort expressed by Agatha. The needles were withdrawn without difficulty and bandages placed over the needle placement sites, the patient was observed and was without hemodynamic, neurologic, or allergic reactions. Fluoroscopic images were digitally archived. POST PROCEDURE EVALUATION: IMPRESSION: 1. Summary of procedure. Medication given is documented in the MAR. 2. Follow up plan: Agatha to contact [facility] as needed.?This procedure may be repeated if the patient achieves at least 50% improvement in pain/function for at least 6 months. 3. Estimated Blood Loss: <5 mls 4. Fluoroscopy time: Documented in the EMR. Follow up plans and appointments were discussed with the Agatha. Post procedure instruction was given as documented in nursing documentation and having met discharge criteria, Agatha was [facility] from the [facility]. This advanced procedure uses cooled radiofrequency energy to safely target the sensory nerves responsible for sending pain signals.1 A radiofrequency generator transmits a small current of Radiofrequency energy through an insulated electrode, or probe, placed within tissue. Ionic heating, produced by the friction of charged molecules, thermally deactivates the nerves responsible for sending pain signals to the brain. Radiofrequency energy heats and cools the tissue at the site of pain. Unlike other Radiofrequency procedures, Coolief circulates water through the device while heating nervous tissue to create a larger treatment area, increasing the opportunity to help with pain. This combination targets the pain-transmitting nerves without excessive heating, leading to pain relief. COMMENTS: No apparent complications. Post-procedure pain: VAS= 3/10. I personally completed the entire procedure. KEN JACKSON DO, MPH ABPM&R - Subspecialty board certification in Pain Medicine [facility] [facility]
[2024-08-27] MEDS: Lidocaine 2% Multi-Dose 20 ML VIAL IJ (14:24)
[2024-08-27] MEDS: methylPREDNISolone ACETATE 40 MG/ML VIAL IJ (14:25)
[2024-08-27] MEDS: Bupivacaine 0.5% Pres-Free 10 ML VIAL IJ (14:26)
[2024-08-27] MEDS: Normal Saline Flush 10 ML SYR IVP (14:27)
[2024-08-27] MEDS: Nerve Block Tray 1 EACH MC (14:33)
== END 2024-08-27 11:52 | disposition home or self-care (01) ==
LOC: PC 11:51
PROVIDERS: PCP Internal Medicine; Visit Provider Preventive Medicine Occupational Medicine
DX: M47.816 Spondylosis without myelopathy or radiculopathy, lumbar region (principal)
CPT/HCPCS: 64635; 64636; 72100; J0665; J1010; J2003; J2250; J3010

== ENCOUNTER 2024-11-11 13:56 | Outpatient (CLI) | payer MEDICAID, SELFPAY ==
--- NOTE | 2024-11-11 14:05 | DI.RAD_ITS ---
Exam(s) XR CHEST 2V PA LATERAL EXAM: XR CHEST 2V PA LATERAL CLINICAL HISTORY: Acute cough, R05.1; fatigue, R53.83 TECHNIQUE: 2D digital imaging was performed of the chest. Two images were obtained. PA and lateral views were obtained. COMPARISON: CR,XR XR CHEST 1V IN DI DEPT from 02/17/2024 FINDINGS: MEDIASTINUM: Normal. HEART: Normal. PULMONARY VASCULATURE: Normal. LUNGS: No focal consolidating infiltrates. There is bronchial wall thickening seen bilaterally which can be seen with bronchitis. PLEURAL SPACE: No pleural effusion or pneumothorax. BONE:Within normal limits for the patient's age. OTHER FINDINGS:Normal. IMPRESSION: There is bronchial wall thickening bilaterally which can be seen with bronchitis. No focal consolida ting infiltrates are seen. DATA REPOSITORY: RADIATION DOSE DELIVERED:
== END 2024-11-11 14:16 ==
LOC: DI 13:57
PROVIDERS: PCP Internal Medicine; Visit Provider Student in an Organized Health Care Education/Training Program
DX: R05.1 Acute cough (principal); R53.83 Other fatigue; R91.8 Other nonspecific abnormal finding of lung field
CPT/HCPCS: 71046

== ENCOUNTER 2024-12-19 00:40 | Outpatient (CLI) | payer MEDICAID, SELFPAY ==
--- NOTE | 2024-12-19 09:35 | DI.RAD_ITS ---
Exam(s) XR ABDOMEN FLAT PLATE EXAM: XR ABDOMEN FLAT PLATE CLINICAL HISTORY: URINARY CALCULUS,N20.9. TECHNIQUE: 2D digital imaging was performed. COMPARISON: CR XR ABDOMEN FLAT PLATE from 04/11/2024 FINDINGS: AP supine view the abdomen-pelvis compared to 04/11/2024 There surgical clips in the right upper quadrant again noted from prior cholecystectomy. Bowel gas pattern is nonspecific in the supine position. Phleboliths are again noted in both sides o f the pelvis. No obvious radiopaque calculi over the kidneys in course of the ureters. IMPRESSION: Previous cholecystectomy. Nonspecific bowel gas pattern in the supine position DATA REPOSITORY: RADIATION DOSE DELIVERED:
== END 2024-12-19 01:00 ==
LOC: DI 00:40
PROVIDERS: PCP Student in an Organized Health Care Education/Training Program; Visit Provider Urology
DX: N20.9 Urinary calculus, unspecified (principal)
CPT/HCPCS: 74018

== ENCOUNTER 2025-02-17 01:07 | Outpatient (CLI) | payer MEDICAID, SELFPAY ==
[2025-02-17 08:31] LABS: CREATININE 0.9 mg/dL (0.55-1.02); Estimated GFR 71.39 (mL/min/1.73m2)
[2025-02-17] MEDS: Omnipaque 350 MG/ML 100 ML BTL IJ (10:27)
[2025-02-17] MEDS: Normal Saline - Diluent 50 ML VIAL IJ (10:29)
--- NOTE | 2025-02-17 10:40 | DI.CT_ITS ---
Exam(s) CT ABDOMEN PELVIS W EXAM: CT ABDOMEN PELVIS W CLINICAL HISTORY: Lower abd pain x 2-3 weeks, R10.9; urine symptoms, urinary complaints. TECHNIQUE: Imaging Protocol: Axial computed tomography images with coronal and sagittal reformatted images were created and reviewed CONTRAST MATERIAL: Intravenous: Omnipaque-350 75cc Oral: Yes. Oral contrast was also administered for bowel opacification. COMPARISON: CT ABD PELVIS WITH CONTRAST from 07/21/[address] RENAL COLIC WO from 09/07/[address] RENAL COLIC WO from 09/09/[address] THORAX ABD/PEL CTA from 06/27/2024 FINDINGS: VISUALIZED LUNG BASES: No nodules nor pleural effusions evident. ABDOMEN: There is no ascites. LIVER: There are no focal hepatic lesions evident. No dilated intrahepatic ducts. GALLBLADDER/BILIARY: The gallbladder is again noted be surgically absent. CBD is not dilated. PANCREAS: No evidence of pancreatic mass nor dilatation of the pancreatic duct. SPLEEN: Spleen is not enlarged. No obvious intrasplenic lesions. Splenic and portal veins are paten t. ADRENALS: There are no significant adrenal masses. KIDNEYS:Prominent cyst in left kidney is unchanged. No solid components. Does not require further i nvestigation. Subtle hypodensity in the anterior cortex of the opposite-right kidney noted which was site of a prior benign cyst on CT scan of 2016. This has significantly decreased in size.. No new solid renal masses evident. No calculi. No hydronephrosis nor hydroureter. Urinary bladder is part ially collapsed.. ABDOMINAL AORTA: Abdominal aorta is not enlarged. LYMPH NODES:There is no retroperitoneal nor paraaortic adenopathy. ABDOMINAL WALL: No evidence of significant anterior abdominal wall nor inguinal hernia. GI: The oral contrast has reached the rectum at time of imaging acquisition. There is no evidence of small-bowel obstruction. No free air. There is interposition of the hepatic flexure of the colon b etween the right hepatic lobe and anterior abdominal wall. The appendix exhibits normal diameter wit hout evidence of appendicitis. Below the level of the appendix is a density which has been shown on prior CT scan of 2016 to be the right ovary. There is no true mass at this level. PELVIS: GI: No evidence of appendicitis.No evidence of sigmoid diverticulitis. LYMPH NODES: There is no intrapelvic nor inguinal adenopathy. REPRODUCTIVE: Uterus is surgically absent. Left ovary is not identified. Right ovary exhibit simila r position to previous and age-appropriate. URINARY BLADDER: Partially collapsed and therefore difficult to evaluate. There are no obvious radio paque calculi in the bladder lumen. Mild bladder wall thickening which may be related to under diste nsion. OSSEOUS: No fractures and no significant osseous lesions. Mild disc space narrowing at L5-S1 level. IMPRESSION: 1. Prominent left kidney cyst unchanged. No solid lesions nor calculi in left kidney. 2. Small area anteriorly in the right kidney is site of prior larger cyst which was seen on CT scan o 2015. No new mass seen at this level. No calculi in either kidney and no hydronephrosis. 3. Urinary bladder wall is mildly thickened but this may be exaggerated by under distension of the ur inary bladder here. There are no radiopaque calculi in the bladder lumen. 4. Previous cholecystectomy and hysterectomy. RADIATION DOSE DELIVERED: 649.95mGy.cm Total DLP DATA REPOSITORY: All CT scans at this facility are submitted to the National Radiology Data Registry (NRDR) Dose Index Registry (DIR) with the [employer] (ACR). RADIATION OPTIMIZATION: All CT scans at this facility use at least one of these dose optimization te chniques: automated exposure control; mA and/or kV adjustment per patient size (includes targeted exa ms where dose is matched to clinical indication); or iterative reconstruction.
== END 2025-02-17 01:27 ==
LOC: DI 01:07
PROVIDERS: PCP Student in an Organized Health Care Education/Training Program; Visit Provider Physician Assistant
DX: N28.1 Cyst of kidney, acquired (principal)
CPT/HCPCS: 74177; 82565; J3490

== ENCOUNTER 2025-03-17 13:13 | Outpatient (CLI) | payer MEDICAID, SELFPAY ==
--- NOTE | 2025-03-17 13:00 | DI.RAD_ITS ---
Exam(s) XR SHOULDER RT COMPLETE 2+V EXAM: XR SHOULDER RT COMPLETE 2+V CLINICAL HISTORY: RIGHT SHOULDER PAIN. TECHNIQUE: 2D digital imaging was performed. Five views. COMPARISON: MR MR UPPER JOINT LT WO from 10/01/2023 CR XR CHEST 2V PA LATERAL from 11/11/2024 FINDINGS: BONES: No acute fracture is present. No bony destructive lesion is seen. Metallic anchor in humeral head. Prominent spurring at the undersurface of the acromion. Prior distal clavicular resection. JOINTS: No dislocation present. Glenohumeral joint space is maintained. There is spurring at the margin of the glenoid. SOFT TISSUE: Normal. IMPRESSION: Postsurgical and degenerative changes. DATA REPOSITORY: RADIATION DOSE DELIVERED:
== END 2025-03-17 13:14 | disposition home or self-care (01) ==
LOC: DIORS 13:13
PROVIDERS: PCP Student in an Organized Health Care Education/Training Program; Visit Provider Student in an Organized Health Care Education/Training Program
DX: M25.511 Pain in right shoulder (principal)
CPT/HCPCS: 73030

== ENCOUNTER 2025-04-09 01:08 | Outpatient (CLI) | payer MEDICAID, SELFPAY ==
--- NOTE | 2025-04-09 07:00 | DI.MRI_ITS ---
Exam(s) MR UPPER JOINT RT WO EXAM: MR UPPER JOINT RT WO CLINICAL HISTORY: R SHOULDER PAIN,complete tear rt rotator cuff,m75.121. TECHNIQUE: Multiplanar multisequence MRI was performed. COMPARISON: Plain films 17 March 2025 MRI 04 April 2018. FINDINGS: Exam is somewhat limited by motion. BONES: There is no fracture or contusion pattern. Metallic anchor noted in the humeral head. Postsurgical resection of the distal clavicle. JOINTS:The acromioclavicular joint is normal. The glenohumeral joint is normal. TENDONS: Supraspinatus: prior supraspinatus tendon repair. No visible focal tear or retraction. Infraspinatus: Unremarkable. Subscapularis: Unremarkable. Teres Minor: Unremarkable. Biceps and [place]: Biceps tendon is not visualized. MUSCLES: Unremarkable. No significant muscle atrophy. GLENOID LABRUM: Unremarkable on this noncontrast examination. SOFT TISSUES: Unremarkable. BURSAE: Subacromial and subdeltoid bursae shows small amount of fluid. . IMPRESSION: Status post supraspinatus tendon repair. No evidence of tear. Chronic tear of the biceps tendon a similar appearance to 2018. DATA REPOSITORY:
== END 2025-04-09 01:28 ==
LOC: DI 01:08
PROVIDERS: PCP Student in an Organized Health Care Education/Training Program; Visit Provider Student in an Organized Health Care Education/Training Program
DX: M75.121 Complete rotator cuff tear or rupture of right shoulder, not specified as traumatic (principal)
CPT/HCPCS: 73221

== ENCOUNTER 2025-04-17 06:46 | Day surgery (SDC) | payer MEDICARE, MEDICAID, SELFPAY ==
[2025-04-17 07:00] VITALS: BP 134/77; PULSE 74; RESP 16; TEMP 36.6; O2SAT 98
[2025-04-17] MEDS: Tropicam./Phenyleph. (1/2.5%) 5 ML BTL OS ×3 (07:15→07:31)
--- NOTE | 2025-04-17 08:08 | W.ANESPRE ---
General Info Date of Service Date Performed: 04/17/25 Height: 5 ft 1 in Weight: 78.925 kg Body Mass Index (BMI): 32.8 Surgical Procedure: Operation Date: 04/17/25 08:40 Proposed Procedure Side Surgeon p Cataract Extraction with IOL Implant Left Jerald Olson MD Meds Allergies and Home Medications Allergies Allergy/AdvReac Type Severity Reaction Status Date / Time tetrabenazine Allergy Severe RASH,HIVES Verified 04/17/25 07:09 amoxicillin Allergy Intermediate Skin Rash Verified 04/17/25 07:09 hydrocodone (From Vicodin) Allergy Intermediate PRURITIS Verified 04/17/25 07:09 morphine Allergy Intermediate ITCHY, SICK Verified 04/17/25 07:09 peanut Allergy Intermediate Anaphylaxsi Verified 04/17/25 07:09 s tree nut Allergy Intermediate Anaphylaxsi Verified 04/17/25 07:09 s chlorhexidine Allergy Mild Skin Rash Verified 04/17/25 07:09 adhesive AdvReac Intermediate RASH AND Verified 04/17/25 07:09 SWELLING alcohol (From Mastisol AdvReac Intermediate RASH Verified 04/17/25 07:09 Liquid Adhesive) gum mastic (From Mastisol AdvReac Intermediate RASH Verified 04/17/25 07:09 Liquid Adhesive) methyl salicylate (From AdvReac Intermediate RASH Verified 04/17/25 07:09 Mastisol Liquid Adhesive) storax (From Mastisol Liquid AdvReac Intermediate RASH Verified 04/17/25 07:09 Adhesive) benzoin AdvReac Mild Skin Rash Verified 04/17/25 07:09 cat dander AdvReac Mild WATERY EYES Verified 04/17/25 07:09 milk AdvReac Unknown Diarrhea Verified 04/17/25 07:09 pollen extracts AdvReac Unknown Itching Verified 04/17/25 07:09 dog dander AdvReac WATERY EYES Verified 04/17/25 07:09 RAW FRUIT Allergy Unknown Swelling/Ed Uncoded 04/17/25 07:09 kit DUST AdvReac Unknown itchy eyes Uncoded 04/17/25 07:09 Home Medication ?Medication ?Instructions ?Recorded meclizine 12.5 mg tablet 25 mg PO TID PRN 10/08/13 rosuvastatin 20 mg tablet (Crestor) 40 mg PO DAILY 10/08/13 epinephrine 0.3 mg/0.3 mL 0.3 mg (0.3 mL) IJ PRN PRN 07/21/16 injection, auto-injector Anaphylaxis ##1 ezetimibe 10 mg tablet 10 mg PO DAILY 06/12/21 aspirin 81 mg tablet,delayed 81 mg PO DAILY 12/22/21 release diltiazem HCl 240 mg capsule,24 240 mg PO DAILY 01/09/23 hr,extended release mirabegron 50 mg tablet,extended 50 mg PO DAILY 01/09/23 release 24 hr (Myrbetriq) ibuprofen 800 mg tablet 800 mg PO TID 03/08/23 metformin 500 mg tablet,extended 1,000 mg PO DAILY 02/17/24 release 24 hr citalopram 10 mg tablet (Celexa) 30 mg PO DAILY 04/02/24 fluticasone propionate 50 1 spray intranasal BID 04/02/24 mcg/actuation nasal spray,suspension (Flonase Allergy Relief) celecoxib 100 mg capsule (Celebrex) 200 mg PO BID 08/22/24 losartan 25 mg tablet 25 mg PO DAILY 08/22/24 cholecalciferol (vitamin D3) 25 50,000 mcg PO DAILY 12/17/24 mcg (1,000 unit) chewable tablet (Vitamin D3) levothyroxine 75 mcg tablet 200 mcg PO DAILY 12/17/24 galcanezumab-gnlm 120 mg/mL 120 mg subcut ONCE #1 mL 04/01/25 subcutaneous pen injector (Emgality Pen) acyclovir 200 mg capsule 200 mg PO DIRECTED 04/15/25 hydroxyzine pamoate 100 mg capsule 100 mg PO ONCE 04/16/25 Current Visit Medications: Current Medications Generic Name Dose Route Start Last Admin Trade Name Loraine PRN Reason Stop Dose Admin Acetaminophen 1,000 mg 04/17/25 06:00 Acetaminophen 500 Mg Tab PO 05/17/25 05:59 Q4H PRN PRN Balanced Salt Solution 500 ml 04/17/25 06:00 Balanced Salt Soln.-Plus 500 Ml Bag OP 05/17/25 05:59 DIRECTED [facility] Miscellaneous Medication 0 ml 04/17/25 06:00 Prednisolone 1%, Moxifloxacin 0.5%, Bromfenac 0.09% 5.6ml Btl OS 05/17/25 05:59 DIRECTED [facility] Miscellaneous Medication 0 ml 04/17/25 06:00 04/17/25 07:31 Tropicam./Phenyleph. (1/2.5%) 5 Ml Btl OS 05/17/25 05:59 1 drp DIRECTED [facility] Administration Tetracaine HCl 0 ml 04/17/25 06:00 Tetracaine 0.5% 4 Ml Btl OS 05/17/25 05:59 DIRECTED [facility] PFSH Active Problems Active Problems: Problem Status Onset Code Diabetes Chronic E11.9 Nuclear age-related cataract, left eye Acute H25.12 Essential tremor Acute G25.0 Lumbosacral spondylosis without myelopathy Acute M47.817 Pes anserinus bursitis of right knee Acute M70.51 History of total right knee replacement Acute ~2009 Z96.651 Migraine headache without aura Acute G43.009 Daily headache Acute R51.9 Papilledema Acute H47.10 Vision changes Acute H53.9 Discomfort of right eye Acute H57.11 Elevated AST (SGOT) Acute R74.01 Chest pain Acute R07.9 Traumatic tear of left rotator cuff Acute ~03/2022 S46.012A Bronchitis, acute Acute J20.9 Actinic keratoses Acute L57.0 Seborrheic keratoses, inflamed Acute L82.0 Atypical nevus Acute D22.9 Lipoma of arm Acute D17.20 Coronary arteriosclerosis Acute I25.10 Mild intermittent asthma without complication Acute 11/08/15 J45.20 Medical History Medical History (Updated 04/17/25 @ 07:33 by Mallory Shabazz) Visual disturbance Uterine leiomyosarcoma Urticaria, idiopathic Solitary lung nodule Post-acute COVID-19 syndrome Onychomycosis Lack of energy Idiopathic osteoarthritis Hypoglycemia Hyperlipidemia Herpesviral vesicular dermatitis Fear of flying Eustachian tube disorder Dizziness and giddiness Contact dermatitis Carpal tunnel syndrome BPPV (benign paroxysmal positional vertigo) Angina pectoris Allergic rhinitis Normal colonoscopy (~01/13/22) MOISES (obstructive sleep apnea) Chronic constipation Rectal bleeding pt. denies SVT (supraventricular tachycardia) Dr. Gross last seen 02/2025 Rectal bleed Screening for colon cancer Left wrist pain Skin lesion COVID-19 Impingement syndrome of left shoulder Bursitis of left shoulder Vulvovaginitis (11/03/13) Arthritis of left acromioclavicular joint s/p distal clavicle excision, 8/12/20 De Quervain's tenosynovitis, left Tendonitis of left rotator cuff Injection: 08/04/2019 Atypical chest pain Pt. states They don't know what it is, Dr. Oglesby thinks its just muscular, and not cardiac related Trochanteric bursitis, left hip S/P ITB tenotomy and bursal debridement DOS: 12/24/18 Dr. Perez Trochanteric bursitis of right hip Seborrheic keratosis (12/15/16) upper back of left arm Complete tear of right rotator cuff (12/03/17) Asthma HTN (hypertension) GERD (gastroesophageal reflux disease) pt. denies this Chronic back pain Hypothyroidism Migraines Depression Elevated cholesterol Overactive bladder Fatigue Colicky RUQ abdominal pain Insomnia Medical History Comments:: Mother never did good w/ anesthesia either.HE Surgical History Surgical History (Updated 04/17/25 @ 07:33 by Mallory Shabazz) History of cataract surgery History of arthroscopy of left shoulder (02/10/22) History of colonoscopy (~01/13/22) Hx of breast biopsy Left rotator cuff tear s/p arthroscopic rotator cuff repair 04/28/20 s/p arthroscopic revision rotator cuff repair: 08/11/2020 Right carpal tunnel syndrome S/P ECTR: 03/23/2020 Left carpal tunnel syndrome S/P ECTR: 03/23/2020 History of bursectomy S/P ITB tenotomy and bursal debridement DOS: 12/24/18 Dr. Perez History of cardiac cath Non-obstructive CAD, Elevated LV end diastolic pressure. no stents Status post right rotator cuff repair Right repeat rotator cuff repair, also has had left RTC repaired. Date of surgery: 04/16/18 Dr. Perez Acquired absence of both cervix and uterus (11/08/15) , Ectopic (~1983) Oophrectomy, Left with hyst Abdominal hysterectomy (~2008) for benign reasons FACET INJECTIONS Excision, Skin Mass (12/15/16) Cholecystectomy (02/01/16) Arthroplasty of knee X2 bilat Tobacco Smoking/Tobacco Use Status: Former Tobacco Use Alcohol Alcohol Intake: never Substance Use Substance use: Never Substance use type: does not use Vital Signs and Lab Results Vital Signs Most Recent Vital Signs in EMR: Most Recent Vital Signs Temp Pulse Resp BP Pulse Ox 36.6 C 74 16 134/77 98 04/17/25 07:00 04/17/25 07:00 04/17/25 07:00 04/17/25 07:00 04/17/25 07:00 Point of Care Results Point of Care Results: Finger Stick Blood Glucose 104 04/17/25 07:20 Imaging and Studies Imaging and Studies Study information below may be from another EMR and interpreted by another provider. Please see original notes in EMR for more complete details. EKG Summary: 06/27/24: Exam: Resting ECG Reason for Exam: Chest pain Patient Location: E HR:69 bpm ECG Measurements Heart Rate 69 AXIS WV 197 P 21 QRSd 84 QRS -45 QT 410 T27 QTc 441 Conclusion Sinus rhythm...normal P axis, V-rate 60- 99 Left anterior fascicular block...axis(240,-40), init forces inf Low voltage, precordial leads...precordial leads <1.0mV sinus rhtyhm, left axis, normal intervals, no acute ischemic changes I have reviewed and interpreted ECG and agree with software generated interpretation. Stress Test Summary: 01/11/23: MPI Conclusion Myocardial perfusion is normal. There is no ischemia or evidence of prior infarction Ejection fraction is 80% with normal wall motion Carotid Artery Summary:: FINDINGS: There is mild plaque noted at the level the carotid bulbs and proximal internal carotid arteries bilaterally. However, there are no significantly elevated velocities at these levels. Flow is demonstrated to be antegrade in both vertebral arteries. Anesthesia Assessment and Plan Anesthesia History Personal History: PONV and Delayed Emergence Family History: Other Exercise Tolerance Exercise Tolerance: Metabolic Equivalents<4 Pertinent Negatives Pertinent Negatives: No Symptoms of GERD and No Major Pulmonary Symptoms or Complaints Cardiac & Pulmonary Exam Cardiac Exam: Normal S1/S2 Heart Sounds Pulmonary Exam: Clear Bilateral Breath Sounds Implantable Cardiac Device Does patient have a Pacemaker or an ICD?: No Airway Exam Known Difficult Airway: No Mallampati Class: 4 Mouth Opening: Narrow (< 3cm) Thyromental Distance: Greater than 3 cm Neck Range of Motion: Full ROM Neck Circumference: Thick Teeth Condition: Normal Dentition Airway Comments: patient states she has a chipped tooth that was chipped from a previous surgery in the front top ASA Classification ASA Score: ASA 3 Emergency Case?: No NPO Status NPO Status: NPO Clears >2 hours, Solids >8 hours Anesthesia Plan Resuscitation Status: Full Code Anesthesia Technique: MAC Anesthesia Airway Planned: Natural Airway Monitors Used: Standard Monitors
[2025-04-17 08:14] VITALS: BMI 32.8
[2025-04-17] MEDS: Duovisc Viscoelastic System EACH 1 EACH (09:53)
[2025-04-17] MEDS: Moxifloxacin-PF 1 MG/ML VIAL (09:54)
[2025-04-17] MEDS: Lidocaine 1% Pres-Free 5 ML VIAL (09:54)
[2025-04-17] MEDS: Phenylephrine/Lidocaine (15/10) MG/ML 1 ML VIAL (09:55)
[2025-04-17] MEDS: Povidone-Iodine Ophth 30 ML BTL (09:56)
[2025-04-17] MEDS: Balanced Salt Soln.-PLUS 500 ML BAG OP (09:56)
[2025-04-17] MEDS: Prednisolone 1%, Moxifloxacin 0.5%, Bromfenac 0.09% 5.6ML BTL OS (09:57)
[2025-04-17] MEDS: Tetracaine 0.5% 4 ML BTL OS (09:57)
[2025-04-17 10:18] VITALS: BP 113/58; PULSE 72; RESP 18; TEMP 36.3; O2SAT 94
--- NOTE | 2025-04-17 10:18 | W.PM.DSUDISC ---
Date of service: 04/17/25 Discharge Plan Disposition Patient Disposition: Home Discharge Details Attending Provider: Jerald Olson Primary Care Provider: Lisset Garza Home Meds and New Rx's Prescriptions: No Action Emgality Pen 120 mg/mL pen injector 120 mg subcut ONCE Qty: 1 11RF cholecalciferol (vitamin D3) [Vitamin D3] 25 mcg (1,000 unit) tablet,chewable 50,000 mcg PO DAILY diltiazem HCl 240 mg capsule,extended release 24 hr 240 mg PO DAILY fluticasone propionate [Flonase Allergy Relief] 50 mcg/actuation spray,suspension 1 spray intranasal BID Rx Instructions: administer into each nostril meclizine 12.5 MG tablet 25 mg PO TID PRN Patient Comments: prn rosuvastatin [Crestor] 20 MG tablet 40 mg PO DAILY aspirin 81 mg tablet,delayed release (DR/EC) 81 mg PO DAILY ibuprofen 800 mg tablet 800 mg PO TID citalopram [Celexa] 10 mg tablet 30 mg PO DAILY Patient Comments: 10 mg tab and 20 mg tab total 30. celecoxib [Celebrex] 100 mg capsule 200 mg PO BID losartan 25 mg tablet 25 mg PO DAILY levothyroxine 75 mcg tablet 200 mcg PO DAILY epinephrine 0.3 MG/SYR auto-injector 0.3 mg IJ PRN PRN (Reason: Anaphylaxis) Qty: 1 0RF mirabegron [Myrbetriq] 50 mg Tablet Extended Release 24 Hr 50 mg PO DAILY metformin 500 mg tablet extended release 24 hr 1,000 mg PO DAILY Patient Comments: TAKE ONE TABLET BY MOUTH EVERY DAY acyclovir 200 mg capsule 200 mg PO DIRECTED Patient Comments: TAKE 1 CAPSULE BY MOUTH EVERY 4 TO 6 HOURS NEEDED hydroxyzine pamoate 100 mg capsule 100 mg PO ONCE Patient Comments: prior to cataract surgery per PCP ezetimibe 10 mg tablet 10 mg PO DAILY Patient Comments: TAKE 1 TABLET BY MOUTH EVERY DAY Discharge Instructions Stand Alone Forms: [facility] Post-Op [facility] [place] ([facility]) Discharge Orders Discharge Orders: Discharge Order (Routine); Ordered 04/17/25 Ordered By: Jerald Olson DS: Diagnosis Discharge Diagnosis (1) Nuclear age-related cataract, left eye: Status: Resolved
--- NOTE | 2025-04-17 10:19 | ROE_ITS ---
Operative Note Operative Note PRE-OP DIAGNOSIS: Nuclear cataract, left eye POST-OP DIAGNOSIS: same PROCEDURE: Cataract extraction using phacoemulsification with intraocular lens implant, left eye SURGEON: Jerald Olson ANESTHESIA TYPE: Local By Surgeon and MAC Refer to Anesthesia Record PATHOLOGY: none sent COMPLICATIONS: None Patient was transported to: same day Patient's condition: stable Implants: Jerson Clareon [id number] Indications: Progressive decreased vision due to cataract, left eye Procedure Description: CATARACT SURGERY OPERATIVE REPORT PREOPERATIVE DIAGNOSIS: Nuclear cataract, left eye POSTOPERATIVE DIAGNOSIS: Same OPERATION: Cataract extraction using phacoemulsification with posterior chamber intraocular lens implant, left eye. IOL: IOL Record Clerk Salesperson/Model: Jerson Clareon [id number] IOL Power: + 21.5 diopters IOL Serial Number: [id number] Optic Diameter: 6.0mm Haptic/Overall Diameter: 13.0mm PHACO INFO: Jerson [employer]comurion Vision System with OZil and Active Fluidics Cumulative Dispersed Energy (CDE): 5.99 seconds SURGEON: Jerald Olson MD, LE[place] ANESTHESIA: Monitored Anesthesia Care (MAC), with local sub-tenon's anesthetic infiltration COMPLICATIONS: None SPECIMENS: None INDICATIONS FOR PROCEDURE: The patient is a 64-year-old lady with history of diminished visual acuity in her left eye secondary to the development of nuclear cataract. She has previously undergone cataract surgery in the right eye several years ago. She now presents for cataract surgery in the left eye. See office notes for detailed information. PROCEDURE: The correct surgical eye was identified and marked as the left eye and the pupil was dilated in the preoperative area using mydriatics and cycloplegics. The dilated pupil size was 8.0 mm. Oral sedation was administered in the form of an Imprimis MKO Melt (midazolam 3mg/ketamine 25mg/ondansetron 2mg). The patient was brought to the operating room where cardiopulmonary monitoring was instituted and surgical time-out was performed, confirming the correct operative eye and IOL power. Topical anesthesia was administered and ophthalmic povidone-iodine 5% was instilled into the conjunctival fornices. The finesse-ocular area was prepped with Betadine 10% solution and draped in the usual sterile fashion for intraocular surgery, including an aperture drape. A Tegaderm transparent film dressing was cut in half and used to cover the lashes and lid margins. Care was taken to sequester the lashes and lid margins under the Tegaderm dressing. A lid speculum was placed between the lids of the operative eye and the Jerson LuxOR Revalia operating microscope was maneuvered into position. Gloria scissors were then used to make a conjunctival buttonhole approximately 6mm posterior to the limbus in the inferonasal quadrant. Blunt dissection was carried out to expose bare sclera, and a blunt-tipped sub-tenon?s anesthesia cannula was introduced and passed posteriorly along the globe where non- preserved plain lidocaine was injected into posterior sub-Tenon?s space. A sideport knife was used to make a paracentesis port. Intraocular phenylephrine/lidocaine was injected into the anterior chamber. The anterior chamber was then filled with viscoelastic. A keratome knife was used construct a two-plane clear corneal tunnel extending 2.0mm into clear cornea. A flap was raised on the anterior capsule and capsulorhexis forceps were used to complete a continuous curvilinear capsulorhexis of 5.0 mm. Balanced salt solution was then used to perform cortical cleaving hydrodissection and nuclear hydrodelineation until the lens could be freely rotated within the capsular bag. The lens nucleus was then disassembled and removed within the capsular bag and iris plane using phacoemulsification. Residual cortical material was removed using the irrigation/aspiration handpiece. The posterior capsule was carefully polished to remove as much residual lens epithelial cells as safely possible. The capsular bag was then inflated and the anterior chamber deepened with viscoelastic. The lens implant described above was inserted into the capsular bag using the Jerson Autonome Injector. A Kuglen hook was used to dial the IOL into position. Residual viscoelastic was then removed first from posterior to the IOL, then from the anterior chamber using the I/A handpiece. The lens implant was noted to center nicely within the capsular bag. The incisions were stromally hydrated, and the anterior chamber was reformed using BSS. Then 0.5cc of moxifloxacin 1.0mg/ml were injected into the capsular bag and anterior chamber. The incisions were checked with a Weck spear and found to be secure. Several drops of ophthalmic povidone-iodine 5% were then applied to the eye followed by two drops of combination steroid/NSAID/antibiotic solution. The drapes were removed and a clear plastic protective eye shield was placed over the eye. The patient was then returned to Same Day Surgery in stable condition. Date of Procedure: 04/17/25
--- NOTE | 2025-04-17 10:27 | W.ANESPOSTOP ---
Postoperative Evaluation Date, Time and Location Date Performed: 04/17/25 Time Performed: 10:25 Patient Location: Day Surgery Unit Vital Signs Most Recent Imported Vital Signs: Most Recent Vital Signs Temp Pulse Resp BP Pulse Ox 36.3 C L 72 18 113/58 L 94 04/17/25 10:25 04/17/25 10:25 04/17/25 10:25 04/17/25 10:04/17/25 10:25 Pain Score Most Recent Pain Score: Most Recent Pain Score Pain Level 0 04/17/25 10:25 Assessment Mental Status: Awake (Alert & Oriented to Patient Baseline) Airway and Respiratory Function: Patent airway with normal (patient baseline) respiratory exam Cardiovascular Function: Hemodynamically Stable Hydration Status: Adequately Hydrated Nausea & Vomiting: No Nausea or Vomiting Pain: Pt. Denies Any Pain Peripheral Nerve Block: Patient did not receive a nerve block
[2025-04-17 10:49] VITALS: BP 100/62; PULSE 74; RESP 18; TEMP 36.5; O2SAT 93
== END 2025-04-17 10:55 | disposition home or self-care (01) ==
PROVIDERS: PCP Student in an Organized Health Care Education/Training Program; Visit Provider Ophthalmology
PROC: (CPT 66984; principal; 2025-04-17 08:30)
DX: H25.12 Age-related nuclear cataract, left eye (principal); Z98.41 Cataract extraction status, right eye
CPT/HCPCS: 66984; 00123; V2632; J2003

== ENCOUNTER 2025-05-21 12:09 | Outpatient (CLI) | payer MEDICARE, MEDICAID, SELFPAY ==
[2025-05-21 11:34] LABS: Hemoglobin A1C 5.8 % (<5.7)
[2025-05-21 12:19] LABS: ALT 54 U/L (14-59); AST 45 U/L (15-37); Albumin 3.7 g/dL (3.4-5.0); Alkaline Phosphatase 132 U/L (46-116); Anion Gap 9.3 mmol/L (3-11); BUN 8 mg/dL (7-18); Bilirubin, Total 1.2 mg/dL (0.2-1.0); CO2 27.7 mmol/L (21.0-32.0); Calcium 9.5 mg/dL (8.5-10.1); Chloride 105 mmol/L (98-107); Estimated GFR 95.92 (mL/min/1.73m2); Glucose 101 mg/dL (74-106); Potassium 3.9 mmol/L (3.5-5.1); Sodium 142 mmol/L (136-145); TSH 1.01 uIU/mL (0.36-3.74); Total Protein 7.6 g/dL (6.4-8.2); Vitamin D 25 Total 36 ng/mL (30-100)
== END 2025-05-21 12:10 | disposition home or self-care (01) ==
LOC: LBO 12:10
PROVIDERS: PCP Student in an Organized Health Care Education/Training Program; Visit Provider Student in an Organized Health Care Education/Training Program
DX: Z01.818 Encounter for other preprocedural examination (principal)
CPT/HCPCS: 36415; 80053; 82306; 83036; 84443

== ENCOUNTER 2025-06-04 04:01 | Outpatient (CLI) | payer MEDICARE, MEDICAID, SELFPAY ==
--- NOTE | 2025-06-04 07:00 | DI.RAD_ITS ---
Exam(s) RF JOINT INJ. FLUORO GUID RAD EXAM: RF JOINT INJ. FLUORO GUID RAD CLINICAL HISTORY: L SHOULDER PAIN,traumatic tear lt rotator cuff, s46.012a. The Patient has had persistent left pain. Noninvasive measures have been tried. To serve as both diagnostic and therapeutic, an injection under fluoroscopy was recommended. The risks of the procedure were discussed with their Orthopedic provider and the patient elected to proceed. TECHNIQUE: 2D and realtime digital imaging was performed. CONTRAST MATERIAL: Water soluble contrast was utilized. COMPARISON: No exams were available for comparison FINDINGS: The Patient was greeted in the fluoroscopy room. The correct side was identified and the consent was reviewed with the patient and was signed. The patient was properly positioned on the fluoroscopy table. The left shoulderwas then prepped and draped. The left shoulder injection starting point was i dentified by the bony landmarks and fluoroscopy. The skin and soft tissue in the tract of the injection was anesthetized with 0.25% Bupivacaine. A spinal needle was then inserted into the glenohumeral joint joint at the level of the left shoulder under fluoroscopic guidance. A small amount of Omnipaque solution was injected to confirm intraarticular placement. Once confirmed, the left shoulder was injected with 5cc of a solution containing 0.25% Bupivacaine and 40 mg of Depo-Medrol. A bandaid was placed on the injection site. The patient tolerated the procedure well and left the department in good condition. IMPRESSION: Successful left shoulder injection. RADIATION DOSE DELIVERED: Ka,r=3.82 mGy
[2025-06-04] MEDS: Bupivacaine 0.25% Pres-Free 10 ML VIAL IJ (15:29)
[2025-06-04] MEDS: methylPREDNISolone ACETATE 40 MG/ML VIAL IM (15:30)
[2025-06-04] MEDS: Omnipaque 300 MG/ML 10 ML BTL IJ (16:01)
== END 2025-06-04 04:21 ==
LOC: DI 04:01
PROVIDERS: PCP Student in an Organized Health Care Education/Training Program; Visit Provider Student in an Organized Health Care Education/Training Program
DX: S46.012A Strain of muscle(s) and tendon(s) of the rotator cuff of left shoulder, initial encounter (principal); X58.XXXA Exposure to other specified factors, initial encounter
CPT/HCPCS: 20610; 77002; J0665; J1010

== ENCOUNTER 2025-06-17 07:10 | Day surgery (SDC) | payer MEDICARE, MEDICAID, SELFPAY ==
[2025-06-17 07:27] VITALS: BP 119/82; PULSE 79; RESP 16; TEMP 36.4; O2SAT 97
[2025-06-17] MEDS: Lactated Ringers 1,000 ML 80 ML IV (07:54)
--- NOTE | 2025-06-17 08:07 | W.ANESPRE ---
General Info Date of Service Date Performed: 06/17/25 Height: 5 ft Weight: 77.8 kg Body Mass Index (BMI): 33.5 Surgical Procedure: Operation Date: 06/17/25 08:35 Proposed Procedure Side Surgeon bryn Gomez MD Meds Allergies and Home Medications Allergies Allergy/AdvReac Type Severity Reaction Status Date / Time tetrabenazine Allergy Severe RASH,HIVES Verified 06/17/25 07:17 amoxicillin Allergy Intermediate Skin Rash Verified 06/17/25 07:17 hydrocodone (From Vicodin) Allergy Intermediate PRURITIS Verified 06/17/25 07:17 morphine Allergy Intermediate ITCHY, SICK Verified 06/17/25 07:17 peanut Allergy Intermediate Anaphylaxsi Verified 06/17/25 07:17 s tree nut Allergy Intermediate Anaphylaxsi Verified 06/17/25 07:17 s chlorhexidine Allergy Mild Skin Rash Verified 06/17/25 07:17 adhesive AdvReac Intermediate RASH AND Verified 06/17/25 07:17 SWELLING alcohol (From Mastisol AdvReac Intermediate RASH Verified 06/17/25 07:17 Liquid Adhesive) gum mastic (From Mastisol AdvReac Intermediate RASH Verified 06/17/25 07:17 Liquid Adhesive) methyl salicylate (From AdvReac Intermediate RASH Verified 06/17/25 07:17 Mastisol Liquid Adhesive) storax (From Mastisol Liquid AdvReac Intermediate RASH Verified 06/17/25 07:17 Adhesive) benzoin AdvReac Mild Skin Rash Verified 06/17/25 07:17 cat dander AdvReac Mild WATERY EYES Verified 06/17/25 07:17 milk AdvReac Unknown Diarrhea Verified 06/17/25 07:17 pollen extracts AdvReac Unknown Itching Verified 06/17/25 07:17 dog dander AdvReac WATERY EYES Verified 06/17/25 07:17 RAW FRUIT Allergy Unknown Swelling/Ed Uncoded 06/17/25 07:17 kit DUST AdvReac Unknown itchy eyes Uncoded 06/17/25 07:17 Home Medication ?Medication ?Instructions ?Recorded meclizine 12.5 mg tablet 25 mg PO TID PRN 10/08/13 rosuvastatin 20 mg tablet (Crestor) 40 mg PO DAILY 10/08/13 epinephrine 0.3 mg/0.3 mL 0.3 mg (0.3 mL) IJ PRN PRN 07/21/16 injection, auto-injector Anaphylaxis ##1 ezetimibe 10 mg tablet 10 mg PO DAILY 06/12/21 aspirin 81 mg tablet,delayed 81 mg PO DAILY 12/22/21 release diltiazem HCl 240 mg capsule,24 240 mg PO DAILY 01/09/23 hr,extended release mirabegron 50 mg tablet,extended 50 mg PO DAILY 01/09/23 release 24 hr (Myrbetriq) ibuprofen 800 mg tablet 800 mg PO TID 03/08/23 metformin 500 mg tablet,extended 1,000 mg PO DAILY 02/17/24 release 24 hr citalopram 10 mg tablet (Celexa) 30 mg PO DAILY 04/02/24 fluticasone propionate 50 1 spray intranasal BID 04/02/24 mcg/actuation nasal spray,suspension (Flonase Allergy Relief) celecoxib 100 mg capsule (Celebrex) 200 mg PO BID 08/22/24 losartan 25 mg tablet 25 mg PO DAILY 08/22/24 cholecalciferol (vitamin D3) 25 50,000 mcg PO DAILY 12/17/24 mcg (1,000 unit) chewable tablet (Vitamin D3) levothyroxine 75 mcg tablet 200 mcg PO DAILY 12/17/24 galcanezumab-gnlm 120 mg/mL 120 mg subcut ONCE #1 mL 04/01/25 subcutaneous pen injector (Emgality Pen) acyclovir 200 mg capsule 200 mg PO DIRECTED 04/15/25 bisacodyl 5 mg tablet,delayed 5 mg PO ONCE #4 tabs 05/21/25 release (Dulcolax (bisacodyl)) polyethylene glycol 3350 17 17 g PO ONCE #238 grams 05/21/25 gram/dose oral powder Current Visit Medications: Current Medications Generic Name Dose Route Start Last Admin Trade Name Freq PRN Reason Stop Dose Admin Ringer's Solution 1,000 mls @ 80 mls/hr 06/17/25 06:00 06/17/25 07:54 IV 06/17/25 23:59 80 mls/hr INFUSION MAJO Administration IV Miscellaneous Supplies 1 each 06/17/25 06:00 Iv Access IV 06/17/25 23:59 DIRECTED MAJO Sodium Chloride 0 ml 06/17/25 06:00 Normal Saline Flush 10 Ml Syr IV 06/17/25 23:59 PRN PRN Sodium Chloride 0 ml 06/17/25 06:00 Normal Saline 10 Ml Vial IJ 06/17/25 23:59 DIRECTED PRN Sterile Water 0 ml 06/17/25 06:00 Water,Injection,Sterile 10 Ml Vial IJ 06/17/25 23:59 DIRECTED PRN PFSH Active Problems Active Problems: Problem Status Onset Code Change in bowel habit Acute R19.4 No-show for appointment Acute Z91.199 Diabetes Chronic E11.9 Nuclear age-related cataract, left eye Resolved H25.12 Essential tremor Acute G25.0 Lumbosacral spondylosis without myelopathy Acute M47.817 Pes anserinus bursitis of right knee Acute M70.51 History of total right knee replacement Acute ~2009 Z96.651 Migraine headache without aura Acute G43.009 Daily headache Acute R51.9 Papilledema Acute H47.10 Vision changes Acute H53.9 Discomfort of right eye Acute H57.11 Elevated AST (SGOT) Acute R74.01 Chest pain Acute R07.9 Traumatic tear of left rotator cuff Acute ~03/2022 S46.012A Bronchitis, acute Acute J20.9 Actinic keratoses Acute L57.0 Seborrheic keratoses, inflamed Acute L82.0 Atypical nevus Acute D22.9 Lipoma of arm Acute D17.20 Coronary arteriosclerosis Acute I25.10 Mild intermittent asthma without complication Acute 11/08/15 J45.20 Medical History Medical History KOROMA (nonalcoholic steatohepatitis) Visual disturbance Uterine leiomyosarcoma Urticaria, idiopathic Solitary lung nodule Post-acute COVID-19 syndrome Onychomycosis Lack of energy Idiopathic osteoarthritis Hypoglycemia Hyperlipidemia Herpesviral vesicular dermatitis Fear of flying Eustachian tube disorder Dizziness and giddiness Contact dermatitis Carpal tunnel syndrome BPPV (benign paroxysmal positional vertigo) Angina pectoris Allergic rhinitis Normal colonoscopy (~01/13/22) MOISES (obstructive sleep apnea) Chronic constipation Rectal bleeding pt. denies SVT (supraventricular tachycardia) Dr. Gross last seen 02/2025 Rectal bleed pt. denies Screening for colon cancer Left wrist pain Skin lesion COVID-19 Impingement syndrome of left shoulder Bursitis of left shoulder Vulvovaginitis (11/03/13) Arthritis of left acromioclavicular joint s/p distal clavicle excision, 04/28/20 De Quervain's tenosynovitis, left Tendonitis of left rotator cuff Injection: 08/04/2019 Atypical chest pain Pt. states They don't know what it is, Dr. Oglesby thinks its just muscular, and not cardiac related Trochanteric bursitis, left hip S/P ITB tenotomy and bursal debridement DOS: 12/24/18 Dr. Perez Trochanteric bursitis of right hip Seborrheic keratosis (12/15/16) upper back of left arm Complete tear of right rotator cuff (12/03/17) Asthma HTN (hypertension) GERD (gastroesophageal reflux disease) pt. denies this Chronic back pain Hypothyroidism Migraines Depression Elevated cholesterol Overactive bladder Fatigue Colicky RUQ abdominal pain Insomnia Medical History Comments:: Mother never did good w/ anesthesia either.HE Surgical History Surgical History Hx of cholecystectomy History of cataract surgery History of arthroscopy of left shoulder (02/10/22) History of colonoscopy (~01/13/22) Hx of breast biopsy Left rotator cuff tear s/p arthroscopic rotator cuff repair 04/28/20 s/p arthroscopic revision rotator cuff repair: 08/11/2020 Right carpal tunnel syndrome S/P ECTR: 03/23/2020 Left carpal tunnel syndrome S/P ECTR: 03/23/2020 History of bursectomy S/P ITB tenotomy and bursal debridement DOS: 12/24/18 Dr. Perez History of cardiac cath Non-obstructive CAD, Elevated LV end diastolic pressure. no stents Status post right rotator cuff repair Right repeat rotator cuff repair, also has had left RTC repaired. Date of surgery: 04/16/18 Dr. Perez Acquired absence of both cervix and uterus (11/08/15) , Ectopic (~1983) Oophrectomy, Left with hyst Abdominal hysterectomy (~2008) for benign reasons FACET INJECTIONS Excision, Skin Mass (12/15/16) Cholecystectomy (02/01/16) Arthroplasty of knee X2 bilat Tobacco Smoking/Tobacco Use Status: Former Tobacco Use Passive smoking exposure: No Alcohol Alcohol Intake: never Substance Use Substance use: Never Substance use type: does not use Vital Signs and Lab Results Vital Signs Most Recent Vital Signs in EMR: Most Recent Vital Signs Temp Pulse Resp BP Pulse Ox 36.4 C L 79 16 119/82 97 06/17/25 07:27 06/17/25 07:27 06/17/25 07:27 06/17/25 07:27 06/17/25 07:27 Point of Care Results Point of Care Results: Finger Stick Blood Glucose 93 06/17/25 07:20 Lab Results Complete Metabolic Panel: Sodium, (136-145) 142 mmol/L 05/21/25, 10:53 Potassium, (3.5-5.1) 3.9 mmol/L 05/21/25, 10:53 Chloride, (98-107) 105 mmol/L 05/21/25, 10:53 Carbon Dioxide, (21.0-32.0) 27.7 mmol/L 05/21/25, 10:53 BUN, (7-18) 8 mg/dL 05/21/25, 10:53 Creatinine, (0.55-1.02) 0.7 mg/dL 05/21/25, 10:53 Est GFR (CKD-EPI 2020), (mL/min/1.73m2) 95.92 05/21/25, 10:53 Calcium, (8.5-10.1) 9.5 mg/dL 05/21/25, 10:53 Albumin, (3.4-5.0) 3.7 g/dL 05/21/25, 10:53 Glucose, (74-106) 101 mg/dL 05/21/25, 10:53 Hemoglobin A1c, (<5.7) 5.8 % H 05/21/25, 10:53 Liver Function Panel: ALT, (14-59) 54 U/L 05/21/25, 10:53 AST, (15-37) 45 U/L H 05/21/25, 10:53 Thyroid Panel: TSH, (0.36-3.74) 1.01 uIU/mL 05/21/25, 10:53 Imaging and Studies Imaging and Studies Study information below may be from another EMR and interpreted by another provider. Please see original notes in EMR for more complete details. EKG Summary: 06/27/24: Exam: Resting ECG Reason for Exam: Chest pain Patient Location: E HR:69 bpm ECG Measurements Heart Rate 69 AXIS DC 197 P 21 QRSd 84 QRS -45 QT 410 T27 QTc 441 Conclusion Sinus rhythm...normal P axis, V-rate 60- 99 Left anterior fascicular block...axis(240,-40), init forces inf Low voltage, precordial leads...precordial leads <1.0mV sinus rhtyhm, left axis, normal intervals, no acute ischemic changes I have reviewed and interpreted ECG and agree with software generated interpretation. Stress Test Summary: 01/11/23: MPI Conclusion Myocardial perfusion is normal. There is no ischemia or evidence of prior infarction Ejection fraction is 80% with normal wall motion Carotid Artery Summary:: FINDINGS: There is mild plaque noted at the level the carotid bulbs and proximal internal carotid arteries bilaterally. However, there are no significantly elevated velocities at these levels. Flow is demonstrated to be antegrade in both vertebral arteries. Anesthesia Assessment and Plan Anesthesia History Personal History: No History of Anesthesia Complications Family History: No Family History of Anesthesia Complications and Other Exercise Tolerance Exercise Tolerance: Metabolic Equivalents>4 Cardiac & Pulmonary Exam Cardiac Exam: Normal S1/S2 Heart Sounds Pulmonary Exam: Clear Bilateral Breath Sounds Implantable Cardiac Device Does patient have a Pacemaker or an ICD?: No Airway Exam Known Difficult Airway: No Mallampati Class: 4 Mouth Opening: Narrow (< 3cm) Thyromental Distance: Greater than 3 cm Neck Range of Motion: Full ROM Neck Circumference: Thick Teeth Condition: Normal Dentition Airway Comments: patient states she has a chipped tooth that was chipped from a previous surgery in the front top ASA Classification ASA Score: ASA 3 Emergency Case?: No NPO Status NPO Status: NPO Clears >2 hours, Solids >8 hours Anesthesia Plan Resuscitation Status: Full Code Anesthesia Technique: General Anesthesia Airway Planned: Natural Airway Monitors Used: Standard Monitors
[2025-06-17 08:09] VITALS: BMI 33.5
[2025-06-17 08:47] VITALS: BP 130/81; PULSE 62; RESP 16; TEMP 36.4; O2SAT 97
--- NOTE | 2025-06-17 08:48 | W.COLOREPORT ---
Date of service: 06/17/25 Time of Service: 08:49 Colonoscopy Report Date of procedure: 06/17/25 Pre-op diagnosis general: Change in bowel habits Post-op diagnosis procedure note: same Procedure: Diagnostic colonoscopy Surgeon: Bella Gomez Anesthesia Type: General:No Airway Estimated blood loss (mL): 1 Pathology: none sent Complications: None Disposition: PACU Indications: Patient is a 65-year-old female who presents for a diagnostic colonoscopy. She notes that she has had a recent change in the caliber of her stool. She denies any blood in her stool. Her most recent colonoscopy was in 2021 which was noted to be normal. Prep: Miralax/Dulcolax Procedure Start Time: 08:24 Procedure End Time: 08:41 Retraction Time: 9 Findings: Evidence of external hemorrhoids on exam. Normal colonoscopy without concerning findings. Procedure Description: Informed consent was obtained. The patient was taken to the endoscopy suite and placed in the left lateral decubitus position. After adequate intravenous sedation, digital rectal exam was performed, which was normal. There was evidence of external hemorrhoids. A colonoscope was inserted into the rectum and negotiated to the cecum. The ileocecal valve and appendiceal orifice were identified. The entire colonic mucosa was then carefully circumferentially inspected upon slow withdrawal of the scope. The cecum, ascending, transverse, and descending colon were all normal. Retroflexion in the rectum was unremarkable. The patient tolerated the procedure well with no complications. Postoperatively, the patient was transferred to the recovery room in stable condition. [place] Bowel Prep [place] Bowel Prep Right Colon: 3 Left Colon: 3 Transverse Colon: 3 Total Score: 9
--- NOTE | 2025-06-17 08:55 | W.ANESPOSTOP ---
Postoperative Evaluation Date, Time and Location Date Performed: 06/17/25 Time Performed: 08:55 Patient Location: Day Surgery Unit Vital Signs Most Recent Imported Vital Signs: Most Recent Vital Signs Temp Pulse Resp BP Pulse Ox 36.4 C L 62 16 130/81 97 06/17/25 08:47 06/17/25 08:47 06/17/25 08:47 06/17/25 08:47 06/17/25 08:47 Pain Score Most Recent Pain Score: Most Recent Pain Score Pain Level 0 06/17/25 08:47 Assessment Mental Status: Awake (Alert & Oriented to Patient Baseline) Airway and Respiratory Function: Patent airway with normal (patient baseline) respiratory exam Cardiovascular Function: Hemodynamically Stable Hydration Status: Adequately Hydrated Nausea & Vomiting: No Nausea or Vomiting Pain: Pt. Denies Any Pain Peripheral Nerve Block: Patient did not receive a nerve block
[2025-06-17 09:09] VITALS: BP 152/82; PULSE 60; RESP 16; TEMP 36.4; O2SAT 98
== END 2025-06-17 09:25 | disposition home or self-care (01) ==
PROVIDERS: PCP Student in an Organized Health Care Education/Training Program; Visit Provider Student in an Organized Health Care Education/Training Program
PROC: 0DJD8ZZ Inspection of Lower Intestinal Tract, Via Natural or Artificial Opening Endoscopic (ICD-10-PCS; CPT 45378; principal; 2025-06-17 08:30)
DX: R19.4 Change in bowel habit (principal); K64.4 Residual hemorrhoidal skin tags
CPT/HCPCS: 45378; J2003; J2704